=== PATIENT | male | born 1950 | race Caucasian/White ===

== ENCOUNTER 2022-07-14 14:06 | Emergency (ER) | payer MEDICARE ==
--- OUTSIDE RECORDS SUMMARY | 2022-07-14 14:25 | XMS REPORT | Continuity of Care Document ---
:1950 Author Organization [facility] t Address [address] [facility]. [address] [place] [address] Support Name Relationship Address Phone Gretta Joe Spouse [address] [place] [address] Gretta Joe Spouse [phone] [place] [address] Gretta Joe Spouse [address] [place] [address] GRETTA JOE X [address] [phone] [place] [address] ABHIJEET ARVIZU L X [address] [place] [address] L Abhijeet Arvizu Spouse [address] [place] [address] Care Team Providers Name Role Phone Sunshine GARCIA, Jose Juan Canales Primary Care Physician [phone] NEHA SEN Attending Clinician Unavailable JOON WOODY K.HMaria A Attending Clinician Unavailable LUIS BURGESS Attending Clinician Unavailable Sandra Goff Attending Clinician Aditya GARCIA, Luis Attending Clinician Annalise GARCIA, Joon ButtsHMaria A Attending Clinician Kassidy GARCIA, Janay Attending Clinician Quang GARCIA, Jackie Attending Clinician Olivier GARCIA PhD, Basilio Alexis Attending Clinician Jose Juan Gonsalez MD Attending Clinician Doctor Unassigned, Holstein Attending Clinician Unavailable Ogbechie_L Attending Clinician Unavailable Juvencio Luna MD Attending Clinician CATIE HILL Attending Clinician Unavailable CATIE HILL Attending Clinician Unavailable 2, Adc Lab Attending Clinician Unavailable JOSE JUAN GONSALEZ Attending Clinician Unavailable Jessica Hewitt MD Attending Clinician RADIOLOGY Attending Clinician Unavailable Radiology Attending Clinician Unavailable [facility] Fercho Erazo Attending Clinician [phone] GERA FREEMAN Attending Clinician Unavailable Gus Owens MD Attending Clinician GUS OWENS Attending Clinician Unavailable Pete JAVA SWING DEVELOPER- Gera GAINES Attending Clinician [phone] PENNY HALE Attending Clinician Unavailable Val Love DO Attending Clinician Calvin Castro Attending Clinician Draw, Clc-Bls Lab Attending Clinician Unavailable CALVIN FLORES Attending Clinician Unavailable Lorraine Galarza RN Attending Clinician Unavailable HANNAH WOOD Attending Clinician Unavailable JUVENCIO LUNA Attending Clinician Unavailable JUVENCIO LUNA Attending Clinician Unavailable MORGAN MAC Attending Clinician Unavailable Morgan Mac MD Attending Clinician Only, Adc Test Attending Clinician Unavailable Wild Kamara MD Attending Clinician Marko Dupont MD Attending Clinician Vls-Lab Attending Clinician Unavailable MARKO DUPONT Attending Clinician Unavailable Unknown, Attending Attending Clinician Unavailable Aftab Hall Attending Clinician Karan Turner MD Attending Clinician KARAN TURNER Attending Clinician Unavailable Saavna Angel LVN Attending Clinician Unavailable Beata Henry RN Attending Clinician Unavailable POPPY CLARKE Attending Clinician Unavailable Raghu Mcginnis Attending Clinician Moe Solorio MD Attending Clinician Poppy Clarke DO Attending Clinician Jay Jay Garcia DO Attending Clinician Lavinia GARCIA, Hardik Attending Clinician JESSICA HEWITT Attending Clinician Unavailable Lab, Ang - Db Attending Clinician Unavailable SHANNON ELY Attending Clinician Unavailable Nicolette Chen Attending Clinician Shannon Ely MD Attending Clinician NELLA MURPHY Attending Clinician Unavailable Pooja GARCIA, Nella López Attending Clinician [phone] Angel Luis Dia Attending Clinician ANGEL LUIS RODRIGUEZ Attending Clinician Unavailable MEHNAZ RODRIGUEZ Attending Clinician Unavailable MEHNAZ RODRIGUEZ Attending Clinician Unavailable Mehnaz Rodriguez DO Attending Clinician Romulo GARCIA, Jennifer Negron Attending Clinician [phone] GRAMM, NICOLE A Attending Clinician Unavailable Gramm JAVA SWING DEVELOPER, Nicole A Attending Clinician MOE SOLORIO Attending Clinician Unavailable Vickey Montejo MD Attending Clinician [phone] Abad Blue MD Attending Clinician Provider, Clc Ep Lab Attending Clinician Unavailable Anesthesia, Clc Ep Lab Attending Clinician Unavailable VICKEY MONTEJO Attending Clinician Unavailable Call, Clc Apac Phone Attending Clinician Unavailable Cierra Sequeira NP Attending Clinician Weston Attending Clinician Unavailable DONN MAHONEY Attending Clinician Unavailable Ogbechie_Daniel Admitting Clinician Unavailable CATIE HILL Admitting Clinician Unavailable MORGAN MAC Admitting Clinician Unavailable Morgan Mac MD Admitting Clinician POPPY CLARKE Admitting Clinician Unavailable Poppy Clarke DO Admitting Clinician JESSICA HEWITT Admitting Clinician Unavailable SHANNON ELY Admitting Clinician Unavailable Shannon Ely MD Admitting Clinician LUIS BURGESS Admitting Clinician Unavailable MOE SOLORIO Admitting Clinician Unavailable Moe Solorio MD Admitting Clinician Abad Blue MD Admitting Clinician Weston Admitting Clinician Unavailable DONN MAHONEY Admitting Clinician Unavailable Payers Payer Name Policy Type Policy Number Effective Date Expiration Date S beny MEDICARE PART A \\T\\ [id number] 2001 B 00:00:00 [employer] [id number] 2021 MEDICARE ADVANTAGE 00:00:00 [facility] DER4 2022 (MEDICARE 00:00:00 REPLACEMENT HMO) Problems Condition Condition Condition Status Onset Resolution Last Treating Co mments Source Name Details Category Date Date Treatment Clinician Date Diarrhea, Diarrhea, Disease Active Uni vers unspecifie unspecifie 6-23 it y of d type d type 00:00: [place] 00 Medical Branch Streptococ Streptococ Disease Active U nivers cus cus 6-23 ity of agalact[place] 00 [facility] Sepsis due Sepsis due Disease Active U nivers to to 6-23 ity of Streptococ Streptococ [place] c[place] group cus group 00 [facility] D D Branch 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 6-23 ity of of liver of liver 00:00: [place] without without 00 Medical ascites ascites Branch Other Other Disease Active Univers cirrhosis cirrhosis 6-23 ity of of liver of liver 00:00: [place] 00 Medical Branch Need for Need for Disease Active Unive rs hepatitis hepatitis 6-23 ity of C C 00:00: [place] screening screening 00 [facility] test test Branch Elevated Elevated Disease Active Unive rs SGOT (AST) SGOT (AST) 6-23 it y of 00:00: [place] 00 Medical Branch Bacteremia Bacteremia Disease Active U nivers 5-02 ity of 00:00: [place] 00 Medical Branch ANDRESSA (acute ANDRESSA (acute Disease Active U nivers kidney kidney 4-05 ity of injury) injury) 00:00: [place] 00 Medical Branch Frequent Frequent Disease Active 2020-03 Unive rs PVCs PVCs 0-27 ity of 00:00: [place] 00 Medical Branch Dizziness Dizziness Disease Active 2020-03 Uni vers 0-27 ity of 00:00: [place] 00 Medical Branch Cardiac Cardiac Disease Active 2020-03 Univers resynchron resynchron 0-27 it y of ization ization 00:00: [place] therapy therapy 00 Medical defibrilla defibrilla Br anch tor tor (ASSEMBLER FLEXIBLE LEADS-D) in (ASSEMBLER FLEXIBLE LEADS-D) in place place PAF PAF Disease Active 2020-03 Univers (paroxysma (paroxysma 0-27 it y of l atrial l atrial 00:00: [place] fibrillati fibrillati 00 Me dical on) on) Branch Frequent Frequent Disease Active 2020-03 Unive rs PVCs PVCs 0-27 ity of 00:00: [place] 00 Medical Branch CHF CHF Disease Active 2020-03 Univers (congestiv (congestiv 0-18 it y of e heart e heart 00:00: [place] failure), failure), 00 Medi drew NYHA class NYHA class Br anch I, acute I, acute on on chronic, chronic, combined combined Morbid Morbid Disease Active Univers obesity obesity 5-22 ity of with body with body 00:[place] mass index mass index 00 Me dical of 50 or of 50 or Branch higher higher Morbid Morbid Disease Active Univers obesity obesity 5-22 ity of with body with body 00:[place] mass index 00 Me dical of of Branch 40.0-49.9 40.0-49.9 Pre-op Pre-op Disease Active [facility] Chronic Chronic Disease Active [facility] pain [facility]09 [facility] disorder disorder 00:00: Medica l 00 Center Acute on Acute on Disease Active Unive rs chronic chronic 5-04 ity of combined combined 00:00: [place] systolic systolic 00 Medica l and and Branch diastolic diastolic heart heart failure failure Essential Essential Disease Active Uni vers hypertensi hypertensi 5-04 it y of on on 00:00: [place] 00 Medical Branch PVC PVC Disease Active Univers (premature (premature 4-29 it y of ventricula ventricula [place] Medical contractio contractio Br anch n) n) Metabolic Metabolic Disease Active Uni vers syndrome syndrome 4-29 ity of 00:00: [place] 00 Medical Branch PVC PVC Disease Active Univers (premature (premature 4-29 it y of ventricula ventricula [place] Medical contractio contractio Br anch n) n) Neck pain Neck pain Disease Active Uni vers 4-11 ity of 00:00: [place] [facility] Photophobi Photophobi Disease Active U nivers a a 4-11 ity of 00:00: [place] 00 Medical Branch Blurry Blurry Disease Active Univers vision vision 4-11 ity of 00:00: [place] Medical Branch Hypotensio Hypotensio Disease Active U nivers n n 4-11 ity of 00:00: [place] 00 Medical Branch 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:00: [place] diastolic diastolic 00 [facility] heart heart Branch failure failure CHF CHF Disease Active Univers exacerbati exacerbati 4-10 it y of on on 00:00: [place] 00 Medical Branch Hypoxia Hypoxia Disease Active Univers 4-07 ity of 00:00: [place] 00 Medical Branch COPD COPD Disease Active Univers (chronic (chronic 3-23 ity of obstructiv obstructiv 00:[place]: [place] e [place] 00 Medical pulmonary pulmonary Bran ch disease) disease) SOB SOB Disease Active Univers (shortness (shortness 3-20 it y of of breath) of breath) 00:00[place] Dyspnea Dyspnea Disease Active Univers 3-14 ity of 00:00: [place] 00 Medical Branch EDGARD EDGARD Disease Active Univers (obstructi (obstructi 3-13 it y of ve sleep ve sleep 00:00: [place] apnea) apnea) 00 Medical Branch Stroke Stroke Disease Active Univers 3-13 ity of 00:00: [place] 00 Medical Branch Obesity Obesity Disease Active Univers 3-13 ity of 00:00: [place] 00 Medical Branch Dyspnea Dyspnea Disease Active Univers and and 3-10 ity of respirator respirator 00:[place] y [place] 00 Medical abnormalit abnormalit Br anch ies ies Gastroesop Gastroesop Disease Active 2014-03 U nivers hageal hageal 03-27 ity of reflux reflux 00:00: [place] disease, disease, 00 Medica l unspecifie unspecifie Br anch d whether d whether esophagiti esophagiti s present s present Generalize Generalize Disease Active 2014-03 U nivers d anxiety d anxiety 03-27 ity of disorder disorder 00:00: [place] [facility] Gout Gout Disease Active 2014-03 Univers 03-27 ity of 00:00: [place] [facility] Hyperlipid Hyperlipid Disease Active 2014-03 U nivers emia emia 03-27 ity of 00:00: [place] [facility] Restless Restless Disease Active 2014-03 Unive rs leg leg 03-27 ity of syndrome syndrome 00:00: [place] [facility] Hypertensi Hypertensi Disease Active 2014-03 U nivers on on 03-27 ity of 00:00: [place] 00 [facility] Allergies, Adverse Reactions, Alerts Allergy Allergy Status Severity Reaction(s) Onset Inactive Treating Comm ents Source Name Type Date Date Clinician Penicill Propensi Active [facility]ness [facility] to Breath, 4-17 [facility] adverse Swelling 00:00: Medical reaction 00 Center s Penicill Propensi Active Shortness Of [facility] to Breath, 4-17 [facility] adverse Swelling 00:00: Medical reaction 00 Center s Penicill Propensi Active Shortness of 2014-03 Univers in ty to Breath 06 ity of adverse 00:00: [place] reaction [facility] PENICILL DRUG Active Anaphylaxis 2014-03 Uni vers IN INGREDI 03-17 ity of 00:00: [place] 00 [facility] Social History Social Habit Start Date Stop Date Quantity Comments Source Gender identity 2022-06-19 Identifies as [facility] (finding) History of tobacco Current smoker [facility] Sexual orientation [facility] Exposure to 2022-02-28 2022-03-10 Not sure University of SARS-CoV-2 (event) 00:00:00 10:38:00 [facility] [place] Education 2021-06-14 2021-06-14 14 University of 00:00:00 00:00:00 [facility] [place] Alcohol intake 2016-07-18 2016-07-18 Current drinker PERLA Ritter 00:00:00 00:00:00 of [facility] [place] [facility] (finding) Tobacco use and 2015-02-10 2015-02-10 Smokeless tobacco Un iversity of exposure 00:00:00 00:00:00 non-user [facility] [place] Sex Ass[birth year] At [birth year] PERLA Vanegass 00:00:00 00:00:00 [facility] Smoking Status Start Date Stop Date Source Tobacco smoking [facility] consumption unknown Ex-smoker 2015-02-10 00:00:00 2015-02-10 [facility] [place] 00:00:00 Medical Branch Medications Ordered Filled Start Stop Current Ordering Indication Dosage Frequency Signature Comments Components Source Medication Medication Date Date Medication? Clinician (SIG) Name Name mexiletine Yes [id number] 200mg Take 1 Univers 200 mg 4-17 capsule by ity of capsule 00:00: mouth [place] [address] every 8 Medical (eight) Branch hours. ATORVASTATI Yes [id number] 40mg TAKE 1 Univers N 40 mg 4-12 TABLET BY ity of tablet 00:00: MOUTH AT [place] [address] BEDTIME Medical Branch ATORVASTATI 0 Yes [id number] 40mg TAKE 1 Univers N 40 mg 4-12 TABLET BY ity of tablet 00:00: MOUTH AT [place] [address] BEDTIME [facility] Branch allopurinoL 2022-0 Yes [id number] 300mg Take 1 Univers 300 mg 4-04 tablet by ity of tablet 00:00: mouth in [place] the Medical morning. Branch allopurinoL 2022-0 Yes [id number] 300mg Take 1 Univers 300 mg 4-04 tablet by ity of tablet 00:00: mouth in [place] the Medical morning. Branch allopurinoL 2022-0 Yes [id number] 300mg Take 1 Univers 300 mg 4-04 tablet by ity of tablet 00:00: mouth in [place] the Medical morning. Branch GABAPENTIN 2022-0 Yes [id number] TAKE 1 Univers 300 mg 3-20 CAPSULE BY ity of capsule 00:00: MOUTH IN [place] [address] THE Medical MORNING Branch AND IN THE EVENING GABAPENTIN 2022-0 Yes [id number] TAKE 1 Univers 300 mg 3-20 CAPSULE BY ity of capsule 00:00: MOUTH IN [place] [address] THE Medical MORNING Branch AND IN THE EVENING GABAPENTIN 2022-0 Yes [id number] TAKE 1 Univers 300 mg 3-20 CAPSULE BY ity of capsule 00:00: MOUTH IN [place] THE Medical MORNING Branch AND IN THE EVENING GABAPENTIN 2023-0 Yes [id number] TAKE 1 Univers 300 mg 3-20 CAPSULE BY ity of capsule 00:00: MOUTH IN [place] THE Medical MORNING Branch AND IN THE EVENING GABAPENTIN 2023-0 Yes [id number] TAKE 1 Univers 300 mg 3-20 CAPSULE BY ity of capsule 00:00: MOUTH IN [place] THE Medical MORNING Branch AND IN THE EVENING GABAPENTIN 2023-0 Yes [id number] TAKE 1 Univers 300 mg 3-20 CAPSULE BY ity of capsule 00:00: MOUTH IN [place] THE Medical MORNING Branch AND IN THE EVENING KCL 20 mEq 2023-0 Yes [id number] TAKE 1 Univers tablet 3-17 TABLET BY ity of 00:00: MOUTH [place] EVERY Medical MORNING Branch AND IN THE EVENING KCL 20 mEq 2023-0 Yes [id number] TAKE 1 Univers tablet 3-17 TABLET BY ity of 00:00: MOUTH [place] EVERY Medical MORNING Branch AND IN THE EVENING KCL 20 mEq 2023-0 Yes [id number] TAKE 1 Univers tablet 3-17 TABLET BY ity of 00:00: MOUTH [place] EVERY Medical MORNING Branch AND IN THE EVENING KCL 20 mEq 2023-0 Yes [id number] TAKE 1 Univers tablet 3-17 TABLET BY ity of 00:00: MOUTH [place] EVERY Medical MORNING Branch AND IN THE EVENING KCL 20 mEq 2023-0 Yes [id number] TAKE 1 Univers tablet 3-17 TABLET BY ity of 00:00: MOUTH [place] EVERY Medical MORNING Branch AND IN THE EVENING KCL 20 mEq 2023-0 Yes [id number] TAKE 1 Univers tablet 3-17 TABLET BY ity of 00:00: MOUTH [place] EVERY Medical MORNING Branch AND IN THE EVENING KCL 20 mEq 2023-0 Yes [id number] TAKE 1 Univers tablet 3-17 TABLET BY ity of 00:00: MOUTH [place] EVERY Medical MORNING Branch AND IN THE EVENING ALLOPURINOL 2023-0 Yes [id number] 300mg TAKE 1 Univers 300 mg 2-27 TABLET BY ity of tablet 00:00: MOUTH [place] 00 DAILY Medical Branch ALLOPURINOL 2023-0 Yes [id number] 300mg TAKE 1 Univers 300 mg 2-27 TABLET BY ity of tablet 00:00: MOUTH [place] DAILY Medical Branch ALLOPURINOL 2023-0 Yes [id number] 300mg TAKE 1 Univers 300 mg 2-27 TABLET BY ity of tablet 00:00: MOUTH [place] 00 DAILY Medical Branch ALLOPURINOL 3-0 Yes [id number] 300mg TAKE 1 Univers 300 mg 2-27 TABLET BY ity of tablet 00:00: MOUTH [place] 00 DAILY Medical Branch ALLOPURINOL 3-0 Yes [id number] 300mg TAKE 1 Univers 300 mg 2-27 TABLET BY ity of tablet 00:00: MOUTH [place] 00 DAILY Medical Branch ALLOPURINOL 3-0 2023- No [id number] 300mg TAKE 1 Univers 300 mg 2-27 04-04 TABLET BY ity of tablet 00:00: 00:00 MOUTH [place] 00 :00 DAILY Medical Branch WARFARIN 2023-0 Yes [id number] 7.5mg TAKE 1 U nivers 7.5 mg 1-19 TABLET BY ity of tablet 00:00: MOUTH [place] 00 EVERY Medical EVENING Branch WARFARIN 2023-0 Yes [id number] 7.5mg TAKE 1 U nivers 7.5 mg 1-19 TABLET BY ity of tablet 00:00: MOUTH [place] 00 EVERY Medical EVENING Branch WARFARIN 2023-0 Yes [id number] 7.5mg TAKE 1 U nivers 7.5 mg 1-19 TABLET BY ity of tablet 00:00: MOUTH [place] 00 EVERY Medical EVENING Branch WARFARIN 2023-0 Yes [id number] 7.5mg TAKE 1 U nivers 7.5 mg 1-19 TABLET BY ity of tablet 00:00: MOUTH [place] 00 EVERY Medical EVENING Branch WARFARIN 2023-0 Yes [id number] 7.5mg TAKE 1 U nivers 7.5 mg 1-19 TABLET BY ity of tablet 00:00: MOUTH [place] 00 EVERY Medical EVENING Branch WARFARIN 2023-0 Yes [id number] 7.5mg TAKE 1 U nivers 7.5 mg 1-19 TABLET BY ity of tablet 00:00: MOUTH [place] 00 EVERY Medical EVENING Branch WARFARIN 2023-0 Yes [id number] 7.5mg TAKE 1 U nivers 7.5 mg 1-19 TABLET BY ity of tablet 00:00: MOUTH [place] 00 EVERY Medical EVENING Branch WARFARIN 2023-0 Yes [id number] 7.5mg TAKE 1 U nivers 7.5 mg 1-19 TABLET BY ity of tablet 00:00: MOUTH [place] 00 EVERY Medical EVENING Branch WARFARIN 2023-0 Yes [id number] 7.5mg TAKE 1 U nivers 7.5 mg 1-19 TABLET BY ity of tablet 00:00: MOUTH [place] 00 EVERY Medical EVENING Branch WARFARIN 2023-0 Yes [id number] 7.5mg TAKE 1 U nivers 7.5 mg 1-19 TABLET BY ity of tablet 00:00: MOUTH [place] 00 EVERY Medical EVENING Branch WARFARIN 2023-0 Yes [id number] 7.5mg TAKE 1 U nivers 7.5 mg 1-19 TABLET BY ity of tablet 00:00: MOUTH [place] 00 EVERY Medical EVENING Branch WARFARIN 2023-0 Yes [id number] 7.5mg TAKE 1 U nivers 7.5 mg 1-19 TABLET BY ity of tablet 00:00: MOUTH [place] 00 EVERY Medical EVENING Branch WARFARIN 2023-0 Yes [id number] 7.5mg TAKE 1 U nivers 7.5 mg 1-19 TABLET BY ity of tablet 00:00: MOUTH [place] 00 EVERY Medical EVENING Branch WARFARIN 2023-0 Yes [id number] 7.5mg TAKE 1 U nivers 7.5 mg 1-19 TABLET BY ity of tablet 00:00: MOUTH [place] 00 EVERY Medical EVENING Branch gabapentin 2023-0 Yes [id number] 300mg Take 1 Univers 300 mg 1-17 capsule by ity of capsule 00:00: mouth in [place] 00 the Medical morning Branch and 1 capsule in the evening. gabapentin 2023-0 Yes [id number] 300mg Take 1 Univers 300 mg 1-17 capsule by ity of capsule 00:00: mouth in [place] 00 the Medical morning Branch and 1 capsule in the evening. gabapentin 2023-0 Yes [id number] 300mg Take 1 Univers 300 mg 1-17 capsule by ity of capsule 00:00: mouth in [place] 00 the Medical morning Branch and 1 capsule in the evening. gabapentin 2023-0 Yes [id number] 300mg Take 1 Univers 300 mg 1-17 capsule by ity of capsule 00:00: mouth in [place] 00 the Medical morning Branch and 1 capsule in the evening. gabapentin 2023-0 Yes [id number] 300mg Take 1 Univers 300 mg 1-17 capsule by ity of capsule 00:00: mouth in [place] 00 the Medical morning Branch and 1 capsule in the evening. gabapentin 2023-0 Yes [id number] 300mg Take 1 Univers 300 mg 1-17 capsule by ity of capsule 00:00: mouth in [place] 00 the Medical morning Branch and 1 capsule in the evening. gabapentin 2022-0 Yes [id number] 300mg Take 1 Univers 300 mg 1-17 capsule by ity of capsule 00:00: mouth in [place] 00 the Medical morning Branch and 1 capsule in the evening. gabapentin 3-0 Yes [id number] 300mg Take 1 Univers 300 mg 1-17 capsule by ity of capsule 00:00: mouth in [place] 00 the Medical morning Branch and 1 capsule in the evening. gabapentin 2022-0 2023- No [id number] 300mg Take 1 Univers 300 mg 1-17 03-20 capsule by ity of capsule 00:00: 00:00 mouth in [place] 00 :00 the Medical morning Branch and 1 capsule in the evening. warfarin 2022-0 Yes [id number] 7.5mg TAKE 1 U nivers 7.5 mg 1-02 TABLET BY ity of tablet 00:00: MOUTH [place] 00 EVERY Medical EVENING Branch warfarin 3-0 Yes [id number] 7.5mg TAKE 1 U nivers 7.5 mg 1-02 TABLET BY ity of tablet 00:00: MOUTH [place] 00 EVERY Medical EVENING Branch warfarin 3-0 Yes [id number] 7.5mg TAKE 1 U nivers 7.5 mg 1-02 TABLET BY ity of tablet 00:00: MOUTH [place] 00 EVERY Medical EVENING Branch warfarin 3-0 Yes [id number] 7.5mg TAKE 1 U nivers 7.5 mg 1-02 TABLET BY ity of tablet 00:00: MOUTH [place] 00 EVERY Medical EVENING Branch warfarin 3-0 3- No [id number] 7.5mg TAKE 1 Univers 7.5 mg 1-02 -19 TABLET BY ity of tablet 00:00: 00:00 MOUTH [place] 00 :00 EVERY Medical EVENING Branch spironolact 2021-2021- No 12.5mg Take 12.5 Univers one 25 mg 2-22 12-22 mg by ity of tablet 16:00: 00:00 mouth in [place] 04 :00 the Medical morning. Branch spironolact 2021-03- No 12.5mg Take 12.5 Univers one 25 mg 2-22 12-22 mg by ity of tablet 16:00: 00:00 mouth in [place] 04 :00 the Medical morning. Branch bumetanide 2021-03 Yes 2mg Take 2 mg Un jeremie 2 mg tablet 2-22 by mouth ity of 15:47: daily. 3 [place] 58 mg AM and Medical 2 mg PM. Branch bumetanide 2021-03 Yes 2mg Take 2 mg Un jeremie 2 mg tablet 2-22 by mouth ity of 15:47: daily. 3 [place] 58 mg AM and Medical 2 mg PM. Branch bumetanide 2021-03 Yes 2mg Take 2 mg Un jeremie 2 mg tablet 2-22 by mouth ity of 15:47: daily. 3 [place] 58 mg AM and Medical 2 mg PM. Branch bumetanide 2021-03 Yes 2mg Take 2 mg Un jeremie 2 mg tablet 2-22 by mouth ity of 15:47: daily. 3 [place] 58 mg AM and Medical 2 mg PM. Branch bumetanide 2021-03 Yes 2mg Take 2 mg Un jeremie 2 mg tablet 2-22 by mouth ity of 15:47: daily. 3 [place] 58 mg AM and Medical 2 mg PM. Branch bumetanide 2021-03 Yes 2mg Take 2 mg Un jeremie 2 mg tablet 2-22 by mouth ity of 15:47: daily. 3 [place] 58 mg AM and Medical 2 mg PM. Branch bumetanide 2021-03 Yes 2mg Take 2 mg Un jeremie 2 mg tablet 2-22 by mouth ity of 15:47: daily. 3 [place] 58 mg AM and Medical 2 mg PM. Branch bumetanide 2021-03 Yes 2mg Take 2 mg Un jeremie 2 mg tablet 2-22 by mouth ity of 15:47: daily. 3 [place] 58 mg AM and Medical 2 mg PM. Branch bumetanide 2021-03 Yes 2mg Take 2 mg Un jeremie 2 mg tablet 2-22 by mouth ity of 15:47: daily. 3 [place] 58 mg AM and Medical 2 mg PM. Branch bumetanide 2021-03 Yes 2mg Take 2 mg Un jeremie 2 mg tablet 2-22 by mouth ity of 15:47: daily. 3 [place] 58 mg AM and Medical 2 mg PM. Branch bumetanide 2021-03 Yes 2mg Take 2 mg Un jeremie 2 mg tablet 2-22 by mouth ity of 15:47: daily. 3 [place] 58 mg AM and Medical 2 mg PM. Branch bumetanide 2021-03 Yes 2mg Take 2 mg Un jeremie 2 mg tablet 2-22 by mouth ity of 15:47: daily. 3 [place] 58 mg AM and Medical 2 mg PM. Branch bumetanide 2021-03 Yes 2mg Take 2 mg Un jeremie 2 mg tablet 2-22 by mouth ity of 15:47: daily. 3 [place] 58 mg AM and Medical 2 mg PM. Branch bumetanide 2021-03 Yes 2mg Take 2 mg Un jeremie 2 mg tablet 2-22 by mouth ity of 15:47: daily. 3 [place] 58 mg AM and Medical 2 mg PM. Branch bumetanide 2021-03 Yes 2mg Take 2 mg Un jeremie 2 mg tablet 2-22 by mouth ity of 15:47: daily. 3 [place] 58 mg AM and Medical 2 mg PM. Branch bumetanide 2021-03 Yes 2mg Take 2 mg Un jeremie 2 mg tablet 2-22 by mouth ity of 15:47: daily. 3 [place] 58 mg AM and Medical 2 mg PM. Branch bumetanide 2021-03 Yes 2mg Take 2 mg Un jeremie 2 mg tablet 2-22 by mouth ity of 15:47: daily. 3 [place] 58 mg AM and Medical 2 mg PM. Branch bumetanide 2021-03 Yes 2mg Take 2 mg Un jeremie 2 mg tablet 2-22 by mouth ity of 15:47: daily. 3 [place] 58 mg AM and Medical 2 mg PM. Branch bumetanide 2021-03 Yes 2mg Take 2 mg Un jeremie 2 mg tablet 2-22 by mouth ity of 15:47: daily. 3 [place] 58 mg AM and Medical 2 mg PM. Branch bumetanide 2021-03 Yes 2mg Take 2 mg [facility] 2 mg tablet 2-22 by mouth ity of 15:47: daily. 3 [place] 58 mg AM and Medical 2 mg PM. Branch bumetanide 2021-03 Yes 2mg Take 2 mg [facility] 2 mg tablet 2-22 by mouth ity of 15:47: daily. 3 [place] 58 mg AM and Medical 2 mg PM. Branch bumetanide 2021-03 Yes 2mg Take 2 mg [facility] 2 mg tablet 2-22 by mouth ity of 15:47: daily. 3 [place] 58 mg AM and Medical 2 mg PM. Branch spironolact 2021-03 Yes [id number] 25mg Take 1 [facility] 25 mg 2-22 tablet by ity o f tablet 00:00: mouth in [place] 00 the Medical morning. Branch spironolact 2021-03 Yes [id number] 25mg Take 1 [facility] one 25 mg 2-22 tablet by ity o f tablet 00:00: mouth in [place] 00 the Medical morning. Branch spironolact 2021-03 Yes [id number] 25mg Take 1 [facility] one 25 mg 2-22 tablet by ity o f tablet 00:00: mouth in [place] 00 the Medical morning. Branch spironolact 2021-03 Yes [id number] 25mg Take 1 [facility] one 25 mg 2-22 tablet by ity o f tablet 00:00: mouth in [place] 00 the Medical morning. Branch spironolact 2021-03 Yes [id number] 25mg Take 1 [facility] one 25 mg 2-22 tablet by ity o f tablet 00:00: mouth in [place] the Medical morning. Branch spironolact 2021-03 Yes [id number] 25mg Take 1 [facility] one 25 mg 2-22 tablet by ity o f tablet 00:00: mouth in [place] the Medical morning. Branch spironolact 2021-03 Yes [id number] 25mg Take 1 [facility] one 25 mg 2-22 tablet by ity o f tablet 00:00: mouth in [place] the Medical morning. Branch spironolact 2021-03 Yes [id number] 25mg Take 1 [facility] one 25 mg 2-22 tablet by ity o f tablet 00:00: mouth in [place] the Medical morning. Branch spironolact 2021-03 Yes [id number] 25mg Take 1 [facility] one 25 mg 2-22 tablet by ity o f tablet 00:00: mouth in [place] 00 the Medical morning. Branch spironolact 2021-03 Yes [id number] 25mg Take 1 [facility] one 25 mg 2-22 tablet by ity o f tablet 00:00: mouth in [place] 00 the Medical morning. Branch spironolact 2021-03 Yes [id number] 25mg Take 1 [facility] one 25 mg 2-22 tablet by ity o f tablet 00:00: mouth in [place] 00 the Medical morning. Branch spironolact 2021-03 Yes [id number] 25mg Take 1 [facility] one 25 mg 2-22 tablet by ity o f tablet 00:00: mouth in [place] the Medical morning. Branch spironolact 2021-03 Yes [id number] 25mg Take 1 [facility] one 25 mg 2-22 tablet by ity o f tablet 00:00: mouth in [place] the Medical morning. Branch spironolact 2021-03 Yes [id number] 25mg Take 1 [facility] one 25 mg 2-22 tablet by ity o f tablet 00:00: mouth in [place] the Medical morning. Branch spironolact 2021-03 Yes [id number] 25mg Take 1 [facility] one 25 mg 2-22 tablet by ity o f tablet 00:00: mouth in [place] the Medical morning. Branch spironolact 2021-03 Yes [id number] 25mg Take 1 [facility] one 25 mg 2-22 tablet by ity o f tablet 00:00: mouth in [place] the Medical morning. Branch spironolact 2021-03 Yes [id number] 25mg Take 1 [facility] one 25 mg 2-22 tablet by ity o f tablet 00:00: mouth in [place] the Medical morning. Branch spironolact 2021-03 Yes [id number] 25mg Take 1 [facility] one 25 mg 2-22 tablet by ity o f tablet 00:00: mouth in [place] the Medical morning. Branch spironolact 2021-03 Yes [id number] 25mg Take 1 [facility] one 25 mg 2-22 tablet by ity o f tablet 00:00: mouth in [place] the Medical morning. Branch spironolact 2021-03 Yes [id number] 25mg Take 1 [facility] one 25 mg 2-22 tablet by ity o f tablet 00:00: mouth in [place] the Medical morning. Branch spironolact 2021-03 Yes [id number] 25mg Take 1 [facility] one 25 mg 2-22 tablet by ity o f tablet 00:00: mouth in [place] the Medical morning. Branch spironolact 2021-03 Yes [id number] 25mg Take 1 [facility] one 25 mg 2-22 tablet by ity o f tablet 00:00: mouth in [place] 00 the Medical morning. Branch KCL 20 mEq 2021-03 Yes [id number] 20meq Take 1 [facility] tablet 2-16 tablet by ity of 00:00: mouth in [place] 00 the Medical morning Branch and 1 tablet in the evening. KCL 20 mEq 2-1 Yes [id number] 20meq Take 1 [facility] tablet 2-16 tablet by ity of 00:00: mouth in [place] 00 the Medical morning Branch and 1 tablet in the evening. KCL 20 mEq 2-1 Yes [id number] 20meq Take 1 [facility] tablet 2-16 tablet by ity of 00:00: mouth in [place] 00 the Medical morning Branch and 1 tablet in the evening. KCL 20 mEq 2-1 Yes [id number] 20meq Take 1 [facility] tablet 2-16 tablet by ity of 00:00: mouth in [place] [address] the Medical morning Branch and 1 tablet in the evening. KCL 20 mEq 2-1 Yes [id number] 20meq Take 1 [facility] tablet 2-16 tablet by ity of 00:00: mouth in [place] [address] the Medical morning Branch and 1 tablet in the evening. KCL 20 mEq 2-1 Yes [id number] 20meq Take 1 [facility] tablet 2-16 tablet by ity of 00:00: mouth in [place] 00 the Medical morning Branch and 1 tablet in the evening. KCL 20 mEq 2-1 Yes [id number] 20meq Take 1 [facility] tablet 2-16 tablet by ity of 00:00: mouth in [place] [address] the Medical morning Branch and 1 tablet in the evening. KCL 20 mEq 2-1 Yes [id number] 20meq Take 1 [facility] tablet 2-16 tablet by ity of 00:00: mouth in [place] [address] the Medical morning Branch and 1 tablet in the evening. KCL 20 mEq 2-1 Yes [id number] 20meq Take 1 [facility] tablet 2-16 tablet by ity of 00:00: mouth in [place] 00 the Medical morning Branch and 1 tablet in the evening. KCL 20 mEq 2-1 Yes [id number] 20meq Take 1 [facility] tablet 2-16 tablet by ity of 00:00: mouth in [place] [address] the Medical morning Branch and 1 tablet in the evening. KCL 20 mEq 2-1 Yes [id number] 20meq Take 1 [facility] tablet 2-16 tablet by ity of 00:00: mouth in [place] [address] the Medical morning Branch and 1 tablet in the evening. KCL 20 mEq 2-1 Yes [id number] 20meq Take 1 [facility] tablet 2-16 tablet by ity of 00:00: mouth in [place] [address] the Medical morning Branch and 1 tablet in the evening. KCL 20 mEq 2021-03 Yes [id number] 20meq Take 1 [facility] tablet 2-16 tablet by ity of 00:00: mouth in [place] 00 the Medical morning Branch and 1 tablet in the evening. KCL 20 mEq 2021-03 Yes [id number] 20meq Take 1 [facility] tablet 2-16 tablet by ity of 00:00: mouth in [place] 00 the Medical morning Branch and 1 tablet in the evening. KCL 20 mEq 2021-03 Yes [id number] 20meq Take 1 [facility] tablet 2-16 tablet by ity of 00:00: mouth in [place] 00 the Medical morning Branch and 1 tablet in the evening. KCL 20 mEq 2021-03- No [id number] 20meq Take 1 [facility] tablet 2-16 03-17 tablet by ity of 00:00: 00:00 mouth in [place] 00 :00 the Medical morning Branch and 1 tablet in the evening. GABAPENTIN 2021-03 Yes [id number] TAKE 2 [facility] 300 mg 2-14 CAPSULES ity of capsule 00:00: BY MOUTH [place] 00 TWICE Medical DAILY. Branch PRIMIDONE 2021-03 Yes [id number] TAKE 2 [facility] 50 mg 2-14 TABLETS BY ity of tablet 00:00: MOUTH [place] 00 EVERY 8 Medical HOURS Branch GABAPENTIN 2021- Yes [id number] TAKE 2 [facility] 300 mg 2-14 CAPSULES ity of capsule 00:00: BY MOUTH [place] 00 TWICE Medical DAILY. Branch PRIMIDONE 2021-03 Yes [id number] TAKE 2 [facility] n[facility] 50 mg 2-14 TABLETS BY ity of tablet 00:00: MOUTH [place] 00 EVERY 8 Medical HOURS Branch PRIMIDONE 2021- Yes [id number] TAKE 2 [facility] n[facility] 50 mg 2-14 TABLETS BY ity of tablet 00:00: MOUTH [place] 00 EVERY 8 Medical HOURS Branch PRIMIDONE 2021- Yes [id number] TAKE 2 [facility] n[facility] 50 mg 2-14 TABLETS BY ity of tablet 00:00: MOUTH [place] 00 EVERY 8 Medical HOURS Branch PRIMIDONE 2021- Yes [id number] TAKE 2 [facility] n[facility] 50 mg 2-14 TABLETS BY ity of tablet 00:00: MOUTH [place] 00 EVERY 8 Medical HOURS Branch PRIMIDONE 2021- Yes [id number] TAKE 2 [facility] n[facility] 50 mg 2-14 TABLETS BY ity of tablet 00:00: MOUTH [place] 00 EVERY 8 Medical HOURS Branch PRIMIDONE 2021- Yes [id number] TAKE 2 [facility] 50 mg 2-14 TABLETS BY ity of tablet 00:00: MOUTH [place] 00 EVERY 8 Medical HOURS Branch PRIMIDONE 2021- Yes [id number] TAKE 2 [facility] n[facility] 50 mg 2-14 TABLETS BY ity of tablet 00:00: MOUTH [place] 00 EVERY 8 Medical HOURS Branch PRIMIDONE 2021- Yes [id number] TAKE 2 [facility] 50 mg 2-14 TABLETS BY ity of tablet 00:00: MOUTH [place] 00 EVERY 8 Medical HOURS Branch PRIMIDONE 2021- Yes [id number] TAKE 2 [facility] 50 mg 2-14 TABLETS BY ity of tablet 00:00: MOUTH [place] 00 EVERY 8 Medical HOURS Branch PRIMIDONE 2021- Yes [id number] TAKE 2 [facility] 50 mg 2-14 TABLETS BY ity of tablet 00:00: MOUTH [place] 00 EVERY 8 Medical HOURS Branch PRIMIDONE 2021- Yes [id number] TAKE 2 [facility] n[facility] 50 mg 2-14 TABLETS BY ity of tablet 00:00: MOUTH [place] 00 EVERY 8 Medical HOURS Branch PRIMIDONE 2021- Yes [id number] TAKE 2 [facility] 50 mg 2-14 TABLETS BY ity of tablet 00:00: MOUTH [place] 00 EVERY 8 Medical HOURS Branch PRIMIDONE 2021- Yes [id number] TAKE 2 [facility] 50 mg 2-14 TABLETS BY ity of tablet 00:00: MOUTH [place] 00 EVERY 8 Medical HOURS Branch PRIMIDONE 2021- Yes [id number] TAKE 2 [facility] 50 mg 2-14 TABLETS BY ity of tablet 00:00: MOUTH [place] 00 EVERY 8 Medical HOURS Branch PRIMIDONE 2021- Yes [id number] TAKE 2 [facility] 50 mg 2-14 TABLETS BY ity of tablet 00:00: MOUTH [place] 00 EVERY 8 Medical HOURS Branch PRIMIDONE 2021- Yes [id number] TAKE 2 [facility] 50 mg 2-14 TABLETS BY ity of tablet 00:00: MOUTH [place] 00 EVERY 8 Medical HOURS Branch PRIMIDONE 2021- Yes [id number] TAKE 2 [facility] 50 mg 2-14 TABLETS BY ity of tablet 00:00: MOUTH [place] 00 EVERY 8 Medical HOURS Branch PRIMIDONE 2021- Yes [id number] TAKE 2 [facility] 50 mg 2-14 TABLETS BY ity of tablet 00:00: MOUTH [place] 00 EVERY 8 Medical HOURS Branch GABAPENTIN 2021-1 Yes [id number] TAKE 2 [facility] 300 mg 2-14 CAPSULES ity of capsule 00:00: BY MOUTH [place] 00 TWICE Medical DAILY. Branch PRIMIDONE 2021- Yes [id number] TAKE 2 [facility] 50 mg 2-14 TABLETS BY ity of tablet 00:00: MOUTH [place] 00 EVERY 8 Medical HOURS Branch PRIMIDONE 2021- Yes [id number] TAKE 2 [facility] 50 mg 2-14 TABLETS BY ity of tablet 00:00: MOUTH [place] 00 EVERY 8 Medical HOURS Branch GABAPENTIN 2021-1 Yes [id number] TAKE 2 [facility] 300 mg 2-14 CAPSULES ity of capsule 00:00: BY MOUTH [place] 00 TWICE Medical DAILY. Branch PRIMIDONE 2021- Yes [id number] TAKE 2 [facility] 50 mg 2-14 TABLETS BY ity of tablet 00:00: MOUTH [place] 00 EVERY 8 Medical HOURS Branch GABAPENTIN 2021- Yes [id number] TAKE 2 [facility] 300 mg 2-14 CAPSULES ity of capsule 00:00: BY MOUTH [place] 00 TWICE Medical DAILY. Branch PRIMIDONE 2021- Yes [id number] TAKE 2 [facility] 50 mg 2-14 TABLETS BY ity of tablet 00:00: MOUTH [place] 00 EVERY 8 Medical HOURS Branch GABAPENTIN 2021- Yes [id number] TAKE 2 [facility] 300 mg 2-14 CAPSULES ity of capsule 00:00: BY MOUTH [place] 00 TWICE Medical DAILY. Branch PRIMIDONE 2021- Yes [id number] TAKE 2 [facility] 50 mg 2-14 TABLETS BY ity of tablet 00:00: MOUTH [place] 00 EVERY 8 Medical HOURS Branch GABAPENTIN 2-1 Yes [id number] TAKE 2 [facility] 300 mg 2-14 CAPSULES ity of capsule 00:00: BY MOUTH [place] 00 TWICE Medical DAILY. Branch PRIMIDONE 2021- Yes [id number] TAKE 2 [facility] 50 mg 2-14 TABLETS BY ity of tablet 00:00: MOUTH [place] 00 EVERY 8 Medical HOURS Branch GABAPENTIN 2-1 Yes [id number] TAKE 2 [facility] 300 mg 2-14 CAPSULES ity of capsule 00:00: BY MOUTH [place] 00 TWICE Medical DAILY. Branch PRIMIDONE 2021- Yes [id number] TAKE 2 [facility] 50 mg 2-14 TABLETS BY ity of tablet 00:00: MOUTH [place] 00 EVERY 8 Medical HOURS Branch GABAPENTIN 2021-03 Yes [id number] TAKE 2 [facility] 300 mg 2-14 CAPSULES ity of capsule 00:00: BY MOUTH [place] 00 TWICE Medical DAILY. Branch PRIMIDONE 2021-03 Yes [id number] TAKE 2 [facility] 50 mg 2-14 TABLETS BY ity of tablet 00:00: MOUTH [place] 00 EVERY 8 Medical HOURS Branch GABAPENTIN 2021-03 2023- No [id number] TAKE 2 [facility] 300 mg 2-14 01-17 CAPSULES ity of capsule 00:00: 00:00 BY MOUTH [place] 00 :00 TWICE Medical DAILY. Branch warfarin 2021-03 Yes [id number] 7.5mg TAKE 1 [facility] 7.5 mg 1-30 TABLET BY ity of tablet 00:00: MOUTH [place] 00 EVERY Medical EVENING Branch warfarin 2021-03 Yes [id number] 7.5mg TAKE 1 [facility] 7.5 mg 1-30 TABLET BY ity of tablet 00:00: MOUTH [place] 00 EVERY Medical EVENING Branch warfarin 2021-03 Yes [id number] 7.5mg TAKE 1 [facility] 7.5 mg 1-30 TABLET BY ity of tablet 00:00: MOUTH [place] 00 EVERY Medical EVENING Branch warfarin 2021-03 Yes [id number] 7.5mg TAKE 1 [facility] 7.5 mg 1-30 TABLET BY ity of tablet 00:00: MOUTH [place] 00 EVERY Medical EVENING Branch warfarin 2021-03 Yes [id number] 7.5mg TAKE 1 [facility] 7.5 mg 1-30 TABLET BY ity of tablet 00:00: MOUTH [place] 00 EVERY Medical EVENING Branch warfarin 2021-03 Yes [id number] 7.5mg TAKE 1 [facility] 7.5 mg 1-30 TABLET BY ity of tablet 00:00: MOUTH [place] 00 EVERY Medical EVENING Branch warfarin 2021-03 Yes [id number] 7.5mg TAKE 1 [facility] 7.5 mg 1-30 TABLET BY ity of tablet 00:00: MOUTH [place] 00 EVERY Medical EVENING Branch warfarin 2021-03 Yes [id number] 7.5mg TAKE 1 [facility] 7.5 mg 1-30 TABLET BY ity of tablet 00:00: MOUTH [place] 00 EVERY Medical EVENING Branch warfarin 2021-03 Yes [id number] 7.5mg TAKE 1 [facility] 7.5 mg 1-30 TABLET BY ity of tablet 00:00: MOUTH [place] 00 EVERY Medical EVENING Branch warfarin 2021-03 Yes [id number] 7.5mg TAKE 1 [facility] 7.5 mg 1-30 TABLET BY ity of tablet 00:00: MOUTH [place] 00 EVERY Medical EVENING Branch warfarin 2021-03 Yes [id number] 7.5mg TAKE 1 [facility] 7.5 mg 1-30 TABLET BY ity of tablet 00:00: MOUTH 00 EVERY Medical EVENING Branch warfarin 2021-03 Yes [id number] 7.5mg TAKE 1 [facility] 7.5 mg 1-30 TABLET BY ity of tablet 00:00: MOUTH [place] 00 EVERY Medical EVENING Branch warfarin 2021-03 Yes [id number] 7.5mg TAKE 1 [facility] 7.5 mg 1-30 TABLET BY ity of tablet 00:00: MOUTH [place] 00 EVERY Medical EVENING Branch warfarin 2021-03 Yes [id number] 7.5mg TAKE 1 [facility] 7.5 mg 1-30 TABLET BY ity of tablet 00:00: MOUTH 00 EVERY Medical EVENING Branch warfarin 2021-03 Yes [id number] 7.5mg TAKE 1 [facility] 7.5 mg 1-30 TABLET BY ity of tablet 00:00: MOUTH [place] 00 EVERY Medical EVENING Branch warfarin 2021-03 Yes [id number] 7.5mg TAKE 1 [facility] 7.5 mg 1-30 TABLET BY ity of tablet 00:00: MOUTH [place] 00 EVERY Medical EVENING Branch warfarin 2021-03 Yes [id number] 7.5mg TAKE 1 [facility] 7.5 mg 1-30 TABLET BY ity of tablet 00:00: MOUTH 00 EVERY Medical EVENING Branch warfarin 2021-03 Yes [id number] 7.5mg TAKE 1 [facility] 7.5 mg 1-30 TABLET BY ity of tablet 00:00: MOUTH [place] 00 EVERY Medical EVENING Branch warfarin 2021-03 Yes [id number] 7.5mg TAKE 1 [facility] 7.5 mg 1-30 TABLET BY ity of tablet 00:00: MOUTH [place] 00 EVERY Medical EVENING Branch warfarin 2021-03- No [id number] 7.5mg TAKE 1 [facility] 7.5 mg 1-30 03-13 TABLET BY ity of tablet 00:00: 00:00 MOUTH [place] 00 :00 EVERY Medical EVENING Branch benzonatate 2021-03 Yes [id number] 200mg Take 1 [facility] 200 mg 1-28 capsule by ity of capsule 00:00: mouth (three) Medical times Branch daily as needed for Cough. benzonatate 2021-03 Yes [id number] 200mg Take 1 [facility] 200 mg 1-28 capsule by ity of capsule 00:00: mouth (three) Medical times Branch daily as needed for Cough. benzonatate 2021-03 Yes [id number] 200mg Take 1 [facility] 200 mg 1-28 capsule by ity of capsule 00:00: mouth (three) Medical times Branch daily as needed for Cough. benzonatate 2021-03 Yes [id number] 200mg Take 1 [facility] 200 mg 1-28 capsule by ity of capsule 00:00: mouth (three) Medical times Branch daily as needed for Cough. benzonatate 2021-03 Yes [id number] 200mg Take 1 [facility] 200 mg 1-28 capsule by ity of capsule 00:00: mouth (three) Medical times Branch daily as needed for Cough. benzonatate 2021-03 Yes [id number] 200mg Take 1 [facility] 200 mg 1-28 capsule by ity of capsule 00:00: mouth (three) Medical times Branch daily as needed for Cough. benzonatate 2021-03 Yes [id number] 200mg Take 1 [facility] 200 mg 1-28 capsule by ity of capsule 00:00: mouth (three) Medical times Branch daily as needed for Cough. benzonatate 2021-03 Yes [id number] 200mg Take 1 [facility] 200 mg 1-28 capsule by ity of capsule 00:00: mouth (three) Medical times Branch daily as needed for Cough. benzonatate 2021-03 Yes [id number] 200mg Take 1 [facility] 200 mg 1-28 capsule by ity of capsule 00:00: mouth (three) Medical times Branch daily as needed for Cough. benzonatate 2021-03 Yes [id number] 200mg Take 1 [facility] 200 mg 1-28 capsule by ity of capsule 00:00: mouth (three) Medical times Branch daily as needed for Cough. benzonatate 2021-03 Yes [id number] 200mg Take 1 [facility] 200 mg 1-28 capsule by ity of capsule 00:00: mouth (three) Medical times Branch daily as needed for Cough. benzonatate 2021-03 Yes [id number] 200mg Take 1 [facility] 200 mg 1-28 capsule by ity of capsule 00:00: mouth 3 (three) Medical times Branch daily as needed for Cough. benzonatate 2021-03 Yes [id number] 200mg Take 1 [facility] 200 mg 1-28 capsule by ity of capsule 00:00: mouth 3 (three) Medical times Branch daily as needed for Cough. benzonatate 2021-03 Yes [id number] 200mg Take 1 [facility] 200 mg 1-28 capsule by ity of capsule 00:00: mouth 3 (three) Medical times Branch daily as needed for Cough. benzonatate 2021-03 Yes [id number] 200mg Take 1 [facility] 200 mg 1-28 capsule by ity of capsule 00:00: mouth 3 (three) Medical times Branch daily as needed for Cough. benzonatate 2021-03 Yes [id number] 200mg Take 1 [facility] 200 mg 1-28 capsule by ity of capsule 00:00: mouth 3 (three) Medical times Branch daily as needed for Cough. benzonatate 2021-03 Yes [id number] 200mg Take 1 [facility] 200 mg 1-28 capsule by ity of capsule 00:00: mouth 3 (three) Medical times Branch daily as needed for Cough. benzonatate 2021-03 Yes [id number] 200mg Take 1 [facility] 200 mg 1-28 capsule by ity of capsule 00:00: mouth 3 (three) Medical times Branch daily as needed for Cough. benzonatate 2021-03 Yes [id number] 200mg Take 1 [facility] 200 mg 1-28 capsule by ity of capsule 00:00: mouth 3 (three) Medical times Branch daily as needed for Cough. cephALEXin 2021-03 Yes [id number] 500mg Take 1 [facility] 500 mg 1-28 capsule by ity of capsule 00:00: mouth 4 (four) Medical times Branch daily. benzonatate 2021-03 Yes [id number] 200mg Take 1 [facility] 200 mg 1-28 capsule by ity of capsule 00:00: mouth 3 (three) Medical times Branch daily as needed for Cough. cephALEXin 2021-03 Yes [id number] 500mg Take 1 [facility] 500 mg 1-28 capsule by ity of capsule 00:00: mouth 4 (four) Medical times Branch daily. benzonatate 2021- Yes [id number] 200mg Take 1 [facility] 200 mg 1-28 capsule by ity of capsule 00:00: mouth (three) Medical times Branch daily as needed for Cough. cephALEXin 2021- Yes [id number] 500mg Take 1 [facility] 500 mg 1-28 capsule by ity of capsule 00:00: mouth (four) Medical times Branch daily. benzonatate 2021- Yes [id number] 200mg Take 1 [facility] 200 mg 1-28 capsule by ity of capsule 00:00: mouth (three) Medical times Branch daily as needed for Cough. cephALEXin 2021- Yes [id number] 500mg Take 1 [facility] 500 mg 1-28 capsule by ity of capsule 00:00: mouth [place] (four) Medical times Branch daily. benzonatate 2021- Yes [id number] 200mg Take 1 [facility] 200 mg 1-28 capsule by ity of capsule 00:00: mouth [place] (three) Medical times Branch daily as needed for Cough. cephALEXin 2021- Yes [id number] 500mg Take 1 [facility] 500 mg 1-28 capsule by ity of capsule 00:00: mouth [place] (four) Medical times Branch daily. benzonatate 2021- Yes [id number] 200mg Take 1 [facility] 200 mg 1-28 capsule by ity of capsule 00:00: mouth [place] (three) Medical times Branch daily as needed for Cough. cephALEXin 2021- Yes [id number] 500mg Take 1 [facility] 500 mg 1-28 capsule by ity of capsule 00:00: mouth [place] (four) Medical times Branch daily. benzonatate 2021-1 Yes [id number] 200mg Take 1 [facility] 200 mg 1-28 capsule by ity of capsule 00:00: mouth [place] (three) Medical times Branch daily as needed for Cough. cephALEXin 2-1 Yes [id number] 500mg Take 1 [facility] 500 mg 1-28 capsule by ity of capsule 00:00: mouth [place] (four) Medical times Branch daily. benzonatate 2-1 Yes [id number] 200mg Take 1 [facility] 200 mg 1-28 capsule by ity of capsule 00:00: mouth (three) Medical times Branch daily as needed for Cough. cephALEXin 2021-03 Yes [id number] 500mg Take 1 [facility] 500 mg 1-28 capsule by ity of capsule 00:00: mouth 4 (four) Medical times Branch daily. benzonatate 2021-03 Yes [id number] 200mg Take 1 [facility] 200 mg 1-28 capsule by ity of capsule 00:00: mouth 3 (three) Medical times Branch daily as needed for Cough. cephALEXin 2021-03 Yes [id number] 500mg Take 1 [facility] 500 mg 1-28 capsule by ity of capsule 00:00: mouth 4 (four) Medical times Branch daily. benzonatate 2021-03 Yes [id number] 200mg Take 1 [facility] 200 mg 1-28 capsule by ity of capsule 00:00: mouth 3 (three) Medical times Branch daily as needed for Cough. benzonatate 2021-03 Yes [id number] 200mg Take 1 [facility] 200 mg 1-28 capsule by ity of capsule 00:00: mouth 3 (three) Medical times Branch daily as needed for Cough. benzonatate 2021-03 Yes [id number] 200mg Take 1 [facility] 200 mg 1-28 capsule by ity of capsule 00:00: mouth (three) Medical times Branch daily as needed for Cough. benzonatate 2021-03 Yes [id number] 200mg Take 1 [facility] 200 mg 1-28 capsule by ity of capsule 00:00: mouth 3 [place] (three) Medical times Branch daily as needed for Cough. benzonatate 2021-03 Yes [id number] 200mg Take 1 [facility] 200 mg 1-28 capsule by ity of capsule 00:00: mouth (three) Medical times Branch daily as needed for Cough. benzonatate 2021-03 Yes [id number] 200mg Take 1 [facility] 200 mg 1-28 capsule by ity of capsule 00:00: mouth 3 [place] (three) Medical times Branch daily as needed for Cough. benzonatate 2021-03 Yes [id number] 200mg Take 1 [facility] 200 mg 1-28 capsule by ity of capsule 00:00: mouth 3 (three) Medical times Branch daily as needed for Cough. benzonatate 2021-03 Yes [id number] 200mg Take 1 [facility] 200 mg 1-28 capsule by ity of capsule 00:00: mouth 3 [place] 00 (three) Medical times Branch daily as needed for Cough. benzonatate 2021-03 Yes [id number] 200mg Take 1 [facility] 200 mg 1-28 capsule by ity of capsule 00:00: mouth 3 [place] 00 (three) Medical times Branch daily as needed for Cough. benzonatate 2021-03 Yes [id number] 200mg Take 1 [facility] 200 mg 1-28 capsule by ity of capsule 00:00: mouth 3 [place] 00 (three) Medical times Branch daily as needed for Cough. benzonatate 2021-03 Yes [id number] 200mg Take 1 [facility] 200 mg 1-28 capsule by ity of capsule 00:00: mouth 3 [place] 00 (three) Medical times Branch daily as needed for Cough. benzonatate 2021-03 Yes [id number] 200mg Take 1 [facility] 200 mg 1-28 capsule by ity of capsule 00:00: mouth 3 [place] 00 (three) Medical times Branch daily as needed for Cough. benzonatate 2021-03 Yes [id number] 200mg Take 1 [facility] 200 mg 1-28 capsule by ity of capsule 00:00: mouth 3 [place] 00 (three) Medical times Branch daily as needed for Cough. cephALEXin 2021-03- No [id number] 500mg Take 1 [facility] 500 mg 1-28 12-14 capsule by ity of capsule 00:00: 00:00 mouth 4 [place] 00 :00 (four) Medical times Branch daily. cephALEXin 2021-03- No [id number] 500mg Take 1 [facility] 500 mg 1-28 12-14 capsule by ity of capsule 00:00: 00:00 mouth 4 [place] 00 :00 (four) Medical times Branch daily. cephALEXin 2021-03- No [id number] 500mg Take 1 [facility] 500 mg 1-28 12-14 capsule by ity of capsule 00:00: 00:00 mouth 4 [place] 00 :00 (four) Medical times Branch daily. azithromyci 2021-03 Yes [id number] 500mg Take 1 [facility] n 500 mg 1-23 tablet by ity of tablet 00:00: mouth in [place] 00 the Medical morning. Branch azithromyci 2021-03 Yes [id number] 500mg Take 1 [facility] n 500 mg 1-23 tablet by ity of tablet 00:00: mouth in [place] 00 the Medical morning. Branch azithromyci 2021-03- No [id number] 500mg Take 1 [facility] n 500 mg 04-03 tablet by ity o f tablet 00:00: 00:00 mouth in [place] 00 :00 the Medical morning. Branch blazeyci 2021-03- No [id number] 500mg Take 1 [facility] n 500 mg 04-03 tablet by ity o f tablet 00:00: 00:00 mouth in [place] 00 :00 the Medical morning. Branch CARVEDILOL 2021-03 Yes [id number] TAKE 1 [facility] 6.25 mg 1-21 TABLET BY ity of tablet 00:00: MOUTH [place] 00 TWICE Medical DAILY WITH Branch MEALS CARVEDILOL 2021-03 Yes [id number] TAKE 1 [facility] 6.25 mg 1-21 TABLET BY ity of tablet 00:00: MOUTH [place] 00 TWICE Medical DAILY WITH Branch MEALS CARVEDILOL 2021-03 Yes [id number] TAKE 1 [facility] 6.25 mg 1-21 TABLET BY ity of tablet 00:00: MOUTH [place] 00 TWICE Medical DAILY WITH Branch MEALS CARVEDILOL 2021-03 Yes [id number] TAKE 1 [facility] 6.25 mg 1-21 TABLET BY ity of tablet 00:00: MOUTH [place] 00 TWICE Medical DAILY WITH Branch MEALS CARVEDILOL 2021-03 Yes [id number] TAKE 1 [facility] 6.25 mg 1-21 TABLET BY ity of tablet 00:00: MOUTH [place] 00 TWICE Medical DAILY WITH Branch MEALS CARVEDILOL 2021-03 Yes [id number] TAKE 1 [facility] 6.25 mg 1-21 TABLET BY ity of tablet 00:00: MOUTH [place] 00 TWICE Medical DAILY WITH Branch MEALS CARVEDILOL 2021-03 Yes [id number] TAKE 1 [facility] 6.25 mg 1-21 TABLET BY [facility] of tablet 00:00: MOUTH [place] 00 TWICE Medical DAILY WITH Branch MEALS CARVEDILOL 2021-03 Yes [id number] TAKE 1 [facility] 6.25 mg 1-21 TABLET BY [facility] of tablet 00:00: MOUTH [place] 00 TWICE Medical DAILY WITH Branch MEALS CARVEDILOL 2021-03 Yes [id number] TAKE 1 [facility] 6.25 mg 1-21 TABLET BY [facility] of tablet 00:00: MOUTH [place] 00 TWICE Medical DAILY WITH Branch MEALS CARVEDILOL 2021-03 Yes [id number] TAKE 1 [facility] 6.25 mg 1-21 TABLET BY [facility] of tablet 00:00: MOUTH [place] 00 TWICE Medical DAILY WITH Branch MEALS CARVEDILOL 2021-03 Yes [id number] TAKE 1 [facility] 6.25 mg 1-21 TABLET BY [facility] of tablet 00:00: MOUTH TWICE Medical DAILY WITH Branch MEALS CARVEDILOL 2021-03 Yes [id number] TAKE 1 [facility] 6.25 mg 1-21 TABLET BY [facility] of tablet 00:00: MOUTH TWICE Medical DAILY WITH Branch MEALS CARVEDILOL 2021-03 Yes [id number] TAKE 1 [facility] 6.25 mg 1-21 TABLET BY [facility] of tablet 00:00: MOUTH TWICE Medical DAILY WITH Branch MEALS CARVEDILOL 2021-03 Yes [id number] TAKE 1 [facility] 6.25 mg 1-21 TABLET BY [facility] of tablet 00:00: MOUTH TWICE Medical DAILY WITH Branch MEALS CARVEDILOL 2021-03 Yes [id number] TAKE 1 [facility] 6.25 mg 1-21 TABLET BY [facility] of tablet 00:00: MOUTH TWICE Medical DAILY WITH Branch MEALS CARVEDILOL 2021-03 Yes [id number] TAKE 1 [facility] 6.25 mg 1-21 TABLET BY [facility] of tablet 00:00: MOUTH TWICE Medical DAILY WITH Branch MEALS CARVEDILOL 2021-03 Yes [id number] TAKE 1 [facility] 6.25 mg 1-21 TABLET BY [facility] of tablet 00:00: MOUTH TWICE Medical DAILY WITH Branch MEALS CARVEDILOL 2021-03 Yes [id number] TAKE 1 [facility] 6.25 mg 1-21 TABLET BY [facility] of tablet 00:00: MOUTH TWICE Medical DAILY WITH Branch MEALS CARVEDILOL 2021-03 Yes [id number] TAKE 1 [facility] 6.25 mg 1-21 TABLET BY [facility] of tablet 00:00: MOUTH TWICE Medical DAILY WITH Branch MEALS CARVEDILOL 2021-03 Yes [id number] TAKE 1 [facility] 6.25 mg 1-21 TABLET BY [facility] of tablet 00:00: MOUTH 00 TWICE Medical DAILY WITH Branch MEALS CARVEDILOL 2021-03 Yes [id number] TAKE 1 [facility] 6.25 mg 1-21 TABLET BY [facility] of tablet 00:00: MOUTH 00 TWICE Medical DAILY WITH Branch MEALS CARVEDILOL 2021-03 Yes [id number] TAKE 1 [facility] 6.25 mg 1-21 TABLET BY [facility] of tablet 00:00: MOUTH 00 TWICE Medical DAILY WITH Branch MEALS CARVEDILOL 2021-03 Yes [id number] TAKE 1 [facility] 6.25 mg 1-21 TABLET BY [facility] of tablet 00:00: MOUTH TWICE Medical DAILY WITH Branch MEALS CARVEDILOL 2021-03 Yes [id number] TAKE 1 [facility] 6.25 mg 1-21 TABLET BY [facility] of tablet 00:00: MOUTH TWICE Medical DAILY WITH Branch MEALS CARVEDILOL 2021-03 Yes [id number] TAKE 1 [facility] 6.25 mg 1-21 TABLET BY [facility] of tablet 00:00: MOUTH TWICE Medical DAILY WITH Branch MEALS CARVEDILOL 2021-03 Yes [id number] TAKE 1 [facility] 6.25 mg 1-21 TABLET BY [facility] of tablet 00:00: MOUTH TWICE Medical DAILY WITH Branch MEALS CARVEDILOL 2021-03 Yes [id number] TAKE 1 [facility] 6.25 mg 1-21 TABLET BY [facility] of tablet 00:00: MOUTH TWICE Medical DAILY WITH Branch MEALS CARVEDILOL 2021-03 Yes [id number] TAKE 1 [facility] 6.25 mg 1-21 TABLET BY [facility] of tablet 00:00: MOUTH TWICE Medical DAILY WITH Branch MEALS CARVEDILOL 2021-03 Yes [id number] TAKE 1 [facility] 6.25 mg 1-21 TABLET BY [facility] of tablet 00:00: MOUTH TWICE Medical DAILY WITH Branch MEALS CARVEDILOL 2021-03 Yes [id number] TAKE 1 [facility] 6.25 mg 1-21 TABLET BY [facility] of tablet 00:00: MOUTH TWICE Medical DAILY WITH Branch MEALS CARVEDILOL 2021-03 Yes [id number] TAKE 1 [facility] 6.25 mg 1-21 TABLET BY [facility] of tablet 00:00: MOUTH TWICE Medical DAILY WITH Branch MEALS CARVEDILOL 2021-03 Yes [id number] TAKE 1 [facility] 6.25 mg 1-21 TABLET BY [facility] of tablet 00:00: MOUTH TWICE Medical DAILY WITH Branch MEALS CARVEDILOL 2021-03 Yes [id number] TAKE 1 [facility] 6.25 mg 1-21 TABLET BY [facility] of tablet 00:00: MOUTH 00 TWICE Medical DAILY WITH Branch MEALS CARVEDILOL 2021-03 Yes [id number] TAKE 1 [facility] 6.25 mg 1-21 TABLET BY [facility] of tablet 00:00: MOUTH 00 TWICE Medical DAILY WITH Branch MEALS CARVEDILOL 2021-03 Yes [id number] TAKE 1 [facility] 6.25 mg 1-21 TABLET BY [facility] of tablet 00:00: MOUTH [place] 00 TWICE Medical DAILY WITH Branch MEALS CARVEDILOL 2021-03 Yes [id number] TAKE 1 [facility] 6.25 mg 1-21 TABLET BY [facility] of tablet 00:00: MOUTH [place] 00 TWICE Medical DAILY WITH Branch MEALS CARVEDILOL 2021-03 Yes [id number] TAKE 1 [facility] 6.25 mg 1-21 TABLET BY [facility] of tablet 00:00: MOUTH [place] 00 TWICE Medical DAILY WITH Branch MEALS CARVEDILOL 2021-03 Yes [id number] TAKE 1 [facility] 6.25 mg 1-21 TABLET BY [facility] of tablet 00:00: MOUTH [place] 00 TWICE Medical DAILY WITH Branch MEALS CARVEDILOL 2021-03 Yes [id number] TAKE 1 [facility] 6.25 mg 1-21 TABLET BY [facility] of tablet 00:00: MOUTH [place] 00 TWICE Medical DAILY WITH Branch MEALS CARVEDILOL 2021-03 Yes [id number] TAKE 1 [facility] 6.25 mg 1-21 TABLET BY [facility] of tablet 00:00: MOUTH [place] 00 TWICE Medical DAILY WITH Branch MEALS CARVEDILOL 2021-03 Yes [id number] TAKE 1 [facility] 6.25 mg 1-21 TABLET BY [facility] of tablet 00:00: MOUTH [place] 00 TWICE Medical DAILY WITH Branch MEALS CARVEDILOL 2021-03 Yes [id number] TAKE 1 [facility] 6.25 mg 1-21 TABLET BY [facility] tablet 00:00: MOUTH [place] 00 TWICE Medical DAILY WITH Branch MEALS CARVEDILOL 2021-03 Yes [id number] TAKE 1 [facility] 6.25 mg 1-21 TABLET BY [facility] of tablet 00:00: MOUTH [place] 00 TWICE Medical DAILY WITH Branch MEALS CARVEDILOL 2021-03 Yes [id number] TAKE 1 [facility] 6.25 mg 1-21 TABLET BY [facility] of tablet 00:00: MOUTH [place] 00 TWICE Medical DAILY WITH Branch MEALS CARVEDILOL 2021-03 Yes [id number] TAKE 1 [facility] 6.25 mg 1-21 TABLET BY [facility] of tablet 00:00: MOUTH [place] 00 TWICE Medical DAILY WITH Branch MEALS KCL 10 mEq 2021-03- No 10meq Take 10 [facility] tablet 1-11 11-11 mEq by ity of 15:34: 00:00 mouth [place] 27 :00 daily. Medical Branch warfarin 5 2021-03 Yes [id number] [facility] mg tablet 1-11 dosage 10 ity o f 00:00: mg /W/F[facility] and 7.5 Branch T/Th/S warfarin 5 2021-03 Yes [id number] [facility] mg tablet 1-11 dosage 10 ity o f 00:00: mg /[place]/F[facility] 7.5 Branch T/Th/S warfarin 5 2021-03 Yes [id number] [facility] mg tablet 1-11 dosage 10 ity o f 00:00: mg /[place]/F/[facility] and 7.5 Branch T/Th/S warfarin 5 2021-03 Yes [id number] [facility] mg tablet 1-11 dosage 10 ity o f 00:00: mg /[place]/F/[facility] and 7.5 Branch T/Th/S warfarin 5 2021-03 Yes [id number] [facility] mg tablet 1-11 dosage 10 [facility]y o f 00:00: mg [place] /W/F/[facility] and 7.5 Branch T/Th/S warfarin 5 2021-03 Yes [id number] [facility] mg tablet 1-11 dosage 10 ity o f 00:00: mg [place] /W/[facility] 7.5 Branch T/Th/S warfarin 5 2021-03 Yes [id number] [facility] mg tablet 1-11 dosage 10 ity o f 00:00: mg [place] /[facility] 7.5 Branch T/Th/S warfarin 5 2021-03 Yes [id number] [facility] mg tablet 1-11 dosage 10 ity o f 00:00: mg [place] /[facility] 7.5 Branch T/Th/S warfarin 5 2021-03 Yes [id number] [facility] mg tablet 1-11 dosage 10 ity o f 00:00: mg [place] /[facility] 7.5 Branch T/Th/S warfarin 5 2021-03 Yes [id number] [facility] mg tablet 1-11 dosage 10 ity o f 00:00: mg [place] /[facility] 7.5 Branch T/Th/S warfarin 5 2021-03 Yes [id number] [facility] mg tablet 1-11 dosage 10 ity o f 00:00: mg /W/F[facility] 7.5 Branch T/Th/S warfarin 5 2021-03 Yes [id number] [facility] mg tablet 1-11 dosage 10 ity o f 00:00: mg /W/F[facility] and 7.5 Branch T/Th/S warfarin 5 2021-03 Yes [id number] [facility] mg tablet 1-11 dosage 10 ity o f 00:00: mg /W/F[facility] and 7.5 Branch T/Th/S warfarin 5 2021-03 Yes [id number] [facility] mg tablet 1-11 dosage 10 ity o f 00:00: mg /W/F[facility] and 7.5 Branch T/Th/S warfarin 5 2021-03 Yes [id number] [facility] mg tablet 1-11 dosage 10 ity o f 00:00: mg /W/F[facility] 7[facility]5 Branch T/Th/S warfarin 5 2021-03 Yes [id number] [facility] mg tablet 1-11 dosage 10 ity o f 00:00: mg /W/[facility] and 7[facility]5 Branch T/Th/S warfarin 5 2021-03 Yes [id number] [facility] mg tablet 1-11 dosage 10 ity o f 00:00: mg /W/F[facility] 7.5 Branch T/Th/S warfarin 5 2021-03 Yes [id number] [facility] mg tablet 1-11 dosage 10 ity o f 00:00: mg /W/F[facility] 7[facility]5 Branch T/Th/S warfarin 5 2021-03 Yes [id number] [facility] mg tablet 1-11 dosage 10 ity o f 00:00: mg [place] /W/[facility] 7.5 Branch T/Th/S warfarin 5 2021-03 Yes [id number] [facility] mg tablet 1-11 dosage 10 ity o f 00:00: mg [place] /[facility] 7.5 Branch T/Th/S KCL 10 mEq 2021-03 Yes [id number] 10meq Take 1 [facility] tablet 1-11 tablet by ity of 00:00: mouth in [place] the Medical morning. Branch warfarin 2021-03 Yes [id number] [facility] mg tablet 1-11 dosage 10 ity o f 00:00: mg [place] [facility] and 7.5 Branch T/Th/S KCL 10 mEq 2021-03 Yes [id number] 10meq Take 1 [facility] tablet 1-11 tablet by ity of 00:00: mouth in [place] the Medical morning. Branch warfarin 2021-03 Yes [id number] [facility] mg tablet 1-11 dosage 10 ity o f 00:00: mg [place] [facility] and 7.5 Branch T/Th/S KCL 10 mEq 2021-03 Yes [id number] 10meq Take 1 [facility] tablet 1-11 tablet by ity of 00:00: mouth in [place] the Medical morning. Branch warfarin 5 2021-03 Yes [id number] [facility] mg tablet 1-11 dosage 10 ity o f 00:00: mg [place] [facility] and 7.5 Branch T/Th/S KCL 10 mEq 2021-03 Yes [id number] 10meq Take 1 [facility] tablet 1-11 tablet by ity of 00:00: mouth in [place] the Medical morning. Branch warfarin 2021-03 Yes [id number] Current [facility] mg tablet 1-11 dosage 10 ity o f 00:00: mg [place] [facility] and 7.5 Branch T/Th/S KCL 10 mEq 2021-03 Yes [id number] 10meq Take 1 [facility] tablet 1-11 tablet by ity of 00:00: mouth in [place] the Medical morning. Branch warfarin 2021-03 Yes [id number] Current [facility] mg tablet 1-11 dosage 10 ity o f 00:00: mg [place] [facility] and 7.5 Branch T/Th/S KCL 10 mEq 2021-03 Yes [id number] 10meq Take 1 [facility] tablet 1-11 tablet by ity of 00:00: mouth in [place] the Medical morning. Branch warfarin 2021-03 Yes [id number] Current [facility] mg tablet 1-11 dosage 10 ity o f 00:00: mg [place] [facility] and 7.5 Branch T/Th/S KCL 10 mEq 2021-03 Yes [id number] 10meq Take 1 [facility] tablet 1-11 tablet by ity of 00:00: mouth in [place] 00 the Medical morning. Branch warfarin 5 2021-03 Yes [id number] Current [facility] mg tablet 1-11 dosage 10 ity o f 00:00: mg [place] [facility] and 7.5 Branch T/Th/S KCL 10 mEq 2021-03 Yes [id number] 10meq Take 1 [facility] tablet 1-11 tablet by ity of 00:00: mouth in [place] 00 the Medical morning. Branch warfarin 5 2021-03 Yes [id number] Current [facility] mg tablet 1-11 dosage 10 ity o f 00:00: mg [place] [facility] and 7.5 [place] T/Th/S KCL 10 mEq 2021-03 Yes [id number] 10meq Take 1 [facility] tablet 1-11 tablet by ity of 00:00: mouth in [place] the Medical morning. Branch warfarin 2021-03 Yes [id number] Current [facility] mg tablet 1-11 dosage 10 ity o f 00:00: mg [place] [facility] and 7.5 [place] T/Th/S KCL 10 mEq 2021-03 Yes [id number] 10meq Take 1 [facility] tablet 1-11 tablet by ity of 00:00: mouth in [place] the Medical morning. Branch warfarin 2021-03 Yes [id number] Current [facility] mg tablet 1-11 dosage 10 ity o f 00:00: mg [place] [facility] and 7.5 [place] T/Th/S KCL 10 mEq 2021-03 Yes [id number] 10meq Take 1 [facility] tablet 1-11 tablet by ity of 00:00: mouth in [place] the Medical morning. Branch warfarin 2021-03 Yes [id number] Current [facility] mg tablet 1-11 dosage 10 ity o f 00:00: mg [place] [facility] and 7.5 [place] T/Th/S KCL 10 mEq 2021-03 Yes [id number] 10meq Take 1 [facility] tablet 1-11 tablet by ity of 00:00: mouth in [place] the Medical morning. Branch warfarin 2021-03 Yes [id number] Current [facility] mg tablet 1-11 dosage 10 ity o f 00:00: mg [place] /W//[facility] and 7.5 Branch T/Th/S KCL 10 mEq 2021-03 Yes [id number] 10meq Take 1 [facility] tablet 1-11 tablet by ity of 00:00: mouth in [place] the Medical morning. Branch warfarin 5 2021-03 Yes [id number] Current [facility] mg tablet 1-11 dosage 10 ity o f 00:00: mg [place] /W//[facility] and 7.5 Branch T/Th/S KCL 10 mEq 2021-03 Yes [id number] 10meq Take 1 [facility] tablet 1-11 tablet by ity of 00:00: mouth in [place] the Medical morning. Branch warfarin 5 2021-03 Yes [id number] Current [facility] mg tablet 1-11 dosage 10 ity o f 00:00: mg [place] ///[facility] and 7.5 Branch T/Th/S KCL 10 mEq 2021-03 Yes [id number] 10meq Take 1 [facility] tablet 1-11 tablet by ity of 00:00: mouth in [place] the Medical morning. Branch warfarin 5 2021-03 Yes [id number] Current [facility] mg tablet 1-11 dosage 10 ity o f 00:00: mg [place] ///[facility] and 7.5 Branch T/Th/S KCL 10 mEq 2021-03 Yes [id number] 10meq Take 1 [facility] tablet 1-11 tablet by ity of 00:00: mouth in [place] the Medical morning. Branch warfarin 5 2021-03 Yes [id number] Current [facility] mg tablet 1-11 dosage 10 ity o f 00:00: mg [place] /W//[facility] and 7.5 Branch T/Th/S KCL 10 mEq 2021-03 Yes [id number] 10meq Take 1 [facility] tablet 1-11 tablet by ity of 00:00: mouth in [place] the Medical morning. Branch warfarin 5 2021-03 Yes [id number] Current [facility] mg tablet 1-11 dosage 10 ity o f 00:00: mg [place] /W//[facility] and 7.5 Branch T/Th/S KCL 10 mEq 2021-03 Yes [id number] 10meq Take 1 [facility] tablet 1-11 tablet by ity of 00:00: mouth in [place] the Medical morning. Branch warfarin 2021-03 Yes [id number] Current [facility] mg tablet 1-11 dosage 10 ity o f 00:00: mg [place] /[facility] and 7.5 Branch T/Th/S KCL 10 mEq 2021-03 Yes [id number] 10meq Take 1 [facility] tablet 1-11 tablet by ity of 00:00: mouth in [place] the Medical morning. Branch warfarin 5 2021-03 Yes [id number] Current [facility] mg tablet 1-11 dosage 10 ity o f 00:00: mg [place] ///[facility] and 7.5 Branch T/Th/S KCL 10 mEq 2021-03 Yes [id number] 10meq Take 1 [facility] tablet 1-11 tablet by ity of 00:00: mouth in [place] the Medical morning. Branch warfarin 5 2021-03 Yes [id number] Current [facility] mg tablet 1-11 dosage 10 ity o f 00:00: mg [place] [facility] and 7.5 Branch T/Th/S KCL 10 mEq 2021-03 Yes [id number] 10meq Take 1 [facility] tablet 1-11 tablet by ity of 00:00: mouth in [place] the Medical morning. Branch warfarin 5 2021-03 Yes [id number] Current [facility] mg tablet 1-11 dosage 10 ity o f 00:00: mg [place] [facility]//[facility] and 7.5 Branch T/Th/S KCL 10 mEq 2021-03 Yes [id number] 10meq Take 1 [facility] tablet 1-11 tablet by ity of 00:00: mouth in [place] the Medical morning. Branch warfarin 2021-03 Yes [id number] Current [facility] mg tablet 1-11 dosage 10 ity o f 00:00: mg [place] [facility]//[facility] and 7.5 Branch T/Th/S KCL 10 mEq 2021-03 Yes [id number] 10meq Take 1 [facility] tablet 1-11 tablet by ity of 00:00: mouth in [place] the Medical morning. Branch warfarin 5 2021-03 Yes [id number] Current [facility] mg tablet 1-11 dosage 10 ity o f 00:00: mg [place] ///[facility] and 7.5 Branch T/Th/S KCL 10 mEq 2021-03 Yes [id number] 10meq Take 1 [facility] tablet 1-11 tablet by ity of 00:00: mouth in [place] the Medical morning. Branch warfarin 2021-03 Yes [id number] Current [facility] mg tablet 1-11 dosage 10 ity o f 00:00: mg [place] ///[facility] and 7.5 Branch T/Th/S KCL 10 mEq 2021-03 Yes [id number] 10meq Take 1 [facility] tablet 1-11 tablet by ity of 00:00: mouth in [place] the Medical morning. Branch warfarin 2021-03 Yes [id number] Current [facility] mg tablet 1-11 dosage 10 ity o f 00:00: mg [place] ///[facility] and 7.5 [place] T/Th/S KCL 10 mEq 2021-03 Yes [id number] 10meq Take 1 [facility] tablet 1-11 tablet by ity of 00:00: mouth in [place] the Medical morning. Branch warfarin 2021-03 Yes [id number] Current [facility] mg tablet 1-11 dosage 10 ity o f 00:00: mg [place] [facility]//[facility] and 7.5 Branch T/Th/S KCL 10 mEq 2021-03 Yes [id number] 10meq Take 1 [facility] tablet 1-11 tablet by ity of 00:00: mouth in [place] the Medical morning. Branch warfarin 2021-03 Yes [id number] Current [facility] mg tablet 1-11 dosage 10 ity o f 00:00: mg [place] [facility] and 7.5 [place] T/Th/S KCL 10 mEq 2021-03 Yes [id number] 10meq Take 1 [facility] tablet 1-11 tablet by ity of 00:00: mouth in [place] the Medical morning. Branch warfarin 2021-03 Yes [id number] Current [facility] mg tablet 1-11 dosage 10 ity o f 00:00: mg [place] [facility] and 7.5 [place] T/Th/S KCL 10 mEq 2021-03 Yes [id number] 10meq Take 1 [facility] tablet 1-11 tablet by ity of 00:00: mouth in [place] the Medical morning. Branch warfarin 2021-03 Yes [id number] Current [facility] mg tablet 1-11 dosage 10 ity o f 00:00: mg [place] /W//[facility] and 7.5 Branch T//S KCL 10 mEq 2021-03 Yes [id number] 10meq Take 1 [facility] tablet 1-11 tablet by ity of 00:00: mouth in [place] 00 the Medical morning. Branch warfarin 5 2021-03 Yes [id number] Current [facility] mg tablet 1-11 dosage 10 ity o f 00:00: mg [place] /W//[facility] and 7.5 Branch T//S KCL 10 mEq 2021-03 Yes [id number] 10meq Take 1 [facility] tablet 1-11 tablet by ity of 00:00: mouth in [place] 00 the Medical morning. Branch warfarin 5 2021-03 Yes [id number] Current [facility] mg tablet 1-11 dosage 10 ity o f 00:00: mg [place] ///[facility] and 7.5 Branch T//S warfarin 5 2021-03 Yes [id number] Current [facility] mg tablet 1-11 dosage 10 ity o f 00:00: mg [place] ///[facility] and 7.5 Branch T//S warfarin 5 2021-03 Yes [id number] Current [facility] mg tablet 1-11 dosage 10 ity o f 00:00: mg [place] ///[facility] and 7.5 Branch T//S warfarin 5 2021-03 Yes [id number] Current [facility] mg tablet 1-11 dosage 10 ity o f 00:00: mg [place] ///[facility] and 7.5 Branch T//S KCL 10 mEq 2021-03- No [id number] 10meq Take 1 [facility] tablet 1-11 12-16 tablet by ity of 00:00: 00:00 mouth in [place] 00 :00 the Medical morning. Branch OMEPRAZOLE 2021-03 Yes [id number] 40mg TAKE 1 [facility] 40 mg 1-03 CAPSULE BY ity of capsule 00:00: MOUTH [place] DAILY Medical Branch OMEPRAZOLE 2021-03 Yes [id number] 40mg TAKE 1 [facility] 40 mg 1-03 CAPSULE BY ity of capsule 00:00: MOUTH [place] DAILY Medical Branch OMEPRAZOLE 2021-03 Yes [id number] 40mg TAKE 1 [facility] 40 mg 1-03 CAPSULE BY ity of capsule 00:00: MOUTH [place] DAILY Medical Branch OMEPRAZOLE 2021-03 Yes [id number] 40mg TAKE 1 [facility] 40 mg 1-03 CAPSULE BY ity of capsule 00:00: MOUTH [place] DAILY Medical Branch OMEPRAZOLE 2021-03 Yes [id number] 40mg TAKE 1 [facility] 40 mg 1-03 CAPSULE BY ity of capsule 00:00: MOUTH [place] DAILY Medical Branch OMEPRAZOLE 2021-03 Yes [id number] 40mg TAKE 1 [facility] 40 mg 1-03 CAPSULE BY ity of capsule 00:00: MOUTH [place] DAILY Medical Branch OMEPRAZOLE 2021-03 Yes [id number] 40mg TAKE 1 [facility] 40 mg 1-03 CAPSULE BY ity of capsule 00:00: MOUTH [place] DAILY Medical Branch OMEPRAZOLE 2021-03 Yes [id number] 40mg TAKE 1 [facility] 40 mg 1-03 CAPSULE BY ity of capsule 00:00: [facility] DAILY Medical Branch OMEPRAZOLE 2021-03 Yes [id number] 40mg TAKE 1 [facility] 40 mg 1-03 CAPSULE BY ity of capsule 00:00: [facility] DAILY Medical Branch OMEPRAZOLE 2021-03 Yes [id number] 40mg TAKE 1 [facility] 40 mg 1-03 CAPSULE BY ity of capsule 00:00: MOUTH [place] DAILY Medical Branch OMEPRAZOLE 2021-03 Yes [id number] 40mg TAKE 1 [facility] 40 mg 1-03 CAPSULE BY ity of capsule 00:00: [facility] DAILY Medical Branch OMEPRAZOLE 2021-03 Yes [id number] 40mg TAKE 1 [facility] 40 mg 1-03 CAPSULE BY ity of capsule 00:00: [facility] DAILY Medical Branch OMEPRAZOLE 2021- Yes [id number] 40mg TAKE 1 [facility] 40 mg 1-03 CAPSULE BY ity of capsule 00:00: [facility] DAILY Medical Branch OMEPRAZOLE 2021- Yes [id number] 40mg TAKE 1 [facility] 40 mg 1-03 CAPSULE BY ity of capsule 00:00: [facility] DAILY Medical Branch OMEPRAZOLE 2021- Yes [id number] 40mg TAKE 1 [facility] 40 mg 1-03 CAPSULE BY ity of capsule 00:00: [facility] DAILY Medical Branch OMEPRAZOLE 2021-03 Yes [id number] 40mg TAKE 1 [facility] 40 mg 1-03 CAPSULE BY ity of capsule 00:00: [facility] DAILY Medical Branch OMEPRAZOLE 2021-03 Yes [id number] 40mg TAKE 1 [facility] 40 mg 1-03 CAPSULE BY ity of capsule 00:00: MOUTH [place] 00 DAILY Medical Branch OMEPRAZOLE 2021- Yes [id number] 40mg TAKE 1 [facility] 40 mg 1-03 CAPSULE BY ity of capsule 00:00: MOUTH [place] 00 DAILY Medical Branch OMEPRAZOLE 2021- Yes [id number] 40mg TAKE 1 [facility] 40 mg 1-03 CAPSULE BY ity of capsule 00:00: MOUTH [place] 00 DAILY Medical Branch GABAPENTIN 2021- Yes [id number] TAKE 2 [facility] 300 mg 1-03 CAPSULES ity of capsule 00:00: BY MOUTH [place] 00 TWICE Medical DAILY. Branch OMEPRAZOLE 2021- Yes [id number] 40mg TAKE 1 [facility] 40 mg 1-03 CAPSULE BY ity of capsule 00:00: MOUTH [place] 00 DAILY Medical Branch GABAPENTIN 2021- Yes [id number] TAKE 2 [facility] 300 mg 1-03 CAPSULES ity of capsule 00:00: BY MOUTH [place] 00 TWICE Medical DAILY. Branch OMEPRAZOLE 2021- Yes [id number] 40mg TAKE 1 [facility] 40 mg 1-03 CAPSULE BY ity of capsule 00:00: MOUTH [place] 00 DAILY Medical Branch GABAPENTIN 2021- Yes [id number] TAKE 2 [facility] 300 mg 1-03 CAPSULES ity of capsule 00:00: BY MOUTH [place] 00 TWICE Medical DAILY. Branch OMEPRAZOLE 2021- Yes [id number] 40mg TAKE 1 [facility] 40 mg 1-03 CAPSULE BY ity of capsule 00:00: MOUTH [place] 00 DAILY Medical Branch GABAPENTIN 2021- Yes [id number] TAKE 2 [facility] 300 mg 1-03 CAPSULES ity of capsule 00:00: BY MOUTH [place] 00 TWICE Medical DAILY. Branch OMEPRAZOLE 2021- Yes [id number] 40mg TAKE 1 [facility] 40 mg 1-03 CAPSULE BY ity of capsule 00:00: MOUTH [place] 00 DAILY Medical Branch GABAPENTIN 2021- Yes [id number] TAKE 2 [facility] 300 mg 1-03 CAPSULES ity of capsule 00:00: BY MOUTH [place] 00 TWICE Medical DAILY. Branch OMEPRAZOLE 2021- Yes [id number] 40mg TAKE 1 [facility] 40 mg 1-03 CAPSULE BY ity of capsule 00:00: MOUTH [place] 00 DAILY Medical Branch GABAPENTIN 2021- Yes [id number] TAKE 2 [facility] 300 mg 1-03 CAPSULES ity of capsule 00:00: BY MOUTH [place] 00 TWICE Medical DAILY. Branch OMEPRAZOLE 2021-03 Yes [id number] 40mg TAKE 1 [facility] 40 mg 1-03 CAPSULE BY ity of capsule 00:00: MOUTH [place] 00 DAILY Medical Branch GABAPENTIN 2021- Yes [id number] TAKE 2 [facility] 300 mg 1-03 CAPSULES ity of capsule 00:00: BY MOUTH [place] 00 TWICE Medical DAILY. Branch OMEPRAZOLE 2021- Yes [id number] 40mg TAKE 1 [facility] 40 mg 1-03 CAPSULE BY ity of capsule 00:00: MOUTH [place] 00 DAILY Medical Branch GABAPENTIN 2021- Yes [id number] TAKE 2 [facility] 300 mg 1-03 CAPSULES ity of capsule 00:00: BY MOUTH [place] 00 TWICE Medical DAILY. Branch OMEPRAZOLE 2021- Yes [id number] 40mg TAKE 1 [facility] 40 mg 1-03 CAPSULE BY ity of capsule 00:00: MOUTH [place] 00 DAILY Medical Branch GABAPENTIN 2021- Yes [id number] TAKE 2 [facility] 300 mg 1-03 CAPSULES ity of capsule 00:00: BY MOUTH [place] 00 TWICE Medical DAILY. Branch OMEPRAZOLE 2021- Yes [id number] 40mg TAKE 1 [facility] 40 mg 1-03 CAPSULE BY ity of capsule 00:00: MOUTH [place] 00 DAILY Medical Branch GABAPENTIN 2021- Yes [id number] TAKE 2 [facility] 300 mg 1-03 CAPSULES ity of capsule 00:00: BY MOUTH [place] 00 TWICE Medical DAILY. Branch OMEPRAZOLE 2021- Yes [id number] 40mg TAKE 1 [facility] 40 mg 1-03 CAPSULE BY ity of capsule 00:00: MOUTH [place] 00 DAILY Medical Branch GABAPENTIN 2021- Yes [id number] TAKE 2 [facility] 300 mg 1-03 CAPSULES ity of capsule 00:00: BY MOUTH [place] 00 TWICE Medical DAILY. Branch OMEPRAZOLE 2021- Yes [id number] 40mg TAKE 1 [facility] 40 mg 1-03 CAPSULE BY ity of capsule 00:00: MOUTH [place] 00 DAILY Medical Branch GABAPENTIN 2021- Yes [id number] TAKE 2 [facility] 300 mg 1-03 CAPSULES ity of capsule 00:00: BY MOUTH [place] 00 TWICE Medical DAILY. Branch OMEPRAZOLE 2021- Yes [id number] 40mg TAKE 1 [facility] 40 mg 1-03 CAPSULE BY ity of capsule 00:00: MOUTH [place] 00 DAILY Medical Branch GABAPENTIN 2- Yes [id number] TAKE 2 [facility] 300 mg 1-03 CAPSULES ity of capsule 00:00: BY MOUTH [place] 00 TWICE Medical DAILY. Branch OMEPRAZOLE 2021- Yes [id number] 40mg TAKE 1 [facility] 40 mg 1-03 CAPSULE BY ity of capsule 00:00: MOUTH [place] 00 DAILY Medical Branch GABAPENTIN 2021- Yes [id number] TAKE 2 [facility] 300 mg 1-03 CAPSULES it[facility] of capsule 00:00: BY MOUTH [place] 00 TWICE Medical DAILY. Branch OMEPRAZOLE 2021- Yes [id number] 40mg TAKE 1 [facility] 40 mg 1-03 CAPSULE BY [facility] of capsule 00:00: MOUTH [place] 00 DAILY Medical Branch GABAPENTIN 2021- Yes [id number] TAKE 2 [facility] 300 mg 1-03 CAPSULES it[facility] of capsule 00:00: BY MOUTH [place] 00 TWICE Medical DAILY. Branch OMEPRAZOLE 2021- Yes [id number] 40mg TAKE 1 [facility] 40 mg 1-03 CAPSULE BY [facility] of capsule 00:00: MOUTH [place] 00 DAILY Medical Branch GABAPENTIN 2021- Yes [id number] TAKE 2 [facility] 300 mg 1-03 CAPSULES it[facility] of capsule 00:00: BY MOUTH [place] 00 TWICE Medical DAILY. Branch OMEPRAZOLE 2021- Yes [id number] 40mg TAKE 1 [facility] 40 mg 1-03 CAPSULE BY [facility] of capsule 00:00: MOUTH [place] 00 DAILY Medical Branch GABAPENTIN 2021- Yes [id number] TAKE 2 [facility] 300 mg 1-03 CAPSULES it[facility] of capsule 00:00: BY MOUTH [place] 00 TWICE Medical DAILY. Branch OMEPRAZOLE 2021- Yes [id number] 40mg TAKE 1 [facility] 40 mg 1-03 CAPSULE BY [facility] of capsule 00:00: MOUTH [place] 00 DAILY Medical Branch GABAPENTIN 2021- Yes [id number] TAKE 2 [facility] 300 mg 1-03 CAPSULES it[facility] of capsule 00:00: BY MOUTH [place] 00 TWICE Medical DAILY. Branch OMEPRAZOLE 2021- Yes [id number] 40mg TAKE 1 [facility] 40 mg 1-03 CAPSULE BY [facility] of capsule 00:00: MOUTH [place] 00 DAILY Medical Branch GABAPENTIN 2021- Yes [id number] TAKE 2 [facility] 300 mg 1-03 CAPSULES ity of capsule 00:00: BY MOUTH [place] 00 TWICE Medical DAILY. Branch OMEPRAZOLE 2021- Yes [id number] 40mg TAKE 1 [facility] 40 mg 1-03 CAPSULE BY [facility] of capsule 00:00: MOUTH [place] 00 DAILY Medical Branch GABAPENTIN 2021- Yes [id number] TAKE 2 [facility] 300 mg 1-03 CAPSULES ity of capsule 00:00: BY MOUTH [place] 00 TWICE Medical DAILY. Branch OMEPRAZOLE 2021- Yes [id number] 40mg TAKE 1 [facility] 40 mg 1-03 CAPSULE BY [facility] of capsule 00:00: MOUTH [place] 00 DAILY Medical Branch GABAPENTIN 2021- Yes [id number] TAKE 2 [facility] 300 mg 1-03 CAPSULES it[facility] of capsule 00:00: BY MOUTH [place] 00 TWICE Medical DAILY. Branch OMEPRAZOLE 2021- Yes [id number] 40mg TAKE 1 [facility] 40 mg 1-03 CAPSULE BY [facility] of capsule 00:00: MOUTH [place] 00 DAILY Medical Branch GABAPENTIN 2021- Yes [id number] TAKE 2 [facility] 300 mg 1-03 CAPSULES [facility] of capsule 00:00: BY MOUTH [place] 00 TWICE Medical DAILY. Branch OMEPRAZOLE 2021- Yes [id number] 40mg TAKE 1 [facility] 40 mg 1-03 CAPSULE BY [facility] of capsule 00:00: MOUTH [place] 00 DAILY Medical Branch GABAPENTIN 2021- Yes [id number] TAKE 2 [facility] 300 mg 1-03 CAPSULES it[facility] of capsule 00:00: BY MOUTH [place] 00 TWICE Medical DAILY. Branch OMEPRAZOLE 2021-03 Yes [id number] 40mg TAKE 1 [facility] 40 mg 1-03 CAPSULE BY [facility] of capsule 00:00: MOUTH [place] 00 DAILY Medical Branch GABAPENTIN 2021- Yes [id number] TAKE 2 [facility] 300 mg 1-03 CAPSULES ity of capsule 00:00: BY MOUTH [place] 00 TWICE Medical DAILY. Branch OMEPRAZOLE 2021- Yes [id number] 40mg TAKE 1 [facility] 40 mg 1-03 CAPSULE BY [facility] of capsule 00:00: MOUTH [place] 00 DAILY Medical Branch GABAPENTIN 2021- Yes [id number] TAKE 2 [facility] 300 mg 1-03 CAPSULES ity of capsule 00:00: BY MOUTH [place] 00 TWICE Medical DAILY. Branch OMEPRAZOLE 2021- Yes [id number] 40mg TAKE 1 [facility] 40 mg 1-03 CAPSULE BY it[facility] of capsule 00:00: MOUTH [place] 00 DAILY Medical Branch GABAPENTIN 2021- Yes [id number] TAKE 2 [facility] 300 mg 1-03 CAPSULES ity of capsule 00:00: BY MOUTH [place] 00 TWICE Medical DAILY. Branch OMEPRAZOLE 2021- Yes [id number] 40mg TAKE 1 [facility] 40 mg 1-03 CAPSULE BY [facility] of capsule 00:00: MOUTH [place] 00 DAILY Medical Branch GABAPENTIN 2021-03 Yes [id number] TAKE 2 [facility] 300 mg 1-03 CAPSULES ity of capsule 00:00: BY MOUTH [place] 00 TWICE Medical DAILY. Branch OMEPRAZOLE 2021-03 Yes [id number] 40mg TAKE 1 [facility] 40 mg 1-03 CAPSULE BY ity of capsule 00:00: MOUTH [place] DAILY Medical Branch OMEPRAZOLE 2021-03 Yes [id number] 40mg TAKE 1 [facility] 40 mg 1-03 CAPSULE BY [facility]y of capsule 00:00: MOUTH [place] DAILY Medical Branch OMEPRAZOLE 2021-03 Yes [id number] 40mg TAKE 1 [facility] 40 mg 1-03 CAPSULE BY [facility] of capsule 00:00: MOUTH [place] DAILY Medical Branch OMEPRAZOLE 2021-03 Yes [id number] 40mg TAKE 1 [facility] 40 mg 1-03 CAPSULE BY [facility] of capsule 00:00: MOUTH [place] DAILY Medical Branch OMEPRAZOLE 2021-03 Yes [id number] 40mg TAKE 1 [facility] 40 mg 1-03 CAPSULE BY [facility] of capsule 00:00: MOUTH [place] DAILY Medical Branch OMEPRAZOLE 2021-03 Yes [id number] 40mg TAKE 1 [facility] 40 mg 1-03 CAPSULE BY ity of capsule 00:00: MOUTH [place] DAILY Medical Branch OMEPRAZOLE 2021-03 Yes [id number] 40mg TAKE 1 [facility] 40 mg 1-03 CAPSULE BY ity of capsule 00:00: MOUTH [place] DAILY Medical Branch OMEPRAZOLE 2021-03 Yes [id number] 40mg TAKE 1 [facility] 40 mg 1-03 CAPSULE BY ity of capsule 00:00: [facility] DAILY Medical Branch OMEPRAZOLE 2021-03 Yes [id number] 40mg TAKE 1 [facility] 40 mg 1-03 CAPSULE BY ity of capsule 00:00: MOUTH [place] 00 DAILY Medical Branch OMEPRAZOLE 2021-03 Yes [id number] 40mg TAKE 1 [facility] 40 mg 1-03 CAPSULE BY ity of capsule 00:00: MOUTH [place] DAILY Medical Branch OMEPRAZOLE 2021-03 Yes [id number] 40mg TAKE 1 [facility] 40 mg 1-03 CAPSULE BY ity of capsule 00:00: MOUTH [place] 00 DAILY Medical Branch GABAPENTIN 2021-03- No [id number] TAKE 2 [facility] 300 mg 1-03 12-14 CAPSULES ity of capsule 00:00: 00:00 BY MOUTH [place] 00 :00 TWICE Medical DAILY. Branch GABAPENTIN 2021-03- No [id number] TAKE 2 [facility] 300 mg -03 12-14 CAPSULES ity of capsule 00:00: 00:00 BY MOUTH [place] 00 :00 TWICE Medical DAILY. Branch mexiletine 2021- Yes [id number] 200mg Take 1 [facility] 200 mg 0-27 capsule by [facility] of capsule 00:00: mouth [place] 00 every 8 Medical (eight) Branch hours. mexiletine 2021-03 Yes [id number] 200mg Take 1 [facility] 200 mg 0-27 capsule by [facility] of capsule 00:00: mouth [place] 00 every 8 Medical (eight) Branch hours. mexiletine 2021-03 Yes [id number] 200mg Take 1 [facility] 200 mg 0-27 capsule by it[facility] of capsule 00:00: mouth [place] 00 every 8 Medical (eight) Branch hours. mexiletine 2021-03 Yes [id number] 200mg Take 1 [facility] 200 mg 0-27 capsule by it[facility] of capsule 00:00: mouth [place] 00 every 8 Medical (eight) Branch hours. mexiletine 2021-03 Yes [id number] 200mg Take 1 [facility] 200 mg 0-27 capsule by it[facility] of capsule 00:00: mouth [place] 00 every 8 Medical (eight) Branch hours. mexiletine 2021-03 Yes [id number] 200mg Take 1 [facility] 200 mg 0-27 capsule by it[facility] of capsule 00:00: mouth [place] 00 every 8 Medical (eight) Branch hours. mexiletine 2021-03 Yes [id number] 200mg Take 1 [facility] 200 mg 0-27 capsule by it[facility] of capsule 00:00: mouth [place] 00 every 8 Medical (eight) Branch hours. mexiletine 2021-03 Yes [id number] 200mg Take 1 [facility] 200 mg 0-27 capsule by ity of capsule 00:00: mouth [place] 00 every 8 Medical (eight) Branch hours. mexiletine 2021-03 Yes [id number] 200mg Take 1 [facility] 200 mg 0-27 capsule by [facility] of capsule 00:00: mouth [place] 00 every 8 Medical (eight) Branch hours. mexiletine 2021- Yes [id number] 200mg Take 1 [facility] 200 mg 0-27 capsule by it[facility] of capsule 00:00: mouth [place] 00 every 8 Medical (eight) Branch hours. mexiletine 2021-03 Yes [id number] 200mg Take 1 [facility] 200 mg 0-27 capsule by it[facility] of capsule 00:00: mouth [place] 00 every 8 Medical (eight) Branch hours. mexiletine 2021-1 Yes [id number] 200mg Take 1 [facility] 200 mg 0-27 capsule by ity of capsule 00:00: mouth [place] 00 every 8 Medical (eight) Branch hours. mexiletine 2021-1 Yes [id number] 200mg Take 1 [facility] 200 mg 0-27 capsule by it[facility] of capsule 00:00: mouth [place] 00 every 8 Medical (eight) Branch hours. mexiletine 2021-1 Yes [id number] 200mg Take 1 [facility] 200 mg 0-27 capsule by it[facility] of capsule 00:00: mouth [place] 00 every 8 Medical (eight) Branch hours. mexiletine 2021-1 Yes [id number] 200mg Take 1 [facility] 200 mg 0-27 capsule by it[facility] of capsule 00:00: mouth [place] 00 every 8 Medical (eight) Branch hours. mexiletine 2021- Yes [id number] 200mg Take 1 [facility] 200 mg 0-27 capsule by [facility] of capsule 00:00: mouth [place] 00 every 8 Medical (eight) Branch hours. mexiletine 2021- Yes [id number] 200mg Take 1 [facility] 200 mg 0-27 capsule by [facility] of capsule 00:00: mouth [place] 00 every 8 Medical (eight) Branch hours. mexiletine 2021-1 Yes [id number] 200mg Take 1 [facility] 200 mg 0-27 capsule by it[facility] of capsule 00:00: mouth [place] 00 every 8 Medical (eight) Branch hours. mexiletine 2021-1 Yes [id number] 200mg Take 1 [facility] 200 mg 0-27 capsule by it[facility] of capsule 00:00: mouth [place] 00 every 8 Medical (eight) Branch hours. mexiletine 2021-1 Yes [id number] 200mg Take 1 [facility] 200 mg 0-27 capsule by ity of capsule 00:00: mouth [place] 00 every 8 Medical (eight) Branch hours. mexiletine 2021-1 Yes [id number] 200mg Take 1 [facility] 200 mg 0-27 capsule by ity of capsule 00:00: mouth [place] 00 every 8 Medical (eight) Branch hours. mexiletine 2021-1 Yes [id number] 200mg Take 1 [facility] 200 mg 0-27 capsule by ity of capsule 00:00: mouth [place] 00 every 8 Medical (eight) Branch hours. mexiletine 2021-1 Yes [id number] 200mg Take 1 [facility] 200 mg 0-27 capsule by ity of capsule 00:00: mouth [place] 00 every 8 Medical (eight) Branch hours. mexiletine 2021- Yes [id number] 200mg Take 1 [facility] 200 mg 0-27 capsule by ity of capsule 00:00: mouth [place] 00 every 8 Medical (eight) Branch hours. mexiletine 2021- Yes [id number] 200mg Take 1 [facility] 200 mg 0-27 capsule by it[facility] of capsule 00:00: mouth [place] 00 every 8 Medical (eight) Branch hours. mexiletine 2021-03 Yes [id number] 200mg Take 1 [facility] 200 mg 0-27 capsule by it[facility] of capsule 00:00: mouth [place] 00 every 8 Medical (eight) Branch hours. mexiletine 2021- Yes [id number] 200mg Take 1 [facility] 200 mg 0-27 capsule by [facility] of capsule 00:00: mouth [place] 00 every 8 Medical (eight) Branch hours. mexiletine 2021- Yes [id number] 200mg Take 1 [facility] 200 mg 0-27 capsule by it[facility] of capsule 00:00: mouth [place] 00 every 8 Medical (eight) Branch hours. mexiletine 2021-03 Yes [id number] 200mg Take 1 [facility] 200 mg 0-27 capsule by ity of capsule 00:00: mouth [place] 00 every 8 Medical (eight) Branch hours. mexiletine 2021- Yes [id number] 200mg Take 1 [facility] 200 mg 0-27 capsule by ity of capsule 00:00: mouth [place] 00 every 8 Medical (eight) Branch hours. mexiletine 2021- Yes [id number] 200mg Take 1 [facility] 200 mg 0-27 capsule by ity of capsule 00:00: mouth [place] 00 every 8 Medical (eight) Branch hours. mexiletine 2021- Yes [id number] 200mg Take 1 [facility] 200 mg 0-27 capsule by ity of capsule 00:00: mouth [place] 00 every 8 Medical (eight) Branch hours. mexiletine 2021-1 Yes [id number] 200mg Take 1 [facility] 200 mg 0-27 capsule by ity of capsule 00:00: mouth [place] 00 every 8 Medical (eight) Branch hours. mexiletine 2021- Yes [id number] 200mg Take 1 [facility] 200 mg 0-27 capsule by ity of capsule 00:00: mouth [place] 00 every 8 Medical (eight) Branch hours. mexiletine 2021-1 Yes [id number] 200mg Take 1 [facility] 200 mg 0-27 capsule by ity of capsule 00:00: mouth [place] 00 every 8 Medical (eight) Branch hours. mexiletine 2021-1 Yes [id number] 200mg Take 1 [facility] 200 mg 0-27 capsule by ity of capsule 00:00: mouth [place] 00 every 8 Medical (eight) Branch hours. mexiletine 2021-1 Yes [id number] 200mg Take 1 [facility] 200 mg 0-27 capsule by ity of capsule 00:00: mouth [place] 00 every 8 Medical (eight) Branch hours. mexiletine 2021-1 Yes [id number] 200mg Take 1 [facility] 200 mg 0-27 capsule by it[facility] of capsule 00:00: mouth [place] 00 every 8 Medical (eight) Branch hours. mexiletine 2021-1 Yes [id number] 200mg Take 1 [facility] 200 mg 0-27 capsule by ity of capsule 00:00: mouth [place] 00 every 8 Medical (eight) Branch hours. mexiletine 2021- Yes [id number] 200mg Take 1 [facility] 200 mg 0-27 capsule by ity of capsule 00:00: mouth [place] 00 every 8 Medical (eight) Branch hours. mexiletine 2021- Yes [id number] 200mg Take 1 [facility] 200 mg 0-27 capsule by ity of capsule 00:00: mouth [place] 00 every 8 Medical (eight) Branch hours. mexiletine 2021-1 Yes [id number] 200mg Take 1 [facility] 200 mg 0-27 capsule by ity of capsule 00:00: mouth [place] 00 every 8 Medical (eight) Branch hours. mexiletine 2021-1 Yes [id number] 200mg Take 1 [facility] 200 mg 0-27 capsule by ity of capsule 00:00: mouth [place] 00 every 8 Medical (eight) Branch hours. mexiletine 2021-1 Yes [id number] 200mg Take 1 [facility] 200 mg 0-27 capsule by ity of capsule 00:00: mouth [place] 00 every 8 Medical (eight) Branch hours. mexiletine 2021-1 Yes [id number] 200mg Take 1 [facility] 200 mg 0-27 capsule by ity of capsule 00:00: mouth [place] 00 every 8 Medical (eight) Branch hours. mexiletine 2021-1 Yes [id number] 200mg Take 1 [facility] 200 mg 0-27 capsule by ity of capsule 00:00: mouth [place] 00 every 8 Medical (eight) Branch hours. mexiletine 2021-03 Yes [id number] 200mg Take 1 [facility] 200 mg 0-27 capsule by ity of capsule 00:00: mouth [place] 00 every 8 Medical (eight) Branch hours. mexiletine 2021-03 Yes [id number] 200mg Take 1 [facility] 200 mg 0-27 capsule by ity of capsule 00:00: mouth [place] 00 every 8 Medical (eight) Branch hours. mexiletine 2021-03 Yes [id number] 200mg Take 1 [facility] 200 mg 0-27 capsule by ity of capsule 00:00: mouth [place] 00 every 8 Medical (eight) Branch hours. mexiletine 2021-03 Yes [id number] 200mg Take 1 [facility] 200 mg 0-27 capsule by ity of capsule 00:00: mouth [place] 00 every 8 Medical (eight) Branch hours. mexiletine 2021-03 Yes [id number] 200mg Take 1 [facility] 200 mg 0-27 capsule by ity of capsule 00:00: mouth [place] 00 every 8 Medical (eight) Branch hours. mexiletine 2021-03 Yes [id number] 200mg Take 1 [facility] 200 mg 0-27 capsule by ity of capsule 00:00: mouth [place] 00 every 8 Medical (eight) Branch hours. mexiletine 2021-03 Yes [id number] 200mg Take 1 [facility] 200 mg 0-27 capsule by ity of capsule 00:00: mouth [place] 00 every 8 Medical (eight) Branch hours. mexiletine 2021-03 Yes [id number] 200mg Take 1 [facility] 200 mg 0-27 capsule by ity of capsule 00:00: mouth [place] 00 every 8 Medical (eight) Branch hours. mexiletine 2021-03 Yes [id number] 200mg Take 1 [facility] 200 mg 0-27 capsule by ity of capsule 00:00: mouth [place] 00 every 8 Medical (eight) Branch hours. mexiletine 2021- Yes [id number] 200mg Take 1 [facility] 200 mg 0-27 capsule by ity of capsule 00:00: mouth [place] 00 every 8 Medical (eight) Branch hours. mexiletine 2021- Yes [id number] 200mg Take 1 [facility] 200 mg 0-27 capsule by ity of capsule 00:00: mouth [place] 00 every 8 Medical (eight) Branch hours. mexiletine 2021-033- No [id number] 200mg Take 1 [facility] 200 mg 0-27 04-17 capsule by ity of capsule 00:00: 00:00 mouth [place] 00 :00 every 8 Medical (eight) Branch hours. warfarin 2021-03 Yes [id number] 10mg Take 2 [facility] mg tablet 0-26 tablets by ity of 00:00: mouth [place] 00 every Medical evening. Branch Current dosage 10mg x 5 days/week, 7.5mg x 2 days /week warfarin 2021-03 Yes [id number] 10mg Take 2 [facility] mg tablet 0-26 tablets by ity of 00:00: mouth [place] 00 every Medical evening. Branch Current dosage 10mg x 5 days/week, 7.5mg x 2 days /week warfarin 2021-03 Yes [id number] 10mg Take 2 [facility] mg tablet 0-26 tablets by ity of 00:00: mouth [place] 00 every Medical evening. Branch Current dosage 10mg x 5 days/week, 7.5mg x 2 days /week warfarin 2021-03 Yes [id number] 10mg Take 2 [facility] mg tablet 0-26 tablets by ity of 00:00: mouth [place] 00 every Medical evening. Branch Current dosage 10mg x 5 days/week, 7.5mg x 2 days /week warfarin 2021-03 Yes [id number] 10mg Take 2 [facility] mg tablet 0-26 tablets by ity of 00:00: mouth [place] 00 every Medical evening. Branch Current dosage 10mg x 5 days/week, 7.5mg x 2 days /week warfarin 2021-03 Yes [id number] 10mg Take 2 [facility] mg tablet 0-26 tablets by ity of 00:00: mouth [place] 00 every Medical evening. Branch Current dosage 10mg x 5 days/week, 7.5mg x 2 days /week warfarin 2021-03 Yes [id number] 10mg Take 2 [facility] mg tablet 0-26 tablets by ity of 00:00: mouth [place] 00 every Medical evening. Branch Current dosage 10mg x 5 days/week, 7.5mg x 2 days /week warfarin 2021-03 Yes [id number] 10mg Take 2 [facility] mg tablet 0-26 tablets by ity of 00:00: mouth [place] 00 every Medical evening. Branch Current dosage 10mg x 5 days/week, 7.5mg x 2 days /week warfarin 2021-03- No [id number] 10mg Take 2 [facility] mg tablet 0-26 11-11 tablets by ity of 00:00: 00:00 mouth [place] 00 :00 every Medical evening. Branch Current dosage 10mg x 5 days/week, 7.5mg x 2 days /week warfarin 2021-03 Yes [id number] 7.5mg Take 1 [facility] n[facility] 7.5 mg 0-14 tablet by ity of tablet 00:00: mouth [place] 00 every Medical evening. Branch Current dosage 10mg 5xweek and 7.5mg 2xweek warfarin 2021-03- No [id number] 7.5mg Take 1 [facility] 7.5 mg 0-14 10-26 tablet by ity of tablet 00:00: 00:00 mouth [place] 00 :00 every Medical evening. Branch Current dosage 10mg 5xweek and 7.5mg 2xweek bumetanide Yes 2mg Take 2 mg [facility] 2 mg tablet 9-29 by mouth ity of 14:18: daily. 3 [place] 32 mg AM and Medical 2 mg PM. Branch KCL 10 mEq Yes 10meq Take 10 [facility] vers tablet 9-29 mEq by ity of 14:18: mouth [place] 32 daily. Medical Branch spironolact Yes 12.5mg Take 12.5 [facility] one 25 mg 9-29 mg by ity of tablet 14:18: mouth in [place] 32 the Medical morning. Branch bumetanide Yes 2mg Take 2 mg [facility] 2 mg tablet 9-29 by mouth ity of 14:18: daily. 3 [place] 32 mg AM and Medical 2 mg PM. Branch KCL 10 mEq Yes 10meq Take 10 [facility] vers tablet 9-29 mEq by ity of 14:18: mouth [place] 32 daily. Medical Branch spironolact Yes 12.5mg Take 12.5 [facility] one 25 mg 9-29 mg by ity of tablet 14:18: mouth in [place] 32 the Medical morning. Branch bumetanide Yes 2mg Take 2 mg [facility] 2 mg tablet 9-29 by mouth ity of 14:18: daily. 3 [place] 32 mg AM and Medical 2 mg PM. Branch KCL 10 mEq Yes 10meq Take 10 [facility] vers tablet 9-29 mEq by ity of 14:18: mouth [place] 32 daily. Medical Branch spironolact Yes 12.5mg Take 12.5 [facility] one 25 mg 9-29 mg by ity of tablet 14:18: mouth in [place] 32 the Medical morning. Branch bumetanide Yes 2mg Take 2 mg [facility] 2 mg tablet 9-29 by mouth ity of 14:18: daily. 3 [place] 32 mg AM and Medical 2 mg PM. Branch KCL 10 mEq Yes 10meq Take 10 [facility] vers tablet 9-29 mEq by ity of 14:18: mouth [place] 32 daily. Medical Branch spironolact Yes 12.5mg Take 12.5 [facility] one 25 mg 9-29 mg by ity of tablet 14:18: mouth in [place] the Medical morning. Branch bumetanide Yes 2mg Take 2 mg [facility] 2 mg tablet 9-29 by mouth ity of 14:18: daily. 3 [place] 32 mg AM and Medical 2 mg PM. Branch KCL 10 mEq Yes 10meq Take 10 [facility] vers tablet 9-29 mEq by ity of 14:18: mouth [place] 32 daily. Medical Branch spironolact Yes 12.5mg Take 12.5 [facility] one 25 mg 9-29 mg by ity of tablet 14:18: mouth in [place] the Medical morning. Branch bumetanide Yes 2mg Take 2 mg [facility] 2 mg tablet 9-29 by mouth ity of 14:18: daily. 3 [place] 32 mg AM and Medical 2 mg PM. Branch KCL 10 mEq Yes 10meq Take 10 [facility] vers tablet 9-29 mEq by ity of 14:18: mouth [place] 32 daily. Medical Branch spironolact Yes 12.5mg Take 12.5 [facility] one 25 mg 9-29 mg by ity of tablet 14:18: mouth in [place] [address] the Medical morning. Branch bumetanide Yes 2mg Take 2 mg [facility] 2 mg tablet 9-29 by mouth ity of 14:18: daily. 3 [place] 32 mg AM and Medical 2 mg PM. Branch KCL 10 mEq Yes 10meq Take 10 [facility] vers tablet 9-29 mEq by ity of 14:18: mouth [place] 32 daily. Medical Branch spironolact Yes 12.5mg Take 12.5 [facility] one 25 mg 9-29 mg by ity of tablet 14:18: mouth in [place] 32 the Medical morning. Branch bumetanide 0 Yes 2mg Take 2 mg [facility] 2 mg tablet 9-29 by mouth ity of 14:18: daily. 3 [place] 32 mg AM and Medical 2 mg PM. Branch KCL 10 mEq 0 Yes 10meq Take 10 [facility] vers tablet 9-29 mEq by ity of 14:18: mouth [place] 32 daily. Medical Branch spironolact Yes 12.5mg Take 12.5 [facility] one 25 mg 9-29 mg by ity of tablet 14:18: mouth in [place] 32 the Medical morning. Branch bumetanide Yes 2mg Take 2 mg [facility] 2 mg tablet 9-29 by mouth ity of 14:18: daily. 3 [place] 32 mg AM and Medical 2 mg PM. Branch KCL 10 mEq Yes 10meq Take 10 [facility] vers tablet 9-29 mEq by ity of 14:18: mouth [place] 32 daily. Medical Branch spironolact Yes 12.5mg Take 12.5 [facility] one 25 mg 9-29 mg by ity of tablet 14:18: mouth in [place] 32 the Medical morning. Branch bumetanide 0 Yes 2mg Take 2 mg [facility] 2 mg tablet 9-29 by mouth ity of 14:18: daily. 3 [place] 32 mg AM and Medical 2 mg PM. Branch KCL 10 mEq 0 Yes 10meq Take 10 [facility] vers tablet 9-29 mEq by ity of 14:18: mouth [place] 32 daily. Medical Branch spironolact Yes 12.5mg Take 12.5 [facility] one 25 mg 9-29 mg by ity of tablet 14:18: mouth in [place] 32 the Medical morning. Branch bumetanide 0 Yes 2mg Take 2 mg [facility] 2 mg tablet 9-29 by mouth ity of 14:18: daily. 3 [place] 32 mg AM and Medical 2 mg PM. Branch KCL 10 mEq 0 Yes 10meq Take 10 [facility] vers tablet 9-29 mEq by ity of 14:18: mouth [place] 32 daily. Medical Branch spironolact 2022-0 Yes 12.5mg Take 12.5 [facility] one 25 mg 9-29 mg by ity of tablet 14:18: mouth in [place] [address] the Medical morning. Branch bumetanide 2022-0 Yes 2mg Take 2 mg [facility] 2 mg tablet 9-29 by mouth ity of 14:18: daily. 3 [place] 32 mg AM and Medical 2 mg PM. Branch spironolact 2022-0 Yes 12.5mg Take 12.5 [facility] one 25 mg 9-29 mg by ity of tablet 14:18: mouth in [place] [address] the Medical morning. Branch bumetanide 2022-0 Yes 2mg Take 2 mg [facility] 2 mg tablet 9-29 by mouth ity of 14:18: daily. 3 [place] 32 mg AM and Medical 2 mg PM. Branch spironolact 2-0 Yes 12.5mg Take 12.5 [facility] one 25 mg 9-29 mg by ity of tablet 14:18: mouth in [place] [address] the Medical morning. Branch bumetanide 2022-0 Yes 2mg Take 2 mg [facility] 2 mg tablet 9-29 by mouth ity of 14:18: daily. 3 [place] 32 mg AM and Medical 2 mg PM. Branch spironolact 2-0 Yes 12.5mg Take 12.5 [facility] one 25 mg 9-29 mg by ity of tablet 14:18: mouth in [place] [address] the Medical morning. Branch bumetanide 2022-0 Yes 2mg Take 2 mg [facility] 2 mg tablet 9-29 by mouth ity of 14:18: daily. 3 [place] 32 mg AM and Medical 2 mg PM. Branch spironolact 2022-0 Yes 12.5mg Take 12.5 [facility] one 25 mg 9-29 mg by ity of tablet 14:18: mouth in [place] [address] the Medical morning. Branch bumetanide 2022-0 Yes 2mg Take 2 mg [facility] 2 mg tablet 9-29 by mouth ity of 14:18: daily. 3 [place] 32 mg AM and Medical 2 mg PM. Branch spironolact 2022-0 Yes 12.5mg Take 12.5 [facility] one 25 mg 9-29 mg by ity of tablet 14:18: mouth in [place] [address] the Medical morning. Branch bumetanide 2022-0 Yes 2mg Take 2 mg [facility] 2 mg tablet 9-29 by mouth ity of 14:18: daily. 3 [place] 32 mg AM and Medical 2 mg PM. Branch spironolact 2022-0 Yes 12.5mg Take 12.5 [facility] one 25 mg 9-29 mg by ity of tablet 14:18: mouth in [place] [address] the Medical morning. Branch bumetanide 2022-0 Yes 2mg Take 2 mg [facility] 2 mg tablet 9-29 by mouth ity of 14:18: daily. 3 [place] 32 mg AM and Medical 2 mg PM. Branch spironolact 2022-0 Yes 12.5mg Take 12.5 [facility] one 25 mg 9-29 mg by ity of tablet 14:18: mouth in [place] [address] the Medical morning. Branch bumetanide 2022-0 Yes 2mg Take 2 mg [facility] 2 mg tablet 9-29 by mouth ity of 14:18: daily. 3 [place] 32 mg AM and Medical 2 mg PM. Branch spironolact 2022-0 Yes 12.5mg Take 12.5 [facility] one 25 mg 9-29 mg by ity of tablet 14:18: mouth in [place] [address] the Medical morning. Branch bumetanide 2022-0 Yes 2mg Take 2 mg [facility] 2 mg tablet 9-29 by mouth ity of 14:18: daily. 3 [place] 32 mg AM and Medical 2 mg PM. Branch spironolact 2022-0 Yes 12.5mg Take 12.5 [facility] one 25 mg 9-29 mg by ity of tablet 14:18: mouth in [place] [address] the Medical morning. Branch bumetanide 2022-0 Yes 2mg Take 2 mg [facility] 2 mg tablet 9-29 by mouth ity of 14:18: daily. 3 [place] 32 mg AM and Medical 2 mg PM. Branch spironolact 2022-0 Yes 12.5mg Take 12.5 [facility] one 25 mg 9-29 mg by ity of tablet 14:18: mouth in [place] [address] the Medical morning. Branch bumetanide 2022-0 Yes 2mg Take 2 mg [facility] 2 mg tablet 9-29 by mouth ity of 14:18: daily. 3 [place] 32 mg AM and Medical 2 mg PM. Branch spironolact 2022-0 Yes 12.5mg Take 12.5 [facility] one 25 mg 9-29 mg by ity of tablet 14:18: mouth in [place] [address] the Medical morning. Branch bumetanide 2022-0 Yes 2mg Take 2 mg [facility] 2 mg tablet 9-29 by mouth ity of 14:18: daily. 3 [place] 32 mg AM and Medical 2 mg PM. Branch spironolact 2022-0 Yes 12.5mg Take 12.5 [facility] one 25 mg 9-29 mg by ity of tablet 14:18: mouth in [place] [address] the Medical morning. Branch bumetanide 2022-0 Yes 2mg Take 2 mg [facility] 2 mg tablet 9-29 by mouth ity of 14:18: daily. 3 [place] 32 mg AM and Medical 2 mg PM. Branch spironolact 2022-0 Yes 12.5mg Take 12.5 [facility] 25 mg 9-29 mg by ity of tablet 14:18: mouth in [place] [address] the Medical morning. Branch bumetanide 2022-0 Yes 2mg Take 2 mg [facility] [place] 2 mg tablet 9-29 by mouth ity of 14:18: daily. 3 [place] 32 mg AM and Medical 2 mg PM. Branch spironolact 2022-0 Yes 12.5mg Take 12.5 [facility] one 25 mg 9-29 mg by ity of tablet 14:18: mouth in [place] [address] the Medical morning. Branch bumetanide 2022-0 Yes 2mg Take 2 mg [facility] [place] 2 mg tablet 9-29 by mouth ity of 14:18: daily. 3 [place] 32 mg AM and Medical 2 mg PM. Branch spironolact 2022-0 Yes 12.5mg Take 12.5 [facility] one 25 mg 9-29 mg by ity of tablet 14:18: mouth in [place] [address] the Medical morning. Branch bumetanide 2022-0 Yes 2mg Take 2 mg [facility] [place] 2 mg tablet 9-29 by mouth ity of 14:18: daily. 3 [place] 32 mg AM and Medical 2 mg PM. Branch spironolact 2022-0 Yes 12.5mg Take 12.5 [facility] one 25 mg 9-29 mg by ity of tablet 14:18: mouth in [place] [address] the Medical morning. Branch bumetanide 2022-0 Yes 2mg Take 2 mg [facility] [place] 2 mg tablet 9-29 by mouth ity of 14:18: daily. 3 [place] 32 mg AM and Medical 2 mg PM. Branch spironolact 2022-0 Yes 12.5mg Take 12.5 [facility] one 25 mg 9-29 mg by ity of tablet 14:18: mouth in [place] [address] the Medical morning. Branch bumetanide 2022-0 Yes 2mg Take 2 mg [facility] [place] 2 mg tablet 9-29 by mouth ity of 14:18: daily. 3 [place] 32 mg AM and Medical 2 mg PM. Branch spironolact 2022-0 Yes 12.5mg Take 12.5 [facility] one 25 mg 9-29 mg by ity of tablet 14:18: mouth in [place] [address] the Medical morning. Branch bumetanide 2022-0 Yes 2mg Take 2 mg [facility] [place] 2 mg tablet 9-29 by mouth ity of 14:18: daily. 3 [place] 32 mg AM and Medical 2 mg PM. Branch spironolact 2022-0 Yes 12.5mg Take 12.5 [facility] one 25 mg 9-29 mg by ity of tablet 14:18: mouth in [place] [address] the Medical morning. Branch bumetanide 2022-0 Yes 2mg Take 2 mg [facility] [place] 2 mg tablet 9-29 by mouth ity of 14:18: daily. 3 [place] 32 mg AM and Medical 2 mg PM. Branch spironolact 2-0 Yes 12.5mg Take 12.5 [facility] one 25 mg 9-29 mg by ity of tablet 14:18: mouth in [place] [address] the Medical morning. Branch bumetanide 2022-0 Yes 2mg Take 2 mg [place] 2 mg tablet 9-29 by mouth ity of 14:18: daily. 3 [place] 32 mg AM and Medical 2 mg PM. Branch spironolact 2022-0 Yes 12.5mg Take 12.5 [facility] one 25 mg 9-29 mg by ity of tablet 14:18: mouth in [place] [address] the Medical morning. Branch bumetanide 2022-0 Yes 2mg Take 2 mg [place] 2 mg tablet 9-29 by mouth ity of 14:18: daily. 3 [place] 32 mg AM and Medical 2 mg PM. Branch spironolact 2022-0 Yes 12.5mg Take 12.5 [facility] one 25 mg 9-29 mg by ity of tablet 14:18: mouth in [place] [address] the Medical morning. Branch bumetanide 2022-0 Yes 2mg Take 2 mg [facility] [place] 2 mg tablet 9-29 by mouth ity of 14:18: daily. 3 [place] 32 mg AM and Medical 2 mg PM. Branch spironolact 2022-0 Yes 12.5mg Take 12.5 [facility] one 25 mg 9-29 mg by ity of tablet 14:18: mouth in [place] [address] the Medical morning. Branch bumetanide 2022-0 Yes 2mg Take 2 mg [facility] [place] 2 mg tablet 9-29 by mouth ity of 14:18: daily. 3 [place] 32 mg AM and Medical 2 mg PM. Branch spironolact 2022-0 Yes 12.5mg Take 12.5 [facility] one 25 mg 9-29 mg by ity of tablet 14:18: mouth in [place] [address] the Medical morning. Branch bumetanide 2022-0 Yes 2mg Take 2 mg [place] 2 mg tablet 9-29 by mouth ity of 14:18: daily. 3 [place] 32 mg AM and Medical 2 mg PM. Branch spironolact 2022-0 Yes 12.5mg Take 12.5 [facility] one 25 mg 9-29 mg by ity of tablet 14:18: mouth in [place] [address] the Medical morning. Branch bumetanide 2022-0 Yes 2mg Take 2 mg [place] 2 mg tablet 9-29 by mouth ity of 14:18: daily. 3 [place] 32 mg AM and Medical 2 mg PM. Branch spironolact 2022-0 Yes 12.5mg Take 12.5 [facility] one 25 mg 9-29 mg by ity of tablet 14:18: mouth in [place] [address] the Medical morning. Branch bumetanide 2022-0 Yes 2mg Take 2 mg [facility] [place] 2 mg tablet 9-29 by mouth ity of 14:18: daily. 3 [place] 32 mg AM and Medical 2 mg PM. Branch spironolact 2022-0 Yes 12.5mg Take 12.5 [facility] one 25 mg 9-29 mg by ity of tablet 14:18: mouth in [place] [address] the Medical morning. Branch bumetanide 2022-0 Yes 2mg Take 2 mg [facility] [place] 2 mg tablet 9-29 by mouth ity of 14:18: daily. 3 [place] 32 mg AM and Medical 2 mg PM. Branch spironolact 2022-0 Yes 12.5mg Take 12.5 [facility] one 25 mg 9-29 mg by ity of tablet 14:18: mouth in [place] [address] the Medical morning. Branch bumetanide 2022-0 Yes 2mg Take 2 mg [facility] [place] 2 mg tablet 9-29 by mouth ity of 14:18: daily. 3 [place] 32 mg AM and Medical 2 mg PM. Branch spironolact 2022-0 Yes 12.5mg Take 12.5 [facility] one 25 mg 9-29 mg by ity of tablet 14:18: mouth in [place] [address] the Medical morning. Branch bumetanide 2022-0 Yes 2mg Take 2 mg [facility] [place] 2 mg tablet 9-29 by mouth ity of 14:18: daily. 3 [place] 32 mg AM and Medical 2 mg PM. Branch spironolact 2022-0 Yes 12.5mg Take 12.5 [facility] one 25 mg 9-29 mg by ity of tablet 14:18: mouth in [place] [address] the Medical morning. Branch bumetanide 2022-0 Yes 2mg Take 2 mg [place] 2 mg tablet 9-29 by mouth ity of 14:18: daily. 3 [place] 32 mg AM and Medical 2 mg PM. Branch spironolact 2-0 Yes 12.5mg Take 12.5 [facility] one 25 mg 9-29 mg by ity of tablet 14:18: mouth in [place] [address] the Medical morning. Branch bumetanide 2-0 Yes 2mg Take 2 mg [place] 2 mg tablet 9-29 by mouth ity of 14:18: daily. 3 [place] 32 mg AM and Medical 2 mg PM. Branch spironolact 2022-0 Yes 12.5mg Take 12.5 [facility] one 25 mg 9-29 mg by ity of tablet 14:18: mouth in [place] [address] the Medical morning. Branch spironolact 2022-0 Yes 12.5mg Take 12.5 [facility] one 9-25 mg by ity of (ALDACTONE) 18:56: mouth in [place] 25 mg 38 the Medical tablet morning. Branch spironolact 2022-0 Yes 12.5mg Take 12.5 [facility] one 9-25 mg by ity of (ALDACTONE) 18:56: mouth in [place] 25 mg 38 the Medical tablet morning. Branch KCL 10 mEq 2021-0 Yes 10meq Take 10 [facility] vers tablet 9-22 mEq by ity of 10:07: mouth [place] 25 daily. Medical Branch KCL 10 mEq 2021-0 Yes 10meq Take 10 [facility] vers tablet 9-22 mEq by ity of 10:07: mouth [place] 25 daily. Medical Branch KCL 10 mEq 2021-0 Yes 10meq Take 10 [facility] vers tablet 9-22 mEq by ity of 10:07: mouth [place] 25 daily. Medical Branch KCL 10 mEq 2021-0 Yes 10meq Take 10 [facility] vers tablet 9-22 mEq by ity of 10:07: mouth [place] 25 daily. Medical Branch bumetanide 2021-0 Yes 2mg Take 2 mg [place] 2 mg tablet 9-22 by mouth ity of 10:06: daily. 3 [place] 49 mg AM and Medical 2 mg PM. Branch bumetanide 2021-0 Yes 2mg Take 2 mg [place] 2 mg tablet 9-22 by mouth ity of 10:06: daily. 3 [place] 49 mg AM and Medical 2 mg PM. Branch bumetanide 2021-0 Yes 2mg Take 2 mg [place] 2 mg tablet 9-22 by mouth ity of 10:06: daily. 3 [place] 49 mg AM and Medical 2 mg PM. Branch bumetanide 2021-0 Yes 2mg Take 2 mg [place] 2 mg tablet 9-22 by mouth ity of 10:06: daily. 3 [place] 49 mg AM and Medical 2 mg PM. Branch potassium 2021-0 2021- No 10meq 10 mEq, IV [facility] chloride in 11-25 Piggyback, i ty of water 10 05:45: 06:18 ONCE, 1 [place] mEq/100 mL 00 :00 dose, On Medic al RTU 10 mEq Fri [place] 11/25/21 at 0045, Administer over 60 Minutes, 100 mL potassium 2021-0 2021- No 10meq 10 mEq, IV [facility] chloride in 11-25 Piggyback, i ty of water 10 03:30: 04:11 ONCE, 1 [place] mEq/100 mL 00 :54 dose, On Medic al RTU 10 mEq [place] 11/24/21 at 2230, Administer over 60 Minutes, 100 mL magnesium 2021-0 2021- No 2g 2 g, IV Univ ers sulfate in 11-25 Piggyback, it y of water 2 03:30: 05:14 Administer [place] as gram/50 mL 00 :14 over 60 Medica l (4 %) Minutes, Branch infusion 2 ONCE, 1 g dose, On [place] 11/24/21 at 2230, Routine KCL 2021-0 2021- No 40meq 40 mEq, [facility] (KLOR-CON 11-25 Oral, ity of M20) tablet 02:45: 02:59 ONCE, 1 [place] 40 mEq 00 :00 dose, On Medical [place] Branch 11/24/21 at 2145, BE bumetanide 0 Yes 2mg Take 2 mg [place] 2 mg tablet -15 by mouth ity of 20:29: daily. 3 [place] 48 mg AM and Medical 2 mg PM. Branch KCL 10 mEq 0 Yes 10meq Take 10 [facility] vers tablet 9-15 mEq by ity of 20:29: mouth [place] 48 daily. Medical Branch bumetanide 0 Yes 2mg Take 2 mg [place] 2 mg tablet 9-15 by mouth ity of 20:29: daily. 3 [place] 48 mg AM and Medical 2 mg PM. Branch KCL 10 mEq 2021-0 Yes 10meq Take 10 [facility] vers tablet 9-15 mEq by ity of 20:29: mouth [place] 48 daily. [facility] Branch spironolact 0 2021- No 25mg Take 25 mg [facility] one 25 mg 11-24 by mouth ity o f tablet 20:29: 00:00 daily. [place] 48 :00 [facility] Branch SERTraline 2021-0 Yes [id number] 100mg Take 1 [facility] 100 mg 9-14 tablet by ity of tablet 00:00: mouth in [place] [address] the [facility] morning Branch and 1 tablet in the evening. SERTraline 2021-0 Yes [id number] 100mg Take 1 [facility] 100 mg 9-14 tablet by ity of tablet 00:00: mouth in [place] [address] the [facility] morning Branch and 1 tablet in the evening. SERTraline 2021-0 Yes [id number] 100mg Take 1 [facility] 100 mg 9-14 tablet by ity of tablet 00:00: mouth in [place] [address] the [facility] morning Branch and 1 tablet in the evening. SERTraline 2022-0 Yes [id number] 100mg Take 1 [facility] 100 mg 9-14 tablet by ity of tablet 00:00: mouth in [place] [address] the Medical morning Branch and 1 tablet in the evening. SERTraline 2022-0 Yes [id number] 100mg Take 1 [facility] 100 mg 9-14 tablet by ity of tablet 00:00: mouth in [place] [address] the Medical morning Branch and 1 tablet in the evening. SERTraline 2022-0 Yes [id number] 100mg Take 1 [facility] 100 mg 9-14 tablet by ity of tablet 00:00: mouth in [place] [address] the Medical morning Branch and 1 tablet in the evening. SERTraline 2022-0 Yes [id number] 100mg Take 1 [facility] 100 mg 9-14 tablet by ity of tablet 00:00: mouth in [place] [address] the Medical morning Branch and 1 tablet in the evening. SERTraline 2022-0 Yes [id number] 100mg Take 1 [facility] 100 mg 9-14 tablet by ity of tablet 00:00: mouth in [place] [address] the Medical morning Branch and 1 tablet in the evening. SERTraline 2022-0 Yes [id number] 100mg Take 1 [facility] 100 mg 9-14 tablet by ity of tablet 00:00: mouth in [place] [address] the Medical morning Branch and 1 tablet in the evening. SERTraline 2022-0 Yes [id number] 100mg Take 1 [facility] 100 mg 9-14 tablet by ity of tablet 00:00: mouth in [place] [address] the Medical morning Branch and 1 tablet in the evening. SERTraline 2022-0 Yes [id number] 100mg Take 1 [facility] 100 mg 9-14 tablet by ity of tablet 00:00: mouth in [place] [address] the Medical morning Branch and 1 tablet in the evening. SERTraline 2022-0 Yes [id number] 100mg Take 1 [facility] 100 mg 9-14 tablet by ity of tablet 00:00: mouth in [place] [address] the Medical morning [place] and 1 tablet in the evening. SERTraline 2022-0 Yes [id number] 100mg Take 1 [facility] 100 mg 9-14 tablet by ity of tablet 00:00: mouth in [place] [address] the Medical morning [place] and 1 tablet in the evening. SERTraline 2022-0 Yes [id number] 100mg Take 1 [facility] 100 mg 9-14 tablet by ity of tablet 00:00: mouth in [place] 00 the Medical morning Branch and 1 tablet in the evening. SERTraline 2022-0 Yes [id number] 100mg Take 1 [facility] 100 mg 9-14 tablet by ity of tablet 00:00: mouth in [place] [address] the Medical morning Branch and 1 tablet in the evening. SERTraline 2022-0 Yes [id number] 100mg Take 1 [facility] 100 mg 9-14 tablet by ity of tablet 00:00: mouth in [place] [address] the Medical morning Branch and 1 tablet in the evening. SERTraline 2022-0 Yes [id number] 100mg Take 1 [facility] 100 mg 9-14 tablet by ity of tablet 00:00: mouth in [place] [address] the Medical morning Branch and 1 tablet in the evening. SERTraline 2022-0 Yes [id number] 100mg Take 1 [facility] 100 mg 9-14 tablet by ity of tablet 00:00: mouth in [place] [address] the [facility] morning [place] and 1 tablet in the evening. SERTraline 2022-0 Yes [id number] 100mg Take 1 [facility] 100 mg 9-14 tablet by ity of tablet 00:00: mouth in [address] morning [place] and 1 tablet in the evening. SERTraline 2022-0 Yes [id number] 100mg Take 1 [facility] 100 mg 9-14 tablet by ity of tablet 00:00: mouth in [address] morning [place] and 1 tablet in the evening. SERTraline 2022-0 Yes [id number] 100mg Take 1 [facility] 100 mg 9-14 tablet by ity of tablet 00:00: mouth in [address] morning [place] and 1 tablet in the evening. SERTraline 2022-0 Yes [id number] 100mg Take 1 [facility] 100 mg 9-14 tablet by ity of tablet 00:00: mouth in [address] morning [place] and 1 tablet in the evening. SERTraline 2022-0 Yes [id number] 100mg Take 1 [facility] 100 mg 9-14 tablet by ity of tablet 00:00: mouth in [address] morning [place] and 1 tablet in the evening. SERTraline 2022-0 Yes [id number] 100mg Take 1 [facility] 100 mg 9-14 tablet by ity of tablet 00:00: mouth in [address] morning [place] and 1 tablet in the evening. SERTraline 2022-0 Yes [id number] 100mg Take 1 [facility] 100 mg 9-14 tablet by ity of tablet 00:00: mouth in [place] [address] the Medical morning Branch and 1 tablet in the evening. SERTraline 2022-0 Yes [id number] 100mg Take 1 [facility] 100 mg 9-14 tablet by ity of tablet 00:00: mouth in [place] [address] the Medical morning Branch and 1 tablet in the evening. SERTraline 2022-0 Yes [id number] 100mg Take 1 [facility] 100 mg 9-14 tablet by ity of tablet 00:00: mouth in [place] [address] the Medical morning Branch and 1 tablet in the evening. SERTraline 2022-0 Yes [id number] 100mg Take 1 [facility] 100 mg 9-14 tablet by ity of tablet 00:00: mouth in [place] [address] the Medical morning Branch and 1 tablet in the evening. SERTraline 2022-0 Yes [id number] 100mg Take 1 [facility] 100 mg 9-14 tablet by ity of tablet 00:00: mouth in [place] [address] the Medical morning Branch and 1 tablet in the evening. SERTraline 2022-0 Yes [id number] 100mg Take 1 [facility] 100 mg 9-14 tablet by ity of tablet 00:00: mouth in [address] Medical morning [place] and 1 tablet in the evening. SERTraline 2022-0 Yes [id number] 100mg Take 1 [facility] 100 mg 9-14 tablet by ity of tablet 00:00: mouth in [place] [address] the Medical morning [place] and 1 tablet in the evening. SERTraline 2022-0 Yes [id number] 100mg Take 1 [facility] 100 mg 9-14 tablet by ity of tablet 00:00: mouth in [place] [address] the Medical morning [place] and 1 tablet in the evening. SERTraline 2022-0 Yes [id number] 100mg Take 1 [facility] 100 mg 9-14 tablet by ity of tablet 00:00: mouth in [place] [address] the Medical morning [place] and 1 tablet in the evening. SERTraline 2022-0 Yes [id number] 100mg Take 1 [facility] 100 mg 9-14 tablet by ity of tablet 00:00: mouth in [address] Medical morning [place] and 1 tablet in the evening. SERTraline 2022-0 Yes [id number] 100mg Take 1 [facility] 100 mg 9-14 tablet by ity of tablet 00:00: mouth in [address] Medical morning [place] and 1 tablet in the evening. SERTraline 2022-0 Yes [id number] 100mg Take 1 [facility] 100 mg 9-14 tablet by ity of tablet 00:00: mouth in [place] [address] the Medical morning Branch and 1 tablet in the evening. SERTraline 2022-0 Yes [id number] 100mg Take 1 [facility] 100 mg 9-14 tablet by ity of tablet 00:00: mouth in [place] [address] the Medical morning Branch and 1 tablet in the evening. SERTraline 2022-0 Yes [id number] 100mg Take 1 [facility] 100 mg 9-14 tablet by ity of tablet 00:00: mouth in [place] [address] the Medical morning Branch and 1 tablet in the evening. SERTraline 2022-0 Yes [id number] 100mg Take 1 [facility] 100 mg 9-14 tablet by ity of tablet 00:00: mouth in [place] [address] the Medical morning Branch and 1 tablet in the evening. SERTraline 2022-0 Yes [id number] 100mg Take 1 [facility] 100 mg 9-14 tablet by ity of tablet 00:00: mouth in [place] [address] the Medical morning Branch and 1 tablet in the evening. SERTraline 2022-0 Yes [id number] 100mg Take 1 [facility] 100 mg 9-14 tablet by ity of tablet 00:00: mouth in [place] [address] the Medical morning Branch and 1 tablet in the evening. SERTraline 2022-0 Yes [id number] 100mg Take 1 [facility] 100 mg 9-14 tablet by ity of tablet 00:00: mouth in [place] [address] the Medical morning [place] and 1 tablet in the evening. SERTraline 2022-0 Yes [id number] 100mg Take 1 [facility] 100 mg 9-14 tablet by ity of tablet 00:00: mouth in [place] [address] the Medical morning Branch and 1 tablet in the evening. SERTraline 2022-0 Yes [id number] 100mg Take 1 [facility] 100 mg 9-14 tablet by ity of tablet 00:00: mouth in [place] [address] the Medical morning Branch and 1 tablet in the evening. SERTraline 2022-0 Yes [id number] 100mg Take 1 [facility] 100 mg 9-14 tablet by ity of tablet 00:00: mouth in [place] [address] the Medical morning Branch and 1 tablet in the evening. SERTraline 2022-0 Yes [id number] 100mg Take 1 [facility] 100 mg 9-14 tablet by ity of tablet 00:00: mouth in [place] 00 the Medical morning Branch and 1 tablet in the evening. SERTraline 2022-0 Yes [id number] 100mg Take 1 [facility] 100 mg 9-14 tablet by ity of tablet 00:00: mouth in [place] [address] the Medical morning Branch and 1 tablet in the evening. SERTraline 2022-0 Yes [id number] 100mg Take 1 [facility] 100 mg 9-14 tablet by ity of tablet 00:00: mouth in [place] [address] the Medical morning Branch and 1 tablet in the evening. SERTraline 2022-0 Yes [id number] 100mg Take 1 [facility] 100 mg 9-14 tablet by ity of tablet 00:00: mouth in [place] [address] the Medical morning Branch and 1 tablet in the evening. SERTraline 2022-0 Yes [id number] 100mg Take 1 [facility] 100 mg 9-14 tablet by ity of tablet 00:00: mouth in [address] morning [place] and 1 tablet in the evening. SERTraline 2022-0 Yes [id number] 100mg Take 1 [facility] 100 mg 9-14 tablet by ity of tablet 00:00: mouth in [address] Medical morning [place] and 1 tablet in the evening. SERTraline 2022-0 Yes [id number] 100mg Take 1 [facility] 100 mg 9-14 tablet by ity of tablet 00:00: mouth in [address] morning [place] and 1 tablet in the evening. SERTraline 2022-0 Yes [id number] 100mg Take 1 [facility] 100 mg 9-14 tablet by ity of tablet 00:00: mouth in [address] morning [place] and 1 tablet in the evening. SERTraline 2022-0 Yes [id number] 100mg Take 1 [facility] 100 mg 9-14 tablet by ity of tablet 00:00: mouth in [address] morning [place] and 1 tablet in the evening. SERTraline 2022-0 Yes [id number] 100mg Take 1 [facility] 100 mg 9-14 tablet by ity of tablet 00:00: mouth in [address] morning [place] and 1 tablet in the evening. SERTraline 2022-0 Yes [id number] 100mg Take 1 [facility] 100 mg 9-14 tablet by ity of tablet 00:00: mouth in [address] morning [place] and 1 tablet in the evening. SERTraline 2022-0 Yes [id number] 100mg Take 1 [facility] 100 mg 9-14 tablet by ity of tablet 00:00: mouth in [place] [address] the Medical morning Branch and 1 tablet in the evening. SERTraline 2022-0 Yes [id number] 100mg Take 1 [facility] 100 mg 9-14 tablet by ity of tablet 00:00: mouth in [place] [address] the Medical morning Branch and 1 tablet in the evening. SERTraline 2022-0 Yes [id number] 100mg Take 1 [facility] 100 mg 9-14 tablet by ity of tablet 00:00: mouth in [place] [address] the Medical morning Branch and 1 tablet in the evening. SERTraline 2-0 Yes [id number] 100mg Take 1 [facility] 100 mg 9-14 tablet by ity of tablet 00:00: mouth in [place] [address] the Medical morning Branch and 1 tablet in the evening. SERTraline 2-0 Yes [id number] 100mg Take 1 [facility] 100 mg 9-14 tablet by ity of tablet 00:00: mouth in [place] [address] the Medical morning Branch and 1 tablet in the evening. SERTraline 2-0 Yes [id number] 100mg Take 1 [facility] 100 mg 9-14 tablet by ity of tablet 00:00: mouth in [place] [address] the Medical morning [place] and 1 tablet in the evening. SERTraline 2-0 Yes [id number] 100mg Take 1 [facility] 100 mg 9-14 tablet by ity of tablet 00:00: mouth in [place] [address] the Medical morning [place] and 1 tablet in the evening. SERTraline 2-0 Yes [id number] 100mg Take 1 [facility] 100 mg 9-14 tablet by ity of tablet 00:00: mouth in [place] [address] the Medical morning Branch and 1 tablet in the evening. SERTraline 2-0 Yes [id number] 100mg Take 1 [facility] 100 mg 9-14 tablet by ity of tablet 00:00: mouth in [place] [address] the Medical morning [place] and 1 tablet in the evening. SERTraline 2022-0 Yes [id number] 100mg Take 1 [facility] 100 mg 9-14 tablet by ity of tablet 00:00: mouth in [address] morning [place] and 1 tablet in the evening. SERTraline 2022-0 Yes [id number] 100mg Take 1 [facility] 100 mg 9-14 tablet by ity of tablet 00:00: mouth in [address] Medical morning [place] and 1 tablet in the evening. SERTraline 2-0 Yes [id number] 100mg Take 1 [facility] 100 mg 9-14 tablet by ity of tablet 00:00: mouth in [place] 00 the Medical morning Branch and 1 tablet in the evening. SERTraline 2022-0 Yes [id number] 100mg Take 1 [facility] 100 mg 9-14 tablet by ity of tablet 00:00: mouth in [place] 00 the Medical morning Branch and 1 tablet in the evening. SERTraline 2-0 Yes [id number] 100mg Take 1 [facility] 100 mg 9-14 tablet by ity of tablet 00:00: mouth in [place] 00 the Medical morning Branch and 1 tablet in the evening. SERTraline 2-0 Yes [id number] 100mg Take 1 [facility] 100 mg 9-14 tablet by ity of tablet 00:00: mouth in [place] 00 the Medical morning Branch and 1 tablet in the evening. SERTraline 2-0 Yes [id number] 100mg Take 1 [facility] 100 mg 9-14 tablet by ity of tablet 00:00: mouth in [place] 00 the Medical morning Branch and 1 tablet in the evening. SERTraline 2-0 Yes [id number] 100mg Take 1 [facility] 100 mg 9-14 tablet by ity of tablet 00:00: mouth in [place] 00 the Medical morning Branch and 1 tablet in the evening. primidone 2-0 Yes [id number] 100mg Take 2 [facility] 50 mg 8-15 tablets by ity of tablet 00:00: mouth [place] 00 every 8 Medical (eight) Branch hours. primidone 2-0 Yes [id number] 100mg Take 2 [facility] 50 mg 8-15 tablets by ity of tablet 00:00: mouth [place] 00 every 8 Medical (eight) Branch hours. primidone 2-0 Yes [id number] 100mg Take 2 [facility] 50 mg 8-15 tablets by ity of tablet 00:00: mouth [place] 00 every 8 Medical (eight) Branch hours. primidone 2022-0 Yes [id number] 100mg Take 2 [facility] 50 mg 8-15 tablets by ity of tablet 00:00: mouth [place] 00 every 8 Medical (eight) Branch hours. primidone 2022-0 Yes [id number] 100mg Take 2 [facility] 50 mg 8-15 tablets by ity of tablet 00:00: mouth [place] 00 every 8 Medical (eight) Branch hours. primidone 2022-0 Yes [id number] 100mg Take 2 [facility] 50 mg 8-15 tablets by ity of tablet 00:00: mouth [place] 00 every 8 Medical (eight) Branch hours. primidone 2022-0 Yes [id number] 100mg Take 2 [facility] 50 mg 8-15 tablets by ity of tablet 00:00: mouth [place] 00 every 8 Medical (eight) Branch hours. primidone 2022-0 Yes [id number] 100mg Take 2 [facility] 50 mg 8-15 tablets by ity of tablet 00:00: mouth [place] 00 every 8 Medical (eight) Branch hours. primidone 2022-0 Yes [id number] 100mg Take 2 [facility] 50 mg 8-15 tablets by ity of tablet 00:00: mouth [place] 00 every 8 Medical (eight) Branch hours. primidone 2022-0 Yes [id number] 100mg Take 2 [facility] 50 mg 8-15 tablets by ity of tablet 00:00: mouth [place] 00 every 8 Medical (eight) Branch hours. primidone 2022-0 Yes [id number] 100mg Take 2 [facility] 50 mg 8-15 tablets by ity of tablet 00:00: mouth [place] 00 every 8 Medical (eight) Branch hours. primidone 2022-0 Yes [id number] 100mg Take 2 [facility] 50 mg 8-15 tablets by ity of tablet 00:00: mouth [place] 00 every 8 Medical (eight) Branch hours. primidone 2022-0 Yes [id number] 100mg Take 2 [facility] 50 mg 8-15 tablets by ity of tablet 00:00: mouth [place] 00 every 8 Medical (eight) Branch hours. primidone 2022-0 Yes [id number] 100mg Take 2 [facility] 50 mg 8-15 tablets by ity of tablet 00:00: mouth [place] 00 every 8 Medical (eight) Branch hours. primidone 2022-0 Yes [id number] 100mg Take 2 [facility] 50 mg 8-15 tablets by ity of tablet 00:00: mouth [place] 00 every 8 Medical (eight) Branch hours. primidone 2022-0 Yes [id number] 100mg Take 2 [facility] 50 mg 8-15 tablets by ity of tablet 00:00: mouth [place] 00 every 8 Medical (eight) Branch hours. primidone 2022-0 Yes [id number] 100mg Take 2 [facility] 50 mg 8-15 tablets by ity of tablet 00:00: mouth [place] 00 every 8 Medical (eight) Branch hours. primidone 2022-0 Yes [id number] 100mg Take 2 [facility] 50 mg 8-15 tablets by [facility] tablet 00:00: mouth [place] 00 every 8 Medical (eight) Branch hours. primidone 2022-0 Yes [id number] 100mg Take 2 [facility] 50 mg 8-15 tablets by [facility] of tablet 00:00: mouth [place] 00 every 8 Medical (eight) Branch hours. primidone 2022-0 Yes [id number] 100mg Take 2 [facility] 50 mg 8-15 tablets by [facility] of tablet 00:00: mouth [place] 00 every 8 Medical (eight) Branch hours. primidone 2022-0 Yes [id number] 100mg Take 2 [facility] 50 mg 8-15 tablets by [facility] of tablet 00:00: mouth [place] 00 every 8 Medical (eight) Branch hours. primidone 2022-0 Yes [id number] 100mg Take 2 [facility] 50 mg 8-15 tablets by [facility] of tablet 00:00: mouth [place] 00 every 8 Medical (eight) Branch hours. primidone 2022-0 Yes [id number] 100mg Take 2 [facility] 50 mg 8-15 tablets by [facility] of tablet 00:00: mouth [place] 00 every 8 Medical (eight) Branch hours. primidone 2022-0 Yes [id number] 100mg Take 2 [facility] 50 mg 8-15 tablets by [facility] of tablet 00:00: mouth [place] 00 every 8 Medical (eight) Branch hours. primidone 2022-0 Yes [id number] 100mg Take 2 [facility] 50 mg 8-15 tablets by [facility] of tablet 00:00: mouth [place] 00 every 8 Medical (eight) Branch hours. primidone 2022-0 Yes [id number] 100mg Take 2 [facility] 50 mg 8-15 tablets by [facility] of tablet 00:00: mouth [place] 00 every 8 Medical (eight) Branch hours. primidone 2022-0 Yes [id number] 100mg Take 2 [facility] 50 mg 8-15 tablets by [facility] of tablet 00:00: mouth [place] 00 every 8 Medical (eight) Branch hours. primidone 2022-0 Yes [id number] 100mg Take 2 [facility] 50 mg 8-15 tablets by [facility] of tablet 00:00: mouth [place] 00 every 8 Medical (eight) Branch hours. primidone 2022-0 Yes [id number] 100mg Take 2 [facility] 50 mg 8-15 tablets by [facility] of tablet 00:00: mouth [place] 00 every 8 Medical (eight) Branch hours. primidone 2022-0 Yes [id number] 100mg Take 2 [facility] 50 mg 8-15 tablets by [facility] of tablet 00:00: mouth [place] 00 every 8 Medical (eight) Branch hours. primidone 2022-0 Yes [id number] 100mg Take 2 [facility] 50 mg 8-15 tablets by [facility] of tablet 00:00: mouth [place] 00 every 8 Medical (eight) Branch hours. primidone 2022-0 Yes [id number] 100mg Take 2 [facility] 50 mg 8-15 tablets by [facility] of tablet 00:00: mouth [place] 00 every 8 Medical (eight) Branch hours. primidone 2022-0 Yes [id number] 100mg Take 2 [facility] 50 mg 8-15 tablets by [facility] of tablet 00:00: mouth [place] 00 every 8 Medical (eight) Branch hours. primidone 2022-0 Yes [id number] 100mg Take 2 [facility] 50 mg 8-15 tablets by [facility] of tablet 00:00: mouth [place] 00 every 8 Medical (eight) Branch hours. primidone 2022-0 Yes [id number] 100mg Take 2 [facility] 50 mg 8-15 tablets by [facility] of tablet 00:00: mouth [place] 00 every 8 Medical (eight) Branch hours. primidone 2022-0 Yes [id number] 100mg Take 2 [facility] 50 mg 8-15 tablets by [facility] of tablet 00:00: mouth [place] 00 every 8 Medical (eight) Branch hours. primidone 2022-0 Yes [id number] 100mg Take 2 [facility] 50 mg 8-15 tablets by [facility] of tablet 00:00: mouth [place] 00 every 8 Medical (eight) Branch hours. primidone 2022-0 Yes [id number] 100mg Take 2 [facility] 50 mg 8-15 tablets by [facility] of tablet 00:00: mouth [place] 00 every 8 Medical (eight) Branch hours. primidone 2022-0 Yes [id number] 100mg Take 2 [facility] 50 mg 8-15 tablets by [facility] of tablet 00:00: mouth [place] 00 every 8 Medical (eight) Branch hours. primidone 2022-0 Yes [id number] 100mg Take 2 [facility] 50 mg 8-15 tablets by [facility] of tablet 00:00: mouth [place] 00 every 8 Medical (eight) Branch hours. primidone 2022-0 Yes [id number] 100mg Take 2 [facility] 50 mg 8-15 tablets by [facility] of tablet 00:00: mouth [place] 00 every 8 Medical (eight) Branch hours. primidone 2021-0 Yes [id number] 100mg Take 2 [facility] 50 mg 8-15 tablets by [facility] of tablet 00:00: mouth [place] 00 every 8 Medical (eight) Branch hours. primidone 2021-0 Yes [id number] 100mg Take 2 [facility] 50 mg 8-15 tablets by [facility] of tablet 00:00: mouth [place] 00 every 8 Medical (eight) Branch hours. primidone 2021-0 Yes [id number] 100mg Take 2 [facility] 50 mg 8-15 tablets by [facility] of tablet 00:00: mouth [place] 00 every 8 Medical (eight) Branch hours. primidone 2021-0 Yes [id number] 100mg Take 2 [facility] 50 mg 8-15 tablets by [facility] of tablet 00:00: mouth [place] 00 every 8 Medical (eight) Branch hours. primidone 2021-0 202- No [id number] 100mg Take 2 [facility] 50 mg 8-15 12-14 tablets by [facility] of tablet 00:00: 00:00 mouth [place] 00 :00 every 8 Medical (eight) Branch hours. primidone 2021-0 2022- No [id number] 100mg Take 2 [facility] 50 mg 8-15 12-14 tablets by [facility] of tablet 00:00: 00:00 mouth [place] 00 :00 every 8 Medical (eight) Branch hours. primidone 2021-0 2022- No [id number] 100mg Take 2 [facility] 50 mg 8-15 12-14 tablets by it[facility] of tablet 00:00: 00:00 mouth [place] 00 :00 every 8 Medical (eight) Branch hours. bumetanide 0 Yes 2mg Take 2 mg [facility] 2 mg tablet 8-11 by mouth it[facility] of 10:37: daily. 3 [place] 47 mg AM and Medical 2 mg PM. Branch KCL 10 mEq 0 Yes 10meq Take 10 [facility] vers tablet 8-11 mEq by ity of 10:37: mouth [place] 47 daily. Medical Branch spironolact 2021-0 Yes 25mg Take 25 mg [facility] one 25 mg 8-11 by mouth ity of tablet 10:37: daily. [place] 47 Medical Branch bumetanide 2022-0 Yes 2mg Take 2 mg [facility] 2 mg tablet 8-11 by mouth ity of 10:37: daily. 3 [place] 47 mg AM and Medical 2 mg PM. Branch KCL 10 mEq 2-0 Yes 10meq Take 10 [facility] vers tablet 8-11 mEq by ity of 10:37: mouth [place] [address] daily. Medical Branch spironolact 2022-0 Yes 25mg Take 25 mg [facility] one 25 mg 8-11 by mouth ity of tablet 10:37: daily. [place] [address] Medical Branch mexiletine 2022-0 Yes 200mg Take 1 [facility] ers 200 mg 7-19 capsule by ity of capsule 00:00: mouth in [place] [address] the Medical morning Branch and 1 capsule at noon and 1 capsule in the evening. mexiletine 2022-0 Yes 200mg Take 1 [facility] ers 200 mg 7-19 capsule by ity of capsule 00:00: mouth in [place] [address] the [facility] morning [place] and 1 capsule at noon and 1 capsule in the evening. mexiletine 2022-0 Yes 200mg Take 1 [facility] ers 200 mg 7-19 capsule by ity of capsule 00:00: mouth in [place] [address] the [facility] morning [place] and 1 capsule at noon and 1 capsule in the evening. mexiletine 2022-0 Yes 200mg Take 1 [facility] ers 200 mg 7-19 capsule by ity of capsule 00:00: mouth in [place] [address] the [facility] morning [place] and 1 capsule at noon and 1 capsule in the evening. mexiletine 2022-0 Yes 200mg Take 1 [facility] ers 200 mg 7-19 capsule by ity of capsule 00:00: mouth in [place] [address] the [facility] morning [place] and 1 capsule at noon and 1 capsule in the evening. mexiletine 2022-0 Yes 200mg Take 1 [facility] ers 200 mg 7-19 capsule by ity of capsule 00:00: mouth in [place] [address] the [facility] morning [place] and 1 capsule at noon and 1 capsule in the evening. mexiletine 2022-0 Yes 200mg Take 1 [facility] ers 200 mg 7-19 capsule by ity of capsule 00:00: mouth in [place] [address] the [facility] morning [place] and 1 capsule at noon and 1 capsule in the evening. mexiletine 2022-0 Yes 200mg Take 1 [facility] ers 200 mg 7-19 capsule by ity of capsule 00:00: mouth in [place] 00 the Medical morning Branch and 1 capsule at noon and 1 capsule in the evening. mexiletine 2022-0 Yes 200mg Take 1 [facility] ers 200 mg 7-19 capsule by ity of capsule 00:00: mouth in [place] [address] the Medical morning Branch and 1 capsule at noon and 1 capsule in the evening. mexiletine 2022-0 Yes 200mg Take 1 [facility] ers 200 mg 7-19 capsule by ity of capsule 00:00: mouth in [place] [address] the Medical morning Branch and 1 capsule at noon and 1 capsule in the evening. mexiletine 2022-0 Yes 200mg Take 1 [facility] ers 200 mg 7-19 capsule by ity of capsule 00:00: mouth in [place] [address] the Medical morning Branch and 1 capsule at noon and 1 capsule in the evening. mexiletine 2022-0 Yes 200mg Take 1 [facility] ers 200 mg 7-19 capsule by ity of capsule 00:00: mouth in [place] [address] the Medical morning [place] and 1 capsule at noon and 1 capsule in the evening. mexiletine 2022-0 Yes 200mg Take 1 [facility] ers 200 mg 7-19 capsule by ity of capsule 00:00: mouth in [place] [address] the Medical morning [place] and 1 capsule at noon and 1 capsule in the evening. mexiletine 2022-0 Yes 200mg Take 1 [facility] ers 200 mg 7-19 capsule by ity of capsule 00:00: mouth in [place] [address] the Medical morning [place] and 1 capsule at noon and 1 capsule in the evening. mexiletine 2022-0 Yes 200mg Take 1 [facility] ers 200 mg 7-19 capsule by ity of capsule 00:00: mouth in [place] [address] the Medical morning [place] and 1 capsule at noon and 1 capsule in the evening. mexiletine 2022-0 2022- No 200mg Take 1 [facility] vers 200 mg 7-19 10-27 capsule by ity of capsule 00:00: 00:00 mouth in [place] 00 :00 the Medical morning [place] and 1 capsule at noon and 1 capsule in the evening. carvediloL 2022-0 Yes [id number] 6.25mg Take 1 [facility] 6.25 mg 6-20 tablet by ity of tablet 00:00: mouth 2 [place] [address] (two) Medical times [place] daily with meals. warfarin 2022-0 Yes [id number] 7.5mg Take 1 U nivers 7.5 mg 6-20 tablet by ity of tablet 00:00: mouth [place] 00 every Medical evening. Branch carvediloL 2021-0 Yes [id number] 6.25mg Take 1 [facility] 6.25 mg 6-20 tablet by ity of tablet 00:00: mouth 2 (two) Medical times Branch daily with meals. warfarin 2021-0 Yes [id number] 7.5mg Take 1 [facility] nivers 7.5 mg 6-20 tablet by ity of tablet 00:00: mouth [place] 00 every Medical evening. Branch carvediloL 2021-0 Yes [id number] 6.25mg Take 1 [facility] 6.25 mg 6-20 tablet by ity of tablet 00:00: mouth 2 (two) Medical times Branch daily with meals. warfarin 2021-0 Yes [id number] 7.5mg Take 1 [facility] nivers 7.5 mg 6-20 tablet by ity of tablet 00:00: mouth [place] 00 every Medical evening. Branch carvediloL 2021-0 Yes [id number] 6.25mg Take 1 [facility] 6.25 mg 6-20 tablet by ity of tablet 00:00: mouth 2 (two) Medical times Branch daily with meals. warfarin 2021-0 Yes [id number] 7.5mg Take 1 [facility] nivers 7.5 mg 6-20 tablet by ity of tablet 00:00: mouth [place] 00 every Medical evening. Branch carvediloL 2021-0 Yes [id number] 6.25mg Take 1 [facility] 6.25 mg 6-20 tablet by ity of tablet 00:00: mouth 2 (two) Medical times Branch daily with meals. warfarin 2021-0 Yes [id number] 7.5mg Take 1 U nivers 7.5 mg 6-20 tablet by ity of tablet 00:00: mouth [place] 00 every Medical evening. Branch carvediloL 2021-0 Yes [id number] 6.25mg Take 1 [facility] 6.25 mg 6-20 tablet by ity of tablet 00:00: mouth 2 [place] 00 (two) Medical times Branch daily with meals. warfarin 2021-0 Yes [id number] 7.5mg Take 1 [facility] nivers 7.5 mg 6-20 tablet by ity of tablet 00:00: mouth [place] 00 every Medical evening. Branch carvediloL 2022-0 Yes [id number] 6.25mg Take 1 [facility] 6.25 mg 6-20 tablet by ity of tablet 00:00: mouth (two) Medical times Branch daily with meals. warfarin 2021-0 Yes [id number] 7.5mg Take 1 U nivers 7.5 mg 6-20 tablet by ity of tablet 00:00: mouth [place] 00 every Medical evening. Branch carvediloL 2021-0 Yes [id number] 6.25mg Take 1 [facility] 6.25 mg 6-20 tablet by ity of tablet 00:00: mouth (two) Medical times Branch daily with meals. warfarin 2021-0 Yes [id number] 7.5mg Take 1 [facility] nivers 7.5 mg 6-20 tablet by ity of tablet 00:00: mouth 00 every Medical evening. Branch carvediloL 2021-0 Yes [id number] 6.25mg Take 1 [facility] 6.25 mg 6-20 tablet by ity of tablet 00:00: mouth (two) Medical times Branch daily with meals. warfarin 2021-0 Yes [id number] 7.5mg Take 1 [facility] nivers 7.5 mg 6-20 tablet by ity of tablet 00:00: mouth 00 every Medical evening. Branch carvediloL 2021-0 Yes [id number] 6.25mg Take 1 [facility] 6.25 mg 6-20 tablet by ity of tablet 00:00: mouth (two) Medical times Branch daily with meals. warfarin 2021-0 Yes [id number] 7.5mg Take 1 [facility] nivers 7.5 mg 6-20 tablet by ity of tablet 00:00: mouth [place] 00 every Medical evening. Branch carvediloL 2021-0 Yes [id number] 6.25mg Take 1 [facility] 6.25 mg 6-20 tablet by ity of tablet 00:00: mouth (two) Medical times Branch daily with meals. carvediloL 2-0 Yes [id number] 6.25mg Take 1 [facility] 6.25 mg 6-20 tablet by ity of tablet 00:00: mouth (two) Medical times Branch daily with meals. carvediloL 2021-0 Yes [id number] 6.25mg Take 1 [facility] 6.25 mg 6-20 tablet by ity of tablet 00:00: mouth (two) Medical times Branch daily with meals. carvediloL 2022-0 Yes [id number] 6.25mg Take 1 [facility] 6.25 mg 6-20 tablet by ity of tablet 00:00: mouth (two) Medical times Branch daily with meals. carvediloL 2022-0 Yes [id number] 6.25mg Take 1 [facility] 6.25 mg 6-20 tablet by ity of tablet 00:00: mouth (two) Medical times Branch daily with meals. carvediloL 2022-0 Yes [id number] 6.25mg Take 1 [facility] 6.25 mg 6-20 tablet by ity of tablet 00:00: mouth (two) Medical times Branch daily with meals. carvediloL 2022-0 Yes [id number] 6.25mg Take 1 [facility] 6.25 mg 6-20 tablet by ity of tablet 00:00: mouth (two) Medical times Branch daily with meals. carvediloL 2022-0 Yes [id number] 6.25mg Take 1 [facility] 6.25 mg 6-20 tablet by ity of tablet 00:00: mouth (two) Medical times Branch daily with meals. carvediloL 2022-0 Yes [id number] 6.25mg Take 1 [facility] 6.25 mg 6-20 tablet by ity of tablet 00:00: mouth (two) Medical times Branch daily with meals. carvediloL 2022-0 Yes [id number] 6.25mg Take 1 [facility] 6.25 mg 6-20 tablet by ity of tablet 00:00: mouth (two) Medical times Branch daily with meals. carvediloL 2022-0 Yes [id number] 6.25mg Take 1 [facility] 6.25 mg 6-20 tablet by ity of tablet 00:00: mouth (two) Medical times Branch daily with meals. carvediloL 2022-0 Yes [id number] 6.25mg Take 1 [facility] 6.25 mg 6-20 tablet by ity of tablet 00:00: mouth (two) Medical times Branch daily with meals. carvediloL 2022-0 Yes [id number] 6.25mg Take 1 [facility] 6.25 mg 6-20 tablet by ity of tablet 00:00: mouth (two) Medical times Branch daily with meals. carvediloL Yes [id number] 6.25mg Take 1 [facility] 6.25 mg 6-20 tablet by ity of tablet 00:00: mouth [place] (two) Medical times Branch daily with meals. carvediloL Yes [id number] 6.25mg Take 1 [facility] 6.25 mg 6-20 tablet by ity of tablet 00:00: mouth [place] (two) Medical times Branch daily with meals. carvediloL Yes [id number] 6.25mg Take 1 [facility] 6.25 mg 6-20 tablet by ity of tablet 00:00: mouth [place] (two) Medical times Branch daily with meals. carvediloL Yes [id number] 6.25mg Take 1 [facility] 6.25 mg 6-20 tablet by ity of tablet 00:00: mouth [place] (two) Medical times Branch daily with meals. carvediloL 2021- No [id number] 6.25mg Take 1 [facility] 6.25 mg 6-20 11-21 tablet by ity of tablet 00:00: 00:[address] [place] [address] 00 :00 (two) Medical times Branch daily with meals. carvediloL 2021- No [id number] 6.25mg Take 1 [facility] 6.25 mg 6-20 11-21 tablet by ity of tablet 00:00: 00:[address] [place] [address] 00 :00 (two) Medical times Branch daily with meals. warfarin 2021- No [id number] 7.5mg Take 1 [facility] 7.5 mg 6-20 10-14 tablet by ity of tablet 00:00: 00:00 mouth [place] 00 :00 every Medical evening. Branch warfarin 2021- No [id number] 7.5mg Take 1 [facility] 7.5 mg 6-20 10-14 tablet by ity of tablet 00:00: 00:00 mouth [place] 00 :00 every Medical evening. Branch atorvastati Yes [id number] 40mg Take 1 [facility] n 40 mg 5-05 tablet by ity of tablet 00:00: mouth at [place] 00 bedtime. Medical Branch atorvastati Yes [id number] 40mg Take 1 [facility] n 40 mg 5-05 tablet by ity of tablet 00:00: mouth at [place] [address] bedtime. Medical Branch atorvastati 0 Yes [id number] 40mg Take 1 [facility] n 40 mg 5-05 tablet by ity of tablet 00:00: mouth at [place] bedtime. Medical Branch atorvastati 0 Yes [id number] 40mg Take 1 [facility] n 40 mg 5-05 tablet by ity of tablet 00:00: mouth at [place] bedtime. Medical Branch atorvastati 0 Yes [id number] 40mg Take 1 [facility] n 40 mg 5-05 tablet by ity of tablet 00:00: mouth at [place] bedtime. Medical Branch atorvastati Yes [id number] 40mg Take 1 [facility] n 40 mg 5-05 tablet by ity of tablet 00:00: mouth at [place] bedtime. Medical Branch atorvastati 0 Yes [id number] 40mg Take 1 [facility] n 40 mg 5-05 tablet by ity of tablet 00:00: mouth at [place] bedtime. Medical Branch atorvastati Yes [id number] 40mg Take 1 [facility] n 40 mg 5-05 tablet by ity of tablet 00:00: mouth at [place] [address] bedtime. Medical Branch atorvastati Yes [id number] 40mg Take 1 [facility] n 40 mg 5-05 tablet by ity of tablet 00:00: mouth at [place] [address] bedtime. Medical Branch atorvastati 0 Yes [id number] 40mg Take 1 [facility] n 40 mg 5-05 tablet by ity of tablet 00:00: mouth at [place] [address] bedtime. Medical Branch atorvastati 0 Yes [id number] 40mg Take 1 [facility] n 40 mg 5-05 tablet by ity of tablet 00:00: mouth at [place] [address] bedtime. Medical Branch atorvastati 0 Yes [id number] 40mg Take 1 [facility] n 40 mg 5-05 tablet by ity of tablet 00:00: mouth at [place] [address] bedtime. Medical Branch atorvastati 0 Yes [id number] 40mg Take 1 [facility] n 40 mg 5-05 tablet by ity of tablet 00:00: mouth at [place] 00 bedtime. Medical Branch atorvastati Yes [id number] 40mg Take 1 [facility] n 40 mg 5-05 tablet by ity of tablet 00:00: mouth at [place] bedtime. Medical Branch atorvastati 0 Yes [id number] 40mg Take 1 [facility] n 40 mg 5-05 tablet by ity of tablet 00:00: mouth at [place] bedtime. Medical Branch atorvastati 0 Yes [id number] 40mg Take 1 [facility] n 40 mg 5-05 tablet by ity of tablet 00:00: mouth at [place] bedtime. Medical Branch atorvastati Yes [id number] 40mg Take 1 [facility] n 40 mg 5-05 tablet by ity of tablet 00:00: mouth at [place] bedtime. Medical Branch atorvastati Yes [id number] 40mg Take 1 [facility] n 40 mg 5-05 tablet by ity of tablet 00:00: mouth at [place] [address] bedtime. Medical Branch atorvastati 0 Yes [id number] 40mg Take 1 [facility] n 40 mg 5-05 tablet by ity of tablet 00:00: mouth at [place] bedtime. Medical Branch atorvastati Yes [id number] 40mg Take 1 [facility] n 40 mg 5-05 tablet by ity of tablet 00:00: mouth at [place] bedtime. Medical Branch atorvastati Yes [id number] 40mg Take 1 [facility] n 40 mg 5-05 tablet by ity of tablet 00:00: mouth at [place] [address] bedtime. Medical Branch atorvastati 0 Yes [id number] 40mg Take 1 [facility] n 40 mg 5-05 tablet by ity of tablet 00:00: mouth at [place] bedtime. Medical Branch atorvastati 0 Yes [id number] 40mg Take 1 [facility] n 40 mg 5-05 tablet by ity of tablet 00:00: mouth at [place] [address] bedtime. Medical Branch atorvastati 0 Yes [id number] 40mg Take 1 [facility] n 40 mg 5-05 tablet by ity of tablet 00:00: mouth at [place] [address] bedtime. Medical Branch atorvastati 0 Yes [id number] 40mg Take 1 [facility] n 40 mg 5-05 tablet by ity of tablet 00:00: mouth at [place] [address] bedtime. Medical Branch atorvastati 0 Yes [id number] 40mg Take 1 [facility] n 40 mg 5-05 tablet by ity of tablet 00:00: mouth at [place] bedtime. Medical Branch atorvastati 0 Yes [id number] 40mg Take 1 [facility] n 40 mg 5-05 tablet by ity of tablet 00:00: mouth at [place] bedtime. Medical Branch atorvastati 0 Yes [id number] 40mg Take 1 [facility] n 40 mg 5-05 tablet by ity of tablet 00:00: mouth at [place] bedtime. Medical Branch atorvastati 0 Yes [id number] 40mg Take 1 [facility] n 40 mg 5-05 tablet by ity of tablet 00:00: mouth at [place] bedtime. Medical Branch atorvastati Yes [id number] 40mg Take 1 [facility] n 40 mg 5-05 tablet by ity of tablet 00:00: mouth at [place] bedtime. Medical Branch atorvastati 0 Yes [id number] 40mg Take 1 [facility] n 40 mg 5-05 tablet by ity of tablet 00:00: mouth at [place] bedtime. Medical Branch atorvastati 0 Yes [id number] 40mg Take 1 [facility] n 40 mg 5-05 tablet by ity of tablet 00:00: mouth at [place] bedtime. Medical Branch atorvastati 0 Yes [id number] 40mg Take 1 [facility] n 40 mg 5-05 tablet by ity of tablet 00:00: mouth at [place] bedtime. Medical Branch atorvastati 0 Yes [id number] 40mg Take 1 [facility] n 40 mg 5-05 tablet by ity of tablet 00:00: mouth at [place] bedtime. Medical Branch atorvastati 0 Yes [id number] 40mg Take 1 [facility] n 40 mg 5-05 tablet by ity of tablet 00:00: mouth at [place] [address] bedtime. Medical Branch atorvastati 0 Yes [id number] 40mg Take 1 [facility] n 40 mg 5-05 tablet by ity of tablet 00:00: mouth at [place] [address] bedtime. Medical Branch atorvastati 0 Yes [id number] 40mg Take 1 [facility] n 40 mg 5-05 tablet by ity of tablet 00:00: mouth at [place] bedtime. Medical Branch atorvastati 0 Yes [id number] 40mg Take 1 [facility] n 40 mg 5-05 tablet by ity of tablet 00:00: mouth at [place] bedtime. Medical Branch atorvastati 0 Yes [id number] 40mg Take 1 [facility] n 40 mg 5-05 tablet by ity of tablet 00:00: mouth at [place] bedtime. Medical Branch atorvastati 0 Yes [id number] 40mg Take 1 [facility] n 40 mg 5-05 tablet by ity of tablet 00:00: mouth at [place] bedtime. Medical Branch atorvastati Yes [id number] 40mg Take 1 [facility] n 40 mg 5-05 tablet by ity of tablet 00:00: mouth at [place] bedtime. Medical Branch atorvastati 0 Yes [id number] 40mg Take 1 [facility] n 40 mg 5-05 tablet by ity of tablet 00:00: mouth at [place] bedtime. Medical Branch atorvastati 0 Yes [id number] 40mg Take 1 [facility] n 40 mg 5-05 tablet by ity of tablet 00:00: mouth at [place] bedtime. Medical Branch atorvastati 0 Yes [id number] 40mg Take 1 [facility] n 40 mg 5-05 tablet by ity of tablet 00:00: mouth at [place] bedtime. Medical Branch atorvastati 0 Yes [id number] 40mg Take 1 [facility] n 40 mg 5-05 tablet by ity of tablet 00:00: mouth at [place] bedtime. Medical Branch atorvastati 0 Yes [id number] 40mg Take 1 [facility] n 40 mg 5-05 tablet by ity of tablet 00:00: mouth at [place] [address] bedtime. Medical Branch atorvastati 0 Yes [id number] 40mg Take 1 [facility] n 40 mg 5-05 tablet by ity of tablet 00:00: mouth at [place] [address] bedtime. Medical Branch atorvastati 0 Yes [id number] 40mg Take 1 [facility] n 40 mg 5-05 tablet by ity of tablet 00:00: mouth at [place] [address] bedtime. Medical Branch atorvastati Yes [id number] 40mg Take 1 [facility] n 40 mg 5-05 tablet by ity of tablet 00:00: mouth at [place] bedtime. Medical Branch atorvastati 0 Yes [id number] 40mg Take 1 [facility] n 40 mg 5-05 tablet by ity of tablet 00:00: mouth at [place] [address] bedtime. Medical Branch atorvastati 0 Yes [id number] 40mg Take 1 [facility] n 40 mg 5-05 tablet by ity of tablet 00:00: mouth at [place] [address] bedtime. Medical Branch atorvastati Yes [id number] 40mg Take 1 [facility] n 40 mg 5-05 tablet by ity of tablet 00:00: mouth at [place] bedtime. Medical Branch atorvastati Yes [id number] 40mg Take 1 [facility] n 40 mg 5-05 tablet by ity of tablet 00:00: mouth at [place] [address] bedtime. Medical Branch atorvastati Yes [id number] 40mg Take 1 [facility] n 40 mg 5-05 tablet by ity of tablet 00:00: mouth at [place] [address] bedtime. Medical Branch atorvastati Yes [id number] 40mg Take 1 [facility] n 40 mg 5-05 tablet by ity of tablet 00:00: mouth at [place] [address] bedtime. Medical Branch atorvastati Yes [id number] 40mg Take 1 [facility] n 40 mg 5-05 tablet by ity of tablet 00:00: mouth at [place] [address] bedtime. Medical Branch atorvastati Yes [id number] 40mg Take 1 [facility] n 40 mg 5-05 tablet by ity of tablet 00:00: mouth at [place] [address] bedtime. Medical Branch atorvastati 0 Yes [id number] 40mg Take 1 [facility] n 40 mg 5-05 tablet by ity of tablet 00:00: mouth at [place] [address] bedtime. Medical Branch atorvastati 0 Yes [id number] 40mg Take 1 [facility] n 40 mg 5-05 tablet by ity of tablet 00:00: mouth at [place] [address] bedtime. Medical Branch atorvastati 0 Yes [id number] 40mg Take 1 [facility] n 40 mg 5-05 tablet by ity of tablet 00:00: mouth at [place] [address] bedtime. Medical Branch atorvastati Yes [id number] 40mg Take 1 [facility] n 40 mg 5-05 tablet by ity of tablet 00:00: mouth at [place] bedtime. Medical Branch atorvastati 0 Yes [id number] 40mg Take 1 [facility] n 40 mg 5-05 tablet by ity of tablet 00:00: mouth at [place] bedtime. Medical Branch atorvastati Yes [id number] 40mg Take 1 [facility] n 40 mg 5-05 tablet by ity of tablet 00:00: mouth at [place] bedtime. Medical Branch atorvastati Yes [id number] 40mg Take 1 [facility] n 40 mg 5-05 tablet by ity of tablet 00:00: mouth at [place] bedtime. Medical Branch atorvastati Yes [id number] 40mg Take 1 [facility] n 40 mg 5-05 tablet by ity of tablet 00:00: mouth at [place] bedtime. Medical Branch atorvastati 0 Yes [id number] 40mg Take 1 [facility] n 40 mg 5-05 tablet by ity of tablet 00:00: mouth at [place] bedtime. Medical Branch atorvastati Yes [id number] 40mg Take 1 [facility] n 40 mg 5-05 tablet by [facility] tablet 00:00: mouth at [place] bedtime. [facility] atorvastati Yes [id number] 40mg Take 1 [facility] 40 mg 5-05 tablet by [facility] tablet 00:00: mouth at [place] bedtime. [facility] atorvastati Yes [id number] 40mg Take 1 [facility] 40 mg 5-05 tablet by [facility] tablet 00:00: mouth at [place] bedtime. [facility] atorvastati 0 Yes [id number] 40mg Take 1 [facility] n 40 mg 5-05 tablet by [facility] tablet 00:00: mouth at [place] [address] bedtime. [facility] atorvastati Yes [id number] 40mg Take 1 [facility] n 40 mg 5-05 tablet by [facility] tablet 00:00: mouth at [place] [address] bedtime. [facility] atorvastati 3- No [id number] 40mg Take 1 [facility] n 40 mg 5-07 13-12 tablet by [facility] tablet 00:00: 00:00 mouth at [place] 00 :00 bedtime. [facility] allopurinoL 2021-0 Yes [id number] 300mg Take 1 [facility] 300 mg 2-08 tablet by [facility] tablet 00:00: mouth [place] 00 daily. [facility] allopurinoL 2021-0 Yes [id number] 300mg Take 1 [facility] 300 mg 2-08 tablet by [facility] tablet 00:00: mouth [place] 00 daily. [facility] allopurinoL 2021-0 Yes [id number] 300mg Take 1 [facility] 300 mg 2-08 tablet by [facility] tablet 00:00: mouth [place] 00 daily. [facility] allopurinoL 2021-0 Yes [id number] 300mg Take 1 [facility] 300 mg 2-08 tablet by [facility] tablet 00:00: mouth [place] 00 daily. [facility] allopurinoL 2021-0 Yes [id number] 300mg Take 1 [facility] 300 mg 2-08 tablet by [facility] tablet 00:00: mouth [place] 00 daily. [facility] allopurinoL 0 Yes [id number] 300mg Take 1 [facility] 300 mg 2-08 tablet by [facility] tablet 00:00: mouth [place] 00 daily. [facility] allopurinoL 2021-0 Yes [id number] 300mg Take 1 [facility] 300 mg 2-08 tablet by [facility] tablet 00:00: mouth [place] 00 daily. [facility] allopurinoL 2021-0 Yes [id number] 300mg Take 1 [facility] 300 mg 2-08 tablet by [facility] of tablet 00:00: mouth [place] 00 daily. [facility] allopurinoL 2021-0 Yes [id number] 300mg Take 1 [facility] 300 mg 2-08 tablet by [facility] of tablet 00:00: mouth [place] 00 daily. [facility] allopurinoL 2021-0 Yes [id number] 300mg Take 1 [facility] 300 mg 2-08 tablet by [facility] of tablet 00:00: mouth [place] 00 daily. [facility] allopurinoL 2021-0 Yes [id number] 300mg Take 1 [facility] 300 mg 2-08 tablet by it[facility] of tablet 00:00: mouth [place] 00 daily. [facility] allopurinoL 2021-0 Yes [id number] 300mg Take 1 [facility] 300 mg 2-08 tablet by [facility] of tablet 00:00: mouth [place] 00 daily. [facility] allopurinoL 2021-0 Yes [id number] 300mg Take 1 [facility] 300 mg 2-08 tablet by [facility] of tablet 00:00: mouth [place] 00 daily. [facility] allopurinoL 2021-0 Yes [id number] 300mg Take 1 [facility] 300 mg 2-08 tablet by [facility] of tablet 00:00: mouth [place] 00 daily. [facility] allopurinoL 2021-0 Yes [id number] 300mg Take 1 [facility] 300 mg 2-08 tablet by [facility] of tablet 00:00: mouth [place] 00 daily. [facility] allopurinoL 2021-0 Yes [id number] 300mg Take 1 [facility] 300 mg 2-08 tablet by [facility] of tablet 00:00: mouth [place] 00 daily. [facility] allopurinoL 2021-0 Yes [id number] 300mg Take 1 [facility] 300 mg 2-08 tablet by [facility] of tablet 00:00: mouth [place] 00 daily. [facility] allopurinoL 2021-0 Yes [id number] 300mg Take 1 [facility] 300 mg 2-08 tablet by [facility] of tablet 00:00: mouth [place] 00 daily. [facility] allopurinoL 2021-0 Yes [id number] 300mg Take 1 [facility] 300 mg 2-08 tablet by [facility] of tablet 00:00: mouth [place] 00 daily. [facility] allopurinoL 2021-0 Yes [id number] 300mg Take 1 [facility] 300 mg 2-08 tablet by [facility] of tablet 00:00: mouth [place] 00 daily. [facility] allopurinoL 2021-0 Yes [id number] 300mg Take 1 [facility] 300 mg 2-08 tablet by [facility] of tablet 00:00: mouth [place] 00 daily. [facility] allopurinoL 2021-0 Yes [id number] 300mg Take 1 [facility] 300 mg 2-08 tablet by [facility] of tablet 00:00: mouth [place] 00 daily. [facility] allopurinoL 2021-0 Yes [id number] 300mg Take 1 [facility] 300 mg 2-08 tablet by [facility] of tablet 00:00: mouth [place] 00 daily. [facility] allopurinoL 2021-0 Yes [id number] 300mg Take 1 [facility] 300 mg 2-08 tablet by [facility] of tablet 00:00: mouth [place] 00 daily. [facility] allopurinoL 2021-0 Yes [id number] 300mg Take 1 [facility] 300 mg 2-08 tablet by [facility] of tablet 00:00: mouth [place] 00 daily. [facility] allopurinoL 2022-0 Yes [id number] 300mg Take 1 [facility] 300 mg 2-08 tablet by [facility] of tablet 00:00: mouth [place] 00 daily. [facility] allopurinoL 2021-0 Yes [id number] 300mg Take 1 [facility] 300 mg 2-08 tablet by [facility] of tablet 00:00: mouth [place] 00 daily. [facility] allopurinoL 2021-0 Yes [id number] 300mg Take 1 [facility] 300 mg 2-08 tablet by [facility] of tablet 00:00: mouth [place] 00 daily. [facility] allopurinoL 2021-0 Yes [id number] 300mg Take 1 [facility] 300 mg 2-08 tablet by [facility] of tablet 00:00: mouth [place] 00 daily. [facility] allopurinoL 2021-0 Yes [id number] 300mg Take 1 [facility] 300 mg 2-08 tablet by [facility] of tablet 00:00: mouth [place] 00 daily. [facility] allopurinoL 2021-0 Yes [id number] 300mg Take 1 [facility] 300 mg 2-08 tablet by [facility] of tablet 00:00: mouth [place] 00 daily. [facility] allopurinoL 2021-0 Yes [id number] 300mg Take 1 [facility] 300 mg 2-08 tablet by [facility] of tablet 00:00: mouth [place] 00 daily. [facility] allopurinoL 2021-0 Yes [id number] 300mg Take 1 [facility] 300 mg 2-08 tablet by [facility] of tablet 00:00: mouth [place] 00 daily. [facility] allopurinoL 2021-0 Yes [id number] 300mg Take 1 [facility] 300 mg 2-08 tablet by [facility] of tablet 00:00: mouth [place] 00 daily. [facility] allopurinoL 2021-0 Yes [id number] 300mg Take 1 [facility] 300 mg 2-08 tablet by [facility] of tablet 00:00: mouth [place] 00 daily. [facility] allopurinoL 2021-0 Yes [id number] 300mg Take 1 [facility] 300 mg 2-08 tablet by [facility] of tablet 00:00: mouth [place] 00 daily. [facility] allopurinoL 2021-0 Yes [id number] 300mg Take 1 [facility] 300 mg 2-08 tablet by [facility] of tablet 00:00: mouth [place] 00 daily. [facility] allopurinoL 2021-0 Yes [id number] 300mg Take 1 [facility] 300 mg 2-08 tablet by [facility] of tablet 00:00: mouth [place] 00 daily. [facility] allopurinoL 2021-0 Yes [id number] 300mg Take 1 [facility] 300 mg 2-08 tablet by [facility]y of tablet 00:00: mouth [place] 00 daily. [facility] allopurinoL 2021-0 Yes [id number] 300mg Take 1 [facility] 300 mg 2-08 tablet by [facility]y of tablet 00:00: mouth [place] 00 daily. [facility] allopurinoL 2021-0 Yes [id number] 300mg Take 1 [facility] 300 mg 2-08 tablet by [facility] of tablet 00:00: mouth [place] 00 daily. [facility] allopurinoL 2021-0 Yes [id number] 300mg Take 1 [facility] 300 mg 2-08 tablet by [facility] of tablet 00:00: mouth [place] 00 daily. [facility] allopurinoL 2021-0 Yes [id number] 300mg Take 1 [facility] 300 mg 2-08 tablet by [facility] of tablet 00:00: mouth [place] 00 daily. [facility] allopurinoL 2021-0 Yes [id number] 300mg Take 1 [facility] 300 mg 2-08 tablet by [facility] of tablet 00:00: mouth [place] 00 daily. [facility] allopurinoL 2021-0 Yes [id number] 300mg Take 1 [facility] 300 mg 2-08 tablet by [facility] of tablet 00:00: mouth [place] 00 daily. [facility] allopurinoL 2021-0 Yes [id number] 300mg Take 1 [facility] 300 mg 2-08 tablet by [facility] of tablet 00:00: mouth [place] 00 daily. [facility] allopurinoL 2021-0 Yes [id number] 300mg Take 1 [facility] 300 mg 2-08 tablet by [facility] of tablet 00:00: mouth [place] 00 daily. [facility] allopurinoL 2021-0 Yes [id number] 300mg Take 1 [facility] 300 mg 2-08 tablet by [facility] of tablet 00:00: mouth [place] 00 daily. [facility] allopurinoL 2021-0 Yes [id number] 300mg Take 1 [facility] 300 mg 2-08 tablet by ity of tablet 00:00: mouth [place] 00 daily. [facility] Branch allopurinoL 2021-0 Yes [id number] 300mg Take 1 [facility] 300 mg 2-08 tablet by ity of tablet 00:00: mouth [place] 00 daily. [facility] Branch allopurinoL 2021-0 Yes [id number] 300mg Take 1 [facility] 300 mg 2-08 tablet by ity of tablet 00:00: mouth [place] 00 daily. Medical Branch allopurinoL 2021-0 Yes [id number] 300mg Take 1 [facility] 300 mg 2-08 tablet by ity of tablet 00:00: mouth [place] 00 daily. [facility] allopurinoL 2021-0 Yes [id number] 300mg Take 1 [facility] 300 mg 2-08 tablet by ity of tablet 00:00: mouth [place] 00 daily. [facility] allopurinoL 2021-0 Yes [id number] 300mg Take 1 [facility] 300 mg 2-08 tablet by ity of tablet 00:00: mouth [place] 00 daily. [facility] allopurinoL 2021-0 Yes [id number] 300mg Take 1 [facility] 300 mg 2-08 tablet by [facility] of tablet 00:00: mouth [place] 00 daily. [facility] allopurinoL 2021-0 Yes [id number] 300mg Take 1 [facility] 300 mg 2-08 tablet by [facility] of tablet 00:00: mouth [place] 00 daily. [facility] allopurinoL 2021-0 Yes [id number] 300mg Take 1 [facility] 300 mg 2-08 tablet by [facility] of tablet 00:00: mouth [place] 00 daily. [facility] allopurinoL 2021-0 Yes [id number] 300mg Take 1 [facility] 300 mg 2-08 tablet by [facility] of tablet 00:00: mouth [place] 00 daily. [facility] Branch allopurinoL 2021-0 Yes [id number] 300mg Take 1 [facility] 300 mg 2-08 tablet by [facility] of tablet 00:00: mouth [place] 00 daily. [facility] Branch allopurinoL 2021-0 Yes [id number] 300mg Take 1 [facility] 300 mg 2-08 tablet by [facility] of tablet 00:00: mouth [place] 00 daily. [facility] allopurinoL 2021-0 Yes [id number] 300mg Take 1 [facility] 300 mg 2-08 tablet by ity of tablet 00:00: mouth [place] 00 daily. [facility] allopurinoL 2021-0 Yes [id number] 300mg Take 1 [facility] 300 mg 2-08 tablet by [facility] of tablet 00:00: mouth [place] 00 daily. [facility] Branch allopurinoL 2021-0 Yes [id number] 300mg Take 1 [facility] 300 mg 2-08 tablet by it[facility] of tablet 00:00: mouth [place] 00 daily. [facility] allopurinoL 2021-0 Yes [id number] 300mg Take 1 [facility] 300 mg 2-08 tablet by ity of tablet 00:00: mouth [place] 00 daily. [facility] Branch allopurinoL 2-0 2023- No [id number] 300mg Take 1 [facility] 300 mg 2-08 02-27 tablet by it[facility] of tablet 00:00: 00:00 mouth [place] 00 :00 daily. [facility] Branch atorvastati 2021- No 40mg Take 40 mg [facility] n 40 mg 04-12 by mouth ity of tablet 15:31: 00:00 at [place] 17 :00 bedtime. Medical Branch KCL 10 mEq 2020-03- No 10meq Take 10 Un jeremie tablet 03-20 mEq by ity of 16:18: 00:00 mouth [place] 38 :00 daily. Medical Branch zolpidem 5 2020-03- No 5mg Take 5 mg U nivers mg tablet 03-19 by mouth ity o f 14:37: 00:00 at bedtime [place] 10 :00 as needed Medical for Branch Insomnia. omeprazole 2020-03 Yes [id number] 40mg Take 1 [facility] 40 mg 1-01 capsule by ity of capsule 00:00: mouth [place] 00 daily. Medical Branch omeprazole 2020-03 Yes [id number] 40mg Take 1 [facility] 40 mg 1-01 capsule by ity of capsule 00:00: mouth [place] 00 daily. Medical Branch omeprazole 2020-03 Yes [id number] 40mg Take 1 [facility] 40 mg 1-01 capsule by ity of capsule 00:00: mouth [place] 00 daily. Medical Branch omeprazole 2020-03 Yes [id number] 40mg Take 1 [facility] 40 mg 1-01 capsule by ity of capsule 00:00: mouth [place] 00 daily. Medical Branch omeprazole 2020-03 Yes [id number] 40mg Take 1 [facility] 40 mg 1-01 capsule by ity of capsule 00:00: mouth [place] 00 daily. [facility] Branch omeprazole 2020-03 Yes [id number] 40mg Take 1 [facility] 40 mg 1-01 capsule by ity of capsule 00:00: mouth [place] 00 daily. [facility] Branch omeprazole 2020-03 Yes [id number] 40mg Take 1 [facility] 40 mg 1-01 capsule by ity of capsule 00:00: mouth [place] 00 daily. Medical Branch omeprazole 2020-03 Yes [id number] 40mg Take 1 [facility] 40 mg 1-01 capsule by ity of capsule 00:00: mouth [place] 00 daily. Medical Branch omeprazole 2020-03 Yes [id number] 40mg Take 1 [facility] 40 mg 1-01 capsule by ity of capsule 00:00: mouth [place] 00 daily. [facility] Branch omeprazole 2020-03 Yes [id number] 40mg Take 1 [facility] 40 mg 1-01 capsule by ity of capsule 00:00: mouth [place] 00 daily. Medical Branch omeprazole 2020-03 Yes [id number] 40mg Take 1 [facility] 40 mg 1-01 capsule by ity of capsule 00:00: mouth [place] 00 daily. Medical Branch omeprazole 2020-03 Yes [id number] 40mg Take 1 [facility] 40 mg 1-01 capsule by ity of capsule 00:00: mouth [place] 00 daily. Medical Branch omeprazole 2020-03 Yes [id number] 40mg Take 1 [facility] 40 mg 1-01 capsule by ity of capsule 00:00: mouth [place] 00 daily. Medical Branch omeprazole 2020-03 Yes [id number] 40mg Take 1 [facility] 40 mg 1-01 capsule by ity of capsule 00:00: mouth [place] 00 daily. Medical Branch omeprazole 2020-03 Yes [id number] 40mg Take 1 [facility] 40 mg 1-01 capsule by ity of capsule 00:00: mouth [place] 00 daily. Medical Branch omeprazole 2020-03 Yes [id number] 40mg Take 1 [facility] 40 mg 1-01 capsule by ity of capsule 00:00: mouth [place] 00 daily. Medical Branch omeprazole 2020-03 Yes [id number] 40mg Take 1 [facility] 40 mg 1-01 capsule by ity of capsule 00:00: mouth [place] 00 daily. Medical Branch omeprazole 2020-03- No [id number] 40mg Take 1 [facility] 40 mg 1-01 - capsule by ity of capsule 00:00: 00:00 mouth [place] 00 :00 daily. Medical Branch furosemide 2020-03- No 20mg Take 20 mg [facility] (LASIX) 20 0-26 10-26 by mouth ity of mg tablet 13:16: 00:00 daily. [place] 03 :00 Medical Branch SERTraline 2020-03- No 100mg Take 100 U nivers 100 mg 0-26 10-26 mg by ity of tablet 13:16: 00:00 mouth 2 [place] 03 :00 (two) Medical times Branch daily. gabapentin 2020-03 Yes [id number] 600mg Take 2 [facility] 300 mg 0-26 capsules [facility] of capsule 00:00: by mouth 2 [place] 00 (two) Medical times Branch daily. gabapentin 2020- Yes [id number] 600mg Take 2 [facility] 300 mg 0-26 capsules ity of capsule 00:00: by mouth 2 [place] 00 (two) Medical times Branch daily. gabapentin 2020-03 Yes [id number] 600mg Take 2 [facility] 300 mg 0-26 capsules [facility] of capsule 00:00: by mouth 2 [place] 00 (two) Medical times Branch daily. gabapentin 2020-03 Yes [id number] 600mg Take 2 [facility] 300 mg 0-26 capsules [facility] of capsule 00:00: by mouth 2 [place] 00 (two) Medical times Branch daily. gabapentin 2020- Yes [id number] 600mg Take 2 [facility] 300 mg 0-26 capsules ity of capsule 00:00: by mouth 2 [place] 00 (two) Medical times Branch daily. gabapentin 2020-03 Yes [id number] 600mg Take 2 [facility] 300 mg 0-26 capsules [facility] of capsule 00:00: by mouth 2 [place] 00 (two) Medical times Branch daily. gabapentin 2020-03 Yes [id number] 600mg Take 2 [facility] 300 mg 0-26 capsules [facility]y of capsule 00:00: by mouth 2 [place] 00 (two) Medical times Branch daily. gabapentin 2020- Yes [id number] 600mg Take 2 [facility] 300 mg 0-26 capsules [facility]y of capsule 00:00: by mouth 2 [place] 00 (two) Medical times Branch daily. gabapentin 2020- Yes [id number] 600mg Take 2 [facility] 300 mg 0-26 capsules [facility]y of capsule 00:00: by mouth 2 [place] 00 (two) Medical times Branch daily. gabapentin 2020- Yes [id number] 600mg Take 2 [facility] 300 mg 0-26 capsules [facility]y of capsule 00:00: by mouth 2 [place] 00 (two) Medical times Branch daily. gabapentin 2020- Yes [id number] 600mg Take 2 [facility] 300 mg 0-26 capsules ity of capsule 00:00: by mouth 2 [place] 00 (two) Medical times Branch daily. gabapentin 2020- Yes [id number] 600mg Take 2 [facility] 300 mg 0-26 capsules [facility]y of capsule 00:00: by mouth 2 [place] 00 (two) Medical times Branch daily. gabapentin 2020-03 Yes [id number] 600mg Take 2 [facility] 300 mg 0-26 capsules [facility]y of capsule 00:00: by mouth 2 [place] 00 (two) Medical times Branch daily. gabapentin 2020-03 Yes [id number] 600mg Take 2 [facility] 300 mg 0-26 capsules [facility]y of capsule 00:00: by mouth 2 [place] 00 (two) Medical times Branch daily. gabapentin 2020-03 Yes [id number] 600mg Take 2 [facility] 300 mg 0-26 capsules [facility]y of capsule 00:00: by mouth 2 [place] 00 (two) Medical times Branch daily. gabapentin 2020-03 Yes [id number] 600mg Take 2 [facility] 300 mg 0-26 capsules ity of capsule 00:00: by mouth 2 [place] 00 (two) Medical times Branch daily. gabapentin 2020-03 Yes [id number] 600mg Take 2 [facility] 300 mg 0-26 capsules ity of capsule 00:00: by mouth 2 [place] 00 (two) Medical times Branch daily. gabapentin 2020-03- No [id number] 600mg Take 2 [facility] 300 mg 0-26 11-03 capsules ity of capsule 00:00: 00:00 by mouth 2 [place] 00 :00 (two) Medical times Branch daily. carvediloL 2020- No [id number] 6.25mg Take 0.5 [facility] 12.5 mg 9-28 10-28 tablets by ity o f tablet 00:00: 00:00 mouth 2 [place] 00 :00 (two) Medical times Branch daily with meals for 90 days. warfarin 5 2020- No 7.5mg Take 1.5 [facility] nivers mg tablet 11-11 10-19 tablets by ity of 00:00: 00:00 mouth [place] 00 :00 every Medical evening. Branch pramipexole Yes 1.5mg QD Take 1.[address] (MIRAPEX) 1 5-10 mg by [facility] tablet 09:09: mouth Medical 20 nightly . [place] omeprazole Yes 20mg QD Take [address] [facility] (PRILOSEC) 5-10 by mouth [facility] 10 MG 09:09: daily . Medical capsule 20 [place] citalopram 2017-0 Yes 40mg Take [address] [facility] (CELEXA) 40 5-10 by mouth. [facility] MG tablet 09:09: Medical 20 Center furosemide 2017 Yes 20mg Take [address] [facility] (LASIX) 20 5-10 by mouth [facility] tablet 09:09: as needed Med ical 20 . Center allopurinol Yes 300mg QD Take [address] (ZYLOPRIM) 5-10 mg by [facility] 300 MG 09:09: mouth Medical tablet 20 daily . Center HYDROcodone Yes 1{tbl} Take [address] [facility] -acetaminop 5-10 tablet by Henrik es hen (NORCO 09:09: mouth Medica l 10-325) 20 every 6 Center 10-325 mg (six) per tablet hours as needed . gemfibrozil Yes 600mg Q.5D Take [address] (LOPID) 600 5-10 mg by [facility] tablet 09:09: mouth 2 Medic al 20 (two) Center times daily . primidone Yes 50mg QD Take [address] [facility] [address] [facility] (MYSOLINE) 5-10 by [facility] 50 MG 09:09: daily. Medical tablet 20 Center clonazePAM Yes 1mg QD Take [address] [facility] [address] [facility] (KLONOPIN) 5-10 by mouth [facility] 1 MG tablet 09:09: daily. Medi drew 20 Center MORPHINE IN Yes by [facility] NACL, 5-10 [facility] ISO-OSM/PF 09:09: l route. Med ical (MORPHINE, 20 Center PF, IN NACL, ISO-OSM INTRATHECAL ) losartan Yes 50mg QD Take [address] [facility] (COZAAR) 50 5-10 by mouth [facility] MG tablet 09:09: daily. Medica l 20 Center pramipexole Yes 1.5mg QD Take 1.[address] (MIRAPEX) 1 5-10 mg by [facility] tablet 09:09: mouth Medical 20 nightly . [place] pramipexole Yes 1.5mg QD Take 1.[address] (MIRAPEX) 1 5-10 mg by [facility] tablet 09:09: mouth Medical 20 nightly . [place] omeprazole Yes 20mg QD Take [address] [facility] (PRILOSEC) 5-10 by mouth [facility] 10 MG 09:09: daily . Medical capsule 20 Center citalopram Yes 40mg Take [address] [facility] (CELEXA) 40 5-10 by mouth. [facility] MG tablet 09:09: Medical 20 Center furosemide Yes 20mg Take [address] [facility] (LASIX) 20 5-10 by mouth [facility] tablet 09:09: as needed Med ical 20 . Center allopurinol Yes 300mg QD Take [address] (ZYLOPRIM) 5-10 mg by [facility] 300 MG 09:09: mouth Medical tablet 20 daily . [place] HYDROcodone Yes 1{tbl} Take [address] -acetaminop 5-10 tablet by Henrik es hen (NORCO 09:09: mouth Medica l 10-325) 20 every 6 Center 10-325 mg (six) per tablet hours as needed . gemfibrozil Yes 600mg Q.5D Take [address] (LOPID) 600 5-10 mg by [facility] tablet 09:09: mouth 2 Medic al 20 (two) Center times daily . primidone Yes 50mg QD Take [address] [facility] [address] [facility] (MYSOLINE) 5-10 by mouth [facility] 50 MG 09:09: daily. Medical tablet 20 Center clonazePAM Yes 1mg QD Take [address] [facility] [address] [facility] (KLONOPIN) 5-10 by mouth [facility] 1 MG tablet 09:09: daily. [place] [id number] [facility] NACL, 5-10 Intratheca [facility] ISO-OSM/PF 09:09: l route. Med ical (MORPHINE, 20 Center PF, IN NACL, ISO-OSM INTRATHECAL ) losartan Yes 50mg QD Take [address] [facility] (COZAAR) 50 5-10 by mouth [facility] MG tablet 09:09: daily. Medica l 20 Center omeprazole 0 Yes 20mg QD Take [address] (PRILOSEC) 5-10 by mouth [facility] 10 MG 09:09: daily . Medical capsule 20 Center citalopram Yes 40mg Take [address] (CELEXA) 40 5-10 by mouth. [facility] MG tablet 09:09: Medical 20 Center furosemide Yes 20mg Take [address] [facility] (LASIX) 20 5-10 by mouth [facility] tablet 09:09: as needed Med ical 20 . Center allopurinol Yes 300mg QD Take [address] (ZYLOPRIM) 5-10 mg by [facility] 300 MG 09:09: mouth Medical tablet 20 daily . Center HYDROcodone Yes 1{tbl} Take [address] -acetaminop 5-10 tablet by Henrik es hen (NORCO 09:09: mouth Medica l 10-325) 20 every 6 Center 10-325 mg (six) per tablet hours as needed . gemfibrozil Yes 600mg Q.5D Take [address] (LOPID) 600 5-10 mg by [facility] tablet 09:09: mouth 2 Medic al 20 (two) Center times daily . primidone Yes 50mg QD Take [address] [facility] (MYSOLINE) 5-10 by mouth [facility] 50 MG 09:09: daily. Medical tablet 20 Center clonazePAM Yes 1mg QD Take [address] [facility] [address] [facility] (KLONOPIN) 5-10 by mouth [facility] 1 MG tablet 09:09: daily. Medi drew 20 Center MORPHINE IN Yes by [facility] NACL, 5-10 Intratheca [facility] ISO-OSM/PF 09:09: l route. Med ical (MORPHINE, 20 Center PF, IN NACL, ISO-OSM INTRATHECAL ) losartan Yes 50mg QD Take [address] [facility] (COZAAR) 50 5-10 by mouth [facility] MG tablet 09:09: daily. Medica l 20 [place] pramipexole Yes 1.5mg QD Take 1.[address] (MIRAPEX) 1 5-10 mg by [facility] tablet 09:09: mouth Medical 20 nightly . [place] omeprazole Yes 20mg QD Take [address] (PRILOSEC) 5-10 by mouth [facility] 10 MG 09:09: daily . Medical capsule 20 Center citalopram Yes 40mg Take [address] (CELEXA) 40 5-10 by mouth. [facility] MG tablet 09:09: Medical 20 Center furosemide Yes 20mg Take [address] (LASIX) 20 5-10 by mouth [facility] tablet 09:09: as needed Med ical 20 . Center allopurinol Yes 300mg QD Take [address] (ZYLOPRIM) 5-10 mg by [facility] 300 MG 09:09: mouth Medical tablet 20 daily . [place] HYDROcodone Yes 1{tbl} Take [address] -acetaminop 5-10 tablet by [facility] hen (NORCO 09:09: mouth Medica l 10-325) 20 every 6 Center 10-325 mg (six) per tablet hours as needed . gemfibrozil 2017 Yes 600mg Q.5D Take [address] (LOPID) 600 5-10 mg by [facility] tablet 09:09: mouth 2 Medic al 20 (two) Center times daily . primidone Yes 50mg QD Take [address] [facility] (MYSOLINE) 5-10 by mouth [facility] 50 MG 09:09: daily. Medical tablet 20 Center clonazePAM Yes 1mg QD Take [address] [facility] [address] [facility] (KLONOPIN) 5-10 by mouth [facility] 1 MG tablet 09:09: daily. Medi drew 20 Center MORPHINE IN Yes by [facility] NACL, 5-10 Intratheca [facility] ISO-OSM/PF 09:09: l route. Med ical (MORPHINE, 20 Center PF, IN NACL, ISO-OSM INTRATHECAL ) losartan Yes 50mg QD Take [address] [facility] (COZAAR) 50 5-10 by mouth [facility] MG tablet 09:09: daily. Medica l 20 [place] pramipexole Yes 1.5mg QD Take 1.[address] (MIRAPEX) 1 5-10 mg by [facility] tablet 09:09: mouth Medical 20 nightly . [place] omeprazole Yes 20mg QD Take [address] (PRILOSEC) 5-10 by mouth [facility] 10 MG 09:09: daily . Medical capsule 20 Center citalopram Yes 40mg Take [address] (CELEXA) 40 5-10 by mouth. [facility] MG tablet 09:09: Medical 20 [place] furosemide [id number] Yes 20mg Take [address] (LASIX) 20 5-10 by mouth [facility] tablet 09:09: as needed Med ical 20 . [place] allopurinol Yes 300mg QD Take [address] (ZYLOPRIM) 5-10 mg by [facility] 300 MG 09:09: mouth Medical tablet 20 daily . Center HYDROcodone Yes 1{tbl} Take [address] -acetaminop 5-10 tablet by Henrik paul benitez (NORCO 09:09: mouth Medica l 10-325) 20 every 6 Center 10-325 mg (six) per tablet hours as needed . gemfibrozil Yes 600mg Q.5D Take [address] (LOPID) 600 5-10 mg by [facility] tablet 09:09: mouth 2 Medic al 20 (two) Center times daily . primidone Yes 50mg QD Take [address] (MYSOLINE) 5-10 by mouth [facility] 50 MG 09:09: daily. Medical tablet 20 Center clonazePAM Yes 1mg QD Take [address] [facility] [address] [facility] (KLONOPIN) 5-10 by [facility] 1 MG tablet 09:09: daily. Medi drew 20 Center MORPHINE IN Yes by [facility] NACL, 5-10 Intratheca [facility] ISO-OSM/PF 09:09: l route. Med ical (MORPHINE, 20 Center PF, IN NACL, ISO-OSM INTRATHECAL ) losartan Yes 50mg QD Take [address] [facility] (COZAAR) 50 5-10 by mouth [facility] MG tablet 09:09: daily. Medica l 20 Center allopurinol 2021- No [id number] 300mg Take 1 [facility] 300 mg 3-28 -08 tablet by [facility] of tablet 00:00: 00:00 mouth [place] 00 :00 daily. Medical Branch losartan 50 2020- No 50mg Take 1 [facility] vers mg tablet 3-17 -28 tablet by [facility]y of 00:00: 00:00 mouth [place] 00 :00 daily. Medical Branch gabapentin Yes 300mg QD Take [address] (NEURONTIN) 2-07 mg [facility] 300 MG 00:00: mouth Medical capsule 00 nightly . Center gabapentin Yes 300mg QD Take [address] (NEURONTIN) 2-07 mg by [facility] 300 MG 00:00: mouth Medical capsule 00 nightly . Center gabapentin Yes 300mg QD Take [address] (NEURONTIN) 2-07 mg by [facility] 300 MG 00:00: mouth Medical capsule 00 nightly . [place] gabapentin 0 Yes 300mg QD Take [address] (NEURONTIN) 2-07 mg by [facility] 300 MG 00:00: mouth Medical capsule 00 nightly . [place] gabapentin 0 Yes 300mg QD Take [address] (NEURONTIN) 2-07 mg by [facility] 300 MG 00:00: mouth Medical capsule 00 nightly . [place] traZODone Yes 50mg QD Take [address] [facility] (DESYREL) 1-23 by mouth [facility] 50 MG 00:00: daily . Medical tablet 00 [place] traZODone Yes 50mg QD Take [address] [facility] (DESYREL) 1-23 by [facility] 50 MG 00:00: daily . Medical tablet 00 [place] traZODone Yes 50mg QD Take [address] (DESYREL) 1-23 by [facility] 50 MG 00:00: daily . Medical tablet 00 [place] traZODone Yes 50mg QD Take [address] [facility] [address] [facility] (DESYREL) 1-23 by mouth [facility] 50 MG 00:00: daily . Medical tablet 00 [place] traZODone Yes 50mg QD Take [address] [facility] [address] [facility] (DESYREL) 1-23 by mouth [facility] 50 MG 00:00: daily . Medical tablet 00 [place] Immunizations Ordered Filled Immunization Date Status Comments [facility] e Immunization Name Name SARS-COV-2 COVID-19 2021-04-19 Completed [facility] MODER[facility] 0.25ML 00:00:00 [place] [facility] Influenza Virus 2021-04-19 Completed [facility] 00:00:[facility] [place] [facility] 65+ SARS-COV-2 COVID-19 2021-04-19 Completed [facility] MODERNA 0.25ML 00:00:00 [place] [facility] Influenza Virus 2021-04-19 Completed [facility] Vaccine,quad 00:00:00 [place] [facility] 65+ SARS-COV-2 COVID-19 2021-04-19 Completed [facility] MODERNA 0.25ML 00:00:00 [place] [facility]ACC[facility] Influenza Virus 2021-04-19 Completed [facility] Vaccine,quad 00:00:00 [place] [facility] 65+ SARS-COV-2 COVID-19 2021-04-19 Completed [facility] MODERNA 0.25ML 00:00:00 [place] [facility]ACC[facility] Influenza Virus 2021-04-19 Completed [facility] Vaccine,quad 00:00:00 [place] [facility] 65+ SARS-COV-2 COVID-19 2021-04-19 Completed [facility] MODERNA 0.25ML 00:00:00 [place] [facility]ACC[facility] Influenza Virus 2021-04-19 Completed [facility] Vaccine,quad 00:00:00 [place] [facility] 65+ SARS-COV-2 COVID-19 2021-04-19 Completed [facility] MODERNA 0.25ML 00:00:00 [place] [facility]ACC[facility] Influenza Virus 2021-04-19 Completed [facility] Vaccine,quad 00:00:00 [place] [facility] 65+ SARS-COV-2 COVID-19 2021-04-19 Completed [facility] MODERNA 0.25ML 00:00:00 [place] [facility] VACCINE [facility] Influenza Virus 2021-04-19 Completed [facility] Vaccine,quad 00:00:00 [place] [facility] 65+ SARS-COV-2 COVID-19 2021-04-19 Completed [facility] MODERNA 0.25ML 00:00:00 [place] [facility] VACCINE [facility] Influenza Virus 2021-04-19 Completed [facility] Vaccine,quad 00:00:00 [place] [facility] 65+ SARS-COV-2 COVID-19 2021-04-19 Completed [facility] MODERNA 0.25ML 00:00:00 [place] [facility]ACC[facility] Influenza Virus 2021-04-19 Completed [facility] Vaccine,quad 00:00:00 [place] [facility] 65+ SARS-COV-2 COVID-19 2021-04-19 Completed [facility] MODERNA 0.25ML 00:00:00 [place] [facility]ACC[facility] Influenza Virus 2021-04-19 Completed [facility] Vaccine,quad 00:00:00 [place] [facility] 65+ SARS-COV-2 COVID-19 2021-04-19 Completed [facility] MODERNA 0.25ML 00:00:00 [place] [facility] VACCINE [facility] Influenza Virus 2021-04-19 Completed [facility] Vaccine,quad 00:00:00 [place] [facility] 65+ SARS-COV-2 COVID-19 2021-04-19 Completed [facility] MODERNA 0.25ML 00:00:00 [place] [facility] VACCINE [facility] Influenza Virus 2021-04-19 Completed [facility] Vaccine,quad 00:00:00 [place] [facility] 65+ SARS-COV-2 COVID-19 2021-04-19 Completed [facility] MODERNA 0.25ML 00:00:00 [place] [facility]ACCINE [facility] Influenza Virus 2021-04-19 Completed [facility] Vaccine,quad 00:00:00 [place] [facility] 65+ SARS-COV-2 COVID-19 2021-04-19 Completed [facility] MODERNA 0.25ML 00:00:00 [place] [facility] VACCINE [facility] Influenza Virus 2021-04-19 Completed [facility] Vaccine,quad 00:00:00 [place] [facility] 65+ SARS-COV-2 COVID-19 2021-04-19 Completed [facility] MODERNA 0.25ML 00:00:00 [place] [facility] VACCINE [facility] Influenza Virus 2021-04-19 Completed [facility] Vaccine,quad 00:00:00 [place] [facility] 65+ SARS-COV-2 COVID-19 2021-04-19 Completed [facility] of MODERNA 0.25ML 00:00:00 [place] [facility] VACCINE [facility] Influenza Virus 2021-04-19 Completed [facility] Vaccine,quad 00:00:00 [place] [facility] 65+ SARS-COV-2 COVID-19 2021-04-19 Completed [facility] MODERNA 0.25ML 00:00:00 [place] [facility] VACCINE [facility] Influenza Virus 2021-04-19 Completed [facility] Vaccine,quad 00:00:00 [place] [facility] 65+ SARS-COV-2 COVID-19 2021-04-19 Completed [facility] MODERNA 0.25ML 00:00:00 [place] [facility] VACCINE [facility] Influenza Virus 2021-04-19 Completed [facility] Vaccine,quad 00:00:00 [place] [facility] 65+ SARS-COV-2 COVID-19 2021-04-19 Completed [facility] MODERNA 0.25ML 00:00:00 [place] [facility] VACCINE [facility] Influenza Virus 2021-04-19 Completed [facility] Vaccine,quad 00:00:00 [place] [facility] 65+ SARS-COV-2 COVID-19 2021-04-19 Completed [facility] MODERNA 0.25ML 00:00:00 [place] [facility] VACCINE [facility] Influenza Virus 2021-04-19 Completed [facility] Vaccine,quad 00:00:00 [place] [facility] 65+ SARS-COV-2 COVID-19 2021-04-19 Completed [facility] MODERNA 0.25ML 00:00:00 [place] [facility] VACCINE [facility] Influenza Virus 2021-04-19 Completed [facility] Vaccine,quad 00:00:00 [place] [facility] 65+ SARS-COV-2 COVID-19 2021-04-19 Completed [facility] of MODERNA 0.25ML 00:00:00 [place] [facility] VACCINE [facility] Influenza Virus 2021-04-19 Completed [facility] Vaccine,quad 00:00:00 [place] [facility] 65+ SARS-COV-2 COVID-19 2021-04-19 Completed [facility] of MODERNA 0.25ML 00:00:00 [place] [facility] VACCINE [facility] Influenza Virus 2021-04-19 Completed [facility] Vaccine,quad 00:00:00 [place] [facility] 65+ SARS-COV-2 COVID-19 2021-04-19 Completed [facility] of MODERNA 0.25ML 00:00:00 [place] [facility] VACCINE [facility] Influenza Virus 2021-04-19 Completed [facility] Vaccine,quad 00:00:00 [place] [facility] 65+ SARS-COV-2 COVID-19 2021-04-19 Completed [facility] of MODERNA 0.25ML 00:00:00 [place] [facility] VACCINE [facility] Influenza Virus 2021-04-19 Completed [facility] Vaccine,quad 00:00:00 [place] [facility] 65+ SARS-COV-2 COVID-19 2021-04-19 Completed [facility] of MODERNA 0.25ML 00:00:00 [place] [facility] VACCINE [facility] Influenza Virus 2021-04-19 Completed [facility] Vaccine,quad 00:00:00 [place] [facility] 65+ SARS-COV-2 COVID-19 2021-04-19 Completed [facility] of MODERNA 0.25ML 00:00:00 [place] [facility] VACCINE [facility] Influenza Virus 2021-04-19 Completed [facility] Vaccine,quad 00:00:00 [place] [facility] 65+ SARS-COV-2 COVID-19 2021-04-19 Completed [facility] of MODERNA 0.25ML 00:00:00 [place] [facility] VACCINE [facility] Influenza Virus 2021-04-19 Completed [facility] Vaccine,quad 00:00:00 [place] [facility] 65+ SARS-COV-2 COVID-19 2021-04-19 Completed [facility] of MODERNA 0.25ML 00:00:00 [place] [facility] VACCINE [facility] Influenza Virus 2021-04-19 Completed [facility] Vaccine,quad 00:00:00 [place] [facility] 65+ SARS-COV-2 COVID-19 2021-04-19 Completed [facility] of MODERNA 0.25ML 00:00:00 [place] [facility] VACCINE [facility] Influenza Virus 2021-04-19 Completed [facility] Vaccine,quad 00:00:00 [place] [facility] 65+ SARS-COV-2 COVID-19 2021-04-19 Completed [facility] of MODERNA 0.25ML 00:00:00 [place] [facility] VACCINE [facility] Influenza Virus 2021-04-19 Completed [facility] Vaccine,quad 00:00:00 [place] [facility] 65+ SARS-COV-2 COVID-19 2021-04-19 Completed [facility] of MODERNA 0.25ML 00:00:00 [place] [facility] VACCINE [facility] Influenza Virus 2021-04-19 Completed [facility] Vaccine,quad 00:00:00 [place] [facility] 65+ SARS-COV-2 COVID-19 2021-04-19 Completed [facility] of MODERNA 0.25ML 00:00:00 [place] [facility] VACCINE [facility] Influenza Virus 2021-04-19 Completed [facility] Vaccine,quad 00:00:00 [place] [facility] 65+ SARS-COV-2 COVID-19 2021-04-19 Completed [facility] of MODERNA 0.25ML 00:00:00 [place] [facility] VACCINE [facility] Influenza Virus 2021-04-19 Completed [facility] Vaccine,quad 00:00:00 [place] [facility] 65+ SARS-COV-2 COVID-19 2021-04-19 Completed [facility] of MODERNA 0.25ML 00:00:00 [place] [facility] VACCINE [facility] Influenza Virus 2021-04-19 Completed [facility] Vaccine,quad 00:00:00 [place] [facility] 65+ SARS-COV-2 COVID-19 2021-04-19 Completed [facility] of MODERNA 0.25ML 00:00:00 [place] [facility] VACCINE [facility] Influenza Virus 2021-04-19 Completed [facility] Vaccine,quad 00:00:00 [place] [facility] 65+ SARS-COV-2 COVID-19 2021-04-19 Completed [facility] of MODERNA 0.25ML 00:00:00 [place] [facility] VACCINE [facility] Influenza Virus 2021-04-19 Completed [facility] Vaccine,quad 00:00:00 [place] [facility] 65+ SARS-COV-2 COVID-19 2021-04-19 Completed [facility] of MODERNA 0.25ML 00:00:00 [place] [facility] BOOSTER VACCINE [facility] Influenza Virus 2021-04-19 Completed [facility] Vaccine,quad 00:00:00 [place] [facility] 65+ SARS-COV-2 COVID-19 2021-04-19 Completed [facility] of MODERNA 0.25ML 00:00:00 [place] [facility] BOOSTER VACCINE [facility] Influenza Virus 2021-04-19 Completed [facility] Vaccine,quad 00:00:00 [place] [facility] 65+ SARS-COV-2 COVID-19 2021-04-19 Completed [facility] of MODERNA 0.25ML 00:00:00 [place] [facility] BOOSTER VACCINE [facility] Influenza Virus 2021-04-19 Completed [facility] Vaccine,quad 00:00:00 [place] [facility] 65+ SARS-COV-2 COVID-19 2021-04-19 Completed [facility] of MODERNA 0.25ML 00:00:00 [place] [facility] VACCINE [facility] Influenza Virus 2021-04-19 Completed [facility] Vaccine,quad 00:00:00 [place] [facility] 65+ SARS-COV-2 COVID-19 2021-04-19 Completed [facility] of MODERNA 0.25ML 00:00:00 [place] [facility] BOOSTER VACCINE [facility] Influenza Virus 2021-04-19 Completed [facility] Vaccine,quad 00:00:00 [place] [facility] 65+ SARS-COV-2 COVID-19 2021-04-19 Completed [facility] of MODERNA 0.25ML 00:00:00 [place] [facility] BOOSTER VACCINE [facility] Influenza Virus 2021-04-19 Completed [facility] Vaccine,quad 00:00:00 [place] [facility] 65+ SARS-COV-2 COVID-19 2021-04-19 Completed [facility] of MODERNA 0.25ML 00:00:00 [place] [facility]ER VACCINE [facility] Influenza Virus 2021-04-19 Completed [facility] Vaccine,quad 00:00:00 [place] [facility] 65+ SARS-COV-2 COVID-19 2021-04-19 Completed [facility] of MODERNA 0.25ML 00:00:00 [place] [facility] BOOSTER VACCINE [facility] Influenza Virus 2021-04-19 Completed [facility] Vaccine,quad 00:00:00 [place] [facility] 65+ SARS-COV-2 COVID-19 2021-04-19 Completed [facility] of MODERNA 0.25ML 00:00:00 [place] [facility] BOOSTER VACCINE [facility] Influenza Virus 2021-04-19 Completed [facility] Vaccine,quad 00:00:00 [place] [facility] 65+ SARS-COV-2 COVID-19 2021-04-19 Completed [facility] of MODERNA 0.25ML 00:00:00 [place] [facility] BOOST[facility] VACCINE [facility] Influenza Virus 2021-04-19 Completed [facility] Vaccine,quad 00:00:00 [place] [facility] 65+ SARS-COV-2 COVID-19 2021-04-19 Completed [facility] of MODERNA 0.25ML 00:00:00 [place] [facility] BOOST[facility] VACCINE [facility] Influenza Virus 2021-04-19 Completed [facility] Vaccine,quad 00:00:00 [place] [facility] 65+ SARS-COV-2 COVID-19 2021-04-19 Completed [facility] of MODERNA 0.25ML 00:00:00 [place] [facility]ER VACCINE [facility] Influenza Virus 2021-04-19 Completed [facility] Vaccine,quad 00:00:00 [place] [facility] 65+ SARS-COV-2 COVID-19 2021-04-19 Completed [facility] of MODERNA 0.25ML 00:00:00 [place] [facility] BOOSTER VACCINE [facility] Influenza Virus 2021-04-19 Completed [facility] Vaccine,quad 00:00:00 [place] [facility] 65+ SARS-COV-2 COVID-19 2021-04-19 Completed [facility] of MODERNA 0.25ML 00:00:00 [place] [facility] BOOSTER VACCINE [facility] Influenza Virus 2021-04-19 Completed [facility] Vaccine,quad 00:00:00 [place] [facility] 65+ SARS-COV-2 COVID-19 2021-04-19 Completed [facility] of MODERNA 0.25ML 00:00:00 [place] [facility] BOOST[facility] VACCINE [facility] Influenza Virus 2021-04-19 Completed [facility] Vaccine,quad 00:00:00 [place] [facility] 65+ SARS-COV-2 COVID-19 2021-04-19 Completed [facility] of MODERNA 0.25ML 00:00:00 [place] [facility] BOOSTER VACCINE [facility] Influenza Virus 2021-04-19 Completed [facility] Vaccine,quad 00:00:00 [place] [facility] 65+ SARS-COV-2 COVID-19 2021-04-19 Completed [facility] of MODERNA 0.25ML 00:00:00 [place] [facility] BOOSTER VACCINE [facility] Influenza Virus 2021-04-19 Completed [facility] Vaccine,quad 00:00:00 [place] [facility] 65+ SARS-COV-2 COVID-19 2021-04-19 Completed [facility] of MODERNA 0.25ML 00:00:00 [place] [facility] BOOSTER VACCINE [facility] Influenza Virus 2021-04-19 Completed [facility] Vaccine,quad 00:00:00 [place] [facility] 65+ SARS-COV-2 COVID-19 2021-04-19 Completed [facility] of MODERNA 0.25ML 00:00:00 [place] [facility] BOOSTER VACCINE [facility] Influenza Virus 2021-04-19 Completed [facility] Vaccine,quad 00:00:00 [place] [facility] 65+ SARS-COV-2 COVID-19 2021-04-19 Completed [facility] of MODERNA 0.25ML 00:00:00 [place] [facility] BOOSTER VACCINE [facility] Influenza Virus 2021-04-19 Completed [facility] Vaccine,quad 00:00:00 [place] [facility] 65+ SARS-COV-2 COVID-19 2021-04-19 Completed [facility] of MODERNA 0.25ML 00:00:00 [place] [facility] BOOSTER VACCINE [facility] Influenza Virus 2021-04-19 Completed [facility] Vaccine,quad 00:00:00 [place] [facility] 65+ SARS-COV-2 COVID-19 2021-04-19 Completed [facility] of MODERNA 0.25ML 00:00:00 [place] [facility] BOOSTER VACCINE [facility] Influenza Virus 2021-04-19 Completed [facility] Vaccine,quad 00:00:00 [place] [facility] 65+ SARS-COV-2 COVID-19 2021-04-19 Completed [facility] of MODERNA 0.25ML 00:00:00 [place] [facility] BOOSTER VACCINE [facility] Influenza Virus 2021-04-19 Completed [facility] Vaccine,quad 00:00:00 [place] [facility] 65+ SARS-COV-2 COVID-19 2021-04-19 Completed [facility] of MODERNA 0.25ML 00:00:00 [place] [facility] BOOSTER VACCINE [facility] Influenza Virus 2021-04-19 Completed [facility] Vaccine,quad 00:00:00 [place] [facility] 65+ SARS-COV-2 COVID-19 2021-04-19 Completed [facility] of MODERNA 0.25ML 00:00:00 [place] [facility] BOOSTER VACCINE [facility] Influenza Virus 2021-04-19 Completed [facility] Vaccine,quad 00:00:00 [place] [facility] 65+ SARS-COV-2 COVID-19 2021-04-19 Completed [facility] of MODERNA 0.25ML 00:00:00 [place] [facility] BOOSTER VACCINE [facility] Influenza Virus 2021-04-19 Completed [facility] Vaccine,quad 00:00:00 [place] [facility] 65+ SARS-COV-2 COVID-19 2021-04-19 Completed [facility] of MODERNA 0.25ML 00:00:00 [place] [facility] BOOSTER VACCINE [facility] Influenza Virus 2021-04-19 Completed [facility] Vaccine,quad 00:00:00 [place] [facility] 65+ SARS-COV-2 COVID-19 2021-04-19 Completed [facility] of MODERNA 0.25ML 00:00:00 [place] [facility] BOOSTER VACCINE [facility] Influenza Virus 2021-04-19 Completed [facility] Vaccine,quad 00:00:00 [place] [facility] 65+ SARS-COV-2 COVID-19 2021-04-19 Completed [facility] of MODERNA 0.25ML 00:00:00 [place] [facility] BOOSTER VACCINE [facility] Influenza Virus 2021-04-19 Completed [facility] Vaccine,quad 00:00:00 [place] [facility] 65+ SARS-COV-2 COVID-19 2021-04-19 Completed [facility] rs[facility] of MODERNA 0.25ML 00:00:00 [place] [facility] BOOSTER VACCINE [facility] Influenza Virus 2021-04-19 Completed [facility] Vaccine,quad 00:00:00 [place] [facility] 65+ SARS-COV-2 COVID-19 2021-04-19 Completed [facility] rsity of MODERNA 0.25ML 00:00:00 [place] [facility] BOOSTER VACCINE [facility] Influenza Virus 2021-04-19 Completed [facility] Vaccine,quad 00:00:00 [place] [facility] 65+ SARS-COV-2 COVID-19 2021-04-19 Completed [facility] rs[facility] of MODERNA 0.25ML 00:00:00 [place] [facility] BOOSTER VACCINE [facility] Influenza Virus 2021-04-19 Completed [facility] Vaccine,quad 00:00:00 [place] [facility] 65+ SARS-COV-2 COVID-19 2021-04-19 Completed [facility] rs[facility] of MODERNA 0.25ML 00:00:00 [place] [facility] BOOSTER VACCINE [facility] Influenza Virus 2021-04-19 Completed [facility] Vaccine,quad 00:00:00 [place] [facility] 65+ SARS-COV-2 COVID-19 2021-04-19 Completed [facility] rs[facility] of MODERNA 0.25ML 00:00:00 [place] [facility] BOOSTER VACCINE [facility] Influenza Virus 2021-04-19 Completed [facility] Vaccine,quad 00:00:00 [place] [facility] 65+ SARS-COV-2 COVID-19 2021-04-19 Completed [facility] rs[facility] of MODERNA 0.25ML 00:00:00 [place] [facility] BOOST[facility] VACCINE [facility] Influenza Virus 2021-04-19 Completed [facility] Vaccine,quad 00:00:00 [place] [facility] 65+ SARS-COV-2 COVID-19 2021-04-19 Completed [facility] rsity of MODERNA 0.25ML 00:00:00 [place] [facility] VACCINE [facility] Influenza Virus 2021-04-19 Completed [facility] Vaccine,quad 00:00:00 [place] [facility] 65+ Influenza Virus 2019-12-24 Completed [facility] Vaccine (3+ yrs) 00:00:00 [place] [facility] Influenza Virus 2019-12-24 Completed [facility] Vaccine (3+ yrs) 00:00:00 [facility] Influenza Virus 2019-12-24 Completed [facility] of Vaccine (3+ yrs) 00:00:00 [facility] Influenza Virus 2019-12-24 Completed [facility] of Vaccine (3+ yrs) 00:00:00 [facility] Influenza Virus 2019-12-24 Completed [facility] of Vaccine (3+ yrs) 00:00:00 [facility] Influenza Virus 2019-12-24 Completed [facility] of Vaccine (3+ yrs) 00:00:00 [facility] Influenza Virus 2019-12-24 Completed [facility] Vaccine (3+ yrs) 00:00:00 [facility] Influenza Virus 2019-12-24 Completed [facility] Vaccine (3+ yrs) 00:00:00 [facility] Influenza Virus 2019-12-24 Completed [facility] Vaccine (3+ yrs) 00:00:00 [facility] Influenza Virus 2019-12-24 Completed [facility] Vaccine (3+ yrs) 00:00:00 [facility] Influenza Virus 2019-12-24 Completed [facility] Vaccine (3+ yrs) 00:00:00 [facility] Influenza Virus 2019-12-24 Completed [facility] Vaccine (3+ yrs) 00:00:00 [facility] Influenza Virus 2019-12-24 Completed [facility] of Vaccine (3+ yrs) 00:00:00 [facility] Influenza Virus 2019-12-24 Completed [facility] Vaccine (3+ yrs) 00:00:00 [facility] Influenza Virus 2019-12-24 Completed [facility] Vaccine (3+ yrs) 00:00:00 [facility] Influenza Virus 2019-12-24 Completed [facility] Vaccine (3+ yrs) 00:00:00 [facility] Influenza Virus 2019-12-24 Completed [facility] Vaccine (3+ yrs) 00:00:00 [facility] Influenza Virus 2019-12-24 Completed [facility] Vaccine (3+ yrs) 00:00:00 [facility] Influenza Virus 2019-12-24 Completed [facility] Vaccine (3+ yrs) 00:00:00 [facility] Influenza Virus 2019-12-24 Completed [facility] Vaccine (3+ yrs) 00:00:00 [facility] Influenza Virus 2019-12-24 Completed [facility] Vaccine (3+ yrs) 00:00:00 [facility] Influenza Virus 2019-12-24 Completed [facility] Vaccine (3+ yrs) 00:00:00 [facility] Influenza Virus 2019-12-24 Completed [facility] Vaccine (3+ yrs) 00:00:00 [facility] Influenza Virus 2019-12-24 Completed [facility] Vaccine (3+ yrs) 00:00:00 [facility] Influenza Virus 2019-12-24 Completed [facility] Vaccine (3+ yrs) 00:00:00 [facility] Influenza Virus 2019-12-24 Completed [facility] Vaccine (3+ yrs) 00:00:00 [facility] Influenza Virus 2019-12-24 Completed [facility] Vaccine (3+ yrs) 00:00:00 [facility] Influenza Virus 2019-12-24 Completed [facility] Vaccine (3+ yrs) 00:00:00 [facility] Influenza Virus 2019-12-24 Completed [facility] Vaccine (3+ yrs) 00:00:00 [facility] Influenza Virus 2019-12-24 Completed [facility] Vaccine (3+ yrs) 00:00:00 [facility] Influenza Virus 2019-12-24 Completed [facility] Vaccine (3+ yrs) 00:00:00 [facility] Influenza Virus 2019-12-24 Completed [facility] Vaccine (3+ yrs) 00:00:00 [facility] Influenza Virus 2019-12-24 Completed [facility] Vaccine (3+ yrs) 00:00:00 [facility] Influenza Virus 2019-12-24 Completed [facility] Vaccine (3+ yrs) 00:00:00 [facility] Influenza Virus 2019-12-24 Completed [facility] Vaccine (3+ yrs) 00:00:00 [facility] Influenza Virus 2019-12-24 Completed [facility] Vaccine (3+ yrs) 00:00:00 [facility] Influenza Virus 2019-12-24 Completed [facility] Vaccine (3+ yrs) 00:00:00 [facility] Influenza Virus 2019-12-24 Completed [facility] Vaccine (3+ yrs) 00:00:00 [facility] Influenza Virus 2019-12-24 Completed [facility] Vaccine (3+ yrs) 00:00:00 [facility] Influenza Virus 2019-12-24 Completed [facility] Vaccine (3+ yrs) 00:00:00 [facility] Influenza Virus 2019-12-24 Completed [facility] Vaccine (3+ yrs) 00:00:00 [facility] Influenza Virus 2019-12-24 Completed [facility] Vaccine (3+ yrs) 00:00:00 [facility] Influenza Virus 2019-12-24 Completed [facility] Vaccine (3+ yrs) 00:00:00 [facility] Influenza Virus 2019-12-24 Completed [facility] Vaccine (3+ yrs) 00:00:00 [facility] Influenza Virus 2019-12-24 Completed [facility] Vaccine (3+ yrs) 00:00:00 [facility] Influenza Virus 2019-12-24 Completed [facility] Vaccine (3+ yrs) 00:00:00 [facility] Influenza Virus 2019-12-24 Completed [facility] Vaccine (3+ yrs) 00:00:00 [facility] Influenza Virus 2019-12-24 Completed [facility] Vaccine (3+ yrs) 00:00:00 [facility] Influenza Virus 2019-12-24 Completed [facility] Vaccine (3+ yrs) 00:00:00 [facility] Influenza Virus 2019-12-24 Completed [facility] Vaccine (3+ yrs) 00:00:00 [facility] Influenza Virus 2019-12-24 Completed [facility] Vaccine (3+ yrs) 00:00:00 [facility] Influenza Virus 2019-12-24 Completed [facility] Vaccine (3+ yrs) 00:00:00 [facility] Influenza Virus 2019-12-24 Completed [facility] Vaccine (3+ yrs) 00:00:00 [facility] Influenza Virus 2019-12-24 Completed [facility] Vaccine (3+ yrs) 00:00:00 [facility] Influenza Virus 2019-12-24 Completed [facility] Vaccine (3+ yrs) 00:00:00 [facility] Influenza Virus 2019-12-24 Completed [facility] Vaccine (3+ yrs) 00:00:00 [place] [facility] Influenza Virus 2019-12-24 Completed [facility] Vaccine (3+ yrs) 00:00:00 [facility] Influenza Virus 2019-12-24 Completed [facility] Vaccine (3+ yrs) 00:00:00 [facility] Influenza Virus 2019-12-24 Completed [facility] Vaccine (3+ yrs) 00:00:00 [facility] Influenza Virus 2019-12-24 Completed [facility] Vaccine (3+ yrs) 00:00:00 [facility] Influenza Virus 2019-12-24 Completed [facility] Vaccine (3+ yrs) 00:00:00 [facility] Influenza Virus 2019-12-24 Completed [facility] Vaccine (3+ yrs) 00:00:00 [facility] Influenza Virus 2019-12-24 Completed [facility] Vaccine (3+ yrs) 00:00:00 [facility] Influenza Virus 2019-12-24 Completed [facility] Vaccine (3+ yrs) 00:00:00 [facility] Influenza Virus 2019-12-24 Completed [facility] Vaccine (3+ yrs) 00:00:00 [facility] Influenza Virus 2019-12-24 Completed [facility] Vaccine (3+ yrs) 00:00:00 [facility] Influenza Virus 2019-12-24 Completed [facility] Vaccine (3+ yrs) 00:00:00 [facility] Influenza Virus 2019-12-24 Completed [facility] Vaccine (3+ yrs) 00:00:00 [facility] Influenza Virus 2019-12-24 Completed [facility] Vaccine (3+ yrs) 00:00:00 [facility] Influenza Virus 2019-12-24 Completed [facility] Vaccine (3+ yrs) 00:00:00 [facility] Influenza Virus 2019-12-24 Completed [facility] Vaccine (3+ yrs) 00:00:00 [facility] Influenza Virus 2019-12-24 Completed [facility] Vaccine (3+ yrs) 00:00:00 [facility] Influenza Virus 2019-12-24 Completed [facility] Vaccine (3+ yrs) 00:00:00 [facility] Influenza Virus 2019-12-24 Completed [facility] Vaccine (3+ yrs) 00:00:00 [facility] Influenza Virus 2019-11-26 Completed [facility] Vaccine (3+ yrs) 00:00:00 [facility] Influenza Virus 2019-11-26 Completed [facility] Vaccine (3+ yrs) 00:00:00 [facility] Influenza Virus 2019-11-26 Completed [facility] Vaccine (3+ yrs) 00:00:00 [facility] Influenza Virus 2019-11-26 Completed [facility] Vaccine (3+ yrs) 00:00:00 [facility] Influenza Virus 2019-11-26 Completed [facility] Vaccine (3+ yrs) 00:00:00 [facility] Influenza Virus 2019-11-26 Completed [facility] Vaccine (3+ yrs) 00:00:00 [facility] Influenza Virus 2019-11-26 Completed [facility] Vaccine (3+ yrs) 00:00:00 [facility] Influenza Virus 2019-11-26 Completed [facility] Vaccine (3+ yrs) 00:00:00 [facility] Influenza Virus 2019-11-26 Completed [facility] Vaccine (3+ yrs) 00:00:00 [facility] Influenza Virus 2019-11-26 Completed [facility] Vaccine (3+ yrs) 00:00:00 [facility] Influenza Virus 2019-11-26 Completed [facility] Vaccine (3+ yrs) 00:00:00 [facility] Influenza Virus 2019-11-26 Completed [facility] Vaccine (3+ yrs) 00:00:00 [facility] Influenza Virus 2019-11-26 Completed [facility] Vaccine (3+ yrs) 00:00:00 [facility] Influenza Virus 2019-11-26 Completed [facility] Vaccine (3+ yrs) 00:00:00 [facility] Influenza Virus 2019-11-26 Completed [facility] Vaccine (3+ yrs) 00:00:00 [facility] Influenza Virus 2019-11-26 Completed [facility] Vaccine (3+ yrs) 00:00:00 [facility] Influenza Virus 2019-11-26 Completed [facility] Vaccine (3+ yrs) 00:00:00 [facility] Influenza Virus 2019-11-26 Completed [facility] Vaccine (3+ yrs) 00:00:00 [facility] Influenza Virus 2019-11-26 Completed [facility] Vaccine (3+ yrs) 00:00:00 [facility] Influenza Virus 2019-11-26 Completed [facility] Vaccine (3+ yrs) 00:00:00 [facility] Influenza Virus 2019-11-26 Completed [facility] Vaccine (3+ yrs) 00:00:00 [facility] Influenza Virus 2019-11-26 Completed [facility] Vaccine (3+ yrs) 00:00:00 [facility] Influenza Virus 2019-11-26 Completed [facility] Vaccine (3+ yrs) 00:00:00 [facility] Influenza Virus 2019-11-26 Completed [facility] Vaccine (3+ yrs) 00:00:00 [facility] Influenza Virus 2019-11-26 Completed [facility] Vaccine (3+ yrs) 00:00:00 [facility] Influenza Virus 2019-11-26 Completed [facility] Vaccine (3+ yrs) 00:00:00 [facility] Influenza Virus 2019-11-26 Completed [facility] Vaccine (3+ yrs) 00:00:00 [facility] Influenza Virus 2019-11-26 Completed [facility] Vaccine (3+ yrs) 00:00:00 [facility] Influenza Virus 2019-11-26 Completed [facility] Vaccine (3+ yrs) 00:00:00 [facility] Influenza Virus 2019-11-26 Completed [facility] Vaccine (3+ yrs) 00:00:00 [facility] Influenza Virus 2019-11-26 Completed [facility] Vaccine (3+ yrs) 00:00:00 [facility] Influenza Virus 2019-11-26 Completed [facility] Vaccine (3+ yrs) 00:00:00 [facility] Influenza Virus 2019-11-26 Completed [facility] Vaccine (3+ yrs) 00:00:00 [facility] Influenza Virus 2019-11-26 Completed [facility] Vaccine (3+ yrs) 00:00:00 [facility] Influenza Virus 2019-11-26 Completed [facility] Vaccine (3+ yrs) 00:00:00 [facility] Influenza Virus 2019-11-26 Completed [facility] Vaccine (3+ yrs) 00:00:00 [facility] Influenza Virus 2019-11-26 Completed [facility] Vaccine (3+ yrs) 00:00:00 [facility] Influenza Virus 2019-11-26 Completed [facility] Vaccine (3+ yrs) 00:00:00 [facility] Influenza Virus 2019-11-26 Completed [facility] Vaccine (3+ yrs) 00:00:00 [facility] Influenza Virus 2019-11-26 Completed [facility] Vaccine (3+ yrs) 00:00:00 [facility] Influenza Virus 2019-11-26 Completed [facility] Vaccine (3+ yrs) 00:00:00 [facility] Influenza Virus 2019-11-26 Completed [facility] Vaccine (3+ yrs) 00:00:00 [facility] Influenza Virus 2019-11-26 Completed [facility] Vaccine (3+ yrs) 00:00:00 [facility] Influenza Virus 2019-11-26 Completed [facility] Vaccine (3+ yrs) 00:00:00 [facility] Influenza Virus 2019-11-26 Completed [facility] Vaccine (3+ yrs) 00:00:00 [facility] Influenza Virus 2019-11-26 Completed [facility] Vaccine (3+ yrs) 00:00:00 [facility] Influenza Virus 2019-11-26 Completed [facility] Vaccine (3+ yrs) 00:00:00 [facility] Influenza Virus 2019-11-26 Completed [facility] Vaccine (3+ yrs) 00:00:00 [facility] Influenza Virus 2019-11-26 Completed [facility] Vaccine (3+ yrs) 00:00:00 [facility] Influenza Virus 2019-11-26 Completed [facility] Vaccine (3+ yrs) 00:00:00 [facility] Influenza Virus 2019-11-26 Completed [facility] Vaccine (3+ yrs) 00:00:00 [facility] Influenza Virus 2019-11-26 Completed [facility] Vaccine (3+ yrs) 00:00:00 [facility] Influenza Virus 2019-11-26 Completed [facility] Vaccine (3+ yrs) 00:00:00 [facility] Influenza Virus 2019-11-26 Completed [facility] Vaccine (3+ yrs) 00:00:00 [facility] Influenza Virus 2019-11-26 Completed [facility] Vaccine (3+ yrs) 00:00:00 [facility] Influenza Virus 2019-11-26 Completed [facility] Vaccine (3+ yrs) 00:00:00 [facility] Influenza Virus 2019-11-26 Completed [facility] Vaccine (3+ yrs) 00:00:00 [facility] Influenza Virus 2019-11-26 Completed [facility] Vaccine (3+ yrs) 00:00:00 [facility] Influenza Virus 2019-11-26 Completed [facility] Vaccine (3+ yrs) 00:00:00 [facility] Influenza Virus 2019-11-26 Completed [facility] Vaccine (3+ yrs) 00:00:00 [facility] Influenza Virus 2019-11-26 Completed [facility] Vaccine (3+ yrs) 00:00:00 [facility] Influenza Virus 2019-11-26 Completed [facility] Vaccine (3+ yrs) 00:00:00 [facility] Influenza Virus 2019-11-26 Completed [facility] Vaccine (3+ yrs) 00:00:00 [facility] Influenza Virus 2019-11-26 Completed [facility] Vaccine (3+ yrs) 00:00:00 [facility] Influenza Virus 2019-11-26 Completed [facility] Vaccine (3+ yrs) 00:00:00 [facility] Influenza Virus 2019-11-26 Completed [facility] Vaccine (3+ yrs) 00:00:00 [facility] Influenza Virus 2019-11-26 Completed [facility] Vaccine (3+ yrs) 00:00:00 [facility] Influenza Virus 2019-11-26 Completed [facility] Vaccine (3+ yrs) 00:00:00 [facility] Influenza Virus 2019-11-26 Completed [facility] Vaccine (3+ yrs) 00:00:00 [facility] Influenza Virus 2019-11-26 Completed [facility] Vaccine (3+ yrs) 00:00:00 [facility] Influenza Virus 2019-11-26 Completed [facility] Vaccine (3+ yrs) 00:00:00 [facility] Influenza Virus 2019-11-26 Completed [facility] Vaccine (3+ yrs) 00:00:00 [facility] Influenza Virus 2019-11-26 Completed [facility] Vaccine (3+ yrs) 00:00:00 [facility] Influenza Virus 2019-11-26 Completed [facility] Vaccine (3+ yrs) 00:00:00 [facility] Twinrix (hep a/hep 2019-05-23 Completed [facility] of b) 00:00:00 [facility] Twinrix (hep a/hep 2019-05-23 Completed [facility] s[facility] of b) 00:00:00 [facility] Twinrix (hep a/hep 2019-05-23 Completed [facility] sity of b) 00:00:00 [facility] Twinrix (hep a/hep 2019-05-23 Completed [facility] sity of b) 00:00:00 [facility] Twin[facility] (hep a/hep 2019-05-23 Completed [facility] s[facility] of b) 00:00:00 [facility] (hep a/hep 2019-05-23 Completed [facility] s[facility] of b) 00:00:00 [facility] (hep a/hep 2019-05-23 Completed [facility] s[facility] of b) 00:00:00 [facility] Twin[facility] (hep a/hep 2019-05-23 Completed [facility] s[facility] of b) 00:00:00 [facility] Twin[facility] (hep a/hep 2019-05-23 Completed [facility] sity of b) 00:00:00 [facility] Twin[facility] (hep a/hep 2019-05-23 Completed [facility] sity of b) 00:00:00 [facility] Twinrix (hep a/hep 2019-05-23 Completed [facility] sity of b) 00:00:00 [facility] Twin[facility] (hep a/hep 2019-05-23 Completed [facility] sity of b) 00:00:00 [facility] Twinrix (hep a/hep 2019-05-23 Completed [facility] sity of b) 00:00:00 [facility] Twin[facility] (hep a/hep 2019-05-23 Completed [facility] sity of b) 00:00:00 [facility] Twin[facility] (hep a/hep 2019-05-23 Completed [facility] s[facility] of b) 00:00:00 [facility] Twinrix (hep a/hep 2019-05-23 Completed [facility] s[facility] of b) 00:00:00 [facility] Twin[facility] (hep a/hep 2019-05-23 Completed [facility] s[facility] of b) 00:00:00 [facility] Twin[facility] (hep a/hep 2019-05-23 Completed [facility] of b) 00:00:00 [facility] (hep a/hep 2019-05-23 Completed [facility] of b) 00:00:00 [facility] Twinrix (hep a/hep 2019-05-23 Completed [facility] of b) 00:00:00 [facility] Twinrix (hep a/hep 2019-05-23 Completed [facility] of b) 00:00:00 [facility] Twinrix (hep a/hep 2019-05-23 Completed [facility] of b) 00:00:00 [facility] Twinrix (hep a/hep 2019-05-23 Completed [facility] of b) 00:00:00 [facility] Twinrix (hep a/hep 2019-05-23 Completed [facility] of b) 00:00:00 [facility] Twinrix (hep a/hep 2019-05-23 Completed [facility] of b) 00:00:00 [facility] Twinrix (hep a/hep 2019-05-23 Completed [facility] sity of b) 00:00:00 [facility] Twinrix (hep a/hep 2019-05-23 Completed [facility] s[facility] of b) 00:00:00 [facility] Twinrix (hep a/hep 2019-05-23 Completed [facility] of b) 00:00:00 [facility] Twinrix (hep a/hep 2019-05-23 Completed [facility] of b) 00:00:00 [facility] Twinrix (hep a/hep 2019-05-23 Completed [facility] of b) 00:00:00 [facility] Twinrix (hep a/hep 2019-05-23 Completed [facility] of b) 00:00:00 [facility] Twinrix (hep a/hep 2019-05-23 Completed [facility] of b) 00:00:00 [facility] Twinrix (hep a/hep 2019-05-23 Completed [facility] of b) 00:00:00 [facility] Twin[facility] (hep a/hep 2019-05-23 Completed [facility] of b) 00:00:00 [facility] Twin[facility] (hep a/hep 2019-05-23 Completed [facility] of b) 00:00:00 [facility] Twin[facility] (hep a/hep 2019-05-23 Completed [facility] of b) 00:00:00 [facility] Twin[facility] (hep a/hep 2019-05-23 Completed [facility] of b) 00:00:00 [facility] Twin[facility] (hep a/hep 2019-05-23 Completed [facility] of b) 00:00:00 [facility] Twinrix (hep a/hep 2019-05-23 Completed [facility] of b) 00:00:00 [facility] Twinrix (hep a/hep 2019-05-23 Completed [facility] of b) 00:00:00 [facility] Twinrix (hep a/hep 2019-05-23 Completed [facility] of b) 00:00:00 [facility] Twinrix (hep a/hep 2019-05-23 Completed [facility] of b) 00:00:00 [facility] Twinrix (hep a/hep 2019-05-23 Completed [facility] of b) 00:00:00 [facility] Twinrix (hep a/hep 2019-05-23 Completed [facility] of b) 00:00:00 [facility] Twinrix (hep a/hep 2019-05-23 Completed [facility] of b) 00:00:00 [facility] Twinrix (hep a/hep 2019-05-23 Completed [facility] of b) 00:00:00 [facility] Twinrix (hep a/hep 2019-05-23 Completed [facility] of b) 00:00:00 [facility] Twinrix (hep a/hep 2019-05-23 Completed [facility] of b) 00:00:00 [facility] Twinrix (hep a/hep 2019-05-23 Completed [facility] of b) 00:00:00 [facility] Twinrix (hep a/hep 2019-05-23 Completed [facility] s[facility] of b) 00:00:00 [facility] Twinrix (hep a/hep 2019-05-23 Completed [facility] of b) 00:00:00 [facility] Twinrix (hep a/hep 2019-05-23 Completed [facility] s[facility] of b) 00:00:00 [facility] Twinrix (hep a/hep 2019-05-23 Completed [facility] of b) 00:00:00 [facility] Twin[facility] (hep a/hep 2019-05-23 Completed [facility] s[facility] of b) 00:00:00 [facility] Twinrix (hep a/hep 2019-05-23 Completed [facility] s[facility] of b) 00:00:00 [facility] Twinrix (hep a/hep 2019-05-23 Completed [facility] s[facility] of b) 00:00:00 [facility] Twinrix (hep a/hep 2019-05-23 Completed [facility] sity of b) 00:00:00 [facility] Twinrix (hep a/hep 2019-05-23 Completed [facility] s[facility] of b) 00:00:00 [facility] Twinrix (hep a/hep 2019-05-23 Completed [facility] s[facility] of b) 00:00:00 [facility] Twinrix (hep a/hep 2019-05-23 Completed [facility] s[facility] of b) 00:00:00 [facility] Twinrix (hep a/hep 2019-05-23 Completed [facility] s[facility] of b) 00:00:00 [facility] Twinrix (hep a/hep 2019-05-23 Completed [facility] s[facility] of b) 00:00:00 [facility] Twin[facility] (hep a/hep 2019-05-23 Completed [facility] sity of b) 00:00:00 [facility] Twinrix (hep a/hep 2019-05-23 Completed [facility] sity of b) 00:00:00 [facility] Twinrix (hep a/hep 2019-05-23 Completed [facility] s[facility] of b) 00:00:00 [facility] Twinrix (hep a/hep 2019-05-23 Completed [facility] s[facility] of b) 00:00:00 [facility] Twinrix (hep a/hep 2019-05-23 Completed [facility] s[facility] of b) 00:00:00 [facility] Twinrix (hep a/hep 2019-05-23 Completed Univer sity of b) 00:00:00 [facility] Twinrix (hep a/hep 2019-05-23 Completed [facility] s[facility] of b) 00:00:00 [facility] Twinrix (hep a/hep 2019-05-23 Completed [facility] s[facility] of b) 00:00:00 [facility] Twinrix (hep a/hep 2019-05-23 Completed [facility] s[facility] of b) 00:00:00 [facility] Twinrix (hep a/hep 2019-05-23 Completed [facility] s[facility] of b) 00:00:00 [facility] Twinrix (hep a/hep 2019-05-23 Completed [facility] of b) 00:00:00 [facility] Twinrix (hep a/hep 2019-05-23 Completed [facility] of b) 00:00:00 [facility] Pneumococcal 13 2018-12-28 Completed [facility] of Conjugate, PCV13 00:00:00 [facility] (Prevnar 13) Branch Pneumococcal 13 2018-12-28 Completed [facility] Conjugate, PCV13 00:00:00 [facility] (Prevnar 13) [facility] Pneumococcal 13 2018-12-28 Completed [facility] of Conjugate, PCV13 00:00:00 [facility] dical (Prevnar 13) Branch Pneumococcal 13 2018-12-28 Completed [facility] Conjugate, PCV13 00:00:00 [facility] (Prevnar 13) [facility] Pneumococcal 13 2018-12-28 Completed [facility] Conjugate, PCV13 00:00:00 [facility] (Prevnar 13) [facility] Pneumococcal 13 2018-12-28 Completed [facility] Conjugate, PCV13 00:00:00 [facility] (Prevnar 13) [facility] Pneumococcal 13 2018-12-28 Completed [facility] Conjugate, PCV13 00:00:00 [facility] (Prevnar 13) [facility] Pneumococcal 13 2018-12-28 Completed [facility] Conjugate, PCV13 00:00:00 [facility] dical (Prevnar 13) Branch Pneumococcal 13 2018-12-28 Completed [facility] Conjugate, PCV13 00:00:00 [facility] (Prevnar 13) [facility] Pneumococcal 13 2018-12-28 Completed [facility] Conjugate, PCV13 00:00:00 [facility] (Prevnar 13) [facility] Pneumococcal 13 2018-12-28 Completed [facility] Conjugate, PCV13 00:00:00 [facility] (Prevnar 13) [facility] Pneumococcal 13 2018-12-28 Completed [facility] Conjugate, PCV13 00:00:00 [facility] (Prevnar 13) [facility] Pneumococcal 13 2018-12-28 Completed [facility] Conjugate, PCV13 00:00:00 [facility] (Prevnar 13) [facility] Pneumococcal 13 2018-12-28 Completed [facility] Conjugate, PCV13 00:00:00 [facility] (Prevnar 13) [facility] Pneumococcal 13 2018-12-28 Completed [facility] Conjugate, PCV13 00:00:00 [facility] (Prevnar 13) [facility] Pneumococcal 13 2018-12-28 Completed [facility] Conjugate, PCV13 00:00:00 [facility] (Prevnar 13) [facility] Pneumococcal 13 2018-12-28 Completed [facility] Conjugate, PCV13 00:00:00 [facility] (Prevnar 13) [facility] Pneumococcal 13 2018-12-28 Completed [facility] Conjugate, PCV13 00:00:00 [facility] (Prevnar 13) [facility] Pneumococcal 13 2018-12-28 Completed [facility] Conjugate, PCV13 00:00:00 [facility] (Prevnar 13) [facility] Pneumococcal 13 2018-12-28 Completed [facility] Conjugate, PCV13 00:00:00 [facility] (Prevnar 13) [facility] Pneumococcal 13 2018-12-28 Completed [facility] Conjugate, PCV13 00:00:00 [facility] (Prevnar 13) [facility] Pneumococcal 13 2018-12-28 Completed [facility] Conjugate, PCV13 00:00:00 [facility] (Prevnar 13) [facility] Pneumococcal 13 2018-12-28 Completed [facility] Conjugate, PCV13 00:00:00 [facility] (Prevnar 13) [facility] Pneumococcal 13 2018-12-28 Completed [facility] Conjugate, PCV13 00:00:00 [facility] (Prevnar 13) [facility] Pneumococcal 13 2018-12-28 Completed [facility] Conjugate, PCV13 00:00:00 [facility] (Prevnar 13) [facility] Pneumococcal 13 2018-12-28 Completed [facility] Conjugate, PCV13 00:00:00 [facility] (Prevnar 13) [facility] Pneumococcal 13 2018-12-28 Completed [facility] Conjugate, PCV13 00:00:00 [facility] (Prevnar 13) [facility] Pneumococcal 13 2018-12-28 Completed [facility] Conjugate, PCV13 00:00:00 [facility] (Prevnar 13) [facility] Pneumococcal 13 2018-12-28 Completed [facility] Conjugate, PCV13 00:00:00 [facility] (Prevnar 13) [facility] Pneumococcal 13 2018-12-28 Completed [facility] Conjugate, PCV13 00:00:00 [facility] (Prevnar 13) [facility] Pneumococcal 13 2018-12-28 Completed [facility] Conjugate, PCV13 00:00:00 [facility] (Prevnar 13) [facility] Pneumococcal 13 2018-12-28 Completed [facility] Conjugate, PCV13 00:00:00 [facility] (Prevnar 13) [facility] Pneumococcal 13 2018-12-28 Completed [facility] Conjugate, PCV13 00:00:00 [facility] (Prevnar 13) [facility] Pneumococcal 13 2018-12-28 Completed [facility] Conjugate, PCV13 00:00:00 [facility] (Prevnar 13) [facility] Pneumococcal 13 2018-12-28 Completed [facility] Conjugate, PCV13 00:00:00 [facility] (Prevnar 13) [facility] Pneumococcal 13 2018-12-28 Completed [facility] Conjugate, PCV13 00:00:00 [facility] (Prevnar 13) [facility] Pneumococcal 13 2018-12-28 Completed [facility] Conjugate, PCV13 00:00:00 [facility] (Prevnar 13) [facility] Pneumococcal 13 2018-12-28 Completed [facility] Conjugate, PCV13 00:00:00 [facility] (Prevnar 13) [facility] Pneumococcal 13 2018-12-28 Completed [facility] Conjugate, PCV13 00:00:00 [facility] (Prevnar 13) [facility] Pneumococcal 13 2018-12-28 Completed [facility] Conjugate, PCV13 00:00:00 [facility] (Prevnar 13) [facility] Pneumococcal 13 2018-12-28 Completed [facility] Conjugate, PCV13 00:00:00 [facility] (Prevnar 13) [facility] Pneumococcal 13 2018-12-28 Completed [facility] Conjugate, PCV13 00:00:00 [facility] (Prevnar 13) [facility] Pneumococcal 13 2018-12-28 Completed [facility] Conjugate, PCV13 00:00:00 [facility] (Prevnar 13) [facility] Pneumococcal 13 2018-12-28 Completed [facility] Conjugate, PCV13 00:00:00 [facility] (Prevnar 13) [facility] Pneumococcal 13 2018-12-28 Completed [facility] Conjugate, PCV13 00:00:00 [facility] (Prevnar 13) [facility] Pneumococcal 13 2018-12-28 Completed [facility] Conjugate, PCV13 00:00:00 [facility] (Prevnar 13) [facility] Pneumococcal 13 2018-12-28 Completed [facility] Conjugate, PCV13 00:00:00 [facility] (Prevnar 13) [facility] Pneumococcal 13 2018-12-28 Completed [facility] Conjugate, PCV13 00:00:00 [facility] (Prevnar 13) [facility] Pneumococcal 13 2018-12-28 Completed [facility] Conjugate, PCV13 00:00:00 [facility] (Prevnar 13) [facility] Pneumococcal 13 2018-12-28 Completed [facility] Conjugate, PCV13 00:00:00 [facility] (Prevnar 13) [facility] Pneumococcal 13 2018-12-28 Completed [facility] Conjugate, PCV13 00:00:00 [facility] (Prevnar 13) [facility] Pneumococcal 13 2018-12-28 Completed [facility] Conjugate, PCV13 00:00:00 [facility] (Prevnar 13) [facility] Pneumococcal 13 2018-12-28 Completed [facility] Conjugate, PCV13 00:00:00 [facility] (Prevnar 13) [facility] Pneumococcal 13 2018-12-28 Completed [facility] Conjugate, PCV13 00:00:00 [facility] (Prevnar 13) [facility] Pneumococcal 13 2018-12-28 Completed [facility] Conjugate, PCV13 00:00:00 [facility] (Prevnar 13) [facility] Pneumococcal 13 2018-12-28 Completed [facility] Conjugate, PCV13 00:00:00 [facility] (Prevnar 13) [facility] Pneumococcal 13 2018-12-28 Completed [facility] Conjugate, PCV13 00:00:00 [facility] (Prevnar 13) [facility] Pneumococcal 13 2018-12-28 Completed [facility] Conjugate, PCV13 00:00:00 [facility] (Prevnar 13) [facility] Pneumococcal 13 2018-12-28 Completed [facility] Conjugate, PCV13 00:00:00 [facility] (Prevnar 13) [facility] Pneumococcal 13 2018-12-28 Completed [facility] Conjugate, PCV13 00:00:00 [facility] (Prevnar 13) [facility] Pneumococcal 13 2018-12-28 Completed [facility] Conjugate, PCV13 00:00:00 [facility] (Prevnar 13) [facility] Pneumococcal 13 2018-12-28 Completed [facility] Conjugate, PCV13 00:00:00 [place] [facility] (Prevnar 13) Branch Pneumococcal 13 2018-12-28 Completed [facility] Conjugate, PCV13 00:00:00 [place] [facility] (Prevnar 13) Branch Pneumococcal 13 2018-12-28 Completed [facility] Conjugate, PCV13 00:00:00 [place] [facility] (Prevnar 13) Branch Pneumococcal 13 2018-12-28 Completed [facility] Conjugate, PCV13 00:00:00 [place] [facility] (Prevnar 13) Branch Pneumococcal 13 2018-12-28 Completed [facility] Conjugate, PCV13 00:00:00 [place] [facility] (Prevnar 13) Branch Pneumococcal 13 2018-12-28 Completed [facility] Conjugate, PCV13 00:00:00 [place] [facility] (Prevnar 13) Branch Pneumococcal 13 2018-12-28 Completed [facility] Conjugate, PCV13 00:00:00 [facility] (Prevnar 13) Branch Pneumococcal 13 2018-12-28 Completed [facility] Conjugate, PCV13 00:00:00 [place] [facility] (Prevnar 13) Branch Pneumococcal 13 2018-12-28 Completed [facility] Conjugate, PCV13 00:00:00 [place] [facility] (Prevnar 13) Branch Pneumococcal 13 2018-12-28 Completed [facility] Conjugate, PCV13 00:00:00 [place] [facility] (Prevnar 13) Branch Pneumococcal 13 2018-12-28 Completed [facility] Conjugate, PCV13 00:00:00 [place] [facility] (Prevnar 13) Branch Pneumococcal 13 2018-12-28 Completed [facility] Conjugate, PCV13 00:00:00 [place] [facility] (Prevnar 13) Branch Pneumococcal 13 2018-12-28 Completed [facility] Conjugate, PCV13 00:00:00 [place] [facility] (Prevnar 13) [facility] Influenza Virus 2018-11-25 Completed [facility] Vaccine (3+ yrs) 00:00:00 [facility]ical Branch Influenza High Dose 2018-11-25 Completed [facility] of 00:00:00 [facility] [place] Influenza Virus 2018-11-25 Completed [facility] Vaccine (3+ yrs) 00:00:00 [facility] dicfl Branch Influenza High Dose 2018-11-25 Completed [facility] 00:00:00 [facility] [place] Influenza Virus 2018-11-25 Completed [facility] Vaccine (3+ yrs) 00:00:00 [facility]fl Branch Influenza High Dose 2018-11-25 Completed [facility] 00:00:00 [facility] [place] Influenza Virus 2018-11-25 Completed [facility] Vaccine (3+ yrs) 00:00:00 [facility] Branch Influenza High Dose 2018-11-25 Completed [facility] 00:00:00 [facility] [place] Influenza Virus 2018-11-25 Completed [facility] Vaccine (3+ yrs) 00:00:00 [facility] Influenza High Dose 2018-11-25 Completed [facility] 00:00:00 [facility] [place] Influenza Virus 2018-11-25 Completed [facility] Vaccine (3+ yrs) 00:00:00 [facility] Branch Influenza High Dose 2018-11-25 Completed [facility] 00:00:00 [facility] [place] Influenza Virus 2018-11-25 Completed [facility] Vaccine (3+ yrs) 00:00:00 [facility] Branch Influenza High Dose 2018-11-25 Completed [facility] of 00:00:00 [facility] [place] Influenza Virus 2018-11-25 Completed [facility] Vaccine (3+ yrs) 00:00:00 [facility] Influenza High Dose 2018-11-25 Completed [facility] 00:00:00 [facility] [place] Influenza Virus 2018-11-25 Completed [facility] Vaccine (3+ yrs) 00:00:00 [facility] dicfl Branch Influenza High Dose 2018-11-25 Completed [facility] of 00:00:00 [facility] [place] Influenza Virus 2018-11-25 Completed [facility] Vaccine (3+ yrs) 00:00:00 [facility] Influenza High Dose 2018-11-25 Completed [facility] of 00:00:00 [facility] [place] Influenza Virus 2018-11-25 Completed [facility] Vaccine (3+ yrs) 00:00:00 [facility] Influenza High Dose 2018-11-25 Completed [facility] rs[facility] of 00:00:00 [facility] [place] Influenza Virus 2018-11-25 Completed [facility] Vaccine (3+ yrs) 00:00:00 [facility] Influenza High Dose 2018-11-25 Completed [facility] of 00:00:00 [facility] [place] Influenza Virus 2018-11-25 Completed [facility] Vaccine (3+ yrs) 00:00:00 [facility] Influenza High Dose 2018-11-25 Completed [facility] of 00:00:00 [facility] [place] Influenza Virus 2018-11-25 Completed [facility] Vaccine (3+ yrs) 00:00:00 [facility] Influenza High Dose 2018-11-25 Completed [facility] of 00:00:00 [facility] [place] Influenza Virus 2018-11-25 Completed [facility] Vaccine (3+ yrs) 00:00:00 [facility] Influenza High Dose 2018-11-25 Completed [facility] of 00:00:00 [facility] [place] Influenza Virus 2018-11-25 Completed [facility] Vaccine (3+ yrs) 00:00:00 [facility] Influenza High Dose 2018-11-25 Completed [facility] of 00:00:00 [facility] [place] Influenza Virus 2018-11-25 Completed [facility] Vaccine (3+ yrs) 00:00:00 [facility] Influenza High Dose 2018-11-25 Completed [facility] of 00:00:00 [facility] [place] Influenza Virus 2018-11-25 Completed [facility] Vaccine (3+ yrs) 00:00:00 [facility] Influenza High Dose 2018-11-25 Completed [facility] of 00:00:00 [facility] [place] Influenza Virus 2018-11-25 Completed [facility] Vaccine (3+ yrs) 00:00:00 [facility] Influenza High Dose 2018-11-25 Completed [facility] of 00:00:00 [facility] [place] Influenza Virus 2018-11-25 Completed [facility] Vaccine (3+ yrs) 00:00:00 [facility] Influenza High Dose 2018-11-25 Completed [facility] of 00:00:00 [facility] [place] Influenza Virus 2018-11-25 Completed [facility] Vaccine (3+ yrs) 00:00:00 [facility] Influenza High Dose 2018-11-25 Completed [facility] of 00:00:00 [facility] [place] Influenza Virus 2018-11-25 Completed [facility] Vaccine (3+ yrs) 00:00:00 [facility] Influenza High Dose 2018-11-25 Completed [facility] of 00:00:00 [facility] [place] Influenza Virus 2018-11-25 Completed [facility] Vaccine (3+ yrs) 00:00:00 [facility] Influenza High Dose 2018-11-25 Completed [facility] of 00:00:00 [facility] [place] Influenza Virus 2018-11-25 Completed [facility] Vaccine (3+ yrs) 00:00:00 [facility] Influenza High Dose 2018-11-25 Completed [facility] of 00:00:00 [facility] [place] Influenza Virus 2018-11-25 Completed [facility] Vaccine (3+ yrs) 00:00:00 [facility] Influenza High Dose 2018-11-25 Completed [facility] of 00:00:00 [facility] [place] Influenza Virus 2018-11-25 Completed [facility] Vaccine (3+ yrs) 00:00:00 [facility] Influenza High Dose 2018-11-25 Completed [facility] of 00:00:00 [facility] [place] Influenza Virus 2018-11-25 Completed [facility] Vaccine (3+ yrs) 00:00:00 [facility] Influenza High Dose 2018-11-25 Completed [facility] of 00:00:00 [facility] [place] Influenza Virus 2018-11-25 Completed [facility] Vaccine (3+ yrs) 00:00:00 [facility] Influenza High Dose 2018-11-25 Completed [facility] of 00:00:00 [facility] [place] Influenza Virus 2018-11-25 Completed [facility] Vaccine (3+ yrs) 00:00:00 [facility] Influenza High Dose 2018-11-25 Completed [facility] of 00:00:00 [facility] [place] Influenza Virus 2018-11-25 Completed [facility] Vaccine (3+ yrs) 00:00:00 [facility] Influenza High Dose 2018-11-25 Completed [facility] of 00:00:00 [facility] [place] Influenza Virus 2018-11-25 Completed [facility] Vaccine (3+ yrs) 00:00:00 [facility] Influenza High Dose 2018-11-25 Completed [facility] of 00:00:00 [facility] [place] Influenza Virus 2018-11-25 Completed [facility] Vaccine (3+ yrs) 00:00:00 [facility] Influenza High Dose 2018-11-25 Completed [facility] of 00:00:00 [facility] [place] Influenza Virus 2018-11-25 Completed [facility] Vaccine (3+ yrs) 00:00:00 [facility] Influenza High Dose 2018-11-25 Completed [facility] of 00:00:00 [facility] [place] Influenza Virus 2018-11-25 Completed [facility] Vaccine (3+ yrs) 00:00:00 [facility] Influenza High Dose 2018-11-25 Completed [facility] of 00:00:00 [facility] [place] Influenza Virus 2018-11-25 Completed [facility] Vaccine (3+ yrs) 00:00:00 [facility] Influenza High Dose 2018-11-25 Completed [facility] of 00:00:00 [facility] [place] Influenza Virus 2018-11-25 Completed [facility] Vaccine (3+ yrs) 00:00:00 [facility] Influenza High Dose 2018-11-25 Completed [facility] of 00:00:00 [facility] [place] Influenza Virus 2018-11-25 Completed [facility] Vaccine (3+ yrs) 00:00:00 [facility] Influenza High Dose 2018-11-25 Completed [facility] of 00:00:00 [facility] [place] Influenza Virus 2018-11-25 Completed [facility] Vaccine (3+ yrs) 00:00:00 [facility] Influenza High Dose 2018-11-25 Completed [facility] of 00:00:00 [facility] [place] Influenza Virus 2018-11-25 Completed [facility] Vaccine (3+ yrs) 00:00:00 [facility] Influenza High Dose 2018-11-25 Completed [facility] of 00:00:00 [facility] [place] Influenza Virus 2018-11-25 Completed [facility] Vaccine (3+ yrs) 00:00:00 [facility] Influenza High Dose 2018-11-25 Completed [facility] of 00:00:00 [facility] [place] Influenza Virus 2018-11-25 Completed [facility] Vaccine (3+ yrs) 00:00:00 [facility] Influenza High Dose 2018-11-25 Completed [facility] of 00:00:00 [facility] [place] Influenza Virus 2018-11-25 Completed [facility] Vaccine (3+ yrs) 00:00:00 [facility] Influenza High Dose 2018-11-25 Completed [facility] of 00:00:00 [facility] [place] Influenza Virus 2018-11-25 Completed [facility] Vaccine (3+ yrs) 00:00:00 [facility] Influenza High Dose 2018-11-25 Completed [facility] of 00:00:00 [facility] [place] Influenza Virus 2018-11-25 Completed [facility] Vaccine (3+ yrs) 00:00:00 [facility] Influenza High Dose 2018-11-25 Completed [facility] of 00:00:00 [facility] [place] Influenza Virus 2018-11-25 Completed [facility] Vaccine (3+ yrs) 00:00:00 [facility] Influenza High Dose 2018-11-25 Completed [facility] of 00:00:00 [facility] [place] Influenza Virus 2018-11-25 Completed [facility] Vaccine (3+ yrs) 00:00:00 [facility] Influenza High Dose 2018-11-25 Completed [facility] 00:00:00 [facility] [place] Influenza Virus 2018-11-25 Completed [facility] Vaccine (3+ yrs) 00:00:00 [facility] Influenza High Dose 2018-11-25 Completed [facility] of 00:00:00 [facility] [place] Influenza Virus 2018-11-25 Completed [facility] Vaccine (3+ yrs) 00:00:00 [facility] Influenza High Dose 2018-11-25 Completed [facility] 00:00:00 [facility] [place] Influenza Virus 2018-11-25 Completed [facility] Vaccine (3+ yrs) 00:00:00 [facility] Influenza High Dose 2018-11-25 Completed [facility] 00:00:00 [facility] [place] Influenza Virus 2018-11-25 Completed [facility] Vaccine (3+ yrs) 00:00:00 [facility] Influenza High Dose 2018-11-25 Completed [facility] 00:00:00 [facility] [place] Influenza Virus 2018-11-25 Completed [facility] Vaccine (3+ yrs) 00:00:00 [facility] Influenza High Dose 2018-11-25 Completed [facility] 00:00:00 [facility] [place] Influenza Virus 2018-11-25 Completed [facility] Vaccine (3+ yrs) 00:00:00 [facility] Influenza High Dose 2018-11-25 Completed [facility] 00:00:00 [facility] [place] Influenza Virus 2018-11-25 Completed [facility] Vaccine (3+ yrs) 00:00:00 [facility] Influenza High Dose 2018-11-25 Completed [facility] 00:00:00 [facility] [place] Influenza Virus 2018-11-25 Completed [facility] Vaccine (3+ yrs) 00:00:00 [facility] Influenza High Dose 2018-11-25 Completed [facility] 00:00:00 [facility] [place] Influenza Virus 2018-11-25 Completed [facility] Vaccine (3+ yrs) 00:00:00 [facility] Influenza High Dose 2018-11-25 Completed [facility] 00:00:00 [facility] [place] Influenza Virus 2018-11-25 Completed [facility] Vaccine (3+ yrs) 00:00:00 [facility] Influenza High Dose 2018-11-25 Completed [facility] 00:00:00 [facility] [place] Influenza Virus 2018-11-25 Completed [facility] Vaccine (3+ yrs) 00:00:00 [facility] Influenza High Dose 2018-11-25 Completed [facility] 00:00:00 [facility] [place] Influenza Virus 2018-11-25 Completed [facility] Vaccine (3+ yrs) 00:00:00 [facility] Influenza High Dose 2018-11-25 Completed [facility] 00:00:00 [facility] [place] Influenza Virus 2018-11-25 Completed [facility] Vaccine (3+ yrs) 00:00:00 [facility] Influenza High Dose 2018-11-25 Completed [facility] 00:00:00 [facility] [place] Influenza Virus 2018-11-25 Completed [facility] Vaccine (3+ yrs) 00:00:00 [facility] Influenza High Dose 2018-11-25 Completed [facility] 00:00:00 [facility] [place] Influenza Virus 2018-11-25 Completed [facility] Vaccine (3+ yrs) 00:00:00 [facility] Influenza High Dose 2018-11-25 Completed [facility] 00:00:00 [facility] [place] Influenza Virus 2018-11-25 Completed [facility] Vaccine (3+ yrs) 00:00:00 [facility] Influenza High Dose 2018-11-25 Completed [facility] 00:00:00 [facility] [place] Influenza Virus 2018-11-25 Completed [facility] Vaccine (3+ yrs) 00:00:00 [facility] Influenza High Dose 2018-11-25 Completed [facility] 00:00:00 [facility] [place] Influenza Virus 2018-11-25 Completed [facility] Vaccine (3+ yrs) 00:00:00 [facility] Influenza High Dose 2018-11-25 Completed [facility] 00:00:00 [facility] [place] Influenza Virus 2018-11-25 Completed [facility] Vaccine (3+ yrs) 00:00:00 [facility] Influenza High Dose 2018-11-25 Completed [facility] of 00:00:00 [facility] [place] Influenza Virus 2018-11-25 Completed [facility] Vaccine (3+ yrs) 00:00:00 [facility] Influenza High Dose 2018-11-25 Completed [facility] 00:00:00 [facility] [place] Influenza Virus 2018-11-25 Completed [facility] Vaccine (3+ yrs) 00:00:00 [facility] Influenza High Dose 2018-11-25 Completed [facility] of 00:00:00 [facility] [place] Influenza Virus 2018-11-25 Completed [facility] Vaccine (3+ yrs) 00:00:00 [facility] Influenza High Dose 2018-11-25 Completed [facility] of 00:00:00 [facility] [place] Influenza Virus 2018-11-25 Completed [facility] Vaccine (3+ yrs) 00:00:00 [facility] Influenza High Dose 2018-11-25 Completed [facility] 00:00:00 [facility] [place] Influenza Virus 2018-11-25 Completed [facility] Vaccine (3+ yrs) 00:00:00 [facility] Influenza High Dose 2018-11-25 Completed [facility] of 00:00:00 [facility] [place] Influenza Virus 2018-11-25 Completed [facility] Vaccine (3+ yrs) 00:00:00 [facility] Influenza High Dose 2018-11-25 Completed [facility] of 00:00:00 [facility] [place] Influenza Virus 2018-11-25 Completed [facility] Vaccine (3+ yrs) 00:00:00 [facility] Influenza High Dose 2018-11-25 Completed [facility] 00:00:00 [facility] [place] Influenza Virus 2018-11-25 Completed [facility] Vaccine (3+ yrs) 00:00:00 [facility] Influenza High Dose 2018-11-25 Completed [facility] of 00:00:00 [facility] [place] Influenza Virus 2018-11-25 Completed [facility] Vaccine (3+ yrs) 00:00:00 [facility] Influenza High Dose 2018-11-25 Completed [facility] 00:00:00 [facility] [place] Influenza Virus 2018-11-22 Completed [facility] Vaccine (3+ yrs) 00:00:00 [facility] Influenza Virus 2018-11-22 Completed [facility] Vaccine (3+ yrs) 00:00:00 [facility] Influenza Virus 2018-11-22 Completed [facility] Vaccine (3+ yrs) 00:00:00 [facility] Influenza Virus 2018-11-22 Completed [facility] Vaccine (3+ yrs) 00:00:00 [facility] Influenza Virus 2018-11-22 Completed [facility] Vaccine (3+ yrs) 00:00:00 [facility] Influenza Virus 2018-11-22 Completed [facility] Vaccine (3+ yrs) 00:00:00 [facility] Influenza Virus 2018-11-22 Completed [facility] Vaccine (3+ yrs) 00:00:00 [facility] Influenza Virus 2018-11-22 Completed [facility] Vaccine (3+ yrs) 00:00:00 [facility] Influenza Virus 2018-11-22 Completed [facility] Vaccine (3+ yrs) 00:00:00 [facility] Influenza Virus 2018-11-22 Completed [facility] Vaccine (3+ yrs) 00:00:00 [facility] Influenza Virus 2018-11-22 Completed [facility] Vaccine (3+ yrs) 00:00:00 [facility] Influenza Virus 2018-11-22 Completed [facility] Vaccine (3+ yrs) 00:00:00 [facility] Influenza Virus 2018-11-22 Completed [facility] Vaccine (3+ yrs) 00:00:00 [facility] Influenza Virus 2018-11-22 Completed [facility] Vaccine (3+ yrs) 00:00:00 [facility] Influenza Virus 2018-11-22 Completed [facility] Vaccine (3+ yrs) 00:00:00 [facility] Influenza Virus 2018-11-22 Completed [facility] Vaccine (3+ yrs) 00:00:00 [facility] Influenza Virus 2018-11-22 Completed [facility] Vaccine (3+ yrs) 00:00:00 [facility] Influenza Virus 2018-11-22 Completed [facility] Vaccine (3+ yrs) 00:00:00 [facility] Influenza Virus 2018-11-22 Completed [facility] Vaccine (3+ yrs) 00:00:00 [facility] Influenza Virus 2018-11-22 Completed [facility] Vaccine (3+ yrs) 00:00:00 [facility] Influenza Virus 2018-11-22 Completed [facility] Vaccine (3+ yrs) 00:00:00 [facility] Influenza Virus 2018-11-22 Completed [facility] Vaccine (3+ yrs) 00:00:00 [facility] Influenza Virus 2018-11-22 Completed [facility] Vaccine (3+ yrs) 00:00:00 [facility] Influenza Virus 2018-11-22 Completed [facility] Vaccine (3+ yrs) 00:00:00 [facility] Influenza Virus 2018-11-22 Completed [facility] Vaccine (3+ yrs) 00:00:00 [facility] Influenza Virus 2018-11-22 Completed [facility] Vaccine (3+ yrs) 00:00:00 [facility] Influenza Virus 2018-11-22 Completed [facility] Vaccine (3+ yrs) 00:00:00 [facility] Influenza Virus 2018-11-22 Completed [facility] Vaccine (3+ yrs) 00:00:00 [facility] Influenza Virus 2018-11-22 Completed [facility] Vaccine (3+ yrs) 00:00:00 [facility] Influenza Virus 2018-11-22 Completed [facility] Vaccine (3+ yrs) 00:00:00 [facility] Influenza Virus 2018-11-22 Completed [facility] Vaccine (3+ yrs) 00:00:00 [facility] Influenza Virus 2018-11-22 Completed [facility] Vaccine (3+ yrs) 00:00:00 [facility] Influenza Virus 2018-11-22 Completed [facility] Vaccine (3+ yrs) 00:00:00 [facility] Influenza Virus 2018-11-22 Completed [facility] Vaccine (3+ yrs) 00:00:00 [facility] Influenza Virus 2018-11-22 Completed [facility] Vaccine (3+ yrs) 00:00:00 [facility] Influenza Virus 2018-11-22 Completed [facility] Vaccine (3+ yrs) 00:00:00 [facility] Influenza Virus 2018-11-22 Completed [facility] Vaccine (3+ yrs) 00:00:00 [facility] Influenza Virus 2018-11-22 Completed [facility] Vaccine (3+ yrs) 00:00:00 [facility] Influenza Virus 2018-11-22 Completed [facility] Vaccine (3+ yrs) 00:00:00 [facility] Influenza Virus 2018-11-22 Completed [facility] Vaccine (3+ yrs) 00:00:00 [facility] Influenza Virus 2018-11-22 Completed [facility] Vaccine (3+ yrs) 00:00:00 [facility] Influenza Virus 2018-11-22 Completed [facility] Vaccine (3+ yrs) 00:00:00 [facility] Influenza Virus 2018-11-22 Completed [facility] Vaccine (3+ yrs) 00:00:00 [facility] Influenza Virus 2018-11-22 Completed [facility] Vaccine (3+ yrs) 00:00:00 [facility] Influenza Virus 2018-11-22 Completed [facility] Vaccine (3+ yrs) 00:00:00 [facility] Influenza Virus 2018-11-22 Completed [facility] Vaccine (3+ yrs) 00:00:00 [facility] Influenza Virus 2018-11-22 Completed [facility] Vaccine (3+ yrs) 00:00:00 [facility] Influenza Virus 2018-11-22 Completed [facility] Vaccine (3+ yrs) 00:00:00 [facility] Influenza Virus 2018-11-22 Completed [facility] Vaccine (3+ yrs) 00:00:00 [facility] Influenza Virus 2018-11-22 Completed [facility] Vaccine (3+ yrs) 00:00:00 [facility] Influenza Virus 2018-11-22 Completed [facility] Vaccine (3+ yrs) 00:00:00 [facility] Influenza Virus 2018-11-22 Completed [facility] Vaccine (3+ yrs) 00:00:00 [facility] Influenza Virus 2018-11-22 Completed [facility] Vaccine (3+ yrs) 00:00:00 [facility] Influenza Virus 2018-11-22 Completed [facility] Vaccine (3+ yrs) 00:00:00 [facility] Influenza Virus 2018-11-22 Completed [facility] Vaccine (3+ yrs) 00:00:00 [facility] Influenza Virus 2018-11-22 Completed [facility] Vaccine (3+ yrs) 00:00:00 [facility] Influenza Virus 2018-11-22 Completed [facility] Vaccine (3+ yrs) 00:00:00 [facility] Influenza Virus 2018-11-22 Completed [facility] Vaccine (3+ yrs) 00:00:00 [facility] Influenza Virus 2018-11-22 Completed [facility] Vaccine (3+ yrs) 00:00:00 [facility] Influenza Virus 2018-11-22 Completed [facility] Vaccine (3+ yrs) 00:00:00 [facility] Influenza Virus 2018-11-22 Completed [facility] Vaccine (3+ yrs) 00:00:00 [facility] Influenza Virus 2018-11-22 Completed [facility] Vaccine (3+ yrs) 00:00:00 [facility] Influenza Virus 2018-11-22 Completed [facility] Vaccine (3+ yrs) 00:00:00 [facility] Influenza Virus 2018-11-22 Completed [facility] Vaccine (3+ yrs) 00:00:00 [facility] Influenza Virus 2018-11-22 Completed [facility] Vaccine (3+ yrs) 00:00:00 [facility] Influenza Virus 2018-11-22 Completed [facility] Vaccine (3+ yrs) 00:00:00 [facility] Influenza Virus 2018-11-22 Completed [facility] Vaccine (3+ yrs) 00:00:00 [facility] Influenza Virus 2018-11-22 Completed [facility] Vaccine (3+ yrs) 00:00:00 [facility] Influenza Virus 2018-11-22 Completed [facility] Vaccine (3+ yrs) 00:00:00 [facility] Influenza Virus 2018-11-22 Completed [facility] Vaccine (3+ yrs) 00:00:00 [facility] Influenza Virus 2018-11-22 Completed [facility] Vaccine (3+ yrs) 00:00:00 [facility] Influenza Virus 2018-11-22 Completed [facility] Vaccine (3+ yrs) 00:00:00 [facility] Influenza Virus 2018-11-22 Completed [facility] Vaccine (3+ yrs) 00:00:00 [facility] Influenza Virus 2018-11-22 Completed [facility] Vaccine (3+ yrs) 00:00:00 [facility] Branch Twinrix (hep a/hep 2018-05-23 Completed Univer sity of b) 00:00:00 [facility] Pneumococcal 13 2018-05-23 Completed [facility]it [facility] of Conjugate, PCV13 00:00:00 [facility] (Prevnar 13) Branch Twinrix (hep a/hep 2018-05-23 Completed Univer sity of b) 00:00:00 [facility] Pneumococcal 13 2018-05-23 Completed [facility] of Conjugate, PCV13 00:00:00 [facility] dicfl (Prevnar 13) Branch Twinrix (hep a/hep 2018-05-23 Completed Univer sity of b) 00:00:00 [facility] Pneumococcal 13 2018-05-23 Completed [facility] of Conjugate, PCV13 00:00:00 [facility] dicfl (Prevnar 13) Branch Twinrix (hep a/hep 2018-05-23 Completed [facility] of b) 00:00:00 [facility] Pneumococcal 13 2018-05-23 Completed [facility] Conjugate, PCV13 00:00:00 [place] [facility] (Prevnar 13) Branch Twinrix (hep a/hep 2018-05-23 Completed [facility] of b) 00:00:00 [facility] Pneumococcal 13 2018-05-23 Completed [facility] Conjugate, PCV13 00:00:00 [place] [facility] (Prevnar 13) Branch Twinrix (hep a/hep 2018-05-23 Completed [facility]iver [facility] of b) 00:00:00 [facility] Pneumococcal 13 2018-05-23 Completed [facility] of Conjugate, PCV13 00:00:00 [place] [facility] (Prevnar 13) Branch Twinrix (hep a/hep 2018-05-23 Completed [facility] of b) 00:00:00 [facility] Pneumococcal 13 2018-05-23 Completed [facility] of Conjugate, PCV13 00:00:00 [place] [facility] (Prevnar 13) Branch Twinrix (hep a/hep 2018-05-23 Completed [facility] of b) 00:00:00 [facility] Pneumococcal 13 2018-05-23 Completed [facility] of Conjugate, PCV13 00:00:00 [place] [facility] (Prevnar 13) Branch Twinrix (hep a/hep 2018-05-23 Completed [facility] of b) 00:00:00 [facility] Pneumococcal 13 2018-05-23 Completed [facility] of Conjugate, PCV13 00:00:00 [place] [facility] (Prevnar 13) Branch Twinrix (hep a/hep 2018-05-23 Completed [facility] of b) 00:00:00 [facility] Pneumococcal 13 2018-05-23 Completed [facility] of Conjugate, PCV13 00:00:00 [place] [facility] (Prevnar 13) Branch Twinrix (hep a/hep 2018-05-23 Completed [facility] of b) 00:00:00 [facility] Pneumococcal 13 2018-05-23 Completed [facility] of Conjugate, PCV13 00:00:00 [place] [facility] (Prevnar 13) Branch Twinrix (hep a/hep 2018-05-23 Completed [facility] of b) 00:00:00 [facility] Pneumococcal 13 2018-05-23 Completed [facility] of Conjugate, PCV13 00:00:00 [place] [facility] (Prevnar 13) Branch Twinrix (hep a/hep 2018-05-23 Completed [facility]iver [facility] of b) 00:00:00 [facility] Pneumococcal 13 2018-05-23 Completed [facility] of Conjugate, PCV13 00:00:00 [place] [facility] (Prevnar 13) Branch Twinrix (hep a/hep 2018-05-23 Completed [facility] of b) 00:00:00 [facility] Pneumococcal 13 2018-05-23 Completed [facility] of Conjugate, PCV13 00:00:00 [place] [facility] (Prevnar 13) Branch Twinrix (hep a/hep 2018-05-23 Completed [facility] of b) 00:00:00 [facility] Pneumococcal 13 2018-05-23 Completed [facility] of Conjugate, PCV13 00:00:00 [facility] dical (Prevnar 13) Branch Twinrix (hep a/hep 2018-05-23 Completed Univer sity of b) 00:00:00 [facility] Pneumococcal 13 2018-05-23 Completed [facility] of Conjugate, PCV13 00:00:00 [facility] dical (Prevnar 13) Branch Twinrix (hep a/hep 2018-05-23 Completed Univer sity of b) 00:00:00 [facility] Pneumococcal 13 2018-05-23 Completed [facility] of Conjugate, PCV13 00:00:00 [facility] dical (Prevnar 13) Branch Twinrix (hep a/hep 2018-05-23 Completed Univer sity of b) 00:00:00 [facility] Pneumococcal 13 2018-05-23 Completed [facility] of Conjugate, PCV13 00:00:00 [place] [facility] (Prevnar 13) Branch Twinrix (hep a/hep 2018-05-23 Completed [facility]ity of b) 00:00:00 [facility] Pneumococcal 13 2018-05-23 Completed [facility] of Conjugate, PCV13 00:00:00 [place] [facility] (Prevnar 13) Branch Twinrix (hep a/hep 2018-05-23 Completed [facility]iver sity of b) 00:00:00 [facility] Pneumococcal 13 2018-05-23 Completed [facility] of Conjugate, PCV13 00:00:00 [place] [facility] (Prevnar 13) Branch Twinrix (hep a/hep 2018-05-23 Completed [facility] of b) 00:00:00 [facility] Pneumococcal 13 2018-05-23 Completed [facility] of Conjugate, PCV13 00:00:00 [place] [facility] (Prevnar 13) Branch Twinrix (hep a/hep 2018-05-23 Completed [facility] of b) 00:00:00 [facility] Pneumococcal 13 2018-05-23 Completed [facility] of Conjugate, PCV13 00:00:00 [place] [facility] (Prevnar 13) Branch Twinrix (hep a/hep 2018-05-23 Completed [facility] of b) 00:00:00 [facility] Pneumococcal 13 2018-05-23 Completed [facility] of Conjugate, PCV13 00:00:00 [place] [facility] (Prevnar 13) Branch Twinrix (hep a/hep 2018-05-23 Completed [facility]iver [facility]ity of b) 00:00:00 [facility] Pneumococcal 13 2018-05-23 Completed [facility] of Conjugate, PCV13 00:00:00 [place] [facility] (Prevnar 13) Branch Twinrix (hep a/hep 2018-05-23 Completed [facility]iver [facility]ity of b) 00:00:00 [facility] Pneumococcal 13 2018-05-23 Completed [facility] of Conjugate, PCV13 00:00:00 [place] [facility] (Prevnar 13) Branch Twinrix (hep a/hep 2018-05-23 Completed [facility]iver [facility] of b) 00:00:00 [facility] Pneumococcal 13 2018-05-23 Completed [facility] of Conjugate, PCV13 00:00:00 [place] [facility] (Prevnar 13) Branch Twinrix (hep a/hep 2018-05-23 Completed [facility]iver sity of b) 00:00:00 [facility] Pneumococcal 13 2018-05-23 Completed [facility] of Conjugate, PCV13 00:00:00 [place] [facility] (Prevnar 13) Branch Twinrix (hep a/hep 2018-05-23 Completed [facility]iver [facility]ity of b) 00:00:00 [facility] Pneumococcal 13 2018-05-23 Completed [facility] of Conjugate, PCV13 00:00:00 [place] [facility] (Prevnar 13) Branch Twinrix (hep a/hep 2018-05-23 Completed [facility]iver [facility]ity of b) 00:00:00 [facility] Pneumococcal 13 2018-05-23 Completed [facility] of Conjugate, PCV13 00:00:00 [place] [facility] (Prevnar 13) Branch Twinrix (hep a/hep 2018-05-23 Completed [facility]ity of b) 00:00:00 [facility] Pneumococcal 13 2018-05-23 Completed [facility] of Conjugate, PCV13 00:00:00 [place] [facility] (Prevnar 13) Branch Twinrix (hep a/hep 2018-05-23 Completed Univer [facility]ity of b) 00:00:00 [facility] Pneumococcal 13 2018-05-23 Completed [facility] of Conjugate, PCV13 00:00:00 [place] [facility] (Prevnar 13) Branch Twinrix (hep a/hep 2018-05-23 Completed [facility]iver [facility]ity of b) 00:00:00 [facility] Pneumococcal 13 2018-05-23 Completed [facility] of Conjugate, PCV13 00:00:00 [place] [facility] (Prevnar 13) Branch Twinrix (hep a/hep 2018-05-23 Completed Univer [facility]ity of b) 00:00:00 [facility] Pneumococcal 13 2018-05-23 Completed [facility] of Conjugate, PCV13 00:00:00 [place] [facility] (Prevnar 13) Branch Twinrix (hep a/hep 2018-05-23 Completed Univer sity of b) 00:00:00 [facility] Pneumococcal 13 2018-05-23 Completed [facility] of Conjugate, PCV13 00:00:00 [place] [facility] (Prevnar 13) Branch Twinrix (hep a/hep 2018-05-23 Completed Univer sity of b) 00:00:00 [facility] Pneumococcal 13 2018-05-23 Completed [facility] of Conjugate, PCV13 00:00:00 [place] [facility] (Prevnar 13) Branch Twinrix (hep a/hep 2018-05-23 Completed [facility]iver [facility]ity of b) 00:00:00 [facility] Pneumococcal 13 2018-05-23 Completed [facility] of Conjugate, PCV13 00:00:00 [place] [facility] (Prevnar 13) Branch Twinrix (hep a/hep 2018-05-23 Completed Univer sity of b) 00:00:00 [facility] Pneumococcal 13 2018-05-23 Completed [facility] of Conjugate, PCV13 00:00:00 [place] [facility] (Prevnar 13) Branch Twinrix (hep a/hep 2018-05-23 Completed Univer sity of b) 00:00:00 [facility] Pneumococcal 13 2018-05-23 Completed [facility] of Conjugate, PCV13 00:00:00 [place] [facility] (Prevnar 13) Branch Twinrix (hep a/hep 2018-05-23 Completed Univer sity of b) 00:00:00 [facility] Pneumococcal 13 2018-05-23 Completed [facility] of Conjugate, PCV13 00:00:00 [place] [facility] (Prevnar 13) Branch Twinrix (hep a/hep 2018-05-23 Completed Univer sity of b) 00:00:00 [facility] Pneumococcal 13 2018-05-23 Completed [facility] y of Conjugate, PCV13 00:00:00 [facility] dical (Prevnar 13) Branch Twinrix (hep a/hep 2018-05-23 Completed Univer sity of b) 00:00:00 [facility] Pneumococcal 13 2018-05-23 Completed [facility] y of Conjugate, PCV13 00:00:00 [facility] dical (Prevnar 13) Branch Twinrix (hep a/hep 2018-05-23 Completed Univer sity of b) 00:00:00 [facility] Pneumococcal 13 2018-05-23 Completed [facility]it y of Conjugate, PCV13 00:00:00 [facility] dical (Prevnar 13) Branch Twinrix (hep a/hep 2018-05-23 Completed Univer sity of b) 00:00:00 [facility] Pneumococcal 13 2018-05-23 Completed [facility] y of Conjugate, PCV13 00:00:00 [place] [facility] (Prevnar 13) Branch Twinrix (hep a/hep 2018-05-23 Completed Univer sity of b) 00:00:00 [facility] Pneumococcal 13 2018-05-23 Completed [facility] y of Conjugate, PCV13 00:00:00 [place] [facility] (Prevnar 13) Branch Twinrix (hep a/hep 2018-05-23 Completed Univer sity of b) 00:00:00 [facility] Pneumococcal 13 2018-05-23 Completed [facility] of Conjugate, PCV13 00:00:00 [place] [facility] (Prevnar 13) Branch Twinrix (hep a/hep 2018-05-23 Completed Univer sity of b) 00:00:00 [facility] Pneumococcal 13 2018-05-23 Completed [facility] y of Conjugate, PCV13 00:00:00 [place] [facility] (Prevnar 13) Branch Twinrix (hep a/hep 2018-05-23 Completed Univer [facility]ity of b) 00:00:00 [facility] Pneumococcal 13 2018-05-23 Completed [facility] y of Conjugate, PCV13 00:00:00 [place] [facility] (Prevnar 13) Branch Twinrix (hep a/hep 2018-05-23 Completed Univer sity of b) 00:00:00 [facility] Pneumococcal 13 2018-05-23 Completed [facility] y of Conjugate, PCV13 00:00:00 [place] [facility] (Prevnar 13) Branch Twinrix (hep a/hep 2018-05-23 Completed Univer sity of b) 00:00:00 [facility] Pneumococcal 13 2018-05-23 Completed [facility] of Conjugate, PCV13 00:00:00 [place] [facility] (Prevnar 13) Branch Twinrix (hep a/hep 2018-05-23 Completed Univer sity of b) 00:00:00 [facility] Pneumococcal 13 2018-05-23 Completed [facility] y of Conjugate, PCV13 00:00:00 [place] [facility] (Prevnar 13) Branch Twinrix (hep a/hep 2018-05-23 Completed Univer [facility]ity of b) 00:00:00 [facility] Pneumococcal 13 2018-05-23 Completed [facility] y of Conjugate, PCV13 00:00:00 [place] [facility] (Prevnar 13) Branch Twinrix (hep a/hep 2018-05-23 Completed Univer [facility]ity of b) 00:00:00 [facility] Pneumococcal 13 2018-05-23 Completed [facility] y of Conjugate, PCV13 00:00:00 [place] [facility] (Prevnar 13) Branch Twinrix (hep a/hep 2018-05-23 Completed Univer sity of b) 00:00:00 [facility] Pneumococcal 13 2018-05-23 Completed [facility] y of Conjugate, PCV13 00:00:00 [place] [facility] (Prevnar 13) Branch Twinrix (hep a/hep 2018-05-23 Completed Univer [facility]ity of b) 00:00:00 [facility] Pneumococcal 13 2018-05-23 Completed [facility] of Conjugate, PCV13 00:00:00 [place] [facility] (Prevnar 13) Branch Twinrix (hep a/hep 2018-05-23 Completed Univer sity of b) 00:00:00 [facility] Pneumococcal 13 2018-05-23 Completed [facility] of Conjugate, PCV13 00:00:00 [place] [facility] (Prevnar 13) Branch Twinrix (hep a/hep 2018-05-23 Completed Univer sity of b) 00:00:00 [facility] Pneumococcal 13 2018-05-23 Completed [facility] y of Conjugate, PCV13 00:00:00 [place] [facility] (Prevnar 13) Branch Twinrix (hep a/hep 2018-05-23 Completed Univer sity of b) 00:00:00 [facility] Pneumococcal 13 2018-05-23 Completed [facility] y of Conjugate, PCV13 00:00:00 [place] [facility] (Prevnar 13) Branch Twinrix (hep a/hep 2018-05-23 Completed Univer sity of b) 00:00:00 [facility] Pneumococcal 13 2018-05-23 Completed [facility] y of Conjugate, PCV13 00:00:00 [place] [facility] (Prevnar 13) Branch Twinrix (hep a/hep 2018-05-23 Completed Univer sity of b) 00:00:00 [facility] Pneumococcal 13 2018-05-23 Completed [facility] y of Conjugate, PCV13 00:00:00 [place] [facility] (Prevnar 13) Branch Twinrix (hep a/hep 2018-05-23 Completed Univer sity of b) 00:00:00 [facility] Pneumococcal 13 2018-05-23 Completed [facility] y of Conjugate, PCV13 00:00:00 [place] [facility] (Prevnar 13) Branch Twinrix (hep a/hep 2018-05-23 Completed Univer sity of b) 00:00:00 [facility] Pneumococcal 13 2018-05-23 Completed [facility] y of Conjugate, PCV13 00:00:00 [place] [facility] (Prevnar 13) Branch Twinrix (hep a/hep 2018-05-23 Completed Univer sity of b) 00:00:00 [facility] Pneumococcal 13 2018-05-23 Completed [facility] y of Conjugate, PCV13 00:00:00 [place] [facility] (Prevnar 13) Branch Twinrix (hep a/hep 2018-05-23 Completed Univer sity of b) 00:00:00 [facility] Pneumococcal 13 2018-05-23 Completed [facility] y of Conjugate, PCV13 00:00:00 [place] [facility] (Prevnar 13) Branch Twinrix (hep a/hep 2018-05-23 Completed Univer sity of b) 00:00:00 [facility] Pneumococcal 13 2018-05-23 Completed [facility] y of Conjugate, PCV13 00:00:00 [place] [facility] (Prevnar 13) Branch Twinrix (hep a/hep 2018-05-23 Completed Univer sity of b) 00:00:00 [facility] Pneumococcal 13 2018-05-23 Completed [facility] y of Conjugate, PCV13 00:00:00 [facility] dical (Prevnar 13) Branch Twinrix (hep a/hep 2018-05-23 Completed Univer sity of b) 00:00:00 [facility] Pneumococcal 13 2018-05-23 Completed [facility]it y of Conjugate, PCV13 00:00:00 [facility] dical (Prevnar 13) Branch Twinrix (hep a/hep 2018-05-23 Completed Univer sity of b) 00:00:00 [facility] Pneumococcal 13 2018-05-23 Completed [facility]it y of Conjugate, PCV13 00:00:00 [facility] dical (Prevnar 13) Branch Twinrix (hep a/hep 2018-05-23 Completed Univer sity of b) 00:00:00 [facility] Pneumococcal 13 2018-05-23 Completed [facility] y of Conjugate, PCV13 00:00:00 [place] [facility] (Prevnar 13) Branch Twinrix (hep a/hep 2018-05-23 Completed Univer sity of b) 00:00:00 [facility] Pneumococcal 13 2018-05-23 Completed [facility] y of Conjugate, PCV13 00:00:00 [place] [facility] (Prevnar 13) Branch Twinrix (hep a/hep 2018-05-23 Completed Univer sity of b) 00:00:00 [facility] Pneumococcal 13 2018-05-23 Completed [facility] y of Conjugate, PCV13 00:00:00 [place] [facility] (Prevnar 13) Branch Twinrix (hep a/hep 2018-05-23 Completed Univer sity of b) 00:00:00 [facility] Pneumococcal 13 2018-05-23 Completed [facility]it y of Conjugate, PCV13 00:00:00 [facility] dical (Prevnar 13) Branch Twinrix (hep a/hep 2018-05-23 Completed Univer sity of b) 00:00:00 [facility] Pneumococcal 13 2018-05-23 Completed [facility]it y of Conjugate, PCV13 00:00:00 [facility] dical (Prevnar 13) Branch Twinrix (hep a/hep 2018-05-23 Completed Univer sity of b) 00:00:00 [facility] Pneumococcal 13 2018-05-23 Completed [facility]it y of Conjugate, PCV13 00:00:00 [facility] dical (Prevnar 13) Branch Twinrix (hep a/hep 2018-05-23 Completed Univer sity of b) 00:00:00 [facility] Pneumococcal 13 2018-05-23 Completed [facility]it y of Conjugate, PCV13 00:00:00 [facility] (Prevnar 13) [place] Influenza Virus 2016-11-10 Completed [facility]it y of Vaccine (3+ yrs) 00:00:00 [facility] Influenza Virus 2016-11-10 Completed [facility] y of Vaccine (3+ yrs) 00:00:00 [facility] Influenza Virus 2016-11-10 Completed [facility] y of Vaccine (3+ yrs) 00:00:00 [facility] Influenza Virus 2016-11-10 Completed [facility] y of Vaccine (3+ yrs) 00:00:00 [facility] Influenza Virus 2016-11-10 Completed [facility] y of Vaccine (3+ yrs) 00:00:00 [facility] Influenza Virus 2016-11-10 Completed [facility] y of Vaccine (3+ yrs) 00:00:00 [facility] Influenza Virus 2016-11-10 Completed [facility] y of Vaccine (3+ yrs) 00:00:00 [facility] Influenza Virus 2016-11-10 Completed [facility] y of Vaccine (3+ yrs) 00:00:00 [facility] Influenza Virus 2016-11-10 Completed [facility] y of Vaccine (3+ yrs) 00:00:00 [facility] Influenza Virus 2016-11-10 Completed [facility] y of Vaccine (3+ yrs) 00:00:00 [facility] Influenza Virus 2016-11-10 Completed [facility] y of Vaccine (3+ yrs) 00:00:00 [facility] Influenza Virus 2016-11-10 Completed [facility] y of Vaccine (3+ yrs) 00:00:00 [facility] Influenza Virus 2016-11-10 Completed [facility] y of Vaccine (3+ yrs) 00:00:00 [facility] Influenza Virus 2016-11-10 Completed [facility] y of Vaccine (3+ yrs) 00:00:00 [facility] Influenza Virus 2016-11-10 Completed [facility] y of Vaccine (3+ yrs) 00:00:00 [facility] Influenza Virus 2016-11-10 Completed [facility] y of Vaccine (3+ yrs) 00:00:00 [facility] Influenza Virus 2016-11-10 Completed [facility] y of Vaccine (3+ yrs) 00:00:00 [facility] Influenza Virus 2016-11-10 Completed [facility] y of Vaccine (3+ yrs) 00:00:00 [facility] Influenza Virus 2016-11-10 Completed [facility] y of Vaccine (3+ yrs) 00:00:00 [facility] Influenza Virus 2016-11-10 Completed [facility] of Vaccine (3+ yrs) 00:00:00 [facility] Influenza Virus 2016-11-10 Completed [facility] y of Vaccine (3+ yrs) 00:00:00 [facility] Influenza Virus 2016-11-10 Completed [facility] y of Vaccine (3+ yrs) 00:00:00 [facility] Influenza Virus 2016-11-10 Completed [facility] y of Vaccine (3+ yrs) 00:00:00 [facility] Influenza Virus 2016-11-10 Completed [facility] of Vaccine (3+ yrs) 00:00:00 [facility] Influenza Virus 2016-11-10 Completed [facility] of Vaccine (3+ yrs) 00:00:00 [facility] Influenza Virus 2016-11-10 Completed [facility] y of Vaccine (3+ yrs) 00:00:00 [facility] Influenza Virus 2016-11-10 Completed [facility] of Vaccine (3+ yrs) 00:00:00 [facility] Influenza Virus 2016-11-10 Completed [facility] of Vaccine (3+ yrs) 00:00:00 [facility] Influenza Virus 2016-11-10 Completed [facility] y of Vaccine (3+ yrs) 00:00:00 [facility] Influenza Virus 2016-11-10 Completed [facility] of Vaccine (3+ yrs) 00:00:00 [facility] Influenza Virus 2016-11-10 Completed [facility] of Vaccine (3+ yrs) 00:00:00 [facility] Influenza Virus 2016-11-10 Completed [facility] of Vaccine (3+ yrs) 00:00:00 [facility] Influenza Virus 2016-11-10 Completed [facility] of Vaccine (3+ yrs) 00:00:00 [facility] Influenza Virus 2016-11-10 Completed [facility] of Vaccine (3+ yrs) 00:00:00 [facility] Influenza Virus 2016-11-10 Completed [facility] of Vaccine (3+ yrs) 00:00:00 [facility] Influenza Virus 2016-11-10 Completed [facility] of Vaccine (3+ yrs) 00:00:00 [facility] Influenza Virus 2016-11-10 Completed [facility] of Vaccine (3+ yrs) 00:00:00 [facility] Influenza Virus 2016-11-10 Completed [facility] of Vaccine (3+ yrs) 00:00:00 [facility] Influenza Virus 2016-11-10 Completed [facility] of Vaccine (3+ yrs) 00:00:00 [facility] Influenza Virus 2016-11-10 Completed [facility] of Vaccine (3+ yrs) 00:00:00 [facility] Influenza Virus 2016-11-10 Completed [facility] of Vaccine (3+ yrs) 00:00:00 [facility] Influenza Virus 2016-11-10 Completed [facility] of Vaccine (3+ yrs) 00:00:00 [facility] Influenza Virus 2016-11-10 Completed [facility] of Vaccine (3+ yrs) 00:00:00 [facility] Influenza Virus 2016-11-10 Completed [facility] of Vaccine (3+ yrs) 00:00:00 [facility] Influenza Virus 2016-11-10 Completed [facility] of Vaccine (3+ yrs) 00:00:00 [facility] Influenza Virus 2016-11-10 Completed [facility] of Vaccine (3+ yrs) 00:00:00 [facility] Influenza Virus 2016-11-10 Completed [facility] of Vaccine (3+ yrs) 00:00:00 [facility] Influenza Virus 2016-11-10 Completed [facility] of Vaccine (3+ yrs) 00:00:00 [facility] Influenza Virus 2016-11-10 Completed [facility] of Vaccine (3+ yrs) 00:00:00 [facility] Influenza Virus 2016-11-10 Completed [facility] of Vaccine (3+ yrs) 00:00:00 [facility] Influenza Virus 2016-11-10 Completed [facility] of Vaccine (3+ yrs) 00:00:00 [facility] Influenza Virus 2016-11-10 Completed [facility] of Vaccine (3+ yrs) 00:00:00 [facility] Influenza Virus 2016-11-10 Completed [facility] of Vaccine (3+ yrs) 00:00:00 [facility] Influenza Virus 2016-11-10 Completed [facility] of Vaccine (3+ yrs) 00:00:00 [facility] Influenza Virus 2016-11-10 Completed [facility] of Vaccine (3+ yrs) 00:00:00 [facility] Influenza Virus 2016-11-10 Completed [facility] Vaccine (3+ yrs) 00:00:00 [facility] Influenza Virus 2016-11-10 Completed [facility] of Vaccine (3+ yrs) 00:00:00 [facility] Influenza Virus 2016-11-10 Completed [facility] Vaccine (3+ yrs) 00:00:00 [facility] Influenza Virus 2016-11-10 Completed [facility] Vaccine (3+ yrs) 00:00:00 [facility] Influenza Virus 2016-11-10 Completed [facility] of Vaccine (3+ yrs) 00:00:00 [facility] Influenza Virus 2016-11-10 Completed [facility] Vaccine (3+ yrs) 00:00:00 [facility] Influenza Virus 2016-11-10 Completed [facility] Vaccine (3+ yrs) 00:00:00 [facility] Influenza Virus 2016-11-10 Completed Universit y of Vaccine (3+ yrs) 00:00:00 [facility] Influenza Virus 2016-11-10 Completed Universit y of Vaccine (3+ yrs) 00:00:00 [facility] Influenza Virus 2016-11-10 Completed Universit y of Vaccine (3+ yrs) 00:00:00 [facility] Influenza Virus 2016-11-10 Completed Universit y of Vaccine (3+ yrs) 00:00:00 [facility] Influenza Virus 2016-11-10 Completed Universit y of Vaccine (3+ yrs) 00:00:00 [facility] Influenza Virus 2016-11-10 Completed Universit y of Vaccine (3+ yrs) 00:00:00 [facility] Influenza Virus 2016-11-10 Completed Universit y of Vaccine (3+ yrs) 00:00:00 [facility] Influenza Virus 2016-11-10 Completed Universit y of Vaccine (3+ yrs) 00:00:00 [facility] Influenza Virus 2016-11-10 Completed Universit y of Vaccine (3+ yrs) 00:00:00 [facility] Influenza Virus 2016-11-10 Completed Universit y of Vaccine (3+ yrs) 00:00:00 [facility] Influenza Virus 2016-11-10 Completed Universit y of Vaccine (3+ yrs) 00:00:00 [facility] Influenza Virus 2016-11-10 Completed Universit y of Vaccine (3+ yrs) 00:00:00 [facility] Pneumococcal 2014-04-13 Completed University o f Polysaccharide, 00:00:00 [place] [facility] PPSV23 (PNEUMOVAX) Branch Pneumococcal 2014-04-13 Completed University o f Polysaccharide, 00:00:00 [place] [facility] PPSV23 (PNEUMOVAX) Branch Pneumococcal 2014-04-13 Completed University o f Polysaccharide, 00:00:00 [place] [facility] PPSV23 (PNEUMOVAX) Branch Pneumococcal 2014-04-13 Completed University o f Polysaccharide, 00:00:00 [place] [facility] PPSV23 (PNEUMOVAX) Branch Pneumococcal 2014-04-13 Completed University o f Polysaccharide, 00:00:00 [place] [facility] PPSV23 (PNEUMOVAX) Branch Pneumococcal 2014-04-13 Completed University o f Polysaccharide, 00:00:00 [place] [facility] PPSV23 (PNEUMOVAX) Branch Pneumococcal 2014-04-13 Completed University o f Polysaccharide, 00:00:00 [place] [facility] PPSV23 (PNEUMOVAX) Branch Pneumococcal 2014-04-13 Completed University o f Polysaccharide, 00:00:00 [place] [facility] PPSV23 (PNEUMOVAX) Branch Pneumococcal 2014-04-13 Completed University o f Polysaccharide, 00:00:00 [place] [facility] PPSV23 (PNEUMOVAX) Branch Pneumococcal 2014-04-13 Completed University o f Polysaccharide, 00:00:00 [place] [facility] PPSV23 (PNEUMOVAX) Branch Pneumococcal 2014-04-13 Completed University o f Polysaccharide, 00:00:00 [place] [facility] PPSV23 (PNEUMOVAX) Branch Pneumococcal 2014-04-13 Completed University o f Polysaccharide, 00:00:00 [place] [facility] PPSV23 (PNEUMOVAX) Branch Pneumococcal 2014-04-13 Completed University o f Polysaccharide, 00:00:00 [place] [facility] PPSV23 (PNEUMOVAX) Branch Pneumococcal 2014-04-13 Completed University o f Polysaccharide, 00:00:00 [place] [facility] PPSV23 (PNEUMOVAX) Branch Pneumococcal 2014-04-13 Completed University o f Polysaccharide, 00:00:00 [place] [facility] PPSV23 (PNEUMOVAX) Branch Pneumococcal 2014-04-13 Completed University o f Polysaccharide, 00:00:00 [place] [facility] PPSV23 (PNEUMOVAX) Branch Pneumococcal 2014-04-13 Completed University o f Polysaccharide, 00:00:00 [place] [facility] PPSV23 (PNEUMOVAX) Branch Pneumococcal 2014-04-13 Completed University o f Polysaccharide, 00:00:00 [place] [facility] PPSV23 (PNEUMOVAX) Branch Pneumococcal 2014-04-13 Completed University o f Polysaccharide, 00:00:00 [place] [facility] PPSV23 (PNEUMOVAX) Branch Pneumococcal 2014-04-13 Completed University o f Polysaccharide, 00:00:00 [place] [facility] PPSV23 (PNEUMOVAX) Branch Pneumococcal 2014-04-13 Completed University o f Polysaccharide, 00:00:00 [place] [facility] PPSV23 (PNEUMOVAX) Branch Pneumococcal 2014-04-13 Completed University o f Polysaccharide, 00:00:00 [place] [facility] PPSV23 (PNEUMOVAX) Branch Pneumococcal 2014-04-13 Completed University o f Polysaccharide, 00:00:00 [place] [facility] PPSV23 (PNEUMOVAX) Branch Pneumococcal 2014-04-13 Completed University o f Polysaccharide, 00:00:00 [place] [facility] PPSV23 (PNEUMOVAX) Branch Pneumococcal 2014-04-13 Completed University o f Polysaccharide, 00:00:00 [place] [facility] PPSV23 (PNEUMOVAX) Branch Pneumococcal 2014-04-13 Completed University o f Polysaccharide, 00:00:00 [place] [facility] PPSV23 (PNEUMOVAX) Branch Pneumococcal 2014-04-13 Completed University o f Polysaccharide, 00:00:00 [place] [facility] PPSV23 (PNEUMOVAX) Branch Pneumococcal 2014-04-13 Completed University o f Polysaccharide, 00:00:00 [place] [facility] PPSV23 (PNEUMOVAX) Branch Pneumococcal 2014-04-13 Completed University o f Polysaccharide, 00:00:00 [place] [facility] PPSV23 (PNEUMOVAX) Branch Pneumococcal 2014-04-13 Completed University o f Polysaccharide, 00:00:00 [place] [facility] PPSV23 (PNEUMOVAX) Branch Pneumococcal 2014-04-13 Completed University o f Polysaccharide, 00:00:00 [place] [facility] PPSV23 (PNEUMOVAX) Branch Pneumococcal 2014-04-13 Completed University o f Polysaccharide, 00:00:00 [place] [facility] PPSV23 (PNEUMOVAX) Branch Pneumococcal 2014-04-13 Completed University o f Polysaccharide, 00:00:00 [place] [facility] PPSV23 (PNEUMOVAX) Branch Pneumococcal 2014-04-13 Completed University o f Polysaccharide, 00:00:00 [place] [facility] PPSV23 (PNEUMOVAX) Branch Pneumococcal 2014-04-13 Completed University o f Polysaccharide, 00:00:00 [place] [facility] PPSV23 (PNEUMOVAX) Branch Pneumococcal 2014-04-13 Completed University o f Polysaccharide, 00:00:00 [place] [facility] PPSV23 (PNEUMOVAX) Branch Pneumococcal 2014-04-13 Completed University o f Polysaccharide, 00:00:00 [place] [facility] PPSV23 (PNEUMOVAX) Branch Pneumococcal 2014-04-13 Completed University o f Polysaccharide, 00:00:00 [place] [facility] PPSV23 (PNEUMOVAX) Branch Pneumococcal 2014-04-13 Completed University o f Polysaccharide, 00:00:00 [place] [facility] PPSV23 (PNEUMOVAX) Branch Pneumococcal 2014-04-13 Completed University o f Polysaccharide, 00:00:00 [place] [facility] PPSV23 (PNEUMOVAX) Branch Pneumococcal 2014-04-13 Completed University o f Polysaccharide, 00:00:00 [place] [facility] PPSV23 (PNEUMOVAX) Branch Pneumococcal 2014-04-13 Completed University o f Polysaccharide, 00:00:00 [place] [facility] PPSV23 (PNEUMOVAX) Branch Pneumococcal 2014-04-13 Completed University o f Polysaccharide, 00:00:00 [place] [facility] PPSV23 (PNEUMOVAX) Branch Pneumococcal 2014-04-13 Completed University o f Polysaccharide, 00:00:00 [place] [facility] PPSV23 (PNEUMOVAX) Branch Pneumococcal 2014-04-13 Completed University o f Polysaccharide, 00:00:00 [place] [facility] PPSV23 (PNEUMOVAX) Branch Pneumococcal 2014-04-13 Completed University o f Polysaccharide, 00:00:00 [place] [facility] PPSV23 (PNEUMOVAX) Branch Pneumococcal 2014-04-13 Completed University o f Polysaccharide, 00:00:00 [place] [facility] PPSV23 (PNEUMOVAX) Branch Pneumococcal 2014-04-13 Completed University o f Polysaccharide, 00:00:00 [place] [facility] PPSV23 (PNEUMOVAX) Branch Pneumococcal 2014-04-13 Completed University o f Polysaccharide, 00:00:00 [place] [facility] PPSV23 (PNEUMOVAX) Branch Pneumococcal 2014-04-13 Completed University o f Polysaccharide, 00:00:00 [place] [facility] PPSV23 (PNEUMOVAX) Branch Pneumococcal 2014-04-13 Completed University o f Polysaccharide, 00:00:00 [place] [facility] PPSV23 (PNEUMOVAX) Branch Pneumococcal 2014-04-13 Completed University o f Polysaccharide, 00:00:00 [place] [facility] PPSV23 (PNEUMOVAX) Branch Pneumococcal 2014-04-13 Completed University o f Polysaccharide, 00:00:00 [place] [facility] PPSV23 (PNEUMOVAX) Branch Pneumococcal 2014-04-13 Completed University o f Polysaccharide, 00:00:00 [place] [facility] PPSV23 (PNEUMOVAX) Branch Pneumococcal 2014-04-13 Completed University o f Polysaccharide, 00:00:00 [place] [facility] PPSV23 (PNEUMOVAX) Branch Pneumococcal 2014-04-13 Completed University o f Polysaccharide, 00:00:00 [place] [facility] PPSV23 (PNEUMOVAX) Branch Pneumococcal 2014-04-13 Completed University o f Polysaccharide, 00:00:00 [place] [facility] PPSV23 (PNEUMOVAX) Branch Pneumococcal 2014-04-13 Completed University o f Polysaccharide, 00:00:00 [place] [facility] PPSV23 (PNEUMOVAX) Branch Pneumococcal 2014-04-13 Completed University o f Polysaccharide, 00:00:00 [place] [facility] PPSV23 (PNEUMOVAX) Branch Pneumococcal 2014-04-13 Completed University o f Polysaccharide, 00:00:00 [place] [facility] PPSV23 (PNEUMOVAX) Branch Pneumococcal 2014-04-13 Completed University o f Polysaccharide, 00:00:00 [place] [facility] PPSV23 (PNEUMOVAX) Branch Pneumococcal 2014-04-13 Completed University o f Polysaccharide, 00:00:00 [place] [facility] PPSV23 (PNEUMOVAX) Branch Pneumococcal 2014-04-13 Completed University o f Polysaccharide, 00:00:00 [place] [facility] PPSV23 (PNEUMOVAX) Branch Pneumococcal 2014-04-13 Completed University o f Polysaccharide, 00:00:00 [place] [facility] PPSV23 (PNEUMOVAX) Branch Pneumococcal 2014-04-13 Completed University o f Polysaccharide, 00:00:00 [place] [facility] PPSV23 (PNEUMOVAX) Branch Pneumococcal 2014-04-13 Completed University o f Polysaccharide, 00:00:00 [place] [facility] PPSV23 (PNEUMOVAX) Branch Pneumococcal 2014-04-13 Completed University o f Polysaccharide, 00:00:00 [place] [facility] PPSV23 (PNEUMOVAX) Branch Pneumococcal 2014-04-13 Completed University o f Polysaccharide, 00:00:00 [place] [facility] PPSV23 (PNEUMOVAX) Branch Pneumococcal 2014-04-13 Completed University o f Polysaccharide, 00:00:00 [place] [facility] PPSV23 (PNEUMOVAX) Branch Pneumococcal 2014-04-13 Completed University o f Polysaccharide, 00:00:00 [place] [facility] PPSV23 (PNEUMOVAX) Branch Pneumococcal 2014-04-13 Completed University o f Polysaccharide, 00:00:00 [place] [facility] PPSV23 (PNEUMOVAX) Branch Pneumococcal 2014-04-13 Completed University o f Polysaccharide, 00:00:00 [place] [facility] PPSV23 (PNEUMOVAX) Branch Pneumococcal 2014-04-13 Completed University o f Polysaccharide, 00:00:00 [place] [facility] PPSV23 (PNEUMOVAX) Branch Pneumococcal 2014-04-13 Completed University o f Polysaccharide, 00:00:00 [place] [facility] PPSV23 (PNEUMOVAX) Branch Vital Signs Vital Name Observation Time Observation Value Comments Source Systolic blood 2022-03-02 21:31:00 138 mm[Hg] Univer sity of pressure [facility] Diastolic blood 2022-03-02 21:31:00 60 mm[Hg] Unive rsity of pressure [facility] Body temperature 2022-03-02 21:31:00 36.56 Lily Univ ersity of [facility] Body height 2022-03-02 21:31:00 182.9 cm Universi ty of [facility] Body weight 2022-03-02 21:31:00 156.672 kg [facility]i ty of [facility] BMI 2022-03-02 21:31:00 46.84 kg/m2 Universi ty of [facility] [place] Oxygen saturation in 2022-03-02 21:31:00 93 /min University Arterial blood by [facility] Pulse oximetry Branch Systolic blood 2022-02-22 16:00:00 155 mm[Hg] Univer sity of pressure [facility] Diastolic blood 2022-02-22 16:00:00 78 mm[Hg] Unive rsity of pressure [facility] Heart rate 2022-02-22 15:52:00 80 /min Universi ty of [facility] Body height 2022-02-22 15:52:00 177.8 cm [facility]i ty of [facility] Body weight 2022-02-22 15:52:00 154.223 kg [facility]i ty of [facility] BMI 2022-02-22 15:52:00 48.78 kg/m2 [facility] Systolic blood 2022-02-06 17:17:00 114 mm[Hg] Univer sity of pressure [facility] Diastolic blood 2022-02-06 17:17:00 57 mm[Hg] Unive rsity of pressure [facility] Heart rate 2022-02-06 17:17:00 40 /min Universi ty of [facility] Body temperature 2022-02-06 17:17:00 36.89 Lily Univ ersity of [facility] Body height 2022-02-06 17:17:00 177.8 cm Universi ty of [facility] Body weight 2022-02-06 17:17:00 155.584 kg [facility] [place] BMI 2022-02-06 17:17:00 49.22 kg/m2 Universi ty of [facility] [place] Systolic blood 2022-02-01 16:42:00 145 mm[Hg] Univer sity of pressure [facility] Diastolic blood 2022-02-01 16:42:00 83 mm[Hg] Unive rsity of pressure [facility] Heart rate 2022-02-01 16:41:00 80 /min Universi ty of [facility] [place] Body temperature 2022-02-01 16:41:00 37.33 Lily Univ ersity of [facility] [place] Body weight 2022-02-01 16:41:00 155.584 kg Universi ty of [facility] [place] BMI 2022-02-01 16:41:00 46.52 kg/m2 Universi ty of [facility] [place] Systolic blood 2022-01-27 02:30:00 178 mm[Hg] Univer sity of pressure [facility] [place] Diastolic blood 2022-01-27 02:30:00 95 mm[Hg] Unive rsity of [facility] Heart rate 2022-01-27 02:30:00 79 /min Universi ty of [facility] [place] Respiratory rate 2022-01-27 02:30:00 21 /[facility] Oxygen saturation in 2022-01-27 02:30:00 94 /min [facility] of Arterial blood by [facility] Pulse oximetry Branch Body temperature 2022-01-27 01:10:00 36.5 Lily Univ ersity of [facility] [place] Body height 2022-01-27 01:10:00 182.9 cm Universi ty of [facility] [place] Body weight 2022-01-27 01:10:00 158.759 kg Universi ty of [facility] [place] BMI 2022-01-27 01:10:00 47.47 kg/m2 Universi ty of [facility] [place] Systolic blood 2022-01-05 14:49:00 141 mm[Hg] Univer sity of pressure [facility] [place] Diastolic blood 2022-01-05 14:49:00 77 mm[Hg] Unive rsity of pressure [facility] [place] Heart rate 2022-01-05 14:49:00 81 /min Universi ty of [facility] [place] Body temperature 2022-01-05 14:46:00 36.44 Lily [facility] Body height 2022-01-05 14:46:00 182.9 cm [facility]i ty [facility] Body weight 2022-01-05 14:46:00 154.541 kg [facility]i ty of [facility] BMI 2022-01-05 14:46:00 46.21 kg/m2 [facility]i ty of [facility] Oxygen saturation in 2022-01-05 14:46:00 93 /min University of Arterial blood by [facility] Pulse oximetry Branch Systolic blood 2021-12-08 19:17:00 146 mm[Hg] Univer sity of pressure [facility] Diastolic blood 2021-12-08 19:17:00 66 mm[Hg] Unive rsity of pressure [facility] Heart rate 2021-12-08 19:17:00 77 /min Universi ty of [facility] Body height 2021-12-08 19:17:00 182.9 cm [facility]i ty of [facility] Body weight 2021-12-08 19:17:00 155.402 kg [facility]i ty of [facility] BMI 2021-12-08 19:17:00 46.46 kg/m2 [facility] of [facility] Oxygen saturation in 2021-12-08 19:17:00 92 /min University of Arterial blood by [facility] Pulse oximetry Branch Systolic blood 2021-12-01 15:11:00 145 mm[Hg] Univer sity of pressure [facility] Diastolic blood 2021-12-01 15:11:00 75 mm[Hg] Unive rsity of pressure [facility] Heart rate 2021-12-01 15:11:00 58 /min [facility] Body temperature 2021-12-01 15:11:00 36 Lily [facility] Respiratory rate 2021-12-01 15:11:00 19 /min Univ ersity of [facility] Body height 2021-12-01 15:11:00 182.9 cm [facility]i ty [facility] Body weight 2021-12-01 15:11:00 154.087 kg [facility] BMI 2021-12-01 15:11:00 46.07 kg/m2 [facility] Oxygen saturation in 2021-12-01 15:11:00 93 /min University of Arterial blood by [facility] Pulse oximetry Branch Systolic blood 2021-11-25 05:01:00 138 mm[Hg] Univer sity of pressure [facility] Diastolic blood 2021-11-25 05:01:00 63 mm[Hg] Unive rsity of pressure [facility] Heart rate 2021-11-25 05:01:00 86 /min Universi ty of [facility] Respiratory rate 2021-11-25 05:01:00 19 /min Univ ersity of [facility] Oxygen saturation in 2021-11-25 05:01:00 94 /min University of Arterial blood by [facility] Pulse oximetry Branch Body temperature 2021-11-25 01:27:00 36.44 Lily Univ ers[facility] of [facility] Body height 2021-11-25 01:27:00 182.9 cm Universi ty of [facility] Body weight 2021-11-25 01:27:00 150.141 kg [facility] BMI 2021-11-25 01:27:00 44.89 kg/m2 [facility] ty [facility] Systolic blood 2021-11-24 15:13:00 167 mm[Hg] Univer sity of pressure [facility] Diastolic blood 2021-11-24 15:13:00 102 mm[Hg] Unive rsity of pressure [facility] [place] Heart rate 2021-11-24 15:09:00 80 /min [facility]i ty [facility] Body temperature 2021-11-24 15:09:00 36.39 Lily [facility] Body height 2021-11-24 15:09:00 182.9 cm [facility] Body weight 2021-11-24 15:09:00 150.277 kg [facility] BMI 2021-11-24 15:09:00 44.93 kg/m2 [facility] Oxygen saturation in 2021-11-24 15:09:00 97 /min University of Arterial blood by [facility] Pulse oximetry Branch Body weight 2020-12-24 13:33:00 161.5 kg [facility] BMI 2020-12-24 13:33:00 48.29 kg/m2 [facility] Procedures Procedure Date / Time Performing Clinician Source Performed AUTHORIZATION FOR 2022-04-15 06:01:00 Doctor Unassigned, No [facility] RELEASE OF [facility] Name Medical Branch AUTHORIZATION FOR 2022-03-14 06:01:00 Doctor Unassigned, No [facility] RELEASE OF PHI Name Medical Branch BASIC METABOLIC PANEL 2022-02-22 15:13:00 [facility] CL, CO2, Medical Branch GLUCOSE, BUN, CREATININE, CA) PROTHROMBIN TIME / INR 2022-02-22 15:13:00 [facility]oon [facility] 2022-02-22 15:13:00 Joon Wood[facility]aria A [facility] POCT SARS-COV-2 ANTIGEN 2022-02-01 00:00:00 Jose Juan Gonsalez [facility] ([facility]) [facility] Branch MAGNESIUM 2022-01-27 01:20:00 Kash [facility] TROPONIN I 2022-01-27 01:20:00 Kash [facility] COMP. METABOLIC PANEL 2022-01-27 01:20:00 Jessica Hewitt [facility] ([id number]) [facility] CBC WITH DIFF 2022-01-27 01:20:00 Darien [facility] N-TERMINAL PRO-BNP 2022-01-27 01:20:00 Jessica [facility] CONSENT/REFUSAL FOR 2022-01-27 01:01:28 [facility]AT[facility] Name [facility] PROTHROMBIN TIME / INR 2022-01-26 19:21:00 Joon WoodyHMaria A U [facility] CERVICAL SPINE WO 2022-01-26 19:01:00 Requisition, Paper [facility] POCT HEMOGLOBIN A1C TEST 2021-12-08 20:05:00 [facility] 2021-12-01 15:53:00 Joon Woody K.Altagracia [facility] COMP. METABOLIC PANEL 2021-12-01 15:53:00 [id number] LIPID PANEL 2021-12-01 15:53:00 Joon Woody [facility] ([id number])(TOTAL Medical Branch CHOLESTEROL, TRIGLYCERIDES, HDL) CBC WITH DIFF 2021-12-01 15:53:00 Joon Woody [facility] PROTHROMBIN TIME / INR 2021-12-01 15:53:00 [facility]-BNP 2021-12-01 15:53:00 [facility]oon [facility] 2021-11-25 01:49:00 [facility] TROPONIN I 2021-11-25 01:49:00 [facility] COMP. METABOLIC PANEL 2021-11-25 01:49:00 [id number] CBC WITH DIFF 2021-11-25 01:49:00 [facility] PROTHROMBIN TIME / INR 2021-11-25 01:49:00 Val Love Un [facility] CONSENT/REFUSAL FOR 2021-11-25 01:15:35 Doctor Unassigned, No Un [facility] DIAGNOSIS AND TREATMENT Name [facility] Plan of Care Planned Activity Planned Date Details Comments Source Future Scheduled 2022-07-10 COVID-19 VACCINE (#1) [facility] Test 11:11:20 [code = COVID-19 VACCINE (#1)] Future Scheduled 2022-07-10 Hepatitis C screening [facility] Test 11:11:20 (procedure) [code = 209957180] Future Scheduled 2022-07-10 COLONOSCOPY SCREENING [facility] Test 11:11:20 [code = COLONOSCOPY SCREENING] Future Scheduled 2022-07-10 SHINGLES VACCINES (1 [facility] Test 11:11:20 of 2) [code = SHINGLES VACCINES (1 of 2)] Future Scheduled 2022-07-10 65+ [facility]CCAL [facility] Test 11:11:20 VACCINE (1 - PCV) [code = 65+ PNEUMOCOCCAL VACCINE (1 - PCV)] Future Scheduled 2022-07-10 INFLUENZA VACCINE [facility] Test 11:11:20 [code = INFLUENZA VACCINE] Future Scheduled 2022-06-27 COVID-19 VACCINE (#1) [facility] Test 15:22:05 [code = COVID-19 VACCINE (#1)] Future Scheduled 2022-06-27 Hepatitis C screening [facility] Test 15:22:05 (procedure) [code = [id number]] Future Scheduled 2022-06-27 COLONOSCOPY SCREENING [facility] Test 15:22:05 [code = COLONOSCOPY SCREENING] Future Scheduled 2022-06-27 SHINGLES VACCINES (1 [facility] Test 15:22:05 of 2) [code = SHINGLES VACCINES (1 of 2)] Future Scheduled 2022-06-27 65+ PNEUMOCOCCAL [facility] Test 15:22:05 VACCINE (1 - PCV) [code = 65+ PNEUMOCOCCAL VACCINE (1 - PCV)] Future Scheduled 2022-06-27 INFLUENZA VACCINE [facility] Test 15:22:05 [code = INFLUENZA VACCINE] Future Scheduled 2022-06-27 COVID-19 VACCINE (#1) [facility] Test 15:22:05 [code = COVID-19 VACCINE (#1)] Future Scheduled 2022-06-27 Hepatitis C screening [facility] Test 15:22:05 (procedure) [code = [id number]] Future Scheduled 2022-06-27 COLONOSCOPY SCREENING [facility] Test 15:22:05 [code = COLONOSCOPY SCREENING] Future Scheduled 2022-06-27 SHINGLES VACCINES (1 [facility] Test 15:22:05 of 2) [code = SHINGLES VACCINES (1 of 2)] Future Scheduled 2022-06-27 65+ [facility]OCOCCAL [facility] Test 15:22:05 VACCINE (1 - PCV) [code = 65+ PNEUMOCOCCAL VACCINE (1 - PCV)] Future Scheduled 2022-06-27 INFLUENZA VACCINE [facility] Test 15:22:05 [code = INFLUENZA VACCINE] Encounters Start End Encounter Admission Attending Care Care Encounter Source Date/Time Date/Time Type Type Clinicians Facility Department ID 2022-06-[address] [id number] Common 17:01:00 NEHA [id number] [facility] 2021-01-10 Emergency [facility] [id number] Univers 15:32:35 ity [facility] 2021-01-10 Emergency [facility] [id number] Univers [facility] 2022-09-14 Outpatient R ANNALISE, [facility] [id number] Univers 15:30:00 15:30:00 SENDIL ity [facility] 2022-07-07 2022-07-07 OSVALDO Visit Sandra [id number]. [id number]. CL [id number] Devoted 15:30:00 16:30:00 Caccamise [id number] Medical [id number] 2022-06-26 2022-06-26 [facility] [id number] Univers 00:00:00 00:00:00 Luis [place] [id number] i ty [id number] [id number] Id dical NAL [address] [place] [address] 2022-06-21 2022-06-21 [facility] [id number] Univers 00:00:00 00:00:00 Sendil BeckieHMaria A [place] [id number] ity [facility] [id number] [phone] Id dical NAL 9 [facility] 2022-06-15 2022-06-15 Telephone Ahmed, 1.2.840.1 [id number] Methodi 00:00:00 00:00:[id number] 3.430.2.7 Hospit a .3.699244 l .8 2022-06-15 2022-06-15 Transcribe Quang 1.2.840.1 [id number] Methodi 00:00:00 00:00:00 Orders Jackie [id number] 3.430.2.7 Hospit a .3.050038 l .8 2022-06-15 2022-06-15 Transcribe Quang, 1.2.840.1 [id number] Methodi 00:00:00 00:00:00 Orders Jackie [id number] 3.430.2.7 Hospit a .3.340974 l .8 2022-06-15 2022-06-15 Telephone Benignocorina, 1.2.840.1 [id number] Methodi 00:00:00 00:00:[address] 3.430.2.7 Hospit a .3.289596 l .8 2022-06-15 2022-06-15 Transcribe Quang, 1.2.840.1 [id number] Methodi 00:00:00 00:00:00 Orders Jackie 94897.1.[address] 3.430.2.7 Hospit a .3.252979 l .8 2022-06-15 2022-06-15 Transcribe Quang, 1.2.840.1 [id number] [id number] Methodi 00:00:00 00:00:00 Orders Jackie 33717.1.[address] 3.430.2.7 Hospit a .3.938061 l .8 2022-06-12 2022-06-12 Telephone Basilio Aguayo 1.2.840.1 [id number] Methodi 00:00:00 00:00:[address] 3.430.2.7 Hospit a .3.513123 l .8 2022-06-12 2022-06-12 Mateo Gonsalez [facility] 1.2.840.114 [id number] Univers 00:00:00 00:00:00 [facility] 350.1.13.10 it y of [place] 4.2.7.2.686 Roen as OLIVIER?BLEA [phone] [facility] [address] OFFICE [facility] 2022-06-12 2022-06-12 Telephone Basilio Aguayo 1.2.840.1 [id number] Methodi 00:00:00 00:00:[address] 3.430.2.7 Hospit a .3.166945 l .8 2022-06-08 2022-06-08 Telephone [facility] 1.2.840.114 101 [id number] Univers 00:00:00 00:00:00 [facility] 350.1.13.10 it y of [place] 4.2.7.2.686 Oren as OLIVIER?BLEA [phone] [address] OFFICE [facility] 2022-05-29 2022-05-29 [facility] 1.2.840.114 [id number] Univers 00:00:00 00:00:00 [facility] 350.1.13.10 it y of [place] 4.2.7.2.686 Oren as OLIVIER?BLEA [phone] [address] 2022-05-26 2022-05-26 [facility] 1.2.840.114 [id number] Univers 00:00:00 00:00:00 Joon [place] 350.1.13.10 ity of [place] J[place]AN[place] [phone] [facility] 059 [facility] 2022-05-26 2022-05-26 [facility] 1.2.840.114 [id number] Univers 00:00:00 00:00:00 [facility] 350.1.13.10 it y of [place] 4.2.7.2.686 Oren as OLIVIER?BLEA [phone] [address] 2022-05-05 2022-05-05 [facility] 1.2.840.114 [id number] 0799 Univers 00:00:00 00:00:00 [facility] HEALTH 350.1.13.10 it y of [place] [facility] 4.2.7.2.686 Oren as OLIVIER?BLEA [phone] [facility] [address] MEDICAL OFFICE [facility] 2022-04-17 2022-04-17 Telephone Sunshine [facility] 1.2.840.114 100 [id number] Univers 00:00:00 00:00:00 [facility] 350.1.13.10 it y of [place] 4.2.7.2.686 Oren as OLIVIER?BLEA [phone] [facility] [address] MEDICAL OFFICE [facility] 2022-04-15 2022-04-15 Orders Doctor TOO 1.2.840.114 [id number] Univers 00:00:00 00:00:00 Only Unassigned, CADE 350.1.13.10 [facility] 4.2.7.2.686 Oren as [phone] [facility] [address] 2022-04-14 2022-04-14 Outpatient Ogbechie_L DMG DM 1337 82-202 Devoted 00:00:00 00:00:00 [id number] Medica l Group 2022-04-11 2022-04-11 Telephone [facility] 1.2.840.114 [id number] Univers 00:00:00 00:00:00 [facility] 350.1.13.10 ity of [place] 4.2.7.2.686 Oren as OLIVIER?BLEA [phone] [facility] 092 [facility] OFFICE [facility] 2022-04-10 2022-04-10 Outpatient R CATIE HILL [facility] [id number] Univers 00:00:00 23:59:00 CATIE HILL ity of [facility] 2022-04-10 2022-04-10 [facility] JEFF Hill 1.2.840.114 10 [id number] Univers 00:00:00 23:59:00 Encounter Estefanía MOHAMUD 350.1.13.10 ity of [facility] 4.2.7.2.686 Oren as [phone] [facility] [address] 2022-04-07 2022-04-07 Telephone [facility] 1.2.840.114 [id number] Univers 00:00:00 00:00:00 [facility] 350.1.13.10 ity of [place] 4.2.7.2.686 Oren as OLIVIER?BLEA [phone] Id paulette ELAM [address] MEDICAL OFFICE [facility] 2022-03-31 2022-03-31 [facility] [id number] Univers 10:40:00 10:40:00 LUIS ity of [facility] 2022-03-31 2022-03-31 Outpatient R ADITYA [facility] [id number] Univers 09:40:00 09:40:00 LUIS ity of [facility] 2022-03-31 2022-03-31 Outpatient R ADITYA [facility] [id number] Univers 09:40:00 09:40:00 LUIS ity [facility] 2022-03-29 2022-03-29 [facility] 1.2.840.114 [id number] Univers 00:00:00 00:00:00 Joon [facility] 350.1.13.10 ity of [facility] 4.2.7.2.[place] [phone] Id paulette HANDLEY 059 [facility] 2022-03-28 2022-03-28 [facility] 1.2.840.114 [id number] Univers 00:00:00 00:00:00 [facility] 350.1.13.10 it y of [place] 4.2.7.2.686 Oren as OLIVIER?BLEA [phone] Id paulette ELAM 044 [facility] OFFICE [facility] 2022-03-25 2022-03-25 [facility] Hospitalbrittani CastrojayeshCLOV[facility] 1.2.840.114 [id number] Univers 00:00:00 00:00:00 [facility] 350.1.13.10 it y of [place] 4.2.7.2.686 Oren as OLIVIER?BLEA [phone] Id paulette ELAM 044 [facility] OFFICE [facility] 2022-03-24 2022-03-24 Outpatient R ANNALISE [facility] [id number] Univers 09:00:00 09:00:00 SENDIL ity of [facility] 2022-03-17 2022-03-17 Telephone Sunshine [facility] 1.2.840.114 [id number] Univers 00:00:00 00:00:00 [facility] 350.1.13.10 it y of [place] 4.2.7.2.686 Oren as OLIVIER?BLEA [phone] Id paulette RIVERAEY [address] MEDICAL OFFICE BUILDING 2022-03-14 2022-03-14 Orders Doctor TOO 1.2.840.114 [id number] Univers 00:00:00 00:00:00 Only Unassigned, CADE 350.1.13.10 ity of [place] [facility] 4.2.7.2.686 Oren as [phone] [address] 2022-03-11 2022-03-11 Refill [facility] 1.2.840.114 [id number] Univers 00:00:00 00:00:00 Sendsissy HANDY 350.1.13.10 ity of [facility] 4.2.7.2.[place] [id number] Id paulette HANDLEY 059 [facility] 2022-03-10 2022-03-10 Grab Driver 2, Adc Lab [facility] 1.2.840.114 [id number] Univers 10:15:00 10:30:00 Visit Joon Woody 350.1.13. 10 ity of [place].2.7.2.[place] [phone] Id paulette NAL 353 [facility] 2022-03-10 2022-03-10 Outpatient R ANNALISE [facility] [id number] Univers 10:15:00 10:15:00 SENDIL sofy [facility] 2022-03-02 2022-03-02 Outpatient R ANNALISE [facility] [id number] Univers 15:30:00 16:02:47 SENDIL ity [facility] 2022-03-02 2022-03-02 Office Annalise [facility] 1.2.840.114 [id number] Univers 15:30:00 16:02:47 Visit Joon HANDY 350.1.13.10 ity of [facility] 4.2.7.2.[place] [phone] Id dical NAL 059 [facility] 2022-02-24 2022-02-24 Telephone Annalise [facility] 1.2.084.443 [id number] [id number] Univers 00:00:00 00:00:00 Sendsissy HANDY 350.1.13.10 ity of [place]2.7.2.[place] [phone] Id dicmaryellen EMMANUELLE 059 [facility] 2022-02-23 2022-02-23 Office [facility] 1.2.840.114 [id number] 73 Univers 14:40:00 14:50:00 Visit Joon HANDY 350.1.13.10 ity of [place].7.2.[place] [phone] Id selinafl EMMANUELLE 059 [facility] 2022-02-23 2022-02-23 Outpatient [facility] [id number] 734 Univers 14:40:00 14:40:00 SENDIL ity of [facility] 2022-02-22 2022-02-22 Grab Driver 2, Adc Lab [facility] 1.2.840.114 [id number] Univers 09:00:00 13:02:50 Visit Joon Woody 350.1.13. 10 ity of [facility] 4.2.7.2.[place] [phone] [facility] 353 [facility] 2022-02-22 2022-02-22 Office [facility] 1.2.840.114 [id number] Univers 10:00:00 10:16:55 Visit [facility] 350.1.13.10 it y of [place] 4.2.7.2.686 Oren as OLIVIER?BLEA [phone] Id paulette [facility] 044 [facility] 2022-02-22 2022-02-22 Outpatient R SUNSHINE [facility] [id number] Univers 10:00:00 10:00:00 JOSE JUAN ity [facility] 2022-02-22 2022-02-22 Refbrittani GonsalezCLOVIS BAP[facility] 1.2.840.114 [id number] Univers 00:00:00 00:00:00 [facility] 350.1.13.10 it y of [place] 4.2.7.2.686 Oren as OLIVIER?BLEA [phone] Id dicfl NICOLE [address] MEDICAL OFFICE [facility] 2022-02-22 2022-02-22 Refbrittani ClaraCLOVIS BAP[facility] 1.2.840.114 [id number] Univers 00:00:00 00:00:00 [facility] 350.1.13.10 ity of [place] 4.2.7.2.686 Oren as OLIVIER?BLEA [phone] [facility] 092 [facility] OFFICE [facility] 2022-02-14 2022-02-14 Outpatient R ANNALISE [facility] [id number] Univers 15:00:00 17:08:32 [facility] 2022-02-14 2022-02-14 Office [facility] 1.2.840.114 [id number] Univers 15:00:00 17:08:32 Visit Joon HANDY 350.1.13.10 ity of [place].2.7.2.[place] [phone] [facility] 059 [facility] 2022-02-14 2022-02-14 Telephone TOO Woody 1.2.154.094 [id number] 1274 Univers 00:00:00 00:00:00 Joon MOHAMUD 350.1.13.10 ity of [facility] 4.2.7.2.686 Oren as [phone] [address] 2022-02-10 2022-02-10 Grab Driver 2, Adc Lab [facility] 1.2.840.114 [id number] Univers 10:30:00 10:45:00 Visit Joon Woody 350.1.13. 10 ity of [place] 4.2.7.2.[place] [id number] Id dical NAL 353 [facility] 2022-02-10 2022-02-10 Outpatient [facility] [id number] Univers 10:30:00 10:30:00 SENDIL [facility] 2022-02-08 2022-02-08 [facility] 1.2.840.114 [id number] Univers 00:00:00 00:00:00 Sendil Lauren [place] 350.1.13.10 ity of [place] 4.2.7.2.[place] [id number] [facility] NAL 059 [facility] 2022-02-06 2022-02-06 Outpatient R [facility] [id number] Univers 11:37:54 23:59:00 [facility] 2022-02-06 2022-02-06 Office [facility] 1.2.840.114 [id number] Univers 11:15:00 11:30:00 Visit [facility] 350.1.13.10 it y of [place] [facility] 4.2.7.2.686 Oren as OLIVIER?BLEA [phone] [address] OFFICE [facility] 2022-02-06 2022-02-06 [facility] 1.2.840.114 [id number] Univers 00:00:00 00:00:00 Sendil Lauren [place] 350.1.13.10 ity [facility] 4.2.7.2.[place] [id number] [place] 827149 [facility] 2022-02-01 2022-02-01 Office [facility] 1.2.840.114 [id number] Univers 11:00:00 11:24:25 Visit [facility] 350.1.13.10 it y of [place] 4.2.7.2.686 Oren as OLIVIER?BLEA [phone] [address] OFFICE [facility] 2022-02-01 2022-02-01 Outpatient R [facility] [id number] Univers 11:00:00 11:00:00 [facility] 2022-01-30 2022-01-30 Office Annalise [facility] 1.2.840.114 [id number] Univers 15:30:00 15:30:00 Visit Joon HANDY 350.1.13.10 ity of [place] 4[place]2.7.2.[place] [phone] [address] 2022-01-30 2022-01-30 Outpatient R [facility] [id number] Univers 15:30:00 11:13:29 SENDIL ity [facility] 2022-01-29 2022-01-29 Refill [facility] 1.2.840.114 [id number] Univers 00:00:00 00:00:00 Joon HANDY 350.1.13.10 ity of [place].7.2.[place] [id number] [address] 2022-01-26 2022-01-26 Emergency [facility]CL[facility] 1.2.935.730 [id number] Univers 19:12:00 20:51:00 Jessica HANDY 350.1.13.10 i ty of [facility] 4.2.7.2.[place] [id number] [facility] [address] [place] 2022-01-26 2022-01-26 Outpatient R RADIOLOGY [facility] [id number] Univers 12:37:52 19:11:00 ity of [facility] 2022-01-26 2022-01-26 Hospital Radiology [facility] 1.2.840.114 [id number] Univers 12:37:52 19:11:00 Encounter OLE 350.1.13.10 ity of [facility] 4.2.7.2.[place] [id number] [facility] [address] 2022-01-26 2022-01-26 Grab Driver 2, Adc Lab [facility] 1.2.840.114 [id number] Univers 13:15:00 13:30:00 Visit Joon Woody 350.1.13. 10 ity of [facility] 4.2.7.2.[place] [phone] Id dical NAL 353 [facility] 2022-01-26 2022-01-26 Outpatient R RADIOLOGY [facility] ERT [id number] Univers 00:00:00 00:00:00 ity of [facility] 2022-01-26 2022-01-26 Telephone TOO Reinoso 1.2.273.493 [id number] Univers 00:00:00 00:00:00 Fercho MOHAMUD 350.1.13.10 ity of [facility] 4.2.7.2.686 Oren as [phone] [address] 2022-01-26 2022-01-26 Telephone Annalise [facility] 1.2.035.815 [id number] Univers 00:00:00 00:00:00 Joon HANDY 350.1.13.10 ity of [place] 4[place]2.[place].2.[place] [phone] Id dical NAL 059 [facility] 2022-01-20 2022-01-20 Telephone [facility] 1.2.601.349 [id number] 1789 Univers 00:00:00 00:00:00 Gus HANDY 350.1.13.10 ity of [place].2.[place] [id number] Id dical NAL 059 [facility] 2022-01-19 2022-01-19 Grab Driver 2, Adc Lab [facility] 1.2.840.114 [id number] Univers 13:15:00 13:30:00 Visit Gus Owens 350.1.13.10 ity of [place] 4[place].2.[place] [id number] Id dical NAL 353 [facility] 2022-01-19 2022-01-19 Outpatient R ROMAN [facility] [id number] Univers 13:15:00 13:15:00 GUS goetz o f [facility] 2022-01-12 2022-01-12 Mateo Gonsalez [facility] 1.2.840.114 [id number] Univers 00:00:00 00:00:00 [facility] 350.1.13.10 it y of [place] 4.2.7.2.686 Oren as OLIVIER?BLEA [phone] Id paulette ELAM 044 [facility] 2022-01-06 2022-01-06 Outpatient R ADITYA [facility] [id number] Univers 09:40:00 09:40:00 LUIS ity [facility] 2022-01-05 2022-01-05 Outpatient R ADITYA [facility] [id number] Univers 08:00:00 23:59:00 LUIS ity [facility] 2022-01-05 2022-01-05 Grab Driver 2, Adc Lab [facility] 1.2.840.114 [id number] Univers 10:45:00 11:00:00 Visit Luis BurgessHOLLY 350.1.13.10 ity of [facility] 4.2.7.2.[place] [phone] Id selinamaryellen NAL 353 [facility] 2022-01-05 2022-01-05 Office Ad[facility]aCL[facility] 1.2.840.114 [id number] Univers 09:40:00 10:41:23 Visit Luis HANDY 350.1.13.10 i ty of [facility] 4.2.7.2.[place] [id number] Id dicmaryellen NAL 059 [facility] 2022-01-05 2022-01-05 Telephone [facility]CL[facility] 1.2.464.778 [id number] Univers 00:00:00 00:00:00 Gus HANDY 350.1.13.10 ity of [place] 4[place]2.7.2.[place] [phone] Id dical NAL 059 [facility] 2021-12-30 2021-12-30 Outpatient DMG DMG [id number] 202 Devoted 00:00:00 00:00:00 [address] Medica l Group 2021-12-22 2021-12-22 Telephone [facility] 1.2.710.645 [id number] Univers 00:00:00 00:00:00 Joon HANDY 350.1.13.10 ity of [place] 4[place]2.7.2.[place] 692.0755924 Id dical NAL 059 [facility] 2021-12-21 2021-12-21 Grab Driver 2, Adc Lab [facility] 1.2.840.114 [id number] Univers 10:00:00 10:37:48 Visit Joon Woody 350.1.13. 10 ity of [place] 4.2.7.2.[place] [id number] Id dical NAL 353 [facility] 2021-12-21 2021-12-21 Outpatient [facility] [id number] Univers 10:00:00 10:00:00 [facility] 2021-12-08 2021-12-08 Office [facility]CL[facility] 1.2.840.114 [id number] Univers 14:30:00 15:00:[address] [facility] 350.1.13.10 i ty of [place] 4.2.7.2.686 [facility] - [phone] [address] 2021-12-08 2021-12-08 Outpatient R [facility] [id number] Univers 14:30:00 14:30:00 GERA ogetz [facility] 2021-12-01 2021-12-01 Grab Driver 2, Adc Lab [facility] 1.2.840.114 [id number] Univers 10:45:00 10:55:17 Visit Joon Woody 350.1.13. 10 ity [facility] 4.2.7.2.[place] [id number] Id [facility] 353 [facility] 2021-12-01 2021-12-01 Outpatient R [facility] [id number] Univers 10:00:00 10:41:44 SENDIL sofy [facility] 2021-12-01 2021-12-01 Office [facility] 1.2.840.114 [id number] Univers 10:00:00 10:41:44 Visit Joon HANDY 350.1.13.10 ity [facility] 4.2.7.2.[place] [id number] Id dical NAL 059 [facility] 2021-12-01 2021-12-01 Outpatient R ANNALISE [facility] [id number] Univers 10:00:00 10:00:00 SENDIL [facility] 2021-11-25 2021-11-25 Outpatient R GEOFFREY [facility] [id number] Univers 14:00:00 14:00:00 PENNY [facility] 2021-11-24 2021-11-25 Emergency [facility]CL[facility] 1.2.840.114 [id number] Univers 20:21:00 01:33:00 Val HANDY 350.1.13.10 ity [place].2.7.2.[place] [phone] [place] 217534 [place] 2021-11-25 2021-11-25 Telephone MarkCLOVIS [facility] 1.2.985.707 [id number] Univers 00:00:00 00:00:00 Calvin [employer] 350.1.13.10 ity of [place] [id number] [address] OFFICE BUILDING 2021-11-24 2021-11-24 Grab Driver Draw, Clc-Bls Lab [facility] 1.2.8 40.114 [id number] Univers 11:30:00 11:45:00 Visit Mark [employer] 350.1.13.10 ity of [place].2.[place] [phone] [facility] [address] OFFICE BUILDING 2021-11-24 2021-11-24 Outpatient R [facility] [id number] Univers 11:30:00 11:30:00 [facility] 2021-11-24 2021-11-24 Office FloresCL[facility] 1.2.840.114 [id number] Univers 10:00:00 10:40:00 Visit Calvin [employer] 350.1.13.10 ity of [place] [id number] [address] OFFICE BUILDING 2021-11-24 2021-11-24 Outpatient R [facility] [id number] Univers 10:00:00 10:00:00 ity [facility] 2021-11-24 2021-11-24 Outpatient [facility] [id number] Univers 10:00:00 10:00:00 CALVIN [facility] 2021-11-24 2021-11-24 Outpatient R MARK [facility] ERT [id number] Univers 10:00:00 10:00:00 CALVIN [facility] 2021-11-24 2021-11-24 Telephone Geovanni Lorraine GAGE 1.2.840.114 [id number] Univers 00:00:00 00:00:00 [place] 350.1.13.10 it y of [facility] 4.2.7.2.686 Oren as [id number] [address] 2021-11-23 2021-11-23 Office Sun[facility]CLOV[facility] 1.2.840.114 [id number] Univers 15:15:00 15:30:00 Visit [facility] 350.1.13.10 it y of [facility] 4.2.7.2.686 Oren as OLIVIER?BLEA [id number] [address] MEDICAL OFFICE BUILDING 2021-11-23 2021-11-23 Outpatient R SUNSHINE [facility] [id number] Univers 15:15:00 15:15:00 JOSE JUAN [facility] 2021-11-22 2021-11-22 Outpatient R NINA [facility] [id number] Univers 13:30:00 13:30:00 HANNAH [facility] 2021-11-21 2021-11-21 Outpatient R GEOFFREY [facility] [id number] Univers 14:00:00 14:00:00 PENNY [facility] 2021-11-11 2021-11-11 Outpatient R ANNALISE [facility] [id number] Univers 13:00:00 15:09:30 ASHOKIL [facility] 2021-11-11 2021-11-11 Office An[facility]CL[facility] 1.2.840.114 [id number] Univers 13:00:00 15:09:30 Visit Sendil [facility] [place] 350.1.13.10 ity [facility] 4.2.7.2.[place] [id number] Id selinamaryellen EMMANUELLE [address] [facility] 2021-11-11 2021-11-11 Outpatient R ADITYA [facility] [id number] Univers 08:20:00 08:20:00 LUIS ity [facility] 2021-11-10 2021-11-10 Grab Driver 2, Adc Lab [facility] 1.2.840.114 [id number] Univers 13:15:00 13:30:00 Visit Joon Woody 350.1.13. 10 ity [facility] [id number] [place] [phone] [facility] 353 [facility] 2021-11-10 2021-11-10 [facility] [id number] Univers 13:15:00 13:15:00 [facility]-11[facility]03 2021-11-03 Outpatient R [facility] [id number] Univers 09:20:00 09:20:00 ity [facility] 2021-10-28 2021-10-28 Outpatient R SUNSHINE [facility] [id number] Univers 14:00:00 14:00:00 JOSE JUAN [facility] 2021-10-24 2021-10-24 Outpatient R JUVENCIO LUNA [facility] [id number] Univers 11:20:00 12:02:42 JUVENCIO LUNA [facility] 2021-10-24 2021-10-24 [facility] 1.2.840.114 [id number] Univers 11:20:00 12:02:[address] [id number] [facility] [id number] Oren as OLIVIER?BLEA [phone] Id selinamaryellen PAPA 092 [facility] OFFICE BUILDING 2021-10-20 2021-10-20 Outpatient R MORGAN MAC [facility] AVNI [id number] Univers 06:35:00 10:05:00 ity [facility] 2021-10-20 2021-10-20 Hospital Morgan Mac [facility] 1.2.840.114 [id number] Univers 06:35:00 10:05:00 Encounter [facility] [id number] it[place] [id number] [place] [facility] [phone] [address] ([facility]) 2021-10-20 2021-10-20 Surgery Morgan Mac [facility] [id number] Univers 08:00:00 09:00:00 [facility] [id number] ity of CARE [id number] [facility] [place] AT [phone] Id dicmaryellen VICTORY 020 [facility] 2021-10-17 2021-10-17 Grab Driver 2, Adc Lab [facility] 1.2.840.114 [id number] Univers 15:30:00 15:45:00 Visit Luis Burgess [id number] ity of [place] 4.2.7.2.686 [phone] Id dicmaryellen NAL 353 [facility] 2021-10-17 2021-10-17 Outpatient Florence BURGESS [facility] [id number] Univers 15:30:00 15:30:00 LUIS ity of [facility] 2021-10-17 2021-10-17 Laboratory Only, Adc Test [facility] 1.2.840. 114 [id number] Univers 10:30:00 10:45:00 Only Wild Kamara [id number] [facility] [id number] [facility] [phone] [facility] [address] 2021-10-17 2021-10-17 Orders Doctor TOO 1.2.840.114 [id number] Univers 00:00:00 00:00:00 Only UnassignedCADE [id number] ity of [place] [facility] 4.2.7.2.686 O[place] [id number] [facility] [address] 2021-09-30 2021-09-30 [facility] [id number] Univers 13:00:00 13:00:00 LUIS ity [facility] 2021-09-28 2021-09-28 [facility]phone [facility] [id number] Univers 00:00:00 00:00:00 Joon HANDY 350.1.13.10 ity of [facility] [place] [phone] Id selinamaryellen EMMANUELLE [address] [place] [address] 2021-09-27 2021-09-27 Outpatient R NINA [facility] [id number] Univers 15:30:00 15:30:00 WENTONG ity [facility] [place] 2021-09-22 2021-09-22 [facility] 1.2.840.114 [id number] Univers 00:00:00 00:00:00 [facility] 350.1.13.10 ity of [place] 4.2.7.2.686 Oren as OLIVIER?BLEA [phone] Id dicmaryellen KNEY [address] [place] [address] OFFICE [facility] 2021-09-19 2021-09-19 Patient [facility] 1.2.840.114 [id number] Univers 00:00:00 00:00:00 Secure Ms Luis HEALTH 350.1.13.10 it[place] of [place] [phone] [address] 2021-09-19 2021-09-19 Patient [facility] 1.2.840.114 [id number] Univers 00:00:00 00:00:00 Secure Ms Luis HEALTH 350.1.13.10 it[place] of [place] [phone] [address] OFFICE [facility] 2021-09-16 2021-09-16 Outpatient R ADITYA [facility] [id number] Univers 13:30:00 23:59:00 LUIS ity of [facility] 2021-09-16 2021-09-16 [facility] [id number] Univers 13:30:00 13:30:00 LUIS ity of [facility] 2021-09-16 2021-09-16 Grab Driver 2, Adc Lab [facility] 1.2.840.114 [id number] Univers 13:15:00 13:30:00 Visit Joon Woody 350.1.13. 10 ity of [facility] 4.2.[place] [phone] Id paulette HANDLEY [address] [place] [address] 2021-09-16 2021-09-16 Prep For [facility] 1.2.840.114 [id number] Univers 00:00:00 00:00:00 Surgery Zhu SPECIALTY 350.1.13.10 it[place] [phone] Id paulette [address] 2021-09-15 2021-09-15 Telephone [facility] 1.2.866.089 [id number] Univers 00:00:00 00:00:00 Marko SPECIALTY 350.1.13.10 it[place] [phone] Id paulette [address] 2021-09-09 2021-09-09 Outpatient Florence WOODY [facility] [id number] Univers 13:30:00 13:30:00 SENDIL ity [facility] [place] 2021-09-09 2021-09-09 Outpatient Florence WOODY [facility] [id number] Univers 13:30:00 13:30:00 [facility] 2021-09-08 2021-09-08 Telephone [facility] 1.2.084.058 [id number] Univers 00:00:00 00:00:00 Zhu SPECIALTY 350.1.13.10 it[place] of [place] [phone] Id paulette [address] 2021-09-07 2021-09-07 Orders Doctor GAGE 1.2.840.114 [id number] Univers 00:00:00 00:00:00 Only Unassigned, CADE 350.1.13.10 ity of [place] [facility] 4.2.7.2.686 Oren as [phone] [address] 2021-09-06 2021-09-06 Telephone Annalise [facility] 1.2.075.227 [id number] Univers 00:00:00 00:00:00 Ashoksissy KrishnamurthyNils HANDY 350.1.13.10 ity of [place].2.[place] [phone] Id paulette [facility] 059 [facility] 2021-09-02 2021-09-02 Outpatient R ADITYA [facility] [id number] Univers 15:00:00 15:00:00 LUIS ity [facility] [place] 2021-09-02 2021-09-02 [facility] [id number] Univers 15:00:00 15:00:00 [facility] 2021-09-02 2021-09-02 Telephone [facility] 1.2.377.352 [id number] Univers 00:00:00 00:00:00 Marko SPECIALTY 350.1.13.10 it[place] [phone] Id paulette [address] 2021-09-02 2021-09-02 Telephone Kiah [facility] 1.2.293.536 [id number] 8402 Univers 00:00:00 00:00:00 Marko SPECIALTY 350.1.13.10 it[place] of [place]2.[place].2.[place] [phone] Id paulette ORTIZ [address] [place] [address] 2021-09-02 2021-09-02 Telephone [facility] 1.2.688.323 [id number] Univers 00:00:00 00:00:00 Marko SPECIALTY 350.1.13.10 it[place] of [place]2.[place]2.[place] [phone] Id paulette [address] 2021-09-01 2021-09-01 Grab Driver Vls-Lab [facility] 1.2.840.114 [id number] Univers 13:15:00 13:30:00 Visit Marko Dupont SPECIALTY 350.1.13.10 it[place].2.[place].2.[place] [phone] Id paulette CARTERApril 353 [facility] 2021-09-01 2021-09-01 Outpatient R MARKO DUPONT [facility] 1 [id number] Univers 13:15:00 13:15:00 MARKO DUPONT [facility] 2021-09-01 2021-09-01 Office Kiah [facility] 1.2.840.114 [id number] Univers 11:00:00 11:30:00 Visit Marko SPECIALTY 350.1.13.10 it[place] of [place]2.[place] [phone] Id selinamaryellen ORTIZ [address] [place] [address] 2021-09-01 2021-09-01 Office Kiah [facility] 1.2.840.114 [id number] Univers 11:00:00 11:30:00 Visit Marko SPECIALTY 350.1.13.10 it[place] of [place] 4[place]2.[place].2.[place] [phone] Id paulette ORTIZ [address] [place] [address] 2021-09-01 2021-09-01 Outpatient R MARKO DUPONT [facility] 1 [id number] Univers 11:00:00 11:00:00 MARKO DUPONT [facility] 2021-09-01 2021-09-01 Outpatient R MARKO DUPONT [facility] 1 [id number] Univers 11:00:00 11:00:00 [facility] 2021-08-29 2021-08-29 Office Annalise [facility] 1.2.840.114 [id number] Univers 11:30:00 11:53:59 Visit Joon HANDY 350.1.13.10 ity [facility] 4.2.7.2.[place] [phone] Id paulette HANDLEY 059 [facility] 2021-08-29 2021-08-29 Outpatient R ANNALISE AKCLARBIEL [facility] [id number] Univers 11:30:00 11:53:59 SENDIL sofy [facility] 2021-08-29 2021-08-29 Grab Driver 2, Adc Lab [facility] 1.2.840.114 [id number] Univers 11:15:00 11:30:00 Visit Joon Woody 350.1.13. 10 ity of [place].2.[place] [id number] Id dical NAL 353 [facility] 2021-08-29 2021-08-29 Outpatient [facility] [id number] [facility] 11:15:00 11:15:00 SENDIL ity of [facility] 2021-08-23 2021-08-23 Refill [facility] 1.2.840.114 [id number] Univers 00:00:00 00:00:00 Joon HANDY 350.1.13.10 ity of [place] 4.2.7.2.[place] [phone] Id dicfl NAL [address] [place] [address] 2021-08-21 2021-08-21 Refill [facility] 1.2.840.114 [id number] [facility] 00:00:00 00:00:00 Joon HANDY 350.1.13.10 ity of [place] 4.2.7.2.[place] [phone] [facility] NAL 059 [facility] 2021-08-20 2021-08-20 [facility] 1.2.622.334 [id number] [id number] Univers 00:00:00 00:00:00 Gus HANDY 350.1.13.10 ity of [place].2.[place] [phone] Id dical NAL 059 [facility] 2021-08-19 2021-08-19 Grab Driver 2, Adc Lab [facility] 1.2.840.114 [id number] Univers 14:45:00 15:00:00 Visit Joon Woody 350.1.13. 10 ity of [place] 4.2.7.2.[place] [phone] Id dical NAL 353 [facility] 2021-08-19 2021-08-19 Outpatient R ANNALISE [facility] [id number] Univers 14:45:00 14:45:00 SENDIL ity [facility] [place] 2021-08-13 2021-08-13 Telephone [facility] 1.2.584.523 [id number] Univers 00:00:00 00:00:00 Gus HANDY 350.1.13.10 ity of [place] 4.2.7.2.686 [place] [id number] Id dical NAL 9 [facility] 2021-08-12 2021-08-12 Grab Driver 2, Adc Lab [facility] 1.2.840.114 [id number] Univers 14:45:00 15:00:00 Visit Joon Woody 350.1.13. 10 ity of [facility] 4.2.7.2.[place] [phone] Id dical NAL 353 [facility] 2021-08-12 2021-08-12 Outpatient R ANNALISE [facility] [id number] Univers 14:45:00 14:45:00 [facility] 2021-08-10 2021-08-10 Refill [facility] 1.2.840.114 [id number] Univers 00:00:00 00:00:00 Sendil Lauren HANDY 350.1.13.10 ity of [facility] 4.2.7.2.[place] [phone] Id dical NAL 9 [facility] 2021-08-10 2021-08-10 Orders Doctor TOO 1.2.840.114 [id number] Univers 00:00:00 00:00:00 Only Unassigned, CADE 350.1.13.10 ity of [place] [facility] 4.2.7.2.686 Oren as [phone] [address] 2021-08-07 2021-08-07 Telephone [facility] 1.2.718.985 [id number] 0739 Univers 00:00:00 00:00:00 Gus HANDY 350.1.13.10 ity of [place] 4.2.7.2.[place] [id number] Id dical NAL 059 [facility] 2021-08-01 2021-08-01 Grab Driver 2, Adc Lab [facility] 1.2.840.114 [id number] Univers 13:00:00 13:15:00 Visit Joon Woody 350.1.13. 10 it[place] of [place] 4.2.7.2.[place] [phone] Id dical NAL 353 [facility] 2021-08-01 2021-08-01 Out[facility] [id number] Univers 13:00:00 13:00:00 SENDIL [facility] 2021-07-31 2021-07-31 Telephone Annalise [facility] 1..001.736 [id number] Univers 00:00:00 00:00:00 Sendsissy HANDY 350.1.13.10 ity of [facility] 4.2.7.2.[place] [phone] Id dicfl NAL [address] [place] [address] 2021-07-29 2021-07-29 Outpatient R JUVENCIO LUNA [facility] [id number] Univers 14:49:16 23:59:00 JUVENCIO LUNA [facility] 2021-07-29 2021-07-29 Outpatient JUVENCIO GARCIA [facility] [id number] Univers 14:49:16 23:59:00 JUVENCIO LUNA [facility] 2021-07-29 2021-07-29 [facility] 1..405.888 1966 3502 Univers 14:49:16 23:59:00 Encounter Juvencio Christo HANDY 350.1.13.10 ity of [facility] 4.2.7.2.[place] [phone] [address] 2021-07-29 2021-07-29 Grab Driver 2, Adc Lab [facility] 1.2.840.114 [id number] Univers 14:00:00 14:15:00 Visit Jose Juan Gonsalez 350.1.1 3.10 ity of Unknown, Attending [place] 4.2.7.2.686 [place] PROFESSIO [phone] Id paulette [facility] 353 [facility] 2021-07-29 2021-07-29 Office Sunshine [facility] 1.2.840.114 [id number] Univers 13:15:00 13:30:00 Visit [facility] 350.1.13.10 it y of [place] 4.2.7.2.686 Oren as OLIVIER?BLEA [phone] [address] OFFICE [facility] 2021-07-29 2021-07-29 Outpatient R SUNSHINE [facility] [id number] Univers 13:15:00 13:15:00 [facility] 2021-07-29 2021-07-29 Outpatient R SUNSHINE [facility] [id number] Univers 13:15:00 13:15:00 [facility] 2021-07-25 2021-07-25 Office Aftab Perdomo [facility] 1.2.840.11 4 [id number] Univers 15:30:00 16:30:00 Visit Karan Turner [facility] 350.1.13. 10 ity of [facility] 4.2.7.2.[place] [phone] [address] 2021-07-25 2021-07-25 Outpatient Florence TURNER [facility] [id number] Univers 15:30:00 15:30:00 [facility] 2021-07-25 2021-07-25 Outpatient Florence TURNER [facility] [id number] Univers 15:30:00 15:30:00 [facility] 2021-07-25 2021-07-25 Telephone [facility] 1.2.840.114 [id number] Univers 00:00:00 00:00:00 [facility] 350.1.13.10 it y of [place] 4.2.7.2.686 Oren as OLIVIER?BLEA [phone] [address] 2021-07-22 2021-07-22 Outpatient JUVENCIO GARCIA [facility] [id number] Univers 13:40:00 14:19:02 JUVENCIO LUNA ity of [facility] 2021-07-22 2021-07-22 Office Clara [facility] 1.2.840.114 [id number] [facility] 13:40:00 14:19:02 Visit Juvencio [facility] 350.1.13.10 ity of [place] 4.2.7.2.686 Oren as OLIVIER?BLEA [phone] Id dicfl PAPA [address] [place] MEDICAL OFFICE [facility] 2021-07-20 2021-07-20 Patient Stanely [facility] 1.2.840.114 [id number] Univers 00:00:00 00:00:00 Secure Msg [place] HEALTH 350.1.13.10 ity of [place] 4.2.7.2.686 Oren as OLIVIER?BLEA [phone] [facility] 044 [facility] OFFICE [facility] 2021-07-20 2021-07-20 Patient Doctor TOO 1.2.840.114 [id number] Univers 00:00:00 00:00:00 Secure Msg Unassigned, CADE 350.1.13.10 [facility] 4.2.7.2.686 Oren as [phone] [address] 2021-07-20 2021-07-20 Patient Stanley [facility] 1.2.840.114 [id number] Univers 00:00:00 00:00:00 Secure Msg [place] HEALTH 350.1.13.10 ity of [place] 4.2.7.2.686 Oren as OLIVIER?BLEA [phone] [address] OFFICE [facility] 2021-07-20 2021-07-20 Telephone Sunshine [facility] 1.2.840.114 [id number] Univers 00:00:00 00:00:00 Jose Juan HEALTH 350.1.13.10 it y of [place] [facility] 4.2.7.2.686 Oren as OLIVIER?BLEA [phone] [address] OFFICE [facility] 2021-07-20 2021-07-20 Patient Doctor [facility] 1.2.840.114 [id number] Univers 00:00:00 00:00:00 Secure Msg Unassigned, HEALTH 350.1.13.10 ity of [place] 4.2.7.2.686 Oren as OLIVIER?BLEA [phone] [address] MEDICAL OFFICE BUILDING 2021-07-18 2021-07-18 Telephone Sunshine [facility] 1.2.840.114 [id number] Univers 00:00:00 00:00:00 Jose Juan [facility] 350.1.13.10 it y of [place] 4.2.7.2.686 Oren as OLIVIER?BLEA [phone] [address] MEDICAL OFFICE [facility] 2021-07-15 2021-07-15 Transition BHAVESH Henry 1.2.840.114 [id number] Univers 00:00:00 00:00:00 of Care Beata B FLORES 350.1.13.10 it y of [place].7.2.[place] [phone] [facility] [address] 2021-07-11 2021-07-14 Inpatient X TRICIA [facility] [id number] Univers 17:04:00 14:07:00 POPPY goetz [facility] 2021-07-11 2021-07-14 [facility] Raghu Richards [facility] 1.2.840.1 14 [id number] Univers 17:04:00 14:07:00 Encounter Moe Solorio 350.1.13.10 ity of [place] 4.2.7.2.686 [facility] [phone] [facility] [address] 2021-07-11 2021-07-14 Inpatient X TRICIA [facility] [id number] Univers 17:04:00 14:07:00 POPPY goetz [facility] 2021-07-11 2021-07-11 Transition BHAVESH Henry 1.2.840.114 [id number] Univers 00:00:00 00:00:00 of Care Beata B FLOR[place] 350.1.13.10 [place] y of [place]2.7.2.[place] [phone] [facility] [address] 2021-07-04 2021-07-08 [facility] Jay Jay Garcia [facility] 1.2.840.1 14 [id number] Univers 10:42:00 16:45:00 Encounter Hardik Kate 350.1.13.10 ity of [place] 4.2.7.2.686 [facility] [phone] [facility] [address] 2021-07-02 2021-07-02 Emergency X [facility] ERT [id number] Univers 13:13:00 15:09:00 JESSICA ity [facility] 2021-07-02 2021-07-02 Emergency [facility] 1.2.603.442 [id number] Univers 13:13:00 15:09:00 Jessica HANDY 350.1.13.10 i ty fern [place] 4.2.7.2.[address] [place] [phone] 2021-07-02 2021-07-02 Emergency [facility] [id number] Univers 13:13:00 15:09:00 JESSICA ity [facility] 2021-07-01 2021-07-01 [facility] 1.2.840.114 [id number] Univers 09:22:20 23:59:00 Encounter Joon HANDY 350.1.13.10 ity fern [place] 4.2.7.2.[address] [place] [phone] 2021-07-01 2021-07-01 Out[facility] [id number] Univers 11:30:00 11:30:00 SENDIL ity [facility] 2021-07-01 2021-07-01 Outpatient [facility] [id number] Univers 11:30:00 09:21:00 SENDIL itapril [facility] 2021-07-01 2021-07-01 [facility] 1.2.840.114 [id number] Univers 09:20:17 09:21:00 Encounter Joon HANDY 350.1.13.10 ity fern [place] [address] [place] [address] [phone] [place] 694795 [place] 2021-06-29 2021-06-29 Grab Driver Lab, Ang - Db [facility] 1.2.840.1 14 [id number] Univers 15:30:00 15:45:00 Visit Jose Juan Gonsalez [facility] 350.1.13 .10 ity of [facility] 4.2.7.2.686 Oren as OLIVIER?BLEA [phone] Id dicmaryellen RIVERA 353 [facility] 2021-06-29 2021-06-29 Outpatient R [facility] [id number] Univers 15:30:00 15:30:00 [facility] 2021-06-29 2021-06-29 Outpatient R [facility] [id number] Univers 14:30:00 15:01:03 [facility] 2021-06-29 2021-06-29 Office [facility] 1.2.840.114 [id number] Univers 14:30:00 15:01:03 Visit [facility] 350.1.13.10 it y of [place] 4.2.7.2.686 Oren as OLIVIER?BLEA [phone] Id paulette RIVERA 044 [facility] 2021-06-29 2021-06-29 Grab Driver 2, Adc Lab [facility] 1.2.840.114 [id number] Univers 14:15:00 14:30:00 Visit Joon Woody 350.1.13. 10 ity [facility] 4.2.7.2.[place] [phone] Id dical NAL [address] [place] [address] 2021-06-29 2021-06-29 Grab Driver 2, Adc Lab [facility] 1.2.840.114 [id number] Univers 14:15:00 14:30:00 Visit Joon Woody 350.1.13. 10 ity of [facility] 4.2.7.2.[place] [phone] Id dical NAL [address] [place] [address] 2021-06-23 2021-06-23 Patient Doctor [facility] 1.2.840.114 [id number] Univers 00:00:00 00:00:00 Secure Msg Unassigned, OLE 350.1.13.10 ity of [place].2.7.2.[place] [phone] Id dicfl NAL 9 [facility] 2021-06-20 2021-06-20 Transition BHAVESH Henry 1.2.840.114 [id number] Univers 00:00:00 00:00:00 of Care Beata FLORES 350.1.13.10 it y of [place] 4.2.7.2.686 [place] [phone] [facility] [address] 2021-06-18 2021-06-18 Refill [facility] 1.2.840.114 [id number] Univers 00:00:00 00:00:00 Joon HANDY 350.1.13.10 ity of [place].2.[place] [id number] [address] 2021-06-14 2021-06-17 [facility] [id number] Univers 16:51:00 16:40:00 ADNAN ity [facility] 2021-06-14 2021-06-17 Emergency MarlaMichaelaniyah Henriquez [facility] 1.2.840. 114 [id number] Univers 16:51:00 16:40:00 Shannon Ely 350.1.13.10 ity of [place].2.[place] [phone] [facility] [address] [place] 2021-06-17 2021-06-17 Outpatient R ADITYA [facility] [id number] Univers 10:20:00 10:20:00 LUIS ity [facility] 2021-06-14 2021-06-14 Outpatient [facility] AVNI [id number] Univers 16:51:00 16:51:00 ADNAN ity [facility] 2021-06-14 2021-06-14 Telephone [facility] 1.2.289.700 [id number] Univers 00:00:00 00:00:00 Joon HANDY 350.1.13.10 ity of [place].2.[place] [phone] [facility] [address] [facility] 2021-06-10 2021-06-10 [id number] [id number] Univers 16:00:00 16:32:09 ARIELLE, ity of [facility] 2021-06-10 2021-06-10 Office Cecy MENENDEZ 1.2.840.114 [id number] Univers 16:00:00 16:32:09 Visit Arielle PEDIATRIC 350.1.13.10 ity of [facility] S [facility] 4.2.7.2.[place] [phone] [place] [address] [facility] 2021-06-10 2021-06-10 Outpatient R [facility] [id number] Univers 16:00:00 16:00:00 ARIELLE, ity of [facility] 2021-06-10 2021-06-10 Orders Doctor GAGE 1.2.840.114 [id number] Univers 00:00:00 00:00:00 Only Unassigned, CADE 350.1.13.10 [facility] 4.2.7.2.686 Oren as [phone] [place] [address] [address] 2021-06-06 2021-06-06 Outpatient R ANNALISE [facility] [id number] Univers 15:00:00 23:59:00 SENDIL ity [facility] 2021-06-06 2021-06-06 [facility] [id number] Univers 15:00:00 15:00:00 SENDIL ity [facility] 2021-06-06 2021-06-06 Outpatient R ANNALISE [facility] [id number] Univers 13:30:00 14:33:23 SENDIL ity [facility] 2021-06-06 2021-06-06 Office [facility] 1.2.840.114 [id number] Univers 13:30:00 14:33:23 Visit Joon HANDY 350.1.13.10 ity of [place].7.2.[place] [phone] Id dical NAL 059 [facility] 2021-06-06 2021-06-06 Outpatient R ANNALISE [facility] [id number] Univers 13:30:00 14:33:23 SENDIL ity of [facility] 2021-06-06 2021-06-06 Grab Driver 2, Adc Lab [facility] 1.2.840.114 [id number] Univers 13:15:00 13:15:00 Visit Joon Woody 350.1.13. 10 [place]y of [place].2.[place] [id number] [facility] 353 [facility] 2021-06-03 2021-06-03 Outpatient [facility] [id number] Univers 11:00:00 11:00:00 LUIS ity of [facility] 2021-06-03 2021-06-03 Telephone Annalise [facility] [id number] Univers 00:00:00 00:00:00 Joon HANDY 350.1.13.10 ity of [place] [id number] Id dicfl NAL 059 [facility] 2021-05-30 2021-05-30 Orders Doctor TOO 1.2.840.114 [id number] Univers 00:00:00 00:00:00 Only Unassigned, CADE 350.1.13.10 ity of [place] [facility] 4.2.7.2.686 [place] as [phone] [address] 2021-05-25 2021-05-25 Grab Driver 2, Adc Lab [facility] 1.2.840.114 [id number] Univers 14:00:00 14:15:00 Visit Joon oWody 350.1.13. 10 [place] [id number] Id dical NAL 353 [facility] 2021-05-25 2021-05-25 Outpatient R ANNALISE [facility] [id number] Univers 14:00:00 14:00:00 SENDIL ity [facility] [place] 2021-05-25 2021-05-25 [facility] [id number] Univers 00:00:00 00:00:00 Luis [place] 350.1.13.10 i ty [place] [id number] Id dical NAL 059 [facility] 2021-05-25 2021-05-25 [facility] [id number] Univers 00:00:00 00:00:00 Luis [place] 350.1.13.10 i ty [place] [id number] Id dical NAL 059 [facility] 2021-05-16 2021-05-16 Yong Woody [facility] 1.2.489.151 [id number] Univers 00:00:00 00:00:00 Joon HANDY 350.1.13.10 [place] [id number] Id dicfl NAL 059 [facility] 2021-05-11 2021-05-11 Grab Driver 2, Adc Lab [facility] 1.2.840.114 [id number] Univers 14:45:00 15:00:00 Visit Joon Woody 350.1.13. 10 [place] [phone] [facility] NAL 353 [facility] 2021-05-11 2021-05-11 Outpatient R ANNALISE [facility] [id number] Univers 14:45:00 14:45:00 SENDIL ity [facility] [place] 2021-05-10 2021-05-10 Yong Woody [facility] [id number] Univers 00:00:00 00:00:00 Joon HANDY 350.1.13.10 [place] [id number] Id dical NAL [address] [facility] 2021-05-09 2021-05-09 Hospital JEFF Burgess 1.2.840.114 [id number] Univers 00:00:00 23:59:00 Encounter Luis MOHAMUD 350.1.13.10 ity of [facility] 4.2.7.2.686 [place] as [phone] [facility] [address] 2021-05-09 2021-05-09 Outpatient R [facility] [id number] Univers 00:00:00 23:59:00 ity of [facility] 2021-05-09 2021-05-09 Outpatient ADITYA [facility] [id number] Univers 00:00:00 00:00:00 LUIS ity [facility] [place] 2021-05-03 2021-05-03 Grab Driver Draw, Clc-Bls Lab [facility] 1.2.8 40.114 [id number] Univers 11:15:00 11:30:00 [facility] 350.1.13.10 [place] of [place] [phone] [facility] [address] OFFICE BUILDING 2021-05-03 2021-05-03 Outpatient R MICHAEL [facility] [id number] Univers 11:15:00 11:15:00 [facility]-05-03 2021-05-03 [facility] 1.2.840.114 [id number] Univers 10:15:00 11:00:00 Visit [facility] 350.1.13.10 it y of [place] [id number] [facility] [address] OFFICE BUILDING 2021-05-03 2021-05-03 Outpatient R MICHAEL [facility] [id number] Univers 10:15:00 10:15:00 SINJU ity [facility] 2021-04-26 2021-04-26 Outpatient R ANNALISE [facility] [id number] Univers 14:30:00 14:30:00 SENDIL ity [facility] 2021-04-26 2021-04-26 Grab Driver 2, Adc Lab [facility] 1.2.840.114 [id number] Univers 14:30:00 14:30:00 Visit Joon WoodyLambertoMaria A HANDY 350.1.13. 10 it[place] of [place] [id number] Id selinamaryellen EMMANUELLE 353 [facility] 2021-04-21 2021-04-21 Telephone [facility] 1.2.469.631 [id number] Univers 00:00:00 00:00:00 Joon Aguilar OLE 350.1.13.10 it[place] of [place].2.[place] [phone] Id dicmaryellen HANDLEY 059 [facility] 2021-04-19 2021-04-19 Outpatient R MEHNAZ RODRIGUEZ [facility] 10 [id number] Univers 11:30:00 13:45:03 MEHNAZ RODRIGUEZ i ty of [facility] 2021-04-19 2021-04-19 Office Danilo [facility] 1.2.840.114 [id number] Univers 11:30:00 12:00:00 Visit Mehnaz HANDY 350.1.13.10 i ty of [facility] 4.2.7.2.[place] [id number] Id paulette HANDLEY 085 [facility] 2021-04-19 2021-04-19 Outpatient R MEHNAZ RODRIGUEZ [facility] 10 [id number] Univers 11:30:00 11:30:00 MEHNAZ RODRIGUEZ i ty of [facility] 2021-04-19 2021-04-19 Outpatient R SUNSHINE [facility] [id number] Univers 10:00:00 10:52:24 JOSE JUAN kingstony of [facility] 2021-04-19 2021-04-19 Office [facility] 1.2.840.114 [id number] Univers 10:00:00 10:52:24 Visit [facility] 350.1.13.10 it y of [place] [facility] 4.2.7.2.686 Oren as OLIVIER?BLEA [phone] Id paulette RIVERAEY 044 [facility] 2021-04-15 2021-04-15 Medhat Rodriguez [facility] 1.2.840.114 [id number] Univers 00:00:00 00:00:00 Management Mehnaz HANDY 350.1.13.10 ity of [place] 4.2.7.2.[place] [phone] Id dical NAL 085 [facility] 2021-04-13 2021-04-13 Telephone RomuloYANIV 1.2.840.114 [id number] Univers 00:00:00 00:00:00 [facility] 350.1.13.10 i ty of [facility] 4.2.[place].2.[place] [phone] [address] 2021-04-12 2021-04-12 Outpatient R ANNALISE [facility] [id number] Univers 15:45:00 15:45:00 SENDIL ity [facility] [place] 2021-04-12 2021-04-12 Grab Driver 2, Adc Lab [facility] 1.2.840.114 [id number] Univers 15:45:00 15:45:00 Visit Joon Woody 350.1.13. 10 ity of [facility] 4.2.7.2.[place] [phone] Id paulette HANDLEY 353 [facility] 2021-04-12 2021-04-12 Office Annalise [facility] 1.2.840.114 [id number] Univers 14:30:00 15:31:53 Visit Joon HANDY 350.1.13.10 ity of [facility] 4.2.7.2.[place] [phone] Id dical NAL 059 [facility] 2021-04-12 2021-04-12 Outpatient R ANNALISE [facility] [id number] Univers 14:30:00 15:31:53 SENDIL itapril [facility] 2021-04-12 2021-04-12 Outpatient R ANNALISE [facility] [id number] Univers 14:30:00 14:30:00 SENDIL itapril [facility] 2021-04-12 2021-04-12 Patient Doctor [facility] 1.2.840.114 [id number] Univers 00:00:00 00:00:00 Secure Msg Unassigned, OLE 350.1.13.10 ity of [place] 4.2.7.2.[place] [phone] Id dicfl NAL 9 [facility] 2021-04-08 2021-04-08 [facility] [id number] Univers 09:03:48 23:59:00 LUIS ity of [facility] 2021-04-08 2021-04-08 [facility] [id number] Univers 09:03:48 23:59:00 LUIS ity of [facility] 2021-04-08 2021-04-08 [facility] 1.2.840.114 [id number] Univers 09:00:00 23:59:00 Encounter Luis ANGLEHOLLY 350.1.13.10 ity of [facility] 4.2.7.2.[place] [id number] [address] 2021-04-08 2021-04-08 Out[facility] [id number] Univers 09:03:48 09:03:48 LUIS ity of [facility] 2021-04-08 2021-04-08 Outpatient [facility] [id number] Univers 00:00:00 00:00:00 LUIS ity of [facility] 2021-04-08 2021-04-08 Telephone [facility] 1.2.869.602 [id number] Univers 00:00:00 00:00:00 Joon HANDY 350.1.13.10 ity of [facility] 4.2.7.2.[place] [phone] Id dicfl NAL [address] [place] [address] 2021-03-31 2021-03-31 Patient [facility] 1.2.840.114 [id number] Univers 00:00:00 00:00:00 Secure Msg Joon HANDY 350.1.13.10 ity of [facility] 4.2.7.2.[place] [phone] Me dical NAL 059 [facility] 2021-03-31 2021-03-31 Patient Annalise [facility] 1.2.840.114 [id number] Univers 00:00:00 00:00:00 Secure Msg Joon HANDY 350.1.13.10 ity of [facility] 4.2.7.2.[place] [id number] Id dical NAL 9 [facility] 2021-03-29 2021-03-29 Patient Annalise [facility] 1.2.840.114 [id number] Univers 00:00:00 00:00:00 Secure Msg Joon HANDY 350.1.13.10 ity of [facility] 4.2.7.2.[place] [phone] Id dicfl NAL 9 [facility] 2021-03-22 2021-03-22 Outpatient R ANNALISE [facility] [id number] Univers 11:00:00 11:01:17 JOON [facility] 2021-03-22 2021-03-22 Grab Driver 2, Adc Lab [facility] 1.2.840.114 [id number] Univers 11:00:00 11:01:17 Visit WoodyJoon 350.1.13. 10 ity of [facility] 4.2.7.2.[place] [phone] [facility] 353 [facility] 2021-03-11 2021-03-11 Outpatient R SUNSHINE [facility] [id number] Univers 11:00:00 11:16:39 JOSE JUAN [facility] 2021-03-11 2021-03-11 Outpatient R [facility] [id number] Univers 11:00:00 11:16:39 JOSE JUAN [facility] 2021-03-11 2021-03-11 Office [facility] 1.2.840.114 [id number] Univers 11:00:00 11:15:00 Visit [facility] 350.1.13.10 it y of [place] HANDY 4.2.7.2.686 Oren as OLIVIER?BLEA [phone] [facility] ELAM [address] MEDICAL OFFICE BUILDING 2021-03-10 2021-03-10 Outpatient R ANNALISE [facility] [id number] Univers 11:00:00 11:00:00 SENDIL ity [facility] [place] 2021-03-10 2021-03-10 Refill Aditya [facility] 1.2.840.114 [id number] Univers 00:00:00 00:00:00 Luis HEALTH 350.1.13.10 it y of [place].2.[place] [phone] [place] [address] OFFICE BUILDING 2021-03-07 2021-03-07 Outpatient R ANNALISE [facility] [id number] Univers 13:30:00 13:30:00 [facility] 2021-03-01 2021-03-01 Outpatient R ANNALISE [facility] [id number] Univers 09:30:00 09:30:00 SENDIL ity [facility] [place] 2021-03-01 2021-03-01 Grab Driver 2, Adc Lab [facility] 1.2.840.114 [id number] Univers 09:30:00 09:30:00 Visit Joon Woody 350.1.13. 10 it[place] of [place] 4.2.7.2.[place] [phone] Id paulette NAL 353 [facility] 2021-02-25 2021-02-25 Telephone [facility] 1.2.840.114 [id number] Univers 00:00:00 00:00:00 OLE Guzmán 350.1.13.10 ity of [place] 4.2.7.2.686 [place] [id number] Id dical NAL 059 [facility] 2021-02-25 2021-02-25 Telephone [facility] 1.2.840.114 [id number] Univers 00:00:00 00:00:00 BABS Guzmán 350.1.13.10 ity of Nella López [place] 4.2.7.2.[place] [phone] [facility] [address] OFFICE BUILDING 2021-02-15 2021-02-15 [id number] Univers 14:30:00 14:44:40 ARIELLEtheey of [facility] 2021-02-15 2021-02-15 [id number] Univers 14:30:00 14:44:40 ARIELLE itapril of [facility] 2021-02-15 2021-02-15 [facility] 1.2.840.114 [id number] Univers 14:04:14 14:44:40 Visit Arielle PEDIATRIC 350.1.13.10 ity of [place].2.7.2.[place] [phone] [facility] PRIMARY [address] CARE CLINIC 2021-02-14 2021-02-14 Grab Driver 2, Adc Lab [facility] 1.2.840.114 [id number] Univers 15:48:40 16:03:40 Visit Joon Woody 350.1.13. 10 ity of [place] 4.2.7.2.686 [place] [id number] [facility] [address] BUILDING 2021-02-14 2021-02-14 Outpatient R ANNALISE [facility] [id number] Univers 09:00:00 09:00:00 [facility] 2021-02-14 2021-02-14 Outpatient Florence [facility] [id number] Univers 09:00:00 09:00:00 SENDIL ity [facility] [place] 2021-02-14 2021-02-14 Telephone YANIV Sebastian 1.2.840.114 [id number] Univers 00:00:00 00:00:00 [facility] 350.1.13.10 i ty of [facility] 4.2.7.2.[place] [phone] [facility] [address] 2021-02-11 2021-02-11 Refill Annalise [facility] 1.2.840.114 [id number] Univers 00:00:00 00:00:00 Joon BROOKSHOLLY 350.1.13.10 ity of [facility] 4.2.7.2.[place] [phone] Id dical NAL 059 [facility] 2021-02-08 2021-02-08 Outpatient [facility] [id number] Univers 11:00:19 23:59:00 LUIS ity [facility] [place] 2021-02-08 2021-02-08 [facility] 1.2.840.114 [id number] Univers 11:00:19 23:59:00 Encounter Luislashonda [place] 350.1.13.10 ity of [place] 4.2.7.2.686 [place] [phone] Id dical NAL 844 [facility] 2021-02-08 2021-02-08 Office [facility] 1.2.840.114 [id number] Univers 10:58:26 11:18:26 Visit Luis OLE 350.1.13.10 i ty of [place] 4.2.7.2.686 [place] [phone] Id dicfl NAL 059 [facility] 2021-02-08 2021-02-08 Outpatient [facility] [id number] Univers 11:00:00 11:00:00 LUIS ity [facility] [place] 2021-02-07 2021-02-07 Outpatient [facility] [id number] Univers 13:00:00 13:00:00 NICOLE itapril [facility] 2021-01-31 2021-01-31 Office [facility] 1.2.840.114 [id number] Univers 14:05:00 15:05:41 Visit Nicole Katerina HANDY 350.1.13.10 ity of [place] 4.2.7.2.686 [place] [id number] Id dical NAL 204 [facility] 2021-01-31 2021-01-31 Outpatient [facility] [id number] Univers 14:00:00 15:05:41 NICOLE ity [facility] 2021-01-31 2021-01-31 Outpatient R VU [facility] [id number] Univers 14:00:00 14:00:00 INCOLE sofy [facility] 2021-01-31 2021-01-31 Outpatient R VU [facility] [id number] Univers 14:00:00 14:00:00 NICOLE sofy [facility] 2021-01-31 2021-01-31 Patient Aditya [facility] 1.2.840.114 [id number] Univers 00:00:00 00:00:00 Secure Msg Luis HEALTH 350.1.13.10 ity of [place] 4.2.[place].2.[place] [phone] [address] 2021-01-31 2021-01-31 Refill [facility] 1.2.840.114 [id number] Univers 00:00:00 00:00:00 Luis [place] 350.1.13.10 i ty of [place] 4.2.7.2.[place] [phone] Id dical NAL 059 [facility] 2021-01-21 2021-01-21 Grab Driver 2, Adc Lab [facility] 1.2.840.114 [id number] Univers 15:15:00 15:20:01 Visit Joon Woody 350.1.13. 10 ity of [place] 4.2.7.2.[place] [id number] Id dical NAL 353 [facility] 2021-01-21 2021-01-21 Grab Driver 2, [facility] Lab [facility] 1.2.840.114 [id number] Univers 15:13:15 15:20:01 Visit Joon Woody 350.1.13. 10 ity of [facility] 4.2.7.2.[place] [phone] Id dical [facility] 353 [facility] 2021-01-21 2021-01-21 Outpatient R ANNALISE [facility] [id number] Univers 15:15:00 15:15:00 SENDIL sofy [facility] 2021-01-18 2021-01-18 Telephone Annalise [facility] 1.2.053.448 [id number] Univers 00:00:00 00:00:00 Sendsissy K.HMaria A HEALTH 350.1.13.10 ity of [place] 4.2.7.2.[place] [phone] [facility] [address] OFFICE BUILDING 2021-01-17 2021-01-17 Outpatient R SUNSHINE [facility] [id number] Univers 14:30:00 14:51:27 JOSE JUAN ity [facility] [place] 2021-01-17 2021-01-17 Office [facility] 1.2.840.114 [id number] Univers 14:11:10 14:51:27 Visit [facility] 350.1.13.10 it y of [place] 4.2.7.2.686 Oren as OLIVIER?BLEA [phone] Id dical KNEY 044 [facility] OFFICE [facility] 2021-01-14 2021-01-14 Outpatient R MEHNAZ RODRIGUEZ [facility] 10 [id number] Univers 13:00:00 13:48:56 MEHNAZ RODRIGUEZ i ty [facility] [place] 2021-01-14 2021-01-14 Office [facility] 1.2.840.114 [id number] Univers 12:50:20 13:48:56 Visit Mehnaz HANDY 350.1.13.10 i ty of [facility] 4.2.7.2.[place] [id number] Id dical NAL 085 [facility] 2021-01-14 2021-01-14 Outpatient R MEHNAZ RODRIGUEZ [facility] 10 [id number] Univers 13:00:00 13:00:00 MEHNAZ RODRIGUEZ i ty of [facility] 2021-01-13 2021-01-13 Grab Driver 2, Adc Lab [facility] 1.2.840.114 [id number] Univers 11:26:25 11:41:25 Visit Joon Woody 350.1.13. 10 ity of [place] 4.2.7.2.686 [place] [id number] Id dical NAL 353 [facility] 2021-01-13 2021-01-13 Grab Driver 2, Adc Lab [facility] 1.2.840.114 [id number] Univers 11:26:25 11:32:58 Visit Joon Woody 350.1.13. 10 ity of [facility] 4.2.7.2.[place] [phone] [facility] 353 [facility] 2021-01-13 2021-01-13 Outpatient [facility] [id number] Univers 11:30:00 11:30:00 SENDIL ity [facility] 2021-01-13 2021-01-13 Office [facility] 1.2.840.114 [id number] Univers 10:00:25 11:07:05 Visit Joon HANDY 350.1.13.10 ity of [facility] 4.2.7.2.[place] [id number] [facility] 059 [facility] 2021-01-13 2021-01-13 Outpatient R ANNALISE [facility] [id number] Univers 10:00:00 11:07:05 SENDIL ity [facility] [place] 2021-01-13 2021-01-13 Refill [facility] 1.2.840.114 [id number] Univers 00:00:00 00:00:00 Joon HANDY 350.1.13.10 ity of [facility] 4.2.7.2.[place] [phone] [address] 2021-01-11 2021-01-11 Outpatient R ADITYA [facility] [id number] Univers 10:45:00 23:59:00 LUIS ity of [facility] 2021-01-11 2021-01-11 [facility] 1.2.840.114 [id number] Univers 10:45:00 23:59:00 Encounter [facility] 350.1.13.10 ity of [place] 4.2.7.2.[place] [id number] [facility] [address] OFFICE BUILDING 2021-01-11 2021-01-11 [facility] 1.2.840.114 [id number] Univers 09:35:03 23:59:00 Encounter Sendil K.H. HEALTH 350.1.13.10 ity of [place] 4.2.7.2.686 [place] [phone] [facility] [address] OFFICE BUILDING 2021-01-10 2021-01-10 Mateo GonsalezCLOV[facility] 1.2.840.114 [id number] Univers 00:00:00 00:00:00 [facility] 350.1.13.10 it y of [place] 4.2.7.2.686 Oren as OLIVIER?BLEA [id number] Id dical KNEY [address] MEDICAL OFFICE BUILDING 2021-01-07 2021-01-07 Transition Carl CONSTANTINEAniyah 1.2.840.114 [id number] Univers 00:00:00 00:00:00 of Care Beata FLORES 350.1.13.10 it y of [place] 4.2.7.2.[place] [id number] [facility] [address] 2021-01-05 2021-01-06 Outpatient X YECENIAMOCCASIN [facility] AVNI [id number] Univers 10:26:00 12:42:00 MOE ity of [facility] 2021-01-05 2021-01-06 Emergency HewittEarnestJessica [facility] 1.2.840. 114 [id number] Univers 10:26:00 12:42:00 Moe Solorio 350.1.13.10 ity of [place] 4.2.7.2.686 [place]ERT[place] [id number] [facility] [address] 2021-01-05 2021-01-06 Outpatient X [facility] AVNI [id number] Univers 10:26:00 12:42:00 MOE ity of [facility] 2021-01-06 2021-01-06 Telephone [facility] 1.2.389.789 [id number] Univers 00:00:00 00:00:00 Luis [facility] 350.1.13.10 i ty of [place] 4.2.7.2.[place] [phone] Id dical NAL [address] [facility] 2021-01-05 2021-01-05 Outpatient X CRISTEL [facility] AVNI [id number] 103 Univers 10:26:00 10:26:00 MOE goetz [facility] 2021-01-05 2021-01-05 Telephone [facility] 1.2.359.994 [id number] Univers 00:00:00 00:00:00 Sendil Lauren Handy 350.1.13.10 ity of [place] 4.2.7.2.[place] [phone] Id dicmaryellen nal [address] [place] [address] 2021-01-05 2021-01-05 Telephone [facility] 1.2.492.448 [id number] Univers 00:00:00 00:00:00 Sendil Lauren HANDY 350.1.13.10 ity of [facility] 4.2.7.2.[place] [phone] Id dic[address] 2021-01-04 2021-01-04 Outpatient R [facility] [id number] Univers 13:00:00 15:09:07 JOSE JUAN kingstonapril [facility] 2021-01-04 2021-01-04 Office [facility] 1.2.840.114 [id number] Univers 12:39:25 15:09:07 Visit [facility] 350.1.13.10 it y of [place] 4.2.7.2.686 Oren as OLIVIER?BLEA [phone] Id paulette ELAM [address] [place] [address] OFFICE [facility] 2021-01-04 2021-01-04 Outpatient R [facility] [id number] Univers 13:00:00 13:00:00 JOSE JUAN goetz [facility] 2020-12-30 2020-12-30 Outpatient R MEHNAZ RODRIGUEZ [facility] 10 [id number] Univers 10:00:00 10:00:00 MEHNAZ RODRIGUEZ i [facility] 2020-12-27 2020-12-28 [facility] Vickey Montejo [facility] 1. 2.840.114 [id number] Univers 15:44:00 17:25:00 Encounter Su [facility] 350.1.13.10 ity of Provider, [facility] Ep Lab Clear 4.2.7.2.686 [place] Anesthesia, [facility] Ep Lab Franco [phone] ([facility]) 2020-12-27 2020-12-27 Outpatient R RENAVICKI [facility] [id number] Univers 13:00:00 13:00:00 VICKEY ARREOLA it y of [facility] 2020-12-24 2020-12-24 Pre-Anesth Call, [facility] 1.2.840.114 [id number] Univers 08:35:00 08:40:00 bradley hospitala [facility] Phone HEALTH 350.1.13.10 ity of [place]2.7.2.[place] [phone] [address] ([facility]) 2020-12-24 2020-12-24 Telephone [facility] 1.2.726.730 [id number] Univers 00:00:00 00:00:00 [facility] Health 350.1.13.10 it y of [place]2.[place].2.[place] Franco [phone] [address] ([facility]) 2020-12-21 2020-12-21 Hospital Aditya [facility] 1.2.840.114 [id number] Univers 10:26:41 23:59:00 Encounter Provider, [facility] Ep Lab Health 350.1.1 3.10 [place] of [place] 4[place]2.7.2.[place] Franco [phone] [address] ([facility]) 2020-12-21 2020-12-21 Outpatient R ADITYA [facility] [id number] Univers 13:00:00 13:00:00 LUIS ity of [facility] [place] 2020-12-20 2020-12-20 Telephone [facility] 1.2.383.999 [id number] Univers 00:00:00 00:00:00 [facility] Health 350.1.13.10 it [place] of [place]2.[place].2.[place] Franco [phone] [address] ([facility]) 2020-12-17 2020-12-17 Telephone [facility] 1.2.794.426 [id number] Univers 00:00:00 00:00:00 Luis Addison 350.1.13.10 i ty of [place] 4.2.7.2.[place] [phone] [place] [address]69 [facility] 2020-12-17 2020-12-17 [place] [facility] 1.2.822.932 [id number] Univers 00:00:00 00:00:00 Luis Addison 350.1.13.10 [place] [phone] [address] 2020-12-14 2020-12-14 [facility] 1.2.840.114 [id number] Univers 11:20:00 23:59:00 Encounter Sendsissy Aguilar Addison 350.1.13.10 it[place] [phone] [facility] 844 [facility] 2020-12-14 2020-12-14 [facility] 1.2.840.114 [id number] Univers 11:25:20 12:18:32 Visit Luis Addison 350.1.13.10 [place] [phone] [address] 2020-12-14 2020-12-14 [facility] [id number] Univers 11:40:00 11:40:00 [facility] 2020-12-14 [facility] [id number] Univers 00:00:00 00:00:00 [facility] 2020-12-09 2020-12-09 [place] [facility] [id number] Univers 00:00:00 00:00:00 Luis Addison 350.1.13.10 [place] [phone] Id dical nal 059 [facility] 2020-12-07 2020-12-07 Outpatient R ADITYA [facility] [id number] Univers 13:20:00 13:20:00 LUIS ity [facility] 2020-12-07 2020-12-07 Office Aditya [facility] 1.2.840.114 [id number] Univers 10:37:26 11:17:10 Visit Lius Handy 350.1.13.10 [place] [phone] Id dical nal 059 [facility] 2020-12-07 2020-12-07 Orders Doctor TOO 1.2.840.114 [id number] Univers 00:00:00 00:00:00 Only Unassigned, CADE 350.1.13.10 ity [place] [facility] 4.2.7.2.686 [place] as [phone] [address] 2020-12-06 2020-12-06 Grab Driver 2, Adc Lab [facility] 1.2.840.114 [id number] Univers 15:12:24 15:27:24 Visit Joon Woody 350.1.13. 10 [place] [phone] Id dical nal 353 [facility] 2020-12-06 2020-12-06 Office Annalise [facility] 1.2.840.114 [id number] Univers 13:59:53 15:05:54 Visit Joon Handy 350.1.13.10 [place] [phone] Id dical nal 059 [facility] 2020-12-06 2020-12-06 Outpatient R ANNALISE [facility] [id number] Univers 14:00:00 14:00:00 SENDIL sofy [facility] 2020-12-06 2020-12-06 Telephone Annalise [facility] [id number] [id number] Univers 00:00:00 00:00:00 Joon Handy 350.1.13.10 [place] [phone] Id dical nal 059 [facility] 2020-12-03 2020-12-03 Orders Doctor TOO 1.2.840.114 [id number] Univers 00:00:00 00:00:00 Only Unassigned, CADE 350.1.13.10 ity of [place] [facility] 4.2.7.2.686 [place] [phone] [place] [address] [address] 2020-12-02 2020-12-02 [facility] [id number] Univers 09:00:00 09:00:00 SENDIL ity [facility] [place] 2020-11-30 2020-11-30 [facility] 1.2.840.114 [id number] Univers 09:03:20 23:59:00 Encounter Sendsissy Aguilar SPECIALTY 350.1.13.10 [place] [phone] Id dical VICTORY 805 [facility] 2020-11-30 2020-11-30 Outpatient R [facility] [id number] Univers 14:00:00 14:00:00 SENDIL ity [facility] 2020-11-30 2020-11-30 [facility] 1.2.840.114 [id number] Univers 09:00:00 09:02:00 Encounter Sendsissy Aguilar SPECIALTY 350.1.13.10 [place] [phone] Id dicmaryellen VICTORY 805 [facility] 2020-11-30 2020-11-30 Outpatient R [facility] [id number] Univers 09:00:00 09:00:00 SENDIL ity [facility] [place] 2020-11-22 2020-11-22 [facility] 1.2.840.114 [id number] Univers 08:38:20 23:59:00 Encounter Sendsissy Handy 350.1.13.10 [place] [phone] Me dical nal 843 [facility] 2020-11-22 2020-11-22 Outpatient R [facility] [id number] Univers 09:00:00 09:00:00 SENDIL ity of [facility] 2020-11-22 2020-11-22 Grab Driver 2, Adc Lab [facility] 1.2.840.114 [id number] Univers 08:25:17 08:40:17 Visit Joon Woody 350.1.13. 10 [place] [phone] Id dical nal 353 [facility] 2020-11-22 2020-11-22 Grab Driver 2, Adc Lab [facility] 1.2.840.114 [id number] Univers 08:25:17 08:40:17 Visit Joon Woody 350.1.13. 10 [place] [phone] Id dical nal 353 [facility] 2020-11-17 2020-11-17 Orders Doctor TOO 1.2.840.114 [id number] Univers 00:00:00 00:00:00 Only Unassigned, CADE 350.1.13.10 ity of [place] [facility] 4.2.7.2.686 [place] [phone] [address] 2020 2020 Orders Doctor TOO 1.2.840.114 [id number] Univers 00:00:00 00:00:00 Only Unassigned, CADE 350.1.13.10 ity of [place] [facility] 4.2.7.2.686 [place] [phone] [address] 2020-11-11 2020-11-11 Telephone Annalise [facility] 1.2.784.365 [id number] Univers 00:00:00 00:00:00 Joon Handy 350.1.13.10 [place] [phone] Id dical nal 059 [facility] 2020-11-11 2020-11-11 Telephone [facility] 1.2.254.991 [id number] Univers 00:00:00 00:00:00 Joon Handy 350.1.13.10 [place] [phone] Id dical nal 059 [facility] 2020-11-11 2020-11-11 Orders Doctor TOO 1.2.840.114 [id number] Univers 00:00:00 00:00:00 Only Unassigned, CADE 350.1.13.10 ity of [place] [facility] 4.2.7.2.686 [place] [phone] [address] 2020-11-10 2020-11-10 [facility] 1.2.292.012 [id number] Univers 00:00:00 00:00:00 Joon Handy 350.1.13.10 [place] [phone] Id dical nal 059 [facility] 2020-11-10 2020-11-10 [facility]phone [facility] 1.2.893.448 [id number] Univers 00:00:00 00:00:00 Joon Handy 350.1.13.10 [place] [phone] Id dical nal 059 [facility] 2020-11-04 2020-11-04 Grab Driver 2, Adc Lab [facility] 1.2.840.114 [id number] Univers 10:03:16 10:18:16 Visit Joon Woody 350.1.13. 10 [place] [phone] Id dical nal 353 [facility] 2020-11-04 2020-11-04 Grab Driver 2, Adc Lab [facility] 1.2.840.114 [id number] Univers 10:03:16 10:18:16 Visit Joon Woody 350.1.13. 10 [place] [phone] Id dical nal 353 [facility] 2020-11-04 2020-11-04 Office [facility], [facility] 1.2.840.114 [id number] Univers 09:06:37 09:51:58 Visit Joon Handy 350.1.13.10 it[place] [phone] Id dical nal 059 [facility] 2020-11-04 2020-11-04 Office [facility], [facility] 1.2.840.114 [id number] Univers 09:06:37 09:51:58 Visit Joon Handy 350.1.13.10 [place] [phone] [facility] nal 059 [facility] 2020-11-04 2020-11-04 Outpatient R [facility] [id number] Univers 09:00:00 09:51:58 SENDIL ity of [facility] 2020-11-04 2020-11-04 Outpatient R [facility] [id number] Univers 09:00:00 09:51:58 SENDIL ity of [facility] 2020-11-04 2020-11-04 Outpatient R [facility] [id number] Univers 09:00:00 09:00:00 SENDIL ity of [facility] 2020-11-03 2020-11-03 Grab Driver 2, Adc Lab [facility] 1.2.840.114 [id number] Univers 14:33:53 14:48:53 Visit Nicole Padilla 350.1.13.10 [place] [phone] Id dical nal 353 [facility] 2020-11-03 2020-11-03 Grab Driver 2, Adc Lab [facility] 1.2.840.114 [id number] Univers 14:33:53 14:48:53 Visit Nicole Padilla [place] 350.1.13.10 [place] [phone] Id dical nal 353 [facility] 2020-11-03 2020-11-03 Office [facility] 1.2.840.114 [id number] Univers 13:46:00 14:31:02 Visit Nicoleki Handy 350.1.13.10 [place] [phone] Id dical nal 204 [facility] 2020-11-03 2020-11-03 Office [facility] 1.2.840.114 [id number] 83 Univers 13:46:00 14:31:02 Visit Nciole Handy 350.1.13.10 [place] [phone] [facility] 204 [facility] 2020-11-03 2020-11-03 [facility] [id number] Univers 14:00:00 14:00:00 NICOLE itapril of [facility] 2020-11-03 2020-11-03 Orders Doctor TOO 1.2.840.114 [id number] Univers 00:00:00 00:00:00 Only Unassigned, CADE 350.1.13.10 ity of [place] [facility] 4.2.7.2.686 [place] [phone] [facility] [address] 2020-11-03 2020-11-03 Orders Doctor TOO 1.2.840.114 [id number] Univers 00:00:00 00:00:00 Only Unassigned, CADE 350.1.13.10 ity of [place] [facility] 4.2.7.2.686 [place] [phone] [facility] [address] 2020-10-23 2020-10-23 [facility] 1.2.272.457 [id number] Univers 11:27:00 13:55:00 Jessica Handy 350.1.13.10 i [place] [phone] [address] 2020-10-22 2020-10-22 [facility] 1.2.840.114 [id number] Univers 08:27:33 09:25:24 Visit Jose Juan Espinosa 350.1.13.10 it y of [place] 4.2.7.2.686 [place] Professio [phone] [facility] [address] 2020-10-22 2020-10-22 Outpatient R [facility] [id number] [facility] 08:30:00 08:30:00 JOSE JUAN ity of [facility] 2020-10-16 2020-10-[address] [facility], [place]) 1.2.077.395 [id number] Univers 10:57:00 13:00:00 [facility] 350.1.13.10 ity of [place]7.2.[place] [facility] [phone] [address] 2020-10-16 2020-10-16 Orders Doctor TOO 1.2.840.114 [id number] Univers 00:00:00 00:00:00 Only Unassigned, CADE 350.1.13.10 ity of [place] [facility] 4.2.7.2.686 [place] [phone] [address] 2020-05-03 2020-05-03 Outpatient Young_J MMG [facility] [id number] 021 [place] 10:34:00 10:34:00 [facility] Results Test Description Test Time Test Comments Results Result Comments Source Prothrombin Time / INR 2022-02-22 17:13:58 Test Item Value Reference Range Interpretation Comme nts PROTIME PATIENT (test code = See_Comment H [Automated message] The system 5964-2) which generated this result transmitted ref erence range: 12.0 - 14.7 Sec onds. The reference range was not used to interpret this result as normal/abnormal . INR (test code = 6301-6) Nor mal INR <1.1; Warfarin Therapeutic ran ge 2.0 to 3.0 or 2.5 to 3.5, dep ending upon the indications. Lab Interpretation (test code Abnormal = 22897-1) [facility] [id number] 17:03:36 Test Item Value Reference Range Interpretation Comments NT-proBNP (test code 137 pg/mL See_Comment H [Autom ated = 2843218689) message] The system which generated this result transmitted reference range : <=125. The reference range was not used to interpret this result as normal/abnormal . NIKA (test code = NIKA) Biotin has been reported to cause a negative bias, interpret results relative to patient's use of biotin. Lab Interpretation Abnormal (test code = 82437-5) [facility] METABOLIC PANEL (NA, K, CL, CO2, GLUCOSE, BUN, CREATININE, CA)2022-02-22 16:57:08 Test Item Value Reference Range Interpretation Comments NA (test code = 139 mmol/L 135-145 0753236741) K (test code = 3.2 mmol/L 3.5-5.0 L 0227725225) CL (test code = 97 mmol/L 98-108 L 8160252097) CO2 TOTAL (test code = 32 mmol/L 23-31 H 2671293100) AGAP (test code = 2-16 0163019774) BUN (test code = 17 mg/dL 7-23 7638735725) GLUCOSE (test code = 333 mg/dL 70-110 H 7866187867) CREATININE (test code = 0.84 mg/dL 0.60-1.25 8550154221) CALCIUM (test code = 8.7 mg/dL 8.6-10.6 4253995143) eGFR (test code = mL/min/1.73m2 5590798225) NIKA (test code = NIKA) Association of Glomerular Filtration Rate (GFR) and Staging of Kidney Disease* + --+ --+ ------+| GFR (mL/min/1.73 m2) ?| With Kidney Damage ?| ?Without Kidney Damage+ --------+ --------+ +| ?>90 ?| ?Stage one ?| ? Normal ?+ ---+ ---+ -------+| ?60-89 ?| ?Stage two ?| ? Decreased GFR ? + --+ --+ ------+| ?30-59 ?| ?Stage three ?| ? Stage three ? + --+ --+ ------+| ?15-29 ?| ?Stage four ? | ? Stage four ?+ ---+ ---+ -------+| ?<15 (or dialysis) ? ?| ?Stage five ? | ? Stage five ?+ ---+ ---+ -------+ *Each stage assumes the associated GFR level has been in effect for at least three months. ?Stages 1 to 5, with or without kidney disease, indicate chronic kidney disease. Notes: Determination of stages one and two (with eGFR >59mL/min/1.73 m2) requires estimation of kidney damage for at least three months as defined by structural or functional abnormalities of the kidney, manifested by either:Pathological abnormalities or Markers of kidney damage (including abnormalities in the composition of the blood or urine or abnormalities in imaging tests). Lab Interpretation Abnormal (test code = 45073-6) [facility] SARS-COV-2 ANTIGEN (BINAX NOW)2022-02-01 17:19:00 Test Item Value Reference Range Interpretation Comments POCT SARS-COV-2 ANTIGEN (test Not Detected Not Detected code = 56930-5) On board controls acceptable Yes with C Line (test code = 3574) [facility] SARS-COV-2 ANTIGEN (BINAX NOW)2022-02-01 17:19:00 Test Item Value Reference Range Interpretation Comments POCT SARS-COV-2 ANTIGEN (test Not Detected Not Detected code = 70128-9) On board controls acceptable Yes with C Line (test code = 3574) [id number] 02:24:20 Test Item Value Reference Interpretation Comments Range TROPONIN I (test 0.007 ng/mL See_Comment [Automated code = 1047439924) message] The system which generated this result transmitted reference range : <=0.034. The reference range was not used to interpret this result as normal/abnormal . NIKA (test code = Reference (Normal) NIKA) Range (defined by the 99th percentile reference limit): <= 0.034 ng/mL Note: Cardiac troponin begins to rise 3-4 hours after the onset of ischemia. Repeat in 4-6 hours if the sample was drawn within 3-4 hours of the onset of the symptom and found normal. Diagnosis of myocardial injury is made with acute changes in cTn concentrations with at least one serial sample above the 99th percentile upper reference limit (URL), taken together with the patient's clinical presentation. Biotin has been reported to cause a negative bias, interpret results relative to patient's use of biotin. Lab Interpretation Normal (test code = 73627-1) [facility] [id number] 02:21:18 Test Item Value Reference Range Interpretation Comments NT-proBNP (test code 79 pg/mL See_Comment [Autom ated = 5879199849) message] The system which generated this result transmitted reference range : <=125. The reference range was not used to interpret this result as normal/abnormal . NIKA (test code = NIKA) Biotin has been reported to cause a negative bias, interpret results relative to patient's use of biotin. Lab Interpretation Normal (test code = 52087-9) [facility] 02:12:18 Test Item Value Reference Range Interpretation Comments MAGNESIUM (test code = 7522079653) 1.9 mg/dL 1.7-2.4 Lab Interpretation (test code = Normal 77048-2) [facility] METABOLIC PANEL (95383)2022-01-27 02:11:58 Test Item Value Reference Range Interpretation Comments NA (test code = 138 mmol/L 135-145 5025330138) K (test code = 3.4 mmol/L 3.5-5.0 L 2133629514) CL (test code = 97 mmol/L 98-108 L 6566962461) CO2 TOTAL (test code = 36 mmol/L 23-31 H 8919214516) AGAP (test code = 2-16 7365186693) BUN (test code = 17 mg/dL 7-23 0215363091) GLUCOSE (test code = 267 mg/dL 70-110 H 8208956286) CREATININE (test code = 0.96 mg/dL 0.60-1.25 1281287292) TOTAL BILI (test code = 0.9 mg/dL 0.1-1.8 4033741208) CALCIUM (test code = 9.1 mg/dL 8.6-10.6 2282974852) T PROTEIN (test code = 6.9 g/dL 6.3-8.2 7753377385) ALBUMIN (test code = 4.1 g/dL 3.5-5.0 5498562943) ALK PHOS (test code = 125 U/L 34-122 H 6989832048) ALTv (test code = 24 U/L 5-50 1742-6) AST(SGOT) (test code = 46 U/L 13-40 H 9197047098) eGFR (test code = mL/min/1.73m2 3588174157) NIKA (test code = NIKA) Association of Glomerular Filtration Rate (GFR) and Staging of Kidney Disease* + --+ --+ ------+| GFR (mL/min/1.73 m2) ?| With Kidney Damage ?| ?Without Kidney Damage+ --------+ --------+ +| ?>90 ?| ?Stage one ?| ? Normal ?+ ---+ ---+ -------+| ?60-89 ?| ?Stage two ?| ? Decreased GFR ? + --+ --+ ------+| ?30-59 ?| ?Stage three ?| ? Stage three ? + --+ --+ ------+| ?15-29 ?| ?Stage four ? | ? Stage four ?+ ---+ ---+ -------+| ?<15 (or dialysis) ? ?| ?Stage five ? | ? Stage five ?+ ---+ ---+ -------+ *Each stage assumes the associated GFR level has been in effect for at least three months. ?Stages 1 to 5, with or without kidney disease, indicate chronic kidney disease. Notes: Determination of stages one and two (with eGFR >59mL/min/1.73 m2) requires estimation of kidney damage for at least three months as defined by structural or functional abnormalities of the kidney, manifested by either:Pathological abnormalities or Markers of kidney damage (including abnormalities in the composition of the blood or urine or abnormalities in imaging tests). Lab Interpretation Abnormal (test code = 24589-6) [facility] WITH [id number] 01:37:37 Test Item Value Reference Range Interpretation Comments WBC (test code = See_Comment [Automated 6690-2) message] The sy stem which generated this result transmitted reference range : 4.20 - 10.70 10*3/?L. The reference range was not used to interpret this result as normal/abnormal . RBC (test code = See_Comment L [Automated 789-8) message] The sy stem which generated this result transmitted reference range : 4.26 - 5.52 10*6/?L. The reference range was not used to interpret this result as normal/abnormal . HGB (test code = 12.0 g/dL 12.2-16.4 L 718-7) HCT (test code = 35.0 % 38.4-49.3 L 4544-3) MCV (test code = 91.9 fL 81.7-95.6 787-2) MCH (test code = 31.5 pg 26.1-32.7 785-6) MCHC (test code = 34.3 g/dL 31.2-35.0 786-4) RDW-SD (test code = 44.4 fL 38.5-51.6 58005-1) RDW-CV (test code = 13.2 % 12.1-15.4 788-0) PLT (test code = See_Comment L [Automated 777-3) message] The sy stem which generated this result transmitted reference range : 150 - 328 10*3/ ?L. The reference r carl was not used to interpret this result as normal/abnormal . MPV (test code = 10.7 fL 9.8-13.0 43461-4) IPF % (test code = 3.9 % 1.2-10.7 Platelet count 2367464984) measured by fluorescence method. NRBC/100 WBC (test See_Comment [Automat ed code = 2657656689) message] The system which generated this result transmitted reference range : 0.0 - 10.0 /100 WBCs. The refer ence range was not u sed to interpret th is result as normal/abnormal . NRBC x10^3 (test code See_Comment [Auto mated = 9949404717) message] The s ystem which generated this result transmitted reference range : 10*3/?L. The reference range was not used to interpret this result as normal/abnormal . GRAN MAT (NEUT) % 62.5 % (test code = 770-8) IMM GRAN % (test code 0.30 % = 4482523364) LYMPH % (test code = 27.4 % 736-9) MONO % (test code = 6.7 % 5905-5) EOS % (test code = 2.4 % 713-8) BASO % (test code = 0.7 % 706-2) GRAN MAT x10^3(ANC) 4.35 10*3/uL 1.99-6.95 (test code = 0870543065) IMM GRAN x10^3 (test 0.00-0.06 code = 3450726440) LYMPH x10^3 (test code 1.91 10*3/uL 1.09-3.23 = 731-0) MONO x10^3 (test code 0.47 10*3/uL 0.36-1.02 = 742-7) EOS x10^3 (test code = 0.17 10*3/uL 0.06-0.53 711-2) BASO x10^3 (test code 0.05 10*3/uL 0.01-0.09 = 704-7) Lab Interpretation Abnormal (test code = 11754-9) [facility] HEMOGLOBIN A1C [id number] 20:05:00 Test Item Value Reference Range Interpretation Comments POCT HBA1C (test code = 4548-4) 6.3 % 4-6 A Lab Interpretation (test code = Abnormal 10586-4) [facility] acute hospital [id number] 13:12:00Surgical Pathology Report Case: [id number] Authorizing Provider: Donn Mahoney MD Collected: 07/18/2016 0909 Ordering Location: [facility] PERIOPER[facility]IVE Received: 07/18/2016 1120 SERVICES Pathologist: Aaron Chang MD Specimen: Soft Tissue, Other, id only explant hardware INTRATHECAL PUMP, REMOVAL: BOBBIN LOOSE END FINDER CONSISTENT WITH INTRATHECAL PUMP IDENTIFIED (GROSS DIAGNOSIS ONLY)SD/CG/pl SigningPathologist Direct Phone Line: [phone] signed by Aaron Chang MD on 07/31/2016at 1:12 [id number] painHardware, intrathecal pumpThe specimen is received in fluidless containerlabeled with the patient's information labeled "intrathecal pump" and consists of a programmable pump measuring 8 x 7 x 1.5 cm with attached white tubing measuring 50 cm in length x 0.2 cm in diameter.Serial number is [id number]. The specimen is submitted for gross identification. DB/plURINALYSIS W/ REFLEX URINE CULTURE 2016-06-26 13:37:00 Test Item Value Reference Range Interpretation Comments COLOR (BEAKER) (test code = 470) Yellow CLARITY (BEAKER) (test code = 469) Clear SPECIFIC GRAVITY UA (BEAKER) (test 1.019 1.001-1.035 code = 468) PH UA (BEAKER) (test code = 467) 6.5 5.0-8.0 PROTEIN UA (BEAKER) (test code = 10 mg/dL Negative A 464) GLUCOSE UA (BEAKER) (test code = Negative Negative 365) KETONES UA (BEAKER) (test code = Negative Negative 371) BILIRUBIN UA (BEAKER) (test code = Negative Negative 462) BLOOD UA (BEAKER) (test code = 461) Negative Negative NITRITE UA (BEAKER) (test code = Negative Negative 465) LEUKOCYTE ESTERASE UA (BEAKER) Negative Negative (test code = 466) UROBILINOGEN UA (BEAKER) (test code 0.2 mg/dL 0.2-1.0 = 463) RBC UA (BEAKER) (test code = 519) < /HPF WBC UA (BEAKER) (test code = 520) < /HPF SOURCE(BEAKER) (test code = 1525) BASIC METABOLIC [id number] 13:01:00 Test Item Value Reference Range Interpretation Comments SODIUM (BEAKER) 140 meq/L 136-145 (test code = 381) POTASSIUM (BEAKER) 4.1 meq/L 3.5-5.1 (test code = 379) CHLORIDE (BEAKER) 106 meq/L 98-107 (test code = 382) CO2 (BEAKER) (test 22 meq/L 22-29 code = 355) BLOOD UREA NITROGEN 20 mg/dL 7-21 (BEAKER) (test code = 354) CREATININE (BEAKER) 0.78 mg/dL 0.57-1.25 (test code = 358) GLUCOSE RANDOM 95 mg/dL 70-105 (BEAKER) (test code = 652) CALCIUM (BEAKER) 9.2 mg/dL 8.4-10.2 (test code = 697) EGFR (BEAKER) (test 101 mL/min/1.73 ESTIM ATED GFR IS code = 1092) sq m NOT ACCURATE CREATININE CLEARANCE IN PREDICTING GLOMERULAR FILTRATION RATE . ESTIMATED GFR I S NOT APPLICABLE FOR DIALYSIS PATIEN TS. PROTHROMBIN TIME/[id number] 12:56:00 Test Item Value Reference Range Interpretation Comments PROTIME (BEAKER) (test code = 13.5 seconds 11.7-14.7 759) INR (BEAKER) (test code = 370) 1.0 <=5.9 RECOMMENDED COUMADIN/WARFARIN INR THERAPY RANGESSTANDARD DOSE: 2.0 - 3.0 Includes: PROPHYLAXIS for venous thrombosis, systemic embolization; TREATMENT for venous thrombosis and/or pulmonary embolus.HIGH RISK: Target INR is 2.5-3.5 for patients with mechanical heart valves.[id number] 12:56:00 Test Item Value Reference Range Interpretation Comments PARTIAL THROMBOPLASTIN TIME 32.0 seconds 22.5-36.0 (BEAKER) (test code = 760) CBC W/PLT COUNT & AUTO [id number] 12:48:00 Test Item Value Reference Range Interpretation Comments WHITE BLOOD CELL COUNT (BEAKER) 8.1 K/ L 4.0-10.0 (test code = 775) RED BLOOD CELL COUNT (BEAKER) 4.62 M/ L 4.20-5.80 (test code = 761) HEMOGLOBIN (BEAKER) (test code = 15.4 GM/DL 13.0-16.8 410) HEMATOCRIT (BEAKER) (test code = 45.7 % 40.0-50.0 411) MEAN CORPUSCULAR VOLUME (BEAKER) 99.0 fL 82.0-98.0 H (test code = 753) MEAN CORPUSCULAR HEMOGLOBIN 33.2 pg 27.0-33.0 H (BEAKER) (test code = 751) MEAN CORPUSCULAR HEMOGLOBIN CONC 33.6 GM/DL 32.0-36.0 (BEAKER) (test code = 752) RED CELL DISTRIBUTION WIDTH 13.0 % 10.3-14.2 (BEAKER) (test code = 412) PLATELET COUNT (BEAKER) (test 168 K/CU MM 150-430 code = 756) MEAN PLATELET VOLUME (BEAKER) 8.0 fL 6.5-10.5 (test code = 754) NUCLEATED RED BLOOD CELLS 0 /100 WBC 0-0 (BEAKER) (test code = 413) NEUTROPHILS RELATIVE PERCENT 63 % (BEAKER) (test code = 429) LYMPHOCYTES RELATIVE PERCENT 26 % (BEAKER) (test code = 430) MONOCYTES RELATIVE PERCENT 8 % (BEAKER) (test code = 431) EOSINOPHILS RELATIVE PERCENT 3 % (BEAKER) (test code = 432) BASOPHILS RELATIVE PERCENT 1 % (BEAKER) (test code = 437) NEUTROPHILS ABSOLUTE COUNT 5.09 K/ L 1.80-8.00 (BEAKER) (test code = 670) LYMPHOCYTES ABSOLUTE COUNT 2.08 K/ L 1.48-4.50 (BEAKER) (test code = 414) MONOCYTES ABSOLUTE COUNT (BEAKER) 0.61 K/ L 0.00-1.30 (test code = 415) EOSINOPHILS ABSOLUTE COUNT 0.22 K/ L 0.00-0.50 (BEAKER) (test code = 416) BASOPHILS ABSOLUTE COUNT (BEAKER) 0.06 K/ L 0.00-0.20 (test code = 417) 0.00
[2022-07-14 14:56] LABS: Absolute Lymphocytes (CBC) 1.8 K/uL (0.7-4.9); Lymphocytes % 25.7 % (15.3-44.8); MCV 93.7 fL (80-100); MPV 8.5 fL (7.6-11.3); RBC Red Blood Cell Count 4.48 M/uL (4.33-5.43)
[2022-07-14 14:57] LABS: Protime INR 1.1
[2022-07-14 15:14] LABS: Albumin 3.5 g/dL (3.4-5.0); Bilirubin Direct 0.3 mg/dL (0-0.2); Magnesium 2.2 mg/dL (1.6-2.4); Potassium 3.7 mEq/L (3.5-5.1); Protein, Total 7.8 g/dL (6.4-8.2); Troponin High Sensitivity 7.2 pg/mL (<58.9)
--- NOTE | 2022-07-14 15:36 | RAD REPORT ---
EXAM DESCRIPTION: RAD - Chest Single View - 07/14/2022 3:28 pm CLINICAL HISTORY: DYSPNEA COMPARISON: Chest Single View dated 06/10/2022 FINDINGS: Lines: Pacemaker/ICD. Lungs: No evidence of edema or pneumonia. Pleural: No significant pleural effusions or pneumothorax. Cardiac: Cardiomegaly. Mediastinum: Within normal limits. Bones: No acute fractures. ACDF in the cervical spine. Other: None IMPRESSION: No acute cardiopulmonary disease.
--- NOTE | 2022-07-14 16:32 | RAD REPORT ---
EXAM DESCRIPTION: CT - Chest For Pe Angio - 07/14/2022 4:15 pm CLINICAL HISTORY: DYSPNEA COMPARISON: Chest Single View dated 07/14/2022 TECHNIQUE: Dynamically enhanced axial 3 mm thick images of the chest were obtained during administra tion of <100> mL Isovue 370 IV contrast. Coronal and oblique reconstruction images were generated and reviewed. Exam utilizes a protocol for optimal evaluation of pulmonary arterial tree. Maximum intensity projections 3D imaging was utilized All CT scans are performed using dose optimization technique as appropriate and may include automated exposure control or mA/KV adjustment according to patient size. FINDINGS: Chest Wall: No suspicious thyroid nodules or pathologic lymphadenopathy. Left upper chest wall pacemaker. Lungs: No acute abnormality. Pleura: No significant effusions or pneumothorax. Mediastinum/nilton: No pathologic lymphadenopathy. Pulmonary arteries/Aorta: No filling defect identified. No aortic aneurysm. Heart: No significant pericardial effusion. Normal heart size. Upper abdomen: No acute abnormality.Cholecystectomy Bones: No acute abnormality. IMPRESSION: Negative for pulmonary embolism. No acute findings present.
--- NOTE | 2022-07-14 16:49 | EDPHYS ---
Physician Documentation [facility] Name: Jayson Joe Sr Age: 71 yrs Sex: Male : 1950 Arrival Date: 07/14/2022 Time: 14:06 Bed 13 Private MD: ED Physician Fabian Naranjo HPI: 07/14 14:35 This 71 yrs old Male presents to ER via EMS with complaints of Breathing Difficulty. snw 14:35 The patient has shortness of breath at rest. Onset: The symptoms/episode began/occurred snw suddenly, just prior to arrival, and improved post arrival of EMS. Duration: The symptoms are continuous, but are markedly better than the original presentation. Associated signs and symptoms: Pertinent positives: feels distended and swollen in belly. Severity of symptoms: At their worst the symptoms were moderate in the emergency department the symptoms have improved. The patient has experienced similar episodes in the past. as noted. Historical: - Allergies: 14:25 PENICILLINS; ap3 - Home Meds: 14:25 cephalexin 500 mg Oral capsule [Active]; Nystatin Topical [Active]; gabapentin 300 mg ap3 oral capsule [Active]; sertraline 100 mg oral tablet twice a day [Active]; Nystop Topical [Active]; Potassium Chloride Oral [Active]; warfarin 5 mg Oral tablet daily [Active]; omeprazole 40 mg Oral capsule,delayed release (e.c.) daily [Active]; Rybelsus 7 mg oral tablet twice a day [Active]; Farxiga 10 mg oral tablet daily [Active]; carvedilol 6.25 mg oral tablet twice a day [Active]; spironolactone 25 mg Oral tablet [Active]; allopurinol 300 mg Oral tablet daily [Active]; bumetanide 2 mg Oral tablet 2 in the morning, one at night [Active]; mexiletine 200 mg Oral capsule three times a day [Active]; - PMHx: 14:25 Cerebrovascular accident; Chronic obstructive lung disease; Congestive heart failure; ap3 diabetes mellitus; Gout; High Cholesterol; Hypertensive disorder; pacemaker/defibrilator; pain pump; - PSHx: 14:25 Appendectomy; back; Cholecystectomy; dental; foot; neck; ap3 - Immunization history:: Client reports receiving the 2nd dose of the Covid vaccine. - Social history:: Smoking status: Patient denies any tobacco usage or history of. ROS: 14:35 Constitutional: Negative for fever, chills, and weight loss, Eyes: Negative for injury, snw pain, redness, and discharge, ENT: Negative for injury, pain, and discharge, Neck: Negative for injury, pain, and swelling, Cardiovascular: Negative for chest pain, palpitations, and edema, Abdomen/GI: Negative for abdominal pain, nausea, vomiting, diarrhea, and constipation, Back: Negative for injury and pain, : Negative for injury, bleeding, discharge, and swelling, MS/Extremity: Negative for injury and deformity, Skin: Negative for injury, rash, and discoloration, Neuro: Negative for headache, weakness, numbness, tingling, and seizure. 14:35 Respiratory: Positive for shortness of breath, at rest. Exam: 14:32 Head/Face: Normocephalic, atraumatic. Eyes: Pupils equal round and reactive to light, snw extra-ocular motions intact. Lids and lashes normal. Conjunctiva and sclera are non-icteric and not injected. Cornea within normal limits. Periorbital areas with no swelling, redness, or edema. ENT: Nares patent. No nasal discharge, no septal abnormalities noted. Tympanic membranes are normal and external auditory canals are clear. Oropharynx with no redness, swelling, or masses, exudates, or evidence of obstruction, uvula midline. Mucous membranes moist. Neck: Trachea midline, no thyromegaly or masses palpated, and no cervical lymphadenopathy. Supple, full range of motion without nuchal rigidity, or vertebral point tenderness. No Meningismus. Chest/axilla: Normal chest wall appearance and motion. Nontender with no deformity. No lesions are appreciated. Cardiovascular: Regular rate and rhythm with a normal S1 and S2. No gallops, murmurs, or rubs. Normal PMI, no JVD. No pulse deficits. Respiratory: Lungs have equal breath sounds bilaterally, clear to auscultation and percussion. No rales, rhonchi or wheezes noted. No increased work of breathing, no retractions or nasal flaring. 14:32 Back: No spinal tenderness. No costovertebral tenderness. Full range of motion. MS/ Extremity: Pulses equal, no cyanosis. Neurovascular intact. Full, normal range of motion. Neuro: Awake and alert, GCS 15, oriented to person, place, time, and situation. Cranial nerves II-XII grossly intact. Motor strength 5/5 in all extremities. Sensory grossly intact. Cerebellar exam normal. 14:32 Constitutional: The patient appears alert, awake, obese. 14:32 Abdomen/GI: Inspection: obese Bowel sounds: normal. 14:32 Skin: Appearance: Color: pale, Temperature: normal temperature, Moisture: normal moisture, lesions over entire abdomen, pitted, dry, reports hx of tx for scabies, admitted 2 weeks ago for abd cellulitis. Pt continues on Keflex. Vital Signs: 14:23 Pulse 80; Resp 21; Temp 97.7(O); Pulse Ox 97% on R/A; Weight 146.06 kg; Height 6 ft. 0 ap3 in. ; 15:26 BP 151 / 80; Pulse 80; Pulse Ox 95% on R/A; ap3 17:13 BP 157 / 84; Pulse 91; Pulse Ox 96% on R/A; ap3 14:23 Body Mass Index 43.67 (146.06 kg, 182.88 cm) ap3 MDM: 14:11 Patient medically screened. snw 16:50 Differential diagnosis: Anxiety Reaction asthma, Bronchitis CHF exacerbation, Chronic snw Obstructive Pulmonary Disease pneumonia, Pulmonary Embolism. Antibiotic administration: not indicated from ED standpoint, on Keflex from previous dx of cellulitis. Data interpreted: Pulse oximetry: on room air is 95 %. Interpretation: acceptable. Data reviewed: vital signs, nurses notes, EMS record, lab test result(s), EKG, radiologic studies. Counseling: I had a detailed discussion with the patient and/or guardian regarding: the historical points, exam findings, and any diagnostic results supporting the discharge/admit diagnosis, the presence of at least one elevated blood pressure reading (>120/80) during this emergency department visit, lab results, radiology results, the need for outpatient follow up, for definitive care, to return to the emergency department if symptoms worsen or persist or if there are any questions or concerns that arise at home. Response to treatment: There is no appreciated change of the patient's symptoms at this time. Special discussion: Based on the history and exam findings, there is no indication for further emergent testing or inpatient evaluation. I discussed with the patient/guardian the need to see the primary care provider for further evaluation of the symptoms. 07/14 14:24 Order name: Basic Metabolic Panel; Complete Time: 15:14 snw 07/14 14:24 Order name: CBC with Diff; Complete Time: 15:08 w 07/14 14:24 Order name: LFT's; Complete Time: 15:14 07/14 14:24 Order name: Magnesium; Complete Time: 15:14 07/14 14:24 Order name: NT PRO-BNP; Complete Time: 15:14 07/14 14:24 Order name: PT-INR; Complete Time: 15:08 w 07/14 14:24 Order name: Troponin HS; Complete Time: 15:14 snw 07/14 14:24 Order name: XRAY Chest (1 view); Complete Time: 15:38 w 07/14 15:57 Order name: CT Chest For PE Angio; Complete Time: 16:47 w 07/14 14:24 Order name: EKG; Complete Time: 14:24 07/14 14:24 Order name: Cardiac monitoring; Complete Time: 14:34 07/14 14:24 Order name: EKG - Nurse/Tech; Complete Time: 15:18 07/14 14:24 Order name: IV Saline Lock; Complete Time: 14:48 w 07/14 14:24 Order name: Labs collected and sent; Complete Time: 14:48 07/14 14:24 Order name: O2 Per Protocol; Complete Time: 14:34 07/14 14:24 Order name: O2 Sat Monitoring; Complete Time: 14:34 07/14 16:48 Order name: VS Recheck; Complete Time: 17:13 snw EC:16 Rate is 80 beats/min. Rhythm is regular. QRS [place] is Normal. [place] interval is normal. QRS snw interval is normal. Clinical impression: Paced rhythm. Administered Medications: 17:13 Drug: [place] PO 5 mg-325 mg 1 tabs Route: PO; ap3 Disposition Summary: 07/14/22 16:49 Discharge Ordered Location: Home snw Condition: Stable snw Diagnosis - COPD/ Chronic obstructive pulmonary disease, unspecified snw Followup: snw - With: Emergency Department - When: As needed - Reason: Worsening of condition Followup: snw - With: Private Physician - When: 2 - 3 days - Reason: Recheck today's complaints, Continuance of care, Re-evaluation by your physician Discharge Instructions: - Discharge Summary Sheet snw - Chronic Obstructive Pulmonary Disease snw Forms: - Medication Reconciliation Form snw - Thank You Letter snw - Antibiotic Education snw - Prescription Opioid Use snw Signatures: Dispatcher [employer] Ashley Lawton FNP-C HOSPICE TEAM LEAD-Csnw Natalie Almanzar RN RN ap3
--- NOTE | 2022-07-14 16:49 | ER ---
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 ap3 Coronavirus screen: At this time, the client does not indicate any symptoms associated with coronavirus-19. Ebola Screen: No symptoms or risks identified at this time. Initial Sepsis Screen: Does the patient meet any 2 criteria? RR > 20 per min. No. Patient's initial sepsis screen is negative. Does the patient have a suspected source of infection? Yes: Skin breakdown/wound. Risk Assessment: Do you want to hurt yourself or someone else? Patient reports no desire to harm self or others. Onset of symptoms was July 14, 2022. 14:23 Method Of Arrival: EMS: [facility] ap3 14:23 Acuity: LEO 3 ap3 Triage Assessment: 14:31 General: Appears uncomfortable, Behavior is cooperative. Pain: Complains of pain in ap3 chest and abdomen. Neuro: Level of Consciousness is awake, alert, obeys commands, Oriented to person, place, time. Respiratory: Reports shortness of breath at rest Onset: The symptoms/episode began/occurred gradually, the patient has mild shortness of breath. Derm: Wound noted chest, abdomen, right arm and left arm. Historical: - Allergies: 14:25 PENICILLINS; ap3 - Home Meds: 14:25 cephalexin 500 mg Oral capsule [Active]; Nystatin Topical [Active]; gabapentin 300 mg ap3 oral capsule [Active]; sertraline 100 mg oral tablet twice a day [Active]; Nystop Topical [Active]; Potassium Chloride Oral [Active]; warfarin 5 mg Oral tablet daily [Active]; omeprazole 40 mg Oral capsule,delayed release (e.c.) daily [Active]; Rybelsus 7 mg oral tablet twice a day [Active]; Farxiga 10 mg oral tablet daily [Active]; carvedilol 6.25 mg oral tablet twice a day [Active]; spironolactone 25 mg Oral tablet [Active]; allopurinol 300 mg Oral tablet daily [Active]; bumetanide 2 mg Oral tablet 2 in the morning, one at night [Active]; mexiletine 200 mg Oral capsule three times a day [Active]; - PMHx: 14:25 Cerebrovascular accident; Chronic obstructive lung disease; Congestive heart failure; ap3 diabetes mellitus; Gout; High Cholesterol; Hypertensive disorder; pacemaker/defibrilator; pain pump; - PSHx: 14:25 Appendectomy; back; Cholecystectomy; dental; foot; neck; ap3 - Immunization history:: Client reports receiving the 2nd dose of the Covid vaccine. - Social history:: Smoking status: Patient denies any tobacco usage or history of. Screenin:33 Abuse screen: Denies threats or abuse. Nutritional screening: No deficits noted. ap3 Tuberculosis screening: No symptoms or risk factors identified. 17:14 [facility] ED Fall Risk Assessment (Adult) History of falling in the last 3 months, ap3 including since admission Yes- single mechanical fall (1 pt) Confusion or Disorientation No (0 pts) Intoxicated or Sedated No (0 pts) Impaired Gait Yes (1 pt) Mobility Assist Device Used No (0 pt) Altered Elimination Yes (1 pt). Assessment: 14:32 Cardiovascular: Respiratory: Airway is patent Respiratory effort is even, unlabored. ap3 17:14 Cardiovascular: Rhythm is regular. ap3 17:14 Respiratory: Breath sounds are diminished. ap3 Vital Signs: 14:23 Pulse 80; Resp 21; Temp 97.7(O); Pulse Ox 97% on R/A; Weight 146.06 kg; Height 6 ft. 0 ap3 in. ; 15:26 BP 151 / 80; Pulse 80; Pulse Ox 95% on R/A; ap3 17:13 BP 157 / 84; Pulse 91; Pulse Ox 96% on R/A; ap3 14:23 Body Mass Index 43.67 (146.06 kg, 182.88 cm) ap3 ED Course: 14:08 Patient arrived in ED. iw 14:10 Ashley Santana FNP-C is PHCP. snw 14:10 Fabian Naranjo MD is Attending Physician. snw 14:23 Natalie Almanzar, ELYSIA is Primary Nurse. ap3 14:25 Triage completed. ap3 14:33 Arm band placed on right wrist. ap3 14:33 Patient has correct armband on for positive identification. Bed in low position. Call ap3 light in reach. Side rails up X2. Adult w/ patient. security monitor on. Pulse ox on. NIBP on. 14:49 Initial lab(s) drawn, by me, sent to lab. Inserted saline lock: 22 gauge in right ap3 antecubital area, using aseptic technique. Blood collected. 15:30 XRAY Chest (1 view) In Process Unspecified. EDMS 16:17 CT Chest For PE Angio In Process Unspecified. EDMS 17:13 No provider procedures requiring assistance completed. IV discontinued, intact, ap3 bleeding controlled, No redness/swelling at site. Pressure dressing applied. Administered Medications: 17:13 Drug: [place] PO 5 mg-325 mg 1 tabs Route: PO; ap3 Medication: 14:33 VIS not applicable for this client. ap3 Outcome: 16:49 Discharge ordered by . snkrystal 17:14 Discharged to home ambulatory. ap3 17:14 Condition: good 17:14 Discharge instructions given to patient, Instructed on discharge instructions, follow up and referral plans. wound care, Demonstrated understanding of instructions, follow-up care, wound care. 17:14 Patient left the ED. ap3 Signatures: Dispatcher [employer] Ashley Lawton, PRINTER APPRENTICE-C PRINTER APPRENTICE-Csnw Deisy Love, ELYSIA RN Natalie Casey RN RN ap3 Corrections: (The following items were deleted from the chart) 14:32 14:31 Cardiovascular: Patient's skin is warm and dry. ap3 ap3
[2022-07-14] MEDS ORDERED: HYDROCODONE/APAP 5/325 MG TAB ONE (17:12)
[2022-07-14 17:46] VITALS: TEMP 97.7
[2022-07-14 17:49] VITALS: BP 157/84; O2SAT 96
== END 2022-07-14 17:14 | disposition home or self-care (01) ==
LOC: ER 14:06
DX: J44.9 Chronic obstructive pulmonary disease, unspecified (principal); I50.9 Heart failure, unspecified; I10 Essential (primary) hypertension; E11.9 Type 2 diabetes mellitus without complications; Z95.810 Presence of automatic (implantable) cardiac defibrillator; Z88.0 Allergy status to penicillin
CPT/HCPCS: 85025; 80048; 36415; 83735; 85610; 80076; 84484; 83880; 71275; 71045; 99285; Q9967

== ENCOUNTER 2022-08-22 19:37 | Emergency (ER) | payer MEDICARE ==
--- NOTE | 2022-08-22 19:53 | EDPHYS ---
Physician Documentation [facility] Name: Jayson Joe Sr Age: 71 yrs Sex: Male : 1950 Arrival Date: 08/22/2022 Time: 19:37 Bed 6 Private MD: ED Physician Carter Appiah HPI: 08/22 20:31 This 71 yrs old Male presents to ER via Ambulatory with complaints of Leg Swelling. kb 20:31 The patient presents with cellulitis of the lateral aspect of right calf. Description: kb erythematous, swollen, warm. Onset: The symptoms/episode began/occurred 4 day(s) ago. Possible cause(s): scratched leg while in the pool 4 days ago. Associated signs and symptoms: Pertinent positives: erythema, swelling. Modifying factors: the symptoms are alleviated by nothing, the symptoms are aggravated by pressure, squeezing the lesion and expressing the contents. Severity of symptoms: At their worst the symptoms were moderate, in the emergency department the symptoms are unchanged. The patient has not experienced similar symptoms in the past. The patient has not recently seen a physician. Historical: - Allergies: 19:50 PENICILLINS; kd3 - PMHx: 19:50 Cerebrovascular accident; Chronic obstructive lung disease; High Cholesterol; kd3 Hypertensive disorder; pain pump; pacemaker/defibrilator; diabetes mellitus; Congestive heart failure; Gout; - PSHx: 19:50 neck; dental; Cholecystectomy; Appendectomy; back; foot; kd3 - Immunization history:: Adult Immunizations up to date. - Social history:: Smoking status: unknown. ROS: 20:29 Constitutional: Negative for fever, chills, and weight loss. kb 20:29 Skin: Positive for abscess, cellulitis, of the lateral aspect of right calf. 20:29 All other systems are negative. Exam: 20:29 Constitutional: This is a well developed, well nourished patient who is awake, alert, kb and in no acute distress. Head/Face: Normocephalic, atraumatic. ENT: Moist Mucous membranes Cardiovascular: Regular rate and rhythm with a normal S1 and S2. No gallops, murmurs, or rubs. No pulse deficits. Respiratory: Respirations even and unlabored. No increased work of breathing. Talking in full sentences Abdomen/GI: Soft, non-tender. No distention MS/ Extremity: Pulses equal, no cyanosis. Neurovascular intact. Full, normal range of motion. Neuro: Awake and alert, GCS 15, oriented to person, place, time, and situation. Moves all extremities. Normal gait. 20:29 Skin: cellulitis, that is mild, that is moderate, on the lateral aspect of right calf, injury, abrasion(s), moderate sized abrasion noted, of the lateral aspect of right calf. Vital Signs: 19:49 BP 156 / 80; Pulse 82; Resp 19; Temp 97.5(O); Pulse Ox 99% on R/A; kd3 MDM: 19:44 Patient medically screened. kb 20:30 Differential diagnosis: abscess, allergic reaction, cellulitis, insect bite. Data kb reviewed: vital signs, nurses notes. Test considered but Not performed: Labs: serum labs considered, but pt is afebrile, nontoxic in appearance, vss. Counseling: I had a detailed discussion with the patient and/or guardian regarding: the historical points, exam findings, and any diagnostic results supporting the discharge/admit diagnosis, the need for outpatient follow up, a family practitioner, to return to the emergency department if symptoms worsen or persist or if there are any questions or concerns that arise at home. ED course: Pt given strict return precautions. Verbal understanding received. . Administered Medications: 20:03 Drug: Doxycycline PO 100 mg Route: PO; ll3 20:04 Follow up: Response: Medication administered at discharge. ll3 20:03 Drug: Trimethoprim-Sulfamethoxazole PO (160 mg-800 mg (DS) 1 tablet Route: PO; ll3 20:04 Follow up: Response: Medication administered at discharge. ll3 Disposition Summary: 08/22/22 19:52 Discharge Ordered Location: Home kb Condition: Stable kb Diagnosis - Cellulitis of right lower limb kb Followup: kb - With: Emergency Department - When: As needed - Reason: Worsening of condition Followup: kb - With: Private Physician - When: 2 - 3 days - Reason: Recheck today's complaints, Continuance of care, Re-evaluation by your physician Discharge Instructions: - Discharge Summary Sheet kb - Cellulitis, Adult, [id number] kb Forms: - Medication Reconciliation Form kb - Thank You Letter kb - Antibiotic Education kb - Prescription Opioid Use kb Prescriptions: - mupirocin 2 % Topical ointment - apply 1 application by TOPICAL route 2 times per day; 1 unit; Refills: 0, kb Product Selection Permitted - Doxycycline Hyclate 100 mg Oral Tablet - take 1 tablet by ORAL route every 12 hours; 20 tablet; Refills: 0, Product kb Selection Permitted - Bactrim DS 800-160 mg Oral Tablet - take 1 tablet by ORAL route every 12 hours for 10 days; 20 tablet; Refills: 0, kb Product Selection Permitted Signatures: Lu Caballero, Mukund Kelly, RN RN ll3 Maira Amaya RN RN kd3
--- NOTE | 2022-08-22 19:53 | ER ---
Nurse's Notes [facility] Name: Jayson Joe Sr Age: 71 yrs Sex: Male : 1950 Arrival Date: 08/22/2022 Time: 19:37 Bed 6 Private MD: Diagnosis: Cellulitis of right lower limb Presentation: 08/22 19:49 Chief complaint: Patient states: I scraped my right leg in the pool on Sunday and today kd3 it has gotten really swollen and red and hot. It is only painful to the touch. Coronavirus screen: Vaccine status: Patient reports receiving the 2nd dose of the covid vaccine. Ebola Screen: No symptoms or risks identified at this time. Initial Sepsis Screen: Does the patient meet any 2 criteria? No. Patient's initial sepsis screen is negative. Does the patient have a suspected source of infection? No. Patient's initial sepsis screen is negative. Risk Assessment: Do you want to hurt yourself or someone else? Patient reports no desire to harm self or others. Onset of symptoms was August 22, 2022. 19:49 Method Of Arrival: Ambulatory kd3 19:49 Acuity: LEO 3 kd3 Triage Assessment: 19:50 General: Appears uncomfortable, Behavior is calm, cooperative. Pain: Complains of pain kd3 in lateral aspect of right calf. Historical: - Allergies: 19:50 PENICILLINS; kd3 - PMHx: 19:50 Cerebrovascular accident; Chronic obstructive lung disease; High Cholesterol; kd3 Hypertensive disorder; pain pump; pacemaker/defibrilator; diabetes mellitus; Congestive heart failure; Gout; - PSHx: 19:50 neck; dental; Cholecystectomy; Appendectomy; back; foot; kd3 - Immunization history:: Adult Immunizations up to date. - Social history:: Smoking status: unknown. Screenin:03 [facility] ED Fall Risk Assessment (Adult) History of falling in the last 3 months, ll3 including since admission No falls in past 3 months (0 pts) Confusion or Disorientation No (0 pts) Intoxicated or Sedated No (0 pts) Impaired Gait No (0 pts) Mobility Assist Device Used Yes (1 pt) Altered Elimination No (0 pt) Score/Fall Risk Level 0 - 2 = Low Risk Oriented to surroundings, Maintained a safe environment, Educated pt \T\ family on fall prevention, incl call for assistance when getting out of bed. Abuse screen: Denies threats or abuse. Denies injuries from another. Nutritional screening: No deficits noted. Tuberculosis screening: No symptoms or risk factors identified. Vital Signs: 19:49 BP 156 / 80; Pulse 82; Resp 19; Temp 97.5(O); Pulse Ox 99% on R/A; kd3 ED Course: 19:40 Patient arrived in ED. ja2 19:44 Lu Caballero FNP-C is [facility]. kb 19:44 Carter Appiah MD is Attending Physician. kb 19:50 Triage completed. kd3 19:50 Arm band placed on right wrist. kd3 20:03 Patient has correct armband on for positive identification. Bed in low position. Call ll3 light in reach. Side rails up X 1. Adult w/ patient. 20:03 No provider procedures requiring assistance completed. Patient did not have IV access ll3 during this emergency room visit. Administered Medications: 20:03 Drug: Doxycycline PO 100 mg Route: PO; ll3 20:04 Follow up: Response: Medication administered at discharge. ll3 20:03 Drug: Trimethoprim-Sulfamethoxazole PO (160 mg-800 mg (DS) 1 tablet Route: PO; ll3 20:04 Follow up: Response: Medication administered at discharge. ll3 Medication: 20:04 VIS not applicable for this client. ll3 Outcome: 19:52 Discharge ordered by . kb 20:03 Discharged to home ambulatory, with significant other. ll3 20:03 Condition: stable 20:03 Discharge instructions given to patient, significant other, Instructed on discharge instructions, follow up and referral plans. medication usage, Demonstrated understanding of instructions, follow-up care, medications, Prescriptions given X 3. 20:04 Patient left the ED. ll3 Signatures: Lu Caballero FNP-C FNP-Saulo Ward Liss ja2 Mukund Alberts, RN RN ll3 Maira Amaya RN RN kd3
--- OUTSIDE RECORDS SUMMARY | 2022-08-22 19:55 | XMS REPORT | Continuity of Care Document ---
:1950 Author Organization [facility] t Address [address] [facility] [address] [place] [address] Support Name Relationship Address Phone Gretta Joe Spouse [phone] [place] [address] Gretta Joe [address] [place] [address] GRETTA JOE [address] [phone] [place] [address] GRETTA JOE P [address] [phone] [place] [address] Gretta Joe Spouse [address] [place] [address] GRETTA JOE X [address] [phone] [place] [address] ABHIJEET ARVIZU L X [address] [place] [address] L Abhijeet Arvizu Spouse [address] [phone] [place] [address] Care Team Providers Name Role Phone Asked, No Pcp Primary Care Physician Unavailable NEHA SEN Attending Clinician Unavailable JOON WOODY Attending Clinician Unavailable Pamella Boucher MA Attending Clinician Unavailable Rashaad NAIDU, Nichol Attending Clinician Unavailable Kassidy GARCIA, Janay Attending Clinician Olivier GARCIA PhD, Jose Antonio Alexis Attending Clinician Jose Juan Gonsalez MD Attending Clinician Scottie Erwin Attending Clinician LUIS BURGESS Attending Clinician Unavailable Doctor Unassigned, [place] Attending Clinician Unavailable Ogbechie_L Attending Clinician Unavailable Sandra Goff Attending Clinician Aditya GARCIA, Luis Attending Clinician Annalise GARCIA, Joon Aguilar Attending Clinician Quang GARCIA, Jackie Attending Clinician Juvencio Luna MD Attending Clinician CATIE HILL Attending Clinician Unavailable CATIE HILL Attending Clinician Unavailable 2, Adc Lab Attending Clinician Unavailable JOSE JUAN GONSALEZ Attending Clinician Unavailable Jessica Hewitt MD Attending Clinician RADIOLOGY Attending Clinician Unavailable Radiology Attending Clinician Unavailable Arleth [facility], Fercho Erazo Attending Clinician [phone] GERA FREEMAN Attending Clinician Unavailable Gus Owens MD Attending Clinician GUS OWENS Attending Clinician Unavailable Pete TRANSFORMER MECHANIC- Gera GAINES Attending Clinician [phone] SCOTTIE HALE Attending Clinician Unavailable Val Love DO [...] Attending Clinician KARAN TURNER Attending Clinician Unavailable Savana Angel LVN Attending Clinician Unavailable Beata Henry RN Attending Clinician Unavailable POPPY CLARKE Attending Clinician Unavailable Maurice PAC, K Sydnee Attending Clinician Moe Solorio MD Attending Clinician Poppy Clarke DO Attending Clinician Jay Jay Garcia DO Attending Clinician Hardik Kate MD Attending Clinician JESSICA HEWITT Attending Clinician Unavailable Lab, Ang - Db Attending Clinician Unavailable SHANNON ELY Attending Clinician Unavailable Nicolette Chen Attending Clinician Shannon Ely MD Attending Clinician NELLA MURPHY Attending Clinician Unavailable Nella Murphy MD Attending Clinician [phone] Angel Luis Dia Attending Clinician ANGEL LUIS RODRIUGEZ Attending Clinician Unavailable MEHNAZ RODRIGUEZ Attending Clinician Unavailable MEHNAZ RODRIGUEZ Attending Clinician Unavailable Mehnaz Rodriguez DO Attending Clinician Jennifer Sebastian MD Attending Clinician [phone] NICOLE WOMACK A Attending Clinician Unavailable Vu CRAFT, Nicole Borges Attending Clinician MOE SOLORIO Attending Clinician Unavailable Vickey Montejo MD Attending Clinician [phone] Abad Blue MD Attending Clinician Provider, Clc Ep Lab Attending Clinician Unavailable Anesthesia, Clc Ep Lab Attending Clinician Unavailable VICKEY MONTEJO Attending Clinician Unavailable Call, Clc Apac Phone Attending Clinician Unavailable Cierra Sequeira NP Attending Clinician Weston Attending Clinician Unavailable DONN MAHONEY Attending Clinician Unavailable OgbechieBruno Admitting Clinician Unavailable CATIE HILL Admitting Clinician Unavailable MORGAN MAC Admitting Clinician Unavailable Birdie GARCIA, Morgan Arevalo Admitting Clinician POPPY CLARKE Admitting Clinician Unavailable Poppy Clarke DO Admitting Clinician JESSICA HEWITT Admitting Clinician Unavailable SHANNON ELY Admitting Clinician Unavailable Solis GARCIA, Shannon Admitting Clinician LUIS BURGESS Admitting Clinician Unavailable MOE SOLORIO Admitting Clinician Unavailable Moe Solorio MD Admitting Clinician Abad Blue MD Admitting Clinician Weston Admitting Clinician Unavailable DONN MAHONEY Admitting Clinician Unavailable Payers Payer Name Policy Type Policy Number Effective Date Expiration Date S ource MEDICARE PART A \\T\\ [id number] 2001 B 00:00:00 [employer] [id number] 2021 MEDICARE ADVANTAGE 00:00:00 [facility] 2022 (MEDICARE 00:00:00 REPLACEMENT HMO) Problems Condition Condition Condition Status Onset Resolution Last Treating Co mments Source Name Details Category Date Date Treatment Clinician Date S/p dual S/p dual Disease Active Metho di chamber chamber 5-31 st pacemaker pacemaker 00:00: Hosp radha implant implant 00 l (SJM, (SJM, implanted implanted 2011 in 2011 in [place]) Diarrhea, Diarrhea, Disease Active Uni vers unspecifie unspecifie 6-23 it y of d type d type 00:00: [place] 00 Medical Branch Streptococ Streptococ Disease Active U nivers cus cus 6-23 ity of agalactiae [place] 00 Medi drew Branch Sepsis due Sepsis due Disease Active U nivers to to 6-23 ity of Streptococ Streptococ [place] c[place] group cus group 00 [facility] drew D D Branch 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 6-23 ity of of liver of liver 00:00: [place] without without 00 Medical ascites ascites Branch Other Other Disease Active Univers cirrhosis cirrhosis 6-23 ity of of liver of liver 00:00: [place] 00 Medical Branch Need for Need for Disease Active Unive rs hepatitis hepatitis 6-23 ity of C C 00:00: [place] screening screening 00 [facility] test test Branch Elevated Elevated Disease Active Unive rs SGOT (AST) SGOT (AST) 6-23 it y of 00:00: [place] 00 Medical Branch Bacteremia Bacteremia Disease Active U nivers 5-02 ity of 00:00: [place] 00 Medical Branch ANDRESSA (acute ANDRESSA (acute Disease Active U nivers kidney kidney 4-05 ity of injury) injury) 00:00: [place] 00 Medical Branch Frequent Frequent Disease Active 2020-03 Unive rs PVCs PVCs 0-27 ity of 00:00: [place] 00 Medical Branch Dizziness Dizziness Disease Active 2020-03 Uni vers 0-27 ity of 00:00: [place] 00 Medical Branch Cardiac Cardiac Disease Active 2020-03 Univers resynchron resynchron 0-27 it y of ization ization 00:00: [place] therapy therapy 00 Medical defibrilla defibrilla Br anch tor tor (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 ROD MECHANIC-D) in (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 ROD MECHANIC-D) in place place PAF PAF Disease Active 2020-03 Univers (paroxysma (paroxysma 0-27 it y of l atrial l atrial 00:00: [place] fibrillati fibrillati 00 Me dical on) on) Branch Frequent Frequent Disease Active 2020-03 Unive rs PVCs PVCs 0-27 ity of 00:00: [place] 00 Medical Branch CHF CHF Disease Active 2020-03 Univers (congestiv (congestiv 0-18 it y of e heart e heart 00:00: [place] failure), failure), 00 [facility] NYHA class NYHA class Br anch I, [...] 5-09 [facility] disorder disorder 00:[facility]: Medica l [address] [place] [address] Acute on Acute on Disease Active Unive rs chronic chronic 5-04 ity of combined combined 00:00: [place] systolic systolic 00 Medica l and and Branch diastolic diastolic heart heart failure failure Essential Essential Disease Active Uni vers hypertensi hypertensi 5-04 it y of on on 00:00: [place] 00 Medical Branch PVC PVC Disease Active Univers (premature (premature 4-29 it y of ventricula ventricula [place] 00 Medical contractio contractio Br anch n) n) Metabolic Metabolic Disease Active Uni vers syndrome syndrome 4-29 ity of 00:00: [place] [address] Medical Branch PVC PVC Disease Active Univers (premature (premature 4-29 it y of ventricula ventricula [place] Medical contractio contractio Br anch n) n) Neck pain Neck pain Disease Active Uni vers 4-11 ity of 00:00: [place] 00 Medical Branch Photophobi Photophobi Disease Active U nivers a a 4-11 ity of 00:00: [place] [address] Medical Branch Blurry Blurry Disease Active Univers vision vision 4-11 ity of 00:00: [place] [address] Medical Branch Hypotensio Hypotensio Disease Active U nivers n n 4-11 ity of 00:00: [place] 00 Medical Branch 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:00: [place] diastolic diastolic 00 Medi drew heart heart Branch failure failure CHF CHF Disease Active Univers exacerbati exacerbati 4-10 it y of on on 00:00: [place] [address] Medical Branch Hypoxia Hypoxia Disease Active Univers 4-07 ity of 00:00: [place] [address] Medical Branch COPD COPD Disease Active Univers [...] Disease Active 2014-03 U nivers hageal hageal 1-16 ity of reflux reflux 00:00: [place] disease, disease, 00 Medica l unspecifie unspecifie Br anch d whether d whether esophagiti esophagiti s present s present Generalize Generalize Disease Active 2014-03 U nivers d anxiety d anxiety 16 ity of disorder disorder 00:00: [place] 00 Medical Branch Gout Gout Disease Active 2014-03 Univers 1-16 ity of 00:00: [place] 00 Medical Branch Hyperlipid Hyperlipid Disease Active 2014-03 U nivers emia emia 1-16 ity of 00:00: [place] 00 Medical Branch Restless Restless Disease Active 2014-03 Unive rs leg leg -16 ity of syndrome syndrome 00:00: [place] 00 Medical Branch Hypertensi Hypertensi Disease Active 2014-03 U nivers on on 16 ity of 00:00: [place] 00 Medical Branch Allergies, Adverse Reactions, Alerts Allergy Allergy Status Severity Reaction(s) Onset Inactive Treating Comm ents Source Name Type Date Date Clinician Penicill Propensi Active [facility]ness [facility] ty to Breath, 4-17 [facility] adverse Swelling 00:00: Medical reaction 00 Center s Penicill Propensi Active Shortness Of [facility] ins ty to Breath, 4-17 [facility] adverse Swelling 00:00: Medical reaction 00 Center s PENICILL Allergy Active High [facility] INS 4-17 [facility] 00:[facility]: Medical 00 Center Penicill Propensi Active Swelling 2014-03 Meth linda ins ty to 1-06 st adverse 00:00: Hospita reaction 00 l s to drug Penicill Propensi Active Shortness of 2014-03 Univers in ty to Breath 03-17 ity of adverse 00:00: [place] reaction 00 Medical s Branch PENICILL DRUG Active Anaphylaxis 2014-03 Uni vers IN INGREDI 03-17 ity of 00:00: [place] 00 Medical Branch Family History Family Member Diagnosis Comments Start Date Stop Date Source Natural mother [facility] Social History Social Habit Start Date Stop Date Quantity Comments Source Gender identity 2022-06-19 Identifies as [facility] 09:02:05 male gender Hospital (finding) [facility] of tobacco [facility] Alcohol intake 2022-08-09 2022-08-09 Current drinker [facility] dist 00:00:00 00:00:00 of alcohol Hospital (finding) History of Social 2022-08-09 2022-08-[address] function 00:00:00 00:00:00 Hospital Cigarettes smoked 2022-07-31 2022-07-[address] current (pack [facility] Cigarette 2022-07-31 2022-07-31 [facility] pack-years 00:00:00 00:00:00 Hospital Tobacco use and 2022-07-31 2022-07-31 Smokeless tobacco Me thodist exposure 00:00:00 00:00:00 non-user Hospital Alcohol Comment 2022-07-31 2022-07-31 social [facility] 00:00:00 00:00:00 Hospital Exposure to 2022-02-28 2022-03-10 Not sure [facility] SARS-CoV-2 (event) 00:00:00 10:38:00 [facility] Education 2021-06-14 2021-06-14 14 University of 00:00:00 00:00:00 [facility] Sex Ass[birth year] At [birth year] M PERLA Castillo kes 00:00:00 00:00:00 [facility] Center Smoking Status Start Date Stop Date Source Tobacco smoking consumption Meth [facility]ist [facility] unknown Ex-smoker 2022-07-31 00:00:00 2022-07-31 00:00:[facility] Ordered Filled Start Stop Current Ordering Indication Dosage Frequency Signature Comments Components Source Medication Medication Date Date Medication? Clinician (SIG) Name Name gemfibroziL 0 Yes 600mg Take 1 Met hodi (LOPID) 600 5-[address] MG tablet 13:15: (600 mg Hospi ta 16 total) by l mouth. sacubitriL- 0 Yes 1{tbl} Q.5D Take 1 Me thodi valsartan 5-[address] (Entresto) 00:00: mouth 2 Hosp radha 24-26 mg 00 (two) l tablet per times a tablet day. GABAPENTIN 0 Yes [id number] TAKE 1 Univers 300 mg 5-18 CAPSULE BY ity of capsule 00:00: MOUTH IN [place] 00 THE Medical MORNING Branch AND IN THE EVENING nystatin Yes APPLY UP Metho di (Nystop) 4-[address] 100,000 00:00: TIMES Hospita unit/gram 00 DAILY TO l powder AFFECTED AREAS ON TRUNK nystatin Yes APPLY BY Metho di (MYCOSTATIN 4-[address] ) 100,000 00:00: ROUTE Hospita unit/gram 00 THREE l cream TIMES DAILY mexiletine 0 Yes [id number] 200mg Take 1 Univers 200 mg 4-17 capsule by ity of capsule 00:00: mouth [place] every 8 Medical (eight) Branch hours. mexiletine 2022-0 Yes [id number] 200mg Take 1 Univers 200 mg 4-17 capsule by ity of capsule 00:00: mouth [place] every 8 Medical (eight) Branch hours. mexiletine 2022-0 Yes [id number] 200mg Take 1 Univers 200 mg 4-17 capsule by ity of capsule 00:00: mouth [place] [address] every 8 Medical (eight) Branch hours. ATORVASTATI 2022-0 Yes [id number] 40mg TAKE 1 Univers N 40 mg 4-12 TABLET BY ity of tablet 00:00: MOUTH AT [place] [address] BEDTIME Medical Branch ATORVASTATI 2022-0 Yes [id number] 40mg TAKE 1 Univers N 40 mg 4-12 TABLET BY ity of tablet 00:00: MOUTH AT [place] [address] BEDTIME Medical Branch ATORVASTATI 2022-0 Yes [id number] 40mg TAKE 1 Univers N 40 mg 4-12 TABLET BY ity of tablet 00:00: MOUTH AT [place] [address] BEDTIME Medical Branch ATORVASTATI 2022-0 Yes [id number] 40mg TAKE 1 Univers N 40 mg 4-12 TABLET BY ity of tablet 00:00: MOUTH AT [place] [address] BEDTIME Medical Branch allopurinoL 3-0 Yes [id number] 300mg Take 1 Univers 300 mg 4-04 tablet by ity of tablet 00:00: mouth in [place] the morning. Branch allopurinoL 3-0 Yes [id number] 300mg Take 1 Univers 300 mg 4-04 tablet by ity of tablet 00:00: mouth in [place] the morning. Branch allopurinoL 3-0 Yes [id number] 300mg Take 1 Univers 300 mg 4-04 tablet by ity of tablet 00:00: mouth in [place] the morning. Branch allopurinoL 3-0 Yes [id number] 300mg Take 1 Univers 300 mg 4-04 tablet by ity of tablet 00:00: mouth in [place] the . Branch allopurinoL 2022-0 Yes [id number] 300mg Take 1 Univers 300 mg 4-04 tablet by ity of tablet 00:00: mouth in [place] the . Branch carvediloL 2022-0 Yes 6.25mg Q.5D Take 1 Met hodi (COREG) 3-[address] 6.25 MG 00:00: (6.25 mg Hospit a tablet 00 total) by l mouth 2 (two) times a day with meals. spironolact 2022-0 Yes 25mg QD Take 1 Meth linda one 3-27 tablet (25 st (ALDACTONE) 00:00: mg total) H ospita 25 MG 00 by mouth l tablet every morning. GABAPENTIN 3-0 Yes [id number] TAKE 1 Univers 300 mg 3-20 CAPSULE BY ity of capsule 00:00: MOUTH IN [place] [address] THE [facility] MORNING [place] AND IN THE EVENING GABAPENTIN 2023-0 Yes [id number] TAKE 1 Univers 300 mg 3-20 CAPSULE BY ity of capsule 00:00: MOUTH IN [place] [address] THE [facility] MORNING [place] AND IN THE EVENING GABAPENTIN 2023-0 Yes [id number] TAKE 1 Univers 300 mg 3-20 CAPSULE BY ity of capsule 00:00: MOUTH IN [address] MORNING [place] AND IN THE EVENING GABAPENTIN 2023-0 Yes [id number] TAKE 1 Univers 300 mg 3-20 CAPSULE BY ity of capsule 00:00: MOUTH IN [address] MORNING Branch AND IN THE EVENING GABAPENTIN 2022-0 Yes [id number] TAKE 1 Univers 300 mg 3-20 CAPSULE BY ity of capsule 00:00: MOUTH IN [place] 00 THE Medical MORNING Branch AND IN THE EVENING GABAPENTIN 2022-0 Yes [id number] TAKE 1 Univers 300 mg 3-20 CAPSULE BY ity of capsule 00:00: MOUTH IN [place] 00 THE Medical MORNING Branch AND IN THE EVENING gabapentin 2022-0 Yes TAKE 1 Metho di (NEURONTIN) 3-[address] 300 mg 00:00: MOUTH IN Hospita capsule 00 THE l MORNING AND IN THE EVENING GABAPENTIN 2022-0 2023- No [id number] TAKE 1 Univers 300 mg 3-20 05-18 CAPSULE BY ity of capsule 00:00: 00:00 MOUTH IN [place] 00 :00 THE Medical MORNING Branch AND IN THE EVENING KCL 20 mEq 2022-0 Yes [id number] TAKE 1 Univers tablet 3-17 TABLET BY ity of 00:00: MOUTH [place] 00 EVERY Medical MORNING Branch AND IN THE EVENING KCL 20 mEq 2022-0 Yes [id number] TAKE 1 Univers tablet 3-17 TABLET BY ity of 00:00: MOUTH [place] 00 EVERY Medical MORNING Branch AND IN THE EVENING KCL 20 mEq 2023-0 Yes [id number] TAKE 1 Univers tablet 3-17 TABLET BY ity of 00:00: MOUTH [place] 00 EVERY Medical MORNING Branch AND IN THE EVENING KCL 20 mEq 2023-0 Yes [id number] TAKE 1 Univers tablet 3-17 TABLET BY ity of 00:00: MOUTH [place] 00 EVERY Medical MORNING Branch AND IN THE EVENING KCL 20 mEq 2023-0 Yes [id number] TAKE 1 Univers tablet 3-17 TABLET BY ity of 00:00: MOUTH [place] 00 EVERY Medical MORNING Branch AND IN THE EVENING KCL 20 mEq 2023-0 Yes [id number] TAKE 1 Univers tablet 3-17 TABLET BY ity of 00:00: MOUTH [place] 00 EVERY Medical MORNING Branch AND IN THE EVENING KCL 20 mEq 2023-0 Yes [id number] TAKE 1 Univers tablet 3-17 TABLET BY ity of 00:00: MOUTH [place] 00 EVERY Medical MORNING Branch AND IN THE EVENING KCL 20 mEq 2023-0 Yes [id number] TAKE 1 Univers tablet 3-17 TABLET BY ity of 00:00: MOUTH [place] 00 EVERY Medical MORNING Branch AND IN THE EVENING KCL 20 mEq 2023-0 Yes [id number] TAKE 1 Univers tablet 3-17 TABLET BY ity of 00:00: MOUTH [place] 00 EVERY Medical MORNING Branch AND IN THE EVENING omeprazole 2022-0 Yes 40mg QD Take 1 Metho di (PriLOSEC) 3-[address] 40 MG 00:00: (40 mg Hospita capsule 00 total) by l mouth daily. potassium 2022-0 Yes TAKE 1 Method i chloride 3-[address] (K-DUR) 20 00:00: MOUTH Hospit a MEQ CR 00 EVERY l tablet MORNING AND EVENING. sertraline 2022-0 Yes Methodi (ZOLOFT) 3-17 st 100 MG 00:00: Hospita tablet 00 l warfarin 2022-0 Yes TAKE 2 Methodi (COUMADIN) 3-[address] 5 MG tablet 00:00: MOUTH ON Ho spita 00 DAYS l SUNDAY/Sun/Sun/SUNDAY primidone 2022-0 Yes Q8H Take by Metho di (MYSOLINE) 3-[address] 50 MG 00:00: every 8 Hospita tablet 00 (eight) l hours. semaglutide 2022-0 Yes 1{tbl} Take 1 Me thodi (Rybelsus) 3-[address] 7 mg tablet 00:00: mouth. Hosp radha 00 l triamcinolo 2022-0 Yes APPLY A Met hodi ne 3-[address] (KENALOG) 00:00: TO THE Hospit a 0.1 % cream 00 AFFECTED l AREA ON ARMS TWICE DAILY FOR 2 WEEKS TO A MONTH ALLOPURINOL 2022-0 Yes [id number] 300mg TAKE 1 Univers 300 mg 2-27 TABLET BY ity of tablet 00:00: MOUTH [place] DAILY Medical Branch ALLOPURINOL 2022-0 Yes [id number] 300mg TAKE 1 Univers 300 mg 2-27 TABLET BY ity of tablet 00:00: MOUTH [place] 00 DAILY Medical Branch ALLOPURINOL 3-0 Yes [id number] 300mg TAKE 1 Univers 300 mg 2-27 TABLET BY ity of tablet 00:00: MOUTH [place] DAILY Medical Branch ALLOPURINOL 3-0 Yes [id number] 300mg TAKE 1 Univers 300 mg 2-27 TABLET BY ity of tablet 00:00: MOUTH [place] 00 DAILY Medical Branch ALLOPURINOL 3-0 Yes [id number] 300mg TAKE 1 Univers 300 mg 2-27 TABLET BY ity of tablet 00:00: MOUTH 00 DAILY Medical Branch ALLOPURINOL 2023-0 3- No [id number] 300mg TAKE 1 Univers 300 mg 227 04-04 TABLET BY ity of tablet 00:00: 00:00 MOUTH [place] 00 :00 DAILY Medical Branch mexiletine 2022-0 Yes 200mg Q8H Take 1 Meth linda (MEXITIL) 2-[address] 200 MG 00:00: (200 mg Hospita capsule 00 total) by l mouth every 8 (eight) hours. Farxiga 10 0 Yes TAKE 1 Metho di mg tablet 2-[address] 00:00: MOUTH 1 Hospita 00 TIME EACH l DAY IN THE MORNING FOR DIABETES WARFARIN 2022-0 Yes [id number] 7.5mg TAKE 1 U nivers 7.5 mg 1-19 TABLET BY ity of tablet 00:00: MOUTH 00 EVERY Medical EVENING Branch WARFARIN 2022-0 Yes [id number] 7.5mg TAKE 1 U nivers 7.5 mg 1-19 TABLET BY ity of tablet 00:00: MOUTH 00 EVERY Medical EVENING Branch WARFARIN 2022-0 Yes [id number] 7.5mg TAKE 1 U nivers 7.5 mg 1-19 TABLET BY ity of tablet 00:00: MOUTH 00 EVERY Medical EVENING Branch WARFARIN 2022-0 Yes [id number] 7.5mg TAKE 1 U nivers 7.5 mg 1-19 TABLET BY ity of tablet 00:00: MOUTH [place] 00 EVERY Medical EVENING Branch WARFARIN 2022-0 Yes [id number] 7.5mg TAKE 1 U nivers 7.5 mg 1-19 TABLET BY ity of tablet 00:00: MOUTH 00 EVERY Medical EVENING Branch WARFARIN 2022-0 Yes [id number] 7.5mg TAKE 1 U nivers 7.5 mg 1-19 TABLET BY ity of tablet 00:00: MOUTH 00 EVERY Medical EVENING Branch WARFARIN 2022-0 Yes [id number] 7.5mg TAKE 1 U nivers 7.5 mg 1-19 TABLET BY ity of tablet 00:00: MOUTH [place] 00 EVERY Medical EVENING Branch WARFARIN 2022-0 Yes [id number] 7.5mg TAKE 1 U nivers 7.5 mg 1-19 TABLET BY ity of tablet 00:00: MOUTH 00 EVERY Medical EVENING Branch WARFARIN 3-0 Yes [id number] 7.5mg TAKE 1 U nivers 7.5 mg 1-19 TABLET BY ity of tablet 00:00: MOUTH [place] 00 EVERY Medical EVENING Branch WARFARIN 2023-0 Yes [id number] 7.5mg TAKE 1 U nivers 7.5 mg 1-19 TABLET BY ity of tablet 00:00: MOUTH [place] 00 EVERY Medical EVENING Branch WARFARIN 2023-0 Yes [id number] 7.5mg TAKE 1 U nivers 7.5 mg 1-19 TABLET BY ity of tablet 00:00: MOUTH [place] 00 EVERY Medical EVENING Branch WARFARIN 2023-0 Yes [id number] 7.5mg TAKE 1 U nivers 7.5 mg 1-19 TABLET BY ity of tablet 00:00: MOUTH [place] 00 EVERY Medical EVENING Branch WARFARIN 2023-0 Yes [id number] 7.5mg TAKE 1 U nivers 7.5 mg 1-19 TABLET BY ity of tablet 00:00: MOUTH [place] 00 EVERY Medical EVENING Branch WARFARIN 2023-0 Yes [id number] 7.5mg TAKE 1 U nivers 7.5 mg 1-19 TABLET BY ity of tablet 00:00: MOUTH [place] 00 EVERY Medical EVENING Branch WARFARIN 2023-0 Yes [id number] 7.5mg TAKE 1 U nivers 7.5 mg 1-19 TABLET BY ity of tablet 00:00: MOUTH [place] 00 EVERY Medical EVENING Branch WARFARIN 2023-0 Yes [id number] 7.5mg TAKE 1 U nivers 7.5 mg 1-19 TABLET BY ity of tablet 00:00: MOUTH [place] 00 EVERY Medical EVENING Branch gabapentin 2023-0 Yes [id number] 300mg Take 1 Univers 300 mg 1-17 capsule by ity of capsule 00:00: mouth in [place] 00 the Medical morning Branch and 1 capsule in the evening. gabapentin 2023-0 Yes [id number] 300mg Take 1 Univers 300 mg 1-17 capsule by ity of capsule 00:00: mouth in [place] 00 the Medical morning Branch and 1 capsule in the evening. gabapentin 2023-0 Yes [id number] 300mg Take 1 Univers 300 mg 1-17 capsule by ity of capsule 00:00: mouth in [place] 00 the Medical morning Branch and 1 capsule in the evening. gabapentin 2023-0 Yes [id number] 300mg Take 1 Univers 300 mg 1-17 capsule by ity of capsule 00:00: mouth in [place] 00 the Medical morning Branch and 1 capsule in the evening. gabapentin 2023-0 Yes [id number] 300mg Take 1 Univers 300 mg 1-17 capsule by ity of capsule 00:00: mouth in [place] 00 the Medical morning Branch and 1 capsule in the evening. gabapentin 2023-0 Yes [id number] 300mg Take 1 Univers 300 mg 1-17 capsule by ity of capsule 00:00: mouth in [place] 00 the Medical morning Branch and 1 capsule in the evening. gabapentin 2023-0 Yes [id number] 300mg Take 1 Univers 300 mg 1-17 capsule by ity of capsule 00:00: mouth in [place] 00 the Medical morning Branch and 1 capsule in the evening. gabapentin 2023-0 Yes [id number] 300mg Take 1 Univers 300 mg 1-17 capsule by ity of capsule 00:00: mouth in [place] 00 the Medical morning Branch and 1 capsule in the evening. gabapentin 2022-0 2023- No [id number] 300mg Take 1 Univers 300 mg 1-17 03-20 capsule by ity of capsule 00:00: 00:00 mouth in [place] 00 :00 the Medical morning Branch and 1 capsule in the evening. warfarin 2022-0 Yes [id number] 7.5mg TAKE 1 U nivers 7.5 mg 1-02 TABLET BY ity of tablet 00:00: MOUTH [place] 00 EVERY Medical EVENING Branch warfarin 3-0 Yes [id number] 7.5mg TAKE 1 U nivers 7.5 mg 1-02 TABLET BY ity of tablet 00:00: MOUTH [place] 00 EVERY Medical EVENING Branch warfarin 3-0 Yes [id number] 7.5mg TAKE 1 U nivers 7.5 mg 1-02 TABLET BY ity of tablet 00:00: MOUTH [place] 00 EVERY Medical EVENING Branch warfarin 3-0 Yes [id number] 7.5mg TAKE 1 U nivers 7.5 mg 1-02 TABLET BY ity of tablet 00:00: MOUTH [place] 00 EVERY Medical EVENING Branch warfarin 3-0 2023- No [id number] 7.5mg TAKE 1 Univers 7.5 mg 1-02 -19 TABLET BY ity of tablet 00:00: 00:00 MOUTH [place] 00 :00 EVERY Medical EVENING Branch spironolact 2021-1 2021- No 12.5mg Take 12.5 [facility] one 25 mg 2-22 12-22 mg by [facility] of tablet 16:00: 00:00 mouth in [place] 04 :00 the Medical morning. [place] spironolact 2021-03- No 12.5mg Take 12.5 [facility] one 25 mg 2-22 12-22 mg by [facility] of tablet 16:00: 00:00 mouth in [place] 04 :00 the Medical morning. Branch bumetanide [...] 2 mg PM. Branch spironolact 2021-03 Yes [id number] 25mg Take 1 [facility] one 25 mg 2-22 tablet by [facility] o f tablet 00:00: mouth in [place] the Medical morning. Branch spironolact 2021-03 Yes [id number] 25mg Take 1 [facility] one 25 mg 2-22 tablet by [facility] o f tablet 00:00: mouth in [place] the Medical morning. Branch spironolact 2021-03 Yes [id number] 25mg Take 1 [facility] one 25 mg 2-22 tablet by [facility] o f tablet 00:00: mouth in [place] the Medical morning. Branch spironolact 2021-03 Yes [id number] 25mg Take 1 [facility] one 25 mg 2-22 tablet by [facility] o f tablet 00:00: mouth in [place] the Medical morning. Branch spironolact 2021-03 Yes [id number] 25mg Take 1 [facility] one 25 mg 2-22 tablet by [facility] o f tablet 00:00: mouth in [place] the Medical morning. Branch spironolact 2021-03 Yes [id number] 25mg Take 1 [facility] one 25 mg 2-22 tablet by [facility] o f tablet 00:00: mouth in [place] the Medical morning. Branch spironolact 2021-03 Yes [id number] 25mg Take 1 [facility] one 25 mg 2-22 tablet by [facility] o f tablet 00:00: mouth in [place] the Medical morning. Branch spironolact 2021-03 Yes [id number] 25mg Take 1 [facility] one 25 mg 2-22 tablet by [facility] o f tablet 00:00: mouth in [place] the Medical morning. Branch spironolact 2021-03 Yes [id number] 25mg Take 1 [facility] one 25 mg 2-22 tablet by [facility] o f tablet 00:00: mouth in [place] the Medical morning. Branch spironolact 2021-03 Yes [id number] 25mg Take 1 [facility] one 25 mg 2-22 tablet by [facility] o f tablet 00:00: mouth in [place] the Medical morning. Branch spironolact 2021-03 Yes [id number] 25mg Take 1 [facility] one 25 mg 2-22 tablet by [facility] o f tablet 00:00: mouth in [place] the Medical morning. Branch spironolact 2021-03 Yes [id number] 25mg Take 1 [facility] one 25 mg 2-22 tablet by [facility] o f tablet 00:00: mouth in [place] the Medical morning. Branch spironolact 2021-03 Yes [id number] 25mg Take 1 [facility] one 25 mg 2-22 tablet by [facility] o f tablet 00:00: mouth in [place] the Medical morning. Branch spironolact 2021-03 Yes [id number] 25mg Take 1 [facility] one 25 mg 2-22 tablet by [facility] o f tablet 00:00: mouth in [place] the Medical morning. Branch spironolact 2021-03 Yes [id number] 25mg Take 1 [facility] one 25 mg 2-22 tablet by [facility] o f tablet 00:00: mouth in [place] the Medical morning. Branch spironolact 2021-03 Yes [id number] 25mg Take 1 [facility] one 25 mg 2-22 tablet by [facility] o f tablet 00:00: mouth in [place] the Medical morning. Branch spironolact 2021-03 Yes [id number] 25mg Take 1 [facility] one 25 mg 2-22 tablet by [facility] o f tablet 00:00: mouth in [place] the Medical morning. Branch spironolact 2021-03 Yes [id number] 25mg Take 1 [facility] one 25 mg 2-22 tablet by [facility] o f tablet 00:00: mouth in [place] 00 the Medical morning. Branch spironolact 2021-03 Yes [id number] 25mg Take 1 [facility] one 25 mg 2-22 tablet by [facility] o f tablet 00:00: mouth in [place] the Medical morning. Branch spironolact 2021-03 Yes [id number] 25mg Take 1 [facility] one 25 mg 2-22 tablet by [facility] o f tablet 00:00: mouth in [place] the morning. Branch spironolact 2021-03 Yes [id number] 25mg Take 1 [facility] one 25 mg 2-22 tablet by [facility] o f tablet 00:00: mouth in [place] the morning. Branch spironolact 2021-03 Yes [id number] 25mg Take 1 [facility] one 25 mg 2-22 tablet by [facility] o f tablet 00:00: mouth in [place] the Medical morning. Branch spironolact 2021-03 Yes [id number] 25mg Take 1 [facility] one 25 mg 2-22 tablet by [facility] o f tablet 00:00: mouth in [place] the morning. Branch spironolact 2021-03 Yes [id number] 25mg Take 1 [facility] one 25 mg 2-22 tablet by [facility] o f tablet 00:00: mouth in [place] the morning. Branch KCL 20 mEq 2021-03 Yes [id number] 20meq Take 1 [facility] tablet 2-16 tablet by [facility] of 00:00: mouth in [place] the Medical morning Branch and 1 tablet in the evening. KCL 20 mEq 2021-03 Yes [id number] 20meq Take 1 [facility] tablet 2-16 tablet by [facility] of 00:00: mouth in [place] the Medical morning Branch and 1 tablet in the evening. KCL 20 mEq 2021-03 Yes [id number] 20meq Take 1 [facility] tablet 2-16 tablet by [facility] of 00:00: mouth in [place] the Medical morning Branch and 1 tablet in the evening. KCL 20 mEq 2021-03 Yes [id number] 20meq Take 1 [facility] tablet 2-16 tablet by [facility] of 00:00: mouth in [place] the Medical morning Branch and 1 tablet in the evening. KCL 20 mEq 2021-03 Yes [id number] 20meq Take 1 [facility] tablet 2-16 tablet by [facility] of 00:00: mouth in [place] the Medical morning Branch and 1 tablet in the evening. KCL 20 mEq 2021-03 Yes [id number] 20meq Take 1 [facility] tablet 2-16 tablet by [facility] of 00:00: mouth in [place] the Medical morning Branch and 1 tablet in the evening. KCL 20 mEq 2021-03 Yes [id number] 20meq Take 1 [facility] tablet 2-16 tablet by [facility] of 00:00: mouth in [place] 00 the Medical morning Branch and 1 tablet in the evening. KCL 20 mEq 2021- Yes [id number] 20meq Take 1 [facility] tablet 2-16 tablet by [facility] of 00:00: mouth in [place] 00 the Medical morning Branch and 1 tablet in the evening. KCL 20 mEq 2021-1 Yes [id number] 20meq Take 1 [facility] tablet 2-16 tablet by [facility] of 00:00: mouth in [place] 00 the Medical morning Branch and 1 tablet in the evening. KCL 20 mEq 2021-1 Yes [id number] 20meq Take 1 [facility] tablet 2-16 tablet by [facility] of 00:00: mouth in [place] 00 the Medical morning Branch and 1 tablet in the evening. KCL 20 mEq 2021-1 Yes [id number] 20meq Take 1 [facility] tablet 2-16 tablet by [facility] of 00:00: mouth in [place] 00 the Medical morning [place] and 1 tablet in the evening. KCL 20 mEq 2021- Yes [id number] 20meq Take 1 [facility] tablet 2-16 tablet by ity of 00:00: mouth in [place] [address] the Medical morning [place] and 1 tablet in the evening. KCL 20 mEq 2021- Yes [id number] 20meq Take 1 [facility] tablet 2-16 tablet by it[facility] of 00:00: mouth in [place] [address] the [facility] morning [place] and 1 tablet in the evening. KCL 20 mEq 2021-1 Yes [id number] 20meq Take 1 [facility] tablet 2-16 tablet by ity of 00:00: mouth in [place] 00 the [facility] morning [place] and 1 tablet in the evening. KCL 20 mEq 2021-1 Yes [id number] 20meq Take 1 [facility] tablet 2-16 tablet by ity of 00:00: mouth in [place] 00 the Medical morning [place] and 1 tablet in the evening. KCL 20 mEq 2021-2022- No [id number] 20meq Take 1 [facility] tablet 2-16 03-17 tablet by ity of 00:00: 00:00 mouth in [place] 00 :00 the [facility] morning [place] and 1 tablet in the evening. GABAPENTIN 2021-03 Yes [id number] TAKE 2 [facility] 300 mg 2-14 CAPSULES ity of capsule 00:00: BY MOUTH [place] [address] TWICE Medical DAILY. Branch PRIMIDONE 2021-03 Yes [id number] TAKE 2 [facility] n[facility] 50 mg 2-14 TABLETS BY ity of tablet 00:00: MOUTH [place] 00 EVERY 8 Medical HOURS Branch GABAPENTIN 2021- Yes [id number] TAKE 2 [facility] 300 mg 2-14 CAPSULES ity of capsule 00:00: BY MOUTH [place] 00 TWICE Medical DAILY. Branch PRIMIDONE 2021- Yes [id number] TAKE 2 U nivers 50 mg 2-14 TABLETS BY ity of tablet 00:00: MOUTH [place] 00 EVERY 8 Medical HOURS Branch PRIMIDONE 2021- Yes [id number] TAKE 2 [facility] nivers 50 mg 2-14 TABLETS BY ity of tablet 00:00: MOUTH [place] 00 EVERY 8 Medical HOURS Branch PRIMIDONE 2021- Yes [id number] TAKE 2 U nivers 50 mg 2-14 TABLETS BY ity of tablet 00:00: MOUTH [place] 00 EVERY 8 Medical HOURS Branch PRIMIDONE 2021- Yes [id number] TAKE 2 U nivers 50 mg 2-14 TABLETS BY ity of tablet 00:00: MOUTH [place] 00 EVERY 8 Medical HOURS Branch PRIMIDONE 2021- Yes [id number] TAKE 2 U nivers 50 mg 2-14 TABLETS BY ity of tablet 00:00: MOUTH [place] 00 EVERY 8 Medical HOURS Branch PRIMIDONE 2021- Yes [id number] TAKE 2 U nivers 50 mg 2-14 TABLETS BY ity of tablet 00:00: MOUTH [place] 00 EVERY 8 Medical HOURS Branch PRIMIDONE 2021- Yes [id number] TAKE 2 U nivers 50 mg 2-14 TABLETS BY ity of tablet 00:00: MOUTH [place] 00 EVERY 8 Medical HOURS Branch PRIMIDONE 2021- Yes [id number] TAKE 2 U nivers 50 mg 2-14 TABLETS BY ity of tablet 00:00: MOUTH [place] 00 EVERY 8 Medical HOURS Branch PRIMIDONE 2021- Yes [id number] TAKE 2 U nivers 50 mg 2-14 TABLETS BY it[facility] of tablet 00:00: MOUTH [place] 00 EVERY 8 Medical HOURS Branch PRIMIDONE 2021- Yes [id number] TAKE 2 U nivers 50 mg 2-14 TABLETS BY ity of tablet 00:00: MOUTH [place] 00 EVERY 8 Medical HOURS Branch PRIMIDONE 2021- Yes [id number] TAKE 2 U nivers 50 mg 2-14 TABLETS BY ity of tablet 00:00: MOUTH [place] 00 EVERY 8 Medical HOURS Branch PRIMIDONE 2021- Yes [id number] TAKE 2 U nivers 50 mg 2-14 TABLETS BY ity of tablet 00:00: MOUTH [place] 00 EVERY 8 Medical HOURS Branch PRIMIDONE 2021- Yes [id number] TAKE 2 U nivers 50 mg 2-14 TABLETS BY ity of tablet 00:00: MOUTH [place] 00 EVERY 8 Medical HOURS Branch PRIMIDONE 2021- Yes [id number] TAKE 2 U nivers 50 mg 2-14 TABLETS BY ity of tablet 00:00: MOUTH [place] 00 EVERY 8 Medical HOURS Branch PRIMIDONE 2021- Yes [id number] TAKE 2 U nivers 50 mg 2-14 TABLETS BY ity of tablet 00:00: MOUTH [place] 00 EVERY 8 Medical HOURS Branch PRIMIDONE 2021- Yes [id number] TAKE 2 U nivers 50 mg 2-14 TABLETS BY ity of tablet 00:00: MOUTH [place] 00 EVERY 8 Medical HOURS Branch PRIMIDONE 2021- Yes [id number] TAKE 2 U nivers 50 mg 2-14 TABLETS BY ity of tablet 00:00: MOUTH [place] 00 EVERY 8 Medical HOURS Branch PRIMIDONE 2021- Yes [id number] TAKE 2 [facility] nivers 50 mg 2-14 TABLETS BY ity of tablet 00:00: MOUTH [place] 00 EVERY 8 Medical HOURS Branch PRIMIDONE 2021- Yes [id number] TAKE 2 U nivers 50 mg 2-14 TABLETS BY ity of tablet 00:00: MOUTH [place] 00 EVERY 8 Medical HOURS Branch PRIMIDONE 2021- Yes [id number] TAKE 2 U nivers 50 mg 2-14 TABLETS BY ity of tablet 00:00: MOUTH [place] 00 EVERY 8 Medical HOURS Branch GABAPENTIN 2021-1 Yes [id number] TAKE 2 [facility] 300 mg 2-14 CAPSULES ity of capsule 00:00: BY MOUTH [place] 00 TWICE Medical DAILY. Branch PRIMIDONE 2021- Yes [id number] TAKE 2 U nivers 50 mg 2-14 TABLETS BY ity of tablet 00:00: MOUTH [place] 00 EVERY 8 Medical HOURS Branch PRIMIDONE 2- Yes [id number] TAKE 2 U nivers 50 mg 2-14 TABLETS BY ity of tablet 00:00: MOUTH [place] 00 EVERY 8 Medical HOURS Branch GABAPENTIN 2-1 Yes [id number] TAKE 2 [facility] 300 mg 2-14 CAPSULES ity of capsule 00:00: BY MOUTH [place] 00 TWICE Medical DAILY. Branch PRIMIDONE 2021- Yes [id number] TAKE 2 U nivers 50 mg 2-14 TABLETS BY ity of tablet 00:00: MOUTH [place] 00 EVERY 8 Medical HOURS Branch GABAPENTIN 2021- Yes [id number] TAKE 2 [facility] 300 mg 2-14 CAPSULES ity of capsule 00:00: BY MOUTH [place] 00 TWICE Medical DAILY. Branch PRIMIDONE 2021-03 Yes [id number] TAKE 2 [facility] nivers 50 mg 2-14 TABLETS BY ity of tablet 00:00: MOUTH [place] 00 EVERY 8 Medical HOURS Branch GABAPENTIN 2021- Yes [id number] TAKE 2 [facility] 300 mg 2-14 CAPSULES ity of capsule 00:00: BY MOUTH [place] 00 TWICE Medical DAILY. Branch PRIMIDONE 2021-03 Yes [id number] TAKE 2 [facility] nivers 50 mg 2-14 TABLETS BY ity of tablet 00:00: MOUTH [place] 00 EVERY 8 Medical HOURS Branch GABAPENTIN 2021- Yes [id number] TAKE 2 [facility] 300 mg 2-14 CAPSULES ity of capsule 00:00: BY MOUTH [place] 00 TWICE Medical DAILY. Branch PRIMIDONE 2021-03 Yes [id number] TAKE 2 [facility] nivers 50 mg 2-14 TABLETS BY ity of tablet 00:00: MOUTH [place] 00 EVERY 8 Medical HOURS Branch GABAPENTIN 2021- Yes [id number] TAKE 2 [facility] 300 mg 2-14 CAPSULES ity of capsule 00:00: BY MOUTH [place] 00 TWICE Medical DAILY. Branch PRIMIDONE 2021-03 Yes [id number] TAKE 2 [facility] nivers 50 mg 2-14 TABLETS BY ity of tablet 00:00: MOUTH [place] 00 EVERY 8 Medical HOURS Branch GABAPENTIN 2021- Yes [id number] TAKE 2 [facility] 300 mg 2-14 CAPSULES ity of capsule 00:00: BY MOUTH [place] 00 TWICE Medical DAILY. Branch PRIMIDONE 2021-03 Yes [id number] TAKE 2 [facility] nivers 50 mg 2-14 TABLETS BY ity of tablet 00:00: MOUTH [place] 00 EVERY 8 Medical HOURS Branch GABAPENTIN 2021-2022- No [id number] TAKE 2 [facility] 300 mg 2-14 01-17 CAPSULES ity of capsule 00:00: 00:00 BY MOUTH [place] 00 :00 TWICE Medical DAILY. Branch warfarin 2021-03 Yes [id number] 7.5mg TAKE 1 U nivers 7.5 mg 1-30 TABLET BY ity of tablet 00:00: MOUTH [place] 00 EVERY Medical EVENING Branch warfarin 2021- Yes [id number] 7.5mg TAKE 1 U nivers 7.5 mg 1-30 TABLET BY ity of tablet 00:00: MOUTH 00 EVERY Medical EVENING Branch warfarin 2021-03 Yes [id number] 7.5mg TAKE 1 U nivers 7.5 mg 1-30 TABLET BY ity of tablet 00:00: MOUTH 00 EVERY Medical EVENING Branch warfarin 2021-03 Yes [id number] 7.5mg TAKE 1 U nivers 7.5 mg 1-30 TABLET BY ity of tablet 00:00: MOUTH 00 EVERY Medical EVENING Branch warfarin 2021-03 Yes [id number] 7.5mg TAKE 1 U nivers 7.5 mg 1-30 TABLET BY ity of tablet 00:00: MOUTH EVERY Medical EVENING Branch warfarin 2021-03 Yes [id number] 7.5mg TAKE 1 U nivers 7.5 mg 1-30 TABLET BY ity of tablet 00:00: MOUTH EVERY Medical EVENING Branch warfarin 2021-03 Yes [id number] 7.5mg TAKE 1 U nivers 7.5 mg 1-30 TABLET BY ity of tablet 00:00: MOUTH EVERY Medical EVENING Branch warfarin 2021-03 Yes [id number] 7.5mg TAKE 1 U nivers 7.5 mg 1-30 TABLET BY ity of tablet 00:00: MOUTH EVERY Medical EVENING Branch warfarin 2021-03 Yes [id number] 7.5mg TAKE 1 U nivers 7.5 mg 1-30 TABLET BY ity of tablet 00:00: MOUTH EVERY Medical EVENING Branch warfarin 2021-03 Yes [id number] 7.5mg TAKE 1 U nivers 7.5 mg 1-30 TABLET BY ity of tablet 00:00: MOUTH EVERY Medical EVENING Branch warfarin 2021-03 Yes [id number] 7.5mg TAKE 1 U nivers 7.5 mg 1-30 TABLET BY ity of tablet 00:00: MOUTH 00 EVERY Medical EVENING Branch warfarin 2021-03 Yes [id number] 7.5mg TAKE 1 U nivers 7.5 mg 1-30 TABLET BY ity of tablet 00:00: MOUTH 00 EVERY Medical EVENING Branch warfarin 2021-03 Yes [id number] 7.5mg TAKE 1 U nivers 7.5 mg 1-30 TABLET BY ity of tablet 00:00: MOUTH 00 EVERY Medical EVENING Branch warfarin 2021-03 Yes [id number] 7.5mg TAKE 1 U nivers 7.5 mg 1-30 TABLET BY ity of tablet 00:00: MOUTH 00 EVERY Medical EVENING Branch warfarin 2021-03 Yes [id number] 7.5mg TAKE 1 U nivers 7.5 mg 1-30 TABLET BY ity of tablet 00:00: MOUTH 00 EVERY Medical EVENING Branch warfarin 2021-03 Yes [id number] 7.5mg TAKE 1 U nivers 7.5 mg 1-30 TABLET BY ity of tablet 00:00: MOUTH 00 EVERY Medical EVENING Branch warfarin 2021-03 Yes [id number] 7.5mg TAKE 1 U nivers 7.5 mg 1-30 TABLET BY ity of tablet 00:00: MOUTH EVERY Medical EVENING Branch warfarin 2021-03 Yes [id number] 7.5mg TAKE 1 U nivers 7.5 mg 1-30 TABLET BY ity of tablet 00:00: EVERY Medical EVENING Branch warfarin 2021-03 Yes [id number] 7.5mg TAKE 1 [facility] nivers 7.5 mg 1-30 TABLET BY ity of tablet 00:00: MOUTH EVERY Medical EVENING Branch warfarin 2021-033- No [id number] 7.5mg TAKE 1 [facility] 7.5 mg 1-30 03-13 TABLET BY ity of tablet 00:00: 00:00 MOUTH [place] 00 :00 EVERY Medical EVENING Branch benzonatate 2021-03 Yes [id number] 200mg Take 1 [facility] 200 mg 1-28 capsule by ity of capsule 00:00: mouth (three) Medical times Branch daily as needed for Cough. benzonatate 2021-03 Yes [id number] 200mg Take 1 [facility] 200 mg 1-28 capsule by ity of capsule 00:00: mouth (three) Medical times Branch daily as needed for Cough. benzonatate 2021-03 Yes [id number] 200mg Take 1 [facility] 200 mg 1-28 capsule by ity of capsule 00:00: mouth (three) Medical times Branch daily as needed for Cough. benzonatate 2021-03 Yes [id number] 200mg Take 1 [facility] 200 mg 1-28 capsule by ity of capsule 00:00: mouth (three) Medical times Branch daily as needed for Cough. benzonatate 2021-03 Yes [id number] 200mg Take 1 [facility] 200 mg 1-28 capsule by ity of capsule 00:00: mouth (three) Medical times Branch daily as needed for Cough. benzonatate 2021-03 Yes [id number] 200mg Take 1 [facility] 200 mg 1-28 capsule by ity of capsule 00:00: mouth (three) Medical times Branch daily as needed for Cough. benzonatate 2021-03 Yes [id number] 200mg Take 1 [facility] 200 mg 1-28 capsule by ity of capsule 00:00: mouth (three) Medical times Branch daily as needed for Cough. benzonatate 2021-03 Yes [id number] 200mg Take 1 [facility] 200 mg 1-28 capsule by ity of capsule 00:00: mouth (three) Medical times Branch daily as needed for Cough. benzonatate 2021-03 Yes [id number] 200mg Take 1 [facility] 200 mg 1-28 capsule by ity of capsule 00:00: mouth [place] (three) Medical times Branch daily as needed for Cough. benzonatate 2021-03 Yes [id number] 200mg Take 1 [facility] 200 mg 1-28 capsule by ity of capsule 00:00: mouth [place] (three) Medical times Branch daily as needed for Cough. benzonatate 2021-03 Yes [id number] 200mg Take 1 [facility] 200 mg 1-28 capsule by ity of capsule 00:00: mouth [place] (three) Medical times Branch daily as needed for Cough. benzonatate 2021-03 Yes [id number] 200mg Take 1 [facility] 200 mg 1-28 capsule by ity of capsule 00:00: mouth [place] (three) Medical times Branch daily as needed for Cough. benzonatate 2021-03 Yes [id number] 200mg Take 1 [facility] 200 mg 1-28 capsule by ity of capsule 00:00: mouth [place] (three) Medical times Branch daily as needed for Cough. benzonatate 2021-03 Yes [id number] 200mg Take 1 [facility] 200 mg 1-28 capsule by ity of capsule 00:00: mouth 3 [place] (three) Medical times Branch daily as needed for Cough. benzonatate 2021-03 Yes [id number] 200mg Take 1 [facility] 200 mg 1-28 capsule by ity of capsule 00:00: mouth (three) Medical times Branch daily as needed for Cough. benzonatate 2021-03 Yes [id number] 200mg Take 1 [facility] 200 mg 1-28 capsule by ity of capsule 00:00: mouth 3 (three) Medical times Branch daily as needed for Cough. benzonatate 2021-03 Yes [id number] 200mg Take 1 [facility] 200 mg 1-28 capsule by ity of capsule 00:00: mouth (three) Medical times Branch daily as needed for Cough. benzonatate 2021-03 Yes [id number] 200mg Take 1 [facility] 200 mg 1-28 capsule by ity of capsule 00:00: mouth (three) Medical times Branch daily as needed for Cough. benzonatate 2021-03 Yes [id number] 200mg Take 1 [facility] 200 mg 1-28 capsule by ity of capsule 00:00: mouth (three) Medical times Branch daily as needed for Cough. benzonatate 2021-03 Yes [id number] 200mg Take 1 [facility] 200 mg 1-28 capsule by ity of capsule 00:00: mouth (three) Medical times Branch daily as needed for Cough. benzonatate 2021-03 Yes [id number] 200mg Take 1 [facility] 200 mg 1-28 capsule by ity of capsule 00:00: mouth (three) Medical times Branch daily as needed for Cough. cephALEXin 2021-03 Yes [id number] 500mg Take 1 [facility] 500 mg 1-28 capsule by ity of capsule 00:00: mouth (four) Medical times Branch daily. benzonatate 2021-03 Yes [id number] 200mg Take 1 [facility] 200 mg 1-28 capsule by ity of capsule 00:00: mouth (three) Medical times Branch daily as needed for Cough. cephALEXin 2021-03 Yes [id number] 500mg Take 1 [facility] 500 mg 1-28 capsule by ity of capsule 00:00: mouth (four) Medical times Branch daily. benzonatate 2021-03 Yes [id number] 200mg Take 1 [facility] 200 mg 1-28 capsule by ity of capsule 00:00: mouth 3 (three) Medical times Branch daily as needed for Cough. cephALEXin 2021-03 Yes [id number] 500mg Take 1 [facility] 500 mg 1-28 capsule by ity of capsule 00:00: mouth [place] (four) Medical times Branch daily. benzonatate 2021-03 Yes [id number] 200mg Take 1 [facility] 200 mg 1-28 capsule by ity of capsule 00:00: mouth 3 [place] (three) Medical times Branch daily as needed for Cough. cephALEXin 2021-03 Yes [id number] 500mg Take 1 [facility] 500 mg 1-28 capsule by ity of capsule 00:00: mouth [place] (four) Medical times Branch daily. benzonatate 2021-03 Yes [id number] 200mg Take 1 [facility] 200 mg 1-28 capsule by ity of capsule 00:00: mouth [place] (three) Medical times Branch daily as needed for Cough. cephALEXin 2021-03 Yes [id number] 500mg Take 1 [facility] 500 mg 1-28 capsule by ity of capsule 00:00: mouth [place] (four) Medical times Branch daily. benzonatate 2021-03 Yes [id number] 200mg Take 1 [facility] 200 mg 1-28 capsule by ity of capsule 00:00: mouth [place] (three) Medical times Branch daily as needed for Cough. cephALEXin 2021-03 Yes [id number] 500mg Take 1 [facility] 500 mg 1-28 capsule by ity of capsule 00:00: mouth [place] (four) Medical times Branch daily. benzonatate 2021- Yes [id number] 200mg Take 1 [facility] 200 mg 1-28 capsule by ity of capsule 00:00: mouth [place] (three) Medical times Branch daily as needed for Cough. cephALEXin 2021-03 Yes [id number] 500mg Take 1 [facility] 500 mg 1-28 capsule by ity of capsule 00:00: mouth [place] (four) Medical times Branch daily. benzonatate 2021- Yes [id number] 200mg Take 1 [facility] 200 mg 1-28 capsule by ity of capsule 00:00: mouth [place] (three) Medical times Branch daily as needed for Cough. cephALEXin 2021- Yes [id number] 500mg Take 1 [facility] 500 mg 1-28 capsule by ity of capsule 00:00: mouth [address] [place] [address] (four) Medical times Branch daily. benzonatate 2021- Yes [id number] 200mg Take 1 [facility] 200 mg 1-28 capsule by ity of capsule 00:00: mouth 3 (three) Medical times Branch daily as needed for Cough. cephALEXin 2021-03 Yes [id number] 500mg Take 1 [facility] 500 mg 1-28 capsule by ity of capsule 00:00: mouth 4 (four) Medical times Branch daily. benzonatate 2021-03 Yes [id number] 200mg Take 1 [facility] 200 mg 1-28 capsule by ity of capsule 00:00: mouth 3 (three) Medical times Branch daily as needed for Cough. benzonatate 2021-03 Yes [id number] 200mg Take 1 [facility] 200 mg 1-28 capsule by ity of capsule 00:00: mouth 3 (three) Medical times Branch daily as needed for Cough. benzonatate 2021-03 Yes [id number] 200mg Take 1 [facility] 200 mg 1-28 capsule by ity of capsule 00:00: mouth 3 (three) Medical times Branch daily as needed for Cough. benzonatate 2021-03 Yes [id number] 200mg Take 1 [facility] 200 mg 1-28 capsule by ity of capsule 00:00: mouth (three) Medical times Branch daily as needed for Cough. benzonatate 2021-03 Yes [id number] 200mg Take 1 [facility] 200 mg 1-28 capsule by ity of capsule 00:00: mouth [place] (three) Medical times Branch daily as needed for Cough. benzonatate 2021-03 Yes [id number] 200mg Take 1 [facility] 200 mg 1-28 capsule by ity of capsule 00:00: mouth 3 [place] (three) Medical times Branch daily as needed for Cough. benzonatate 2021-03 Yes [id number] 200mg Take 1 [facility] 200 mg 1-28 capsule by ity of capsule 00:00: mouth 3 (three) Medical times Branch daily as needed for Cough. benzonatate 2021-03 Yes [id number] 200mg Take 1 [facility] 200 mg 1-28 capsule by ity of capsule 00:00: mouth 3 [place] (three) Medical times Branch daily as needed for Cough. benzonatate 2021-03 Yes [id number] 200mg Take 1 [facility] 200 mg 1-28 capsule by ity of capsule 00:00: mouth 3 (three) Medical times Branch daily as needed for Cough. benzonatate 2021-03 Yes [id number] 200mg Take 1 [facility] 200 mg 1-28 capsule by ity of capsule 00:00: mouth 3 [place] 00 (three) Medical times Branch daily as needed for Cough. benzonatate 2021-03 Yes [id number] 200mg Take 1 [facility] 200 mg 1-28 capsule by ity of capsule 00:00: mouth 3 [place] 00 (three) Medical times Branch daily as needed for Cough. benzonatate 2021-03 Yes [id number] 200mg Take 1 [facility] 200 mg 1-28 capsule by ity of capsule 00:00: mouth 3 [place] 00 (three) Medical times Branch daily as needed for Cough. benzonatate 2021-03 Yes [id number] 200mg Take 1 [facility] 200 mg 1-28 capsule by ity of capsule 00:00: mouth 3 [place] 00 (three) Medical times Branch daily as needed for Cough. cephALEXin 2021-03- No [id number] 500mg Take 1 [facility] 500 mg 1-28 12-14 capsule by ity of capsule 00:00: 00:00 mouth 4 [place] 00 :00 (four) Medical times Branch daily. cephALEXin 2021-03- No [id number] 500mg Take 1 [facility] 500 mg 1-28 12-14 capsule by ity of capsule 00:00: 00:00 mouth 4 [place] 00 :00 (four) Medical times Branch daily. cephALEXin 2021-03- No [id number] 500mg Take 1 [facility] 500 mg 1-28 12-14 capsule by ity of capsule 00:00: 00:00 mouth 4 [place] 00 :00 (four) Medical times Branch daily. azithromyci 2021-03 Yes [id number] 500mg Take 1 [facility] n 500 mg 1-23 tablet by it[facility] of tablet 00:00: mouth in [place] 00 the Medical morning. Branch azithromyci 2021-03 Yes [id number] 500mg Take 1 [facility] n 500 mg 1-23 tablet by it[facility] of tablet 00:00: mouth in [place] 00 the Medical morning. Branch azithromyci 2021-03- No [id number] 500mg Take 1 [facility] n 500 mg 1-23 11-28 tablet by ity o f tablet 00:00: 00:00 mouth in [place] 00 :00 the Medical morning. Branch azithromyci 2021-03- No [id number] 500mg Take 1 [facility] n 500 mg 1-23 11-28 tablet by ity o f tablet 00:00: 00:00 mouth in [place] 00 :00 the Medical morning. Branch CARVEDILOL 2021-03 Yes [id number] TAKE 1 [facility] 6.25 mg 1-21 TABLET BY ity of tablet 00:00: MOUTH [place] 00 TWICE Medical DAILY WITH Branch MEALS CARVEDILOL 2021-03 Yes [id number] TAKE 1 [facility] 6.25 mg 1-21 TABLET BY [facility] tablet 00:00: MOUTH [place] 00 TWICE Medical DAILY WITH Branch MEALS CARVEDILOL 2021-03 Yes [id number] TAKE 1 [facility] 6.25 mg 1-21 TABLET BY [facility] of tablet 00:00: MOUTH [place] 00 TWICE Medical DAILY WITH Branch MEALS CARVEDILOL 2021-03 Yes [id number] TAKE 1 [facility] 6.25 mg 1-21 TABLET BY [facility] of tablet 00:00: MOUTH [place] 00 TWICE Medical DAILY WITH Branch MEALS CARVEDILOL 2021-03 Yes [id number] TAKE 1 [facility] 6.25 mg 1-21 TABLET BY [facility] of tablet 00:00: MOUTH TWICE Medical DAILY WITH Branch MEALS CARVEDILOL 2021-03 Yes [id number] TAKE 1 [facility] 6.25 mg 1-21 TABLET BY [facility] of tablet 00:00: MOUTH [place] 00 TWICE Medical DAILY WITH Branch MEALS CARVEDILOL 2021-03 Yes [id number] TAKE 1 [facility] 6.25 mg 1-21 TABLET BY [facility] of tablet 00:00: MOUTH [place] 00 TWICE Medical DAILY WITH Branch MEALS CARVEDILOL 2021-03 Yes [id number] TAKE 1 [facility] 6.25 mg 1-21 TABLET BY [facility] of tablet 00:00: MOUTH [place] 00 TWICE Medical DAILY WITH Branch MEALS CARVEDILOL 2021-03 Yes [id number] TAKE 1 [facility] 6.25 mg 1-21 TABLET BY [facility] of tablet 00:00: MOUTH [place] 00 TWICE Medical DAILY WITH Branch MEALS CARVEDILOL 2021-03 Yes [id number] TAKE 1 [facility] 6.25 mg 1-21 TABLET BY [facility] of tablet 00:00: MOUTH [place] 00 TWICE Medical DAILY WITH Branch MEALS CARVEDILOL 2021-03 Yes [id number] TAKE 1 [facility] 6.25 mg 1-21 TABLET BY [facility] of tablet 00:00: MOUTH [place] 00 TWICE Medical DAILY WITH Branch MEALS CARVEDILOL 2021-03 Yes [id number] TAKE 1 [facility] 6.25 mg 1-21 TABLET BY [facility] of tablet 00:00: MOUTH TWICE Medical DAILY WITH Branch MEALS CARVEDILOL 2021-03 Yes [id number] TAKE 1 [facility] 6.25 mg 1-21 TABLET BY [facility] of tablet 00:00: MOUTH TWICE Medical DAILY WITH Branch MEALS CARVEDILOL 2021-03 Yes [id number] TAKE 1 [facility] 6.25 mg 1-21 TABLET BY [facility] of tablet 00:00: MOUTH TWICE Medical DAILY WITH Branch MEALS CARVEDILOL 2021-03 Yes [id number] TAKE 1 [facility] 6.25 mg 1-21 TABLET BY [facility] of tablet 00:00: MOUTH TWICE Medical DAILY WITH Branch MEALS CARVEDILOL 2021-03 Yes [id number] TAKE 1 [facility] 6.25 mg 1-21 TABLET BY [facility] of tablet 00:00: MOUTH TWICE Medical DAILY WITH Branch MEALS CARVEDILOL 2021-03 Yes [id number] TAKE 1 [facility] 6.25 mg 1-21 TABLET BY [facility] of tablet 00:00: MOUTH TWICE Medical DAILY WITH Branch MEALS CARVEDILOL 2021-03 Yes [id number] TAKE 1 [facility] 6.25 mg 1-21 TABLET BY [facility] of tablet 00:00: MOUTH TWICE Medical DAILY WITH Branch MEALS CARVEDILOL 2021-03 Yes [id number] TAKE 1 [facility] 6.25 mg 1-21 TABLET BY [facility] of tablet 00:00: MOUTH TWICE Medical DAILY WITH Branch MEALS CARVEDILOL 2021-03 Yes [id number] TAKE 1 [facility] 6.25 mg 1-21 TABLET BY [facility] of tablet 00:00: MOUTH TWICE Medical DAILY WITH Branch MEALS CARVEDILOL 2021-03 Yes [id number] TAKE 1 [facility] 6.25 mg 1-21 TABLET BY [facility] of tablet 00:00: MOUTH TWICE Medical DAILY WITH Branch MEALS CARVEDILOL 2021-03 Yes [id number] TAKE 1 [facility] 6.25 mg 1-21 TABLET BY [facility] of tablet 00:00: MOUTH 00 TWICE Medical DAILY WITH Branch MEALS CARVEDILOL 2021-03 Yes [id number] TAKE 1 [facility] 6.25 mg 1-21 TABLET BY [facility] of tablet 00:00: MOUTH 00 TWICE Medical DAILY WITH Branch MEALS CARVEDILOL 2021-03 Yes [id number] TAKE 1 [facility] 6.25 mg 1-21 TABLET BY [facility] of tablet 00:00: MOUTH [place] 00 TWICE Medical DAILY WITH Branch MEALS CARVEDILOL 2021-03 Yes [id number] TAKE 1 [facility] 6.25 mg 1-21 TABLET BY [facility] of tablet 00:00: MOUTH TWICE Medical DAILY WITH Branch MEALS CARVEDILOL 2021-03 Yes [id number] TAKE 1 [facility] 6.25 mg 1-21 TABLET BY [facility] of tablet 00:00: MOUTH TWICE Medical DAILY WITH Branch MEALS CARVEDILOL 2021-03 Yes [id number] TAKE 1 [facility] 6.25 mg 1-21 TABLET BY [facility] of tablet 00:00: MOUTH TWICE Medical DAILY WITH Branch MEALS CARVEDILOL 2021-03 Yes [id number] TAKE 1 [facility] 6.25 mg 1-21 TABLET BY [facility] of tablet 00:00: MOUTH TWICE Medical DAILY WITH Branch MEALS CARVEDILOL 2021-03 Yes [id number] TAKE 1 [facility] 6.25 mg 1-21 TABLET BY [facility] of tablet 00:00: MOUTH TWICE Medical DAILY WITH Branch MEALS CARVEDILOL 2021-03 Yes [id number] TAKE 1 [facility] 6.25 mg 1-21 TABLET BY [facility] of tablet 00:00: MOUTH TWICE Medical DAILY WITH Branch MEALS CARVEDILOL 2021-03 Yes [id number] TAKE 1 [facility] 6.25 mg 1-21 TABLET BY [facility] of tablet 00:00: MOUTH TWICE Medical DAILY WITH Branch MEALS CARVEDILOL 2021-03 Yes [id number] TAKE 1 [facility] 6.25 mg 1-21 TABLET BY [facility] of tablet 00:00: MOUTH TWICE Medical DAILY WITH Branch MEALS CARVEDILOL 2021-03 Yes [id number] TAKE 1 [facility] 6.25 mg 1-21 TABLET BY [facility] of tablet 00:00: MOUTH TWICE Medical DAILY WITH Branch MEALS CARVEDILOL 2021-03 Yes [id number] TAKE 1 [facility] 6.25 mg 1-21 TABLET BY [facility] of tablet 00:00: MOUTH TWICE Medical DAILY WITH Branch MEALS CARVEDILOL 2021-03 Yes [id number] TAKE 1 [facility] 6.25 mg 1-21 TABLET BY [facility] of tablet 00:00: MOUTH 00 TWICE Medical DAILY WITH Branch MEALS CARVEDILOL 2021-03 Yes [id number] TAKE 1 [facility] 6.25 mg 1-21 TABLET BY [facility] of tablet 00:00: MOUTH TWICE Medical DAILY WITH Branch MEALS CARVEDILOL 2021-03 Yes [id number] TAKE 1 [facility] 6.25 mg 1-21 TABLET BY [facility] of tablet 00:00: MOUTH [place] 00 TWICE Medical DAILY WITH Branch MEALS CARVEDILOL 2021-03 Yes [id number] TAKE 1 [facility] 6.25 mg 1-21 TABLET BY [facility] of tablet 00:00: MOUTH [place] 00 TWICE Medical DAILY WITH Branch MEALS CARVEDILOL 2021-03 Yes [id number] TAKE 1 [facility] 6.25 mg 1-21 TABLET BY [facility] of tablet 00:00: MOUTH [place] 00 TWICE Medical DAILY WITH Branch MEALS CARVEDILOL 2021-03 Yes [id number] TAKE 1 [facility] 6.25 mg 1-21 TABLET BY [facility] of tablet 00:00: MOUTH [place] 00 TWICE Medical DAILY WITH Branch MEALS CARVEDILOL 2021-03 Yes [id number] TAKE 1 [facility] 6.25 mg 1-21 TABLET BY [facility] of tablet 00:00: MOUTH [place] 00 TWICE Medical DAILY WITH Branch MEALS CARVEDILOL 2021-03 Yes [id number] TAKE 1 [facility] 6.25 mg 1-21 TABLET BY [facility] of tablet 00:00: MOUTH [place] 00 TWICE Medical DAILY WITH Branch MEALS CARVEDILOL 2021-03 Yes [id number] TAKE 1 [facility] 6.25 mg 1-21 TABLET BY [facility] of tablet 00:00: MOUTH [place] 00 TWICE Medical DAILY WITH Branch MEALS CARVEDILOL 2021-03 Yes [id number] TAKE 1 [facility] 6.25 mg 1-21 TABLET BY ity of tablet 00:00: MOUTH [place] 00 TWICE Medical DAILY WITH Branch MEALS CARVEDILOL 2021-03 Yes [id number] TAKE 1 [facility] 6.25 mg 1-21 TABLET BY [facility]y of tablet 00:00: MOUTH [place] 00 TWICE Medical DAILY WITH Branch MEALS CARVEDILOL 2021-03 Yes [id number] TAKE 1 [facility] 6.25 mg 1-21 TABLET BY [facility] of tablet 00:00: MOUTH [place] 00 TWICE Medical DAILY WITH Branch MEALS CARVEDILOL 2021-03 Yes [id number] TAKE 1 [facility] 6.25 mg 1-21 TABLET BY [facility] of tablet 00:00: MOUTH [place] 00 TWICE Medical DAILY WITH Branch MEALS allopurinoL 2021-03 Yes 300mg QD Take 1 [facility] (ZYLOPRIM) 1-[address] 300 MG 00:00: (300 mg [facility] tablet 00 total) by l mouth every morning. atorvastati 2021-03 Yes 40mg Q24H Take 1 Meth linda n (LIPITOR) 1-13 tablet (40 st 40 mg 00:00: mg total) [facility] tablet 00 by mouth l daily. BUMETanide 2021-03 Yes TAKE 1 AND M ethodi (BUMEX) 2 1-12 1/2 st MG tablet 00:00: [facility]TS [facility] 00 MOUTH IN l THE MORNING AND 1 TABLET IN THE EVENING KCL 10 mEq 2021-03- No 10meq Take 10 Un jeremie tablet -11 11-11 mEq by ity of 15:34: 00:00 mouth [place] 27 :00 daily. Medical Branch warfarin 2021-03 Yes [id number] [facility] mg tablet 1-11 dosage 10 ity o f 00:00: mg [place] ///[facility] and 7.5 Branch T/Th/S warfarin 5 2021-03 Yes [id number] Current [facility] mg tablet -11 dosage 10 ity o f 00:00: mg [place] [facility]//[facility] and 7.5 Branch T/Th/S warfarin 5 2021-03 Yes [id number] Current [facility] mg tablet 1-11 dosage 10 ity o f 00:00: mg [place] [facility] and 7.5 Branch T/Th/S warfarin 5 2021-03 Yes [id number] Current [facility] mg tablet 1-11 dosage 10 ity o f 00:00: mg [place] [facility]//[facility] and 7.5 Branch T/Th/S warfarin 5 2021-03 Yes [id number] Current [facility] mg tablet 1-11 dosage 10 ity o f 00:00: mg [place] [facility]//[facility] and 7.5 Branch T/Th/S warfarin 5 2021-03 Yes [id number] [facility] mg tablet 1-11 dosage 10 ity o f 00:00: mg [place] [facility] and 7.5 Branch T/Th/S warfarin 5 2021-03 Yes [id number] [facility] mg tablet 1-11 dosage 10 ity o f 00:00: mg [place] [facility]//[facility] and 7.5 Branch T/Th/S warfarin 5 2021-03 Yes [id number] Current [facility] mg tablet 1-11 dosage 10 ity o f 00:00: mg /W/F/[facility] and 7.5 Branch T/Th/S warfarin 5 2021-03 Yes [id number] [facility] mg tablet 1-11 dosage 10 ity o f 00:00: mg /W/F/[facility] and 7.5 Branch T/Th/S warfarin 5 2021-03 Yes [id number] [facility] mg tablet 1-11 dosage 10 ity o f 00:00: mg /W/F/[facility] and 7.5 Branch T/Th/S warfarin 5 2021-03 Yes [id number] [facility] mg tablet 1-11 dosage 10 ity o f 00:00: mg [place] /W/F/[facility] and 7.5 Branch T/Th/S warfarin 5 2021-03 Yes [id number] [facility] mg tablet 1-11 dosage 10 ity o f 00:00: mg [place] /W/F/[facility] and 7.5 Branch T/Th/S warfarin 5 2021-03 Yes [id number] [facility] mg tablet 1-11 dosage 10 ity o f 00:00: mg /W/F/[facility] and 7.5 Branch T/Th/S warfarin 5 2021-03 Yes [id number] [facility] mg tablet 1-11 dosage 10 ity o f 00:00: mg [place] /W/F/[facility] and 7.5 Branch T/Th/S warfarin 5 2021-03 Yes [id number] [facility] mg tablet 1-11 dosage 10 ity o f 00:00: mg [place] /W/F/[facility] and 7.5 Branch T/Th/S warfarin 5 2021-03 Yes [id number] [facility] mg tablet 1-11 dosage 10 ity o f 00:00: mg [place] /W/F/[facility] and 7.5 Branch T/Th/S warfarin 5 2021-03 Yes [id number] [facility] mg tablet 1-11 dosage 10 ity o f 00:00: mg [place] /W/F/[facility] and 7.5 Branch T/Th/S warfarin 5 2021-03 Yes [id number] Current [facility] mg tablet 1-11 dosage 10 ity o f 00:00: mg /W//[facility] and 7.5 Branch T//S warfarin 5 2021-03 Yes [id number] Current [facility] mg tablet 1-11 dosage 10 ity o f 00:00: mg [place] /W//[facility] and [facility].5 Branch T//S warfarin 5 2021-03 Yes [id number] Current [facility] mg tablet 1-11 dosage 10 ity o f 00:00: mg [place] /W//[facility] and [facility]5 Branch T//S warfarin 5 2021-03 Yes [id number] Current [facility] mg tablet 1-11 dosage 10 ity o f 00:00: mg [place] /W//[facility] and 7.5 Branch T//S warfarin 5 2021-03 Yes [id number] Current [facility] mg tablet 1-11 dosage 10 ity o f 00:00: mg [place] ///[facility] and 7.5 Branch T//S KCL 10 mEq 2021-03 Yes [id number] 10meq Take 1 [facility] tablet 1-11 tablet by ity of 00:00: mouth in [place] the Medical morning. Branch warfarin 2021-03 Yes [id number] Current [facility] mg tablet 1-11 dosage 10 ity o f 00:00: mg [place] /W//[facility] and 7.5 Branch T/S KCL 10 mEq 2021-03 Yes [id number] 10meq Take 1 [facility] tablet 1-11 tablet by ity of 00:00: mouth in [place] the Medical morning. Branch warfarin 2021-03 Yes [id number] [facility] mg tablet 1-11 dosage 10 ity o f 00:00: mg [place] /W//[facility] and 7[facility]5 Branch T//S KCL 10 mEq 2021-03 Yes [id number] 10meq Take 1 [facility] tablet 1-11 tablet by ity of 00:00: mouth in [place] the Medical morning. Branch warfarin 2021-03 Yes [id number] [facility] mg tablet 1-11 dosage 10 ity o f 00:00: mg [place] /W//[facility] and 7[facility]5 Branch T//S KCL 10 mEq 2021-03 Yes [id number] 10meq Take 1 [facility] tablet 1-11 tablet by ity of 00:00: mouth in [place] the Medical morning. Branch warfarin 5 2021-03 Yes [id number] Current [facility] mg tablet 1-11 dosage 10 ity o f 00:00: mg [place] /W//[facility] and 7.5 Branch T/Th/S KCL 10 mEq 2021-03 Yes [id number] 10meq Take 1 [facility] tablet 1-11 tablet by ity of 00:00: mouth in [place] the Medical morning. Branch warfarin 2021-03 Yes [id number] Current [facility] mg tablet 1-11 dosage 10 ity o f 00:00: mg [place] /W//[facility] and 7.5 Branch T/Th/S KCL 10 mEq 2021-03 Yes [id number] 10meq Take 1 [facility] tablet 1-11 tablet by ity of 00:00: mouth in [place] the Medical morning. Branch warfarin 2021-03 Yes [id number] Current [facility] mg tablet 1-11 dosage 10 ity o f 00:00: mg [place] ///[facility] and 7.5 Branch T/Th/S KCL 10 mEq 2021-03 Yes [id number] 10meq Take 1 [facility] tablet 1-11 tablet by ity of 00:00: mouth in [place] the Medical morning. Branch warfarin 2021-03 Yes [id number] Current [facility] mg tablet 1-11 dosage 10 ity o f 00:00: mg [place] ///[facility] and 7.5 Branch T/Th/S KCL 10 mEq 2021-03 Yes [id number] 10meq Take 1 [facility] tablet 1-11 tablet by ity of 00:00: mouth in [place] the Medical morning. Branch warfarin 2021-03 Yes [id number] Current [facility] mg tablet 1-11 dosage 10 ity o f 00:00: mg [place] /W//[facility] and 7.5 Branch T/Th/S KCL 10 mEq 2021-03 Yes [id number] 10meq Take 1 [facility] tablet 1-11 tablet by ity of 00:00: mouth in [place] the Medical morning. Branch warfarin 2021-03 Yes [id number] Current [facility] mg tablet 1-11 dosage 10 ity o f 00:00: mg [place] /W//[facility] and 7.5 Branch T/Th/S KCL 10 mEq 2021-03 Yes [id number] 10meq Take 1 [facility] tablet 1-11 tablet by ity of 00:00: mouth in [place] the Medical morning. Branch warfarin 2021-03 Yes [id number] Current [facility] mg tablet 1-11 dosage 10 ity o f 00:00: mg [place] ///[facility] and 7.5 Branch T/Th/S KCL 10 mEq 2021-03 Yes [id number] 10meq Take 1 [facility] tablet 1-11 tablet by ity of 00:00: mouth in [place] the Medical morning. Branch warfarin 2021-03 Yes [id number] Current [facility] mg tablet 1-11 dosage 10 ity o f 00:00: mg [place] /W//[facility] and 7.5 Branch T/Th/S KCL 10 mEq 2021-03 Yes [id number] 10meq Take 1 [facility] tablet 1-11 tablet by ity of 00:00: mouth in [place] the Medical morning. Branch warfarin 2021-03 Yes [id number] Current [facility] mg tablet 1-11 dosage 10 ity o f 00:00: mg [place] /W//[facility] and 7.5 Branch T/Th/S KCL 10 mEq 2021-03 Yes [id number] 10meq Take 1 [facility] tablet 1-11 tablet by ity of 00:00: mouth in [place] the Medical morning. Branch warfarin 2021-03 Yes [id number] Current [facility] mg tablet 1-11 dosage 10 ity o f 00:00: mg [place] /W//[facility] and 7.5 Branch T/Th/S KCL 10 mEq 2021-03 Yes [id number] 10meq Take 1 [facility] tablet 1-11 tablet by ity of 00:00: mouth in [place] the Medical morning. Branch warfarin 5 2021-03 Yes [id number] Current [facility] mg tablet 1-11 dosage 10 ity o f 00:00: mg [place] /W//[facility] 7[facility]5 Branch T/Th/S KCL 10 mEq 2021-03 Yes [id number] 10meq Take 1 [facility] tablet 1-11 tablet by ity of 00:00: mouth in [place] the Medical morning. Branch warfarin 2021-03 Yes [id number] Current [facility] mg tablet 1-11 dosage 10 ity o f 00:00: mg [place] /W//[facility] and 7.5 Branch T/Th/S KCL 10 mEq 2021-03 Yes [id number] 10meq Take 1 [facility] tablet 1-11 tablet by ity of 00:00: mouth in [place] the Medical morning. Branch warfarin 5 2021-03 Yes [id number] Current [facility] mg tablet 1-11 dosage 10 ity o f 00:00: mg [place] /W//[facility] and 7[facility]5 Branch T/Th/S KCL 10 mEq 2021-03 Yes [id number] 10meq Take 1 [facility] tablet 1-11 tablet by ity of 00:00: mouth in [place] the Medical morning. Branch warfarin 5 2021-03 Yes [id number] Current [facility] mg tablet 1-11 dosage 10 ity o f 00:00: mg [place] ///[facility] and 7.5 Branch T/Th/S KCL 10 mEq 2021-03 Yes [id number] 10meq Take 1 [facility] tablet 1-11 tablet by ity of 00:00: mouth in [place] the Medical morning. Branch warfarin 5 2021-03 Yes [id number] [facility] mg tablet 1-11 dosage 10 ity o f 00:00: mg [place] [facility]//[facility] and 7.5 Branch T/Th/S KCL 10 mEq 2021-03 Yes [id number] 10meq Take 1 [facility] tablet 1-11 tablet by ity of 00:00: mouth in [place] the Medical morning. Branch warfarin 5 2021-03 Yes [id number] Current [facility] mg tablet 1-11 dosage 10 ity o f 00:00: mg [place] /W//[facility] and 7.5 Branch T/Th/S KCL 10 mEq 2021-03 Yes [id number] 10meq Take 1 [facility] tablet 1-11 tablet by ity of 00:00: mouth in [place] the Medical morning. Branch warfarin 5 2021-03 Yes [id number] Current [facility] mg tablet 1-11 dosage 10 ity o f 00:00: mg [place] ///[facility] and 7.5 Branch T/Th/S KCL 10 mEq 2021-03 Yes [id number] 10meq Take 1 [facility] tablet 1-11 tablet by ity of 00:00: mouth in [place] the Medical morning. Branch warfarin 2021-03 Yes [id number] Current [facility] mg tablet 1-11 dosage 10 ity o f 00:00: mg [place] ///[facility] and 7.5 Branch T/Th/S KCL 10 mEq 2021-03 Yes [id number] 10meq Take 1 [facility] tablet 1-11 tablet by ity of 00:00: mouth in [place] 00 the Medical morning. Branch warfarin 5 2021-03 Yes [id number] Current [facility] mg tablet 1-11 dosage 10 ity o f 00:00: mg [place] ///[facility] and 7.5 Branch T/Th/S KCL 10 mEq 2021-03 Yes [id number] 10meq Take 1 [facility] tablet 1-11 tablet by ity of 00:00: mouth in [place] the Medical morning. Branch warfarin 5 2021-03 Yes [id number] Current [facility] mg tablet 1-11 dosage 10 ity o f 00:00: mg [place] ///[facility] and 7.5 Branch T/Th/S KCL 10 mEq 2021-03 Yes [id number] 10meq Take 1 [facility] tablet 1-11 tablet by ity of 00:00: mouth in [place] the Medical morning. Branch warfarin 2021-03 Yes [id number] Current [facility] mg tablet 1-11 dosage 10 ity o f 00:00: mg [place] ///[facility] and 7.5 Branch T/Th/S KCL 10 mEq 2021-03 Yes [id number] 10meq Take 1 [facility] tablet 1-11 tablet by ity of 00:00: mouth in [place] the Medical morning. Branch warfarin 2021-03 Yes [id number] Current [facility] mg tablet 1-11 dosage 10 ity o f 00:00: mg [place] W//[facility] and 7.5 Branch T/Th/S KCL 10 mEq 2021-03 Yes [id number] 10meq Take 1 [facility] tablet 1-11 tablet by ity of 00:00: mouth in [place] the Medical morning. Branch warfarin 5 2021-03 Yes [id number] Current [facility] mg tablet 1-11 dosage 10 ity o f 00:00: mg [place] /W//[facility] and 7.5 Branch T/Th/S KCL 10 mEq 2021-03 Yes [id number] 10meq Take 1 [facility] tablet 1-11 tablet by ity of 00:00: mouth in [place] the Medical morning. Branch warfarin 5 2021-03 Yes [id number] Current [facility] mg tablet 1-11 dosage 10 ity o f 00:00: mg [place] ///[facility] and 7.5 Branch T/Th/S KCL 10 mEq 2021-03 Yes [id number] 10meq Take 1 [facility] tablet 1-11 tablet by ity of 00:00: mouth in [place] the Medical morning. Branch warfarin 2021-03 Yes [id number] Current [facility] mg tablet 1-11 dosage 10 ity o f 00:00: mg [place] ///[facility] and [facility]5 Branch T//S KCL 10 mEq 2021-03 Yes [id number] 10meq Take 1 [facility] tablet 1-11 tablet by ity of 00:00: mouth in [place] the Medical morning. Branch warfarin 2021-03 Yes [id number] Current [facility] mg tablet 1-11 dosage 10 ity o f 00:00: mg [place] ///[facility]5 Branch T//S KCL 10 mEq 2021-03 Yes [id number] 10meq Take 1 [facility] tablet 1-11 tablet by ity of 00:00: mouth in [place] the Medical morning. Branch warfarin 2021-03 Yes [id number] Current [facility] mg tablet 1-11 dosage 10 ity o f 00:00: mg [place] /W//[facility] and 7.[facility] [place] T//S KCL 10 mEq 2021-03 Yes [id number] 10meq Take 1 [facility] tablet 1-11 tablet by ity of 00:00: mouth in [place] the Medical morning. Branch warfarin 2021-03 Yes [id number] Current [facility] mg tablet 1-11 dosage 10 ity o f 00:00: mg [place] /W//[facility] and 7[facility]5 Branch T//S warfarin 2021-03 Yes [id number] Current [facility] mg tablet 1-11 dosage 10 ity o f 00:00: mg [place] ///[facility]5 Branch T//S warfarin 5 2021-03 Yes [id number] Current [facility] mg tablet 1-11 dosage 10 ity o f 00:00: mg /W//[facility] and 7[facility]5 Branch T//S warfarin 5 2021-03 Yes [id number] Current [facility] mg tablet 1-11 dosage 10 ity o f 00:00: mg /W//[facility] and 7[facility] Branch T//S KCL 10 mEq 2021-03- No [id number] 10meq Take 1 [facility] tablet 1-11 12-16 tablet by ity of 00:00: 00:00 mouth in [place] 00 :00 the Medical morning. Branch OMEPRAZOLE 2021-03 Yes [id number] 40mg TAKE 1 [facility] 40 mg 1-03 CAPSULE BY ity of capsule 00:00: MOUTH [place] DAILY Medical Branch OMEPRAZOLE 2021-03 Yes [id number] 40mg TAKE 1 [facility] 40 mg 1-03 CAPSULE BY ity of capsule 00:00: MOUTH [place] DAILY Medical Branch OMEPRAZOLE 2021-03 Yes [id number] 40mg TAKE 1 [facility] 40 mg 1-03 CAPSULE BY ity of capsule 00:00: MOUTH [place] DAILY Medical Branch OMEPRAZOLE 2021-03 Yes [id number] 40mg TAKE 1 [facility] 40 mg 1-03 CAPSULE BY ity of capsule 00:00: MOUTH [place] DAILY Medical Branch OMEPRAZOLE 2021-03 Yes [id number] 40mg TAKE 1 [facility] 40 mg 1-03 CAPSULE BY ity of capsule 00:00: [facility] DAILY Medical Branch OMEPRAZOLE 2021-03 Yes [id number] 40mg TAKE 1 [facility] 40 mg 1-03 CAPSULE BY ity of capsule 00:00: MOUTH [place] DAILY Medical Branch OMEPRAZOLE 2021-03 Yes [id number] 40mg TAKE 1 [facility] 40 mg 1-03 CAPSULE BY ity of capsule 00:00: MOUTH [place] DAILY Medical Branch OMEPRAZOLE 2021-03 Yes [id number] 40mg TAKE 1 [facility] 40 mg 1-03 CAPSULE BY ity of capsule 00:00: MOUTH [place] DAILY Medical Branch OMEPRAZOLE 2021-03 Yes [id number] 40mg TAKE 1 [facility] 40 mg 1-03 CAPSULE BY ity of capsule 00:00: MOUTH [place] DAILY Medical Branch OMEPRAZOLE 2021-03 Yes [id number] 40mg TAKE 1 [facility] 40 mg 1-03 CAPSULE BY ity of capsule 00:00: MOUTH [place] 00 DAILY Medical Branch OMEPRAZOLE 2021- Yes [id number] 40mg TAKE 1 [facility] 40 mg 1-03 CAPSULE BY ity of capsule 00:00: MOUTH [place] DAILY Medical Branch OMEPRAZOLE 2021- Yes [id number] 40mg TAKE 1 [facility] 40 mg 1-03 CAPSULE BY ity of capsule 00:00: MOUTH [place] DAILY Medical Branch OMEPRAZOLE 2021- Yes [id number] 40mg TAKE 1 [facility] 40 mg 1-03 CAPSULE BY ity of capsule 00:00: MOUTH [place] DAILY Medical Branch OMEPRAZOLE 2021- Yes [id number] 40mg TAKE 1 [facility] 40 mg 1-03 CAPSULE BY ity of capsule 00:00: MOUTH [place] DAILY Medical Branch OMEPRAZOLE 2021- Yes [id number] 40mg TAKE 1 [facility] 40 mg 1-03 CAPSULE BY ity of capsule 00:00: MOUTH [place] DAILY Medical Branch OMEPRAZOLE 2021- Yes [id number] 40mg TAKE 1 [facility] 40 mg 1-03 CAPSULE BY ity of capsule 00:00: MOUTH [place] DAILY Medical Branch OMEPRAZOLE 2021- Yes [id number] 40mg TAKE 1 [facility] 40 mg 1-03 CAPSULE BY ity of capsule 00:00: MOUTH [place] DAILY Medical Branch OMEPRAZOLE 2021- Yes [id number] 40mg TAKE 1 [facility] 40 mg 1-03 CAPSULE BY ity of capsule 00:00: MOUTH [place] DAILY Medical Branch OMEPRAZOLE 2021- Yes [id number] 40mg TAKE 1 [facility] 40 mg 1-03 CAPSULE BY ity of capsule 00:00: MOUTH [place] DAILY Medical Branch OMEPRAZOLE 2021- Yes [id number] 40mg TAKE 1 [facility] 40 mg 1-03 CAPSULE BY ity of capsule 00:00: MOUTH [place] DAILY Medical Branch OMEPRAZOLE 2021- Yes [id number] 40mg TAKE 1 [facility] 40 mg 1-03 CAPSULE BY ity of capsule 00:00: MOUTH [place] DAILY Medical Branch GABAPENTIN 2021- Yes [id number] TAKE 2 [facility] 300 mg 1-03 CAPSULES ity of capsule 00:00: BY MOUTH [place] 00 TWICE Medical DAILY. Branch OMEPRAZOLE 2021- Yes [id number] 40mg TAKE 1 [facility] 40 mg 1-03 CAPSULE BY ity of capsule 00:00: MOUTH [place] DAILY Medical Branch GABAPENTIN 2021- Yes [id number] TAKE 2 [facility] 300 mg 1-03 CAPSULES ity of capsule 00:00: BY MOUTH [place] 00 TWICE Medical DAILY. Branch OMEPRAZOLE 2021- Yes [id number] 40mg TAKE 1 [facility] 40 mg 1-03 CAPSULE BY [facility] capsule 00:00: MOUTH [place] 00 DAILY Medical Branch GABAPENTIN 2021- Yes [id number] TAKE 2 [facility] 300 mg 1-03 CAPSULES [facility] of capsule 00:00: BY MOUTH [place] 00 TWICE Medical DAILY. Branch OMEPRAZOLE 2021-03 Yes [id number] 40mg TAKE 1 [facility] 40 mg 1-03 CAPSULE BY [facility] of capsule 00:00: MOUTH [place] 00 DAILY Medical Branch GABAPENTIN 2021- Yes [id number] TAKE 2 [facility] 300 mg 1-03 CAPSULES [facility] of capsule 00:00: BY MOUTH [place] 00 TWICE Medical DAILY. Branch OMEPRAZOLE 2021-03 Yes [id number] 40mg TAKE 1 [facility] 40 mg 1-03 CAPSULE BY [facility] of capsule 00:00: MOUTH [place] 00 DAILY Medical Branch GABAPENTIN 2021- Yes [id number] TAKE 2 [facility] 300 mg 1-03 CAPSULES [facility] of capsule 00:00: BY MOUTH [place] 00 TWICE Medical DAILY. Branch OMEPRAZOLE 2021-03 Yes [id number] 40mg TAKE 1 [facility] 40 mg 1-03 CAPSULE BY [facility] of capsule 00:00: MOUTH [place] 00 DAILY Medical Branch GABAPENTIN 2021- Yes [id number] TAKE 2 [facility] 300 mg 1-03 CAPSULES [facility] of capsule 00:00: BY MOUTH [place] 00 TWICE Medical DAILY. Branch OMEPRAZOLE 2021- Yes [id number] 40mg TAKE 1 [facility] 40 mg 1-03 CAPSULE BY [facility] of capsule 00:00: MOUTH [place] 00 DAILY Medical Branch GABAPENTIN 2021- Yes [id number] TAKE 2 [facility] 300 mg 1-03 CAPSULES [facility] of capsule 00:00: BY MOUTH [place] 00 TWICE Medical DAILY. Branch OMEPRAZOLE 2021- Yes [id number] 40mg TAKE 1 [facility] 40 mg 1-03 CAPSULE BY [facility] of capsule 00:00: MOUTH [place] 00 DAILY Medical Branch GABAPENTIN 2021- Yes [id number] TAKE 2 [facility] 300 mg 1-03 CAPSULES [facility] of capsule 00:00: BY MOUTH [place] 00 TWICE Medical DAILY. Branch OMEPRAZOLE 2021- Yes [id number] 40mg TAKE 1 [facility] 40 mg 1-03 CAPSULE BY [facility] of capsule 00:00: MOUTH [place] 00 DAILY Medical Branch GABAPENTIN 2021- Yes [id number] TAKE 2 [facility] 300 mg 1-03 CAPSULES [facility] of capsule 00:00: BY MOUTH [place] 00 TWICE Medical DAILY. Branch OMEPRAZOLE 2021- Yes [id number] 40mg TAKE 1 [facility] 40 mg 1-03 CAPSULE BY [facility] of capsule 00:00: MOUTH [place] 00 DAILY Medical Branch GABAPENTIN 2021- Yes [id number] TAKE 2 [facility] 300 mg 1-03 CAPSULES [facility] of capsule 00:00: BY MOUTH [place] 00 TWICE Medical DAILY. Branch OMEPRAZOLE 2021- Yes [id number] 40mg TAKE 1 [facility] 40 mg 1-03 CAPSULE BY [facility] capsule 00:00: MOUTH [place] 00 DAILY Medical Branch GABAPENTIN 2021- Yes [id number] TAKE 2 [facility] 300 mg 1-03 CAPSULES [facility] of capsule 00:00: BY MOUTH [place] 00 TWICE Medical DAILY. Branch OMEPRAZOLE 2021- Yes [id number] 40mg TAKE 1 [facility] 40 mg 1-03 CAPSULE BY [facility] of capsule 00:00: MOUTH [place] 00 DAILY Medical Branch GABAPENTIN 2021- Yes [id number] TAKE 2 [facility] 300 mg 1-03 CAPSULES [facility] of capsule 00:00: BY MOUTH [place] 00 TWICE Medical DAILY. Branch OMEPRAZOLE 2021- Yes [id number] 40mg TAKE 1 [facility] 40 mg 1-03 CAPSULE BY [facility] of capsule 00:00: MOUTH [place] 00 DAILY Medical Branch GABAPENTIN 2021- Yes [id number] TAKE 2 [facility] 300 mg 1-03 CAPSULES [facility] of capsule 00:00: BY MOUTH [place] 00 TWICE Medical DAILY. Branch OMEPRAZOLE 2021- Yes [id number] 40mg TAKE 1 [facility] 40 mg 1-03 CAPSULE BY [facility] of capsule 00:00: MOUTH [place] 00 DAILY Medical Branch GABAPENTIN 2021- Yes [id number] TAKE 2 [facility] 300 mg 1-03 CAPSULES [facility] of capsule 00:00: BY MOUTH [place] 00 TWICE Medical DAILY. Branch OMEPRAZOLE 2021- Yes [id number] 40mg TAKE 1 [facility] 40 mg 1-03 CAPSULE BY [facility] of capsule 00:00: MOUTH [place] 00 DAILY Medical Branch GABAPENTIN 2021-1 Yes [id number] TAKE 2 [facility] 300 mg 1-03 CAPSULES [facility] of capsule 00:00: BY MOUTH [place] 00 TWICE Medical DAILY. Branch OMEPRAZOLE 2021- Yes [id number] 40mg TAKE 1 [facility] 40 mg 1-03 CAPSULE BY [facility] capsule 00:00: MOUTH [place] 00 DAILY Medical Branch GABAPENTIN 2021- Yes [id number] TAKE 2 [facility] 300 mg 1-03 CAPSULES [facility] of capsule 00:00: BY MOUTH [place] 00 TWICE Medical DAILY. Branch OMEPRAZOLE 2021- Yes [id number] 40mg TAKE 1 [facility] 40 mg 1-03 CAPSULE BY [facility] of capsule 00:00: MOUTH [place] 00 DAILY Medical Branch GABAPENTIN 2021- Yes [id number] TAKE 2 [facility] 300 mg 1-03 CAPSULES [facility] of capsule 00:00: BY MOUTH [place] 00 TWICE Medical DAILY. Branch OMEPRAZOLE 2021-03 Yes [id number] 40mg TAKE 1 [facility] 40 mg 1-03 CAPSULE BY [facility] of capsule 00:00: MOUTH [place] 00 DAILY Medical Branch GABAPENTIN 2021- Yes [id number] TAKE 2 [facility] 300 mg 1-03 CAPSULES [facility] of capsule 00:00: BY MOUTH [place] 00 TWICE Medical DAILY. Branch OMEPRAZOLE 2021-03 Yes [id number] 40mg TAKE 1 [facility] 40 mg 1-03 CAPSULE BY [facility] of capsule 00:00: MOUTH [place] 00 DAILY Medical Branch GABAPENTIN 2021- Yes [id number] TAKE 2 [facility] 300 mg 1-03 CAPSULES [facility] of capsule 00:00: BY MOUTH [place] 00 TWICE Medical DAILY. Branch OMEPRAZOLE 2021- Yes [id number] 40mg TAKE 1 [facility] 40 mg 1-03 CAPSULE BY [facility] of capsule 00:00: MOUTH [place] 00 DAILY Medical Branch GABAPENTIN 2021- Yes [id number] TAKE 2 [facility] 300 mg 1-03 CAPSULES [facility] of capsule 00:00: BY MOUTH [place] 00 TWICE Medical DAILY. Branch OMEPRAZOLE 2021- Yes [id number] 40mg TAKE 1 [facility] 40 mg 1-03 CAPSULE BY [facility] of capsule 00:00: MOUTH [place] 00 DAILY Medical Branch GABAPENTIN 2021- Yes [id number] TAKE 2 [facility] 300 mg 1-03 CAPSULES [facility] of capsule 00:00: BY MOUTH [place] 00 TWICE Medical DAILY. Branch OMEPRAZOLE 2021- Yes [id number] 40mg TAKE 1 [facility] 40 mg 1-03 CAPSULE BY [facility] of capsule 00:00: MOUTH [place] 00 DAILY Medical Branch GABAPENTIN 2021- Yes [id number] TAKE 2 [facility] 300 mg 1-03 CAPSULES [facility] of capsule 00:00: BY MOUTH [place] 00 TWICE Medical DAILY. Branch OMEPRAZOLE 2021-03 Yes [id number] 40mg TAKE 1 [facility] 40 mg 1-03 CAPSULE BY [facility] of capsule 00:00: MOUTH [place] 00 DAILY Medical Branch GABAPENTIN 2021- Yes [id number] TAKE 2 [facility] 300 mg 1-03 CAPSULES [facility] of capsule 00:00: BY MOUTH [place] 00 TWICE Medical DAILY. Branch OMEPRAZOLE 2021-03 Yes [id number] 40mg TAKE 1 [facility] 40 mg 1-03 CAPSULE BY [facility] of capsule 00:00: MOUTH [place] 00 DAILY Medical Branch GABAPENTIN 2021- Yes [id number] TAKE 2 [facility] 300 mg 1-03 CAPSULES [facility] of capsule 00:00: BY MOUTH [place] 00 TWICE Medical DAILY. Branch OMEPRAZOLE 2021-03 Yes [id number] 40mg TAKE 1 [facility] 40 mg 1-03 CAPSULE BY [facility] of capsule 00:00: MOUTH [place] 00 DAILY Medical Branch GABAPENTIN 2021-03 Yes [id number] TAKE 2 [facility] 300 mg 1-03 CAPSULES [facility] of capsule 00:00: BY MOUTH [place] 00 TWICE Medical DAILY. Branch OMEPRAZOLE 2021-03 Yes [id number] 40mg TAKE 1 [facility] 40 mg 1-03 CAPSULE BY [facility] of capsule 00:00: MOUTH [place] 00 DAILY Medical Branch GABAPENTIN 2021- Yes [id number] TAKE 2 [facility] 300 mg 1-03 CAPSULES [facility] of capsule 00:00: BY MOUTH [place] 00 TWICE Medical DAILY. Branch OMEPRAZOLE 2021-03 Yes [id number] 40mg TAKE 1 [facility] 40 mg 1-03 CAPSULE BY [facility] of capsule 00:00: MOUTH [place] 00 DAILY Medical Branch GABAPENTIN 2021- Yes [id number] TAKE 2 [facility] 300 mg 1-03 CAPSULES [facility] of capsule 00:00: BY MOUTH [place] 00 TWICE Medical DAILY. Branch OMEPRAZOLE 2021-03 Yes [id number] 40mg TAKE 1 [facility] 40 mg 1-03 CAPSULE BY [facility] of capsule 00:00: MOUTH [place] 00 DAILY Medical Branch OMEPRAZOLE 2021- Yes [id number] 40mg TAKE 1 [facility] 40 mg 1-03 CAPSULE BY [facility] of capsule 00:00: MOUTH [place] 00 DAILY Medical Branch OMEPRAZOLE 2021- Yes [id number] 40mg TAKE 1 [facility] 40 mg 1-03 CAPSULE BY [facility] of capsule 00:00: MOUTH [place] 00 DAILY Medical Branch OMEPRAZOLE 2021- Yes [id number] 40mg TAKE 1 [facility] 40 mg 1-03 CAPSULE BY [facility] of capsule 00:00: MOUTH [place] 00 DAILY Medical Branch OMEPRAZOLE 2021-03 Yes [id number] 40mg TAKE 1 [facility] 40 mg 1-03 CAPSULE BY [facility] of capsule 00:00: MOUTH [place] 00 DAILY Medical Branch OMEPRAZOLE 2021-03 Yes [id number] 40mg TAKE 1 [facility] 40 mg 1-03 CAPSULE BY [facility] of capsule 00:00: MOUTH [place] 00 DAILY Medical Branch OMEPRAZOLE 2021-03 Yes [id number] 40mg TAKE 1 [facility] 40 mg 1-03 CAPSULE BY [facility] of capsule 00:00: MOUTH [place] 00 DAILY Medical Branch OMEPRAZOLE 2021-03 Yes [id number] 40mg TAKE 1 [facility] 40 mg 1-03 CAPSULE BY [facility] of capsule 00:00: MOUTH [place] 00 DAILY Medical Branch OMEPRAZOLE 2021-03 Yes [id number] 40mg TAKE 1 [facility] 40 mg 1-03 CAPSULE BY [facility] of capsule 00:00: MOUTH [place] DAILY Medical Branch OMEPRAZOLE 2021-03 Yes [id number] 40mg TAKE 1 [facility] 40 mg 1-03 CAPSULE BY [facility] of capsule 00:00: MOUTH [place] DAILY Medical Branch OMEPRAZOLE 2021-03 Yes [id number] 40mg TAKE 1 [facility] 40 mg 1-03 CAPSULE BY [facility] of capsule 00:00: MOUTH [place] 00 DAILY Medical Branch GABAPENTIN 2021-03- No [id number] TAKE 2 [facility] 300 mg 1-03 12-14 CAPSULES [facility] of capsule 00:00: 00:00 BY MOUTH [place] 00 :00 TWICE Medical DAILY. Branch GABAPENTIN 2021-03- No [id number] TAKE 2 [facility] 300 mg 1-03 12-14 CAPSULES [facility] of capsule 00:00: 00:00 BY MOUTH [place] 00 :00 TWICE Medical DAILY. Branch mexiletine 2021-03 Yes [id number] 200mg Take 1 [facility] 200 mg 0-27 capsule by [facility] of capsule 00:00: mouth [place] 00 every 8 Medical (eight) Branch hours. mexiletine 2021-03 Yes [id number] 200mg Take 1 [facility] 200 mg 0-27 capsule by [facility] of capsule 00:00: mouth [place] 00 every 8 Medical (eight) Branch hours. mexiletine 2021-03 Yes [id number] 200mg Take 1 [facility] 200 mg 0-27 capsule by [facility] of capsule 00:00: mouth [place] 00 every 8 Medical (eight) Branch hours. mexiletine 2021-03 Yes [id number] 200mg Take 1 [facility] 200 mg 0-27 capsule by [facility] of capsule 00:00: mouth [place] 00 every 8 Medical (eight) Branch hours. mexiletine 2021- Yes [id number] 200mg Take 1 [facility] 200 mg 0-27 capsule by [facility] of capsule 00:00: mouth [place] 00 every 8 Medical (eight) Branch hours. mexiletine 2021- Yes [id number] 200mg Take 1 [facility] 200 mg 0-27 capsule by [facility] of capsule 00:00: mouth [place] 00 every 8 Medical (eight) Branch hours. mexiletine 2021-03 Yes [id number] 200mg Take 1 [facility] 200 mg 0-27 capsule by [facility] of capsule 00:00: mouth [place] 00 every 8 Medical (eight) Branch hours. mexiletine 2021- Yes [id number] 200mg Take 1 [facility] 200 mg 0-27 capsule by [facility] of capsule 00:00: mouth [place] 00 every 8 Medical (eight) Branch hours. mexiletine 2021-03 Yes [id number] 200mg Take 1 [facility] 200 mg 0-27 capsule by [facility] of capsule 00:00: mouth [place] 00 every 8 Medical (eight) Branch hours. mexiletine 2021-03 Yes [id number] 200mg Take 1 [facility] 200 mg 0-27 capsule by [facility] of capsule 00:00: mouth [place] 00 every 8 Medical (eight) Branch hours. mexiletine 2021-03 Yes [id number] 200mg Take 1 [facility] 200 mg 0-27 capsule by [facility] of capsule 00:00: mouth [place] 00 every 8 Medical (eight) Branch hours. mexiletine 2021- Yes [id number] 200mg Take 1 [facility] 200 mg 0-27 capsule by [facility] of capsule 00:00: mouth [place] 00 every 8 Medical (eight) Branch hours. mexiletine 2021- Yes [id number] 200mg Take 1 [facility] 200 mg 0-27 capsule by [facility] of capsule 00:00: mouth [place] 00 every 8 Medical (eight) Branch hours. mexiletine 2021-1 Yes [id number] 200mg Take 1 [facility] 200 mg 0-27 capsule by [facility] of capsule 00:00: mouth [place] 00 every 8 Medical (eight) Branch hours. mexiletine 2021-1 Yes [id number] 200mg Take 1 [facility] 200 mg 0-27 capsule by [facility] of capsule 00:00: mouth [place] 00 every 8 Medical (eight) Branch hours. mexiletine 2021- Yes [id number] 200mg Take 1 [facility] 200 mg 0-27 capsule by [facility] of capsule 00:00: mouth [place] 00 every 8 Medical (eight) Branch hours. mexiletine 2021-1 Yes [id number] 200mg Take 1 [facility] 200 mg 0-27 capsule by [facility] of capsule 00:00: mouth [place] 00 every 8 Medical (eight) Branch hours. mexiletine 2021- Yes [id number] 200mg Take 1 [facility] 200 mg 0-27 capsule by [facility] of capsule 00:00: mouth [place] 00 every 8 Medical (eight) Branch hours. mexiletine 2021- Yes [id number] 200mg Take 1 [facility] 200 mg 0-27 capsule by [facility] of capsule 00:00: mouth [place] 00 every 8 Medical (eight) Branch hours. mexiletine 2021- Yes [id number] 200mg Take 1 [facility] 200 mg 0-27 capsule by [facility] of capsule 00:00: mouth [place] 00 every 8 Medical (eight) Branch hours. mexiletine 2021-03 Yes [id number] 200mg Take 1 [facility] 200 mg 0-27 capsule by [facility] of capsule 00:00: mouth [place] 00 every 8 Medical (eight) Branch hours. mexiletine 2021-03 Yes [id number] 200mg Take 1 [facility] 200 mg 0-27 capsule by [facility] of capsule 00:00: mouth [place] 00 every 8 Medical (eight) Branch hours. mexiletine 2021-03 Yes [id number] 200mg Take 1 [facility] 200 mg 0-27 capsule by [facility] of capsule 00:00: mouth [place] 00 every 8 Medical (eight) Branch hours. mexiletine 2021- Yes [id number] 200mg Take 1 [facility] 200 mg 0-27 capsule by [facility] of capsule 00:00: mouth [place] 00 every 8 Medical (eight) Branch hours. mexiletine 2021-1 Yes [id number] 200mg Take 1 [facility] 200 mg 0-27 capsule by [facility] of capsule 00:00: mouth [place] 00 every 8 Medical (eight) Branch hours. mexiletine 2021-1 Yes [id number] 200mg Take 1 [facility] 200 mg 0-27 capsule by [facility] of capsule 00:00: mouth [place] 00 every 8 Medical (eight) Branch hours. mexiletine 2021- Yes [id number] 200mg Take 1 [facility] 200 mg 0-27 capsule by [facility] of capsule 00:00: mouth [place] 00 every 8 Medical (eight) Branch hours. mexiletine 2021- Yes [id number] 200mg Take 1 [facility] 200 mg 0-27 capsule by [facility] of capsule 00:00: mouth [place] 00 every 8 Medical (eight) Branch hours. mexiletine 2021-1 Yes [id number] 200mg Take 1 [facility] 200 mg 0-27 capsule by [facility] of capsule 00:00: mouth [place] 00 every 8 Medical (eight) Branch hours. mexiletine 2021- Yes [id number] 200mg Take 1 [facility] 200 mg 0-27 capsule by [facility] of capsule 00:00: mouth [place] 00 every 8 Medical (eight) Branch hours. mexiletine 2021- Yes [id number] 200mg Take 1 [facility] 200 mg 0-27 capsule by [facility] of capsule 00:00: mouth [place] 00 every 8 Medical (eight) Branch hours. mexiletine 2021- Yes [id number] 200mg Take 1 [facility] 200 mg 0-27 capsule by [facility] of capsule 00:00: mouth [place] 00 every 8 Medical (eight) Branch hours. mexiletine 2021-03 Yes [id number] 200mg Take 1 [facility] 200 mg 0-27 capsule by [facility] of capsule 00:00: mouth [place] 00 every 8 Medical (eight) Branch hours. mexiletine 2021- Yes [id number] 200mg Take 1 [facility] 200 mg 0-27 capsule by [facility] of capsule 00:00: mouth [place] 00 every 8 Medical (eight) Branch hours. mexiletine 2021- Yes [id number] 200mg Take 1 [facility] 200 mg 0-27 capsule by [facility] of capsule 00:00: mouth [place] 00 every 8 Medical (eight) Branch hours. mexiletine 2021- Yes [id number] 200mg Take 1 [facility] 200 mg 0-27 capsule by [facility] of capsule 00:00: mouth [place] 00 every 8 Medical (eight) Branch hours. mexiletine 2021-1 Yes [id number] 200mg Take 1 [facility] 200 mg 0-27 capsule by [facility] of capsule 00:00: mouth [place] 00 every 8 Medical (eight) Branch hours. mexiletine 2021-1 Yes [id number] 200mg Take 1 [facility] 200 mg 0-27 capsule by [facility] of capsule 00:00: mouth [place] 00 every 8 Medical (eight) Branch hours. mexiletine 2021-1 Yes [id number] 200mg Take 1 [facility] 200 mg 0-27 capsule by [facility] of capsule 00:00: mouth [place] 00 every 8 Medical (eight) Branch hours. mexiletine 2021-1 Yes [id number] 200mg Take 1 [facility] 200 mg 0-27 capsule by [facility] of capsule 00:00: mouth [place] 00 every 8 Medical (eight) Branch hours. mexiletine 2021-1 Yes [id number] 200mg Take 1 [facility] 200 mg 0-27 capsule by [facility] of capsule 00:00: mouth [place] 00 every 8 Medical (eight) Branch hours. mexiletine 2021-03 Yes [id number] 200mg Take 1 [facility] 200 mg 0-27 capsule by [facility] of capsule 00:00: mouth [place] 00 every 8 Medical (eight) Branch hours. mexiletine 2021- Yes [id number] 200mg Take 1 [facility] 200 mg 0-27 capsule by [facility] of capsule 00:00: mouth [place] 00 every 8 Medical (eight) Branch hours. mexiletine 2021- Yes [id number] 200mg Take 1 [facility] 200 mg 0-27 capsule by [facility] of capsule 00:00: mouth [place] 00 every 8 Medical (eight) Branch hours. mexiletine 2021-03 Yes [id number] 200mg Take 1 [facility] 200 mg 0-27 capsule by [facility] of capsule 00:00: mouth [place] 00 every 8 Medical (eight) Branch hours. mexiletine 2021- Yes [id number] 200mg Take 1 [facility] 200 mg 0-27 capsule by [facility] of capsule 00:00: mouth [place] 00 every 8 Medical (eight) Branch hours. mexiletine 2021- Yes [id number] 200mg Take 1 [facility] 200 mg 0-27 capsule by [facility] of capsule 00:00: mouth [place] 00 every 8 Medical (eight) Branch hours. mexiletine 2021-1 Yes [id number] 200mg Take 1 [facility] 200 mg 0-27 capsule by [facility] of capsule 00:00: mouth [place] 00 every 8 Medical (eight) Branch hours. mexiletine 2021-1 Yes [id number] 200mg Take 1 [facility] 200 mg 0-27 capsule by [facility] of capsule 00:00: mouth [place] 00 every 8 Medical (eight) Branch hours. mexiletine 2021-1 Yes [id number] 200mg Take 1 [facility] 200 mg 0-27 capsule by [facility] of capsule 00:00: mouth [place] 00 every 8 Medical (eight) Branch hours. mexiletine 2021-03 Yes [id number] 200mg Take 1 [facility] 200 mg 0-27 capsule by [facility] of capsule 00:00: mouth [place] 00 every 8 Medical (eight) Branch hours. mexiletine 2021- Yes [id number] 200mg Take 1 [facility] 200 mg 0-27 capsule by [facility] of capsule 00:00: mouth [place] 00 every 8 Medical (eight) Branch hours. mexiletine 2021-03 Yes [id number] 200mg Take 1 [facility] 200 mg 0-27 capsule by [facility] of capsule 00:00: mouth [place] 00 every 8 Medical (eight) Branch hours. mexiletine 2021-03 Yes [id number] 200mg Take 1 [facility] 200 mg 0-27 capsule by [facility] of capsule 00:00: mouth [place] 00 every 8 Medical (eight) Branch hours. mexiletine 2021-03 Yes [id number] 200mg Take 1 [facility] 200 mg 0-27 capsule by [facility] of capsule 00:00: mouth [place] 00 every 8 Medical (eight) Branch hours. mexiletine 2021-03 Yes [id number] 200mg Take 1 [facility] 200 mg 0-27 capsule by [facility] of capsule 00:00: mouth [place] 00 every 8 Medical (eight) Branch hours. mexiletine 2021-03 Yes [id number] 200mg Take 1 [facility] 200 mg 0-27 capsule by [facility] of capsule 00:00: mouth [place] 00 every 8 Medical (eight) Branch hours. mexiletine 2021-033- No [id number] 200mg Take 1 [facility] 200 mg 0-27 04-17 capsule by [facility] of capsule 00:00: 00:00 mouth [place] 00 :00 every 8 Medical (eight) Branch hours. warfarin 2021-03 Yes [id number] 10mg Take 2 [facility] mg tablet 0-26 tablets by ity of 00:00: mouth [place] 00 every Medical evening. Branch Current dosage 10mg x 5 days/week, 7.5mg x 2 days /week warfarin 5 2021-03 Yes [id number] 10mg Take 2 [facility] mg tablet 0-26 tablets by ity of 00:00: mouth [place] 00 every Medical evening. Branch Current dosage 10mg x 5 days/week, 7.5mg x 2 days /week warfarin 5 2021- Yes [id number] 10mg Take 2 [facility] mg tablet 0-26 tablets by [facility]y of 00:00: mouth [place] 00 every Medical evening. Branch Current dosage 10mg x 5 days/week, 7.5mg x 2 days /week warfarin 2021-03 Yes [id number] 10mg Take 2 [facility] mg tablet 0-26 tablets by ity of 00:00: mouth [place] 00 every Medical evening. Branch Current dosage 10mg x 5 days/week, 7.5mg x 2 days /week warfarin 2021-03 Yes [id number] 10mg Take 2 [facility] mg tablet 0-26 tablets by ity of 00:00: mouth [place] 00 every Medical evening. Branch Current dosage 10mg x 5 days/week, 7.5mg x 2 days /week warfarin 2021-03 Yes [id number] 10mg Take 2 [facility] mg tablet 0-26 tablets by ity of 00:00: mouth [place] 00 every Medical evening. Branch Current dosage 10mg x 5 days/week, 7.5mg x 2 days /week warfarin 2021-03 Yes [id number] 10mg Take 2 [facility] mg tablet 0-26 tablets by ity of 00:00: mouth [place] 00 every Medical evening. Branch Current dosage 10mg x 5 days/week, 7.5mg x 2 days /week warfarin 2021-03 Yes [id number] 10mg Take 2 [facility] mg tablet 0-26 tablets by ity of 00:00: mouth [place] 00 every Medical evening. Branch Current dosage 10mg x 5 days/week, 7.5mg x 2 days /week warfarin 2021-03- No [id number] 10mg Take 2 [facility] mg tablet 0-26 11-11 tablets by ity of 00:00: 00:00 mouth [place] 00 :00 every Medical evening. Branch Current dosage 10mg x 5 days/week, 7.5mg x 2 days /week warfarin 2021-03 Yes [id number] 7.5mg Take 1 [facility] 7.5 mg 0-14 tablet by ity of tablet 00:00: mouth [place] 00 every Medical evening. Branch Current dosage 10mg 5xweek and 7.5mg 2xweek warfarin 2021-03- No [id number] 7.5mg Take 1 [facility] 7.5 mg 0-14 [...] by ity of tablet 14:18: mouth in [place] 32 the Medical morning. Branch bumetanide Yes [...] [place] 32 the Medical morning. Branch bumetanide 2021-0 Yes 2mg Take 2 mg [facility] 2 mg tablet 9-29 by mouth ity of 14:18: daily. 3 [place] 32 mg AM and Medical 2 mg PM. Branch KCL 10 mEq 0 Yes 10meq Take 10 [facility] vers tablet 9-29 mEq by ity of 14:18: mouth [place] 32 daily. Medical Branch spironolact 0 Yes 12.5mg Take 12.5 [facility] one 25 mg 9-29 mg by ity of tablet 14:18: mouth in [place] [address] the Medical morning. Branch bumetanide 2021-0 Yes 2mg Take 2 mg [facility] 2 mg tablet 9-29 by mouth ity of 14:18: daily. 3 [place] 32 mg AM and Medical 2 mg PM. Branch KCL 10 mEq 0 Yes 10meq Take 10 [facility] vers tablet 9-29 mEq by ity of 14:18: mouth [place] daily. Medical Branch spironolact 0 Yes 12.5mg Take 12.5 [facility] one 25 mg 9-29 mg by ity of tablet 14:18: mouth in [place] [address] the Medical morning. Branch bumetanide 0 Yes 2mg Take 2 mg [facility] 2 mg tablet 9-29 by mouth ity of 14:18: daily. 3 [place] 32 mg AM and Medical 2 mg PM. Branch KCL 10 mEq 0 Yes 10meq Take 10 [facility] vers tablet 9-29 mEq by ity of 14:18: mouth [place] daily. Medical Branch spironolact 2021-0 Yes 12.5mg Take 12.5 [facility] one 25 mg 9-29 mg by ity of tablet 14:18: mouth in [place] [address] the Medical morning. Branch bumetanide 2021-0 Yes 2mg Take 2 mg [facility] 2 mg tablet 9-29 by mouth ity of 14:18: daily. 3 [place] 32 mg AM and Medical 2 mg PM. Branch spironolact 2021-0 Yes 12.5mg Take 12.5 [facility] one 25 mg 9-29 mg by ity of tablet 14:18: mouth in [place] [address] the Medical morning. Branch bumetanide 2021-0 Yes 2mg Take 2 mg [facility] 2 mg tablet 9-29 by mouth ity of 14:18: daily. 3 [place] 32 mg AM and Medical 2 mg PM. Branch spironolact 2022-0 Yes 12.5mg Take 12.5 [facility] one 25 mg 9-29 mg by ity of tablet 14:18: mouth in [place] [address] the Medical morning. Branch bumetanide 2022-0 Yes 2mg Take 2 mg [facility] 2 mg tablet 9-29 by mouth ity of 14:18: daily. 3 [place] 32 mg AM and Medical 2 mg PM. Branch spironolact 2022-0 Yes 12.5mg Take 12.5 [facility] one 25 mg 9-29 mg by ity of tablet 14:18: mouth in [place] [address] the Medical morning. Branch bumetanide 2022-0 Yes 2mg Take 2 mg [facility] 2 mg tablet 9-29 by mouth ity of 14:18: daily. 3 [place] 32 mg AM and Medical 2 mg PM. Branch spironolact 2022-0 Yes 12.5mg Take 12.5 [facility] one 25 mg 9-29 mg by ity of tablet 14:18: mouth in [place] [address] the Medical morning. Branch bumetanide 2022-0 Yes 2mg Take 2 mg [facility] 2 mg tablet 9-29 by mouth ity of 14:18: daily. 3 [place] 32 mg AM and Medical 2 mg PM. Branch spironolact 2022-0 Yes 12.5mg Take 12.5 [facility] one 25 mg 9-29 mg by ity of tablet 14:18: mouth in [place] [address] the Medical morning. Branch bumetanide 2022-0 Yes 2mg Take 2 mg [facility] 2 mg tablet 9-29 by mouth ity of 14:18: daily. 3 [place] 32 mg AM and Medical 2 mg PM. Branch spironolact 2022-0 Yes 12.5mg Take 12.5 [facility] one 25 mg 9-29 mg by ity of tablet 14:18: mouth in [place] [address] the Medical morning. Branch bumetanide 2022-0 Yes 2mg Take 2 mg [facility] 2 mg tablet 9-29 by mouth ity of 14:18: daily. 3 [place] 32 mg AM and Medical 2 mg PM. Branch spironolact 2022-0 Yes 12.5mg Take 12.5 [facility] one 25 mg 9-29 mg by ity of tablet 14:18: mouth in [place] [address] the Medical morning. Branch bumetanide 2022-0 Yes 2mg Take 2 mg [facility] 2 mg tablet 9-29 by mouth ity of 14:18: daily. 3 [place] 32 mg AM and Medical 2 mg PM. Branch spironolact 2022-0 Yes 12.5mg Take 12.5 [facility] one 25 mg 9-29 mg by ity of tablet 14:18: mouth in [place] [address] the Medical morning. Branch bumetanide 2022-0 Yes 2mg Take 2 mg [facility] 2 mg tablet 9-29 by mouth ity of 14:18: daily. 3 [place] 32 mg AM and Medical 2 mg PM. Branch spironolact 2022-0 Yes 12.5mg Take 12.5 [facility] one 25 mg 9-29 mg by ity of tablet 14:18: mouth in [place] [address] the Medical morning. Branch bumetanide 2022-0 Yes 2mg Take 2 mg [facility] 2 mg tablet 9-29 by mouth ity of 14:18: daily. 3 [place] 32 mg AM and Medical 2 mg PM. Branch spironolact 2-0 Yes 12.5mg Take 12.5 [facility] one 25 mg 9-29 mg by ity of tablet 14:18: mouth in [place] [address] the Medical morning. Branch bumetanide 2022-0 Yes 2mg Take 2 mg [facility] 2 mg tablet 9-29 by mouth ity of 14:18: daily. 3 [place] 32 mg AM and Medical 2 mg PM. Branch spironolact 2022-0 Yes 12.5mg Take 12.5 [facility] one 25 mg 9-29 mg by ity of tablet 14:18: mouth in [place] [address] the Medical morning. Branch bumetanide 2022-0 Yes 2mg Take 2 mg [facility] 2 mg tablet 9-29 by mouth ity of 14:18: daily. 3 [place] 32 mg AM and Medical 2 mg PM. Branch spironolact 2022-0 Yes 12.5mg Take 12.5 [facility] one 25 mg 9-29 mg by ity of tablet 14:18: mouth in [place] [address] the Medical morning. Branch bumetanide 2022-0 Yes 2mg Take 2 mg [place] 2 mg tablet 9-29 by mouth ity of 14:18: daily. 3 [place] 32 mg AM and Medical 2 mg PM. Branch spironolact 2022-0 Yes 12.5mg Take 12.5 [facility] one 25 mg 9-29 mg by ity of tablet 14:18: mouth in [place] [address] the Medical morning. Branch bumetanide 2022-0 Yes 2mg Take 2 mg [place] 2 mg tablet 9-29 by mouth ity of 14:18: daily. 3 [place] 32 mg AM and Medical 2 mg PM. Branch spironolact 2022-0 Yes 12.5mg Take 12.5 [facility] one 25 mg 9-29 mg by ity of tablet 14:18: mouth in [place] [address] the Medical morning. Branch bumetanide 2022-0 Yes 2mg Take 2 mg [place] 2 mg tablet 9-29 by mouth ity of 14:18: daily. 3 [place] 32 mg AM and Medical 2 mg PM. Branch spironolact 2022-0 Yes 12.5mg Take 12.5 [facility] one 25 mg 9-29 mg by ity of tablet 14:18: mouth in [place] [address] the Medical morning. Branch bumetanide 2022-0 Yes 2mg Take 2 mg [place] 2 mg tablet 9-29 by mouth ity of 14:18: daily. 3 [place] 32 mg AM and Medical 2 mg PM. Branch spironolact 2022-0 Yes 12.5mg Take 12.5 [facility] one 25 mg 9-29 mg by ity of tablet 14:18: mouth in [place] [address] the Medical morning. Branch bumetanide 2022-0 Yes 2mg Take 2 mg [place] 2 mg tablet 9-29 by mouth ity of 14:18: daily. 3 [place] 32 mg AM and Medical 2 mg PM. Branch spironolact 2022-0 Yes 12.5mg Take 12.5 [facility] one 25 mg 9-29 mg by ity of tablet 14:18: mouth in [place] [address] the Medical morning. Branch bumetanide 2022-0 Yes 2mg Take 2 mg [place] 2 mg tablet 9-29 by mouth ity of 14:18: daily. 3 [place] 32 mg AM and Medical 2 mg PM. Branch spironolact 2022-0 Yes 12.5mg Take 12.5 [facility] one 25 mg 9-29 mg by ity of tablet 14:18: mouth in [place] [address] the Medical morning. Branch bumetanide 2022-0 Yes 2mg Take 2 mg [place] 2 mg tablet 9-29 by mouth ity of 14:18: daily. 3 [place] 32 mg AM and Medical 2 mg PM. Branch spironolact 2022-0 Yes 12.5mg Take 12.5 [facility] one 25 mg 9-29 mg by ity of tablet 14:18: mouth in [place] [address] the Medical morning. Branch bumetanide 2022-0 Yes 2mg Take 2 mg [place] 2 mg tablet 9-29 by mouth ity of 14:18: daily. 3 [place] 32 mg AM and Medical 2 mg PM. Branch spironolact 2022-0 Yes 12.5mg Take 12.5 [facility] one 25 mg 9-29 mg by ity of tablet 14:18: mouth in [place] [address] the Medical morning. Branch bumetanide 2022-0 Yes 2mg Take 2 mg [place] 2 mg tablet 9-29 by mouth ity of 14:18: daily. 3 [place] 32 mg AM and Medical 2 mg PM. Branch spironolact 2022-0 Yes 12.5mg Take 12.5 [facility] one 25 mg 9-29 mg by ity of tablet 14:18: mouth in [place] [address] the Medical morning. Branch bumetanide 2022-0 Yes 2mg Take 2 mg [place] 2 mg tablet 9-29 by mouth ity of 14:18: daily. 3 [place] 32 mg AM and Medical 2 mg PM. Branch spironolact 2-0 Yes 12.5mg Take 12.5 [facility] one 25 mg 9-29 mg by ity of tablet 14:18: mouth in [place] [address] the Medical morning. Branch bumetanide 2022-0 Yes 2mg Take 2 mg [place] 2 mg tablet 9-29 by mouth ity of 14:18: daily. 3 [place] 32 mg AM and Medical 2 mg PM. Branch spironolact 2022-0 Yes 12.5mg Take 12.5 [facility] one 25 mg 9-29 mg by ity of tablet 14:18: mouth in [place] [address] the Medical morning. Branch bumetanide 2022-0 Yes 2mg Take 2 mg [place] 2 mg tablet 9-29 by mouth ity of 14:18: daily. 3 [place] 32 mg AM and Medical 2 mg PM. Branch spironolact 2022-0 Yes 12.5mg Take 12.5 [facility] one 25 mg 9-29 mg by ity of tablet 14:18: mouth in [place] [address] the Medical morning. Branch bumetanide 2022-0 Yes 2mg Take 2 mg [place] 2 mg tablet 9-29 by mouth ity of 14:18: daily. 3 [place] 32 mg AM and Medical 2 mg PM. Branch spironolact 2022-0 Yes 12.5mg Take 12.5 [facility] one 25 mg 9-29 mg by ity of tablet 14:18: mouth in [place] [address] the Medical morning. Branch bumetanide 2022-0 Yes 2mg Take 2 mg [place] 2 mg tablet 9-29 by mouth ity of 14:18: daily. 3 [place] 32 mg AM and Medical 2 mg PM. Branch spironolact 2022-0 Yes 12.5mg Take 12.5 [facility] one 25 mg 9-29 mg by ity of tablet 14:18: mouth in [place] [address] the Medical morning. Branch bumetanide 2022-0 Yes 2mg Take 2 mg [place] 2 mg tablet 9-29 by mouth ity of 14:18: daily. 3 [place] 32 mg AM and Medical 2 mg PM. Branch spironolact 2022-0 Yes 12.5mg Take 12.5 [facility] one 25 mg 9-29 mg by ity of tablet 14:18: mouth in [place] [address] the Medical morning. Branch bumetanide 2022-0 Yes 2mg Take 2 mg [place] 2 mg tablet 9-29 by mouth ity of 14:18: daily. 3 [place] 32 mg AM and Medical 2 mg PM. Branch spironolact 2022-0 Yes 12.5mg Take 12.5 [facility] one 25 mg 9-29 mg by ity of tablet 14:18: mouth in [place] [address] the Medical morning. Branch bumetanide 2022-0 Yes 2mg Take 2 mg [place] 2 mg tablet 9-29 by mouth ity of 14:18: daily. 3 [place] 32 mg AM and Medical 2 mg PM. Branch spironolact 2022-0 Yes 12.5mg Take 12.5 [facility] 25 mg 9-29 mg by ity of tablet 14:18: mouth in [place] [address] the Medical morning. Branch bumetanide 2022-0 Yes 2mg Take 2 mg [place] 2 mg tablet 9-29 by mouth ity of 14:18: daily. 3 [place] 32 mg AM and Medical 2 mg PM. Branch spironolact 2021-0 Yes 12.5mg Take 12.5 [facility] one 25 mg 9-29 mg by ity of tablet 14:18: mouth in [place] [address] the Medical morning. Branch bumetanide 2021-0 Yes 2mg Take 2 mg [place] 2 mg tablet 9-29 by mouth ity of 14:18: daily. 3 [place] 32 mg AM and Medical 2 mg PM. Branch spironolact 2021-0 Yes 12.5mg Take 12.5 [facility] one 25 mg 9-29 mg by ity of tablet 14:18: mouth in [place] [address] the Medical morning. Branch bumetanide 2021-0 Yes 2mg Take 2 mg [place] 2 mg tablet 9-29 by mouth ity of 14:18: daily. 3 [place] 32 mg AM and Medical 2 mg PM. Branch spironolact 2021-0 Yes 12.5mg Take 12.5 [facility] one 25 mg 9-29 mg by ity of tablet 14:18: mouth in [place] [address] the Medical morning. Branch spironolact 2021-0 Yes 12.5mg Take 12.5 [facility] one 9-25 mg by ity of (ALDACTONE) 18:56: mouth in [place] 25 mg 38 the Medical tablet morning. Branch spironolact 2021-0 Yes 12.5mg Take 12.5 [facility] one 9-25 [...] 2 mg [place] 2 mg tablet 12-01 by mouth ity of 10:06: daily. 3 [place] 49 mg AM and Medical 2 mg PM. Branch bumetanide 2021-0 Yes 2mg Take 2 mg [place] 2 mg tablet 12-01 by mouth ity of 10:06: daily. 3 [place] 49 mg AM and Medical 2 mg PM. Branch bumetanide 2021-0 Yes 2mg Take 2 mg [place] 2 mg tablet 12-01 by mouth ity of 10:06: daily. 3 [place] 49 mg AM and Medical 2 mg PM. Branch potassium 2021-0 2021- No 10meq 10 mEq, IV [facility] chloride in 11-25 Piggyback, i ty of water 10 05:45: 06:18 ONCE, 1 [place] mEq/100 mL 00 :00 dose, On Medic al RTU 10 mEq Fri Branch 11/25/21 at 0045, Administer over 60 Minutes, 100 mL potassium 2021- No 10meq 10 mEq, IV [facility] chloride in 11-25 Piggyback, i ty of water 10 03:30: 04:11 ONCE, 1 [place] mEq/100 mL 00 :54 dose, On Medic al RTU 10 mEq [place] Branch 11/24/21 at 2230, Administer over 60 Minutes, 100 mL magnesium 2021- No 2g 2 g, IV Univ ers sulfate in 11-25 Piggyback, it y of water 2 03:30: 05:14 Administer [place] as gram/50 mL 00 :14 over 60 Medica l (4 %) Minutes, Branch infusion 2 ONCE, 1 g dose, On [place] 11/24/21 at 2230, Routine KCL 2021-2021- No 40meq 40 mEq, [facility] (KLOR-CON 11-25 Oral, ity of M20) tablet 02:45: 02:59 ONCE, 1 [place] 40 mEq 00 :00 dose, On Medical [place] Branch 11/24/21 at 2145, BE bumetanide 2021-0 Yes 2mg Take 2 mg [place] 2 mg tablet 11-24 by mouth ity of 20:29: daily. 3 [...] 20:29: mouth [place] 48 daily. Medical Branch spironolact 0 2022- No 25mg Take 25 mg [facility] one 25 mg 9-15 09-15 by mouth ity o f tablet 20:29: 00:00 daily. [place] 48 :00 [facility] SERTraline 2021-0 Yes [id number] 100mg Take 1 [facility] 100 mg 9-14 tablet by ity of tablet 00:00: mouth in [place] [address] the [facility] and 1 tablet in the evening. SERTraline 2021-0 Yes [id number] 100mg Take 1 [facility] 100 mg 9-14 tablet by ity of tablet 00:00: mouth in [address] and 1 tablet in the evening. SERTraline 2021-0 Yes [id number] 100mg Take 1 [facility] 100 mg 9-14 tablet by ity of tablet 00:00: mouth in [address] and 1 tablet in the evening. SERTraline 2021-0 Yes [id number] 100mg Take 1 [facility] 100 mg 9-14 tablet by ity of tablet 00:00: mouth in [place] [address] the [facility] and 1 tablet in the evening. SERTraline 2021-0 Yes [id number] 100mg Take 1 [facility] 100 mg 9-14 tablet by ity of tablet 00:00: mouth in [address] and 1 tablet in the evening. SERTraline 2021-0 Yes [id number] 100mg Take 1 [facility] 100 mg 9-14 tablet by ity of tablet 00:00: mouth in [address] and 1 tablet in the evening. SERTraline 2021-0 Yes [id number] 100mg Take 1 [facility] 100 mg 9-14 tablet by ity of tablet 00:00: mouth in [place] 00 the Medical morning Branch and 1 tablet in the evening. SERTraline 2022-0 Yes [id number] 100mg Take 1 [facility] 100 mg 9-14 tablet by ity of tablet 00:00: mouth in [place] [address] the Medical morning Branch and 1 tablet in the evening. SERTraline 2022-0 Yes [id number] 100mg Take 1 [facility] 100 mg 9-14 tablet by ity of tablet 00:00: mouth in [place] [address] the [facility] morning Branch and 1 tablet in the evening. SERTraline 2022-0 Yes [id number] 100mg Take 1 [facility] 100 mg 9-14 tablet by ity of tablet 00:00: mouth in [place] [address] the Medical morning Branch and 1 tablet in the evening. SERTraline 2022-0 Yes [id number] 100mg Take 1 [facility] 100 mg 9-14 tablet by ity of tablet 00:00: mouth in [place] [address] the [facility] morning [place] and 1 tablet in the evening. SERTraline 2022-0 Yes [id number] 100mg Take 1 [facility] 100 mg 9-14 tablet by ity of tablet 00:00: mouth in [place] [address] the [facility] morning [place] and 1 tablet in the evening. SERTraline 2022-0 Yes [id number] 100mg Take 1 [facility] 100 mg 9-14 tablet by ity of tablet 00:00: mouth in [place] [address] the [facility] morning [place] and 1 tablet in the evening. SERTraline 2022-0 Yes [id number] 100mg Take 1 [facility] 100 mg 9-14 tablet by ity of tablet 00:00: mouth in [place] [address] the [facility] morning [place] and 1 tablet in the evening. SERTraline 2022-0 Yes [id number] 100mg Take 1 [facility] 100 mg 9-14 tablet by ity of tablet 00:00: mouth in [place] [address] the [facility] morning [place] and 1 tablet in the evening. SERTraline 2022-0 Yes [id number] 100mg Take 1 [facility] 100 mg 9-14 tablet by ity of tablet 00:00: mouth in [place] [address] the [facility] morning [place] and 1 tablet in the evening. SERTraline 2022-0 Yes [id number] 100mg Take 1 [facility] 100 mg 9-14 tablet by ity of tablet 00:00: mouth in [address] morning [place] and 1 tablet in the evening. SERTraline 2022-0 Yes [id number] 100mg Take 1 [facility] 100 mg 9-14 tablet by ity of tablet 00:00: mouth in [place] [address] the Medical morning Branch and 1 tablet in the evening. SERTraline 2022-0 Yes [id number] 100mg Take 1 [facility] 100 mg 9-14 tablet by ity of tablet 00:00: mouth in [place] [address] the Medical morning Branch and 1 tablet in the evening. SERTraline 2022-0 Yes [id number] 100mg Take 1 [facility] 100 mg 9-14 tablet by ity of tablet 00:00: mouth in [place] [address] the Medical morning Branch and 1 tablet in the evening. SERTraline 2022-0 Yes [id number] 100mg Take 1 [facility] 100 mg 9-14 tablet by ity of tablet 00:00: mouth in [place] [address] the Medical morning Branch and 1 tablet in the evening. SERTraline 2022-0 Yes [id number] 100mg Take 1 [facility] 100 mg 9-14 tablet by ity of tablet 00:00: mouth in [place] [address] the Medical morning Branch and 1 tablet in the evening. SERTraline 2022-0 Yes [id number] 100mg Take 1 [facility] 100 mg 9-14 tablet by ity of tablet 00:00: mouth in [place] [address] the Medical morning Branch and 1 tablet in the evening. SERTraline 2022-0 Yes [id number] 100mg Take 1 [facility] 100 mg 9-14 tablet by ity of tablet 00:00: mouth in [place] [address] the Medical morning [place] and 1 tablet in the evening. SERTraline 2022-0 Yes [id number] 100mg Take 1 [facility] 100 mg 9-14 tablet by ity of tablet 00:00: mouth in [place] [address] the Medical morning [place] and 1 tablet in the evening. SERTraline 2022-0 Yes [id number] 100mg Take 1 [facility] 100 mg 9-14 tablet by ity of tablet 00:00: mouth in [place] [address] the Medical morning Branch and 1 tablet in the evening. SERTraline 2022-0 Yes [id number] 100mg Take 1 [facility] 100 mg 9-14 tablet by ity of tablet 00:00: mouth in [place] [address] the Medical morning [place] and 1 tablet in the evening. SERTraline 2022-0 Yes [id number] 100mg Take 1 [facility] 100 mg 9-14 tablet by ity of tablet 00:00: mouth in [address] Medical morning [place] and 1 tablet in the evening. SERTraline 2022-0 Yes [id number] 100mg Take 1 [facility] 100 mg 9-14 tablet by ity of tablet 00:00: mouth in [place] [address] the Medical morning Branch and 1 tablet in the evening. SERTraline 2022-0 Yes [id number] 100mg Take 1 [facility] 100 mg 9-14 tablet by ity of tablet 00:00: mouth in [place] [address] the Medical morning Branch and 1 tablet in the evening. SERTraline 2022-0 Yes [id number] 100mg Take 1 [facility] 100 mg 9-14 tablet by ity of tablet 00:00: mouth in [place] [address] the Medical morning Branch and 1 tablet in the evening. SERTraline 2022-0 Yes [id number] 100mg Take 1 [facility] 100 mg 9-14 tablet by ity of tablet 00:00: mouth in [place] [address] the Medical morning Branch and 1 tablet in the evening. SERTraline 2022-0 Yes [id number] 100mg Take 1 [facility] 100 mg 9-14 tablet by ity of tablet 00:00: mouth in [place] [address] the Medical morning Branch and 1 tablet in the evening. SERTraline 2022-0 Yes [id number] 100mg Take 1 [facility] 100 mg 9-14 tablet by ity of tablet 00:00: mouth in [place] [address] the Medical morning Branch and 1 tablet in the evening. SERTraline 2022-0 Yes [id number] 100mg Take 1 [facility] 100 mg 9-14 tablet by ity of tablet 00:00: mouth in [place] [address] the Medical morning Branch and 1 tablet in the evening. SERTraline 2022-0 Yes [id number] 100mg Take 1 [facility] 100 mg 9-14 tablet by ity of tablet 00:00: mouth in [place] [address] the Medical morning Branch and 1 tablet in the evening. SERTraline 2022-0 Yes [id number] 100mg Take 1 [facility] 100 mg 9-14 tablet by ity of tablet 00:00: mouth in [place] [address] the Medical morning Branch and 1 tablet in the evening. SERTraline 2022-0 Yes [id number] 100mg Take 1 [facility] 100 mg 9-14 tablet by ity of tablet 00:00: mouth in [place] [address] the Medical morning Branch and 1 tablet in the evening. SERTraline 2022-0 Yes [id number] 100mg Take 1 [facility] 100 mg 9-14 tablet by ity of tablet 00:00: mouth in [place] 00 the Medical morning Branch and 1 tablet in the evening. SERTraline 2022-0 Yes [id number] 100mg Take 1 [facility] 100 mg 9-14 tablet by ity of tablet 00:00: mouth in [place] [address] the Medical morning Branch and 1 tablet in the evening. SERTraline 2022-0 Yes [id number] 100mg Take 1 [facility] 100 mg 9-14 tablet by ity of tablet 00:00: mouth in [place] [address] the Medical morning Branch and 1 tablet in the evening. SERTraline 2022-0 Yes [id number] 100mg Take 1 [facility] 100 mg 9-14 tablet by ity of tablet 00:00: mouth in [place] [address] the Medical morning Branch and 1 tablet in the evening. SERTraline 2022-0 Yes [id number] 100mg Take 1 [facility] 100 mg 9-14 tablet by ity of tablet 00:00: mouth in [place] [address] the Medical morning [place] and 1 tablet in the evening. SERTraline 2022-0 Yes [id number] 100mg Take 1 [facility] 100 mg 9-14 tablet by ity of tablet 00:00: mouth in [place] [address] the Medical morning [place] and 1 tablet in the evening. SERTraline 2022-0 Yes [id number] 100mg Take 1 [facility] 100 mg 9-14 tablet by ity of tablet 00:00: mouth in [place] [address] the Medical morning [place] and 1 tablet in the evening. SERTraline 2022-0 Yes [id number] 100mg Take 1 [facility] 100 mg 9-14 tablet by ity of tablet 00:00: mouth in [place] [address] the Medical morning [place] and 1 tablet in the evening. SERTraline 2022-0 Yes [id number] 100mg Take 1 [facility] 100 mg 9-14 tablet by ity of tablet 00:00: mouth in [place] [address] the Medical morning [place] and 1 tablet in the evening. SERTraline 2022-0 Yes [id number] 100mg Take 1 [facility] 100 mg 9-14 tablet by ity of tablet 00:00: mouth in [place] [address] the Medical morning [place] and 1 tablet in the evening. SERTraline 2022-0 Yes [id number] 100mg Take 1 [facility] 100 mg 9-14 tablet by ity of tablet 00:00: mouth in [address] morning [place] and 1 tablet in the evening. SERTraline 2022-0 Yes [id number] 100mg Take 1 [facility] 100 mg 9-14 tablet by ity of tablet 00:00: mouth in [place] [address] the Medical morning [place] and 1 tablet in the evening. SERTraline 2022-0 Yes [id number] 100mg Take 1 [facility] 100 mg 9-14 tablet by ity of tablet 00:00: mouth in [place] [address] the Medical morning Branch and 1 tablet in the evening. SERTraline 2022-0 Yes [id number] 100mg Take 1 [facility] 100 mg 9-14 tablet by ity of tablet 00:00: mouth in [place] [address] the Medical morning Branch and 1 tablet in the evening. SERTraline 2022-0 Yes [id number] 100mg Take 1 [facility] 100 mg 9-14 tablet by ity of tablet 00:00: mouth in [address] morning [place] and 1 tablet in the evening. SERTraline 2-0 Yes [id number] 100mg Take 1 [facility] 100 mg 9-14 tablet by ity of tablet 00:00: mouth in [address] Medical morning [place] and 1 tablet in the evening. SERTraline 2-0 Yes [id number] 100mg Take 1 [facility] 100 mg 9-14 tablet by ity of tablet 00:00: mouth in [address] morning [place] and 1 tablet in the evening. SERTraline 2-0 Yes [id number] 100mg Take 1 [facility] 100 mg 9-14 tablet by ity of tablet 00:00: mouth in [address] morning [place] and 1 tablet in the evening. SERTraline 2022-0 Yes [id number] 100mg Take 1 [facility] 100 mg 9-14 tablet by ity of tablet 00:00: mouth in [address] morning [place] and 1 tablet in the evening. SERTraline 2022-0 Yes [id number] 100mg Take 1 [facility] 100 mg 9-14 tablet by ity of tablet 00:00: mouth in [address] morning [place] and 1 tablet in the evening. SERTraline 2022-0 Yes [id number] 100mg Take 1 [facility] 100 mg 9-14 tablet by ity of tablet 00:00: mouth in [address] morning [place] and 1 tablet in the evening. SERTraline 2022-0 Yes [id number] 100mg Take 1 [facility] 100 mg 9-14 tablet by ity of tablet 00:00: mouth in [address] morning [place] and 1 tablet in the evening. SERTraline 2022-0 Yes [id number] 100mg Take 1 [facility] 100 mg 9-14 tablet by ity of tablet 00:00: mouth in [place] 00 the Medical morning Branch and 1 tablet in the evening. SERTraline 2022-0 Yes [id number] 100mg Take 1 [facility] 100 mg 9-14 tablet by ity of tablet 00:00: mouth in [place] 00 the Medical morning Branch and 1 tablet in the evening. SERTraline 2022-0 Yes [id number] 100mg Take 1 [facility] 100 mg 9-14 tablet by ity of tablet 00:00: mouth in [place] [address] the Medical morning Branch and 1 tablet in the evening. SERTraline 2022-0 Yes [id number] 100mg Take 1 [facility] 100 mg 9-14 tablet by ity of tablet 00:00: mouth in [place] [address] the Medical morning Branch and 1 tablet in the evening. SERTraline 2022-0 Yes [id number] 100mg Take 1 [facility] 100 mg 9-14 tablet by ity of tablet 00:00: mouth in [place] [address] the Medical morning Branch and 1 tablet in the evening. SERTraline 2022-0 Yes [id number] 100mg Take 1 [facility] 100 mg 9-14 tablet by ity of tablet 00:00: mouth in [place] [address] the Medical morning Branch and 1 tablet in the evening. SERTraline 2022-0 Yes [id number] 100mg Take 1 [facility] 100 mg 9-14 tablet by ity of tablet 00:00: mouth in [place] [address] the Medical morning Branch and 1 tablet in the evening. SERTraline 2022-0 Yes [id number] 100mg Take 1 [facility] 100 mg 9-14 tablet by ity of tablet 00:00: mouth in [place] [address] the Medical morning Branch and 1 tablet in the evening. SERTraline 2022-0 Yes [id number] 100mg Take 1 [facility] 100 mg 9-14 tablet by ity of tablet 00:00: mouth in [place] [address] the Medical morning Branch and 1 tablet in the evening. SERTraline 2022-0 Yes [id number] 100mg Take 1 [facility] 100 mg 9-14 tablet by ity of tablet 00:00: mouth in [place] [address] the Medical morning Branch and 1 tablet in the evening. SERTraline 2022-0 Yes [id number] 100mg Take 1 [facility] 100 mg 9-14 tablet by ity of tablet 00:00: mouth in [place] 00 the Medical morning Branch and 1 tablet in the evening. SERTraline 2022-0 Yes [id number] 100mg Take 1 [facility] 100 mg 9-14 tablet by ity of tablet 00:00: mouth in [place] 00 the Medical morning Branch and 1 tablet in the evening. SERTraline 2022-0 Yes [id number] 100mg Take 1 [facility] 100 mg 9-14 tablet by ity of tablet 00:00: mouth in [place] 00 the Medical morning Branch and 1 tablet in the evening. SERTraline 2022-0 Yes [id number] 100mg Take 1 [facility] 100 mg 9-14 tablet by ity of tablet 00:00: mouth in [place] 00 the Medical morning Branch and 1 tablet in the evening. SERTraline 2022-0 Yes [id number] 100mg Take 1 [facility] 100 mg 9-14 tablet by ity of tablet 00:00: mouth in [place] 00 the Medical morning Branch and 1 tablet in the evening. primidone 2022-0 Yes [id number] 100mg Take 2 [facility] 50 mg 8-15 tablets by ity of tablet 00:00: mouth [place] 00 every 8 Medical (eight) Branch hours. primidone 2022-0 Yes [id number] 100mg Take 2 [facility] 50 mg 8-15 tablets by ity of tablet 00:00: mouth [place] 00 every 8 Medical (eight) Branch hours. primidone 2022-0 Yes [id number] 100mg Take 2 [facility] 50 mg 8-15 tablets by ity of tablet 00:00: mouth [place] 00 every 8 Medical (eight) Branch hours. primidone 2022-0 Yes [id number] 100mg Take 2 [facility] 50 mg 8-15 tablets by ity of tablet 00:00: mouth [place] 00 every 8 Medical (eight) Branch hours. primidone 2022-0 Yes [id number] 100mg Take 2 [facility] 50 mg 8-15 tablets by ity of tablet 00:00: mouth [place] 00 every 8 Medical (eight) Branch hours. primidone 2022-0 Yes [id number] 100mg Take 2 [facility] 50 mg 8-15 tablets by ity of tablet 00:00: mouth [place] 00 every 8 Medical (eight) Branch hours. primidone 2022-0 Yes [id number] 100mg Take 2 [facility] 50 mg 8-15 tablets by ity of tablet 00:00: mouth [place] 00 every 8 Medical (eight) Branch hours. primidone 2022-0 Yes [id number] 100mg Take 2 [facility] 50 mg 8-15 tablets by ity of tablet 00:00: mouth [place] 00 every 8 Medical (eight) Branch hours. primidone 2022-0 Yes [id number] 100mg Take 2 [facility] 50 mg 8-15 tablets by ity of tablet 00:00: mouth [place] 00 every 8 Medical (eight) Branch hours. primidone 2022-0 Yes [id number] 100mg Take 2 [facility] 50 mg 8-15 tablets by ity of tablet 00:00: mouth [place] 00 every 8 Medical (eight) Branch hours. primidone 2022-0 Yes [id number] 100mg Take 2 [facility] 50 mg 8-15 tablets by ity of tablet 00:00: mouth [place] 00 every 8 Medical (eight) Branch hours. primidone 2022-0 Yes [id number] 100mg Take 2 [facility] 50 mg 8-15 tablets by ity of tablet 00:00: mouth [place] 00 every 8 Medical (eight) Branch hours. primidone 2022-0 Yes [id number] 100mg Take 2 [facility] 50 mg 8-15 tablets by ity of tablet 00:00: mouth [place] 00 every 8 Medical (eight) Branch hours. primidone 2022-0 Yes [id number] 100mg Take 2 [facility] 50 mg 8-15 tablets by ity of tablet 00:00: mouth [place] 00 every 8 Medical (eight) Branch hours. primidone 2022-0 Yes [id number] 100mg Take 2 [facility] 50 mg 8-15 tablets by ity of tablet 00:00: mouth [place] 00 every 8 Medical (eight) Branch hours. primidone 2022-0 Yes [id number] 100mg Take 2 [facility] 50 mg 8-15 tablets by ity of tablet 00:00: mouth [place] 00 every 8 Medical (eight) Branch hours. primidone 2022-0 Yes [id number] 100mg Take 2 [facility] 50 mg 8-15 tablets by ity of tablet 00:00: mouth [place] 00 every 8 Medical (eight) Branch hours. primidone 2022-0 Yes [id number] 100mg Take 2 [facility] 50 mg 8-15 tablets by ity of tablet 00:00: mouth [place] 00 every 8 Medical (eight) Branch hours. primidone 2022-0 Yes [id number] 100mg Take 2 [facility] 50 mg 8-15 tablets by ity of tablet 00:00: mouth [place] 00 every 8 Medical (eight) Branch hours. primidone 2022-0 Yes [id number] 100mg Take 2 [facility] 50 mg 8-15 tablets by ity of tablet 00:00: mouth [place] 00 every 8 Medical (eight) Branch hours. primidone 2022-0 Yes [id number] 100mg Take 2 [facility] 50 mg 8-15 tablets by ity of tablet 00:00: mouth [place] 00 every 8 Medical (eight) Branch hours. primidone 2022-0 Yes [id number] 100mg Take 2 [facility] 50 mg 8-15 tablets by [facility] tablet 00:00: mouth [place] 00 every 8 Medical (eight) Branch hours. primidone 2022-0 Yes [id number] 100mg Take 2 [facility] 50 mg 8-15 tablets by [facility] tablet 00:00: mouth [place] 00 every 8 Medical (eight) Branch hours. primidone 2022-0 Yes [id number] 100mg Take 2 [facility] 50 mg 8-15 tablets by [facility] tablet 00:00: mouth [place] 00 every 8 Medical (eight) Branch hours. primidone 2022-0 Yes [id number] 100mg Take 2 [facility] 50 mg 8-15 tablets by [facility] tablet 00:00: mouth [place] 00 every 8 Medical (eight) Branch hours. primidone 2022-0 Yes [id number] 100mg Take 2 [facility] 50 mg 8-15 tablets by [facility] of tablet 00:00: mouth [place] 00 every 8 Medical (eight) Branch hours. primidone 2022-0 Yes [id number] 100mg Take 2 [facility] 50 mg 8-15 tablets by [facility] of tablet 00:00: mouth [place] 00 every 8 Medical (eight) Branch hours. primidone 2022-0 Yes [id number] 100mg Take 2 [facility] 50 mg 8-15 tablets by [facility] of tablet 00:00: mouth [place] 00 every 8 Medical (eight) Branch hours. primidone 2022-0 Yes [id number] 100mg Take 2 [facility] 50 mg 8-15 tablets by [facility] of tablet 00:00: mouth [place] 00 every 8 Medical (eight) Branch hours. primidone 2022-0 Yes [id number] 100mg Take 2 [facility] 50 mg 8-15 tablets by [facility] of tablet 00:00: mouth [place] 00 every 8 Medical (eight) Branch hours. primidone 2022-0 Yes [id number] 100mg Take 2 [facility] 50 mg 8-15 tablets by [facility] of tablet 00:00: mouth [place] 00 every 8 Medical (eight) Branch hours. primidone 2022-0 Yes [id number] 100mg Take 2 [facility] 50 mg 8-15 tablets by [facility] of tablet 00:00: mouth [place] 00 every 8 Medical (eight) Branch hours. primidone 2022-0 Yes [id number] 100mg Take 2 [facility] 50 mg 8-15 tablets by [facility] of tablet 00:00: mouth [place] 00 every 8 Medical (eight) Branch hours. primidone 2022-0 Yes [id number] 100mg Take 2 [facility] 50 mg 8-15 tablets by [facility] of tablet 00:00: mouth [place] 00 every 8 Medical (eight) Branch hours. primidone 2022-0 Yes [id number] 100mg Take 2 [facility] 50 mg 8-15 tablets by [facility] of tablet 00:00: mouth [place] 00 every 8 Medical (eight) Branch hours. primidone 2022-0 Yes [id number] 100mg Take 2 [facility] 50 mg 8-15 tablets by [facility] of tablet 00:00: mouth [place] 00 every 8 Medical (eight) Branch hours. primidone 2022-0 Yes [id number] 100mg Take 2 [facility] 50 mg 8-15 tablets by [facility] of tablet 00:00: mouth [place] 00 every 8 Medical (eight) Branch hours. primidone 2022-0 Yes [id number] 100mg Take 2 [facility] 50 mg 8-15 tablets by [facility] of tablet 00:00: mouth [place] 00 every 8 Medical (eight) Branch hours. primidone 2022-0 Yes [id number] 100mg Take 2 [facility] 50 mg 8-15 tablets by [facility] of tablet 00:00: mouth [place] 00 every 8 Medical (eight) Branch hours. primidone 2022-0 Yes [id number] 100mg Take 2 [facility] 50 mg 8-15 tablets by [facility] of tablet 00:00: mouth [place] 00 every 8 Medical (eight) Branch hours. primidone 2022-0 Yes [id number] 100mg Take 2 [facility] 50 mg 8-15 tablets by [facility] of tablet 00:00: mouth [place] 00 every 8 Medical (eight) Branch hours. primidone 2022-0 Yes [id number] 100mg Take 2 [facility] 50 mg 8-15 tablets by [facility] of tablet 00:00: mouth [place] 00 every 8 Medical (eight) Branch hours. primidone 2021-0 Yes [id number] 100mg Take 2 [facility] 50 mg 8-15 tablets by [facility] of tablet 00:00: mouth [place] 00 every 8 Medical (eight) Branch hours. primidone 2021-0 Yes [id number] 100mg Take 2 [facility] 50 mg 8-15 tablets by [facility] of tablet 00:00: mouth [place] 00 every 8 Medical (eight) Branch hours. primidone 2021-0 Yes [id number] 100mg Take 2 [facility] 50 mg 8-15 tablets by [facility] of tablet 00:00: mouth [place] 00 every 8 Medical (eight) Branch hours. primidone 2021-0 2022- No [id number] 100mg Take 2 [facility] 50 mg 8-15 12-14 tablets by [facility] of tablet 00:00: 00:00 mouth [place] 00 :00 every 8 Medical (eight) Branch hours. primidone 2021-0 2022- No [id number] 100mg Take 2 [facility] 50 mg 8-15 12-14 tablets by [facility] of tablet 00:00: 00:00 mouth [place] 00 :00 every 8 Medical (eight) Branch hours. primidone 2021-0 2022- No [id number] 100mg Take 2 [facility] 50 mg 8-15 12-14 tablets by [facility] of tablet 00:00: 00:00 mouth [place] 00 :00 every 8 Medical (eight) Branch hours. bumetanide 0 Yes 2mg Take 2 mg [facility] 2 mg tablet 8-11 by mouth [facility] of 10:37: daily. 3 [place] 47 mg AM and Medical 2 mg PM. Branch KCL 10 mEq 0 Yes 10meq Take 10 [facility] vers tablet 8-11 mEq by [facility] of 10:37: mouth [place] 47 daily. Medical Branch spironolact 0 Yes 25mg Take 25 mg [facility] one 25 mg 8-11 by mouth [facility] of tablet 10:37: daily. [place] 47 Medical Branch bumetanide 0 Yes 2mg Take 2 mg [facility] 2 mg tablet 8-11 by mouth [facility] of 10:37: daily. 3 [place] 47 mg AM and Medical 2 mg PM. Branch KCL 10 mEq 0 Yes 10meq Take 10 [facility] vers tablet 8-11 mEq by it[facility] of 10:37: mouth [place] 47 daily. Medical Branch spironolact 0 Yes 25mg Take 25 mg [facility] one 25 mg 8-11 by mouth it[facility] of tablet 10:37: daily. [address] mexiletine 2022-0 Yes 200mg Take 1 [facility] ers 200 mg 7-19 capsule by ity of capsule 00:00: mouth in [address] morning [place] and 1 capsule at noon and 1 capsule in the evening. mexiletine 2022-0 Yes 200mg Take 1 [facility] ers 200 mg 7-19 capsule by ity of capsule 00:00: mouth in [address] and 1 capsule at noon and 1 capsule in the evening. mexiletine 2022-0 Yes 200mg Take 1 [facility] 200 mg 7-19 capsule by it[facility] of capsule 00:00: mouth in [address] and 1 capsule at noon and 1 capsule in the evening. mexiletine 2022-0 Yes 200mg Take 1 [facility] 200 mg 7-19 capsule by it[facility] of capsule 00:00: mouth in [address] and 1 capsule at noon and 1 capsule in the evening. mexiletine 2022-0 Yes 200mg Take 1 [facility] ers 200 mg 7-19 capsule by it[facility] of capsule 00:00: mouth in [address] and 1 capsule at noon and 1 capsule in the evening. mexiletine 2022-0 Yes 200mg Take 1 [facility] 200 mg 7-19 capsule by it[facility] of capsule 00:00: mouth in [address] and 1 capsule at noon and 1 capsule in the evening. mexiletine 2022-0 Yes 200mg Take 1 [facility] 200 mg 7-19 capsule by it[facility] of capsule 00:00: mouth in [address] and 1 capsule at noon and 1 capsule in the evening. mexiletine 2022-0 Yes 200mg Take 1 [facility] 200 mg 7-19 capsule by ity of capsule 00:00: mouth in [address] and 1 capsule at noon and 1 capsule in the evening. mexiletine 2022-0 Yes 200mg Take 1 [facility] 200 mg 7-19 capsule by it[facility] of capsule 00:00: mouth in [address] and 1 capsule at noon and 1 capsule in the evening. mexiletine 2022-0 Yes 200mg Take 1 [facility] 200 mg 7-19 capsule by [facility] of capsule 00:00: mouth in [place] 00 the Medical morning Branch and 1 capsule at noon and 1 capsule in the evening. mexiletine 2022-0 Yes 200mg Take 1 [facility] 200 mg 7-19 capsule by it[facility] of capsule 00:00: mouth in [place] 00 the Medical morning Branch and 1 capsule at noon and 1 capsule in the evening. mexiletine 2022-0 Yes 200mg Take 1 [facility] 200 mg 7-19 capsule by it[facility] of capsule 00:00: mouth in [place] 00 the Medical morning Branch and 1 capsule at noon and 1 capsule in the evening. mexiletine 2022-0 Yes 200mg Take 1 [facility] 200 mg 7-19 capsule by it[facility] of capsule 00:00: mouth in [place] 00 the Medical morning Branch and 1 capsule at noon and 1 capsule in the evening. mexiletine 2022-0 Yes 200mg Take 1 [facility] 200 mg 7-19 capsule by it[facility] of capsule 00:00: mouth in [place] 00 the Medical morning Branch and 1 capsule at noon and 1 capsule in the evening. mexiletine 2022-0 Yes 200mg Take 1 [facility] ers 200 mg 7-19 capsule by it[facility] of capsule 00:00: mouth in [place] 00 the Medical morning Branch and 1 capsule at noon and 1 capsule in the evening. mexiletine 2022-0 2022- No 200mg Take 1 [facility] vers 200 mg 7-19 10-27 capsule by [facility] of capsule 00:00: 00:00 mouth in [place] 00 :00 the Medical morning Branch and 1 capsule at noon and 1 capsule in the evening. carvediloL 2022-0 Yes [id number] 6.25mg Take 1 [facility] 6.25 mg 6-20 tablet by [facility] of tablet 00:00: mouth 2 [place] (two) Medical times [place] daily with meals. warfarin 2022-0 Yes [id number] 7.5mg Take 1 [facility] 7.5 mg 6-20 tablet by [facility] of tablet 00:00: mouth [place] 00 every Medical evening. Branch carvediloL 2022-0 Yes [id number] 6.25mg Take 1 [facility] 6.25 mg 6-20 tablet by [facility] of tablet 00:00: mouth 2 [place] [address] (two) Medical times [place] daily with meals. warfarin 2022-0 Yes [id number] 7.5mg Take 1 [facility] n[facility] 7.5 mg 6-20 tablet by [facility] of tablet 00:00: mouth [place] 00 every Medical evening. Branch carvediloL 2021-0 Yes [id number] 6.25mg Take 1 [facility] 6.25 mg 6-20 tablet by [facility] of tablet 00:00: mouth 2 (two) Medical times Branch daily with meals. warfarin 2021-0 Yes [id number] 7.5mg Take 1 [facility] n[facility] 7.5 mg 6-20 tablet by [facility] of tablet 00:00: mouth [place] 00 every Medical evening. Branch carvediloL 2021-0 Yes [id number] 6.25mg Take 1 [facility] 6.25 mg 6-20 tablet by ity of tablet 00:00: mouth 2 (two) Medical times Branch daily with meals. warfarin 2021-0 Yes [id number] 7.5mg Take 1 [facility] n[facility] 7.5 mg 6-20 tablet by [facility] of tablet 00:00: mouth [place] 00 every Medical evening. Branch carvediloL 2021-0 Yes [id number] 6.25mg Take 1 [facility] 6.25 mg 6-20 tablet by ity of tablet 00:00: mouth 2 (two) Medical times Branch daily with meals. warfarin 2021-0 Yes [id number] 7.5mg Take 1 [facility] n[facility] 7.5 mg 6-20 tablet by ity of tablet 00:00: mouth [place] 00 every Medical evening. Branch carvediloL 2021-0 Yes [id number] 6.25mg Take 1 [facility] 6.25 mg 6-20 tablet by [facility] of tablet 00:00: mouth 2 (two) Medical times Branch daily with meals. warfarin 2021-0 Yes [id number] 7.5mg Take 1 [facility] n[facility] 7.5 mg 6-20 tablet by it[facility] of tablet 00:00: mouth [place] 00 every Medical evening. Branch carvediloL 2021-0 Yes [id number] 6.25mg Take 1 [facility] 6.25 mg 6-20 tablet by it[facility] of tablet 00:00: mouth 2 [place] (two) Medical times Branch daily with meals. warfarin 2021-0 Yes [id number] 7.5mg Take 1 [facility] n[facility] 7.5 mg 6-20 tablet by it[facility] of tablet 00:00: mouth [place] 00 every Medical evening. Branch carvediloL 0 Yes [id number] 6.25mg Take 1 [facility] 6.25 mg 6-20 tablet by ity of tablet 00:00: mouth (two) Medical times Branch daily with meals. warfarin 2021-0 Yes [id number] 7.5mg Take 1 [facility] 7.5 mg 6-20 tablet by ity of tablet 00:00: mouth 00 every Medical evening. Branch carvediloL 0 Yes [id number] 6.25mg Take 1 [facility] 6.25 mg 6-20 tablet by ity of tablet 00:00: mouth (two) Medical times Branch daily with meals. warfarin 0 Yes [id number] 7.5mg Take 1 [facility] 7.5 mg 6-20 tablet by ity of tablet 00:00: mouth 00 every Medical evening. Branch carvediloL Yes [id number] 6.25mg Take 1 [facility] 6.25 mg 6-20 tablet by ity of tablet 00:00: mouth (two) Medical times Branch daily with meals. warfarin 2021-0 Yes [id number] 7.5mg Take 1 [facility] 7.5 mg 6-20 tablet by ity of tablet 00:00: mouth 00 every Medical evening. Branch carvediloL 0 Yes [id number] 6.25mg Take 1 [facility] 6.25 mg 6-20 tablet by ity of tablet 00:00: mouth (two) Medical times Branch daily with meals. carvediloL 2021-0 Yes [id number] 6.25mg Take 1 [facility] 6.25 mg 6-20 tablet by ity of tablet 00:00: mouth (two) Medical times Branch daily with meals. carvediloL 2021-0 Yes [id number] 6.25mg Take 1 [facility] 6.25 mg 6-20 tablet by ity of tablet 00:00: mouth (two) Medical times Branch daily with meals. carvediloL 2021-0 Yes [id number] 6.25mg Take 1 [facility] 6.25 mg 6-20 tablet by ity of tablet 00:00: mouth (two) Medical times Branch daily with meals. carvediloL 2021-0 Yes [id number] 6.25mg Take 1 [facility] 6.25 mg 6-20 tablet by ity of tablet 00:00: mouth (two) Medical times Branch daily with meals. carvediloL 2022-0 Yes [id number] 6.25mg Take 1 [facility] 6.25 mg 6-20 tablet by ity of tablet 00:00: mouth (two) Medical times Branch daily with meals. carvediloL 2022-0 Yes [id number] 6.25mg Take 1 [facility] 6.25 mg 6-20 tablet by ity of tablet 00:00: mouth (two) Medical times Branch daily with meals. carvediloL 2022-0 Yes [id number] 6.25mg Take 1 [facility] 6.25 mg 6-20 tablet by ity of tablet 00:00: mouth (two) Medical times Branch daily with meals. carvediloL 2022-0 Yes [id number] 6.25mg Take 1 [facility] 6.25 mg 6-20 tablet by ity of tablet 00:00: mouth (two) Medical times Branch daily with meals. carvediloL 2022-0 Yes [id number] 6.25mg Take 1 [facility] 6.25 mg 6-20 tablet by ity of tablet 00:00: mouth (two) Medical times Branch daily with meals. carvediloL 2022-0 Yes [id number] 6.25mg Take 1 [facility] 6.25 mg 6-20 tablet by ity of tablet 00:00: mouth (two) Medical times Branch daily with meals. carvediloL 2022-0 Yes [id number] 6.25mg Take 1 [facility] 6.25 mg 6-20 tablet by ity of tablet 00:00: mouth (two) Medical times Branch daily with meals. carvediloL 2022-0 Yes [id number] 6.25mg Take 1 [facility] 6.25 mg 6-20 tablet by ity of tablet 00:00: mouth (two) Medical times Branch daily with meals. carvediloL 2022-0 Yes [id number] 6.25mg Take 1 [facility] 6.25 mg 6-20 tablet by ity of tablet 00:00: mouth (two) Medical times Branch daily with meals. carvediloL 2022-0 Yes [id number] 6.25mg Take 1 [facility] 6.25 mg 6-20 tablet by ity of tablet 00:00: mouth 2 (two) Medical times Branch daily with meals. carvediloL Yes [id number] 6.25mg Take 1 [facility] 6.25 mg 6-20 tablet by ity of tablet 00:00: mouth 2 00 (two) Medical times Branch daily with meals. carvediloL Yes [id number] 6.25mg Take 1 [facility] 6.25 mg 6-20 tablet by ity of tablet 00:00: mouth 2 (two) Medical times Branch daily with meals. carvediloL 2021- No [id number] 6.25mg Take 1 [facility] 6.25 mg 6-20 11-21 tablet by ity of tablet 00:00: 00:00 mouth 2 00 :00 (two) Medical times Branch daily with meals. carvediloL 2021- No [id number] 6.25mg Take 1 [facility] 6.25 mg 6-20 11-21 tablet by ity of tablet 00:00: 00:00 mouth 2 [place] 00 :00 (two) Medical times Branch daily with meals. warfarin 2021- No [id number] 7.5mg Take 1 [facility] 7.5 mg 6-20 10-14 tablet by it[facility] of tablet 00:00: 00:00 mouth [place] 00 :00 every Medical evening. Branch warfarin 2021- No [id number] 7.5mg Take 1 [facility] 7.5 mg 6-20 10-14 tablet by ity of tablet 00:00: 00:00 mouth [place] 00 :00 every Medical evening. Branch atorvastati Yes [id number] 40mg Take 1 [facility] n 40 mg 5-05 tablet by ity of tablet 00:00: mouth at [place] [address] bedtime. Medical Branch atorvastati Yes [id number] 40mg Take 1 [facility] n 40 mg 5-05 tablet by ity of tablet 00:00: mouth at [place] [address] bedtime. Medical Branch atorvastati Yes [id number] 40mg Take 1 [facility] n 40 mg 5-05 tablet by ity of tablet 00:00: mouth at [place] [address] bedtime. Medical Branch atorvastati 2022-0 Yes [id number] 40mg Take 1 [facility] n 40 mg 5-05 tablet by ity of tablet 00:00: mouth at [place] [address] bedtime. Medical Branch atorvastati 2021-0 Yes [id number] 40mg Take 1 [facility] n 40 mg 5-05 tablet by ity of tablet 00:00: mouth at [place] [address] bedtime. Medical Branch atorvastati 2021-0 Yes [id number] 40mg Take 1 [facility] n 40 mg 5-05 tablet by ity of tablet 00:00: mouth at [place] bedtime. Medical Branch atorvastati 0 Yes [id number] 40mg Take 1 [facility] n 40 mg 5-05 tablet by ity of tablet 00:00: mouth at [place] bedtime. Medical Branch atorvastati 0 Yes [id number] 40mg Take 1 [facility] n 40 mg 5-05 tablet by ity of tablet 00:00: mouth at [place] bedtime. Medical Branch atorvastati 0 Yes [id number] 40mg Take 1 [facility] n 40 mg 5-05 tablet by ity of tablet 00:00: mouth at [place] [address] bedtime. Medical Branch atorvastati 0 Yes [id number] 40mg Take 1 [facility] n 40 mg 5-05 tablet by ity of tablet 00:00: mouth at [place] [address] bedtime. Medical Branch atorvastati 0 Yes [id number] 40mg Take 1 [facility] n 40 mg 5-05 tablet by ity of tablet 00:00: mouth at [place] [address] bedtime. Medical Branch atorvastati 2021-0 Yes [id number] 40mg Take 1 [facility] n 40 mg 5-05 tablet by ity of tablet 00:00: mouth at [place] [address] bedtime. Medical Branch atorvastati 0 Yes [id number] 40mg Take 1 [facility] n 40 mg 5-05 tablet by ity of tablet 00:00: mouth at [place] [address] bedtime. Medical Branch atorvastati 0 Yes [id number] 40mg Take 1 [facility] n 40 mg 5-05 tablet by ity of tablet 00:00: mouth at [place] [address] bedtime. Medical Branch atorvastati 2021-0 Yes [id number] 40mg Take 1 [facility] n 40 mg 5-05 tablet by ity of tablet 00:00: mouth at [place] [address] bedtime. Medical Branch atorvastati Yes [id number] 40mg Take 1 [facility] n 40 mg 5-05 tablet by ity of tablet 00:00: mouth at [place] bedtime. Medical Branch atorvastati 0 Yes [id number] 40mg Take 1 [facility] n 40 mg 5-05 tablet by ity of tablet 00:00: mouth at [place] [address] bedtime. Medical Branch atorvastati 0 Yes [id number] 40mg Take 1 [facility] n 40 mg 5-05 tablet by ity of tablet 00:00: mouth at [place] bedtime. Medical Branch atorvastati Yes [id number] 40mg Take 1 [facility] n 40 mg 5-05 tablet by ity of tablet 00:00: mouth at [place] bedtime. Medical Branch atorvastati Yes [id number] 40mg Take 1 [facility] n 40 mg 5-05 tablet by ity of tablet 00:00: mouth at [place] bedtime. Medical Branch atorvastati Yes [id number] 40mg Take 1 [facility] n 40 mg 5-05 tablet by ity of tablet 00:00: mouth at [place] bedtime. Medical Branch atorvasta Yes [id number] 40mg Take 1 [facility] n 40 mg 5-05 tablet by ity of tablet 00:00: mouth at [place] [address] bedtime. Medical Branch atorvastati Yes [id number] 40mg Take 1 [facility] n 40 mg 5-05 tablet by ity of tablet 00:00: mouth at [place] [address] bedtime. Medical Branch atorvastati 0 Yes [id number] 40mg Take 1 [facility] n 40 mg 5-05 tablet by [facility]y of tablet 00:00: mouth at [place] [address] bedtime. Medical Branch atorvastati 0 Yes [id number] 40mg Take 1 [facility] n 40 mg 5-05 tablet by ity of tablet 00:00: mouth at [place] [address] bedtime. Medical Branch atorvastati 0 Yes [id number] 40mg Take 1 [facility] n 40 mg 5-05 tablet by ity of tablet 00:00: mouth at [place] [address] bedtime. Medical Branch atorvastati 0 Yes [id number] 40mg Take 1 [facility] n 40 mg 5-05 tablet by ity of tablet 00:00: mouth at [place] [address] bedtime. Medical Branch atorvastati 0 Yes [id number] 40mg Take 1 [facility] n 40 mg 5-05 tablet by ity of tablet 00:00: mouth at [place] bedtime. Medical Branch atorvastati 0 Yes [id number] 40mg Take 1 [facility] n 40 mg 5-05 tablet by ity of tablet 00:00: mouth at [place] [address] bedtime. Medical Branch atorvastati 0 Yes [id number] 40mg Take 1 [facility] n 40 mg 5-05 tablet by ity of tablet 00:00: mouth at [place] bedtime. Medical Branch atorvastati Yes [id number] 40mg Take 1 [facility] n 40 mg 5-05 tablet by ity of tablet 00:00: mouth at [place] bedtime. Medical Branch atorvastati Yes [id number] 40mg Take 1 [facility] n 40 mg 5-05 tablet by ity of tablet 00:00: mouth at [place] [address] bedtime. Medical Branch atorvastati Yes [id number] 40mg Take 1 [facility] n 40 mg 5-05 tablet by ity of tablet 00:00: mouth at [place] bedtime. Medical Branch atorvastati Yes [id number] 40mg Take 1 [facility] n 40 mg 5-05 tablet by ity of tablet 00:00: mouth at [place] [address] bedtime. Medical Branch atorvastati 0 Yes [id number] 40mg Take 1 [facility] n 40 mg 5-05 tablet by ity of tablet 00:00: mouth at [place] [address] bedtime. Medical Branch atorvastati 0 Yes [id number] 40mg Take 1 [facility] n 40 mg 5-05 tablet by ity of tablet 00:00: mouth at [place] [address] bedtime. Medical Branch atorvastati 0 Yes [id number] 40mg Take 1 [facility] n 40 mg 5-05 tablet by ity of tablet 00:00: mouth at [place] [address] bedtime. Medical Branch atorvastati 0 Yes [id number] 40mg Take 1 [facility] n 40 mg 5-05 tablet by ity of tablet 00:00: mouth at [place] [address] bedtime. Medical Branch atorvastati 0 Yes [id number] 40mg Take 1 [facility] n 40 mg 5-05 tablet by ity of tablet 00:00: mouth at [place] [address] bedtime. Medical Branch atorvastati 0 Yes [id number] 40mg Take 1 [facility] n 40 mg 5-05 tablet by ity of tablet 00:00: mouth at [place] [address] bedtime. Medical Branch atorvastati 0 Yes [id number] 40mg Take 1 [facility] n 40 mg 5-05 tablet by ity of tablet 00:00: mouth at [place] [address] bedtime. Medical Branch atorvastati 0 Yes [id number] 40mg Take 1 [facility] n 40 mg 5-05 tablet by ity of tablet 00:00: mouth at [place] [address] bedtime. Medical Branch atorvastati 0 Yes [id number] 40mg Take 1 [facility] n 40 mg 5-05 tablet by ity of tablet 00:00: mouth at [place] [address] bedtime. Medical Branch atorvastati 0 Yes [id number] 40mg Take 1 [facility] n 40 mg 5-05 tablet by ity of tablet 00:00: mouth at [place] [address] bedtime. Medical Branch atorvastati 0 Yes [id number] 40mg Take 1 [facility] n 40 mg 5-05 tablet by ity of tablet 00:00: mouth at [place] [address] bedtime. Medical Branch atorvastati 0 Yes [id number] 40mg Take 1 [facility] n 40 mg 5-05 tablet by ity of tablet 00:00: mouth at [place] [address] bedtime. Medical Branch atorvastati 0 Yes [id number] 40mg Take 1 [facility] n 40 mg 5-05 tablet by ity of tablet 00:00: mouth at [place] [address] bedtime. Medical Branch atorvastati 0 Yes [id number] 40mg Take 1 [facility] n 40 mg 5-05 tablet by ity of tablet 00:00: mouth at [place] [address] bedtime. Medical Branch atorvastati 0 Yes [id number] 40mg Take 1 [facility] n 40 mg 5-05 tablet by ity of tablet 00:00: mouth at [place] [address] bedtime. Medical Branch atorvastati 0 Yes [id number] 40mg Take 1 [facility] n 40 mg 5-05 tablet by ity of tablet 00:00: mouth at [place] [address] bedtime. Medical Branch atorvastati Yes [id number] 40mg Take 1 [facility] n 40 mg 5-05 tablet by ity of tablet 00:00: mouth at [place] bedtime. Medical Branch atorvastati 0 Yes [id number] 40mg Take 1 [facility] n 40 mg 5-05 tablet by ity of tablet 00:00: mouth at [place] bedtime. Medical Branch atorvastati 0 Yes [id number] 40mg Take 1 [facility] n 40 mg 5-05 tablet by ity of tablet 00:00: mouth at [place] bedtime. Medical Branch atorvastati Yes [id number] 40mg Take 1 [facility] n 40 mg 5-05 tablet by ity of tablet 00:00: mouth at [place] bedtime. Medical Branch atorvastati Yes [id number] 40mg Take 1 [facility] n 40 mg 5-05 tablet by ity of tablet 00:00: mouth at [place] [address] bedtime. Medical Branch atorvastati Yes [id number] 40mg Take 1 [facility] n 40 mg 5-05 tablet by ity of tablet 00:00: mouth at [place] bedtime. Medical Branch atorvastati Yes [id number] 40mg Take 1 [facility] n 40 mg 5-05 tablet by ity of tablet 00:00: mouth at [place] [address] bedtime. Medical Branch atorvastati Yes [id number] 40mg Take 1 [facility] n 40 mg 5-05 tablet by ity of tablet 00:00: mouth at [place] [address] bedtime. Medical Branch atorvastati 0 Yes [id number] 40mg Take 1 [facility] n 40 mg 5-05 tablet by ity of tablet 00:00: mouth at [place] [address] bedtime. Medical Branch atorvastati 0 Yes [id number] 40mg Take 1 [facility] n 40 mg 5-05 tablet by ity of tablet 00:00: mouth at [place] [address] bedtime. Medical Branch atorvastati Yes [id number] 40mg Take 1 [facility] n 40 mg 5-05 tablet by ity of tablet 00:00: mouth at [place] [address] bedtime. Medical Branch atorvastati 0 Yes [id number] 40mg Take 1 [facility] n 40 mg 5-05 tablet by ity of tablet 00:00: mouth at [place] [address] bedtime. Medical Branch atorvastati 0 Yes [id number] 40mg Take 1 [facility] n 40 mg 5-05 tablet by ity of tablet 00:00: mouth at [place] [address] bedtime. Medical Branch atorvastati 0 Yes [id number] 40mg Take 1 [facility] n 40 mg 5-05 tablet by ity of tablet 00:00: mouth at [place] 00 bedtime. Medical Branch atorvastati 0 Yes [id number] 40mg Take 1 [facility] n 40 mg 5-05 tablet by ity of tablet 00:00: mouth at [place] 00 bedtime. Medical Branch atorvastati 0 Yes [id number] 40mg Take 1 [facility] n 40 mg 5-05 tablet by ity of tablet 00:00: mouth at [place] [address] bedtime. Medical Branch atorvastati 0 Yes [id number] 40mg Take 1 [facility] n 40 mg 5-05 tablet by ity of tablet 00:00: mouth at [place] [address] bedtime. Medical Branch atorvastati 0 Yes [id number] 40mg Take 1 [facility] n 40 mg 5-05 tablet by ity of tablet 00:00: mouth at [place] 00 bedtime. Medical Branch atorvastati 0 Yes [id number] 40mg Take 1 [facility] n 40 mg 5-05 tablet by ity of tablet 00:00: mouth at [place] 00 bedtime. Medical Branch atorvastati 0 Yes [id number] 40mg Take 1 [facility] n 40 mg 5-05 tablet by ity of tablet 00:00: mouth at [place] [address] bedtime. Medical Branch atorvastati 0 Yes [id number] 40mg Take 1 [facility] n 40 mg 5-05 tablet by ity of tablet 00:00: mouth at [place] 00 bedtime. Medical Branch atorvastati 3- No [id number] 40mg Take 1 [facility] n 40 mg 5-05 04-12 tablet by [facility] of tablet 00:00: 00:00 mouth at [place] 00 :00 bedtime. Medical Branch allopurinoL 0 Yes [id number] 300mg Take 1 [facility] 300 mg 2-08 tablet by [facility] of tablet 00:00: mouth [place] 00 daily. Medical Branch allopurinoL 2021-0 Yes [id number] 300mg Take 1 [facility] 300 mg 2-08 tablet by [facility]y of tablet 00:00: mouth [place] 00 daily. [facility] allopurinoL 2021-0 Yes [id number] 300mg Take 1 [facility] 300 mg 2-08 tablet by [facility] tablet 00:00: mouth [place] 00 daily. [facility] allopurinoL 2021-0 Yes [id number] 300mg Take 1 [facility] 300 mg 2-08 tablet by [facility] tablet 00:00: mouth [place] 00 daily. [facility] allopurinoL 2021-0 Yes [id number] 300mg Take 1 [facility] 300 mg 2-08 tablet by [facility] tablet 00:00: mouth [place] 00 daily. [facility] allopurinoL 2021-0 Yes [id number] 300mg Take 1 [facility] 300 mg 2-08 tablet by [facility] tablet 00:00: mouth [place] 00 daily. [facility] allopurinoL 2021-0 Yes [id number] 300mg Take 1 [facility] 300 mg 2-08 tablet by [facility] tablet 00:00: mouth [place] 00 daily. [facility] allopurinoL 2021-0 Yes [id number] 300mg Take 1 [facility] 300 mg 2-08 tablet by [facility] tablet 00:00: mouth [place] 00 daily. [facility] allopurinoL 2021-0 Yes [id number] 300mg Take 1 [facility] 300 mg 2-08 tablet by [facility] tablet 00:00: mouth [place] 00 daily. [facility] allopurinoL 2021-0 Yes [id number] 300mg Take 1 [facility] 300 mg 2-08 tablet by [facility] tablet 00:00: mouth [place] 00 daily. [facility] allopurinoL 2021-0 Yes [id number] 300mg Take 1 [facility] 300 mg 2-08 tablet by [facility] tablet 00:00: mouth [place] 00 daily. [facility] allopurinoL 2021-0 Yes [id number] 300mg Take 1 [facility] 300 mg 2-08 tablet by [facility] tablet 00:00: mouth [place] 00 daily. [facility] allopurinoL 2021-0 Yes [id number] 300mg Take 1 [facility] 300 mg 2-08 tablet by [facility] tablet 00:00: mouth [place] 00 daily. [facility] allopurinoL 2021-0 Yes [id number] 300mg Take 1 [facility] 300 mg 2-08 tablet by [facility] tablet 00:00: mouth [place] 00 daily. [facility] allopurinoL 2021-0 Yes [id number] 300mg Take 1 [facility] 300 mg 2-08 tablet by [facility] tablet 00:00: mouth [place] 00 daily. [facility] allopurinoL 2021-0 Yes [id number] 300mg Take 1 [facility] 300 mg 2-08 tablet by [facility] tablet 00:00: mouth [place] 00 daily. [facility] allopurinoL 2021-0 Yes [id number] 300mg Take 1 [facility] 300 mg 2-08 tablet by [facility] tablet 00:00: mouth [place] 00 daily. [facility] allopurinoL 2021-0 Yes [id number] 300mg Take 1 [facility] 300 mg 2-08 tablet by [facility] tablet 00:00: mouth [place] 00 daily. [facility] allopurinoL 2021-0 Yes [id number] 300mg Take 1 [facility] 300 mg 2-08 tablet by [facility] tablet 00:00: mouth [place] 00 daily. [facility] allopurinoL 2021-0 Yes [id number] 300mg Take 1 [facility] 300 mg 2-08 tablet by [facility] tablet 00:00: mouth [place] 00 daily. [facility] allopurinoL 2021-0 Yes [id number] 300mg Take 1 [facility] 300 mg 2-08 tablet by [facility] tablet 00:00: mouth [place] 00 daily. [facility] allopurinoL 2021-0 Yes [id number] 300mg Take 1 [facility] 300 mg 2-08 tablet by [facility] tablet 00:00: mouth [place] 00 daily. [facility] allopurinoL 2021-0 Yes [id number] 300mg Take 1 [facility] 300 mg 2-08 tablet by [facility] tablet 00:00: mouth [place] 00 daily. [facility] allopurinoL 2021-0 Yes [id number] 300mg Take 1 [facility] 300 mg 2-08 tablet by [facility] tablet 00:00: mouth [place] 00 daily. [facility] allopurinoL 2021-0 Yes [id number] 300mg Take 1 [facility] 300 mg 2-08 tablet by [facility] tablet 00:00: mouth [place] 00 daily. [facility] allopurinoL 2021-0 Yes [id number] 300mg Take 1 [facility] 300 mg 2-08 tablet by [facility] tablet 00:00: mouth [place] 00 daily. [facility] allopurinoL 2021-0 Yes [id number] 300mg Take 1 [facility] 300 mg 2-08 tablet by [facility] tablet 00:00: mouth [place] 00 daily. [facility] allopurinoL 2021-0 Yes [id number] 300mg Take 1 [facility] 300 mg 2-08 tablet by [facility] tablet 00:00: mouth [place] 00 daily. [facility] allopurinoL 2021-0 Yes [id number] 300mg Take 1 [facility] 300 mg 2-08 tablet by [facility] tablet 00:00: mouth [place] 00 daily. [facility] allopurinoL 2021-0 Yes [id number] 300mg Take 1 [facility] 300 mg 2-08 tablet by [facility] tablet 00:00: mouth [place] 00 daily. [facility] allopurinoL 2021-0 Yes [id number] 300mg Take 1 [facility] 300 mg 2-08 tablet by [facility] tablet 00:00: mouth [place] 00 daily. [facility] allopurinoL 2021-0 Yes [id number] 300mg Take 1 [facility] 300 mg 2-08 tablet by [facility] tablet 00:00: mouth [place] 00 daily. [facility] allopurinoL 2021-0 Yes [id number] 300mg Take 1 [facility] 300 mg 2-08 tablet by [facility] tablet 00:00: mouth [place] 00 daily. [facility] allopurinoL 2021-0 Yes [id number] 300mg Take 1 [facility] 300 mg 2-08 tablet by [facility] tablet 00:00: mouth [place] 00 daily. [facility] allopurinoL 2021-0 Yes [id number] 300mg Take 1 [facility] 300 mg 2-08 tablet by [facility] tablet 00:00: mouth [place] 00 daily. [facility] allopurinoL 2021-0 Yes [id number] 300mg Take 1 [facility] 300 mg 2-08 tablet by [facility] tablet 00:00: mouth [place] 00 daily. [facility] allopurinoL 2021-0 Yes [id number] 300mg Take 1 [facility] 300 mg 2-08 tablet by [facility] tablet 00:00: mouth [place] 00 daily. [facility] allopurinoL 2021-0 Yes [id number] 300mg Take 1 [facility] 300 mg 2-08 tablet by [facility] tablet 00:00: mouth [place] 00 daily. [facility] allopurinoL 2021-0 Yes [id number] 300mg Take 1 [facility] 300 mg 2-08 tablet by [facility] tablet 00:00: mouth [place] 00 daily. [facility] allopurinoL 2021-0 Yes [id number] 300mg Take 1 [facility] 300 mg 2-08 tablet by [facility] tablet 00:00: mouth [place] 00 daily. [facility] allopurinoL 2021-0 Yes [id number] 300mg Take 1 [facility] 300 mg 2-08 tablet by [facility] tablet 00:00: mouth [place] 00 daily. [facility] allopurinoL 2021-0 Yes [id number] 300mg Take 1 [facility] 300 mg 2-08 tablet by [facility] tablet 00:00: mouth [place] 00 daily. [facility] allopurinoL 2021-0 Yes [id number] 300mg Take 1 [facility] 300 mg 2-08 tablet by [facility] of tablet 00:00: mouth [place] 00 daily. [facility] allopurinoL 2021-0 Yes [id number] 300mg Take 1 [facility] 300 mg 2-08 tablet by [facility] of tablet 00:00: mouth [place] 00 daily. [facility] allopurinoL 2021-0 Yes [id number] 300mg Take 1 [facility] 300 mg 2-08 tablet by [facility] tablet 00:00: mouth [place] 00 daily. [facility] allopurinoL 2021-0 Yes [id number] 300mg Take 1 [facility] 300 mg 2-08 tablet by [facility] tablet 00:00: mouth [place] 00 daily. [facility] allopurinoL 2021-0 Yes [id number] 300mg Take 1 [facility] 300 mg 2-08 tablet by [facility] tablet 00:00: mouth [place] 00 daily. [facility] allopurinoL 2021-0 Yes [id number] 300mg Take 1 [facility] 300 mg 2-08 tablet by [facility] tablet 00:00: mouth [place] 00 daily. [facility] allopurinoL 2021-0 Yes [id number] 300mg Take 1 [facility] 300 mg 2-08 tablet by [facility] tablet 00:00: mouth [place] 00 daily. [facility] allopurinoL 2021-0 Yes [id number] 300mg Take 1 [facility] 300 mg 2-08 tablet by [facility] tablet 00:00: mouth [place] 00 daily. [facility] allopurinoL 2021-0 Yes [id number] 300mg Take 1 [facility] 300 mg 2-08 tablet by [facility] tablet 00:00: mouth [place] 00 daily. [facility] allopurinoL 2021-0 Yes [id number] 300mg Take 1 [facility] 300 mg 2-08 tablet by [facility] tablet 00:00: mouth [place] 00 daily. [facility] allopurinoL 2021-0 Yes [id number] 300mg Take 1 [facility] 300 mg 2-08 tablet by [facility] tablet 00:00: mouth [place] 00 daily. [facility] allopurinoL 2021-0 Yes [id number] 300mg Take 1 [facility] 300 mg 2-08 tablet by [facility] tablet 00:00: mouth [place] 00 daily. [facility] allopurinoL 2021-0 Yes [id number] 300mg Take 1 [facility] 300 mg 2-08 tablet by [facility] tablet 00:00: mouth [place] 00 daily. [facility] allopurinoL 2021-0 Yes [id number] 300mg Take 1 [facility] 300 mg 2-08 tablet by [facility] of tablet 00:00: mouth [place] 00 daily. [facility] allopurinoL 2021-0 Yes [id number] 300mg Take 1 [facility] 300 mg 2-08 tablet by [facility] of tablet 00:00: mouth [place] 00 daily. [facility] allopurinoL 2021-0 Yes [id number] 300mg Take 1 [facility] 300 mg 2-08 tablet by [facility] of tablet 00:00: mouth [place] 00 daily. [facility] allopurinoL 2021-0 Yes [id number] 300mg Take 1 [facility] 300 mg 2-08 tablet by [facility] tablet 00:00: mouth [place] 00 daily. [facility] allopurinoL 2021-0 Yes [id number] 300mg Take 1 [facility] 300 mg 2-08 tablet by [facility] tablet 00:00: mouth [place] 00 daily. [facility] allopurinoL 0 Yes [id number] 300mg Take 1 [facility] 300 mg 2-08 tablet by [facility] tablet 00:00: mouth [place] 00 daily. [facility] allopurinoL 2021-0 Yes [id number] 300mg Take 1 [facility] 300 mg 2-08 tablet by [facility] tablet 00:00: mouth [place] 00 daily. [facility] allopurinoL 2021-0 Yes [id number] 300mg Take 1 [facility] 300 mg 2-08 tablet by [facility] tablet 00:00: mouth [place] 00 daily. [facility] allopurinoL 2021-0 Yes [id number] 300mg Take 1 [facility] 300 mg 2-08 tablet by [facility] tablet 00:00: mouth [place] 00 daily. [facility] allopurinoL 2021-0 2022- No [id number] 300mg Take 1 [facility] 300 mg 2-08 05-08 tablet by [facility] tablet 00:00: 00:00 mouth [place] 00 :00 daily. [facility] atorvastati 2021-2021- No 40mg Take 40 mg [facility] n 40 mg 2-04-12 by mouth [facility] of tablet 15:31: 00:00 [...] Medical for Branch Insomnia. omeprazole 2020-03 Yes [id number] 40mg Take 1 [facility] 40 mg 1-01 capsule by [facility] capsule 00:00: mouth [place] 00 daily. [facility] omeprazole 2020-03 Yes [id number] 40mg Take 1 [facility] 40 mg 1-01 capsule by [facility] capsule 00:00: mouth [place] 00 daily. [facility] omeprazole 2020-03 Yes [id number] 40mg Take 1 [facility] 40 mg 1-01 capsule by [facility] of capsule 00:00: mouth [place] 00 daily. [facility] omeprazole 2020-03 Yes [id number] 40mg Take 1 [facility] 40 mg 1-01 capsule by [facility] of capsule 00:00: mouth [place] 00 daily. [facility] omeprazole 2020-03 Yes [id number] 40mg Take 1 [facility] 40 mg 1-01 capsule by [facility] of capsule 00:00: mouth [place] 00 daily. [facility] omeprazole 2020-03 Yes [id number] 40mg Take 1 [facility] 40 mg 1-01 capsule by [facility] of capsule 00:00: mouth [place] 00 daily. [facility] omeprazole 2020-03 Yes [id number] 40mg Take 1 [facility] 40 mg 1-01 capsule by [facility] capsule 00:00: mouth [place] 00 daily. [facility] omeprazole 2020-03 Yes [id number] 40mg Take 1 [facility] 40 mg 1-01 capsule by [facility] of capsule 00:00: mouth [place] 00 daily. [facility] omeprazole 2020-03 Yes [id number] 40mg Take 1 [facility] 40 mg 1-01 capsule by [facility] of capsule 00:00: mouth [place] 00 daily. [facility] omeprazole 2020-03 Yes [id number] 40mg Take 1 [facility] 40 mg 1-01 capsule by [facility] of capsule 00:00: mouth [place] 00 daily. [facility] omeprazole 2020-03 Yes [id number] 40mg Take 1 [facility] 40 mg 1-01 capsule by [facility] of capsule 00:00: mouth [place] 00 daily. [facility] omeprazole 2020-03 Yes [id number] 40mg Take 1 [facility] 40 mg 1-01 capsule by [facility] of capsule 00:00: mouth [place] 00 daily. [facility] omeprazole 2020-03 Yes [id number] 40mg Take 1 [facility] 40 mg 1-01 capsule by [facility] of capsule 00:00: mouth [place] 00 daily. [facility] omeprazole 2020-03 Yes [id number] 40mg Take 1 [facility] 40 mg 1-01 capsule by [facility] of capsule 00:00: mouth [place] 00 daily. [facility] omeprazole 2020-03 Yes [id number] 40mg Take 1 [facility] 40 mg 1-01 capsule by [facility] capsule 00:00: mouth [place] 00 daily. [facility] omeprazole 2020-03 Yes [id number] 40mg Take 1 [facility] 40 mg 1-01 capsule by [facility] of capsule 00:00: mouth [place] 00 daily. [facility] omeprazole 2020-03 Yes [id number] 40mg Take 1 [facility] 40 mg 1-01 capsule by [facility] of capsule 00:00: mouth [place] 00 daily. [facility] omeprazole 2020-03- No [id number] 40mg Take 1 [facility] 40 mg 1-01 11-03 capsule by [facility] of capsule 00:00: 00:00 [...] Medical times Branch daily. gabapentin 2020-03 Yes [id number] 600mg Take 2 [facility] 300 mg 0-26 capsules [facility] capsule 00:00: [place] mouth [place] (two) [facility] times [facility] daily. gabapentin 2020-03 Yes [id number] 600mg Take 2 [facility] 300 mg 0-26 capsules [facility] capsule 00:00: by mouth [place] (two) [facility] times [facility] daily. gabapentin 2020-03 Yes [id number] 600mg Take 2 [facility] 300 mg 0-26 capsules [facility] capsule 00:00: by mouth [place] 00 (two) [facility] times [facility] daily. gabapentin 2020-03 Yes [id number] 600mg Take 2 [facility] 300 mg 0-26 capsules [facility] capsule 00:00: by mouth [place] 00 (two) [facility] times [facility] daily. gabapentin 2020-03 Yes [id number] 600mg Take 2 [facility] 300 mg 0-26 capsules [facility] capsule 00:00: by mouth [place] (two) [facility] times [facility] daily. gabapentin 2020-03 Yes [id number] 600mg Take 2 [facility] 300 mg 0-26 capsules [facility] capsule 00:00: by mouth [place] (two) [facility] times [facility] daily. gabapentin 2020-03 Yes [id number] 600mg Take 2 [facility] 300 mg 0-26 capsules [facility] capsule 00:00: by mouth [place] (two) [facility] times [facility] daily. gabapentin 2020-03 Yes [id number] 600mg Take 2 [facility] 300 mg 0-26 capsules [facility] capsule 00:00: by mouth [place] (two) [facility] times [facility] daily. gabapentin 2020-03 Yes [id number] 600mg Take 2 [facility] 300 mg 0-26 capsules [facility] capsule 00:00: by mouth 2 [place] 00 (two) [facility] times [facility] daily. gabapentin 2020-03 Yes [id number] 600mg Take 2 [facility] 300 mg 0-26 capsules [facility] capsule 00:00: by mouth [place] 00 (two) [facility] times [facility] daily. gabapentin 2020-03 Yes [id number] 600mg Take 2 [facility] 300 mg 0-26 capsules [facility] capsule 00:00: by mouth [place] (two) [facility] times [facility] daily. gabapentin 2020-03 Yes [id number] 600mg Take 2 [facility] 300 mg 0-26 capsules [facility] capsule 00:00: by mouth 2 [place] (two) [facility] times [facility] daily. gabapentin 2020- Yes [id number] 600mg Take 2 [facility] 300 mg 0-26 capsules [facility] capsule 00:00: by mouth [place] 00 (two) Medical times [facility] daily. gabapentin 2020-03 Yes [id number] 600mg Take 2 [facility] 300 mg 0-26 capsules [facility] capsule 00:00: by mouth 2 [place] 00 (two) [facility] times [facility] daily. gabapentin 2020-03 Yes [id number] 600mg Take 2 [facility] 300 mg 0-26 capsules [facility] capsule 00:00: by mouth 2 [place] 00 (two) Medical times [facility] daily. gabapentin 2020-03 Yes [id number] 600mg Take 2 [facility] 300 mg 0-26 capsules [facility] capsule 00:00: by mouth 2 [place] 00 (two) Medical times [facility] daily. gabapentin 2020-03 Yes [id number] 600mg Take 2 [facility] 300 mg 0-26 capsules [facility] capsule 00:00: by mouth [place] 00 (two) Medical times [facility] daily. gabapentin 2020-03- No [id number] 600mg Take 2 [facility] 300 mg 0-26 11-03 capsules it[facility] of capsule 00:00: 00:00 by mouth 2 [place] 00 :00 (two) Medical times [facility] daily. carvediloL 2020- No [id number] 6.25mg Take 0.5 [facility] 12.5 mg 9-28 10-28 tablets by ity o f tablet 00:00: 00:00 mouth 2 [place] 00 :00 (two) Medical times Branch daily with meals for 90 days. warfarin 5 2020- No 7.5mg Take 1.5 [facility] mg tablet 11-11 10-19 tablets by ity of 00:00: 00:00 mouth [place] 00 :00 every Medical evening. Branch clonazePAM Yes 1mg QD Take 1 mg [...] tablet 09:09: mouth Medical 20 nightly . Center omeprazole Yes 20mg QD Take 20 mg [...] 09:09: mouth Medical tablet 20 daily . [place] HYDROcodone Yes 1{tbl} Take 1 [facility] [...] daily. Medi drew 20 Center MORPHINE IN [address] [facility] NACL, 5-10 Intratheca [...] tablet 09:09: mouth Medical 20 nightly . [place] omeprazole Yes 20mg QD Take 20 mg [...] 09:09: as needed Med ical 20 . [place] allopurinol Yes 300mg QD Take [address] [facility] (ZYLOPRIM) 5-10 [facility] MG 09:09: mouth Medical tablet 20 daily . [place] HYDROcodone Yes 1{tbl} Take 1 [facility] I [...] tablet 09:09: mouth Medical 20 nightly . [place] pramipexole Yes 1.5mg QD Take 1.[address] [facility] (MIRAPEX) 1 5-10 mg [facility] tablet 09:09: mouth Medical 20 nightly . Center omeprazole Yes 20mg QD Take 20 mg [...] 09:09: mouth Medical tablet 20 daily . [place] HYDROcodone Yes 1{tbl} Take 1 [facility] I [...] PF, IN NACL, ISO-OSM INTRATHECAL ) losartan 2017 Yes 50mg QD Take [address] [facility] (COZAAR) 50 5-10 by mouth [facility] MG tablet 09:09: daily. Medica l 20 Center omeprazole Yes 20mg QD Take [address] [facility] (PRILOSEC) 5-10 [facility] 10 MG 09:09: daily . Medical capsule 20 Center citalopram Yes 40mg Take [address] [facility] (CELEXA) 40 5-10 by mouth. [facility] es MG tablet 09:09: Medical 20 Center furosemide 2017- Yes 20mg Take [address] [facility] (LASIX) 20 5-10 by [facility] tablet 09:09: as needed Med ical 20 . Center allopurinol Yes 300mg QD Take [address] (ZYLOPRIM) 5-10 [facility] 300 MG 09:09: mouth Medical tablet 20 daily . [place] HYDROcodone Yes 1{tbl} Take 1 [facility] I [...] daily. Medi drew 20 Center MORPHINE IN [address] [facility] NACL, 5-10 Intratheca [...] tablet 09:09: mouth Medical 20 nightly . [place] omeprazole Yes 20mg QD Take 20 mg [...] Medical tablet 20 daily . Center HYDROcodone 2017 Yes 1{tbl} Take [address] [...] daily. Medi drew 20 Center MORPHINE IN [address] [facility] NACL, 5-10 Intratheca [...] tablet 09:09: mouth Medical 20 nightly . [place] omeprazole Yes 20mg QD Take 20 mg [...] 09:09: as needed Med ical 20 . [place] allopurinol Yes 300mg QD Take [address] (ZYLOPRIM) 5-10 [facility] 300 MG 09:09: mouth Medical tablet 20 daily . [place] HYDROcodone Yes 1{tbl} Take [address] -acetaminop 5-10 tablet by Henrik benitez (NORCO 09:09: mouth Medica l 10-325) [...] 50 MG 09:09: daily. Medical tablet 20 [place] allopurinol 2021- No [id number] 300mg Take 1 [facility] 300 mg 3-28 -08 tablet by ity of tablet 00:00: 00:00 mouth [place] 00 :00 daily. Medical Branch losartan 50 2020- No 50mg Take 1 [facility] vers mg tablet 3-17 - tablet by ity of 00:00: 00:00 mouth [place] 00 :00 daily. [facility] Branch gabapentin Yes 300mg QD Take [address] (NEURONTIN) 2-07 mg [facility] 300 MG 00:00: mouth Medical capsule 00 nightly . [place] gabapentin Yes 300mg QD Take [address] (NEURONTIN) 2-07 mg [facility] 300 MG 00:00: mouth Medical capsule 00 nightly . [place] gabapentin Yes 300mg QD Take [address] (NEURONTIN) 2-07 mg by [facility] 300 MG 00:00: mouth Medical capsule 00 nightly . [place] gabapentin Yes 300mg QD Take [address] (NEURONTIN) 2-07 mg [facility] 300 MG 00:00: mouth Medical capsule 00 nightly . [place] gabapentin Yes 300mg QD Take [address] (NEURONTIN) 2-07 mg [facility] 300 MG 00:00: mouth Medical capsule 00 nightly . [place] gabapentin 2017-0 Yes 300mg QD Take [address] (NEURONTIN) 2-07 mg [facility] 300 MG 00:00: mouth Medical capsule 00 nightly . [place] traZODone 0 Yes 50mg QD Take [address] [facility] [address] [facility] (DESYREL) 1-23 by [facility] 50 MG 00:00: daily . Medical tablet 00 [place] traZODone Yes 50mg QD Take [address] [facility] [address] [facility] (DESYREL) 1-23 by [facility] 50 MG 00:00: daily . Medical tablet 00 [place] traZODone 0 Yes 50mg QD Take [address] (DESYREL) 1-23 by [facility] 50 MG 00:00: daily . Medical tablet 00 [place] traZODone 0 Yes 50mg QD Take [address] [facility] [address] (DESYREL) 1-23 by [facility] 50 MG 00:00: daily . Medical tablet 00 [place] traZODone 0 Yes 50mg QD Take [address] (DESYREL) 1-23 by [facility] 50 MG 00:00: daily . Medical tablet 00 [place] traZODone 0 Yes 50mg QD Take [address] (DESYREL) 1-23 by [facility] 50 MG 00:00: daily . Medical tablet 00 [place] Immunizations Ordered Filled Immunization Date Status Comments [facility] e Immunization Name Name SARS-COV-2 COVID-19 2021-04-19 Completed Unive rsity of MODERNA 0.25ML 00:00:00 [place] Medi drew BOOSTER VACCINE Branch Influenza Virus 2021-04-19 Completed Universit y of Vaccine,quad 00:00:00 [place] Medica l Im,preserve Free [place] 65+ SARS-COV-2 COVID-19 2021-04-19 Completed Unive rsity of MODERNA 0.25ML 00:00:00 [place] Medi drew BOOSTER VACCINE Branch Influenza Virus 2021-04-19 Completed Universit y of Vaccine,quad 00:00:00 [place] Medica l Im,preserve Free [place] 65+ SARS-COV-2 COVID-19 2021-04-19 Completed Unive rsity of MODERNA 0.25ML 00:00:00 [place] Medi drew BOOSTER VACCINE Branch Influenza Virus 2021-04-19 Completed Universit y of Vaccine,quad 00:00:00 [place] Medica l Im,preserve Free [place] 65+ SARS-COV-2 COVID-19 2021-04-19 Completed Unive rsity [...] rsity of MODERNA 0.25ML 00:00:00 [place] Medi drwe BOOSTER VACCINE Branch Influenza Virus 2021-04-19 Completed [...] rsity of MODERNA 0.25ML 00:00:00 [place] Medi rdew BOOSTER VACCINE Branch Influenza Virus 2021-04-19 Completed Universit y of Vaccine,quad 00:00:00 [place] Medica l Im,preserve Free Branch 65+ SARS-COV-2 COVID-19 2021-04-19 Completed Unive rsity of MODERNA 0.25ML 00:00:00 [place] Medi drew BOOSTER VACCINE Branch Influenza Virus 2021-04-19 Completed Universit y of Vaccine,quad 00:00:00 [place] Medica l Im,preserve Free Branch 65+ Influenza Virus 2019-12-24 Completed Universit y of Vaccine (3+ yrs) 00:00:00 [place] Me dical Branch Influenza Virus 2019-12-24 Completed Universit y of Vaccine (3+ yrs) 00:00:00 [place] Me dical Branch Influenza Virus 2019-12-24 Completed Universit y of Vaccine (3+ yrs) 00:00:00 [facility] dical Branch Influenza Virus 2019-12-24 Completed Universit y of Vaccine (3+ yrs) 00:00:00 [facility] dical Branch Influenza Virus 2019-12-24 Completed Universit y of Vaccine (3+ yrs) 00:00:00 [facility] dical Branch Influenza Virus 2019-12-24 Completed Universit y of Vaccine (3+ yrs) 00:00:00 [facility] dical Branch Influenza Virus 2019-12-24 Completed Universit y of Vaccine (3+ yrs) 00:00:00 [facility] dical Branch Influenza Virus 2019-12-24 Completed Universit y of Vaccine (3+ yrs) 00:00:00 [facility] dical Branch Influenza Virus 2019-12-24 Completed Universit y of Vaccine (3+ yrs) 00:00:00 [facility] dical Branch Influenza Virus 2019-12-24 Completed Universit y of Vaccine (3+ yrs) 00:00:00 [facility] dical Branch Influenza Virus 2019-12-24 Completed Universit y of Vaccine (3+ yrs) 00:00:00 [facility] dical Branch Influenza Virus 2019-12-24 Completed Universit y of Vaccine (3+ yrs) 00:00:00 [facility] dical Branch Influenza Virus 2019-12-24 Completed Universit y of Vaccine (3+ yrs) 00:00:00 [facility] dical Branch Influenza Virus 2019-12-24 Completed Universit y of Vaccine (3+ yrs) 00:00:00 [facility] dical Branch Influenza Virus 2019-12-24 Completed Universit y of Vaccine (3+ yrs) 00:00:00 [facility] dical Branch Influenza Virus 2019-12-24 Completed Universit y of Vaccine (3+ yrs) 00:00:00 [facility] dical Branch Influenza Virus 2019-12-24 Completed Universit y of Vaccine (3+ yrs) 00:00:00 [facility] Influenza Virus 2019-12-24 Completed Universit y of Vaccine (3+ yrs) 00:00:00 [facility] Influenza Virus 2019-12-24 Completed Universit y of Vaccine (3+ yrs) 00:00:00 [facility] Influenza Virus 2019-12-24 Completed Universit y of Vaccine (3+ yrs) 00:00:00 [facility] Influenza Virus 2019-12-24 Completed Universit y of Vaccine (3+ yrs) 00:00:00 [facility] Influenza Virus 2019-12-24 Completed Universit y of Vaccine (3+ yrs) 00:00:00 [facility] Influenza Virus 2019-12-24 Completed Universit y of Vaccine (3+ yrs) 00:00:00 [facility] Influenza Virus 2019-12-24 Completed Universit y of Vaccine (3+ yrs) 00:00:00 [facility] Influenza Virus 2019-12-24 Completed Universit y of Vaccine (3+ yrs) 00:00:00 [facility] Influenza Virus 2019-12-24 Completed Universit y of Vaccine (3+ yrs) 00:00:00 [facility] Influenza Virus 2019-12-24 Completed Universit y of Vaccine (3+ yrs) 00:00:00 [facility] Influenza Virus 2019-12-24 Completed Universit y of Vaccine (3+ yrs) 00:00:00 [facility] Influenza Virus 2019-12-24 Completed Universit y of Vaccine (3+ yrs) 00:00:00 [facility] Influenza Virus 2019-12-24 Completed Universit y of Vaccine (3+ yrs) 00:00:00 [facility] Influenza Virus 2019-12-24 Completed Universit y of Vaccine (3+ yrs) 00:00:00 [facility] Influenza Virus 2019-12-24 Completed Universit y of Vaccine (3+ yrs) 00:00:00 [facility] Influenza Virus 2019-12-24 Completed Universit y of Vaccine (3+ yrs) 00:00:00 [facility] Influenza Virus 2019-12-24 Completed Universit y of Vaccine (3+ yrs) 00:00:00 [facility] Influenza Virus 2019-12-24 Completed Universit y of Vaccine (3+ yrs) 00:00:00 [facility] Influenza Virus 2019-12-24 Completed Universit y of Vaccine (3+ yrs) 00:00:00 [facility] Influenza Virus 2019-12-24 Completed Universit y of Vaccine (3+ yrs) 00:00:00 [facility] Influenza Virus 2019-12-24 Completed [facility]ine (3+ yrs) 00:00:00 [facility] Influenza Virus 2019-12-24 Completed [facility] Vaccine (3+ yrs) 00:00:00 [facility] Influenza Virus 2019-12-24 Completed [facility] Vaccine (3+ yrs) 00:00:00 [facility] Influenza Virus 2019-12-24 Completed [facility] Vaccine (3+ yrs) 00:00:00 [facility] Influenza Virus 2019-12-24 Completed [facility] Vaccine (3+ yrs) 00:00:00 [facility] Influenza Virus 2019-12-24 Completed [facility] Vaccine (3+ yrs) 00:00:00 [facility] Influenza Virus 2019-12-24 Completed [facility] Vaccine (3+ yrs) 00:00:00 [facility] Influenza Virus 2019-12-24 Completed [facility] Vaccine (3+ yrs) 00:00:00 [facility] Influenza Virus 2019-12-24 Completed [facility] Vaccine (3+ yrs) 00:00:00 [facility] Influenza Virus 2019-12-24 Completed [facility] Vaccine (3+ yrs) 00:00:00 [facility] Influenza Virus 2019-12-24 Completed [facility] Vaccine (3+ yrs) 00:00:00 [facility] Influenza Virus 2019-12-24 Completed [facility] Vaccine (3+ yrs) 00:00:00 [facility] Influenza Virus 2019-12-24 Completed [facility] Vaccine (3+ yrs) 00:00:00 [facility] Influenza Virus 2019-12-24 Completed [facility] Vaccine (3+ yrs) 00:00:00 [facility] Influenza Virus 2019-12-24 Completed [facility] Vaccine (3+ yrs) 00:00:00 [facility] Influenza Virus 2019-12-24 Completed [facility] Vaccine (3+ yrs) 00:00:00 [facility] Influenza Virus 2019-12-24 Completed [facility] Vaccine (3+ yrs) 00:00:00 [facility] Influenza Virus 2019-12-24 Completed [facility] Vaccine (3+ yrs) 00:00:00 [facility] Influenza Virus 2019-12-24 Completed [facility] Vaccine (3+ yrs) 00:00:00 [facility] Influenza Virus 2019-12-24 Completed [facility] Vaccine (3+ yrs) 00:00:00 [facility] Influenza Virus 2019-12-24 Completed [facility] Vaccine (3+ yrs) 00:00:00 [facility] Influenza Virus 2019-12-24 Completed [facility] Vaccine (3+ yrs) 00:00:00 [facility] Influenza Virus 2019-12-24 Completed [facility] Vaccine (3+ yrs) 00:00:00 [facility] Influenza Virus 2019-12-24 Completed [facility] Vaccine (3+ yrs) 00:00:00 [facility] Influenza Virus 2019-12-24 Completed [facility] Vaccine (3+ yrs) 00:00:00 [facility] Influenza Virus 2019-12-24 Completed [facility] Vaccine (3+ yrs) 00:00:00 [facility] Influenza Virus 2019-12-24 Completed [facility] Vaccine (3+ yrs) 00:00:00 [facility] Influenza Virus 2019-12-24 Completed [facility] Vaccine (3+ yrs) 00:00:00 [facility] Influenza Virus 2019-12-24 Completed [facility] Vaccine (3+ yrs) 00:00:00 [facility] Influenza Virus 2019-12-24 Completed [facility] Vaccine (3+ yrs) 00:00:00 [facility] Influenza Virus 2019-12-24 Completed [facility] Vaccine (3+ yrs) 00:00:00 [facility] Influenza Virus 2019-12-24 Completed [facility] Vaccine (3+ yrs) 00:00:00 [facility] Influenza Virus 2019-12-24 Completed [facility] Vaccine (3+ yrs) 00:00:00 [facility] Influenza Virus 2019-12-24 Completed [facility] Vaccine (3+ yrs) 00:00:00 [facility] Influenza Virus 2019-12-24 Completed [facility] Vaccine (3+ yrs) 00:00:00 [facility] Influenza Virus 2019-12-24 Completed [facility] Vaccine (3+ yrs) 00:00:00 [facility] Influenza Virus 2019-12-24 Completed [facility] Vaccine (3+ yrs) 00:00:00 [facility] Influenza Virus 2019-12-24 Completed [facility] Vaccine (3+ yrs) 00:00:00 [facility] Influenza Virus 2019-12-24 Completed [facility] Vaccine (3+ yrs) 00:00:00 [facility] Influenza Virus 2019-11-26 Completed [facility] Vaccine (3+ yrs) 00:00:00 [facility] Influenza Virus 2019-11-26 Completed [facility] Vaccine (3+ yrs) 00:00:00 [facility] Influenza Virus 2019-11-26 Completed [facility] Vaccine (3+ yrs) 00:00:00 [facility] Influenza Virus 2019-11-26 Completed [facility] Vaccine (3+ yrs) 00:00:00 [facility] Influenza Virus 2019-11-26 Completed [facility] Vaccine (3+ yrs) 00:00:00 [facility] Influenza Virus 2019-11-26 Completed [facility] Vaccine (3+ yrs) 00:00:00 [facility] Influenza Virus 2019-11-26 Completed [facility] Vaccine (3+ yrs) 00:00:00 [facility] Influenza Virus 2019-11-26 Completed [facility] Vaccine (3+ yrs) 00:00:00 [facility] Influenza Virus 2019-11-26 Completed [facility] Vaccine (3+ yrs) 00:00:00 [facility] Influenza Virus 2019-11-26 Completed [facility] Vaccine (3+ yrs) 00:00:00 [facility] Influenza Virus 2019-11-26 Completed [facility] Vaccine (3+ yrs) 00:00:00 [facility] Influenza Virus 2019-11-26 Completed [facility] Vaccine (3+ yrs) 00:00:00 [facility] Influenza Virus 2019-11-26 Completed [facility] Vaccine (3+ yrs) 00:00:00 [facility] Influenza Virus 2019-11-26 Completed [facility] Vaccine (3+ yrs) 00:00:00 [facility] Influenza Virus 2019-11-26 Completed [facility] Vaccine (3+ yrs) 00:00:00 [facility] Influenza Virus 2019-11-26 Completed [facility] Vaccine (3+ yrs) 00:00:00 [facility] Influenza Virus 2019-11-26 Completed [facility] Vaccine (3+ yrs) 00:00:00 [facility] Influenza Virus 2019-11-26 Completed [facility] Vaccine (3+ yrs) 00:00:00 [facility] Influenza Virus 2019-11-26 Completed [facility] Vaccine (3+ yrs) 00:00:00 [facility] Influenza Virus 2019-11-26 Completed [facility] Vaccine (3+ yrs) 00:00:00 [facility] Influenza Virus 2019-11-26 Completed [facility] Vaccine (3+ yrs) 00:00:00 [facility] Influenza Virus 2019-11-26 Completed [facility] Vaccine (3+ yrs) 00:00:00 [facility] Influenza Virus 2019-11-26 Completed [facility] Vaccine (3+ yrs) 00:00:00 [facility] Influenza Virus 2019-11-26 Completed [facility] Vaccine (3+ yrs) 00:00:00 [facility] Influenza Virus 2019-11-26 Completed [facility] Vaccine (3+ yrs) 00:00:00 [facility] Influenza Virus 2019-11-26 Completed [facility] Vaccine (3+ yrs) 00:00:00 [facility] Influenza Virus 2019-11-26 Completed [facility] Vaccine (3+ yrs) 00:00:00 [facility] Influenza Virus 2019-11-26 Completed [facility] Vaccine (3+ yrs) 00:00:00 [facility] Influenza Virus 2019-11-26 Completed [facility] Vaccine (3+ yrs) 00:00:00 [facility] Influenza Virus 2019-11-26 Completed [facility] Vaccine (3+ yrs) 00:00:00 [facility] Influenza Virus 2019-11-26 Completed [facility] Vaccine (3+ yrs) 00:00:00 [facility] Influenza Virus 2019-11-26 Completed [facility] Vaccine (3+ yrs) 00:00:00 [facility] Influenza Virus 2019-11-26 Completed [facility] Vaccine (3+ yrs) 00:00:00 [facility] Influenza Virus 2019-11-26 Completed [facility] Vaccine (3+ yrs) 00:00:00 [facility] Influenza Virus 2019-11-26 Completed [facility] Vaccine (3+ yrs) 00:00:00 [facility] Influenza Virus 2019-11-26 Completed [facility] Vaccine (3+ yrs) 00:00:00 [facility] Influenza Virus 2019-11-26 Completed [facility] Vaccine (3+ yrs) 00:00:00 [facility] Influenza Virus 2019-11-26 Completed [facility] Vaccine (3+ yrs) 00:00:00 [facility] Influenza Virus 2019-11-26 Completed [facility] Vaccine (3+ yrs) 00:00:00 [facility] Influenza Virus 2019-11-26 Completed [facility] Vaccine (3+ yrs) 00:00:00 [facility] Influenza Virus 2019-11-26 Completed [facility] Vaccine (3+ yrs) 00:00:00 [facility] Influenza Virus 2019-11-26 Completed [facility] Vaccine (3+ yrs) 00:00:00 [facility] Influenza Virus 2019-11-26 Completed [facility] Vaccine (3+ yrs) 00:00:00 [facility] Influenza Virus 2019-11-26 Completed [facility] Vaccine (3+ yrs) 00:00:00 [facility] Influenza Virus 2019-11-26 Completed [facility] Vaccine (3+ yrs) 00:00:00 [facility] Influenza Virus 2019-11-26 Completed [facility] Vaccine (3+ yrs) 00:00:00 [facility] Influenza Virus 2019-11-26 Completed [facility] Vaccine (3+ yrs) 00:00:00 [facility] Influenza Virus 2019-11-26 Completed [facility] Vaccine (3+ yrs) 00:00:00 [facility] Influenza Virus 2019-11-26 Completed [facility] Vaccine (3+ yrs) 00:00:00 [facility] Influenza Virus 2019-11-26 Completed [facility] Vaccine (3+ yrs) 00:00:00 [facility] Influenza Virus 2019-11-26 Completed [facility] Vaccine (3+ yrs) 00:00:00 [facility] Influenza Virus 2019-11-26 Completed [facility] Vaccine (3+ yrs) 00:00:00 [facility] Influenza Virus 2019-11-26 Completed [facility] Vaccine (3+ yrs) 00:00:00 [facility] Influenza Virus 2019-11-26 Completed [facility] Vaccine (3+ yrs) 00:00:00 [facility] Influenza Virus 2019-11-26 Completed [facility] Vaccine (3+ yrs) 00:00:00 [facility] Influenza Virus 2019-11-26 Completed [facility] Vaccine (3+ yrs) 00:00:00 [facility] Influenza Virus 2019-11-26 Completed [facility] Vaccine (3+ yrs) 00:00:00 [facility] Influenza Virus 2019-11-26 Completed [facility] Vaccine (3+ yrs) 00:00:00 [facility] Influenza Virus 2019-11-26 Completed [facility] Vaccine (3+ yrs) 00:00:00 [facility] Influenza Virus 2019-11-26 Completed [facility] Vaccine (3+ yrs) 00:00:00 [facility] Influenza Virus 2019-11-26 Completed [facility] Vaccine (3+ yrs) 00:00:00 [facility] Influenza Virus 2019-11-26 Completed [facility] Vaccine (3+ yrs) 00:00:00 [facility] Influenza Virus 2019-11-26 Completed [facility] Vaccine (3+ yrs) 00:00:00 [facility] Influenza Virus 2019-11-26 Completed [facility] Vaccine (3+ yrs) 00:00:00 [facility] Influenza Virus 2019-11-26 Completed [facility] Vaccine (3+ yrs) 00:00:00 [facility] Influenza Virus 2019-11-26 Completed [facility] Vaccine (3+ yrs) 00:00:00 [facility] Influenza Virus 2019-11-26 Completed [facility] Vaccine (3+ yrs) 00:00:00 [facility] Influenza Virus 2019-11-26 Completed [facility] Vaccine (3+ yrs) 00:00:00 [facility] Influenza Virus 2019-11-26 Completed [facility] Vaccine (3+ yrs) 00:00:00 [facility] Influenza Virus 2019-11-26 Completed [facility] Vaccine (3+ yrs) 00:00:00 [facility] Influenza Virus 2019-11-26 Completed [facility] Vaccine (3+ yrs) 00:00:00 [facility] Influenza Virus 2019-11-26 Completed [facility] Vaccine (3+ yrs) 00:00:00 [facility] Influenza Virus 2019-11-26 Completed [facility] Vaccine (3+ yrs) 00:00:00 [facility] Influenza Virus 2019-11-26 Completed [facility] Vaccine (3+ yrs) 00:00:00 [facility] Influenza Virus 2019-11-26 Completed [facility] Vaccine (3+ yrs) 00:00:00 [facility] Influenza Virus 2019-11-26 Completed [facility] Vaccine (3+ yrs) 00:00:00 [facility] Twinrix (hep a/hep 2019-05-23 Completed Univer sity of b) 00:00:00 [facility] Twinrix (hep a/hep 2019-05-23 Completed Univer sity of b) 00:00:00 [facility] Twinrix (hep a/hep 2019-05-23 Completed Univer sity of b) 00:00:00 [facility] Twinrix (hep a/hep 2019-05-23 Completed Univer sity of b) 00:00:00 [facility] Twinrix (hep a/hep 2019-05-23 Completed Univer sity of b) 00:00:00 [facility] Twinrix (hep a/hep 2019-05-23 Completed Univer sity of b) 00:00:00 [facility] Twinrix (hep a/hep 2019-05-23 Completed [facility] sity of b) 00:00:00 [facility] Twinrix (hep a/hep 2019-05-23 Completed Univer sity of b) 00:00:00 [facility] (hep a/hep 2019-05-23 Completed Univer sity of b) 00:00:00 [facility] Twinrix (hep a/hep 2019-05-23 Completed Univer sity of b) 00:00:00 [facility] Twinrix (hep a/hep 2019-05-23 Completed Un[facility] sity of b) 00:00:00 [facility] (hep a/hep 2019-05-23 Completed [facility]iver sity of b) 00:00:00 [facility] (hep a/hep 2019-05-23 Completed [facility]iver sity of b) 00:00:00 [facility] (hep a/hep 2019-05-23 Completed Univer sity of b) 00:00:00 [facility] Twin[facility] (hep a/hep 2019-05-23 Completed Univer sity of b) 00:00:00 [facility] Twin[facility] (hep a/hep 2019-05-23 Completed Univer sity of b) 00:00:00 [facility] Twinrix (hep a/hep 2019-05-23 Completed Univer sity of b) 00:00:00 [facility] Twinrix (hep a/hep 2019-05-23 Completed Univer sity of b) 00:00:00 [facility] Twinrix (hep a/hep 2019-05-23 Completed Univer sity of b) 00:00:00 [facility] Twinrix (hep a/hep 2019-05-23 Completed Univer sity of b) 00:00:00 [facility] Twinrix (hep a/hep 2019-05-23 Completed Univer sity of b) 00:00:00 [facility] Twinrix (hep a/hep 2019-05-23 Completed Univer sity of b) 00:00:00 [facility] Twinrix (hep a/hep 2019-05-23 Completed Univer sity of b) 00:00:00 [facility] Twinrix (hep a/hep 2019-05-23 Completed [...] 2019-05-23 Completed [facility] sity of b) 00:00:00 [facility] Twinrix (hep a/hep 2019-05-23 Completed [facility]iver sity of b) 00:00:00 [facility] Twinrix (hep a/hep 2019-05-23 Completed Univer sity of b) 00:00:00 [facility] Twinrix (hep a/hep 2019-05-23 Completed Univer sity of b) 00:00:00 [facility] Twinrix (hep a/hep 2019-05-23 Completed Univer sity of b) 00:00:00 [facility] Twinrix (hep a/hep 2019-05-23 Completed Univer sity of b) 00:00:00 [facility] Twinrix (hep a/hep 2019-05-23 Completed Univer sity of b) 00:00:00 [facility] Twinrix (hep a/hep 2019-05-23 Completed Univer sity of b) 00:00:00 [facility] Twinrix (hep a/hep 2019-05-23 Completed Univer sity of b) 00:00:00 [facility] Twinrix (hep a/hep 2019-05-23 Completed Univer sity of b) 00:00:00 [facility] Twinrix (hep a/hep 2019-05-23 Completed Univer sity of b) 00:00:00 [facility] Twinrix (hep a/hep 2019-05-23 Completed Univer sity of b) 00:00:00 [facility] Twinrix (hep a/hep 2019-05-23 Completed Univer sity of b) 00:00:00 [facility] Twinrix (hep a/hep 2019-05-23 Completed Univer sity of b) 00:00:00 [facility] Twinrix (hep a/hep 2019-05-23 Completed Univer sity of b) 00:00:00 [facility] Twinrix (hep a/hep 2019-05-23 Completed Univer sity of b) 00:00:00 [facility] Twinrix (hep a/hep 2019-05-23 Completed Univer sity of b) 00:00:00 [facility] Twinrix (hep a/hep 2019-05-23 Completed Univer sity of b) 00:00:00 [facility] Twinrix (hep a/hep 2019-05-23 Completed Univer sity of b) 00:00:00 [facility] Twinrix (hep a/hep 2019-05-23 Completed Univer sity of b) 00:00:00 [facility] Twinrix (hep a/hep 2019-05-23 Completed Univer sity of b) 00:00:00 [facility] Twinrix (hep a/hep 2019-05-23 Completed Univer sity of b) 00:00:00 [facility] Twinrix (hep a/hep 2019-05-23 Completed Univer sity of b) 00:00:00 [facility] Twinrix (hep a/hep 2019-05-23 Completed Univer sity of b) 00:00:00 [facility] Twinrix (hep a/hep 2019-05-23 Completed Univer sity of b) 00:00:00 [facility] Twinrix (hep a/hep 2019-05-23 Completed Univer sity of b) 00:00:00 [facility] Twinrix (hep a/hep 2019-05-23 Completed Univer sity of b) 00:00:00 [facility] Twinrix (hep a/hep 2019-05-23 Completed Univer sity of b) 00:00:00 [facility] Twinrix (hep a/hep 2019-05-23 Completed Univer sity of b) 00:00:00 [facility] Twinrix (hep a/hep 2019-05-23 Completed Univer sity of b) 00:00:00 [facility] Twinrix (hep a/hep 2019-05-23 Completed Univer sity of b) 00:00:00 [facility] Twinrix (hep a/hep 2019-05-23 Completed Univer sity of b) 00:00:00 [facility] Twinrix (hep a/hep 2019-05-23 Completed Univer sity of b) 00:00:00 [facility] Twinrix (hep a/hep 2019-05-23 Completed Univer sity of b) 00:00:00 [facility] Twinrix (hep a/hep 2019-05-23 Completed Univer sity of b) 00:00:00 [facility] Twinrix (hep a/hep 2019-05-23 Completed Univer sity of b) 00:00:00 [facility] Twinrix (hep a/hep 2019-05-23 Completed Univer sity of b) 00:00:00 [facility] Twinrix (hep a/hep 2019-05-23 Completed Univer sity of b) 00:00:00 [facility] Twinrix (hep a/hep 2019-05-23 Completed Univer sity of b) 00:00:00 [facility] Twinrix (hep a/hep 2019-05-23 Completed Univer sity of b) 00:00:00 [facility] Twinrix (hep a/hep 2019-05-23 Completed Univer sity of b) 00:00:00 [facility] Twinrix (hep a/hep 2019-05-23 Completed Univer sity of b) 00:00:00 [facility] Twinrix (hep a/hep 2019-05-23 Completed Univer sity of b) 00:00:00 [facility] Twinrix (hep a/hep 2019-05-23 Completed Univer sity of b) 00:00:00 [facility] Twinrix (hep a/hep 2019-05-23 Completed Univer sity of b) 00:00:00 [facility] Twinrix (hep a/hep 2019-05-23 Completed [facility]iver sity of b) 00:00:00 [facility] Twinrix (hep a/hep 2019-05-23 Completed Univer sity of b) 00:00:00 [facility] Twinrix (hep a/hep 2019-05-23 Completed Univer sity of b) 00:00:00 [facility] Pneumococcal 13 2018-12-28 Completed Univers[facility] y [...] [facility] y of Conjugate, PCV13 00:00:00 [facility]Pre[facility]ar [facility] Pneumococcal 13 2018-12-28 Completed [facility] of Conjugate, PCV13 00:00:00 [facility] (Prevnar 13) [facility] Pneumococcal 13 2018-12-28 Completed [facility] of Conjugate, PCV13 00:00:00 [facility] (Prevnar 13) [facility] Pneumococcal 13 2018-12-28 Completed [facility] of Conjugate, PCV13 00:00:00 [facility] (Prevnar 13) [facility] Pneumococcal 13 2018-12-28 Completed [facility] y of Conjugate, PCV13 00:00:00 [facility] dical (Prevnar 13) Branch Pneumococcal 13 2018-12-28 Completed Universit y of Conjugate, PCV13 00:00:00 [facility] dical (Prevnar 13) Branch Influenza Virus 2018-11-25 Completed Univers[facility] y of Vaccine (3+ yrs) 00:00:00 [facility] Influenza High Dose 2018-11-25 Completed Unive rsity of 00:00:00 [facility] Influenza Virus 2018-11-25 Completed Universit y of Vaccine (3+ yrs) 00:00:00 [facility] Influenza High Dose 2018-11-25 Completed Unive rsity of 00:00:00 [facility] Influenza Virus 2018-11-25 Completed Univers[facility] y of Vaccine (3+ yrs) 00:00:00 [facility] Influenza High Dose 2018-11-25 Completed Unive rsity of 00:00:00 [facility] Influenza Virus 2018-11-25 Completed [facility]it y of Vaccine (3+ yrs) 00:00:00 [facility] Influenza High Dose 2018-11-25 Completed Unive rsity of 00:00:00 [facility] Influenza Virus 2018-11-25 Completed Universit y of Vaccine (3+ yrs) 00:00:00 [facility] Influenza High Dose 2018-11-25 Completed Unive rsity of 00:00:00 [facility] Influenza Virus 2018-11-25 Completed [facility] y of Vaccine (3+ yrs) 00:00:00 [facility] Influenza High Dose 2018-11-25 Completed Unive rsity of 00:00:00 [facility] Influenza Virus 2018-11-25 Completed [facility] y of Vaccine (3+ yrs) 00:00:00 [facility] Influenza High Dose 2018-11-25 Completed Unive rsity of 00:00:00 [facility] Influenza Virus 2018-11-25 Completed [facility] y of Vaccine (3+ yrs) 00:00:00 [facility] Influenza High Dose 2018-11-25 Completed Unive rsity of 00:00:00 [facility] Influenza Virus 2018-11-25 Completed [facility] y of Vaccine (3+ yrs) 00:00:00 [facility] Influenza High Dose 2018-11-25 Completed Unive rsity of 00:00:00 [facility] Influenza Virus 2018-11-25 Completed [facility] y of Vaccine (3+ yrs) 00:00:00 [facility] Influenza High Dose 2018-11-25 Completed Unive rsity of 00:00:00 [facility] Influenza Virus 2018-11-25 Completed [facility] y of Vaccine (3+ yrs) 00:00:00 [facility] Influenza High Dose 2018-11-25 Completed Unive rsity of 00:00:00 [facility] Influenza Virus 2018-11-25 Completed [facility] y of Vaccine (3+ yrs) 00:00:00 [facility] Influenza High Dose 2018-11-25 Completed Unive rsity of 00:00:00 [facility] Influenza Virus 2018-11-25 Completed [facility] y of Vaccine (3+ yrs) 00:00:00 [facility] Influenza High Dose 2018-11-25 Completed Unive rsity of 00:00:00 [facility] Influenza Virus 2018-11-25 Completed Univers[facility] y of Vaccine (3+ yrs) 00:00:00 [facility] Influenza High Dose 2018-11-25 Completed Unive rsity of 00:00:00 [facility] Influenza Virus 2018-11-25 Completed [facility]it y of Vaccine (3+ yrs) 00:00:00 [facility] Influenza High Dose 2018-11-25 Completed Unive rsity of 00:00:00 [facility] Influenza Virus 2018-11-25 Completed Universit y of Vaccine (3+ yrs) 00:00:00 [facility] Influenza High Dose 2018-11-25 Completed Unive rsity of 00:00:00 [facility] Influenza Virus 2018-11-25 Completed [facility] y of Vaccine (3+ yrs) 00:00:00 [facility] Influenza High Dose 2018-11-25 Completed Unive rsity of 00:00:00 [facility] Influenza Virus 2018-11-25 Completed Universit y of Vaccine (3+ yrs) 00:00:00 [facility] Influenza High Dose 2018-11-25 Completed Unive rsity of 00:00:00 [facility] Influenza Virus 2018-11-25 Completed Universit y of Vaccine (3+ yrs) 00:00:00 [facility] Influenza High Dose 2018-11-25 Completed Unive rsity of 00:00:00 [facility] Influenza Virus 2018-11-25 Completed [facility] y of Vaccine (3+ yrs) 00:00:00 [facility] Influenza High Dose 2018-11-25 Completed Unive rsity of 00:00:00 [facility] Influenza Virus 2018-11-25 Completed Univers[facility] y of Vaccine (3+ yrs) 00:00:00 [facility] Influenza High Dose 2018-11-25 Completed Unive rsity of 00:00:00 [facility] Influenza Virus 2018-11-25 Completed Univers[facility] y of Vaccine (3+ yrs) 00:00:00 [facility] Influenza High Dose 2018-11-25 Completed Unive rsity of 00:00:00 [facility] Influenza Virus 2018-11-25 Completed [facility] Vaccine (3+ yrs) 00:00:00 [facility] Influenza High Dose 2018-11-25 Completed [facility]ive rsity of 00:00:00 [facility] Influenza Virus 2018-11-25 Completed [facility] Vaccine (3+ yrs) 00:00:00 [facility] Influenza High Dose 2018-11-25 Completed [facility] rsity of 00:00:00 [facility] Influenza Virus 2018-11-25 Completed [facility] Vaccine (3+ yrs) 00:00:00 [facility] Influenza High Dose 2018-11-25 Completed [facility]ive rsity of 00:00:00 [facility] Influenza Virus 2018-11-25 Completed [facility] of Vaccine (3+ yrs) 00:00:00 [facility] Influenza High Dose 2018-11-25 Completed [facility]ive rsity of 00:00:00 [facility] Influenza Virus 2018-11-25 Completed [facility] of Vaccine (3+ yrs) 00:00:00 [facility] Influenza High Dose 2018-11-25 Completed [facility] rsity of 00:00:00 [facility] Influenza Virus 2018-11-25 Completed [facility] Vaccine (3+ yrs) 00:00:00 [facility] Influenza High Dose 2018-11-25 Completed [facility] rsity of 00:00:00 [facility] Influenza Virus 2018-11-25 Completed [facility] Vaccine (3+ yrs) 00:00:00 [facility] Influenza High Dose 2018-11-25 Completed [facility]ive rsity of 00:00:00 [facility] Influenza Virus 2018-11-25 Completed [facility] Vaccine (3+ yrs) 00:00:00 [facility] Influenza High Dose 2018-11-25 Completed [facility] rsity of 00:00:00 [facility] Influenza Virus 2018-11-25 Completed [facility] Vaccine (3+ yrs) 00:00:00 [facility] Influenza High Dose 2018-11-25 Completed [facility] of 00:00:00 [facility] Influenza Virus 2018-11-25 Completed [facility] Vaccine (3+ yrs) 00:00:00 [facility] Influenza High Dose 2018-11-25 Completed [facility] of 00:00:00 [facility] Influenza Virus 2018-11-25 Completed [facility] Vaccine (3+ yrs) 00:00:00 [facility] Influenza High Dose 2018-11-25 Completed [facility] of 00:00:00 [facility] Influenza Virus 2018-11-25 Completed [facility] Vaccine (3+ yrs) 00:00:00 [facility] Influenza High Dose 2018-11-25 Completed [facility] of 00:00:00 [facility] Influenza Virus 2018-11-25 Completed [facility] Vaccine (3+ yrs) 00:00:00 [facility] Influenza High Dose 2018-11-25 Completed [facility] of 00:00:00 [facility] Influenza Virus 2018-11-25 Completed [facility] Vaccine (3+ yrs) 00:00:00 [facility] Influenza High Dose 2018-11-25 Completed [facility] of 00:00:00 [facility] Influenza Virus 2018-11-25 Completed [facility] Vaccine (3+ yrs) 00:00:00 [facility] Influenza High Dose 2018-11-25 Completed [facility] of 00:00:00 [facility] Influenza Virus 2018-11-25 Completed [facility] Vaccine (3+ yrs) 00:00:00 [facility] Influenza High Dose 2018-11-25 Completed [facility] of 00:00:00 [facility] Influenza Virus 2018-11-25 Completed [facility] Vaccine (3+ yrs) 00:00:00 [facility] Influenza High Dose 2018-11-25 Completed [facility] of 00:00:00 [facility] Influenza Virus 2018-11-25 Completed [facility] of Vaccine (3+ yrs) 00:00:00 [facility] Influenza High Dose 2018-11-25 Completed [facility] of 00:00:00 [facility] Influenza Virus 2018-11-25 Completed [facility] Vaccine (3+ yrs) 00:00:00 [facility] Influenza High Dose 2018-11-25 Completed [facility] of 00:00:00 [facility] Influenza Virus 2018-11-25 Completed [facility] Vaccine (3+ yrs) 00:00:00 [facility] Influenza High Dose 2018-11-25 Completed [facility] of 00:00:00 [facility] Influenza Virus 2018-11-25 Completed [facility] of Vaccine (3+ yrs) 00:00:00 [facility] Influenza High Dose 2018-11-25 Completed [facility] of 00:00:00 [facility] Influenza Virus 2018-11-25 Completed [facility] of Vaccine (3+ yrs) 00:00:00 [facility] Influenza High Dose 2018-11-25 Completed [facility] of 00:00:00 [facility] Influenza Virus 2018-11-25 Completed [facility] Vaccine (3+ yrs) 00:00:00 [facility] Influenza High Dose 2018-11-25 Completed [facility] of 00:00:00 [facility] Influenza Virus 2018-11-25 Completed [facility] of Vaccine (3+ yrs) 00:00:00 [facility] Influenza High Dose 2018-11-25 Completed [facility]ity of 00:00:00 [facility] Influenza Virus 2018-11-25 Completed [facility] of Vaccine (3+ yrs) 00:00:00 [facility] Influenza High Dose 2018-11-25 Completed [facility]ity of 00:00:00 [facility] Influenza Virus 2018-11-25 Completed [facility] of Vaccine (3+ yrs) 00:00:00 [facility] Influenza High Dose 2018-11-25 Completed [facility] of 00:00:00 [facility] Influenza Virus 2018-11-25 Completed [facility] of Vaccine (3+ yrs) 00:00:00 [facility] Influenza High Dose 2018-11-25 Completed [facility] of 00:00:00 [facility] Influenza Virus 2018-11-25 Completed [facility] of Vaccine (3+ yrs) 00:00:00 [facility] Influenza High Dose 2018-11-25 Completed [facility] of 00:00:00 [facility] Influenza Virus 2018-11-25 Completed [facility] of Vaccine (3+ yrs) 00:00:00 [facility] Influenza High Dose 2018-11-25 Completed [facility] of 00:00:00 [facility] Influenza Virus 2018-11-25 Completed [facility] of Vaccine (3+ yrs) 00:00:00 [facility] Influenza High Dose 2018-11-25 Completed [facility]ity of 00:00:00 [facility] Influenza Virus 2018-11-25 Completed [facility] of Vaccine (3+ yrs) 00:00:00 [facility] Influenza High Dose 2018-11-25 Completed [facility] of 00:00:00 [facility] Influenza Virus 2018-11-25 Completed [facility] of Vaccine (3+ yrs) 00:00:00 [facility] Influenza High Dose 2018-11-25 Completed [facility] of 00:00:00 [facility] Influenza Virus 2018-11-25 Completed [facility] of Vaccine (3+ yrs) 00:00:00 [facility] Influenza High Dose 2018-11-25 Completed [facility] of 00:00:00 [facility] Influenza Virus 2018-11-25 Completed [facility] of Vaccine (3+ yrs) 00:00:00 [facility] Influenza High Dose 2018-11-25 Completed [facility]ity of 00:00:00 [facility] Influenza Virus 2018-11-25 Completed [facility] of Vaccine (3+ yrs) 00:00:00 [facility] Influenza High Dose 2018-11-25 Completed [facility] of 00:00:00 [facility] Influenza Virus 2018-11-25 Completed [facility] of Vaccine (3+ yrs) 00:00:00 [facility] Influenza High Dose 2018-11-25 Completed [facility] of 00:00:00 [facility] Influenza Virus 2018-11-25 Completed [facility] of Vaccine (3+ yrs) 00:00:00 [facility] Influenza High Dose 2018-11-25 Completed [facility] of 00:00:00 [facility] Influenza Virus 2018-11-25 Completed [facility] of Vaccine (3+ yrs) 00:00:00 [facility] Influenza High Dose 2018-11-25 Completed [facility] of 00:00:00 [facility] Influenza Virus 2018-11-25 Completed [facility] of Vaccine (3+ yrs) 00:00:00 [facility] Influenza High Dose 2018-11-25 Completed [facility] of 00:00:00 [facility] Influenza Virus 2018-11-25 Completed [facility] of Vaccine (3+ yrs) 00:00:00 [facility] Influenza High Dose 2018-11-25 Completed [facility] of 00:00:00 [facility] Influenza Virus 2018-11-25 Completed [facility] of Vaccine (3+ yrs) 00:00:00 [facility] Influenza High Dose 2018-11-25 Completed [facility] of 00:00:00 [facility] Influenza Virus 2018-11-25 Completed [facility] of Vaccine (3+ yrs) 00:00:00 [facility] Influenza High Dose 2018-11-25 Completed [facility] of 00:00:00 [facility] Influenza Virus 2018-11-25 Completed [facility] of Vaccine (3+ yrs) 00:00:00 [facility] Influenza High Dose 2018-11-25 Completed [facility]ity of 00:00:00 [facility] Influenza Virus 2018-11-25 Completed [facility] of Vaccine (3+ yrs) 00:00:00 [facility] Influenza High Dose 2018-11-25 Completed [facility]ity of 00:00:00 [facility] Influenza Virus 2018-11-25 Completed [facility] of Vaccine (3+ yrs) 00:00:00 [facility] Influenza High Dose 2018-11-25 Completed [facility] of 00:00:00 [facility] Influenza Virus 2018-11-25 Completed [facility] of Vaccine (3+ yrs) 00:00:00 [facility] Influenza High Dose 2018-11-25 Completed [facility] of 00:00:00 [facility] Influenza Virus 2018-11-25 Completed [facility] of Vaccine (3+ yrs) 00:00:00 [facility] Influenza High Dose 2018-11-25 Completed [facility]ity of 00:00:00 [facility] Influenza Virus 2018-11-25 Completed [facility] of Vaccine (3+ yrs) 00:00:00 [facility] Influenza High Dose 2018-11-25 Completed [facility]ity of 00:00:00 [facility] Influenza Virus 2018-11-25 Completed [facility] of Vaccine (3+ yrs) 00:00:00 [facility] Influenza High Dose 2018-11-25 Completed [facility] of 00:00:00 [facility] Influenza Virus 2018-11-25 Completed [facility] of Vaccine (3+ yrs) 00:00:00 [facility] Influenza High Dose 2018-11-25 Completed [facility] of 00:00:00 [facility] Influenza Virus 2018-11-25 Completed [facility] of Vaccine (3+ yrs) 00:00:00 [facility] Influenza High Dose 2018-11-25 Completed [facility] of 00:00:00 [facility] Influenza Virus 2018-11-25 Completed [facility] of Vaccine (3+ yrs) 00:00:00 [facility] Influenza High Dose 2018-11-25 Completed [facility]ity of 00:00:00 [facility] Influenza Virus 2018-11-25 Completed [facility] of Vaccine (3+ yrs) 00:00:00 [facility] Influenza High Dose 2018-11-25 Completed [facility] of 00:00:00 [facility] Influenza Virus 2018-11-25 Completed [facility] of Vaccine (3+ yrs) 00:00:00 [facility] Influenza High Dose 2018-11-25 Completed [facility] of 00:00:00 [facility] Influenza Virus 2018-11-22 Completed [facility] of Vaccine (3+ yrs) 00:00:00 [facility] Influenza Virus 2018-11-22 Completed [facility] of Vaccine (3+ yrs) 00:00:00 [facility] Influenza Virus 2018-11-22 Completed [facility] of Vaccine (3+ yrs) 00:00:00 [facility] Influenza Virus 2018-11-22 Completed [facility] of Vaccine (3+ yrs) 00:00:00 [facility] Influenza Virus 2018-11-22 Completed [facility] of Vaccine (3+ yrs) 00:00:00 [facility] Influenza Virus 2018-11-22 Completed [facility] of Vaccine (3+ yrs) 00:00:00 [facility] Influenza Virus 2018-11-22 Completed [facility] of Vaccine (3+ yrs) 00:00:00 [facility] Influenza Virus 2018-11-22 Completed [facility] of Vaccine (3+ yrs) 00:00:00 [facility] Influenza Virus 2018-11-22 Completed [facility] of Vaccine (3+ yrs) 00:00:00 [facility] Influenza Virus 2018-11-22 Completed [facility] of Vaccine (3+ yrs) 00:00:00 [facility] Influenza Virus 2018-11-22 Completed [facility] of Vaccine (3+ yrs) 00:00:00 [facility] Influenza Virus 2018-11-22 Completed [facility] of Vaccine (3+ yrs) 00:00:00 [facility] Influenza Virus 2018-11-22 Completed [facility] of Vaccine (3+ yrs) 00:00:00 [facility] Influenza Virus 2018-11-22 Completed [facility] of Vaccine (3+ yrs) 00:00:00 [facility] Influenza Virus 2018-11-22 Completed [facility] of Vaccine (3+ yrs) 00:00:00 [facility] Influenza Virus 2018-11-22 Completed [facility] of Vaccine (3+ yrs) 00:00:00 [facility] Influenza Virus 2018-11-22 Completed [facility] of Vaccine (3+ yrs) 00:00:00 [facility] Influenza Virus 2018-11-22 Completed [facility] of Vaccine (3+ yrs) 00:00:00 [facility] Influenza Virus 2018-11-22 Completed [facility] of Vaccine (3+ yrs) 00:00:00 [facility] Influenza Virus 2018-11-22 Completed [facility] of Vaccine (3+ yrs) 00:00:00 [facility] Influenza Virus 2018-11-22 Completed [facility] of Vaccine (3+ yrs) 00:00:00 [facility] Influenza Virus 2018-11-22 Completed [facility] of Vaccine (3+ yrs) 00:00:00 [facility] Influenza Virus 2018-11-22 Completed [facility] of Vaccine (3+ yrs) 00:00:00 [facility] Influenza Virus 2018-11-22 Completed [facility] of Vaccine (3+ yrs) 00:00:00 [facility] Influenza Virus 2018-11-22 Completed [facility] of Vaccine (3+ yrs) 00:00:00 [facility] Influenza Virus 2018-11-22 Completed [facility] of Vaccine (3+ yrs) 00:00:00 [facility] Influenza Virus 2018-11-22 Completed [facility] of Vaccine (3+ yrs) 00:00:00 [facility] Influenza Virus 2018-11-22 Completed [facility] of Vaccine (3+ yrs) 00:00:00 [facility] Influenza Virus 2018-11-22 Completed [facility] of Vaccine (3+ yrs) 00:00:00 [facility] Influenza Virus 2018-11-22 Completed [facility] of Vaccine (3+ yrs) 00:00:00 [facility] Influenza Virus 2018-11-22 Completed [facility] of Vaccine (3+ yrs) 00:00:00 [facility] Influenza Virus 2018-11-22 Completed [facility] of Vaccine (3+ yrs) 00:00:00 [facility] Influenza Virus 2018-11-22 Completed [facility] of Vaccine (3+ yrs) 00:00:00 [facility] Influenza Virus 2018-11-22 Completed [facility] of Vaccine (3+ yrs) 00:00:00 [facility] Influenza Virus 2018-11-22 Completed [facility] of Vaccine (3+ yrs) 00:00:00 [facility] Influenza Virus 2018-11-22 Completed [facility] of Vaccine (3+ yrs) 00:00:00 [facility] Influenza Virus 2018-11-22 Completed [facility] of Vaccine (3+ yrs) 00:00:00 [facility] Influenza Virus 2018-11-22 Completed [facility] y of Vaccine (3+ yrs) 00:00:00 [facility] Influenza Virus 2018-11-22 Completed [facility] of Vaccine (3+ yrs) 00:00:00 [facility] Influenza Virus 2018-11-22 Completed [facility] y of Vaccine (3+ yrs) 00:00:00 [facility] Influenza Virus 2018-11-22 Completed [facility] y of Vaccine (3+ yrs) 00:00:00 [facility] Influenza Virus 2018-11-22 Completed [facility] y of Vaccine (3+ yrs) 00:00:00 [facility] Influenza Virus 2018-11-22 Completed [facility] of Vaccine (3+ yrs) 00:00:00 [facility] Influenza Virus 2018-11-22 Completed [facility] y of Vaccine (3+ yrs) 00:00:00 [facility] Influenza Virus 2018-11-22 Completed [facility] of Vaccine (3+ yrs) 00:00:00 [facility] Influenza Virus 2018-11-22 Completed [facility] y of Vaccine (3+ yrs) 00:00:00 [facility] Influenza Virus 2018-11-22 Completed [facility] y of Vaccine (3+ yrs) 00:00:00 [facility] Influenza Virus 2018-11-22 Completed [facility] y of Vaccine (3+ yrs) 00:00:00 [facility] Influenza Virus 2018-11-22 Completed [facility] y of Vaccine (3+ yrs) 00:00:00 [facility] Influenza Virus 2018-11-22 Completed [facility] y of Vaccine (3+ yrs) 00:00:00 [facility] Influenza Virus 2018-11-22 Completed [facility] of Vaccine (3+ yrs) 00:00:00 [facility] Influenza Virus 2018-11-22 Completed [facility] y of Vaccine (3+ yrs) 00:00:00 [facility] Influenza Virus 2018-11-22 Completed [facility] y of Vaccine (3+ yrs) 00:00:00 [facility] Influenza Virus 2018-11-22 Completed [facility] y of Vaccine (3+ yrs) 00:00:00 [facility] Influenza Virus 2018-11-22 Completed [facility] y of Vaccine (3+ yrs) 00:00:00 [facility] Influenza Virus 2018-11-22 Completed [facility] y of Vaccine (3+ yrs) 00:00:00 [facility] Influenza Virus 2018-11-22 Completed [facility] y of Vaccine (3+ yrs) 00:00:00 [facility] Influenza Virus 2018-11-22 Completed [facility] y of Vaccine (3+ yrs) 00:00:00 [facility] Influenza Virus 2018-11-22 Completed [facility] y of Vaccine (3+ yrs) 00:00:00 [facility] Influenza Virus 2018-11-22 Completed [facility] y of Vaccine (3+ yrs) 00:00:00 [facility] Influenza Virus 2018-11-22 Completed [facility] y of Vaccine (3+ yrs) 00:00:00 [facility] Influenza Virus 2018-11-22 Completed [facility] y of Vaccine (3+ yrs) 00:00:00 [facility] Influenza Virus 2018-11-22 Completed [facility] y of Vaccine (3+ yrs) 00:00:00 [facility] Influenza Virus 2018-11-22 Completed [facility] y of Vaccine (3+ yrs) 00:00:00 [facility] Influenza Virus 2018-11-22 Completed [facility] y of Vaccine (3+ yrs) 00:00:00 [facility] Influenza Virus 2018-11-22 Completed [facility] y of Vaccine (3+ yrs) 00:00:00 [facility] Influenza Virus 2018-11-22 Completed [facility] y of Vaccine (3+ yrs) 00:00:00 [facility] Influenza Virus 2018-11-22 Completed [facility] y of Vaccine (3+ yrs) 00:00:00 [facility] Influenza Virus 2018-11-22 Completed [facility] y of Vaccine (3+ yrs) 00:00:00 [facility] Influenza Virus 2018-11-22 Completed [facility] y of Vaccine (3+ yrs) 00:00:00 [facility] Influenza Virus 2018-11-22 Completed [facility] y of Vaccine (3+ yrs) 00:00:00 [facility] Influenza Virus 2018-11-22 Completed [facility] y of Vaccine (3+ yrs) 00:00:00 [facility] Influenza Virus 2018-11-22 Completed [facility] y of Vaccine (3+ yrs) 00:00:00 [facility] Influenza Virus 2018-11-22 Completed [facility] y of Vaccine (3+ yrs) 00:00:00 [facility] Influenza Virus 2018-11-22 Completed [facility] of Vaccine (3+ yrs) 00:00:00 [facility] Influenza Virus 2018-11-22 Completed [facility] y of Vaccine (3+ yrs) 00:00:00 [facility] Twinrix (hep a/hep 2018-05-23 Completed Univer sity of b) 00:00:00 [facility] Pneumococcal 13 2018-05-23 Completed Universit y of Conjugate, PCV13 00:00:00 [facility] dicut (Prevnar 13) Branch Twinrix (hep a/hep 2018-05-23 Completed Univer sity of b) 00:00:00 [facility] Pneumococcal 13 2018-05-23 Completed [facility] y of Conjugate, PCV13 00:00:00 [facility] dicut (Prevnar 13) [facility] Twinrix (hep a/hep 2018-05-23 Completed Univer sity of b) 00:00:00 [facility] Pneumococcal 13 2018-05-23 Completed [facility] y of Conjugate, PCV13 00:00:00 [facility] dicut (Prevnar 13) [facility] Twinrix (hep a/hep 2018-05-23 Completed Univer sity of b) 00:00:00 [facility] Pneumococcal 13 2018-05-23 Completed [facility] of Conjugate, PCV13 00:00:00 [place] [facility] (Prevnar 13) [facility] Twinrix (hep a/hep 2018-05-23 Completed Univer sity of b) 00:00:00 [facility] Pneumococcal 13 2018-05-23 Completed [facility] of Conjugate, PCV13 00:00:00 [place] [facility] (Prevnar 13) [facility] Twinrix (hep a/hep 2018-05-23 Completed Univer sity of b) 00:00:00 [facility] Pneumococcal 13 2018-05-23 Completed [facility] of Conjugate, PCV13 00:00:00 [place] [facility] (Prevnar 13) [facility] Twinrix (hep a/hep 2018-05-23 Completed Univer sity of b) 00:00:00 [facility] Pneumococcal 13 2018-05-23 Completed [facility] of Conjugate, PCV13 00:00:00 [place] [facility] (Prevnar 13) [facility] Twinrix (hep a/hep 2018-05-23 Completed Univer sity of b) 00:00:00 [facility] Pneumococcal 13 2018-05-23 Completed [facility] y of Conjugate, PCV13 00:00:00 [place] [facility] (Prevnar 13) [facility] Twinrix (hep a/hep 2018-05-23 Completed Univer sity of b) 00:00:00 [facility] Pneumococcal 13 2018-05-23 Completed [facility] of Conjugate, PCV13 00:00:00 [place] [facility] (Prevnar 13) [facility] Twinrix (hep a/hep 2018-05-23 Completed Univer sity of b) 00:00:00 [facility] Pneumococcal 13 2018-05-23 Completed [facility] of Conjugate, PCV13 00:00:00 [place] [facility] (Prevnar 13) [facility] Twinrix (hep a/hep 2018-05-23 Completed Univer sity of b) 00:00:00 [facility] Pneumococcal 13 2018-05-23 Completed [facility] of Conjugate, PCV13 00:00:00 [place] [facility] (Prevnar 13) [facility] Twinrix (hep a/hep 2018-05-23 Completed Univer sity of b) 00:00:00 [facility] Pneumococcal 13 2018-05-23 Completed [facility] of Conjugate, PCV13 00:00:00 [place] [facility] (Prevnar 13) [facility] Twinrix (hep a/hep 2018-05-23 Completed Univer sity of b) 00:00:00 [facility] Pneumococcal 13 2018-05-23 Completed [facility] of Conjugate, PCV13 00:00:00 [place] [facility] (Prevnar 13) [facility] Twinrix (hep a/hep 2018-05-23 Completed Univer sity of b) 00:00:00 [facility] Pneumococcal 13 2018-05-23 Completed [facility] y of Conjugate, PCV13 00:00:00 [facility] dical (Prevnar 13) Branch Twinrix (hep a/hep 2018-05-23 Completed Univer sity of b) 00:00:00 [facility] Pneumococcal 13 2018-05-23 Completed [facility] y of Conjugate, PCV13 00:00:00 [facility] dical (Prevnar 13) Branch Twinrix (hep a/hep 2018-05-23 Completed Univer sity of b) 00:00:00 [facility] Pneumococcal 13 2018-05-23 Completed [facility] y of Conjugate, PCV13 00:00:00 [facility] dical (Prevnar 13) Branch Twinrix (hep a/hep 2018-05-23 Completed Univer sity of b) 00:00:00 [facility] Pneumococcal 13 2018-05-23 Completed [facility] y of Conjugate, PCV13 00:00:00 [facility] dical (Prevnar 13) Branch Twinrix (hep a/hep 2018-05-23 Completed Univer sity of b) 00:00:00 [facility] Pneumococcal 13 2018-05-23 Completed [facility] y of Conjugate, PCV13 00:00:00 [facility] dical (Prevnar 13) Branch Twinrix (hep a/hep 2018-05-23 Completed Univer sity of b) 00:00:00 [facility] Pneumococcal 13 2018-05-23 Completed [facility] y of Conjugate, PCV13 00:00:00 [facility] dical (Prevnar 13) Branch Twinrix (hep a/hep 2018-05-23 Completed Univer sity of b) 00:00:00 [facility] Pneumococcal 13 2018-05-23 Completed [facility] y of Conjugate, PCV13 00:00:00 [facility] dical (Prevnar 13) Branch Twinrix (hep a/hep 2018-05-23 Completed Univer sity of b) 00:00:00 [facility] Pneumococcal 13 2018-05-23 Completed [facility] of Conjugate, PCV13 00:00:00 [place] [facility] (Prevnar 13) [facility] Twinrix (hep a/hep 2018-05-23 Completed Univer sity of b) 00:00:00 [facility] Pneumococcal 13 2018-05-23 Completed [facility] of Conjugate, PCV13 00:00:00 [place] [facility] (Prevnar 13) [facility] Twinrix (hep a/hep 2018-05-23 Completed Univer [facility]ity of b) 00:00:00 [facility] Pneumococcal 13 2018-05-23 Completed [facility] Conjugate, PCV13 00:00:00 [place] [facility] (Prevnar 13) Branch Twinrix (hep a/hep 2018-05-23 Completed Univer sity of b) 00:00:00 [facility] Pneumococcal 13 2018-05-23 Completed Universit [facility] of Conjugate, PCV13 00:00:00 [place] [facility] (Prevnar 13) Branch Twinrix (hep a/hep 2018-05-23 Completed Univer sity of b) 00:00:00 [facility] Pneumococcal 13 2018-05-23 Completed [facility]it y of Conjugate, PCV13 00:00:00 [place] [facility] (Prevnar 13) Branch Twinrix (hep a/hep 2018-05-23 Completed Univer sity of b) 00:00:00 [facility] Pneumococcal 13 2018-05-23 Completed [facility]it y of Conjugate, PCV13 00:00:00 [place] [facility] (Prevnar 13) Branch Twinrix (hep a/hep 2018-05-23 Completed Univer sity of b) 00:00:00 [facility] Pneumococcal 13 2018-05-23 Completed [facility]it y of Conjugate, PCV13 00:00:00 [place] [facility] (Prevnar 13) Branch Twinrix (hep a/hep 2018-05-23 Completed Univer sity of b) 00:00:00 [facility] Pneumococcal 13 2018-05-23 Completed [facility]it y of Conjugate, PCV13 00:00:00 [place] [facility] (Prevnar 13) Branch Twinrix (hep a/hep 2018-05-23 Completed [facility]iver sity of b) 00:00:00 [facility] Pneumococcal 13 2018-05-23 Completed [facility]it y of Conjugate, PCV13 00:00:00 [place] [facility] (Prevnar 13) Branch Twinrix (hep a/hep 2018-05-23 Completed Univer sity of b) 00:00:00 [facility] Pneumococcal 13 2018-05-23 Completed [facility]it y of Conjugate, PCV13 00:00:00 [place] [facility] (Prevnar 13) Branch Twinrix (hep a/hep 2018-05-23 Completed [facility]iver sity of b) 00:00:00 [facility] Pneumococcal 13 2018-05-23 Completed [facility] of Conjugate, PCV13 00:00:00 [place] [facility] (Prevnar 13) Branch Twinrix (hep a/hep 2018-05-23 Completed Univer sity of b) 00:00:00 [facility] Pneumococcal 13 2018-05-23 Completed [facility]it y of Conjugate, PCV13 00:00:00 [place] [facility] (Prevnar 13) Branch Twinrix (hep a/hep 2018-05-23 Completed [facility]iver sity of b) 00:00:00 [facility] Pneumococcal 13 2018-05-23 Completed [facility]it y of Conjugate, PCV13 00:00:00 [place] [facility] (Prevnar 13) Branch Twinrix (hep a/hep 2018-05-23 Completed Univer sity of b) 00:00:00 [facility] Pneumococcal 13 2018-05-23 Completed [facility]it y of Conjugate, PCV13 00:00:00 [place] [facility] (Prevnar 13) Branch Twinrix (hep a/hep 2018-05-23 Completed [facility] of b) 00:00:00 [facility] Pneumococcal 13 2018-05-23 Completed [facility]it y of Conjugate, PCV13 00:00:00 [place] [facility] (Prevnar 13) Branch Twinrix (hep a/hep 2018-05-23 Completed Univer sity of b) 00:00:00 [facility] Pneumococcal 13 2018-05-23 Completed [facility]it y of Conjugate, PCV13 00:00:00 [place] [facility] (Prevnar 13) Branch Twinrix (hep a/hep 2018-05-23 Completed Univer sity of b) 00:00:00 [facility] Pneumococcal 13 2018-05-23 Completed [facility]it y of Conjugate, PCV13 00:00:00 [place] [facility] (Prevnar 13) Branch Twinrix (hep a/hep 2018-05-23 Completed Univer sity of b) 00:00:00 [facility] Pneumococcal 13 2018-05-23 Completed [facility]it y of Conjugate, PCV13 00:00:00 [place] [facility] (Prevnar 13) Branch Twinrix (hep a/hep 2018-05-23 Completed Univer sity of b) 00:00:00 [facility] Pneumococcal 13 2018-05-23 Completed Universit y of Conjugate, PCV13 00:00:00 [facility] dical (Prevnar 13) Branch Twinrix (hep a/hep 2018-05-23 Completed Univer sity of b) 00:00:00 [facility] Pneumococcal 13 2018-05-23 Completed Universit y of Conjugate, PCV13 00:00:00 [facility] dical (Prevnar 13) Branch Twinrix (hep a/hep 2018-05-23 Completed Univer sity of b) 00:00:00 [facility] Pneumococcal 13 2018-05-23 Completed Universit y of Conjugate, PCV13 00:00:00 [facility] dical (Prevnar 13) Branch Twinrix (hep a/hep 2018-05-23 Completed Univer sity of b) 00:00:00 [facility] Pneumococcal 13 2018-05-23 Completed [facility]it y of Conjugate, PCV13 00:00:00 [facility] dical (Prevnar 13) Branch Twinrix (hep a/hep 2018-05-23 Completed Univer sity of b) 00:00:00 [facility] Pneumococcal 13 2018-05-23 Completed [facility]it y of Conjugate, PCV13 00:00:00 [facility] dical (Prevnar 13) Branch Twinrix (hep a/hep 2018-05-23 Completed Univer sity of b) 00:00:00 [facility] Pneumococcal 13 2018-05-23 Completed [facility]it y of Conjugate, PCV13 00:00:00 [facility] dical (Prevnar 13) Branch Twinrix (hep a/hep 2018-05-23 Completed Univer sity of b) 00:00:00 [facility] Pneumococcal 13 2018-05-23 Completed [facility]it y of Conjugate, PCV13 00:00:00 [facility] dical (Prevnar 13) Branch Twinrix (hep a/hep 2018-05-23 Completed Univer sity of b) 00:00:00 [facility] Pneumococcal 13 2018-05-23 Completed [facility]it y of Conjugate, PCV13 00:00:00 [place] [facility] (Prevnar 13) Branch Twinrix (hep a/hep 2018-05-23 Completed Univer sity of b) 00:00:00 [facility] Pneumococcal 13 2018-05-23 Completed [facility]it y of Conjugate, PCV13 00:00:00 [place] [facility] (Prevnar 13) Branch Twinrix (hep a/hep 2018-05-23 Completed Univer sity of b) 00:00:00 [facility] Pneumococcal 13 2018-05-23 Completed [facility]it y of Conjugate, PCV13 00:00:00 [place] [facility] (Prevnar 13) Branch Twinrix (hep a/hep 2018-05-23 Completed Univer sity of b) 00:00:00 [facility] Pneumococcal 13 2018-05-23 Completed [facility]it y of Conjugate, PCV13 00:00:00 [place] [facility] (Prevnar 13) Branch Twinrix (hep a/hep 2018-05-23 Completed Univer sity of b) 00:00:00 [facility] Pneumococcal 13 2018-05-23 Completed [facility]it y of Conjugate, PCV13 00:00:00 [place] [facility] (Prevnar 13) Branch Twinrix (hep a/hep 2018-05-23 Completed Univer sity of b) 00:00:00 [facility] Pneumococcal 13 2018-05-23 Completed [facility]it y of Conjugate, PCV13 00:00:00 [place] [facility] (Prevnar 13) Branch Twinrix (hep a/hep 2018-05-23 Completed Univer sity of b) 00:00:00 [facility] Pneumococcal 13 2018-05-23 Completed [facility]it y of Conjugate, PCV13 00:00:00 [place] [facility] (Prevnar 13) Branch Twinrix (hep a/hep 2018-05-23 Completed Univer sity of b) 00:00:00 [facility] Pneumococcal 13 2018-05-23 Completed [facility]it y of Conjugate, PCV13 00:00:00 [place] [facility] (Prevnar 13) Branch Twinrix (hep a/hep 2018-05-23 Completed [facility]iver sity of b) 00:00:00 [facility] Pneumococcal 13 2018-05-23 Completed [facility]it y of Conjugate, PCV13 00:00:00 [place] [facility] (Prevnar 13) Branch Twinrix (hep a/hep 2018-05-23 Completed Univer sity of b) 00:00:00 [facility] Pneumococcal 13 2018-05-23 Completed [facility]it y of Conjugate, PCV13 00:00:00 [place] [facility] (Prevnar 13) Branch Twinrix (hep a/hep 2018-05-23 Completed Univer sity of b) 00:00:00 [facility] Pneumococcal 13 2018-05-23 Completed [facility]it y of Conjugate, PCV13 00:00:00 [place] [facility] (Prevnar 13) Branch Twinrix (hep a/hep 2018-05-23 Completed Univer sity of b) 00:00:00 [facility] Pneumococcal 13 2018-05-23 Completed [facility]it y of Conjugate, PCV13 00:00:00 [place] [facility] (Prevnar 13) Branch Twinrix (hep a/hep 2018-05-23 Completed Univer sity of b) 00:00:00 [facility] Pneumococcal 13 2018-05-23 Completed Universit y of Conjugate, PCV13 00:00:00 [place] [facility] (Prevnar 13) Branch Twinrix (hep a/hep 2018-05-23 Completed Univer sity of b) 00:00:00 [facility] Pneumococcal 13 2018-05-23 Completed [facility]it y of Conjugate, PCV13 00:00:00 [place] [facility] (Prevnar 13) Branch Twinrix (hep a/hep 2018-05-23 Completed Univer sity of b) 00:00:00 [facility] Pneumococcal 13 2018-05-23 Completed [facility]it y of Conjugate, PCV13 00:00:00 [place] [facility] (Prevnar 13) Branch Twinrix (hep a/hep 2018-05-23 Completed Univer sity of b) 00:00:00 [facility] Pneumococcal 13 2018-05-23 Completed [facility]it y of Conjugate, PCV13 00:00:00 [place] [facility] (Prevnar 13) Branch Twinrix (hep a/hep 2018-05-23 Completed Univer sity of b) 00:00:00 [facility] Pneumococcal 13 2018-05-23 Completed [facility]it y of Conjugate, PCV13 00:00:00 [place] [facility] (Prevnar 13) Branch Twinrix (hep a/hep 2018-05-23 Completed Univer sity of b) 00:00:00 [facility] Pneumococcal 13 2018-05-23 Completed Universit y of Conjugate, PCV13 00:00:00 [place] [facility] (Prevnar 13) Branch Twinrix (hep a/hep 2018-05-23 Completed Univer sity of b) 00:00:00 [facility] Pneumococcal 13 2018-05-23 Completed Universit y of Conjugate, PCV13 00:00:00 [facility] dical (Prevnar 13) Branch Twinrix (hep a/hep 2018-05-23 Completed Univer sity of b) 00:00:00 [facility] Pneumococcal 13 2018-05-23 Completed Universit y of Conjugate, PCV13 00:00:00 [facility] dical (Prevnar 13) Branch Twinrix (hep a/hep 2018-05-23 Completed Univer sity of b) 00:00:00 [facility] Pneumococcal 13 2018-05-23 Completed Universit y of Conjugate, PCV13 00:00:00 [facility] dical (Prevnar 13) Branch Twinrix (hep a/hep 2018-05-23 Completed Univer sity of b) 00:00:00 [facility] Pneumococcal 13 2018-05-23 Completed Universit y of Conjugate, PCV13 00:00:00 [facility] dical (Prevnar 13) Branch Twinrix (hep a/hep 2018-05-23 Completed Univer sity of b) 00:00:00 [facility] Pneumococcal 13 2018-05-23 Completed Universit y of Conjugate, PCV13 00:00:00 [facility] dical (Prevnar 13) Branch Twinrix (hep a/hep 2018-05-23 Completed Univer sity of b) 00:00:00 [facility] Pneumococcal 13 2018-05-23 Completed Universit y of Conjugate, PCV13 00:00:00 [facility] dical (Prevnar 13) Branch Twinrix (hep a/hep 2018-05-23 Completed Univer sity of b) 00:00:00 [facility] Pneumococcal 13 2018-05-23 Completed Universit y of Conjugate, PCV13 00:00:00 [facility] dical (Prevnar 13) Branch Twinrix (hep a/hep 2018-05-23 Completed Univer sity of b) 00:00:00 [facility] Pneumococcal 13 2018-05-23 Completed Universit y of Conjugate, PCV13 00:00:00 [facility] dical (Prevnar 13) Branch Twinrix (hep a/hep 2018-05-23 Completed Univer sity of b) 00:00:00 [facility] Pneumococcal 13 2018-05-23 Completed Universit y of Conjugate, PCV13 00:00:00 [facility] dical (Prevnar 13) Branch Twinrix (hep a/hep 2018-05-23 Completed Univer sity of b) 00:00:00 [facility] Pneumococcal 13 2018-05-23 Completed Universit y of Conjugate, PCV13 00:00:00 [facility] dical (Prevnar 13) Branch Twinrix (hep a/hep 2018-05-23 Completed Univer sity of b) 00:00:00 [facility] Pneumococcal 13 2018-05-23 Completed Universit y of Conjugate, PCV13 00:00:00 [facility] dical (Prevnar 13) Branch Twinrix (hep a/hep 2018-05-23 Completed Univer sity of b) 00:00:00 [facility] Pneumococcal 13 2018-05-23 Completed Universit y of Conjugate, PCV13 00:00:00 [facility] dical (Prevnar 13) Branch Twinrix (hep a/hep 2018-05-23 Completed Univer sity of b) 00:00:00 [facility] Pneumococcal 13 2018-05-23 Completed Universit y of Conjugate, PCV13 00:00:00 [facility] dical (Prevnar 13) Branch Influenza Virus 2016-11-10 Completed Universit y of Vaccine (3+ yrs) 00:00:00 [facility] Influenza Virus 2016-11-10 Completed Universit y of Vaccine (3+ yrs) 00:00:00 [facility] Influenza Virus 2016-11-10 Completed Universit y of Vaccine (3+ yrs) 00:00:00 [facility] Influenza Virus 2016-11-10 Completed Universit y of Vaccine (3+ yrs) 00:00:00 [facility] Influenza Virus 2016-11-10 Completed Universit y of Vaccine (3+ yrs) 00:00:00 [facility] Influenza Virus 2016-11-10 Completed Universit y of Vaccine (3+ yrs) 00:00:00 [facility] Influenza Virus 2016-11-10 Completed Universit y of Vaccine (3+ yrs) 00:00:00 [facility] Influenza Virus 2016-11-10 Completed Universit y of Vaccine (3+ yrs) 00:00:00 [facility] Influenza Virus 2016-11-10 Completed Universit y of Vaccine (3+ yrs) 00:00:00 [facility] Influenza Virus 2016-11-10 Completed Universit y of Vaccine (3+ yrs) 00:00:00 [facility] Influenza Virus 2016-11-10 Completed Universit y of Vaccine (3+ yrs) 00:00:00 [facility] Influenza Virus 2016-11-10 Completed Universit y of Vaccine (3+ yrs) 00:00:00 [facility] Influenza Virus 2016-11-10 Completed Universit y of Vaccine (3+ yrs) 00:00:00 [facility] Influenza Virus 2016-11-10 Completed Universit y of Vaccine (3+ yrs) 00:00:00 [facility] Influenza Virus 2016-11-10 Completed Universit y of Vaccine (3+ yrs) 00:00:00 [facility] Influenza Virus 2016-11-10 Completed Universit y of Vaccine (3+ yrs) 00:00:00 [facility] Influenza Virus 2016-11-10 Completed Universit y of Vaccine (3+ yrs) 00:00:00 [facility] Influenza Virus 2016-11-10 Completed Universit y of Vaccine (3+ yrs) 00:00:00 [facility] Influenza Virus 2016-11-10 Completed Universit y of Vaccine (3+ yrs) 00:00:00 [facility] Influenza Virus 2016-11-10 Completed Universit y of Vaccine (3+ yrs) 00:00:00 [facility] Influenza Virus 2016-11-10 Completed Universit y of Vaccine (3+ yrs) 00:00:00 [facility] Influenza Virus 2016-11-10 Completed Universit y of Vaccine (3+ yrs) 00:00:00 [facility] Influenza Virus 2016-11-10 Completed Universit y of Vaccine (3+ yrs) 00:00:00 [facility] Influenza Virus 2016-11-10 Completed Universit y of Vaccine (3+ yrs) 00:00:00 [facility] Influenza Virus 2016-11-10 Completed Universit y of Vaccine (3+ yrs) 00:00:00 [facility] Influenza Virus 2016-11-10 Completed Universit y of Vaccine (3+ yrs) 00:00:00 [facility] Influenza Virus 2016-11-10 Completed Universit y of Vaccine (3+ yrs) 00:00:00 [facility] Influenza Virus 2016-11-10 Completed Universit y of Vaccine (3+ yrs) 00:00:00 [facility] Influenza Virus 2016-11-10 Completed Universit y of Vaccine (3+ yrs) 00:00:00 [facility] Influenza Virus 2016-11-10 Completed Universit y of Vaccine (3+ yrs) 00:00:00 [facility] Influenza Virus 2016-11-10 Completed Universit y of Vaccine (3+ yrs) 00:00:00 [facility] Influenza Virus 2016-11-10 Completed Universit y of Vaccine (3+ yrs) 00:00:00 [facility] Influenza Virus 2016-11-10 Completed Universit y of Vaccine (3+ yrs) 00:00:00 [facility] Influenza Virus 2016-11-10 Completed Universit y of Vaccine (3+ yrs) 00:00:00 [facility] Influenza Virus 2016-11-10 Completed Universit y of Vaccine (3+ yrs) 00:00:00 [facility] Influenza Virus 2016-11-10 Completed Universit y of Vaccine (3+ yrs) 00:00:00 [facility] Influenza Virus 2016-11-10 Completed Universit y of Vaccine (3+ yrs) 00:00:00 [facility] Influenza Virus 2016-11-10 Completed Universit y of Vaccine (3+ yrs) 00:00:00 [facility] Influenza Virus 2016-11-10 Completed Universit y of Vaccine (3+ yrs) 00:00:00 [facility] Influenza Virus 2016-11-10 Completed Universit y of Vaccine (3+ yrs) 00:00:00 [facility] Influenza Virus 2016-11-10 Completed Universit y of Vaccine (3+ yrs) 00:00:00 [facility] Influenza Virus 2016-11-10 Completed Universit y of Vaccine (3+ yrs) 00:00:00 [facility] Influenza Virus 2016-11-10 Completed Universit y of Vaccine (3+ yrs) 00:00:00 [facility] Influenza Virus 2016-11-10 Completed Universit y of Vaccine (3+ yrs) 00:00:00 [facility] Influenza Virus 2016-11-10 Completed Universit y of Vaccine (3+ yrs) 00:00:00 [facility] Influenza Virus 2016-11-10 Completed Universit y of Vaccine (3+ yrs) 00:00:00 [facility] Influenza Virus 2016-11-10 Completed Universit y of Vaccine (3+ yrs) 00:00:00 [facility] Influenza Virus 2016-11-10 Completed Universit y of Vaccine (3+ yrs) 00:00:00 [facility] Influenza Virus 2016-11-10 Completed Universit y of Vaccine (3+ yrs) 00:00:00 [facility] Influenza Virus 2016-11-10 Completed Universit y of Vaccine (3+ yrs) 00:00:00 [facility] Influenza Virus 2016-11-10 Completed Universit y of Vaccine (3+ yrs) 00:00:00 [facility] Influenza Virus 2016-11-10 Completed Universit y of Vaccine (3+ yrs) 00:00:00 [facility] Influenza Virus 2016-11-10 Completed Universit y of Vaccine (3+ yrs) 00:00:00 [facility] Influenza Virus 2016-11-10 Completed Universit y of Vaccine (3+ yrs) 00:00:00 [facility] Influenza Virus 2016-11-10 Completed Universit y of Vaccine (3+ yrs) 00:00:00 [facility] Influenza Virus 2016-11-10 Completed Universit y of Vaccine (3+ yrs) 00:00:00 [facility] Influenza Virus 2016-11-10 Completed Universit y of Vaccine (3+ yrs) 00:00:00 [facility] Influenza Virus 2016-11-10 Completed Universit y of Vaccine (3+ yrs) 00:00:00 [facility] Influenza Virus 2016-11-10 Completed Universit y of Vaccine (3+ yrs) 00:00:00 [facility] Influenza Virus 2016-11-10 Completed Universit y of Vaccine (3+ yrs) 00:00:00 [facility] Influenza Virus 2016-11-10 Completed Universit y of Vaccine (3+ yrs) 00:00:00 [facility] Influenza Virus 2016-11-10 Completed Universit y of Vaccine (3+ yrs) 00:00:00 [facility] Influenza Virus 2016-11-10 Completed Universit y of Vaccine (3+ yrs) 00:00:00 [facility] Influenza Virus 2016-11-10 Completed Universit y of Vaccine (3+ yrs) 00:00:00 [facility] Influenza Virus 2016-11-10 Completed Universit y of Vaccine (3+ yrs) 00:00:00 [facility] Influenza Virus 2016-11-10 Completed Universit y of Vaccine (3+ yrs) 00:00:00 [facility] Influenza Virus 2016-11-10 Completed Universit y of Vaccine (3+ yrs) 00:00:00 [facility] Influenza Virus 2016-11-10 Completed Universit y of Vaccine (3+ yrs) 00:00:00 [facility] Influenza Virus 2016-11-10 Completed Universit y of Vaccine (3+ yrs) 00:00:00 [facility] Influenza Virus 2016-11-10 Completed [facility]it y of Vaccine (3+ yrs) 00:00:00 [facility] Influenza Virus 2016-11-10 Completed Universit y of Vaccine (3+ yrs) 00:00:00 [facility] Influenza Virus 2016-11-10 Completed Universit y of Vaccine (3+ yrs) 00:00:00 [facility] Influenza Virus 2016-11-10 Completed Universit y of Vaccine (3+ yrs) 00:00:00 [facility] Influenza Virus 2016-11-10 Completed Universit y of Vaccine (3+ yrs) 00:00:00 [facility] Influenza Virus 2016-11-10 Completed Universit y of Vaccine (3+ yrs) 00:00:00 [facility] Influenza Virus 2016-11-10 Completed Universit y of Vaccine (3+ yrs) 00:00:00 [facility] Pneumococcal 2014-04-13 Completed University o f Polysaccharide, [...] blood 2022-03-02 21:31:00 138 mm[Hg] Univer sity [facility] Diastolic blood 2022-03-02 21:31:00 60 mm[Hg] Unive rsity [facility] Body temperature 2022-03-02 21:31:00 36.56 Lily [facility] Body height 2022-03-02 21:31:00 182.9 cm [facility] Body weight 2022-03-02 21:31:00 156.672 kg [facility] BMI 2022-03-02 21:31:00 46.84 kg/m2 [facility] Oxygen saturation in 2022-03-02 21:31:00 93 /min [facility] Arterial blood by [facility] Pulse oximetry Branch Systolic blood 2022-02-22 16:00:00 155 mm[Hg] Univer [facility]ity of [facility] Diastolic blood 2022-02-22 16:00:00 78 mm[Hg] Unive rsity [facility] Heart rate 2022-02-22 15:52:00 80 /min [facility] Body height 2022-02-22 15:52:00 177.8 cm [facility] Body weight 2022-02-22 15:52:00 154.223 kg [facility] BMI 2022-02-22 15:52:00 48.78 kg/m2 [facility] Systolic blood 2022-02-06 17:17:00 114 mm[Hg] Univer sity of [facility] Diastolic blood 2022-02-06 17:17:00 57 mm[Hg] Unive rsity of [facility] Heart rate 2022-02-06 17:17:00 40 /min [facility] Body temperature 2022-02-06 17:17:00 36.89 Lily [facility] Body height 2022-02-06 17:17:00 177.8 cm [facility] Body weight 2022-02-06 17:17:00 155.584 kg [facility] BMI 2022-02-06 17:17:00 49.22 kg/m2 [facility] Systolic blood 2022-02-01 16:42:00 145 mm[Hg] Univer sity of [facility] Diastolic blood 2022-02-01 16:42:00 83 mm[Hg] Unive rsity of [facility] Heart rate 2022-02-01 16:41:00 80 /min [facility] Body temperature 2022-02-01 16:41:00 37.33 Lily [facility] Body weight 2022-02-01 16:41:00 155.584 kg [facility] BMI 2022-02-01 16:41:00 46.52 kg/m2 [facility] Systolic blood 2022-01-27 02:30:00 178 mm[Hg] Univer sity of [facility] Diastolic blood 2022-01-27 02:30:00 95 mm[Hg] Unive rsity of [facility] Heart rate 2022-01-27 02:30:00 79 /min [facility] Respiratory rate 2022-01-27 02:30:00 21 /min [facility] Oxygen saturation in 2022-01-27 02:30:00 94 /min [facility] of Arterial blood by [facility] Pulse oximetry Branch Body temperature 2022-01-27 01:10:00 36.5 Lily [facility] Body height 2022-01-27 01:10:00 182.9 cm [facility] Body weight 2022-01-27 01:10:00 158.759 kg [facility] BMI 2022-01-27 01:10:00 47.47 kg/m2 [facility] Systolic blood 2022-01-05 14:49:00 141 mm[Hg] Univer sity of [facility] Diastolic blood 2022-01-05 14:49:00 77 mm[Hg] Unive rsity of [facility] Heart rate 2022-01-05 14:49:00 81 /min [facility] Body temperature 2022-01-05 14:46:00 36.44 Lily [facility] Body height 2022-01-05 14:46:00 182.9 cm [facility] Body weight 2022-01-05 14:46:00 154.541 kg [facility] BMI 2022-01-05 14:46:00 46.21 kg/m2 [facility] Oxygen saturation in 2022-01-05 14:46:00 93 /min [facility] of Arterial blood by [facility] Pulse oximetry Branch Systolic blood 2021-12-08 19:17:00 146 mm[Hg] Univer sity of pressure [facility] Diastolic blood 2021-12-08 19:17:00 66 mm[Hg] Unive rsity of pressure [facility] Heart rate 2021-12-08 19:17:00 77 /min [facility] Body height 2021-12-08 19:17:00 182.9 cm [facility] Body weight 2021-12-08 19:17:00 155.402 kg [facility] BMI 2021-12-08 19:17:00 46.46 kg/m2 [facility] [place] [facility] Oxygen saturation in 2021-12-08 19:17:00 92 /min University of Arterial blood by [facility] Pulse oximetry Branch Systolic blood 2021-12-01 15:11:00 145 mm[Hg] Univer sity of pressure [facility] Diastolic blood 2021-12-01 15:11:00 75 mm[Hg] Unive rsity of pressure [facility] Heart rate 2021-12-01 15:11:00 58 /min [facility] Body temperature 2021-12-01 15:11:00 36 Lily Univ ersity [facility] Respiratory rate 2021-12-01 15:11:00 19 /min Univ ersity [facility] Body height 2021-12-01 15:11:00 182.9 cm [facility] Body weight 2021-12-01 15:11:00 154.087 kg [facility] BMI 2021-12-01 15:11:00 46.07 kg/m2 [facility] Oxygen saturation in 2021-12-01 15:11:00 93 /min University of Arterial blood by [facility] Pulse oximetry Branch Systolic blood 2021-11-25 05:01:00 138 mm[Hg] Univer sity of pressure [facility] Diastolic blood 2021-11-25 05:01:00 63 mm[Hg] Unive rsity of pressure [facility] Heart rate 2021-11-25 05:01:00 86 /min [facility] Respiratory rate 2021-11-25 05:01:00 19 /min Univ ersity [facility] Oxygen saturation in 2021-11-25 05:01:00 94 /min University of Arterial blood by [facility] Pulse oximetry Branch Body temperature 2021-11-25 01:27:00 36.44 Lily Univ [facility] Body height 2021-11-25 01:27:00 182.9 cm [facility] Body weight 2021-11-25 01:27:00 150.141 kg [facility] BMI 2021-11-25 01:27:00 44.89 kg/m2 [facility] Systolic blood 2021-11-24 15:13:00 167 mm[Hg] Univer sity of pressure [facility] Diastolic blood 2021-11-24 15:13:00 102 mm[Hg] Unive rsity of pressure [facility] Heart rate 2021-11-24 15:09:00 80 /min [facility] Body temperature 2021-11-24 15:09:00 36.39 Lily [facility] Body height 2021-11-24 15:09:00 182[facility]9 cm [facility] Body weight 2021-11-24 15:09:00 150.277 kg [facility] BMI 2021-11-24 15:09:00 44.93 kg/m2 [facility] Oxygen saturation in 2021-11-24 15:09:00 97 /min [facility] Arterial blood by [facility] Pulse oximetry Branch Body weight 2020-12-24 13:33:00 161.5 kg [facility] BMI 2020-12-24 13:33:00 48.29 kg/m2 [facility] Systolic blood 2022-08-09 18:16:00 142 mm[Hg] [facility] pressure Diastolic blood 2022-08-09 18:16:00 64 mm[Hg] [facility] pressure Heart rate 2022-08-09 18:16:00 79 /min [facility] Body height 2022-08-09 18:16:00 182.9 cm [facility] Body weight 2022-08-09 18:16:00 159.303 kg [facility] BMI 2022-08-09 18:16:00 47.63 kg/m2 [facility] Procedures Procedure Date / Time Performing Clinician Source Performed CBC WITH PLATELET AND 2022-08-10 14:49:00 Janay Yi [facility] DIFFERENTIAL COMPREHENSIVE METABOLIC 2022-08-10 14:49:00 Janay Yi [facility] PANEL B NATRIURETIC PEPTIDE 2022-08-10 14:49:00 Janay Yi [facility] LIPID PANEL 2022-08-10 14:49:00 Janay Yi spital TTE COMPLETE, W 2022-08-09 17:10:00 Ahmed, Waleed [facility] CONTRAST, W DOPPLER ([id number]) ECG 12-LEAD 2022-07-31 20:03:43 Janay Yi spital AUTHORIZATION FOR 2022-07-20 05:01:00 Doctor Unassigned, No [facility]I Name Medical Branch AUTHORIZATION FOR 2022-04-15 06:01:00 Doctor Unassigned, No [facility] RELEASE OF PHI Name Medical Branch AUTHORIZATION FOR 2022-03-14 06:01:00 Doctor Unassigned, No [facility] RELEASE OF PHI Name Medical Branch BASIC METABOLIC PANEL 2022-02-22 15:13:00 Woody, Sendil [facility]. [facility] (NA, K, CL, CO2, Medical Branch GLUCOSE, BUN, CREATININE, CA) PROTHROMBIN TIME / INR 2022-02-22 15:13:00 Annalise [facility] N-[facility]MINAL PRO-BNP 2022-02-22 15:13:00 Annalise [facility] POCT SARS-COV-2 ANTIGEN 2022-02-01 00:00:00 Jose Juan Gonsalez [facility] (BINAX NOW) Medical Branch MAGNESIUM 2022-01-27 01:20:00 Kash [facility] TROPONIN I 2022-01-27 01:20:00 Kash [facility] COMP. METABOLIC PANEL 2022-01-27 01:20:00 Jessica Hewitt [facility] ([id number]) [facility] CBC WITH DIFF 2022-01-27 01:20:00 Kash [facility] N-TERMINAL PRO-BNP 2022-01-27 01:20:00 Jessica Hewitt [facility] CONSENT/REFUSAL FOR 2022-01-27 01:01:28 Doctor Unassigned, No [facility] AND TREATMENT Name [facility] PROTHROMBIN TIME / INR 2022-01-26 19:21:00 Joon Woody [facility] CERVICAL SPINE WO 2022-01-26 19:01:00 Requisition, Paper [facility] POCT HEMOGLOBIN A1C TEST 2021-12-08 20:05:00 Gera Freeman [facility] MAGNESIUM 2021-12-01 15:53:00 Joon Woody [facility] COMP. METABOLIC PANEL 2021-12-01 15:53:00 Joon Woody [facility] ([id number]) [facility] LIPID PANEL 2021-12-01 15:53:00 Joon Woody [facility] ([id number])(TOTAL [facility] Branch CHOLESTEROL, TRIGLYCERIDES, HDL) CBC WITH DIFF 2021-12-01 15:53:00 Joon Woody.Lamberto. [facility] PROTHROMBIN TIME / INR 2021-12-01 15:53:00 Joon Woody [facility] N-TERMINAL PRO-BNP 2021-12-01 15:53:00 Joon Wood[facility] MAGNESIUM 2021-11-25 01:49:00 Val Love [facility] TROPONIN I 2021-11-25 01:49:00 Val Love [facility] COMP. METABOLIC PANEL 2021-11-25 01:49:00 Val Love [facility] ([id number]) [facility] CBC WITH DIFF 2021-11-25 01:49:00 Val Love [facility] PROTHROMBIN TIME / INR 2021-11-25 01:49:00 Val Love [facility] CONSENT/REFUSAL FOR 2021-11-25 01:15:35 Doctor Unassigned, No Un [facility] DIAGNOSIS AND TREATMENT Name [facility] Plan of Care Planned Activity Planned Date Details Comments Source Future Scheduled 2022-08-22 [facility] Test 12:07:45 malignant neoplasm of colon (procedure) [code = 602259030] Future Scheduled 2022-08-22 [facility] Test 12:07:45 malignant neoplasm of colon (procedure) [code = 635756479] Future Scheduled 2022-08-22 [facility] Test 12:07:45 malignant neoplasm of colon (procedure) [code = 336716286] Future Scheduled 2022-08-22 Hepatitis C screening [facility] Test 12:07:45 (procedure) [code = 575891948] Future Scheduled 2022-08-22 Screening for [facility] Test 12:07:45 malignant neoplasm of colon (procedure) [code = 237887025] Future Scheduled 2022-08-22 Screening for [facility] Test 12:07:45 malignant neoplasm of colon (procedure) [code = 659615099] Future Scheduled 2022-08-22 SHINGLES VACCINES (1 [facility] Test 12:07:45 of 2) [code = SHINGLES VACCINES (1 of 2)] Future Scheduled 2022-08-22 HEPATITIS B VACCINES [facility] Test 12:07:45 (3 of 3 - Hep B Twinrix risk 3-dose series) [code = HEPATITIS B VACCINES (3 of 3 - Hep B Twinrix risk 3-dose series)] Future Scheduled 2022-08-22 65+ [facility]CCAL [facility] 12:07:45 VACCINE (3 - PPSV23 if available, else PCV20) [code = 65+ PNEUMOCOCCAL VACCINE (3 - PPSV23 if available, else PCV20)] Future Scheduled 2022-08-22 COVID-19 VACCINE (4 - [facility] Test 12:07:45 Moderna series) [code = COVID-19 VACCINE (4 - Moderna series)] Future Scheduled 2022-08-22 INFLUENZA VACCINE [facility] Test 12:07:45 [code = INFLUENZA VACCINE] Future Scheduled 2022-07-10 COVID-19 VACCINE (#1) [facility] Test 11:11:20 [code = COVID-19 VACCINE (#1)] Future Scheduled 2022-07-10 Hepatitis C screening [facility] Test 11:11:20 (procedure) [code = 588610367] Future Scheduled 2022-07-10 COLONOSCOPY SCREENING [facility] Test 11:11:20 [code = COLONOSCOPY SCREENING] Future Scheduled 2022-07-10 SHINGLES VACCINES (1 [facility] Test 11:11:20 of 2) [code = SHINGLES VACCINES (1 of 2)] Future Scheduled 2022-07-10 65+ [facility]CCAL [facility] Test 11:11:20 VACCINE (1 - PCV) [code = 65+ PNEUMOCOCCAL VACCINE (1 - PCV)] Future Scheduled 2022-07-10 INFLUENZA VACCINE Method is Hospital Test 11:11:20 [code = INFLUENZA VACCINE] Future Scheduled 2022-06-27 COVID-19 VACCINE (#1) Me [facility] Test 15:22:05 [code = COVID-19 VACCINE (#1)] Future Scheduled 2022-06-27 Hepatitis C screening [facility] Test 15:22:05 (procedure) [code = 154930312] Future Scheduled 2022-06-27 COLONOSCOPY SCREENING [facility] Test 15:22:05 [code = COLONOSCOPY SCREENING] Future Scheduled 2022-06-27 SHINGLES VACCINES (1 [facility] Test 15:22:05 of 2) [code = SHINGLES VACCINES (1 of 2)] Future Scheduled 2022-06-27 65+ PNEUMOCOCCAL Methodi [facility] Test 15:22:05 VACCINE (1 - PCV) [code = 65+ PNEUMOCOCCAL VACCINE (1 - PCV)] Future Scheduled 2022-06-27 INFLUENZA VACCINE Method [facility] Test 15:22:05 [code = INFLUENZA VACCINE] Future Scheduled 2022-06-27 COVID-19 VACCINE (#1) [facility] Test 15:22:05 [code = COVID-19 VACCINE (#1)] Future Scheduled 2022-06-27 Hepatitis C screening [facility] Test 15:22:05 (procedure) [code = 690980172] Future Scheduled 2022-06-27 COLONOSCOPY SCREENING [facility] Test 15:22:05 [code = COLONOSCOPY SCREENING] Future Scheduled 2022-06-27 SHINGLES VACCINES (1 [facility] Test 15:22:05 of 2) [code = SHINGLES VACCINES (1 of 2)] Future Scheduled 2022-06-27 65+ PNEUMOCOCCAL Methodi Hospital Test 15:22:05 VACCINE (1 - PCV) [code = 65+ PNEUMOCOCCAL VACCINE (1 - PCV)] Future Scheduled 2022-06-27 INFLUENZA VACCINE Method [facility] Test 15:22:05 [code = INFLUENZA VACCINE] Encounters Start End Encounter Admission Attending Care Care Encounter Source Date/Time Date/Time Type Type Clinicians Facility Department ID 2022-06-14 Outpatient FRANCE SEN [facility] [id number] Common 17:01:00 NEHA [id number] [facility] 2021-01-10 Emergency [facility] [id number] Univers 15:32:35 [facility] 2021-01-10 Emergency [facility] [id number] Univers 13:50:35 [facility] 2022-09-14 2022-09-14 Outpatient Florence WOODY [facility] [id number] Univers 15:30:00 15:30:00 SENDIL [facility] 2022-08-22 2022-08-22 Telephone Citlaly, 1.2.840.1 [id number] Methodi 00:00:00 00:00:[address] 3.430.2.7 Hospit a .3.738867 l .8 2022-08-21 2022-08-21 Telephone Rashaad, 1.2.840.1 [id number] [id number] Methodi 00:00:00 00:00:[address] 3.430.2.7 Hospit a .3.441936 l .8 2022-08-21 2022-08-21 Telephone Rashaad, 1.2.840.1 [id number] Methodi 00:00:00 00:00:[address] 3.430.2.7 Hospit a .3.094160 l .8 2022-08-21 2022-08-21 Telephone Kassidy 1.2.840.1 [id number] 2100 [id number] Methodi 00:00:00 00:00:[address] 3.430.2.7 Hospit a .3.058766 l .8 2022-08-09 2022-08-09 Office Jose Antonio Aguayo 1.2.840.1 [id number] Methodi 13:00:00 14:28:11 Visit Vanesa 84898.1.[address] 3.430.2.7 Hospit a .3.760816 l .8 2022-08-09 2022-08-09 Outpatient KASSIDY [facility] [id number] [facility] 00:00:00 00:00:[address] 2022-08-09 2022-08-09 Outpatient JOSE ANTONIO AGUAYO [facility] [id number] [facility] 00:00:00 00:00:[address] 2022-08-09 2022-08-09 Travel 1.2.840.1 1.2.914.556 1271 [id number] Methodi 00:00:00 00:00:[address] 3.430.2.7 0.2.7.3.698 Ho spita .3.024976 084.8 l .8 2022-07-31 2022-07-31 Office Kassidy, 1.2.840.1 [id number] Methodi 14:00:00 16:14:15 Visit Waleed 12123.1.[address] 3.430.2.7 Hospit a .3.139940 l .8 2022-07-31 2022-07-31 Outpatient KASSIDY, [facility] [id number] [facility] 00:00:00 00:00:[address] 2022-07-31 2022-07-31 Travel 1.2.840.1 1.2.783.447 7330 [id number] Methodi 00:00:00 00:00:[address] 3.430.2.7 0.2.7.3.698 Ho spita .3.660414 084.8 l .8 2022-07-27 2022-07-27 Mateo Gonsalez [facility] 1.2.840.114 [id number] [facility] 00:00:00 00:00:00 [facility] 350.1.13.10 it y of [place] 4.2.7.2.686 Oren as OLIVIER?BLEA [phone] [address] MEDICAL OFFICE BUILDING 2022-07-25 2022-07-25 Nery Rubin 2.16.840. 2.16.840.1. [facility] [id number] Devoted 13:30:00 14:00:00 OnDefelicity Erwin 1.500677. 228923.4.6. 2R5 Medical 4.6.06185 [id number] 2022-07-20 2022-07-20 Orders Doctor TOO 1.2.840.114 [id number] Univers 00:00:00 00:00:00 Only Unassigned, CADE 350.1.13.10 ity of [place] [facility] 4.2.7.2.686 Oren as [phone] [facility] 009 Branch 2022-07-15 2022-07-15 Outpatient Ogbechie_L DMG DM [id number] [id number] Devoted 00:00:00 00:00:00 [id number] Medica l Group 2022-07-07 2022-07-07 OSVALDO Visit Sandra 2.16.840. 2.16.840.1. CL [id number] [facility]oted 15:30:00 16:30:00 Caccamise 1.514246. 587810.4.6. 7JF Medical 4.6.83921 [id number] 2022-06-26 2022-06-26 [facility] 1.2.840.114 [id number] Univers 00:00:00 00:00:00 Luis [place] 350.1.13.10 i ty [place] [phone] De dical NAL [address] [place] [address] 2022-06-21 2022-06-21 [facility] 1.2.840.114 [id number] Univers 00:00:00 00:00:00 Sendil BeckieHMaria A [place] 350.1.13.10 ity of [place] [phone] De dical NAL [address] [place] [address] 2022-06-15 2022-06-15 Telephone Kassidy, 1.2.840.1 [id number] 2100 [id number] Methodi 00:00:00 00:00:[address] 3.430.2.7 Hospit a .3.961897 l .8 2022-06-15 2022-06-15 Transcribe Quang, 1.2.840.1 [id number] [id number] Methodi 00:00:00 00:00:00 Orders Jackie 14551.1.[address] 3.430.2.7 Hospit a .3.048889 l .8 2022-06-15 2022-06-15 Transcribe Quang, 1.2.840.1 [id number] [id number] Methodi 00:00:00 00:00:00 Orders Jackie [address]97.1.[address] 3.430.2.7 Hospit a .3.973088 l .8 2022-06-15 2022-06-15 Telephone Kassidy, 1.2.840.1 [id number] 2100 [id number] Methodi 00:00:00 00:00:[address] 3.430.2.7 Hospit a .3.593634 l .8 2022-06-15 2022-06-15 Transcribe Quang, 1.2.840.1 [id number] [id number] Methodi 00:00:00 00:00:00 Orders Jackie 24278.1.[address] 3.430.2.7 Hospit a .3.895466 l .8 2022-06-15 2022-06-15 Transcribe Quang, 1.2.840.1 [id number] Methodi 00:00:00 00:00:00 Orders Jackie 71890.1.[address] 3.430.2.7 Hospit a .3.564073 l .8 2022-06-12 2022-06-12 Mateo Gonsalez PRCLARIBEL 1.2.840.114 [id number] Univers 00:00:00 00:00:00 [facility] 350.1.13.10 it [place] of [place] 4.2.7.2.686 Oren as OLIVIER?BLEA [phone] [address] MEDICAL OFFICE BUILDING 2022-06-12 2022-06-12 Telephone Jose Antonio Aguayo 1.2.840.1 [id number] Methodi 00:00:00 00:00:[address] 3.430.2.7 Hospit a .3.156944 l .8 2022-06-12 2022-06-12 Telephone Jose Antonio Aguayo 1.2.840.1 [id number] Methodi 00:00:00 00:00:[address] 3.430.2.7 Hospit a .3.576031 l .8 2022-06-08 2022-06-08 [facility] 1.2.840.114 [id number] Univers 00:00:00 00:00:00 [facility] 350.1.13.10 it y of [place] 4.2.7.2.686 Oren as OLIVIER?BLEA [phone] [address] OFFICE [facility] 2022-05-29 2022-05-29 Refill [facility] 1.2.840.114 [id number] Univers 00:00:00 00:00:00 [facility] 350.1.13.10 it y of [place] 4.2.7.2.686 Oren as OLIVIER?BLEA [phone] [address] OFFICE [facility] 2022-05-26 2022-05-26 [facility] 1.2.840.114 [id number] Univers 00:00:00 00:00:00 [facility]oon [facility] 350.1.13.10 ity of [place] [phone] [facility] 059 [facility] 2022-05-26 2022-05-[facility] 1.2.840.114 [id number] Univers 00:00:00 00:00:00 [facility] 350.1.13.10 it y of [place] 4.2.7.2.686 Oren as OLIVIER?BLEA [phone] [address] OFFICE [facility] 2022-05-05 2022-05-05 [facility] 1.2.840.114 [id number] Univers 00:00:00 00:00:00 [facility] 350.1.13.10 it [place] of [place] [facility] 4.2.7.2.686 Oren as OLIVIER?BLEA [phone] [facility] [address] [place] MEDICAL OFFICE [facility] 2022-04-17 2022-04-17 Telephone [facility] 1.2.840.114 [id number] Univers 00:00:00 00:00:00 [facility] 350.1.13.10 it [place] of [place] [facility] 4.2.7.2.686 Oren as OLIVIER?BLEA [phone] [address] OFFICE [facility] 2022-04-15 2022-04-15 Orders Doctor TOO 1.2.840.114 [id number] Univers 00:00:00 00:00:00 Only Unassigned, CADE 350.1.13.[address] [facility] 4.2.7.2.686 Oren as [phone] [address] 2022-04-14 2022-04-14 Outpatient Ogbechie_L DMG DMG 1337 [id number] Devoted 00:00:00 00:00:00 52897 Medica l Group 2022-04-11 2022-04-11 Telephone [facility] 1.2.840.114 [id number] Univers 00:00:00 00:00:00 [facility] 350.1.13.10 ity of [facility] 4.2.7.2.686 Oren as OLIVIER?BLEA [phone] [facility] [address] [place] MEDICAL OFFICE [facility] 2022-04-10 2022-04-10 Outpatient R [facility] [id number] Univers 00:00:00 23:59:00 CATIE HILL ity of [facility] 2022-04-10 2022-04-10 [facility] JEFF [place] 1.2.840.114 [id number] Univers 00:00:00 23:59:00 Encounter Estefanía REZAY 350.1.13.10 ity of [facility] 4.2.7.2.686 Oren as [phone] [facility] [address] [place] 2022-04-07 2022-04-07 [facility] 1.2.840.114 [id number] Univers 00:00:00 00:00:00 [facility] 350.1.13.10 ity of [place] 4.2.7.2.686 Oren as OLIVIER?BLEA [phone] De selinaut PAPA [address] [place] MEDICAL OFFICE [facility] 2022-03-31 2022-03-31 Outpatient R [facility] [id number] Univers 10:40:00 10:40:00 LUIS ity [facility] 2022-03-31 2022-03-31 Outpatient [facility] [id number] Univers 09:40:00 09:40:00 LUIS ity [facility] 2022-03-31 2022-03-31 Outpatient [email or web address] [id number] Univers 09:40:00 09:40:00 LUIS ity [facility] 2022-03-29 2022-03-29 [facility] 1.2.840.114 [id number] Univers 00:00:00 00:00:00 [facility]oon [facility] 350.1.13.10 ity of [place] [phone] De [place]ut EMMANUELLE 059 [facility] 2022-03-28 2022-03-28 [facility] 1.2.840.114 [id number] Univers 00:00:00 00:00:00 [facility] 350.1.13.10 it y of [place] [facility] 4.2.7.2.686 Oren as OLIVIER?BLEA [phone] De selinamaryellen NICOLEGUERLINE [address] [place] MEDICAL OFFICE [facility] 2022-03-25 2022-03-25 [facility] 1.2.840.114 [id number] Univers 00:00:00 00:00:00 [facility] 350.1.13.10 it y of [place] 4.2.7.2.686 Oren as OLIVIER?BLEA [phone] De paulette RIVER[address] MEDICAL OFFICE [facility] 2022-03-24 2022-03-24 Outpatient R ANNALISE [facility] [id number] Univers 09:00:00 09:00:00 SENDIL ity of [facility] 2022-03-17 2022-03-17 Telephone [facility] 1.2.840.114 [id number] Univers 00:00:00 00:00:00 [facility] 350.1.13.10 it y of [place] [facility] 4.2.7.2.686 Oren as OLIVIER?BLEA [phone] [address] MEDICAL OFFICE [facility] 2022-03-14 2022-03-14 Orders Doctor TOO 1.2.840.114 [id number] Univers 00:00:00 00:00:00 Only Unassigned, CADE 350.1.13.10 ity of [place] [facility] 4.2.7.2.686 Oren as [phone] [address] 2022-03-11 2022-03-11 Refill [facility] 1.2.840.114 [id number] Univers 00:00:00 00:00:00 Joon HANDY 350.1.13.10 ity [facility] 4.[place] [phone] De dical NAL 059 [facility] 2022-03-10 2022-03-10 Computer Assembler 2, Adc Lab [facility] 1.2.840.114 [id number] Univers 10:15:00 10:30:00 Visit Joon Woody 350.1.13. 10 ity [facility] 4.[place] [phone] De dical NAL 353 [facility] 2022-03-10 2022-03-10 Outpatient R ANNALISE [facility] [id number] Univers 10:15:00 10:15:00 SENDIL itapril of [facility] 2022-03-02 2022-03-02 Outpatient R [facility] [id number] Univers 15:30:00 16:02:47 SENDIL ity [facility] 2022-03-02 2022-03-02 [facility] 1.2.840.114 [id number] Univers 15:30:00 16:02:47 Visit Joon HANDY 350.1.13.10 ity of [place] [id number] [place] [id number] [facility] 2022-02-24 2022-02-24 Telephone Annalise [facility] [id number] Univers 00:00:00 00:00:00 Sendsissy HANDY 350.1.13.10 ity of [place] [id number] [facility] EMMANUELLE [address] [place] [address] 2022-02-23 2022-02-23 [facility] 1.2.840.114 [id number] Univers 14:40:00 14:50:00 Visit Joon HANDY 350.1.13.10 [place] [phone] [address] 2022-02-23 2022-02-23 Outpatient R [facility] [id number] Univers 14:40:00 14:40:00 SENDIL ity [facility] 2022-02-22 2022-02-22 Computer Assembler 2, [facility] 1.2.840.114 [id number] Univers 09:00:00 13:02:50 Visit Joon Woody 350.1.13. 10 ity of [place] [phone] [employer] 353 [facility] 2022-02-22 2022-02-22 Office [facility] 1.2.840.114 [id number] Univers 10:00:00 10:16:55 Visit [facility] 350.1.13.10 it y of [place] 4.2.7.2.686 Oren as OLIVIER?BLEA [phone] De dicmaryellen ELAM [address] [place] MEDICAL OFFICE [facility] 2022-02-22 2022-02-22 Outpatient R SUNSHINE [facility] [id number] Univers 10:00:00 10:00:00 JOSE JUAN ity [facility] 2022-02-22 2022-02-22 [facility]ani [facility] 1.2.840.114 [id number] Univers 00:00:00 00:00:00 [facility] 350.1.13.10 it y of [place] 4.2.7.2.686 Oren as OLIVIER?BLEA [phone] De dicmaryellen ELAM 044 [facility] OFFICE [facility] 2022-02-22 2022-02-22 [facility]ittani [facility] 1.2.840.114 [id number] Univers 00:00:00 00:00:00 [facility] 350.1.13.10 ity of [place] 4.2.7.2.686 Oren as OLIVIER?BLEA [phone] De dicmaryellen ELAM 092 [facility] OFFICE [facility] 2022-02-14 2022-02-14 Outpatient R ANNALISE [facility] [id number] Univers 15:00:00 17:08:32 JOON goetz [facility] 2022-02-14 2022-02-14 Office [facility] 1.2.840.114 [id number] Univers 15:00:00 17:08:32 Visit Joon HANDY 350.1.13.10 ity [facility] [place].2.[place] [id number] De dicmaryellen NAL 059 [facility] 2022-02-14 2022-02-14 Telephone TOO Woody 1.2.862.781 [id number] Univers 00:00:00 00:00:00 Joon MOHAMUD 350.1.13.10 ity of [facility] 4.2.7.2.686 Oren as [phone] [address] 2022-02-10 2022-02-10 Computer Assembler 2, Adc Lab [facility] 1.2.840.114 [id number] Univers 10:30:00 10:45:00 Visit Joon Woody 350.1.13. 10 ity of [place] [phone] [facility] EMMANUELLE 353 [facility] 2022-02-10 2022-02-10 [facility] [id number] Univers 10:30:00 10:30:00 [facility] 2022-[facility]-08 2022-02-08 [facility] 1.2.840.114 [id number] Univers 00:00:00 00:00:00 Joon HANDY 350.1.13.10 ity [facility] 4.2.[place].2.[place] [phone] [address] 2022-02-06 2022-02-06 Out[facility] [id number] Univers 11:37:54 23:59:00 JOSE JUAN ity [facility] 2022-02-06 2022-02-06 Office [facility] 1.2.840.114 [id number] Univers 11:15:00 11:30:00 Visit [facility] 350.1.13.10 it y of [place] [facility] 4.2.7.2.686 Oren as OLIVIER?BLEA [phone] [address] OFFICE [facility] 2022-02-06 2022-02-06 [facility] 1.2.840.114 [id number] Univers 00:00:00 00:00:00 Joon HANDY 350.1.13.10 ity of [place] [phone] De dicut NAL 059 [facility] 2022-02-01 2022-02-01 Office [facility] 1.2.840.114 [id number] Univers 11:00:00 11:24:25 Visit [facility] 350.1.13.10 it y of [place] 4.2.7.2.686 Oren as OLIVIER?BLEA [phone] [address] OFFICE [facility] 2022-02-01 2022-02-01 Outpatient R SUNSHINE, [facility] [id number] Univers 11:00:00 11:00:00 JOSE JUAN ity [facility] 2022-01-30 2022-01-30 Office [facility] 1.2.840.114 [id number] Univers 15:30:00 15:30:00 Visit Sendil Lauren HANDY 350.1.13.10 ity of [place] 4.2.7.2.[place] [phone] De dical NAL 9 [facility] 2022-01-30 2022-01-30 Out[facility] [id number] Univers 15:30:00 11:13:29 SENDIL ity [facility] 2022-01-29 2022-01-29 Refill [facility] 1.2.840.114 [id number] Univers 00:00:00 00:00:00 Sendsissy HANDY 350.1.13.10 ity of [place].2.[place] [phone] De dical NAL 9 [facility] 2022-01-26 2022-01-26 Emergency [place], [facility] 1.2.947.762 [id number] Univers 19:12:00 20:51:00 Jessica HANDY 350.1.13.10 i ty of [place] 4.2.7.2.[place] C[place] [phone] [facility] [address] [place] 2022-01-26 2022-01-26 Outpatient R RADIOLOGY [facility] [id number] Univers 12:37:52 19:11:00 ity of [facility] 2022-01-26 2022-01-26 Hospital Radiology [facility] 1.2.840.114 [id number] Univers 12:37:52 19:11:00 Ladonna HANDY 350.1.13.10 ity of [place].2.7.2.[place] [id number] [facility] [address] [place] 2022-01-26 2022-01-26 Computer Assembler 2, Adc Lab [facility] 1.2.840.114 [id number] Univers 13:15:00 13:30:00 Visit Joon oWody 350.1.13. 10 ity [facility] 4.2.[place].2.[place] [phone] De dical NAL 353 [facility] 2022-01-26 2022-01-26 Outpatient R RADIOLOGY [facility] ERT [id number] Univers 00:00:00 00:00:00 ity of [facility] 2022-01-26 2022-01-26 Telephone TOO Reinoso 1.2.915.455 [id number] [facility] 00:00:00 00:00:00 Fercho MOHAMUD 350.1.13.10 ity of [facility] 4.2.7.2.686 Oren as [phone] [address] 2022-01-26 2022-01-26 Telephone Annalise [facility] 1.2.616.504 [id number] Univers 00:00:00 00:00:00 Joon HANDY 350.1.13.10 ity of [place] [phone] De dical NAL 059 [facility] 2022-01-20 2022-01-20 Telephone Roman [facility] 1.2.440.041 [id number] 1789 [facility] 00:00:00 00:00:00 Gus HANDY 350.1.13.10 ity of [place] [id number] De dical NAL 059 [facility] 2022-01-19 2022-01-19 Computer Assembler 2, Adc Lab [facility] 1.2.840.114 [id number] Univers 13:15:00 13:30:00 Visit Gus Owens 350.1.13.10 ity of [place]2.[place].2.[place] [phone] De dical NAL 353 [facility] 2022-01-19 2022-01-19 Outpatient R ROMAN, [facility] [id number] Univers 13:15:00 13:15:00 GUS kingstony o f [facility] 2022-01-122022-01-12 Refill Sunshine [facility] 1.2.840.114 [id number] Univers 00:00:00 00:00:00 [facility] 350.1.13.10 it y of [place] 4.2.7.2.686 Oren as OLIVIER?BLEA [phone] Me paulette ELAM 044 [facility] OFFICE [facility] 2022-01-06 2022-01-06 Outpatient R ADITYA [facility] [id number] Univers 09:40:00 09:40:00 LUIS ity [facility] 2022-01-05 2022-01-05 Outpatient R ADITYA [facility] [id number] Univers 08:00:00 23:59:00 LUIS ity [facility] 2022-01-05 2022-01-05 Computer Assembler 2, Adc Lab [facility] 1.2.840.114 [id number] Univers 10:45:00 11:00:00 Visit LisablankaLuis OLE 350.1.13.10 ity of [facility] 4.2.7.2.[place] [phone] De paulette HANDLEY 353 [facility] 2022-01-05 2022-01-05 Office [facility] 1.2.840.114 [id number] Univers 09:40:00 10:41:23 Visit Luis HANDY 350.1.13.10 i ty of [place]2.[place].2.[place] [phone] De dicmaryellen NAL 059 [facility] 2022-01-05 2022-01-05 Telephone Roman [facility] 1.2.834.007 [id number] Univers 00:00:00 00:00:00 Jameyophelia HANDY 350.1.13.10 ity of [place].2.[place] [id number] De dical NAL 059 [facility] 2021-12-30 2021-12-30 Outpatient DMG DMG [id number] [employer] 00:00:00 00:00:00 [address] [facility] 2021-12-22 2021-12-22 Telephone Annalise [facility] 1.2.257.423 [id number] Univers 00:00:00 00:00:00 Sendil Lauren HANDY 350.1.13.10 ity [facility] 4.2.[place].2.[place] [id number] De dical NAL 059 [facility] 2021-12-21 2021-12-21 Computer Assembler 2, Adc Lab [facility] 1.2.840.114 [id number] Univers 10:00:00 10:37:48 Visit Joon Woody 350.1.13. 10 ity of [facility] 4.2.7.2.[place] [id number] De dical NAL 353 [facility] 2021-12-21 2021-12-21 Outpatient R ANNALISE [facility] [id number] Univers 10:00:00 10:00:00 [facility] 2021-12-08 2021-12-08 Office [facility] 1.2.840.114 [id number] Univers 14:30:00 15:00:00 Visit [facility] 350.1.13.10 i ty of [place].2.[place] C[place] - [phone] [address] 2021-12-08 2021-12-08 Outpatient R PETE [facility] [id number] Univers 14:30:00 14:30:00 GERA goetz [facility] 2021-12-01 2021-12-01 Computer Assembler 2, Adc Lab [facility] 1.2.840.114 [id number] Univers 10:45:00 10:55:17 Visit Joon Woody 350.1.13. 10 ity of [place].2.[place] [id number] De dical NAL 353 [facility] 2021-12-01 2021-12-01 Outpatient R ANNALISE [facility] [id number] Univers 10:00:00 10:41:44 SENDIL itapril [facility] 2021-12-01 2021-12-01 Office Annalise [facility] 1.2.840.114 [id number] Univers 10:00:00 10:41:44 Visit Joon HANDY 350.1.13.10 ity of [facility] 4.2.7.2.686 [place] [facility] [phone] [employer] [facility] 059 [facility] 2021-12-01 2021-12-01 Outpatient R ANNALISE [facility] [id number] Univers 10:00:00 10:00:00 SENDIL [facility] 2021-11-25 2021-11-25 Outpatient R GEOFFREY [facility] [id number] Univers 14:00:00 14:00:00 SCOTTIE [facility] 2021-11-24 2021-11-25 Emergency [facility] 1.2.840.114 [id number] Univers 20:21:00 01:33:00 Val HANDY 350.1.13.10 ity of [facility] 4.2.7.2.[place] [phone] [facility] [address] [place] 2021-11-25 2021-11-25 Telephone [facility] 1.2.720.040 [id number] Univers 00:00:00 00:00:00 Calvin Rawporter 350.1.13.10 ity of [place]2.[place] [phone] [facility] [address] [place] OFFICE BUILDING 2021-11-24 2021-11-24 Computer Assembler Simba, Clc-Bls Lab [facility] 1.2.8 40.114 [id number] Univers 11:30:00 11:45:00 Visit Mark Calvin Rawporter 350.1.13.10 ity of [place] 4[place]2.7.2.[place] [phone] [facility] [address] [place] OFFICE BUILDING 2021-11-24 2021-11-24 [facility] [id number] Univers 11:30:00 11:30:00 [facility]-11-24 2021-11-24 Office [facility] 1.2.840.114 [id number] Univers 10:00:00 10:40:00 Visit Calvin [facility] 350.1.13.10 ity of [place] 4.2.7.2.686 [place] [phone] [address] OFFICE BUILDING 2021-11-24 2021-11-24 Outpatient R [facility] [id number] Univers 10:00:00 10:00:00 ity [facility] 2021-11-24 2021-11-24 Outpatient [facility] [id number] Univers 10:00:00 10:00:00 CALVIN ity [facility] 2021-11-24 2021-11-24 Outpatient [facility] ERT [id number] Univers 10:00:00 10:00:00 CALVIN [facility] 2021-11-24 2021-11-24 Telephone Lorraine Galarza 1.2.840.114 [id number] Univers 00:00:00 00:00:00 WORONOCO 350.1.13.10 it y of [facility] 4.2.7.2.686 Oren as [phone] [address] 2021-11-23 2021-11-23 Office [facility] 1.2.840.114 [id number] Univers 15:15:00 15:30:00 Visit [facility] 350.1.13.10 it y of [place] [facility] 4.2.7.2.686 Oren as OLIVIER?BLEA [phone] De paulette [address] MEDICAL OFFICE BUILDING 2021-11-23 2021-11-23 [facility] [id number] Univers 15:15:00 15:15:00 JOSE JUAN [facility] 2021-11-22 2021-11-22 Outpatient R NINA [facility] [id number] Univers 13:30:00 13:30:00 HANNAH [facility] 2021-11-21 2021-11-21 Outpatient R GEOFFREY [facility] [id number] Univers 14:00:00 14:00:00 SCOTTIE [facility] 2021-11-11 2021-11-11 Outpatient R ANNALISE [facility] [id number] Univers 13:00:00 15:09:30 JOON ity [facility] 2021-11-11 2021-11-11 Office [facility] 1.2.840.114 [id number] Univers 13:00:00 15:09:30 Visit Joon HANDY 350.1.13.10 ity [facility] [place]2.7.2.[place] [id number] De dical NAL 059 [facility] 2021-11-11 2021-11-11 Outpatient R ADITYA [facility] [id number] Univers 08:20:00 08:20:00 LUIS ity [facility] 2021-11-10 2021-11-10 Computer Assembler 2, Adc Lab [facility] 1.2.840.114 [id number] Univers 13:15:00 13:30:00 Visit Joon Woody 350.1.13. 10 ity [facility] 4[place]2.7.2.[place] [phone] De dicmaryellen NAL 353 [facility] 2021-11-10 2021-11-10 Outpatient [facility] [id number] Univers 13:15:00 13:15:00 SENDIL [facility] 2021-11-03 2021-11-03 Outpatient R [facility] [id number] Univers 09:20:00 09:20:00 ity [facility] 2021-10-28 2021-10-28 Outpatient R SUNSHINE [facility] [id number] Univers 14:00:00 14:00:00 JOSE JUAN [facility] 2021-10-24 2021-10-24 Outpatient R JUVENCIO LUNA [facility] [id number] Univers 11:20:00 12:02:42 JUVENCIO LUNA [facility] 2021-10-24 2021-10-24 Office Clara [facility] 1.2.840.114 [id number] Univers 11:20:00 12:02:42 Visit [facility] 350.1.13.10 ity [facility] 4.2.7.2.686 Oren as OLIVIER?BLEA [phone] De dical KNEY [address] [place] MEDICAL OFFICE BUILDING 2021-10-20 2021-10-20 Outpatient R MORGAN MAC [facility] [place] [id number] Univers 06:35:00 10:05:00 ity of [facility] 2021-10-20 2021-10-20 Hospital Morgan Mac [facility] 1.2.840.114 [id number] Univers 06:35:00 10:05:00 Encounter [facility] 350.1.13.10 ity of [place] 4.2.7.2.686 [facility] [phone] [address] ([facility]) 2021-10-20 2021-10-20 Surgery [facility] 1.2.259.457 [id number] Univers 08:00:00 09:00:00 [facility] SPECIALTY 350.1.13.10 ity of CARE 4.2.7.2.686 [facility] AT [phone] De paulette DIANA [address] [place] [address] 2021-10-17 2021-10-17 Computer Assembler 2, Adc Lab [facility] 1.2.840.114 [id number] Univers 15:30:00 15:45:00 Visit Luis Burgess 350.1.13.10 ity of [place] 4.2.7.[address] [place] [address] [phone] De selinamaryellen HANDLEY 353 [facility] 2021-10-17 2021-10-17 Outpatient R ADITYA [facility] [id number] Univers 15:30:00 15:30:00 LUIS ity of [facility] 2021-10-17 2021-10-17 Laboratory Only, Adc Test [facility] 1.2.840. 114 [id number] Univers 10:30:00 10:45:00 Only Wild Kamara 350.1.13.10 ity of [place] 4.2.7.2.686 [facility] [phone] [address] 2021-10-17 2021-10-17 Orders Doctor GAGE 1.2.840.114 [id number] Univers 00:00:00 00:00:00 Only UnassignedCADE 350.1.13.10 ity of [place] [facility] 4.2.7.2.686 Oren as [id number] [address] 2021-09-30 2021-09-30 Outpatient R ADITYA [facility] [id number] Univers 13:00:00 13:00:00 LUIS ity of [facility] 2021-09-28 2021-09-28 Telephone [facility] 1.2.114.011 [id number] Univers 00:00:00 00:00:00 Joon HANDY 350.1.13.10 ity of [place] [phone] [address] 2021-09-27 2021-09-27 Outpatient R NINA [facility] [id number] Univers 15:30:00 15:30:00 WENTDECATUR ity [facility] 2021-09-22 2021-09-22 [facility] 1.2.840.114 [id number] Univers 00:00:00 00:00:00 [facility] 350.1.13.10 ity of [place] 4.2.7.2.686 Oren as OLIVIER?BLEA [phone] De paulette ELAM [address] [place] MEDICAL OFFICE BUILDING 2021-09-19 2021-09-19 Patient [facility] 1.2.840.114 [id number] Univers 00:00:00 00:00:00 Secure Ms Luis HEALTH 350.1.13.10 it[place] of [place] [phone] [address] OFFICE BUILDING 2021-09-19 2021-09-19 Patient [facility] 1.2.840.114 [id number] Univers 00:00:00 00:00:00 Secure Msg Luis HEALTH 350.1.13.10 ity of [place] [phone] [address] OFFICE BUILDING 2021-09-16 2021-09-16 [facility] [id number] Univers 13:30:00 23:59:00 LUIS ity of [facility] 2021-09-16 2021-09-16 Outpatient R ADITYA [facility] [id number] Univers 13:30:00 13:30:00 LUIS ity [facility] 2021-09-16 2021-09-16 Computer Assembler 2, Adc Lab [facility] 1.2.840.114 [id number] Univers 13:15:00 13:30:00 Visit Joon Woody 350.1.13. 10 ity of [place].2.[place] [phone] De dicmaryellen HANDLEY [address] [place] [address] 2021-09-16 2021-09-16 Prep For [facility] 1.2.840.114 [id number] Univers 00:00:00 00:00:00 Surgery Zhu SPECIALTY 350.1.13.10 ity of [place].2.[place] AT [phone] De paulette [address] 2021-09-15 2021-09-15 Telephone [facility] 1.2.525.953 [id number] Univers 00:00:00 00:00:00 Zhu SPECIALTY 350.1.13.10 it[place] of [place] AT [phone] De paulette [address] 2021-09-09 2021-09-09 Outpatient R ANNALISE [facility] [id number] Univers 13:30:00 13:30:00 SENDIL ity [facility] 2021-09-09 2021-09-09 Outpatient R ANNALISE [facility] [id number] Univers 13:30:00 13:30:00 SENDIL ity [facility] 2021-09-08 2021-09-08 Telephone [facility] 1.2.248.718 [id number] Univers 00:00:00 00:00:00 Zhu SPECIALTY 350.1.13.10 ity of [place] AT [phone] De paulette [address] 2021-09-07 2021-09-07 Orders Doctor TOO 1.2.840.114 [id number] Univers 00:00:00 00:00:00 Only Unassigned, CADE 350.1.13.10 ity of [place] [facility] 4.2.7.2.686 Oren as [phone] [address] 2021-09-06 2021-09-06 Telephone Annalise [facility] 1.2.646.775 [id number] Univers 00:00:00 00:00:00 Joon HANDY 350.1.13.10 ity of [place].2.[place] [id number] De dicmaryellen NAL 059 [facility] 2021-09-02 2021-09-02 Outpatient R ADITYA [facility] [id number] Univers 15:00:00 15:00:00 LUIS ity [facility] 2021-09-02 2021-09-02 Outpatient Florence [facility] [id number] Univers 15:00:00 15:00:00 LUIS ity [facility] 2021-09-02 2021-09-02 Telephone [facility]Formerly [facility] 1.2.313.820 [id number] Univers 00:00:00 00:00:00 Zhu SPECIALTY 350.1.13.10 it[place] AT [phone] De paulette ORTIZ [address] [place] [address] 2021-09-02 2021-09-02 Telephone KingsleyFormerly [facility] 1.2.397.319 [id number] Univers 00:00:00 00:00:00 Zhu SPECIALTY 350.1.13.10 it[place] of [place] AT [phone] De dicmaryellen CARTERY [address] [place] [address] 2021-09-02 2021-09-02 Telephone KingsleyFormerly [facility] 1.2.327.843 [id number] Univers 00:00:00 00:00:00 Zhu SPECIALTY 350.1.13.10 ity of [place] AT [phone] De dicmaryellen CARTERY [address] [place] [address] 2021-09-01 2021-09-01 Computer Assembler Vls-Lab [facility] 1.2.840.114 [id number] Univers 13:15:00 13:30:00 Visit Marko Dupont 350.1.13.10 it[place] of [place] AT [phone] De paulette ORTIZ 353 [facility] 2021-09-01 2021-09-01 Outpatient R MARKO DUPONT [facility] 1 [id number] Univers 13:15:00 13:15:00 MARKO DUPONT [facility] 2021-09-01 2021-09-01 Office [facility] 1.2.840.114 [id number] Univers 11:00:00 11:30:00 Visit Marko GARZA 350.1.13.10 ity of [place] AT [phone] De paulette ORTIZ [address] [place] [address] 2021-09-01 2021-09-01 Office Kiah [facility] 1.2.840.114 [id number] Univers 11:00:00 11:30:00 Visit Marko GARZA 350.1.13.10 ity of [place]2.[place]2.[place] AT [phone] De paulette ORTIZ [address] [place] [address] 2021-09-01 2021-09-01 Outpatient R [facility] 1 [id number] Univers 11:00:00 11:00:00 [facility] 2021-09-01 2021-09-01 Outpatient R [facility] 1 [id number] Univers 11:00:00 11:00:00 [facility] 2021-08-29 2021-08-29 [facility] 1.2.840.114 [id number] Univers 11:30:00 11:53:59 Visit Joon HANDY 350.1.13.10 [place] [phone] De paulette HANDLEY 059 [facility] 2021-08-29 2021-08-29 [id number] Univers 11:30:00 11:53:59 SENDIL ity [facility] 2021-08-29 2021-08-29 Computer Assembler 2, Adc Lab [facility] 1.2.840.114 [id number] Univers 11:15:00 11:30:00 Visit Joon Woody 350.1.13. 10 [place] [phone] De dicmaryellen NAL 353 [facility] 2021-08-29 2021-08-29 [facility] [id number] Univers 11:15:00 11:15:00 [facility] 2021-08-23 Refill [facility] 1.2.840.114 [id number] Univers 00:00:00 00:00:00 Joon HANDY 350.1.13.10 [place] [phone] De dical NAL 059 [facility] 2021-08-21 2021-08-21 Refill [facility] 1.2.840.114 [id number] Univers 00:00:00 00:00:00 Joon HANDY 350.1.13.10 [place] [phone] De dical NAL 9 [facility] 2021-08-20 2021-08-20 Telephone Roman, [facility] 1.2.140.001 [id number] Univers 00:00:00 00:00:00 Gus HANDY 350.1.13.10 [place] [phone] De dical NAL 9 [facility] 2021-08-19 2021-08-19 Computer Assembler 2, Adc Lab [facility] 1.2.840.114 [id number] Univers 14:45:00 15:00:00 Visit Joon Woody 350.1.13. 10 [place] [phone] De dical NAL 353 [facility] 2021-08-19 2021-08-19 Outpatient R [facility] [id number] Univers 14:45:00 14:45:00 SENDIL ity [facility] 2021-08-13 2021-08-13 Telephone [facility] [id number] Univers 00:00:00 00:00:00 Gus HANDY 350.1.13.10 ity of [place] [phone] De dical NAL 9 [facility] 2021-08-12 2021-08-12 Computer Assembler 2, Adc Lab [facility] 1.2.840.114 [id number] Univers 14:45:00 15:00:00 Visit Joon Woody 350.1.13. 10 ity of [place] [phone] De dical NAL 353 [facility] 2021-08-12 2021-08-12 Outpatient R ANNALISE [facility] [id number] Univers 14:45:00 14:45:00 SENDIL ity [facility] 2021-08-10 2021-08-10 [facility] 1.2.840.114 [id number] Univers 00:00:00 00:00:00 Sendsissy HANDY 350.1.13.10 ity of [place] [phone] De dical NAL 059 [facility] 2021-08-10 2021-08-10 Orders Doctor TOO 1.2.840.114 [id number] Univers 00:00:00 00:00:00 Only Unassigned, CADE 350.1.13.10 ity of [place] [facility] 4.2.7.2.686 Oren as [phone] [address] 2021-08-07 2021-08-07 Telephone [facility] 1.2.827.317 [id number] Univers 00:00:00 00:00:00 Gus HANDY 350.1.13.10 ity of [place] [phone] De dical NAL 059 [facility] 2021-08-01 2021-08-01 Computer Assembler 2, Adc Lab [facility] 1.2.840.114 [id number] Univers 13:00:00 13:15:00 Visit Joon Woody 350.1.13. 10 ity of [facility] 4.[place] [phone] De dical NAL 353 [facility] 2021-08-01 2021-08-01 Outpatient R ANNALISE [facility] [id number] Univers 13:00:00 13:00:00 SENDSISSY [facility] 2021-07-31 2021-07-31 Telephone Annalise [facility] 1..704.316 [id number] Univers 00:00:00 00:00:00 Joon HANDY 350.1.13.10 ity of [place] [id number] De dic[address] 2021-07-29 2021-07-29 Outpatient JUVENCIO GARCIA [facility] [id number] Univers 14:49:16 23:59:00 JUVENCIO LUNA [facility] 2021-07-29 2021-07-29 Outpatient JUVENCIO GARCIA [facility] [id number] Univers 14:49:16 23:59:00 JUVENCIO LUNA [facility] 2021-07-29 2021-07-29 [facility] Clara [facility] 1.2.344.554 [id number] Univers 14:49:16 23:59:00 Ladonna HANDY 350.1.13.10 ity [facility] 4.2.7.2.[place] [phone] [address] 2021-07-29 2021-07-29 Computer Assembler 2, Adc Lab [facility] 1.2.840.114 [id number] Univers 14:00:00 14:15:00 Visit PratikdonaldJose Juan [place] 350.1.1 3.10 ity of Unknown, Attending [place] 4.2.7.2.686 [place] PROFESSIO [phone] De paulette HANDLEY 353 [facility] 2021-07-29 2021-07-29 Office Sunshine [facility] 1.2.840.114 [id number] Univers 13:15:00 13:30:00 Visit [facility] 350.1.13.10 it y of [place] [facility] 4.2.7.2.686 Oren as OLIVIER?BLEA [phone] De selinamaryellen EY [address] [place] [address] OFFICE [facility] 2021-07-29 2021-07-29 Outpatient R [facility] [id number] Univers 13:15:00 13:15:00 JOSE JUAN [facility] 2021-07-29 2021-07-29 Outpatient R [facility] [id number] Univers 13:15:00 13:15:00 [facility] 2021-07-25 2021-07-25 Office Leanne Aftab [facility] 1.2.840.11 [id number] Univers 15:30:00 16:30:00 Visit Karan Turner [facility] 350.1.13. 10 ity of [place] [phone] [address] 2021-07-25 2021-07-25 Outpatient R GM [facility] [id number] Univers 15:30:00 15:30:00 KARAN [facility] 2021-07-25 2021-07-25 Outpatient R GM [facility] [id number] Univers 15:30:00 15:30:00 KARAN [facility] 2021-07-25 2021-07-25 Telephone [facility] 1.2.840.114 [id number] Univers 00:00:00 00:00:00 Jose Juan [facility] 350.1.13.10 it y of [place] [facility] 4.2.7.2.686 Oren as OLIVIER?BLEA [phone] [facility] [address] [place] MEDICAL OFFICE [facility] 2021-07-22 2021-07-22 Outpatient R JUVENCIO LUNA [facility] [id number] Univers 13:40:00 14:19:02 JUVENCIO LUNA ity of [facility] 2021-07-22 2021-07-22 Office Clara [facility] 1.2.840.114 [id number] [facility] 13:40:00 14:19:02 Visit [facility] 350.1.13.10 ity of [place] 4.2.7.2.686 Oren as OLIVIER?BLEA [phone] De dicSteven [place] 960072 [place] MEDICAL OFFICE [facility] 2021-07-20 2021-07-20 Patient Stanley [facility] 1.2.840.114 [id number] Univers 00:00:00 00:00:00 Secure Msg [place] [facility] 350.1.13.10 ity of [facility] 4.2.7.2.686 Oren as OLIVIER?BLEA [phone] [address] OFFICE [facility] 2021-07-20 2021-07-20 Patient Doctor TOO 1.2.840.114 [id number] Univers 00:00:00 00:00:00 Secure Msg Unassigned, CADE 350.1.13.10 [facility] 4.2.7.2.686 Oren as [phone] [address] 2021-07-20 2021-07-20 Patient Angel [facility] 1.2.840.114 [id number] Univers 00:00:00 00:00:00 Secure Msg [place] HEALTH 350.1.13.10 ity of [facility] 4.2.7.2.686 Oren as OLIVIER?BLEA [phone] [address] OFFICE [facility] 2021-07-20 2021-07-20 Telephone Sunshine [facility] 1.2.840.114 [id number] [facility] 00:00:00 00:00:00 [facility] 350.1.13.10 it y of [place] [facility] 4.2.7.2.686 Oren as OLIVIER?BLEA [phone] De dic[address] OFFICE [facility] 2021-07-20 2021-07-20 Patient Doctor [facility] 1.2.840.114 [id number] Univers 00:00:00 00:00:00 Secure Msg Unassigned, HEALTH 350.1.13.10 ity of [place] 4.2.7.2.686 Oren as OLIVIER?BLEA [phone] [address] 2021-07-18 2021-07-18 Telephone Sunshine [facility] 1.2.840.114 [id number] Univers 00:00:00 00:00:00 Jose Juan BABS 350.1.13.10 it y of [place] 4.2.7.2.686 Oren as OLIVIER?BLEA [phone] [address] 2021-07-15 2021-07-15 Transition BHAVESH Henry 1.2.840.114 [id number] Univers 00:00:00 00:00:00 of Care Beata B FLOR[place] 350.1.13.10 it y of [place].2.[place] [phone] [facility] [address] [place] 2021-07-11 2021-07-14 Inpatient X TRICIA [facility] AVNI [id number] Univers 17:04:00 14:07:00 POPPY goetz [facility] 2021-07-11 2021-07-14 [employer] [facility] [employer] [facility] Raghu Richards [facility] 1.2.840.1 14 [id number] Univers 17:04:00 14:07:00 Encounter Moe Solorio 350.1.13.10 ity of [place] 4.2.7.2.686 [facility] [phone] [facility] [address] [place] 2021-07-11 2021-07-14 Inpatient X TRICIA [facility] AVNI [id number] Univers 17:04:00 14:07:00 POPPY goetz [facility] 2021-07-11 2021-07-11 Transition BHAVESH Henry 1.2.840.114 [id number] Univers 00:00:00 00:00:00 of Care Beata B [place]OR[place] 350.1.13.10 it y of [place] 4.2.7.2.686 [facility] [phone] [facility] [address] 2021-07-04 2021-07-08 [facility] [employer] [facility] Jay Jay Garcia [facility] 1.2.840.1 14 [id number] Univers 10:42:00 16:45:00 Encounter Hardik Kate 350.1.13.10 ity of [place] 4.2.7.2.686 [facility] [phone] [facility] [address] 2021-07-02 2021-07-02 Emergency X [facility] ERT [id number] Univers 13:13:00 15:09:00 JESSICA ity [facility] 2021-07-02 2021-07-02 Emergency [facility] 1.2.780.622 [id number] Univers 13:13:00 15:09:00 Jessica HANDY 350.1.13.10 i ty of [place] 4.2.7.2.686 [facility] [phone] [facility] [address] 2021-07-02 2021-07-02 Emergency X [facility] ERT [id number] Univers 13:13:00 15:09:00 JESSICA ity [facility] 2021-07-01 2021-07-01 [facility] 1.2.840.114 [id number] Univers 09:22:20 23:59:00 Encounter Joon HANDY 350.1.13.10 ity [place] 4.2.7.2.686 [facility] [phone] [facility] [address] 2021-07-01 2021-07-01 [facility] [id number] Univers 11:30:00 11:30:00 SENDIL ity [facility] 2021-07-01 2021-07-01 [facility] [id number] Univers 11:30:00 09:21:00 SENDIL sofy [facility] 2021-07-01 2021-07-01 [facility] 1.2.840.114 [id number] Univers 09:20:17 09:21:00 Encounter Joon HANDY 350.1.13.10 it[place] of [place].2.[place].2.[place] [phone] [facility] [address] [place] 2021-06-29 2021-06-29 Computer Assembler Lab, [facility] 1.2.840.1 14 [id number] Univers 15:30:00 15:45:00 Visit GloriablancadonaldJose Juan [place] [facility] 350.1.13 .10 ity of [place] 4.2.7.2.686 Oren as OLIVIER?BLEA [phone] [facility] 353 [facility] OFFICE [facility] 2021-06-29 2021-06-29 Outpatient R [facility] [id number] Univers 15:30:00 15:30:00 [facility] 2021-06-29 2021-06-29 Outpatient R [facility] [id number] Univers 14:30:00 15:01:03 [facility] 2021-06-29 2021-06-29 Office [facility] 1.2.840.114 [id number] Univers 14:30:00 15:01:03 Visit [facility] 350.1.13.10 it y of [place] 4.2.7.2.686 Oren as OLIVIER?BLEA [phone] [facility] 044 [facility] OFFICE [facility] 2021-06-29 2021-06-29 Computer Assembler 2, Adc Lab [facility] 1.2.840.114 [id number] Univers 14:15:00 14:30:00 Visit Joon Woody 350.1.13. 10 ity of [place].2.[place] [phone] [facility] 353 [facility] 2021-06-29 2021-06-29 Computer Assembler 2, [facility] 1.2.840.114 [id number] Univers 14:15:00 14:30:00 Visit Joon Woody 350.1.13. 10 ity of [place] [phone] De dical NAL 353 [facility] 2021-06-23 2021-06-23 Patient Doctor [facility] 1.2.840.114 [id number] Univers 00:00:00 00:00:00 Secure Msg UnassignedOLE 350.1.13.10 ity of [place] [facility] 4.2.7.2.[place] [phone] De dical NAL 059 [facility] 2021-06-20 2021-06-20 Transition BHAVESH Henry 1.2.840.114 [id number] Univers 00:00:00 00:00:00 of Care Beata FLORES 350.1.13.10 it y of [place] 4[place].2.[place] [phone] [facility] [address] [place] 2021-06-18 2021-06-18 Refill Annalise [facility] 1.2.840.114 [id number] Univers 00:00:00 00:00:00 Joon HANDY 350.1.13.10 ity of [facility] 4.2.7.2.[place] [phone] De dical NAL 059 [facility] 2021-06-14 2021-06-17 Outpatient X [facility] [id number] Univers 16:51:00 16:40:00 ADNAN ity [facility] 2021-06-14 2021-06-17 Emergency Michael Gutiérrezaniyah Henriquez [facility] 1.2.840. 114 [id number] Univers 16:51:00 16:40:00 Shannon Ely 350.1.13.10 ity of [facility] 4.2.7.2.[place] [phone] [facility] [address] [place] 2021-06-17 2021-06-17 Outpatient R ADITYA [facility] [id number] Univers 10:20:00 10:20:00 LUIS ity [facility] 2021-06-14 2021-06-14 Outpatient X SOLIS [facility] AVNI [id number] Univers 16:51:00 16:51:00 ADNAN ity [facility] 2021-06-142021-06-14 Telephone Annalise PRCLARIBEL 1.2.322.251 [id number] Univers 00:00:00 00:00:00 Sendil Lauren HANDY 350.1.13.10 ity of [place] 4.2.7.2.[place] [phone] [place] 284899 [facility] 2021-06-10 2021-06-10 Outpatient [facility] [id number] Univers 16:00:00 16:32:09 ARIELLE, ity of [facility] 2021-06-10 2021-06-10 Office Cecy MENENDEZ 1.2.840.114 [id number] Univers 16:00:00 16:32:09 Visit Arielle PEDIATRIC 350.1.13.10 ity of [facility] S [facility] 4.2.7.2.[place] [phone] [place] 938229 [facility] 2021-06-10 2021-06-10 Outpatient R [facility] [id number] Univers 16:00:00 16:00:00 ARIELLE, ity of [facility] 2021-06-10 2021-06-10 Orders Doctor TOO 1.2.840.114 [id number] Univers 00:00:00 00:00:00 Only Unassigned, CADE 350.1.13.10 ity of [place] [facility] 4.2.7.2.686 Oren as [phone] [place] [address] [address] 2021-06-06 2021-06-06 [facility] [id number] Univers 15:00:00 23:59:00 SENDIL ity [facility] 2021-06-06 2021-06-06 [facility] [id number] Univers 15:00:00 15:00:00 [facility] 2021-06-06 Outpatient R ANNALISE [facility] [id number] Univers 13:30:00 14:33:23 [facility] 2021-06-06 2021-06-06 [facility] 1.2.840.114 [id number] Univers 13:30:00 14:33:23 Visit Joon HANDY 350.1.13.10 ity of [facility] 4.2.7.2.[place] [phone] De dical NAL 059 [facility] 2021-06-06 2021-06-06 Outpatient [facility] [id number] Univers 13:30:00 14:33:23 SENDIL ity of [facility] 2021-06-06 2021-06-06 Computer Assembler 2, Adc Lab [facility] 1.2.840.114 [id number] Univers 13:15:00 13:15:00 Visit Joon Woody 350.1.13. 10 ity of [facility] 4.2.[place].2.[place] [phone] [employer] 353 [facility] 2021-06-03 2021-06-03 Outpatient [facility] [id number] Univers 11:00:00 11:00:00 LUIS ity of [facility] 2021-06-03 2021-06-03 Tele[facility] 1.2.095.762 [id number] Univers 00:00:00 00:00:00 Joon HANDY 350.1.13.10 ity of [facility] 4.2.7.2.[place] [phone] [employer] [facility] 059 [facility] 2021-05-30 2021-05-30 Orders Doctor TOO 1.2.840.114 [id number] Univers 00:00:00 00:00:00 Only Unassigned, CADE 350.1.13.10 ity of [place] [facility] 4.2.7.2.686 Oren as [phone] [address] 2021-05-25 2021-05-25 Computer Assembler 2, Adc Lab [facility] 1.2.840.114 [id number] Univers 14:00:00 14:15:00 Visit Joon Woody 350.1.13. 10 ity of [place] 4.[place].7.2.[place] [phone] De dical [facility] 353 [facility] 2021-05-25 2021-05-25 Outpatient R ANNALISE [facility] [id number] Univers 14:00:00 14:00:00 [facility] 2021-05-25 2021-05-25 Telephone Aditya [facility] 1.2.655.306 [id number] Univers 00:00:00 00:00:00 Luis [place] 350.1.13.10 i ty of [facility] 4.2.7.2.[place] [phone] [address] 2021-05-25 2021-05-25 Telephone Aditya [facility] 1.2.385.720 [id number] Univers 00:00:00 00:00:00 Luis [place] 350.1.13.10 i ty of [facility] 4.2.7.2.[place] [phone] [address] 2021-05-16 2021-05-16 Telephone Annalise [facility] 1.2.073.965 [id number] Univers 00:00:00 00:00:00 Joon HANDY 350.1.13.10 ity of [place] 4.[place].7.2.[place] [phone] [address] 2021-05-11 2021-05-11 Computer Assembler 2, Adc Lab [facility] 1.2.840.114 [id number] Univers 14:45:00 15:00:00 Visit Joon Woody 350.1.13. 10 ity of [place] 4[place].2.[place] [phone] [address] 2021-05-11 2021-05-11 Outpatient R ANNALISE [facility] [id number] Univers 14:45:00 14:45:00 SENDIL april [facility] 2021-05-10 2021-05-10 [facility] 1.2.784.853 [id number] Univers 00:00:00 00:00:00 Joon HANDY 350.1.13.10 ity [facility] 4.2.7.2.[place] [phone] De dical [facility] [address] BUILDING 2021-05-09 2021-05-09 Hospital JEFF Burgess 1.2.840.114 [id number] Univers 00:00:00 23:59:00 [facility] 350.1.13.10 ity of [facility] 4.2.7.2.686 Oren as [phone] [facility] [address] [place] 2021-05-09 2021-05-09 Outpatient R [facility] [id number] Univers 00:00:00 23:59:00 ity of [facility] 2021-05-09 2021-05-09 [facility]patient [facility] [id number] Univers 00:00:00 00:00:00 LUIS ity [facility] 2021-05-03 2021-05-03 Computer Assembler Draw, Clc-Bls Lab [facility] 1.2.8 40.114 [id number] Univers 11:15:00 11:30:00 [facility] 350.1.13.10 [place] of [place] [phone] [facility] [address] [place] OFFICE BUILDING 2021-05-03 2021-05-03 Outpatient R MICHAEL [facility] [id number] Univers 11:15:00 11:15:00 SINJU ity [facility] 2021-05-03 2021-05-03 [facility] 1.2.840.114 [id number] Univers 10:15:00 11:00:00 Visit [facility] 350.1.13.10 it y of [place]2.[place].2.[place] [phone] [facility] [address] [place] OFFICE BUILDING 2021-05-03 2021-05-03 Outpatient R MICHAEL [facility] [id number] Univers 10:15:00 10:15:00 SIN ity [facility] 2021-04-26 2021-04-26 [facility] [id number] Univers 14:30:00 14:30:00 SENDIL ity [facility] 2021-04-26 2021-04-26 Computer Assembler 2, Adc Lab [facility] 1.2.840.114 [id number] Univers 14:30:00 14:30:00 Visit WoodyJoon 350.1.13. 10 ity of [facility] 4.2.7.2.[place] [phone] De dical NAL 353 [facility] 2021-04-21 2021-04-21 Telephone [facility] 1.2.866.879 [id number] Univers 00:00:00 00:00:00 Joon HANDY 350.1.13.10 ity of [facility] 4.2.7.2.[place] [phone] De dical NAL 059 [facility] 2021-04-19 2021-04-19 Outpatient R MEHNAZ RODRIGUEZ [facility] [id number] Univers 11:30:00 13:45:03 MEHNAZ RODRIGUEZ i ty of [facility] 2021-04-19 2021-04-19 Office Danilo [facility] 1.2.840.114 [id number] Univers 11:30:00 12:00:00 Visit Mehnaz HANDY 350.1.13.10 i ty of [facility] 4.2.7.2.[place] [phone] De dical NAL 085 [facility] 2021-04-19 2021-04-19 Outpatient R MEHNAZ RODRIGUEZ [facility] [id number] Univers 11:30:00 11:30:00 MEHNAZ RODRIGUEZ i ty of [facility] 2021-04-19 2021-04-19 Outpatient R [facility] [id number] Univers 10:00:00 10:52:24 JOSE JUAN goetz [facility] 2021-04-19 2021-04-19 Office Sunshine [facility] 1.2.840.114 [id number] Univers 10:00:00 10:52:24 Visit [facility] 350.1.13.10 it y of [place] 4.2.7.2.686 Oren as OLIVIER?BLEA [phone] Me dicmaryellen KNEY [address] [place] MEDICAL OFFICE [facility] 2021-04-15 2021-04-15 Case Danilo [facility] 1.2.840.114 [id number] Univers 00:00:00 00:00:00 Management Mehnaz HANDY 350.1.13.10 ity of [facility] 4.2.7.2.[place] [phone] De selinaal NAL 085 [facility] 2021-04-13 2021-04-13 Telephone JuanbrendaYANIV 1.2.840.114 [id number] Univers 00:00:00 00:00:00 [facility] 350.1.13.10 i ty of [facility] 4.2.7.2.[place] [phone] [address] 2021-04-12 2021-04-12 Outpatient R ANNALISE [facility] [id number] Univers 15:45:00 15:45:00 SENDIL itapril [facility] 2021-04-12 2021-04-12 Computer Assembler 2, Adc Lab [facility] 1.2.840.114 [id number] Univers 15:45:00 15:45:00 Visit Joon Woody 350.1.13. 10 ity of [facility] 4.2.7.2.[place] [phone] De paulette HANDLEY 353 [facility] 2021-04-12 2021-04-12 Office [facility] 1.2.840.114 [id number] Univers 14:30:00 15:31:53 Visit Joon HANDY 350.1.13.10 ity of [facility] 4.2.7.2.[place] [phone] De paulette HANDLEY 059 [facility] 2021-04-12 2021-04-12 Outpatient R ANNALISE [facility] [id number] Univers 14:30:00 15:31:53 SENDIL sofy [facility] 2021-04-12 2021-04-12 [facility] [id number] Univers 14:30:00 14:30:00 SENDIL ity of [facility] 2021-04-12 2021-04-12 Patient Doctor [facility] 1.2.840.114 [id number] Univers 00:00:00 00:00:00 Secure Msg Unasspj, OLE 350.1.13.10 ity of [place] [facility] [phone] De dical NAL [address] [place] [address] 2021-04-08 2021-04-08 [facility] [id number] Univers 09:03:48 23:59:00 LUIS ity of [facility] 2021-04-08 2021-04-08 [facility] [id number] Univers 09:03:48 23:59:00 LUIS ity [facility] 2021-04-08 2021-04-08 [facility] 1.2.840.114 [id number] Univers 09:00:00 23:59:00 Encounter Luis OLE 350.1.13.10 [place] [phone] [address] 2021-04-08 2021-04-08 [facility] [id number] Univers 09:03:48 09:03:48 LUIS ity [facility] 2021-04-08 2021-04-08 [facility] [id number] Univers 00:00:00 00:00:00 LUIS ity [facility] 2021-04-08 2021-04-08 Telephone Annalise [facility] [id number] Univers 00:00:00 00:00:00 Sendil Lauren HANDY 350.1.13.10 ity of [place] [phone] De dical NAL [address] [place] [address] 2021-03-31 2021-03-31 Patient Annalise [facility] 1.2.840.114 [id number] Univers 00:00:00 00:00:00 Secure Msg Sendil [facility] 350.1.13.10 it[facility] [place] [phone] De dical NAL 059 [facility] 2021-03-31 2021-03-31 Patient Annalise [facility] 1.2.840.114 [id number] Univers 00:00:00 00:00:00 Secure Msg Sendil Lauren HANDY 350.1.13.10 [facility] [place] [phone] De dical NAL 059 [facility] 2021-03-29 2021-03-29 Patient Annalise [facility] 1.2.840.114 [id number] Univers 00:00:00 00:00:00 Secure Msg Joon HANDY 350.1.13.10 [facility] [place] [phone] De dical NAL 059 [facility] 2021-03-22 2021-03-22 [facility] [facility] [id number] Univers 11:00:00 11:01:17 JOON goetz [facility] 2021-03-22 2021-03-22 Computer Assembler 2, Adc Lab [facility] 1.2.840.114 [id number] Univers 11:00:00 11:01:17 Visit AnnaliseJoon 350.1.13. 10 ity of [place] [phone] De dical NAL 353 [facility] 2021-03-11 2021-03-11 Outpatient R [facility] [id number] Univers 11:00:00 11:16:39 JOSE JUAN goetz [facility] 2021-03-11 2021-03-11 Outpatient R [facility] [id number] Univers 11:00:00 11:16:39 JOSE JUAN goetz [facility] 2021-03-11 2021-03-11 Office [facility] 1.2.840.114 [id number] Univers 11:00:00 11:15:00 Visit [facility] 350.1.13.10 it y of [place] CECILIAHOLLY 4.2.7.2.686 Oren as OLIVIER?BLEA [phone] De paulette ELAM 044 [facility] OFFICE BUILDING 2021-03-10 2021-03-10 [facility] [id number] Univers 11:00:00 11:00:00 SENDIL ity [facility] 2021-03-10 2021-03-10 Refill [facility] 1.2.840.114 [id number] Univers 00:00:00 00:00:00 [facility] 350.1.13.10 it y of [place] [phone] [address] OFFICE [facility] 2021-03-07 2021-03-07 [facility] [id number] Univers 13:30:00 13:30:00 SENDIL ity [facility] 2021-03-01 2021-03-01 [facility] [id number] Univers 09:30:00 09:30:00 SENDIL ity [facility] 2021-03-01 2021-03-01 Computer Assembler 2, Adc Lab [facility] 1.2.840.114 [id number] Univers 09:30:00 09:30:00 Visit Joon Woody 350.1.13. 10 ity of [place] [phone] De dicmaryellen NAL 353 [facility] 2021-02-25 2021-02-25 Telephone [facility] 1.2.840.114 [id number] Univers 00:00:00 00:00:00 OLE Guzmán 350.1.13.10 ity of [place].2.7.2.[place] [phone] De dical NAL 059 [facility] 2021-02-25 2021-02-25 Telephone [facility] 1.2.840.114 [id number] Univers 00:00:00 00:00:00 Arielle [facility] 350.1.13.10 ity of [place] [phone] [facility] [address] OFFICE BUILDING 2021-02-15 2021-02-15 Outpatient [facility] [id number] Univers 14:30:00 14:44:40 ARIELLE, ity of [facility] 2021-02-15 2021-02-15 Outpatient R [facility] [id number] Univers 14:30:00 14:44:40 ARIELLE, ity of [facility] 2021-02-15 2021-02-15 Office [facility] GEMMA 1.2.840.114 [id number] Univers 14:04:14 14:44:40 Visit Arielle PEDIATRIC 350.1.13.10 ity of [place].2.[place].2.[place] AD[place] [phone] [facility] PRIMARY [address] CARE CLINIC 2021-02-14 2021-02-14 Computer Assembler 2, Adc Lab [facility] 1.2.840.114 [id number] Univers 15:48:40 16:03:40 Visit Joon Woody 350.1.13. 10 ity of [place] [phone] [facility] [address] [facility] 2021-02-14 2021-02-14 Outpatient Florence [facility] [id number] Univers 09:00:00 09:00:00 SENDIL ity [facility] 2021-02-14 2021-02-14 Outpatient Florence [facility] [id number] Univers 09:00:00 09:00:00 SENDIL ity [facility] 2021-02-14 2021-02-14 Telephone YANIV Sebastian 1.2.840.114 [id number] Univers 00:00:00 00:00:00 [facility] HEALTH 350.1.13.10 i ty of [facility] 4.2.7.2.[place] [phone] [address] 2021-02-11 2021-02-11 [facility] 1.2.840.114 [id number] Univers 00:00:00 00:00:00 Joon [place] 350.1.13.10 ity of [facility] 4.2.7.2.[place] [phone] De dical NAL 059 [facility] 2021-02-08 2021-02-08 [facility] [id number] Univers 11:00:19 23:59:00 LUIS ity of [facility] 2021-02-08 2021-02-08 Hospital [facility] 1.2.840.114 [id number] Univers 11:00:19 23:59:00 Encounter Luis OLE 350.1.13.10 ity of [place] 4.2.7.2.[place] [phone] De dical NAL 844 [facility] 2021-02-08 2021-02-08 Office [facility] 1.2.840.114 [id number] Univers 10:58:26 11:18:26 Visit Luislashonda HANDY 350.1.13.10 i ty of [place] 4.2.7.2.686 [place] [phone] De dical NAL 059 [facility] 2021-02-08 2021-02-08 [facility] [id number] Univers 11:00:00 11:00:00 LUIS ity of [facility] 2021-02-07 2021-02-07 Outpatient R [facility] [id number] Univers 13:00:00 13:00:00 INCOLE ity [facility] 2021-01-31 2021-01-31 Office [facility] 1.2.840.114 [id number] Univers 14:05:00 15:05:41 Visit Nicoleki HANDY 350.1.13.10 ity of [facility] 4.2.7.2.[place] [phone] De dical NAL 204 [facility] 2021-01-31 2021-01-31 [facility] [id number] Univers 14:00:00 15:05:41 NICOLE goetz [facility] 2021-01-31 2021-01-31 Outpatient R [facility] [id number] Univers 14:00:00 14:00:00 NICOLE goetz [facility] 2021-01-31 2021-01-31 Outpatient [facility] [id number] Univers 14:00:00 14:00:00 NICOLE [facility] 2021-01-31 2021-01-31 Patient [facility] 1.2.840.114 [id number] Univers 00:00:00 00:00:00 [facility] HEALTH 350.1.13.10 ity of [place] 4.2.7.2.[place] [phone] [facility] [address] OFFICE [facility] 2021-01-31 2021-01-31 Refill [facility] 1.2.840.114 [id number] Univers 00:00:00 00:00:00 Luis [place] 350.1.13.10 i ty of [place] 4.2.7.2.[place] [phone] De dical NAL 059 [facility] 2021-01-21 2021-01-21 Computer Assembler 2, Adc Lab [facility] 1.2.840.114 [id number] Univers 15:15:00 15:20:01 Visit Joon Woody 350.1.13. 10 ity of [place] 4.2.7.2.[place] [phone] De dical NAL 353 [facility] 2021-01-21 2021-01-21 Computer Assembler 2, Adc Lab [facility] 1.2.840.114 [id number] Univers 15:13:15 15:20:01 Visit Joon Woody 350.1.13. 10 ity of [place] 4.2.7.2.[place] [phone] De dical NAL 353 [facility] 2021-01-21 2021-01-21 Outpatient [facility] [id number] Univers 15:15:00 15:15:00 SENDIL ity of [facility] 2021-01-18 2021-01-18 Telephone Woody, [facility] 1.2.514.629 [id number] Univers 00:00:00 00:00:00 Joon Aguilar HEALTH 350.1.13.10 ity of [place] 4.2.7.2.[place] [phone] [facility] [address] OFFICE BUILDING 2021-01-17 2021-01-17 Outpatient [facility] [id number] Univers 14:30:00 14:51:27 JOSE JUAN ity [facility] 2021-01-17 2021-01-17 Office [facility] 1.2.840.114 [id number] Univers 14:11:10 14:51:27 Visit [facility] 350.1.13.10 it y of [place] 4.2.7.2.686 Oren as OLIVIER?BLEA [phone] De paulette KNEY 044 [facility] OFFICE [facility] 2021-01-14 2021-01-14 Outpatient R MEHNAZ [facility] 10 [id number] Univers 13:00:00 13:48:56 MEHNAZ RODRIGUEZ i ty of [facility] 2021-01-14 2021-01-14 Office [facility] 1.2.840.114 [id number] Univers 12:50:20 13:48:56 Visit Mehnaz HANDY 350.1.13.10 i ty of [facility] 4.2.7.2.686 [place] [facility] [phone] De paulette HANDLEY 085 [facility] 2021-01-14 2021-01-14 Outpatient R MEHNAZ [facility] 10 [id number] Univers 13:00:00 13:00:00 MEHNAZ RODRIGUEZ i ty of [facility] 2021-01-13 2021-01-13 Computer Assembler 2, Adc Lab [facility] 1.2.840.114 [id number] Univers 11:26:25 11:41:25 Visit Joon Wood[facility] 350.1.13. 10 ity of [place].7.2.[place] [phone] De dical NAL 353 [facility] 2021-01-13 2021-01-13 Computer Assembler 2, Adc Lab [facility] 1.2.840.114 [id number] Univers 11:26:25 11:32:58 Visit Joon Woody 350.1.13. 10 ity of [facility] 4.2.7.2.[place] [phone] De dical NAL 353 [facility] 2021-01-13 2021-01-13 Outpatient R ANNALISE [facility] [id number] Univers 11:30:00 11:30:00 SENDIL ity of [facility] 2021-01-13 2021-01-13 Office Annalise [facility] 1.2.840.114 [id number] Univers 10:00:25 11:07:05 Visit Joon HANDY 350.1.13.10 ity of [facility] 4.2.7.2.[place] [phone] De dical NAL 059 [facility] 2021-01-13 2021-01-13 Outpatient R ANNALISE [facility] [id number] Univers 10:00:00 11:07:05 SENDIL ity of [facility] 2021-01-13 2021-01-13 Refill [facility] 1.2.840.114 [id number] Univers 00:00:00 00:00:00 Joon HANDY 350.1.13.10 ity of [facility] 4.2.7.2.[place] [phone] De dical NAL 059 [facility] 2021-01-11 2021-01-11 Outpatient R [facility]A [facility] [id number] Univers 10:45:00 23:59:00 LUIS ity of [facility] 2021-01-11 2021-01-11 [employer] [facility] [employer] [facility] 1.2.840.114 [id number] Univers 10:45:00 23:59:00 [facility] 350.1.13.10 ity of [place] 4.2.[place].2.686 [place] [phone] [place] [address] OFFICE BUILDING 2021-01-11 2021-01-11 Hospital [facility] 1.2.840.114 [id number] Univers 09:35:03 23:59:00 Encounter Joon Aguilar [facility] 350.1.13.10 ity of [place] 4.2.7.2.686 [place] [phone] [address] OFFICE BUILDING 2021-01-10 2021-01-10 Mateo G[facility] 1.2.840.114 [id number] Univers 00:00:00 00:00:00 [facility] 350.1.13.10 it y of [place] HANDY 4.2.7.2.686 Oren as OLIVIER?BLEA [phone] De paulette RIVERA 044 [facility] OFFICE BUILDING 2021-01-07 2021-01-07 Transition BHAVESH Henry 1.2.840.114 [id number] Univers 00:00:00 00:00:00 of Care Beata FLORES 350.1.13.10 it y of [place] 4.2.7.2.[place] [phone] [facility] [address] 2021-01-05 2021-01-06 Outpatient X CRISTEL [facility] AVNI [id number] Univers 10:26:00 12:42:00 MOE goetz [facility] 2021-01-05 2021-01-06 Emergency Jessica Hewitt [facility] 1.2.840. 114 [id number] Univers 10:26:00 12:42:00 Moe Solorio 350.1.13.10 ity of [place].2.7.2.[place] C[place] [phone] [facility] [address] 2021-01-05 2021-01-06 Outpatient X CRISTEL [facility] AVNI [id number] Univers 10:26:00 12:42:00 MOE goetz [facility] 2021-01-06 2021-01-06 Telephone [facility] 1.2.497.423 [id number] Univers 00:00:00 00:00:00 Luis HANDY 350.1.13.10 i ty of [place] 4.2.7.2.[place] [phone] De dicut NAL 9 [facility] 2021-01-05 2021-01-05 Outpatient X CRISTEL [facility] AVNI [id number] Univers 10:26:00 10:26:00 MOE ity [facility] 2021-01-05 2021-01-05 Telephone [facility] 1.2.548.008 [id number] Univers 00:00:00 00:00:00 Joon Handy 350.1.13.10 ity of [place] 4.[place].7.2.[place] Profess[place] [phone] [address] 2021-01-05 2021-01-05 Telephone [facility] 1.2.367.039 [id number] Univers 00:00:00 00:00:00 Joon HANDY 350.1.13.10 ity of [place] 4.2.7.2.[place] [phone] [address] 2021-01-04 2021-01-04 Outpatient R [facility] [id number] Univers 13:00:00 15:09:07 JOSE JUAN [facility] 2021-01-04 2021-01-04 Office [facility] 1.2.840.114 [id number] Univers 12:39:25 15:09:07 Visit [facility] 350.1.13.10 it y of [place] 4.2.7.2.686 Oren as OLIVIER?BLEA [phone] [address] MEDICAL OFFICE BUILDING 2021-01-04 2021-01-04 Outpatient R [facility] [id number] Univers 13:00:00 13:00:00 JOSE JUAN goetz [facility] 2020-12-30 2020-12-30 Outpatient R MEHNAZ [facility]IG[facility]Z [facility] [id number] Univers 10:00:00 10:00:00 MEHNAZ RODRIGUEZ i ty [facility] 2020-12-27 2020-12-28 Hospital Vickey Montejo [facility] 1. 2.840.114 [id number] Univers 15:44:00 17:25:00 Encounter Blue [facility] 350.1.13.10 ity of Provider, [facility] Ep Lab Clear 4.2.7.2.686 [facility], [facility] Ep Lab Franco [phone] ([facility]) 2020-12-27 2020-12-27 Outpatient R [facility]D [facility] [id number] Univers 13:00:00 13:00:00 ELBAVICKEY it y of [facility] 2020-12-24 2020-12-24 Pre-Anesth Call, [facility] 1.2.840.114 [id number] Univers 08:35:00 08:40:[address] [facility] Phone HEALTH 350.1.13.10 ity of [place].2.7.2.686 [place] [phone] [facility] [address] [place] ([facility]) 2020-12-24 2020-12-24 Telephone [facility] 1.2.874.568 [id number] Univers 00:00:00 00:00:00 [facility] Health 350.1.13.10 it y of [place].2.686 [place] Franco [phone] [address] ([facility]) 2020-12-21 2020-12-21 Hospital Aditya [facility] 1.2.840.114 [id number] Univers 10:26:41 23:59:00 Encounter Provider, [facility] Ep Lab Health 350.1.1 3.10 ity of [place] 4.2.7.2.686 [place] Franco [phone] [facility] [address] [place] ([facility]) 2020-12-21 2020-12-21 Outpatient R [facility] [id number] Univers 13:00:00 13:00:00 LUIS ity of [facility] 2020-12-20 2020-12-20 Telephone [facility] 1.2.969.583 [id number] Univers 00:00:00 00:00:00 Luis Health 350.1.13.10 it y of [place] 4[place]2.7.2.686 [place] Franco [phone] [address] ([facility]) 2020-12-17 2020-12-17 Telephone [facility] 1.2.065.271 [id number] Univers 00:00:00 00:00:00 Luis Langley 350.1.13.10 i ty of [place] 4.2.7.2.686 [place] [phone] De dical nal 9 [facility] 2020-12-17 2020-12-17 [place] [facility] 1.2.270.904 [id number] Univers 00:00:00 00:00:00 Luis Langley 350.1.13.10 i ty of [place] 4.[place].7.2.[place] Profess[place] [phone] [facility] nal 9 [facility] 2020-12-14 2020-12-14 [facility] 1.2.840.114 [id number] Univers 11:20:00 23:59:00 Encounter Sendil [facility] 350.1.13.10 ity of [place] 4.2.7.2.686 [place] Profess[place] [phone] [facility] 844 [facility] 2020-12-14 2020-12-14 [facility] 1.2.840.114 [id number] Univers 11:25:20 12:18:32 Visit Luis Langle[place] 350.1.13.10 i ty of [place] 4.2.7.2.[place] Profess[place] [phone] [address] 2020-12-14 2020-12-14 [facility] [id number] Univers 11:40:00 11:40:00 LUIS ity [facility] 2020-12-14 2020-12-14 Out[facility] [id number] Univers 00:00:00 00:00:00 SENDIL ity [facility] 2020-12-09 2020-12-09 [place] [facility] 1.2.692.654 [id number] Univers 00:00:00 00:00:00 Luis Langley 350.1.13.10 i ty of [place] 4.2.7.2.[place] Profess[place] [phone] De dical nal 059 [facility] 2020-12-07 2020-12-07 Outpatient R [facility]A [facility] [id number] Univers 13:20:00 13:20:00 LUIS ity of [facility] 2020-12-07 2020-12-07 Office Aditya [facility] 1.2.840.114 [id number] Univers 10:37:26 11:17:10 Visit Luis Ole 350.1.13.10 i ty of [place] 4.2.7.2.686 [place] [phone] [place] 328749 [facility] 2020-12-07 2020-12-07 Orders Doctor TOO 1.2.840.114 [id number] Univers 00:00:00 00:00:00 Only Unassigned, CADE 350.1.13.10 ity of [place] [facility] 4.2.7.2.686 Oren as [phone] [address] 2020-12-06 2020-12-06 Computer Assembler 2, Adc Lab [facility] 1.2.840.114 [id number] Univers 15:12:24 15:27:24 Visit Joon Woody 350.1.13. 10 ity of [place] 4.2.7.2.[place] [phone] [facility] 353 [facility] 2020-12-06 2020-12-06 Office Annalise [facility] 1.2.840.114 [id number] Univers 13:59:53 15:05:54 Visit Joon Handy 350.1.13.10 ity of [place] 4.2.7.2.[place] [phone] De dicut nal 059 [facility] 2020-12-06 2020-12-06 Outpatient R AN[facility]ISE [facility] [id number] Univers 14:00:00 14:00:00 SENDIL ity of [facility] 2020-12-06 2020-12-06 Telephone [facility] 1.2.838.140 [id number] Univers 00:00:00 00:00:00 Sendil K.H. Ole 350.1.13.10 ity of [place] 4.2.7.2.[place] [phone] De dical nal 059 [facility] 2020-12-03 2020-12-03 Orders Doctor TOO 1.2.840.114 [id number] Univers 00:00:00 00:00:00 Only Unassigned, CADE 350.1.13.10 ity of [place] [facility] 4.2.7.2.686 Oren as [phone] [address] 2020-12-02 2020-12-02 Outpatient R [facility] [id number] Univers 09:00:00 09:00:00 SENDIL ity of [facility] 2020-11-30 2020-11-30 [facility] 1.2.840.114 [id number] Univers 09:03:20 23:59:00 Encounter Sendil [facility] 350.1.13.10 ity of [place]2.7.2.[place] CENTER AT [phone] De selinaut RAULApril 805 [facility] 2020-11-30 2020-11-30 Outpatient R [facility] [id number] Univers 14:00:00 14:00:00 SENDIL ity of [facility] 2020-11-30 2020-11-30 [facility] 1.2.840.114 [id number] Univers 09:00:00 09:02:00 Encounter Sendil [facility] 350.1.13.10 ity of [place] 4.2.7.2.[place] CENTER AT [phone] [facility] [address] [place] [address] 2020-11-30 2020-11-30 Outpatient R [facility] [id number] Univers 09:00:00 09:00:00 SENDIL ity [facility] 2020-11-22 2020-11-22 [facility] 1.2.840.114 [id number] Univers 08:38:20 23:59:00 Encounter Joon Handy 350.1.13.10 ity of [place] 4.2.7.2.[place] [phone] [facility] 843 [facility] 2020-11-22 2020-11-22 Outpatient R [facility] [id number] Univers 09:00:00 09:00:00 SENDIL ity [facility] 2020-11-22 2020-11-22 Computer Assembler 2, Adc Lab [facility] 1.2.840.114 [id number] Univers 08:25:17 08:40:17 Visit Joon Woody 350.1.13. 10 ity of [place].2.[place] [phone] [facility] 353 [facility] 2020-11-22 2020-11-22 Computer Assembler 2, Adc Lab [facility] 1.2.840.114 [id number] Univers 08:25:17 08:40:17 Visit Joon Woody 350.1.13. 10 ity of [place] 4[place].7.2.[place] [phone] [facility] 353 [facility] 2020-11-17 2020-11-17 Orders Doctor TOO 1.2.840.114 [id number] Univers 00:00:00 00:00:00 Only Unassigned, CADE 350.1.13.10 ity of [place] [facility] 4.2.7.2.686 Oren as [phone] [address] 2020 2020 Orders Doctor TOO 1.2.840.114 [id number] Univers 00:00:00 00:00:00 Only Unassigned, CADE 350.1.13.10 ity of [place] [facility] 4.2.7.2.686 Oren as [phone] [address] 2020-11-11 2020-11-11 Telephone Annalise [facility] 1.2.159.078 [id number] Univers 00:00:00 00:00:00 Sendil [facility] 350.1.13.10 ity of [place].2.[place] [phone] De dical nal 059 [facility] 2020-11-11 2020-11-11 Telephone [facility] 1.2.220.335 [id number] [facility] 00:00:00 00:00:00 Joon Handy 350.1.13.10 ity of [place] 4.2.7.2.[place] [phone] De dicut nal 9 [facility] 2020-11-11 2020-11-11 Orders Doctor TOO 1.2.840.114 [id number] [facility] 00:00:00 00:00:00 Only Unassigned, CADE 350.1.13.10 ity of [place] [facility] 4.2.7.2.686 Oren as [phone] [address] 2020-11-10 2020-11-10 [facility] 1.2.926.738 [id number] [facility] 00:00:00 00:00:00 Joon Handy 350.1.13.10 it[place] of [place].7.2.[place] [phone] De dicut nal 9 [facility] 2020-11-10 2020-11-10 [facility] 1.2.125.373 [id number] Univers 00:00:00 00:00:00 Joon Handy 350.1.13.10 ity of [place] 4[place].7.2.[place] [phone] De dical nal 059 [facility] 2020-11-04 2020-11-04 Computer Assembler 2, Adc Lab [facility] 1.2.840.114 [id number] [facility] 10:03:16 10:18:16 Visit Joon Woody 350.1.13. 10 [id number] [phone] De dical nal 353 [facility] 2020-11-04 2020-11-04 Computer Assembler 2, Adc Lab [facility] 1.2.840.114 [id number] [facility] 10:03:16 10:18:16 Visit Joon Woody 350.1.13. 10 [place] [phone] De dical nal 353 [facility] 2020-11-04 2020-11-04 Office Woody, [facility] 1.2.840.114 [id number] [employer] 09:06:37 09:51:58 Visit Joon Handy 350.1.13.10 [place] [phone] De dical nal 059 [facility] 2020-11-04 2020-11-04 [facility] 1.2.840.114 [id number] Univers 09:06:37 09:51:58 Visit Joon Handy 350.1.13.10 [place] [phone] De dical nal 059 [facility] 2020-11-04 2020-11-04 [facility] [id number] Univers 09:00:00 09:51:58 SENDIL ity [facility] 2020-11-04 2020-11-04 Outpatient R [facility]NALISE [facility] [id number] Univers 09:00:00 09:51:58 SENDIL ity of [facility] 2020-11-04 2020-11-04 Outpatient R ANNALISE [facility] [id number] Univers 09:00:00 09:00:00 SENDIL ity [facility] 2020-11-03 2020-11-03 Computer Assembler 2, Adc Lab [facility] 1.2.840.114 [id number] Univers 14:33:53 14:48:53 Visit Nicole Womack 350.1.13.10 [place] [phone] De dical nal 353 [facility] 2020-11-03 2020-11-03 Computer Assembler 2, Adc Lab [facility] 1.2.840.114 [id number] Univers 14:33:53 14:48:53 Visit Nicole Womack 350.1.13.10 [place] [phone] De dical [facility] 353 [facility] 2020-11-03 2020-11-03 [facility] 1.2.840.114 [id number] Univers 13:46:00 14:31:02 Visit Nicole Handy 350.1.13.10 [place] [phone] [facility]. [facility] 204 [facility] 2020-11-03 2020-11-03 Office [facility] 1.2.840.114 [id number] Univers 13:46:00 14:31:02 Visit Nicole Handy 350.1.13.10 [place] [phone] De [facility]. [facility] 204 [facility] 2020-11-03 2020-11-03 Outpatient [facility] [id number] Univers 14:00:00 14:00:00 NICOLE goetz [facility] 2020-11-03 2020-11-03 Orders Doctor TOO 1.2.840.114 [id number] Univers 00:00:00 00:00:00 Only Unassigned, CADE 350.1.13.10 ity of [place] [facility] 4.2.7.2.686 Oren as [phone] [address] 2020-11-03 2020-11-03 Orders Doctor TOO 1.2.840.114 [id number] Univers 00:00:00 00:00:00 Only Unassigned, CADE 350.1.13.10 ity of [place] [facility] 4.2.7.2.686 Oren as [phone] [address] 2020-10-23 2020-10-23 Emergency [facility] 1.2.279.419 [id number] Univers 11:27:00 13:55:00 Jessica Langley 350.1.13.10 i ty of [place] 4.2.7.2.686 [facility] [phone] [place] [id number] [place] 2020-10-22 2020-10-22 Office [facility] 1.2.840.114 [id number] Univers 08:27:33 09:25:24 Visit [facility] 350.1.13.10 it y of [place] 4.2.7.2.686 Oren as Professio [phone] De dical nal 044 [place] [address] [facility] 2020-10-22 2020-10-22 Outpatient [facility] [id number] Univers 08:30:00 08:30:00 JOSE JUAN ity of [facility] 2020-10-16 2020-10-16 Emergency [facility] [id number] Univers 10:57:00 13:00:00 Cierra Handy 350.1.13.10 ity of [place] 4.2.7.2.686 [facility] [phone] [address] 2020-10-16 2020-10-16 Orders Doctor TOO 1.2.840.114 [id number] Univers 00:00:00 00:00:00 Only Unassigned, CADE 350.1.13.10 ity of [place] [facility] 4.2.7.2.686 Oren as [phone] [address] 2020-05-03 2020-05-03 Outpatient Young_J [facility] [id number] [place] 10:34:00 10:34:00 0[facility] Results Test Description Test Time Test Comments Results Result Comments Source Comprehensive metabolic panel 2022-08-11 15:41:00 Test Item Value Reference Range Interpretation Comme nts Glucose (test code = 183 mg/dL 70-99 H 2345-7) BUN (test code = 3094-0) 15 mg/dL 8-27 Creatinine (test code = 0.82 mg/dL 0.76-1.27 2160-0) eGFR (test code = 81343-8) 95 mL/min/1.73 >=59 BUN/creatinine ratio (test 18 10-24 code = 3097-3) Sodium (test code = 143 mmol/L 407-546 9965-2) Potassium (test code = 4.3 mmol/L 3.5-5.2 2823-3) Chloride (test code = 102 mmol/L 96-106 2075-0) CO2 (test code = 2027-9) 26 mmol/L 20-29 Calcium (test code = 9.4 mg/dL 8.6-10.2 48019-0) Protein (test code = 6.8 g/dL 6.0-8.5 2885-2) Albumin, S (test code = 4.0 g/dL 3.8-4.8 1751-7) Globulin, total (test code 2.8 g/dL 1.5-4.5 = 06867-7) Albumin/globulin ratio 1.4 1.2-2.2 (test code = 1759-0) Total bilirubin (test code 0.6 mg/dL 0.0-1.2 = 1974-2) Alkaline phosphatase (test 108 See_Comment [Automated message] code = 6768-6) The system [employer] generated this result transmitted ref erence range: 44 - 121 IU/L. The reference r carl was not used to int erpret this result as normal/abnormal . AST (test code = 1920-8) 38 See_Comment [A utomated message] The system [employer] generated this result transmitted ref erence range: 0 - 40 I U/L. The reference range was not used to interpr et this result as normal/abnormal . ALT (test code = 1742-6) 21 See_Comment [A utomated message] The system [employer] generated this result transmitted ref erence range: 0 - 44 I U/L. The reference range was not used to interpr et this result as normal/abnormal . NIKA (test code = NIKA) Performed at: [facility] [id number] Director: Skyler Clayton MD, Phone: [phone] Lab Interpretation (test Abnormal code = 35354-4) [facility] [id number] 15:41:00 Test Item Value Reference Range Interpretation Comments Cholesterol (test code = 122 mg/dL 174-115 7876-3) Triglycerides (test code 209 mg/dL 0-149 H = 2571-8) HDL cholesterol (test 50 mg/dL >=39 code = 2085-9) VLDL cholesterol drew 33 mg/dL 5-40 (test code = 92869-7) LDL Chol Calc (NIH) (test 39 mg/dL 0-99 code = 06739-8) Non-HDL cholesterol (test 72 mg/dL 0-129 code = 17603-4) NIKA (test code = NIKA) Performed at: - [facility] [id number] Director: Skyler Clayton MD, Phone: [phone] Lab Interpretation (test Abnormal code = 34744-1) [facility] natriuretic [id number] 15:41:00 Test Item Value Reference Range Interpretation Comments BNP (test code 27.5 pg/mL 0.0-100.0 Siemens ADVIA = 57898-6) [employer] methodology NIKA (test code Performed at: - = NIKA) [facility] [address] [id number] Director: Skyler Clayton MD, Phone: [phone] [facility] with platelet and [id number] 15:41:00 Test Item Value Reference Range Interpretation Comments WBC (test code = 6.5 See_Comment [Automated 5819-2) message] The system which generated this result transmitted reference range : 3.4 - 10.8 x10E3/uL. The reference range was not used to interpret this result as normal/abnormal . RBC (test code = 4.40 See_Comment [Automated 252-8) message] The system which generated this result transmitted reference range : 4.14 - 5.80 x10E6/uL. The reference range was not used to interpret this result as normal/abnormal . HGB (test code = 13.4 g/dL 13.0-17.7 718-7) HCT (test code = 41.5 % 37.5-51.0 4544-3) MCV (test code = 94 fL 79-97 787-2) MCH (test code = 30.5 pg 26.6-33.0 785-6) MCHC (test code = 32.3 g/dL 31.5-35.7 786-4) RDW (test code = 12.5 % 11.6-15.4 788-0) Platelet count (test 122 See_Comment L [Autom ated code = 777-3) message] The system which generated this result transmitted reference range : 150 - 450 x10E3/uL. The reference range was not used to interpret this result as normal/abnormal . Neutrophils (test 63 % Not Estab. code = 770-8) Lymphocytes (test 26 % Not Estab. code = 736-9) Monocytes (test code 6 % Not Estab. = 5905-5) Eosinophils (test 4 % Not Estab. code = 713-8) Basophils (test code 1 % Not Estab. = 706-2) Neutrophils, absolute 4.1 See_Comment [Auto mated (test code = 751-8) message] The system which generated this result transmitted reference range : 1.4 - 7.0 x10E3/uL. The reference range was not used to interpret this result as normal/abnormal . Lymphocytes, absolute 1.7 See_Comment [Auto mated (test code = 731-0) message] The system which generated this result transmitted reference range : 0.7 - 3.1 x10E3/uL. The reference range was not used to interpret this result as normal/abnormal . Monocytes, absolute 0.4 See_Comment [Automa ozzie (test code = 742-7) message] The system which generated this result transmitted reference range : 0.1 - 0.9 x10E3/uL. The reference range was not used to interpret this result as normal/abnormal . Eosinophils, absolute 0.3 See_Comment [Auto mated (test code = 711-2) message] The system which generated this result transmitted reference range : 0.0 - 0.4 x10E3/uL. The reference range was not used to interpret this result as normal/abnormal . Basophils, absolute 0.1 See_Comment [Automa ozzie (test code = 704-7) message] The system which generated this result transmitted reference range : 0.0 - 0.2 x10E3/uL. The reference range was not used to interpret this result as normal/abnormal . Immature granulocytes 0 % Not Estab. (test code = 72978-1) Immature 0.0 See_Comment [Automated granulocytes, message] The absolute (test code = system which 99725-5) generated this result transmitted reference range : 0.0 - 0.1 x10E3/uL. The reference range was not used to interpret this result as normal/abnormal . NIKA (test code = NKIA) Performed at: 01 - [address] [id number] Director: Skyler Clayton MD, Phone: [phone] Lab Interpretation Abnormal (test code = 83498-7) [facility] 12 [id number] 02:53:39 Test Item Value Reference Range Interpretation Comments Ventricular rate (test 84 code = 253) Atrial rate (test code 326 = 255) QRSD interval (test 190 code = 260) QT interval (test code 426 = 264) QTC interval (test code 503 = 265) P axis 1 (test code = 108 267) QRS axis 1 (test code = 86 268) T wave axis (test code 269 = 270) EKG impression (test AV dual-paced rhythm code = 273) with occasional premature ventricular complexes-Abnormal ECG-No previous ECGs available-Electronical ly Signed By Rebecca GARCIA, [facility] ([id number]) on 07/31/2022 9:53:37 PM [facility]icsProthrombin Time / [id number] 17:13:58 Test Item Value Reference Range Interpretation Comments PROTIME PATIENT (test See_Comment H [Auto mated message] code = 5964-2) The system wh ich generated this result transmitted ref erence range: 12.0 - 1 4.7 Seconds. The reference range was not used to int erpret this result as normal/abnormal . INR (test code = 6301-6) Nor mal INR <1.1; Warfarin Therap eutic range 2.0 to 3. 0 or 2.5 to 3.5, dep ending upon the indica tions. Lab Interpretation (test Abnormal code = 37735-3) [facility] [id number] 17:03:36 Test Item Value Reference Range Interpretation Comments NT-proBNP (test code 137 pg/mL See_Comment H [Autom ated = 9759490949) message] The system which generated this result transmitted reference range : <=125. The reference range was not used to interpret this result as normal/abnormal . NIKA (test code = NIKA) Biotin has been reported to cause a negative bias, interpret results relative to patient's use of biotin. Lab Interpretation Abnormal (test code = 27362-9) [facility] METABOLIC PANEL (NA, K, CL, CO2, GLUCOSE, BUN, CREATININE, CA)2022-02-22 16:57:08 Test Item Value Reference Range Interpretation Comments NA (test code = 139 mmol/L 135-145 4345581839) K (test code = 3.2 mmol/L 3.5-5.0 L 9300454080) CL (test code = 97 mmol/L 98-108 L 9677310865) CO2 TOTAL (test code = 32 mmol/L 23-31 H 1570536911) AGAP (test code = 2-16 7582137238) BUN (test code = 17 mg/dL 7-23 1113781361) GLUCOSE (test code = 333 mg/dL 70-110 H 7684102589) CREATININE (test code = 0.84 mg/dL 0.60-1.25 1911380096) CALCIUM (test code = 8.7 mg/dL 8.6-10.6 9374353509) eGFR (test code = mL/min/1.73m2 3556391536) NIKA (test code = NIKA) Association of [...] tests). Lab Interpretation Abnormal (test code = 06295-8) [facility] SARS-COV-2 ANTIGEN (BINAX NOW)2022-02-01 17:19:00 Test Item Value Reference Range Interpretation Comments POCT SARS-COV-2 ANTIGEN (test Not Detected Not Detected code = 31563-6) On board controls acceptable Yes with C Line (test code = 3574) [facility] SARS-COV-2 ANTIGEN (BINAX NOW)2022-02-01 17:19:00 Test Item Value Reference Range Interpretation Comments POCT SARS-COV-2 ANTIGEN (test Not Detected Not Detected code = 42503-8) On board controls acceptable Yes with C Line (test code = 3574) [facility] [id number] 02:24:20 Test Item Value Reference Interpretation Comments Range TROPONIN I (test 0.007 ng/mL See_Comment [Automated code = 3626001707) message] The system which generated this result [...] biotin. Lab Interpretation Normal (test code = 59544-5) [facility] [id number] 02:21:18 Test Item Value Reference Range Interpretation Comments NT-proBNP (test code 79 pg/mL See_Comment [Autom ated = 2810417722) message] The system which generated this result transmitted reference range : <=125. The reference range was not used to interpret this result as normal/abnormal . NIKA (test code = NIKA) Biotin has been reported to cause a negative bias, interpret results relative to patient's use of biotin. Lab Interpretation Normal (test code = 48405-1) [facility]2022-[facility]-18 02:12:18 Test Item Value Reference Range Interpretation Comments MAGNESIUM (test code = 7374339276) 1.9 mg/dL 1.7-2.4 Lab Interpretation (test code = Normal 70138-1) [facility]. METABOLIC PANEL (43558)2022-01-27 02:11:58 Test Item Value Reference Range Interpretation Comments NA (test code = 138 mmol/L 135-145 0676157862) K (test code = 3.4 mmol/L 3.5-5.0 L 6253735136) CL (test code = 97 mmol/L 98-108 L 9471311053) CO2 TOTAL (test code = 36 mmol/L 23-31 H 7115871006) AGAP (test code = 2-16 2570715910) BUN (test code = 17 mg/dL 7-23 9608182469) GLUCOSE (test code = 267 mg/dL 70-110 H 7288325705) CREATININE (test code = 0.96 mg/dL 0.60-1.25 0905840866) TOTAL BILI (test code = 0.9 mg/dL 0.1-1.7 3551332201) CALCIUM (test code = 9.1 mg/dL 8.6-10.6 6073695756) T PROTEIN (test code = 6.9 g/dL 6.3-8.2 5181531983) ALBUMIN (test code = 4.1 g/dL 3.5-5.0 9334787343) ALK PHOS (test code = 125 U/L 34-122 H 3223969556) ALTv (test code = 24 U/L 5-50 1742-6) AST(SGOT) (test code = 46 U/L 13-40 H 3358124871) eGFR (test code = mL/min/1.73m2 0786681659) NIKA (test code = NIKA) Association of [...] tests). Lab Interpretation Abnormal (test code = 06987-7) [facility] WITH [id number] 01:37:37 Test Item Value Reference Range Interpretation Comments WBC (test code = See_Comment [Automated 8165-2) message] The sy stem which generated this result transmitted reference range : 4.20 - 10.70 10*3/?L. The reference range was not used to interpret this result as normal/abnormal . RBC (test code = See_Comment L [Automated 179-9) message] The sy stem which generated this [...] RDW-SD (test code = 44.4 fL 38.5-51.6 05851-9) RDW-CV (test code = 13.2 % 12.1-15.4 788-0) PLT (test code = See_Comment L [Automated 777-3) message] The sy stem which generated this result transmitted reference range : 150 - 328 10*3/ ?L. The reference r carl was not used to interpret this result as normal/abnormal . MPV (test code = 10.7 fL 9.8-13.0 58625-8) IPF % (test code = 3.9 % 1.2-10.7 Platelet count 7101248959) measured by fluorescence method. NRBC/100 WBC (test See_Comment [Automat ed code = 9252859706) message] The system which generated this result transmitted reference range : 0.0 - 10.0 /100 WBCs. The refer ence range was not u sed to interpret th is result as normal/abnormal . NRBC x10^3 (test code See_Comment [Auto mated = 5144497438) message] The s ystem which generated this result transmitted reference range : 10*3/?L. The reference range was not used to interpret this result as normal/abnormal . GRAN MAT (NEUT) % 62.5 % (test code = 770-8) IMM GRAN % (test code 0.30 % = 7153843568) LYMPH % (test code = 27.4 % 736-9) MONO % (test code = 6.7 % 5905-5) EOS % (test code = 2.4 % 713-8) BASO % (test code = 0.7 % 706-2) GRAN MAT x10^3(ANC) 4.35 10*3/uL 1.99-6.95 (test code = 5081103718) IMM GRAN x10^3 (test 0.00-0.06 code = 3223580523) LYMPH x10^3 (test code 1.91 10*3/uL 1.09-3.23 = 731-0) MONO x10^3 (test code 0.47 10*3/uL 0.36-1.02 = 742-7) EOS x10^3 (test code = 0.17 10*3/uL 0.06-0.53 711-2) BASO x10^3 (test code 0.05 10*3/uL 0.01-0.09 = 704-7) Lab Interpretation Abnormal (test code = 08000-1) [facility]1C [id number] 20:05:00 Test Item Value Reference Range Interpretation Comments POCT HBA1C (test code = 4548-4) 6.3 % 4-6 A Lab Interpretation (test code = Abnormal 31497-8) [id number] 13:12:00Surgical Pathology Report Case: [id number] Authorizing Provider: Donn Mahoney MD Collected: 07/18/2016 0909 Ordering Location: [facility] PERIOPERATIVE Received: 07/18/2016 1120 SERVICES Pathologist: Aaron Chang MD Specimen: Soft Tissue, Other, id only explant hardware 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 Serial number is [id number]. The specimen is submitted for gross identification. [...] 520) < /HPF SOURCE(BEAKER) (test code = 2795) BASIC METABOLIC [id number] 13:01:00 Test Item Value Reference Range Interpretation [...] NOT APPLICABLE FOR DIALYSIS PATIEN TS. PROTHROMBIN TIME/[id number] 12:56:00 Test Item Value Reference Range Interpretation Comments PROTIME (BEAKER) (test code = 13.5 seconds 11.7-14.7 759) INR (BEAKER) (test code = 370) 1.0 <=5.9 RECOMMENDED COUMADIN/WARFARIN INR THERAPY RANGESSTANDARD DOSE: 2.0 - 3.0 Includes: PROPHYLAXIS for venous thrombosis, systemic embolization; TREATMENT for venous thrombosis and/or pulmonary embolus.HIGH RISK: Target INR is 2.5-3.5 for patients with mechanical heart valves.[id number] 12:56:00 Test Item Value Reference Range Interpretation Comments PARTIAL THROMBOPLASTIN TIME 32.0 seconds 22.5-36.0 (BEAKER) (test code = 760) CBC W/PLT COUNT & AUTO [id number] 12:48:00 Test Item Value Reference Range Interpretation [...]
[2022-08-22] MEDS ORDERED: SMZ./TMP. 800/160 MG TABLET ONE (20:05)
[2022-08-22] MEDS ORDERED: DOXYCYCLINE 100 MG CAP PO ONE (20:06)
[2022-08-22 20:15] VITALS: BP 156/80; TEMP 97.5; O2SAT 99
== END 2022-08-22 20:04 | disposition home or self-care (01) ==
LOC: ER 19:37
DX: L03.115 Cellulitis of right lower limb (principal); Z88.0 Allergy status to penicillin
CPT/HCPCS: 99283

== ENCOUNTER 2022-12-17 11:02 | Emergency (ER) | payer MEDICARE ==
--- OUTSIDE RECORDS SUMMARY | 2022-12-17 11:22 | XMS REPORT | Continuity of Care Document ---
:1950 Author Organization [facility] t Address [address] [facility] [place] [address] Support Name Relationship Address Phone Gretta Joe E [address] [place] [address] GRETTA JOE P [phone] [place] [address] Gretta Joe Spouse [address] [phone] [place] [address] Gretta Joe Spouse [address] [phone] [place] [address] Gretta Joe Spouse [address] [place] [address] GRETTA JOE X [address] [phone] [place] [address] ABHIJEET ARVIZU L X [address] [place] [address] L Abhijeet Arvizu Spouse [address] [phone] [place] [address] Care Team Providers Name Role Phone Jose Juan Gonsalez MD Primary Care Physician [phone] NEHA SEN Attending Clinician Unavailable Michael Chiu Attending Clinician Janay Yi MD Attending Clinician Danica Chen LVN Attending Clinician Unavailable Jose Juan Gonsalez MD Attending Clinician Pamella Boucher MA Attending Clinician Unavailable Raul Attending Clinician Unavailable Iris Henning RN Attending Clinician Unavailable Ratna Urias MA Attending Clinician Unavailable Kassidy GARCIA, Kassidy Joshi Attending Clinician Edith GARCIA, Alfred Walker Attending Clinician JOON WOODY K.H. Attending Clinician Unavailable Marshall GARCIA, Olimpia Odonnell Attending Clinician Mally Handley MA Attending Clinician Unavailable Quang GARCIA, Jackie Attending Clinician Nichol Neil RN Attending Clinician Unavailable Olivier GARCIA PhD, Basilio Alexis Attending Clinician Scottie Erwin Attending Clinician LUIS BURGESS Attending Clinician Unavailable Doctor Unassigned, Liberal Attending Clinician Unavailable Sandra Goff Attending Clinician Liss Cardenas Attending Clinician Luis Burgess MD Attending Clinician Annalise GARCIA, Sendsissy K.H. Attending Clinician Juvencio Luna MD Attending Clinician CATIE HILL Attending Clinician Unavailable CATIE HILL Attending Clinician Unavailable 2, Adc Lab Attending Clinician Unavailable JOSE JUAN GONSALEZ Attending Clinician Unavailable Jessica Hewitt MD Attending Clinician RADIOLOGY Attending Clinician Unavailable Radiology Attending Clinician Unavailable Arleth [facility], Fercho Erazo Attending Clinician [phone] GERA FREEMAN Attending Clinician Unavailable Gus Owens MD Attending Clinician GUS OWENS Attending Clinician Unavailable Pete ARTEAGAP- Gera GAINES Attending Clinician [phone] SCOTTIE HALE Attending Clinician Unavailable Val Love DO Attending Clinician Calvin Castro Attending Clinician Draw, Clc-Bls Lab Attending Clinician Unavailable CALVIN FLORES Attending Clinician Unavailable Lorraine Galarza RN Attending Clinician Unavailable HANNAH WOOD Attending Clinician Unavailable JUVENCIO LUNA Attending Clinician Unavailable JUVENCIO LUNA Attending Clinician Unavailable Morgan Mac MD Attending Clinician Unavailable MORGAN MAC Attending Clinician Unavailable Only, Adc Test Attending Clinician Unavailable Wild Kamara MD Attending Clinician Kiah GARCIA, Marko Attending Clinician Vls-Lab Attending Clinician Unavailable MARKO DUPONT Attending Clinician Unavailable Unknown, Attending Attending Clinician Unavailable Aftab Hall Attending Clinician Yue GARCIA, Karan Mims Attending Clinician KARAN WORRELL Attending Clinician Unavailable Savana Angel LVN Attending Clinician Unavailable Beata Henry RN Attending Clinician Unavailable POPPY CLARKE Attending Clinician Unavailable Maurice BURGESS, K Sydnee Attending Clinician Moe Solorio MD Attending Clinician Poppy Clarke DO Attending Clinician Jay Jay Garcia DO Attending Clinician Hardik Kate MD Attending Clinician JESSICA HEWITT Attending Clinician Unavailable Lab, Ang - Db Attending Clinician Unavailable SHANNON ELY Attending Clinician Unavailable Nicolette Chen Attending Clinician Shannon Ely MD Attending Clinician NELLA MURPHY Attending Clinician Unavailable Nella Murphy MD Attending Clinician [phone] Angel Luis Dia Attending Clinician ANGEL LUIS RODRIGUEZ Attending Clinician Unavailable MEHNAZ RODRIGUEZ Attending Clinician Unavailable MEHNAZ RODRIGUEZ Attending Clinician Unavailable Mehnaz Rodriguez DO Attending Clinician Jennifer Sebastian MD Attending Clinician [phone] NICOLE WOMACK A Attending Clinician Unavailable Nicole Waite A Attending Clinician MOE SOLORIO Attending Clinician Unavailable Vickey Montejo MD Attending Clinician [phone] Abad Blue MD Attending Clinician Provider, Clc Ep Lab Attending Clinician Unavailable Anesthesia, Clc Ep Lab Attending Clinician Unavailable VICKEY MONTEJO Attending Clinician Unavailable Call, Clc Apac Phone Attending Clinician Unavailable Hua DE LA GARZA, Cierra Heart Attending Clinician Weston Attending Clinician Unavailable DONN MAHONEY Attending Clinician Unavailable NEHA SEN Admitting Clinician Unavailable Ogbechie_L Admitting Clinician Unavailable CATIE HILL Admitting Clinician [...] Date S ource MEDICARE PART A \\T\\ [id number] 2001 B 00:00[facility]22 (MEDICARE 00:00:00 REPLACEMENT HMO) RU/OMER [id number] 2021 MEDICARE ADVANTAGE 00:00:00 Problems Condition Condition Condition Status Onset Resolution Last Treating Co mments Source Name Details Category Date Date Treatment Clinician Date Paroxysmal Paroxysmal Disease Active M ethodi atrial atrial 8-04 st fibrillati fibrillati 00:00: Ho spita on on 00 l S/p dual S/p dual Disease Active Metho di chamber chamber 5-31 st pacemaker pacemaker 00:00: Hosp radha implant implant 00 l (CHANDLER (SJM, implanted implanted 2012 in 2012 in [place] Diarrhea, Diarrhea, Disease Active Uni vers unspecifie unspecifie 6-23 it y of d type d type 00:00: [place] 00 Medical Branch Streptococ Streptococ Disease Active U nivers cus cus 6-23 ity of agalact[place] 00 [facility] Branch Sepsis due Sepsis due Disease Active U nivers to to 6-23 ity of Streptococ Streptococ [place] c[place] group cus group 00 [facility] D D Branch 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 6-23 ity of of liver of liver 00:00: [place] without without 00 Medical ascites ascites Branch Other Other Disease Active Univers cirrhosis cirrhosis 6- ity of of liver of liver 00:00: [place] 00 Medical Branch Need for Need for Disease Active Unive rs hepatitis hepatitis 6-23 ity of C C 00:00: [place] screening screening 00 [facility] test test Branch Elevated Elevated Disease Active Unive rs SGOT (AST) SGOT (AST) 6-23 it y of 00:00: [place] 00 Medical Branch Bacteremia Bacteremia Disease Active U nivers 5-02 ity of 00:00: [place] 00 Medical Branch ANDRESSA (acute ANDRESSA (acute [...] Medical defibrilla defibrilla Br anch tor tor (BARREL TESTER-D) in (BARREL TESTER-D) in place place PAF PAF Disease Active [...] testing [facility]10 [facility] [place] Chronic Chronic Disease Active [facility] disorder disorder 00:[facility]: Medica l 00 Center Acute on Acute on Disease Active Unive rs chronic chronic 5-04 ity of combined combined 00:00: [place] systolic systolic 00 Medica l and and Branch diastolic diastolic heart heart failure failure Essential Essential Disease Active Uni vers hypertensi hypertensi 5-04 it y of on on 00:00: [place] 00 [facility] Branch PVC PVC Disease Active Univers (premature [...] Uni vers 4-11 ity of 00:00: [place] 00 Medical Branch Photophobi Photophobi Disease Active U nivers a a 4-11 ity of 00:00: [place] 00 Medical Branch Blurry Blurry Disease Active Univers vision vision 4-11 ity of 00:00: [place] 00 Medical Branch Hypotensio Hypotensio Disease Active U nivers n n 4-11 ity of 00:00: [place] 00 Medical Branch 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:00: [place] diastolic diastolic 00 [facility] heart heart Branch failure failure CHF CHF Disease Active Univers exacerbati exacerbati 4-10 it y of on on 00:00: [place] [facility] Hypoxia Hypoxia Disease Active Univers 4-07 ity of 00:00: [place] [facility] COPD COPD Disease Active Univers [...] ies Gastroesop Gastroesop Disease Active 2014-03 U christi hageal hageal 1-16 ity of reflux reflux 00:00: [place] disease, disease, 00 Medica l unspecifie unspecifie Br anch d whether d whether esophagiti esophagiti s present s present Generalize Generalize Disease Active 2014-03 U christi d anxiety d anxiety 1-16 ity of disorder disorder 00:00: [place] 00 Medical Branch Gout Gout Disease Active 2014-03 Univers 1-16 ity of 00:00: [place] 00 Medical Branch Hyperlipid Hyperlipid Disease Active 2014-03 U christi emia emia 1-16 ity of 00:00: [place] 00 Medical Branch Restless Restless Disease Active 2014-03 Unive rs leg leg 1-16 ity of syndrome syndrome 00:00: [place] 00 Medical Branch Hypertensi Hypertensi Disease Active 2014-03 U nivers on on 03-27 ity of 00:00: [place] 00 Medical Branch Allergies, Adverse Reactions, Alerts [...] Swelling 2014-03 Meth linda ins ty to 03-17 st adverse 00:00: Hospita reaction 00 l s to drug Penicill Propensi Active Shortness of 2014-03 Univers in ty to Breath 03-17 ity of adverse 00:00: [place] reaction 00 Medical s Branch PENICILL DRUG Active Anaphylaxis 2014-03 Uni vers IN INGREDI 03-17 ity of 00:00: [place] [address] Medical Branch Family History Family Member Diagnosis Comments Start Date Stop Date Source Natural mother [facility] Social History Social Habit Start Date Stop Date Quantity Comments Source Gender identity [facility] History of tobacco Current smoker [facility] [place] History of Social 2022-11-23 2022-11-[address] function 00:00:00 00:00:00 Hospital Cigarettes smoked 2022-07-31 2022-07-[address] current (pack per 00:00:00 00:00:00 Hospita l day) - Reported Cigarette 2022-07-31 2022-07-31 [facility] pack-years 00:00:00 00:00:00 Hospital Tobacco use and 2022-07-31 2022-07-31 Smokeless Yarsanism exposure 00:00:00 00:00:00 tobacco non-user Hospital Alcohol Comment 2022-07-31 2022-07-31 social Yarsanism 00:00:00 00:00:00 Hospital Exposure to 2022-02-28 2022-03-10 Not sure University of SARS-CoV-2 (event) 00:00:00 10:38:00 [facility] Education 2021-06-14 2021-06-14 14 [facility] 00:00:00 00:00:00 [facility] Alcohol intake 2016-07-18 2016-07-18 Current drinker PERLA Ritter 00:00:00 00:00:00 of [facility] (finding) Sex Ass[birth year] At [birth year] Benito Castillo kes 00:00:00 00:00:00 [facility] Smoking Status Start Date Stop Date Source Tobacco smoking consumption [facility] unknown Ex-smoker 2022-07-31 00:00:00 2022-07-31 00:00:00 [facility] [place] [facility] Medications Ordered Filled Start Stop Current Ordering Indication Dosage Frequency Signature Comments Components Source Medication Medication Date Date Medication? Clinician (SIG) Name Name SERTraline Yes [id number] 100mg TAKE 1 Univers 100 mg 9-20 TABLET BY ity of tablet 00:00: MOUTH IN [address] MORNING Branch AND IN THE EVENING gemfibroziL Yes 600mg Take 1 Met hodi (LOPID) 600 9-[address] MG tablet 10:01: (600 mg Hospi ta 27 total) by l mouth. sacubitriL- Yes 1{tbl} Q.5D Take 1 Me thodi valsartan 9-[address] (Entresto) 00:00: mouth 2 Hosp radha 97-103 mg 00 (two) l tablet per times a tablet day. GABAPENTIN Yes [id number] TAKE 1 Univers 300 mg 7-24 CAPSULE BY ity of capsule 00:00: MOUTH IN [address] MORNING [place] AND IN THE EVENING GABAPENTIN 0 Yes [id number] TAKE 1 Univers 300 mg 7-24 CAPSULE BY ity of capsule 00:00: MOUTH IN [address] MORNING [place] AND IN THE EVENING sacubitriL- 0 Yes 1{tbl} Q.5D Take 1 Me thodi valsartan 7-[address] (Entresto) 00:00: mouth 2 Hosp radha 49-51 mg 00 (two) l tablet per times a tablet day. sacubitriL- 0 2022- No 1{tbl} Q.5D Take 1 M ethodi valsartan 7-05 08-[address] [facility]) 00:00: 00:00 mouth 2 Hos benjy 24-26 mg 00 :00 (two) l tablet per times a tablet day. gemfibroziL 3-0 Yes 600mg Take 1 Met hodi (LOPID) 600 5-[address] MG tablet 13:15: (600 mg Hospi ta 16 total) by l mouth. sacubitriL- 3-0 Yes 1{tbl} Q.5D Take 1 Me thodi valsartan 5-[address] ([facility]) 00:00: mouth 2 Hosp radha 24-26 mg 00 (two) l tablet per times a tablet day. sacubitriL- 2023-0 2023- No 1{tbl} Q.5D Take 1 M ethodi valsartan 5-22 07-[address] ([facility]) 00:00: 00:00 mouth 2 Hos benjy 24-26 mg 00 :00 (two) l tablet per times a tablet day. GABAPENTIN 2022-0 Yes [id number] TAKE 1 Univers 300 mg 5-18 CAPSULE BY ity of capsule 00:00: MOUTH IN [place] 00 THE Medical MORNING Branch AND IN THE EVENING GABAPENTIN 2023-0 2023- No [id number] TAKE 1 Univers 300 mg 5-18 07-24 CAPSULE BY ity of capsule 00:00: 00:00 MOUTH IN [place] 00 :00 THE [facility] MORNING Branch AND IN THE EVENING nystatin 3-0 Yes APPLY UP Metho di (Nystop) 4-[address] 100,000 00:00: TIMES Hospita unit/gram 00 DAILY TO l powder AFFECTED AREAS ON TRUNK nystatin 2022-0 Yes APPLY UP Metho di (Nystop) 4-[address] 100,000 00:00: TIMES Hospita unit/gram 00 DAILY TO l powder AFFECTED AREAS ON TRUNK nystatin 3-0 Yes APPLY BY Metho di (MYCOSTATIN 4-[address] ) 100,000 00:00: ROUTE Hospita unit/gram 00 THREE l cream TIMES DAILY nystatin 3-0 Yes APPLY BY Metho di (MYCOSTATIN 4-[address] ) 100,000 00:00: ROUTE Hospita unit/gram 00 THREE l cream TIMES DAILY mexiletine 3-0 Yes [id number] 200mg Take 1 Univers 200 mg 4-17 capsule by ity of capsule 00:00: mouth [place] 00 every 8 Medical (eight) Branch hours. mexiletine 3-0 Yes [id number] 200mg Take 1 Univers 200 mg 4-17 capsule by ity of capsule 00:00: mouth [place] 00 every 8 Medical (eight) Branch hours. mexiletine 3-0 Yes [id number] 200mg Take 1 Univers 200 mg 4-17 capsule by ity of capsule 00:00: mouth [place] 00 every 8 Medical (eight) Branch hours. mexiletine 3-0 Yes [id number] 200mg Take 1 Univers 200 mg 4-17 capsule by ity of capsule 00:00: mouth [place] 00 every 8 Medical (eight) Branch hours. mexiletine 3-0 Yes [id number] 200mg Take 1 Univers 200 mg 4-17 capsule by ity of capsule 00:00: mouth [place] 00 every 8 Medical (eight) Branch hours. mexiletine 3-0 Yes [id number] 200mg Take 1 Univers 200 mg 4-17 capsule by ity of capsule 00:00: mouth [place] 00 every 8 Medical (eight) Branch hours. mexiletine 3-0 Yes [id number] 200mg Take 1 Univers 200 mg 4-17 capsule by ity of capsule 00:00: mouth [place] 00 every 8 Medical (eight) Branch hours. ATORVASTATI 2022-0 Yes [id number] 40mg TAKE 1 Univers N 40 mg 4-12 TABLET BY ity of tablet 00:00: MOUTH AT [address] Branch ATORVASTATI 2022-0 Yes [id number] 40mg TAKE 1 Univers N 40 mg 4-12 TABLET BY ity of tablet 00:00: [address]OUTH [address] [facility] Branch ATORVASTATI 2022-0 Yes [id number] 40mg TAKE 1 Univers N 40 mg 4-12 TABLET BY ity of tablet 00:00: MOUTH AT [address] Branch ATORVASTATI 2022-0 Yes [id number] 40mg TAKE 1 Univers N 40 mg 4-12 TABLET BY ity of tablet 00:00: MOUTH AT [address] Branch ATORVASTATI 2022-0 Yes [id number] 40mg TAKE 1 Univers N 40 mg 4-12 TABLET BY ity of tablet 00:00: MOUTH AT [address] Branch ATORVASTATI 2023-0 Yes [id number] 40mg TAKE 1 Univers N 40 mg 4-12 TABLET BY ity of tablet 00:00: MOUTH AT [place] [address] BEDTIME Medical Branch ATORVASTATI 3-0 Yes [id number] 40mg TAKE 1 Univers N 40 mg 4-12 TABLET BY ity of tablet 00:00: MOUTH AT [place] [address] BEDTIME Medical Branch ATORVASTATI 2023-0 Yes [id number] 40mg TAKE 1 Univers N 40 mg 4-12 TABLET BY ity of tablet 00:00: MOUTH AT [place] [address] [facility] allopurinoL 3-0 Yes [id number] 300mg Take 1 Univers 300 mg 4-04 tablet by ity of tablet 00:00: mouth in [place] the Medical morning. Branch allopurinoL 3-0 Yes [id number] 300mg Take 1 Univers 300 mg 4-04 tablet by ity of tablet 00:00: mouth in [place] the Medical morning. Branch allopurinoL 3-0 Yes [id number] 300mg Take 1 Univers 300 mg 4-04 tablet by ity of tablet 00:00: mouth in [place] the Medical morning. Branch allopurinoL 3-0 Yes [id number] 300mg Take 1 Univers 300 mg 4-04 tablet by ity of tablet 00:00: mouth in [place] the Medical morning. Branch allopurinoL 3-0 Yes [id number] 300mg Take 1 Univers 300 mg 4-04 tablet by ity of tablet 00:00: mouth in [place] the Medical morning. Branch allopurinoL 3-0 Yes [id number] 300mg Take 1 Univers 300 mg 4-04 tablet by ity of tablet 00:00: mouth in [place] the Medical morning. Branch allopurinoL 3-0 Yes [id number] 300mg Take 1 Univers 300 mg 4-04 tablet by ity of tablet 00:00: mouth in [place] the Medical morning. Branch allopurinoL 2023-0 Yes [id number] 300mg Take 1 Univers 300 mg 4-04 tablet by ity of tablet 00:00: mouth in [place] the Medical morning. Branch allopurinoL 2023-0 Yes [id number] 300mg Take 1 Univers 300 mg 4-04 tablet by ity of tablet 00:00: mouth in [place] the Medical morning. Branch carvediloL 3-0 Yes 6.25mg Q.5D Take 1 Met hodi (COREG) 3-[address] 6.25 MG 00:00: (6.25 mg Hospit a tablet 00 total) by l mouth 2 (two) times a day with meals. spironolact 2023-0 Yes 25mg QD Take 1 Meth linda one 3-27 tablet (25 st (ALDACTONE) 00:00: mg total) H ospita 25 MG 00 by mouth l tablet every morning. carvediloL 2023-0 Yes 6.25mg Q.5D Take 1 Met hodi (COREG) 3-[address] 6.25 MG 00:00: (6.25 mg Hospit a tablet 00 total) by l mouth 2 (two) times a day with meals. spironolact 2023-0 Yes 25mg QD Take 1 Meth linda one 3-27 tablet (25 st (ALDACTONE) 00:00: mg total) H ospita 25 MG 00 by mouth l tablet every morning. GABAPENTIN 2023-0 Yes [id number] TAKE 1 Univers 300 mg 3-20 CAPSULE BY ity of capsule 00:00: MOUTH IN [address] MORNING [place] AND IN THE EVENING GABAPENTIN 2023-0 Yes [id number] TAKE 1 Univers 300 mg 3-20 CAPSULE BY ity of capsule 00:00: MOUTH IN [address] MORNING [place] AND IN THE EVENING GABAPENTIN 2023-0 Yes [id number] TAKE 1 Univers 300 mg 3-20 CAPSULE BY ity of capsule 00:00: MOUTH IN [address] MORNING [place] AND IN THE EVENING GABAPENTIN 2023-0 Yes [id number] TAKE 1 Univers 300 mg 3-20 CAPSULE BY ity of capsule 00:00: MOUTH IN [address] MORNING [place] AND IN THE EVENING GABAPENTIN 2023-0 Yes [id number] TAKE 1 Univers 300 mg 3-20 CAPSULE BY ity of capsule 00:00: MOUTH IN [address] MORNING [place] AND IN THE EVENING GABAPENTIN 2023-0 Yes [id number] TAKE 1 Univers 300 mg 3-20 CAPSULE BY ity of capsule 00:00: MOUTH IN [address] MORNING [place] AND IN THE EVENING gabapentin 2023-0 Yes TAKE 1 Metho di (NEURONTIN) 3-[address] 300 mg 00:00: MOUTH IN [facility] 00 THE l MORNING AND IN THE EVENING gabapentin 2023-0 Yes TAKE 1 Metho di (NEURONTIN) 3-[address] 300 mg 00:00: MOUTH IN Hospita capsule 00 THE l MORNING AND IN THE EVENING GABAPENTIN 3-0 2023- No [id number] TAKE 1 Univers 300 mg 3-20 05-18 CAPSULE BY ity of capsule 00:00: 00:00 MOUTH IN [place] 00 :00 THE Medical MORNING Branch AND IN THE EVENING GABAPENTIN 3-0 2023- No [id number] TAKE 1 Univers 300 mg 3-20 05-18 CAPSULE BY ity of capsule 00:00: 00:00 MOUTH IN [place] 00 :00 THE Medical MORNING Branch AND IN THE EVENING KCL 20 mEq 2023-0 Yes [id number] TAKE 1 Univers tablet 3-17 TABLET BY ity of 00:00: MOUTH [place] 00 EVERY Medical MORNING Branch AND IN THE EVENING KCL 20 mEq 2023-0 Yes [id number] TAKE 1 Univers tablet 3-17 TABLET BY ity of 00:00: MOUTH [place] 00 EVERY Medical MORNING Branch AND IN THE EVENING KCL 20 mEq 2023-0 Yes [id number] TAKE 1 Univers tablet 3-17 TABLET BY ity of 00:00: MOUTH [place] 00 EVERY Medical MORNING Branch AND IN THE EVENING KCL 20 mEq 2023-0 Yes [id number] TAKE 1 Univers tablet 3-17 TABLET BY ity of 00:00: MOUTH [place] 00 EVERY Medical MORNING Branch AND IN THE EVENING KCL 20 mEq 2023-0 Yes [id number] TAKE 1 Univers tablet 3-17 TABLET BY ity of 00:00: MOUTH [place] 00 EVERY Medical MORNING Branch AND IN THE EVENING KCL 20 mEq 2023-0 Yes [id number] TAKE 1 Univers tablet 3-17 TABLET BY ity of 00:00: MOUTH [place] 00 EVERY Medical MORNING Branch AND IN THE EVENING KCL 20 mEq 2023-0 Yes [id number] TAKE 1 Univers tablet 3-17 TABLET BY ity of 00:00: MOUTH [place] 00 EVERY Medical MORNING Branch AND IN THE EVENING KCL 20 mEq 2023-0 Yes [id number] TAKE 1 Univers tablet 3-17 TABLET BY ity of 00:00: MOUTH [place] 00 EVERY Medical MORNING Branch AND IN THE EVENING KCL 20 mEq 2023-0 Yes [id number] TAKE 1 Univers tablet 3-17 TABLET BY ity of 00:00: MOUTH [place] 00 EVERY Medical MORNING Branch AND IN THE EVENING KCL 20 mEq 2023-0 Yes [id number] TAKE 1 Univers tablet 3-17 TABLET BY ity of 00:00: MOUTH [place] 00 EVERY Medical MORNING Branch AND IN THE EVENING KCL 20 mEq 3-0 Yes [id number] TAKE 1 Univers tablet 3-17 TABLET BY ity of 00:00: MOUTH [place] 00 EVERY Medical MORNING Branch AND IN THE EVENING KCL 20 mEq 2023-0 Yes [id number] TAKE 1 Univers tablet 3-17 TABLET BY ity of 00:00: MOUTH [place] 00 EVERY Medical MORNING Branch AND IN THE EVENING KCL 20 mEq 2023-0 Yes [id number] TAKE 1 Univers tablet 3-17 TABLET BY ity of 00:00: MOUTH [place] 00 EVERY Medical MORNING Branch AND IN THE EVENING omeprazole 2023-0 Yes 40mg QD Take 1 Metho di [...] st 5 MG tablet 00:00: MOUTH ON l /Sun/SUNDAY primidone 2022-0 Yes Q8H Take by Metho di (MYSOLINE) 3-[address] 50 MG 00:00: every 8 Hospita tablet 00 (eight) l hours. omeprazole 2022-0 Yes 40mg QD Take 1 [...] st 5 MG tablet 00:00: MOUTH ON spi l /Sun/SUNDAY primidone 3-0 Yes Q8H Take by Metho di (MYSOLINE) 3-[address] 50 MG 00:00: every 8 Hospita tablet 00 (eight) l hours. semaglutide 2022-0 Yes 1{tbl} Take 1 Me thodi (Rybelsus) 3-[address] 7 mg tablet 00:00: mouth. Hosp radha 00 l semaglutide 2022-0 Yes 1{tbl} Take 1 Me thodi (Rybelsus) 3-[address] 7 mg tablet 00:00: mouth. Hosp radha 00 l triamcinolo 2022-0 Yes APPLY A Met hodi ne 3-[address] (KENALOG) 00:00: TO THE Hospit a 0.1 % cream 00 AFFECTED l AREA ON ARMS TWICE DAILY FOR 2 WEEKS TO A MONTH triamcinolo 2022-0 Yes APPLY A Met hodi ne 3-[address] (KENALOG) 00:00: TO THE Hospit a 0.1 % cream 00 AFFECTED l AREA ON ARMS TWICE DAILY FOR 2 WEEKS TO A MONTH ALLOPURINOL 2022-0 Yes [id number] 300mg TAKE 1 Univers 300 mg 2-27 TABLET BY ity of tablet 00:00: MOUTH [place] 00 DAILY Medical Branch ALLOPURINOL 3-0 Yes [id number] 300mg TAKE 1 Univers 300 mg 2-27 TABLET BY ity of tablet 00:00: MOUTH [place] 00 DAILY Medical Branch ALLOPURINOL 2023-0 Yes [id number] 300mg TAKE 1 Univers 300 mg 2-27 TABLET BY ity of tablet 00:00: MOUTH [place] 00 DAILY Medical Branch ALLOPURINOL 3-0 Yes [id number] 300mg TAKE 1 Univers 300 mg 2-27 TABLET BY ity of tablet 00:00: MOUTH [place] 00 DAILY Medical Branch ALLOPURINOL 2023-0 Yes [id number] 300mg TAKE 1 Univers 300 mg 2-27 TABLET BY ity of tablet 00:00: MOUTH [place] 00 DAILY Medical Branch ALLOPURINOL 2023-0 2023- No [id number] 300mg TAKE 1 Univers 300 mg 2-27 04-04 TABLET BY ity of tablet 00:00: 00:00 MOUTH [place] 00 :00 DAILY Medical Branch mexiletine 3-0 Yes 200mg Q8H Take 1 Meth linda (MEXITIL) 2-[address] 200 MG 00:00: (200 mg Hospita capsule 00 total) by l mouth every 8 (eight) hours. [facility] Yes TAKE 1 Metho di mg tablet 2-[address] 00:00: MOUTH 1 Hospita 00 TIME EACH l DAY IN THE MORNING FOR DIABETES mexiletine 2022-0 Yes 200mg Q8H Take 1 Meth linda (MEXITIL) 2-[address] 200 MG 00:00: (200 mg Hospita capsule 00 total) by l mouth every 8 (eight) hours. [facility] Yes TAKE 1 Metho di mg tablet 2-[address] 00:00: MOUTH 1 Hospita 00 TIME EACH l DAY IN THE MORNING FOR DIABETES WARFARIN 2022-0 Yes [id number] 7.5mg TAKE 1 U nivers 7.5 mg 1-19 TABLET BY ity of tablet 00:00: MOUTH [place] 00 EVERY Medical EVENING Branch WARFARIN 2023-0 Yes [id number] 7.5mg TAKE 1 U nivers 7.5 mg 1-19 TABLET BY ity of tablet 00:00: MOUTH [place] 00 EVERY Medical EVENING Branch WARFARIN 2023-0 Yes [id number] 7.5mg TAKE 1 U nivers 7.5 mg 1-19 TABLET BY ity of tablet 00:00: MOUTH [place] 00 EVERY Medical EVENING Branch WARFARIN 2023-0 Yes [id number] 7.5mg TAKE 1 [facility] 7.5 mg 1-19 TABLET BY [facility] tablet 00:00: MOUTH [place] 00 EVERY Medical EVENING Branch WARFARIN 2023-0 Yes [id number] 7.5mg TAKE 1 [facility] 7.5 mg 1-19 TABLET BY [facility] tablet 00:00: MOUTH [place] 00 EVERY Medical EVENING Branch WARFARIN 2023-0 Yes [id number] 7.5mg TAKE 1 [facility] 7.5 mg 1-19 TABLET BY [facility] tablet 00:00: MOUTH [place] 00 EVERY Medical EVENING Branch WARFARIN 2023-0 Yes [id number] 7.5mg TAKE 1 [facility] 7.5 mg 1-19 TABLET BY [facility] tablet 00:00: MOUTH [place] 00 EVERY Medical EVENING Branch WARFARIN 2023-0 Yes [id number] 7.5mg TAKE 1 [facility] 7.5 mg 1-19 TABLET BY [facility] tablet 00:00: MOUTH [place] 00 EVERY Medical EVENING Branch WARFARIN 2023-0 Yes [id number] 7.5mg TAKE 1 [facility] 7.5 mg 1-19 TABLET BY [facility] tablet 00:00: MOUTH [place] 00 EVERY Medical EVENING Branch WARFARIN 2023-0 Yes [id number] 7.5mg TAKE 1 [facility] 7.5 mg 1-19 TABLET BY [facility] tablet 00:00: MOUTH [place] 00 EVERY Medical EVENING Branch WARFARIN 2023-0 Yes [id number] 7.5mg TAKE 1 [facility] 7.5 mg 1-19 TABLET BY [facility] tablet 00:00: MOUTH 00 EVERY Medical EVENING Branch WARFARIN 2023-0 Yes [id number] 7.5mg TAKE 1 [facility] 7.5 mg 1-19 TABLET BY [facility] tablet 00:00: MOUTH 00 EVERY Medical EVENING Branch WARFARIN 2023-0 Yes [id number] 7.5mg TAKE 1 [facility] 7.5 mg 1-19 TABLET BY [facility] tablet 00:00: MOUTH 00 EVERY Medical EVENING Branch WARFARIN 2023-0 Yes [id number] 7.5mg TAKE 1 [facility] 7.5 mg 1-19 TABLET BY [facility] tablet 00:00: MOUTH 00 EVERY Medical EVENING Branch WARFARIN 2023-0 Yes [id number] 7.5mg TAKE 1 [facility] 7.5 mg 1-19 TABLET BY [facility] tablet 00:00: MOUTH 00 EVERY Medical EVENING Branch WARFARIN 2023-0 Yes [id number] 7.5mg TAKE 1 [facility] 7.5 mg 1-19 TABLET BY [facility] tablet 00:00: MOUTH 00 EVERY Medical EVENING Branch WARFARIN 2023-0 Yes [id number] 7.5mg TAKE 1 [facility] 7.5 mg 1-19 TABLET BY [facility] tablet 00:00: MOUTH 00 EVERY Medical EVENING Branch WARFARIN 2023-0 Yes [id number] 7.5mg TAKE 1 [facility] 7.5 mg 1-19 TABLET BY [facility] tablet 00:00: MOUTH 00 EVERY Medical EVENING Branch WARFARIN 2023-0 Yes [id number] 7.5mg TAKE 1 [facility] 7.5 mg 1-19 TABLET BY [facility] tablet 00:00: MOUTH 00 EVERY Medical EVENING Branch WARFARIN 2023-0 Yes [id number] 7.5mg TAKE 1 [facility] 7.5 mg 1-19 TABLET BY [facility] tablet 00:00: MOUTH [place] 00 EVERY Medical EVENING Branch gabapentin 2023-0 Yes [id number] 300mg Take 1 [facility] 300 mg 1-17 capsule by [facility] of capsule 00:00: mouth in [place] [address] the Medical morning Branch and 1 capsule in the evening. gabapentin 2023-0 Yes [id number] 300mg Take 1 [facility] 300 mg 1-17 capsule by [facility] of capsule 00:00: mouth in [place] [address] the Medical morning Branch and 1 capsule in the evening. gabapentin 2023-0 Yes [id number] 300mg Take 1 [facility] 300 mg 1-17 capsule by [facility] of capsule 00:00: mouth in [place] [address] the Medical morning Branch and 1 capsule in the evening. gabapentin 2023-0 Yes [id number] 300mg Take 1 [facility] 300 mg 1-17 capsule by [facility] of capsule 00:00: mouth in [place] [address] the Medical morning Branch and 1 capsule in the evening. gabapentin 2023-0 Yes [id number] 300mg Take 1 [facility] 300 mg 1-17 capsule by [facility] of capsule 00:00: mouth in [place] [address] the Medical morning Branch and 1 capsule in the evening. gabapentin 2023-0 Yes [id number] 300mg Take 1 [facility] 300 mg 1-17 capsule by [facility] of capsule 00:00: mouth in [place] [address] the Medical morning Branch and 1 capsule in the evening. gabapentin 2023-0 Yes [id number] 300mg Take 1 [facility] 300 mg 1-17 capsule by [facility] of capsule 00:00: mouth in [place] [address] the Medical morning Branch and 1 capsule in the evening. gabapentin 2023-0 Yes [id number] 300mg Take 1 [facility] 300 mg 1-17 capsule by [facility] of capsule 00:00: mouth in [place] [address] the Medical morning Branch and 1 capsule in the evening. gabapentin 2023-0 2023- No [id number] 300mg Take 1 [facility] 300 mg 1-17 03-20 capsule by [facility] capsule 00:00: 00:00 mouth in [place] 00 :00 the Medical morning Branch and 1 capsule in the evening. warfarin 2023-0 Yes [id number] 7.5mg TAKE 1 [facility] 7.5 mg 1-02 TABLET BY [facility] of tablet 00:00: MOUTH [place] [facility] Medical EVENING Branch warfarin 2023-0 Yes [id number] 7.5mg TAKE 1 [facility] 7.5 mg 1-02 TABLET BY ity of tablet 00:00: MOUTH [place] 00 EVERY Medical EVENING Branch warfarin 0 Yes [id number] 7.5mg TAKE 1 [facility] 7.5 mg -02 TABLET BY [facility] of tablet 00:00: MOUTH [place] 00 EVERY Medical EVENING Branch warfarin 2022-0 Yes [id number] 7.5mg TAKE 1 [facility] 7.5 mg - TABLET BY [facility] of tablet 00:00: MOUTH [place] 00 EVERY Medical EVENING Branch warfarin 2022-0 3- No [id number] 7.5mg TAKE 1 [facility] 7.5 mg -04 12- TABLET BY [facility] of tablet 00:00: 00:00 MOUTH [place] 00 :00 EVERY Medical EVENING Branch spironolact 2021-03- No 12.5mg Take 12.5 [facility] one 25 mg 2-22 12-22 mg by [facility] of tablet 16:00: 00:00 mouth in [place] 04 :00 the Medical morning. Branch spironolact 2021-03- No 12.5mg Take 12.5 [facility] one 25 mg 2-22 12-22 mg by it[facility] of tablet 16:00: 00:00 mouth in [place] 04 :00 the Medical morning. Branch bumetanide [...] mg AM and Medical 2 mg PM. [place] spironolact 2021-03 Yes [id number] 25mg Take 1 [facility] one 25 mg 2-22 tablet by ity o f tablet 00:00: mouth in [place] the Medical morning. [place] spironolact 2021-03 Yes [id number] 25mg Take 1 [facility] one 25 mg 2-22 tablet by ity o f tablet 00:00: mouth in [place] the Medical morning. [place] spironolact 2021-03 Yes [id number] 25mg Take 1 [facility] one 25 mg 2-22 tablet by it[facility] o f tablet 00:00: mouth in [place] the Medical morning. [place] spironolact 2021-03 Yes [id number] 25mg Take 1 [facility] one 25 mg 2-22 tablet by ity o f tablet 00:00: mouth in [place] the Medical morning. [place] spironolact 2021-03 Yes [id number] 25mg Take 1 [facility] one 25 mg 2-22 tablet by ity o f tablet 00:00: mouth in [place] the Medical morning. Branch spironolact 2021-03 Yes [id number] 25mg Take 1 [facility] one 25 mg 2-22 tablet by ity o f tablet 00:00: mouth in [place] the Medical morning. Branch spironolact 2021-03 Yes [id number] 25mg Take 1 [facility] one 25 mg 2-22 tablet by ity o f tablet 00:00: mouth in [place] the Medical morning. Branch spironolact 2021-03 Yes [id number] 25mg Take 1 [facility] one 25 mg 2-22 tablet by ity o f tablet 00:00: mouth in [place] the Medical morning. Branch spironolact 2021-03 Yes [id number] 25mg Take 1 [facility] one 25 mg 2-22 tablet by ity o f tablet 00:00: mouth in [place] the Medical morning. Branch spironolact 2021-03 Yes [id number] 25mg Take 1 [facility] one 25 mg 2-22 tablet by ity o f tablet 00:00: mouth in [place] the Medical morning. Branch spironolact 2021-03 Yes [id number] 25mg Take 1 [facility] one 25 mg 2-22 tablet by ity o f tablet 00:00: mouth in [place] the Medical morning. Branch spironolact 2021-03 Yes [id number] 25mg Take 1 [facility] one 25 mg 2-22 tablet by ity o f tablet 00:00: mouth in [place] the Medical morning. Branch spironolact 2021-03 Yes [id number] 25mg Take 1 [facility] one 25 mg 2-22 tablet by ity o f tablet 00:00: mouth in [place] the Medical morning. Branch spironolact 2021-03 Yes [id number] 25mg Take 1 [facility] one 25 mg 2-22 tablet by ity o f tablet 00:00: mouth in [place] the Medical morning. Branch spironolact 2021-03 Yes [id number] 25mg Take 1 [facility] one 25 mg 2-22 tablet by ity o f tablet 00:00: mouth in [place] the Medical morning. Branch spironolact 2021-03 Yes [id number] 25mg Take 1 [facility] one 25 mg 2-22 tablet by ity o f tablet 00:00: mouth in [place] the Medical morning. Branch spironolact 2021-03 Yes [id number] 25mg Take 1 [facility] one 25 mg 2-22 tablet by ity o f tablet 00:00: mouth in [place] the Medical morning. Branch spironolact 2021-03 Yes [id number] 25mg Take 1 [facility] one 25 mg 2-22 tablet by ity o f tablet 00:00: mouth in [place] the Medical morning. Branch spironolact 2021-03 Yes [id number] 25mg Take 1 [facility] one 25 mg 2-22 tablet by ity o f tablet 00:00: mouth in [place] the Medical morning. Branch spironolact 2021-03 Yes [id number] 25mg Take 1 [facility] one 25 mg 2-22 tablet by ity o f tablet 00:00: mouth in [place] the Medical morning. Branch spironolact 2021-03 Yes [id number] 25mg Take 1 [facility] one 25 mg 2-22 tablet by ity o f tablet 00:00: mouth in [place] the morning. Branch spironolact 2021-03 Yes [id number] 25mg Take 1 [facility] one 25 mg 2-22 tablet by ity o f tablet 00:00: mouth in [place] the morning. Branch spironolact 2021-03 Yes [id number] 25mg Take 1 [facility] one 25 mg 2-22 tablet by ity o f tablet 00:00: mouth in [place] the morning. Branch spironolact 2021-03 Yes [id number] 25mg Take 1 [facility] one 25 mg 2-22 tablet by ity o f tablet 00:00: mouth in [place] the morning. Branch spironolact 2021-03 Yes [id number] 25mg Take 1 [facility] one 25 mg 2-22 tablet by ity o f tablet 00:00: mouth in [place] the Medical morning. Branch spironolact 2021-03 Yes [id number] 25mg Take 1 [facility] one 25 mg 2-22 tablet by ity o f tablet 00:00: mouth in [place] the Medical morning. Branch spironolact 2021-03 Yes [id number] 25mg Take 1 [facility] one 25 mg 2-22 tablet by ity o f tablet 00:00: mouth in [place] the Medical morning. Branch spironolact 2021-03 Yes [id number] 25mg Take 1 [facility] one 25 mg 2-22 tablet by ity o f tablet 00:00: mouth in [place] [address] the Medical morning. Branch KCL 20 mEq 2021-1 Yes [id number] 20meq Take 1 [facility] tablet 2-16 tablet by ity of 00:00: mouth in [place] [address] the Medical morning Branch and 1 tablet in the evening. KCL 20 mEq 2-1 Yes [id number] 20meq Take 1 [facility] tablet 2-16 tablet by ity of 00:00: mouth in [place] [address] the Medical morning Branch and 1 tablet in the evening. KCL 20 mEq 2-1 Yes [id number] 20meq Take 1 [facility] tablet 2-16 tablet by ity of 00:00: mouth in [place] [address] the Medical morning Branch and 1 tablet in the evening. KCL 20 mEq 2-1 Yes [id number] 20meq Take 1 [facility] tablet 2-16 tablet by ity of 00:00: mouth in [place] [address] the [facility] morning Branch and 1 tablet in the evening. KCL 20 mEq 2-1 Yes [id number] 20meq Take 1 [facility] tablet 2-16 tablet by ity of 00:00: mouth in [place] [address] the [facility] morning Branch and 1 tablet in the evening. KCL 20 mEq 2021-1 Yes [id number] 20meq Take 1 [facility] tablet 2-16 tablet by ity of 00:00: mouth in [place] [address] the Medical morning Branch and 1 tablet in the evening. KCL 20 mEq 2-1 Yes [id number] 20meq Take 1 [facility] tablet 2-16 tablet by ity of 00:00: mouth in [place] [address] the [facility] morning [place] and 1 tablet in the evening. KCL 20 mEq 2-1 Yes [id number] 20meq Take 1 [facility] tablet 2-16 tablet by ity of 00:00: mouth in [place] [address] the [facility] morning Branch and 1 tablet in the evening. KCL 20 mEq 2-1 Yes [id number] 20meq Take 1 [facility] tablet 2-16 tablet by ity of 00:00: mouth in [place] [address] the Medical morning Branch and 1 tablet in the evening. KCL 20 mEq 2-1 Yes [id number] 20meq Take 1 [facility] tablet 2-16 tablet by ity of 00:00: mouth in [place] [address] the [facility] morning Branch and 1 tablet in the evening. KCL 20 mEq 2-1 Yes [id number] 20meq Take 1 [facility] tablet 2-16 tablet by ity of 00:00: mouth in [place] 00 the Medical morning Branch and 1 tablet in the evening. KCL 20 mEq 2021-03 Yes [id number] 20meq Take 1 [facility] tablet 2-16 tablet by ity of 00:00: mouth in [place] 00 the Medical morning Branch and 1 tablet in the evening. KCL 20 mEq 2021-03 Yes [id number] 20meq Take 1 [facility] tablet 2-16 tablet by ity of 00:00: mouth in [place] 00 the Medical morning Branch and 1 tablet in the evening. KCL 20 mEq 2021-03 Yes [id number] 20meq Take 1 [facility] tablet 2-16 tablet by ity of 00:00: mouth in [place] 00 the Medical morning Branch and 1 tablet in the evening. KCL 20 mEq 2021-03 Yes [id number] 20meq Take 1 [facility] tablet 2-16 tablet by ity of 00:00: mouth in [place] 00 the Medical morning Branch and 1 tablet in the evening. KCL 20 mEq 2021-03- No [id number] 20meq Take 1 [facility] tablet 2-16 03-17 tablet by ity of 00:00: 00:00 mouth in [place] 00 :00 the Medical morning Branch and 1 tablet in the evening. GABAPENTIN 2021- Yes [id number] TAKE 2 [facility] 300 mg 2-14 CAPSULES ity of capsule 00:00: BY MOUTH [place] 00 TWICE Medical DAILY. Branch PRIMIDONE 2021-03 Yes [id number] TAKE 2 [facility] 50 mg 2-14 TABLETS BY ity of tablet 00:00: MOUTH [place] 00 EVERY 8 Medical HOURS Branch GABAPENTIN 2021- Yes [id number] TAKE 2 [facility] 300 mg 2-14 CAPSULES ity of capsule 00:00: BY MOUTH [place] [address] TWICE Medical DAILY. Branch PRIMIDONE 2021- Yes [id number] TAKE 2 [facility] 50 mg 2-14 TABLETS BY ity of tablet 00:00: MOUTH [place] 00 EVERY 8 Medical HOURS Branch PRIMIDONE 2021- Yes [id number] TAKE 2 [facility] 50 mg 2-14 TABLETS BY ity of tablet 00:00: MOUTH [place] 00 EVERY 8 Medical HOURS Branch PRIMIDONE 2021- Yes [id number] TAKE 2 [facility] 50 mg 2-14 TABLETS BY ity of tablet 00:00: MOUTH [place] 00 EVERY 8 Medical HOURS Branch PRIMIDONE 2021- Yes [id number] TAKE 2 [facility] nivers 50 mg 2-14 TABLETS BY ity of tablet 00:00: MOUTH [place] 00 EVERY 8 Medical HOURS Branch PRIMIDONE 2021- Yes [id number] TAKE 2 U nivers 50 mg 2-14 TABLETS BY ity of tablet 00:00: MOUTH [place] 00 EVERY 8 Medical HOURS Branch PRIMIDONE 2021- Yes [id number] TAKE 2 U nivers 50 mg 2-14 TABLETS BY ity of tablet 00:00: MOUTH [place] 00 EVERY 8 Medical HOURS Branch PRIMIDONE 2021- Yes [id number] TAKE 2 U nivers 50 mg 2-14 TABLETS BY ity of tablet 00:00: MOUTH [place] 00 EVERY 8 Medical HOURS Branch PRIMIDONE 2021- Yes [id number] TAKE 2 [facility] nivers 50 mg 2-14 TABLETS BY ity of tablet 00:00: MOUTH [place] 00 EVERY 8 Medical HOURS Branch PRIMIDONE 2021- Yes [id number] TAKE 2 U nivers 50 mg 2-14 TABLETS BY ity of tablet 00:00: MOUTH [place] 00 EVERY 8 Medical HOURS Branch PRIMIDONE 2021- Yes [id number] TAKE 2 [facility] nivers 50 mg 2-14 TABLETS BY ity of tablet 00:00: MOUTH [place] 00 EVERY 8 Medical HOURS Branch PRIMIDONE 2021- Yes [id number] TAKE 2 [facility] nivers 50 mg 2-14 TABLETS BY ity of tablet 00:00: MOUTH [place] 00 EVERY 8 Medical HOURS Branch PRIMIDONE 2021- Yes [id number] TAKE 2 U nivers 50 mg 2-14 TABLETS BY ity of tablet 00:00: MOUTH [place] 00 EVERY 8 Medical HOURS Branch PRIMIDONE 2021- Yes [id number] TAKE 2 U nivers 50 mg 2-14 TABLETS BY ity of tablet 00:00: MOUTH [place] 00 EVERY 8 Medical HOURS Branch PRIMIDONE 2021- Yes [id number] TAKE 2 U nivers 50 mg 2-14 TABLETS BY ity of tablet 00:00: MOUTH [place] 00 EVERY 8 Medical HOURS Branch PRIMIDONE 2021- Yes [id number] TAKE 2 U nivers 50 mg 2-14 TABLETS BY ity of tablet 00:00: MOUTH [place] 00 EVERY 8 Medical HOURS Branch PRIMIDONE 2021- Yes [id number] TAKE 2 U nivers 50 mg 2-14 TABLETS BY ity of tablet 00:00: MOUTH [place] 00 EVERY 8 Medical HOURS Branch PRIMIDONE 2021- Yes [id number] TAKE 2 U nivers 50 mg 2-14 TABLETS BY ity of tablet 00:00: MOUTH [place] 00 EVERY 8 Medical HOURS Branch PRIMIDONE 2021- Yes [id number] TAKE 2 U nivers 50 mg 2-14 TABLETS BY ity of tablet 00:00: MOUTH [place] 00 EVERY 8 Medical HOURS Branch PRIMIDONE 2021- Yes [id number] TAKE 2 U nivers 50 mg 2-14 TABLETS BY ity of tablet 00:00: MOUTH [place] 00 EVERY 8 Medical HOURS Branch PRIMIDONE 2021- Yes [id number] TAKE 2 U nivers 50 mg 2-14 TABLETS BY ity of tablet 00:00: MOUTH [place] 00 EVERY 8 Medical HOURS Branch PRIMIDONE 2021- Yes [id number] TAKE 2 U nivers 50 mg 2-14 TABLETS BY ity of tablet 00:00: MOUTH [place] 00 EVERY 8 Medical HOURS Branch PRIMIDONE 2021- Yes [id number] TAKE 2 [facility] nivers 50 mg 2-14 TABLETS BY ity of tablet 00:00: MOUTH [place] 00 EVERY 8 Medical HOURS Branch PRIMIDONE 2021- Yes [id number] TAKE 2 U nivers 50 mg 2-14 TABLETS BY ity of tablet 00:00: MOUTH [place] 00 EVERY 8 Medical HOURS Branch PRIMIDONE 2021- Yes [id number] TAKE 2 U nivers 50 mg 2-14 TABLETS BY ity of tablet 00:00: MOUTH [place] 00 EVERY 8 Medical HOURS Branch GABAPENTIN 2021- Yes [id number] TAKE 2 [facility] 300 mg 2-14 CAPSULES ity of capsule 00:00: BY MOUTH [place] 00 TWICE Medical DAILY. Branch PRIMIDONE 2021- Yes [id number] TAKE 2 [facility] nivers 50 mg 2-14 TABLETS BY ity of tablet 00:00: MOUTH [place] 00 EVERY 8 Medical HOURS Branch PRIMIDONE 2021- Yes [id number] TAKE 2 [facility]ivers 50 mg 2-14 TABLETS BY ity of tablet 00:00: MOUTH [place] 00 EVERY 8 Medical HOURS Branch GABAPENTIN 2-1 Yes [id number] TAKE 2 [facility] 300 mg 2-14 CAPSULES ity of capsule 00:00: BY MOUTH [place] 00 TWICE Medical DAILY. Branch PRIMIDONE 2021- Yes [id number] TAKE 2 [facility] nivers 50 mg 2-14 TABLETS BY ity of tablet 00:00: MOUTH [place] 00 EVERY 8 Medical HOURS Branch GABAPENTIN 2-1 Yes [id number] TAKE 2 [facility] 300 mg 2-14 CAPSULES ity of capsule 00:00: BY MOUTH [place] 00 TWICE Medical DAILY. Branch PRIMIDONE 2021-03 Yes [id number] TAKE 2 [facility] 50 mg 2-14 TABLETS BY ity of tablet 00:00: MOUTH [place] 00 EVERY 8 Medical HOURS Branch GABAPENTIN 2021-03 Yes [id number] TAKE 2 [facility] 300 mg 2-14 CAPSULES ity of capsule 00:00: BY MOUTH [place] 00 TWICE Medical DAILY. Branch PRIMIDONE 2021-03 Yes [id number] TAKE 2 [facility] 50 mg 2-14 TABLETS BY ity of tablet 00:00: MOUTH [place] 00 EVERY 8 Medical HOURS Branch GABAPENTIN 2021-03 Yes [id number] TAKE 2 [facility] 300 mg 2-14 CAPSULES ity of capsule 00:00: BY MOUTH [place] 00 TWICE Medical DAILY. Branch PRIMIDONE 2021-03 Yes [id number] TAKE 2 [facility] 50 mg 2-14 TABLETS BY ity of tablet 00:00: MOUTH [place] 00 EVERY 8 Medical HOURS Branch GABAPENTIN 2021- Yes [id number] TAKE 2 [facility] 300 mg 2-14 CAPSULES ity of capsule 00:00: BY MOUTH [place] 00 TWICE Medical DAILY. Branch PRIMIDONE 2021-03 Yes [id number] TAKE 2 [facility] 50 mg 2-14 TABLETS BY ity of tablet 00:00: MOUTH [place] 00 EVERY 8 Medical HOURS Branch GABAPENTIN 2021-03 Yes [id number] TAKE 2 [facility] 300 mg 2-14 CAPSULES ity of capsule 00:00: BY MOUTH [place] 00 TWICE Medical DAILY. Branch PRIMIDONE 2021-03 Yes [id number] TAKE 2 [facility] 50 mg 2-14 TABLETS BY ity of tablet 00:00: MOUTH [place] 00 EVERY 8 Medical HOURS Branch GABAPENTIN 2021-033- No [id number] TAKE 2 [facility] 300 mg 2-14 01-17 CAPSULES ity of capsule 00:00: 00:00 BY MOUTH [place] 00 :00 TWICE Medical DAILY. Branch warfarin 2021- Yes [id number] 7.5mg TAKE 1 [facility] 7.5 mg 1-30 TABLET BY ity of tablet 00:00: MOUTH [place] 00 EVERY Medical EVENING Branch warfarin 2021- Yes [id number] 7.5mg TAKE 1 [facility] 7.5 mg 1-30 TABLET BY ity of tablet 00:00: MOUTH [place] 00 EVERY Medical EVENING Branch warfarin 2021-03 Yes [id number] 7.5mg TAKE 1 [facility] 7.5 mg 1-30 TABLET BY ity of tablet 00:00: MOUTH [place] 00 EVERY Medical EVENING Branch warfarin 2021-03 Yes [id number] 7.5mg TAKE 1 [facility] 7.5 mg 1-30 TABLET BY ity of tablet 00:00: MOUTH [place] 00 EVERY Medical EVENING Branch warfarin 2021-03 Yes [id number] 7.5mg TAKE 1 [facility] 7.5 mg 1-30 TABLET BY ity of tablet 00:00: MOUTH [place] 00 EVERY Medical EVENING Branch warfarin 2021-03 Yes [id number] 7.5mg TAKE 1 [facility] 7.5 mg 1-30 TABLET BY ity of tablet 00:00: MOUTH 00 EVERY Medical EVENING Branch warfarin 2021-03 Yes [id number] 7.5mg TAKE 1 [facility] 7.5 mg 1-30 TABLET BY ity of tablet 00:00: MOUTH 00 EVERY Medical EVENING Branch warfarin 2021-03 Yes [id number] 7.5mg TAKE 1 [facility] 7.5 mg 1-30 TABLET BY ity of tablet 00:00: MOUTH 00 EVERY Medical EVENING Branch warfarin 2021-03 Yes [id number] 7.5mg TAKE 1 [facility] 7.5 mg 1-30 TABLET BY ity of tablet 00:00: MOUTH 00 EVERY Medical EVENING Branch warfarin 2021-03 Yes [id number] 7.5mg TAKE 1 [facility] 7.5 mg 1-30 TABLET BY ity of tablet 00:00: MOUTH 00 EVERY Medical EVENING Branch warfarin 2021-03 Yes [id number] 7.5mg TAKE 1 [facility] 7.5 mg 1-30 TABLET BY ity of tablet 00:00: MOUTH 00 EVERY Medical EVENING Branch warfarin 2021-03 Yes [id number] 7.5mg TAKE 1 [facility] 7.5 mg 1-30 TABLET BY ity of tablet 00:00: MOUTH 00 EVERY Medical EVENING Branch warfarin 2021-03 Yes [id number] 7.5mg TAKE 1 [facility] 7.5 mg 1-30 TABLET BY [facility]y of tablet 00:00: MOUTH 00 EVERY Medical EVENING Branch warfarin 2021-03 Yes [id number] 7.5mg TAKE 1 [facility] 7.5 mg 1-30 TABLET BY ity of tablet 00:00: MOUTH [place] 00 EVERY Medical EVENING Branch warfarin 2021-03 Yes [id number] 7.5mg TAKE 1 [facility] 7.5 mg 1-30 TABLET BY ity of tablet 00:00: MOUTH [place] 00 EVERY Medical EVENING Branch warfarin 2021-03 Yes [id number] 7.5mg TAKE 1 [facility] 7.5 mg 1-30 TABLET BY ity of tablet 00:00: MOUTH [place] 00 EVERY Medical EVENING Branch warfarin 2021-03 Yes [id number] 7.5mg TAKE 1 [facility] 7.5 mg 1-30 TABLET BY ity of tablet 00:00: MOUTH 00 EVERY Medical EVENING Branch warfarin 2021-03 Yes [id number] 7.5mg TAKE 1 [facility] 7.5 mg 1-30 TABLET BY ity of tablet 00:00: MOUTH [place] 00 EVERY Medical EVENING Branch warfarin 2021-03 Yes [id number] 7.5mg TAKE 1 [facility] 7.5 mg 1-30 TABLET BY ity of tablet 00:00: MOUTH 00 EVERY Medical EVENING Branch warfarin 2021-03- No [id number] 7.5mg TAKE 1 [facility] 7.5 mg 1-30 03-13 TABLET BY ity of tablet 00:00: 00:00 MOUTH [place] 00 :00 EVERY Medical EVENING Branch benzonatate 2021-03 Yes [id number] 200mg Take 1 [facility] 200 mg 1-28 capsule by ity of capsule 00:00: mouth 3 [place] (three) Medical times Branch daily as needed for Cough. benzonatate 2021-03 Yes [id number] 200mg Take 1 [facility] 200 mg 1-28 capsule by ity of capsule 00:00: mouth 3 [place] (three) Medical times Branch daily as needed for Cough. benzonatate 2021-03 Yes [id number] 200mg Take 1 [facility] 200 mg 1-28 capsule by ity of capsule 00:00: mouth 3 [place] (three) Medical times Branch daily as needed for Cough. benzonatate 2021-03 Yes [id number] 200mg Take 1 [facility] 200 mg 1-28 capsule by ity of capsule 00:00: mouth 3 [place] 00 (three) Medical times Branch daily as needed for Cough. benzonatate 2021-03 Yes [id number] 200mg Take 1 [facility] 200 mg 1-28 capsule by ity of capsule 00:00: mouth 3 [place] 00 (three) Medical times Branch daily as needed for Cough. benzonatate 2021-03 Yes [id number] 200mg Take 1 [facility] 200 mg 1-28 capsule by ity of capsule 00:00: mouth (three) Medical times Branch daily as needed for Cough. benzonatate 2021-03 Yes [id number] 200mg Take 1 [facility] 200 mg 1-28 capsule by ity of capsule 00:00: mouth (three) Medical times Branch daily as needed for Cough. benzonatate 2021-03 Yes [id number] 200mg Take 1 [facility] 200 mg 1-28 capsule by ity of capsule 00:00: mouth (three) Medical times Branch daily as needed for Cough. benzonatate 2021-03 Yes [id number] 200mg Take 1 [facility] 200 mg 1-28 capsule by ity of capsule 00:00: mouth (three) Medical times Branch daily as needed for Cough. benzonatate 2021-03 Yes [id number] 200mg Take 1 [facility] 200 mg 1-28 capsule by ity of capsule 00:00: mouth (three) Medical times Branch daily as needed for Cough. benzonatate 2021-03 Yes [id number] 200mg Take 1 [facility] 200 mg 1-28 capsule by ity of capsule 00:00: mouth (three) Medical times Branch daily as needed for Cough. benzonatate 2021-03 Yes [id number] 200mg Take 1 [facility] 200 mg 1-28 capsule by ity of capsule 00:00: mouth (three) Medical times Branch daily as needed for Cough. benzonatate 2021-03 Yes [id number] 200mg Take 1 [facility] 200 mg 1-28 capsule by ity of capsule 00:00: mouth (three) Medical times Branch daily as needed for Cough. benzonatate 2021-03 Yes [id number] 200mg Take 1 [facility] 200 mg 1-28 capsule by ity of capsule 00:00: mouth (three) Medical times Branch daily as needed for Cough. benzonatate 2021-03 Yes [id number] 200mg Take 1 [facility] 200 mg 1-28 capsule by ity of capsule 00:00: mouth (three) Medical times Branch daily as needed for Cough. benzonatate 2021-03 Yes [id number] 200mg Take 1 [facility] 200 mg 1-28 capsule by ity of capsule 00:00: mouth 3 (three) Medical times Branch daily as needed for Cough. benzonatate 2021-03 Yes [id number] 200mg Take 1 [facility] 200 mg 1-28 capsule by ity of capsule 00:00: mouth 3 (three) Medical times Branch daily as needed for Cough. benzonatate 2021-03 Yes [id number] 200mg Take 1 [facility] 200 mg 1-28 capsule by ity of capsule 00:00: mouth 3 (three) Medical times Branch daily as needed for Cough. benzonatate 2021-03 Yes [id number] 200mg Take 1 [facility] 200 mg 1-28 capsule by ity of capsule 00:00: mouth 3 (three) Medical times Branch daily as needed for Cough. benzonatate 2021-03 Yes [id number] 200mg Take 1 [facility] 200 mg 1-28 capsule by ity of capsule 00:00: mouth 3 (three) Medical times Branch daily as needed for Cough. benzonatate 2021-03 Yes [id number] 200mg Take 1 [facility] 200 mg 1-28 capsule by ity of capsule 00:00: mouth 3 (three) Medical times Branch daily as needed for Cough. benzonatate 2021-03 Yes [id number] 200mg Take 1 [facility] 200 mg 1-28 capsule by [facility] capsule 00:00: mouth 3 (three) Medical times Branch daily as needed for Cough. benzonatate 2021-03 Yes [id number] 200mg Take 1 [facility] 200 mg 1-28 capsule by [facility] capsule 00:00: mouth 3 (three) Medical times Branch daily as needed for Cough. benzonatate 2021-03 Yes [id number] 200mg Take 1 [facility] 200 mg 1-28 capsule by [facility] capsule 00:00: mouth 3 (three) Medical times Branch daily as needed for Cough. benzonatate 2021-03 Yes [id number] 200mg Take 1 [facility] 200 mg 1-28 capsule by [facility] of capsule 00:00: mouth 3 (three) Medical times Branch daily as needed for Cough. cephALEXin 2021-03 Yes [id number] 500mg Take 1 [facility] 500 mg 1-28 capsule by [facility] of capsule 00:00: mouth 4 (four) Medical times Branch daily. benzonatate 2021-03 Yes [id number] 200mg Take 1 [facility] 200 mg 1-28 capsule by [facility] of capsule 00:00: mouth 3 [place] (three) Medical times Branch daily as needed for Cough. cephALEXin 2021-03 Yes [id number] 500mg Take 1 [facility] 500 mg 1-28 capsule by [facility] of capsule 00:00: mouth 4 [place] (four) Medical times Branch daily. benzonatate 2021-03 Yes [id number] 200mg Take 1 [facility] 200 mg 1-28 capsule by [facility] of capsule 00:00: mouth 3 [place] (three) Medical times Branch daily as needed for Cough. cephALEXin 2021-03 Yes [id number] 500mg Take 1 [facility] 500 mg 1-28 capsule by [facility] of capsule 00:00: mouth [address] [place] [address] (four) Medical times Branch daily. benzonatate 2021-03 Yes [id number] 200mg Take 1 [facility] 200 mg 1-28 capsule by [facility] of capsule 00:00: mouth [address] [place] [address] (three) Medical times Branch daily as needed for Cough. cephALEXin 2021-03 Yes [id number] 500mg Take 1 [facility] 500 mg 1-28 capsule by [facility] of capsule 00:00: mouth [address] [place] [address] (four) Medical times Branch daily. benzonatate 2021-03 Yes [id number] 200mg Take 1 [facility] 200 mg 1-28 capsule by [facility] of capsule 00:00: mouth [address] [place] [address] (three) Medical times Branch daily as needed for Cough. cephALEXin 2021-03 Yes [id number] 500mg Take 1 [facility] 500 mg 1-28 capsule by [facility] of capsule 00:00: mouth [address] [place] [address] (four) Medical times Branch daily. benzonatate 2021-03 Yes [id number] 200mg Take 1 [facility] 200 mg 1-28 capsule by [facility] of capsule 00:00: mouth [address] [place] [address] (three) Medical times Branch daily as needed for Cough. cephALEXin 2021-03 Yes [id number] 500mg Take 1 [facility] 500 mg 1-28 capsule by [facility] of capsule 00:00: mouth [address] [place] [address] (four) Medical times Branch daily. benzonatate 2021- Yes [id number] 200mg Take 1 [facility] 200 mg 1-28 capsule by [facility] of capsule 00:00: mouth [address] [place] [address] (three) Medical times Branch daily as needed for Cough. cephALEXin 2022-1 Yes [id number] 500mg Take 1 [facility] 500 mg 1-28 capsule by [facility] of capsule 00:00: mouth 4 [place] (four) Medical times Branch daily. benzonatate 2021-03 Yes [id number] 200mg Take 1 [facility] 200 mg 1-28 capsule by [facility] of capsule 00:00: mouth 3 [place] (three) Medical times Branch daily as needed for Cough. cephALEXin 2021-03 Yes [id number] 500mg Take 1 [facility] 500 mg 1-28 capsule by [facility] of capsule 00:00: mouth [place] (four) Medical times Branch daily. benzonatate 2021-03 Yes [id number] 200mg Take 1 [facility] 200 mg 1-28 capsule by [facility] of capsule 00:00: mouth 3 [place] (three) Medical times Branch daily as needed for Cough. cephALEXin 2021-03 Yes [id number] 500mg Take 1 [facility] 500 mg 1-28 capsule by [facility] of capsule 00:00: mouth [place] (four) Medical times Branch daily. benzonatate 2021-03 Yes [id number] 200mg Take 1 [facility] 200 mg 1-28 capsule by [facility] of capsule 00:00: mouth [place] (three) Medical times Branch daily as needed for Cough. benzonatate 2021-03 Yes [id number] 200mg Take 1 [facility] 200 mg 1-28 capsule by [facility] capsule 00:00: mouth [place] (three) Medical times Branch daily as needed for Cough. benzonatate 2021-03 Yes [id number] 200mg Take 1 [facility] 200 mg 1-28 capsule by [facility] capsule 00:00: mouth [place] (three) Medical times Branch daily as needed for Cough. benzonatate 2021-03 Yes [id number] 200mg Take 1 [facility] 200 mg 1-28 capsule by [facility] of capsule 00:00: mouth [place] (three) Medical times Branch daily as needed for Cough. benzonatate 2021-03 Yes [id number] 200mg Take 1 [facility] 200 mg 1-28 capsule by [facility] of capsule 00:00: mouth 3 [place] (three) Medical times Branch daily as needed for Cough. benzonatate 2021-03 Yes [id number] 200mg Take 1 [facility] 200 mg 1-28 capsule by [facility] capsule 00:00: mouth 3 [place] (three) Medical times Branch daily as needed for Cough. benzonatate 2021-03 Yes [id number] 200mg Take 1 [facility] 200 mg 1-28 capsule by [facility] capsule 00:00: mouth 3 [place] 00 (three) Medical times Branch daily as needed for Cough. benzonatate 2021-03 Yes [id number] 200mg Take 1 [facility] 200 mg 1-28 capsule by [facility] capsule 00:00: mouth 3 [place] 00 (three) Medical times Branch daily as needed for Cough. benzonatate 2021-03 Yes [id number] 200mg Take 1 [facility] 200 mg 1-28 capsule by [facility] capsule 00:00: mouth 3 [place] 00 (three) Medical times Branch daily as needed for Cough. benzonatate 2021-03 Yes [id number] 200mg Take 1 [facility] 200 mg 1-28 capsule by [facility] of capsule 00:00: mouth 3 [place] 00 (three) Medical times Branch daily as needed for Cough. benzonatate 2021-03 Yes [id number] 200mg Take 1 [facility] 200 mg 1-28 capsule by [facility] capsule 00:00: mouth 3 [place] 00 (three) Medical times Branch daily as needed for Cough. benzonatate 2021-03 Yes [id number] 200mg Take 1 [facility] 200 mg 1-28 capsule by [facility] of capsule 00:00: mouth 3 [place] 00 (three) Medical times Branch daily as needed for Cough. benzonatate 2021-03 Yes [id number] 200mg Take 1 [facility] 200 mg 1-28 capsule by [facility] of capsule 00:00: mouth 3 [place] 00 (three) Medical times Branch daily as needed for Cough. cephALEXin 2021-03 No [id number] 500mg Take 1 [facility] 500 mg 1-28 12-14 capsule by [facility] capsule 00:00: 00:00 mouth 4 [place] 00 :00 (four) Medical times Branch daily. cephALEXin 2021-03- No [id number] 500mg Take 1 [facility] 500 mg 1-28 12-14 capsule by [facility] capsule 00:00: 00:00 mouth 4 [place] 00 :00 (four) Medical times Branch daily. cephALEXin 2021-03- No [id number] 500mg Take 1 [facility] 500 mg 1-28 12-14 capsule by [facility] of capsule 00:00: 00:00 mouth 4 [place] 00 :00 (four) Medical times Branch daily. azithromyci 2021-03 Yes [id number] 500mg Take 1 [facility] n 500 mg 1-23 tablet by [facility] of tablet 00:00: mouth in [place] 00 the Medical morning. [place] azithromyci 2021-03 Yes [id number] 500mg Take 1 [facility] n 500 mg 1-23 tablet by [facility] of tablet 00:00: mouth in [place] 00 the Medical morning. Branch cristinaithedmondyci 2021-03- No [id number] 500mg Take 1 [facility] n 500 mg 1-23 -28 tablet by ity o f tablet 00:00: 00:00 mouth in [place] 00 :00 the Medical morning. Branch cristinaithedmondyci 2021-03- No [id number] 500mg Take 1 [facility] n 500 mg 1-23 -28 tablet by ity o f tablet 00:00: 00:00 mouth in [place] 00 :00 the Medical morning. Branch CARVEDILOL 2021-03 Yes [id number] TAKE 1 [facility] 6.25 mg 1-21 TABLET BY [facility] of tablet 00:00: MOUTH [place] 00 TWICE Medical DAILY WITH Branch MEALS CARVEDILOL 2021-03 Yes [id number] TAKE 1 [facility] 6.25 mg 1-21 TABLET BY [facility] of tablet 00:00: MOUTH [place] 00 TWICE Medical DAILY WITH Branch MEALS CARVEDILOL 2021-03 Yes [id number] TAKE 1 [facility] 6.25 mg 1-21 TABLET BY [facility] of tablet 00:00: MOUTH [place] 00 TWICE Medical DAILY WITH Branch MEALS CARVEDILOL 2021-03 Yes [id number] TAKE 1 [facility] 6.25 mg 1-21 TABLET BY [facility] of tablet 00:00: MOUTH [place] 00 TWICE Medical DAILY WITH Branch MEALS CARVEDILOL 2021-03 Yes [id number] TAKE 1 [facility] 6.25 mg 1-21 TABLET BY [facility] of tablet 00:00: MOUTH [place] 00 TWICE Medical DAILY WITH Branch MEALS CARVEDILOL 2021-03 Yes [id number] TAKE 1 [facility] 6.25 mg 1-21 TABLET BY [facility] of tablet 00:00: MOUTH [place] 00 TWICE Medical DAILY WITH Branch MEALS CARVEDILOL 2021-03 Yes [id number] TAKE 1 [facility] 6.25 mg 1-21 TABLET BY [facility] of tablet 00:00: MOUTH [place] 00 TWICE Medical DAILY WITH Branch MEALS CARVEDILOL 2021-03 Yes [id number] TAKE 1 [facility] 6.25 mg 1-21 TABLET BY [facility] of tablet 00:00: MOUTH [place] 00 TWICE Medical DAILY WITH Branch MEALS CARVEDILOL 2021-03 Yes [id number] TAKE 1 [facility] 6.25 mg 1-21 TABLET BY [facility] of tablet 00:00: MOUTH TWICE Medical DAILY WITH Branch MEALS CARVEDILOL 2021-03 Yes [id number] TAKE 1 [facility] 6.25 mg 1-21 TABLET BY [facility] of tablet 00:00: MOUTH TWICE Medical DAILY WITH Branch MEALS CARVEDILOL 2021-03 Yes [id number] TAKE 1 [facility] 6.25 mg 1-21 TABLET BY [facility]y of tablet 00:00: MOUTH TWICE Medical DAILY WITH Branch MEALS CARVEDILOL 2021-03 Yes [id number] TAKE 1 [facility] 6.25 mg 1-21 TABLET BY [facility]y of tablet 00:00: MOUTH TWICE Medical DAILY WITH Branch MEALS CARVEDILOL 2021-03 Yes [id number] TAKE 1 [facility] 6.25 mg 1-21 TABLET BY [facility]y of tablet 00:00: MOUTH TWICE Medical DAILY WITH Branch MEALS CARVEDILOL 2021-03 Yes [id number] TAKE 1 [facility] 6.25 mg 1-21 TABLET BY [facility] of tablet 00:00: MOUTH TWICE Medical DAILY WITH Branch MEALS CARVEDILOL 2021-03 Yes [id number] TAKE 1 [facility] 6.25 mg 1-21 TABLET BY [facility] of tablet 00:00: MOUTH TWICE Medical DAILY WITH Branch MEALS CARVEDILOL 2021-03 Yes [id number] TAKE 1 [facility] 6.25 mg 1-21 TABLET BY [facility] of tablet 00:00: MOUTH TWICE Medical DAILY WITH Branch MEALS CARVEDILOL 2021-03 Yes [id number] TAKE 1 [facility] 6.25 mg 1-21 TABLET BY [facility]y of tablet 00:00: MOUTH TWICE Medical DAILY WITH Branch MEALS CARVEDILOL 2021-03 Yes [id number] TAKE 1 [facility] 6.25 mg 1-21 TABLET BY [facility] of tablet 00:00: MOUTH TWICE Medical DAILY WITH Branch MEALS CARVEDILOL 2021-03 Yes [id number] TAKE 1 [facility] 6.25 mg 1-21 TABLET BY [facility] of tablet 00:00: MOUTH 00 TWICE Medical DAILY WITH Branch MEALS CARVEDILOL 2021-03 Yes [id number] TAKE 1 [facility] 6.25 mg 1-21 TABLET BY [facility] of tablet 00:00: MOUTH TWICE Medical DAILY WITH Branch MEALS CARVEDILOL 2021-03 Yes [id number] TAKE 1 [facility] 6.25 mg 1-21 TABLET BY [facility] of tablet 00:00: MOUTH [place] 00 TWICE Medical DAILY WITH Branch MEALS CARVEDILOL 2021-03 Yes [id number] TAKE 1 [facility] 6.25 mg 1-21 TABLET BY [facility] of tablet 00:00: MOUTH [place] 00 TWICE Medical DAILY WITH Branch MEALS CARVEDILOL 2021-03 Yes [id number] TAKE 1 [facility] 6.25 mg 1-21 TABLET BY [facility] of tablet 00:00: MOUTH [place] TWICE Medical DAILY WITH Branch MEALS CARVEDILOL 2021-03 Yes [id number] TAKE 1 [facility] 6.25 mg 1-21 TABLET BY [facility]y of tablet 00:00: MOUTH TWICE Medical DAILY WITH Branch MEALS CARVEDILOL 2021-03 Yes [id number] TAKE 1 [facility] 6.25 mg 1-21 TABLET BY [facility]y of tablet 00:00: MOUTH 00 TWICE Medical DAILY WITH Branch MEALS CARVEDILOL 2021-03 Yes [id number] TAKE 1 [facility] 6.25 mg 1-21 TABLET BY [facility] of tablet 00:00: MOUTH 00 TWICE Medical DAILY WITH Branch MEALS CARVEDILOL 2021-03 Yes [id number] TAKE 1 [facility] 6.25 mg 1-21 TABLET BY [facility] of tablet 00:00: MOUTH [place] 00 TWICE Medical DAILY WITH Branch MEALS CARVEDILOL 2021-03 Yes [id number] TAKE 1 [facility] 6.25 mg 1-21 TABLET BY [facility] of tablet 00:00: MOUTH [place] 00 TWICE Medical DAILY WITH Branch MEALS CARVEDILOL 2021-03 Yes [id number] TAKE 1 [facility] 6.25 mg 1-21 TABLET BY [facility] of tablet 00:00: MOUTH [place] 00 TWICE Medical DAILY WITH Branch MEALS CARVEDILOL 2021-03 Yes [id number] TAKE 1 [facility] 6.25 mg 1-21 TABLET BY [facility] of tablet 00:00: MOUTH [place] 00 TWICE Medical DAILY WITH Branch MEALS CARVEDILOL 2021-03 Yes [id number] TAKE 1 [facility] 6.25 mg 1-21 TABLET BY [facility] of tablet 00:00: MOUTH [place] 00 TWICE Medical DAILY WITH Branch MEALS CARVEDILOL 2021-03 Yes [id number] TAKE 1 [facility] 6.25 mg 1-21 TABLET BY [facility] of tablet 00:00: MOUTH [place] 00 TWICE Medical DAILY WITH Branch MEALS CARVEDILOL 2021-03 Yes [id number] TAKE 1 [facility] 6.25 mg 1-21 TABLET BY [facility] of tablet 00:00: MOUTH [place] 00 TWICE Medical DAILY WITH Branch MEALS CARVEDILOL 2021-03 Yes [id number] TAKE 1 [facility] 6.25 mg 1-21 TABLET BY [facility] of tablet 00:00: MOUTH [place] 00 TWICE Medical DAILY WITH Branch MEALS CARVEDILOL 2021-03 Yes [id number] TAKE 1 [facility] 6.25 mg 1-21 TABLET BY [facility] of tablet 00:00: MOUTH TWICE Medical DAILY WITH Branch MEALS CARVEDILOL 2021-03 Yes [id number] TAKE 1 [facility] 6.25 mg 1-21 TABLET BY [facility] of tablet 00:00: MOUTH TWICE Medical DAILY WITH Branch MEALS CARVEDILOL 2021-03 Yes [id number] TAKE 1 [facility] 6.25 mg 1-21 TABLET BY [facility] of tablet 00:00: MOUTH 00 TWICE Medical DAILY WITH Branch MEALS CARVEDILOL 2021-03 Yes [id number] TAKE 1 [facility] 6.25 mg 1-21 TABLET BY [facility] of tablet 00:00: MOUTH TWICE Medical DAILY WITH Branch MEALS CARVEDILOL 2021-03 Yes [id number] TAKE 1 [facility] 6.25 mg 1-21 TABLET BY [facility] of tablet 00:00: MOUTH 00 TWICE Medical DAILY WITH Branch MEALS CARVEDILOL 2021-03 Yes [id number] TAKE 1 [facility] 6.25 mg 1-21 TABLET BY [facility] of tablet 00:00: MOUTH 00 TWICE Medical DAILY WITH Branch MEALS CARVEDILOL 2021-03 Yes [id number] TAKE 1 [facility] 6.25 mg 1-21 TABLET BY [facility] of tablet 00:00: MOUTH 00 TWICE Medical DAILY WITH Branch MEALS CARVEDILOL 2021-03 Yes [id number] TAKE 1 [facility] 6.25 mg 1-21 TABLET BY [facility] of tablet 00:00: MOUTH 00 TWICE Medical DAILY WITH Branch MEALS CARVEDILOL 2021-03 Yes [id number] TAKE 1 [facility] 6.25 mg 1-21 TABLET BY [facility] of tablet 00:00: MOUTH [place] 00 TWICE Medical DAILY WITH Branch MEALS CARVEDILOL 2021-03 Yes [id number] TAKE 1 [facility] 6.25 mg 1-21 TABLET BY [facility]y of tablet 00:00: MOUTH 00 TWICE Medical DAILY WITH Branch MEALS CARVEDILOL 2021-03 Yes [id number] TAKE 1 [facility] 6.25 mg 1-21 TABLET BY ity of tablet 00:00: MOUTH [place] 00 TWICE Medical DAILY WITH Branch MEALS CARVEDILOL 2021-03 Yes [id number] TAKE 1 [facility] 6.25 mg 1-21 TABLET BY ity of tablet 00:00: MOUTH [place] 00 TWICE Medical DAILY WITH Branch MEALS CARVEDILOL 2021-03 Yes [id number] TAKE 1 [facility] 6.25 mg 1-21 TABLET BY ity of tablet 00:00: MOUTH [place] 00 TWICE Medical DAILY WITH Branch MEALS CARVEDILOL 2021-03 Yes [id number] TAKE 1 [facility] 6.25 mg 1-21 TABLET BY ity of tablet 00:00: MOUTH [place] 00 TWICE Medical DAILY WITH Branch MEALS CARVEDILOL 2021-03 Yes [id number] TAKE 1 [facility] 6.25 mg 1-21 TABLET BY ity of tablet 00:00: MOUTH [place] 00 TWICE Medical DAILY WITH Branch MEALS CARVEDILOL 2021-03 Yes [id number] TAKE 1 [facility] 6.25 mg 1-21 TABLET BY ity of tablet 00:00: MOUTH [place] TWICE Medical DAILY WITH Branch MEALS CARVEDILOL 2021-03 Yes [id number] TAKE 1 [facility] 6.25 mg 1-21 TABLET BY ity of tablet 00:00: MOUTH [place] 00 TWICE Medical DAILY WITH Branch MEALS allopurinoL 2021-03 Yes 300mg QD Take 1 [facility] (ZYLOPRIM[facility] 1-[address] 300 MG 00:00: (300 mg [facility] tablet 00 total) by l mouth every morning. allopurinoL 2021-03 Yes 300mg QD Take 1 [facility] (ZYLOPRIM) 1-[address] 300 MG 00:00: (300 mg [facility] tablet 00 total) by l mouth every morning. atorvastati 2021-03 Yes 40mg Q24H Take 1 [facility] (LIPITOR) 1-13 tablet (40 st 40 mg 00:00: mg total) [facility] tablet 00 by mouth l daily. atorvastati 2021-03 Yes 40mg Q24H Take 1 [facility] (LIPITOR) 1-13 tablet (40 st 40 mg 00:00: mg total) [facility] tablet 00 by mouth l daily. BUMETanide 2021-03 Yes TAKE 1 AND M ethodi (BUMEX) 2 1-12 1/2 st MG tablet 00:00: TABLETS [facility] 00 MOUTH IN l THE MORNING AND 1 TABLET IN THE EVENING BUMETanide 2021-03 Yes TAKE 1 AND M ethodi (BUMEX) 2 -2 st MG tablet 00:00: TABLETS BY [facility] 00 MOUTH IN l THE MORNING AND 1 TABLET IN THE EVENING KCL 10 mEq 2021-03- No 10meq Take 10 Un [facility] tablet -11 11-11 mEq by ity of 15:34: 00:00 mouth [place] 27 :00 daily. Medical Branch warfarin 2021-03 Yes [id number] [facility] mg tablet 1-11 dosage 10 ity o f 00:00: mg /W//[facility] 7[facility]5 Branch T/Th/S warfarin 5 2021-03 Yes [id number] [facility] mg tablet 1-11 dosage 10 ity o f 00:00: mg [place] /W//[facility] 7.5 Branch T/Th/S warfarin 5 2021-03 Yes [id number] [facility] mg tablet 1-11 dosage 10 ity o f 00:00: mg [place] /W//[facility] 7.5 Branch T/Th/S warfarin 5 2021-03 Yes [id number] [facility] mg tablet 1-11 dosage 10 ity o f 00:00: mg [place] /W//[facility] 7.5 Branch T/Th/S warfarin 5 2021-03 Yes [id number] [facility] mg tablet 1-11 dosage 10 ity o f 00:00: mg [place] /W//[facility] 7.5 Branch T/Th/S warfarin 5 2021-03 Yes [id number] [facility] mg tablet 1-11 dosage 10 ity o f 00:00: mg [place] /W//[facility] 7.5 Branch T/Th/S warfarin 5 2021-03 Yes [id number] [facility] mg tablet 1-11 dosage 10 ity o f 00:00: mg [place] /W//[facility] 7.5 Branch T/Th/S warfarin 5 2021-03 Yes [id number] [facility] mg tablet 1-11 dosage 10 ity o f 00:00: mg [place] /W//[facility] 7.5 Branch T/Th/S warfarin 5 2021-03 Yes [id number] [facility] mg tablet 1-11 dosage 10 ity o f 00:00: mg /W/F/[facility] 7.5 Branch T/Th/S warfarin 5 2021-03 Yes [id number] [facility] mg tablet 1-11 dosage 10 ity o f 00:00: mg /W/F/[facility] 7[facility]5 Branch T/Th/S warfarin 5 2021-03 Yes [id number] [facility] mg tablet 1-11 dosage 10 ity o f 00:00: mg /W/F/[facility] 7.5 Branch T/Th/S warfarin 5 2021-03 Yes [id number] [facility] mg tablet 1-11 dosage 10 ity o f 00:00: mg /W/F/[facility] 7.5 Branch T//S warfarin 5 2021-03 Yes [id number] [facility] mg tablet 1-11 dosage 10 ity o f 00:00: mg /W/F/[facility] 7.5 Branch T/Th/S warfarin 5 2021-03 Yes [id number] [facility] mg tablet 1-11 dosage 10 ity o f 00:00: mg [place] /W/F/[facility] 7[facility]5 Branch T//S warfarin 5 2021-03 Yes [id number] [facility] mg tablet 1-11 dosage 10 ity o f 00:00: mg [place] /W/F/[facility] 7[facility]5 Branch T/Th/S warfarin 5 2021-03 Yes [id number] [facility] mg tablet 1-11 dosage 10 ity o f 00:00: mg /W/F/[facility] 7[facility]5 Branch T/Th/S warfarin 5 2021-03 Yes [id number] [facility] mg tablet 1-11 dosage 10 ity o f 00:00: mg [place] /W/F/[facility] 7[facility]5 Branch T/Th/S warfarin 5 2021-03 Yes [id number] [facility] mg tablet 1-11 dosage 10 ity o f 00:00: mg [place] /W/F/[facility] 7[facility]5 Branch T/Th/S warfarin 5 2021-03 Yes [id number] [facility] mg tablet 1-11 dosage 10 ity o f 00:00: mg [place] /W/F/[facility] 7.5 Branch T/Th/S warfarin 5 2021-03 Yes [id number] [facility] mg tablet 1-11 dosage 10 ity o f 00:00: mg [place] /W//[facility] 7[facility]5 Branch T/Th/S warfarin 5 2021-03 Yes [id number] [facility] mg tablet 1-11 dosage 10 ity o f 00:00: mg [place] /W/F/[facility]5 Branch T/Th/S warfarin 5 2021-03 Yes [id number] [facility] mg tablet 1-11 dosage 10 ity o f 00:00: mg [place] /W//[facility] 7[facility]5 Branch T/Th/S warfarin 5 2021-03 Yes [id number] [facility] mg tablet 1-11 dosage 10 ity o f 00:00: mg [place] ///[facility] 7[facility]5 Branch T/Th/S warfarin 5 2021-03 Yes [id number] [facility] mg tablet 1-11 dosage 10 ity o f 00:00: mg [place] /W//[facility] 7[facility]5 Branch T/Th/S warfarin 5 2021-03 Yes [id number] [facility] mg tablet 1-11 dosage 10 ity o f 00:00: mg [place] /W//[facility] 7[facility]5 Branch T/Th/S warfarin 5 2021-03 Yes [id number] [facility] mg tablet 1-11 dosage 10 ity o f 00:00: mg [place] /W/F/[facility] 7.5 Branch T/Th/S KCL 10 mEq 2021-03 Yes [id number] 10meq Take 1 [facility] tablet 1-11 tablet by ity of 00:00: mouth in [place] the Medical morning. Branch warfarin 2021-03 Yes [id number] [facility] mg tablet 1-11 dosage 10 ity o f 00:00: mg [place] /W//[facility] 7.5 Branch T/Th/S KCL 10 mEq 2021-03 Yes [id number] 10meq Take 1 [facility] tablet 1-11 tablet by ity of 00:00: mouth in [place] the Medical morning. Branch warfarin 2021-03 Yes [id number] [facility] mg tablet 1-11 dosage 10 ity o f 00:00: mg [place] [facility] and 7.5 Branch T/Th/S KCL 10 mEq 2021-03 Yes [id number] 10meq Take 1 [facility] tablet 1-11 tablet by ity of 00:00: mouth in [place] the Medical morning. Branch warfarin 2021-03 Yes [id number] [facility] mg tablet 1-11 dosage 10 ity o f 00:00: mg [place] [facility] and 7.5 Branch T/Th/S KCL 10 mEq 2021-03 Yes [id number] 10meq Take 1 [facility] tablet 1-11 tablet by ity of 00:00: mouth in [place] the Medical morning. Branch warfarin 2021-03 Yes [id number] [facility] mg tablet 1-11 dosage 10 ity o f 00:00: mg [place] [facility] and 7.5 Branch T/Th/S KCL 10 mEq 2021-03 Yes [id number] 10meq Take 1 [facility] tablet 1-11 tablet by ity of 00:00: mouth in [place] the Medical morning. Branch warfarin 2021-03 Yes [id number] [facility] mg tablet 1-11 dosage 10 ity o f 00:00: mg [place] [facility]//[facility] and 7.5 Branch T/Th/S KCL 10 mEq 2021-03 Yes [id number] 10meq Take 1 [facility] tablet 1-11 tablet by ity of 00:00: mouth in [place] the Medical morning. Branch warfarin 2021-03 Yes [id number] [facility] mg tablet 1-11 dosage 10 ity o f 00:00: mg [place] [facility] and 7.5 Branch T/Th/S KCL 10 mEq 2021-03 Yes [id number] 10meq Take 1 [facility] tablet 1-11 tablet by ity of 00:00: mouth in [place] the Medical morning. Branch warfarin 5 2021-03 Yes [id number] [facility] mg tablet 1-11 dosage 10 ity o f 00:00: mg [place] [facility] and 7.5 Branch T/Th/S KCL 10 mEq 2021-03 Yes [id number] 10meq Take 1 [facility] tablet 1-11 tablet by ity of 00:00: mouth in [place] the Medical morning. Branch warfarin 2021-03 Yes [id number] [facility] mg tablet 1-11 dosage 10 ity o f 00:00: mg [place] ///[facility] and 7.5 Branch T/Th/S KCL 10 mEq 2021-03 Yes [id number] 10meq Take 1 [facility] tablet 1-11 tablet by ity of 00:00: mouth in [place] the Medical morning. Branch warfarin 2021-03 Yes [id number] [facility] mg tablet 1-11 dosage 10 ity o f 00:00: mg [place] ///[facility] and 7.5 Branch T/Th/S KCL 10 mEq 2021-03 Yes [id number] 10meq Take 1 [facility] tablet 1-11 tablet by ity of 00:00: mouth in [place] the Medical morning. Branch warfarin 2021-03 Yes [id number] [facility] mg tablet 1-11 dosage 10 ity o f 00:00: mg [place] [facility]//[facility] and 7.5 Branch T/Th/S KCL 10 mEq 2021-03 Yes [id number] 10meq Take 1 [facility] tablet 1-11 tablet by ity of 00:00: mouth in [place] the Medical morning. Branch warfarin 2021-03 Yes [id number] [facility] mg tablet 1-11 dosage 10 ity o f 00:00: mg [place] [facility] and 7.5 [place] T/Th/S KCL 10 mEq 2021-03 Yes [id number] 10meq Take 1 [facility] tablet 1-11 tablet by ity of 00:00: mouth in [place] the Medical morning. Branch warfarin 2021-03 Yes [id number] [facility] mg tablet 1-11 dosage 10 ity o f 00:00: mg [place] [facility] and 7.5 [place] T/Th/S KCL 10 mEq 2021-03 Yes [id number] 10meq Take 1 [facility] tablet 1-11 tablet by ity of 00:00: mouth in [place] the Medical morning. Branch warfarin 2021-03 Yes [id number] [facility] mg tablet 1-11 dosage 10 ity o f 00:00: mg [place] /W//[facility] 7.5 Branch T/Th/S KCL 10 mEq 2021-03 Yes [id number] 10meq Take 1 [facility] tablet 1-11 tablet by ity of 00:00: mouth in [place] the Medical morning. Branch warfarin 5 2021-03 Yes [id number] [facility] mg tablet 1-11 dosage 10 ity o f 00:00: mg [place] ///[facility] 7.5 Branch T/Th/S KCL 10 mEq 2021-03 Yes [id number] 10meq Take 1 [facility] tablet 1-11 tablet by ity of 00:00: mouth in [place] the Medical morning. Branch warfarin 5 2021-03 Yes [id number] [facility] mg tablet 1-11 dosage 10 ity o f 00:00: mg [place] ///[facility] and 7.5 Branch T/Th/S KCL 10 mEq 2021-03 Yes [id number] 10meq Take 1 [facility] tablet 1-11 tablet by ity of 00:00: mouth in [place] the Medical morning. Branch warfarin 2021-03 Yes [id number] [facility] mg tablet 1-11 dosage 10 ity o f 00:00: mg [place] [facility]//[facility] and 7.5 Branch T/Th/S KCL 10 mEq 2021-03 Yes [id number] 10meq Take 1 [facility] tablet 1-11 tablet by ity of 00:00: mouth in [place] the Medical morning. Branch warfarin 5 2021-03 Yes [id number] [facility] mg tablet 1-11 dosage 10 ity o f 00:00: mg [place] [facility]//[facility] and 7.5 Branch T/Th/S KCL 10 mEq 2021-03 Yes [id number] 10meq Take 1 [facility] tablet 1-11 tablet by [facility] of 00:00: mouth in [place] the Medical morning. Branch warfarin 5 2021-03 Yes [id number] [facility] mg tablet 1-11 dosage 10 ity o f 00:00: mg [place] ///[facility] and 7.5 Branch T/Th/S KCL 10 mEq 2021-03 Yes [id number] 10meq Take 1 [facility] tablet 1-11 tablet by ity of 00:00: mouth in [place] 00 the Medical morning. Branch warfarin 2021-03 Yes [id number] [facility] mg tablet 1-11 dosage 10 ity o f 00:00: mg [place] ///[facility] and 7.5 Branch T/Th/S KCL 10 mEq 2021-03 Yes [id number] 10meq Take 1 [facility] tablet 1-11 tablet by ity of 00:00: mouth in [place] the Medical morning. Branch warfarin 5 2021-03 Yes [id number] [facility] mg tablet 1-11 dosage 10 ity o f 00:00: mg [place] ///[facility] and 7.5 Branch T/Th/S KCL 10 mEq 2021-03 Yes [id number] 10meq Take 1 [facility] tablet 1-11 tablet by ity of 00:00: mouth in [place] the Medical morning. Branch warfarin 5 2021-03 Yes [id number] [facility] mg tablet 1-11 dosage 10 ity o f 00:00: mg [place] [facility]//[facility] and 7.5 Branch T/Th/S KCL 10 mEq 2021-03 Yes [id number] 10meq Take 1 [facility] tablet 1-11 tablet by ity of 00:00: mouth in [place] the Medical morning. Branch warfarin 5 2021-03 Yes [id number] [facility] mg tablet 1-11 dosage 10 ity o f 00:00: mg [place] ///[facility] and 7.5 Branch T/Th/S KCL 10 mEq 2021-03 Yes [id number] 10meq Take 1 [facility] tablet 1-11 tablet by ity of 00:00: mouth in [place] the Medical morning. Branch warfarin 2021-03 Yes [id number] Current [facility] mg tablet 1-11 dosage 10 ity o f 00:00: mg [place] ///[facility] and 7.5 Branch T/Th/S KCL 10 mEq 2021-03 Yes [id number] 10meq Take 1 [facility] tablet 1-11 tablet by ity of 00:00: mouth in [place] the Medical morning. Branch warfarin 5 2021-03 Yes [id number] Current [facility] mg tablet 1-11 dosage 10 ity o f 00:00: mg [place] ///[facility] and 7.5 Branch T/Th/S KCL 10 mEq 2021-03 Yes [id number] 10meq Take 1 [facility] tablet 1-11 tablet by ity of 00:00: mouth in [place] the Medical morning. Branch warfarin 5 2021-03 Yes [id number] [facility] mg tablet 1-11 dosage 10 ity o f 00:00: mg [place] ///[facility] and 7.5 Branch T/Th/S KCL 10 mEq 2021-03 Yes [id number] 10meq Take 1 [facility] tablet 1-11 tablet by ity of 00:00: mouth in [place] the Medical morning. Branch warfarin 2021-03 Yes [id number] [facility] mg tablet 1-11 dosage 10 ity o f 00:00: mg [place] ///[facility] and 7.5 Branch T/Th/S KCL 10 mEq 2021-03 Yes [id number] 10meq Take 1 [facility] tablet 1-11 tablet by ity of 00:00: mouth in [place] the Medical morning. Branch warfarin 2021-03 Yes [id number] [facility] mg tablet 1-11 dosage 10 ity o f 00:00: mg [place] ///[facility] and 7.5 Branch T/Th/S KCL 10 mEq 2021-03 Yes [id number] 10meq Take 1 [facility] tablet 1-11 tablet by ity of 00:00: mouth in [place] the Medical morning. Branch warfarin 2021-03 Yes [id number] Current [facility] mg tablet 1-11 dosage 10 ity o f 00:00: mg [place] [facility] and 7.5 Branch T/Th/S KCL 10 mEq 2021-03 Yes [id number] 10meq Take 1 [facility] tablet 1-11 tablet by ity of 00:00: mouth in [place] the Medical morning. Branch warfarin 2021-03 Yes [id number] Current [facility] mg tablet 1-11 dosage 10 ity o f 00:00: mg [place] [facility] and 7.5 Branch T/Th/S KCL 10 mEq 2021-03 Yes [id number] 10meq Take 1 [facility] tablet 1-11 tablet by ity of 00:00: mouth in [place] the Medical morning. Branch warfarin 2021-03 Yes [id number] Current [facility] mg tablet 1-11 dosage 10 ity o f 00:00: mg /W/F/[facility] and 7.5 Branch T/Th/S KCL 10 mEq 2021-03 Yes [id number] 10meq Take 1 [facility] tablet 1-11 tablet by ity of 00:00: mouth in [place] Medical morning. Branch warfarin 5 2021-03 Yes [id number] Current [facility] mg tablet 1-11 dosage 10 ity o f 00:00: mg /W/F/[facility] and 7.5 Branch T/Th/S warfarin 5 2021-03 Yes [id number] Current [facility] mg tablet 1-11 dosage 10 ity o f 00:00: mg /W/F/[facility] and 7.5 Branch T/Th/S warfarin 5 2021-03 Yes [id number] Current [facility] mg tablet 1-11 dosage 10 ity o f 00:00: mg /W/F/[facility] and 7.5 Branch T/Th/S warfarin 5 2021-03 Yes [id number] Current [facility] mg tablet 1-11 dosage 10 ity o f 00:00: mg /W//[facility] and 7.5 Branch T//S KCL 10 mEq 2021-03- No [id number] 10meq Take 1 [facility] tablet 1-11 12-16 tablet by ity of 00:00: 00:00 mouth in [place] 00 :00 the Medical morning. Branch OMEPRAZOLE 2021-03 Yes [id number] 40mg TAKE 1 [facility] 40 mg 1-03 CAPSULE BY ity of capsule 00:00: MOUTH DAILY Medical Branch OMEPRAZOLE 2021-03 Yes [id number] 40mg TAKE 1 [facility] 40 mg 1-03 CAPSULE BY ity of capsule 00:00: MOUTH DAILY Medical Branch OMEPRAZOLE 2021-03 Yes [id number] 40mg TAKE 1 [facility] 40 mg 1-03 CAPSULE BY ity of capsule 00:00: MOUTH DAILY Medical Branch OMEPRAZOLE 2021-03 Yes [id number] 40mg TAKE 1 [facility] 40 mg 1-03 CAPSULE BY ity of capsule 00:00: MOUTH DAILY Medical Branch OMEPRAZOLE 2021-03 Yes [id number] 40mg TAKE 1 [facility] 40 mg 1-03 CAPSULE BY ity of capsule 00:00: MOUTH DAILY Medical Branch OMEPRAZOLE 2021-03 Yes [id number] 40mg TAKE 1 [facility] 40 mg 1-03 CAPSULE BY ity of capsule 00:00: MOUTH [place] DAILY Medical Branch OMEPRAZOLE 2021-03 Yes [id number] 40mg TAKE 1 [facility] 40 mg 1-03 CAPSULE BY ity of capsule 00:00: MOUTH [place] DAILY Medical Branch OMEPRAZOLE 2021-03 Yes [id number] 40mg TAKE 1 [facility] 40 mg 1-03 CAPSULE BY ity of capsule 00:00: MOUTH [place] DAILY Medical Branch OMEPRAZOLE 2021-03 Yes [id number] 40mg TAKE 1 [facility] 40 mg 1-03 CAPSULE BY ity of capsule 00:00: MOUTH [place] DAILY Medical Branch OMEPRAZOLE 2021-03 Yes [id number] 40mg TAKE 1 [facility] 40 mg 1-03 CAPSULE BY ity of capsule 00:00: MOUTH [place] DAILY Medical Branch OMEPRAZOLE 2021-03 Yes [id number] 40mg TAKE 1 [facility] 40 mg 1-03 CAPSULE BY ity of capsule 00:00: MOUTH [place] DAILY Medical Branch OMEPRAZOLE 2021-03 Yes [id number] 40mg TAKE 1 [facility] 40 mg 1-03 CAPSULE BY ity of capsule 00:00: MOUTH [place] DAILY Medical Branch OMEPRAZOLE 2021-03 Yes [id number] 40mg TAKE 1 [facility] 40 mg 1-03 CAPSULE BY ity of capsule 00:00: MOUTH [place] DAILY Medical Branch OMEPRAZOLE 2021-03 Yes [id number] 40mg TAKE 1 [facility] 40 mg 1-03 CAPSULE BY ity of capsule 00:00: MOUTH [place] DAILY Medical Branch OMEPRAZOLE 2021- Yes [id number] 40mg TAKE 1 [facility] 40 mg 1-03 CAPSULE BY ity of capsule 00:00: MOUTH [place] DAILY Medical Branch OMEPRAZOLE 2021- Yes [id number] 40mg TAKE 1 [facility] 40 mg 1-03 CAPSULE BY ity of capsule 00:00: MOUTH [place] DAILY Medical Branch OMEPRAZOLE 2021-03 Yes [id number] 40mg TAKE 1 [facility] 40 mg 1-03 CAPSULE BY ity of capsule 00:00: MOUTH [place] DAILY Medical Branch OMEPRAZOLE 2021-03 Yes [id number] 40mg TAKE 1 [facility] 40 mg 1-03 CAPSULE BY ity of capsule 00:00: MOUTH [place] DAILY Medical Branch OMEPRAZOLE 2021-03 Yes [id number] 40mg TAKE 1 [facility] 40 mg 1-03 CAPSULE BY ity of capsule 00:00: MOUTH [place] 00 DAILY Medical Branch OMEPRAZOLE 2021- Yes [id number] 40mg TAKE 1 [facility] 40 mg 1-03 CAPSULE BY ity of capsule 00:00: MOUTH [place] 00 DAILY Medical Branch OMEPRAZOLE 2021- Yes [id number] 40mg TAKE 1 [facility] 40 mg 1-03 CAPSULE BY ity of capsule 00:00: MOUTH [place] 00 DAILY Medical Branch OMEPRAZOLE 2021- Yes [id number] 40mg TAKE 1 [facility] 40 mg 1-03 CAPSULE BY ity of capsule 00:00: MOUTH [place] 00 DAILY Medical Branch OMEPRAZOLE 2021- Yes [id number] 40mg TAKE 1 [facility] 40 mg 1-03 CAPSULE BY ity of capsule 00:00: MOUTH [place] 00 DAILY Medical Branch OMEPRAZOLE 2021- Yes [id number] 40mg TAKE 1 [facility] 40 mg 1-03 CAPSULE BY ity of capsule 00:00: MOUTH [place] 00 DAILY Medical Branch OMEPRAZOLE 2021- Yes [id number] 40mg TAKE 1 [facility] 40 mg 1-03 CAPSULE BY ity of capsule 00:00: MOUTH [place] DAILY Medical Branch GABAPENTIN 2021- Yes [id number] TAKE 2 [facility] 300 mg 1-03 CAPSULES ity of capsule 00:00: BY MOUTH [place] 00 TWICE Medical DAILY. Branch OMEPRAZOLE 2021- Yes [id number] 40mg TAKE 1 [facility] 40 mg 1-03 CAPSULE BY ity of capsule 00:00: MOUTH [place] 00 DAILY Medical Branch GABAPENTIN 2021- Yes [id number] TAKE 2 [facility] 300 mg 1-03 CAPSULES ity of capsule 00:00: BY MOUTH [place] 00 TWICE Medical DAILY. Branch OMEPRAZOLE 2021- Yes [id number] 40mg TAKE 1 [facility] 40 mg 1-03 CAPSULE BY ity of capsule 00:00: MOUTH [place] 00 DAILY Medical Branch GABAPENTIN 2021-1 Yes [id number] TAKE 2 [facility] 300 mg 1-03 CAPSULES ity of capsule 00:00: BY MOUTH [place] 00 TWICE Medical DAILY. Branch OMEPRAZOLE 2021- Yes [id number] 40mg TAKE 1 [facility] 40 mg 1-03 CAPSULE BY ity of capsule 00:00: MOUTH [place] 00 DAILY Medical Branch GABAPENTIN 2021- Yes [id number] TAKE 2 [facility] 300 mg 1-03 CAPSULES ity of capsule 00:00: BY MOUTH [place] 00 TWICE Medical DAILY. Branch OMEPRAZOLE 2021- Yes [id number] 40mg TAKE 1 [facility] 40 mg 1-03 CAPSULE BY ity of capsule 00:00: MOUTH [place] 00 DAILY Medical Branch GABAPENTIN 2021- Yes [id number] TAKE 2 [facility] 300 mg 1-03 CAPSULES ity of capsule 00:00: BY MOUTH [place] 00 TWICE Medical DAILY. Branch OMEPRAZOLE 2021- Yes [id number] 40mg TAKE 1 [facility] 40 mg 1-03 CAPSULE BY ity of capsule 00:00: MOUTH [place] 00 DAILY Medical Branch GABAPENTIN 2021- Yes [id number] TAKE 2 [facility] 300 mg 1-03 CAPSULES ity of capsule 00:00: BY MOUTH [place] 00 TWICE Medical DAILY. Branch OMEPRAZOLE 2021-03 Yes [id number] 40mg TAKE 1 [facility] 40 mg 1-03 CAPSULE BY ity of capsule 00:00: MOUTH [place] 00 DAILY Medical Branch GABAPENTIN 2021- Yes [id number] TAKE 2 [facility] 300 mg 1-03 CAPSULES ity of capsule 00:00: BY MOUTH [place] 00 TWICE Medical DAILY. Branch OMEPRAZOLE 2021- Yes [id number] 40mg TAKE 1 [facility] 40 mg 1-03 CAPSULE BY ity of capsule 00:00: MOUTH [place] 00 DAILY Medical Branch GABAPENTIN 2021- Yes [id number] TAKE 2 [facility] 300 mg 1-03 CAPSULES ity of capsule 00:00: BY MOUTH [place] 00 TWICE Medical DAILY. Branch OMEPRAZOLE 2021- Yes [id number] 40mg TAKE 1 [facility] 40 mg 1-03 CAPSULE BY ity of capsule 00:00: MOUTH [place] 00 DAILY Medical Branch GABAPENTIN 2021- Yes [id number] TAKE 2 [facility] 300 mg 1-03 CAPSULES ity of capsule 00:00: BY MOUTH [place] 00 TWICE Medical DAILY. Branch OMEPRAZOLE 2021- Yes [id number] 40mg TAKE 1 [facility] 40 mg 1-03 CAPSULE BY ity of capsule 00:00: MOUTH [place] 00 DAILY Medical Branch GABAPENTIN 2021- Yes [id number] TAKE 2 [facility] 300 mg 1-03 CAPSULES ity of capsule 00:00: BY MOUTH [place] 00 TWICE Medical DAILY. Branch OMEPRAZOLE 2021- Yes [id number] 40mg TAKE 1 [facility] 40 mg 1-03 CAPSULE BY ity of capsule 00:00: MOUTH [place] 00 DAILY Medical Branch GABAPENTIN 2021- Yes [id number] TAKE 2 [facility] 300 mg 1-03 CAPSULES ity of capsule 00:00: BY MOUTH [place] 00 TWICE Medical DAILY. Branch OMEPRAZOLE 2021-03 Yes [id number] 40mg TAKE 1 [facility] 40 mg 1-03 CAPSULE BY ity of capsule 00:00: MOUTH [place] 00 DAILY Medical Branch GABAPENTIN 2021- Yes [id number] TAKE 2 [facility] 300 mg 1-03 CAPSULES ity of capsule 00:00: BY MOUTH [place] 00 TWICE Medical DAILY. Branch OMEPRAZOLE 2021- Yes [id number] 40mg TAKE 1 [facility] 40 mg 1-03 CAPSULE BY ity of capsule 00:00: MOUTH [place] 00 DAILY Medical Branch GABAPENTIN 2021- Yes [id number] TAKE 2 [facility] 300 mg 1-03 CAPSULES ity of capsule 00:00: BY MOUTH [place] 00 TWICE Medical DAILY. Branch OMEPRAZOLE 2021-03 Yes [id number] 40mg TAKE 1 [facility] 40 mg 1-03 CAPSULE BY ity of capsule 00:00: MOUTH [place] 00 DAILY Medical Branch GABAPENTIN 2021- Yes [id number] TAKE 2 [facility] 300 mg 1-03 CAPSULES ity of capsule 00:00: BY MOUTH [place] 00 TWICE Medical DAILY. Branch OMEPRAZOLE 2021- Yes [id number] 40mg TAKE 1 [facility] 40 mg 1-03 CAPSULE BY ity of capsule 00:00: MOUTH [place] 00 DAILY Medical Branch GABAPENTIN 2021- Yes [id number] TAKE 2 [facility] 300 mg 1-03 CAPSULES ity of capsule 00:00: BY MOUTH [place] 00 TWICE Medical DAILY. Branch OMEPRAZOLE 2021-03 Yes [id number] 40mg TAKE 1 [facility] 40 mg 1-03 CAPSULE BY ity of capsule 00:00: MOUTH [place] 00 DAILY Medical Branch GABAPENTIN 2021- Yes [id number] TAKE 2 [facility] 300 mg 1-03 CAPSULES ity of capsule 00:00: BY MOUTH [place] 00 TWICE Medical DAILY. Branch OMEPRAZOLE 2021- Yes [id number] 40mg TAKE 1 [facility] 40 mg 1-03 CAPSULE BY ity of capsule 00:00: MOUTH [place] 00 DAILY Medical Branch GABAPENTIN 2021- Yes [id number] TAKE 2 [facility] 300 mg 1-03 CAPSULES ity of capsule 00:00: BY MOUTH [place] 00 TWICE Medical DAILY. Branch OMEPRAZOLE 2021- Yes [id number] 40mg TAKE 1 [facility] 40 mg 1-03 CAPSULE BY ity of capsule 00:00: MOUTH [place] 00 DAILY Medical Branch GABAPENTIN 2021- Yes [id number] TAKE 2 [facility] 300 mg 1-03 CAPSULES ity of capsule 00:00: BY MOUTH [place] 00 TWICE Medical DAILY. Branch OMEPRAZOLE 2021- Yes [id number] 40mg TAKE 1 [facility] 40 mg 1-03 CAPSULE BY ity of capsule 00:00: MOUTH [place] 00 DAILY Medical Branch GABAPENTIN 2021- Yes [id number] TAKE 2 [facility] 300 mg 1-03 CAPSULES ity of capsule 00:00: BY MOUTH [place] 00 TWICE Medical DAILY. Branch OMEPRAZOLE 2021- Yes [id number] 40mg TAKE 1 [facility] 40 mg 1-03 CAPSULE BY ity of capsule 00:00: MOUTH [place] 00 DAILY Medical Branch GABAPENTIN 2021- Yes [id number] TAKE 2 [facility] 300 mg 1-03 CAPSULES ity of capsule 00:00: BY MOUTH [place] 00 TWICE Medical DAILY. Branch OMEPRAZOLE 2021- Yes [id number] 40mg TAKE 1 [facility] 40 mg 1-03 CAPSULE BY ity of capsule 00:00: MOUTH [place] 00 DAILY Medical Branch GABAPENTIN 2021- Yes [id number] TAKE 2 [facility] 300 mg 1-03 CAPSULES ity of capsule 00:00: BY MOUTH [place] 00 TWICE Medical DAILY. Branch OMEPRAZOLE 2021- Yes [id number] 40mg TAKE 1 [facility] 40 mg 1-03 CAPSULE BY ity of capsule 00:00: MOUTH [place] 00 DAILY Medical Branch GABAPENTIN 2021- Yes [id number] TAKE 2 [facility] 300 mg 1-03 CAPSULES ity of capsule 00:00: BY MOUTH [place] 00 TWICE Medical DAILY. Branch OMEPRAZOLE 2021- Yes [id number] 40mg TAKE 1 [facility] 40 mg 1-03 CAPSULE BY ity of capsule 00:00: MOUTH [place] 00 DAILY Medical Branch GABAPENTIN 2021- Yes [id number] TAKE 2 [facility] 300 mg 1-03 CAPSULES ity of capsule 00:00: BY MOUTH [place] 00 TWICE Medical DAILY. Branch OMEPRAZOLE 2021- Yes [id number] 40mg TAKE 1 [facility] 40 mg 1-03 CAPSULE BY ity of capsule 00:00: MOUTH [place] 00 DAILY Medical Branch GABAPENTIN 2- Yes [id number] TAKE 2 [facility] 300 mg 1-03 CAPSULES ity of capsule 00:00: BY MOUTH [place] 00 TWICE Medical DAILY. Branch OMEPRAZOLE 2021- Yes [id number] 40mg TAKE 1 [facility] 40 mg 1-03 CAPSULE BY ity of capsule 00:00: MOUTH [place] 00 DAILY Medical Branch GABAPENTIN 2021-1 Yes [id number] TAKE 2 [facility] 300 mg 1-03 CAPSULES ity of capsule 00:00: BY MOUTH [place] 00 TWICE Medical DAILY. Branch OMEPRAZOLE 2021-03 Yes [id number] 40mg TAKE 1 [facility] 40 mg 1-03 CAPSULE BY ity of capsule 00:00: MOUTH [place] 00 DAILY Medical Branch GABAPENTIN 2021- Yes [id number] TAKE 2 [facility] 300 mg 1-03 CAPSULES ity of capsule 00:00: BY MOUTH [place] 00 TWICE Medical DAILY. Branch OMEPRAZOLE 2021-03 Yes [id number] 40mg TAKE 1 [facility] 40 mg 1-03 CAPSULE BY ity of capsule 00:00: MOUTH [place] 00 DAILY Medical Branch GABAPENTIN 2021- Yes [id number] TAKE 2 [facility] 300 mg 1-03 CAPSULES ity of capsule 00:00: BY MOUTH [place] 00 TWICE Medical DAILY. Branch OMEPRAZOLE 2021-03 Yes [id number] 40mg TAKE 1 [facility] 40 mg 1-03 CAPSULE BY ity of capsule 00:00: MOUTH [place] DAILY Medical Branch OMEPRAZOLE 2021- Yes [id number] 40mg TAKE 1 [facility] 40 mg 1-03 CAPSULE BY ity of capsule 00:00: MOUTH [place] DAILY Medical Branch OMEPRAZOLE 2021- Yes [id number] 40mg TAKE 1 [facility] 40 mg 1-03 CAPSULE BY ity of capsule 00:00: MOUTH [place] DAILY Medical Branch OMEPRAZOLE 2021- Yes [id number] 40mg TAKE 1 [facility] 40 mg 1-03 CAPSULE BY ity of capsule 00:00: MOUTH [place] DAILY Medical Branch OMEPRAZOLE 2021-03 Yes [id number] 40mg TAKE 1 [facility] 40 mg 1-03 CAPSULE BY ity of capsule 00:00: MOUTH [place] DAILY Medical Branch OMEPRAZOLE 2021- Yes [id number] 40mg TAKE 1 [facility] 40 mg 1-03 CAPSULE BY ity of capsule 00:00: MOUTH [place] DAILY Medical Branch OMEPRAZOLE 2021- Yes [id number] 40mg TAKE 1 [facility] 40 mg 1-03 CAPSULE BY ity of capsule 00:00: MOUTH [place] DAILY Medical Branch OMEPRAZOLE 2021- Yes [id number] 40mg TAKE 1 [facility] 40 mg 1-03 CAPSULE BY ity of capsule 00:00: MOUTH [place] DAILY Medical Branch OMEPRAZOLE 2021- Yes [id number] 40mg TAKE 1 [facility] 40 mg 1-03 CAPSULE BY ity of capsule 00:00: MOUTH [place] 00 DAILY Medical Branch OMEPRAZOLE 2021-03 Yes [id number] 40mg TAKE 1 [facility] 40 mg 1-03 CAPSULE BY ity of capsule 00:00: MOUTH [place] 00 DAILY Medical Branch OMEPRAZOLE 2021-03 Yes [id number] 40mg TAKE 1 [facility] 40 mg 1-03 CAPSULE BY ity of capsule 00:00: MOUTH [place] 00 DAILY Medical Branch GABAPENTIN 2021-2021- No [id number] TAKE 2 [facility] 300 mg 1-03 12-14 CAPSULES ity of capsule 00:00: 00:00 BY MOUTH [place] 00 :00 TWICE Medical DAILY. Branch GABAPENTIN 2021-03- No [id number] TAKE 2 [facility] 300 mg 1-03 12-14 CAPSULES ity of capsule 00:00: 00:00 BY MOUTH [place] 00 :00 TWICE Medical DAILY. Branch mexiletine 2021-03 Yes [id number] 200mg Take 1 [facility] 200 mg 0-27 capsule by ity of capsule 00:00: mouth [place] 00 every 8 Medical (eight) Branch hours. mexiletine 2021-03 Yes [id number] 200mg Take 1 [facility] 200 mg 0-27 capsule by ity of capsule 00:00: mouth [place] 00 every 8 Medical (eight) Branch hours. mexiletine 2021-03 Yes [id number] 200mg Take 1 [facility] 200 mg 0-27 capsule by ity of capsule 00:00: mouth [place] 00 every 8 Medical (eight) Branch hours. mexiletine 2021-03 Yes [id number] 200mg Take 1 [facility] 200 mg 0-27 capsule by ity of capsule 00:00: mouth [place] 00 every 8 Medical (eight) Branch hours. mexiletine 2021-03 Yes [id number] 200mg Take 1 [facility] 200 mg 0-27 capsule by ity of capsule 00:00: mouth [place] 00 every 8 Medical (eight) Branch hours. mexiletine 2021-03 Yes [id number] 200mg Take 1 [facility] 200 mg 0-27 capsule by ity of capsule 00:00: mouth [place] 00 every 8 Medical (eight) Branch hours. mexiletine 2021-03 Yes [id number] 200mg Take 1 [facility] 200 mg 0-27 capsule by ity of capsule 00:00: mouth [place] 00 every 8 Medical (eight) Branch hours. mexiletine 2021-03 Yes [id number] 200mg Take 1 [facility] 200 mg 0-27 capsule by ity of capsule 00:00: mouth [place] 00 every 8 Medical (eight) Branch hours. mexiletine 2021- Yes [id number] 200mg Take 1 [facility] 200 mg 0-27 capsule by ity of capsule 00:00: mouth [place] 00 every 8 Medical (eight) Branch hours. mexiletine 2021-1 Yes [id number] 200mg Take 1 [facility] 200 mg 0-27 capsule by ity of capsule 00:00: mouth [place] 00 every 8 Medical (eight) Branch hours. mexiletine 2021- Yes [id number] 200mg Take 1 [facility] 200 mg 0-27 capsule by ity of capsule 00:00: mouth [place] 00 every 8 Medical (eight) Branch hours. mexiletine 2021-1 Yes [id number] 200mg Take 1 [facility] 200 mg 0-27 capsule by ity of capsule 00:00: mouth [place] 00 every 8 Medical (eight) Branch hours. mexiletine 2021- Yes [id number] 200mg Take 1 [facility] 200 mg 0-27 capsule by ity of capsule 00:00: mouth [place] 00 every 8 Medical (eight) Branch hours. mexiletine 2021- Yes [id number] 200mg Take 1 [facility] 200 mg 0-27 capsule by ity of capsule 00:00: mouth [place] 00 every 8 Medical (eight) Branch hours. mexiletine 2021-1 Yes [id number] 200mg Take 1 [facility] 200 mg 0-27 capsule by ity of capsule 00:00: mouth [place] 00 every 8 Medical (eight) Branch hours. mexiletine 2021-1 Yes [id number] 200mg Take 1 [facility] 200 mg 0-27 capsule by ity of capsule 00:00: mouth [place] 00 every 8 Medical (eight) Branch hours. mexiletine 2021-1 Yes [id number] 200mg Take 1 [facility] 200 mg 0-27 capsule by ity of capsule 00:00: mouth [place] 00 every 8 Medical (eight) Branch hours. mexiletine 2021-1 Yes [id number] 200mg Take 1 [facility] 200 mg 0-27 capsule by ity of capsule 00:00: mouth [place] 00 every 8 Medical (eight) Branch hours. mexiletine 2-1 Yes [id number] 200mg Take 1 [facility] 200 mg 0-27 capsule by ity of capsule 00:00: mouth [place] 00 every 8 Medical (eight) Branch hours. mexiletine 2021-1 Yes [id number] 200mg Take 1 [facility] 200 mg 0-27 capsule by ity of capsule 00:00: mouth [place] 00 every 8 Medical (eight) Branch hours. mexiletine 2021- Yes [id number] 200mg Take 1 [facility] 200 mg 0-27 capsule by ity of capsule 00:00: mouth [place] 00 every 8 Medical (eight) Branch hours. mexiletine 2021- Yes [id number] 200mg Take 1 [facility] 200 mg 0-27 capsule by ity of capsule 00:00: mouth [place] 00 every 8 Medical (eight) Branch hours. mexiletine 2021-03 Yes [id number] 200mg Take 1 [facility] 200 mg 0-27 capsule by ity of capsule 00:00: mouth [place] 00 every 8 Medical (eight) Branch hours. mexiletine 2021- Yes [id number] 200mg Take 1 [facility] 200 mg 0-27 capsule by ity of capsule 00:00: mouth [place] 00 every 8 Medical (eight) Branch hours. mexiletine 2021-03 Yes [id number] 200mg Take 1 [facility] 200 mg 0-27 capsule by ity of capsule 00:00: mouth [place] 00 every 8 Medical (eight) Branch hours. mexiletine 2021-03 Yes [id number] 200mg Take 1 [facility] 200 mg 0-27 capsule by ity of capsule 00:00: mouth [place] 00 every 8 Medical (eight) Branch hours. mexiletine 2021-03 Yes [id number] 200mg Take 1 [facility] 200 mg 0-27 capsule by ity of capsule 00:00: mouth [place] 00 every 8 Medical (eight) Branch hours. mexiletine 2021-03 Yes [id number] 200mg Take 1 [facility] 200 mg 0-27 capsule by ity of capsule 00:00: mouth [place] 00 every 8 Medical (eight) Branch hours. mexiletine 2021-03 Yes [id number] 200mg Take 1 [facility] 200 mg 0-27 capsule by ity of capsule 00:00: mouth [place] 00 every 8 Medical (eight) Branch hours. mexiletine 2021-1 Yes [id number] 200mg Take 1 [facility] 200 mg 0-27 capsule by ity of capsule 00:00: mouth [place] 00 every 8 Medical (eight) Branch hours. mexiletine 2021- Yes [id number] 200mg Take 1 [facility] 200 mg 0-27 capsule by ity of capsule 00:00: mouth [place] 00 every 8 Medical (eight) Branch hours. mexiletine 2022-1 Yes [id number] 200mg Take 1 [facility] 200 mg 0-27 capsule by ity of capsule 00:00: mouth [place] 00 every 8 Medical (eight) Branch hours. mexiletine 2021-1 Yes [id number] 200mg Take 1 [facility] 200 mg 0-27 capsule by ity of capsule 00:00: mouth [place] 00 every 8 Medical (eight) Branch hours. mexiletine 2021-1 Yes [id number] 200mg Take 1 [facility] 200 mg 0-27 capsule by ity of capsule 00:00: mouth [place] 00 every 8 Medical (eight) Branch hours. mexiletine 2021-1 Yes [id number] 200mg Take 1 [facility] 200 mg 0-27 capsule by ity of capsule 00:00: mouth [place] 00 every 8 Medical (eight) Branch hours. mexiletine 2021-1 Yes [id number] 200mg Take 1 [facility] 200 mg 0-27 capsule by ity of capsule 00:00: mouth [place] 00 every 8 Medical (eight) Branch hours. mexiletine 2021-1 Yes [id number] 200mg Take 1 [facility] 200 mg 0-27 capsule by ity of capsule 00:00: mouth [place] 00 every 8 Medical (eight) Branch hours. mexiletine 2021-1 Yes [id number] 200mg Take 1 [facility] 200 mg 0-27 capsule by ity of capsule 00:00: mouth [place] 00 every 8 Medical (eight) Branch hours. mexiletine 2021-1 Yes [id number] 200mg Take 1 [facility] 200 mg 0-27 capsule by ity of capsule 00:00: mouth [place] 00 every 8 Medical (eight) Branch hours. mexiletine 2021-1 Yes [id number] 200mg Take 1 [facility] 200 mg 0-27 capsule by ity of capsule 00:00: mouth [place] 00 every 8 Medical (eight) Branch hours. mexiletine 2-1 Yes [id number] 200mg Take 1 [facility] 200 mg 0-27 capsule by ity of capsule 00:00: mouth [place] 00 every 8 Medical (eight) Branch hours. mexiletine 2-1 Yes [id number] 200mg Take 1 [facility] 200 mg 0-27 capsule by ity of capsule 00:00: mouth [place] 00 every 8 Medical (eight) Branch hours. mexiletine 2-1 Yes [id number] 200mg Take 1 [facility] 200 mg 0-27 capsule by ity of capsule 00:00: mouth [place] 00 every 8 Medical (eight) Branch hours. mexiletine 2021- Yes [id number] 200mg Take 1 [facility] 200 mg 0-27 capsule by ity of capsule 00:00: mouth [place] 00 every 8 Medical (eight) Branch hours. mexiletine 2021-1 Yes [id number] 200mg Take 1 [facility] 200 mg 0-27 capsule by ity of capsule 00:00: mouth [place] 00 every 8 Medical (eight) Branch hours. mexiletine 2021- Yes [id number] 200mg Take 1 [facility] 200 mg 0-27 capsule by ity of capsule 00:00: mouth [place] 00 every 8 Medical (eight) Branch hours. mexiletine 2021- Yes [id number] 200mg Take 1 [facility] 200 mg 0-27 capsule by ity of capsule 00:00: mouth [place] 00 every 8 Medical (eight) Branch hours. mexiletine 2021- Yes [id number] 200mg Take 1 [facility] 200 mg 0-27 capsule by [facility] of capsule 00:00: mouth [place] 00 every 8 Medical (eight) Branch hours. mexiletine 2021-03 Yes [id number] 200mg Take 1 [facility] 200 mg 0-27 capsule by [facility] of capsule 00:00: mouth [place] 00 every 8 Medical (eight) Branch hours. mexiletine 2021- Yes [id number] 200mg Take 1 [facility] 200 mg 0-27 capsule by [facility] of capsule 00:00: mouth [place] 00 every 8 Medical (eight) Branch hours. mexiletine 2021-1 Yes [id number] 200mg Take 1 [facility] 200 mg 0-27 capsule by [facility] of capsule 00:00: mouth [place] 00 every 8 Medical (eight) Branch hours. mexiletine 2021-1 Yes [id number] 200mg Take 1 [facility] 200 mg 0-27 capsule by [facility] of capsule 00:00: mouth [place] 00 every 8 Medical (eight) Branch hours. mexiletine 2021-1 Yes [id number] 200mg Take 1 [facility] 200 mg 0-27 capsule by [facility] of capsule 00:00: mouth [place] 00 every 8 Medical (eight) Branch hours. mexiletine 2021-1 Yes [id number] 200mg Take 1 [facility] 200 mg 0-27 capsule by [facility] of capsule 00:00: mouth [place] 00 every 8 Medical (eight) Branch hours. mexiletine 2021-1 Yes [id number] 200mg Take 1 [facility] 200 mg 0-27 capsule by [facility] of capsule 00:00: mouth [place] 00 every 8 Medical (eight) Branch hours. mexiletine 2021-03 Yes [id number] 200mg Take 1 [facility] 200 mg 0-27 capsule by [facility] of capsule 00:00: mouth [place] 00 every 8 Medical (eight) Branch hours. mexiletine 2021-03 Yes [id number] 200mg Take 1 [facility] 200 mg 0-27 capsule by [facility] of capsule 00:00: mouth [place] 00 every 8 Medical (eight) Branch hours. mexiletine 2021-03 2023- No [id number] 200mg Take 1 [facility] 200 mg 0-27 04-17 capsule by [facility] of capsule 00:00: 00:00 mouth [place] 00 :00 every 8 Medical (eight) Branch hours. warfarin 2021-03 Yes [id number] 10mg Take 2 [facility] mg tablet 0-26 tablets by ity of 00:00: mouth [place] 00 every Medical evening. Branch Current dosage 10mg x 5 days/week, 7.5mg x 2 days /week warfarin 2021-03 Yes [id number] 10mg Take 2 [facility] mg tablet 0-26 tablets by ity of 00:00: mouth [place] 00 every Medical evening. Branch Current dosage 10mg x 5 days/week, 7.5mg x 2 days /week warfarin 2021-03 Yes [id number] 10mg Take 2 [facility] mg tablet 0-26 tablets by ity of 00:00: mouth [place] 00 every Medical evening. Branch Current dosage 10mg x 5 days/week, 7.5mg x 2 days /week warfarin 2021-03 Yes [id number] 10mg Take 2 [facility] mg tablet 0-26 tablets by ity of 00:00: mouth [place] 00 every Medical evening. Branch Current dosage 10mg x 5 days/week, 7.5mg x 2 days /week warfarin 2021-03 Yes [id number] 10mg Take 2 [facility] mg tablet 0-26 tablets by ity of 00:00: mouth [place] 00 every Medical evening. Branch Current dosage 10mg x 5 days/week, 7.5mg x 2 days /week warfarin 5 2021-03 Yes [id number] 10mg Take 2 [facility] mg tablet 0-26 tablets by ity of 00:00: mouth [place] 00 every Medical evening. Branch Current dosage 10mg x 5 days/week, 7.5mg x 2 days /week warfarin 2021-03 Yes [id number] 10mg Take 2 [facility] mg tablet 0-26 tablets by ity of 00:00: mouth [place] 00 every Medical evening. Branch Current dosage 10mg x 5 days/week, 7.5mg x 2 days /week warfarin 5 2021-03 Yes [id number] 10mg Take 2 [facility] mg tablet 0-26 tablets by ity of 00:00: mouth [place] 00 every Medical evening. Branch Current dosage 10mg x 5 days/week, 7.5mg x 2 days /week warfarin 5 2021-03- No [id number] 10mg Take 2 [facility] mg tablet 0-26 11-11 tablets by ity of 00:00: 00:00 mouth [place] 00 :00 every Medical evening. Branch Current dosage 10mg x 5 days/week, 7.5mg x 2 days /week warfarin 2021-03 Yes [id number] 7.5mg Take 1 [facility] 7.5 mg 0-14 tablet by ity of tablet 00:00: mouth [place] 00 every Medical evening. Branch Current dosage 10mg 5xweek and 7.5mg 2xweek warfarin 2021-03- No [id number] 7.5mg Take 1 [facility] 7.5 mg 0-14 [...] by ity of tablet 14:18: mouth in [place] [address] the Medical morning. Branch bumetanide Yes 2mg [...] by ity of tablet 14:18: mouth in [place] [address] the Medical morning. Branch bumetanide Yes 2mg [...] by ity of tablet 14:18: mouth in [place] [address] the Medical morning. Branch bumetanide Yes 2mg Take 2 mg [facility] 2 mg tablet 9-29 by mouth ity of 14:18: daily. 3 [place] 32 mg AM and Medical 2 mg PM. Branch KCL 10 mEq 2022-0 Yes 10meq Take 10 [facility] vers tablet [...] 9-29 mEq by ity of 14:18: mouth [place] 32 daily. Medical Branch spironolact 2021-0 Yes 12.5mg Take 12.5 [facility] one 25 mg 9-29 mg by ity of tablet 14:18: mouth in [place] [address] the Medical morning. Branch bumetanide 2021-0 Yes 2mg Take 2 mg [facility] 2 mg tablet 9-29 by mouth ity of 14:18: daily. 3 [place] 32 mg AM and Medical 2 mg PM. Branch KCL 10 mEq 2021-0 Yes 10meq Take 10 [facility] vers tablet 9-29 mEq by ity of 14:18: mouth [place] 32 daily. Medical Branch spironolact 2021-0 Yes 12.5mg Take 12.5 [facility] one 25 mg 9-29 mg by ity of tablet 14:18: mouth in [place] [address] the Medical morning. Branch bumetanide 2021-0 Yes 2mg Take 2 mg [facility] 2 mg tablet 9-29 by mouth ity of 14:18: daily. 3 [place] 32 mg AM and Medical 2 mg PM. Branch spironolact 2021-0 Yes 12.5mg Take 12.5 [facility] one 25 mg 9-29 mg by ity of tablet 14:18: mouth in [place] [address] the Medical morning. Branch bumetanide 2-0 Yes 2mg Take 2 mg [facility] 2 mg tablet 9-29 by mouth ity of 14:18: daily. 3 [place] 32 mg AM and Medical 2 mg PM. Branch spironolact 2021-0 Yes 12.5mg Take 12.5 [facility] one 25 mg 9-29 mg by ity of tablet 14:18: mouth in [place] [address] the Medical morning. Branch bumetanide 2-0 Yes 2mg Take 2 mg [facility] 2 mg tablet 9-29 by mouth ity of 14:18: daily. 3 [place] 32 mg AM and Medical 2 mg PM. Branch spironolact 2-0 Yes 12.5mg Take 12.5 [facility] one 25 mg 9-29 mg by ity of tablet 14:18: mouth in [place] [address] the Medical morning. Branch bumetanide 2-0 Yes 2mg Take 2 mg [facility] 2 mg tablet 9-29 by mouth ity of 14:18: daily. 3 [place] 32 mg AM and Medical 2 mg PM. Branch spironolact 2022-0 Yes 12.5mg Take 12.5 [facility] one 25 mg 9-29 mg by ity of tablet 14:18: mouth in [place] [address] the Medical morning. Branch bumetanide 2022-0 Yes 2mg Take 2 mg [facility] [place] 2 mg tablet 9-29 by mouth ity of 14:18: daily. 3 [place] 32 mg AM and Medical 2 mg PM. Branch spironolact 2022-0 Yes 12.5mg Take 12.5 [facility] one 25 mg 9-29 mg by ity of tablet 14:18: mouth in [place] [address] the Medical morning. Branch bumetanide 2022-0 Yes 2mg Take 2 mg [facility] 2 mg tablet 9-29 by mouth ity of 14:18: daily. 3 [place] 32 mg AM and Medical 2 mg PM. Branch spironolact 2022-0 Yes 12.5mg Take 12.5 [facility] one 25 mg 9-29 mg by ity of tablet 14:18: mouth in [place] [address] the Medical morning. Branch bumetanide 2022-0 Yes 2mg Take 2 mg [facility] [place] 2 mg tablet 9-29 by mouth ity of 14:18: daily. 3 [place] 32 mg AM and Medical 2 mg PM. Branch spironolact 2022-0 Yes 12.5mg Take 12.5 [facility] one 25 mg 9-29 mg by ity of tablet 14:18: mouth in [place] [address] the Medical morning. Branch bumetanide 2022-0 Yes 2mg Take 2 mg [facility] [place] 2 mg tablet 9-29 by mouth ity of 14:18: daily. 3 [place] 32 mg AM and Medical 2 mg PM. Branch spironolact 2022-0 Yes 12.5mg Take 12.5 [facility] one 25 mg 9-29 mg by ity of tablet 14:18: mouth in [place] [address] the Medical morning. Branch bumetanide 2022-0 Yes 2mg Take 2 mg [facility] [place] 2 mg tablet 9-29 by mouth ity of 14:18: daily. 3 [place] 32 mg AM and Medical 2 mg PM. Branch spironolact 2022-0 Yes 12.5mg Take 12.5 [facility] one 25 mg 9-29 mg by ity of tablet 14:18: mouth in [place] [address] the Medical morning. Branch bumetanide 2022-0 Yes 2mg Take 2 mg [facility] 2 mg tablet 9-29 by mouth ity of 14:18: daily. 3 [place] 32 mg AM and Medical 2 mg PM. Branch spironolact 2022-0 Yes 12.5mg Take 12.5 [facility] one 25 mg 9-29 mg by ity of tablet 14:18: mouth in [place] [address] the Medical morning. Branch bumetanide 2022-0 Yes 2mg Take 2 mg [facility] [place] 2 mg tablet 9-29 by mouth ity of 14:18: daily. 3 [place] 32 mg AM and Medical 2 mg PM. Branch spironolact 2022-0 Yes 12.5mg Take 12.5 [facility] one 25 mg 9-29 mg by ity of tablet 14:18: mouth in [place] [address] the Medical morning. Branch bumetanide 2022-0 Yes 2mg Take 2 mg [facility] [place] 2 mg tablet 9-29 by mouth ity of 14:18: daily. 3 [place] 32 mg AM and Medical 2 mg PM. Branch spironolact 2-0 Yes 12.5mg Take 12.5 [facility] one 25 mg 9-29 mg by ity of tablet 14:18: mouth in [place] [address] the Medical morning. Branch bumetanide 2-0 Yes 2mg Take 2 mg [facility] [place] 2 mg tablet 9-29 by mouth ity of 14:18: daily. 3 [place] 32 mg AM and Medical 2 mg PM. Branch spironolact 2-0 Yes 12.5mg Take 12.5 [facility] one 25 mg 9-29 mg by ity of tablet 14:18: mouth in [place] [address] the Medical morning. Branch bumetanide 2022-0 Yes 2mg Take 2 mg [facility] [place] 2 mg tablet 9-29 by mouth ity of 14:18: daily. 3 [place] 32 mg AM and Medical 2 mg PM. Branch spironolact 2022-0 Yes 12.5mg Take 12.5 [facility] one 25 mg 9-29 mg by ity of tablet 14:18: mouth in [place] [address] the Medical morning. Branch bumetanide 2022-0 Yes 2mg Take 2 mg [facility] 2 mg tablet 9-29 by mouth ity of 14:18: daily. 3 [place] 32 mg AM and Medical 2 mg PM. Branch spironolact 2022-0 Yes 12.5mg Take 12.5 [facility] one 25 mg 9-29 mg by ity of tablet 14:18: mouth in [place] [address] the Medical morning. Branch bumetanide 2022-0 Yes 2mg Take 2 mg [facility] [place] 2 mg tablet 9-29 by mouth ity of 14:18: daily. 3 [place] 32 mg AM and Medical 2 mg PM. Branch spironolact 2022-0 Yes 12.5mg Take 12.5 [facility] one 25 mg 9-29 mg by ity of tablet 14:18: mouth in [place] [address] the Medical morning. Branch bumetanide 2022-0 Yes 2mg Take 2 mg [facility] [place] 2 mg tablet 9-29 by mouth ity of 14:18: daily. 3 [place] 32 mg AM and Medical 2 mg PM. Branch spironolact 2022-0 Yes 12.5mg Take 12.5 [facility] one 25 mg 9-29 mg by ity of tablet 14:18: mouth in [place] [address] the Medical morning. Branch bumetanide 2022-0 Yes 2mg Take 2 mg [facility] [place] 2 mg tablet 9-29 by mouth ity of 14:18: daily. 3 [place] 32 mg AM and Medical 2 mg PM. Branch spironolact 2022-0 Yes 12.5mg Take 12.5 [facility] one 25 mg 9-29 mg by ity of tablet 14:18: mouth in [place] [address] the Medical morning. Branch bumetanide 2022-0 Yes 2mg Take 2 mg [facility] [place] 2 mg tablet 9-29 by mouth ity of 14:18: daily. 3 [place] 32 mg AM and Medical 2 mg PM. Branch spironolact 2022-0 Yes 12.5mg Take 12.5 [facility] one 25 mg 9-29 mg by ity of tablet 14:18: mouth in [place] [address] the Medical morning. Branch bumetanide 2022-0 Yes 2mg Take 2 mg [facility] [place] 2 mg tablet 9-29 by mouth ity of 14:18: daily. 3 [place] 32 mg AM and Medical 2 mg PM. Branch spironolact 2022-0 Yes 12.5mg Take 12.5 [facility] one 25 mg 9-29 mg by ity of tablet 14:18: mouth in [place] [address] the Medical morning. Branch bumetanide 2022-0 Yes 2mg Take 2 mg [facility] [place] 2 mg tablet 9-29 by mouth ity of 14:18: daily. 3 [place] 32 mg AM and Medical 2 mg PM. Branch spironolact 2022-0 Yes 12.5mg Take 12.5 [facility] one 25 mg 9-29 mg by ity of tablet 14:18: mouth in [place] [address] the Medical morning. Branch bumetanide 2022-0 Yes 2mg Take 2 mg [facility] [place] 2 mg tablet 9-29 by mouth ity of 14:18: daily. 3 [place] 32 mg AM and Medical 2 mg PM. Branch spironolact 2022-0 Yes 12.5mg Take 12.5 [facility] one 25 mg 9-29 mg by ity of tablet 14:18: mouth in [place] [address] the Medical morning. Branch bumetanide 2022-0 Yes 2mg Take 2 mg [facility] 2 mg tablet 9-29 by mouth ity of 14:18: daily. 3 [place] 32 mg AM and Medical 2 mg PM. Branch spironolact 2022-0 Yes 12.5mg Take 12.5 [facility] one 25 mg 9-29 mg by ity of tablet 14:18: mouth in [place] [address] the Medical morning. Branch bumetanide 2022-0 Yes 2mg Take 2 mg [facility] [place] 2 mg tablet 9-29 by mouth ity of 14:18: daily. 3 [place] 32 mg AM and Medical 2 mg PM. Branch spironolact 2022-0 Yes 12.5mg Take 12.5 [facility] one 25 mg 9-29 mg by ity of tablet 14:18: mouth in [place] [address] the Medical morning. Branch bumetanide 2022-0 Yes 2mg Take 2 mg [facility] [place] 2 mg tablet 9-29 by mouth ity of 14:18: daily. 3 [place] 32 mg AM and Medical 2 mg PM. Branch spironolact 2022-0 Yes 12.5mg Take 12.5 [facility] one 25 mg 9-29 mg by ity of tablet 14:18: mouth in [place] [address] the Medical morning. Branch bumetanide 2022-0 Yes 2mg Take 2 mg [facility] [place] 2 mg tablet 9-29 by mouth ity of 14:18: daily. 3 [place] 32 mg AM and Medical 2 mg PM. Branch spironolact 2022-0 Yes 12.5mg Take 12.5 [facility] one 25 mg 9-29 mg by ity of tablet 14:18: mouth in [place] [address] the Medical morning. Branch bumetanide 2022-0 Yes 2mg Take 2 mg [facility] [place] 2 mg tablet 9-29 by mouth ity of 14:18: daily. 3 [place] 32 mg AM and Medical 2 mg PM. Branch spironolact 2022-0 Yes 12.5mg Take 12.5 [facility] one 25 mg 9-29 mg by ity of tablet 14:18: mouth in [place] [address] the Medical morning. Branch bumetanide 2022-0 Yes 2mg Take 2 mg [facility] [place] 2 mg tablet 9-29 by mouth ity of 14:18: daily. 3 [place] 32 mg AM and Medical 2 mg PM. Branch spironolact 2022-0 Yes 12.5mg Take 12.5 [facility] one 25 mg 9-29 mg by ity of tablet 14:18: mouth in [place] [address] the Medical morning. Branch bumetanide 2022-0 Yes 2mg Take 2 mg [facility] [place] 2 mg tablet 9-29 by mouth ity of 14:18: daily. 3 [place] 32 mg AM and Medical 2 mg PM. Branch spironolact 2022-0 Yes 12.5mg Take 12.5 [facility] one 25 mg 9-29 mg by ity of tablet 14:18: mouth in [place] [address] the Medical morning. Branch bumetanide 2022-0 Yes 2mg Take 2 mg [facility] [place] 2 mg tablet 9-29 by mouth ity of 14:18: daily. 3 [place] 32 mg AM and Medical 2 mg PM. Branch spironolact 2022-0 Yes 12.5mg Take 12.5 [facility] one 25 mg 9-29 mg by ity of tablet 14:18: mouth in [place] [address] the Medical morning. Branch bumetanide 2022-0 Yes 2mg Take 2 mg [facility] [place] 2 mg tablet 9-29 by mouth ity of 14:18: daily. 3 [place] 32 mg AM and Medical 2 mg PM. Branch spironolact 2022-0 Yes 12.5mg Take 12.5 [facility] one 25 mg 9-29 mg by ity of tablet 14:18: mouth in [place] [address] the Medical morning. Branch bumetanide 2022-0 Yes 2mg Take 2 mg [facility] [place] 2 mg tablet 9-29 by mouth ity of 14:18: daily. 3 [place] 32 mg AM and Medical 2 mg PM. Branch spironolact 2022-0 Yes 12.5mg Take 12.5 [facility] one 25 mg 9-29 mg by ity of tablet 14:18: mouth in [place] 32 the Medical morning. Branch spironolact 2021-0 Yes [...] and Medical 2 mg PM. Branch bumetanide 2-0 Yes 2mg Take 2 mg [facility] [place] 2 mg tablet 9-22 by mouth ity of 10:06: daily. 3 [place] 49 mg AM and Medical 2 mg PM. Branch bumetanide 2-0 Yes 2mg Take 2 mg [facility] [place] 2 mg tablet 9-22 by mouth ity of 10:06: daily. 3 [place] 49 mg AM and Medical 2 mg PM. Branch bumetanide 2-0 Yes 2mg Take 2 mg [facility] [place] 2 mg tablet 9-22 by mouth ity of 10:06: daily. 3 [place] 49 mg AM and Medical 2 mg PM. Branch potassium 2021-0 2022- No 10meq 10 mEq, IV [facility] chloride in 11-25 Piggyback, i ty of water 10 05:45: 06:18 ONCE, 1 [place] mEq/100 mL 00 :00 dose, On Medic al RTU 10 mEq Fri Branch 11/25/21 at 0045, Administer over 60 Minutes, 100 mL potassium No 10meq 10 mEq, IV [facility] chloride [...] On [place] 11/24/21 at 2230, Routine KCL No 40meq 40 mEq, [facility] (KLOR-CON 11-25 Oral, ity of M20) tablet 02:45: 02:59 [place]CE, 1 [place] mEq 00 :00 dose, On Medical [place] Branch 11/24/21 at 2145, BE bumetanide Yes 2mg Take 2 mg Un [...] mouth [place] 48 daily. Medical Branch spironolact 2021- No 25mg Take 25 mg [facility] one 25 mg 11-24 by mouth ity o f tablet 20:29: 00:00 daily. [place] 48 :00 Medical Branch SERTraline 0 Yes [id number] 100mg Take 1 [facility] 100 mg 9-14 tablet by ity of tablet 00:00: mouth in [place] [address] the Medical morning Branch and 1 tablet in the evening. SERTraline 2022-0 Yes [id number] 100mg Take 1 [facility] 100 mg 9-14 tablet by ity of tablet 00:00: mouth in [place] [address] the Medical morning Branch and 1 tablet in the evening. SERTraline 2022-0 Yes [id number] 100mg Take 1 [facility] 100 mg 9-14 tablet by ity of tablet 00:00: mouth in [place] [address] the Medical morning Branch and 1 tablet in the evening. SERTraline 2-0 Yes [id number] 100mg Take 1 [facility] 100 mg 9-14 tablet by ity of tablet 00:00: mouth in [place] [address] the Medical morning Branch and 1 tablet in the evening. SERTraline 2-0 Yes [id number] 100mg Take 1 [facility] 100 mg 9-14 tablet by ity of tablet 00:00: mouth in [place] [address] the Medical morning [place] and 1 tablet in the evening. SERTraline 2-0 Yes [id number] 100mg Take 1 [facility] 100 mg 9-14 tablet by ity of tablet 00:00: mouth in [address] Medical morning [place] and 1 tablet in the evening. SERTraline 2-0 Yes [id number] 100mg Take 1 [facility] 100 mg 9-14 tablet by ity of tablet 00:00: mouth in [place] [address] the [facility] morning [place] and 1 tablet in the evening. SERTraline 2-0 Yes [id number] 100mg Take 1 [facility] 100 mg 9-14 tablet by ity of tablet 00:00: mouth in [place] [address] the Medical morning [place] and 1 tablet in the evening. SERTraline 2-0 Yes [id number] 100mg Take 1 [facility] 100 mg 9-14 tablet by ity of tablet 00:00: mouth in [address] morning [place] and 1 tablet in the evening. SERTraline 2022-0 Yes [id number] 100mg Take 1 [facility] 100 mg 9-14 tablet by ity of tablet 00:00: mouth in [address] morning [place] and 1 tablet in the evening. SERTraline 2022-0 Yes [id number] 100mg Take 1 [facility] 100 mg 9-14 tablet by ity of tablet 00:00: mouth in [address] morning [place] and 1 tablet in the evening. SERTraline 2022-0 Yes [id number] 100mg Take 1 [facility] 100 mg 9-14 tablet by ity of tablet 00:00: mouth in [place] [address] the Medical morning Branch and 1 tablet in the evening. SERTraline 2022-0 Yes [id number] 100mg Take 1 [facility] 100 mg 9-14 tablet by ity of tablet 00:00: mouth in [place] [address] the Medical morning Branch and 1 tablet in the evening. SERTraline 2022-0 Yes [id number] 100mg Take 1 [facility] 100 mg 9-14 tablet by ity of tablet 00:00: mouth in [place] [address] the Medical morning Branch and 1 tablet in the evening. SERTraline 2022-0 Yes [id number] 100mg Take 1 [facility] 100 mg 9-14 tablet by ity of tablet 00:00: mouth in [place] [address] the Medical morning Branch and 1 tablet in the evening. SERTraline 2-0 Yes [id number] 100mg Take 1 [facility] 100 mg 9-14 tablet by ity of tablet 00:00: mouth in [place] [address] the Medical morning Branch and 1 tablet in the evening. SERTraline 2-0 Yes [id number] 100mg Take 1 [facility] 100 mg 9-14 tablet by ity of tablet 00:00: mouth in [place] [address] the Medical morning [place] and 1 tablet in the evening. SERTraline 2022-0 Yes [id number] 100mg Take 1 [facility] 100 mg 9-14 tablet by ity of tablet 00:00: mouth in [place] [address] the Medical morning [place] and 1 tablet in the evening. SERTraline 2022-0 Yes [id number] 100mg Take 1 [facility] 100 mg 9-14 tablet by ity of tablet 00:00: mouth in [place] [address] the Medical morning [place] and 1 tablet in the evening. SERTraline 2022-0 Yes [id number] 100mg Take 1 [facility] 100 mg 9-14 tablet by ity of tablet 00:00: mouth in [place] [address] the Medical morning [place] and 1 tablet in the evening. SERTraline 2022-0 Yes [id number] 100mg Take 1 [facility] 100 mg 9-14 tablet by ity of tablet 00:00: mouth in [address] Medical morning [place] and 1 tablet in the evening. SERTraline 2022-0 Yes [id number] 100mg Take 1 [facility] 100 mg 9-14 tablet by ity of tablet 00:00: mouth in [address] Medical morning [place] and 1 tablet in the evening. SERTraline 2022-0 Yes [id number] 100mg Take 1 [facility] 100 mg 9-14 tablet by ity of tablet 00:00: mouth in [place] [address] the [facility] morning [place] and 1 tablet in the evening. SERTraline 2022-0 Yes [id number] 100mg Take 1 [facility] 100 mg 9-14 tablet by ity of tablet 00:00: mouth in [place] [address] the Medical morning [place] and 1 tablet in the evening. SERTraline 2022-0 Yes [id number] 100mg Take 1 [facility] 100 mg 9-14 tablet by ity of tablet 00:00: mouth in [place] [address] the Medical morning [place] and 1 tablet in the evening. SERTraline 2022-0 Yes [id number] 100mg Take 1 [facility] 100 mg 9-14 tablet by ity of tablet 00:00: mouth in [address] morning [place] and 1 tablet in the evening. SERTraline 2-0 Yes [id number] 100mg Take 1 [facility] 100 mg 9-14 tablet by ity of tablet 00:00: mouth in [address] morning [place] and 1 tablet in the evening. SERTraline 2-0 Yes [id number] 100mg Take 1 [facility] 100 mg 9-14 tablet by ity of tablet 00:00: mouth in [address] morning [place] and 1 tablet in the evening. SERTraline 2022-0 Yes [id number] 100mg Take 1 [facility] 100 mg 9-14 tablet by ity of tablet 00:00: mouth in [address] morning [place] and 1 tablet in the evening. SERTraline 2022-0 Yes [id number] 100mg Take 1 [facility] 100 mg 9-14 tablet by ity of tablet 00:00: mouth in [address] morning [place] and 1 tablet in the evening. SERTraline 2022-0 Yes [id number] 100mg Take 1 [facility] 100 mg 9-14 tablet by ity of tablet 00:00: mouth in [address] morning [place] and 1 tablet in the evening. SERTraline 2022-0 Yes [id number] 100mg Take 1 [facility] 100 mg 9-14 tablet by ity of tablet 00:00: mouth in [address] morning [place] and 1 tablet in the evening. SERTraline 2022-0 Yes [id number] 100mg Take 1 [facility] 100 mg 9-14 tablet by ity of tablet 00:00: mouth in [place] [address] the Medical morning Branch and 1 tablet in the evening. SERTraline 2022-0 Yes [id number] 100mg Take 1 [facility] 100 mg 9-14 tablet by ity of tablet 00:00: mouth in [place] [address] the Medical morning Branch and 1 tablet in the evening. SERTraline 2022-0 Yes [id number] 100mg Take 1 [facility] 100 mg 9-14 tablet by ity of tablet 00:00: mouth in [place] [address] the Medical morning Branch and 1 tablet in the evening. SERTraline 2022-0 Yes [id number] 100mg Take 1 [facility] 100 mg 9-14 tablet by ity of tablet 00:00: mouth in [place] [address] the Medical morning Branch and 1 tablet in the evening. SERTraline 2022-0 Yes [id number] 100mg Take 1 [facility] 100 mg 9-14 tablet by ity of tablet 00:00: mouth in [place] [address] the Medical morning [place] and 1 tablet in the evening. SERTraline 2022-0 Yes [id number] 100mg Take 1 [facility] 100 mg 9-14 tablet by ity of tablet 00:00: mouth in [place] [address] the Medical morning [place] and 1 tablet in the evening. SERTraline 2022-0 Yes [id number] 100mg Take 1 [facility] 100 mg 9-14 tablet by ity of tablet 00:00: mouth in [place] [address] the Medical morning [place] and 1 tablet in the evening. SERTraline 2022-0 Yes [id number] 100mg Take 1 [facility] 100 mg 9-14 tablet by ity of tablet 00:00: mouth in [place] [address] the Medical morning Branch and 1 tablet in the evening. SERTraline 2022-0 Yes [id number] 100mg Take 1 [facility] 100 mg 9-14 tablet by ity of tablet 00:00: mouth in [place] [address] the Medical morning [place] and 1 tablet in the evening. SERTraline 2022-0 Yes [id number] 100mg Take 1 [facility] 100 mg 9-14 tablet by ity of tablet 00:00: mouth in [address] morning [place] and 1 tablet in the evening. SERTraline 2022-0 Yes [id number] 100mg Take 1 [facility] 100 mg 9-14 tablet by ity of tablet 00:00: mouth in [address] morning Branch and 1 tablet in the evening. SERTraline 2022-0 Yes [id number] 100mg Take 1 [facility] 100 mg 9-14 tablet by ity of tablet 00:00: mouth in [place] [address] the Medical morning Branch and 1 tablet in the evening. SERTraline 2022-0 Yes [id number] 100mg Take 1 [facility] 100 mg 9-14 tablet by ity of tablet 00:00: mouth in [place] [address] the [facility] morning Branch and 1 tablet in the evening. SERTraline 2022-0 Yes [id number] 100mg Take 1 [facility] 100 mg 9-14 tablet by ity of tablet 00:00: mouth in [place] [address] the Medical morning Branch and 1 tablet in the evening. SERTraline 2022-0 Yes [id number] 100mg Take 1 [facility] 100 mg 9-14 tablet by ity of tablet 00:00: mouth in [place] [address] the [facility] morning [place] and 1 tablet in the evening. SERTraline 2022-0 Yes [id number] 100mg Take 1 [facility] 100 mg 9-14 tablet by ity of tablet 00:00: mouth in [place] [address] the [facility] morning [place] and 1 tablet in the evening. SERTraline 2022-0 Yes [id number] 100mg Take 1 [facility] 100 mg 9-14 tablet by ity of tablet 00:00: mouth in [place] [address] the [facility] morning [place] and 1 tablet in the evening. SERTraline 2022-0 Yes [id number] 100mg Take 1 [facility] 100 mg 9-14 tablet by ity of tablet 00:00: mouth in [place] [address] the [facility] morning [place] and 1 tablet in the evening. SERTraline 2022-0 Yes [id number] 100mg Take 1 [facility] 100 mg 9-14 tablet by ity of tablet 00:00: mouth in [place] [address] the [facility] morning [place] and 1 tablet in the evening. SERTraline 2022-0 Yes [id number] 100mg Take 1 [facility] 100 mg 9-14 tablet by [facility] of tablet 00:00: mouth in [place] [address] the [facility] morning [place] and 1 tablet in the evening. SERTraline 2022-0 Yes [id number] 100mg Take 1 [facility] 100 mg 9-14 tablet by it[facility] of tablet 00:00: mouth in [address] morning [place] and 1 tablet in the evening. SERTraline 2022-0 Yes [id number] 100mg Take 1 [facility] 100 mg 9-14 tablet by ity of tablet 00:00: mouth in [place] [address] the Medical morning Branch and 1 tablet in the evening. SERTraline 2022-0 Yes [id number] 100mg Take 1 [facility] 100 mg 9-14 tablet by it[facility] of tablet 00:00: mouth in [place] [address] the Medical morning Branch and 1 tablet in the evening. SERTraline 2022-0 Yes [id number] 100mg Take 1 [facility] 100 mg 9-14 tablet by ity of tablet 00:00: mouth in [place] [address] the Medical morning Branch and 1 tablet in the evening. SERTraline 2022-0 Yes [id number] 100mg Take 1 [facility] 100 mg 9-14 tablet by ity of tablet 00:00: mouth in [place] [address] the Medical morning Branch and 1 tablet in the evening. SERTraline 2022-0 Yes [id number] 100mg Take 1 [facility] 100 mg 9-14 tablet by ity of tablet 00:00: mouth in [place] [address] the Medical morning Branch and 1 tablet in the evening. SERTraline 2022-0 Yes [id number] 100mg Take 1 [facility] 100 mg 9-14 tablet by it[facility] of tablet 00:00: mouth in [place] [address] the Medical morning Branch and 1 tablet in the evening. SERTraline 2022-0 Yes [id number] 100mg Take 1 [facility] 100 mg 9-14 tablet by ity of tablet 00:00: mouth in [place] [address] the Medical morning [place] and 1 tablet in the evening. SERTraline 2022-0 Yes [id number] 100mg Take 1 [facility] 100 mg 9-14 tablet by ity of tablet 00:00: mouth in [place] [address] the Medical morning [place] and 1 tablet in the evening. SERTraline 2022-0 Yes [id number] 100mg Take 1 [facility] 100 mg 9-14 tablet by it[facility] of tablet 00:00: mouth in [place] [address] the Medical morning Branch and 1 tablet in the evening. SERTraline 2022-0 Yes [id number] 100mg Take 1 [facility] 100 mg 9-14 tablet by ity of tablet 00:00: mouth in [place] [address] the Medical morning [place] and 1 tablet in the evening. SERTraline 2022-0 Yes [id number] 100mg Take 1 [facility] 100 mg 9-14 tablet by ity of tablet 00:00: mouth in [address] Medical morning [place] and 1 tablet in the evening. SERTraline 2022-0 Yes [id number] 100mg Take 1 [facility] 100 mg 9-14 tablet by ity of tablet 00:00: mouth in [place] [address] the Medical morning Branch and 1 tablet in the evening. SERTraline 2022-0 Yes [id number] 100mg Take 1 [facility] 100 mg 9-14 tablet by it[facility] of tablet 00:00: mouth in [place] [address] the Medical morning Branch and 1 tablet in the evening. SERTraline 2022-0 Yes [id number] 100mg Take 1 [facility] 100 mg 9-14 tablet by [facility] of tablet 00:00: mouth in [place] [address] the Medical morning Branch and 1 tablet in the evening. SERTraline 2022-0 Yes [id number] 100mg Take 1 [facility] 100 mg 9-14 tablet by ity of tablet 00:00: mouth in [place] [address] the Medical morning Branch and 1 tablet in the evening. SERTraline 2022-0 Yes [id number] 100mg Take 1 [facility] 100 mg 9-14 tablet by ity of tablet 00:00: mouth in [place] [address] the Medical morning Branch and 1 tablet in the evening. SERTraline 2022-0 Yes [id number] 100mg Take 1 [facility] 100 mg 9-14 tablet by ity of tablet 00:00: mouth in [place] [address] the Medical morning Branch and 1 tablet in the evening. SERTraline 2022-0 Yes [id number] 100mg Take 1 [facility] 100 mg 9-14 tablet by ity of tablet 00:00: mouth in [place] [address] the Medical morning Branch and 1 tablet in the evening. SERTraline 2022-0 Yes [id number] 100mg Take 1 [facility] 100 mg 9-14 tablet by ity of tablet 00:00: mouth in [place] [address] the Medical morning Branch and 1 tablet in the evening. SERTraline 2022-0 Yes [id number] 100mg Take 1 [facility] 100 mg 9-14 tablet by it[facility] of tablet 00:00: mouth in [place] [address] the Medical morning Branch and 1 tablet in the evening. SERTraline 2022-0 Yes [id number] 100mg Take 1 [facility] 100 mg 9-14 tablet by ity of tablet 00:00: mouth in [place] [address] the Medical morning Branch and 1 tablet in the evening. SERTraline 2022-0 Yes [id number] 100mg Take 1 [facility] 100 mg 9-14 tablet by ity of tablet 00:00: mouth in [place] 00 the Medical morning Branch and 1 tablet in the evening. SERTraline 2022-0 Yes [id number] 100mg Take 1 [facility] 100 mg 9-14 tablet by ity of tablet 00:00: mouth in [place] 00 the Medical morning Branch and 1 tablet in the evening. SERTraline 2022-0 Yes [id number] 100mg Take 1 [facility] 100 mg 9-14 tablet by ity of tablet 00:00: mouth in [place] 00 the Medical morning Branch and 1 tablet in the evening. SERTraline 2-0 Yes [id number] 100mg Take 1 [facility] 100 mg 9-14 tablet by ity of tablet 00:00: mouth in [place] 00 the Medical morning Branch and 1 tablet in the evening. SERTraline 2-0 2023- No [id number] 100mg Take 1 [facility] 100 mg 9-14 09-20 tablet by ity of tablet 00:00: 00:00 mouth in [place] 00 :00 the Medical morning Branch and 1 tablet in the evening. primidone 2-0 Yes [id number] 100mg Take 2 [facility] 50 mg 8-15 tablets by ity of tablet 00:00: mouth [place] 00 every 8 Medical (eight) Branch hours. primidone 2-0 Yes [id number] 100mg Take 2 [facility] 50 mg 8-15 tablets by ity of tablet 00:00: mouth [place] 00 every 8 Medical (eight) Branch hours. primidone 2022-0 Yes [id number] 100mg Take 2 [facility] 50 mg 8-15 tablets by ity of tablet 00:00: mouth [place] 00 every 8 Medical (eight) Branch hours. primidone 2022-0 Yes [id number] 100mg Take 2 [facility] 50 mg 8-15 tablets by it[facility] of tablet 00:00: mouth [place] 00 every 8 Medical (eight) Branch hours. primidone 2022-0 Yes [id number] 100mg Take 2 [facility] 50 mg 8-15 tablets by ity of tablet 00:00: mouth [place] 00 every 8 Medical (eight) Branch hours. primidone 2022-0 Yes [id number] 100mg Take 2 [facility] 50 mg 8-15 tablets by it[facility] of tablet 00:00: mouth [place] 00 every 8 Medical (eight) Branch hours. primidone 2022-0 Yes [id number] 100mg Take 2 [facility] 50 mg 8-15 tablets by ity of tablet 00:00: mouth [place] 00 every 8 Medical (eight) Branch hours. primidone 2022-0 Yes [id number] 100mg Take 2 [facility] 50 mg 8-15 tablets by ity of tablet 00:00: mouth [place] 00 every 8 Medical (eight) Branch hours. primidone 2022-0 Yes [id number] 100mg Take 2 [facility] 50 mg 8-15 tablets by ity of tablet 00:00: mouth [place] 00 every 8 Medical (eight) Branch hours. primidone 2022-0 Yes [id number] 100mg Take 2 [facility] 50 mg 8-15 tablets by it[facility] of tablet 00:00: mouth [place] 00 every 8 Medical (eight) Branch hours. primidone 2022-0 Yes [id number] 100mg Take 2 [facility] 50 mg 8-15 tablets by ity of tablet 00:00: mouth [place] 00 every 8 Medical (eight) Branch hours. primidone 2022-0 Yes [id number] 100mg Take 2 [facility] 50 mg 8-15 tablets by ity of tablet 00:00: mouth [place] 00 every 8 Medical (eight) Branch hours. primidone 2022-0 Yes [id number] 100mg Take 2 [facility] 50 mg 8-15 tablets by ity of tablet 00:00: mouth [place] 00 every 8 Medical (eight) Branch hours. primidone 2022-0 Yes [id number] 100mg Take 2 [facility] 50 mg 8-15 tablets by ity of tablet 00:00: mouth [place] 00 every 8 Medical (eight) Branch hours. primidone 2022-0 Yes [id number] 100mg Take 2 [facility] 50 mg 8-15 tablets by ity of tablet 00:00: mouth [place] 00 every 8 Medical (eight) Branch hours. primidone 2022-0 Yes [id number] 100mg Take 2 [facility] 50 mg 8-15 tablets by ity of tablet 00:00: mouth [place] 00 every 8 Medical (eight) Branch hours. primidone 2022-0 Yes [id number] 100mg Take 2 [facility] 50 mg 8-15 tablets by ity of tablet 00:00: mouth [place] 00 every 8 Medical (eight) Branch hours. primidone 2022-0 Yes [id number] 100mg Take 2 [facility] 50 mg 8-15 tablets by ity of tablet 00:00: mouth [place] 00 every 8 Medical (eight) Branch hours. primidone 2022-0 Yes [id number] 100mg Take 2 [facility] 50 mg 8-15 tablets by ity of tablet 00:00: mouth [place] 00 every 8 Medical (eight) Branch hours. primidone 2022-0 Yes [id number] 100mg Take 2 [facility] 50 mg 8-15 tablets by ity of tablet 00:00: mouth [place] 00 every 8 Medical (eight) Branch hours. primidone 2022-0 Yes [id number] 100mg Take 2 [facility] 50 mg 8-15 tablets by ity of tablet 00:00: mouth [place] 00 every 8 Medical (eight) Branch hours. primidone 2022-0 Yes [id number] 100mg Take 2 [facility] 50 mg 8-15 tablets by ity of tablet 00:00: mouth [place] 00 every 8 Medical (eight) Branch hours. primidone 2022-0 Yes [id number] 100mg Take 2 [facility] 50 mg 8-15 tablets by ity of tablet 00:00: mouth [place] 00 every 8 Medical (eight) Branch hours. primidone 2022-0 Yes [id number] 100mg Take 2 [facility] 50 mg 8-15 tablets by ity of tablet 00:00: mouth [place] 00 every 8 Medical (eight) Branch hours. primidone 2022-0 Yes [id number] 100mg Take 2 [facility] 50 mg 8-15 tablets by ity of tablet 00:00: mouth [place] 00 every 8 Medical (eight) Branch hours. primidone 2022-0 Yes [id number] 100mg Take 2 [facility] 50 mg 8-15 tablets by ity of tablet 00:00: mouth [place] 00 every 8 Medical (eight) Branch hours. primidone 2022-0 Yes [id number] 100mg Take 2 [facility] 50 mg 8-15 tablets by ity of tablet 00:00: mouth [place] 00 every 8 Medical (eight) Branch hours. primidone 2022-0 Yes [id number] 100mg Take 2 [facility] 50 mg 8-15 tablets by ity of tablet 00:00: mouth [place] 00 every 8 Medical (eight) Branch hours. primidone 2022-0 Yes [id number] 100mg Take 2 [facility] 50 mg 8-15 tablets by ity of tablet 00:00: mouth [place] 00 every 8 Medical (eight) Branch hours. primidone 2022-0 Yes [id number] 100mg Take 2 [facility] 50 mg 8-15 tablets by ity of tablet 00:00: mouth [place] 00 every 8 Medical (eight) Branch hours. primidone 2022-0 Yes [id number] 100mg Take 2 [facility] 50 mg 8-15 tablets by ity of tablet 00:00: mouth [place] 00 every 8 Medical (eight) Branch hours. primidone 2022-0 Yes [id number] 100mg Take 2 [facility] 50 mg 8-15 tablets by ity of tablet 00:00: mouth [place] 00 every 8 Medical (eight) Branch hours. primidone 2022-0 Yes [id number] 100mg Take 2 [facility] 50 mg 8-15 tablets by ity of tablet 00:00: mouth [place] 00 every 8 Medical (eight) Branch hours. primidone 2022-0 Yes [id number] 100mg Take 2 [facility] 50 mg 8-15 tablets by ity of tablet 00:00: mouth [place] 00 every 8 Medical (eight) Branch hours. primidone 2022-0 Yes [id number] 100mg Take 2 [facility] 50 mg 8-15 tablets by ity of tablet 00:00: mouth [place] 00 every 8 Medical (eight) Branch hours. primidone 2022-0 Yes [id number] 100mg Take 2 [facility] 50 mg 8-15 tablets by ity of tablet 00:00: mouth [place] 00 every 8 Medical (eight) Branch hours. primidone 2022-0 Yes [id number] 100mg Take 2 [facility] 50 mg 8-15 tablets by ity of tablet 00:00: mouth [place] 00 every 8 Medical (eight) Branch hours. primidone 2022-0 Yes [id number] 100mg Take 2 [facility] 50 mg 8-15 tablets by ity of tablet 00:00: mouth [place] 00 every 8 Medical (eight) Branch hours. primidone 2022-0 Yes [id number] 100mg Take 2 [facility] 50 mg 8-15 tablets by ity of tablet 00:00: mouth [place] 00 every 8 Medical (eight) Branch hours. primidone 2022-0 Yes [id number] 100mg Take 2 [facility] 50 mg 8-15 tablets by ity of tablet 00:00: mouth [place] 00 every 8 Medical (eight) Branch hours. primidone 2022-0 Yes [id number] 100mg Take 2 [facility] 50 mg 8-15 tablets by ity of tablet 00:00: mouth [place] 00 every 8 Medical (eight) Branch hours. primidone 2022-0 Yes [id number] 100mg Take 2 [facility] 50 mg 8-15 tablets by ity of tablet 00:00: mouth [place] 00 every 8 Medical (eight) Branch hours. primidone 2-0 Yes [id number] 100mg Take 2 [facility] 50 mg 8-15 tablets by ity of tablet 00:00: mouth [place] 00 every 8 Medical (eight) Branch hours. primidone 2-0 Yes [id number] 100mg Take 2 [facility] 50 mg 8-15 tablets by ity of tablet 00:00: mouth [place] 00 every 8 Medical (eight) Branch hours. primidone 2021-0 Yes [id number] 100mg Take 2 [facility] 50 mg 8-15 tablets by ity of tablet 00:00: mouth [place] 00 every 8 Medical (eight) Branch hours. primidone 2021-0 2022- No [id number] 100mg Take 2 [facility] 50 mg 8-15 12-14 tablets by ity of tablet 00:00: 00:00 mouth [place] 00 :00 every 8 Medical (eight) Branch hours. primidone 2021-0 2022- No [id number] 100mg Take 2 [facility] 50 mg 8-15 12-14 tablets by ity of tablet 00:00: 00:00 mouth [place] 00 :00 every 8 Medical (eight) Branch hours. primidone 2021-0 2022- No [id number] 100mg Take 2 [facility] 50 mg 8-15 [...] mouth [place] 47 daily. Medical Branch spironolact 2022-0 Yes 25mg Take 25 mg [facility] one 25 mg 8-11 by mouth ity of tablet 10:37: daily. [address] Branch mexiletine 2022-0 Yes 200mg Take 1 [facility] ers 200 mg 7-19 capsule by ity of capsule 00:00: mouth in [place] [address] the [facility] morning [place] and 1 capsule at noon and 1 capsule in the evening. mexiletine 2022-0 Yes 200mg Take 1 [facility] ers 200 mg 7-19 capsule by ity of capsule 00:00: mouth in [place] [address] the [facility] morning [place] and 1 capsule at noon and 1 capsule in the evening. mexiletine 2022-0 Yes 200mg Take 1 [facility] ers 200 mg 7-19 capsule by ity of capsule 00:00: mouth in [place] [address] the [facility] morning [place] and 1 capsule at noon and 1 capsule in the evening. mexiletine 2022-0 Yes 200mg Take 1 [facility] ers 200 mg 7-19 capsule by ity of capsule 00:00: mouth in [place] [address] the [facility] morning [place] and 1 capsule at noon and 1 capsule in the evening. mexiletine 2022-0 Yes 200mg Take 1 [facility] ers 200 mg 7-19 capsule by ity of capsule 00:00: mouth in [place] [address] the [facility] morning [place] and 1 capsule at noon and 1 capsule in the evening. mexiletine 2022-0 Yes 200mg Take 1 [facility] ers 200 mg 7-19 capsule by ity of capsule 00:00: mouth in [place] [address] the [facility] morning [place] and 1 capsule at noon and 1 capsule in the evening. mexiletine 2022-0 Yes 200mg Take 1 [facility] ers 200 mg 7-19 capsule by ity of capsule 00:00: mouth in [place] [address] the [facility] morning [place] and 1 capsule at noon and 1 capsule in the evening. mexiletine 2022-0 Yes 200mg Take 1 [facility] ers 200 mg 7-19 capsule by ity of capsule 00:00: mouth in [address] morning [place] and 1 capsule at noon and 1 capsule in the evening. mexiletine 2022-0 Yes 200mg Take 1 [facility] ers 200 mg 7-19 capsule by ity of capsule 00:00: mouth in [address] morning [place] and 1 capsule at noon and 1 capsule in the evening. mexiletine 2022-0 Yes 200mg Take 1 [facility] ers 200 mg 7-19 capsule by ity of capsule 00:00: mouth in [place] 00 the Medical morning Branch and 1 capsule at noon and 1 capsule in the evening. mexiletine 2022-0 Yes 200mg Take 1 [facility] ers 200 mg 7-19 capsule by ity of capsule 00:00: mouth in [place] 00 the Medical morning Branch and 1 capsule at noon and 1 capsule in the evening. mexiletine 2022-0 Yes 200mg Take 1 [facility] ers 200 mg 7-19 capsule by ity of capsule 00:00: mouth in [place] 00 the Medical morning Branch and 1 capsule at noon and 1 capsule in the evening. mexiletine 2022-0 Yes 200mg Take 1 [facility] ers 200 mg 7-19 capsule by ity of capsule 00:00: mouth in [place] 00 the Medical morning Branch and 1 capsule at noon and 1 capsule in the evening. mexiletine 2022-0 Yes 200mg Take 1 [facility] ers 200 mg 7-19 capsule by ity of capsule 00:00: mouth in [place] 00 the Medical morning Branch and 1 capsule at noon and 1 capsule in the evening. mexiletine 2022-0 Yes 200mg Take 1 [facility] ers 200 mg 7-19 capsule by ity of capsule 00:00: mouth in [place] 00 the Medical morning Branch and 1 capsule at noon and 1 capsule in the evening. mexiletine 2022-0 2022- No 200mg Take 1 [facility] vers 200 mg 7-19 10-27 capsule by ity of capsule 00:00: 00:00 mouth in [place] 00 :00 the Medical morning Branch and 1 capsule at noon and 1 capsule in the evening. carvediloL 2022-0 Yes [id number] 6.25mg Take 1 [facility] 6.25 mg 6-20 tablet by ity of tablet 00:00: mouth 2 [place] (two) Medical times [place] daily with meals. warfarin 2022-0 Yes [id number] 7.5mg Take 1 [facility] n[facility] 7.5 mg 6-20 tablet by ity of tablet 00:00: mouth [place] 00 every Medical evening. Branch carvediloL 2022-0 Yes [id number] 6.25mg Take 1 [facility] 6.25 mg 6-20 tablet by ity of tablet 00:00: mouth 2 [place] (two) Medical times [place] daily with meals. warfarin 2022-0 Yes [id number] 7.5mg Take 1 [facility] nivers 7.5 mg 6-20 tablet by ity of tablet 00:00: mouth [place] 00 every Medical evening. Branch carvediloL 2021-0 Yes [id number] 6.25mg Take 1 [facility] 6.25 mg 6-20 tablet by ity of tablet 00:00: mouth 2 [place] 00 (two) Medical times Branch daily with meals. warfarin 2021-0 Yes [id number] 7.5mg Take 1 [facility] nivers 7.5 mg 6-20 tablet by ity of tablet 00:00: mouth [place] 00 every Medical evening. Branch carvediloL 2021-0 Yes [id number] 6.25mg Take 1 [facility] 6.25 mg 6-20 tablet by ity of tablet 00:00: mouth 2 (two) Medical times Branch daily with meals. warfarin 2021-0 Yes [id number] 7.5mg Take 1 U nivers 7.5 mg 6-20 tablet by ity of tablet 00:00: mouth [place] 00 every Medical evening. Branch carvediloL 2021-0 Yes [id number] 6.25mg Take 1 [facility] 6.25 mg 6-20 tablet by ity of tablet 00:00: mouth 2 (two) Medical times Branch daily with meals. warfarin 2021-0 Yes [id number] 7.5mg Take 1 U nivers 7.5 mg 6-20 tablet by ity of tablet 00:00: mouth [place] 00 every Medical evening. Branch carvediloL 2021-0 Yes [id number] 6.25mg Take 1 [facility] 6.25 mg 6-20 tablet by ity of tablet 00:00: mouth 2 (two) Medical times Branch daily with meals. warfarin 2021-0 Yes [id number] 7.5mg Take 1 U nivers 7.5 mg 6-20 tablet by ity of tablet 00:00: mouth [place] 00 every Medical evening. Branch carvediloL 2021-0 Yes [id number] 6.25mg Take 1 [facility] 6.25 mg 6-20 tablet by ity of tablet 00:00: mouth 2 [place] 00 (two) Medical times Branch daily with meals. warfarin 2021-0 Yes [id number] 7.5mg Take 1 U nivers 7.5 mg 6-20 tablet by ity of tablet 00:00: mouth [place] 00 every Medical evening. Branch carvediloL 2021-0 Yes [id number] 6.25mg Take 1 [facility] 6.25 mg 6-20 tablet by ity of tablet 00:00: mouth (two) Medical times Branch daily with meals. warfarin 2021-0 Yes [id number] 7.5mg Take 1 U nivers 7.5 mg 6-20 tablet by ity of tablet 00:00: mouth 00 every Medical evening. Branch carvediloL 2021-0 Yes [id number] 6.25mg Take 1 [facility] 6.25 mg 6-20 tablet by ity of tablet 00:00: mouth (two) Medical times Branch daily with meals. warfarin 2021-0 Yes [id number] 7.5mg Take 1 U nivers 7.5 mg 6-20 tablet by ity of tablet 00:00: mouth every Medical evening. Branch carvediloL 2021-0 Yes [id number] 6.25mg Take 1 [facility] 6.25 mg 6-20 tablet by ity of tablet 00:00: mouth (two) Medical times Branch daily with meals. warfarin 2021-0 Yes [id number] 7.5mg Take 1 U nivers 7.5 mg 6-20 tablet by ity of tablet 00:00: mouth every Medical evening. Branch carvediloL 2021-0 Yes [id number] 6.25mg Take 1 [facility] 6.25 mg 6-20 tablet by ity of tablet 00:00: mouth (two) Medical times Branch daily with meals. carvediloL 2021-0 Yes [id number] 6.25mg Take 1 [facility] 6.25 mg 6-20 tablet by ity of tablet 00:00: mouth (two) Medical times Branch daily with meals. carvediloL 2021-0 Yes [id number] 6.25mg Take 1 [facility] 6.25 mg 6-20 tablet by ity of tablet 00:00: mouth (two) Medical times Branch daily with meals. carvediloL 2021-0 Yes [id number] 6.25mg Take 1 [facility] 6.25 mg 6-20 tablet by ity of tablet 00:00: mouth (two) Medical times Branch daily with meals. carvediloL 2022-0 Yes [id number] 6.25mg Take 1 [facility] 6.25 mg 6-20 tablet by ity of tablet 00:00: mouth (two) Medical times Branch daily with meals. carvediloL 2022-0 Yes [id number] 6.25mg Take 1 [facility] 6.25 mg 6-20 tablet by ity of tablet 00:00: mouth (two) Medical times Branch daily with meals. carvediloL 2022-0 Yes [id number] 6.25mg Take 1 [facility] 6.25 mg 6-20 tablet by ity of tablet 00:00: mouth (two) Medical times Branch daily with meals. carvediloL 2022-0 Yes [id number] 6.25mg Take 1 [facility] 6.25 mg 6-20 tablet by ity of tablet 00:00: mouth (two) Medical times Branch daily with meals. carvediloL 2-0 Yes [id number] 6.25mg Take 1 [facility] 6.25 mg 6-20 tablet by ity of tablet 00:00: mouth (two) Medical times Branch daily with meals. carvediloL 2-0 Yes [id number] 6.25mg Take 1 [facility] 6.25 mg 6-20 tablet by ity of tablet 00:00: mouth (two) Medical times Branch daily with meals. carvediloL 2-0 Yes [id number] 6.25mg Take 1 [facility] 6.25 mg 6-20 tablet by ity of tablet 00:00: mouth (two) Medical times Branch daily with meals. carvediloL 2022-0 Yes [id number] 6.25mg Take 1 [facility] 6.25 mg 6-20 tablet by ity of tablet 00:00: mouth (two) Medical times Branch daily with meals. carvediloL 2022-0 Yes [id number] 6.25mg Take 1 [facility] 6.25 mg 6-20 tablet by ity of tablet 00:00: mouth (two) Medical times Branch daily with meals. carvediloL 2022-0 Yes [id number] 6.25mg Take 1 [facility] 6.25 mg 6-20 tablet by ity of tablet 00:00: mouth (two) Medical times Branch daily with meals. carvediloL 2022-0 Yes [id number] 6.25mg Take 1 [facility] 6.25 mg 6-20 tablet by ity of tablet 00:00: mouth 2 [place] 00 (two) Medical times Branch daily with meals. carvediloL Yes [id number] 6.25mg Take 1 [facility] 6.25 mg 6-20 tablet by ity of tablet 00:00: mouth 2 [place] 00 (two) Medical times Branch daily with meals. carvediloL Yes [id number] 6.25mg Take 1 [facility] 6.25 mg 6-20 tablet by ity of tablet 00:00: mouth 2 [place] 00 (two) Medical times Branch daily with meals. carvediloL 2021- No [id number] 6.25mg Take 1 [facility] 6.25 mg 6-20 11-21 tablet by ity of tablet 00:00: 00:00 mouth 2 [place] 00 :00 (two) Medical times Branch daily with meals. carvediloL 2021- No [id number] 6.25mg Take 1 [facility] 6.25 mg 6-20 11-21 tablet by ity of tablet 00:00: 00:00 mouth 2 [place] 00 :00 (two) Medical times Branch daily with meals. warfarin 2021- No [id number] 7.5mg Take 1 [facility] 7.5 mg 6-20 10-14 tablet by ity of tablet 00:00: 00:00 mouth [place] 00 :00 every Medical evening. Branch warfarin 2021- No [id number] 7.5mg Take 1 [facility] 7.5 mg 6-20 10-14 tablet by ity of tablet 00:00: 00:00 mouth [place] 00 :00 every Medical evening. Branch atorvastati Yes [id number] 40mg Take 1 [facility] n 40 mg 5-05 tablet by ity of tablet 00:00: mouth at [place] [address] bedtime. Medical Branch atorvastati Yes [id number] 40mg Take 1 [facility] n 40 mg 5-05 tablet by ity of tablet 00:00: mouth at [place] [address] bedtime. Medical Branch atorvastati Yes [id number] 40mg Take 1 [facility] n 40 mg 5-05 tablet by ity of tablet 00:00: mouth at [place] [address] bedtime. Medical Branch atorvastati 2022-0 Yes [id number] 40mg Take 1 [facility] n 40 mg 5-05 tablet by ity of tablet 00:00: mouth at [place] [address] bedtime. Medical Branch atorvastati 0 Yes [id number] 40mg Take 1 [facility] n 40 mg 5-05 tablet by ity of tablet 00:00: mouth at [place] [address] bedtime. Medical Branch atorvastati 0 Yes [id number] 40mg Take 1 [facility] n 40 mg 5-05 tablet by ity of tablet 00:00: mouth at [place] [address] bedtime. Medical Branch atorvastati 0 Yes [id number] 40mg Take 1 [facility] n 40 mg 5-05 tablet by ity of tablet 00:00: mouth at [place] [address] bedtime. Medical Branch atorvastati 0 Yes [id number] 40mg Take 1 [facility] n 40 mg 5-05 tablet by ity of tablet 00:00: mouth at [place] [address] bedtime. Medical Branch atorvastati 0 Yes [id number] 40mg Take 1 [facility] n 40 mg 5-05 tablet by ity of tablet 00:00: mouth at [place] [address] bedtime. Medical Branch atorvasta 0 Yes [id number] 40mg Take 1 [facility] n 40 mg 5-05 tablet by ity of tablet 00:00: mouth at [place] [address] bedtime. Medical Branch atorvastati 0 Yes [id number] 40mg Take 1 [facility] n 40 mg 5-05 tablet by ity of tablet 00:00: mouth at [place] [address] bedtime. Medical Branch atorvastati 0 Yes [id number] 40mg Take 1 [facility] n 40 mg 5-05 tablet by ity of tablet 00:00: mouth at [place] [address] bedtime. Medical Branch atorvastati 0 Yes [id number] 40mg Take 1 [facility] n 40 mg 5-05 tablet by ity of tablet 00:00: mouth at [place] [address] bedtime. Medical Branch atorvastati 0 Yes [id number] 40mg Take 1 [facility] n 40 mg 5-05 tablet by ity of tablet 00:00: mouth at [place] [address] bedtime. Medical Branch atorvastati 0 Yes [id number] 40mg Take 1 [facility] n 40 mg 5-05 tablet by ity of tablet 00:00: mouth at [place] [address] bedtime. Medical Branch atorvastati 0 Yes [id number] 40mg Take 1 [facility] n 40 mg 5-05 tablet by ity of tablet 00:00: mouth at [place] [address] bedtime. Medical Branch atorvastati 0 Yes [id number] 40mg Take 1 [facility] n 40 mg 5-05 tablet by ity of tablet 00:00: mouth at [place] [address] bedtime. Medical Branch atorvastati 0 Yes [id number] 40mg Take 1 [facility] 40 mg 5-05 tablet by [facility] tablet 00:00: mouth at [place] [address] bedtime. [facility] atorvastati 0 Yes [id number] 40mg Take 1 [facility] 40 mg 5-05 tablet by [facility] tablet 00:00: mouth at [place] [address] bedtime. [facility] atorvastati 0 Yes [id number] 40mg Take 1 [facility] 40 mg 5-05 tablet by [facility] of tablet 00:00: mouth at [place] [address] bedtime. [facility] atorvastati 0 Yes [id number] 40mg Take 1 [facility] 40 mg 5-05 tablet by [facility] of tablet 00:00: mouth at [place] [address] bedtime. [facility] atorvastati 0 Yes [id number] 40mg Take 1 [facility] 40 mg 5-05 tablet by [facility] tablet 00:00: mouth at [place] [address] bedtime. [facility] atorvastati 0 Yes [id number] 40mg Take 1 [facility] 40 mg 5-05 tablet by [facility] of tablet 00:00: mouth at [place] [address] bedtime. [facility] atorvastati 0 Yes [id number] 40mg Take 1 [facility] 40 mg 5-05 tablet by [facility] of tablet 00:00: mouth at [place] [address] bedtime. [facility] atorvastati 0 Yes [id number] 40mg Take 1 [facility] 40 mg 5-05 tablet by [facility] of tablet 00:00: mouth at [place] [address] bedtime. [facility] atorvastati 0 Yes [id number] 40mg Take 1 [facility] 40 mg 5-05 tablet by [facility] of tablet 00:00: mouth at [place] [address] bedtime. [facility] atorvastati 0 Yes [id number] 40mg Take 1 [facility] 40 mg 5-05 tablet by [facility] of tablet 00:00: mouth at [place] [address] bedtime. [facility] atorvastati 0 Yes [id number] 40mg Take 1 [facility] 40 mg 5-05 tablet by [facility] of tablet 00:00: mouth at [place] bedtime. [facility] atorvastati 0 Yes [id number] 40mg Take 1 [facility] 40 mg 5-05 tablet by [facility] of tablet 00:00: mouth at [place] bedtime. [facility] atorvastati 0 Yes [id number] 40mg Take 1 [facility] 40 mg 5-05 tablet by [facility] of tablet 00:00: mouth at [place] bedtime. [facility] atorvastati 0 Yes [id number] 40mg Take 1 [facility] 40 mg 5-05 tablet by [facility] of tablet 00:00: mouth at [place] bedtime. [facility] atorvastati 0 Yes [id number] 40mg Take 1 [facility] 40 mg 5-05 tablet by [facility] of tablet 00:00: mouth at [place] bedtime. [facility] atorvastati 0 Yes [id number] 40mg Take 1 [facility] 40 mg 5-05 tablet by [facility] of tablet 00:00: mouth at [place] bedtime. [facility] atorvastati 0 Yes [id number] 40mg Take 1 [facility] 40 mg 5-05 tablet by [facility] of tablet 00:00: mouth at [place] bedtime. [facility] atorvastati 0 Yes [id number] 40mg Take 1 [facility] 40 mg 5-05 tablet by [facility] of tablet 00:00: mouth at [place] [address] bedtime. [facility] atorvastati 0 Yes [id number] 40mg Take 1 [facility] 40 mg 5-05 tablet by [facility] of tablet 00:00: mouth at [place] bedtime. [facility] atorvastati 0 Yes [id number] 40mg Take 1 [facility] 40 mg 5-05 tablet by [facility] of tablet 00:00: mouth at [place] [address] bedtime. [facility] atorvastati 0 Yes [id number] 40mg Take 1 [facility] 40 mg 5-05 tablet by [facility] of tablet 00:00: mouth at [place] 00 bedtime. [facility] atorvastati 0 Yes [id number] 40mg Take 1 [facility] 40 mg 5-05 tablet by [facility] of tablet 00:00: mouth at [place] bedtime. [facility] atorvastati 0 Yes [id number] 40mg Take 1 [facility] 40 mg 5-05 tablet by [facility] of tablet 00:00: mouth at [place] bedtime. [facility] atorvastati 0 Yes [id number] 40mg Take 1 [facility] 40 mg 5-05 tablet by [facility] of tablet 00:00: mouth at [place] bedtime. [facility] atorvastati 0 Yes [id number] 40mg Take 1 [facility] 40 mg 5-05 tablet by [facility] of tablet 00:00: mouth at [place] bedtime. [facility] atorvastati Yes [id number] 40mg Take 1 [facility] 40 mg 5-05 tablet by [facility] of tablet 00:00: mouth at [place] bedtime. [facility] atorvastati 0 Yes [id number] 40mg Take 1 [facility] 40 mg 5-05 tablet by [facility] of tablet 00:00: mouth at [place] bedtime. [facility] atorvastati Yes [id number] 40mg Take 1 [facility] 40 mg 5-05 tablet by [facility] tablet 00:00: mouth at [place] bedtime. [facility] atorvastati Yes [id number] 40mg Take 1 [facility] 40 mg 5-05 tablet by [facility] of tablet 00:00: mouth at [place] bedtime. [facility] atorvastati 0 Yes [id number] 40mg Take 1 [facility] 40 mg 5-05 tablet by [facility] of tablet 00:00: mouth at [place] bedtime. [facility] atorvastati 0 Yes [id number] 40mg Take 1 [facility] 40 mg 5-05 tablet by [facility] of tablet 00:00: mouth at [place] bedtime. [facility] atorvastati 0 Yes [id number] 40mg Take 1 [facility] 40 mg 5-05 tablet by [facility] of tablet 00:00: mouth at [place] [address] bedtime. [facility] atorvastati 0 Yes [id number] 40mg Take 1 [facility] 40 mg 5-05 tablet by [facility] of tablet 00:00: mouth at [place] [address] bedtime. [facility] atorvastati 0 Yes [id number] 40mg Take 1 [facility] 40 mg 5-05 tablet by [facility] of tablet 00:00: mouth at [place] bedtime. [facility] atorvastati 0 Yes [id number] 40mg Take 1 [facility] 40 mg 5-05 tablet by [facility] of tablet 00:00: mouth at [place] bedtime. [facility] atorvastati 0 Yes [id number] 40mg Take 1 [facility] 40 mg 5-05 tablet by [facility] of tablet 00:00: mouth at [place] bedtime. [facility] atorvastati 0 Yes [id number] 40mg Take 1 [facility] n 40 mg 5-05 tablet by [facility] of tablet 00:00: mouth at [place] bedtime. [facility] atorvastati Yes [id number] 40mg Take 1 [facility] n 40 mg 5-05 tablet by [facility] of tablet 00:00: mouth at [place] bedtime. [facility] atorvastati 0 Yes [id number] 40mg Take 1 [facility] n 40 mg 5-05 tablet by [facility] of tablet 00:00: mouth at [place] bedtime. [facility] atorvastati 0 Yes [id number] 40mg Take 1 [facility] 40 mg 5-05 tablet by [facility] of tablet 00:00: mouth at [place] bedtime. [facility] atorvastati 0 Yes [id number] 40mg Take 1 [facility] n 40 mg 5-05 tablet by [facility] of tablet 00:00: mouth at [place] bedtime. [facility] atorvastati 0 Yes [id number] 40mg Take 1 [facility] 40 mg 5-05 tablet by [facility] of tablet 00:00: mouth at [place] bedtime. [facility] atorvastati 0 Yes [id number] 40mg Take 1 [facility] 40 mg 5-05 tablet by [facility] tablet 00:00: mouth at [place] [address] bedtime. [facility] atorvastati 0 Yes [id number] 40mg Take 1 [facility] 40 mg 5-05 tablet by [facility] of tablet 00:00: mouth at [place] [address] bedtime. [facility] atorvastati 0 Yes [id number] 40mg Take 1 [facility] 40 mg 5-05 tablet by [facility] of tablet 00:00: mouth at [place] [address] bedtime. [facility] atorvastati 0 Yes [id number] 40mg Take 1 [facility] 40 mg 5-05 tablet by [facility] tablet 00:00: mouth at [place] [address] bedtime. [facility] atorvastati 0 Yes [id number] 40mg Take 1 [facility] 40 mg 5-05 tablet by [facility] tablet 00:00: mouth at [place] [address] bedtime. [facility] atorvastati 0 Yes [id number] 40mg Take 1 [facility] 40 mg 5-05 tablet by [facility] of tablet 00:00: mouth at [place] [address] bedtime. [facility] atorvastati 0 Yes [id number] 40mg Take 1 [facility] 40 mg 5-05 tablet by [facility] of tablet 00:00: mouth at [place] [address] bedtime. [facility] atorvastati 0 Yes [id number] 40mg Take 1 [facility] 40 mg 5-05 tablet by [facility] of tablet 00:00: mouth at [place] [address] bedtime. [facility] atorvastati 0 Yes [id number] 40mg Take 1 [facility] 40 mg 5-05 tablet by [facility] of tablet 00:00: mouth at [place] [address] bedtime. [facility] atorvastati 0 Yes [id number] 40mg Take 1 [facility] 40 mg 5-05 tablet by [facility] of tablet 00:00: mouth at [place] [address] bedtime. [facility] atorvastati 0 Yes [id number] 40mg Take 1 [facility] 40 mg 5-05 tablet by [facility] of tablet 00:00: mouth at [place] [address] bedtime. [facility] atorvastati 0 Yes [id number] 40mg Take 1 [facility] n 40 mg 5-05 tablet by [facility] of tablet 00:00: mouth at [place] [address] bedtime. [facility] atorvastati 0 3- No [id number] 40mg Take 1 [facility] n 40 mg 5-05 04-12 tablet by [facility] tablet 00:00: 00:00 mouth at [place] 00 :00 bedtime. [facility] allopurinoL 2021-0 Yes [id number] 300mg Take 1 [facility] 300 mg 2-08 tablet by [facility] tablet 00:00: mouth [place] 00 daily. [facility] allopurinoL 2021-0 Yes [id number] 300mg Take 1 [facility] 300 mg 2-08 tablet by [facility] tablet 00:00: mouth [place] 00 daily. [facility] allopurinoL 2021-0 Yes [id number] 300mg Take 1 [facility] 300 mg 2-08 tablet by [facility] tablet 00:00: mouth [place] 00 daily. [facility] allopurinoL 2021-0 Yes [id number] 300mg Take 1 [facility] 300 mg 2-08 tablet by [facility] tablet 00:00: mouth [place] 00 daily. [facility] allopurinoL 2021-0 Yes [id number] 300mg Take 1 [facility] 300 mg 2-08 tablet by [facility] tablet 00:00: mouth [place] 00 daily. [facility] allopurinoL 2021-0 Yes [id number] 300mg Take 1 [facility] 300 mg 2-08 tablet by [facility] tablet 00:00: mouth [place] 00 daily. [facility] allopurinoL 2021-0 Yes [id number] 300mg Take 1 [facility] 300 mg 2-08 tablet by [facility] of tablet 00:00: mouth [place] 00 daily. [facility] allopurinoL 2021-0 Yes [id number] 300mg Take 1 [facility] 300 mg 2-08 tablet by [facility] tablet 00:00: mouth [place] 00 daily. [facility] allopurinoL 2021-0 Yes [id number] 300mg Take 1 [facility] 300 mg 2-08 tablet by [facility] of tablet 00:00: mouth [place] 00 daily. [facility] allopurinoL 2021-0 Yes [id number] 300mg Take 1 [facility] 300 mg 2-08 tablet by [facility] of tablet 00:00: mouth [place] 00 daily. [facility] allopurinoL 2021-0 Yes [id number] 300mg Take 1 [facility] 300 mg 2-08 tablet by [facility] of tablet 00:00: mouth [place] 00 daily. [facility] allopurinoL 2021-0 Yes [id number] 300mg Take 1 [facility] 300 mg 2-08 tablet by [facility] of tablet 00:00: mouth [place] 00 daily. [facility] allopurinoL 2021-0 Yes [id number] 300mg Take 1 [facility] 300 mg 2-08 tablet by [facility] of tablet 00:00: mouth [place] 00 daily. [facility] allopurinoL 2021-0 Yes [id number] 300mg Take 1 [facility] 300 mg 2-08 tablet by [facility] of tablet 00:00: mouth [place] 00 daily. [facility] allopurinoL 2021-0 Yes [id number] 300mg Take 1 [facility] 300 mg 2-08 tablet by [facility] of tablet 00:00: mouth [place] 00 daily. [facility] allopurinoL 2021-0 Yes [id number] 300mg Take 1 [facility] 300 mg 2-08 tablet by [facility] of tablet 00:00: mouth [place] 00 daily. [facility] allopurinoL 2021-0 Yes [id number] 300mg Take 1 [facility] 300 mg 2-08 tablet by [facility] of tablet 00:00: mouth [place] 00 daily. [facility] allopurinoL 2021-0 Yes [id number] 300mg Take 1 [facility] 300 mg 2-08 tablet by [facility] of tablet 00:00: mouth [place] 00 daily. [facility] allopurinoL 2021-0 Yes [id number] 300mg Take 1 [facility] 300 mg 2-08 tablet by [facility] of tablet 00:00: mouth [place] 00 daily. [facility] allopurinoL 2021-0 Yes [id number] 300mg Take 1 [facility] 300 mg 2-08 tablet by [facility] of tablet 00:00: mouth [place] 00 daily. [facility] allopurinoL 2021-0 Yes [id number] 300mg Take 1 [facility] 300 mg 2-08 tablet by [facility] of tablet 00:00: mouth [place] 00 daily. [facility] allopurinoL 2021-0 Yes [id number] 300mg Take 1 [facility] 300 mg 2-08 tablet by [facility] of tablet 00:00: mouth [place] 00 daily. [facility] allopurinoL 2021-0 Yes [id number] 300mg Take 1 [facility] 300 mg 2-08 tablet by [facility] of tablet 00:00: mouth [place] 00 daily. [facility] allopurinoL 2021-0 Yes [id number] 300mg Take 1 [facility] 300 mg 2-08 tablet by [facility] of tablet 00:00: mouth [place] 00 daily. [facility] allopurinoL 2021-0 Yes [id number] 300mg Take 1 [facility] 300 mg 2-08 tablet by [facility] of tablet 00:00: mouth [place] 00 daily. [facility] allopurinoL 2021-0 Yes [id number] 300mg Take 1 [facility] 300 mg 2-08 tablet by it[facility] of tablet 00:00: mouth [place] 00 daily. [facility] allopurinoL 2021-0 Yes [id number] 300mg Take 1 [facility] 300 mg 2-08 tablet by it[facility] of tablet 00:00: mouth [place] 00 daily. [facility] allopurinoL 2022-0 Yes [id number] 300mg Take 1 [facility] 300 mg 2-08 tablet by [facility] of tablet 00:00: mouth [place] 00 daily. [facility] allopurinoL 2021-0 Yes [id number] 300mg Take 1 [facility] 300 mg 2-08 tablet by [facility] of tablet 00:00: mouth [place] 00 daily. [facility] allopurinoL 2021-0 Yes [id number] 300mg Take 1 [facility] 300 mg 2-08 tablet by it[facility] of tablet 00:00: mouth [place] 00 daily. [facility] allopurinoL 2021-0 Yes [id number] 300mg Take 1 [facility] 300 mg 2-08 tablet by [facility] of tablet 00:00: mouth [place] 00 daily. [facility] allopurinoL 2021-0 Yes [id number] 300mg Take 1 [facility] 300 mg 2-08 tablet by [facility] of tablet 00:00: mouth [place] 00 daily. [facility] allopurinoL 2021-0 Yes [id number] 300mg Take 1 [facility] 300 mg 2-08 tablet by it[facility] of tablet 00:00: mouth [place] 00 daily. [facility] allopurinoL 2021-0 Yes [id number] 300mg Take 1 [facility] 300 mg 2-08 tablet by it[facility] of tablet 00:00: mouth [place] 00 daily. [facility] allopurinoL 2021-0 Yes [id number] 300mg Take 1 [facility] 300 mg 2-08 tablet by it[facility] of tablet 00:00: mouth [place] 00 daily. [facility] allopurinoL 2021-0 Yes [id number] 300mg Take 1 [facility] 300 mg 2-08 tablet by ity of tablet 00:00: mouth [place] 00 daily. [facility] allopurinoL 2021-0 Yes [id number] 300mg Take 1 [facility] 300 mg 2-08 tablet by it[facility] of tablet 00:00: mouth [place] 00 daily. [facility] allopurinoL 2021-0 Yes [id number] 300mg Take 1 [facility] 300 mg 2-08 tablet by it[facility] of tablet 00:00: mouth [place] 00 daily. [facility] allopurinoL 2021-0 Yes [id number] 300mg Take 1 [facility] 300 mg 2-08 tablet by it[facility] of tablet 00:00: mouth [place] 00 daily. [facility] allopurinoL 2021-0 Yes [id number] 300mg Take 1 [facility] 300 mg 2-08 tablet by it[facility] of tablet 00:00: mouth [place] 00 daily. [facility] allopurinoL 2021-0 Yes [id number] 300mg Take 1 [facility] 300 mg 2-08 tablet by it[facility] of tablet 00:00: mouth [place] 00 daily. [facility] allopurinoL 2021-0 Yes [id number] 300mg Take 1 [facility] 300 mg 2-08 tablet by it[facility] of tablet 00:00: mouth [place] 00 daily. [facility] allopurinoL 2021-0 Yes [id number] 300mg Take 1 [facility] 300 mg 2-08 tablet by it[facility] of tablet 00:00: mouth [place] 00 daily. [facility] allopurinoL 2021-0 Yes [id number] 300mg Take 1 [facility] 300 mg 2-08 tablet by it[facility] of tablet 00:00: mouth [place] 00 daily. [facility] allopurinoL 2021-0 Yes [id number] 300mg Take 1 [facility] 300 mg 2-08 tablet by it[facility] of tablet 00:00: mouth [place] 00 daily. [facility] allopurinoL 2021-0 Yes [id number] 300mg Take 1 [facility] 300 mg 2-08 tablet by it[facility] of tablet 00:00: mouth [place] 00 daily. [facility] allopurinoL 2021-0 Yes [id number] 300mg Take 1 [facility] 300 mg 2-08 tablet by [facility] of tablet 00:00: mouth [place] 00 daily. [facility] allopurinoL 2021-0 Yes [id number] 300mg Take 1 [facility] 300 mg 2-08 tablet by it[facility] of tablet 00:00: mouth [place] 00 daily. [facility] allopurinoL 2021-0 Yes [id number] 300mg Take 1 [facility] 300 mg 2-08 tablet by it[facility] of tablet 00:00: mouth [place] 00 daily. [facility] allopurinoL 2021-0 Yes [id number] 300mg Take 1 [facility] 300 mg 2-08 tablet by it[facility] of tablet 00:00: mouth [place] 00 daily. [facility] allopurinoL 2021-0 Yes [id number] 300mg Take 1 [facility] 300 mg 2-08 tablet by ity of tablet 00:00: mouth [place] 00 daily. [facility] allopurinoL 2021-0 Yes [id number] 300mg Take 1 [facility] 300 mg 2-08 tablet by ity of tablet 00:00: mouth [place] 00 daily. [facility] Branch allopurinoL 2021-0 Yes [id number] 300mg Take 1 [facility] 300 mg 2-08 tablet by ity of tablet 00:00: mouth [place] 00 daily. [facility] Branch allopurinoL 2021-0 Yes [id number] 300mg Take 1 [facility] 300 mg 2-08 tablet by ity of tablet 00:00: mouth [place] 00 daily. [facility] allopurinoL 2021-0 Yes [id number] 300mg Take 1 [facility] 300 mg 2-08 tablet by ity of tablet 00:00: mouth [place] 00 daily. [facility] allopurinoL 2021-0 Yes [id number] 300mg Take 1 [facility] 300 mg 2-08 tablet by ity of tablet 00:00: mouth [place] 00 daily. [facility] allopurinoL 2021-0 Yes [id number] 300mg Take 1 [facility] 300 mg 2-08 tablet by ity of tablet 00:00: mouth [place] 00 daily. [facility] allopurinoL 2021-0 Yes [id number] 300mg Take 1 [facility] 300 mg 2-08 tablet by ity of tablet 00:00: mouth [place] 00 daily. [facility] allopurinoL 2021-0 Yes [id number] 300mg Take 1 [facility] 300 mg 2-08 tablet by ity of tablet 00:00: mouth [place] 00 daily. [facility] allopurinoL 2021-0 Yes [id number] 300mg Take 1 [facility] 300 mg 2-08 tablet by ity of tablet 00:00: mouth [place] 00 daily. [facility] allopurinoL 2021-0 Yes [id number] 300mg Take 1 [facility] 300 mg 2-08 tablet by ity of tablet 00:00: mouth [place] 00 daily. [facility] Branch allopurinoL 2021-0 Yes [id number] 300mg Take 1 [facility] 300 mg 2-08 tablet by ity of tablet 00:00: mouth [place] 00 daily. [facility] Branch allopurinoL 2021-0 Yes [id number] 300mg Take 1 [facility] 300 mg 2-08 tablet by ity of tablet 00:00: mouth [place] 00 daily. [facility] allopurinoL 2021-0 Yes [id number] 300mg Take 1 [facility] 300 mg 2-08 tablet by ity of tablet 00:00: mouth [place] 00 daily. [facility] Branch allopurinoL 2021-0 3- No [id number] 300mg Take 1 [facility] 300 mg 2-08 02-27 tablet by ity of tablet 00:00: 00:00 mouth [place] 00 :00 daily. [facility] Branch allopurinoL 2021-0 3- No [id number] 300mg Take 1 [facility] 300 mg 2-08 02-27 tablet by ity of tablet 00:00: 00:00 mouth [place] 00 :00 daily. [facility] allopurinoL 2022- No [id number] 300mg Take 1 [facility] 300 mg 04-19 tablet by ity of tablet 00:00: 00:00 mouth [place] 00 :00 daily. Medical Branch atorvastati 2021- No 40mg Take 40 mg [facility] n 40 mg 04-12 by mouth ity of tablet 15:31: 00:00 at [place] 17 :00 bedtime. [facility] Branch atorvastati 2021- No 40mg Take 40 mg [facility] n 40 mg 04-12 by mouth ity of tablet 15:31: 00:00 at [place] 17 :00 bedtime. [facility] Branch atorvastati 2021- No 40mg Take 40 mg [facility] n 40 mg 04-12 by mouth ity of tablet 15:31: 00:00 at [place] 17 :00 bedtime. [facility] Branch atorvastati 2021- No 40mg Take 40 mg [facility] n 40 mg 04-12 by mouth ity of tablet 15:31: 00:00 at [place] 17 :00 bedtime. [facility] Branch atorvastati 2021- No [id number] 40mg Take 1 [facility] n 40 mg 04-12-05 tablet by ity of tablet 00:00: 00:00 mouth at [place] 00 :00 bedtime Medical for 90 Branch days. atorvastati 2021- No [id number] 40mg Take 1 [facility] n 40 mg 04-12 05-05 tablet by ity of tablet 00:00: 00:00 mouth at [place] 00 :00 bedtime Medical for 90 Branch days. MEXILETINE 2021- No [id number] TAKE 1 [facility] 150 mg 03-12-11 CAPSULE BY ity of capsule 00:00: 00:00 MOUTH [place] 00 :00 EVERY 12 Medical HOURS Branch MEXILETINE 2021- No [id number] TAKE 1 [facility] 150 mg 03-12-11 CAPSULE BY ity of capsule 00:00: 00:00 MOUTH [place] 00 :00 EVERY 12 Medical HOURS Branch MEXILETINE 2021- No [id number] TAKE 1 [facility] 150 mg -03 15-11 CAPSULE BY ity of capsule 00:00: 00:00 MOUTH [place] 00 :00 EVERY 12 Medical HOURS Branch MEXILETINE 2021- No [id number] TAKE 1 [facility] 150 mg 03-12 CAPSULE BY ity of capsule 00:00: 00:00 MOUTH [place] 00 :00 EVERY 12 Medical HOURS Branch azithromyci 2020-03- No [id number] 500mg Take 1 [facility] n 500 mg 04-19 tablet by ity o f tablet 00:00: 00:00 mouth [place] 00 :00 daily. Medical Branch benzonatate 2020-03- No [id number] 200mg Take 1 [facility] 200 mg 04-19 capsule by ity of capsule 00:00: 00:00 mouth 3 [place] 00 :00 (three) Medical times [place] daily as needed for Cough. azithromyci 2020-03- No [id number] 500mg Take 1 [facility] n 500 mg 04-19 tablet by ity o f tablet 00:00: 00:00 mouth [place] 00 :00 daily. Medical Branch benzonatate 2020-03- No [id number] 200mg Take 1 [facility] 200 mg 04-19 capsule by ity of capsule 00:00: 00:00 mouth 3 [place] 00 :00 (three) Medical times [place] daily as needed for Cough. bumetanide 2020-03- No Take 3 [facility] ers 2 mg tablet 2-17 04-01 mg(one and i ty of 00:00: 00:00 a half [place] 00 :00 tabs) in Medical the Branch morning and 2 mg(one tab) in the evening bumetanide 2020-03- No Take 3 [facility] ers 2 mg tablet 2-17 04-01 mg(one and i ty of 00:00: 00:00 a half [place] 00 :00 tabs) in Medical the Branch morning and 2 mg(one tab) in the evening bumetanide 2020-03- No Take 3 [facility] ers 2 mg tablet 2-17 04-01 mg(one and i ty of 00:00: 00:00 a half [place] 00 :00 tabs) in Medical the Branch morning and 2 mg(one tab) in the evening bumetanide 2020-03- No Take 3 [facility] ers 2 mg tablet 2-17 04-01 mg(one and i ty of 00:00: 00:00 a half [place] 00 :00 tabs) in Medical the Branch morning and 2 mg(one tab) in the evening losartan 50 2020-03- No 50mg Take 1 [facility] vers mg tablet 04-18- tablet by ity of 00:00: 00:00 mouth at [place] 00 :00 bedtime. Medical Branch losartan 50 2020-03- No 50mg Take 1 [facility] vers mg tablet 04-18- tablet by ity of 00:00: 00:00 mouth at [place] 00 :00 bedtime. Medical Branch losartan 50 2020-03- No 50mg Take 1 [facility] vers mg tablet 04-18-05 tablet by ity of 00:00: 00:00 mouth at [place] 00 :00 bedtime. Medical Branch losartan 50 2020-03- No 50mg Take 1 [facility] vers mg tablet 04-18- tablet by ity of 00:00: 00:00 mouth at [place] 00 :00 bedtime. Medical Branch spironolact 2020-03- No [id number] 12.5mg Take 0.5 [facility] one 25 mg 04-18- tablets by ity of tablet 00:00: 00:00 mouth [place] 00 :00 daily. Medical Branch spironolact 2020-03- No [id number] 12.5mg Take 0.5 [facility] one 25 mg 04-18- tablets by ity of tablet 00:00: 00:00 mouth [place] 00 :00 daily. Medical Branch spironolact 2020-03- No [id number] 12.5mg Take 0.5 [facility] one 25 mg 04-18 tablets by ity of tablet 00:00: 00:00 mouth [place] 00 :00 daily. Medical Branch spironolact 2020-03- No [id number] 12.5mg Take 0.5 [facility] one 25 mg 04-18- tablets by ity of tablet 00:00: 00:00 mouth [place] 00 :00 daily. Medical Branch carvediloL 2020-03- No [id number] 25mg Take 1 [facility] 25 mg 04-02-05 tablet by ity of tablet 00:00: 00:00 mouth 2 [place] 00 :00 (two) Medical times Branch daily with meals. carvediloL 2020-03- No [id number] 25mg Take 1 [facility] 25 mg 1-22 05-05 tablet by ity of tablet 00:00: 00:00 mouth 2 [place] 00 :00 (two) Medical times Branch daily with meals. carvediloL 2020-03- No [id number] 25mg Take 1 [facility] 25 mg 1-22 05-05 tablet by ity of tablet 00:00: 00:00 mouth 2 [place] 00 :00 (two) Medical times Branch daily with meals. carvediloL 2020-03- No [id number] 25mg Take 1 [facility] 25 mg 1-22 05-05 tablet by ity of tablet 00:00: 00:00 mouth 2 [place] 00 :00 (two) Medical times Branch daily with meals. KCL 10 mEq 2020-03- No 10meq Take 10 Un [place] tablet 03-20 11-09 mEq by ity of 16:18: 00:00 mouth [place] 38 :00 daily. Medical Branch KCL 10 mEq 2020-03- No 10meq Take 10 Un [place] tablet 03-20 11-09 mEq by ity of 16:18: 00:00 mouth [place] 38 :00 daily. Medical Branch zolpidem 5 2020-03- No 5mg Take 5 mg U nivers mg tablet 03-19 by mouth ity o f 14:37: 00:00 at bedtime [place] 10 :00 as needed Medical for Branch Insomnia. zolpidem 5 2020-03- No 5mg Take 5 mg U nivers mg tablet 03-19 by mouth ity o f 14:37: 00:00 at bedtime [place] 10 :00 as needed Medical for Branch Insomnia. omeprazole 2020-03 Yes [id number] 40mg Take 1 [facility] 40 mg 1-01 capsule by ity of capsule 00:00: mouth [place] 00 daily. Medical Branch omeprazole 2020-03 Yes [id number] 40mg Take 1 [facility] 40 mg 1-01 capsule by ity of capsule 00:00: mouth [place] 00 daily. Medical Branch omeprazole 2020-03 Yes [id number] 40mg Take 1 [facility] 40 mg 1-01 capsule by ity of capsule 00:00: mouth [place] 00 daily. Medical Branch omeprazole 2020-03 Yes [id number] 40mg Take 1 [facility] 40 mg 1-01 capsule by ity of capsule 00:00: mouth [place] 00 daily. Medical Branch omeprazole 2020-03 Yes [id number] 40mg Take 1 [facility] 40 mg 1-01 capsule by ity of capsule 00:00: mouth [place] 00 daily. Medical Branch omeprazole 2020-03 Yes [id number] 40mg Take 1 [facility] 40 mg 1-01 capsule by ity of capsule 00:00: mouth [place] 00 daily. Medical Branch omeprazole 2020-03 Yes [id number] 40mg Take 1 [facility] 40 mg 1-01 capsule by ity of capsule 00:00: mouth [place] 00 daily. Medical Branch omeprazole 2020-03 Yes [id number] 40mg Take 1 [facility] 40 mg 1-01 capsule by ity of capsule 00:00: mouth [place] 00 daily. Medical Branch omeprazole 2020-03 Yes [id number] 40mg Take 1 [facility] 40 mg 1-01 capsule by ity of capsule 00:00: mouth [place] 00 daily. Medical Branch omeprazole 2020-03 Yes [id number] 40mg Take 1 [facility] 40 mg 1-01 capsule by ity of capsule 00:00: mouth [place] 00 daily. Medical Branch omeprazole 2020-03 Yes [id number] 40mg Take 1 [facility] 40 mg 1-01 capsule by ity of capsule 00:00: mouth [place] 00 daily. Medical Branch omeprazole 2020-03 Yes [id number] 40mg Take 1 [facility] 40 mg 1-01 capsule by ity of capsule 00:00: mouth [place] 00 daily. Medical Branch omeprazole 2020-03 Yes [id number] 40mg Take 1 [facility] 40 mg 1-01 capsule by ity of capsule 00:00: mouth [place] 00 daily. Medical Branch omeprazole 2020-03 Yes [id number] 40mg Take 1 [facility] 40 mg 1-01 capsule by ity of capsule 00:00: mouth [place] 00 daily. Medical Branch omeprazole 2020-03 Yes [id number] 40mg Take 1 [facility] 40 mg 1-01 capsule by ity of capsule 00:00: mouth [place] 00 daily. Medical Branch omeprazole 2020-03 Yes [id number] 40mg Take 1 [facility] 40 mg 1-01 capsule by [facility] capsule 00:00: mouth [place] 00 daily. [facility] omeprazole 2020-03 Yes [id number] 40mg Take 1 [facility] 40 mg 03-12 capsule by [facility] capsule 00:00: mouth [place] 00 daily. [facility] omeprazole 2020-03- No [id number] 40mg Take 1 [facility] 40 mg 03-12 capsule by [facility] capsule 00:00: 00:00 mouth [place] 00 :00 daily. [facility] omeprazole 2020-03- No [id number] 40mg Take 1 [facility] 40 mg 03-12 capsule by [facility] capsule 00:00: 00:00 mouth [place] 00 :00 daily. [facility] omeprazole 2020-03- No [id number] 40mg Take 1 [facility] 40 mg 03-12 capsule by [facility] capsule 00:00: 00:00 mouth [place] 00 :00 daily. [facility] omeprazole 2020-03- No [id number] 40mg Take 1 [facility] 40 mg 03-12 capsule by [facility] capsule 00:00: 00:00 mouth [place] 00 :00 daily. [facility] omeprazole 2020-03- No [id number] 40mg Take 1 [facility] 40 mg 03-12 capsule by [facility] capsule 00:00: 00:00 mouth [place] 00 :00 daily. [facility] furosemide 2020-03- No 20mg Take 20 mg [facility] (LASIX) 20 0-26 10-26 by mouth [facility]y of mg tablet 13:16: 00:00 daily. [place] 03 :00 Medical Branch SERTraline 2020-03- No 100mg Take 100 [facility] 100 mg 0-26 10-26 mg by ity of tablet 13:16: 00:00 mouth 2 [place] 03 :00 (two) Medical times Branch daily. furosemide 2020-03- No 20mg Take 20 mg [facility] (LASIX) 20 0-26 10-26 by mouth ity of mg tablet 13:16: 00:00 daily. [place] 03 :00 Medical Branch SERTraline 2020-03- No 100mg Take 100 [facility] 100 mg 0-26 10-26 mg by ity of tablet 13:16: 00:00 mouth 2 [place] 03 :00 (two) Medical times Branch daily. gabapentin 2020-03 Yes [id number] 600mg Take 2 [facility] 300 mg 0-26 capsules [facility] capsule 00:00: [place] (two[place] [facility] times [facility] daily. gabapentin 2020- Yes [id number] 600mg Take 2 [facility] 300 mg 0-26 capsules [facility] capsule 00:00: [place] mouth [place] (two) Medical times [facility] daily. gabapentin 2020- Yes [id number] 600mg Take 2 [facility] 300 mg 0-26 capsules [facility] capsule 00:00: [place] mouth [place] (two) Medical times [facility] daily. gabapentin 2020- Yes [id number] 600mg Take 2 [facility] 300 mg 0-26 capsules [facility] capsule 00:00: [place] mouth [place] (two) Medical times [facility] daily. gabapentin 2020- Yes [id number] 600mg Take 2 [facility] 300 mg 0-26 capsules [facility] capsule 00:00: [place] mouth [place] (two) Medical times [facility] daily. gabapentin 2020-03 Yes [id number] 600mg Take 2 [facility] 300 mg 0-26 capsules [facility] capsule 00:00: [place] mouth [place] (two) Medical times [facility] daily. gabapentin 2020-03 Yes [id number] 600mg Take 2 [facility] 300 mg 0-26 capsules [facility] capsule 00:00: [place] mouth [place] (two) Medical times [facility] daily. gabapentin 2020- Yes [id number] 600mg Take 2 [facility] 300 mg 0-26 capsules [facility] capsule 00:00: by mouth [place] (two) Medical times [facility] daily. gabapentin 2020- Yes [id number] 600mg Take 2 [facility] 300 mg 0-26 capsules [facility] capsule 00:00: [place] mouth [place] (two) [facility] times [facility] daily. gabapentin 2020- Yes [id number] 600mg Take 2 [facility] 300 mg 0-26 capsules [facility] capsule 00:00: by mouth [place] (two) Medical times [facility] daily. gabapentin 2020- Yes [id number] 600mg Take 2 [facility] 300 mg 0-26 capsules [facility] capsule 00:00: [place] mouth [place] (two) Medical times [facility] daily. gabapentin 2020- Yes [id number] 600mg Take 2 [facility] 300 mg 0-26 capsules [facility] capsule 00:00: by mouth [place] (two) Medical times [facility] daily. gabapentin 2020-03 Yes [id number] 600mg Take 2 [facility] 300 mg 0-26 capsules [facility] capsule 00:00: by mouth [place] (two) Medical times [facility] daily. gabapentin 2020-03 Yes [id number] 600mg Take 2 [facility] 300 mg 0-26 capsules [facility] capsule 00:00: [place] mouth [place] (two) Medical times [facility] daily. gabapentin 2020-03 Yes [id number] 600mg Take 2 [facility] 300 mg 0-26 capsules [facility] capsule 00:00: by mouth [place] (two) Medical times [facility] daily. gabapentin 2020-03 Yes [id number] 600mg Take 2 [facility] 300 mg 0-26 capsules [facility] capsule 00:00: by mouth [place] (two) Medical times [facility] daily. gabapentin 2020-03 Yes [id number] 600mg Take 2 [facility] 300 mg 0-26 capsules [facility] capsule 00:00: by mouth [place] (two) Medical times [facility] daily. gabapentin 2020-03- No [id number] 600mg Take 2 [facility] 300 mg 0-26 11-03 capsules [facility] of capsule 00:00: 00:00 by mouth 2 [place] 00 :00 (two) Medical times Branch daily. gabapentin 2020-03- No [id number] 600mg Take 2 [facility] 300 mg 0-26 11-03 capsules [facility] of capsule 00:00: 00:00 by mouth 2 [place] 00 :00 (two) Medical times Branch daily. gabapentin 2020-03- No [id number] 600mg Take 2 [facility] 300 mg 0-26 11-03 capsules [facility] of capsule 00:00: 00:00 by mouth 2 [place] 00 :00 (two) Medical times Branch daily. gabapentin 2020-03- No [id number] 600mg Take 2 [facility] 300 mg 0-26 11-03 capsules [facility]y of capsule 00:00: 00:00 by mouth 2 [place] 00 :00 (two) Medical times Branch daily. gabapentin 2020-03- No [id number] 600mg Take 2 [facility] 300 mg 0-26 11-03 capsules [facility]y of capsule 00:00: 00:00 by mouth 2 [place] 00 :00 (two) Medical times Branch daily. SERTraline 2020-03- No [id number] 100mg Take 1 [facility] 100 mg 0-26 -14 tablet by ity of tablet 00:00: 00:00 mouth 2 [place] 00 :00 (two) Medical times Branch daily. SERTraline 2020-03- No [id number] 100mg Take 1 [facility] 100 mg 0-26 09-14 tablet by ity of tablet 00:00: 00:00 mouth 2 [place] 00 :00 (two) Medical times Branch daily. SERTraline 2020-03- No [id number] 100mg Take 1 [facility] 100 mg 0-26 -14 tablet by ity of tablet 00:00: 00:00 mouth 2 [place] 00 :00 (two) Medical times Branch daily. SERTraline 2020-03- No [id number] 100mg Take 1 [facility] 100 mg 0-05 12-14 tablet by ity of tablet 00:00: 00:00 mouth 2 [place] 00 :00 (two) Medical times Branch daily. warfarin 2020-03- No [id number] 7.5mg Take 1 [facility] 7.5 mg 0-19 03-29 tablet by ity of tablet 00:00: 00:00 mouth [place] 00 :00 every Medical evening. Branch warfarin 2020-03- No [id number] 7.5mg Take 1 [facility] 7.5 mg 0-19 03-29 tablet by ity of tablet 00:00: 00:00 mouth [place] 00 :00 every Medical evening. Branch warfarin 2020-03- No [id number] 7.5mg Take 1 [facility] 7.5 mg 0-19 03-29 tablet by ity of tablet 00:00: 00:00 mouth [place] 00 :00 every Medical evening. Branch warfarin 2020-03- No [id number] 7.5mg Take 1 [facility] 7.5 mg 0-19 03-29 tablet by ity of tablet 00:00: 00:00 mouth [place] 00 :00 every Medical evening. Branch carvediloL 2020- No [id number] 6.25mg Take 0.5 [facility] 12.5 mg 9-28 10-28 tablets by ity o f tablet 00:00: 00:00 mouth 2 [place] 00 :00 (two) Medical times Branch daily with meals for 90 days. carvediloL 2020- No [id number] 6.25mg Take 0.5 [facility] 12.5 mg 9-28 10-28 tablets by ity o f tablet 00:00: 00:00 mouth 2 [place] 00 :00 (two) Medical times Branch daily with meals for 90 days. warfarin 5 2020- No 7.5mg Take 1.5 [facility] nivers mg tablet 11-11- tablets by ity of 00:00: 00:00 mouth [place] 00 :00 every Medical evening. Branch warfarin 5 2020- No 7.5mg Take 1.5 [facility] mg tablet 11-11- tablets by ity of 00:00: 00:00 mouth [place] 00 :00 every Medical evening. [place] omeprazole Yes 20mg QD Take [address] [facility] (PRILOSEC) 5-10 by [facility] 10 MG 09:09: daily . Medical capsule 20 Center citalopram Yes 40mg Take [address] [facility] (CELEXA) 40 5-10 by mouth. [facility] MG tablet 09:09: Medical 20 [place] furosemide Yes 20mg Take [address] [facility] (LASIX) 20 5-10 by mouth [facility] tablet 09:09: as needed Med ical 20 . [place] allopurinol Yes 300mg QD Take [address] (ZYLOPRIM) 5-10 mg by [facility] 300 MG 09:09: mouth Medical tablet 20 daily . [place] HYDROcodone Yes 1{tbl} Take 1 [facility] [...] mouth [facility] 1 MG tablet 09:09: daily. [facility] drew 20 Center MORPHINE IN 2017-[address] [facility] NACL, 5-10 Intratheca [...] tablet 09:09: mouth Medical 20 nightly . [place] omeprazole Yes 20mg QD Take [address] (PRILOSEC) 5-10 by mouth [facility] 10 MG 09:09: daily . Medical capsule 20 Center citalopram Yes 40mg Take [address] [facility] (CELEXA) 40 5-10 by mouth. [facility] [facility] MG tablet 09:09: Medical 20 [place] furosemide Yes 20mg Take [address] (LASIX) 20 5-10 by mouth [facility] tablet 09:09: as needed Med ical 20 . [place] allopurinol Yes 300mg QD Take [address] (ZYLOPRIM) 5-10 mg by [facility] 300 MG 09:09: mouth Medical tablet 20 daily . [place] HYDROcodone Yes 1{tbl} Take 1 [facility] [...] 20 (two) Center times daily . primidone 2017-0 Yes 50mg QD Take [address] (MYSOLINE) 5-10 by mouth [facility] 50 MG 09:09: daily. Medical tablet 20 Center clonazePAM Yes 1mg QD Take [address] [facility] (KLONOPIN) 5-10 by mouth [facility] 1 MG tablet 09:09: daily. [facility] 20 Center MORPHINE IN 2017 Yes by [...] 09:09: as needed Med ical 20 . [place] allopurinol Yes 300mg QD Take [address] (ZYLOPRIM) 5-10 mg by [facility] 300 MG 09:09: mouth Medical tablet 20 daily . [place] HYDROcodone Yes 1{tbl} Take [address] -acetaminop 5-10 tablet by [facility] es hen (NORCO 09:09: mouth Medica l 10-325) 20 every 6 Center 10-325 mg (six) per tablet hours as needed . gemfibrozil Yes 600mg Q.5D Take [address] (LOPID) 600 5-10 mg by [facility] MG tablet 09:09: mouth 2 Medic al 20 (two) Center times daily . primidone 2017- Yes 50mg QD Take [address] (MYSOLINE) 5-10 by mouth [facility] 50 MG 09:09: daily. Medical tablet 20 Center clonazePAM Yes 1mg QD Take [address] [facility] (KLONOPIN) 5-10 by mouth [facility] 1 MG tablet 09:09: daily. [facility] 20 Center MORPHINE IN Yes by [facility] NACL, 5-10 Intratheca [facility] ISO-OSM/PF 09:09: l route. Med ical (MORPHINE, 20 Center PF, IN NACL, ISO-OSM INTRATHECAL ) losartan 2017- Yes 50mg QD Take [address] [facility] (COZAAR) 50 5-10 by mouth [facility] MG tablet 09:09: daily. Medica l 20 Center pramipexole 2017- Yes 1.5mg QD Take 1.[address] (MIRAPEX) 1 5-10 mg by [facility] MG tablet 09:09: mouth Medical 20 nightly . Center omeprazole 2017 Yes 20mg QD Take 20 mg C [...] 09:09: as needed Med ical 20 . [place] allopurinol Yes 300mg QD Take [address] (ZYLOPRIM) 5-10 mg by [facility] 300 MG 09:09: mouth Medical tablet 20 daily . [place] HYDROcodone Yes 1{tbl} Take [address] -acetaminop 5-10 tablet by [facility] hen (NORCO 09:09: mouth Medica l 10-325) 20 every 6 Center 10-325 mg (six) per tablet hours as needed . gemfibrozil 2017-0 Yes 600mg Q.5D Take [address] (LOPID) 600 5-10 mg by [facility] MG tablet 09:09: mouth 2 Medic al 20 (two) Center times daily . primidone 2017-0 Yes 50mg QD Take [address] (MYSOLINE) 5-10 by mouth [facility] 50 MG 09:09: daily. Medical tablet 20 Center clonazePAM 2017-0 Yes 1mg QD Take [address] [facility] (KLONOPIN) 5-10 by mouth [facility] 1 MG tablet 09:09: daily. Medi drew 20 Center MORPHINE IN 2017-[address] [facility] NACL, 5-10 Intratheca [...] [facility] es MG tablet 09:09: Medical 20 [place] pramipexole Yes 1.5mg QD Take 1.[address] (MIRAPEX) 1 5-10 mg by [facility] MG tablet 09:09: mouth Medical 20 nightly . [place] furosemide Yes 20mg Take [address] (LASIX) 20 5-10 by mouth [facility] MG tablet 09:09: as needed Med ical 20 . [place] allopurinol Yes 300mg QD Take [address] (ZYLOPRIM) 5-10 mg by [facility] 300 MG 09:09: mouth Medical tablet 20 daily . [place] HYDROcodone Yes 1{tbl} Take [address] -acetaminop 5-10 tablet by [facility] hen (NORCO 09:09: mouth Medica l 10-325) 20 every 6 Center 10-325 mg (six) per tablet hours as needed . gemfibrozil Yes 600mg Q.5D Take [address] (LOPID) 600 5-10 mg by [facility] MG tablet 09:09: mouth 2 Medic al 20 (two) Center times daily . primidone 2017 Yes 50mg QD Take 50 mg [facility] [...] 09:09: as needed Med ical 20 . [place] allopurinol Yes 300mg QD Take [address] (ZYLOPRIM) 5-10 mg by [facility] 300 MG 09:09: mouth Medical tablet 20 daily . [place] HYDROcodone Yes 1{tbl} Take [address] -acetaminop 5-10 tablet by [facility] hen (NORCO 09:09: mouth Medica l 10-325) 20 every 6 Center 10-325 mg (six) per tablet hours as needed . gemfibrozil Yes 600mg Q.5D Take [address] (LOPID) 600 5-10 mg by [facility] MG tablet 09:09: mouth 2 Medic al 20 (two) Center times daily . primidone 2017 Yes 50mg QD Take [address] (MYSOLINE) 5-10 by mouth [facility] 50 MG 09:09: daily. Medical tablet 20 Center clonazePAM Yes 1mg QD Take [address] (KLONOPIN) 5-10 by mouth [facility] 1 MG tablet 09:09: daily. [facility] drew 20 Center MORPHINE IN Yes by [facility] NACL, 5-10 Intratheca [facility] ISO-OSM/PF 09:09: l route. Med ical (MORPHINE, 20 Center PF, IN NACL, ISO-OSM INTRATHECAL ) losartan 2017- Yes 50mg QD Take [address] [facility] (COZAAR) 50 5-10 by mouth [facility] MG tablet 09:09: daily. Medica l 20 Center omeprazole 20170 Yes 20mg QD Take [address] (PRILOSEC) 5-10 by mouth [facility] 10 MG 09:09: daily . Medical capsule 20 Center citalopram 20170 Yes 40mg Take [address] (CELEXA) 40 5-10 by mouth. [place] [facility] MG tablet 09:09: Medical 20 Center furosemide 2017-0 Yes 20mg Take 20 mg [facility] [...] per tablet hours as needed . gemfibrozil 20170 Yes 600mg Q.5D Take [address] (LOPID) 600 5-10 mg by [facility] MG tablet 09:09: mouth 2 Medic al 20 (two) Center times daily . primidone 2017- Yes 50mg QD Take [address] (MYSOLINE) 5-10 by mouth [facility] 50 MG 09:09: daily. Medical tablet 20 Center clonazePAM 2017-0 Yes 1mg QD Take [address] (KLONOPIN) 5-10 by mouth [facility] 1 MG tablet 09:09: daily. Medi drew 20 Center MORPHINE IN 2017-[address] [facility] NACL, 5-10 Intratheca [facility] ISO-OSM/PF 09:09: l route. Med ical (MORPHINE, 20 Center PF, IN NACL, ISO-OSM INTRATHECAL ) losartan 2017- Yes 50mg QD Take [address] (COZAAR) 50 5-10 by mouth [facility] MG tablet 09:09: daily. Medica l 20 Center pramipexole Yes 1.5mg QD Take 1.[address] (MIRAPEX) 1 5-10 mg by [facility] MG tablet 09:09: mouth Medical 20 nightly . [place] allopurinol 2021- No [id number] 300mg Take 1 [facility] 300 mg 3-09 05-08 tablet by ity of tablet 00:00: 00:00 mouth [place] 00 :00 daily. [facility] allopurinol 2021- No [id number] 300mg Take 1 [facility] 300 mg 3-28 -08 tablet by ity of tablet 00:00: 00:00 mouth [place] 00 :00 daily. [facility] allopurinol 2016-2021- No [id number] 300mg Take 1 [facility] 300 mg 3-09 05-08 tablet by ity of tablet 00:00: 00:00 mouth [place] 00 :00 daily. [facility] allopurinol 2016-2021- No [id number] 300mg Take 1 [facility] 300 mg -09 05-08 tablet by ity of tablet 00:00: 00:00 mouth [place] 00 :00 daily. [facility] losartan 50 2020- No 50mg Take 1 Uni vers mg tablet 317 -28 tablet by ity of 00:00: 00:00 mouth [place] 00 :00 daily. [facility] losartan 50 2020- No 50mg Take 1 Uni vers mg tablet 3-28 tablet by ity of 00:00: 00:00 mouth [place] 00 :00 daily. [facility] gabapentin Yes 300mg QD Take [address] (NEURONTIN) 2-07 mg by [facility] 300 MG 00:00: mouth Medical capsule 00 nightly . [place] gabapentin Yes 300mg QD Take [address] (NEURONTIN) 2-07 mg by [facility] 300 MG 00:00: mouth Medical capsule 00 nightly . [place] gabapentin 2017- Yes 300mg QD Take [address] (NEURONTIN) 2-07 mg by [facility] 300 MG 00:00: mouth Medical capsule 00 nightly . [place] gabapentin Yes 300mg QD Take [address] (NEURONTIN) 2-07 mg by [facility] 300 MG 00:00: mouth Medical capsule 00 nightly . [place] gabapentin 2016- Yes 300mg QD Take [address] (NEURONTIN) 2-07 mg by [facility] 300 MG 00:00: mouth Medical capsule 00 nightly . [place] gabapentin Yes 300mg QD Take [address] (NEURONTIN) 2-07 mg by [facility] 300 MG 00:00: mouth Medical capsule 00 nightly . [place] gabapentin Yes 300mg QD Take [address] (NEURONTIN) 2-07 mg by [facility] 300 MG 00:00: mouth Medical capsule 00 nightly . [place] traZODone Yes 50mg QD Take [address] (DESYREL) 1-23 by mouth [facility] 50 MG 00:00: daily . Medical tablet 00 [place] traZODone Yes 50mg QD Take [address] (DESYREL) 1-23 by mouth [facility] 50 MG 00:00: daily . Medical tablet 00 [place] traZODone Yes 50mg QD Take [address] (DESYREL) 1-23 by mouth [facility] 50 MG 00:00: daily . Medical tablet [place] traZODone Yes 50mg QD Take [address] (DESYREL) 1-23 by mouth [facility] 50 MG 00:00: daily . Medical tablet 00 [place] traZODone Yes 50mg QD Take [address] (DESYREL) 1-23 by mouth [facility] 50 MG 00:00: daily . Medical tablet 00 [place] traZODone Yes 50mg QD Take [address] (DESYREL) 1-23 by mouth [facility] 50 MG 00:00: daily . Medical tablet 00 [place] traZODone Yes 50mg QD Take [address] (DESYREL) 1-23 by mouth [facility] 50 MG 00:00: daily . Medical tablet 00 [place] Immunizations Ordered Filled Date Status Comments Source Immunization Name Immunization Name SARS-COV-2 COVID-19 2021-04-19 Completed Unive rsity of MODERNA 0.25ML 00:00:00 [facility] BOOSTER VACCINE Branch Influenza Virus 2021-04-19 Completed Universit y of Vaccine,quad 00:00:00 [place] [facility] Branch 65+ SARS-COV-2 [...] Universit y of Vaccine (3+ yrs) 00:00:00 [facility] dical Branch Influenza Virus 2019-12-24 Completed Universit y of Vaccine (3+ yrs) 00:00:00 [facility] dical Branch Influenza Virus 2019-12-24 Completed Universit y of Vaccine (3+ yrs) 00:00:00 [facility] dical Branch Influenza Virus 2019-12-24 Completed Universit y of Vaccine (3+ yrs) 00:00:00 [facility] dical Branch Influenza Virus 2019-12-24 Completed Universit y of Vaccine (3+ yrs) 00:00:00 [facility] dical Branch Influenza Virus 2019-12-24 Completed Universit y of Vaccine (3+ yrs) 00:00:00 [facility] [place] [facility] Influenza Virus 2019-12-24 Completed Universit y of Vaccine (3+ yrs) 00:00:00 [facility] [place] [facility] Influenza Virus 2019-12-24 Completed Universit y of Vaccine (3+ yrs) 00:00:00 [facility] [place] [facility] Influenza Virus 2019-12-24 Completed Universit y of Vaccine (3+ yrs) 00:00:00 [facility] [place] [facility] Influenza Virus 2019-12-24 Completed Universit y of Vaccine (3+ yrs) 00:00:00 [facility] [place] [facility] Influenza Virus 2019-12-24 Completed Universit y of Vaccine (3+ yrs) 00:00:00 [facility] [place] [facility] Influenza Virus 2019-12-24 Completed Universit y of Vaccine (3+ yrs) 00:00:00 [facility] [place] [facility] Influenza Virus 2019-12-24 Completed Universit y of Vaccine (3+ yrs) 00:00:00 [facility] [place] [facility] Influenza Virus 2019-12-24 Completed Universit y of Vaccine (3+ yrs) 00:00:00 [facility] [place] [facility] Influenza Virus 2019-12-24 Completed Universit y of Vaccine (3+ yrs) 00:00:00 [facility] [place] [facility] Influenza Virus 2019-12-24 Completed Universit y of Vaccine (3+ yrs) 00:00:00 [facility] [place] [facility] Influenza Virus 2019-12-24 Completed Universit y of Vaccine (3+ yrs) 00:00:00 [facility] [place] [facility] Influenza Virus 2019-12-24 Completed Universit y of Vaccine (3+ yrs) 00:00:00 [facility] [place] [facility] Influenza Virus 2019-12-24 Completed Universit y of Vaccine (3+ yrs) 00:00:00 [facility] [place] [facility] Influenza Virus 2019-12-24 Completed Universit y of Vaccine (3+ yrs) 00:00:00 [facility] [place] [facility] Influenza Virus 2019-12-24 Completed Universit y of Vaccine (3+ yrs) 00:00:00 [facility] [place] [facility] Influenza Virus 2019-12-24 Completed Universit y of Vaccine (3+ yrs) 00:00:00 [facility] [place] [facility] Influenza Virus 2019-12-24 Completed Universit y of Vaccine (3+ yrs) 00:00:00 [facility] [place] [facility] Influenza Virus 2019-12-24 Completed Universit y of Vaccine (3+ yrs) 00:00:00 [facility] [place] [facility] Influenza Virus 2019-12-24 Completed Universit y of Vaccine (3+ yrs) 00:00:00 [facility] [place] [facility] Influenza Virus 2019-12-24 Completed Universit y of Vaccine (3+ yrs) 00:00:00 [facility] [place] [facility] Influenza Virus 2019-12-24 Completed Universit y of Vaccine (3+ yrs) 00:00:00 [facility] [place] [facility] Influenza Virus 2019-12-24 Completed Universit y of Vaccine (3+ yrs) 00:00:00 [facility] [place] [facility] Influenza Virus 2019-12-24 Completed Universit y of Vaccine (3+ yrs) 00:00:00 [facility] [place] [facility] Influenza Virus 2019-12-24 Completed Universit y of Vaccine (3+ yrs) 00:00:00 [facility] [place] [facility] Influenza Virus 2019-12-24 Completed Universit y of Vaccine (3+ yrs) 00:00:00 [facility] [place] [facility] Influenza Virus 2019-12-24 Completed Universit y of Vaccine (3+ yrs) 00:00:00 [facility] [place] [facility] Influenza Virus 2019-12-24 Completed Universit y of Vaccine (3+ yrs) 00:00:00 [facility] [place] [facility] Influenza Virus 2019-12-24 Completed Universit y of Vaccine (3+ yrs) 00:00:00 [facility] [place] [facility] Influenza Virus 2019-12-24 Completed Universit y of Vaccine (3+ yrs) 00:00:00 [facility] [place] [facility] Influenza Virus 2019-12-24 Completed Universit y of Vaccine (3+ yrs) 00:00:00 [facility] [place] [facility] Influenza Virus 2019-12-24 Completed Universit y of Vaccine (3+ yrs) 00:00:00 [facility] [place] [facility] Influenza Virus 2019-12-24 Completed Universit y of Vaccine (3+ yrs) 00:00:00 [facility] [place] [facility] Influenza Virus 2019-12-24 Completed Universit y of Vaccine (3+ yrs) 00:00:00 [facility] [place] [facility] Influenza Virus 2019-12-24 Completed Universit y of Vaccine (3+ yrs) 00:00:00 [facility] [place] [facility] Influenza Virus 2019-12-24 Completed Universit y of Vaccine (3+ yrs) 00:00:00 [facility] [place] [facility] Influenza Virus 2019-12-24 Completed Universit y of Vaccine (3+ yrs) 00:00:00 [facility] [place] [facility] Influenza Virus 2019-12-24 Completed Universit y of Vaccine (3+ yrs) 00:00:00 [facility] [place] [facility] Influenza Virus 2019-12-24 Completed Universit y of Vaccine (3+ yrs) 00:00:00 [facility] [place] [facility] Influenza Virus 2019-12-24 Completed Universit y of Vaccine (3+ yrs) 00:00:00 [facility] [place] [facility] Influenza Virus 2019-12-24 Completed Universit y of Vaccine (3+ yrs) 00:00:00 [facility] [place] [facility] Influenza Virus 2019-12-24 Completed Universit y of Vaccine (3+ yrs) 00:00:00 [facility] [place] [facility] Influenza Virus 2019-12-24 Completed Universit y of Vaccine (3+ yrs) 00:00:00 [facility] [place] [facility] Influenza Virus 2019-12-24 Completed Universit y of Vaccine (3+ yrs) 00:00:00 [facility] [place] [facility] Influenza Virus 2019-12-24 Completed Universit y of Vaccine (3+ yrs) 00:00:00 [facility] [place] [facility] Influenza Virus 2019-12-24 Completed Universit y of Vaccine (3+ yrs) 00:00:00 [facility] [place] [facility] Influenza Virus 2019-12-24 Completed Universit y of Vaccine (3+ yrs) 00:00:00 [facility] [place] [facility] Influenza Virus 2019-12-24 Completed Universit y of Vaccine (3+ yrs) 00:00:00 [facility] [place] [facility] Influenza Virus 2019-12-24 Completed Universit y of Vaccine (3+ yrs) 00:00:00 [facility] [place] [facility] Influenza Virus 2019-12-24 Completed Universit y of Vaccine (3+ yrs) 00:00:00 [facility] [place] [facility] Influenza Virus 2019-12-24 Completed Universit y of Vaccine (3+ yrs) 00:00:00 [facility] Influenza Virus 2019-12-24 Completed [facility] Vaccine (3+ yrs) 00:00:00 [facility] Influenza Virus 2019-12-24 Completed [facility] Vaccine (3+ yrs) 00:00:00 [facility] Influenza Virus 2019-12-24 Completed [facility] Vaccine (3+ yrs) 00:00:00 [facility] Influenza Virus 2019-12-24 Completed [facility] Vaccine (3+ yrs) 00:00:00 [facility] Influenza Virus 2019-12-24 Completed [facility] Vaccine (3+ yrs) 00:00:00 [facility] Influenza Virus 2019-12-24 Completed [facility] Vaccine (3+ yrs) 00:00:00 [facility] Influenza Virus 2019-12-24 Completed [facility] Vaccine (3+ yrs) 00:00:00 [facility] Influenza Virus 2019-12-24 Completed [facility] Vaccine (3+ yrs) 00:00:00 [facility] Influenza Virus 2019-12-24 Completed [facility] Vaccine (3+ yrs) 00:00:00 [facility] Influenza Virus 2019-12-24 Completed [facility] Vaccine (3+ yrs) 00:00:00 [facility] Influenza Virus 2019-12-24 Completed [facility] Vaccine (3+ yrs) 00:00:00 [facility] Influenza Virus 2019-12-24 Completed [facility] Vaccine (3+ yrs) 00:00:00 [facility] Influenza Virus 2019-12-24 Completed [facility] Vaccine (3+ yrs) 00:00:00 [facility] Influenza Virus 2019-12-24 Completed [facility] Vaccine (3+ yrs) 00:00:00 [facility] Influenza Virus 2019-12-24 Completed [facility] Vaccine (3+ yrs) 00:00:00 [facility] Influenza Virus 2019-12-24 Completed [facility] Vaccine (3+ yrs) 00:00:00 [facility] Influenza Virus 2019-12-24 Completed [facility] Vaccine (3+ yrs) 00:00:00 [facility] Influenza Virus 2019-12-24 Completed [facility] Vaccine (3+ yrs) 00:00:00 [facility] Influenza Virus 2019-12-24 Completed [facility] Vaccine (3+ yrs) 00:00:00 [facility] Influenza Virus 2019-12-24 Completed [facility] Vaccine (3+ yrs) 00:00:00 [facility] Influenza Virus 2019-12-24 Completed [facility] Vaccine (3+ yrs) 00:00:00 [facility] Influenza Virus 2019-12-24 Completed [facility] Vaccine (3+ yrs) 00:00:00 [facility] Influenza Virus 2019-12-24 Completed [facility] Vaccine (3+ yrs) 00:00:00 [facility] Influenza Virus 2019-11-26 Completed [facility] Vaccine (3+ yrs) 00:00:00 [facility] Influenza Virus 2019-11-26 Completed [facility] Vaccine (3+ yrs) 00:00:00 [facility] Influenza Virus 2019-11-26 Completed [facility] Vaccine (3+ yrs) 00:00:00 [facility] Influenza Virus 2019-11-26 Completed [facility] Vaccine (3+ yrs) 00:00:00 [facility] Influenza Virus 2019-11-26 Completed [facility] Vaccine (3+ yrs) 00:00:00 [facility] Influenza Virus 2019-11-26 Completed [facility] Vaccine (3+ yrs) 00:00:00 [facility] Influenza Virus 2019-11-26 Completed [facility] Vaccine (3+ yrs) 00:00:00 [facility] Influenza Virus 2019-11-26 Completed [facility] Vaccine (3+ yrs) 00:00:00 [facility] Influenza Virus 2019-11-26 Completed [facility] Vaccine (3+ yrs) 00:00:00 [facility] Influenza Virus 2019-11-26 Completed [facility] Vaccine (3+ yrs) 00:00:00 [facility] Influenza Virus 2019-11-26 Completed [facility] Vaccine (3+ yrs) 00:00:00 [facility] Influenza Virus 2019-11-26 Completed [facility] Vaccine (3+ yrs) 00:00:00 [facility] Influenza Virus 2019-11-26 Completed [facility] Vaccine (3+ yrs) 00:00:00 [facility] Influenza Virus 2019-11-26 Completed [facility] Vaccine (3+ yrs) 00:00:00 [facility] Influenza Virus 2019-11-26 Completed [facility] Vaccine (3+ yrs) 00:00:00 [facility] Influenza Virus 2019-11-26 Completed [facility] Vaccine (3+ yrs) 00:00:00 [facility] Influenza Virus 2019-11-26 Completed [facility] Vaccine (3+ yrs) 00:00:00 [facility] Influenza Virus 2019-11-26 Completed [facility] Vaccine (3+ yrs) 00:00:00 [facility] Influenza Virus 2019-11-26 Completed [facility] Vaccine (3+ yrs) 00:00:00 [facility] Influenza Virus 2019-11-26 Completed [facility] Vaccine (3+ yrs) 00:00:00 [facility] Influenza Virus 2019-11-26 Completed [facility] Vaccine (3+ yrs) 00:00:00 [facility] Influenza Virus 2019-11-26 Completed [facility] Vaccine (3+ yrs) 00:00:00 [facility] Influenza Virus 2019-11-26 Completed [facility] Vaccine (3+ yrs) 00:00:00 [facility] Influenza Virus 2019-11-26 Completed [facility] Vaccine (3+ yrs) 00:00:00 [facility] Influenza Virus 2019-11-26 Completed [facility] Vaccine (3+ yrs) 00:00:00 [facility] Influenza Virus 2019-11-26 Completed [facility] Vaccine (3+ yrs) 00:00:00 [facility] Influenza Virus 2019-11-26 Completed [facility] Vaccine (3+ yrs) 00:00:00 [facility] Influenza Virus 2019-11-26 Completed [facility] Vaccine (3+ yrs) 00:00:00 [facility] Influenza Virus 2019-11-26 Completed [facility] Vaccine (3+ yrs) 00:00:00 [facility] Influenza Virus 2019-11-26 Completed [facility] Vaccine (3+ yrs) 00:00:00 [facility] Influenza Virus 2019-11-26 Completed [facility] Vaccine (3+ yrs) 00:00:00 [facility] Influenza Virus 2019-11-26 Completed [facility] Vaccine (3+ yrs) 00:00:00 [facility] Influenza Virus 2019-11-26 Completed [facility] Vaccine (3+ yrs) 00:00:00 [facility] Influenza Virus 2019-11-26 Completed [facility] Vaccine (3+ yrs) 00:00:00 [facility] Influenza Virus 2019-11-26 Completed [facility] Vaccine (3+ yrs) 00:00:00 [facility] Influenza Virus 2019-11-26 Completed [facility] Vaccine (3+ yrs) 00:00:00 [facility] Influenza Virus 2019-11-26 Completed [facility] Vaccine (3+ yrs) 00:00:00 [facility] Influenza Virus 2019-11-26 Completed [facility] Vaccine (3+ yrs) 00:00:00 [facility] Influenza Virus 2019-11-26 Completed [facility] Vaccine (3+ yrs) 00:00:00 [facility] Influenza Virus 2019-11-26 Completed [facility] Vaccine (3+ yrs) 00:00:00 [facility] Influenza Virus 2019-11-26 Completed [facility] Vaccine (3+ yrs) 00:00:00 [facility] Influenza Virus 2019-11-26 Completed [facility] Vaccine (3+ yrs) 00:00:00 [facility] Influenza Virus 2019-11-26 Completed [facility] Vaccine (3+ yrs) 00:00:00 [facility] Influenza Virus 2019-11-26 Completed [facility] Vaccine (3+ yrs) 00:00:00 [facility] Influenza Virus 2019-11-26 Completed [facility] Vaccine (3+ yrs) 00:00:00 [facility] Influenza Virus 2019-11-26 Completed [facility] Vaccine (3+ yrs) 00:00:00 [facility] Influenza Virus 2019-11-26 Completed [facility] Vaccine (3+ yrs) 00:00:00 [facility] Influenza Virus 2019-11-26 Completed [facility] Vaccine (3+ yrs) 00:00:00 [facility] Influenza Virus 2019-11-26 Completed [facility] Vaccine (3+ yrs) 00:00:00 [facility] Influenza Virus 2019-11-26 Completed [facility] Vaccine (3+ yrs) 00:00:00 [facility] Influenza Virus 2019-11-26 Completed [facility] Vaccine (3+ yrs) 00:00:00 [facility] Influenza Virus 2019-11-26 Completed [facility] Vaccine (3+ yrs) 00:00:00 [facility] Influenza Virus 2019-11-26 Completed [facility] Vaccine (3+ yrs) 00:00:00 [facility] Influenza Virus 2019-11-26 Completed [facility] Vaccine (3+ yrs) 00:00:00 [facility] Influenza Virus 2019-11-26 Completed [facility] Vaccine (3+ yrs) 00:00:00 [facility] Influenza Virus 2019-11-26 Completed [facility] Vaccine (3+ yrs) 00:00:00 [facility] Influenza Virus 2019-11-26 Completed [facility] Vaccine (3+ yrs) 00:00:00 [facility] Influenza Virus 2019-11-26 Completed [facility] Vaccine (3+ yrs) 00:00:00 [facility] Influenza Virus 2019-11-26 Completed [facility] Vaccine (3+ yrs) 00:00:00 [facility] Influenza Virus 2019-11-26 Completed [facility] Vaccine (3+ yrs) 00:00:00 [facility] Influenza Virus 2019-11-26 Completed [facility] Vaccine (3+ yrs) 00:00:00 [facility] Influenza Virus 2019-11-26 Completed [facility] Vaccine (3+ yrs) 00:00:00 [facility] Influenza Virus 2019-11-26 Completed [facility] Vaccine (3+ yrs) 00:00:00 [facility] Influenza Virus 2019-11-26 Completed [facility] Vaccine (3+ yrs) 00:00:00 [facility] Influenza Virus 2019-11-26 Completed [facility] Vaccine (3+ yrs) 00:00:00 [facility] Influenza Virus 2019-11-26 Completed [facility] Vaccine (3+ yrs) 00:00:00 [facility] Influenza Virus 2019-11-26 Completed [facility] Vaccine (3+ yrs) 00:00:00 [facility] Influenza Virus 2019-11-26 Completed [facility] Vaccine (3+ yrs) 00:00:00 [facility] Influenza Virus 2019-11-26 Completed [facility] Vaccine (3+ yrs) 00:00:00 [facility] Influenza Virus 2019-11-26 Completed [facility] Vaccine (3+ yrs) 00:00:00 [facility] Influenza Virus 2019-11-26 Completed [facility] Vaccine (3+ yrs) 00:00:00 [facility] Influenza Virus 2019-11-26 Completed [facility] Vaccine (3+ yrs) 00:00:00 [facility] Influenza Virus 2019-11-26 Completed [facility] Vaccine (3+ yrs) 00:00:00 [facility] Influenza Virus 2019-11-26 Completed [facility] Vaccine (3+ yrs) 00:00:00 [facility] Influenza Virus 2019-11-26 Completed [facility] Vaccine (3+ yrs) 00:00:00 [facility] Influenza Virus 2019-11-26 Completed [facility] Vaccine (3+ yrs) 00:00:00 [facility] Influenza Virus 2019-11-26 Completed [facility] Vaccine (3+ yrs) 00:00:00 [facility] Influenza Virus 2019-11-26 Completed [facility] Vaccine (3+ yrs) 00:00:00 [facility] Influenza Virus 2019-11-26 Completed [facility] Vaccine (3+ yrs) 00:00:00 [facility] Twinrix (hep a/hep 2019-05-23 Completed Univer sity of b) 00:00:00 [facility] Twinrix (hep a/hep 2019-05-23 Completed Univer sity of b) 00:00:00 [facility] Twinrix (hep a/hep 2019-05-23 Completed Univer sity of b) 00:00:00 [facility] Twinrix (hep a/hep 2019-05-23 Completed Univer sity of b) 00:00:00 [facility] Twinrix (hep a/hep 2019-05-23 Completed Univer sity of b) 00:00:00 [facility] Twinrix (hep a/hep 2019-05-23 Completed Univer sity of b) 00:00:00 [facility] Twinrix (hep a/hep 2019-05-23 Completed Univer sity of b) 00:00:00 [facility] Twinrix (hep a/hep 2019-05-23 Completed Univer sity of b) 00:00:00 [facility] Twinrix (hep a/hep 2019-05-23 Completed Univer sity of b) 00:00:00 [facility] Twinrix (hep a/hep 2019-05-23 Completed Univer sity of b) 00:00:00 [facility] Twinrix (hep a/hep 2019-05-23 Completed Univer sity of b) 00:00:00 [facility] Twin[facility] (hep a/hep 2019-05-23 Completed Univer sity of b) 00:00:00 [facility] Twinrix (hep a/hep 2019-05-23 Completed Univer sity of b) 00:00:00 [facility] Twinrix (hep a/hep 2019-05-23 Completed Univer sity of b) 00:00:00 [facility] Twinrix (hep a/hep 2019-05-23 Completed Univer sity of b) 00:00:00 [facility] Twinrix (hep a/hep 2019-05-23 Completed Univer sity of b) 00:00:00 [facility] Twinrix (hep a/hep 2019-05-23 Completed Univer sity of b) 00:00:00 [facility] Twinrix (hep a/hep 2019-05-23 Completed Univer sity of b) 00:00:00 [facility] Twinrix (hep a/hep 2019-05-23 Completed Univer sity of b) 00:00:00 [facility] Twinrix (hep a/hep 2019-05-23 Completed Univer sity of b) 00:00:00 [facility] Twinrix (hep a/hep 2019-05-23 Completed Univer sity of b) 00:00:00 [facility] Twinrix (hep a/hep 2019-05-23 Completed Univer sity of b) 00:00:00 [facility] Twinrix (hep a/hep 2019-05-23 Completed Univer sity of b) 00:00:00 [facility] Twinrix (hep a/hep 2019-05-23 Completed Univer sity of b) 00:00:00 [facility] Twinrix (hep a/hep 2019-05-23 Completed Univer sity of b) 00:00:00 [facility] Twinrix (hep a/hep 2019-05-23 Completed Univer sity of b) 00:00:00 [facility] Twinrix (hep a/hep 2019-05-23 Completed Univer sity of b) 00:00:00 [facility] Twinrix (hep a/hep 2019-05-23 Completed Univer sity of b) 00:00:00 [facility] Twinrix (hep a/hep 2019-05-23 Completed Univer sity of b) 00:00:00 [facility] Twinrix (hep a/hep 2019-05-23 Completed Univer sity of b) 00:00:00 [facility] Twinrix (hep a/hep 2019-05-23 Completed Univer sity of b) 00:00:00 [facility] Twin[facility] (hep a/hep 2019-05-23 Completed [facility]iver sity of b) 00:00:00 [facility] Twin[facility] (hep a/hep 2019-05-23 Completed Univer sity of b) 00:00:00 [facility] Twinrix (hep a/hep 2019-05-23 Completed Univer sity of b) 00:00:00 [facility] Twinrix (hep a/hep 2019-05-23 Completed Univer sity of b) 00:00:00 [facility] Twinrix (hep a/hep 2019-05-23 Completed Univer sity of b) 00:00:00 [facility] Twinrix (hep a/hep 2019-05-23 Completed Univer sity of b) 00:00:00 [facility] Twinrix (hep a/hep 2019-05-23 Completed Univer sity of b) 00:00:00 [facility] Twinrix (hep a/hep 2019-05-23 Completed Univer sity of b) 00:00:00 [facility] Twinrix (hep a/hep 2019-05-23 Completed Univer sity of b) 00:00:00 [facility] Twin[facility] (hep a/hep 2019-05-23 Completed Univer sity of b) 00:00:00 [facility] (hep a/hep 2019-05-23 Completed [...] 2019-05-23 Completed Univer sity of b) 00:00:00 [facility] Twinrix (hep a/hep 2019-05-23 Completed Univer sity of b) 00:00:00 [facility] Twinrix (hep a/hep 2019-05-23 Completed Univer sity of b) 00:00:00 [facility] Twinrix (hep a/hep 2019-05-23 Completed Univer sity of b) 00:00:00 [facility] Twin[facility] (hep a/hep 2019-05-23 Completed Univer sity of b) 00:00:00 [facility] Twin[facility] (hep a/hep 2019-05-23 Completed Univer sity of b) 00:00:00 [facility] Twinrix (hep a/hep 2019-05-23 Completed Univer sity of b) 00:00:00 [facility] Twinrix (hep a/hep 2019-05-23 Completed Univer sity of b) 00:00:00 [facility] Twinrix (hep a/hep 2019-05-23 Completed Univer sity of b) 00:00:00 [facility] Twinrix (hep a/hep 2019-05-23 Completed Univer sity of b) 00:00:00 [facility] Twinrix (hep a/hep 2019-05-23 Completed Univer sity of b) 00:00:00 [facility] Twinrix (hep a/hep 2019-05-23 Completed Univer sity of b) 00:00:00 [facility] Twinrix (hep a/hep 2019-05-23 Completed Univer sity of b) 00:00:00 [facility] Twinrix (hep a/hep 2019-05-23 Completed Univer sity of b) 00:00:00 [facility] Twinrix (hep a/hep 2019-05-23 Completed Univer sity of b) 00:00:00 [facility] Twinrix (hep a/hep 2019-05-23 Completed Univer sity of b) 00:00:00 [facility] Twin[facility] (hep a/hep 2019-05-23 Completed Univer sity of b) 00:00:00 [facility] Twinrix (hep a/hep 2019-05-23 Completed Univer sity of b) 00:00:00 [facility] Twinrix (hep a/hep 2019-05-23 Completed Univer sity of b) 00:00:00 [facility] Twinrix (hep a/hep 2019-05-23 Completed Univer sity of b) 00:00:00 [facility] Twinrix (hep a/hep 2019-05-23 Completed Univer sity of b) 00:00:00 [facility] Twinrix (hep a/hep 2019-05-23 Completed Univer sity of b) 00:00:00 [facility] Twinrix (hep a/hep 2019-05-23 Completed Univer sity of b) 00:00:00 [facility] Twinrix (hep a/hep 2019-05-23 Completed Univer sity of b) 00:00:00 [facility] Twinrix (hep a/hep 2019-05-23 Completed Univer sity of b) 00:00:00 [facility] Twinrix (hep a/hep 2019-05-23 Completed Univer sity of b) 00:00:00 [facility] Twinrix (hep a/hep 2019-05-23 Completed Univer sity of b) 00:00:00 [facility] Twinrix (hep a/hep 2019-05-23 Completed Univer sity of b) 00:00:00 [facility] Twinrix (hep a/hep 2019-05-23 Completed Univer sity of b) 00:00:00 [facility] Twin[facility] (hep a/hep 2019-05-23 Completed Univer sity of b) 00:00:00 [facility] Twinrix (hep a/hep 2019-05-23 Completed Univer sity of b) 00:00:00 [facility] Twinrix (hep a/hep 2019-05-23 Completed Univer sity of b) 00:00:00 [facility] Twinrix (hep a/hep 2019-05-23 Completed Univer sity of b) 00:00:00 [facility] Pneumococcal 13 2018-12-28 Completed [facility] y [...] Completed [facility] of Conjugate, PCV13 00:00:00 [facility] (Prevnar 13) [place] Influenza Virus 2018-11-25 Completed [facility] y of Vaccine (3+ yrs) 00:00:00 [facility] Influenza High Dose 2018-11-25 Completed Unive rsity of 00:00:00 [facility] Influenza Virus 2018-11-25 Completed [facility] of Vaccine (3+ yrs) 00:00:00 [facility] Influenza High Dose 2018-11-25 Completed Unive rsity of 00:00:00 [facility] Influenza Virus 2018-11-25 Completed [facility] of Vaccine (3+ yrs) 00:00:00 [facility] Influenza High Dose 2018-11-25 Completed Unive rsity of 00:00:00 [facility] Influenza Virus 2018-11-25 Completed [facility] of Vaccine (3+ yrs) 00:00:00 [facility] Influenza High Dose 2018-11-25 Completed Unive rsity of 00:00:00 [facility] Influenza Virus 2018-11-25 Completed [facility] of Vaccine (3+ yrs) 00:00:00 [facility] Influenza High Dose 2018-11-25 Completed Unive rsity of 00:00:00 [facility] Influenza Virus 2018-11-25 Completed [facility] of Vaccine (3+ yrs) 00:00:00 [facility] Influenza High Dose 2018-11-25 Completed Unive rsity of 00:00:00 [facility] Influenza Virus 2018-11-25 Completed [facility] of Vaccine (3+ yrs) 00:00:00 [facility] Influenza High Dose 2018-11-25 Completed Unive rsity of 00:00:00 [facility] Influenza Virus 2018-11-25 Completed [facility] of Vaccine (3+ yrs) 00:00:00 [facility] Influenza High Dose 2018-11-25 Completed Unive rsity of 00:00:00 [facility] Influenza Virus 2018-11-25 Completed [facility] of Vaccine (3+ yrs) 00:00:00 [facility] Influenza High Dose 2018-11-25 Completed Unive rsity of 00:00:00 [facility] Influenza Virus 2018-11-25 Completed [facility]rs) 00:[facility]00 [facility] Influenza High Dose 2018-11-25 Completed [facility] 00[facility]00:00 [facility] Influenza Virus 2018-11-25 Completed [facility] Vaccine (3+ yrs) 00:00:00 [facility] Influenza High Dose 2018-11-25 Completed [facility] 00:00:00 [facility] Influenza Virus 2018-11-25 Completed [facility] Vaccine (3+ yrs) 00:00:00 [facility] Influenza High Dose 2018-11-25 Completed [facility] 00:00:00 [facility] Influenza Virus 2018-11-25 Completed [facility] Vaccine (3+ yrs) 00:00:00 [facility] Influenza High Dose 2018-11-25 Completed [facility] 00:00:00 [facility] Influenza Virus 2018-11-25 Completed [facility] Vaccine (3+ yrs) 00:00:00 [facility] Influenza High Dose 2018-11-25 Completed [facility] 00:00:00 [facility] Influenza Virus 2018-11-25 Completed [facility] Vaccine (3+ yrs) 00:00:00 [facility] Influenza High Dose 2018-11-25 Completed [facility] 00:00:00 [facility] Influenza Virus 2018-11-25 Completed [facility] Vaccine (3+ yrs) 00:00:00 [facility] Influenza High Dose 2018-11-25 Completed [facility] 00:00:00 [facility] Influenza Virus 2018-11-25 Completed [facility] Vaccine (3+ yrs) 00:00:00 [facility] Influenza High Dose 2018-11-25 Completed [facility] 00:00:00 [facility] Influenza Virus 2018-11-25 Completed [facility] Vaccine (3+ yrs) 00:00:00 [facility] Influenza High Dose 2018-11-25 Completed [facility] 00:00:00 [facility] Influenza Virus 2018-11-25 Completed [facility] Vaccine (3+ yrs) 00:00:00 [facility] Influenza High Dose 2018-11-25 Completed [facility] 00:00:00 [facility] Influenza Virus 2018-11-25 Completed [facility] Vaccine (3+ yrs) 00:00:00 [facility] Influenza High Dose 2018-11-25 Completed [facility] 00:00:00 [facility] Influenza Virus 2018-11-25 Completed [facility] Vaccine (3+ yrs) 00:00:00 [facility] Influenza High Dose 2018-11-25 Completed [facility] 00:00:00 [facility] Influenza Virus 2018-11-25 Completed [facility] Vaccine (3+ yrs) 00:00:00 [facility] Influenza High Dose 2018-11-25 Completed [facility] 00:00:00 [facility] Influenza Virus 2018-11-25 Completed [facility] Vaccine (3+ yrs) 00:00:00 [facility] Influenza High Dose 2018-11-25 Completed [facility] 00:00:00 [facility] Influenza Virus 2018-11-25 Completed [facility] Vaccine (3+ yrs) 00:00:00 [facility] Influenza High Dose 2018-11-25 Completed [facility] 00:00:00 [facility] Influenza Virus 2018-11-25 Completed [facility] Vaccine (3+ yrs) 00:00:00 [facility] Influenza High Dose 2018-11-25 Completed [facility] 00:00:00 [facility] Influenza Virus 2018-11-25 Completed [facility] Vaccine (3+ yrs) 00:00:00 [facility] Influenza High Dose 2018-11-25 Completed [facility] 00:00:00 [facility] Influenza Virus 2018-11-25 Completed [facility] Vaccine (3+ yrs) 00:00:00 [facility] Influenza High Dose 2018-11-25 Completed [facility] 00:00:00 [facility] Influenza Virus 2018-11-25 Completed [facility] Vaccine (3+ yrs) 00:00:00 [facility] Influenza High Dose 2018-11-25 Completed [facility] 00:00:00 [facility] Influenza Virus 2018-11-25 Completed [facility] Vaccine (3+ yrs) 00:00:00 [facility] Influenza High Dose 2018-11-25 Completed [facility] 00:00:00 [facility] Influenza Virus 2018-11-25 Completed [facility] Vaccine (3+ yrs) 00:00:00 [facility] Influenza High Dose 2018-11-25 Completed [facility] 00:00:00 [facility] Influenza Virus 2018-11-25 Completed [facility] Vaccine (3+ yrs) 00:00:00 [facility] Influenza High Dose 2018-11-25 Completed [facility] 00:00:00 [facility] Influenza Virus 2018-11-25 Completed [facility] Vaccine (3+ yrs) 00:00:00 [facility] Influenza High Dose 2018-11-25 Completed [facility] 00:00:00 [facility] Influenza Virus 2018-11-25 Completed [facility] Vaccine (3+ yrs) 00:00:00 [facility] Influenza High Dose 2018-11-25 Completed [facility] 00:00:00 [facility] Influenza Virus 2018-11-25 Completed [facility] Vaccine (3+ yrs) 00:00:00 [facility] Influenza High Dose 2018-11-25 Completed [facility] 00:00:00 [facility] Influenza Virus 2018-11-25 Completed [facility] Vaccine (3+ yrs) 00:00:00 [facility] Influenza High Dose 2018-11-25 Completed [facility] 00:00:00 [facility] Influenza Virus 2018-11-25 Completed [facility] Vaccine (3+ yrs) 00:00:00 [facility] Influenza High Dose 2018-11-25 Completed [facility] 00:00:00 [facility] Influenza Virus 2018-11-25 Completed [facility] Vaccine (3+ yrs) 00:00:00 [facility] Influenza High Dose 2018-11-25 Completed [facility] 00:00:00 [facility] Influenza Virus 2018-11-25 Completed [facility] Vaccine (3+ yrs) 00:00:00 [facility] Influenza High Dose 2018-11-25 Completed [facility] 00:00:00 [facility] Influenza Virus 2018-11-25 Completed [facility] Vaccine (3+ yrs) 00:00:00 [facility] Influenza High Dose 2018-11-25 Completed [facility] 00:00:00 [facility] Influenza Virus 2018-11-25 Completed [facility] Vaccine (3+ yrs) 00:00:00 [facility] Influenza High Dose 2018-11-25 Completed [facility] 00:00:00 [facility] Influenza Virus 2018-11-25 Completed [facility] Vaccine (3+ yrs) 00:00:00 [facility] Influenza High Dose 2018-11-25 Completed [facility] 00:00:00 [facility] Influenza Virus 2018-11-25 Completed [facility] Vaccine (3+ yrs) 00:00:00 [facility] Influenza High Dose 2018-11-25 Completed [facility] 00:00:00 [facility] Influenza Virus 2018-11-25 Completed [facility] Vaccine (3+ yrs) 00:00:00 [facility] Influenza High Dose 2018-11-25 Completed [facility] 00:00:00 [facility] Influenza Virus 2018-11-25 Completed [facility] Vaccine (3+ yrs) 00:00:00 [facility] Influenza High Dose 2018-11-25 Completed [facility] 00:00:00 [facility] Influenza Virus 2018-11-25 Completed [facility] Vaccine (3+ yrs) 00:00:00 [facility] Influenza High Dose 2018-11-25 Completed [facility] 00:00:00 [facility] Influenza Virus 2018-11-25 Completed [facility] Vaccine (3+ yrs) 00:00:00 [facility] Influenza High Dose 2018-11-25 Completed [facility] 00:00:00 [facility] Influenza Virus 2018-11-25 Completed [facility] Vaccine (3+ yrs) 00:00:00 [facility] Influenza High Dose 2018-11-25 Completed [facility] 00:00:00 [facility] Influenza Virus 2018-11-25 Completed [facility] Vaccine (3+ yrs) 00:00:00 [facility] Influenza High Dose 2018-11-25 Completed [facility] 00:00:00 [facility] Influenza Virus 2018-11-25 Completed [facility] Vaccine (3+ yrs) 00:00:00 [facility] Influenza High Dose 2018-11-25 Completed [facility] 00:00:00 [facility] Influenza Virus 2018-11-25 Completed [facility] Vaccine (3+ yrs) 00:00:00 [facility] Influenza High Dose 2018-11-25 Completed [facility] 00:00:00 [facility] Influenza Virus 2018-11-25 Completed [facility] Vaccine (3+ yrs) 00:00:00 [facility] Influenza High Dose 2018-11-25 Completed [facility] 00:00:00 [facility] Influenza Virus 2018-11-25 Completed [facility] Vaccine (3+ yrs) 00:00:00 [facility] Influenza High Dose 2018-11-25 Completed [facility] 00:00:00 [facility] Influenza Virus 2018-11-25 Completed [facility] Vaccine (3+ yrs) 00:00:00 [facility] Influenza High Dose 2018-11-25 Completed [facility] 00:00:00 [facility] Influenza Virus 2018-11-25 Completed [facility] Vaccine (3+ yrs) 00:00:00 [facility] Influenza High Dose 2018-11-25 Completed [facility] 00:00:00 [facility] Influenza Virus 2018-11-25 Completed [facility] Vaccine (3+ yrs) 00:00:00 [facility] Influenza High Dose 2018-11-25 Completed [facility] 00:00:00 [facility] Influenza Virus 2018-11-25 Completed [facility] Vaccine (3+ yrs) 00:00:00 [facility] Influenza High Dose 2018-11-25 Completed [facility] 00:00:00 [facility] Influenza Virus 2018-11-25 Completed [facility] Vaccine (3+ yrs) 00:00:00 [facility] Influenza High Dose 2018-11-25 Completed [facility] 00:00:00 [facility] Influenza Virus 2018-11-25 Completed [facility] Vaccine (3+ yrs) 00:00:00 [facility] Influenza High Dose 2018-11-25 Completed [facility] 00:00:00 [facility] Influenza Virus 2018-11-25 Completed [facility] Vaccine (3+ yrs) 00:00:00 [facility] Influenza High Dose 2018-11-25 Completed [facility] 00:00:00 [facility] Influenza Virus 2018-11-25 Completed [facility] Vaccine (3+ yrs) 00:00:00 [facility] Influenza High Dose 2018-11-25 Completed [facility] 00:00:00 [facility] Influenza Virus 2018-11-25 Completed [facility] Vaccine (3+ yrs) 00:00:00 [facility] Influenza High Dose 2018-11-25 Completed [facility] 00:00:00 [facility] Influenza Virus 2018-11-25 Completed [facility] Vaccine (3+ yrs) 00:00:00 [facility] Influenza High Dose 2018-11-25 Completed [facility] 00:00:00 [facility] Influenza Virus 2018-11-25 Completed [facility] Vaccine (3+ yrs) 00:00:00 [facility] Influenza High Dose 2018-11-25 Completed [facility] 00:00:00 [facility] Influenza Virus 2018-11-25 Completed [facility] Vaccine (3+ yrs) 00:00:00 [facility] Influenza High Dose 2018-11-25 Completed [facility] 00:00:00 [facility] Influenza Virus 2018-11-25 Completed [facility] Vaccine (3+ yrs) 00:00:00 [facility] Influenza High Dose 2018-11-25 Completed [facility] 00:00:00 [facility] Influenza Virus 2018-11-25 Completed [facility] Vaccine (3+ yrs) 00:00:00 [facility] Influenza High Dose 2018-11-25 Completed [facility] 00:00:00 [facility] Influenza Virus 2018-11-25 Completed [facility] Vaccine (3+ yrs) 00:00:00 [facility] Influenza High Dose 2018-11-25 Completed [facility] 00:00:00 [facility] Influenza Virus 2018-11-25 Completed [facility] Vaccine (3+ yrs) 00:00:00 [facility] Influenza High Dose 2018-11-25 Completed [facility] 00:00:00 [facility] Influenza Virus 2018-11-25 Completed [facility] Vaccine (3+ yrs) 00:00:00 [facility] Influenza High Dose 2018-11-25 Completed [facility] 00:00:00 [facility] Influenza Virus 2018-11-25 Completed [facility] Vaccine (3+ yrs) 00:00:00 [facility] Influenza High Dose 2018-11-25 Completed [facility] 00:00:00 [facility] Influenza Virus 2018-11-25 Completed [facility] Vaccine (3+ yrs) 00:00:00 [facility] Influenza High Dose 2018-11-25 Completed [facility] 00:00:00 [facility] Influenza Virus 2018-11-25 Completed [facility] Vaccine (3+ yrs) 00:00:00 [facility] Influenza High Dose 2018-11-25 Completed [facility] 00:00:00 [facility] Influenza Virus 2018-11-25 Completed [facility] Vaccine (3+ yrs) 00:00:00 [facility] Influenza High Dose 2018-11-25 Completed [facility] 00:00:00 [facility] Influenza Virus 2018-11-25 Completed [facility] Vaccine (3+ yrs) 00:00:00 [facility] Influenza High Dose 2018-11-25 Completed [facility] 00:00:00 [facility] Influenza Virus 2018-11-25 Completed [facility] Vaccine (3+ yrs) 00:00:00 [facility] Influenza High Dose 2018-11-25 Completed [facility] 00:00:00 [facility] Influenza Virus 2018-11-25 Completed [facility] Vaccine (3+ yrs) 00:00:00 [facility] Influenza High Dose 2018-11-25 Completed [facility] 00:00:00 [facility] Influenza Virus 2018-11-25 Completed [facility] Vaccine (3+ yrs) 00:00:00 [facility] Influenza High Dose 2018-11-25 Completed [facility] 00:00:00 [facility] Influenza Virus 2018-11-25 Completed [facility] Vaccine (3+ yrs) 00:00:00 [facility] Influenza High Dose 2018-11-25 Completed [facility] 00:00:00 [facility] Influenza Virus 2018-11-25 Completed [facility] Vaccine (3+ yrs) 00:00:00 [facility] Influenza High Dose 2018-11-25 Completed [facility] 00:00:00 [facility] Influenza Virus 2018-11-22 Completed [facility] Vaccine (3+ yrs) 00:00:00 [facility] Influenza Virus 2018-11-22 Completed [facility] Vaccine (3+ yrs) 00:00:00 [facility] Influenza Virus 2018-11-22 Completed [facility] Vaccine (3+ yrs) 00:00:00 [facility] Influenza Virus 2018-11-22 Completed [facility] Vaccine (3+ yrs) 00:00:00 [facility] Influenza Virus 2018-11-22 Completed [facility] Vaccine (3+ yrs) 00:00:00 [facility] Influenza Virus 2018-11-22 Completed [facility] Vaccine (3+ yrs) 00:00:00 [facility] Influenza Virus 2018-11-22 Completed [facility] Vaccine (3+ yrs) 00:00:00 [facility] Influenza Virus 2018-11-22 Completed [facility] Vaccine (3+ yrs) 00:00:00 [facility] Influenza Virus 2018-11-22 Completed [facility] Vaccine (3+ yrs) 00:00:00 [facility] Influenza Virus 2018-11-22 Completed [facility] Vaccine (3+ yrs) 00:00:00 [facility] Influenza Virus 2018-11-22 Completed [facility] Vaccine (3+ yrs) 00:00:00 [facility] Influenza Virus 2018-11-22 Completed [facility] Vaccine (3+ yrs) 00:00:00 [facility] Influenza Virus 2018-11-22 Completed [facility] Vaccine (3+ yrs) 00:00:00 [facility] Influenza Virus 2018-11-22 Completed [facility] Vaccine (3+ yrs) 00:00:00 [facility] Influenza Virus 2018-11-22 Completed [facility] Vaccine (3+ yrs) 00:00:00 [facility] Influenza Virus 2018-11-22 Completed [facility] Vaccine (3+ yrs) 00:00:00 [facility] Influenza Virus 2018-11-22 Completed [facility] Vaccine (3+ yrs) 00:00:00 [facility] Influenza Virus 2018-11-22 Completed [facility] Vaccine (3+ yrs) 00:00:00 [facility] Influenza Virus 2018-11-22 Completed [facility] Vaccine (3+ yrs) 00:00:00 [facility] Influenza Virus 2018-11-22 Completed [facility] Vaccine (3+ yrs) 00:00:00 [facility] Influenza Virus 2018-11-22 Completed [facility] Vaccine (3+ yrs) 00:00:00 [facility] Influenza Virus 2018-11-22 Completed [facility] Vaccine (3+ yrs) 00:00:00 [facility] Influenza Virus 2018-11-22 Completed [facility] Vaccine (3+ yrs) 00:00:00 [facility] Influenza Virus 2018-11-22 Completed [facility] Vaccine (3+ yrs) 00:00:00 [facility] Influenza Virus 2018-11-22 Completed [facility] Vaccine (3+ yrs) 00:00:00 [facility] Influenza Virus 2018-11-22 Completed [facility] Vaccine (3+ yrs) 00:00:00 [facility] Influenza Virus 2018-11-22 Completed [facility] Vaccine (3+ yrs) 00:00:00 [facility] Influenza Virus 2018-11-22 Completed [facility] Vaccine (3+ yrs) 00:00:00 [facility] Influenza Virus 2018-11-22 Completed [facility] Vaccine (3+ yrs) 00:00:00 [facility] Influenza Virus 2018-11-22 Completed [facility] Vaccine (3+ yrs) 00:00:00 [facility] Influenza Virus 2018-11-22 Completed [facility] Vaccine (3+ yrs) 00:00:00 [facility] Influenza Virus 2018-11-22 Completed [facility] Vaccine (3+ yrs) 00:00:00 [facility] Influenza Virus 2018-11-22 Completed [facility] Vaccine (3+ yrs) 00:00:00 [facility] Influenza Virus 2018-11-22 Completed [facility] Vaccine (3+ yrs) 00:00:00 [facility] Influenza Virus 2018-11-22 Completed [facility] Vaccine (3+ yrs) 00:00:00 [facility] Influenza Virus 2018-11-22 Completed [facility] Vaccine (3+ yrs) 00:00:00 [facility] Influenza Virus 2018-11-22 Completed [facility] Vaccine (3+ yrs) 00:00:00 [facility] Influenza Virus 2018-11-22 Completed [facility] Vaccine (3+ yrs) 00:00:00 [facility] Influenza Virus 2018-11-22 Completed [facility] Vaccine (3+ yrs) 00:00:00 [facility] Influenza Virus 2018-11-22 Completed [facility] Vaccine (3+ yrs) 00:00:00 [facility] Influenza Virus 2018-11-22 Completed [facility] Vaccine (3+ yrs) 00:00:00 [facility] Influenza Virus 2018-11-22 Completed [facility] Vaccine (3+ yrs) 00:00:00 [facility] Influenza Virus 2018-11-22 Completed [facility] Vaccine (3+ yrs) 00:00:00 [facility] Influenza Virus 2018-11-22 Completed [facility] Vaccine (3+ yrs) 00:00:00 [facility] Influenza Virus 2018-11-22 Completed [facility] Vaccine (3+ yrs) 00:00:00 [facility] Influenza Virus 2018-11-22 Completed [facility] Vaccine (3+ yrs) 00:00:00 [facility] Influenza Virus 2018-11-22 Completed [facility] Vaccine (3+ yrs) 00:00:00 [facility] Influenza Virus 2018-11-22 Completed [facility] Vaccine (3+ yrs) 00:00:00 [facility] Influenza Virus 2018-11-22 Completed [facility] Vaccine (3+ yrs) 00:00:00 [facility] Influenza Virus 2018-11-22 Completed [facility] Vaccine (3+ yrs) 00:00:00 [facility] Influenza Virus 2018-11-22 Completed [facility] Vaccine (3+ yrs) 00:00:00 [facility] Influenza Virus 2018-11-22 Completed [facility]ine (3+ yrs) 00:00:00 [facility] Influenza Virus 2018-11-22 Completed [facility]ine (3+ yrs) 00:00:00 [facility] Influenza Virus 2018-11-22 Completed [facility] Vaccine (3+ yrs) 00:00:00 [facility] Influenza Virus 2018-11-22 Completed [facility] Vaccine (3+ yrs) 00:00:00 [facility] Influenza Virus 2018-11-22 Completed [facility] Vaccine (3+ yrs) 00:00:00 [facility] Influenza Virus 2018-11-22 Completed [facility] Vaccine (3+ yrs) 00:00:00 [facility] Influenza Virus 2018-11-22 Completed [facility] Vaccine (3+ yrs) 00:00:00 [facility] Influenza Virus 2018-11-22 Completed [facility] Vaccine (3+ yrs) 00:00:00 [facility] Influenza Virus 2018-11-22 Completed [facility] Vaccine (3+ yrs) 00:00:00 [facility] Influenza Virus 2018-11-22 Completed [facility] Vaccine (3+ yrs) 00:00:00 [facility] Influenza Virus 2018-11-22 Completed [facility] Vaccine (3+ yrs) 00:00:00 [facility] Influenza Virus 2018-11-22 Completed [facility] Vaccine (3+ yrs) 00:00:00 [facility] Influenza Virus 2018-11-22 Completed [facility] Vaccine (3+ yrs) 00:00:00 [facility] Influenza Virus 2018-11-22 Completed [facility] Vaccine (3+ yrs) 00:00:00 [facility] Influenza Virus 2018-11-22 Completed [facility] Vaccine (3+ yrs) 00:00:00 [facility] Influenza Virus 2018-11-22 Completed [facility] of Vaccine (3+ yrs) 00:00:00 [facility] Influenza Virus 2018-11-22 Completed [facility] Vaccine (3+ yrs) 00:00:00 [facility] Influenza Virus 2018-11-22 Completed [facility] Vaccine (3+ yrs) 00:00:00 [facility] Influenza Virus 2018-11-22 Completed [facility] of Vaccine (3+ yrs) 00:00:00 [facility] Influenza Virus 2018-11-22 Completed [facility] Vaccine (3+ yrs) 00:00:00 [facility] Influenza Virus 2018-11-22 Completed [facility] Vaccine (3+ yrs) 00:00:00 [facility] Influenza Virus 2018-11-22 Completed [facility] Vaccine (3+ yrs) 00:00:00 [facility] Influenza Virus 2018-11-22 Completed [facility] Vaccine (3+ yrs) 00:00:00 [facility] Influenza Virus 2018-11-22 Completed [facility] Vaccine (3+ yrs) 00:00:00 [facility] Influenza Virus 2018-11-22 Completed [facility] Vaccine (3+ yrs) 00:00:00 [facility] Influenza Virus 2018-11-22 Completed [facility] Vaccine (3+ yrs) 00:00:00 [facility] Influenza Virus 2018-11-22 Completed [facility] Vaccine (3+ yrs) 00:00:00 [facility] Influenza Virus 2018-11-22 Completed [facility] Vaccine (3+ yrs) 00:00:00 [facility] Twinrix (hep a/hep 2018-05-23 Completed [facility]iver sity of b) 00:00:00 [facility] Pneumococcal 13 2018-05-23 Completed [facility] of Conjugate, PCV13 00:00:00 [facility] dical (Prevnar 13) Branch Twinrix (hep a/hep 2018-05-23 Completed Univer sity of b) 00:00:00 [facility] Pneumococcal 13 2018-05-23 Completed [facility] of Conjugate, PCV13 00:00:00 [facility] dical (Prevnar 13) Branch Twinrix (hep a/hep 2018-05-23 Completed [facility]iver sity of b) 00:00:00 [facility] Pneumococcal 13 2018-05-23 Completed [facility] of Conjugate, PCV13 00:00:00 [facility] dical (Prevnar 13) Branch Twinrix (hep a/hep 2018-05-23 Completed [facility]iver [facility] of b) 00:00:00 [facility] Pneumococcal 13 2018-05-23 Completed [facility] of Conjugate, PCV13 00:00:00 [facility] dical (Prevnar 13) Branch Twinrix (hep a/hep 2018-05-23 Completed [facility]iver [facility]ity of b) 00:00:00 [facility] Pneumococcal 13 2018-05-23 Completed [facility] of Conjugate, PCV13 00:00:00 [facility] dical (Prevnar 13) Branch Twinrix (hep a/hep 2018-05-23 Completed [facility]iver [facility] of b) 00:00:00 [facility] Pneumococcal 13 2018-05-23 Completed [facility] Conjugate, PCV13 00:00:00 [facility] (Prevnar 13) [facility] Twinrix (hep a/hep 2018-05-23 Completed [facility] of b) 00:00:00 [facility] Pneumococcal 13 2018-05-23 Completed [facility] Conjugate, PCV13 00:00:00 [facility] (Prevnar 13) Branch Twinrix (hep a/hep 2018-05-23 Completed [facility] of b) 00:00:00 [facility] Pneumococcal 13 2018-05-23 Completed [facility] Conjugate, PCV13 00:00:00 [facility] (Prevnar 13) Branch Twinrix (hep a/hep 2018-05-23 Completed [facility] of b) 00:00:00 [facility] Pneumococcal 13 2018-05-23 Completed [facility] Conjugate, PCV13 00:00:00 [facility] (Prevnar 13) Branch Twinrix (hep a/hep 2018-05-23 Completed [facility] of b) 00:00:00 [facility] Pneumococcal 13 2018-05-23 Completed [facility] Conjugate, PCV13 00:00:00 [facility] (Prevnar 13) Branch Twinrix (hep a/hep 2018-05-23 Completed [facility] of b) 00:00:00 [facility] Pneumococcal 13 2018-05-23 Completed [facility] Conjugate, PCV13 00:00:00 [facility] (Prevnar 13) Branch Twinrix (hep a/hep 2018-05-23 Completed [facility] of b) 00:00:00 [facility] Pneumococcal 13 2018-05-23 Completed [facility] Conjugate, PCV13 00:00:00 [facility] (Prevnar 13) Branch Twinrix (hep a/hep 2018-05-23 Completed [facility] of b) 00:00:00 [facility] Pneumococcal 13 2018-05-23 Completed [facility] of Conjugate, PCV13 00:00:00 [facility] (Prevnar 13) Branch Twinrix (hep a/hep 2018-05-23 Completed [facility] of b) 00:00:00 [facility] Pneumococcal 13 2018-05-23 Completed [facility] Conjugate, PCV13 00:00:00 [facility] (Prevnar 13) Branch Twinrix (hep a/hep 2018-05-23 Completed [facility] of b) 00:00:00 [facility] Pneumococcal 13 2018-05-23 Completed [facility] Conjugate, PCV13 00:00:00 [facility] (Prevnar 13) Branch Twinrix (hep a/hep 2018-05-23 Completed [facility] of b) 00:00:00 [facility] Pneumococcal 13 2018-05-23 Completed [facility] Conjugate, PCV13 00:00:00 [facility] (Prevnar 13) Branch Twinrix (hep a/hep 2018-05-23 Completed [facility] of b) 00:00:00 [facility] Pneumococcal 13 2018-05-23 Completed [facility] Conjugate, PCV13 00:00:00 [facility] (Prevnar 13) Branch Twinrix (hep a/hep 2018-05-23 Completed [facility] of b) 00:00:00 [facility] Pneumococcal 13 2018-05-23 Completed [facility] Conjugate, PCV13 00:00:00 [facility] (Prevnar 13) Branch Twinrix (hep a/hep 2018-05-23 Completed [facility] of b) 00:00:00 [facility] Pneumococcal 13 2018-05-23 Completed [facility] of Conjugate, PCV13 00:00:00 [facility] (Prevnar 13) Branch Twinrix (hep a/hep 2018-05-23 Completed [facility] of b) 00:00:00 [facility] Pneumococcal 13 2018-05-23 Completed [facility] of Conjugate, PCV13 00:00:00 [facility] (Prevnar 13) Branch Twinrix (hep a/hep 2018-05-23 Completed [facility] of b) 00:00:00 [facility] Pneumococcal 13 2018-05-23 Completed [facility] Conjugate, PCV13 00:00:00 [facility] (Prevnar 13) Branch Twinrix (hep a/hep 2018-05-23 Completed [facility] of b) 00:00:00 [facility] Pneumococcal 13 2018-05-23 Completed [facility] Conjugate, PCV13 00:00:00 [facility] (Prevnar 13) Branch Twinrix (hep a/hep 2018-05-23 Completed [facility] of b) 00:00:00 [facility] Pneumococcal 13 2018-05-23 Completed [facility] of Conjugate, PCV13 00:00:00 [facility] (Prevnar 13) Branch Twinrix (hep a/hep 2018-05-23 Completed [facility] of b) 00:00:00 [facility] Pneumococcal 13 2018-05-23 Completed [facility] of Conjugate, PCV13 00:00:00 [facility] dical (Prevnar 13) Branch Twinrix (hep a/hep 2018-05-23 Completed Univer sity of b) 00:00:00 [facility] Pneumococcal 13 2018-05-23 Completed [facility] of Conjugate, PCV13 00:00:00 [facility] dical (Prevnar 13) Branch Twinrix (hep a/hep 2018-05-23 Completed Univer [facility]ity of b) 00:00:00 [facility] Pneumococcal 13 2018-05-23 Completed [facility] of Conjugate, PCV13 00:00:00 [facility] dical (Prevnar 13) Branch Twinrix (hep a/hep 2018-05-23 Completed Univer [facility]ity of b) 00:00:00 [facility] Pneumococcal 13 2018-05-23 Completed [facility] of Conjugate, PCV13 00:00:00 [facility] dical (Prevnar 13) Branch Twinrix (hep a/hep 2018-05-23 Completed Univer sity of b) 00:00:00 [facility] Pneumococcal 13 2018-05-23 Completed [facility] of Conjugate, PCV13 00:00:00 [facility] dical (Prevnar 13) Branch Twinrix (hep a/hep 2018-05-23 Completed Univer sity of b) 00:00:00 [facility] Pneumococcal 13 2018-05-23 Completed [facility] of Conjugate, PCV13 00:00:00 [facility] dical (Prevnar 13) Branch Twinrix (hep a/hep 2018-05-23 Completed [facility]iver [facility]ity of b) 00:00:00 [facility] Pneumococcal 13 2018-05-23 Completed [facility] of Conjugate, PCV13 00:00:00 [facility] dical (Prevnar 13) Branch Twinrix (hep a/hep 2018-05-23 Completed [facility]iver [facility]ity of b) 00:00:00 [facility] Pneumococcal 13 2018-05-23 Completed [facility] Conjugate, PCV13 00:00:00 [facility] (Prevnar 13) Branch Twinrix (hep a/hep 2018-05-23 Completed [facility]iver [facility] of b) 00:00:00 [facility] Pneumococcal 13 2018-05-23 Completed [facility] of Conjugate, PCV13 00:00:00 [facility] (Prevnar 13) Branch Twinrix (hep a/hep 2018-05-23 Completed [facility] of b) 00:00:00 [facility] Pneumococcal 13 2018-05-23 Completed [facility] of Conjugate, PCV13 00:00:00 [facility] (Prevnar 13) Branch Twinrix (hep a/hep 2018-05-23 Completed [facility]iver [facility]ity of b) 00:00:00 [facility] Pneumococcal 13 2018-05-23 Completed [facility] of Conjugate, PCV13 00:00:00 [facility] (Prevnar 13) Branch Twinrix (hep a/hep 2018-05-23 Completed [facility]iver [facility]ity of b) 00:00:00 [facility] Pneumococcal 13 2018-05-23 Completed [facility] of Conjugate, PCV13 00:00:00 [facility] (Prevnar 13) Branch Twinrix (hep a/hep 2018-05-23 Completed [facility]ity of b) 00:00:00 [facility] Pneumococcal 13 2018-05-23 Completed [facility] of Conjugate, PCV13 00:00:00 [facility] (Prevnar 13) Branch Twinrix (hep a/hep 2018-05-23 Completed Univer [facility]ity of b) 00:00:00 [facility] Pneumococcal 13 2018-05-23 Completed [facility] of Conjugate, PCV13 00:00:00 [facility] (Prevnar 13) Branch Twinrix (hep a/hep 2018-05-23 Completed [facility]iver [facility]ity of b) 00:00:00 [facility] Pneumococcal 13 2018-05-23 Completed [facility] of Conjugate, PCV13 00:00:00 [facility] (Prevnar 13) Branch Twinrix (hep a/hep 2018-05-23 Completed [facility]iver [facility]ity of b) 00:00:00 [facility] Pneumococcal 13 2018-05-23 Completed [facility] of Conjugate, PCV13 00:00:00 [facility] (Prevnar 13) Branch Twinrix (hep a/hep 2018-05-23 Completed Univer [facility]ity of b) 00:00:00 [facility] Pneumococcal 13 2018-05-23 Completed [facility] of Conjugate, PCV13 00:00:00 [facility] (Prevnar 13) Branch Twinrix (hep a/hep 2018-05-23 Completed [facility]iver [facility]ity of b) 00:00:00 [facility] Pneumococcal 13 2018-05-23 Completed [facility] of Conjugate, PCV13 00:00:00 [facility] (Prevnar 13) Branch Twinrix (hep a/hep 2018-05-23 Completed [facility]ity of b) 00:00:00 [facility] Pneumococcal 13 2018-05-23 Completed [facility] of Conjugate, PCV13 00:00:00 [facility] (Prevnar 13) Branch Twinrix (hep a/hep 2018-05-23 Completed [facility]ity of b) 00:00:00 [facility] Pneumococcal 13 2018-05-23 Completed [facility] of Conjugate, PCV13 00:00:00 [facility] (Prevnar 13) Branch Twinrix (hep a/hep 2018-05-23 Completed [facility]ity of b) 00:00:00 [facility] Pneumococcal 13 2018-05-23 Completed [facility] of Conjugate, PCV13 00:00:00 [facility] (Prevnar 13) Branch Twinrix (hep a/hep 2018-05-23 Completed [facility]ity of b) 00:00:00 [facility] Pneumococcal 13 2018-05-23 Completed [facility] of Conjugate, PCV13 00:00:00 [facility] (Prevnar 13) Branch Twinrix (hep a/hep 2018-05-23 Completed [facility]ity of b) 00:00:00 [facility] Pneumococcal 13 2018-05-23 Completed [facility] of Conjugate, PCV13 00:00:00 [facility] (Prevnar 13) Branch Twinrix (hep a/hep 2018-05-23 Completed [facility] of b) 00:00:00 [facility] Pneumococcal 13 2018-05-23 Completed [facility] of Conjugate, PCV13 00:00:00 [facility] (Prevnar 13) Branch Twinrix (hep a/hep 2018-05-23 Completed [facility] of b) 00:00:00 [facility] Pneumococcal 13 2018-05-23 Completed [facility] of Conjugate, PCV13 00:00:00 [facility] (Prevnar 13) Branch Twinrix (hep a/hep 2018-05-23 Completed [facility] of b) 00:00:00 [facility] Pneumococcal 13 2018-05-23 Completed [facility] of Conjugate, PCV13 00:00:00 [facility] dical (Prevnar 13) Branch Twinrix (hep a/hep 2018-05-23 Completed Univer sity of b) 00:00:00 [facility] Pneumococcal 13 2018-05-23 Completed [facility] of Conjugate, PCV13 00:00:00 [facility] dical (Prevnar 13) Branch Twinrix (hep a/hep 2018-05-23 Completed Univer sity of b) 00:00:00 [facility] Pneumococcal 13 2018-05-23 Completed [facility] y of Conjugate, PCV13 00:00:00 [facility] dical (Prevnar 13) Branch Twinrix (hep a/hep 2018-05-23 Completed Univer sity of b) 00:00:00 [facility] Pneumococcal 13 2018-05-23 Completed [facility] y of Conjugate, PCV13 00:00:00 [facility] dical (Prevnar 13) Branch Twinrix (hep a/hep 2018-05-23 Completed Univer sity of b) 00:00:00 [facility] Pneumococcal 13 2018-05-23 Completed [facility] of Conjugate, PCV13 00:00:00 [facility] dical (Prevnar 13) Branch Twinrix (hep a/hep 2018-05-23 Completed Univer sity of b) 00:00:00 [facility] Pneumococcal 13 2018-05-23 Completed [facility] of Conjugate, PCV13 00:00:00 [facility] dical (Prevnar 13) Branch Twinrix (hep a/hep 2018-05-23 Completed Univer sity of b) 00:00:00 [facility] Pneumococcal 13 2018-05-23 Completed [facility] y of Conjugate, PCV13 00:00:00 [facility] dical (Prevnar 13) Branch Twinrix (hep a/hep 2018-05-23 Completed Univer sity of b) 00:00:00 [facility] Pneumococcal 13 2018-05-23 Completed [facility] of Conjugate, PCV13 00:00:00 [facility] (Prevnar 13) Branch Twinrix (hep a/hep 2018-05-23 Completed Univer [facility]ity of b) 00:00:00 [facility] Pneumococcal 13 2018-05-23 Completed [facility] of Conjugate, PCV13 00:00:00 [facility] (Prevnar 13) Branch Twinrix (hep a/hep 2018-05-23 Completed Univer [facility]ity of b) 00:00:00 [facility] Pneumococcal 13 2018-05-23 Completed [facility] of Conjugate, PCV13 00:00:00 [facility] (Prevnar 13) Branch Twinrix (hep a/hep 2018-05-23 Completed Univer sity of b) 00:00:00 [facility] Pneumococcal 13 2018-05-23 Completed [facility] of Conjugate, PCV13 00:00:00 [facility] (Prevnar 13) Branch Twinrix (hep a/hep 2018-05-23 Completed Univer [facility]ity of b) 00:00:00 [facility] Pneumococcal 13 2018-05-23 Completed [facility] of Conjugate, PCV13 00:00:00 [facility] (Prevnar 13) Branch Twinrix (hep a/hep 2018-05-23 Completed Univer [facility]ity of b) 00:00:00 [facility] Pneumococcal 13 2018-05-23 Completed [facility] of Conjugate, PCV13 00:00:00 [facility] (Prevnar 13) Branch Twinrix (hep a/hep 2018-05-23 Completed Univer [facility]ity of b) 00:00:00 [facility] Pneumococcal 13 2018-05-23 Completed [facility] of Conjugate, PCV13 00:00:00 [facility] (Prevnar 13) Branch Twinrix (hep a/hep 2018-05-23 Completed Univer [facility]ity of b) 00:00:00 [facility] Pneumococcal 13 2018-05-23 Completed [facility] of Conjugate, PCV13 00:00:00 [facility] (Prevnar 13) Branch Twinrix (hep a/hep 2018-05-23 Completed Univer [facility]ity of b) 00:00:00 [facility] Pneumococcal 13 2018-05-23 Completed [facility] of Conjugate, PCV13 00:00:00 [facility] (Prevnar 13) Branch Twinrix (hep a/hep 2018-05-23 Completed Univer [facility]ity of b) 00:00:00 [facility] Pneumococcal 13 2018-05-23 Completed [facility] of Conjugate, PCV13 00:00:00 [facility] (Prevnar 13) Branch Twinrix (hep a/hep 2018-05-23 Completed Univer [facility]ity of b) 00:00:00 [facility] Pneumococcal 13 2018-05-23 Completed [facility] of Conjugate, PCV13 00:00:00 [facility] (Prevnar 13) Branch Twinrix (hep a/hep 2018-05-23 Completed Univer [facility]ity of b) 00:00:00 [facility] Pneumococcal 13 2018-05-23 Completed [facility] of Conjugate, PCV13 00:00:00 [facility] (Prevnar 13) Branch Twinrix (hep a/hep 2018-05-23 Completed [facility]iver [facility]ity of b) 00:00:00 [facility] Pneumococcal 13 2018-05-23 Completed [facility] of Conjugate, PCV13 00:00:00 [facility] (Prevnar 13) Branch Twinrix (hep a/hep 2018-05-23 Completed Univer [facility]ity of b) 00:00:00 [facility] Pneumococcal 13 2018-05-23 Completed [facility] of Conjugate, PCV13 00:00:00 [facility] (Prevnar 13) Branch Twinrix (hep a/hep 2018-05-23 Completed Univer [facility]ity of b) 00:00:00 [facility] Pneumococcal 13 2018-05-23 Completed [facility] of Conjugate, PCV13 00:00:00 [facility] (Prevnar 13) Branch Twinrix (hep a/hep 2018-05-23 Completed [facility]iver [facility]ity of b) 00:00:00 [facility] Pneumococcal 13 2018-05-23 Completed [facility] of Conjugate, PCV13 00:00:00 [facility] (Prevnar 13) Branch Twinrix (hep a/hep 2018-05-23 Completed [facility]iver [facility]ity of b) 00:00:00 [facility] Pneumococcal 13 2018-05-23 Completed [facility] of Conjugate, PCV13 00:00:00 [facility] (Prevnar 13) Branch Twinrix (hep a/hep 2018-05-23 Completed Univer [facility]ity of b) 00:00:00 [facility] Pneumococcal 13 2018-05-23 Completed [facility] of Conjugate, PCV13 00:00:00 [facility] dical (Prevnar 13) Branch Twinrix (hep a/hep 2018-05-23 Completed Univer sity of b) 00:00:00 [facility] Pneumococcal 13 2018-05-23 Completed [facility] y of Conjugate, PCV13 00:00:00 [facility] dical (Prevnar 13) Branch Twinrix (hep a/hep 2018-05-23 Completed Univer sity of b) 00:00:00 [facility] Pneumococcal 13 2018-05-23 Completed [facility] y of Conjugate, PCV13 00:00:00 [facility] dical (Prevnar 13) Branch Twinrix (hep a/hep 2018-05-23 Completed Univer sity of b) 00:00:00 [facility] Pneumococcal 13 2018-05-23 Completed [facility] y of Conjugate, PCV13 00:00:00 [facility] dical (Prevnar 13) Branch Twinrix (hep a/hep 2018-05-23 Completed Univer sity of b) 00:00:00 [facility] Pneumococcal 13 2018-05-23 Completed [facility] y of Conjugate, PCV13 00:00:00 [facility] dical (Prevnar 13) Branch Twinrix (hep a/hep 2018-05-23 Completed Univer sity of b) 00:00:00 [facility] Pneumococcal 13 2018-05-23 Completed [facility] y of Conjugate, PCV13 00:00:00 [facility] dical (Prevnar 13) Branch Twinrix (hep a/hep 2018-05-23 Completed Univer [facility]ity of b) 00:00:00 [facility] Pneumococcal 13 2018-05-23 Completed [facility] y of Conjugate, PCV13 00:00:00 [facility] dical (Prevnar 13) Branch Influenza Virus 2016-11-10 Completed [facility] y of Vaccine (3+ yrs) 00:00:00 [facility] Branch Influenza Virus 2016-11-10 Completed [facility] y of Vaccine (3+ yrs) 00:00:00 [facility] dical Branch Influenza Virus 2016-11-10 Completed [facility] of Vaccine (3+ yrs) 00:00:00 [facility] Influenza Virus 2016-11-10 Completed [facility] y of Vaccine (3+ yrs) 00:00:00 [facility] Influenza Virus 2016-11-10 Completed [facility] y of Vaccine (3+ yrs) 00:00:00 [facility] Influenza Virus 2016-11-10 Completed [facility] of Vaccine (3+ yrs) 00:00:00 [facility] Influenza Virus 2016-11-10 Completed [facility] y of Vaccine (3+ yrs) 00:00:00 [facility] Influenza Virus 2016-11-10 Completed [facility] y of Vaccine (3+ yrs) 00:00:00 [facility] Influenza Virus 2016-11-10 Completed [facility] y of Vaccine (3+ yrs) 00:00:00 [facility] Influenza Virus 2016-11-10 Completed [facility] y of Vaccine (3+ yrs) 00:00:00 [facility] Influenza Virus 2016-11-10 Completed [facility] y of Vaccine (3+ yrs) 00:00:00 [facility] Influenza Virus 2016-11-10 Completed [facility] y of Vaccine (3+ yrs) 00:00:00 [facility] Influenza Virus 2016-11-10 Completed [facility] y of Vaccine (3+ yrs) 00:00:00 [facility] Influenza Virus 2016-11-10 Completed [facility] y of Vaccine (3+ yrs) 00:00:00 [facility] Influenza Virus 2016-11-10 Completed [facility] y of Vaccine (3+ yrs) 00:00:00 [facility] Influenza Virus 2016-11-10 Completed [facility] y of Vaccine (3+ yrs) 00:00:00 [facility] Influenza Virus 2016-11-10 Completed [facility] y of Vaccine (3+ yrs) 00:00:00 [facility] Influenza Virus 2016-11-10 Completed [facility] of Vaccine (3+ yrs) 00:00:00 [facility] Influenza Virus 2016-11-10 Completed [facility] of Vaccine (3+ yrs) 00:00:00 [facility] Influenza Virus 2016-11-10 Completed [facility] of Vaccine (3+ yrs) 00:00:00 [facility] Influenza Virus 2016-11-10 Completed [facility] of Vaccine (3+ yrs) 00:00:00 [facility] Influenza Virus 2016-11-10 Completed [facility]it y of Vaccine (3+ yrs) 00:00:00 [facility] Influenza Virus 2016-11-10 Completed [facility] Vaccine (3+ yrs) 00:00:00 [facility] Influenza Virus 2016-11-10 Completed [facility] of Vaccine (3+ yrs) 00:00:00 [facility] Influenza Virus 2016-11-10 Completed [facility] of Vaccine (3+ yrs) 00:00:00 [facility] Influenza Virus 2016-11-10 Completed [facility] of Vaccine (3+ yrs) 00:00:00 [facility] Influenza Virus 2016-11-10 Completed [facility] of Vaccine (3+ yrs) 00:00:00 [facility] Influenza Virus 2016-11-10 Completed [facility] of Vaccine (3+ yrs) 00:00:00 [facility] Influenza Virus 2016-11-10 Completed [facility] of Vaccine (3+ yrs) 00:00:00 [facility] Influenza Virus 2016-11-10 Completed [facility] of Vaccine (3+ yrs) 00:00:00 [facility] Influenza Virus 2016-11-10 Completed [facility] of Vaccine (3+ yrs) 00:00:00 [facility] Influenza Virus 2016-11-10 Completed [facility] of Vaccine (3+ yrs) 00:00:00 [facility] Influenza Virus 2016-11-10 Completed [facility] of Vaccine (3+ yrs) 00:00:00 [facility] Influenza Virus 2016-11-10 Completed [facility] of Vaccine (3+ yrs) 00:00:00 [facility] Influenza Virus 2016-11-10 Completed [facility] of Vaccine (3+ yrs) 00:00:00 [facility] Influenza Virus 2016-11-10 Completed [facility] of Vaccine (3+ yrs) 00:00:00 [facility] Influenza Virus 2016-11-10 Completed [facility] of Vaccine (3+ yrs) 00:00:00 [facility] Influenza Virus 2016-11-10 Completed [facility] of Vaccine (3+ yrs) 00:00:00 [facility] Influenza Virus 2016-11-10 Completed [facility] of Vaccine (3+ yrs) 00:00:00 [facility] Influenza Virus 2016-11-10 Completed [facility] of Vaccine (3+ yrs) 00:00:00 [facility] Influenza Virus 2016-11-10 Completed [facility] of Vaccine (3+ yrs) 00:00:00 [facility] Influenza Virus 2016-11-10 Completed [facility] of Vaccine (3+ yrs) 00:00:00 [facility] Influenza Virus 2016-11-10 Completed [facility] of Vaccine (3+ yrs) 00:00:00 [facility] Influenza Virus 2016-11-10 Completed [facility] of Vaccine (3+ yrs) 00:00:00 [facility] Influenza Virus 2016-11-10 Completed [facility] of Vaccine (3+ yrs) 00:00:00 [facility] Influenza Virus 2016-11-10 Completed [facility] of Vaccine (3+ yrs) 00:00:00 [facility] Influenza Virus 2016-11-10 Completed [facility] of Vaccine (3+ yrs) 00:00:00 [facility] Influenza Virus 2016-11-10 Completed [facility] of Vaccine (3+ yrs) 00:00:00 [facility] Influenza Virus 2016-11-10 Completed [facility] of Vaccine (3+ yrs) 00:00:00 [facility] Influenza Virus 2016-11-10 Completed [facility] of Vaccine (3+ yrs) 00:00:00 [facility] Influenza Virus 2016-11-10 Completed [facility] of Vaccine (3+ yrs) 00:00:00 [facility] Influenza Virus 2016-11-10 Completed [facility] of Vaccine (3+ yrs) 00:00:00 [facility] Influenza Virus 2016-11-10 Completed [facility] of Vaccine (3+ yrs) 00:00:00 [facility] Influenza Virus 2016-11-10 Completed [facility] of Vaccine (3+ yrs) 00:00:00 [facility] Influenza Virus 2016-11-10 Completed [facility] of Vaccine (3+ yrs) 00:00:00 [facility] Influenza Virus 2016-11-10 Completed [facility] of Vaccine (3+ yrs) 00:00:00 [facility] Influenza Virus 2016-11-10 Completed [facility] of Vaccine (3+ yrs) 00:00:00 [facility] Influenza Virus 2016-11-10 Completed [facility] of Vaccine (3+ yrs) 00:00:00 [facility] Influenza Virus 2016-11-10 Completed [facility] of Vaccine (3+ yrs) 00:00:00 [facility] Influenza Virus 2016-11-10 Completed [facility] of Vaccine (3+ yrs) 00:00:00 [facility] Influenza Virus 2016-11-10 Completed [facility] of Vaccine (3+ yrs) 00:00:00 [facility] Influenza Virus 2016-11-10 Completed [facility] of Vaccine (3+ yrs) 00:00:00 [facility] Influenza Virus 2016-11-10 Completed [facility] of Vaccine (3+ yrs) 00:00:00 [facility] Influenza Virus 2016-11-10 Completed [facility] of Vaccine (3+ yrs) 00:00:00 [facility] Influenza Virus 2016-11-10 Completed [facility] of Vaccine (3+ yrs) 00:00:00 [facility] Influenza Virus 2016-11-10 Completed [facility] of Vaccine (3+ yrs) 00:00:00 [facility] Influenza Virus 2016-11-10 Completed [facility] of Vaccine (3+ yrs) 00:00:00 [facility] Influenza Virus 2016-11-10 Completed [facility] of Vaccine (3+ yrs) 00:00:00 [facility] Influenza Virus 2016-11-10 Completed [facility] of Vaccine (3+ yrs) 00:00:00 [facility] Influenza Virus 2016-11-10 Completed [facility] of Vaccine (3+ yrs) 00:00:00 [facility] Influenza Virus 2016-11-10 Completed [facility] of Vaccine (3+ yrs) 00:00:00 [facility] Influenza Virus 2016-11-10 Completed [facility] of Vaccine (3+ yrs) 00:00:00 [facility] Influenza Virus 2016-11-10 Completed [facility] of Vaccine (3+ yrs) 00:00:00 [facility] Influenza Virus 2016-11-10 Completed [facility] of Vaccine (3+ yrs) 00:00:00 [facility] Influenza Virus 2016-11-10 Completed [facility] of Vaccine (3+ yrs) 00:00:00 [facility] Influenza Virus 2016-11-10 Completed [facility] of Vaccine (3+ yrs) 00:00:00 [facility] Influenza Virus 2016-11-10 Completed [facility] of Vaccine (3+ yrs) 00:00:00 [facility] Influenza Virus 2016-11-10 Completed [facility] of Vaccine (3+ yrs) 00:00:00 [facility] Influenza Virus 2016-11-10 Completed [facility] of Vaccine (3+ yrs) 00:00:00 [facility] Pneumococcal 2014-04-13 Completed [facility] o f Polysaccharide, [...] 00:00:00 [facility] PPSV23 (PNEUMOVAX) [facility] Influenza Virus Unknown Completed [facility] of Vaccine (3+ yrs) [facility] dical Branch Influenza Virus Unknown Completed [facility] y of Vaccine (3+ yrs) [facility] d[facility] Branch Twinrix (hep a/hep Unknown Completed Univer sity of b) [facility] Twinrix (hep a/hep Unknown Completed [facility]iver sity of b) [facility] Influenza Virus Unknown Completed [facility] of Vaccine (3+ yrs) [facility] d[facility] Branch Influenza High Dose Unknown Completed Unive rsity of [facility] Influenza Virus Unknown Completed [facility] of Vaccine (3+ yrs) [facility] Influenza Virus Unknown Completed [facility] of Vaccine (3+ yrs) [facility] Branch Pneumococcal Unknown Completed [facility] o f Polysaccharide, [facility] PPSV23 (PNEUMOVAX) Branch Pneumococcal 13 Unknown Completed [facility] of Conjugate, PCV13 [facility] dical (Prevnar 13) Branch Pneumococcal 13 Unknown Completed [facility] y of Conjugate, PCV13 [facility] dical (Prevnar 13) Branch SARS-COV-2 COVID-19 Unknown Completed Unive rsity of MODERNA 0.25ML [facility] drew BOOSTER VACCINE Branch Influenza Virus Unknown Completed [facility] Vaccine,quad [facility] 65+ (FLUAD) Influenza Virus Unknown Completed [facility] of Vaccine (3+ yrs) [facility] dical Branch Influenza Virus Unknown Completed [facility] of Vaccine (3+ yrs) [facility] dical Branch Twinrix (hep a/hep Unknown Completed Univer sity of b) [facility] Twinrix (hep a/hep Unknown Completed [facility]iver sity of b) [facility] Influenza Virus Unknown Completed [facility] of Vaccine (3+ yrs) [facility] dical Branch Influenza High Dose Unknown Completed Unive rsity of [facility] Influenza Virus Unknown Completed [facility] of Vaccine (3+ yrs) [facility] d[facility] Branch Influenza Virus Unknown Completed [facility] of Vaccine (3+ yrs) [facility] dical Branch Pneumococcal Unknown Completed [facility] o f Polysaccharide, [facility] PPSV23 (PNEUMOVAX) Branch Pneumococcal 13 Unknown Completed [facility] of Conjugate, PCV13 [facility] dical (Prevnar 13) Branch Pneumococcal 13 Unknown Completed [facility] of Conjugate, PCV13 [facility] dical (Prevnar 13) Branch SARS-COV-2 COVID-19 Unknown Completed [facility]ive rsity of MODERNA 0.25ML [facility] BOOSTER VACCINE [facility] Influenza Virus Unknown Completed [facility] Vaccine,quad [facility] 65+ (FLUAD) Influenza Virus Unknown Completed [facility] Vaccine (3+ yrs) [facility] Influenza Virus Unknown Completed [facility] of Vaccine (3+ yrs) [facility] dical Branch Twinrix (hep a/hep Unknown Completed Univer sity of b) [facility] Twinrix (hep a/hep Unknown Completed Univer sity of b) [facility] Influenza Virus Unknown Completed [facility] Vaccine (3+ yrs[facility] Influenza High Dose Unknown Completed Unive rsity of [facility] Influenza Virus Unknown Completed [facility] Vaccine (3+ yrs) [facility] Influenza Virus Unknown Completed [facility] of Vaccine (3+ yrs) [facility] dical Branch Pneumococcal Unknown Completed [facility] o f Polysaccharide, [place] [facility] PPSV23 (PNEUMOVAX) Branch Pneumococcal 13 Unknown Completed [facility] of Conjugate, PCV13 [facility] dical (Prevnar 13) Branch Pneumococcal 13 Unknown Completed [facility] y of Conjugate, PCV13 [facility] dical (Prevnar 13) Branch SARS-COV-2 COVID-19 Unknown Completed [facility]ive rsity of MODERNA 0.25ML [facility] BOOSTER VACCINE [facility] Influenza Virus Unknown Completed [facility] Vaccine,quad [facility] 65+ (FLUAD) Influenza Virus Unknown Completed [facility] Vaccine (3+ yrs) [facility] Influenza Virus Unknown Completed [facility] Vaccine (3+ yrs) [facility] Twinrix (hep a/hep Unknown Completed Univer sity of b) [facility] Twinrix (hep a/hep Unknown Completed Univer sity of b) [facility] Influenza Virus Unknown Completed [facility] of Vaccine (3+ yrs) [facility] dical Branch Influenza High Dose Unknown Completed Unive rsity of [facility] Influenza Virus Unknown Completed [facility] Vaccine (3+ yrs) [place] [facility] Influenza Virus Unknown Completed [facility] of Vaccine (3+ yrs) [facility] dical Branch Pneumococcal Unknown Completed [facility] o f Polysaccharide, [place] [facility] PPSV23 (PNEUMOVAX) Branch Pneumococcal 13 Unknown Completed [facility] y of Conjugate, PCV13 [facility] dical (Prevnar 13) Branch Pneumococcal 13 Unknown Completed [facility] y of Conjugate, PCV13 [facility] dical (Prevnar 13) Branch SARS-COV-2 COVID-19 Unknown Completed [facility]ive rsity of MODERNA 0.25ML [place] [facility] BOOSTER VACCINE Branch Influenza Virus Unknown Completed [facility] Vaccine,quad [facility] 65+ (FLUAD) Influenza Virus Unknown Completed [facility] Vaccine (3+ yrs) [place] [facility] Influenza Virus Unknown Completed [facility] y of Vaccine (3+ yrs) [facility] d[facility] Branch Twinrix (hep a/hep Unknown Completed Univer sity of b) [facility] Twinrix (hep a/hep Unknown Completed Univer sity of b) [facility] Influenza Virus Unknown Completed [facility] of Vaccine (3+ yrs) [facility] Influenza High Dose Unknown Completed Unive rsity of [facility] Influenza Virus Unknown Completed [facility] of Vaccine (3+ yrs) [place] [facility] Influenza Virus Unknown Completed [facility] y of Vaccine (3+ yrs) [facility] dical Branch Pneumococcal Unknown Completed [facility] o f Polysaccharide, [place] [facility] PPSV23 (PNEUMOVAX) Branch Pneumococcal 13 Unknown Completed [facility] y of Conjugate, PCV13 [facility] dical (Prevnar 13) Branch Pneumococcal 13 Unknown Completed [facility] y of Conjugate, PCV13 [facility] dical (Prevnar 13) Branch SARS-COV-2 COVID-19 Unknown Completed [facility]ive rsity of MODERNA 0.25ML [facility] BOOSTER VACCINE [facility] Influenza Virus Unknown Completed [facility] of Vaccine,quad [place] [facility] Free [facility] 65+ (FLUAD) Influenza Virus Unknown Completed [facility] y of Vaccine (3+ yrs) [facility] dical Branch Influenza Virus Unknown Completed [facility] y of Vaccine (3+ yrs) [facility] d[facility] Branch Twinrix (hep a/hep Unknown Completed Univer sity of b) [facility] Twinrix (hep a/hep Unknown Completed Univer sity of b) [facility] Influenza Virus Unknown Completed [facility] of Vaccine (3+ yrs) [facility] dical Branch Influenza High Dose Unknown Completed Unive rsity of [facility] Influenza Virus Unknown Completed [facility] y of Vaccine (3+ yrs) [facility] d[facility] Branch Influenza Virus Unknown Completed [facility] y of Vaccine (3+ yrs) [facility] dical Branch Pneumococcal Unknown Completed [facility] o f Polysaccharide, [place] [facility] PPSV23 (PNEUMOVAX) Branch Pneumococcal 13 Unknown Completed [facility] of Conjugate, PCV13 [place] [facility] (Prevnar 13) Branch Pneumococcal 13 Unknown Completed [facility] y of Conjugate, PCV13 [facility] dical (Prevnar 13) Branch SARS-COV-2 COVID-19 Unknown Completed Unive rsity of MODERNA 0.25ML [place] [facility] BOOSTER VACCINE Branch Influenza Virus Unknown Completed [facility] of Vaccine,quad [place] [facility] 65+ (FLUAD) Influenza Virus Unknown Completed [facility] Vaccine (3+ yrs) [place] [facility] Influenza Virus Unknown Completed [facility] y of Vaccine (3+ yrs) [facility] d[facility] Branch Twinrix (hep a/hep Unknown Completed Univer sity of b) [facility] Twinrix (hep a/hep Unknown Completed Univer sity of b) [facility] Influenza Virus Unknown Completed [facility] of Vaccine (3+ yrs) [facility] Influenza High Dose Unknown Completed Unive rsity of [facility] Influenza Virus Unknown Completed [facility] of Vaccine (3+ yrs) [place] [facility] Influenza Virus Unknown Completed [facility] y of Vaccine (3+ yrs) [facility] dical Branch Pneumococcal Unknown Completed University o f Polysaccharide, [facility] ical PPSV23 (PNEUMOVAX) Branch Pneumococcal 13 Unknown Completed [facility] y of Conjugate, PCV13 [facility] dical (Prevnar 13) Branch Pneumococcal 13 Unknown Completed [facility] y of Conjugate, PCV13 [facility] dical (Prevnar 13) Branch SARS-COV-2 COVID-19 Unknown Completed [facility]ive rsity of MODERNA 0.25ML [facility] BOOSTER VACCINE [facility] Influenza Virus Unknown Completed [facility] of Vaccine,quad [place] [facility]preserve Free [facility] 65+ (FLUAD) Influenza Virus Unknown Completed [facility] of Vaccine (3+ yrs) [place] [facility] Influenza Virus Unknown Completed [facility] of Vaccine (3+ yrs) [place] [facility] Twinrix (hep a/hep Unknown Completed Univer sity of b) [facility] Twinrix (hep a/hep Unknown Completed Univer sity of b) [facility] Influenza Virus Unknown Completed [facility] of Vaccine (3+ yrs) [facility] Influenza High Dose Unknown Completed Unive rsity of [facility] Influenza Virus Unknown Completed [facility] of Vaccine (3+ yrs) [place] [facility] Influenza Virus Unknown Completed [facility] y of Vaccine (3+ yrs) [facility] dical Branch Pneumococcal Unknown Completed [facility] o f Polysaccharide, [facility] PPSV23 (PNEUMOVAX) Branch Pneumococcal 13 Unknown Completed [facility] y of Conjugate, PCV13 [facility] dical (Prevnar 13) Branch Pneumococcal 13 Unknown Completed [facility] y of Conjugate, PCV13 [facility] dical (Prevnar 13) Branch SARS-COV-2 COVID-19 Unknown Completed Unive rsity of MODERNA 0.25ML [place] [facility] BOOSTER VACCINE Branch Influenza Virus Unknown Completed [facility] of Vaccine,quad [place] [facility]preserve Free [facility] 65+ (FLUAD) Influenza Virus Unknown Completed [facility]it y of Vaccine (3+ yrs) [facility] dical Branch Influenza Virus Unknown Completed [facility]it y of Vaccine (3+ yrs) [facility] dical Branch Twinrix (hep a/hep Unknown Completed Univer sity of b) [facility] Twinrix (hep a/hep Unknown Completed Univer sity of b) [facility] Influenza Virus Unknown Completed [facility] y of Vaccine (3+ yrs) [facility] dical Branch Influenza High Dose Unknown Completed Unive rsity of [facility] Influenza Virus Unknown Completed [facility] y of Vaccine (3+ yrs) [facility] dical Branch Influenza Virus Unknown Completed [facility] y of Vaccine (3+ yrs) [facility] dical Branch Pneumococcal Unknown Completed [facility] o f Polysaccharide, [facility] PPSV23 (PNEUMOVAX) Branch Pneumococcal 13 Unknown Completed [facility] y of Conjugate, PCV13 [facility] dical (Prevnar 13) Branch Pneumococcal 13 Unknown Completed [facility] y of Conjugate, PCV13 [facility] dical (Prevnar 13) Branch SARS-COV-2 COVID-19 Unknown Completed Unive rsity of MODERNA 0.25ML [place] [facility] BOOSTER VACCINE Branch Influenza Virus Unknown Completed [facility] of Vaccine,quad [place] [facility]preserve Free [facility] 65+ (FLUAD) Influenza Virus Unknown Completed [facility]it y of Vaccine (3+ yrs) [facility] dical Branch Influenza Virus Unknown Completed [facility]it y of Vaccine (3+ yrs) [facility] d[facility] Branch Twinrix (hep a/hep Unknown Completed Univer sity of b) [facility] Twinrix (hep a/hep Unknown Completed Univer sity of b) [facility] Influenza Virus Unknown Completed [facility] y of Vaccine (3+ yrs) [facility] dical Branch Influenza High Dose Unknown Completed Unive rsity of [facility] Influenza Virus Unknown Completed [facility] y of Vaccine (3+ yrs) [facility] d[facility] Branch Influenza Virus Unknown Completed [facility]it y of Vaccine (3+ yrs) [facility] dical Branch Pneumococcal Unknown Completed University o f Polysaccharide, [facility] ical PPSV23 (PNEUMOVAX) Branch Pneumococcal 13 Unknown Completed [facility]it y of Conjugate, PCV13 [facility] dical (Prevnar 13) Branch Pneumococcal 13 Unknown Completed [facility] y of Conjugate, PCV13 [facility] dical (Prevnar 13) Branch SARS-COV-2 COVID-19 Unknown Completed Unive rsity of MODERNA 0.25ML [facility] BOOSTER VACCINE [facility] Influenza Virus Unknown Completed [facility] of Vaccine,quad [place] [facility]preserve Free [facility] 65+ (FLUAD) Influenza Virus Unknown Completed [facility] y of Vaccine (3+ yrs) [facility] dical Branch Influenza Virus Unknown Completed [facility] y of Vaccine (3+ yrs) [facility] d[facility] Branch Twinrix (hep a/hep Unknown Completed Univer sity of b) [facility] Twinrix (hep a/hep Unknown Completed Univer sity of b) [facility] Influenza Virus Unknown Completed [facility] y of Vaccine (3+ yrs) [facility] dical Branch Influenza High Dose Unknown Completed Unive rsity of [facility] Influenza Virus Unknown Completed [facility]it y of Vaccine (3+ yrs) [facility] d[facility] Branch Influenza Virus Unknown Completed [facility]it y of Vaccine (3+ yrs) [facility] d[facility] Branch Pneumococcal Unknown Completed University o f Polysaccharide, [facility] ical PPSV23 (PNEUMOVAX) Branch Pneumococcal 13 Unknown Completed Universit y of Conjugate, PCV13 [facility] dical (Prevnar 13) Branch Pneumococcal 13 Unknown Completed [facility] y of Conjugate, PCV13 [facility] dical (Prevnar 13) Branch SARS-COV-2 COVID-19 Unknown Completed Unive rsity of MODERNA 0.25ML [place] [facility] BOOSTER VACCINE Branch Influenza Virus Unknown Completed [facility] of Vaccine,quad [place] [facility]preserve Free [facility] 65+ (FLUAD) Influenza Virus Unknown Completed [facility]it y of Vaccine (3+ yrs) [facility] d[facility] Branch Influenza Virus Unknown Completed [facility]it y of Vaccine (3+ yrs) [facility] d[facility] Branch Twinrix (hep a/hep Unknown Completed Univer sity of b) [facility] Twinrix (hep a/hep Unknown Completed Univer sity of b) [facility] Influenza Virus Unknown Completed [facility]it y of Vaccine (3+ yrs) [facility] dical Branch Influenza High Dose Unknown Completed Unive rsity of [facility] Influenza Virus Unknown Completed [facility] y of Vaccine (3+ yrs) [facility] dical Branch Influenza Virus Unknown Completed [facility]it y of Vaccine (3+ yrs) [facility] dical Branch Pneumococcal Unknown Completed University o f Polysaccharide, [place] [facility] PPSV23 (PNEUMOVAX) Branch Pneumococcal 13 Unknown Completed [facility]it y of Conjugate, PCV13 [facility] dical (Prevnar 13) Branch Pneumococcal 13 Unknown Completed [facility] y of Conjugate, PCV13 [facility] dical (Prevnar 13) Branch SARS-COV-2 COVID-19 Unknown Completed Unive rsity of MODERNA 0.25ML [facility] BOOSTER VACCINE Branch Influenza Virus Unknown Completed [facility] y of Vaccine,quad [place] [facility]preserve Free Branch 65+ (FLUAD) Influenza Virus Unknown Completed [facility]it y of Vaccine (3+ yrs) [facility] dical Branch Influenza Virus Unknown Completed Universit y of Vaccine (3+ yrs) [facility] d[facility] Branch Twinrix (hep a/hep Unknown Completed [facility]iver [facility]ity of b) [facility] Branch Twinrix (hep a/hep Unknown Completed Univer sity of b) [facility] Branch Influenza Virus Unknown Completed Universit y of Vaccine (3+ yrs) [facility] dical Branch Influenza High Dose Unknown Completed Unive rsity of [facility] Branch Influenza Virus Unknown Completed Universit y of Vaccine (3+ yrs) [facility] dical Branch Influenza Virus Unknown Completed Universit y of Vaccine (3+ yrs) [facility] dical Branch Pneumococcal Unknown Completed University o f Polysaccharide, [place] [facility] PPSV23 (PNEUMOVAX) Branch Pneumococcal 13 Unknown Completed Universit y of Conjugate, PCV13 [facility] dical (Prevnar 13) Branch Pneumococcal 13 Unknown Completed Universit y of Conjugate, PCV13 [facility] dical (Prevnar 13) Branch Influenza Virus Unknown Completed Universit y of Vaccine (3+ yrs) [facility] dical Branch Influenza Virus Unknown Completed Universit y of Vaccine (3+ yrs) [facility] dical Branch Twinrix (hep a/hep Unknown Completed Univer sity of b) [facility] Branch Twinrix (hep a/hep Unknown Completed [facility]ity [facility] b) [facility] Influenza Virus Unknown Completed Universit y of Vaccine (3+ yrs) [facility] dical Branch Influenza High Dose Unknown Completed Unive rsity of [facility] Influenza Virus Unknown Completed Universit y of Vaccine (3+ yrs) [facility] dical Branch Influenza Virus Unknown Completed Universit y of Vaccine (3+ yrs) [facility] dical Branch Pneumococcal Unknown Completed University o f Polysaccharide, [facility] ical PPSV23 (PNEUMOVAX) Branch Pneumococcal 13 Unknown Completed Universit y of Conjugate, PCV13 [facility] dical (Prevnar 13) Branch Pneumococcal 13 Unknown Completed Universit y of Conjugate, PCV13 [facility] dical (Prevnar 13) Branch Influenza Virus Unknown Completed Universit y of Vaccine (3+ yrs) [facility] dical Branch Influenza Virus Unknown Completed Universit y of Vaccine (3+ yrs) [facility] dical Branch Twinrix (hep a/hep Unknown Completed Univer sity of b) [facility] Twinrix (hep a/hep Unknown Completed Univer sity of b) [facility] Influenza Virus Unknown Completed Universit y of Vaccine (3+ yrs) [facility] dical Branch Influenza High Dose Unknown Completed Unive rsity of [facility] Branch Influenza Virus Unknown Completed Universit y of Vaccine (3+ yrs) [facility] dical Branch Influenza Virus Unknown Completed Universit y of Vaccine (3+ yrs) [facility] dical Branch Pneumococcal Unknown Completed University o f Polysaccharide, [facility] ical PPSV23 (PNEUMOVAX) Branch Pneumococcal 13 Unknown Completed Universit y of Conjugate, PCV13 [facility] dical (Prevnar 13) Branch Pneumococcal 13 Unknown Completed Universit y of Conjugate, PCV13 [facility] dical (Prevnar 13) Branch Influenza Virus Unknown Completed Universit y of Vaccine (3+ yrs) [facility] dical Branch Influenza Virus Unknown Completed Universit y of Vaccine (3+ yrs) [facility] dical Branch Twinrix (hep a/hep Unknown Completed Univer sity of b) [facility] Twinrix (hep a/hep Unknown Completed Univer sity of b) [facility] Influenza Virus Unknown Completed Universit y of Vaccine (3+ yrs) [facility] dical Branch Influenza High Dose Unknown Completed Unive rsity of [facility] Branch Influenza Virus Unknown Completed Universit y of Vaccine (3+ yrs) [facility] dical Branch Influenza Virus Unknown Completed Universit y of Vaccine (3+ yrs) [facility] dical Branch Pneumococcal Unknown Completed University o f Polysaccharide, [place] [facility] PPSV23 (PNEUMOVAX) Branch Pneumococcal 13 Unknown Completed Universit y of Conjugate, PCV13 [facility] dical (Prevnar 13) Branch Pneumococcal 13 Unknown Completed Universit y of Conjugate, PCV13 [facility] dical (Prevnar 13) Branch Influenza Virus Unknown Completed Universit y of Vaccine (3+ yrs) [facility] dical Branch Influenza Virus Unknown Completed Universit y of Vaccine (3+ yrs) [facility] dical Branch Twinrix (hep a/hep Unknown Completed Univer sity of b) [facility] Twinrix (hep a/hep Unknown Completed Univer sity of b) [facility] Branch Influenza Virus Unknown Completed Universit y of Vaccine (3+ yrs) [facility] dical Branch Influenza High Dose Unknown Completed Unive rsity of [facility] Branch Influenza Virus Unknown Completed Universit y of Vaccine (3+ yrs) [facility] dical Branch Influenza Virus Unknown Completed Universit y of Vaccine (3+ yrs) [facility] dical Branch Pneumococcal Unknown Completed University o f Polysaccharide, [facility] ical PPSV23 (PNEUMOVAX) Branch Pneumococcal 13 Unknown Completed Universit y of Conjugate, PCV13 [facility] dical (Prevnar 13) Branch Pneumococcal 13 Unknown Completed Universit y of Conjugate, PCV13 [facility] dical (Prevnar 13) Branch Influenza Virus Unknown Completed Universit y of Vaccine (3+ yrs) [facility] dical Branch Influenza Virus Unknown Completed Universit y of Vaccine (3+ yrs) [facility] Branch Twinrix (hep a/hep Unknown Completed Univer sity of b) [facility] Branch Twinrix (hep a/hep Unknown Completed Univer sity of b) [facility] Influenza Virus Unknown Completed Universit y of Vaccine (3+ yrs) [facility] dical Branch Influenza High Dose Unknown Completed Unive rsity of [facility] Branch Influenza Virus Unknown Completed Universit y of Vaccine (3+ yrs) [facility] dical Branch Influenza Virus Unknown Completed Universit y of Vaccine (3+ yrs) [facility] dical Branch Pneumococcal Unknown Completed University o f Polysaccharide, [facility] ical PPSV23 (PNEUMOVAX) Branch Pneumococcal 13 Unknown Completed Universit y of Conjugate, PCV13 [facility] dical (Prevnar 13) Branch Pneumococcal 13 Unknown Completed Universit y of Conjugate, PCV13 [facility] dical (Prevnar 13) Branch Influenza Virus Unknown Completed [facility] Vaccine (3+ yrs) [place] [facility] Influenza Virus Unknown Completed Universit y of Vaccine (3+ yrs) [facility] dical Branch Twinrix (hep a/hep Unknown Completed Univer sity of b) [facility] Twinrix (hep a/hep Unknown Completed Univer sity of b) [facility] Influenza Virus Unknown Completed Universit y of Vaccine (3+ yrs) [facility] dical Branch Influenza High Dose Unknown Completed Unive rsity of [facility] Influenza Virus Unknown Completed Universit y of Vaccine (3+ yrs) [facility] dical Branch Influenza Virus Unknown Completed Universit y of Vaccine (3+ yrs) [facility] dical Branch Pneumococcal Unknown Completed University o f Polysaccharide, [place] [facility] PPSV23 (PNEUMOVAX) Branch Pneumococcal 13 Unknown Completed Universit y of Conjugate, PCV13 [facility] dical (Prevnar 13) Branch Pneumococcal 13 Unknown Completed Universit y of Conjugate, PCV13 [facility] dical (Prevnar 13) Branch Influenza Virus Unknown Completed Universit y of Vaccine (3+ yrs) [facility] dical Branch Influenza Virus Unknown Completed Universit y of Vaccine (3+ yrs) [facility] dical Branch Twinrix (hep a/hep Unknown Completed Univer sity of b) [facility] Twinrix (hep a/hep Unknown Completed Univer sity of b) [facility] Influenza Virus Unknown Completed Universit y of Vaccine (3+ yrs) [facility] dical Branch Influenza High Dose Unknown Completed Unive rsity of [facility] Influenza Virus Unknown Completed Universit y of Vaccine (3+ yrs) [facility] dical Branch Influenza Virus Unknown Completed Universit y of Vaccine (3+ yrs) [facility] dical Branch Pneumococcal Unknown Completed University o f Polysaccharide, [place] [facility] PPSV23 (PNEUMOVAX) Branch Pneumococcal 13 Unknown Completed Universit y of Conjugate, PCV13 [facility] dical (Prevnar 13) Branch Pneumococcal 13 Unknown Completed Universit y of Conjugate, PCV13 [facility] dical (Prevnar 13) Branch Vital Signs Vital Name Observation Time Observation Value Comments Source Systolic blood 2022-03-02 21:31:00 138 mm[Hg] Univer sity of pressure [facility] Diastolic blood 2022-03-02 21:31:00 60 mm[Hg] Unive rsity of pressure [facility] Body temperature 2022-03-02 21:31:00 36.56 Lily Univ ersity [facility] Body height 2022-03-02 21:31:00 182.9 cm Universi ty of [facility] Body weight 2022-03-02 21:31:00 156.672 kg [facility] BMI 2022-03-02 21:31:00 46.84 kg/m2 [facility] Oxygen saturation in 2022-03-02 21:31:00 93 /min University of Arterial blood by [facility] Pulse oximetry Branch Systolic blood 2022-02-22 16:00:00 155 mm[Hg] Univer sity of pressure [facility] Diastolic blood 2022-02-22 16:00:00 78 mm[Hg] Unive rsity of pressure [facility] Heart rate 2022-02-22 15:52:00 80 /min [facility] Body height 2022-02-22 15:52:00 177.8 cm [facility] Body weight 2022-02-22 15:52:00 154.223 kg [facility] BMI 2022-02-22 15:52:00 48.78 kg/m2 [facility] Systolic blood 2022-02-06 17:17:00 114 mm[Hg] Univer sity of pressure [facility] Diastolic blood 2022-02-06 17:17:00 57 mm[Hg] Unive rsity of pressure [facility] Heart rate 2022-02-06 17:17:00 40 /min [facility] Body temperature 2022-02-06 17:17:00 36.89 Lily [facility] Body height 2022-02-06 17:17:00 177.8 cm [facility] Body weight 2022-02-06 17:17:00 155.584 kg [facility] BMI 2022-02-06 17:17:00 49.22 kg/m2 [facility] Systolic blood 2022-02-01 16:42:00 145 mm[Hg] Univer sity of pressure [facility] Diastolic blood 2022-02-01 16:42:00 83 mm[Hg] Unive rsity of pressure [facility] Heart rate 2022-02-01 16:41:00 80 /min [facility] Body temperature 2022-02-01 16:41:00 37.33 Lily [facility] Body weight 2022-02-01 16:41:00 155.584 kg [facility] BMI 2022-02-01 16:41:00 46.52 kg/m2 [facility] Systolic blood 2022-01-27 02:30:00 178 mm[Hg] Univer sity of pressure [facility] Diastolic blood 2022-01-27 02:30:00 95 mm[Hg] Unive rsity of pressure [facility] Heart rate 2022-01-27 02:30:00 79 /min Universi ty of [facility] Respiratory rate 2022-01-27 02:30:00 21 /min Univ ersity of [facility] Oxygen saturation in 2022-01-27 02:30:00 94 /min University of Arterial blood by [facility] Pulse oximetry [place] Body temperature 2022-01-27 01:10:00 36.5 Lily Univ ersity of [facility] Body height 2022-01-27 01:10:00 182.9 cm [facility] Body weight 2022-01-27 01:10:00 158.759 kg [facility] BMI 2022-01-27 01:10:00 47.47 kg/m2 [facility] Systolic blood 2022-01-05 14:49:00 141 mm[Hg] Univer sity of pressure [facility] Diastolic blood 2022-01-05 14:49:00 77 mm[Hg] Unive rsity of pressure [facility] Heart rate 2022-01-05 14:49:00 81 /min [facility] Body temperature 2022-01-05 14:46:00 36.44 Lily Univ ersity of [facility] Body height 2022-01-05 14:46:00 182.9 cm [facility] Body weight 2022-01-05 14:46:00 154.541 kg [facility] BMI 2022-01-05 14:46:00 46.21 kg/m2 [facility] Oxygen saturation in 2022-01-05 14:46:00 93 /min University of Arterial blood by [facility] Pulse oximetry Branch Systolic blood 2021-12-08 19:17:00 146 mm[Hg] Univer sity of pressure [facility] Diastolic blood 2021-12-08 19:17:00 66 mm[Hg] Unive rsity of pressure [facility] Heart rate 2021-12-08 19:17:00 77 /min [facility] Body height 2021-12-08 19:17:00 182.9 cm [facility] Body weight 2021-12-08 19:17:00 155.402 kg [facility] BMI 2021-12-08 19:17:00 46.46 kg/m2 [facility] Oxygen saturation in 2021-12-08 19:17:00 92 /min University of Arterial blood by [facility] Pulse oximetry Branch Systolic blood 2021-12-01 15:11:00 145 mm[Hg] Univer sity of pressure [facility] Diastolic blood 2021-12-01 15:11:00 75 mm[Hg] Unive rsity of pressure [facility] Heart rate 2021-12-01 15:11:00 58 /min [facility] Body temperature 2021-12-01 15:11:00 36 Lily [facility] Respiratory rate 2021-12-01 15:11:00 19 /min Univ ersity of [facility] Body height 2021-12-01 15:11:00 182.9 cm [facility] Body weight 2021-12-01 15:11:00 154.087 kg [facility] BMI 2021-12-01 15:11:00 46.07 kg/m2 [facility] Oxygen saturation in 2021-12-01 15:11:00 93 /min University of Arterial blood by [facility] Pulse oximetry Branch Systolic blood 2021-11-25 05:01:00 138 mm[Hg] Univer sity of pressure [facility] Diastolic blood 2021-11-25 05:01:00 63 mm[Hg] Unive rsity of pressure [facility] Heart rate 2021-11-25 05:01:00 86 /min [facility] Respiratory rate 2021-11-25 05:01:00 19 /min [facility] ersity of [place] [facility] [place] Oxygen saturation in 2021-11-25 05:01:00 94 /min University of Arterial blood by [facility] Pulse oximetry Branch Body temperature 2021-11-25 01:27:00 36.44 Lily [facility] ersity of [facility] Body height 2021-11-25 01:27:00 182.9 cm [facility] [place] [facility] [place] Body weight 2021-11-25 01:27:00 150.141 kg [facility] BMI 2021-11-25 01:27:00 44.89 kg/m2 [facility] Systolic blood 2021-11-24 15:13:00 167 mm[Hg] Univer sity of pressure [facility] Diastolic blood 2021-11-24 15:13:00 102 mm[Hg] Unive rsity of pressure [facility] Heart rate 2021-11-24 15:09:00 80 /min [facility] [place] Body temperature 2021-11-24 15:09:00 36.39 Lily [facility] ersity of [place] [facility] [place] Body height 2021-11-24 15:09:00 182.9 cm [facility] Body weight 2021-11-24 15:09:00 150.277 kg [facility] BMI 2021-11-24 15:09:00 44.93 kg/m2 [facility] Oxygen saturation in 2021-11-24 15:09:00 97 /min University of Arterial blood by [facility] Pulse oximetry Branch Body weight 2020-12-24 13:33:00 161.5 kg [facility] BMI 2020-12-24 13:33:00 48.29 kg/m2 [facility] Systolic blood 2022-11-23 15:01:00 137 mm[Hg] [facility] pressure Diastolic blood 2022-11-23 15:01:00 84 mm[Hg] [facility] pressure Heart rate 2022-11-23 15:01:00 86 /min [facility] Body height 2022-11-23 15:01:00 182.9 [facility] Body weight 2022-11-23 15:01:00 160.29 kg [facility] BMI 2022-11-23 15:01:00 47.93 kg/m2 [facility] Oxygen saturation in 2022-09-11 17:57:00 91 /min [facility] Arterial blood by Pulse oximetry Heart rate 2022-08-09 18:16:00 79 /min [facility] Body height 2022-08-09 18:16:00 182.9 cm [facility] Body weight 2022-08-09 18:16:00 159.303 kg [facility] BMI 2022-08-09 18:16:00 47.63 kg/m2 [facility] Systolic blood 2022-08-09 18:16:00 142 mm[Hg] [facility] pressure Diastolic blood 2022-08-09 18:16:00 64 mm[Hg] [facility] pressure Procedures Procedure Date / Time Performing Clinician Source Performed PROTHROMBIN TIME WITH 2022-12-11 13:44[facility] WITH PLATELET AND 2022-11-24 14:20:00 wm [facility] DIFFERENTIAL COMPREHENSIVE METABOLIC 2022-11-24 14:20:00 wm [facility] PANEL B NATRIURETIC PEPTIDE 2022-11-24 14:20:00 wm [facility] PROTHROMBIN TIME WITH 2022-11-23 00:00:00 Provider, Not In [facility] INR System PROTHROMBIN TIME WITH 2022-11-06 15:07:00 wm [facility] INR PROTHROMBIN TIME WITH 2022-10-23 00:00:00 Provider, Not In [facility] INR System PROTHROMBIN TIME WITH 2022-10-13 14:50:00 wm [facility] INR PROTHROMBIN TIME WITH 2022-10-04 00:00:00 Provider, Not In [facility] INR System NM BRAIN SPECT W I 123 2022-09-20 20:28:00 Alfred Sharma [facility] DATSCAN ECG 12-LEAD 2022-09-11 17:58:01 Olimpia Olivares [facility] CBC WITH PLATELET AND 2022-08-10 14:49:00 wm [facility] DIFFERENTIAL COMPREHENSIVE METABOLIC 2022-08-10 14:49:[address] [facility] PANEL B NATRIURETIC PEPTIDE 2022-08-10 14:49:00 Janay Yi [facility] LIPID PANEL 2022-08-10 14:49:00 Janay Yi spital TTE COMPLETE, W 2022-08-09 17:10:00 Janay Yi spital CONTRAST, W DOPPLER ([id number]) ECG 12-LEAD 2022-07-31 20:03:43 Janay Yi spital AUTHORIZATION FOR 2022-07-20 05:01:00 Doctor Unassigned, No [facility] Name Medical Branch AUTHORIZATION FOR 2022-07-04 05:01:00 Doctor Unassigned, No Univ ersity [facility] RELEASE OF PHI Name Medical Branch AUTHORIZATION FOR 2022-04-15 06:01:00 Doctor Unassigned, No [facility]I Name Medical Branch AUTHORIZATION FOR 2022-03-14 06:01:00 Doctor Unassigned, No [facility] RELEASE OF PHI Name Medical Branch BASIC METABOLIC PANEL 2022-02-22 15:13:00 [facility]oon [facility] (NA, K, CL, CO2, Medical Branch GLUCOSE, BUN, CREATININE, CA) PROTHROMBIN TIME / INR 2022-02-22 15:13:00 [facility]-BNP 2022-02-22 15:13:00 Joon Woody K.HMaria A [facility] POCT SARS-COV-2 ANTIGEN 2022-02-01 00:00:00 Jose Juan Gonsalez [facility] (BINAX NOW) Medical Branch MAGNESIUM 2022-01-27 01:20:00 Kash Jessica [facility] TROPONIN I 2022-01-27 01:20:00 Kash [facility] COMP. METABOLIC PANEL 2022-01-27 01:20:[address] [facility] ([id number]) Medical Branch CBC WITH DIFF 2022-01-27 01:20:00 Kash Jessica [facility] N-TERMINAL PRO-BNP 2022-01-27 01:20:00 Jessica Hewitt [facility] CONSENT/REFUSAL FOR 2022-01-27 01:01:28 Doctor Unassigned, No [facility] AND TREATMENT Name Medical Branch PROTHROMBIN TIME / INR 2022-01-26 19:21:00 Joon Woody [facility] CT CERVICAL SPINE WO 2022-01-26 19:01:00 Requisition, Paper [facility] POCT HEMOGLOBIN A1C TEST 2021-12-08 20:05:00 [facility] 2021-12-01 15:53:00 Annalise Sendsissy [facility] COMP. METABOLIC PANEL 2021-12-01 15:53:00 Annalise Sendil [facility] ([id number]) [facility] LIPID PANEL 2021-12-01 15:53:00 Annalise Sendsissy [facility] ([id number])(TOTAL Medical Branch CHOLESTEROL, TRIGLYCERIDES, HDL) CBC WITH DIFF 2021-12-01 15:53:00 Annalise Sendil [facility] PROTHROMBIN TIME / INR 2021-12-01 15:53:00 Annalise Sendil [facility] N-TERMINAL PRO-BNP 2021-12-01 15:53:00 Annalise [facility] MAGNESIUM 2021-11-25 01:49:00 Val Love [facility] TROPONIN I 2021-11-25 01:49:00 Val Love [facility] COMP. METABOLIC PANEL 2021-11-25 01:49:00 Val Love [facility] ([id number]) [facility] CBC WITH DIFF 2021-11-25 01:49:00 Val Love [facility] PROTHROMBIN TIME / INR 2021-11-25 01:49:00 Val Love [facility] CONSENT/REFUSAL FOR 2021-11-25 01:15:35 Doctor [facility]assigned, [facility]REATMENT Name Medical Branch Plan of Care Planned Activity Planned Date Details Comments Source Future Scheduled 2022-12-17 Screening for [facility] Test 10:45:53 malignant neoplasm of colon (procedure) [code = 108475794] Future Scheduled 2022-12-17 Screening for [facility] Test 10:45:53 malignant neoplasm of colon (procedure) [code = 686230068] Future Scheduled 2022-12-17 Screening for [facility] Test 10:45:53 malignant neoplasm of colon (procedure) [code = 517374914] Future Scheduled 2022-12-17 Hepatitis C screening [facility] Test 10:45:53 (procedure) [code = 735074203] Future Scheduled 2022-12-17 Screening for [facility] Test 10:45:53 malignant neoplasm of colon (procedure) [code = 374286007] Future Scheduled 2022-12-17 Screening for [facility] Test 10:45:53 malignant neoplasm of colon (procedure) [code = 518596621] Future Scheduled 2022-12-17 SHINGLES VACCINES (1 [facility] Test 10:45:53 of 2) [code = SHINGLES VACCINES (1 of 2)] Future Scheduled 2022-12-17 HEPATITIS B VACCINES [facility] Test 10:45:53 (3 of 3 - Hep B Twinrix risk 3-dose series) [code = HEPATITIS B VACCINES (3 of 3 - Hep B Twinrix risk 3-dose series)] Future Scheduled 2022-12-17 65+ PNEUMOCOCCAL [facility] Test 10:45:53 VACCINE (3 - PPSV23 or PCV20) [code = 65+ PNEUMOCOCCAL VACCINE (3 - PPSV23 or PCV20)] Future Scheduled 2022-12-17 COVID-19 VACCINE (4 - [facility] Test 10:45:53 Moderna series) [code = COVID-19 VACCINE (4 - Moderna series)] Future Scheduled 2022-12-17 INFLUENZA VACCINE (#1) [facility] Test 10:45:53 [code = INFLUENZA VACCINE (#1)] Future Scheduled 2022-08-22 Screening for [facility] Test 12:07:45 malignant neoplasm of colon (procedure) [code = 841961785] Future Scheduled 2022-08-22 Screening for [facility] Test 12:07:45 malignant neoplasm of colon (procedure) [code = 230441654] Future Scheduled 2022-08-22 Screening for [facility] Test 12:07:45 malignant neoplasm of colon (procedure) [code = 906230958] Future Scheduled 2022-08-22 Hepatitis C screening [facility] Test 12:07:45 (procedure) [code = 707533986] Future Scheduled 2022-08-22 Screening for [facility] Test 12:07:45 malignant neoplasm of colon (procedure) [code = 731011084] Future Scheduled 2022-08-22 Screening for [facility] Test 12:07:45 malignant neoplasm of colon (procedure) [code = 746107525] Future Scheduled 2022-08-22 SHINGLES VACCINES (1 Met [facility] Test 12:07:45 of 2) [code = SHINGLES VACCINES (1 of 2)] Future Scheduled 2022-08-22 HEPATITIS B VACCINES Met [facility] Test 12:07:45 (3 of 3 - Hep B Twinrix risk 3-dose series) [code = HEPATITIS B VACCINES (3 of 3 - Hep B Twinrix risk 3-dose series)] Future Scheduled 2022-08-22 65+ [facility] 12:07:45 VACCINE (3 - PPSV23 if available, else PCV20) [code = 65+ PNEUMOCOCCAL VACCINE (3 - PPSV23 if available, else PCV20)] Future Scheduled 2022-08-22 COVID-19 VACCINE (4 - [facility] Test 12:07:45 Moderna series) [code = COVID-19 VACCINE (4 - Moderna series)] Future Scheduled 2022-08-22 INFLUENZA VACCINE Method [facility] Test 12:07:45 [code = INFLUENZA VACCINE] Future Scheduled 2022-07-10 COVID-19 VACCINE (#1) [facility] Test 11:11:20 [code = COVID-19 VACCINE (#1)] Future Scheduled 2022-07-10 Hepatitis C screening [facility] Test 11:11:20 (procedure) [code = 680435629] Future Scheduled 2022-07-10 COLONOSCOPY SCREENING [facility] Test 11:11:20 [code = COLONOSCOPY SCREENING] Future Scheduled 2022-07-10 SHINGLES VACCINES (1 [facility] Test 11:11:20 of 2) [code = SHINGLES VACCINES (1 of 2)] Future Scheduled 2022-07-10 65+ [facility]OCCAL [facility] 11:11:20 VACCINE (1 - PCV) [code = 65+ PNEUMOCOCCAL VACCINE (1 - PCV)] Future Scheduled 2022-07-10 INFLUENZA VACCINE [facility] Test 11:11:20 [code = INFLUENZA VACCINE] Future Scheduled 2022-06-27 COVID-19 VACCINE (#1) [facility] Test 15:22:05 [code = COVID-19 VACCINE (#1)] Future Scheduled 2022-06-27 [facility] C [facility] Test 15:22:05 (procedure) [code = 813991730] Future Scheduled 2022-06-27 COLONOSCOPY SCREENING [facility] Test 15:22:05 [code = COLONOSCOPY SCREENING] Future Scheduled 2022-06-27 SHINGLES VACCINES (1 Met [facility] Test 15:22:05 of 2) [code = SHINGLES VACCINES (1 of 2)] Future Scheduled 2022-06-27 65+ P[facility]UMOCOCCAL [facility] Test 15:22:05 VACCINE (1 - PCV) [code = 65+ PNEUMOCOCCAL VACCINE (1 - PCV)] Future Scheduled 2022-06-27 INFLUENZA VACCINE [facility] Test 15:22:05 [code = INFLUENZA VACCINE] Future Scheduled 2022-06-27 COVID-19 VACCINE (#1) [facility] Test 15:22:05 [code = COVID-19 VACCINE (#1)] Future Scheduled 2022-06-27 Hepatitis C screening [facility] Test 15:22:05 (procedure) [code = 402146101] Future Scheduled 2022-06-27 COLONOSCOPY SCREENING [facility] Test 15:22:05 [code = COLONOSCOPY SCREENING] Future Scheduled 2022-06-27 SHINGLES VACCINES (1 Met [facility] Test 15:22:05 of 2) [code = SHINGLES VACCINES (1 of 2)] Future Scheduled 2022-06-27 65+ [facility]OCOCCAL [facility] Test 15:22:05 VACCINE (1 - PCV) [code = 65+ PNEUMOCOCCAL VACCINE (1 - PCV)] Future Scheduled 2022-06-27 INFLUENZA VACCINE [facility] Test 15:22:05 [code = INFLUENZA VACCINE] Encounters Start End Encounter Admission Attending Care Care Encounter Source Date/Time Date/Time Type Type Clinicians Facility Department ID 2022-12-08 Outpatient [facility] [id number] Common 08:31:01 NEHA [id number] [facility] 2022-06-14 Outpatient [facility] [id number] Common 17:01:00 NEHA [id number] [facility] 2021-01-10 Emergency [facility] [id number] Univers 15:32:35 ity [facility] 2021-01-10 Emergency [facility] [id number] Univers 13:50:35 [facility] 2022-12-15 2022-12-15 Community Michael di 2.16.840. 2.16.840.1. CL [id number] [facility]oted 17:00:00 18:00:00 Geriatrics [place] 1.883669. 527507.4.6. W4J Medical Provider 4.6.57568 [id number] Initial 93651 Visit 2022-12-15 2022-12-15 Telephone Kassidy, 1.2.840.1 [id number] 2100 [id number] Methodi 00:00:00 00:00:[address] 3.430.2.7 Hospit a .3.019929 l .8 2022-12-15 2022-12-15 Orders Gustavo 1.2.840.1 [id number] 088953 5652 Methodi 00:00:00 00:00:00 Only Danica 67780.1.[address] 3.430.2.7 Hospit a .3.036926 l .8 2022-12-12 2022-12-12 Telephone Gustavo, 1.2.840.1 [id number] 2100 182388 Methodi 00:00:00 00:00:[address] 3.430.2.7 Hospit a .3.170819 l .8 2022-12-08 2022-12-08 Orders Gustavo 1.2.840.1 [id number] 9068 Methodi 00:00:00 00:00:00 Only Danica 34508.1.[address] 3.430.2.7 Hospit a .3.644335 l .8 2022-12-01 2022-12-01 Orders Gustavo 1.2.840.1 [id number] 8015 Methodi 00:00:00 00:00:00 Only Danica 54325.1.[address] 3.430.2.7 Hospit a .3.889234 l .8 2022-11-28 2022-11-28 [facility] 1.2.840.114 60464 4721 Univers 00:00:00 00:00:[address] [facility] 350.1.13.10 [place] of [place] 4.2.7.2.686 Oren as OLIVIER?BLEA [id number] [address] MEDICAL OFFICE [facility] 2022-11-24 2022-11-24 Orders Gustavo 1.2.840.1 [id number] 1657 Methodi 00:00:00 00:00:00 Only Danica 81491.1.[address] 3.430.2.7 Hospit a .3.048242 l .8 2022-11-23 2022-11-23 Office Kassidy 1.2.840.1 [id number] [id number] 8765 Methodi 09:40:00 11:03:36 Visit Janay 72668.1.[address] 3.430.2.7 Hospit a .3.208242 l .8 2022-11-23 2022-11-23 Outpatient [facility] [id number] 452 [place] 00:00:00 00:00:[address] 2022-11-23 2022-11-23 Telephone Gustavo 1.2.840.1 [id number] 2100 [id number] Methodi 00:00:00 00:00:[address] 3.430.2.7 Hospit a .3.909308 l .8 2022-11-23 2022-11-23 Outpatient [facility] [id number] 617 [place] 00:00:00 00:00:00 WALEED [address] 2022-11-17 2022-11-17 Orders Gustavo, 1.2.840.1 [id number] 6983 Methodi 00:00:00 00:00:00 Only Danica 36724.1.[address] 3.430.2.7 Hospit a .3.080878 l .8 2022-11-10 2022-11-10 Orders Gustavo, 1.2.840.1 [id number] 959018 7070 Methodi 00:00:00 00:00:00 Only Danica 77850.1.[address] 3.430.2.7 Hospit a .3.340989 l .8 2022-11-08 2022-11-08 Telephone Citlaly, 1.2.840.1 [id number] 730 4687935 Methodi 00:00:00 00:00:[address] 3.430.2.7 Hospit a .3.276392 l .8 2022-11-07 2022-11-07 Telephone Gustavo, 1.2.840.1 [id number] 2099 198063 Methodi 00:00:00 00:00:[address] 3.430.2.7 Hospit a .3.946207 l .8 2022-11-03 2022-11-03 Telephone Kassidy, 1.2.840.1 [id number] 2099 048369 Methodi 00:00:00 00:00:[address] 3.430.2.7 Hospit a .3.481198 l .8 2022-11-03 2022-11-03 Orders Gustavo, 1.2.840.1 [id number] 376935 3384 Methodi 00:00:00 00:00:00 Only Danica 21928.1.[address] 3.430.2.7 Hospit a .3.076581 l .8 2022-10-31 2022-10-31 Orders Gustavo, 1.2.840.1 [id number] 035165 3070 Methodi 00:00:00 00:00:00 Only Danica 15207.1.[address] 3.430.2.7 Hospit a .3.344242 l .8 2022-10-31 2022-10-31 Telephone Chen, 1.2.840.1 [id number] 2100 214509 Methodi 00:00:00 00:00:[address] 3.430.2.7 Hospit a .3.816817 l .8 2022-10-27 2022-10-27 Orders Chen, 1.2.840.1 [id number] 338479 5708 Methodi 00:00:00 00:00:00 Only Danica 22144.1.[address] 3.430.2.7 Hospit a .3.099738 l .8 2022-10-19 2022-10-19 Outpatient Ogbechie_L [facility] 1337 82-202 [facility]oted 00:00:00 00:00:00 908[address] Medica l Group 2022-10-18 2022-10-18 Telephone Chen, 1.2.840.1 [id number] 2100 439014 Methodi 00:00:00 00:00:[address] 3.430.2.7 Hospit a .3.996541 l .8 2022-10-16 2022-10-16 Orders Chen, 1.2.840.1 [id number] 091177 2681 Methodi 00:00:00 00:00:00 Only Danica 01113.1.[address] 3.430.2.7 Hospit a .3.544879 l .8 2022-10-16 2022-10-16 Telephone Chen, 1.2.840.1 [id number] 2100 524422 Methodi 00:00:00 00:00:[address] 3.430.2.7 Hospit a .3.276626 l .8 2022-10-13 2022-10-13 Orders Juvencio, 1.2.840.1 [id number] 4429 Methodi 00:00:00 00:00:00 Only Iris 09659.1.[address] 3.430.2.7 Hospit a .3.586274 l .8 2022-10-13 2022-10-13 Documentat Adonay, 1.2.840.1 [id number] 953 [id number] Methodi 00:00:00 00:00:00 ion Ratna Borges 40596.1.[address] 3.430.2.7 Hospit a .3.308682 l .8 2022-10-13 2022-10-13 Telephone Benignowm, 1.2.840.1 [id number] 2100 880752 Methodi 00:00:00 00:00:[address] Adi 3.430.2.7 Hospit a .3.369506 l .8 2022-10-12 2022-10-12 Telephone Citlaly, 1.2.840.1 [id number] 037 [id number] Methodi 00:00:00 00:00:[address] 3.430.2.7 Hospit a .3.538391 l .8 2022-10-02 2022-10-02 Office Kassidy, 1.2.840.1 [id number] 7753 Methodi 14:00:00 14:28:59 Visit Janay 45538.1.[address] 3.430.2.7 Hospit a .3.038859 l .8 2022-10-02 2022-10-02 [facility] 1.2.840.[address] [facility] 00:00:00 00:00:[address] [facility] 350.1.13.10 [place] HANDY 4.2.7.2.686 Oren as OLIVIER?BLEA [phone] Az paulette [address] MEDICAL OFFICE BUILDING 2022-10-02 2022-10-02 Outpatient WM [facility] [id number] 316 [place] 00:00:00 00:00:00 WALEED [address] 2022-09-20 2022-09-20 [facility], 1.2.840.1 [id number] 375 [id number] Methodi 14:25:52 23:59:00 Encounter Alfred Walker 43095.1.[address] 3.430.2.7 Hospit a .3.576854 l .8 2022-09-20 2022-09-20 [facility], 1.2.840.1 [id number] 224 [id number] Methodi 09:16:17 14:24:00 Encounter Alfred Walker 42278.1.[address] 3.430.2.7 Hospit a .3.165524 l .8 2022-09-20 2022-09-20 Outpatient [facility] 88401 77683 [place] 00:00:00 00:00:00 ALFRED More Method i 2022-09-20 2022-09-20 Outpatient [facility] 48636 25193 [place] 00:00:00 00:00:00 ALFRED Telles [facility] 2022-09-14 2022-09-14 Outpatient Florence [facility] [id number] [address] [facility] 15:30:00 15:30:00 SENDIL [facility] 2022-09-11 2022-09-13 Office Marshall, 1.2.840.1 [id number] 348371 0303 Methodi 15:00:00 15:46:36 Visit Olimpia 35871.1.[address] Maliea 3.430.2.7 Hospit a .3.130280 l .8 2022-09-13 2022-09-13 Telephone Ender 1.2.840.1 [id number] 21 [id number] Methodi 00:00:00 00:00:[address] 3.430.2.7 Hospit a .3.766603 l .8 2022-09-11 2022-09-13 [facility] [id number] [address] [place] [address] 00:00:00 00:00:00 OLIMPIA [address] 2022-08-25 2022-08-25 Transcribe Edith, 1.2.840.1 [id number] 2 [id number] Methodi 00:00:00 00:00:00 Orders Alfred Walker 53371.1.[address] 3.430.2.7 Hospit a .3.029831 l .8 2022-08-23 2022-08-23 Transcribe Quang, 1.2.840.1 [id number] 642 [id number] Methodi 00:00:00 00:00:00 Orders Jackie 30866.1.[address] 3.430.2.7 Hospit a .3.643450 l .8 2022-08-22 2022-08-22 Telephone Citlaly, 1.2.840.1 [id number] 562 [id number] Methodi 00:00:00 00:00:[address] 3.430.2.7 Hospit a .3.489375 l .8 2022-08-22 2022-08-22 Telephone Citlaly, 1.2.840.1 [id number] 270 [id number] Methodi 00:00:00 00:00:[address] 3.430.2.7 Hospit a .3.620436 l .8 2022-08-21 2022-08-21 Telephone Rashaad, 1.2.840.1 [id number] 850 [id number] Methodi 00:00:00 00:00:[address] 3.430.2.7 Hospit a .3.572152 l .8 2022-08-21 2022-08-21 Telephone Rashaad, 1.2.840.1 [id number] 932 [id number] Methodi 00:00:00 00:00:[address] 3.430.2.7 Hospit a .3.378909 l .8 2022-08-21 2022-08-21 Telephone Ahmed, 1.2.840.1 [id number] 2099 654587 Methodi 00:00:00 00:00:[address] 3.430.2.7 Hospit a .3.318137 l .8 2022-08-21 2022-08-21 Telephone Rashaad, 1.2.840.1 [id number] 919 7616911 Methodi 00:00:00 00:00:[address] 3.430.2.7 Hospit a .3.914516 l .8 2022-08-21 2022-08-21 Telephone Rashaad, 1.2.840.1 [id number] 788 5136492 Methodi 00:00:00 00:00:[address] 3.430.2.7 Hospit a .3.554238 l .8 2022-08-21 2022-08-21 Telephone Kassidy, 1.2.840.1 [id number] 2100 608566 Methodi 00:00:00 00:00:[address] 3.430.2.7 Hospit a .3.903704 l .8 2022-08-09 2022-08-09 Office Basilio Aguayo 1.2.840.1 [id number] 21 [id number] Methodi 13:00:00 14:28:[address] 05611.1.[address] 3.430.2.7 Hospit a .3.575481 l .8 2022-08-09 2022-08-09 Office Basilio Aguayo 1.2.840.1 [id number] 21 [id number] Methodi 13:00:00 14:28:[address] 3.430.2.7 Hospit a .3.659531 l .8 2022-08-09 2022-08-09 Outpatient [facility] [id number] 316 [place] 00:00:00 00:00:[address] 2022-08-09 2022-08-09 Travel 1.2.840.1 1.2.975.957 7626 038700 Methodi 00:00:00 00:00:[address] 3.430.2.7 0.2.7.3.698 Ho spita .3.757054 084.8 l .8 2022-08-09 2022-08-09 Travel 1.2.840.1 1.2.611.627 3788 031137 Methodi 00:00:00 00:00:[address] 3.430.2.7 0.2.7.3.698 Ho spita .3.353216 084.8 l .8 2022-07-31 2022-07-31 Office Kassidy, 1.2.840.1 [id number] 397563 3780 Methodi 14:00:00 16:14:15 Visit Janay 19495.1.[address] 3.430.2.7 Hospit a .3.888178 l .8 2022-07-31 2022-07-31 Office Kassidy, 1.2.840.1 [id number] 589200 1154 Methodi 14:00:00 16:14:15 Visit Janay 95556.1.[address] 3.430.2.7 Hospit a .3.639738 l .8 2022-07-31 2022-07-31 Travel 1.2.840.1 1.2.519.916 7240 026361 Methodi 00:00:00 00:00:[address] 3.430.2.7 0.2.7.3.698 Ho spita .3.391091 084.8 l .8 2022-07-31 2022-07-31 Travel 1.2.840.1 1.2.929.620 4825 213669 Methodi 00:00:00 00:00:[address] 3.430.2.7 0.2.7.3.698 Ho spita .3.355974 084.8 l .8 2022-07-27 2022-07-27 Mateo Gonsalez [facility] 1.2.840.114 79056 5454 Univers 00:00:00 00:00:[address] [facility] 350.1.13.10 [place] [facility] 4.2.7.2.686 Oren as OLIVIER?BLEA [phone] [address] MEDICAL OFFICE BUILDING 2022-07-25 2022-07-25 Nery Rubin 2.16.840. 2.16.840.1. CLAC [id number] [facility] 13:30:00 14:00:00 Hiren Erwin 1.020230. 218645.4.6. 2R5 Medical 4.6.40994 [id number] 05134 2022-07-20 2022-07-20 Orders Doctor TOO 1.2.840.114 257730 101 Univers 00:00:00 00:00:00 Only Unassigned, CADE 350.1.13.10 [facility] [place] [facility] 4.2.7.2.686 Oren as [id number] [address] 2022-07-15 2022-07-15 Outpatient Ogbechie_L [facility] 1337 -202 [facility] 00:00:00 00:00:00 84407 Medica l Group 2022-07-07 2022-07-07 OSVALDO Visit Sandra 2.16.840. 2.16.840.1. CL [id number] [facility] 15:30:00 16:30:00 Caccamise 1.369356. 972722.4.6. 7JF Medical 4.6.80821 [id number] 46638 2022-07-06 2022-07-06 Mateo Best [facility] 1.2.840.114 218791 997 Univers 00:00:00 00:00:00 [employer] 350.1.13.10 it y of [place] 4.2.7.2.686 Oren as OLIVIER?BLEA [phone] Az dical [facility] [address] MEDICAL OFFICE [facility] 2022-07-04 2022-07-04 Orders Doctor TOO 1.2.840.114 [id number] 563 Univers 00:00:00 00:00:00 Only Unassigned, CADE 350.1.13.10 [facility] of [place] [facility] 4.2.7.2.686 Oren as [phone] [address] 2022-06-26 2022-06-26 Refill CARLITOS Burgess 1.2.840.114 549907 405 Univers 00:00:00 00:00:00 Luis OLE 350.1.13.10 i ty of [place] PROF[place] [phone] Az dical NAL 9 [facility] 2022-06-21 2022-06-21 Mateo Woody [facility] 1.2.840.114 188568 017 Univers 00:00:00 00:00:00 Sendsissy HANDY 350.1.13.10 [facility]y [facility] [place] [id number] Az dicaz NAL 9 [facility] 2022-06-15 2022-06-15 Telephone Ahmed, 1.2.840.1 [id number] 2100 976759 Methodi 00:00:00 00:00:[address] 3.430.2.7 Hospit a .3.864085 l .8 2022-06-15 2022-06-15 Transcribe Quang, 1.2.840.1 [id number] 061 [id number] Methodi 00:00:00 00:00:00 Orders Jackie 92944.1.[address] 3.430.2.7 Hospit a .3.750224 l .8 2022-06-15 2022-06-15 Transcribe Quang, 1.2.840.1 [id number] 153 [id number] Methodi 00:00:00 00:00:00 Orders Jackie 60251.1.[address] 3.430.2.7 Hospit a .3.382807 l .8 2022-06-15 2022-06-15 Telephone Ahmed, 1.2.840.1 [id number] 2100 908351 Methodi 00:00:00 00:00:[address] 3.430.2.7 Hospit a .3.474984 l .8 2022-06-15 2022-06-15 Transcribe Quang, 1.2.840.1 [id number] 377 [id number] Methodi 00:00:00 00:00:00 Orders Jackie 19144.1.[address] 3.430.2.7 Hospit a .3.981778 l .8 2022-06-15 2022-06-15 Transcribe Quang, 1.2.840.1 [id number] 776 0684717 Methodi 00:00:00 00:00:00 Orders Jackie 77620.1.[address] 3.430.2.7 Hospit a .3.022464 l .8 2022-06-12 2022-06-12 Telephone Christal Aguayosh 1.2.840.1 [id number] Methodi 00:00:00 00:00:[address] 3.430.2.7 Hospit a .3.504957 l .8 2022-06-12 2022-06-12 Critical access hospital 1.2.840.114 32284 1831 Univers 00:00:00 00:00:[address] [facility] 350.1.13.10 it y of [place] 4.2.7.2.686 Oren as OLIVIER?BLEA [phone] [address] OFFICE [facility] 2022-06-12 2022-06-12 Telephone Basilio Aguayo 1.2.840.1 [id number] Methodi 00:00:00 00:00:[address] 3.430.2.7 Hospit a .3.173595 l .8 2022-06-08 2022-06-08 Telephone [facility] 1.2.840.114 101 541631 Univers 00:00:00 00:00:00 [place] 810[address].1.13.10 it y of [place] 4.2.7.2.686 Oren as OLIVIER?BLEA [phone] [address] OFFICE [facility] 2022-05-29 2022-05-29 Critical access hospital 1.2.840.114 13525 7913 Univers 00:00:00 00:00:[address] [facility] 350.1.13.10 it y of [place] 4.2.7.2.686 Oren as OLIVIER?BLEA [phone] [address] OFFICE [facility] 2022-05-26 2022-05-26 [facility] 1.2.840.114 586345 606 Univers 00:00:00 00:00:00 Sendsissy HANDY 350.1.13.10 ity [facility] [place] ESS[place] [phone] [facility] 059 [facility] 2022-05-26 2022-05-26 Critical access hospital 1.2.840.114 27482 1559 Univers 00:00:00 00:00:[address] [facility] 350.1.13.10 it y of [place] [facility] 4.2.7.2.686 Oren as OLIVIER?BLEA [phone] [address] OFFICE [facility] 2022-05-05 2022-05-05 [facility] 1.2.840.114 12387 0799 Univers 00:00:00 00:00:[address] [facility] 350.1.13.10 it y of [place] [facility] 4.2.7.2.686 Oren as OLIVIER?BLEA [phone] [address] 2022-04-17 2022-04-17 Telephone [facility] 1.2.840.114 100 [id number] Univers 00:00:00 00:00:[address] [facility] 350.1.13.10 it y of [place] 4.2.7.2.686 Oren as OLIVIER?BLEA [phone] [address] OFFICE [facility] 2022-04-15 2022-04-15 Orders Doctor TOO 1.2.840.114 [id number] 925 Univers 00:00:00 00:00:00 Only Unassigned, CADE 350.1.13.10 ity of [place] [facility] 4.2.7.2.686 Oren as [phone] [facility] [address] 2022-04-14 2022-04-14 Outpatient Ogbechie_L DMG DMG 1337 82-202 [facility] 00:00:00 00:00:00 23114 Medica l Group 2022-04-11 2022-04-11 Telephone [facility] 1.2.840.114 100 [id number] Univers 00:00:00 00:00:00 [facility] 350.1.13.10 ity of [place] 4.2.7.2.686 Oren as OLIVIER?BLEA [phone] [address] OFFICE [facility] 2022-04-10 2022-04-10 Outpatient R [facility] [id number] Univers 00:00:00 23:59:00 CATIE HILL ity of [facility] 2022-04-10 2022-04-10 [facility] JEFF [place] 1.2.840.114 [id number] Univers 00:00:00 23:59:00 [facility] Estefanía [place] 350.1.13.10 ity of [facility] 4.2.7.2.686 Oren as [id number] [address] 2022-04-07 2022-04-07 Telephone [facility] 1.2.840.114 [id number] Univers 00:00:00 00:00:00 [facility] 350.1.13.10 ity of [place] 4.2.7.2.686 Oren as OLIVIER?BLEA [id number] [address] 2022-03-31 2022-03-31 [facility] [id number] Univers 10:40:00 10:40:00 LUIS ity [facility] 2022-03-31 2022-03-31 [facility] [id number] Univers 09:40:00 09:40:00 LUIS ity [facility] 2022-03-31 2022-03-31 [facility] [id number] Univers 09:40:00 09:40:00 LUIS ity [facility] 2022-03-29 2022-03-29 [facility] 1.2.840.114 [id number] Univers 00:00:00 00:00:00 Joon HANDY 350.1.13.10 [facility] [place] [phone] Az paulette HANDLEY 059 [facility] 2022-03-28 2022-03-28 Critical access hospital 1.2.840.114 [id number] Univers 00:00:00 00:00:[address] [facility] 350.1.13.10 it y of [place] [facility] 4.2.7.2.686 Oren as OLIVIER?BLEA [phone] [address] OFFICE [facility] 2022-03-25 2022-03-25 Critical access hospital 1.2.840.114 [id number] Univers 00:00:00 00:00:[address] [facility] 350.1.13.10 it y of [place] [facility] 4.2.7.2.686 Oren as OLIVIER?BLEA [id number] [address] 2022-03-24 2022-03-24 Outpatient R ANNALISE [facility] [id number] Univers 09:00:00 09:00:00 SENDIL ity of [facility] 2022-03-17 2022-03-17 Telephone [facility] 1.2.840.114 [id number] Univers 00:00:00 00:00:[address] [facility] 350.1.13.10 it y of [place] 4.2.7.2.686 Oren as OLIVIER?BLEA [id number] [address] OFFICE [facility] 2022-03-14 2022-03-14 Orders Doctor TOO 1.2.840.114 [id number] Univers 00:00:00 00:00:00 Only Unassigned, CADE 350.1.13.10 ity of Liberal [facility] 4.2.7.2.686 Oren as [phone] [address] 2022-03-11 2022-03-11 [facility]brittani [facility] 1.2.840.114 [id number] Univers 00:00:00 00:00:00 Sendsissy HANDY 350.1.13.10 it[place] of [place] [phone] Az dical NAL 059 [facility] 2022-03-10 2022-03-10 [employer], Adc Lab [facility] 1.2.840.114 [id number] Univers 10:15:00 10:30:00 Visit Joon Woody 350.1.13. 10 ity [facility] [place] [phone] [facility] NAL 353 [facility] 2022-03-10 2022-03-10 Outpatient R ANNALISE [facility] [id number] Univers 10:15:00 10:15:00 SENDIL sofy [facility] 2022-03-02 2022-03-02 Outpatient R ANNALISE [facility] [id number] Univers 15:30:00 16:02:47 SENDIL sofy [facility] 2022-03-02 2022-03-02 Office [facility] 1.2.840.114 [id number] Univers 15:30:00 16:02:47 Visit Joon HANDY 350.1.13.10 ity of [place] [id number] [facility] NAL 9 [facility] 2022-02-24 2022-02-24 Telephone Annalise [facility] 1.2.693.[id number] [facility] 00:00:00 00:00:00 Joon HANDY 350.1.13.10 ity [facility] [place] [phone] Az dical NAL 9 [facility] 2022-02-23 2022-02-23 Office [facility] 1.2.840.114 [id number] Univers 14:40:00 14:50:00 Visit Joon HANDY 350.1.13.10 ity [facility] [place] [phone] Az dical NAL 059 [facility] 2022-02-23 2022-02-23 [facility] [id number] Univers 14:40:00 14:40:00 SENDIL [facility] 2022-02-22 2022-02-22 [employer] 2, Adc Lab [facility] 1.2.840.114 [id number] Univers 09:00:00 13:02:50 Visit Joon [facility] 350.1.13. 10 ity [facility] [place] [phone] Az paulette HANDLEY 353 [facility] 2022-02-22 2022-02-22 Office [facility] 1.2.840.114 [id number] Univers 10:00:00 10:16:[address] [facility] 350.1.13.10 it y of [place] 4.2.7.2.686 Oren as OLIVIER?BLEA [phone] Az paulette KNEY 044 [facility] OFFICE [facility] 2022-02-22 2022-02-22 Outpatient R [facility] [id number] Univers 10:00:00 10:00:00 [facility] 2022-02-22 2022-02-22 Refill [facility] 1.2.840.114 [id number] Univers 00:00:00 00:00:[address] [facility] 350.1.13.10 it y of [place] 4.2.7.2.686 Oren as OLIVIER?BLEA [phone] Az dicmaryellen RIVERAEY 044 [facility] OFFICE [facility] 2022-02-22 2022-02-22 Refbrittani LunaGALLUP [facility] 1.2.840.114 [id number] Univers 00:00:00 00:00:00 [facility] 350.1.13.10 ity of [place] 4.2.7.2.686 Oren as OLIVIER?BLEA [phone] Az dicmaryellen RIVERAEY 092 [facility] OFFICE [facility] 2022-02-14 2022-02-14 Outpatient R ANNALISE [facility] [id number] Univers 15:00:00 17:08:[facility] 2022-02-14 Office [facility] 1.2.840.114 [id number] Univers 15:00:00 17:08:32 Visit Joon HANDY 350.1.13.10 ity of [place] [phone] Az dical NAL 059 [facility] 2022-02-14 2022-02-14 Telephone TOO Woody 1.2.245.852 [id number] Univers 00:00:00 00:00:00 Sendsissy MOHAMUD 350.1.13.10 ity [facility] 4.2.7.2.686 Oren as [phone] [address] 2022-02-10 2022-02-10 [employer] 2, Adc Lab [facility] 1.2.840.114 [id number] Univers 10:30:00 10:45:00 Visit Joon Woody 350.1.13. 10 ity of [place] [id number] Az dical NAL 353 [facility] 2022-02-10 2022-02-10 [facility] [id number] Univers 10:30:00 10:30:00 SENDSISSY goetz of [facility] 2022-02-08 2022-02-08 Refill [facility] 1.2.840.114 [id number] Univers 00:00:00 00:00:00 Joon HANDY 350.1.13.10 ity of [place] [phone] Az dical NAL 059 [facility] 2022-02-06 2022-02-06 Outpatient R [facility] [id number] Univers 11:37:54 23:59:00 JOSE JUAN goetz [facility] 2022-02-06 2022-02-06 Office [facility] 1.2.840.114 [id number] Univers 11:15:00 11:30:[address] [facility] 350.1.13.10 it y of [place] HANDY 4.2.7.2.686 Oren as OLIVIER?BLEA [id number] [address] OFFICE [facility] 2022-02-06 2022-02-06 Refbrittani [facility] 1.2.840.114 [id number] Univers 00:00:00 00:00:00 Sendsissy HANDY 350.1.13.10 ity of [place] [phone] [address] 2022-02-01 2022-02-01 Office [facility] 1.2.840.114 [id number] Univers 11:00:00 11:24:[address] [facility] 350.1.13.10 it [facility] 4.2.7.2.686 Oren as OLIVIER?BLEA [id number] [address] OFFICE [facility] 2022-02-01 2022-02-01 Outpatient R [facility] [id number] Univers 11:00:00 11:00:00 JOSE JUAN ity [facility] 2022-01-30 2022-01-30 Office [facility] 1.2.840.114 [id number] Univers 15:30:00 15:30:00 Visit Joon HANDY 350.1.13.10 ity of [place] 4.[place] [phone] [address] 2022-01-30 2022-01-30 [facility] [id number] Univers 15:30:00 11:13:29 SENDIL ity [facility] 2022-01-29 2022-01-29 Refbrittani [facility] 1.2.840.114 [id number] Univers 00:00:00 00:00:00 Sendsissy HANDY 350.1.13.10 ity of [facility] [place] [phone] [address] 2022-01-26 2022-01-26 Emergency [facility] 1.2.254.805 [id number] Univers 19:12:00 20:51:00 Jessica OLE 350.1.13.10 i ty of [place].2.7.2.[place] C[place] [id number] [facility] [address] 2022-01-26 2022-01-26 Outpatient R RADIOLOGY [facility] [id number] Univers 12:37:52 19:11:00 ity of [facility] 2022-01-26 2022-01-26 Hospital Radiology [facility] 1.2.840.114 [id number] Univers 12:37:52 19:11:00 Encounter OLE 350.1.13.10 ity of [place].2.7.2.[place] [phone] [facility] [address] 2022-01-26 2022-01-26 [employer] 2, Adc Lab [facility] 1.2.840.114 [id number] Univers 13:15:00 13:30:00 Visit Joon Woody 350.1.13. 10 ity of [place] [phone] Az dical NAL 353 [facility] 2022-01-26 2022-01-26 Outpatient R RADIOLOGY [facility] ERT [id number] Univers 00:00:00 00:00:00 ity of [facility] 2022-01-26 2022-01-26 Telephone TOO Reinoso 1.2.055.302 [id number] Univers 00:00:00 00:00:00 Fercho MOHAMUD 350.1.13.10 ity of [facility] 4.2.7.2.686 Oren as [id number] [facility] [address] 2022-01-26 2022-01-26 Telephone [facility] 1.2.797.447 [id number] Univers 00:00:00 00:00:00 Joon HANDY 350.1.13.10 ity of [place] [id number] Az dical NAL 059 [facility] 2022-01-20 2022-01-20 Telephone Roman [facility] 1.2.468.279 [id number] Univers 00:00:00 00:00:00 Gus HANDY 350.1.13.10 ity of [place] [phone] Az dicmaryellen HANDLEY 059 [facility] 2022-01-19 2022-01-19 [employer] 2, Adc Lab [facility] 1.2.840.114 [id number] Univers 13:15:00 13:30:00 Visit Gus Owens 350.1.13.10 ity of [facility] 4.2.[place].2.[place] [phone] Az dical NAL 353 [facility] 2022-01-19 2022-01-19 [facility] [id number] Univers 13:15:00 13:15:00 DIANNASHAUNNA ity o f [facility] 2022-01-12 2022-01-12 Refill [facility] 1.2.840.114 [id number] Univers 00:00:00 00:00:[address] [facility] 350.1.13.10 it y of [place] [facility] 4.2.7.2.686 Oren as OLIVIER?BLEA [phone] Az paulette RIVERAEY 044 [facility] OFFICE [facility] 2022-01-06 2022-01-06 [facility] [id number] Univers 09:40:00 09:40:00 LUIS ity [facility] 2022-01-05 2022-01-05 [facility] [id number] Univers 08:00:00 23:59:00 LUIS ity [facility] 2022-01-05 2022-01-05 [employer] 2, Adc Lab [facility] 1.2.840.114 [id number] Univers 10:45:00 11:00:00 Visit Luis Burgess 350.1.13.10 ity of [place]2.[place].2.[place] [id number] Az dicmaryellen HANDLEY 353 [facility] 2022-01-05 2022-01-05 Office [facility] 1.2.840.114 [id number] Univers 09:40:00 10:41:23 Visit Luislashonda HANDY 350.1.13.10 i ty of [place] 4.2.7.2.[place] [phone] Az dical NAL 059 [facility] 2022-01-05 2022-01-05 Telephone [facility] 1.2.552.214 [id number] Univers 00:00:00 00:00:00 Diannashaunna OLE 350.1.13.10 ity of [place].2.[place].2.[place] [phone] Az dical NAL 059 [facility] 2021-12-30 2021-12-30 Outpatient [facility] [id number] [facility] 00:00:00 00:00:00 [address] Medica l Group 2021-12-22 2021-12-22 Telephone [facility] 1.2.304.338 [id number] Univers 00:00:00 00:00:00 Joon HANDY 350.1.13.10 ity [facility] [place] [phone] Az dical NAL 059 [facility] 2021-12-21 2021-12-21 [employer] 2, Adc Lab [facility] 1.2.840.114 [id number] Univers 10:00:00 10:37:48 Visit Joon Woody 350.1.13. 10 ity of [facility] 4.2.[place].2.[place] [id number] Az dical NAL 353 [facility] 2021-12-21 2021-12-21 [facility] [id number] Univers 10:00:00 10:00:00 SENDIL itapril of [facility] 2021-12-08 2021-12-08 Office [facility] 1.2.840.114 [id number] Univers 14:30:00 15:00:00 Visit Gera BRICE 350.1.13.10 i ty of [place].2.[place] C[place] - [phone] [address] 2021-12-08 2021-12-08 Outpatient R PETE [facility] [id number] Univers 14:30:00 14:30:00 GERA goetz [facility] 2021-12-01 2021-12-01 [employer] 2, Adc Lab [facility] 1.2.840.114 [id number] Univers 10:45:00 10:55:17 Visit Joon Woody 350.1.13. 10 ity of [place].2.[place] [phone] Az dical NAL 353 [facility] 2021-12-01 2021-12-01 [facility] [id number] Univers 10:00:00 10:41:44 SENDSISSY goetz [facility] 2021-12-01 2021-12-01 Office [facility] 1.2.840.114 [id number] Univers 10:00:00 10:41:44 Visit Joon HANDY 350.1.13.10 ity of [place] 4.2.7.2.686 [place] [facility] [phone] Az dical NAL 059 [facility] 2021-12-01 2021-12-01 Outpatient R ANNALISE [facility] [id number] Univers 10:00:00 10:00:00 SENDIL sofy [facility] 2021-11-25 2021-11-25 Outpatient R GEOFFREY [facility] [id number] Univers 14:00:00 14:00:00 SCOTTIE goetz [facility] 2021-11-24 2021-11-25 Emergency [facility] 1.2.840.114 [id number] Univers 20:21:00 01:33:00 Val HANDY 350.1.13.10 ity of [place].2.[place] [id number] [facility] [address] 2021-11-25 2021-11-25 Patient Gloriablancadonald [facility] 1.2.840.114 [id number] Univers 00:00:00 00:00:00 Secure [facility] 350.1.13.10 ity of [place] HAND[place] 4.2.7.2.686 Oren as OLIVIER?BLEA [phone] Az paulette ELAM [address] [place] [address] OFFICE BUILDING 2021-11-25 2021-11-25 Telephone Mark [facility] 1.2.802.887 [id number] Univers 00:00:00 00:00:00 [facility] 350.1.13.10 it[place] of [place]2.[place] [id number] [address] OFFICE BUILDING 2021-11-24 2021-11-24 [employer] Draw, Clc-Bls Lab [facility] 1.2.8 40.114 [id number] Univers 11:30:00 11:45:00 Visit Calvin Flores [facility] 350.1.13.10 ity of [place].2.[place] [phone] [address] OFFICE [facility] 2021-11-24 2021-11-24 Out[facility] [id number] Univers 11:30:00 11:30:00 [facility] 2021-11-24 2021-11-24 Office [facility] 1.2.840.114 [id number] Univers 10:00:00 10:40:00 Visit [facility] 350.1.13.10 ity of [place].2.686 [place] [id number] [address] OFFICE [facility] 2021-11-24 2021-11-24 Outpatient R [facility] [id number] Univers 10:00:00 10:00:00 [facility] 2021-11-24 2021-11-24 Out[facility] [id number] Univers 10:00:00 10:00:00 [facility] 2021-11-24 2021-11-24 Outpatient R [facility] ERT [id number] Univers 10:00:00 10:00:00 [facility] 2021-11-24 2021-11-24 Telephone Lorraine Galarza 1.2.840.114 [id number] Univers 00:00:00 00:00:00 CADE 350.1.13.10 it y of [facility] 4.2.7.2.686 Oren as [id number] [address] 2021-11-23 2021-11-23 Office [facility] 1.2.840.114 [id number] Univers 15:15:00 15:30:[address] [facility] 350.1.13.10 it y of [place] 4.2.7.2.686 Oren as OLIVIER?BLEA [phone] Az dical KNEY 044 [facility] OFFICE [facility] 2021-11-23 2021-11-23 [facility] [id number] Univers 15:15:00 15:15:00 JOSE JUAN [facility] 2021-11-22 2021-11-22 [facility] [id number] Univers 13:30:00 13:30:00 HANNAH [facility] 2021-11-21 2021-11-21 [facility] [id number] Univers 14:00:00 14:00:00 SCOTTIE [facility] 2021-11-14 2021-11-14 Patient [facility] 1.2.840.114 [id number] Univers 00:00:00 00:00:00 Secure Msg Joon HANDY 350.1.13.10 ity of [place].2.[place].2.[place] [phone] Az dical NAL 059 [facility] 2021-11-11 2021-11-11 [facility] [id number] Univers 13:00:00 15:09:30 SENDIL [facility] 2021-11-11 2021-11-11 Office [facility] 1.2.840.114 [id number] Univers 13:00:00 15:09:30 Visit Joon HANDY 350.1.13.10 ity of [place] 4.2.7.2.[place] [id number] Az dical NAL 9 [facility] 2021-11-11 2021-11-11 Outpatient R ADITYA [facility] [id number] Univers 08:20:00 08:20:00 LUIS ity [facility] 2021-11-10 2021-11-10 [employer] 2, Adc Lab [facility] 1.2.840.114 [id number] Univers 13:15:00 13:30:00 Visit Joon Woody 350.1.13. 10 ity of [place] 4.2.7.2.[place] [phone] Az dical NAL [address] BUILDING 2021-11-10 2021-11-10 [facility] [id number] Univers 13:15:00 13:15:00 JOON [facility] 2021-11-03 2021-11-03 Outpatient R [facility] [id number] Univers 09:20:00 09:20:00 [facility] 2021-10-28 2021-10-28 [facility] [id number] Univers 14:00:00 14:00:00 JOSE JUAN [facility] 2021-10-28 2021-10-28 Patient Doctor [facility] 1.2.840.114 [id number] Univers 00:00:00 00:00:00 Secure Msg Unassigned, [facility] 350.1.13.10 ity of [place].2.[place] [id number] [address] OFFICE BUILDING 2021-10-24 2021-10-24 Outpatient R JUVENCIO LUNA [facility] [id number] Univers 11:20:00 12:02:42 JUVENCIO LUNA [facility] 2021-10-24 2021-10-24 Office Jeremy [facility] 1.2.840.114 [id number] Univers 11:20:00 12:02:42 Visit Juvencio [facility] 350.1.13.10 ity of [place] 4.2.7.2.686 Oren as OLIVIER?BLEA [phone] Az dical KNEY [address] MEDICAL OFFICE BUILDING 2021-10-21 2021-10-21 Patient Morgan Mac [facility] 1.2.448.517 [id number] Univers 00:00:00 00:00:00 Secure Msg [place] [facility] 350.1.13.10 ity of [place]2.[place].2.[place] C[place] AT [phone] Az dicmaryellen VICTORY 072 [facility] 2021-10-21 2021-10-21 Patient Doctor [facility] 1.2.840.114 [id number] Univers 00:00:00 00:00:00 Secure Msg Unassigned, HEALTH 350.1.13.10 ity of [place] [phone] [address] OFFICE BUILDING 2021-10-20 2021-10-20 Outpatient R ESTEFANIA [facility] [id number] Univers 06:35:00 10:05:00 ity of [facility] 2021-10-20 2021-10-20 Hospital [facility] 1.2.840.114 [id number] Univers 06:35:00 10:05:00 Encounter [facility] HEALTH 350.1.13.10 ity of [place]2.7.2.686 [place] [facility] [phone] [address] ([facility]) 2021-10-20 2021-10-20 Surgery [facility] 1.2.138.332 [id number] Univers 08:00:00 09:00:00 [place] SPECIALTY 350.1.13.10 ity of [place].2.7.2.[place] CENTER AT [phone] Az dicmaryellen CARTERY 020 [facility] 2021-10-17 2021-10-17 [employer]r 2, Adc Lab [facility] 1.2.840.114 [id number] Univers 15:30:00 15:45:00 Visit Luis Burgess 350.1.13.10 ity of [place] 4.2.7.2.[place] [phone] Az paulette NAL [address] [facility] 2021-10-17 2021-10-17 Outpatient R ADITYA [facility] [id number] Univers 15:30:00 15:30:00 LUIS ity of [facility] 2021-10-17 2021-10-17 Laboratory Only, Adc Test [facility] 1.2.840. 114 [id number] Univers 10:30:00 10:45:00 Only Asad Wild HANDY 350.1.13.10 ity of [place] 4.2.7.2.[place] [phone] [facility] [address] 2021-10-17 2021-10-17 Patient Doctor TOO 1.2.840.114 [id number] Univers 00:00:00 00:00:00 Secure Msg Unassigned, CADE 350.1.13.10 ity of [place] HOSPITAL 4.2.7.2.686 Oren as [phone] [facility] [address] 2021-10-17 2021-10-17 Orders Doctor TOO 1.2.840.114 [id number] Univers 00:00:00 00:00:00 Only Unassigned, CADE 350.1.13.10 ity of [place] HOSPITAL 4.2.7.2.686 Oren as [phone] [facility] [address] 2021-09-30 2021-09-30 Outpatient R ADITYA [facility] [id number] Univers 13:00:00 13:00:00 LUIS ity of [facility] 2021-09-28 2021-09-28 Telephone [facility] 1.2.696.343 [id number] Univers 00:00:00 00:00:00 Joon HANDY 350.1.13.10 ity of [place] 4.2.7.2.686 [facility] [phone] Az dical NAL 059 [facility] 2021-09-27 2021-09-27 Outpatient R NINA [facility] [id number] Univers 15:30:00 15:30:00 DMITRYONG ity of [facility] 2021-09-22 2021-09-22 Mateo [facility]GALLUP [facility] 1.2.840.114 [id number] Univers 00:00:00 00:00:00 [facility] 350.1.13.10 ity of [place] 4.2.7.2.686 Oren as OLIVIER?BLEA [phone] Me dical NICOLEEY 092 [facility] OFFICE [facility] 2021-09-19 2021-09-19 Patient Aditya [facility] 1.2.840.114 [id number] Univers 00:00:00 00:00:00 Secure Msg [facility] HEALTH 350.1.13.10 ity of [place] [id number] [address] OFFICE [facility] 2021-09-19 2021-09-19 Patient Aditya [facility] 1.2.840.114 [id number] Univers 00:00:00 00:00:00 Secure Msg Luis HEALTH 350.1.13.10 ity of [place]2.7.2.[place] [phone] [address] OFFICE [facility] 2021-09-16 2021-09-16 Outpatient R ADITYA [facility] [id number] Univers 13:30:00 23:59:00 LUIS ity of [facility] 2021-09-16 2021-09-16 [facility] [id number] Univers 13:30:00 13:30:00 LUIS ity [facility] 2021-09-16 2021-09-16 [employer]r 2, Adc Lab [facility] 1.2.840.114 [id number] Univers 13:15:00 13:30:00 Visit Joon Woody 350.1.13. 10 ity of [place] 4.2.7.2.[place] [id number] Az dical NAL 353 [facility] 2021-09-16 2021-09-16 Prep For Kiah [facility] 1.2.840.114 [id number] Univers 00:00:00 00:00:00 Surgery Zhu SPECIALTY 350.1.13.10 ity of [place]2.[place].2.[place] CENTER AT [id number] Az dical RAULY 072 [facility] 2021-09-15 2021-09-15 Telephone Kiah [facility] 1.2.917.139 [id number] Univers 00:00:00 00:00:00 Zhu SPECIALTY 350.1.13.10 ity of [place].2.[place] CENTER AT [phone] Az dicmaryellen ORTIZ Edi [facility] 2021-09-09 2021-09-09 Outpatient R ANNALISE [facility] [id number] Univers 13:30:00 13:30:00 SENDIL ity [facility] 2021-09-09 2021-09-09 [facility] [id number] Univers 13:30:00 13:30:00 SENDIL ity [facility] 2021-09-08 2021-09-08 Telephone [facility] 1.2.880.108 [id number] Univers 00:00:00 00:00:00 Marko SPECIALTY 350.1.13.10 ity of [place]2.[place].2.[place] CENTER AT [phone] Az paulette ORTIZ [address] [place] [address] 2021-09-07 2021-09-07 Orders Doctor TOO 1.2.840.114 [id number] Univers 00:00:00 00:00:00 Only Unassigned, CADE 350.1.13.10 ity of [place] [facility] 4.2.7.2.686 Oren as [phone] [address] 2021-09-06 2021-09-06 Telephone Annalise SCCLARIBEL 1.2.657.032 [id number] Univers 00:00:00 00:00:00 Sendsissy HANDY 350.1.13.10 ity of [place] 4.2.[place].2.[place] [id number] Az dical NAL 059 [facility] 2021-09-02 2021-09-02 Outpatient R ADITYA [facility] [id number] Univers 15:00:00 15:00:00 LUIS ity [facility] 2021-09-02 2021-09-02 Outpatient R ADITYA [facility] [id number] Univers 15:00:00 15:00:00 LUIS ity [facility] 2021-09-02 2021-09-02 Telephone Kiah [facility] 1.2.706.182 [id number] Univers 00:00:00 00:00:00 Zhu SPECIALTY 350.1.13.10 it[place] of [place] C[place] AT [phone] Az paulette ORTIZ [address] [place] [address] 2021-09-02 2021-09-02 Telephone [facility] 1.2.795.020 [id number] Univers 00:00:00 00:00:00 Hzu SPECIALTY 350.1.13.10 ity of [place]2.[place].2.[place] C[place] AT [phone] Az paulette ORTIZ [address] [place] [address] 2021-09-02 2021-09-02 Telephone [facility] 1.2.671.418 [id number] Univers 00:00:00 00:00:00 Marko SPECIALTY 350.1.13.10 it[id number] [phone] Az paulette ORTIZ [address] [place] [address] 2021-09-01 2021-09-01 [employer] Vls-Lab [facility] [id number] [id number] [facility] 13:15:00 13:30:00 Visit Marko Dupont SPECIALTY 350.1.13.10 [place] [phone] Az paulette ORTIZ [address] [place] [address] 2021-09-01 2021-09-01 Outpatient R [facility] 1 [id number] Univers 13:15:00 13:15:00 MARKO DUPONT [facility] 2021-09-01 2021-09-01 [facility] [id number] [id number] Univers 11:00:00 11:30:00 Visit Marko SPECIALTY 350.1.13.10 [id number] [phone] Az paulette ORTIZ [address] [place] [address] 2021-09-01 2021-09-01 Office [facility] 1.2.840.114 [id number] [facility] 11:00:00 11:30:00 Visit Marko SPECIALTY 350.1.13.10 [id number] [phone] Az selinamaryellen CARTERY 072 [facility] 2021-09-01 2021-09-01 Outpatient R [facility] 1 [id number] Univers 11:00:00 11:00:00 MARKO DUPONT [facility] 2021-09-01 2021-09-01 Outpatient R [facility] 1 [id number] Univers 11:00:00 11:00:00 MARKO DUPONT [facility] 2021-08-29 2021-08-29 Office [facility] 1.2.840.114 [id number] Univers 11:30:00 11:53:59 Visit Joon HANDY 350.1.13.10 [place]y of [place] [phone] Az paulette HANDLEY 059 [facility] 2021-08-29 2021-08-29 [facility] [id number] Univers 11:30:00 11:53:59 SENDIL sofy [facility] 2021-08-29 2021-08-29 [employer] 2, Adc Lab [facility] 1.2.840.114 [id number] Univers 11:15:00 11:30:00 Visit Joon Woody 350.1.13. 10 ity [facility] 4[place]7.2.[place] [phone] Az paulette HANDLEY 353 [facility] 2021-08-29 2021-08-29 [facility] [id number] Univers 11:15:00 11:15:00 SENDIL sofy [facility] 2021-08-23 2021-08-23 [facility] 1.2.840.114 [id number] Univers 00:00:00 00:00:00 Sendsissy HANDY 350.1.13.10 it[place] [phone] Az dicmaryellen NAL 059 [facility] 2021-08-21 2021-08-21 [facility] 1.2.840.114 [id number] Univers 00:00:00 00:00:00 Joon HANDY 350.1.13.10 ity of [place] [place] [phone] Az dical NAL [address] [place] [address] 2021-08-20 2021-08-20 Telephone [facility] 1.2.589.140 [id number] Univers 00:00:00 00:00:00 Gus HANDY 350.1.13.10 ity of [place] [phone] Az dical NAL [address] [place] [address] 2021-08-19 2021-08-19 [employer], Adc Lab [facility] 1.2.840.114 [id number] Univers 14:45:00 15:00:00 Visit Joon Woody 350.1.13. 10 ity of [place].7.[place] [phone] Az dical NAL [address] [place] [address] 2021-08-19 2021-08-19 Outpatient R ANNALISE, [facility] [id number] Univers 14:45:00 14:45:00 SENDIL ity of [facility] 2021-08-13 2021-08-13 Telephone [facility] 1.2.828.002 [id number] Univers 00:00:00 00:00:00 Gus HANDY 350.1.13.10 ity of [place] 4.[place] [phone] Az dical NAL [address] [place] [address] 2021-08-12 2021-08-12 [employer], Adc Lab [facility] 1.2.840.114 [id number] Univers 14:45:00 15:00:00 Visit Joon Woody 350.1.13. 10 ity of [place] 4.[place] [phone] Az dical NAL 353 [facility] 2021-08-12 2021-08-12 Outpatient R ANNALISE [facility] [id number] Univers 14:45:00 14:45:00 SENDIL ity of [facility] 2021-08-10 2021-08-10 Refill Annalise [facility] 1.2.840.114 [id number] Univers 00:00:00 00:00:00 Sendsissy HANDY 350.1.13.10 ity of [facility] [place] [phone] Az dical NAL 9 [facility] 2021-08-10 2021-08-10 Orders Doctor TOO 1.2.840.114 [id number] Univers 00:00:00 00:00:00 Only Unassigned, CADE 350.1.13.10 [facility] 4.2.7.2.686 O[place] as [phone] [address] 2021-08-07 2021-08-07 [facility]phone [facility] 1.2.262.837 [id number] Univers 00:00:00 00:00:00 Gus HANDY 350.1.13.10 ity of [facility] [place] [phone] Az dicaz NAL 059 [facility] 2021-08-01 2021-08-01 [employer], Adc Lab [facility] 1.2.840.114 [id number] Univers 13:00:00 13:15:00 Visit Joon Woody 350.1.13. 10 ity of [facility] [place] [phone] [facility] EMMANUELLE 353 [facility] 2021-08-01 2021-08-01 Outpatient R ANNALISE [facility] [id number] Univers 13:00:00 13:00:00 SENDIL ity [facility] 2021-07-31 2021-07-31 Telephone [facility] 1.2.580.611 [id number] Univers 00:00:00 00:00:00 Joon HANDY 350.1.13.10 ity of [facility] 4.2.7.2.[place] [phone] Az dical NAL 059 [facility] 2021-07-29 2021-07-29 Outpatient R JUVENCIO LUNA [facility] [id number] Univers 14:49:16 23:59:00 JUVENCIO LUNA [facility] 2021-07-29 2021-07-29 Outpatient R JUVENCIO LUNA [facility] [id number] Univers 14:49:16 23:59:00 JUVENCIO LUNA [facility] 2021-07-29 2021-07-29 [facility] 1.2.493.062 [id number] Univers 14:49:16 23:59:00 Encounter Juvencio HANDY 350.1.13.10 ity of [place] 4.2.7.2.686 [facility] [phone] [address] 2021-07-29 2021-07-29 [employer] 2, Adc Lab [facility] 1.2.840.114 [id number] Univers 14:00:00 14:15:00 Visit Jose Juan Gonsalez 350.1.1 3.10 ity of Unknown, Attending [place] 4.2.7.2.686 [facility] [phone] Az dical NAL 353 [facility] 2021-07-29 2021-07-29 Office Sunshine [facility] 1.2.840.114 [id number] Univers 13:15:00 13:30:00 Visit Jose Juan BRICE 350.1.13.10 it y of [place] 4.2.7.2.686 Oren as OLIVIER?BLEA [phone] Az dical KNEY 044 [facility] OFFICE [facility] 2021-07-29 2021-07-29 Outpatient Florence GONSALEZ [facility] [id number] Univers 13:15:00 13:15:00 JOSE JUAN goetz [facility] 2021-07-29 2021-07-29 Outpatient R SUNSHINE [facility] [id number] Univers 13:15:00 13:15:00 JOSE JUAN goetz [facility] 2021-07-25 2021-07-25 Office Aftab Perdomo UNIVERSIT ..840.11 4 [id number] Univers 15:30:00 16:30:00 Visit Yue Amari HEALTH 350.1.13. 10 ity of [place] [phone] [address] 2021-07-25 2021-07-25 Outpatient R YUE [facility] [id number] Univers 15:30:00 15:30:00 [facility] 2021-07-25 2021-07-25 Outpatient R YUE [facility] [id number] Univers 15:30:00 15:30:00 [facility] 2021-07-25 2021-07-25 Telephone Sunshine [facility] 1.2.840.114 [id number] Univers 00:00:00 00:00:[address] [facility] 350.1.13.10 it y of [place] 4.2.7.2.686 Oren as OLIVIER?BLEA [phone] [address] MEDICAL OFFICE [facility] 2021-07-22 2021-07-22 Outpatient R JEREMYJUVENCIO [facility] [id number] Univers 13:40:00 14:19:02 JUVENCIO LUNA [facility] 2021-07-22 2021-07-22 Office Jeremy [facility] 1.2.840.114 [id number] Univers 13:40:00 14:19:02 Visit Juvencio [facility] 350.1.13.10 ity of [place] 4.2.7.2.686 Oren as OLIVIER?BLEA [phone] [facility] [address] MEDICAL OFFICE [facility] 2021-07-21 2021-07-21 Patient Doctor [facility] 1.2.840.114 [id number] Univers 00:00:00 00:00:00 Secure Msg Unassigned, HEALTH 350.1.13.10 ity of [place] 4.2.7.2.686 Oren as OLIVIER?BLEA [id number] [facility] [address] MEDICAL OFFICE [facility] 2021-07-20 2021-07-20 Patient Stanley [facility] 1.2.840.114 [id number] Univers 00:00:00 00:00:00 Secure Msg Savana Benito HEALTH 350.1.13.10 ity of [place] 4.2.7.2.686 Oren as OLIVIER?BLEA [phone] Az paulette ELAM [address] [place] [address] MEDICAL OFFICE [facility] 2021-07-20 2021-07-20 Patient Doctor TOO 1.2.840.114 [id number] Univers 00:00:00 00:00:00 Secure Msg Unassigned, CADE 350.1.13.10 ity of Liberal [facility] 4.2.7.2.686 Oren as [phone] [address] 2021-07-20 2021-07-20 Patient Angel, [facility] 1.2.840.114 [id number] Univers 00:00:00 00:00:00 Secure Msg Savana Oliver HEALTH 350.1.13.10 ity of [place] 4.2.7.2.686 Oren as OLIVIER?BLEA [phone] Az paulette ELAM [address] [place] [address] MEDICAL OFFICE [facility] 2021-07-20 2021-07-20 Telephone [facility] 1.2.840.114 [id number] Univers 00:00:00 00:00:00 [facility] HEALTH 350.1.13.10 it y of [place] 4.2.7.2.686 Oren as OLIVIER?BLEA [phone] Az paulette ELAM [address] [place] [address] OFFICE [facility] 2021-07-20 2021-07-20 Patient Doctor [facility] 1.2.840.114 [id number] Univers 00:00:00 00:00:00 Secure Msg Unassigned, HEALTH 350.1.13.10 ity of [place] 4.2.7.2.686 Oren as OLIVIER?BLEA [phone] Az paulette ELAM [address] [place] [address] OFFICE [facility] 2021-07-18 2021-07-18 Telephone [facility] 1.2.840.114 [id number] Univers 00:00:00 00:00:00 Jose Juan HEALTH 350.1.13.10 it y of [place] 4.2.7.2.686 Oren as OLIVIER?BLEA [phone] Az dical [address] MEDICAL OFFICE BUILDING 2021-07-15 2021-07-15 Transition HenryBHAVESH barth 1.2.840.114 [id number] Univers 00:00:00 00:00:00 of Care Beata B FLORES 350.1.13.10 it y of [place].2.[place] [phone] [address] 2021-07-11 2021-07-14 Inpatient X TRICIA [facility] [id number] Univers 17:04:00 14:07:00 POPPY goetz [facility] 2021-07-11 2021-07-14 [facility] Raghu Richards [facility] 1.2.840.1 14 [id number] Univers 17:04:00 14:07:00 Encounter Moe Solorio 350.1.13.10 ity of [place] 4.2.7.2.686 [facility] [id number] [address] 2021-07-11 2021-07-14 Inpatient X TRICIA [facility] [id number] Univers 17:04:00 14:07:00 POPPY goetz [facility] 2021-07-11 2021-07-11 Transition HenryBHAVESH barth 1.2.840.114 [id number] Univers 00:00:00 00:00:00 of Care Beata B [place]OR[place] 350.1.13.10 it y of [place].2.[place] [id number] [address] 2021-07-04 2021-07-08 [facility] Jay Jay Garcia [facility] 1.2.840.1 14 [id number] Univers 10:42:00 16:45:00 Encounter Hardik Kate 350.1.13.10 ity of [place] 4.2.7.2.686 [facility] [phone] [address] 2021-07-06 2021-07-06 Patient Doctor [facility] 1.2.840.114 [id number] Univers 00:00:00 00:00:00 Secure Msg Unassigned, HEALTH 350.1.13.10 ity of [place] 4.2.7.2.[address] [facility] [phone] [address] ([facility] 2021-07-02 2021-07-02 Emergency X HEWITT [facility] ERT [id number] Univers 13:13:00 15:09:00 JESSICA itapril [facility] 2021-07-02 2021-07-02 Emergency [facility] 1.2.541.861 [id number] Univers 13:13:00 15:09:00 Jessica HANDY 350.1.13.10 i ty of [facility] 4.2.7.2.686 [facility] [phone] [place] [address] 2021-07-02 2021-07-02 Emergency X HEWITT, [facility] ERT [id number] Univers 13:13:00 15:09:00 JESSICA itapril [facility] 2021-07-01 2021-07-01 [facility] 1.2.840.114 [id number] Univers 09:22:20 23:59:00 Encounter Sendsissy HANDY 350.1.13.10 ity of [place] 4.2.7.2.686 [facility] [phone] [address] 2021-07-01 2021-07-01 [facility] [id number] Univers 11:30:00 11:30:00 SENDIL ity [facility] 2021-07-01 2021-07-01 [facility] [id number] Univers 11:30:00 09:21:00 SENDIL ity [facility] 2021-07-01 2021-07-01 [facility] 1.2.840.114 [id number] Univers 09:20:17 09:21:00 Encounter Joon HANDY 350.1.13.10 ity of [facility] 4.2.7.2.686 [facility] [phone] [facility] [address] [place] [address] 2021-06-29 2021-06-29 [employer] Lab, Ang - Luiz [facility] 1.2.840.1 14 [id number] Univers 15:30:00 15:45:00 Visit Veselka, Jose Juan grant [facility] 350.1.13 .10 ity of [place] 4.2.7.2.686 Oren as OLIVIER?BLEA [phone] [facility] 353 [facility] 2021-06-29 2021-06-29 [facility] [id number] Univers 15:30:00 15:30:00 [facility] 2021-06-29 2021-06-29 [facility] [id number] Univers 14:30:00 15:01:03 [facility] 2021-06-29 2021-06-29 [facility] 1.2.840.114 [id number] Univers 14:30:00 15:01:[address] [facility] 350.1.13.10 it y of [place] 4.2.7.2.686 Oren as OLIVIER?BLEA [phone] [facility] 044 [facility] 2021-06-29 2021-06-29 [employer] 2, Adc Lab [facility] 1.2.840.114 [id number] Univers 14:15:00 14:30:00 Visit Joon Woody 350.1.13. 10 ity of [facility] 4.2.[place].2.[place] [phone] [address] 2021-06-29 2021-06-29 [employer] 2, Adc Lab [facility] 1.2.840.114 [id number] Univers 14:15:00 14:30:00 Visit Joon Woody 350.1.13. 10 it[place] of [place] 4.2.[place].2.[place] [phone] [address] 2021-06-23 2021-06-23 Patient Doctor [place] 1.2.840.114 [id number] Univers 00:00:00 00:00:00 Secure Msg Unassigned, OLE 350.1.13.10 ity of [place] 4.2.7.2.[place] [phone] [facility] 059 [facility] 2021-06-20 2021-06-20 Transition BHAVESH Henry 1.2.840.114 [id number] Univers 00:00:00 00:00:00 of Nery FLORES 350.1.13.10 it y of [place] 4.2.7.2.686 [place] [phone] [facility] [address] 2021-06-18 2021-06-18 Refill Annalise [facility] 1.2.840.114 [id number] Univers 00:00:00 00:00:00 Sendil Lauren HANDY 350.1.13.10 ity of [facility] 4.2.7.2.[place] [phone] [address] 2021-06-14 2021-06-17 Outpatient [facility] AVNI [id number] Univers 16:51:00 16:40:00 ADNAN ity [facility] 2021-06-14 2021-06-17 Emergency Michael Gutiérrezn [facility] 1.2.840. 114 [id number] Univers 16:51:00 16:40:00 Shannon Ely 350.1.13.10 ity of [facility] 4.2.7.2.[place] [id number] [facility] [address] 2021-06-17 2021-06-17 Outpatient R ADITYA [facility] [id number] Univers 10:20:00 10:20:00 LUIS ity of [facility] 2021-06-14 2021-06-14 Outpatient [facility] AVNI [id number] Univers 16:51:00 16:51:00 ADNAN ity [facility] 2021-06-14 2021-06-14 Telephone Annalise [facility] 1.2.615.570 [id number] Univers 00:00:00 00:00:00 Joon HANDY 350.1.13.10 ity of [facility] 4.2.7.2.[place] [phone] [address] 2021-06-10 2021-06-10 [facility] [id number] Univers 16:00:00 16:32:09 ARIELLE ity of [facility] 2021-06-10 2021-06-10 Office Cecy MENENDEZ 1.2.840.114 [id number] Univers 16:00:00 16:32:09 Visit Arielle PEDIATRIC 350.1.13.10 ity of José [place] 4.2.7.2.686 [place] [phone] [place] [address] [facility] 2021-06-10 2021-06-10 Outpatient [facility] [id number] Univers 16:00:00 16:00:00 ARIELLE ity of [facility] 2021-06-10 2021-06-10 Orders Doctor GAGE 1.2.840.114 [id number] Univers 00:00:00 00:00:00 Only Unassigned, CADE 350.1.13.10 ity of [facility] 4.2.7.2.686 Oren as [phone] [place] [address] [address] 2021-06-06 2021-06-06 [facility] [id number] Univers 15:00:00 23:59:00 SENDIL ity [facility] 2021-06-06 2021-06-06 [facility] [id number] Univers 15:00:00 15:00:00 SENDIL ity [facility] 2021-06-06 2021-06-06 [facility] [id number] Univers 13:30:00 14:33:23 SENDIL ity [facility] 2021-06-06 2021-06-06 [facility] 1.2.840.114 [id number] Univers 13:30:00 14:33:23 Visit Joon HANDY 350.1.13.10 ity of [place] 4.2.7.2.[place] [phone] Az dical [facility] 059 [facility] 2021-06-06 2021-06-06 Outpatient R ANANLISE [facility] [id number] Univers 13:30:00 14:33:23 SENDIL ity [facility] 2021-06-06 2021-06-06 [employer], Adc Lab [facility] 1.2.840.114 [id number] Univers 13:15:00 13:15:00 Visit Joon Woody 350.1.13. 10 ity of [place] 4.2.7.2.686 [place] [id number] Az dical NAL 353 [facility] 2021-06-03 2021-06-03 [facility] [id number] Univers 11:00:00 11:00:00 LUIS ity [facility] 2021-06-03 2021-06-03 Telephone Annalise [facility] 1.2.472.557 [id number] Univers 00:00:00 00:00:00 Joon HANDY 350.1.13.10 ity of [place] 4.2.7.2.[place] [id number] Az dical NAL 059 [facility] 2021-05-30 2021-05-30 Orders Doctor TOO 1.2.840.114 [id number] Univers 00:00:00 00:00:00 Only Unassigned, CADE 350.1.13.10 ity of Liberal [facility] 4.2.7.2.686 Oren as [phone] [address] 2021-05-25 2021-05-25 [employer] 2, Adc Lab [facility] 1.2.840.114 [id number] Univers 14:00:00 14:15:00 Visit Joon Woody 350.1.13. 10 ity of [place] 4.2.7.2.[place] [id number] Az dical NAL 353 [facility] 2021-05-25 2021-05-25 Outpatient R ANNALISE [facility] [id number] Univers 14:00:00 14:00:00 SENDIL ity [facility] 2021-05-25 2021-05-25 Telephone Aditya [facility] 1.2.162.320 [id number] Univers 00:00:00 00:00:00 Luis CECILIATON 350.1.13.10 i ty of [facility] 4.2.7.2.[place] [phone] Az dical NAL 059 [facility] 2021-05-25 2021-05-25 [place] [facility] 1.2.502.135 [id number] Univers 00:00:00 00:00:00 Luis CECILIATON 350.1.13.10 i ty of [facility] 4.2.7.2.[place] [id number] Az dicEmily [place] 584239 [facility] 2021-05-16 2021-05-16 [place] [facility] 1.2.601.906 [id number] Univers 00:00:00 00:00:00 Sendsissy HANDY 350.1.13.10 ity of [facility] 4.2.7.2.686 [place] [phone] [place] 775669 [facility] 2021-05-11 2021-05-11 [employer] 2, Adc Lab [facility] 1.2.840.114 [id number] Univers 14:45:00 15:00:00 Visit Joon Woody 350.1.13. 10 ity of [facility] 4.2.7.2.[place] [phone] [facility] 353 [facility] 2021-05-11 2021-05-11 Outpatient R ANNALISE [facility] [id number] Univers 14:45:00 14:45:00 SENDIL ity of [facility] 2021-05-10 2021-05-10 Telephone Annalise [facility] 1.2.394.362 [id number] Univers 00:00:00 00:00:00 Joon HANDY 350.1.13.10 ity of [facility] 4.2.7.2.686 [place] [phone] [place] 584239 [facility] 2021-05-09 2021-05-09 [facility] JEFF Burgess 1.2.840.114 [id number] Univers 00:00:00 23:59:00 Encounter Luis CADE 350.1.13.10 ity of HOSPITAL 4.2.7.2.686 Oren as [id number] [address] 2021-05-09 2021-05-09 Outpatient R [facility] [id number] Univers 00:00:00 23:59:00 ity of [facility] 2021-05-09 2021-05-09 Outpatient SEWANI [facility] [id number] Univers 00:00:00 00:00:00 LIUS ity of [facility] 2021-05-04 2021-05-04 Patient Doctor [facility] 1.2.840.114 [id number] Univers 00:00:00 00:00:00 Secure Msg Unassigned, HEALTH 350.1.13.10 ity of [place].2.686 [place] [id number] [address] OFFICE BUILDING 2021-05-03 2021-05-03 [employer] Draw, Clc-Bls Lab [facility] 1.2.8 40.114 [id number] Univers 11:15:00 11:30:00 Visit Michael [facility] 350.1.13.10 ity of [place].2.686 [place] [id number] [facility] [address] OFFICE BUILDING 2021-05-03 2021-05-03 Outpatient R MICHAEL [facility] [id number] Univers 11:15:00 11:15:00 SINJU ity [facility] 2021-05-03 2021-05-03 Office [facility] 1.2.840.114 [id number] Univers 10:15:00 11:00:00 Visit [facility] Yoomly 350.1.13.10 it y of [place] 4.2.7.2.686 [place] [id number] [facility] [address] OFFICE BUILDING 2021-05-03 2021-05-03 Outpatient R MICHAEL [facility] [id number] Univers 10:15:00 10:15:00 SINJU ity [facility] 2021-05-02 2021-05-02 Patient Doctor [facility] 1.2.840.114 [id number] Univers 00:00:00 00:00:00 Secure Msg Unassigned, [place] 350.1.13.10 ity of [place] 4.2.7.2.[place] [phone] [place] 584239 [facility] 2021-04-26 2021-04-26 Outpatient R ANNALISE [facility] [id number] Univers 14:30:00 14:30:00 SENDIL ity of [facility] 2021-04-26 2021-04-26 [employer] 2, Adc Lab [facility] 1.2.840.114 [id number] Univers 14:30:00 14:30:00 Visit Joon Woody 350.1.13. 10 ity of [place] 4.2.7.2.[place] [id number] [facility] 353 [facility] 2021-04-21 2021-04-21 Patient Doctor [facility] 1.2.840.114 [id number] Univers 00:00:00 00:00:00 Secure Msg Unassigned, [facility] 350.1.13.10 ity of [place] 4.2.7.2.[place] [id number] [address] OFFICE BUILDING 2021-04-21 2021-04-21 Telephone Annalise [facility] 1.2.169.630 [id number] Univers 00:00:00 00:00:00 Joon HANDY 350.1.13.10 ity of [facility] 4.2.7.2.[place] [phone] Az dical NAL [address] [place] [address] 2021-04-19 2021-04-19 Outpatient R MEHNAZ RODRIGUEZ [facility] [id number] Univers 11:30:00 13:45:03 MEHNAZ RODRIGUEZ i ty of [facility] 2021-04-19 2021-04-19 Office Danilo [facility] 1.2.840.114 [id number] Univers 11:30:00 12:00:00 Visit Mehnaz HANDY 350.1.13.10 i ty of [place] 4.2.7.2.[place] [phone] Az dical NAL 085 [facility] 2021-04-19 2021-04-19 Outpatient R MEHNAZ RODRIGUEZ [facility] [id number] Univers 11:30:00 11:30:00 MEHNAZ RODRIGUEZ i ty of [facility] 2021-04-19 2021-04-19 Outpatient R SUNSHINE [facility] [id number] Univers 10:00:00 10:52:24 JOSE JUAN ity of [facility] 2021-04-19 2021-04-19 Office [facility] 1.2.840.114 [id number] Univers 10:00:00 10:52:[address] [facility] 350.1.13.10 it y of [place] [facility] 4.2.7.2.686 Oren as OLIVIER?BLEA [id number] [address] MEDICAL OFFICE [facility] 2021-04-15 2021-04-15 [facility] 1.2.840.114 [id number] Univers 00:00:00 00:00:00 Management Mehnaz HANDY [id number] ity of [id number] [phone] Az dical N[place] [address] [place] [address] 2021-04-13 2021-04-13 Telephone RomuloYANIV 1.2.840.114 [id number] Univers 00:00:00 00:00:00 [facility] [id number] i ty of [facility] [place] [id number] [address] 2021-04-12 2021-04-12 Outpatient R [facility] [id number] Univers 15:45:00 15:45:00 JOON goetz [facility] 2021-04-12 2021-04-12 [employer], Adc Lab [facility] 1.2.840.114 [id number] Univers 15:45:00 15:45:00 Visit Joon Woody 350.1.13. 10 ity of [place] [phone] Az dical NAL 353 [facility] 2021-04-12 2021-04-12 Office Annalise [facility] 1.2.840.114 [id number] Univers 14:30:00 15:31:53 Visit Sendil ScottMaria A [facility] [id number] ity of [place] [id number] [phone] Az dical NAL 059 [facility] 2021-04-12 2021-04-12 Outpatient R [facility] [id number] Univers 14:30:00 15:31:53 SENDIL ity [facility] 2021-04-12 2021-04-12 Outpatient R [facility] [id number] Univers 14:30:00 14:30:00 SENDIL ity [facility] 2021-04-12 2021-04-12 Patient Doctor [facility] [id number] Univers 00:00:00 00:00:00 Secure Msg Unassigned, [facility] [id number] ity of [place] [facility] [id number] [phone] [address] 2021-04-12 2021-04-12 Patient Doctor [facility] 1.2.840.114 [id number] Univers 00:00:00 00:00:00 Secure Msg Unassigned, WICKLIFFE 350.1.13.10 ity of [place] 4[place] [phone] Az dic[address] 2021-04-08 2021-04-08 [facility] [id number] Univers 09:03:48 23:59:00 LUIS ity of [facility] 2021-04-08 2021-04-08 [facility] [id number] Univers 09:03:48 23:59:00 LUIS ity of [facility] 2021-04-08 2021-04-08 [facility] 1.2.840.114 [id number] Univers 09:00:00 23:59:00 Encounter Ulis CECILIATON 350.1.13.10 ity [place] [phone] [address] 2021-04-08 2021-04-08 Outpatient R ADITYA [facility] [id number] Univers 09:03:48 09:03:48 LUIS ity of [facility] 2021-04-08 2021-04-08 [facility] [id number] Univers 00:00:00 00:00:00 LUIS ity of [facility] 2021-04-08 2021-04-08 Telephone [facility] 1.2.140.165 [id number] Univers 00:00:00 00:00:00 Sendil Lauren HANDY 350.1.13.10 ity [facility] [place] [phone] Az dicaz NAL [address] [place] [address] 2021-03-31 2021-03-31 [facility] 1.2.840.114 [id number] Univers 00:00:00 00:00:00 Secure Msg Joon ButtsHMaria A HANDY 350.1.13.10 ity of [facility] [place] [phone] Az dicaz NAL [address] [place] [address] 2021-03-31 2021-03-31 [facility] 1.2.840.114 [id number] Univers 00:00:00 00:00:00 Secure Msg Sendil KMaria AH. CECILIATON 350.1.13.10 ity of [place] [phone] Az dical NAL 9 [facility] 2021-03-29 2021-03-29 [facility] 1.2.840.114 [id number] Univers 00:00:00 00:00:00 Secure Msg Sendil KMaria AH. CECILIATON 350.1.13.10 ity of [place] [phone] Az dical NAL 059 [facility] 2021-03-29 2021-03-29 Patient Annalise [facility] 1.2.840.114 [id number] Univers 00:00:00 00:00:00 Secure Msg Joon ChavezMaria A OLE 350.1.13.10 ity of [facility] [place] [phone] Az dicmaryellen NAL 059 [facility] 2021-03-22 2021-03-22 Outpatient R ANNALISE [facility] [id number] Univers 11:00:00 11:01:17 SENDIL ity [facility] 2021-03-22 2021-03-22 [employer], Adc Lab [facility] 1.2.840.114 [id number] Univers 11:00:00 11:01:17 Visit AnnaliseJoon RaghuMaria ALambertoMaria A HANDY 350.1.13. 10 ity of [facility] [place] [phone] Az dicmaryellen HANDLEY 353 [facility] 2021-03-14 2021-03-14 [facility] 1.2.840.114 [id number] Univers 00:00:00 00:00:00 Secure Msg Jose Juan HEALTH 350.1.13.10 ity of [place] 4.2.7.2.686 Oren as OLIVIER?BLEA [phone] Az paulette ELAM 044 [facility] OFFICE [facility] 2021-03-14 2021-03-14 Patient [facility] 1.2.840.114 [id number] Univers 00:00:00 00:00:00 Secure Msg Jose Juan HEALTH 350.1.13.10 ity of [place] 4.2.7.2.686 Oren as OLIVIER?BLEA [phone] [facility] PAPA [address] [place] [address] OFFICE [facility] 2021-03-11 2021-03-11 Outpatient R SUN[facility] [id number] Univers 11:00:00 11:16:39 JOSE JUAN goetz [facility] 2021-03-11 2021-03-11 Outpatient R [facility] [id number] Univers 11:00:00 11:16:39 [facility] 2021-03-11 2021-03-11 Office [facility] 1.2.840.114 [id number] Univers 11:00:00 11:15:00 Visit Jose Juan [facility] 350.1.13.10 it y of [place] 4.2.7.2.686 Oren as OLIVIER?BLEA [phone] Az dical KNEY 044 [facility] OFFICE [facility] 2021-03-10 2021-03-10 [facility] [id number] Univers 11:00:00 11:00:00 [facility] 2021-03-10 2021-03-10 Refill [facility] 1.2.840.114 [id number] Univers 00:00:00 00:00:00 [facility] 350.1.13.10 it y of [place] [phone] [address] OFFICE [facility] 2021-03-07 2021-03-07 Outpatient R ANNALISE [facility] [id number] Univers 13:30:00 13:30:00 [facility] 2021-03-01 2021-03-01 Outpatient Florence WOODY [facility] [id number] Univers 09:30:00 09:30:00 [facility] 2021-03-01 2021-03-01 [employer], Adc Lab [facility] 1.2.840.114 [id number] Univers 09:30:00 09:30:00 Visit Joon Woody 350.1.13. 10 ity of [place] [phone] Az dical NAL 353 [facility] 2021-02-25 2021-02-25 Telephone [facility] 1.2.840.114 [id number] Univers 00:00:00 00:00:00 OLE Guzmán 350.1.13.10 ity of [place].2.[place] [phone] Az dical NAL 059 [facility] 2021-02-25 2021-02-25 Telephone [facility] 1.2.840.114 [id number] Univers 00:00:00 00:00:00 Arielle HEALTH 350.1.13.10 ity of [place] [phone] [facility] [address] OFFICE BUILDING 2021-02-15 2021-02-15 Out[facility] [id number] Univers 14:30:00 14:44:40 ARIELLE, ity of [facility] 2021-02-15 2021-02-15 Outpatient [facility] [id number] Univers 14:30:00 14:44:40 ARIELLE, ity of [facility] 2021-02-15 2021-02-[address] [facility] GEMMA 1.2.840.114 [id number] Univers 14:04:14 14:44:40 Visit LAURYN Guzmán 350.1.13.10 ity of [place] [phone] [facility] PRIMARY [address] CARE CLINIC 2021-02-14 2021-02-14 [employer], Adc Lab [facility] 1.2.840.114 [id number] Univers 15:48:40 16:03:40 Visit Joon Woody 350.1.13. 10 ity of [place] [phone] [facility] [address] [facility] 2021-02-14 2021-02-14 Outpatient R ANNALISE [facility] [id number] Univers 09:00:00 09:00:00 SENDIL sofy [facility] 2021-02-14 2021-02-14 Outpatient R ANNALISE [facility] [id number] Univers 09:00:00 09:00:00 [facility] 2021-02-14 2021-02-14 Telephone YANIV Sebastian 1.2.840.114 [id number] Univers 00:00:00 00:00:00 [facility] 350.1.13.10 i ty of [facility] [place]2.[place] [phone] [address] 2021-02-11 2021-02-11 Refill [facility] 1.2.840.114 [id number] Univers 00:00:00 00:00:00 Joon HANDY 350.1.13.10 ity of [place] [phone] Az dical NAL 059 [facility] 2021-02-08 2021-02-08 [facility] [id number] Univers 11:00:19 23:59:00 LUIS ity [facility] 2021-02-08 2021-02-08 [facility] 1.2.840.114 [id number] Univers 11:00:19 23:59:00 Encounter Luislashonda HANDY 350.1.13.10 ity [facility] [place] [phone] Az dical NAL 844 [facility] 2021-02-08 2021-02-08 Office [facility] 1.2.840.114 [id number] Univers 10:58:26 11:18:26 Visit Luis HANDY 350.1.13.10 i ty of [place] 4[place] [phone] Az dical NAL 059 [facility] 2021-02-08 2021-02-08 Outpatient R [facility]ITYA [facility] [id number] Univers 11:00:00 11:00:00 LUIS ity [facility] 2021-02-07 2021-02-07 Outpatient R VU [facility] [id number] Univers 13:00:00 13:00:00 NICOLE goetz [facility] 2021-01-31 2021-01-31 Office [facility] 1.2.840.114 [id number] Univers 14:05:00 15:05:41 Visit Nicole HANDY 350.1.13.10 ity of [place] [phone] Az dical NAL [address] [facility] 2021-01-31 2021-01-31 Outpatient R VU, [facility] [id number] Univers 14:00:00 15:05:41 NICOLE goetz [facility] 2021-01-31 2021-01-31 Outpatient R GRAMM, [facility] [id number] Univers 14:00:00 14:00:00 NICOLE goetz [facility] 2021-01-31 2021-01-31 Outpatient R VU, [facility] [id number] Univers 14:00:00 14:00:00 [facility] 2021-01-31 2021-01-31 Patient [facility] 1.2.840.114 [id number] Univers 00:00:00 00:00:00 [facility] 350.1.13.10 ity of [place] [phone] [facility] [address] OFFICE BUILDING 2021-01-31 2021-01-31 Refill [facility] 1.2.840.114 [id number] Univers 00:00:00 00:00:00 Luis CECILIATON 350.1.13.10 i ty of [place] [phone] Az dical NAL 059 [facility] 2021-01-21 2021-01-21 [employer], [facility] Lab [facility] 1.2.840.114 [id number] Univers 15:15:00 15:20:01 Visit Joon Woody 350.1.13. 10 ity of [place] [phone] Az dical NAL 353 [facility] 2021-01-21 2021-01-21 [employer] 2, [facility] Lab [facility] 1.2.840.114 [id number] Univers 15:13:15 15:20:01 Visit Joon Woody 350.1.13. 10 ity of [place] [phone] Me dical NAL [address] [facility] 2021-01-21 2021-01-21 Outpatient R ANNALISE [facility] [id number] Univers 15:15:00 15:15:00 SENDIL ity of [facility] 2021-01-18 2021-01-18 Telephone Annalise [facility] 1.2.073.318 [id number] Univers 00:00:00 00:00:00 Sendil K.H. HEALTH 350.1.13.10 ity of [place].2.[place] [phone] [facility] [address] OFFICE BUILDING 2021-01-17 2021-01-17 Outpatient R [facility] [id number] Univers 14:30:00 14:51:27 JOSE JUAN ity of [facility] 2021-01-17 2021-01-17 Office Sunshine [facility] 1.2.840.114 [id number] Univers 14:11:10 14:51:[address] [facility] 350.1.13.10 it y of [place] 4.2.7.2.686 Oren as OLIVIER?BLEA [phone] Az dical KNEY 044 [facility] OFFICE [facility] 2021-01-14 2021-01-14 Outpatient R MEHNAZ RODRIGUEZ [facility] [id number] Univers 13:00:00 13:48:56 MEHNAZ RODRIGUEZ i ty of [facility] 2021-01-14 2021-01-14 Office Danilo [facility] 1.2.840.114 [id number] Univers 12:50:20 13:48:56 Visit Mehnaz HANDY 350.1.13.10 i ty of [place] [phone] Az dical NAL 085 [facility] 2021-01-14 2021-01-14 Outpatient R MEHNAZ RODRIGUEZ [facility] 10 [id number] Univers 13:00:00 13:00:00 MEHNAZ RODRIGUEZ i ty of [facility] 2021-01-13 2021-01-13 [employer], Adc Lab [facility] 1.2.840.114 [id number] Univers 11:26:25 11:41:25 Visit Joon Woody 350.1.13. 10 ity of [place] [phone] Az dical NAL 353 [facility] 2021-01-13 2021-01-13 [employer] 2, Adc Lab [facility] 1.2.840.114 [id number] Univers 11:26:25 11:32:58 Visit Joon Woody 350.1.13. 10 ity of [facility] [place] [phone] Az dical NAL 353 [facility] 2021-01-13 2021-01-13 Outpatient R ANNALISE [facility] [id number] Univers 11:30:00 11:30:00 SENDIL ity [facility] 2021-01-13 2021-01-13 Office Annalise [facility] 1.2.840.114 [id number] Univers 10:00:25 11:07:05 Visit Joon HANDY 350.1.13.10 ity of [facility] [place] [phone] Az dical NAL 059 [facility] 2021-01-13 2021-01-13 Outpatient R ANNALISE [facility] [id number] Univers 10:00:00 11:07:05 SENDIL ity [facility] 2021-01-13 2021-01-13 Refill Annalise [facility] 1.2.840.114 [id number] Univers 00:00:00 00:00:00 Joon HANDY 350.1.13.10 ity of [facility] [place] [phone] Az dical NAL 059 [facility] 2021-01-11 2021-01-11 Outpatient R ADITYA [facility] [id number] Univers 10:45:00 23:59:00 LUIS ity of [facility] 2021-01-11 2021-01-11 [facility] 1.2.840.114 [id number] Univers 10:45:00 23:59:00 Encounter Luis HEALTH 350.1.13.10 ity of [place]2.[place] [phone] [address] OFFICE BUILDING 2021-01-11 2021-01-11 Hospital [facility] 1.2.840.114 [id number] Univers 09:35:03 23:59:00 Encounter Sendil K.H. HEALTH 350.1.13.10 ity of [place] [id number] [address] OFFICE BUILDING 2021-01-10 2021-01-10 Refbrittani GonsalezGALLUP INDI[facility] 1.2.840.114 [id number] Univers 00:00:00 00:00:00 Jose Juan HEALTH 350.1.13.10 it y of [place] 4.2.7.2.686 Oren as OLIVIER?BLEA [phone] Az paulette R[address] OFFICE BUILDING 2021-01-07 2021-01-07 Transition BHAVESH Henry 1.2.840.114 [id number] Univers 00:00:00 00:00:00 of Care Beata FLORES 350.1.13.10 it y of [place].2.[place] [id number] [facility] [address] 2021-01-05 2021-01-06 Outpatient X CRISTEL [facility] AVNI [id number] Univers 10:26:00 12:42:00 MOE itapril of [facility] 2021-01-05 2021-01-06 Emergency Kash Jessica [facility] 1.2.840. 114 [id number] Univers 10:26:00 12:42:00 Moe Solorio 350.1.13.10 it[place] of [place] [phone] [facility] [address] 2021-01-05 2021-01-06 Outpatient X [facility] AVNI [id number] Univers 10:26:00 12:42:00 MOE [facility] 2021-01-06 2021-01-06 Telephone [facility] 1.2.795.605 [id number] Univers 00:00:00 00:00:00 Luis HANDY 350.1.13.10 i ty [facility] [place] [id number] [address] 2021-01-05 2021-01-05 Outpatient X CRISTEL [facility] [id number] Univers 10:26:00 10:26:00 MOE [facility] 2021-01-05 2021-01-05 Telephone [facility] 1.2.701.091 [id number] Univers 00:00:00 00:00:00 Joon Handy 350.1.13.10 ity of [place].2.[place] [phone] [address] 2021-01-05 2021-01-05 [facility] 1.2.813.500 [id number] Univers 00:00:00 00:00:00 Joon HANDY 350.1.13.10 ity [facility] 4[place]2.7.2.[place] [id number] [address] 2021-01-04 2021-01-04 Outpatient R [facility] [id number] Univers 13:00:00 15:09:07 JOSE JUAN [facility] 2021-01-04 2021-01-04 Office [facility] 1.2.840.114 [id number] Univers 12:39:25 15:09:[address] [facility] 350.1.13.10 it y of [place] 4.2.7.2.686 Oren as OLIVIER?BLEA [id number] Az paulette [address] 2021-01-04 2021-01-04 Outpatient R [facility] [id number] Univers 13:00:00 13:00:00 JSOE JUAN [facility] 2020-12-30 2020-12-30 Outpatient R MEHNAZ RODRIGUEZ [facility] 10 [id number] Univers 10:00:00 10:00:00 MEHNAZ RODRIGUEZ i ty of [facility] 2020-12-27 2020-12-28 Hospital Gustabo Vickey [facility] 1. 2.840.114 [id number] Univers 15:44:00 17:25:00 Encounter [facility] 350.1.13.10 ity of Provider, [facility] Ep Lab [place] 4.2.7.2.686 [place] [facility], [facility] Ep Lab Franco [phone] ([facility]) 2020-12-27 2020-12-27 Outpatient R LOYD [facility] [id number] Univers 13:00:00 13:00:00 VICKEY ARREOLA it y of [facility] 2020-12-24 2020-12-24 Pre-Anesth Call, [facility] 1.2.840.114 [id number] Univers 08:35:00 08:40:00 esia [facility] Phone HEALTH 350.1.13.10 ity of [place]2.7.2.[place] [id number] [facility] [address] ([facility]) 2020-12-24 2020-12-24 Telephone Aditya [facility] 1.2.790.990 [id number] Univers 00:00:00 00:00:00 [facility] 350.1.13.10 it y of [place] Franco [phone] [facility] [address] ([facility]) 2020-12-22 2020-12-22 Patient Sunshine [facility] 1.2.840.114 [id number] Univers 00:00:00 00:00:00 Secure Msg Jose Juan HEALTH 350.1.13.10 ity of [place] 4.2.7.2.686 Oren as PROFESSIO [phone] [place] [address] [address] OFFICE BUILDING ONE 2020-12-21 2020-12-21 Hospital Aditya [facility] 1.2.840.114 [id number] Univers 10:26:41 23:59:00 Encounter Provider, Braulio Ep Lab Health 350.1.1 3.10 ity of [place] [phone] [address] ([facility]) 2020-12-21 2020-12-21 Outpatient R ADITYA [facility] [id number] Univers 13:00:00 13:00:00 LUIS ity of [facility] 2020-12-20 2020-12-20 Telephone [facility] 1.2.030.040 [id number] Univers 00:00:00 00:00:00 Luis Health 350.1.13.10 it y of [place] [phone] [address] ([facility]) 2020-12-17 2020-12-17 [place] [facility] 1.2.869.583 [id number] Univers 00:00:00 00:00:00 Luis [place] 350.1.13.10 i ty of [place] [phone] [place] 0[address]89 [facility] 2020-12-17 2020-12-17 [place] [facility] 1.2.477.044 [id number] Univers 00:00:00 00:00:00 Luis Stil[place] 350.1.13.10 i ty of [place].2.[place] [phone] [facility] 059 [facility] 2020-12-14 2020-12-14 [facility] 1.2.840.114 [id number] Univers 11:20:00 23:59:00 Encounter Joon [place] 350.1.13.10 ity of [place] 4.2.7.2.[place] [phone] [facility] 844 [facility] 2020-12-14 2020-12-14 [facility] 1.2.840.114 [id number] Univers 11:25:20 12:18:32 Visit Luis [place] 350.1.13.10 i ty of [place] 4.2.7.2.[place] [phone] Az dical nal 059 [facility] 2020-12-14 2020-12-14 Outpatient R ADITYA [facility] [id number] Univers 11:40:00 11:40:00 LUIS ity [facility] 2020-12-14 2020-12-14 Outpatient R ANNALISE [facility] [id number] Univers 00:00:00 00:00:00 SENDIL ity [facility] 2020-12-09 2020-12-09 Telephone [facility] 1.2.051.964 [id number] Univers 00:00:00 00:00:00 Luis [place]il[place] 350.1.13.10 i ty of [place] 4[place].2.[place] [phone] [place] 033789 [facility] 2020-12-07 2020-12-07 [facility] [id number] Univers 13:20:00 13:20:00 LUIS ity [facility] 2020-12-07 2020-12-07 Office [facility] 1.2.840.114 [id number] Univers 10:37:26 11:17:10 Visit Luislashonda Handy 350.1.13.10 i ty of [place] 4[place]2.7.2.[place] [phone] [place] 033789 [facility] 2020-12-07 2020-12-07 Orders Doctor TOO 1.2.840.114 [id number] Univers 00:00:00 00:00:00 Only Unassigned, CADE 350.1.13.10 ity of [place] [facility] 4.2.7.2.686 Oren as [phone] [address] 2020-12-06 2020-12-06 [employer]r 2, Adc Lab [facility] 1.2.840.114 [id number] Univers 15:12:24 15:27:24 Visit Joon Woody 350.1.13. 10 ity of [place] 4[place]2.[place].2.[place] [phone] [facility] 353 [facility] 2020-12-06 2020-12-06 Office [facility] 1.2.840.114 [id number] Univers 13:59:53 15:05:54 Visit Joon Handy 350.1.13.10 ity of [place] 4[place]2.[place].2.[place] [phone] Az paulette nal 059 [facility] 2020-12-06 2020-12-06 [facility] [id number] Univers 14:00:00 14:00:00 SENDIL ity [facility] 2020-12-06 2020-12-06 Telephone [facility] 1.2.657.295 [id number] Univers 00:00:00 00:00:00 Sendsissy Handy 350.1.13.10 ity of [place] [phone] Az paulette handley 9 [facility] 2020-12-03 2020-12-03 Orders Doctor TOO 1.2.840.114 [id number] Univers 00:00:00 00:00:00 Only Unassigned, CADE 350.1.13.10 ity of [place] [facility] 4.2.7.2.686 Oren as [phone] [address] 2020-12-02 2020-12-02 Outpatient R ANNALISE [facility] [id number] Univers 09:00:00 09:00:00 SENDIL ity [facility] 2020-11-30 2020-11-30 [facility] 1.2.840.114 [id number] Univers 09:03:20 23:59:00 Encounter Joon GARZA 350.1.13.10 ity of [facility] 4.2.7.2.[place] CENTER AT [phone] Az paulette VICTORY 805 [facility] 2020-11-30 2020-11-30 [facility] [id number] Univers 14:00:00 14:00:00 SENDIL ity [facility] 2020-11-30 2020-11-30 [facility] 1.2.840.114 [id number] Univers 09:00:00 09:02:00 Encounter Joon GARZA 350.1.13.10 ity of [place].2.7.2.[place] C[place] AT [phone] Me dical [facility] 805 [facility] 2020-11-30 2020-11-30 Outpatient R ANNALISE [facility] [id number] Univers 09:00:00 09:00:00 SENDIL ity [facility] 2020-11-22 2020-11-22 Hospital [facility] 1.2.840.114 [id number] Univers 08:38:20 23:59:00 Encounter Joon Handy 350.1.13.10 ity of [place].2.[place] [phone] Az dicaz nal 843 [facility] 2020-11-22 2020-11-22 [facility] [id number] Univers 09:00:00 09:00:00 SENDIL ity [facility] 2020-11-22 2020-11-22 [employer], Adc Lab [facility] 1.2.840.114 [id number] Univers 08:25:17 08:40:17 Visit Joon Woody 350.1.13. 10 [place] [phone] Az dical nal 353 [facility] 2020-11-22 2020-11-22 [place] [employer], Adc Lab [facility] 1.2.840.114 [id number] Univers 08:25:17 08:40:17 Visit Joon Woody 350.1.13. 10 [place] [phone] Az dical nal 353 [facility] 2020-11-17 2020-11-17 Patient Doctor TOO 1.2.840.114 [id number] Univers 00:00:00 00:00:00 Secure Msg Unassigned, CADE 350.1.13.10 ity of [place] [facility] 4.2.7.2.686 Oren as [phone] [facility] [address] 2020-11-17 2020-11-17 Orders Doctor TOO 1.2.840.114 [id number] Univers 00:00:00 00:00:00 Only Unassigned, CADE 350.1.13.10 [facility] of [place] [facility] 4.2.7.2.686 Oren as [phone] [address] 2020 2020 Orders Doctor TOO 1.2.840.114 [id number] Univers 00:00:00 00:00:00 Only Unassigned, CADE 350.1.13.10 [facility] of [place] [facility] 4.2.7.2.686 Oren as [phone] [address] 2020-11-11 2020-11-11 Telephone [facility] [id number] Univers 00:00:00 00:00:00 Joon Handy 350.1.13.10 [place] [phone] Az dicaz nal [address] [place] [address] 2020-11-11 2020-11-11 Telephone [facility] [id number] [id number] Univers 00:00:00 00:00:00 Joon Handy 350.1.13.10 [place] [phone] Az dicaz nal [address] [place] [address] 2020-11-11 2020-11-11 Orders Doctor GAGE 1.2.840.114 [id number] Univers 00:00:00 00:00:00 Only Unassigned, CADE 350.1.13.10 ity of [place] [facility] 4.2.7.2.686 O[place] as [phone] [address] 2020-11-10 2020-11-10 Telephone [facility] 1.2.249.562 [id number] Univers 00:00:00 00:00:00 Joon Handy 350.1.13.10 [place] [phone] Az dical nal 059 [facility] 2020-11-10 2020-11-10 [facility] CENTER [id number] [facility] 00:00:00 00:00:00 Joon Handy 350.1.13.10 [place] [phone] Az dical nal 059 [facility] 2020-11-04 2020-11-04 [employer] 2, Adc Lab [facility] 1.2.840.[id number] [facility] 10:03:16 10:18:16 Visit Joon Woody 350.1.13. 10 [place] [phone] Az dical nal 353 [facility] 2020-11-04 2020-11-04 [employer] 2, [facility] Lab [facility] 1.2.840.[id number] [facility] 10:03:16 10:18:16 Visit Joon Woody 350.1.13. 10 [place] [phone] Az dical nal 353 [facility] 2020-11-04 2020-11-04 [facility] 1.2.840.[id number] [facility] 09:06:37 09:51:58 Visit Joon Handy 350.1.13.10 [place] [phone] Az dical nal 059 [facility] 2020-11-04 2020-11-04 [facility] 1.[facility].840.[id number] [place] [address] 09:06:37 09:51:58 Visit Joon Handy 350.1.13.10 [place] [phone] Az dical nal 059 [facility] 2020-11-04 2020-11-04 Outpatient R ANNALISE [facility] [id number] Univers 09:00:00 09:51:58 SENDIL ity of [facility] 2020-11-04 2020-11-04 Outpatient R ANNALISE [facility] [id number] Univers 09:00:00 09:51:58 SENDIL ity of [facility] 2020-11-04 2020-11-04 Outpatient R WOODY [facility] [id number] Univers 09:00:00 09:00:00 SENDIL ity [facility] 2020-11-03 2020-11-03 [employer] 2, Adc Lab [facility] 1.2.840.114 [id number] Univers 14:33:53 14:48:53 Visit Nicole Womack 350.1.13.10 [place] [phone] Az dical nal 353 [facility] 2020-11-03 2020-11-03 [employer] 2, Adc Lab [facility] 1.2.840.114 [id number] Univers 14:33:53 14:48:53 Visit Nicole Womackton 350.1.13.10 [place] [phone] Az dical nal 353 [facility] 2020-11-03 2020-11-03 Office [facility] 1.2.840.114 [id number] Univers 13:46:00 14:31:02 Visit Nicole Handy 350.1.13.10 [place] [phone] Az dical nal 204 [facility] 2020-11-03 2020-11-03 Office Gramm, [facility] 1.2.840.114 [id number] Univers 13:46:00 14:31:02 Visit Nicole Handy 350.1.13.10 [place] [phone] Az dical nal 204 [facility] 2020-11-03 2020-11-03 Outpatient R VU [facility] [id number] Univers 14:00:00 14:00:00 NICOLE ity of [facility] 2020-11-03 2020-11-03 Orders Doctor TOO 1.2.840.114 [id number] Univers 00:00:00 00:00:00 Only Unassigned, CADE 350.1.13.10 ity of [place] [facility] 4.2.7.2.686 Oren as [phone] [facility] [address] 2020-11-03 2020-11-03 Orders Doctor TOO 1.2.840.114 [id number] Univers 00:00:00 00:00:00 Only Unassigned, CADE 350.1.13.10 ity of [place] [facility] 4.2.7.2.686 Oren as [phone] [facility] [address] 2020-10-27 2020-10-27 Patient Doctor TOO 1.2.840.114 [id number] Univers 00:00:00 00:00:00 Secure Msg Unassigned, CADE 350.1.13.10 ity of [place] [facility] 4.2.7.2.686 Oren as [phone] [facility] [address] 2020-10-26 2020-10-26 Patient Doctor TOO 1.2.840.114 [id number] Univers 00:00:00 00:00:00 Secure Msg Unassigned, CADE 350.1.13.10 ity of [place] [facility] 4.2.7.2.686 Oren as [phone] [facility] [address] 2020-10-23 2020-10-23 Emergency [facility] 1.2.378.471 [id number] Univers 11:27:00 13:55:00 Jessica Handy 350.1.13.10 i [place] [phone] [facility] [address] 2020-10-22 2020-10-22 Office Sunshine [facility] 1.2.840.[id number] [place] [address] 08:27:33 09:25:24 Visit [facility] 350.1.13.10 it y of [place] 4.2.7.2.686 Oren as Professio [phone] Me dical nal [address] 2020-10-22 2020-10-22 Outpatient Flornece GONSALEZ, [facility] [id number] Univers 08:30:00 08:30:00 JOSE JUAN ity of [facility] 2020-10-16 2020-10-16 Emergency [facility] [id number] Univers 10:57:00 13:00:00 Cierra Sly Handy 350.1.13.10 ity of [place] 4.2.7.2.686 [facility] [phone] [facility] [address] 2020-10-16 2020-10-16 Orders Doctor TOO 1.2.840.114 [id number] Univers 00:00:00 00:00:00 Only Unassigned, CADE 350.1.13.10 ity of [place] [facility] 4.2.7.2.686 Oren [phone] [facility] [address] 2020-05-03 2020-05-03 Outpatient Young_J MMG MMG [id number] 021 [place] 10:34:00 10:34:00 0222 [facility] Results Test Description Test Time Test Comments Results Result Comments Source Prothrombin time with INR 2022-12-12 11:10:00 Test Item Value Reference Range Interpretation Comme nts INR (test code = 6301-6) 2.8 0.9-1.2 H Ref erence interval is for non-anticoagula ozzie patients.Sugges ozzie INR therapeutic ran ge for Vitamin Kantago nist therapy: Standa rd Dose (moderate inten sity therapeutic ran ge): 2.0 - 3.0 Higher inte nsity therapeutic ran ge 2.5 - 3.5 Prothrombin time (test 27.4 See_Comment H [Aut omated message] The code = 5902-2) system which generated this result transmit ozzie reference range : 9.1 - 12.0 sec. The refere nce range was not used to interpret this result as normal/abnormal . NIKA (test code = NIKA) Performed at: [facility] [id number] Director: Skyler Clayton MD, Phone: [phone] Lab Interpretation (test Abnormal code = 34596-2) [facility] [id number] 16:10:00 Test Item Value Reference Range Interpretation Comments Glucose (test code = 210 mg/dL 70-99 H 2345-7) BUN (test code = 14 mg/dL 8-27 3094-0) Creatinine (test code 0.88 mg/dL 0.76-1.27 = 2160-0) eGFR (test code = 93 mL/min/1.73 >=59 57440-5) BUN/creatinine ratio 16 10-24 (test code = 3097-3) Sodium (test code = 140 mmol/L 752-963 0910-2) Potassium (test code 3.9 mmol/L 3.5-5.2 = 2823-3) Chloride (test code = 104 mmol/L 96-106 2075-0) CO2 (test code = 23 mmol/L 20-29 2027-9) Calcium (test code = 8.9 mg/dL 8.6-10.2 11926-3) Protein (test code = 6.6 g/dL 6.0-8.5 2885-2) Albumin (test code = 4.0 g/dL 3.9-4.9 1751-7) Globulin, total (test 2.6 g/dL 1.5-4.5 code = 13888-7) Albumin/globulin 1.5 1.2-2.2 ratio (test code = 1759-0) Total bilirubin (test 0.6 mg/dL 0.0-1.2 code = 1975-2) Alkaline phosphatase 108 See_Comment [Autom ated (test code = 6768-6) message ] The system which generated this result transmitted reference range : 44 - 121 IU/L. The reference range was not used to interpr et this result as normal/abnormal . AST (test code = 25 See_Comment [Automated 1919-) message] The system which generated this result transmitted reference range : 0 - 40 IU/L. Th e reference range was not used to interpret this result as normal/abnormal . ALT (test code = 19 See_Comment [Automated 1741-08) message] The system which generated this result transmitted reference range : 0 - 44 IU/L. Th e reference range was not used to interpret this result as normal/abnormal . NIKA (test code = NIKA) Performed at: 01 - [facility] [address] [id number] Director: Skyler Clayton MD, Phone: [phone] Lab Interpretation Abnormal (test code = 01443-2) [facility] natriuretic [id number] 16:10:00 Test Item Value Reference Range Interpretation Comments BNP (test code 11.2 pg/mL 0.0-100.0 Siemens ADVIA = 61785-4) Centaur XP methodology NIKA (test code Performed at: - = NIKA) [facility] [address] [id number] Director: Skyler Clayton MD, Phone: [phone] [facility] and xymzegimfyfe8400-24-06 16:10:00 Test Item Value Reference Range Interpretation Comments WBC (test code = 7.0 See_Comment [Automated 8152-2) message] The system which generated this result transmitted reference range : 3.4 - 10.8 x10E3/uL. The reference range was not used to interpret this result as normal/abnormal . RBC (test code = 4.81 See_Comment [Automated 221-8) message] The system which generated this result transmitted reference range : 4.14 - 5.80 x10E6/uL. The reference range was not used to interpret this result as normal/abnormal . HGB (test code = 14.4 g/dL 13.0-17.7 718-7) HCT (test code = 43.8 % 37.5-51.0 4544-3) MCV (test code = 91 fL 79-97 787-2) MCH (test code = 29.9 pg 26.6-33.0 785-6) MCHC (test code = 32.9 g/dL 31.5-35.7 786-4) RDW (test code = 12.5 % 11.6-15.4 788-0) Platelet count (test 104 See_Comment L [Autom ated code = 657-3) message] The system which generated this result transmitted reference range : 150 - 450 x10E3/uL. The reference range was not used to interpret this result as normal/abnormal . Neutrophils (test 60 % Not Estab. code = 770-8) Lymphocytes (test 30 % Not Estab. code = 736-9) Monocytes (test code 6 % Not Estab. = 5905-5) Eosinophils (test 3 % Not Estab. code = 713-8) Basophils (test code 1 % Not Estab. = 706-2) Neutrophils, absolute 4.2 See_Comment [Auto mated (test code = 751-8) message] The system which generated this result transmitted reference range : 1.4 - 7.0 x10E3/uL. The reference range was not used to interpret this result as normal/abnormal . Lymphocytes, absolute 2.1 See_Comment [Auto mated (test code = 731-0) [...] this result as normal/abnormal . Eosinophils, absolute 0.2 See_Comment [Auto mated (test code = 711-2) [...] 0 % Not Estab. (test code = 54041-6) Immature 0.0 See_Comment [Automated granulocytes, message] The absolute (test code = system which 59689-3) generated this result transmitted reference range : 0.0 - 0.1 x10E3/uL. The reference range was not used to interpret this result as normal/abnormal . NIKA (test code = NIKA) Performed at: [facility] [id number] Director: Skyler Clayton MD, Phone: [phone] Lab Interpretation Abnormal (test code = 05510-3) [place] [address] [id number] 15:49:09 Test Item Value Reference Range Interpretation Comments Ventricular rate (test 80 code = 253) Atrial rate (test code 80 = 255) SC interval (test code 98 = 266) QRSD interval (test 152 code = 260) QT interval (test code 436 = 264) QTC interval (test code 502 = 265) P axis 1 (test code = 39 267) QRS axis 1 (test code = -81 268) T wave axis (test code 81 = 270) EKG impression (test Electronic ventricular code = 273) pacemaker-In automated comparison with ECG of 31-JUL-2022 15:03,-premature ventricular complexes are no longer present-Vent. rate has decreased BY 4 BPM- [facility] [id number] 15:41:00 Test Item Value Reference Range Interpretation Comments Glucose (test code = 183 mg/dL 70-99 H 2345-7) BUN (test code = 15 mg/dL 8-27 3094-0) Creatinine (test code 0.82 mg/dL 0.76-1.27 = 2160-0) eGFR (test code = 95 mL/min/1.73 >=59 03796-6) BUN/creatinine ratio 18 10-24 (test code = 3097-3) Sodium (test code = 143 mmol/L 450-629 6935-2) Potassium (test code 4.3 mmol/L 3.5-5.2 = 2823-3) Chloride (test code = 102 mmol/L 96-106 2075-0) CO2 (test code = 26 mmol/L 20-29 2027-9) Calcium (test code = 9.4 mg/dL 8.6-10.2 99910-3) Protein (test code = 6.8 g/dL 6.0-8.5 2885-2) Albumin, S (test code 4.0 g/dL 3.8-4.8 = 1751-7) Globulin, total (test 2.8 g/dL 1.5-4.5 code = 30731-4) Albumin/globulin 1.4 1.2-2.2 ratio (test code = 1759-0) Total bilirubin (test 0.6 mg/dL 0.0-1.2 code = 1975-2) Alkaline phosphatase 108 See_Comment [Autom ated (test code = 6768-6) message ] The system which generated this result transmitted reference range : 44 - 121 IU/L. The reference range was not used to interpr et this result as normal/abnormal . AST (test code = 38 See_Comment [Automated 1919-8) message] The system which generated this result transmitted reference range : 0 - 40 IU/L. Th e reference range was not used to interpret this result as normal/abnormal . ALT (test code = 21 See_Comment [Automated 1741-6) message] The system which generated this result transmitted reference range : 0 - 44 IU/L. Th e reference range was not used to interpret this result as normal/abnormal . NIKA (test code = NIKA) Performed at: [address] [id number] Director: Skyler Clayton MD, Phone: [phone] Lab Interpretation Abnormal (test code = 38828-2) [facility] [id number] 15:41:00 Test Item Value Reference Range Interpretation Comments Cholesterol (test code = 122 mg/dL 659-827 9728-3) Triglycerides (test code 209 mg/dL 0-149 H = 2571-8) HDL cholesterol (test 50 mg/dL >=39 code = 2085-9) VLDL cholesterol drew 33 mg/dL 5-40 (test code = 93629-7) LDL Chol Calc (NIH) (test 39 mg/dL 0-99 code = 60973-1) Non-HDL cholesterol (test 72 mg/dL 0-129 code = 05922-7) NIKA (test code = NIKA) Performed at: [address] [id number] Director: Skyler Clayton MD, Phone: [phone] Lab Interpretation (test Abnormal code = 75467-1) [facility] nat[facility]tic [id number] 15:41:00 Test Item Value Reference Range Interpretation Comments BNP (test code 27.5 pg/mL 0.0-100.0 Siemens ADVIA = 90128-7) Centaur XP methodology NIKA (test code Performed at: - = NIKA) [place] [address] [place], [place] [id number] Director: Skyler Clayton MD, Phone: [phone] [facility] with platelet and pmgynestwbus6099-75-35 15:41:00 Test Item Value Reference Range Interpretation Comments WBC (test code = 6.5 See_Comment [Automated 0993-2) message] The system which generated this result transmitted reference range : 3.4 - 10.8 x10E3/uL. The reference range was not used to interpret this result as normal/abnormal . RBC (test code = 4.40 See_Comment [Automated 609-8) message] The system which generated this result [...] 0 % Not Estab. (test code = 46577-8) Immature 0.0 See_Comment [Automated granulocytes, message] The absolute (test code = system which 90394-9) generated this result transmitted reference range : 0.0 - 0.1 x10E3/uL. The reference range was not used to interpret this result as normal/abnormal . NIKA (test code = NIKA) Performed at: [facility] [id number] Director: Skyler Clayton MD, Phone: [phone] Lab Interpretation Abnormal (test code = 59279-4) [facility] [id number] 15:41:00 Test Item Value Reference Range Interpretation Comments Cholesterol (test code = 122 mg/dL 171-363 2390-3) Triglycerides (test code 209 mg/dL 0-149 H = 2571-8) HDL cholesterol (test 50 mg/dL >=39 code = 2085-9) VLDL cholesterol drew 33 mg/dL 5-40 (test code = 16986-6) LDL Chol Calc ([facility]) (test 39 mg/dL 0-99 code = 13008-6) Non-HDL cholesterol (test 72 mg/dL 0-129 code = 83623-3) NIKA (test code = NIKA) Performed at: 01 - [address] [id number] Director: Skyler Clayton MD, Phone: [phone] Lab Interpretation (test Abnormal code = 00500-1) [facility] 12 [id number] 02:53:39 Test Item Value Reference Range Interpretation [...] ECGs available-Electronical ly Signed By Rebecca GARCIA, [facility] ([id number]) on 07/31/2022 9:53:37 PM [facility] CenterProthrombin Time / [id number] 17:13:58 Test Item Value Reference Range Interpretation Comments PROTIME PATIENT (test See_Comment H [Auto mated message] code = 5964-2) The system [employer] ich generated this result transmitted ref erence range: 12.0 - 1 4.7 Seconds. The reference range was not used to int erpret this result as normal/abnormal . INR (test code = 6301-6) Nor mal INR <1.1; Warfarin Therap eutic range 2.0 to 3. 0 or 2.5 to 3.5, dep ending upon the indica tions. Lab Interpretation (test Abnormal code = 81781-2) [facility] [id number] 17:03:36 Test Item Value Reference Range Interpretation Comments NT-proBNP (test code 137 pg/mL See_Comment H [Autom ated = 1233894460) message] The system which generated this result transmitted reference range : <=125. The reference range was not used to interpret this result as normal/abnormal . NIKA (test code = NIKA) Biotin has been reported to cause a negative bias, interpret results relative to patient's use of biotin. Lab Interpretation Abnormal (test code = 37501-6) [facility] (NA, K, CL, CO2, GLUCOSE, BUN, CREATININE, CA)2022-02-22 16:57:08 Test Item Value Reference Range Interpretation Comments NA (test code = 139 mmol/L 135-145 3796831963) K (test code = 3.2 mmol/L 3.5-5.0 L 4149988163) CL (test code = 97 mmol/L 98-108 L 0312694578) CO2 TOTAL (test code = 32 mmol/L 23-31 H 1496607286) AGAP (test code = 2-16 4781849297) BUN (test code = 17 mg/dL 7-23 5467304326) GLUCOSE (test code = 333 mg/dL 70-110 H 8371406817) CREATININE (test code = 0.84 mg/dL 0.60-1.25 2248869043) CALCIUM (test code = 8.7 mg/dL 8.6-10.6 4442242756) eGFR (test code = mL/min/1.73m2 8071426741) NIKA (test code = NIKA) Association of [...] tests). Lab Interpretation Abnormal (test code = 29062-3) [facility] SARS-COV-2 ANTIGEN (BINAX NOW)2022-02-01 17:19:00 Test Item Value Reference Range Interpretation Comments POCT SARS-COV-2 ANTIGEN (test Not Detected Not Detected code = 19739-5) On board controls acceptable Yes with C Line (test code = 3574) [facility] SARS-COV-2 ANTIGEN (BINAX NOW)2022-02-01 17:19:00 Test Item Value Reference Range Interpretation Comments POCT SARS-COV-2 ANTIGEN (test Not Detected Not Detected code = 41944-5) On board controls acceptable Yes with C Line (test code = 3574) [facility] CenterTR[facility] [id number] 02:24:20 Test Item Value Reference Interpretation Comments Range TROPONIN I (test 0.007 ng/mL See_Comment [Automated code = 6758997410) message] The system which generated this result [...] biotin. Lab Interpretation Normal (test code = 03741-8) [facility] [id number] 02:21:18 Test Item Value Reference Range Interpretation Comments NT-proBNP (test code 79 pg/mL See_Comment [Autom ated = 8200719061) message] The system which generated this result transmitted reference range : <=125. The reference range was not used to interpret this result as normal/abnormal . NIKA (test code = NIKA) Biotin has been reported to cause a negative bias, interpret results relative to patient's use of biotin. Lab Interpretation Normal (test code = 17223-4) [facility]2022-11-18 02:12:18 Test Item Value Reference Range Interpretation Comments MAGNESIUM (test code = 6243114038) 1.9 mg/dL 1.7-2.4 Lab Interpretation (test code = Normal 71965-1) [facility] [place] [place]. METABOLIC PANEL (91956)2022-01-27 02:11:58 Test Item Value Reference Range Interpretation Comments NA (test code = 138 mmol/L 135-145 4190184785) K (test code = 3.4 mmol/L 3.5-5.0 L 7522980600) CL (test code = 97 mmol/L 98-108 L 5154715136) CO2 TOTAL (test code = 36 mmol/L 23-31 H 3156118322) AGAP (test code = 2-16 1728216964) BUN (test code = 17 mg/dL 7-23 9537177323) GLUCOSE (test code = 267 mg/dL 70-110 H 4634420812) CREATININE (test code = 0.96 mg/dL 0.60-1.25 4518728834) TOTAL BILI (test code = 0.9 mg/dL 0.1-1.1 0999215756) CALCIUM (test code = 9.1 mg/dL 8.6-10.6 4277163113) T PROTEIN (test code = 6.9 g/dL 6.3-8.2 0753009732) ALBUMIN (test code = 4.1 g/dL 3.5-5.0 3600902324) ALK PHOS (test code = 125 U/L 34-122 H 0106113708) ALTv (test code = 24 U/L 5-50 1742-6) AST(SGOT) (test code = 46 U/L 13-40 H 4272151365) eGFR (test code = mL/min/1.73m2 3920687449) NIKA (test code = NIKA) Association of [...] tests). Lab Interpretation Abnormal (test code = 48950-1) [facility] WITH [id number] 01:37:37 Test Item Value Reference Range Interpretation Comments WBC (test code = See_Comment [Automated 3686-2) message] The sy stem which generated this result transmitted reference range : 4.20 - 10.70 10*3/?L. The reference range was not used to interpret this result as normal/abnormal . RBC (test code = See_Comment L [Automated 989-8) message] The sy stem which generated this [...] RDW-SD (test code = 44.4 fL 38.5-51.6 06894-1) RDW-CV (test code = 13.2 % 12.1-15.4 788-0) PLT (test code = See_Comment L [Automated 777-3) message] The sy stem which generated this result transmitted reference range : 150 - 328 10*3/ ?L. The reference r carl was not used to interpret this result as normal/abnormal . MPV (test code = 10.7 fL 9.8-13.0 82809-5) IPF % (test code = 3.9 % 1.2-10.7 Platelet count 1099303159) measured by fluorescence method. NRBC/100 WBC (test See_Comment [Automat ed code = 3269859837) message] The system which generated this result transmitted reference range : 0.0 - 10.0 /100 WBCs. The refer ence range was not u sed to interpret th is result as normal/abnormal . NRBC x10^3 (test code See_Comment [Auto mated = 7438439823) message] The s ystem which generated this result transmitted reference range : 10*3/?L. The reference range was not used to interpret this result as normal/abnormal . GRAN MAT (NEUT) % 62.5 % (test code = 770-8) IMM GRAN % (test code 0.30 % = 1043616437) LYMPH % (test code = 27.4 % 736-9) MONO % (test code = 6.7 % 5905-5) EOS % (test code = 2.4 % 713-8) BASO % (test code = 0.7 % 706-2) GRAN MAT x10^3(ANC) 4.35 10*3/uL 1.99-6.95 (test code = 4710392264) IMM GRAN x10^3 (test 0.00-0.06 code = 5656826898) LYMPH x10^3 (test code 1.91 10*3/uL 1.09-3.23 = 731-0) MONO x10^3 (test code 0.47 10*3/uL 0.36-1.02 = 742-7) EOS x10^3 (test code = 0.17 10*3/uL 0.06-0.53 711-2) BASO x10^3 (test code 0.05 10*3/uL 0.01-0.09 = 704-7) Lab Interpretation Abnormal (test code = 14235-9) [facility] HEMOGLOBIN A1C [id number] 20:05:00 Test Item Value Reference Range Interpretation Comments POCT HBA1C (test code = 4548-4) 6.3 % 4-6 A Lab Interpretation (test code = Abnormal 77116-3) [facility] [id number] 13:12:00Surgical Pathology Report Case: [id number] Authorizing Provider: Donn Mahoney MD Collected: 07/18/2016 0909 Ordering Location: [facility] PERIOPERATIVE Received: 07/18/2016 1120 SERVICES Pathologist:Aaron Chang MD Specimen: Soft Tissue, Other, id only explant hardware INTRATHECAL PUMP, REMOVAL: DOBIE MAN CONSISTENT WITH INTRATHECAL PUMP IDENTIFIED (GROSS DIAGNOSIS ONLY)SD/CG/pl Signing Pathologist Direct Phone Line: [phone] signed by Aaron Chang MD on 07/31/2016 at 1:12 [id number] painHardware, intrathecal pumpThe specimen is received in fluidless container labeled with the patient's information labeled "intrathecal pump" and consists of a programmable pumpmeasuring 8 x 7 x 1.5 cm with attached white tubing measuring 50 cm in length x 0.2 cm in diameter. Serial number is [id number]. The specimen is submitted for gross identification. [...] SOURCE(BEAKER) (test code = 2795) BASIC METABOLIC [id number] 13:01:00 Test Item Value Reference Range Interpretation [...] NOT APPLICABLE FOR DIALYSIS PATIEN TS. PROTHROMBIN TIME/[id number] 12:56:00 Test Item Value Reference Range Interpretation Comments PROTIME (BEAKER) (test code = 13.5 seconds 11.7-14.7 759) INR (BEAKER) (test code = 370) 1.0 <=5.9 RECOMMENDED COUMADIN/WARFARIN INR THERAPY RANGESSTANDARD DOSE: 2.0 - 3.0 Includes: PROPHYLAXIS for venous thrombosis, systemic embolization; TREATMENT for venous thrombosis and/or pulmonary embolus.HIGH RISK: Target INR is 2.5-3.5 for patients with mechanical heart valves.[id number] 12:56:00 Test Item Value Reference Range Interpretation Comments PARTIAL THROMBOPLASTIN TIME 32.0 seconds 22.5-36.0 (BEAKER) (test code = 760) CBC W/PLT COUNT & AUTO [id number] 12:48:00 Test Item Value Reference Range Interpretation [...]
[2022-12-17 11:44] LABS: Absolute Lymphocytes (CBC) 2.8 K/uL (0.7-4.9); Hematocrit 45.1 % (39.6-49.0); MCV 94.6 fL (80-100); MPV 7.8 fL (7.6-11.3); Platelets 136 thou/uL (152-406); RBC Red Blood Cell Count 4.77 M/uL (4.33-5.43)
--- NOTE | 2022-12-17 12:00 | RAD REPORT ---
EXAM DESCRIPTION: RAD - Chest Single View - 12/17/2022 11:53 am CLINICAL HISTORY: pacemaker issue COMPARISON: Chest Single View dated 07/14/2022; Chest Single View dated 06/10/2022 FINDINGS: Lines: None. Lungs: No evidence of edema or pneumonia. Pleural: No significant pleural effusions or pneumothorax. Cardiac: The heart size is within normal limits. Mediastinum: Within normal limits. Bones: No acute fractures. Other: Pacemaker. IMPRESSION: No acute cardiopulmonary disease.
[2022-12-17 12:03] LABS: Potassium 3.4 mEq/L (3.5-5.1); Troponin High Sensitivity 7.6 pg/mL (<58.9)
--- NOTE | 2022-12-17 13:42 | EDPHYS ---
Physician Documentation [facility] Name: Jayson Joe Sr Age: 72 yrs Sex: Male : 1950 Arrival Date: 12/17/2022 Time: 11:02 Bed 2 Private MD: ED Physician Carter Appiah HPI: 12/17 13:54 This 72 yrs old Male presents to ER via Ambulatory with complaints of Pacemaker Went kb Off. 13:54 The patient has not experienced similar symptoms in the past. The patient has not kb recently seen a physician. 13:58 Pt reports he noticed a red flashing light on his monitor so he came to see what the kb problem was. Denies any symptoms. Historical: - Allergies: 11:18 PENICILLINS; ll1 - PMHx: 11:18 Cerebrovascular accident; Congestive heart failure; Chronic obstructive lung disease; ll1 pain pump; Gout; High Cholesterol; pacemaker/defibrilator; Hypertensive disorder; diabetes mellitus; Parkinson's disease; Stroke/TIA; - PSHx: 11:18 Appendectomy; back; Cholecystectomy; foot; dental; neck; ll1 - Immunization history:: Adult Immunizations up to date. - Social history:: Smoking status: Patient denies any tobacco usage or history of. ROS: 13:53 Constitutional: Negative for fever, chills, and weight loss, kb 13:53 All other systems are negative, Exam: 13:53 Constitutional: This is a well developed, well nourished patient who is awake, alert, kb and in no acute distress. Head/Face: Normocephalic, atraumatic. ENT: Moist Mucous membranes Cardiovascular: Regular rate Respiratory: Respirations even and unlabored. No increased work of breathing. Talking in full sentences Abdomen/GI: Soft, non-tender. No distention Skin: Warm, dry with normal turgor. Normal color. MS/ Extremity: Pulses equal, no cyanosis. Neurovascular intact. Full, normal range of motion. Neuro: Awake and alert, GCS 15, oriented to person, place, time, and situation. Moves all extremities. Normal gait. Vital Signs: 11:16 BP 147 / 75; Pulse 75; Resp 16; Temp 97.8; Pulse Ox 96% ; Weight 158.76 kg; Height 6 ll1 ft. 0 in. ; Pain 8/10; 12:24 BP 102 / 68; Pulse 80; Resp 15; Pulse Ox 99% on R/A; hb 13:38 BP 119 / 67; Pulse 81; Resp 16; Pulse Ox 98% on R/A; hb 11:16 Body Mass Index 47.47 (158.76 kg, 182.88 cm) ll1 11:16 Pain Scale: Adult ll1 MDM: 11:05 Patient medically screened. kb 13:53 Data reviewed: vital signs, nurses notes. kb 13:58 Differential diagnosis: abnormal EKG, acute myocardial infarction, coronary artery kb disease pacemaker malfunction. Counseling: I had a detailed discussion with the patient and/or guardian regarding the historical points, exam findings, and any diagnostic results supporting the discharge/admit diagnosis, lab results, radiology results, the need for outpatient follow up, a silk spreader, to return to the emergency department if symptoms worsen or persist or if there are any questions or concerns that arise at home. ED course: Pacemaker interrogated, no incidences reported. Tech reports light can indicated many things, but there was no recent event . 12/17 11:29 Order name: Basic Metabolic Panel; Complete Time: 12:05 kb 12/17 11:29 Order name: CBC with Diff; Complete Time: 11:52 kb 12/17 11:29 Order name: Troponin HS; Complete Time: 12:05 kb 12/17 11:29 Order name: XRAY Chest (1 view); Complete Time: 12:05 kb 12/17 11:29 Order name: EKG; Complete Time: 11:30 kb 12/17 11:29 Order name: Cardiac monitoring; Complete Time: 11:33 kb 12/17 11:29 Order name: EKG - Nurse/Tech; Complete Time: 11:33 kb 12/17 11:29 Order name: IV Saline Lock; Complete Time: 11:41 kb 12/17 11:29 Order name: Labs collected and sent; Complete Time: 11:41 kb 12/17 11:29 Order name: O2 Per Protocol; Complete Time: 11:33 kb 12/17 11:29 Order name: O2 Sat Monitoring; Complete Time: 11:33 kb Administered Medications: No medications were administered Disposition: 18:07 Co-signature as Attending Physician, Carter Appiah MD I reviewed the patient's care rn provided by the Advanced Practice Provider and agree with the diagnosis and treatment plan. Disposition Summary: 12/17/22 13:41 Discharge Ordered Notes: Location: Home kb Condition: Stable kb Diagnosis - Person with feared health complaint in whom no diagnosis is made kb Followup: kb - With: Emergency Department - When: As needed - Reason: Worsening of condition Followup: kb - With: Private Physician - When: 2 - 3 days - Reason: Recheck today's complaints, Continuance of care, Re-evaluation by your physician Discharge Instructions: - Discharge Summary Sheet kb - Nonspecific Chest Pain, Adult, [id number] kb Forms: - Medication Reconciliation Form kb - Thank You Letter kb - Antibiotic Education kb - Prescription Opioid Use kb - Patient Portal Instructions kb - Leadership Thank You Letter kb Signatures: Dispatcher [employer] EDMS Lu Caballero, CHEMICAL MANAGER-C CHEMICAL MANAGER-Carter Turner MD MD rn Lewis, Lynsay, RN RN ll1
--- NOTE | 2022-12-17 13:42 | ER ---
Nurse's Notes [facility] Name: Jayson Joe Sr Age: 72 yrs Sex: Male : 1950 Arrival Date: 12/17/2022 Time: 11:02 Bed 2 Private MD: Diagnosis: Person with feared health complaint in whom no diagnosis is made Presentation: 12/17 11:16 Chief complaint: Patient states: His pacemaker started transmitting this morning so ll1 they came in. Pacemaker did not fire per patient. reports congestion, fatigue, POE since yesterday. Coronavirus screen: Client denies travel out of the [place] in the last 14 days. congestion, fatigue, headache, muscle pain, Client presents with at least one sign or symptom that may indicate coronavirus-19. Standard/surgical mask placed on the client. Ebola Screen: Patient denies travel to an Ebola-affected area in the 21 days before illness onset. Initial Sepsis Screen: Does the patient meet any 2 criteria? No. Patient's initial sepsis screen is negative. Does the patient have a suspected source of infection? No. Patient's initial sepsis screen is negative. Risk Assessment: Do you want to hurt yourself or someone else? Patient reports no desire to harm self or others. Onset of symptoms was December 16, 2022. 11:16 Method Of Arrival: Ambulatory ll1 11:16 Acuity: LEO 3 ll1 Triage Assessment: 11:19 General: Appears in no apparent distress. Behavior is calm, cooperative, appropriate ll1 for age. General: Reports fatigue for. Pain: Complains of pain in head Pain currently is 8 out of 10 on a pain scale. Quality of pain is described as aching. EENT: Reports nasal congestion. Neuro: Reports headache. Historical: - Allergies: 11:18 PENICILLINS; ll1 - PMHx: 11:18 Cerebrovascular accident; Congestive heart failure; Chronic obstructive lung disease; ll1 pain pump; Gout; High Cholesterol; pacemaker/defibrilator; Hypertensive disorder; diabetes mellitus; Parkinson's disease; Stroke/TIA; - PSHx: 11:18 Appendectomy; back; Cholecystectomy; foot; dental; neck; ll1 - Immunization history:: Adult Immunizations up to date. - Social history:: Smoking status: Patient denies any tobacco usage or history of. Screenin:[address] [facility] ED Fall Risk Assessment (Adult) Score/Fall Risk Level 0 - 2 = Low Risk nj1 Oriented to surroundings, Maintained a safe environment, Used ambulatory aids as needed (educated on \T\ assisted with). Abuse screen: Denies threats or abuse. Denies injuries from another. Nutritional screening: No deficits noted. Tuberculosis screening: No symptoms or risk factors identified. Assessment: 11:30 General: Appears in no apparent distress. comfortable, Behavior is calm, cooperative, nj1 appropriate for age. 11:30 Pain: Denies pain. Neuro: Level of Consciousness is awake, alert, obeys commands, nj1 Oriented to person, place, time, situation. Cardiovascular: Denies chest pain, lightheadedness, palpitations, shortness of breath, Patient's skin is warm and dry. Respiratory: Airway is patent Respiratory effort is even, unlabored. 11:48 Reassessment: Call placed to house sup requesting help finding Huddler nj1 interrogator. 12:24 Reassessment: Patient appears in no apparent distress at this time. Patient and/or hb family updated on plan of care and expected duration. Pain level reassessed. Patient is alert, oriented x 3, equal unlabored respirations, skin warm/dry/pink. 13:38 Reassessment: Patient appears in no apparent distress at this time. Patient and/or hb family updated on plan of care and expected duration. Pain level reassessed. Patient is alert, oriented x 3, equal unlabored respirations, skin warm/dry/pink. Vital Signs: 11:16 BP 147 / 75; Pulse 75; Resp 16; Temp 97.8; Pulse Ox 96% ; Weight 158.76 kg; Height 6 ll1 ft. 0 in. ; Pain 8/10; 12:24 BP 102 / 68; Pulse 80; Resp 15; Pulse Ox 99% on R/A; hb 13:38 BP 119 / 67; Pulse 81; Resp 16; Pulse Ox 98% on R/A; hb 11:16 Body Mass Index 47.47 (158.76 kg, 182.88 cm) ll1 11:16 Pain Scale: Adult ll1 ED Course: 11:03 Patient arrived in ED. rg4 11:05 [facility]ero [facility] kb 11:05 Carter Appiah MD is Attending Physician. kb 11:10 Arm band placed on Patient placed in an exam room, on a stretcher. ll1 11:11 Candice Hurtado, RN is Primary Nurse. nj1 11:18 Triage completed. ll1 11:30 Provided Education on: call light, fall precautions. nj1 11:30 Patient has correct armband on for positive identification. Bed in low position. Call nj1 light in reach. Side rails up X 1. Adult w/ patient. 11:36 Inserted saline lock: 22 gauge in left forearm, using aseptic technique. Blood nj1 collected. 11:55 XRAY Chest (1 view) In Process Unspecified. EDMS 14:11 No provider procedures requiring assistance completed. IV discontinued, intact, hb bleeding controlled, No redness/swelling at site. Administered Medications: No medications were administered Medication: 11:43 VIS not applicable for this client. nj1 Outcome: 13:41 Discharge ordered by MD. kb 14:11 Discharged to home ambulatory, with significant other, hb 14:11 Condition: stable 14:11 Discharge instructions given to patient, significant other, Instructed on discharge instructions, follow up and referral plans. Demonstrated understanding of instructions, follow-up care, 14:11 Patient left the ED. hb Signatures: Dispatcher [employer] EDMS Lu Caballero, RADIATION ONCOLOGY THERAPIST-C RADIATION ONCOLOGY THERAPIST-Ckb Anu Lucas RN RN Amber Phillips rg4 Mona Wiley RN RN 1 Candice Hurtado, RN RN nj1
[2022-12-17 14:17] VITALS: TEMP 97.8
[2022-12-17 14:19] VITALS: BP 119/67; O2SAT 98
--- NOTE | 2022-12-18 12:17 | EKG ---
Test Date: 2022-12-17 Test Time: 11:21:30 Editor: CRISTINO MEASUREMENT RESULTS: Intervals: Rate: 80 WA: 160 QRSD: 138 QT: 410 QTc: 472 [place]: P: WA: 160 QRS: 266 T: 91 INTERPRETIVE STATEMENTS: Suspect arm lead reversal, interpretation assumes no reversal Sinus rhythm with occasional premature ventricular complexes Right bundle branch block Possible Anterolateral infarct, age undetermined Abnormal ECG Compared to ECG 07/14/2022 15:12:50 Ventricular premature complex(es) now present Myocardial infarct finding now present Short WA interval no longer present Left anterior fascicular block no longer present Bifascicular block no longer present Electronically Signed On 12-18-22 12:14:54 CDT by Natanael Garcia
== END 2022-12-17 14:11 | disposition home or self-care (01) ==
LOC: ER 11:02
DX: Z71.1 Person with feared health complaint in whom no diagnosis is made (principal); I10 Essential (primary) hypertension; I50.9 Heart failure, unspecified; J44.9 Chronic obstructive pulmonary disease, unspecified; Z88.0 Allergy status to penicillin; Z95.810 Presence of automatic (implantable) cardiac defibrillator
CPT/HCPCS: 36415; 71045; 80048; 84484; 85025; 93005; 99283

== ENCOUNTER 2023-01-01 14:00 | Emergency (ER) | payer MEDICARE ==
--- OUTSIDE RECORDS SUMMARY | 2023-01-01 14:22 | XMS REPORT | Continuity of Care Document ---
:1950 Author Organization [facility] t Address [address] [facility]. [address] [place] [address] Support Name Relationship Address Phone Gretta Joe E [address] [place] [address] GRETTA JOE [address] [phone] [place] [address] Gretta Joe [phone] [place] [address] Gretta Joe Spouse [phone] [place] [address] Gretta Joe Spouse [address] [place] [address] GRETTA JOE X [phone] [place] [address] ABHIJEET ARVIZU L X [address] [place] [address] L Abhijeet Arvizu Spouse [address] [phone] [place] [address] Care Team Providers Name Role Phone Sunshine GARCIA, Jose Juan Canales Primary Care Physician NEHA SEN Attending Clinician Unavailable Danica Chen LVN Attending Clinician Unavailable Michael Chiu Attending Clinician Janay Yi MD Attending Clinician Jose Juan Gonsalez MD Attending Clinician Pamella Boucher MA Attending Clinician Unavailable JustinL Attending Clinician Unavailable Iris Henning RN Attending Clinician Unavailable Ratna Urias MA Attending Clinician Unavailable Kassidy GARCIA, Kassidy Joshi Attending Clinician Edith GARCIA, Jac Walker Attending Clinician JOON WOODY K.H. Attending Clinician Unavailable Marshall GARCIA, Olimpia Odonnell Attending Clinician Mally Handley MA Attending Clinician Unavailable Quang GARCIA, Jackie Attending Clinician Nichol Neil RN Attending Clinician Unavailable Olivier GARCIA PhD, Basilio Alexis Attending Clinician Scottie Erwin Attending Clinician LUIS BURGESS Attending Clinician Unavailable Doctor Unassigned, Quinlan Attending Clinician Unavailable Sandra Goff Attending Clinician Liss Cardenas Attending Clinician Luis Burgess MD Attending Clinician Annalise GARCIA, Sendsissy K.H. Attending Clinician Juvencio Luna MD Attending Clinician CATIE HILL Attending Clinician Unavailable CATIE HILL Attending Clinician Unavailable 2, Adc Lab Attending Clinician Unavailable JOSE JUAN GONSALEZ Attending Clinician Unavailable Jessica Hewitt MD Attending Clinician RADIOLOGY Attending Clinician Unavailable Radiology Attending Clinician Unavailable [facility], Fercho Erazo Attending Clinician [phone] GERA FREEMAN Attending Clinician Unavailable Gus Owens MD Attending Clinician GUS OWENS Attending Clinician Unavailable Pete CRAFT- Gera GAINES Attending Clinician [phone] SCOTTIE HALE Attending Clinician Unavailable Val Love DO Attending Clinician Calvin Castro Attending Clinician Draw, Clc-Bls Lab Attending Clinician Unavailable CALVIN FLORES Attending Clinician Unavailable Lorraine Galarza RN Attending Clinician Unavailable HANNAH WOOD Attending Clinician Unavailable JUVENCIO LUNA Attending Clinician Unavailable JUVENCIO LUNA Attending Clinician Unavailable Birdie GARCIA, Morgan Arevalo Attending Clinician Unavailable MORGAN MAC Attending Clinician Unavailable Only, Adc Test Attending Clinician Unavailable Wild Kamara MD Attending Clinician Marko Dupont MD Attending Clinician Vls-Lab Attending Clinician Unavailable MARKO DUPONT Attending Clinician Unavailable Unknown, Attending Attending Clinician Unavailable Aftab Hall Attending Clinician Yue GARCIA, Karan Mims Attending Clinician KARAN TURNER Attending Clinician Unavailable [...] Clinician Unavailable Nella Murphy MD Attending Clinician [phone] Angel Luis Dia Attending Clinician ANGEL LUIS RODRIGUEZ Attending Clinician Unavailable MEHNAZ RODRIGUEZ Attending Clinician Unavailable MEHNAZ RODRIGUEZ Attending Clinician Unavailable Mehnaz Rodriguez DO Attending Clinician Jennifer Sebastian MD Attending Clinician [phone] VU NICOLE A Attending Clinician Unavailable Gramm SENIOR TECHNICAL ANALYST, Nicole A Attending Clinician MOE SOLORIO Attending Clinician Unavailable Vickey Montejo MD Attending Clinician [phone] Abad Blue MD Attending Clinician Provider, [...] Date S ource MEDICARE PART A \\T\\ [id number] 2001 B 00:00:00 [facility]MERLY [facility] DER4 2022 (MEDICARE 00:00:00 REPLACEMENT HMO) RU/OMER [id number] 2021 MEDICARE ADVANTAGE 00:00:00 Problems Condition Condition [...] implant 00 l (SJM, (SJM, implanted implanted 2012 in 2012 in [place] Diarrhea, Diarrhea, Disease Active Uni vers unspecifie unspecifie 6-23 it y of d type d type 00:00: [place] 00 Medical Branch Streptococ Streptococ Disease Active U nivers cus cus 6-23 ity of agalact[place] 00 [facility] Branch Sepsis due Sepsis due Disease Active U nivers to to 6-23 ity of Streptococ Streptococ [place] cus group cus group 00 [facility] D D Branch Alcoholic Alcoholic Disease Active [...] C C 00:00: [place] screening screening 00 [facility] test test Branch Elevated Elevated Disease Active [...] Medical defibrilla defibrilla Br anch tor 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) in place place PAF PAF Disease Active 2020-03 Univers (paroxysma (paroxysma 0-27 it y of l atrial l atrial 00:00: [place] fibrillati fibrillati 00 Me dical on) on) Branch Frequent Frequent Disease Active 2021-1 Unive rs PVCs PVCs 0-27 ity of [...] testing [facility]10 [facility] [place] Chronic Chronic Disease [facility] disorder [facility] Medica l 00 Center Acute on Acute on Disease Active Unive rs chronic chronic 5-04 ity of combined combined 00:00: [place] systolic systolic 00 Medica l and and [...] Medical Branch Hypotensio Hypotensio Disease Active U debbieers n n 4-11 ity of 00:00: [place] 00 Medical Branch 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:00: [place] diastolic diastolic 00 [facility] heart heart Branch failure failure CHF CHF Disease Active Univers exacerbati exacerbati 4-10 it y of on on 00:00: [place] 00 Medical Branch Hypoxia Hypoxia Disease Active [...] 2014-03 U christi d anxiety d anxiety -16 ity of disorder disorder 00:00: [place] 00 [...] nivers on on 03-27 ity of 00:00: [place] 00 Medical Branch Allergies, Adverse Reactions, Alerts [...] vers IN INGREDI 03-17 ity of 00:00: [place] 00 [facility] Family History Family Member Diagnosis Comments Start Date Stop Date Source Natural mother [facility] Social History Social Habit Start Date Stop Date Quantity Comments Source Gender identity [facility] History of tobacco Current smoker [facility] [place] History of Social 2022-11-23 2022-11-[address] function 00:00:00 00:00:00 Hospital Tobacco use and 2022-07-31 2022-07-31 Smokeless Buddhist exposure 00:00:00 00:00:00 tobacco non-user Hospital Cigarettes smoked 2022-07-31 2022-07-[address] current (pack per 00:00:00 00:00:00 Hospita l day) - Reported Cigarette 2022-07-31 2022-07-31 Buddhist pack-years 00:00:00 00:00:00 Hospital Alcohol Comment 2022-07-31 2022-07-31 social Buddhist 00:00:00 00:00:00 Hospital Exposure to 2022-02-28 2022-03-10 Not sure University of SARS-CoV-2 (event) 00:00:00 10:38:00 [facility] Education 2021-06-14 2021-06-14 14 [facility] 00:00:00 00:00:00 [facility] Alcohol intake 2016-07-18 2016-07-18 Current drinker PERLA Ritter 00:00:00 00:00:00 of [facility] (finding) Sex Ass[birth year] At [birth year] Benito Castillo kes 00:00:00 00:00:00 [facility] Center Smoking Status Start Date Stop Date Source Tobacco smoking consumption [facility] unknown Ex-smoker 2022-07-31 00:00:00 2022-07-31 00:00:00 [facility] Medications Ordered Filled Start Stop Current Ordering Indication Dosage Frequency Signature Comments Components Source Medication Medication Date Date Medication? Clinician (SIG) Name Name SERTraline Yes [id number] 100mg TAKE 1 Univers 100 mg 9-20 TABLET BY ity of tablet 00:00: MOUTH IN [place] [address] THE Medical MORNING Branch AND IN THE EVENING gemfibroziL 2022-0 Yes 600mg Take 1 Met hodi (LOPID) 600 9-[address] MG tablet 10:01: (600 mg Hospi ta 27 total) by l mouth. gemfibroziL 2022-0 Yes 600mg Take 1 Met hodi (LOPID) 600 9-[address] MG tablet 10:01: (600 mg Hospi ta 27 total) by l mouth. sacubitriL- 0 Yes 1{tbl} Q.5D Take 1 Me thodi valsartan 9-[address] (Entresto) 00:00: mouth 2 Hosp radha 97-103 mg 00 (two) l tablet per times a tablet day. sacubitriL- 2022-0 Yes 1{tbl} Q.5D Take 1 Me thodi valsartan 9-[address] (Entresto) 00:00: mouth 2 Hosp radha 97-103 mg 00 (two) l tablet per times a tablet day. GABAPENTIN 2022-0 Yes [id number] TAKE 1 Univers 300 mg 7-24 CAPSULE BY ity of capsule 00:00: MOUTH IN [place] [address] THE Medical MORNING Branch AND IN THE EVENING GABAPENTIN 2022-0 Yes [id number] TAKE 1 Univers 300 mg 7-24 CAPSULE BY ity of capsule 00:00: MOUTH IN [place] 00 THE Medical MORNING Branch AND IN THE EVENING sacubitriL- 2023-0 Yes 1{tbl} Q.5D Take 1 Me thodi valsartan 7-24 tablet by ([facility]) 00:00: mouth 2 Hosp radha 49-51 mg 00 (two) l tablet per times a tablet day. sacubitriL- 2023-0 3- No 1{tbl} Q.5D Take 1 M ethodi valsartan 7-24 10-10 tablet by ([facility]) 00:00: 00:00 mouth 2 Hos benjy 49-51 mg 00 :00 (two) l tablet per times a tablet day. sacubitriL- 2023-0 2022- No 1{tbl} Q.5D Take 1 M ethodi valsartan 7-05 08-08 tablet by ([facility]) 00:00: 00:00 mouth 2 Hos benjy 24-26 mg 00 :00 (two) l tablet per times a tablet day. sacubitriL- 3-0 2022- No 1{tbl} Q.5D Take 1 M ethodi valsartan 7-05 08-08 tablet by ([facility]) 00:00: 00:00 mouth 2 Hos benjy 24-26 mg 00 :00 (two) l tablet per times a tablet day. gemfibroziL 3-0 Yes 600mg Take 1 Met hodi (LOPID) 600 5-[address] MG tablet 13:15: (600 mg Hospi ta 16 total) by l mouth. sacubitriL- 2023-0 Yes 1{tbl} Q.5D Take 1 Me thodi valsartan 5-22 tablet by ([facility]) 00:00: mouth 2 Hosp radha 24-26 mg 00 (two) l tablet per times a tablet day. sacubitriL- 2023-0 2022- No 1{tbl} Q.5D Take 1 M ethodi valsartan 5-22 07-05 tablet by ([facility]) 00:00: 00:00 mouth 2 Hos benjy 24-26 mg 00 :00 (two) l tablet per times a tablet day. sacubitriL- 2023-0 2023- No 1{tbl} Q.5D Take 1 M ethodi valsartan 5-22 07-[address] (Entresto) 00:00: 00:00 mouth 2 Hos benjy 24-26 mg 00 :00 (two) l tablet per times a tablet day. GABAPENTIN 3-0 Yes [id number] TAKE 1 Univers 300 mg 5-18 CAPSULE BY ity of capsule 00:00: MOUTH IN [place] 00 THE Medical MORNING Branch AND IN THE EVENING GABAPENTIN 3-0 2023- No [id number] TAKE 1 Univers 300 mg 5-18 07-24 CAPSULE BY ity of capsule 00:00: 00:00 MOUTH IN [place] 00 :00 THE Medical MORNING Branch AND [...] AREAS ON TRUNK nystatin 3-0 Yes APPLY UP Metho di [...] 00 THREE l cream TIMES DAILY mexiletine 2023-0 Yes [id number] 200mg Take 1 Univers 200 mg 4-17 capsule by ity of capsule 00:00: mouth [place] [address] every 8 Medical (eight) Branch hours. mexiletine 2023-0 Yes [id number] 200mg Take 1 Univers 200 mg 4-17 capsule by ity of capsule 00:00: mouth [place] [address] every 8 Medical (eight) Branch hours. mexiletine 2023-0 Yes [id number] 200mg Take 1 Univers 200 mg 4-17 capsule by ity of capsule 00:00: mouth [place] 00 every 8 Medical (eight) Branch hours. mexiletine 2022-0 Yes [id number] 200mg Take 1 Univers 200 mg 4-17 capsule by ity of capsule 00:00: mouth [place] 00 every 8 Medical (eight) Branch hours. mexiletine 2022-0 Yes [id number] 200mg Take 1 Univers 200 mg 4-17 capsule by ity of capsule 00:00: mouth [place] every 8 Medical (eight) Branch hours. mexiletine 2022-0 Yes [id number] 200mg Take 1 Univers 200 mg 4-17 capsule by ity of capsule 00:00: mouth [place] every 8 Medical (eight) Branch hours. mexiletine 2022-0 Yes [id number] 200mg Take 1 Univers 200 mg 4-17 capsule by ity of capsule 00:00: mouth [place] every 8 Medical (eight) Branch hours. ATORVASTATI 0 Yes [id number] 40mg TAKE 1 Univers N 40 mg 4-12 TABLET BY ity of tablet 00:00: MOUTH AT [address] ATORVASTATI 0 Yes [id number] 40mg TAKE 1 Univers N 40 mg 4-12 TABLET BY ity of tablet 00:00: MOUTH AT [address] ATORVASTATI 0 Yes [id number] 40mg TAKE 1 Univers N 40 mg 4-12 TABLET BY ity of tablet 00:00: MOUTH AT [address] ATORVASTATI 0 Yes [id number] 40mg TAKE 1 Univers N 40 mg 4-12 TABLET BY ity of tablet 00:00: MOUTH AT [address] ATORVASTATI 2022-0 Yes [id number] 40mg TAKE 1 Univers N 40 mg 4-12 TABLET BY ity of tablet 00:00: MOUTH AT [address] ATORVASTATI 0 Yes [id number] 40mg TAKE 1 Univers N 40 mg 4-12 TABLET BY ity of tablet 00:00: MOUTH AT [address] ATORVASTATI 2022-0 Yes [id number] 40mg TAKE 1 Univers N 40 mg 4-12 TABLET BY ity of tablet 00:00: MOUTH AT [address] ATORVASTATI 2023-0 Yes [id number] 40mg TAKE 1 Univers N 40 mg 4-12 TABLET BY ity of tablet 00:00: MOUTH AT [place] 00 BEDTIME Medical Branch allopurinoL 3-0 Yes [id number] 300mg Take 1 Univers 300 mg 4-04 tablet by ity of tablet 00:00: mouth in [place] the Medical morning. Branch allopurinoL 3-0 Yes [id number] 300mg Take 1 Univers 300 mg 4-04 tablet by ity of tablet 00:00: mouth in [place] the Medical morning. Branch allopurinoL 3-0 Yes [id number] 300mg Take 1 Univers 300 mg 4-04 tablet by ity of tablet 00:00: mouth in [place] the Medical morning. Branch allopurinoL 3-0 Yes [id number] 300mg Take 1 Univers 300 mg 4-04 tablet by ity of tablet 00:00: mouth in [place] the Medical morning. Branch allopurinoL 3-0 Yes [id number] 300mg Take 1 Univers 300 mg 4-04 tablet by ity of tablet 00:00: mouth in [place] the Medical morning. Branch allopurinoL 3-0 Yes [id number] 300mg Take 1 Univers 300 mg 4-04 tablet by ity of tablet 00:00: mouth in [place] the Medical morning. Branch allopurinoL 3-0 Yes [id number] 300mg Take 1 Univers 300 mg 4-04 tablet by ity of tablet 00:00: mouth in [place] the Medical morning. Branch allopurinoL 3-0 Yes [id number] 300mg Take 1 Univers 300 mg 4-04 tablet by ity of tablet 00:00: mouth in [place] the Medical morning. Branch allopurinoL 3-0 Yes [id number] 300mg Take 1 Univers 300 mg 4-04 tablet by ity of tablet 00:00: mouth in [place] the Medical morning. Branch carvediloL 3-0 Yes 6.25mg Q.5D Take 1 Met hodi (COREG) 3-[address] 6.25 MG 00:00: (6.25 mg Hospit a tablet 00 total) by l mouth 2 (two) times a day with meals. spironolact 3-0 Yes 25mg QD Take 1 Meth linda [...] l tablet every morning. GABAPENTIN 2023-0 Yes [id number] TAKE 1 Univers 300 mg 3-20 CAPSULE BY ity of capsule 00:00: MOUTH IN [address] MORNING [place] AND IN THE EVENING GABAPENTIN 2023-0 Yes [id number] TAKE 1 Univers 300 mg 3-20 CAPSULE BY ity of capsule 00:00: MOUTH IN [address] AND IN THE EVENING GABAPENTIN 2023-0 Yes [id number] TAKE 1 Univers 300 mg 3-20 CAPSULE BY ity of capsule 00:00: MOUTH IN [address] AND IN THE EVENING GABAPENTIN 2023-0 Yes [id number] TAKE 1 Univers 300 mg 3-20 CAPSULE BY ity of capsule 00:00: MOUTH IN [address] MORNING [place] AND IN THE EVENING GABAPENTIN 2023-0 Yes [id number] TAKE 1 Univers 300 mg 3-20 CAPSULE BY ity of capsule 00:00: MOUTH IN [address] AND IN THE EVENING GABAPENTIN 2023-0 Yes [id number] TAKE 1 Univers 300 mg 3-20 CAPSULE BY ity of capsule 00:00: MOUTH IN [address] AND IN THE EVENING gabapentin 3-0 Yes TAKE 1 Metho di (NEURONTIN) 3-20 [...] l MORNING AND IN THE EVENING GABAPENTIN 2023-0 2023- No [id number] TAKE 1 Univers 300 mg 3-20 05-18 CAPSULE BY ity of capsule 00:00: 00:00 MOUTH IN [place] 00 :00 THE Medical MORNING Branch AND IN THE EVENING GABAPENTIN 2023-0 2023- No [id number] TAKE 1 Univers 300 mg 3-20 05-18 CAPSULE BY ity of capsule 00:00: 00:00 MOUTH IN [place] 00 :00 THE Medical MORNING Branch AND IN THE EVENING KCL 20 mEq 2023-0 Yes [id number] TAKE 1 Univers tablet 3-17 TABLET BY ity of 00:00: MOUTH [place] 00 EVERY Medical MORNING Branch AND IN THE EVENING KCL 20 mEq 2023-0 Yes [id number] TAKE 1 Univers tablet 3-17 TABLET BY ity of 00:00: MOUTH [place] 00 EVERY Medical MORNING Branch AND IN THE EVENING KCL 20 mEq 2023-0 Yes [id number] TAKE 1 Univers tablet 3-17 TABLET BY ity of 00:00: MOUTH [place] 00 EVERY Medical MORNING Branch AND IN THE EVENING KCL 20 mEq 2023-0 Yes [id number] TAKE 1 Univers tablet 3-17 TABLET BY ity of 00:00: MOUTH [place] 00 EVERY Medical MORNING Branch AND IN THE EVENING KCL 20 mEq 2023-0 Yes [id number] TAKE 1 Univers tablet 3-17 TABLET BY ity of 00:00: MOUTH [place] 00 EVERY Medical MORNING Branch AND IN THE EVENING KCL 20 mEq 2023-0 Yes [id number] TAKE 1 Univers tablet 3-17 TABLET BY ity of 00:00: MOUTH [place] 00 EVERY Medical MORNING Branch AND IN THE EVENING KCL 20 mEq 2023-0 Yes [id number] TAKE 1 Univers tablet 3-17 TABLET BY ity of 00:00: MOUTH [place] 00 EVERY Medical MORNING Branch AND IN THE EVENING KCL 20 mEq 2023-0 Yes [id number] TAKE 1 Univers tablet 3-17 TABLET BY ity of 00:00: MOUTH [place] 00 EVERY Medical MORNING Branch AND IN THE EVENING KCL 20 mEq 2023-0 Yes [id number] TAKE 1 Univers tablet 3-17 TABLET BY ity of 00:00: MOUTH [place] 00 EVERY Medical MORNING Branch AND IN THE EVENING KCL 20 mEq 2023-0 Yes [id number] TAKE 1 Univers tablet 3-17 TABLET BY ity of 00:00: MOUTH [place] 00 EVERY Medical MORNING Branch AND IN THE EVENING KCL 20 mEq 2023-0 Yes [id number] TAKE 1 Univers tablet 3-17 TABLET BY ity of 00:00: MOUTH [place] 00 EVERY Medical MORNING Branch AND IN THE EVENING KCL 20 mEq 2023-0 Yes [id number] TAKE 1 Univers tablet 3-17 TABLET BY ity of 00:00: MOUTH [place] 00 EVERY Medical MORNING Branch AND IN THE EVENING KCL 20 mEq 2023-0 Yes [id number] TAKE 1 Univers tablet 3-17 TABLET BY [...] 5 MG tablet 00:00: MOUTH ON l SUNDAY/Sun/Sun/SUNDAY primidone 2022-0 Yes Q8H Take [...] Hospita tablet 00 (eight) l hours. omeprazole 0 Yes 40mg QD Take 1 Metho di (PriLOSEC) 3-[address] 40 MG 00:00: (40 mg Hospita capsule 00 total) by l mouth daily. potassium Yes TAKE 1 Method i chloride 3-[address] (K-DUR) 20 00:00: MOUTH Hospit a MEQ CR 00 EVERY l tablet MORNING AND EVENING. sertraline 0 Yes Methodi (ZOLOFT) 3-17 st 100 MG 00:00: Hospita tablet 00 l warfarin 0 Yes TAKE 2 Methodi (COUMADIN) 3-[address] 5 MG tablet 00:00: MOUTH ON l /Sun/SUNDAY primidone 2022-0 Yes Q8H Take by Metho di (MYSOLINE) 3-[address] 50 MG 00:00: every 8 Hospita tablet 00 (eight) l hours. semaglutide Yes 1{tbl} Take 1 Me thodi (Rybelsus) 3-[address] 7 mg tablet 00:00: mouth. Hosp radha 00 l semaglutide 0 Yes 1{tbl} Take 1 Me thodi (Rybelsus) 3-[address] 7 mg tablet 00:00: mouth. Hosp radha 00 l semaglutide 0 Yes 1{tbl} Take 1 Me thodi (Rybelsus) 3-[address] 7 mg tablet 00:00: mouth. Hosp radha 00 l triamcinolo Yes APPLY A Met hodi ne 3-[address] (KENALOG) 00:00: TO THE Hospit a 0.1 % cream 00 AFFECTED l AREA ON ARMS TWICE DAILY FOR 2 WEEKS TO A MONTH triamcinolo 2023-0 Yes APPLY A Met hodi ne 3-03 [...] WEEKS TO A MONTH ALLOPURINOL 2022-0 Yes [id number] 300mg TAKE 1 Univers 300 mg 2-27 TABLET BY ity of tablet 00:00: [facility] DAILY Medical Branch ALLOPURINOL 2022-0 Yes [id number] 300mg TAKE 1 Univers 300 mg 2-27 TABLET BY ity of tablet 00:00: [facility] DAILY Medical Branch ALLOPURINOL 2022-0 Yes [id number] 300mg TAKE 1 Univers 300 mg 2-27 TABLET BY ity of tablet 00:00: [facility] DAILY Medical Branch ALLOPURINOL 2022-0 Yes [id number] 300mg TAKE 1 Univers 300 mg 2-27 TABLET BY ity of tablet 00:00: [facility] DAILY Medical Branch ALLOPURINOL 2022-0 Yes [id number] 300mg TAKE 1 Univers 300 mg 2-27 TABLET BY ity of tablet 00:00: [facility] DAILY Medical Branch ALLOPURINOL 2022-0 2022- No [id number] 300mg TAKE 1 Univers 300 mg 2-27 04-04 TABLET BY ity of tablet 00:00: 00:00 [facility] 00 :00 DAILY Medical Branch mexiletine 2022-0 Yes 200mg Q8H Take 1 Meth linda (MEXITIL) 2-[address] 200 MG 00:00: (200 mg Hospita capsule 00 total) by l mouth every 8 (eight) hours. Farxiga 10 2022-0 Yes TAKE 1 Metho di mg tablet 2-[address] 00:00: MOUTH 1 Hospita 00 TIME EACH l DAY IN THE MORNING FOR DIABETES mexiletine 2022-0 Yes 200mg Q8H Take 1 Meth lidna (MEXITIL) 2-[address] 200 MG 00:00: (200 mg Hospita capsule 00 total) by l mouth every 8 (eight) hours. Farxiga 10 2022-0 Yes TAKE 1 Metho di mg tablet 2-[address] 00:00: MOUTH 1 Hospita 00 TIME EACH l DAY IN THE MORNING FOR DIABETES mexiletine 2022-0 Yes 200mg Q8H Take 1 Meth linda (MEXITIL) 2-[address] 200 MG 00:00: (200 mg Hospita capsule 00 total) by l mouth every 8 (eight) hours. Farxiga 10 2022-0 Yes TAKE 1 Metho di mg tablet 2-[address] 00:00: MOUTH 1 Hospita 00 TIME EACH l DAY IN THE MORNING FOR DIABETES WARFARIN 2022-0 Yes [id number] 7.5mg TAKE 1 U nivers 7.5 mg 1-19 TABLET BY ity of tablet 00:00: MOUTH [place] 00 EVERY Medical EVENING Branch WARFARIN 2023-0 Yes [id number] 7.5mg TAKE 1 U nivers 7.5 mg 1-19 TABLET BY ity of tablet 00:00: MOUTH [place] 00 EVERY Medical EVENING Branch WARFARIN 2023-0 Yes [id number] 7.5mg TAKE 1 U nivers 7.5 mg 1-19 TABLET BY ity of tablet 00:00: MOUTH [place] 00 EVERY Medical EVENING Branch WARFARIN 2023-0 Yes [id number] 7.5mg TAKE 1 U nivers 7.5 mg 1-19 TABLET BY ity of tablet 00:00: MOUTH [place] 00 EVERY Medical EVENING Branch WARFARIN 2023-0 Yes [id number] 7.5mg TAKE 1 U nivers 7.5 mg 1-19 TABLET BY ity of tablet 00:00: MOUTH [place] 00 EVERY Medical EVENING Branch WARFARIN 2023-0 Yes [id number] 7.5mg TAKE 1 U nivers 7.5 mg 1-19 TABLET BY ity of tablet 00:00: MOUTH [place] 00 EVERY Medical EVENING Branch WARFARIN 2023-0 Yes [id number] 7.5mg TAKE 1 U nivers 7.5 mg 1-19 TABLET BY ity of tablet 00:00: MOUTH [place] 00 EVERY Medical EVENING Branch WARFARIN 2023-0 Yes [id number] 7.5mg TAKE 1 U nivers 7.5 mg 1-19 TABLET BY ity of tablet 00:00: MOUTH [place] 00 EVERY Medical EVENING Branch WARFARIN 2023-0 Yes [id number] 7.5mg TAKE 1 U nivers 7.5 mg 1-19 TABLET BY ity of tablet 00:00: MOUTH [place] 00 EVERY Medical EVENING Branch WARFARIN 2023-0 Yes [id number] 7.5mg TAKE 1 U nivers 7.5 mg 1-19 TABLET BY ity of tablet 00:00: MOUTH [place] 00 EVERY Medical EVENING Branch WARFARIN 2023-0 Yes [id number] 7.5mg TAKE 1 U nivers 7.5 mg 1-19 TABLET BY ity of tablet 00:00: MOUTH [place] 00 EVERY Medical EVENING Branch WARFARIN 2023-0 Yes [id number] 7.5mg TAKE 1 U nivers 7.5 mg 1-19 TABLET BY ity of tablet 00:00: MOUTH [place] 00 EVERY Medical EVENING Branch WARFARIN 2023-0 Yes [id number] 7.5mg TAKE 1 U nivers 7.5 mg 1-19 TABLET BY ity of tablet 00:00: MOUTH [place] 00 EVERY Medical EVENING Branch WARFARIN 2023-0 Yes [id number] 7.5mg TAKE 1 U nivers 7.5 mg 1-19 TABLET BY ity of tablet 00:00: MOUTH 00 EVERY Medical EVENING Branch WARFARIN 2023-0 Yes [id number] 7.5mg TAKE 1 U nivers 7.5 mg 1-19 TABLET BY ity of tablet 00:00: MOUTH 00 EVERY Medical EVENING Branch WARFARIN 2023-0 Yes [id number] 7.5mg TAKE 1 U nivers 7.5 mg 1-19 TABLET BY ity of tablet 00:00: MOUTH 00 EVERY Medical EVENING Branch WARFARIN 2023-0 Yes [id number] 7.5mg TAKE 1 U nivers 7.5 mg 1-19 TABLET BY ity of tablet 00:00: MOUTH 00 EVERY Medical EVENING Branch WARFARIN 2023-0 Yes [id number] 7.5mg TAKE 1 U nivers 7.5 mg 1-19 TABLET BY ity of tablet 00:00: MOUTH 00 EVERY Medical EVENING Branch WARFARIN 2023-0 Yes [id number] 7.5mg TAKE 1 U nivers 7.5 mg 1-19 TABLET BY ity of tablet 00:00: MOUTH 00 EVERY Medical EVENING Branch WARFARIN 2023-0 Yes [id number] 7.5mg TAKE 1 U nivers 7.5 mg 1-19 TABLET BY ity of tablet 00:00: MOUTH 00 EVERY Medical EVENING Branch gabapentin 2023-0 Yes [id number] 300mg Take 1 Univers 300 mg 1-17 capsule by ity of capsule 00:00: mouth in [place] 00 the Medical morning Branch and 1 capsule in the evening. gabapentin 2023-0 Yes [id number] 300mg Take 1 Univers 300 mg 1-17 capsule by ity of capsule 00:00: mouth in [place] 00 the Medical morning Branch and 1 capsule in the evening. gabapentin 2023-0 Yes [id number] 300mg Take 1 Univers 300 mg 1-17 capsule by ity of capsule 00:00: mouth in [place] 00 the Medical morning Branch and 1 capsule in the evening. gabapentin 2023-0 Yes [id number] 300mg Take 1 [facility] 300 mg 1-17 capsule by [facility] capsule 00:00: mouth in [place] [address] the Medical morning Branch and 1 capsule in the evening. gabapentin 2023-0 Yes [id number] 300mg Take 1 [facility] 300 mg 1-17 capsule by [facility] capsule 00:00: mouth in [place] [address] the Medical morning Branch and 1 capsule in the evening. gabapentin 2023-0 Yes [id number] 300mg Take 1 [facility] 300 mg 1-17 capsule by [facility] capsule 00:00: mouth in [place] [address] the Medical morning Branch and 1 capsule in the evening. gabapentin 2023-0 Yes [id number] 300mg Take 1 [facility] 300 mg 1-17 capsule by [facility] capsule 00:00: mouth in [place] [address] the Medical morning Branch and 1 capsule in the evening. gabapentin 2023-0 Yes [id number] 300mg Take 1 [facility] 300 mg 1-17 capsule by [facility] capsule 00:00: mouth in [place] [address] the Medical morning Branch and 1 capsule in the evening. gabapentin 2023-0 2023- No [id number] 300mg Take 1 [facility] 300 mg 1-17 03-20 capsule by [facility] capsule 00:00: 00:00 mouth in [place] 00 :00 the Medical morning Branch and 1 capsule in the evening. warfarin 2023-0 Yes [id number] 7.5mg TAKE 1 [facility] 7.5 mg 1-02 TABLET BY [facility] tablet 00:00: MOUTH [place] [address] EVERY Medical EVENING Branch warfarin 2023-0 Yes [id number] 7.5mg TAKE 1 [facility] 7.5 mg 1-02 TABLET BY [facility] tablet 00:00: MOUTH [place] [address] EVERY Medical EVENING Branch warfarin 2023-0 Yes [id number] 7.5mg TAKE 1 [facility] 7.5 mg 1-02 TABLET BY [facility] tablet 00:00: MOUTH [place] 00 EVERY Medical EVENING Branch warfarin 2022-0 Yes [id number] 7.5mg TAKE 1 [facility] 7.5 mg -02 TABLET BY [facility] tablet 00:00: MOUTH [place] 00 EVERY Medical EVENING Branch warfarin 2022-0 2022- No [id number] 7.5mg TAKE 1 [facility] 7.5 mg -04 12- TABLET BY [facility] of tablet 00:00: 00:00 MOUTH [place] 00 :00 EVERY Medical EVENING Branch spironolact 2021-03- No 12.5mg Take 12.5 [facility] one 25 mg 2-22 12-22 mg by [facility] of tablet 16:00: 00:00 mouth in [place] 04 :00 the Medical morning. Branch spironolact 2021-03- No 12.5mg Take 12.5 [facility] one 25 mg 2-22 12-22 mg by [facility] of tablet 16:00: 00:00 mouth in [place] 04 :00 the Medical morning. [place] bumetanide 2021-03 Yes 2mg Take 2 mg [facility] 2 mg tablet 2-22 by mouth it[facility] of 15:47: daily. 3 [place] 58 mg AM and Medical 2 mg PM. Branch bumetanide 2021-03 Yes 2mg Take 2 mg [facility] [place] 2 mg tablet 2-22 by mouth ity of 15:47: daily. 3 [place] 58 mg AM and Medical 2 mg PM. [place] bumetanide 2021-03 Yes 2mg Take 2 mg [...] 2 mg PM. Branch spironolact 2021-03 Yes [id number] 25mg Take 1 [facility] one 25 mg 2-22 tablet by [facility] o f tablet 00:00: mouth in [place] the Medical morning. Branch spironolact 2021-03 Yes [id number] 25mg Take 1 [facility] one 25 mg 2-22 tablet by [facility] o f tablet 00:00: mouth in [place] the Medical morning. Branch spironolact 2021-03 Yes [id number] 25mg Take 1 [facility] one 25 mg 2-22 tablet by [facility] o f tablet 00:00: mouth in [place] the Medical morning. Branch spironolact 2021-03 Yes [id number] 25mg Take 1 [facility] one 25 mg 2-22 tablet by [facility] o f tablet 00:00: mouth in [place] the Medical morning. Branch spironolact 2021-03 Yes [id number] 25mg Take 1 [facility] one 25 mg 2-22 tablet by [facility] o f tablet 00:00: mouth in [place] the Medical morning. Branch spironolact 2021-03 Yes [id number] 25mg Take 1 [facility] one 25 mg 2-22 tablet by [facility] o f tablet 00:00: mouth in [place] the Medical morning. Branch spironolact 2021-03 Yes [id number] 25mg Take 1 [facility] one 25 mg 2-22 tablet by [facility] o f tablet 00:00: mouth in [place] the Medical morning. Branch spironolact 2021-03 Yes [id number] 25mg Take 1 [facility] one 25 mg 2-22 tablet by [facility] o f tablet 00:00: mouth in [place] the Medical morning. Branch spironolact 2021-03 Yes [id number] 25mg Take 1 [facility] one 25 mg 2-22 tablet by [facility] o f tablet 00:00: mouth in [place] the Medical morning. Branch spironolact 2021-03 Yes [id number] 25mg Take 1 [facility] one 25 mg 2-22 tablet by [facility] o f tablet 00:00: mouth in [place] the Medical morning. Branch spironolact 2021-03 Yes [id number] 25mg Take 1 [facility] one 25 mg 2-22 tablet by [facility] o f tablet 00:00: mouth in [place] the morning. Branch spironolact 2021-03 Yes [id number] 25mg Take 1 [facility] one 25 mg 2-22 tablet by [facility] o f tablet 00:00: mouth in [place] the morning. Branch spironolact 2021-03 Yes [id number] 25mg Take 1 [facility] one 25 mg 2-22 tablet by [facility] o f tablet 00:00: mouth in [place] the Medical morning. Branch spironolact 2021-03 Yes [id number] 25mg Take 1 [facility] one 25 mg 2-22 tablet by [facility] o f tablet 00:00: mouth in [place] the Medical morning. Branch spironolact 2021-03 Yes [id number] 25mg Take 1 [facility] one 25 mg 2-22 tablet by [facility] o f tablet 00:00: mouth in [place] the Medical morning. Branch spironolact 2021-03 Yes [id number] 25mg Take 1 [facility] one 25 mg 2-22 tablet by [facility] o f tablet 00:00: mouth in [place] the Medical morning. Branch spironolact 2021-03 Yes [id number] 25mg Take 1 [facility] one 25 mg 2-22 tablet by [facility] o f tablet 00:00: mouth in [place] the Medical morning. Branch spironolact 2021-03 Yes [id number] 25mg Take 1 [facility] one 25 mg 2-22 tablet by [facility] o f tablet 00:00: mouth in [place] the Medical morning. Branch spironolact 2021-03 Yes [id number] 25mg Take 1 [facility] one 25 mg 2-22 tablet by [facility] o f tablet 00:00: mouth in [place] the Medical morning. Branch spironolact 2021-03 Yes [id number] 25mg Take 1 [facility] one 25 mg 2-22 tablet by [facility] o f tablet 00:00: mouth in [place] the Medical morning. Branch spironolact 2021-03 Yes [id number] 25mg Take 1 [facility] one 25 mg 2-22 tablet by [facility] o f tablet 00:00: mouth in [place] the Medical morning. Branch spironolact 2021-03 Yes [id number] 25mg Take 1 [facility] one 25 mg 2-22 tablet by [facility] o f tablet 00:00: mouth in [place] the Medical morning. Branch spironolact 2021-03 Yes [id number] 25mg Take 1 [facility] one 25 mg 2-22 tablet by [facility] o f tablet 00:00: mouth in [place] the Medical morning. Branch spironolact 2021-03 Yes [id number] 25mg Take 1 [facility] one 25 mg 2-22 tablet by [facility] o f tablet 00:00: mouth in [place] the Medical morning. Branch spironolact 2021-03 Yes [id number] 25mg Take 1 [facility] one 25 mg 2-22 tablet by [facility] o f tablet 00:00: mouth in [place] the Medical morning. Branch spironolact 2021-03 Yes [id number] 25mg Take 1 [facility] one 25 mg 2-22 tablet by [facility] o f tablet 00:00: mouth in [place] the Medical morning. Branch spironolact 2021-03 Yes [id number] 25mg Take 1 [facility] one 25 mg 2-22 tablet by [facility] o f tablet 00:00: mouth in [place] the Medical morning. Branch spironolact 2021-03 Yes [id number] 25mg Take 1 [facility] one 25 mg 2-22 tablet by [facility] o f tablet 00:00: mouth in [place] 00 the Medical morning. Branch KCL 20 mEq 2021-03 Yes [id number] 20meq Take 1 [facility] tablet 2-16 tablet by [facility] of 00:00: mouth in [place] 00 the Medical morning Branch and 1 tablet in the evening. KCL 20 mEq 2-1 Yes [id number] 20meq Take 1 [facility] tablet 2-16 tablet by [facility] of 00:00: mouth in [place] 00 the Medical morning Branch and 1 tablet in the evening. KCL 20 mEq 2-1 Yes [id number] 20meq Take 1 [facility] tablet 2-16 tablet by [facility] of 00:00: mouth in [place] [address] the Medical morning Branch and 1 tablet in the evening. KCL 20 mEq 2-1 Yes [id number] 20meq Take 1 [facility] tablet 2-16 tablet by [facility] of 00:00: mouth in [place] 00 the Medical morning Branch and 1 tablet in the evening. KCL 20 mEq 2-1 Yes [id number] 20meq Take 1 [facility] tablet 2-16 tablet by [facility] of 00:00: mouth in [place] [address] the Medical morning Branch and 1 tablet in the evening. KCL 20 mEq 2021-1 Yes [id number] 20meq Take 1 [facility] tablet 2-16 tablet by [facility] of 00:00: mouth in [place] [address] the Medical morning Branch and 1 tablet in the evening. KCL 20 mEq 2-1 Yes [id number] 20meq Take 1 [facility] tablet 2-16 tablet by [facility] of 00:00: mouth in [place] [address] the Medical morning Branch and 1 tablet in the evening. KCL 20 mEq 2-1 Yes [id number] 20meq Take 1 [facility] tablet 2-16 tablet by [facility] of 00:00: mouth in [place] [address] the Medical morning Branch and 1 tablet in the evening. KCL 20 mEq 2-1 Yes [id number] 20meq Take 1 [facility] tablet 2-16 tablet by [facility] of 00:00: mouth in [place] [address] the Medical morning Branch and 1 tablet in the evening. KCL 20 mEq 2-1 Yes [id number] 20meq Take 1 [facility] tablet 2-16 tablet by [facility] of 00:00: mouth in [place] [address] the Medical morning Branch and 1 tablet in the evening. KCL 20 mEq 2-1 Yes [id number] 20meq Take 1 [facility] tablet 2-16 tablet by [facility] of 00:00: mouth in [place] [address] the Medical morning Branch and 1 tablet in the evening. KCL 20 mEq 2-1 Yes [id number] 20meq Take 1 [facility] tablet 2-16 tablet by [facility] of 00:00: mouth in [place] 00 the Medical morning Branch and 1 tablet in the evening. KCL 20 mEq 2021-03 Yes [id number] 20meq Take 1 [facility] tablet 2-16 tablet by [facility] of 00:00: mouth in [place] 00 the Medical morning Branch and 1 tablet in the evening. KCL 20 mEq 2021-03 Yes [id number] 20meq Take 1 [facility] tablet 2-16 tablet by [facility] of 00:00: mouth in [place] 00 the Medical morning Branch and 1 tablet in the evening. KCL 20 mEq 2021-03 Yes [id number] 20meq Take 1 [facility] tablet 2-16 tablet by [facility] of 00:00: mouth in [place] 00 the Medical morning Branch and 1 tablet in the evening. KCL 20 mEq 2021-03- No [id number] 20meq Take 1 [facility] tablet 2-16 03-17 tablet by [facility] of 00:00: 00:00 mouth in [place] 00 :00 the Medical morning Branch and 1 tablet in the evening. GABAPENTIN 2021- Yes [id number] TAKE 2 [facility] 300 mg 2-14 CAPSULES ity of capsule 00:00: BY MOUTH [place] 00 TWICE Medical DAILY. Branch PRIMIDONE 2021-03 Yes [id number] TAKE 2 [facility] 50 mg 2-14 TABLETS BY [facility] of tablet 00:00: MOUTH [place] 00 EVERY 8 Medical HOURS Branch GABAPENTIN 2021- Yes [id number] TAKE 2 [facility] 300 mg 2-14 CAPSULES ity of capsule 00:00: BY MOUTH [place] 00 TWICE Medical DAILY. Branch PRIMIDONE 2021- Yes [id number] TAKE 2 [facility] 50 mg 2-14 TABLETS BY [facility] of tablet 00:00: MOUTH [place] 00 EVERY 8 Medical HOURS Branch PRIMIDONE 2021- Yes [id number] TAKE 2 [facility] n[facility] 50 mg 2-14 TABLETS BY [facility] of tablet 00:00: MOUTH [place] 00 EVERY 8 Medical HOURS Branch PRIMIDONE 2021- Yes [id number] TAKE 2 [facility] n[facility] 50 mg 2-14 TABLETS BY [facility] of tablet 00:00: MOUTH [place] 00 EVERY 8 Medical HOURS Branch PRIMIDONE 2021- Yes [id number] TAKE 2 [facility] n[facility] 50 mg 2-14 TABLETS BY it[facility] of tablet 00:00: MOUTH [place] 00 EVERY 8 Medical HOURS Branch PRIMIDONE 2021- Yes [id number] TAKE 2 [facility] n[facility] 50 mg 2-14 TABLETS BY it[facility] of tablet 00:00: MOUTH [place] 00 EVERY 8 Medical HOURS Branch PRIMIDONE 2021- Yes [id number] TAKE 2 [facility] n[facility] 50 mg 2-14 TABLETS BY ity of tablet 00:00: MOUTH [place] 00 EVERY 8 Medical HOURS Branch PRIMIDONE 2021-03 Yes [id number] TAKE 2 [facility] n[facility] 50 mg 2-14 TABLETS BY [facility] of tablet 00:00: MOUTH [place] 00 EVERY 8 Medical HOURS Branch PRIMIDONE 2021- Yes [id number] TAKE 2 [facility] n[facility] 50 mg 2-14 TABLETS BY [facility] of tablet 00:00: MOUTH [place] 00 EVERY 8 Medical HOURS Branch PRIMIDONE 2021- Yes [id number] TAKE 2 [facility] n[facility] 50 mg 2-14 TABLETS BY [facility] of tablet 00:00: MOUTH [place] 00 EVERY 8 Medical HOURS Branch PRIMIDONE 2021- Yes [id number] TAKE 2 [facility] n[facility] 50 mg 2-14 TABLETS BY [facility] of tablet 00:00: MOUTH [place] 00 EVERY 8 Medical HOURS Branch PRIMIDONE 2021- Yes [id number] TAKE 2 [facility] n[facility] 50 mg 2-14 TABLETS BY [facility] of tablet 00:00: MOUTH [place] 00 EVERY 8 Medical HOURS Branch PRIMIDONE 2021- Yes [id number] TAKE 2 [facility] n[facility] 50 mg 2-14 TABLETS BY [facility] of tablet 00:00: MOUTH [place] 00 EVERY 8 Medical HOURS Branch PRIMIDONE 2021- Yes [id number] TAKE 2 [facility] 50 mg 2-14 TABLETS BY [facility] of tablet 00:00: MOUTH [place] 00 EVERY 8 Medical HOURS Branch PRIMIDONE 2021- Yes [id number] TAKE 2 [facility] 50 mg 2-14 TABLETS BY [facility] of tablet 00:00: MOUTH [place] 00 EVERY 8 Medical HOURS Branch PRIMIDONE 2021- Yes [id number] TAKE 2 [facility] 50 mg 2-14 TABLETS BY [facility] of tablet 00:00: MOUTH [place] 00 EVERY 8 Medical HOURS Branch PRIMIDONE 2021- Yes [id number] TAKE 2 [facility] 50 mg 2-14 TABLETS BY [facility] of tablet 00:00: MOUTH [place] 00 EVERY 8 Medical HOURS Branch PRIMIDONE 2021- Yes [id number] TAKE 2 [facility] n[facility] 50 mg 2-14 TABLETS BY [facility] of tablet 00:00: MOUTH [place] 00 EVERY 8 Medical HOURS Branch PRIMIDONE 2021-03 Yes [id number] TAKE 2 [facility] n[facility] 50 mg 2-14 TABLETS BY [facility] of tablet 00:00: MOUTH [place] 00 EVERY 8 Medical HOURS Branch PRIMIDONE 2021- Yes [id number] TAKE 2 [facility] 50 mg 2-14 TABLETS BY [facility] of tablet 00:00: MOUTH [place] 00 EVERY 8 Medical HOURS Branch PRIMIDONE 2021- Yes [id number] TAKE 2 [facility] 50 mg 2-14 TABLETS BY [facility] of tablet 00:00: MOUTH [place] 00 EVERY 8 Medical HOURS Branch PRIMIDONE 2021- Yes [id number] TAKE 2 [facility] 50 mg 2-14 TABLETS BY [facility] of tablet 00:00: MOUTH [place] 00 EVERY 8 Medical HOURS Branch PRIMIDONE 2021-03 Yes [id number] TAKE 2 [facility] 50 mg 2-14 TABLETS BY [facility] of tablet 00:00: MOUTH [place] 00 EVERY 8 Medical HOURS Branch PRIMIDONE 2021- Yes [id number] TAKE 2 [facility] 50 mg 2-14 TABLETS BY [facility] of tablet 00:00: MOUTH [place] 00 EVERY 8 Medical HOURS Branch PRIMIDONE 2021- Yes [id number] TAKE 2 [facility] 50 mg 2-14 TABLETS BY [facility] of tablet 00:00: MOUTH [place] 00 EVERY 8 Medical HOURS Branch GABAPENTIN 2021- Yes [id number] TAKE 2 [facility] 300 mg 2-14 CAPSULES ity of capsule 00:00: BY MOUTH [place] 00 TWICE Medical DAILY. Branch PRIMIDONE 2021- Yes [id number] TAKE 2 [facility] n[facility] 50 mg 2-14 TABLETS BY [facility] of tablet 00:00: MOUTH [place] 00 EVERY 8 Medical HOURS Branch PRIMIDONE 2021- Yes [id number] TAKE 2 [facility] 50 mg 2-14 TABLETS BY [facility] of tablet 00:00: MOUTH [place] 00 EVERY 8 Medical HOURS Branch GABAPENTIN 2021-1 Yes [id number] TAKE 2 [facility] 300 mg 2-14 CAPSULES ity of capsule 00:00: BY MOUTH [place] 00 TWICE Medical DAILY. Branch PRIMIDONE 2021- Yes [id number] TAKE 2 [facility] n[facility] 50 mg 2-14 TABLETS BY [facility] of tablet 00:00: MOUTH [place] 00 EVERY 8 Medical HOURS Branch GABAPENTIN 2021-1 Yes [id number] TAKE 2 [facility] 300 mg 2-14 CAPSULES ity of capsule 00:00: BY MOUTH [place] 00 TWICE Medical DAILY. Branch PRIMIDONE 2021- Yes [id number] TAKE 2 [facility] 50 mg 2-14 TABLETS BY [facility] of tablet 00:00: MOUTH [place] 00 EVERY 8 Medical HOURS Branch GABAPENTIN 2021- Yes [id number] TAKE 2 [facility] 300 mg 2-14 CAPSULES ity of capsule 00:00: BY MOUTH [place] 00 TWICE Medical DAILY. Branch PRIMIDONE 2021-03 Yes [id number] TAKE 2 [facility] 50 mg 2-14 TABLETS BY [facility] of tablet 00:00: MOUTH [place] 00 EVERY 8 Medical HOURS Branch GABAPENTIN 2021- Yes [id number] TAKE 2 [facility] 300 mg 2-14 CAPSULES ity of capsule 00:00: BY MOUTH [place] 00 TWICE Medical DAILY. Branch PRIMIDONE 2021-03 Yes [id number] TAKE 2 [facility] n[facility] 50 mg 2-14 TABLETS BY [facility] of tablet 00:00: MOUTH [place] 00 EVERY 8 Medical HOURS Branch GABAPENTIN 2021-03 Yes [id number] TAKE 2 [facility] 300 mg 2-14 CAPSULES ity of capsule 00:00: BY MOUTH [place] 00 TWICE Medical DAILY. Branch PRIMIDONE 2021-03 Yes [id number] TAKE 2 [facility] 50 mg 2-14 TABLETS BY [facility] of tablet 00:00: MOUTH [place] 00 EVERY 8 Medical HOURS Branch GABAPENTIN 2021-03 Yes [id number] TAKE 2 [facility] 300 mg 2-14 CAPSULES ity of capsule 00:00: BY MOUTH [place] 00 TWICE Medical DAILY. Branch PRIMIDONE 2021-03 Yes [id number] TAKE 2 [facility] 50 mg 2-14 TABLETS BY [facility] of tablet 00:00: MOUTH [place] 00 EVERY 8 Medical HOURS Branch GABAPENTIN 2021-033- No [id number] TAKE 2 [facility] 300 mg 2-14 01-17 CAPSULES ity of capsule 00:00: 00:00 BY MOUTH [place] 00 :00 TWICE Medical DAILY. Branch warfarin 2021-03 Yes [id number] 7.5mg TAKE 1 [facility] 7.5 mg 1-30 TABLET BY it[facility] of tablet 00:00: MOUTH [place] 00 EVERY Medical EVENING Branch warfarin 2021- Yes [id number] 7.5mg TAKE 1 [facility] 7.5 mg 1-30 TABLET BY ity of tablet 00:00: MOUTH [place] 00 EVERY Medical EVENING Branch warfarin 2021- Yes [id number] 7.5mg TAKE 1 [facility] n[facility] 7.5 mg 1-30 TABLET BY [facility] of tablet 00:00: MOUTH [place] 00 EVERY Medical EVENING Branch warfarin 2021-03 Yes [id number] 7.5mg TAKE 1 [facility] 7.5 mg 1-30 TABLET BY ity of tablet 00:00: MOUTH EVERY Medical EVENING Branch warfarin 2021-03 Yes [id number] 7.5mg TAKE 1 [facility] 7.5 mg 1-30 TABLET BY ity of tablet 00:00: MOUTH EVERY Medical EVENING Branch warfarin 2021-03 Yes [id number] 7.5mg TAKE 1 [facility] 7.5 mg 1-30 TABLET BY ity of tablet 00:00: MOUTH EVERY Medical EVENING Branch warfarin 2021-03 Yes [id number] 7.5mg TAKE 1 [facility] 7.5 mg 1-30 TABLET BY ity of tablet 00:00: MOUTH EVERY Medical EVENING Branch warfarin 2021-03 Yes [id number] 7.5mg TAKE 1 [facility] 7.5 mg 1-30 TABLET BY ity of tablet 00:00: MOUTH EVERY Medical EVENING Branch warfarin 2021-03 Yes [id number] 7.5mg TAKE 1 [facility] 7.5 mg 1-30 TABLET BY [facility] of tablet 00:00: MOUTH EVERY Medical EVENING Branch warfarin 2021-03 Yes [id number] 7.5mg TAKE 1 [facility] 7.5 mg 1-30 TABLET BY [facility] of tablet 00:00: MOUTH EVERY Medical EVENING Branch warfarin 2021-03 Yes [id number] 7.5mg TAKE 1 [facility] 7.5 mg 1-30 TABLET BY [facility] of tablet 00:00: MOUTH EVERY Medical EVENING Branch warfarin 2021-03 Yes [id number] 7.5mg TAKE 1 [facility] 7.5 mg 1-30 TABLET BY ity of tablet 00:00: MOUTH EVERY Medical EVENING Branch warfarin 2021-03 Yes [id number] 7.5mg TAKE 1 [facility] 7.5 mg 1-30 TABLET BY ity of tablet 00:00: MOUTH 00 EVERY Medical EVENING Branch warfarin 2021-03 Yes [id number] 7.5mg TAKE 1 [facility] 7.5 mg 1-30 TABLET BY [facility] of tablet 00:00: MOUTH EVERY Medical EVENING Branch warfarin 2021-03 Yes [id number] 7.5mg TAKE 1 [facility] 7.5 mg 1-30 TABLET BY [facility] of tablet 00:00: MOUTH [place] 00 EVERY Medical EVENING Branch warfarin 2021-03 Yes [id number] 7.5mg TAKE 1 [facility] 7.5 mg 1-30 TABLET BY ity of tablet 00:00: MOUTH 00 EVERY Medical EVENING Branch warfarin 2021-03 Yes [id number] 7.5mg TAKE 1 [facility] 7.5 mg 1-30 TABLET BY it[facility] of tablet 00:00: MOUTH EVERY Medical EVENING Branch warfarin 2021-03 Yes [id number] 7.5mg TAKE 1 [facility] 7.5 mg 1-30 TABLET BY [facility] of tablet 00:00: MOUTH 00 EVERY Medical EVENING Branch warfarin 2021-03 Yes [id number] 7.5mg TAKE 1 [facility] 7.5 mg 1-30 TABLET BY ity of tablet 00:00: MOUTH 00 EVERY Medical EVENING Branch warfarin 2021-03 2023- No [id number] 7.5mg TAKE 1 [facility] 7.5 mg 1-30 03-13 TABLET BY [facility] of tablet 00:00: 00:00 MOUTH [place] 00 :00 EVERY Medical EVENING Branch benzonatate 2021-03 Yes [id number] 200mg Take 1 [facility] 200 mg 1-28 capsule by [facility] of capsule 00:00: mouth [place] (three) Medical times Branch daily as needed for Cough. benzonatate 2021-03 Yes [id number] 200mg Take 1 [facility] 200 mg 1-28 capsule by [facility] of capsule 00:00: mouth [place] (three) Medical times Branch daily as needed for Cough. benzonatate 2021-03 Yes [id number] 200mg Take 1 [facility] 200 mg 1-28 capsule by [facility] of capsule 00:00: mouth [place] (three) Medical times Branch daily as needed for Cough. benzonatate 2021-03 Yes [id number] 200mg Take 1 [facility] 200 mg 1-28 capsule by [facility] of capsule 00:00: mouth [place] (three) Medical times Branch daily as needed for Cough. benzonatate 2021-03 Yes [id number] 200mg Take 1 [facility] 200 mg 1-28 capsule by [facility] of capsule 00:00: mouth 3 [place] (three) Medical times Branch daily as needed for Cough. benzonatate 2021-03 Yes [id number] 200mg Take 1 [facility] 200 mg 1-28 capsule by [facility] of capsule 00:00: mouth 3 (three) Medical times Branch daily as needed for Cough. benzonatate 2021-03 Yes [id number] 200mg Take 1 [facility] 200 mg 1-28 capsule by [facility] of capsule 00:00: mouth (three) Medical times Branch daily as needed for Cough. benzonatate 2021-03 Yes [id number] 200mg Take 1 [facility] 200 mg 1-28 capsule by [facility] of capsule 00:00: mouth (three) Medical times Branch daily as needed for Cough. benzonatate 2021-03 Yes [id number] 200mg Take 1 [facility] 200 mg 1-28 capsule by [facility] of capsule 00:00: mouth (three) Medical times Branch daily as needed for Cough. benzonatate 2021-03 Yes [id number] 200mg Take 1 [facility] 200 mg 1-28 capsule by [facility] of capsule 00:00: mouth (three) Medical times Branch daily as needed for Cough. benzonatate 2021-03 Yes [id number] 200mg Take 1 [facility] 200 mg 1-28 capsule by [facility] of capsule 00:00: mouth (three) Medical times Branch daily as needed for Cough. benzonatate 2021-03 Yes [id number] 200mg Take 1 [facility] 200 mg 1-28 capsule by [facility] of capsule 00:00: mouth (three) Medical times Branch daily as needed for Cough. benzonatate 2021-03 Yes [id number] 200mg Take 1 [facility] 200 mg 1-28 capsule by [facility] of capsule 00:00: mouth (three) Medical times Branch daily as needed for Cough. benzonatate 2021-03 Yes [id number] 200mg Take 1 [facility] 200 mg 1-28 capsule by [facility] of capsule 00:00: mouth (three) Medical times Branch daily as needed for Cough. benzonatate 2021-03 Yes [id number] 200mg Take 1 [facility] 200 mg 1-28 capsule by [facility] of capsule 00:00: mouth (three) Medical times Branch daily as needed for Cough. benzonatate 2021-03 Yes [id number] 200mg Take 1 [facility] 200 mg 1-28 capsule by [facility] of capsule 00:00: mouth (three) Medical times Branch daily as needed for Cough. benzonatate 2021-03 Yes [id number] 200mg Take 1 [facility] 200 mg 1-28 capsule by [facility] of capsule 00:00: mouth 3 [place] (three) Medical times Branch daily as needed for Cough. benzonatate 2021-03 Yes [id number] 200mg Take 1 [facility] 200 mg 1-28 capsule by [facility] of capsule 00:00: mouth 3 [place] (three) Medical times Branch daily as needed for Cough. benzonatate 2021-03 Yes [id number] 200mg Take 1 [facility] 200 mg 1-28 capsule by [facility] of capsule 00:00: mouth 3 (three) Medical times Branch daily as needed for Cough. benzonatate 2021-03 Yes [id number] 200mg Take 1 [facility] 200 mg 1-28 capsule by [facility] of capsule 00:00: mouth 3 [place] (three) Medical times Branch daily as needed for Cough. benzonatate 2021-03 Yes [id number] 200mg Take 1 [facility] 200 mg 1-28 capsule by [facility]y of capsule 00:00: mouth 3 [place] (three) Medical times Branch daily as needed for Cough. benzonatate 2021-03 Yes [id number] 200mg Take 1 [facility] 200 mg 1-28 capsule by [facility]y of capsule 00:00: mouth 3 [place] (three) Medical times Branch daily as needed for Cough. benzonatate 2021-03 Yes [id number] 200mg Take 1 [facility] 200 mg 1-28 capsule by [facility]y of capsule 00:00: mouth 3 [place] (three) Medical times Branch daily as needed for Cough. benzonatate 2021-03 Yes [id number] 200mg Take 1 [facility] 200 mg 1-28 capsule by [facility] of capsule 00:00: mouth 3 [place] (three) Medical times Branch daily as needed for Cough. benzonatate 2021-03 Yes [id number] 200mg Take 1 [facility] 200 mg 1-28 capsule by [facility]y of capsule 00:00: mouth 3 [place] (three) Medical times Branch daily as needed for Cough. cephALEXin 2021-03 Yes [id number] 500mg Take 1 [facility] 500 mg 1-28 capsule by ity of capsule 00:00: mouth 4 [place] 00 (four) Medical times Branch daily. benzonatate 2021-03 Yes [id number] 200mg Take 1 [facility] 200 mg 1-28 capsule by ity of capsule 00:00: mouth 3 [place] 00 (three) Medical times Branch daily as needed for Cough. cephALEXin 2021- Yes [id number] 500mg Take 1 [facility] 500 mg 1-28 capsule by [facility]y of capsule 00:00: mouth (four) Medical times Branch daily. benzonatate 2021-1 Yes [id number] 200mg Take 1 [facility] 200 mg 1-28 capsule by [facility] of capsule 00:00: mouth 3 (three) Medical times Branch daily as needed for Cough. cephALEXin 2021- Yes [id number] 500mg Take 1 [facility] 500 mg 1-28 capsule by [facility] of capsule 00:00: mouth 4 (four) Medical times Branch daily. benzonatate 2021- Yes [id number] 200mg Take 1 [facility] 200 mg 1-28 capsule by [facility] of capsule 00:00: mouth 3 [place] (three) Medical times Branch daily as needed for Cough. cephALEXin 2021- Yes [id number] 500mg Take 1 [facility] 500 mg 1-28 capsule by [facility] of capsule 00:00: mouth [place] (four) Medical times Branch daily. benzonatate 2021- Yes [id number] 200mg Take 1 [facility] 200 mg 1-28 capsule by [facility] of capsule 00:00: mouth [place] (three) Medical times Branch daily as needed for Cough. cephALEXin 2021- Yes [id number] 500mg Take 1 [facility] 500 mg 1-28 capsule by [facility] of capsule 00:00: mouth [place] (four) Medical times Branch daily. benzonatate 2021- Yes [id number] 200mg Take 1 [facility] 200 mg 1-28 capsule by [facility] of capsule 00:00: mouth [place] (three) Medical times Branch daily as needed for Cough. cephALEXin 2021- Yes [id number] 500mg Take 1 [facility] 500 mg 1-28 capsule by [facility] of capsule 00:00: mouth [place] (four) Medical times Branch daily. benzonatate 2-1 Yes [id number] 200mg Take 1 [facility] 200 mg 1-28 capsule by [facility] capsule 00:00: mouth 3 [place] (three) Medical times Branch daily as needed for Cough. cephALEXin 2021- Yes [id number] 500mg Take 1 [facility] 500 mg 1-28 capsule by [facility] capsule 00:00: mouth [place] (four) Medical times Branch daily. benzonatate 2022-1 Yes [id number] 200mg Take 1 [facility] 200 mg 1-28 capsule by [facility] capsule 00:00: mouth 3 (three) Medical times Branch daily as needed for Cough. cephALEXin 2021-03 Yes [id number] 500mg Take 1 [facility] 500 mg 1-28 capsule by [facility] capsule 00:00: mouth 4 (four) Medical times Branch daily. benzonatate 2021-03 Yes [id number] 200mg Take 1 [facility] 200 mg 1-28 capsule by [facility] capsule 00:00: mouth 3 (three) Medical times Branch daily as needed for Cough. cephALEXin 2021-03 Yes [id number] 500mg Take 1 [facility] 500 mg 1-28 capsule by [facility] capsule 00:00: mouth (four) Medical times Branch daily. benzonatate 2021-03 Yes [id number] 200mg Take 1 [facility] 200 mg 1-28 capsule by [facility] capsule 00:00: mouth (three) Medical times Branch daily as needed for Cough. benzonatate 2021-03 Yes [id number] 200mg Take 1 [facility] 200 mg 1-28 capsule by [facility] capsule 00:00: mouth (three) Medical times Branch daily as needed for Cough. benzonatate 2021-03 Yes [id number] 200mg Take 1 [facility] 200 mg 1-28 capsule by [facility] capsule 00:00: mouth (three) Medical times Branch daily as needed for Cough. benzonatate 2021-03 Yes [id number] 200mg Take 1 [facility] 200 mg 1-28 capsule by [facility] capsule 00:00: mouth (three) Medical times Branch daily as needed for Cough. benzonatate 2021-03 Yes [id number] 200mg Take 1 [facility] 200 mg 1-28 capsule by [facility] capsule 00:00: mouth (three) Medical times Branch daily as needed for Cough. benzonatate 2021-03 Yes [id number] 200mg Take 1 [facility] 200 mg 1-28 capsule by [facility] capsule 00:00: mouth 3 (three) Medical times Branch daily as needed for Cough. benzonatate 2021-03 Yes [id number] 200mg Take 1 [facility] 200 mg 1-28 capsule by [facility] capsule 00:00: mouth (three) Medical times Branch daily as needed for Cough. benzonatate 2021-03 Yes [id number] 200mg Take 1 [facility] 200 mg 1-28 capsule by [facility] capsule 00:00: mouth 3 [place] 00 (three) Medical times Branch daily as needed for Cough. benzonatate 2021-03 Yes [id number] 200mg Take 1 [facility] 200 mg 1-28 capsule by [facility] capsule 00:00: mouth 3 [place] 00 (three) Medical times Branch daily as needed for Cough. benzonatate 2021-03 Yes [id number] 200mg Take 1 [facility] 200 mg 1-28 capsule by [facility] capsule 00:00: mouth 3 [place] 00 (three) Medical times Branch daily as needed for Cough. benzonatate 2021-03 Yes [id number] 200mg Take 1 [facility] 200 mg 1-28 capsule by [facility] capsule 00:00: mouth 3 [place] 00 (three) Medical times Branch daily as needed for Cough. benzonatate 2021-03 Yes [id number] 200mg Take 1 [facility] 200 mg 1-28 capsule by [facility] capsule 00:00: mouth 3 [place] 00 (three) Medical times Branch daily as needed for Cough. benzonatate 2021-03 Yes [id number] 200mg Take 1 [facility] 200 mg 1-28 capsule by [facility] capsule 00:00: mouth 3 [place] 00 (three) Medical times Branch daily as needed for Cough. cephALEXin 2021-03 No [id number] 500mg Take 1 [facility] 500 mg 1-28 12-14 capsule by [facility] capsule 00:00: 00:00 mouth 4 [place] 00 :00 (four) Medical times Branch daily. cephALEXin 2021-03- No [id number] 500mg Take 1 [facility] 500 mg 1-28 12-14 capsule by [facility] capsule 00:00: 00:00 mouth 4 [place] 00 :00 (four) Medical times Branch daily. cephALEXin 2021-03- No [id number] 500mg Take 1 [facility] 500 mg 1-28 12-14 capsule by [facility] capsule 00:00: 00:00 mouth 4 [place] 00 :00 (four) Medical times Branch daily. azithromyci 2021-03 Yes [id number] 500mg Take 1 [facility] n 500 mg 1-23 tablet by [facility] tablet 00:00: mouth in [place] 00 the Medical morning. Branch azithromyci 2021-03 Yes [id number] 500mg Take 1 [facility] n 500 mg 1-23 tablet by [facility] tablet 00:00: mouth in [place] 00 the Medical morning. Branch azithromyci 2021-03- No [id number] 500mg Take 1 [facility] n 500 mg 1-23 - tablet by [facility] o f tablet 00:00: 00:00 mouth in [place] 00 :00 the Medical morning. Branch azithromyci 2021-03- No [id number] 500mg Take 1 [facility] n 500 mg 1-23 02-06 tablet by it[facility] o f tablet 00:00: 00:00 mouth in [place] 00 :00 the Medical morning. Branch CARVEDILOL 2021-03 Yes [id number] TAKE 1 [facility] 6.25 mg 1-21 TABLET BY [facility] tablet 00:00: MOUTH [place] 00 TWICE Medical DAILY WITH Branch MEALS CARVEDILOL 2021-03 Yes [id number] TAKE 1 [facility] 6.25 mg 1-21 TABLET BY [facility] of tablet 00:00: MOUTH [place] 00 TWICE Medical DAILY WITH Branch MEALS CARVEDILOL 2021-03 Yes [id number] TAKE 1 [facility] 6.25 mg 1-21 TABLET BY [facility] of tablet 00:00: MOUTH [place] 00 TWICE Medical DAILY WITH Branch MEALS CARVEDILOL 2021-03 Yes [id number] TAKE 1 [facility] 6.25 mg 1-21 TABLET BY [facility] of tablet 00:00: MOUTH [place] 00 TWICE Medical DAILY WITH Branch MEALS CARVEDILOL 2021-03 Yes [id number] TAKE 1 [facility] 6.25 mg 1-21 TABLET BY [facility] of tablet 00:00: MOUTH [place] 00 TWICE Medical DAILY WITH Branch MEALS CARVEDILOL 2021-03 Yes [id number] TAKE 1 [facility] 6.25 mg 1-21 TABLET BY [facility] of tablet 00:00: MOUTH [place] 00 TWICE Medical DAILY WITH Branch MEALS CARVEDILOL 2021-03 Yes [id number] TAKE 1 [facility] 6.25 mg 1-21 TABLET BY [facility] of tablet 00:00: MOUTH [place] 00 TWICE Medical DAILY WITH Branch MEALS CARVEDILOL 2021-03 Yes [id number] TAKE 1 [facility] 6.25 mg 1-21 TABLET BY [facility] tablet 00:00: MOUTH [place] 00 TWICE Medical DAILY WITH Branch MEALS CARVEDILOL 2021-03 Yes [id number] TAKE 1 [facility] 6.25 mg 1-21 TABLET BY [facility] of tablet 00:00: MOUTH [place] 00 TWICE Medical DAILY WITH Branch MEALS CARVEDILOL 2021-03 Yes [id number] TAKE 1 [facility] 6.25 mg 1-21 TABLET BY [facility] of tablet 00:00: MOUTH TWICE Medical DAILY WITH Branch MEALS CARVEDILOL 2021-03 Yes [id number] TAKE 1 [facility] 6.25 mg 1-21 TABLET BY [facility] of tablet 00:00: MOUTH TWICE Medical DAILY WITH Branch MEALS CARVEDILOL 2021-03 Yes [id number] TAKE 1 [facility] 6.25 mg 1-21 TABLET BY [facility] of tablet 00:00: MOUTH TWICE Medical DAILY WITH Branch MEALS CARVEDILOL 2021-03 Yes [id number] TAKE 1 [facility] 6.25 mg 1-21 TABLET BY [facility] of tablet 00:00: MOUTH TWICE Medical DAILY WITH Branch MEALS CARVEDILOL 2021-03 Yes [id number] TAKE 1 [facility] 6.25 mg 1-21 TABLET BY [facility] tablet 00:00: MOUTH TWICE Medical DAILY WITH Branch MEALS CARVEDILOL 2021-03 Yes [id number] TAKE 1 [facility] 6.25 mg 1-21 TABLET BY [facility] of tablet 00:00: MOUTH TWICE Medical DAILY WITH Branch MEALS CARVEDILOL 2021-03 Yes [id number] TAKE 1 [facility] 6.25 mg 1-21 TABLET BY [facility] of tablet 00:00: MOUTH TWICE Medical DAILY WITH Branch MEALS CARVEDILOL 2021-03 Yes [id number] TAKE 1 [facility] 6.25 mg 1-21 TABLET BY [facility] of tablet 00:00: MOUTH TWICE Medical DAILY WITH Branch MEALS CARVEDILOL 2021-03 Yes [id number] TAKE 1 [facility] 6.25 mg 1-21 TABLET BY [facility] of tablet 00:00: MOUTH TWICE Medical DAILY WITH Branch MEALS CARVEDILOL 2021-03 Yes [id number] TAKE 1 [facility] 6.25 mg 1-21 TABLET BY [facility] of tablet 00:00: MOUTH TWICE Medical DAILY WITH Branch MEALS CARVEDILOL 2021-03 Yes [id number] TAKE 1 [facility] 6.25 mg 1-21 TABLET BY [facility] of tablet 00:00: MOUTH 00 TWICE Medical DAILY WITH Branch MEALS CARVEDILOL 2021-03 Yes [id number] TAKE 1 [facility] 6.25 mg 1-21 TABLET BY [facility] tablet 00:00: MOUTH 00 TWICE Medical DAILY WITH Branch MEALS CARVEDILOL 2021-03 Yes [id number] TAKE 1 [facility] 6.25 mg 1-21 TABLET BY [facility] of tablet 00:00: MOUTH TWICE Medical DAILY WITH Branch MEALS CARVEDILOL 2021-03 Yes [id number] TAKE 1 [facility] 6.25 mg 1-21 TABLET BY [facility] of tablet 00:00: MOUTH TWICE Medical DAILY WITH Branch MEALS CARVEDILOL 2021-03 Yes [id number] TAKE 1 [facility] 6.25 mg 1-21 TABLET BY [facility] of tablet 00:00: MOUTH TWICE Medical DAILY WITH Branch MEALS CARVEDILOL 2021-03 Yes [id number] TAKE 1 [facility] 6.25 mg 1-21 TABLET BY [facility] of tablet 00:00: MOUTH TWICE Medical DAILY WITH Branch MEALS CARVEDILOL 2021-03 Yes [id number] TAKE 1 [facility] 6.25 mg 1-21 TABLET BY [facility] of tablet 00:00: MOUTH TWICE Medical DAILY WITH Branch MEALS CARVEDILOL 2021-03 Yes [id number] TAKE 1 [facility] 6.25 mg 1-21 TABLET BY [facility] of tablet 00:00: MOUTH TWICE Medical DAILY WITH Branch MEALS CARVEDILOL 2021-03 Yes [id number] TAKE 1 [facility] 6.25 mg 1-21 TABLET BY [facility] of tablet 00:00: MOUTH 00 TWICE Medical DAILY WITH Branch MEALS CARVEDILOL 2021-03 Yes [id number] TAKE 1 [facility] 6.25 mg 1-21 TABLET BY [facility] of tablet 00:00: MOUTH 00 TWICE Medical DAILY WITH Branch MEALS CARVEDILOL 2021-03 Yes [id number] TAKE 1 [facility] 6.25 mg 1-21 TABLET BY [facility] tablet 00:00: MOUTH 00 TWICE Medical DAILY WITH Branch MEALS CARVEDILOL 2021-03 Yes [id number] TAKE 1 [facility] 6.25 mg 1-21 TABLET BY [facility] of tablet 00:00: MOUTH 00 TWICE Medical DAILY WITH Branch MEALS CARVEDILOL 2021-03 Yes [id number] TAKE 1 [facility] 6.25 mg 1-21 TABLET BY [facility] of tablet 00:00: MOUTH [place] 00 TWICE Medical DAILY WITH Branch MEALS CARVEDILOL 2021-03 Yes [id number] TAKE 1 [facility] 6.25 mg 1-21 TABLET BY [facility] of tablet 00:00: MOUTH 00 TWICE Medical DAILY WITH Branch MEALS CARVEDILOL 2021-03 Yes [id number] TAKE 1 [facility] 6.25 mg 1-21 TABLET BY [facility] of tablet 00:00: MOUTH [place] 00 TWICE Medical DAILY WITH Branch MEALS CARVEDILOL 2021-03 Yes [id number] TAKE 1 [facility] 6.25 mg 1-21 TABLET BY [facility] of tablet 00:00: MOUTH [place] 00 TWICE Medical DAILY WITH Branch MEALS CARVEDILOL 2021-03 Yes [id number] TAKE 1 [facility] 6.25 mg 1-21 TABLET BY [facility] of tablet 00:00: MOUTH TWICE Medical DAILY WITH Branch MEALS CARVEDILOL 2021-03 Yes [id number] TAKE 1 [facility] 6.25 mg 1-21 TABLET BY [facility] of tablet 00:00: MOUTH TWICE Medical DAILY WITH Branch MEALS CARVEDILOL 2021-03 Yes [id number] TAKE 1 [facility] 6.25 mg 1-21 TABLET BY [facility] of tablet 00:00: MOUTH 00 TWICE Medical DAILY WITH Branch MEALS CARVEDILOL 2021-03 Yes [id number] TAKE 1 [facility] 6.25 mg 1-21 TABLET BY [facility] of tablet 00:00: MOUTH 00 TWICE Medical DAILY WITH Branch MEALS CARVEDILOL 2021-03 Yes [id number] TAKE 1 [facility] 6.25 mg 1-21 TABLET BY [facility] of tablet 00:00: MOUTH 00 TWICE Medical DAILY WITH Branch MEALS CARVEDILOL 2021-03 Yes [id number] TAKE 1 [facility] 6.25 mg 1-21 TABLET BY [facility] of tablet 00:00: MOUTH 00 TWICE Medical DAILY WITH Branch MEALS CARVEDILOL 2021-03 Yes [id number] TAKE 1 [facility] 6.25 mg 1-21 TABLET BY [facility] of tablet 00:00: MOUTH 00 TWICE Medical DAILY WITH Branch MEALS CARVEDILOL 2021-03 Yes [id number] TAKE 1 [facility] 6.25 mg 1-21 TABLET BY [facility] of tablet 00:00: MOUTH [place] 00 TWICE Medical DAILY WITH Branch MEALS CARVEDILOL 2021-03 Yes [id number] TAKE 1 [facility] 6.25 mg 1-21 TABLET BY [facility] of tablet 00:00: MOUTH [place] 00 TWICE Medical DAILY WITH Branch MEALS CARVEDILOL 2021-03 Yes [id number] TAKE 1 [facility] 6.25 mg 1-21 TABLET BY [facility] of tablet 00:00: MOUTH [place] 00 TWICE Medical DAILY WITH Branch MEALS CARVEDILOL 2021-03 Yes [id number] TAKE 1 [facility] 6.25 mg 1-21 TABLET BY [facility] of tablet 00:00: MOUTH [place] 00 TWICE Medical DAILY WITH Branch MEALS CARVEDILOL 2021-03 Yes [id number] TAKE 1 [facility] 6.25 mg 1-21 TABLET BY [facility] of tablet 00:00: MOUTH [place] 00 TWICE Medical DAILY WITH Branch MEALS CARVEDILOL 2021-03 Yes [id number] TAKE 1 [facility] 6.25 mg 1-21 TABLET BY [facility] of tablet 00:00: MOUTH TWICE Medical DAILY WITH Branch MEALS CARVEDILOL 2021-03 Yes [id number] TAKE 1 [facility] 6.25 mg 1-21 TABLET BY it[facility] of tablet 00:00: MOUTH 00 TWICE Medical DAILY WITH Branch MEALS CARVEDILOL 2021-03 Yes [id number] TAKE 1 [facility] 6.25 mg 1-21 TABLET BY [facility] of tablet 00:00: MOUTH TWICE Medical DAILY WITH Branch MEALS CARVEDILOL 2021-03 Yes [id number] TAKE 1 [facility] 6.25 mg 1-21 TABLET BY [facility]y of tablet 00:00: MOUTH TWICE Medical DAILY WITH Branch MEALS allopurinoL [...] TAKE 1 AND M ethodi (BUMEX) 2 -12 1/2 st [facility] tablet 00:00: [facility] MOUTH IN l THE MORNING AND 1 TABLET IN THE EVENING BUMETanide 2021-03 Yes TAKE 1 AND M ethodi (BUMEX) 2 -12 1/2 st MG tablet 00:00: [facility] 00 MOUTH IN l THE MORNING AND 1 TABLET IN THE EVENING BUMETanide 2021-03 Yes TAKE 1 AND M ethodi (BUMEX) 2 -12 1/2 st MG tablet 00:00: [facility]TS [facility] 00 MOUTH IN l THE MORNING AND 1 TABLET IN THE EVENING KCL 10 mEq 2021-03- 10meq Take 10 [facility] tablet -11 11-11 mEq by ity of 15:34: 00:00 mouth [place] 27 :00 daily. Medical Branch warfarin 2021-03 Yes [id number] [facility] mg tablet 1-11 dosage 10 ity o f 00:00: mg ///[facility] and 7.5 Branch T/Th/S warfarin 5 2021-03 Yes [id number] [facility] mg tablet 1-11 dosage 10 ity o f 00:00: mg ///[facility] 7.5 Branch T/Th/S warfarin 5 2021-03 Yes [id number] [facility] mg tablet 1-11 dosage 10 ity o f 00:00: mg /W//[facility] and 7.5 Branch T/Th/S warfarin 5 2021-03 Yes [id number] [facility] mg tablet 1-11 dosage 10 ity o f 00:00: mg [place] /W//[facility] and 7.5 Branch T/Th/S warfarin 5 2021-03 Yes [id number] [facility] mg tablet 1-11 dosage 10 ity o f 00:00: mg [place] /W//[facility] and 7.5 Branch T/Th/S warfarin 5 2021-03 Yes [id number] [facility] mg tablet 1-11 dosage 10 ity o f 00:00: mg [place] /W/F/[facility] and 7.5 Branch T/Th/S warfarin 5 2021-03 Yes [id number] [facility] mg tablet 1-11 dosage 10 ity o f 00:00: mg /W/F/[facility] 7.5 Branch T/Th/S warfarin 5 2021-03 Yes [id number] [facility] mg tablet 1-11 dosage 10 ity o f 00:00: mg /W/F/[facility] 7.5 Branch T/Th/S warfarin 5 2021-03 Yes [id number] [facility] mg tablet 1-11 dosage 10 ity o f 00:00: mg /W/F/[facility] 7.5 Branch T/Th/S warfarin 5 2021-03 Yes [id number] [facility] mg tablet 1-11 dosage 10 ity o f 00:00: mg /W/F/[facility] 7.5 Branch T/Th/S warfarin 5 2021-03 Yes [id number] [facility] mg tablet 1-11 dosage 10 ity o f 00:00: mg /W/F/[facility] 7[facility]5 Branch T/Th/S warfarin 5 2021-03 Yes [id number] [facility] mg tablet 1-11 dosage 10 ity o f 00:00: mg /W/F/[facility] 7.5 Branch T//S warfarin 5 2021-03 Yes [id number] [facility] mg tablet 1-11 dosage 10 ity o f 00:00: mg /W/F/[facility] 7[facility]5 Branch T//S warfarin 5 2021-03 Yes [id number] [facility] mg tablet 1-11 dosage 10 ity o f 00:00: mg /W/F/[facility] 7[facility]5 Branch T/Th/S warfarin 5 2021-03 Yes [id number] [facility] mg tablet 1-11 dosage 10 ity o f 00:00: mg /W/F/[facility] 7[facility]5 Branch T/Th/S warfarin 5 2021-03 Yes [id number] [facility] mg tablet 1-11 dosage 10 ity o f 00:00: mg /W/F/[facility] 7[facility]5 Branch T/Th/S warfarin 5 2021-03 Yes [id number] [facility] mg tablet 1-11 dosage 10 ity o f 00:00: mg /W/F/[facility] 7[facility]5 Branch T/Th/S warfarin 5 2021-03 Yes [id number] [facility] mg tablet 1-11 dosage 10 ity o f 00:00: mg /W/F/[facility] 7[facility]5 Branch T/Th/S warfarin 5 2021-03 Yes [id number] [facility] mg tablet 1-11 dosage 10 ity o f 00:00: mg /W/F/[facility] 7[facility]5 Branch T/Th/S warfarin 5 2021-03 Yes [id number] [facility] mg tablet 1-11 dosage 10 ity o f 00:00: mg /W/F/[facility] 7[facility]5 Branch T/Th/S warfarin 5 2021-03 Yes [id number] [facility] mg tablet 1-11 dosage 10 ity o f 00:00: mg /W/F/[facility]5 Branch T/Th/S warfarin 5 2021-03 Yes [id number] [facility] mg tablet 1-11 dosage 10 ity o f 00:00: mg /W/F/[facility] 7[facility]5 Branch T/Th/S warfarin 5 2021-03 Yes [id number] [facility] mg tablet 1-11 dosage 10 ity o f 00:00: mg /W/F/[facility] 7[facility]5 Branch T/Th/S warfarin 5 2021-03 Yes [id number] [facility] mg tablet 1-11 dosage 10 ity o f 00:00: mg /W/F/[facility] 7[facility]5 Branch T/Th/S warfarin 5 2021-03 Yes [id number] [facility] mg tablet 1-11 dosage 10 ity o f 00:00: mg /W/F/[facility] 7[facility]5 Branch T/Th/S warfarin 5 2021-03 Yes [id number] [facility] mg tablet 1-11 dosage 10 ity o f 00:00: mg /W/F/[facility]5 Branch T/Th/S KCL 10 mEq 2021-03 Yes [id number] 10meq Take 1 [facility] tablet 1-11 tablet by ity of 00:00: mouth in [place] the Medical morning. Branch warfarin 5 2021-03 Yes [id number] [facility] mg tablet 1-11 dosage 10 ity o f 00:00: mg [place] ///[facility] and 7.5 Branch T/Th/S KCL 10 mEq 2021-03 Yes [id number] 10meq Take 1 [facility] tablet 1-11 tablet by ity of 00:00: mouth in [place] the Medical morning. Branch warfarin 2021-03 Yes [id number] [facility] mg tablet 1-11 dosage 10 ity o f 00:00: mg [place] ///[facility] and 7.5 Branch T/Th/S KCL 10 mEq 2021-03 Yes [id number] 10meq Take 1 [facility] tablet 1-11 tablet by ity of 00:00: mouth in [place] the Medical morning. Branch warfarin 2021-03 Yes [id number] [facility] mg tablet 1-11 dosage 10 ity o f 00:00: mg [place] ///[facility] and 7.5 Branch T/Th/S KCL 10 mEq 2021-03 Yes [id number] 10meq Take 1 [facility] tablet 1-11 tablet by ity of 00:00: mouth in [place] the Medical morning. Branch warfarin 2021-03 Yes [id number] [facility] mg tablet 1-11 dosage 10 ity o f 00:00: mg [place] [facility] and 7.5 Branch T/Th/S KCL 10 mEq 2021-03 Yes [id number] 10meq Take 1 [facility] tablet 1-11 tablet by ity of 00:00: mouth in [place] the Medical morning. Branch warfarin 2021-03 Yes [id number] [facility] mg tablet 1-11 dosage 10 ity o f 00:00: mg [place] [facility] and 7.5 Branch T/Th/S KCL 10 mEq 2021-03 Yes [id number] 10meq Take 1 [facility] tablet 1-11 tablet by ity of 00:00: mouth in [place] the Medical morning. Branch warfarin 2021-03 Yes [id number] [facility] mg tablet 1-11 dosage 10 ity o f 00:00: mg [place] ///[facility] and 7.5 Branch T/Th/S KCL 10 mEq 2021-03 Yes [id number] 10meq Take 1 [facility] tablet 1-11 tablet by ity of 00:00: mouth in [place] 00 the Medical morning. Branch warfarin 2021-03 Yes [id number] [facility] mg tablet 1-11 dosage 10 ity o f 00:00: mg [place] ///[facility] and 7.5 Branch T/Th/S KCL 10 mEq 2021-03 Yes [id number] 10meq Take 1 [facility] tablet 1-11 tablet by ity of 00:00: mouth in [place] the Medical morning. Branch warfarin 5 2021-03 Yes [id number] [facility] mg tablet 1-11 dosage 10 ity o f 00:00: mg [place] ///[facility] and 7.5 Branch T/Th/S KCL 10 mEq 2021-03 Yes [id number] 10meq Take 1 [facility] tablet 1-11 tablet by ity of 00:00: mouth in [place] the Medical morning. Branch warfarin 2021-03 Yes [id number] [facility] mg tablet 1-11 dosage 10 ity o f 00:00: mg [place] [facility]//[facility] and 7.5 Branch T/Th/S KCL 10 mEq 2021-03 Yes [id number] 10meq Take 1 [facility] tablet 1-11 tablet by ity of 00:00: mouth in [place] the Medical morning. Branch warfarin 2021-03 Yes [id number] Current [facility] mg tablet 1-11 dosage 10 ity o f 00:00: mg [place] [facility]//[facility] and 7.5 Branch T/Th/S KCL 10 mEq 2021-03 Yes [id number] 10meq Take 1 [facility] tablet 1-11 tablet by ity of 00:00: mouth in [place] the Medical morning. Branch warfarin 5 2021-03 Yes [id number] Current [facility] mg tablet 1-11 dosage 10 ity o f 00:00: mg [place] ///[facility] and 7.5 Branch T/Th/S KCL 10 mEq 2021-03 Yes [id number] 10meq Take 1 [facility] tablet 1-11 tablet by ity of 00:00: mouth in [place] 00 the Medical morning. Branch warfarin 2021-03 Yes [id number] [facility] mg tablet 1-11 dosage 10 ity o f 00:00: mg [place] ///[facility] and 7.5 Branch T/Th/S KCL 10 mEq 2021-03 Yes [id number] 10meq Take 1 [facility] tablet 1-11 tablet by ity of 00:00: mouth in [place] the Medical morning. Branch warfarin 5 2021-03 Yes [id number] [facility] mg tablet 1-11 dosage 10 ity o f 00:00: mg [place] ///[facility] and 7.5 Branch T/Th/S KCL 10 mEq 2021-03 Yes [id number] 10meq Take 1 [facility] tablet 1-11 tablet by ity of 00:00: mouth in [place] the Medical morning. Branch warfarin 2021-03 Yes [id number] Current [facility] mg tablet 1-11 dosage 10 ity o f 00:00: mg [place] [facility]//[facility] and 7.5 Branch T/Th/S KCL 10 mEq 2021-03 Yes [id number] 10meq Take 1 [facility] tablet 1-11 tablet by ity of 00:00: mouth in [place] the Medical morning. Branch warfarin 2021-03 Yes [id number] Current [facility] mg tablet 1-11 dosage 10 ity o f 00:00: mg [place] ///[facility] and 7.5 Branch T/Th/S KCL 10 mEq 2021-03 Yes [id number] 10meq Take 1 [facility] tablet 1-11 tablet by ity of 00:00: mouth in [place] the Medical morning. Branch warfarin 2021-03 Yes [id number] Current [facility] mg tablet 1-11 dosage 10 ity o f 00:00: mg [place] ///[facility] and 7.5 Branch T/Th/S KCL 10 mEq 2021-03 Yes [id number] 10meq Take 1 [facility] tablet 1-11 tablet by ity of 00:00: mouth in [place] the Medical morning. Branch warfarin 2021-03 Yes [id number] Current [facility] mg tablet 1-11 dosage 10 ity o f 00:00: mg [place] /W//[facility] and 7.5 Branch T/Th/S KCL 10 mEq 2021-03 Yes [id number] 10meq Take 1 [facility] tablet 1-11 tablet by ity of 00:00: mouth in [place] the Medical morning. Branch warfarin 5 2021-03 Yes [id number] [facility] mg tablet 1-11 dosage 10 ity o f 00:00: mg [place] ///[facility] and 7.5 Branch T/Th/S KCL 10 mEq 2021-03 Yes [id number] 10meq Take 1 [facility] tablet 1-11 tablet by ity of 00:00: mouth in [place] the Medical morning. Branch warfarin 5 2021-03 Yes [id number] [facility] mg tablet 1-11 dosage 10 ity o f 00:00: mg [place] ///[facility] and 7.5 Branch T/Th/S KCL 10 mEq 2021-03 Yes [id number] 10meq Take 1 [facility] tablet 1-11 tablet by ity of 00:00: mouth in [place] the Medical morning. Branch warfarin 5 2021-03 Yes [id number] [facility] mg tablet 1-11 dosage 10 ity o f 00:00: mg [place] ///[facility] and 7.5 Branch T/Th/S KCL 10 mEq 2021-03 Yes [id number] 10meq Take 1 [facility] tablet 1-11 tablet by ity of 00:00: mouth in [place] the Medical morning. Branch warfarin 2021-03 Yes [id number] [facility] mg tablet 1-11 dosage 10 ity o f 00:00: mg [place] ///[facility] and 7.5 Branch T/Th/S KCL 10 mEq 2021-03 Yes [id number] 10meq Take 1 [facility] tablet 1-11 tablet by ity of 00:00: mouth in [place] the Medical morning. Branch warfarin 5 2021-03 Yes [id number] [facility] mg tablet 1-11 dosage 10 ity o f 00:00: mg [place] /W//[facility] and 7.5 Branch T/Th/S KCL 10 mEq 2021-03 Yes [id number] 10meq Take 1 [facility] tablet 1-11 tablet by ity of 00:00: mouth in [place] the Medical morning. Branch warfarin 5 2021-03 Yes [id number] Current [facility] mg tablet 1-11 dosage 10 ity o f 00:00: mg [place] /W//[facility] and 7[facility]5 Branch T/Th/S KCL 10 mEq 2021-03 Yes [id number] 10meq Take 1 [facility] tablet 1-11 tablet by ity of 00:00: mouth in [place] 00 the Medical morning. Branch warfarin 2021-03 Yes [id number] [facility] mg tablet 1-11 dosage 10 ity o f 00:00: mg [place] ///[facility] and 7.5 Branch T/Th/S KCL 10 mEq 2021-03 Yes [id number] 10meq Take 1 [facility] tablet 1-11 tablet by ity of 00:00: mouth in [place] 00 the Medical morning. Branch warfarin 2021-03 Yes [id number] [facility] mg tablet 1-11 dosage 10 ity o f 00:00: mg [place] ///[facility] and 7.5 Branch T/Th/S KCL 10 mEq 2021-03 Yes [id number] 10meq Take 1 [facility] tablet 1-11 tablet by ity of 00:00: mouth in [place] the Medical morning. Branch warfarin 2021-03 Yes [id number] [facility] mg tablet 1-11 dosage 10 ity o f 00:00: mg [place] [facility]//[facility] and 7.5 Branch T/Th/S KCL 10 mEq 2021-03 Yes [id number] 10meq Take 1 [facility] tablet 1-11 tablet by ity of 00:00: mouth in [place] the Medical morning. Branch warfarin 2021-03 Yes [id number] [facility] mg tablet 1-11 dosage 10 ity o f 00:00: mg [place] [facility]//[facility] and 7.5 Branch T/Th/S KCL 10 mEq 2021-03 Yes [id number] 10meq Take 1 [facility] tablet 1-11 tablet by ity of 00:00: mouth in [place] the Medical morning. Branch warfarin 2021-03 Yes [id number] [facility] mg tablet 1-11 dosage 10 ity o f 00:00: mg [place] ///[facility] and 7.5 Branch T/Th/S KCL 10 mEq 2021-03 Yes [id number] 10meq Take 1 [facility] tablet 1-11 tablet by ity of 00:00: mouth in [place] the Medical morning. Branch warfarin 2021-03 Yes [id number] Current [facility] mg tablet 1-11 dosage 10 ity o f 00:00: mg [place] /W//[facility] and 7.5 Branch T/Th/S KCL 10 mEq 2021-03 Yes [id number] 10meq Take 1 [facility] tablet 1-11 tablet by ity of 00:00: mouth in [place] 00 the Medical morning. Branch warfarin 5 2021-03 Yes [id number] Current [facility] mg tablet 1-11 dosage 10 ity o f 00:00: mg [place] /W//[facility] and 7.5 Branch T/Th/S KCL 10 mEq 2021-03 Yes [id number] 10meq Take 1 [facility] tablet 1-11 tablet by ity of 00:00: mouth in [place] 00 the Medical morning. Branch warfarin 5 2021-03 Yes [id number] Current [facility] mg tablet 1-11 dosage 10 ity o f 00:00: mg [place] ///[facility] and 7.5 Branch T//S warfarin 5 2021-03 Yes [id number] Current [facility] mg tablet 1-11 dosage 10 ity o f 00:00: mg [place] ///[facility] and 7.5 Branch T//S warfarin 5 2021-03 Yes [id number] Current [facility] mg tablet 1-11 dosage 10 ity o f 00:00: mg [place] ///[facility] and 7.5 Branch T/Th/S warfarin 5 2021-03 Yes [id number] Current [facility] mg tablet 1-11 dosage 10 ity o f 00:00: mg [place] ///[facility] and 7.5 Branch T/Th/S KCL 10 mEq 2021-03- No [id number] 10meq Take 1 [facility] tablet 1-11 12-16 tablet by ity of 00:00: 00:00 mouth in [place] 00 :00 the Medical morning. Branch OMEPRAZOLE 2021-03 Yes [id number] 40mg TAKE 1 [facility] 40 mg 1-03 CAPSULE BY ity of capsule 00:00: MOUTH [place] DAILY Medical Branch OMEPRAZOLE 2021-03 Yes [id number] 40mg TAKE 1 [facility] 40 mg 1-03 CAPSULE BY ity of capsule 00:00: MOUTH [place] DAILY Medical Branch OMEPRAZOLE 2021-03 Yes [id number] 40mg TAKE 1 [facility] 40 mg 1-03 CAPSULE BY ity of capsule 00:00: MOUTH [place] DAILY Medical Branch OMEPRAZOLE 2021- Yes [id number] 40mg TAKE 1 [facility] 40 mg 1-03 CAPSULE BY ity of capsule 00:00: MOUTH [place] DAILY Medical Branch OMEPRAZOLE 2021-03 Yes [id number] 40mg TAKE 1 [facility] 40 mg 1-03 CAPSULE BY ity of capsule 00:00: MOUTH [place] DAILY Medical Branch OMEPRAZOLE 2021-03 Yes [id number] 40mg TAKE 1 [facility] 40 mg 1-03 CAPSULE BY ity of capsule 00:00: MOUTH [place] DAILY Medical Branch OMEPRAZOLE 2021-03 Yes [id number] 40mg TAKE 1 [facility] 40 mg 1-03 CAPSULE BY ity of capsule 00:00: MOUTH [place] DAILY Medical Branch OMEPRAZOLE 2021-03 Yes [id number] 40mg TAKE 1 [facility] 40 mg 1-03 CAPSULE BY ity of capsule 00:00: [facility] DAILY Medical Branch OMEPRAZOLE 2021-03 Yes [id number] 40mg TAKE 1 [facility] 40 mg 1-03 CAPSULE BY ity of capsule 00:00: MOUTH [place] DAILY Medical Branch OMEPRAZOLE 2021-03 Yes [id number] 40mg TAKE 1 [facility] 40 mg 1-03 CAPSULE BY ity of capsule 00:00: [facility] DAILY Medical Branch OMEPRAZOLE 2021- Yes [id number] 40mg TAKE 1 [facility] 40 mg 1-03 CAPSULE BY ity of capsule 00:00: [facility] DAILY Medical Branch OMEPRAZOLE 2021- Yes [id number] 40mg TAKE 1 [facility] 40 mg 1-03 CAPSULE BY ity of capsule 00:00: [facility] DAILY Medical Branch OMEPRAZOLE 2021- Yes [id number] 40mg TAKE 1 [facility] 40 mg 1-03 CAPSULE BY ity of capsule 00:00: MOUTH [place] DAILY Medical Branch OMEPRAZOLE 2021- Yes [id number] 40mg TAKE 1 [facility] 40 mg 1-03 CAPSULE BY ity of capsule 00:00: [facility] DAILY Medical Branch OMEPRAZOLE 2021- Yes [id number] 40mg TAKE 1 [facility] 40 mg 1-03 CAPSULE BY ity of capsule 00:00: [facility] DAILY Medical Branch OMEPRAZOLE 2021- Yes [id number] 40mg TAKE 1 [facility] 40 mg 1-03 CAPSULE BY ity of capsule 00:00: MOUTH [place] 00 DAILY Medical Branch OMEPRAZOLE 2021- Yes [id number] 40mg TAKE 1 [facility] 40 mg 1-03 CAPSULE BY ity of capsule 00:00: MOUTH [place] 00 DAILY Medical Branch OMEPRAZOLE 2021- Yes [id number] 40mg TAKE 1 [facility] 40 mg 1-03 CAPSULE BY ity of capsule 00:00: MOUTH [place] DAILY Medical Branch OMEPRAZOLE 2021- Yes [id number] 40mg TAKE 1 [facility] 40 mg 1-03 CAPSULE BY ity of capsule 00:00: MOUTH [place] 00 DAILY Medical Branch OMEPRAZOLE 2021- Yes [id number] 40mg TAKE 1 [facility] 40 mg 1-03 CAPSULE BY ity of capsule 00:00: MOUTH [place] DAILY Medical Branch OMEPRAZOLE 2021- Yes [id number] 40mg TAKE 1 [facility] 40 mg 1-03 CAPSULE BY ity of capsule 00:00: MOUTH [place] DAILY Medical Branch OMEPRAZOLE 2021- Yes [id number] 40mg TAKE 1 [facility] 40 mg 1-03 CAPSULE BY ity of capsule 00:00: MOUTH [place] DAILY Medical Branch OMEPRAZOLE 2021- Yes [id number] 40mg TAKE 1 [facility] 40 mg 1-03 CAPSULE BY ity of capsule 00:00: MOUTH [place] DAILY Medical Branch OMEPRAZOLE 2021- Yes [id number] 40mg TAKE 1 [facility] 40 mg 1-03 CAPSULE BY ity of capsule 00:00: MOUTH [place] DAILY Medical Branch OMEPRAZOLE 2021- Yes [id number] 40mg TAKE 1 [facility] 40 mg 1-03 CAPSULE BY ity of capsule 00:00: MOUTH [place] DAILY Medical Branch GABAPENTIN 2021- Yes [id number] TAKE 2 [facility] 300 mg 1-03 CAPSULES ity of capsule 00:00: BY MOUTH [place] TWICE Medical DAILY. Branch OMEPRAZOLE 2021- Yes [id number] 40mg TAKE 1 [facility] 40 mg 1-03 CAPSULE BY ity of capsule 00:00: MOUTH [place] DAILY Medical Branch GABAPENTIN 2021- Yes [id number] TAKE 2 [facility] 300 mg 1-03 CAPSULES ity of capsule 00:00: BY MOUTH [place] TWICE Medical DAILY. Branch OMEPRAZOLE 2021- Yes [id number] 40mg TAKE 1 [facility] 40 mg 1-03 CAPSULE BY ity of capsule 00:00: MOUTH [place] DAILY Medical Branch GABAPENTIN 2021- Yes [id number] TAKE 2 [facility] 300 mg 1-03 CAPSULES ity of capsule 00:00: BY MOUTH [place] 00 TWICE Medical DAILY. Branch OMEPRAZOLE 2021-03 Yes [id number] 40mg TAKE 1 [facility] 40 mg 1-03 CAPSULE BY ity of capsule 00:00: MOUTH [place] 00 DAILY Medical Branch GABAPENTIN 2021- Yes [id number] TAKE 2 [facility] 300 mg 1-03 CAPSULES ity of capsule 00:00: BY MOUTH [place] 00 TWICE Medical DAILY. Branch OMEPRAZOLE 2021-03 Yes [id number] 40mg TAKE 1 [facility] 40 mg 1-03 CAPSULE BY ity of capsule 00:00: MOUTH [place] 00 DAILY Medical Branch GABAPENTIN 2021- Yes [id number] TAKE 2 [facility] 300 mg 1-03 CAPSULES ity of capsule 00:00: BY MOUTH [place] 00 TWICE Medical DAILY. Branch OMEPRAZOLE 2021-03 Yes [id number] 40mg TAKE 1 [facility] 40 mg 1-03 CAPSULE BY ity of capsule 00:00: MOUTH [place] 00 DAILY Medical Branch GABAPENTIN 2021- Yes [id number] TAKE 2 [facility] 300 mg 1-03 CAPSULES ity of capsule 00:00: BY MOUTH [place] 00 TWICE Medical DAILY. Branch OMEPRAZOLE 2021-03 Yes [id number] 40mg TAKE 1 [facility] 40 mg 1-03 CAPSULE BY ity of capsule 00:00: MOUTH [place] 00 DAILY Medical Branch GABAPENTIN 2021- Yes [id number] TAKE 2 [facility] 300 mg 1-03 CAPSULES ity of capsule 00:00: BY MOUTH [place] 00 TWICE Medical DAILY. Branch OMEPRAZOLE 2021- Yes [id number] 40mg TAKE 1 [facility] 40 mg 1-03 CAPSULE BY ity of capsule 00:00: MOUTH [place] 00 DAILY Medical Branch GABAPENTIN 2021- Yes [id number] TAKE 2 [facility] 300 mg 1-03 CAPSULES ity of capsule 00:00: BY MOUTH [place] 00 TWICE Medical DAILY. Branch OMEPRAZOLE 2021-03 Yes [id number] 40mg TAKE 1 [facility] 40 mg 1-03 CAPSULE BY ity of capsule 00:00: MOUTH [place] 00 DAILY Medical Branch GABAPENTIN 2021- Yes [id number] TAKE 2 [facility] 300 mg 1-03 CAPSULES ity of capsule 00:00: BY MOUTH [place] 00 TWICE Medical DAILY. Branch OMEPRAZOLE 2021- Yes [id number] 40mg TAKE 1 [facility] 40 mg 1-03 CAPSULE BY ity of capsule 00:00: MOUTH [place] 00 DAILY Medical Branch GABAPENTIN 2021- Yes [id number] TAKE 2 [facility] 300 mg 1-03 CAPSULES ity of capsule 00:00: BY MOUTH [place] 00 TWICE Medical DAILY. Branch OMEPRAZOLE 2021- Yes [id number] 40mg TAKE 1 [facility] 40 mg 1-03 CAPSULE BY ity of capsule 00:00: MOUTH [place] 00 DAILY Medical Branch GABAPENTIN 2021- Yes [id number] TAKE 2 [facility] 300 mg 1-03 CAPSULES ity of capsule 00:00: BY MOUTH [place] 00 TWICE Medical DAILY. Branch OMEPRAZOLE 2021- Yes [id number] 40mg TAKE 1 [facility] 40 mg 1-03 CAPSULE BY ity of capsule 00:00: MOUTH [place] 00 DAILY Medical Branch GABAPENTIN 2021- Yes [id number] TAKE 2 [facility] 300 mg 1-03 CAPSULES ity of capsule 00:00: BY MOUTH [place] 00 TWICE Medical DAILY. Branch OMEPRAZOLE 2021-03 Yes [id number] 40mg TAKE 1 [facility] 40 mg 1-03 CAPSULE BY ity of capsule 00:00: MOUTH [place] 00 DAILY Medical Branch GABAPENTIN 2021- Yes [id number] TAKE 2 [facility] 300 mg 1-03 CAPSULES ity of capsule 00:00: BY MOUTH [place] 00 TWICE Medical DAILY. Branch OMEPRAZOLE 2021-03 Yes [id number] 40mg TAKE 1 [facility] 40 mg 1-03 CAPSULE BY ity of capsule 00:00: MOUTH [place] 00 DAILY Medical Branch GABAPENTIN 2021- Yes [id number] TAKE 2 [facility] 300 mg 1-03 CAPSULES ity of capsule 00:00: BY MOUTH [place] 00 TWICE Medical DAILY. Branch OMEPRAZOLE 2021- Yes [id number] 40mg TAKE 1 [facility] 40 mg 1-03 CAPSULE BY ity of capsule 00:00: MOUTH [place] 00 DAILY Medical Branch GABAPENTIN 2021- Yes [id number] TAKE 2 [facility] 300 mg 1-03 CAPSULES ity of capsule 00:00: BY MOUTH [place] 00 TWICE Medical DAILY. Branch OMEPRAZOLE 2021- Yes [id number] 40mg TAKE 1 [facility] 40 mg 1-03 CAPSULE BY ity of capsule 00:00: MOUTH [place] 00 DAILY Medical Branch GABAPENTIN 2021- Yes [id number] TAKE 2 [facility] 300 mg 1-03 CAPSULES ity of capsule 00:00: BY MOUTH [place] 00 TWICE Medical DAILY. Branch OMEPRAZOLE 2021- Yes [id number] 40mg TAKE 1 [facility] 40 mg 1-03 CAPSULE BY ity of capsule 00:00: MOUTH [place] 00 DAILY Medical Branch GABAPENTIN 2021- Yes [id number] TAKE 2 [facility] 300 mg 1-03 CAPSULES ity of capsule 00:00: BY MOUTH [place] 00 TWICE Medical DAILY. Branch OMEPRAZOLE 2021- Yes [id number] 40mg TAKE 1 [facility] 40 mg 1-03 CAPSULE BY ity of capsule 00:00: MOUTH [place] 00 DAILY Medical Branch GABAPENTIN 2021- Yes [id number] TAKE 2 [facility] 300 mg 1-03 CAPSULES ity of capsule 00:00: BY MOUTH [place] 00 TWICE Medical DAILY. Branch OMEPRAZOLE 2021-03 Yes [id number] 40mg TAKE 1 [facility] 40 mg 1-03 CAPSULE BY ity of capsule 00:00: MOUTH [place] 00 DAILY Medical Branch GABAPENTIN 2021- Yes [id number] TAKE 2 [facility] 300 mg 1-03 CAPSULES ity of capsule 00:00: BY MOUTH [place] 00 TWICE Medical DAILY. Branch OMEPRAZOLE 2021- Yes [id number] 40mg TAKE 1 [facility] 40 mg 1-03 CAPSULE BY ity of capsule 00:00: MOUTH [place] 00 DAILY Medical Branch GABAPENTIN 2021- Yes [id number] TAKE 2 [facility] 300 mg 1-03 CAPSULES ity of capsule 00:00: BY MOUTH [place] 00 TWICE Medical DAILY. Branch OMEPRAZOLE 2021- Yes [id number] 40mg TAKE 1 [facility] 40 mg 1-03 CAPSULE BY ity of capsule 00:00: MOUTH [place] 00 DAILY Medical Branch GABAPENTIN 2021- Yes [id number] TAKE 2 [facility] 300 mg 1-03 CAPSULES ity of capsule 00:00: BY MOUTH [place] 00 TWICE Medical DAILY. Branch OMEPRAZOLE 2021- Yes [id number] 40mg TAKE 1 [facility] 40 mg 1-03 CAPSULE BY ity of capsule 00:00: MOUTH [place] 00 DAILY Medical Branch GABAPENTIN 2021- Yes [id number] TAKE 2 [facility] 300 mg 1-03 CAPSULES ity of capsule 00:00: BY MOUTH [place] 00 TWICE Medical DAILY. Branch OMEPRAZOLE 2021- Yes [id number] 40mg TAKE 1 [facility] 40 mg 1-03 CAPSULE BY ity of capsule 00:00: MOUTH [place] 00 DAILY Medical Branch GABAPENTIN 2021- Yes [id number] TAKE 2 [facility] 300 mg 1-03 CAPSULES ity of capsule 00:00: BY MOUTH [place] 00 TWICE Medical DAILY. Branch OMEPRAZOLE 2021- Yes [id number] 40mg TAKE 1 [facility] 40 mg 1-03 CAPSULE BY ity of capsule 00:00: MOUTH [place] 00 DAILY Medical Branch GABAPENTIN 2021- Yes [id number] TAKE 2 [facility] 300 mg 1-03 CAPSULES ity of capsule 00:00: BY MOUTH [place] 00 TWICE Medical DAILY. Branch OMEPRAZOLE 2021-03 Yes [id number] 40mg TAKE 1 [facility] 40 mg 1-03 CAPSULE BY ity of capsule 00:00: MOUTH [place] 00 DAILY Medical Branch GABAPENTIN 2021- Yes [id number] TAKE 2 [facility] 300 mg 1-03 CAPSULES ity of capsule 00:00: BY MOUTH [place] 00 TWICE Medical DAILY. Branch OMEPRAZOLE 2021-03 Yes [id number] 40mg TAKE 1 [facility] 40 mg 1-03 CAPSULE BY ity of capsule 00:00: MOUTH [place] 00 DAILY Medical Branch GABAPENTIN 2021-03 Yes [id number] TAKE 2 [facility] 300 mg 1-03 CAPSULES ity of capsule 00:00: BY MOUTH [place] 00 TWICE Medical DAILY. Branch OMEPRAZOLE 2021-03 Yes [id number] 40mg TAKE 1 [facility] 40 mg 1-03 CAPSULE BY ity of capsule 00:00: MOUTH [place] 00 DAILY Medical Branch GABAPENTIN 2021- Yes [id number] TAKE 2 [facility] 300 mg 1-03 CAPSULES ity of capsule 00:00: BY MOUTH [place] 00 TWICE Medical DAILY. Branch OMEPRAZOLE 2021-03 Yes [id number] 40mg TAKE 1 [facility] 40 mg 1-03 CAPSULE BY ity of capsule 00:00: MOUTH [place] DAILY Medical Branch OMEPRAZOLE 2021-03 Yes [id number] 40mg TAKE 1 [facility] 40 mg 1-03 CAPSULE BY ity of capsule 00:00: MOUTH [place] DAILY Medical Branch OMEPRAZOLE 2021- Yes [id number] 40mg TAKE 1 [facility] 40 mg 1-03 CAPSULE BY ity of capsule 00:00: MOUTH [place] 00 DAILY Medical Branch OMEPRAZOLE 2021- Yes [id number] 40mg TAKE 1 [facility] 40 mg 1-03 CAPSULE BY ity of capsule 00:00: MOUTH [place] DAILY Medical Branch OMEPRAZOLE 2021-03 Yes [id number] 40mg TAKE 1 [facility] 40 mg 1-03 CAPSULE BY ity of capsule 00:00: MOUTH [place] 00 DAILY Medical Branch OMEPRAZOLE 2021-03 Yes [id number] 40mg TAKE 1 [facility] 40 mg 1-03 CAPSULE BY ity of capsule 00:00: MOUTH [place] 00 DAILY Medical Branch OMEPRAZOLE 2021-03 Yes [id number] 40mg TAKE 1 [facility] 40 mg 1-03 CAPSULE BY ity of capsule 00:00: MOUTH [place] 00 DAILY Medical Branch OMEPRAZOLE 2021-03 Yes [id number] 40mg TAKE 1 [facility] 40 mg 1-03 CAPSULE BY ity of capsule 00:00: MOUTH [place] 00 DAILY Medical Branch OMEPRAZOLE 2021-03 Yes [id number] 40mg TAKE 1 [facility] 40 mg 1-03 CAPSULE BY ity of capsule 00:00: MOUTH [place] 00 DAILY Medical Branch OMEPRAZOLE 2021-03 Yes [id number] 40mg TAKE 1 [facility] 40 mg 1-03 CAPSULE BY ity of capsule 00:00: MOUTH [place] 00 DAILY Medical Branch OMEPRAZOLE 2021-03 Yes [id number] 40mg TAKE 1 [facility] 40 mg 1-03 CAPSULE BY ity of capsule 00:00: MOUTH [place] 00 DAILY Medical Branch GABAPENTIN 2021-03- No [id number] TAKE 2 [facility] 300 mg 1-03 12-14 CAPSULES ity of capsule 00:00: 00:00 BY MOUTH [place] 00 :00 TWICE Medical DAILY. Branch GABAPENTIN 2021-03- No [id number] TAKE 2 [facility] 300 mg 1-03 12-14 CAPSULES ity of capsule 00:00: 00:00 BY MOUTH [place] 00 :00 TWICE Medical DAILY. Branch mexiletine 2021-03 Yes [id number] 200mg Take 1 [facility] 200 mg 0-27 capsule by ity of capsule 00:00: mouth [place] 00 every 8 Medical (eight) Branch hours. mexiletine 2021-03 Yes [id number] 200mg Take 1 [facility] 200 mg 0-27 capsule by ity of capsule 00:00: mouth [place] 00 every 8 Medical (eight) Branch hours. mexiletine 2021-03 Yes [id number] 200mg Take 1 [facility] 200 mg 0-27 capsule by ity of capsule 00:00: mouth [place] 00 every 8 Medical (eight) Branch hours. mexiletine 2021-03 Yes [id number] 200mg Take 1 [facility] 200 mg 0-27 capsule by ity of capsule 00:00: mouth [place] 00 every 8 Medical (eight) Branch hours. mexiletine 2021-03 Yes [id number] 200mg Take 1 [facility] 200 mg 0-27 capsule by ity of capsule 00:00: mouth [place] 00 every 8 Medical (eight) Branch hours. mexiletine 2021-03 Yes [id number] 200mg Take 1 [facility] 200 mg 0-27 capsule by ity of capsule 00:00: mouth [place] 00 every 8 Medical (eight) Branch hours. mexiletine 2021- Yes [id number] 200mg Take 1 [facility] 200 mg 0-27 capsule by ity of capsule 00:00: mouth [place] 00 every 8 Medical (eight) Branch hours. mexiletine 2021- Yes [id number] 200mg Take 1 [facility] 200 mg 0-27 capsule by ity of capsule 00:00: mouth [place] 00 every 8 Medical (eight) Branch hours. mexiletine 2021-03 Yes [id number] 200mg Take 1 [facility] 200 mg 0-27 capsule by ity of capsule 00:00: mouth [place] 00 every 8 Medical (eight) Branch hours. mexiletine 2021- Yes [id number] 200mg Take 1 [facility] 200 mg 0-27 capsule by ity of capsule 00:00: mouth [place] 00 every 8 Medical (eight) Branch hours. mexiletine 2021-03 Yes [id number] 200mg Take 1 [facility] 200 mg 0-27 capsule by ity of capsule 00:00: mouth [place] 00 every 8 Medical (eight) Branch hours. mexiletine 2021-03 Yes [id number] 200mg Take 1 [facility] 200 mg 0-27 capsule by ity of capsule 00:00: mouth [place] 00 every 8 Medical (eight) Branch hours. mexiletine 2021-03 Yes [id number] 200mg Take 1 [facility] 200 mg 0-27 capsule by ity of capsule 00:00: mouth [place] 00 every 8 Medical (eight) Branch hours. mexiletine 2021- Yes [id number] 200mg Take 1 [facility] 200 mg 0-27 capsule by ity of capsule 00:00: mouth [place] 00 every 8 Medical (eight) Branch hours. mexiletine 2021- Yes [id number] 200mg Take 1 [facility] 200 mg 0-27 capsule by ity of capsule 00:00: mouth [place] 00 every 8 Medical (eight) Branch hours. mexiletine 2021-1 Yes [id number] 200mg Take 1 [facility] 200 mg 0-27 capsule by ity of capsule 00:00: mouth [place] 00 every 8 Medical (eight) Branch hours. mexiletine 2021- Yes [id number] 200mg Take 1 [facility] 200 mg 0-27 capsule by ity of capsule 00:00: mouth [place] 00 every 8 Medical (eight) Branch hours. mexiletine 2021-1 Yes [id number] 200mg Take 1 [facility] 200 mg 0-27 capsule by ity of capsule 00:00: mouth [place] 00 every 8 Medical (eight) Branch hours. mexiletine 2021-1 Yes [id number] 200mg Take 1 [facility] 200 mg 0-27 capsule by ity of capsule 00:00: mouth [place] 00 every 8 Medical (eight) Branch hours. mexiletine 2021- Yes [id number] 200mg Take 1 [facility] 200 mg 0-27 capsule by ity of capsule 00:00: mouth [place] 00 every 8 Medical (eight) Branch hours. mexiletine 2021- Yes [id number] 200mg Take 1 [facility] 200 mg 0-27 capsule by ity of capsule 00:00: mouth [place] 00 every 8 Medical (eight) Branch hours. mexiletine 2021- Yes [id number] 200mg Take 1 [facility] 200 mg 0-27 capsule by ity of capsule 00:00: mouth [place] 00 every 8 Medical (eight) Branch hours. mexiletine 2021- Yes [id number] 200mg Take 1 [facility] 200 mg 0-27 capsule by ity of capsule 00:00: mouth [place] 00 every 8 Medical (eight) Branch hours. mexiletine 2021- Yes [id number] 200mg Take 1 [facility] 200 mg 0-27 capsule by ity of capsule 00:00: mouth [place] 00 every 8 Medical (eight) Branch hours. mexiletine 2021- Yes [id number] 200mg Take 1 [facility] 200 mg 0-27 capsule by ity of capsule 00:00: mouth [place] 00 every 8 Medical (eight) Branch hours. mexiletine 2021-1 Yes [id number] 200mg Take 1 [facility] 200 mg 0-27 capsule by ity of capsule 00:00: mouth [place] 00 every 8 Medical (eight) Branch hours. mexiletine 2021-1 Yes [id number] 200mg Take 1 [facility] 200 mg 0-27 capsule by ity of capsule 00:00: mouth [place] 00 every 8 Medical (eight) Branch hours. mexiletine 2021-1 Yes [id number] 200mg Take 1 [facility] 200 mg 0-27 capsule by ity of capsule 00:00: mouth [place] 00 every 8 Medical (eight) Branch hours. mexiletine 2021-1 Yes [id number] 200mg Take 1 [facility] 200 mg 0-27 capsule by ity of capsule 00:00: mouth [place] 00 every 8 Medical (eight) Branch hours. mexiletine 2021- Yes [id number] 200mg Take 1 [facility] 200 mg 0-27 capsule by ity of capsule 00:00: mouth [place] 00 every 8 Medical (eight) Branch hours. mexiletine 2021- Yes [id number] 200mg Take 1 [facility] 200 mg 0-27 capsule by ity of capsule 00:00: mouth [place] 00 every 8 Medical (eight) Branch hours. mexiletine 2021-03 Yes [id number] 200mg Take 1 [facility] 200 mg 0-27 capsule by ity of capsule 00:00: mouth [place] 00 every 8 Medical (eight) Branch hours. mexiletine 2021- Yes [id number] 200mg Take 1 [facility] 200 mg 0-27 capsule by ity of capsule 00:00: mouth [place] 00 every 8 Medical (eight) Branch hours. mexiletine 2021-03 Yes [id number] 200mg Take 1 [facility] 200 mg 0-27 capsule by ity of capsule 00:00: mouth [place] 00 every 8 Medical (eight) Branch hours. mexiletine 2021-03 Yes [id number] 200mg Take 1 [facility] 200 mg 0-27 capsule by ity of capsule 00:00: mouth [place] 00 every 8 Medical (eight) Branch hours. mexiletine 2021-03 Yes [id number] 200mg Take 1 [facility] 200 mg 0-27 capsule by ity of capsule 00:00: mouth [place] 00 every 8 Medical (eight) Branch hours. mexiletine 2021- Yes [id number] 200mg Take 1 [facility] 200 mg 0-27 capsule by ity of capsule 00:00: mouth [place] 00 every 8 Medical (eight) Branch hours. mexiletine 2021- Yes [id number] 200mg Take 1 [facility] 200 mg 0-27 capsule by ity of capsule 00:00: mouth [place] 00 every 8 Medical (eight) Branch hours. mexiletine 2021- Yes [id number] 200mg Take 1 [facility] 200 mg 0-27 capsule by ity of capsule 00:00: mouth [place] 00 every 8 Medical (eight) Branch hours. mexiletine 2021- Yes [id number] 200mg Take 1 [facility] 200 mg 0-27 capsule by ity of capsule 00:00: mouth [place] 00 every 8 Medical (eight) Branch hours. mexiletine 2022-1 Yes [id number] 200mg Take 1 [facility] 200 mg 0-27 capsule by ity of capsule 00:00: mouth [place] 00 every 8 Medical (eight) Branch hours. mexiletine 2021-1 Yes [id number] 200mg Take 1 [facility] 200 mg 0-27 capsule by ity of capsule 00:00: mouth [place] 00 every 8 Medical (eight) Branch hours. mexiletine 2021-1 Yes [id number] 200mg Take 1 [facility] 200 mg 0-27 capsule by ity of capsule 00:00: mouth [place] 00 every 8 Medical (eight) Branch hours. mexiletine 2021-1 Yes [id number] 200mg Take 1 [facility] 200 mg 0-27 capsule by ity of capsule 00:00: mouth [place] 00 every 8 Medical (eight) Branch hours. mexiletine 2021-1 Yes [id number] 200mg Take 1 [facility] 200 mg 0-27 capsule by ity of capsule 00:00: mouth [place] 00 every 8 Medical (eight) Branch hours. mexiletine 2021-1 Yes [id number] 200mg Take 1 [facility] 200 mg 0-27 capsule by ity of capsule 00:00: mouth [place] 00 every 8 Medical (eight) Branch hours. mexiletine 2021-1 Yes [id number] 200mg Take 1 [facility] 200 mg 0-27 capsule by ity of capsule 00:00: mouth [place] 00 every 8 Medical (eight) Branch hours. mexiletine 2021-1 Yes [id number] 200mg Take 1 [facility] 200 mg 0-27 capsule by ity of capsule 00:00: mouth [place] 00 every 8 Medical (eight) Branch hours. mexiletine 2021-1 Yes [id number] 200mg Take 1 [facility] 200 mg 0-27 capsule by ity of capsule 00:00: mouth [place] 00 every 8 Medical (eight) Branch hours. mexiletine 2-1 Yes [id number] 200mg Take 1 [facility] 200 mg 0-27 capsule by ity of capsule 00:00: mouth [place] 00 every 8 Medical (eight) Branch hours. mexiletine 2-1 Yes [id number] 200mg Take 1 [facility] 200 mg 0-27 capsule by ity of capsule 00:00: mouth [place] 00 every 8 Medical (eight) Branch hours. mexiletine 2-1 Yes [id number] 200mg Take 1 [facility] 200 mg 0-27 capsule by ity of capsule 00:00: mouth [place] 00 every 8 Medical (eight) Branch hours. mexiletine 2021-03 Yes [id number] 200mg Take 1 [facility] 200 mg 0-27 capsule by ity of capsule 00:00: mouth [place] 00 every 8 Medical (eight) Branch hours. mexiletine 2021-03 Yes [id number] 200mg Take 1 [facility] 200 mg 0-27 capsule by ity of capsule 00:00: mouth [place] 00 every 8 Medical (eight) Branch hours. mexiletine 2021-03 Yes [id number] 200mg Take 1 [facility] 200 mg 0-27 capsule by ity of capsule 00:00: mouth [place] 00 every 8 Medical (eight) Branch hours. mexiletine 2021-03 Yes [id number] 200mg Take 1 [facility] 200 mg 0-27 capsule by ity of capsule 00:00: mouth [place] 00 every 8 Medical (eight) Branch hours. mexiletine 2021-03 Yes [id number] 200mg Take 1 [facility] 200 mg 0-27 capsule by ity of capsule 00:00: mouth [place] 00 every 8 Medical (eight) Branch hours. mexiletine 2021-03- No [id number] 200mg Take 1 [facility] 200 mg 0-27 04-17 capsule by [facility]y of capsule 00:00: 00:00 mouth [place] 00 :00 every 8 Medical (eight) Branch hours. warfarin 2021-03 Yes [id number] 10mg Take 2 [facility] mg tablet 0-26 tablets by ity of 00:00: mouth [place] 00 every Medical evening. Branch Current dosage 10mg x 5 days/week, 7.5mg x 2 days /week warfarin 2021-03 Yes [id number] 10mg Take 2 [facility] mg tablet 0-26 tablets by ity of 00:00: mouth [place] 00 every Medical evening. Branch Current dosage 10mg x 5 days/week, 7.5mg x 2 days /week warfarin 5 2021-03 Yes [id number] 10mg Take 2 [facility] mg tablet 0-26 tablets by ity of 00:00: mouth [place] 00 every Medical evening. Branch Current dosage 10mg x 5 days/week, 7.5mg x 2 days /week warfarin 5 2021-03 Yes [id number] 10mg Take 2 [facility] mg tablet 0-26 tablets by ity of 00:00: mouth [place] 00 every Medical evening. Branch Current dosage 10mg x 5 days/week, 7.5mg x 2 days /week warfarin 2021-03 Yes [id number] 10mg Take 2 [facility] mg tablet 0-26 tablets by ity of 00:00: mouth [place] 00 every Medical evening. [place] Current dosage 10mg x 5 days/week, 7.5mg x 2 days /week warfarin 2021-03 Yes [id number] 10mg Take 2 [facility] mg tablet 0-26 tablets by ity of 00:00: mouth [place] 00 every Medical evening. Branch Current dosage 10mg x 5 days/week, 7.5mg x 2 days /week warfarin 2021-03 Yes [id number] 10mg Take 2 [facility] mg tablet 0-26 tablets by ity of 00:00: mouth [place] 00 every Medical evening. [facility] Current dosage 10mg x 5 days/week, 7.5mg x 2 days /week warfarin 2021-03 Yes [id number] 10mg Take 2 [facility] mg tablet 0-26 tablets by ity of 00:00: mouth [place] 00 every Medical evening. [place] Current dosage 10mg x 5 days/week, 7.5mg x 2 days /week warfarin 2021-03- No [id number] 10mg Take 2 [facility] mg tablet 0-26 11-11 tablets by ity of 00:00: 00:00 mouth [place] 00 :00 every Medical evening. [facility] Current dosage 10mg x 5 days/week, 7.5mg x 2 days /week warfarin 2021-03 Yes [id number] 7.5mg Take 1 [facility] 7.5 mg 0-14 tablet by ity of tablet 00:00: mouth [place] 00 every Medical evening. [place] Current dosage 10mg 5xweek and 7.5mg 2xweek warfarin 2021-03- No [id number] 7.5mg Take 1 [facility] 7.5 mg 0-14 10-26 tablet by ity of tablet 00:00: 00:00 mouth [place] 00 :00 every Medical evening. [place] Current dosage 10mg 5xweek and 7.5mg 2xweek bumetanide Yes 2mg Take 2 mg [facility] 2 mg tablet 9-29 by mouth ity of 14:18: daily. 3 [place] 32 mg AM and Medical 2 mg PM. [place] KCL 10 mEq Yes 10meq Take 10 [...] by ity of tablet 14:18: mouth in [place] 32 the Medical morning. Branch bumetanide Yes [...] by ity of tablet 14:18: mouth in [place] [address] the Medical morning. Branch bumetanide Yes 2mg [...] by ity of tablet 14:18: mouth in [place] [address] the Medical morning. Branch bumetanide Yes 2mg [...] by ity of tablet 14:18: mouth in [place] 32 the Medical morning. Branch bumetanide 0 Yes 2mg Take 2 mg [facility] 2 mg tablet 9-29 by mouth ity of 14:18: daily. 3 [place] 32 mg AM and Medical 2 mg PM. Branch KCL 10 mEq 0 Yes 10meq Take 10 [facility] vers tablet 9-29 mEq by ity of 14:18: mouth [place] 32 daily. Medical Branch spironolact 2021-0 Yes 12.5mg Take 12.5 [facility] one 25 mg 9-29 mg by ity of tablet 14:18: mouth in [place] [address] the Medical morning. Branch bumetanide 2021-0 Yes 2mg Take 2 mg [facility] 2 mg tablet 9-29 by mouth ity of 14:18: daily. 3 [place] 32 mg AM and Medical 2 mg PM. Branch KCL 10 mEq 2021-0 Yes 10meq Take 10 [facility] vers tablet 9-29 mEq by ity of 14:18: mouth [place] 32 daily. Medical Branch spironolact 2021-0 Yes 12.5mg Take 12.5 [facility] one 25 mg 9-29 mg by ity of tablet 14:18: mouth in [place] [address] the Medical morning. Branch bumetanide 2021-0 Yes 2mg Take 2 mg [facility] 2 mg tablet 9-29 by mouth ity of 14:18: daily. 3 [place] 32 mg AM and Medical 2 mg PM. Branch KCL 10 mEq 0 Yes 10meq Take 10 [facility] vers tablet 9-29 mEq by ity of 14:18: mouth [place] 32 daily. Medical Branch spironolact 2021-0 Yes 12.5mg Take 12.5 [facility] one 25 mg 9-29 mg by ity of tablet 14:18: mouth in [place] [address] the Medical morning. Branch bumetanide 2021-0 Yes 2mg Take 2 mg [facility] 2 mg tablet 9-29 by mouth ity of 14:18: daily. 3 [place] 32 mg AM and Medical 2 mg PM. Branch spironolact 2021-0 Yes 12.5mg Take 12.5 [facility] one 25 mg 9-29 mg by ity of tablet 14:18: mouth in [place] [address] the Medical morning. Branch bumetanide 2021-0 Yes 2mg Take 2 mg [facility] 2 mg tablet 9-29 by mouth ity of 14:18: daily. 3 [place] 32 mg AM and Medical 2 mg PM. Branch spironolact 2021-0 Yes 12.5mg Take 12.5 [facility] one 25 mg 9-29 mg by ity of tablet 14:18: mouth in [place] [address] the Medical morning. Branch bumetanide 2-0 Yes 2mg Take 2 mg [facility] 2 mg tablet 9-29 by mouth ity of 14:18: daily. 3 [place] 32 mg AM and Medical 2 mg PM. Branch spironolact 2022-0 Yes 12.5mg Take 12.5 [facility] one 25 mg 9-29 mg by ity of tablet 14:18: mouth in [place] [address] the Medical morning. Branch bumetanide 2022-0 Yes 2mg Take 2 mg [facility] 2 mg tablet 9-29 by mouth ity of 14:18: daily. 3 [place] 32 mg AM and Medical 2 mg PM. Branch spironolact 2022-0 Yes 12.5mg Take 12.5 [facility] one 25 mg 9-29 mg by ity of tablet 14:18: mouth in [place] [address] the Medical morning. Branch bumetanide 2022-0 Yes 2mg Take 2 mg [facility] 2 mg tablet 9-29 by mouth ity of 14:18: daily. 3 [place] 32 mg AM and Medical 2 mg PM. Branch spironolact 2022-0 Yes 12.5mg Take 12.5 [facility] one 25 mg 9-29 mg by ity of tablet 14:18: mouth in [place] [address] the Medical morning. Branch bumetanide 2022-0 Yes 2mg Take 2 mg [facility] 2 mg tablet 9-29 by mouth ity of 14:18: daily. 3 [place] 32 mg AM and Medical 2 mg PM. Branch spironolact 2-0 Yes 12.5mg Take 12.5 [facility] one 25 mg 9-29 mg by ity of tablet 14:18: mouth in [place] [address] the Medical morning. Branch bumetanide 2022-0 Yes 2mg Take 2 mg [facility] 2 mg tablet 9-29 by mouth ity of 14:18: daily. 3 [place] 32 mg AM and Medical 2 mg PM. Branch spironolact 2022-0 Yes 12.5mg Take 12.5 [facility] one 25 mg 9-29 mg by ity of tablet 14:18: mouth in [place] [address] the Medical morning. Branch bumetanide 2022-0 Yes 2mg Take 2 mg [facility] 2 mg tablet 9-29 by mouth ity of 14:18: daily. 3 [place] 32 mg AM and Medical 2 mg PM. Branch spironolact 2022-0 Yes 12.5mg Take 12.5 [facility] one 25 mg 9-29 mg by ity of tablet 14:18: mouth in [place] [address] the Medical morning. Branch bumetanide 2022-0 Yes 2mg Take 2 mg [facility] 2 mg tablet 9-29 by mouth ity of 14:18: daily. 3 [place] 32 mg AM and Medical 2 mg PM. Branch spironolact 2022-0 Yes 12.5mg Take 12.5 [facility] one 25 mg 9-29 mg by ity of tablet 14:18: mouth in [place] [address] the Medical morning. Branch bumetanide 2022-0 Yes 2mg Take 2 mg [facility] 2 mg tablet 9-29 by mouth ity of 14:18: daily. 3 [place] 32 mg AM and Medical 2 mg PM. Branch spironolact 2022-0 Yes 12.5mg Take 12.5 [facility] one 25 mg 9-29 mg by ity of tablet 14:18: mouth in [place] [address] the Medical morning. Branch bumetanide 2022-0 Yes 2mg Take 2 mg [facility] 2 mg tablet 9-29 by mouth ity of 14:18: daily. 3 [place] 32 mg AM and Medical 2 mg PM. Branch spironolact 2022-0 Yes 12.5mg Take 12.5 [facility] one 25 mg 9-29 mg by ity of tablet 14:18: mouth in [place] [address] the Medical morning. Branch bumetanide 2022-0 Yes 2mg Take 2 mg [facility] 2 mg tablet 9-29 by mouth ity of 14:18: daily. 3 [place] 32 mg AM and Medical 2 mg PM. Branch spironolact 2022-0 Yes 12.5mg Take 12.5 [facility] one 25 mg 9-29 mg by ity of tablet 14:18: mouth in [place] [address] the Medical morning. Branch bumetanide 2022-0 Yes 2mg Take 2 mg [facility] 2 mg tablet 9-29 by mouth ity of 14:18: daily. 3 [place] 32 mg AM and Medical 2 mg PM. Branch spironolact 2022-0 Yes 12.5mg Take 12.5 [facility] one 25 mg 9-29 mg by ity of tablet 14:18: mouth in [place] [address] the Medical morning. Branch bumetanide 2022-0 Yes 2mg Take 2 mg [facility] 2 mg tablet 9-29 by mouth ity of 14:18: daily. 3 [place] 32 mg AM and Medical 2 mg PM. Branch spironolact 2022-0 Yes 12.5mg Take 12.5 [facility] one 25 mg 9-29 mg by ity of tablet 14:18: mouth in [place] [address] the Medical morning. Branch bumetanide 2022-0 Yes 2mg Take 2 mg [facility] 2 mg tablet 9-29 by mouth ity of 14:18: daily. 3 [place] 32 mg AM and Medical 2 mg PM. Branch spironolact 2022-0 Yes 12.5mg Take 12.5 [facility] one 25 mg 9-29 mg by ity of tablet 14:18: mouth in [place] [address] the Medical morning. Branch bumetanide 2022-0 Yes 2mg Take 2 mg [facility] [place] 2 mg tablet 9-29 by mouth ity of 14:18: daily. 3 [place] 32 mg AM and Medical 2 mg PM. Branch spironolact 2022-0 Yes 12.5mg Take 12.5 [facility] one 25 mg 9-29 mg by ity of tablet 14:18: mouth in [place] [address] the Medical morning. Branch bumetanide 2022-0 Yes 2mg Take 2 mg [facility] 2 mg tablet 9-29 by mouth ity of 14:18: daily. 3 [place] 32 mg AM and Medical 2 mg PM. Branch spironolact 2-0 Yes 12.5mg Take 12.5 [facility] one 25 mg 9-29 mg by ity of tablet 14:18: mouth in [place] [address] the Medical morning. Branch bumetanide 2022-0 Yes 2mg Take 2 mg [facility] 2 mg tablet 9-29 by mouth ity of 14:18: daily. 3 [place] 32 mg AM and Medical 2 mg PM. Branch spironolact 2022-0 Yes 12.5mg Take 12.5 [facility] one 25 mg 9-29 mg by ity of tablet 14:18: mouth in [place] [address] the Medical morning. Branch bumetanide 2022-0 Yes 2mg Take 2 mg [facility] 2 mg tablet 9-29 by mouth ity of 14:18: daily. 3 [place] 32 mg AM and Medical 2 mg PM. Branch spironolact 2022-0 Yes 12.5mg Take 12.5 [facility] one 25 mg 9-29 mg by ity of tablet 14:18: mouth in [place] [address] the Medical morning. Branch bumetanide 2022-0 Yes 2mg Take 2 mg [facility] [place] 2 mg tablet 9-29 by mouth ity of 14:18: daily. 3 [place] 32 mg AM and Medical 2 mg PM. Branch spironolact 2022-0 Yes 12.5mg Take 12.5 [facility] one 25 mg 9-29 mg by ity of tablet 14:18: mouth in [place] [address] the Medical morning. Branch bumetanide 2022-0 Yes 2mg Take 2 mg [facility] [place] 2 mg tablet 9-29 by mouth ity of 14:18: daily. 3 [place] 32 mg AM and Medical 2 mg PM. Branch spironolact 2022-0 Yes 12.5mg Take 12.5 [facility] one 25 mg 9-29 mg by ity of tablet 14:18: mouth in [place] [address] the Medical morning. Branch bumetanide 2022-0 Yes 2mg Take 2 mg [facility] [place] 2 mg tablet 9-29 by mouth ity of 14:18: daily. 3 [place] 32 mg AM and Medical 2 mg PM. Branch spironolact 2022-0 Yes 12.5mg Take 12.5 [facility] one 25 mg 9-29 mg by ity of tablet 14:18: mouth in [place] [address] the Medical morning. Branch bumetanide 2022-0 Yes 2mg Take 2 mg [facility] [place] 2 mg tablet 9-29 by mouth ity of 14:18: daily. 3 [place] 32 mg AM and Medical 2 mg PM. Branch spironolact 2-0 Yes 12.5mg Take 12.5 [facility] one 25 mg 9-29 mg by ity of tablet 14:18: mouth in [place] [address] the Medical morning. Branch bumetanide 2022-0 Yes 2mg Take 2 mg [facility] [place] 2 mg tablet 9-29 by mouth ity of 14:18: daily. 3 [place] 32 mg AM and Medical 2 mg PM. Branch spironolact 2022-0 Yes 12.5mg Take 12.5 [facility] one 25 mg 9-29 mg by ity of tablet 14:18: mouth in [place] [address] the Medical morning. Branch bumetanide 2022-0 Yes 2mg Take 2 mg [facility] [place] 2 mg tablet 9-29 by mouth ity of 14:18: daily. 3 [place] 32 mg AM and Medical 2 mg PM. Branch spironolact 2022-0 Yes 12.5mg Take 12.5 [facility] one 25 mg 9-29 mg by ity of tablet 14:18: mouth in [place] [address] the Medical morning. Branch bumetanide 2022-0 Yes 2mg Take 2 mg [facility] [place] 2 mg tablet 9-29 by mouth ity of 14:18: daily. 3 [place] 32 mg AM and Medical 2 mg PM. Branch spironolact 2022-0 Yes 12.5mg Take 12.5 [facility] one 25 mg 9-29 mg by ity of tablet 14:18: mouth in [place] [address] the Medical morning. Branch bumetanide 2022-0 Yes 2mg Take 2 mg [facility] [place] 2 mg tablet 9-29 by mouth ity of 14:18: daily. 3 [place] 32 mg AM and Medical 2 mg PM. Branch spironolact 2022-0 Yes 12.5mg Take 12.5 [facility] one 25 mg 9-29 mg by ity of tablet 14:18: mouth in [place] [address] the Medical morning. Branch bumetanide 2022-0 Yes 2mg Take 2 mg [facility] [place] 2 mg tablet 9-29 by mouth ity of 14:18: daily. 3 [place] 32 mg AM and Medical 2 mg PM. Branch spironolact 2022-0 Yes 12.5mg Take 12.5 [facility] one 25 mg 9-29 mg by ity of tablet 14:18: mouth in [place] [address] the Medical morning. Branch bumetanide 2022-0 Yes 2mg Take 2 mg [facility] [place] 2 mg tablet 9-29 by mouth ity of 14:18: daily. 3 [place] 32 mg AM and Medical 2 mg PM. Branch spironolact 2022-0 Yes 12.5mg Take 12.5 [facility] one 25 mg 9-29 mg by ity of tablet 14:18: mouth in [place] [address] the Medical morning. Branch bumetanide 2022-0 Yes 2mg Take 2 mg [facility] [place] 2 mg tablet 9-29 by mouth ity of 14:18: daily. 3 [place] 32 mg AM and Medical 2 mg PM. Branch spironolact 2022-0 Yes 12.5mg Take 12.5 [facility] one 25 mg 9-29 mg by ity of tablet 14:18: mouth in [place] [address] the Medical morning. Branch bumetanide 2022-0 Yes 2mg Take 2 mg [facility] [place] 2 mg tablet 9-29 by mouth ity of 14:18: daily. 3 [place] 32 mg AM and Medical 2 mg PM. Branch spironolact 2-0 Yes 12.5mg Take 12.5 [facility] one 25 mg 9-29 mg by ity of tablet 14:18: mouth in [place] 32 the Medical morning. Branch bumetanide 2-0 Yes 2mg Take 2 mg [facility] 2 mg tablet 9-29 by mouth ity of 14:18: daily. 3 [place] 32 mg AM and Medical 2 mg PM. Branch spironolact 2-0 Yes 12.5mg Take 12.5 [facility] one 25 mg 9-29 mg by ity of tablet 14:18: mouth in [place] 32 the Medical morning. Branch spironolact 2-0 Yes 12.5mg Take 12.5 [facility] one 9-25 mg by ity of (ALDACTONE) 18:56: mouth in [place] 25 mg 38 the Medical tablet morning. Branch spironolact 2-0 Yes 12.5mg Take 12.5 [facility] one 9-25 [...] 25 daily. Medical Branch KCL 10 mEq 2-0 Yes 10meq Take 10 [facility] vers tablet 9-22 mEq by ity of 10:07: mouth [place] 25 daily. Medical Branch KCL 10 mEq 2021-0 Yes 10meq Take 10 [facility] vers tablet 9-22 mEq by ity of 10:07: mouth [place] 25 daily. Medical Branch bumetanide 2-0 Yes 2mg Take 2 [...] 2 mg [facility] [place] 2 mg tablet -22 by mouth ity of 10:06: daily. 3 [...] mouth [place] 48 daily. Medical Branch bumetanide 2021-0 Yes 2mg Take 2 mg [facility] [place] 2 mg tablet 9-15 by mouth ity of 20:29: daily. 3 [place] 48 mg AM and Medical 2 mg PM. Branch KCL 10 mEq 2021-0 Yes 10meq Take 10 [facility] vers tablet 9-15 mEq by ity of 20:29: mouth [place] 48 daily. Medical Branch spironolact 2021-0 2021- No 25mg Take 25 mg [facility] one 25 mg 9-15 09-15 by mouth ity o f tablet 20:29: 00:00 daily. [place] 48 :00 [facility] Branch SERTraline 2021-0 Yes [id number] 100mg Take 1 [facility] 100 mg 9-14 tablet by ity of tablet 00:00: mouth in [place] 00 the [facility] and 1 tablet in the evening. SERTraline 2021-0 Yes [id number] 100mg Take 1 [facility] 100 mg 9-14 tablet by ity of tablet 00:00: mouth in [place] 00 the [facility] and 1 tablet in the evening. SERTraline 2021-0 Yes [id number] 100mg Take 1 [facility] 100 mg 9-14 tablet by ity of tablet 00:00: mouth in [place] 00 the [facility] and 1 tablet in the evening. SERTraline 2021-0 Yes [id number] 100mg Take 1 [facility] 100 mg 9-14 tablet by ity of tablet 00:00: mouth in [address] and 1 tablet in the evening. SERTraline 2021-0 Yes [id number] 100mg Take 1 [facility] 100 mg 9-14 tablet by ity of tablet 00:00: mouth in [address] and 1 tablet in the evening. SERTraline 2021-0 Yes [id number] 100mg Take 1 [facility] 100 mg 9-14 tablet by ity of tablet 00:00: mouth in [place] 00 the [facility] and 1 tablet in the evening. SERTraline 2021-0 Yes [id number] 100mg Take 1 [facility] 100 mg 9-14 tablet by ity of tablet 00:00: mouth in [address] and 1 tablet in the evening. SERTraline 2021-0 Yes [id number] 100mg Take 1 [facility] 100 mg 9-14 tablet by ity of tablet 00:00: mouth in [place] [address] the [facility] and 1 tablet in the evening. SERTraline 2021-0 Yes [id number] 100mg Take 1 [facility] 100 mg 9-14 tablet by ity of tablet 00:00: mouth in [place] [address] the Medical morning Branch and 1 tablet in the evening. SERTraline 2022-0 Yes [id number] 100mg Take 1 [facility] 100 mg 9-14 tablet by ity of tablet 00:00: mouth in [place] [address] the Medical morning Branch and 1 tablet in the evening. SERTraline 2022-0 Yes [id number] 100mg Take 1 [facility] 100 mg 9-14 tablet by ity of tablet 00:00: mouth in [place] [address] the Medical morning Branch and 1 tablet in the evening. SERTraline 2022-0 Yes [id number] 100mg Take 1 [facility] 100 mg 9-14 tablet by ity of tablet 00:00: mouth in [place] [address] the Medical morning Branch and 1 tablet in the evening. SERTraline 2022-0 Yes [id number] 100mg Take 1 [facility] 100 mg 9-14 tablet by ity of tablet 00:00: mouth in [place] [address] the Medical morning [place] and 1 tablet in the evening. SERTraline 2022-0 Yes [id number] 100mg Take 1 [facility] 100 mg 9-14 tablet by ity of tablet 00:00: mouth in [address] Medical morning [place] and 1 tablet in the evening. SERTraline 2022-0 Yes [id number] 100mg Take 1 [facility] 100 mg 9-14 tablet by ity of tablet 00:00: mouth in [address] Medical morning [place] and 1 tablet in the evening. SERTraline 2022-0 Yes [id number] 100mg Take 1 [facility] 100 mg 9-14 tablet by ity of tablet 00:00: mouth in [address] Medical morning [place] and 1 tablet in the evening. SERTraline 2022-0 Yes [id number] 100mg Take 1 [facility] 100 mg 9-14 tablet by ity of tablet 00:00: mouth in [address] Medical morning [place] and 1 tablet in the evening. SERTraline 2022-0 Yes [id number] 100mg Take 1 [facility] 100 mg 9-14 tablet by ity of tablet 00:00: mouth in [address] morning [place] and 1 tablet in the evening. SERTraline 2022-0 Yes [id number] 100mg Take 1 [facility] 100 mg 9-14 tablet by ity of tablet 00:00: mouth in [address] Medical morning [place] and 1 tablet in the evening. SERTraline 2022-0 Yes [id number] 100mg Take 1 [facility] 100 mg 9-14 tablet by ity of tablet 00:00: mouth in [place] [address] the Medical morning Branch and 1 tablet in the evening. SERTraline 2022-0 Yes [id number] 100mg Take 1 [facility] 100 mg 9-14 tablet by ity of tablet 00:00: mouth in [place] [address] the Medical morning Branch and 1 tablet in the evening. SERTraline 2022-0 Yes [id number] 100mg Take 1 [facility] 100 mg 9-14 tablet by ity of tablet 00:00: mouth in [place] [address] the Medical morning Branch and 1 tablet in the evening. SERTraline 2022-0 Yes [id number] 100mg Take 1 [facility] 100 mg 9-14 tablet by ity of tablet 00:00: mouth in [place] [address] the Medical morning Branch and 1 tablet in the evening. SERTraline 2022-0 Yes [id number] 100mg Take 1 [facility] 100 mg 9-14 tablet by ity of tablet 00:00: mouth in [place] [address] the Medical morning Branch and 1 tablet in the evening. SERTraline 2022-0 Yes [id number] 100mg Take 1 [facility] 100 mg 9-14 tablet by ity of tablet 00:00: mouth in [place] [address] the Medical morning [place] and 1 tablet in the evening. SERTraline 2022-0 Yes [id number] 100mg Take 1 [facility] 100 mg 9-14 tablet by ity of tablet 00:00: mouth in [place] [address] the Medical morning [place] and 1 tablet in the evening. SERTraline 2022-0 Yes [id number] 100mg Take 1 [facility] 100 mg 9-14 tablet by ity of tablet 00:00: mouth in [place] [address] the Medical morning Branch and 1 tablet in the evening. SERTraline 2022-0 Yes [id number] 100mg Take 1 [facility] 100 mg 9-14 tablet by ity of tablet 00:00: mouth in [place] [address] the Medical morning [place] and 1 tablet in the evening. SERTraline 2022-0 Yes [id number] 100mg Take 1 [facility] 100 mg 9-14 tablet by ity of tablet 00:00: mouth in [place] [address] the Medical morning [place] and 1 tablet in the evening. SERTraline 2022-0 Yes [id number] 100mg Take 1 [facility] 100 mg 9-14 tablet by ity of tablet 00:00: mouth in [address] Medical morning Branch and 1 tablet in the evening. SERTraline 2022-0 Yes [id number] 100mg Take 1 [facility] 100 mg 9-14 tablet by ity of tablet 00:00: mouth in [place] [address] the Medical morning Branch and 1 tablet in the evening. SERTraline 2022-0 Yes [id number] 100mg Take 1 [facility] 100 mg 9-14 tablet by ity of tablet 00:00: mouth in [place] [address] the Medical morning Branch and 1 tablet in the evening. SERTraline 2022-0 Yes [id number] 100mg Take 1 [facility] 100 mg 9-14 tablet by ity of tablet 00:00: mouth in [place] [address] the Medical morning Branch and 1 tablet in the evening. SERTraline 2022-0 Yes [id number] 100mg Take 1 [facility] 100 mg 9-14 tablet by ity of tablet 00:00: mouth in [place] [address] the Medical morning Branch and 1 tablet in the evening. SERTraline 2022-0 Yes [id number] 100mg Take 1 [facility] 100 mg 9-14 tablet by ity of tablet 00:00: mouth in [place] [address] the Medical morning Branch and 1 tablet in the evening. SERTraline 2022-0 Yes [id number] 100mg Take 1 [facility] 100 mg 9-14 tablet by ity of tablet 00:00: mouth in [place] [address] the Medical morning [place] and 1 tablet in the evening. SERTraline 2022-0 Yes [id number] 100mg Take 1 [facility] 100 mg 9-14 tablet by ity of tablet 00:00: mouth in [place] [address] the Medical morning [place] and 1 tablet in the evening. SERTraline 2022-0 Yes [id number] 100mg Take 1 [facility] 100 mg 9-14 tablet by ity of tablet 00:00: mouth in [place] [address] the Medical morning Branch and 1 tablet in the evening. SERTraline 2022-0 Yes [id number] 100mg Take 1 [facility] 100 mg 9-14 tablet by ity of tablet 00:00: mouth in [place] [address] the Medical morning Branch and 1 tablet in the evening. SERTraline 2022-0 Yes [id number] 100mg Take 1 [facility] 100 mg 9-14 tablet by ity of tablet 00:00: mouth in [place] [address] the [facility] morning [place] and 1 tablet in the evening. SERTraline 2022-0 Yes [id number] 100mg Take 1 [facility] 100 mg 9-14 tablet by ity of tablet 00:00: mouth in [place] [address] the Medical morning Branch and 1 tablet in the evening. SERTraline 2022-0 Yes [id number] 100mg Take 1 [facility] 100 mg 9-14 tablet by ity of tablet 00:00: mouth in [place] [address] the Medical morning Branch and 1 tablet in the evening. SERTraline 2022-0 Yes [id number] 100mg Take 1 [facility] 100 mg 9-14 tablet by ity of tablet 00:00: mouth in [place] [address] the Medical morning Branch and 1 tablet in the evening. SERTraline 2022-0 Yes [id number] 100mg Take 1 [facility] 100 mg 9-14 tablet by ity of tablet 00:00: mouth in [place] [address] the Medical morning Branch and 1 tablet in the evening. SERTraline 2022-0 Yes [id number] 100mg Take 1 [facility] 100 mg 9-14 tablet by ity of tablet 00:00: mouth in [place] [address] the Medical morning Branch and 1 tablet in the evening. SERTraline 2-0 Yes [id number] 100mg Take 1 [facility] 100 mg 9-14 tablet by ity of tablet 00:00: mouth in [place] [address] the Medical morning Branch and 1 tablet in the evening. SERTraline 2022-0 Yes [id number] 100mg Take 1 [facility] 100 mg 9-14 tablet by ity of tablet 00:00: mouth in [place] [address] the Medical morning [place] and 1 tablet in the evening. SERTraline 2022-0 Yes [id number] 100mg Take 1 [facility] 100 mg 9-14 tablet by ity of tablet 00:00: mouth in [place] [address] the Medical morning [place] and 1 tablet in the evening. SERTraline 2022-0 Yes [id number] 100mg Take 1 [facility] 100 mg 9-14 tablet by ity of tablet 00:00: mouth in [place] [address] the Medical morning Branch and 1 tablet in the evening. SERTraline 2022-0 Yes [id number] 100mg Take 1 [facility] 100 mg 9-14 tablet by ity of tablet 00:00: mouth in [place] [address] the Medical morning [place] and 1 tablet in the evening. SERTraline 2022-0 Yes [id number] 100mg Take 1 [facility] 100 mg 9-14 tablet by ity of tablet 00:00: mouth in [address] Medical morning [place] and 1 tablet in the evening. SERTraline 2022-0 Yes [id number] 100mg Take 1 [facility] 100 mg 9-14 tablet by ity of tablet 00:00: mouth in [place] [address] the Medical morning Branch and 1 tablet in the evening. SERTraline 2022-0 Yes [id number] 100mg Take 1 [facility] 100 mg 9-14 tablet by ity of tablet 00:00: mouth in [place] [address] the Medical morning Branch and 1 tablet in the evening. SERTraline 2022-0 Yes [id number] 100mg Take 1 [facility] 100 mg 9-14 tablet by ity of tablet 00:00: mouth in [place] [address] the Medical morning Branch and 1 tablet in the evening. SERTraline 2022-0 Yes [id number] 100mg Take 1 [facility] 100 mg 9-14 tablet by ity of tablet 00:00: mouth in [place] [address] the Medical morning Branch and 1 tablet in the evening. SERTraline 2022-0 Yes [id number] 100mg Take 1 [facility] 100 mg 9-14 tablet by ity of tablet 00:00: mouth in [place] [address] the Medical morning Branch and 1 tablet in the evening. SERTraline 2022-0 Yes [id number] 100mg Take 1 [facility] 100 mg 9-14 tablet by ity of tablet 00:00: mouth in [place] [address] the Medical morning Branch and 1 tablet in the evening. SERTraline 2022-0 Yes [id number] 100mg Take 1 [facility] 100 mg 9-14 tablet by ity of tablet 00:00: mouth in [place] [address] the Medical morning Branch and 1 tablet in the evening. SERTraline 2022-0 Yes [id number] 100mg Take 1 [facility] 100 mg 9-14 tablet by ity of tablet 00:00: mouth in [place] [address] the Medical morning Branch and 1 tablet in the evening. SERTraline 2022-0 Yes [id number] 100mg Take 1 [facility] 100 mg 9-14 tablet by ity of tablet 00:00: mouth in [place] [address] the Medical morning Branch and 1 tablet in the evening. SERTraline 2022-0 Yes [id number] 100mg Take 1 [facility] 100 mg 9-14 tablet by ity of tablet 00:00: mouth in [place] [address] the Medical morning [place] and 1 tablet in the evening. SERTraline 2022-0 Yes [id number] 100mg Take 1 [facility] 100 mg 9-14 tablet by ity of tablet 00:00: mouth in [place] 00 the Medical morning Branch and 1 tablet in the evening. SERTraline 2022-0 Yes [id number] 100mg Take 1 [facility] 100 mg 9-14 tablet by [facility] of tablet 00:00: mouth in [place] [address] the Medical morning Branch and 1 tablet in the evening. SERTraline 2022-0 Yes [id number] 100mg Take 1 [facility] 100 mg 9-14 tablet by [facility] of tablet 00:00: mouth in [place] [address] the Medical morning [place] and 1 tablet in the evening. SERTraline 2022-0 Yes [id number] 100mg Take 1 [facility] 100 mg 9-14 tablet by [facility] of tablet 00:00: mouth in [place] [address] the Medical morning Branch and 1 tablet in the evening. SERTraline 2022-0 Yes [id number] 100mg Take 1 [facility] 100 mg 9-14 tablet by [facility] of tablet 00:00: mouth in [address] morning [place] and 1 tablet in the evening. SERTraline 2022-0 Yes [id number] 100mg Take 1 [facility] 100 mg 9-14 tablet by ity of tablet 00:00: mouth in [address] morning [place] and 1 tablet in the evening. SERTraline 2022-0 Yes [id number] 100mg Take 1 [facility] 100 mg 9-14 tablet by [facility]y of tablet 00:00: mouth in [address] morning [place] and 1 tablet in the evening. SERTraline 2022-0 Yes [id number] 100mg Take 1 [facility] 100 mg 9-14 tablet by ity of tablet 00:00: mouth in [address] morning [place] and 1 tablet in the evening. SERTraline 2022-0 Yes [id number] 100mg Take 1 [facility] 100 mg 9-14 tablet by [facility] of tablet 00:00: mouth in [address] morning [place] and 1 tablet in the evening. SERTraline 2022-0 Yes [id number] 100mg Take 1 [facility] 100 mg 9-14 tablet by ity of tablet 00:00: mouth in [address] morning [place] and 1 tablet in the evening. SERTraline 2022-0 Yes [id number] 100mg Take 1 [facility] 100 mg 9-14 tablet by ity of tablet 00:00: mouth in [address] morning [place] and 1 tablet in the evening. SERTraline 2022-0 Yes [id number] 100mg Take 1 [facility] 100 mg 9-14 tablet by [facility] of tablet 00:00: mouth in [place] 00 the Medical morning Branch and 1 tablet in the evening. SERTraline 2022-0 Yes [id number] 100mg Take 1 [facility] 100 mg 9-14 tablet by [facility] of tablet 00:00: mouth in [place] 00 the Medical morning Branch and 1 tablet in the evening. SERTraline 2022-0 Yes [id number] 100mg Take 1 [facility] 100 mg 9-14 tablet by [facility] of tablet 00:00: mouth in [place] 00 the Medical morning Branch and 1 tablet in the evening. SERTraline 2-0 Yes [id number] 100mg Take 1 [facility] 100 mg 9-14 tablet by [facility] of tablet 00:00: mouth in [place] 00 the Medical morning Branch and 1 tablet in the evening. SERTraline 2-0 Yes [id number] 100mg Take 1 [facility] 100 mg 9-14 tablet by [facility] of tablet 00:00: mouth in [place] 00 the Medical morning Branch and 1 tablet in the evening. SERTraline 2-0 Yes [id number] 100mg Take 1 [facility] 100 mg 9-14 tablet by [facility] of tablet 00:00: mouth in [place] 00 the Medical morning Branch and 1 tablet in the evening. SERTraline 2021-0 2023- No [id number] 100mg Take 1 [facility] 100 mg 9-14 09-20 tablet by [facility] of tablet 00:00: 00:00 mouth in [place] 00 :00 the Medical morning Branch and 1 tablet in the evening. primidone 2022-0 Yes [id number] 100mg Take 2 [facility] 50 mg 8-15 tablets by [facility] of tablet 00:00: mouth [place] 00 every 8 Medical (eight) Branch hours. primidone 2022-0 Yes [id number] 100mg Take 2 [facility] 50 mg 8-15 tablets by [facility] of tablet 00:00: mouth [place] 00 every 8 Medical (eight) Branch hours. primidone 2022-0 Yes [id number] 100mg Take 2 [facility] 50 mg 8-15 tablets by [facility] of tablet 00:00: mouth [place] 00 every 8 Medical (eight) Branch hours. primidone 2022-0 Yes [id number] 100mg Take 2 [facility] 50 mg 8-15 tablets by [facility] of tablet 00:00: mouth [place] 00 every 8 Medical (eight) Branch hours. primidone 2022-0 Yes [id number] 100mg Take 2 [facility] 50 mg 8-15 tablets by [facility] of tablet 00:00: mouth [place] 00 every 8 Medical (eight) Branch hours. primidone 2022-0 Yes [id number] 100mg Take 2 [facility] 50 mg 8-15 tablets by [facility] of tablet 00:00: mouth [place] 00 every 8 Medical (eight) Branch hours. primidone 2022-0 Yes [id number] 100mg Take 2 [facility] 50 mg 8-15 tablets by [facility] of tablet 00:00: mouth [place] 00 every 8 Medical (eight) Branch hours. primidone 2022-0 Yes [id number] 100mg Take 2 [facility] 50 mg 8-15 tablets by [facility] of tablet 00:00: mouth [place] 00 every 8 Medical (eight) Branch hours. primidone 2022-0 Yes [id number] 100mg Take 2 [facility] 50 mg 8-15 tablets by [facility] of tablet 00:00: mouth [place] 00 every 8 Medical (eight) Branch hours. primidone 2022-0 Yes [id number] 100mg Take 2 [facility] 50 mg 8-15 tablets by [facility] of tablet 00:00: mouth [place] 00 every 8 Medical (eight) Branch hours. primidone 2022-0 Yes [id number] 100mg Take 2 [facility] 50 mg 8-15 tablets by [facility] of tablet 00:00: mouth [place] 00 every 8 Medical (eight) Branch hours. primidone 2022-0 Yes [id number] 100mg Take 2 [facility] 50 mg 8-15 tablets by [facility] of tablet 00:00: mouth [place] 00 every 8 Medical (eight) Branch hours. primidone 2022-0 Yes [id number] 100mg Take 2 [facility] 50 mg 8-15 tablets by [facility] of tablet 00:00: mouth [place] 00 every 8 Medical (eight) Branch hours. primidone 2022-0 Yes [id number] 100mg Take 2 [facility] 50 mg 8-15 tablets by [facility] of tablet 00:00: mouth [place] 00 every 8 Medical (eight) Branch hours. primidone 2022-0 Yes [id number] 100mg Take 2 [facility] 50 mg 8-15 tablets by [facility] of tablet 00:00: mouth [place] 00 every 8 Medical (eight) Branch hours. primidone 2022-0 Yes [id number] 100mg Take 2 [facility] 50 mg 8-15 tablets by [facility] of tablet 00:00: mouth [place] 00 every 8 Medical (eight) Branch hours. primidone 2022-0 Yes [id number] 100mg Take 2 [facility] 50 mg 8-15 tablets by [facility] of tablet 00:00: mouth [place] 00 every 8 Medical (eight) Branch hours. primidone 2022-0 Yes [id number] 100mg Take 2 [facility] 50 mg 8-15 tablets by [facility] of tablet 00:00: mouth [place] 00 every 8 Medical (eight) Branch hours. primidone 2022-0 Yes [id number] 100mg Take 2 [facility] 50 mg 8-15 tablets by [facility] of tablet 00:00: mouth [place] 00 every 8 Medical (eight) Branch hours. primidone 2022-0 Yes [id number] 100mg Take 2 [facility] 50 mg 8-15 tablets by [facility] of tablet 00:00: mouth [place] 00 every 8 Medical (eight) Branch hours. primidone 2022-0 Yes [id number] 100mg Take 2 [facility] 50 mg 8-15 tablets by [facility] of tablet 00:00: mouth [place] 00 every 8 Medical (eight) Branch hours. primidone 2022-0 Yes [id number] 100mg Take 2 [facility] 50 mg 8-15 tablets by [facility] of tablet 00:00: mouth [place] 00 every 8 Medical (eight) Branch hours. primidone 2022-0 Yes [id number] 100mg Take 2 [facility] 50 mg 8-15 tablets by [facility] of tablet 00:00: mouth [place] 00 every 8 Medical (eight) Branch hours. primidone 2022-0 Yes [id number] 100mg Take 2 [facility] 50 mg 8-15 tablets by [facility] of tablet 00:00: mouth [place] 00 every 8 Medical (eight) Branch hours. primidone 2022-0 Yes [id number] 100mg Take 2 [facility] 50 mg 8-15 tablets by [facility] of tablet 00:00: mouth [place] 00 every 8 Medical (eight) Branch hours. primidone 2022-0 Yes [id number] 100mg Take 2 [facility] 50 mg 8-15 tablets by [facility] of tablet 00:00: mouth [place] 00 every 8 Medical (eight) Branch hours. primidone 2022-0 Yes [id number] 100mg Take 2 [facility] 50 mg 8-15 tablets by [facility] of tablet 00:00: mouth [place] 00 every 8 Medical (eight) Branch hours. primidone 2022-0 Yes [id number] 100mg Take 2 [facility] 50 mg 8-15 tablets by it[facility] of tablet 00:00: mouth [place] 00 every 8 Medical (eight) Branch hours. primidone 2022-0 Yes [id number] 100mg Take 2 [facility] 50 mg 8-15 tablets by it[facility] of tablet 00:00: mouth [place] 00 every 8 Medical (eight) Branch hours. primidone 2022-0 Yes [id number] 100mg Take 2 [facility] 50 mg 8-15 tablets by it[facility] of tablet 00:00: mouth [place] 00 every 8 Medical (eight) Branch hours. primidone 2022-0 Yes [id number] 100mg Take 2 [facility] 50 mg 8-15 tablets by it[facility] of tablet 00:00: mouth [place] 00 every 8 Medical (eight) Branch hours. primidone 2022-0 Yes [id number] 100mg Take 2 [facility] 50 mg 8-15 tablets by it[facility] of tablet 00:00: mouth [place] 00 every 8 Medical (eight) Branch hours. primidone 2022-0 Yes [id number] 100mg Take 2 [facility] 50 mg 8-15 tablets by it[facility] of tablet 00:00: mouth [place] 00 every 8 Medical (eight) Branch hours. primidone 2022-0 Yes [id number] 100mg Take 2 [facility] 50 mg 8-15 tablets by it[facility] of tablet 00:00: mouth [place] 00 every 8 Medical (eight) Branch hours. primidone 2022-0 Yes [id number] 100mg Take 2 [facility] 50 mg 8-15 tablets by it[facility] of tablet 00:00: mouth [place] 00 every 8 Medical (eight) Branch hours. primidone 2022-0 Yes [id number] 100mg Take 2 [facility] 50 mg 8-15 tablets by [facility] of tablet 00:00: mouth [place] 00 every 8 Medical (eight) Branch hours. primidone 2022-0 Yes [id number] 100mg Take 2 [facility] 50 mg 8-15 tablets by [facility] of tablet 00:00: mouth [place] 00 every 8 Medical (eight) Branch hours. primidone 2022-0 Yes [id number] 100mg Take 2 [facility] 50 mg 8-15 tablets by [facility] of tablet 00:00: mouth [place] 00 every 8 Medical (eight) Branch hours. primidone 2022-0 Yes [id number] 100mg Take 2 [facility] 50 mg 8-15 tablets by it[facility] of tablet 00:00: mouth [place] 00 every 8 Medical (eight) Branch hours. primidone 2022-0 Yes [id number] 100mg Take 2 [facility] 50 mg 8-15 tablets by [facility] of tablet 00:00: mouth [place] 00 every 8 Medical (eight) Branch hours. primidone 2021-0 Yes [id number] 100mg Take 2 [facility] 50 mg 8-15 tablets by it[facility] of tablet 00:00: mouth [place] 00 every 8 Medical (eight) Branch hours. primidone 2021-0 Yes [id number] 100mg Take 2 [facility] 50 mg 8-15 tablets by it[facility] of tablet 00:00: mouth [place] 00 every 8 Medical (eight) Branch hours. primidone 2021-0 Yes [id number] 100mg Take 2 [facility] 50 mg 8-15 tablets by it[facility] of tablet 00:00: mouth [place] 00 every 8 Medical (eight) Branch hours. primidone 2021-0 Yes [id number] 100mg Take 2 [facility] 50 mg 8-15 tablets by it[facility] of tablet 00:00: mouth [place] 00 every 8 Medical (eight) Branch hours. primidone 2021-0 Yes [id number] 100mg Take 2 [facility] 50 mg 8-15 tablets by it[facility] of tablet 00:00: mouth [place] 00 every 8 Medical (eight) Branch hours. primidone 2021-0 2022- No [id number] 100mg Take 2 [facility] 50 mg 8-15 12-14 tablets by ity of tablet 00:00: 00:00 mouth [place] 00 :00 every 8 Medical (eight) Branch hours. primidone 2021-0 2022- No [id number] 100mg Take 2 [facility] 50 mg 8-15 12-14 tablets by ity of tablet 00:00: 00:00 mouth [place] 00 :00 every 8 Medical (eight) Branch hours. primidone 2021-0 2022- No [id number] 100mg Take 2 [facility] 50 mg 8-15 [...] by mouth ity of tablet 10:37: daily. [address] Branch bumetanide 2-0 Yes 2mg Take 2 mg [facility] jerem[facility] 2 mg tablet 8-11 by mouth ity of 10:37: daily. 3 [place] 47 mg AM and Medical 2 mg PM. Branch KCL 10 mEq 2-0 Yes 10meq Take 10 [facility] vers tablet 8-11 mEq by ity of 10:37: mouth [place] [address] daily. Medical Branch spironolact 2022-0 Yes 25mg Take 25 mg [facility] one 25 mg 8-11 by mouth ity of tablet 10:37: daily. [address] Branch mexiletine 2022-0 Yes 200mg Take 1 [facility] ers 200 mg 7-19 capsule by ity of capsule 00:00: mouth in [place] [address] the [facility] and 1 capsule at noon and 1 capsule in the evening. mexiletine 2022-0 Yes 200mg Take 1 [facility] ers 200 mg 7-19 capsule by ity of capsule 00:00: mouth in [place] [address] the [facility] and 1 capsule at noon and 1 capsule in the evening. mexiletine 2022-0 Yes 200mg Take 1 [facility] ers 200 mg 7-19 capsule by ity of capsule 00:00: mouth in [place] [address] the [facility] and 1 capsule at noon and 1 capsule in the evening. mexiletine 2022-0 Yes 200mg Take 1 [facility] ers 200 mg 7-19 capsule by ity of capsule 00:00: mouth in [place] [address] the [facility] and 1 capsule at noon and 1 capsule in the evening. mexiletine 2022-0 Yes 200mg Take 1 [facility] ers 200 mg 7-19 capsule by ity of capsule 00:00: mouth in [place] [address] the [facility] and 1 capsule at noon and 1 capsule in the evening. mexiletine 2022-0 Yes 200mg Take 1 [facility] ers 200 mg 7-19 capsule by ity of capsule 00:00: mouth in [place] [address] the [facility] and 1 capsule at noon and 1 capsule in the evening. mexiletine 2022-0 Yes 200mg Take 1 [facility] ers 200 mg 7-19 capsule by ity of capsule 00:00: mouth in [address] and 1 capsule at noon and 1 capsule in the evening. mexiletine 2022-0 Yes 200mg Take 1 [facility] ers 200 mg 7-19 capsule by ity of capsule 00:00: mouth in [place] [address] the Medical morning Branch and 1 capsule at noon and 1 capsule in the evening. mexiletine 2022-0 Yes 200mg Take 1 [facility] ers 200 mg 7-19 capsule by ity of capsule 00:00: mouth in [place] [address] the Medical morning Branch and 1 capsule at noon and 1 capsule in the evening. mexiletine 2022-0 Yes 200mg Take 1 [facility] ers 200 mg 7-19 capsule by ity of capsule 00:00: mouth in [place] [address] the Medical morning Branch and 1 capsule at noon and 1 capsule in the evening. mexiletine 2022-0 Yes 200mg Take 1 [facility] ers 200 mg 7-19 capsule by ity of capsule 00:00: mouth in [place] [address] the [facility] morning [place] and 1 capsule at noon and 1 capsule in the evening. mexiletine 2022-0 Yes 200mg Take 1 [facility] ers 200 mg 7-19 capsule by ity of capsule 00:00: mouth in [address] morning [place] and 1 capsule at noon and 1 capsule in the evening. mexiletine 2022-0 Yes 200mg Take 1 [facility] ers 200 mg 7-19 capsule by ity of capsule 00:00: mouth in [place] [address] the Medical morning [place] and 1 capsule at noon and 1 capsule in the evening. mexiletine 2022-0 Yes 200mg Take 1 [facility] ers 200 mg 7-19 capsule by ity of capsule 00:00: mouth in [address] morning [place] and 1 capsule at noon and 1 capsule in the evening. mexiletine 2022-0 Yes 200mg Take 1 [facility] ers 200 mg 7-19 capsule by ity of capsule 00:00: mouth in [address] Medical morning [place] and 1 capsule at noon and 1 capsule in the evening. mexiletine 2022-0 2022- No 200mg Take 1 [facility] vers 200 mg 7-19 10-27 capsule by ity of capsule 00:00: 00:00 mouth in [place] 00 :00 [facility] morning Branch and 1 capsule at noon and 1 capsule in the evening. carvediloL 2022-0 Yes [id number] 6.25mg Take 1 [facility] 6.25 mg 6-20 tablet by ity of tablet 00:00: mouth 2 [place] [address] (two) Medical times Branch daily with meals. warfarin 2021-0 Yes [id number] 7.5mg Take 1 U nivers 7.5 mg 6-20 tablet by ity of tablet 00:00: mouth [place] 00 every Medical evening. Branch carvediloL 2021-0 Yes [id number] 6.25mg Take 1 [facility] 6.25 mg 6-20 tablet by ity of tablet 00:00: mouth (two) Medical times Branch daily with meals. warfarin 2021-0 Yes [id number] 7.5mg Take 1 U nivers 7.5 mg 6-20 tablet by ity of tablet 00:00: mouth [place] 00 every Medical evening. Branch carvediloL 2021-0 Yes [id number] 6.25mg Take 1 [facility] 6.25 mg 6-20 tablet by ity of tablet 00:00: mouth (two) Medical times Branch daily with meals. warfarin 2021-0 Yes [id number] 7.5mg Take 1 U nivers 7.5 mg 6-20 tablet by ity of tablet 00:00: mouth 00 every Medical evening. Branch carvediloL 2021-0 Yes [id number] 6.25mg Take 1 [facility] 6.25 mg 6-20 tablet by ity of tablet 00:00: mouth (two) Medical times Branch daily with meals. warfarin 2021-0 Yes [id number] 7.5mg Take 1 U nivers 7.5 mg 6-20 tablet by ity of tablet 00:00: mouth [place] 00 every Medical evening. Branch carvediloL 2021-0 Yes [id number] 6.25mg Take 1 [facility] 6.25 mg 6-20 tablet by ity of tablet 00:00: mouth (two) Medical times Branch daily with meals. warfarin 2021-0 Yes [id number] 7.5mg Take 1 U nivers 7.5 mg 6-20 tablet by ity of tablet 00:00: mouth [place] 00 every Medical evening. Branch carvediloL 2021-0 Yes [id number] 6.25mg Take 1 [facility] 6.25 mg 6-20 tablet by ity of tablet 00:00: mouth (two) Medical times Branch daily with meals. warfarin 2021-0 Yes [id number] 7.5mg Take 1 U nivers 7.5 mg 6-20 tablet by ity of tablet 00:00: mouth [place] 00 every Medical evening. Branch carvediloL 2021-0 Yes [id number] 6.25mg Take 1 [facility] 6.25 mg 6-20 tablet by ity of tablet 00:00: mouth (two) Medical times Branch daily with meals. warfarin 2021-0 Yes [id number] 7.5mg Take 1 U nivers 7.5 mg 6-20 tablet by ity of tablet 00:00: mouth [place] 00 every Medical evening. Branch carvediloL 2021-0 Yes [id number] 6.25mg Take 1 [facility] 6.25 mg 6-20 tablet by ity of tablet 00:00: mouth (two) Medical times Branch daily with meals. warfarin 2021-0 Yes [id number] 7.5mg Take 1 U nivers 7.5 mg 6-20 tablet by ity of tablet 00:00: mouth [place] 00 every Medical evening. Branch carvediloL 2021-0 Yes [id number] 6.25mg Take 1 [facility] 6.25 mg 6-20 tablet by ity of tablet 00:00: mouth (two) Medical times Branch daily with meals. warfarin 2021-0 Yes [id number] 7.5mg Take 1 U nivers 7.5 mg 6-20 tablet by ity of tablet 00:00: mouth [place] 00 every Medical evening. Branch carvediloL 2021-0 Yes [id number] 6.25mg Take 1 [facility] 6.25 mg 6-20 tablet by ity of tablet 00:00: mouth (two) Medical times Branch daily with meals. warfarin 2021-0 Yes [id number] 7.5mg Take 1 U nivers 7.5 mg 6-20 tablet by ity of tablet 00:00: mouth [place] 00 every Medical evening. Branch carvediloL 2021-0 Yes [id number] 6.25mg Take 1 [facility] 6.25 mg 6-20 tablet by ity of tablet 00:00: mouth (two) Medical times Branch daily with meals. carvediloL 2021-0 Yes [id number] 6.25mg Take 1 [facility] 6.25 mg 6-20 tablet by ity of tablet 00:00: mouth (two) Medical times Branch daily with meals. carvediloL 2022-0 Yes [id number] 6.25mg Take 1 [facility] 6.25 mg 6-20 tablet by ity of tablet 00:00: mouth (two) Medical times Branch daily with meals. carvediloL 2022-0 Yes [id number] 6.25mg Take 1 [facility] 6.25 mg 6-20 tablet by ity of tablet 00:00: mouth (two) Medical times Branch daily with meals. carvediloL 2022-0 Yes [id number] 6.25mg Take 1 [facility] 6.25 mg 6-20 tablet by ity of tablet 00:00: mouth (two) Medical times Branch daily with meals. carvediloL 2022-0 Yes [id number] 6.25mg Take 1 [facility] 6.25 mg 6-20 tablet by ity of tablet 00:00: mouth (two) Medical times Branch daily with meals. carvediloL 2022-0 Yes [id number] 6.25mg Take 1 [facility] 6.25 mg 6-20 tablet by ity of tablet 00:00: mouth (two) Medical times Branch daily with meals. carvediloL 2022-0 Yes [id number] 6.25mg Take 1 [facility] 6.25 mg 6-20 tablet by ity of tablet 00:00: mouth (two) Medical times Branch daily with meals. carvediloL 2022-0 Yes [id number] 6.25mg Take 1 [facility] 6.25 mg 6-20 tablet by ity of tablet 00:00: mouth (two) Medical times Branch daily with meals. carvediloL 2022-0 Yes [id number] 6.25mg Take 1 [facility] 6.25 mg 6-20 tablet by ity of tablet 00:00: mouth (two) Medical times Branch daily with meals. carvediloL 2022-0 Yes [id number] 6.25mg Take 1 [facility] 6.25 mg 6-20 tablet by ity of tablet 00:00: mouth (two) Medical times Branch daily with meals. carvediloL 2022-0 Yes [id number] 6.25mg Take 1 [facility] 6.25 mg 6-20 tablet by ity of tablet 00:00: mouth (two) Medical times Branch daily with meals. carvediloL 0 Yes [id number] 6.25mg Take 1 [facility] 6.25 mg 6-20 tablet by ity of tablet 00:00: mouth [place] (two) Medical times Branch daily with meals. carvediloL 0 Yes [id number] 6.25mg Take 1 [facility] 6.25 mg 6-20 tablet by ity of tablet 00:00: mouth [place] (two) Medical times Branch daily with meals. carvediloL 0 Yes [id number] 6.25mg Take 1 [facility] 6.25 mg 6-20 tablet by ity of tablet 00:00: mouth [place] (two) Medical times Branch daily with meals. carvediloL Yes [id number] 6.25mg Take 1 [facility] 6.25 mg 6-20 tablet by ity of tablet 00:00: mouth [place] (two) Medical times Branch daily with meals. carvediloL Yes [id number] 6.25mg Take 1 [facility] 6.25 mg 6-20 tablet by ity of tablet 00:00: mouth [place] (two) Medical times Branch daily with meals. carvediloL 2021- No [id number] 6.25mg Take 1 [facility] 6.25 mg 6-20 11-21 tablet by ity of tablet 00:00: 00:[address] [place] [address] 00 :00 (two) Medical times Branch daily with meals. carvediloL 2021- No [id number] 6.25mg Take 1 [facility] 6.25 mg 6-20 11-21 tablet by ity of tablet 00:00: 00:[address] [place] [address] 00 :00 (two) Medical times Branch daily with meals. warfarin 2021- No [id number] 7.5mg Take 1 [facility] 7.5 mg 6-20 10-14 tablet by ity of tablet 00:00: 00:00 mouth [place] 00 :00 every Medical evening. Branch warfarin 2021- No [id number] 7.5mg Take 1 [facility] 7.5 mg 6-20 10-14 tablet by ity of tablet 00:00: 00:00 mouth [place] 00 :00 every Medical evening. Branch atorvastati 0 Yes [id number] 40mg Take 1 [facility] n 40 mg 5-05 tablet by ity of tablet 00:00: mouth at [place] [address] bedtime. Medical Branch atorvastati Yes [id number] 40mg Take 1 [facility] n 40 mg 5-05 tablet by ity of tablet 00:00: mouth at [place] bedtime. Medical Branch atorvastati 0 Yes [id number] 40mg Take 1 [facility] n 40 mg 5-05 tablet by ity of tablet 00:00: mouth at [place] bedtime. Medical Branch atorvastati Yes [id number] 40mg Take 1 [facility] n 40 mg 5-05 tablet by ity of tablet 00:00: mouth at [place] bedtime. Medical Branch atorvastati Yes [id number] 40mg Take 1 [facility] n 40 mg 5-05 tablet by ity of tablet 00:00: mouth at [place] bedtime. Medical Branch atorvastati Yes [id number] 40mg Take 1 [facility] n 40 mg 5-05 tablet by ity of tablet 00:00: mouth at [place] bedtime. Medical Branch atorvastati Yes [id number] 40mg Take 1 [facility] n 40 mg 5-05 tablet by ity of tablet 00:00: mouth at [place] bedtime. Medical Branch atorvastati Yes [id number] 40mg Take 1 [facility] n 40 mg 5-05 tablet by ity of tablet 00:00: mouth at [place] bedtime. Medical Branch atorvastati Yes [id number] 40mg Take 1 [facility] n 40 mg 5-05 tablet by ity of tablet 00:00: mouth at [place] bedtime. Medical Branch atorvastati 0 Yes [id number] 40mg Take 1 [facility] n 40 mg 5-05 tablet by ity of tablet 00:00: mouth at [place] bedtime. Medical Branch atorvastati 0 Yes [id number] 40mg Take 1 [facility] n 40 mg 5-05 tablet by ity of tablet 00:00: mouth at [place] [address] bedtime. Medical Branch atorvastati Yes [id number] 40mg Take 1 [facility] n 40 mg 5-05 tablet by ity of tablet 00:00: mouth at [place] [address] bedtime. Medical Branch atorvastati 0 Yes [id number] 40mg Take 1 [facility] n 40 mg 5-05 tablet by ity of tablet 00:00: mouth at [place] [address] bedtime. Medical Branch atorvastati 0 Yes [id number] 40mg Take 1 [facility] n 40 mg 5-05 tablet by ity of tablet 00:00: mouth at [place] [address] bedtime. Medical Branch atorvastati 0 Yes [id number] 40mg Take 1 [facility] n 40 mg 5-05 tablet by ity of tablet 00:00: mouth at [place] [address] bedtime. Medical Branch atorvastati 0 Yes [id number] 40mg Take 1 [facility] n 40 mg 5-05 tablet by ity of tablet 00:00: mouth at [place] [address] bedtime. Medical Branch atorvastati Yes [id number] 40mg Take 1 [facility] n 40 mg 5-05 tablet by ity of tablet 00:00: mouth at [place] [address] bedtime. Medical Branch atorvasta 0 Yes [id number] 40mg Take 1 [facility] n 40 mg 5-05 tablet by ity of tablet 00:00: mouth at [place] [address] bedtime. Medical Branch atorvasta Yes [id number] 40mg Take 1 [facility] n 40 mg 5-05 tablet by ity of tablet 00:00: mouth at [place] [address] bedtime. Medical Branch atorvastati Yes [id number] 40mg Take 1 [facility] n 40 mg 5-05 tablet by ity of tablet 00:00: mouth at [place] [address] bedtime. Medical Branch atorvastati 0 Yes [id number] 40mg Take 1 [facility] n 40 mg 5-05 tablet by ity of tablet 00:00: mouth at [place] [address] bedtime. Medical Branch atorvastati 0 Yes [id number] 40mg Take 1 [facility] n 40 mg 5-05 tablet by ity of tablet 00:00: mouth at [place] [address] bedtime. Medical Branch atorvastati 0 Yes [id number] 40mg Take 1 [facility] n 40 mg 5-05 tablet by ity of tablet 00:00: mouth at [place] [address] bedtime. Medical Branch atorvastati 0 Yes [id number] 40mg Take 1 [facility] n 40 mg 5-05 tablet by ity of tablet 00:00: mouth at [place] [address] bedtime. Medical Branch atorvastati 0 Yes [id number] 40mg Take 1 [facility] n 40 mg 5-05 tablet by ity of tablet 00:00: mouth at [place] [address] bedtime. Medical Branch atorvastati 0 Yes [id number] 40mg Take 1 [facility] n 40 mg 5-05 tablet by ity of tablet 00:00: mouth at [place] [address] bedtime. Medical Branch atorvastati 0 Yes [id number] 40mg Take 1 [facility] n 40 mg 5-05 tablet by ity of tablet 00:00: mouth at [place] [address] bedtime. Medical Branch atorvastati 0 Yes [id number] 40mg Take 1 [facility] n 40 mg 5-05 tablet by ity of tablet 00:00: mouth at [place] [address] bedtime. Medical Branch atorvastati Yes [id number] 40mg Take 1 [facility] 40 mg 5-05 tablet by [facility] tablet 00:00: mouth at [place] [address] bedtime. [facility] atorvastati Yes [id number] 40mg Take 1 [facility] n 40 mg 5-05 tablet by [facility] tablet 00:00: mouth at [place] [address] bedtime. [facility] atorvastati Yes [id number] 40mg Take 1 [facility] n 40 mg 5-05 tablet by [facility] of tablet 00:00: mouth at [place] [address] bedtime. [facility] atorvastati Yes [id number] 40mg Take 1 [facility] n 40 mg 5-05 tablet by [facility] of tablet 00:00: mouth at [place] [address] bedtime. [facility] atorvastati 0 Yes [id number] 40mg Take 1 [facility] n 40 mg 5-05 tablet by [facility] of tablet 00:00: mouth at [place] [address] bedtime. [facility] atorvastati 0 Yes [id number] 40mg Take 1 [facility] n 40 mg 5-05 tablet by [facility] of tablet 00:00: mouth at [place] [address] bedtime. [facility] atorvastati 0 Yes [id number] 40mg Take 1 [facility] n 40 mg 5-05 tablet by [facility] of tablet 00:00: mouth at [place] [address] bedtime. [facility] atorvastati 0 Yes [id number] 40mg Take 1 [facility] n 40 mg 5-05 tablet by [facility] of tablet 00:00: mouth at [place] [address] bedtime. [facility] atorvastati 0 Yes [id number] 40mg Take 1 [facility] n 40 mg 5-05 tablet by [facility] of tablet 00:00: mouth at [place] bedtime. [facility] atorvastati 0 Yes [id number] 40mg Take 1 [facility] n 40 mg 5-05 tablet by [facility] of tablet 00:00: mouth at [place] bedtime. [facility] atorvastati 0 Yes [id number] 40mg Take 1 [facility] n 40 mg 5-05 tablet by [facility] of tablet 00:00: mouth at [place] bedtime. [facility] atorvastati Yes [id number] 40mg Take 1 [facility] n 40 mg 5-05 tablet by [facility] of tablet 00:00: mouth at [place] bedtime. [facility] atorvastati 0 Yes [id number] 40mg Take 1 [facility] n 40 mg 5-05 tablet by [facility] of tablet 00:00: mouth at [place] bedtime. [facility] atorvastati Yes [id number] 40mg Take 1 [facility] n 40 mg 5-05 tablet by [facility] of tablet 00:00: mouth at [place] bedtime. [facility] atorvastati Yes [id number] 40mg Take 1 [facility] n 40 mg 5-05 tablet by [facility] of tablet 00:00: mouth at [place] bedtime. [facility] atorvastati 0 Yes [id number] 40mg Take 1 [facility] n 40 mg 5-05 tablet by [facility] of tablet 00:00: mouth at [place] bedtime. [facility] atorvastati 0 Yes [id number] 40mg Take 1 [facility] n 40 mg 5-05 tablet by [facility] of tablet 00:00: mouth at [place] bedtime. [facility] atorvastati 0 Yes [id number] 40mg Take 1 [facility] n 40 mg 5-05 tablet by [facility] of tablet 00:00: mouth at [place] bedtime. [facility] atorvastati 0 Yes [id number] 40mg Take 1 [facility] 40 mg 5-05 tablet by [facility] of tablet 00:00: mouth at [place] 00 bedtime. [facility] atorvastati Yes [id number] 40mg Take 1 [facility] 40 mg 5-05 tablet by [facility] of tablet 00:00: mouth at [place] [address] bedtime. [facility] atorvastati 0 Yes [id number] 40mg Take 1 [facility] n 40 mg 5-05 tablet by [facility] of tablet 00:00: mouth at [place] bedtime. [facility] atorvastati 0 Yes [id number] 40mg Take 1 [facility] n 40 mg 5-05 tablet by [facility] of tablet 00:00: mouth at [place] bedtime. [facility] atorvastati 0 Yes [id number] 40mg Take 1 [facility] 40 mg 5-05 tablet by [facility] of tablet 00:00: mouth at [place] bedtime. [facility] atorvastati Yes [id number] 40mg Take 1 [facility] n 40 mg 5-05 tablet by [facility] of tablet 00:00: mouth at [place] bedtime. [facility] atorvastati 0 Yes [id number] 40mg Take 1 [facility] n 40 mg 5-05 tablet by [facility] of tablet 00:00: mouth at [place] bedtime. [facility] atorvastati Yes [id number] 40mg Take 1 [facility] n 40 mg 5-05 tablet by [facility] of tablet 00:00: mouth at [place] bedtime. [facility] atorvastati Yes [id number] 40mg Take 1 [facility] 40 mg 5-05 tablet by [facility] of tablet 00:00: mouth at [place] [address] bedtime. [facility] atorvastati 0 Yes [id number] 40mg Take 1 [facility] 40 mg 5-05 tablet by [facility] of tablet 00:00: mouth at [place] [address] bedtime. [facility] atorvastati 0 Yes [id number] 40mg Take 1 [facility] 40 mg 5-05 tablet by [facility] of tablet 00:00: mouth at [place] [address] bedtime. [facility] atorvastati 0 Yes [id number] 40mg Take 1 [facility] 40 mg 5-05 tablet by [facility] of tablet 00:00: mouth at [place] [address] bedtime. [facility] atorvastati 0 Yes [id number] 40mg Take 1 [facility] n 40 mg 5-05 tablet by [facility] of tablet 00:00: mouth at [place] [address] bedtime. [facility] atorvastati 0 Yes [id number] 40mg Take 1 [facility] 40 mg 5-05 tablet by [facility] of tablet 00:00: mouth at [place] bedtime. [facility] atorvastati 0 Yes [id number] 40mg Take 1 [facility] n 40 mg 5-05 tablet by [facility] of tablet 00:00: mouth at [place] bedtime. [facility] atorvastati 0 Yes [id number] 40mg Take 1 [facility] n 40 mg 5-05 tablet by [facility] of tablet 00:00: mouth at [place] bedtime. [facility] atorvastati 0 Yes [id number] 40mg Take 1 [facility] n 40 mg 5-05 tablet by [facility] of tablet 00:00: mouth at [place] [address] bedtime. [facility] atorvastati Yes [id number] 40mg Take 1 [facility] n 40 mg 5-05 tablet by [facility] of tablet 00:00: mouth at [place] [address] bedtime. [facility] atorvastati 0 Yes [id number] 40mg Take 1 [facility] n 40 mg 5-05 tablet by [facility] of tablet 00:00: mouth at [place] [address] bedtime. [facility] atorvastati 0 Yes [id number] 40mg Take 1 [facility] n 40 mg 5-05 tablet by [facility] of tablet 00:00: mouth at [place] [address] bedtime. [facility] atorvastati 0 Yes [id number] 40mg Take 1 [facility] n 40 mg 5-05 tablet by [facility] of tablet 00:00: mouth at [place] [address] bedtime. [facility] atorvastati 0 Yes [id number] 40mg Take 1 [facility] n 40 mg 5-05 tablet by [facility] of tablet 00:00: mouth at [place] [address] bedtime. [facility] atorvastati 0 Yes [id number] 40mg Take 1 [facility] 40 mg 5-05 tablet by [facility] of tablet 00:00: mouth at [place] [address] bedtime. [facility] atorvastati 0 Yes [id number] 40mg Take 1 [facility] n 40 mg 5-05 tablet by [facility] of tablet 00:00: mouth at [place] [address] bedtime. [facility] atorvastati 2022-0 Yes [id number] 40mg Take 1 [facility] n 40 mg 5-05 tablet by [facility] of tablet 00:00: mouth at [place] 00 bedtime. [facility] atorvastati 0 2023- No [id number] 40mg Take 1 [facility] n 40 mg 5-05 04-12 tablet by [facility] of tablet 00:00: 00:00 mouth at [place] 00 :00 bedtime. [facility] allopurinoL 2021-0 Yes [id number] 300mg Take 1 [facility] 300 mg 2-08 tablet by [facility] of tablet 00:00: mouth [place] 00 daily. [facility] allopurinoL 2021-0 Yes [id number] 300mg Take 1 [facility] 300 mg 2-08 tablet by [facility] of tablet 00:00: mouth [place] 00 daily. [facility] allopurinoL 2021-0 Yes [id number] 300mg Take 1 [facility] 300 mg 2-08 tablet by [facility] of tablet 00:00: mouth [place] 00 daily. [facility] allopurinoL 2021-0 Yes [id number] 300mg Take 1 [facility] 300 mg 2-08 tablet by [facility] of tablet 00:00: mouth [place] 00 daily. [facility] allopurinoL 2021-0 Yes [id number] 300mg Take 1 [facility] 300 mg 2-08 tablet by [facility] of tablet 00:00: mouth [place] 00 daily. [facility] allopurinoL 2021-0 Yes [id number] 300mg Take 1 [facility] 300 mg 2-08 tablet by [facility] of tablet 00:00: mouth [place] 00 daily. [facility] allopurinoL 2021-0 Yes [id number] 300mg Take 1 [facility] 300 mg 2-08 tablet by [facility] of tablet 00:00: mouth [place] 00 daily. [facility] allopurinoL 2021-0 Yes [id number] 300mg Take 1 [facility] 300 mg 2-08 tablet by [facility] of tablet 00:00: mouth [place] 00 daily. [facility] allopurinoL 2021-0 Yes [id number] 300mg Take 1 [facility] 300 mg 2-08 tablet by [facility] of tablet 00:00: mouth [place] 00 daily. [facility] allopurinoL 2021-0 Yes [id number] 300mg Take 1 [facility] 300 mg 2-08 tablet by [facility] of tablet 00:00: mouth [place] 00 daily. [facility] allopurinoL 2021-0 Yes [id number] 300mg Take 1 [facility] 300 mg 2-08 tablet by [facility] of tablet 00:00: mouth [place] 00 daily. [facility] allopurinoL 2021-0 Yes [id number] 300mg Take 1 [facility] 300 mg 2-08 tablet by [facility] of tablet 00:00: mouth [place] 00 daily. [facility] allopurinoL 2021-0 Yes [id number] 300mg Take 1 [facility] 300 mg 2-08 tablet by [facility] of tablet 00:00: mouth [place] 00 daily. [facility] allopurinoL 2021-0 Yes [id number] 300mg Take 1 [facility] 300 mg 2-08 tablet by [facility] tablet 00:00: mouth [place] 00 daily. [facility] allopurinoL 2021-0 Yes [id number] 300mg Take 1 [facility] 300 mg 2-08 tablet by [facility] tablet 00:00: mouth [place] 00 daily. [facility] allopurinoL 2021-0 Yes [id number] 300mg Take 1 [facility] 300 mg 2-08 tablet by [facility] tablet 00:00: mouth [place] 00 daily. [facility] allopurinoL 2021-0 Yes [id number] 300mg Take 1 [facility] 300 mg 2-08 tablet by [facility] tablet 00:00: mouth [place] 00 daily. [facility] allopurinoL 2021-0 Yes [id number] 300mg Take 1 [facility] 300 mg 2-08 tablet by [facility] tablet 00:00: mouth [place] 00 daily. [facility] allopurinoL 2021-0 Yes [id number] 300mg Take 1 [facility] 300 mg 2-08 tablet by [facility] tablet 00:00: mouth [place] 00 daily. [facility] allopurinoL 2021-0 Yes [id number] 300mg Take 1 [facility] 300 mg 2-08 tablet by [facility] tablet 00:00: mouth [place] 00 daily. [facility] allopurinoL 2021-0 Yes [id number] 300mg Take 1 [facility] 300 mg 2-08 tablet by [facility] of tablet 00:00: mouth [place] 00 daily. [facility] allopurinoL 2021-0 Yes [id number] 300mg Take 1 [facility] 300 mg 2-08 tablet by [facility] of tablet 00:00: mouth [place] 00 daily. [facility] allopurinoL 2021-0 Yes [id number] 300mg Take 1 [facility] 300 mg 2-08 tablet by [facility] tablet 00:00: mouth [place] 00 daily. [facility] allopurinoL 2021-0 Yes [id number] 300mg Take 1 [facility] 300 mg 2-08 tablet by [facility] of tablet 00:00: mouth [place] 00 daily. [facility] allopurinoL 2021-0 Yes [id number] 300mg Take 1 [facility] 300 mg 2-08 tablet by [facility] of tablet 00:00: mouth [place] 00 daily. [facility] allopurinoL 2021-0 Yes [id number] 300mg Take 1 [facility] 300 mg 2-08 tablet by [facility] of tablet 00:00: mouth [place] 00 daily. [facility] allopurinoL 2021-0 Yes [id number] 300mg Take 1 [facility] 300 mg 2-08 tablet by [facility] of tablet 00:00: mouth [place] 00 daily. [facility] allopurinoL 2021-0 Yes [id number] 300mg Take 1 [facility] 300 mg 2-08 tablet by [facility] of tablet 00:00: mouth [place] 00 daily. [facility] allopurinoL 2021-0 Yes [id number] 300mg Take 1 [facility] 300 mg 2-08 tablet by [facility] of tablet 00:00: mouth [place] 00 daily. [facility] allopurinoL 2021-0 Yes [id number] 300mg Take 1 [facility] 300 mg 2-08 tablet by [facility] of tablet 00:00: mouth [place] 00 daily. [facility] allopurinoL 2021-0 Yes [id number] 300mg Take 1 [facility] 300 mg 2-08 tablet by [facility] of tablet 00:00: mouth [place] 00 daily. [facility] allopurinoL 2021-0 Yes [id number] 300mg Take 1 [facility] 300 mg 2-08 tablet by [facility] of tablet 00:00: mouth [place] 00 daily. [facility] allopurinoL 2021-0 Yes [id number] 300mg Take 1 [facility] 300 mg 2-08 tablet by [facility] of tablet 00:00: mouth [place] 00 daily. [facility] allopurinoL 2021-0 Yes [id number] 300mg Take 1 [facility] 300 mg 2-08 tablet by [facility] of tablet 00:00: mouth [place] 00 daily. [facility] allopurinoL 2021-0 Yes [id number] 300mg Take 1 [facility] 300 mg 2-08 tablet by [facility] of tablet 00:00: mouth [place] 00 daily. [facility] allopurinoL 2021-0 Yes [id number] 300mg Take 1 [facility] 300 mg 2-08 tablet by [facility] of tablet 00:00: mouth [place] 00 daily. [facility] allopurinoL 2021-0 Yes [id number] 300mg Take 1 [facility] 300 mg 2-08 tablet by [facility] of tablet 00:00: mouth [place] 00 daily. [facility] allopurinoL 2021-0 Yes [id number] 300mg Take 1 [facility] 300 mg 2-08 tablet by [facility] of tablet 00:00: mouth [place] 00 daily. [facility] allopurinoL 2021-0 Yes [id number] 300mg Take 1 [facility] 300 mg 2-08 tablet by [facility] of tablet 00:00: mouth [place] 00 daily. [facility] allopurinoL 2021-0 Yes [id number] 300mg Take 1 [facility] 300 mg 2-08 tablet by [facility] of tablet 00:00: mouth [place] 00 daily. [facility] allopurinoL 2021-0 Yes [id number] 300mg Take 1 [facility] 300 mg 2-08 tablet by [facility] of tablet 00:00: mouth [place] 00 daily. [facility] allopurinoL 2021-0 Yes [id number] 300mg Take 1 [facility] 300 mg 2-08 tablet by [facility] of tablet 00:00: mouth [place] 00 daily. [facility] allopurinoL 2021-0 Yes [id number] 300mg Take 1 [facility] 300 mg 2-08 tablet by [facility] of tablet 00:00: mouth [place] 00 daily. [facility] allopurinoL 2021-0 Yes [id number] 300mg Take 1 [facility] 300 mg 2-08 tablet by [facility] of tablet 00:00: mouth [place] 00 daily. [facility] allopurinoL 2021-0 Yes [id number] 300mg Take 1 [facility] 300 mg 2-08 tablet by [facility] of tablet 00:00: mouth [place] 00 daily. [facility] allopurinoL 2021-0 Yes [id number] 300mg Take 1 [facility] 300 mg 2-08 tablet by [facility] of tablet 00:00: mouth [place] 00 daily. [facility] allopurinoL 2021-0 Yes [id number] 300mg Take 1 [facility] 300 mg 2-08 tablet by [facility] of tablet 00:00: mouth [place] 00 daily. [facility] allopurinoL 2021-0 Yes [id number] 300mg Take 1 [facility] 300 mg 2-08 tablet by [facility] of tablet 00:00: mouth [place] 00 daily. [facility] allopurinoL 2021-0 Yes [id number] 300mg Take 1 [facility] 300 mg 2-08 tablet by [facility] of tablet 00:00: mouth [place] 00 daily. [facility] allopurinoL 2021-0 Yes [id number] 300mg Take 1 [facility] 300 mg 2-08 tablet by [facility] of tablet 00:00: mouth [place] 00 daily. [facility] allopurinoL 2021-0 Yes [id number] 300mg Take 1 [facility] 300 mg 2-08 tablet by [facility] of tablet 00:00: mouth [place] 00 daily. [facility] allopurinoL 2021-0 Yes [id number] 300mg Take 1 [facility] 300 mg 2-08 tablet by [facility] of tablet 00:00: mouth [place] 00 daily. [facility] allopurinoL 2021-0 Yes [id number] 300mg Take 1 [facility] 300 mg 2-08 tablet by [facility] of tablet 00:00: mouth [place] 00 daily. [facility] allopurinoL 2021-0 Yes [id number] 300mg Take 1 [facility] 300 mg 2-08 tablet by [facility] of tablet 00:00: mouth [place] 00 daily. [facility] allopurinoL 2021-0 Yes [id number] 300mg Take 1 [facility] 300 mg 2-08 tablet by [facility] of tablet 00:00: mouth [place] 00 daily. [facility] allopurinoL 2021-0 Yes [id number] 300mg Take 1 [facility] 300 mg 2-08 tablet by [facility] of tablet 00:00: mouth [place] 00 daily. [facility] allopurinoL 2021-0 Yes [id number] 300mg Take 1 [facility] 300 mg 2-08 tablet by [facility] of tablet 00:00: mouth [place] 00 daily. [facility] allopurinoL 2021-0 Yes [id number] 300mg Take 1 [facility] 300 mg 2-08 tablet by [facility] of tablet 00:00: mouth [place] 00 daily. [facility] allopurinoL 2021-0 Yes [id number] 300mg Take 1 [facility] 300 mg 2-08 tablet by [facility] of tablet 00:00: mouth [place] 00 daily. [facility] allopurinoL 2021-0 Yes [id number] 300mg Take 1 [facility] 300 mg 2-08 tablet by [facility] of tablet 00:00: mouth [place] 00 daily. [facility] allopurinoL 2021-0 Yes [id number] 300mg Take 1 [facility] 300 mg 2-08 tablet by [facility] of tablet 00:00: mouth [place] 00 daily. [facility] allopurinoL 2021-0 Yes [id number] 300mg Take 1 [facility] 300 mg 2-08 tablet by [facility] of tablet 00:00: mouth [place] 00 daily. [facility] allopurinoL 2021-0 Yes [id number] 300mg Take 1 [facility] 300 mg 2-08 tablet by [facility] of tablet 00:00: mouth [place] 00 daily. [facility] allopurinoL 2021-0 Yes [id number] 300mg Take 1 [facility] 300 mg 2-08 tablet by [facility] of tablet 00:00: mouth [place] 00 daily. [facility] allopurinoL 2022- No [id number] 300mg Take 1 [facility] 300 mg 04-19 tablet by it[facility] of tablet 00:00: 00:00 mouth [place] 00 :00 daily. [facility] Branch allopurinoL 2021-2022- No [id number] 300mg Take 1 [facility] 300 mg 04-19 tablet by ity of tablet 00:00: 00:00 mouth [place] 00 :00 daily. [facility] Branch allopurinoL 2022- No [id number] 300mg Take 1 [facility] 300 mg 04-19 tablet by ity of tablet 00:00: 00:00 mouth [place] 00 :00 daily. [facility] Branch atorvastati 2021-2021- No 40mg Take 40 mg [facility] n 40 mg 04-12 by mouth ity of tablet 15:31: 00:00 at [place] 17 :00 bedtime. [facility] Branch atorvastati 2021-2021- No 40mg Take 40 mg [facility] n 40 mg 04-12 by mouth ity of tablet 15:31: 00:00 at [place] 17 :00 bedtime. [facility] Branch atorvastati 2021- No 40mg Take 40 mg [facility] n 40 mg 04-12 by mouth ity of tablet 15:31: 00:00 at [place] 17 :00 bedtime. [facility] Branch atorvastati 2021- No 40mg Take 40 mg [facility] n 40 mg 04-12 by mouth ity of tablet 15:31: 00:00 at [place] 17 :00 bedtime. [facility] atorvastati 2021- No [id number] 40mg Take 1 [facility] n 40 mg 04-12 05-05 tablet by ity of tablet 00:00: 00:00 mouth at [place] 00 :00 bedtime Medical for 90 Branch days. atorvastati 2021-2021- No [id number] 40mg Take 1 [facility] n 40 mg 2 05-05 tablet by ity of tablet 00:00: 00:00 mouth at [place] 00 :00 bedtime Medical for 90 Branch days. MEXILETINE 2021-2021- No [id number] TAKE 1 [facility] 150 mg 03-12 CAPSULE BY ity of capsule 00:00: 00:00 MOUTH [place] 00 :00 EVERY 12 Medical HOURS Branch MEXILETINE 2021- No [id number] TAKE 1 [facility] 150 mg 03-12- CAPSULE BY ity of capsule 00:00: 00:00 MOUTH [place] 00 :00 EVERY 12 Medical HOURS Branch MEXILETINE 2021- No [id number] TAKE 1 [facility] 150 mg 03-12 CAPSULE BY ity of capsule 00:00: 00:00 MOUTH [place] 00 :00 EVERY 12 Medical HOURS Branch MEXILETINE 2021- No [id number] TAKE 1 [facility] 150 mg 03-12- CAPSULE BY ity of capsule 00:00: 00:00 MOUTH [place] 00 :00 EVERY 12 Medical HOURS Branch azithromyci 2020-03- No [id number] 500mg Take 1 [facility] n 500 mg -08 tablet by ity o f tablet 00:00: 00:00 mouth [place] 00 :00 daily. Medical Branch benzonatate 2020-03- No [id number] 200mg Take 1 [facility] 200 mg - capsule by ity of capsule 00:00: 00:00 mouth 3 [place] 00 :00 (three) Medical times Branch daily as needed for Cough. azithromyci 2020-03- No [id number] 500mg Take 1 [facility] n 500 mg -08 tablet by ity o f tablet 00:00: 00:00 mouth [place] 00 :00 daily. Medical Branch benzonatate 2020-03- No [id number] 200mg Take 1 [facility] 200 mg -08 capsule by ity of capsule 00:00: 00:00 mouth 3 [place] 00 :00 (three) Medical times Branch daily as needed for Cough. bumetanide 2020-03- [...] Take 3 [facility] ers 2 mg tablet 217 -01 mg(one and i ty of 00:00: 00:00 a half [place] 00 :00 tabs) in Medical the Branch morning and 2 mg(one tab) in the evening bumetanide 2020-03- No Take 3 [facility] ers 2 mg tablet 217 -01 mg(one and i ty of 00:00: 00:00 a half [place] 00 :00 tabs) in [facility] the Branch morning and 2 mg(one tab) in the evening losartan 50 2020-03- No 50mg Take 1 [facility] vers mg tablet 04-18- tablet by ity of 00:00: 00:00 mouth at [place] 00 :00 bedtime. [facility] Branch losartan 50 2020-03- No 50mg Take 1 [facility] vers mg tablet 04-18-05 tablet by ity of 00:00: 00:00 mouth at [place] 00 :00 bedtime. [facility] Branch losartan 50 2020-03- No 50mg Take 1 [facility] vers mg tablet 04-18-05 tablet by ity of 00:00: 00:00 mouth at [place] 00 :00 bedtime. [facility] Branch losartan 50 2020-03- No 50mg Take 1 [facility] vers mg tablet 04-18-05 tablet by ity of 00:00: 00:00 mouth at [place] 00 :00 bedtime. [facility] spironolact 2020-03- No [id number] 12.5mg Take 0.5 [facility] one 25 mg 04-18 tablets by ity of tablet 00:00: 00:00 mouth [place] 00 :00 daily. [facility] spironolact 2020-03- No [id number] 12.5mg Take 0.5 [facility] one 25 mg 04-18- tablets by ity of tablet 00:00: 00:00 mouth [place] 00 :00 daily. [facility] spironolact 2020-03- No [id number] 12.5mg Take 0.5 [facility] one 25 mg 04-18 tablets by ity of tablet 00:00: 00:00 mouth [place] 00 :00 daily. Medical Branch spironolact 2020-03- No [id number] 12.5mg Take 0.5 [facility] one 25 mg 04-18 tablets by ity of tablet 00:00: 00:00 mouth [place] 00 :00 daily. Medical Branch carvediloL 2020-03- No [id number] 25mg Take 1 [facility] 25 mg 1-22 05-05 tablet by ity of tablet 00:00: 00:00 mouth 2 [place] 00 :00 (two) Medical times Branch daily with meals. carvediloL 2020-03- No [id number] 25mg Take 1 [facility] 25 mg 1-22 05-05 tablet by ity of tablet 00:00: 00:00 mouth 2 [place] 00 :00 (two) Medical times Branch daily with meals. carvediloL 2020-03- No [id number] 25mg Take 1 [facility] 25 mg -22 05-05 tablet by ity of tablet 00:00: 00:00 mouth 2 [place] 00 :00 (two) Medical times Branch daily with meals. carvediloL 2020-03- No [id number] 25mg Take 1 [facility] 25 mg 1-22 05-05 tablet by ity of tablet 00:00: 00:00 mouth 2 [place] 00 :00 (two) Medical times Branch daily [...] ity o f 14:37: 00:00 at bedtime [place] 10 :00 as needed Medical for Branch Insomnia. zolpidem 5 2020-03- No 5mg Take 5 mg [facility] nivers mg tablet 03-19 by mouth ity o f 14:37: 00:00 at bedtime [place] 10 :00 as needed Medical for Branch Insomnia. omeprazole 2020-03 Yes [id number] 40mg Take 1 [facility] 40 mg 1-01 capsule by ity of capsule 00:00: mouth [place] 00 daily. Medical Branch omeprazole 2020-03 Yes [id number] 40mg Take 1 [facility] 40 mg 1-01 capsule by ity of capsule 00:00: mouth [place] 00 daily. Medical Branch omeprazole 2020-03 Yes [id number] 40mg Take 1 [facility] 40 mg 1-01 capsule by ity of capsule 00:00: mouth [place] 00 daily. [facility] Branch omeprazole 2020-03 Yes [id number] 40mg Take 1 [facility] 40 mg 1-01 capsule by ity of capsule 00:00: mouth [place] 00 daily. Medical Branch omeprazole 2020-03 Yes [id number] 40mg Take 1 [facility] 40 mg 1-01 capsule by ity of capsule 00:00: mouth [place] 00 daily. Medical Branch omeprazole 2020-03 Yes [id number] 40mg Take 1 [facility] 40 mg 1-01 capsule by ity of capsule 00:00: mouth [place] 00 daily. Medical Branch omeprazole 2020-03 Yes [id number] 40mg Take 1 [facility] 40 mg 1-01 capsule by ity of capsule 00:00: mouth [place] 00 daily. Medical Branch omeprazole 2020-03 Yes [id number] 40mg Take 1 [facility] 40 mg 1-01 capsule by ity of capsule 00:00: mouth [place] 00 daily. Medical Branch omeprazole 2020-03 Yes [id number] 40mg Take 1 [facility] 40 mg 1-01 capsule by ity of capsule 00:00: mouth [place] 00 daily. [facility] Branch omeprazole 2020-03 Yes [id number] 40mg Take 1 [facility] 40 mg 1-01 capsule by ity of capsule 00:00: mouth [place] 00 daily. Medical Branch omeprazole 2020-03 Yes [id number] 40mg Take 1 [facility] 40 mg 1-01 capsule by ity of capsule 00:00: mouth [place] 00 daily. Medical Branch omeprazole 2020-03 Yes [id number] 40mg Take 1 [facility] 40 mg 1-01 capsule by ity of capsule 00:00: mouth [place] 00 daily. Medical Branch omeprazole 2020-03 Yes [id number] 40mg Take 1 [facility] 40 mg 1-01 capsule by ity of capsule 00:00: mouth [place] 00 daily. Medical Branch omeprazole 2020-03 Yes [id number] 40mg Take 1 [facility] 40 mg -01 capsule by ity of capsule 00:00: mouth [place] 00 daily. Medical Branch omeprazole 2020-03 Yes [id number] 40mg Take 1 [facility] 40 mg -01 capsule by ity of capsule 00:00: mouth [place] 00 daily. Medical Branch omeprazole 2020-03 Yes [id number] 40mg Take 1 [facility] 40 mg - capsule by ity of capsule 00:00: mouth [place] 00 daily. Medical Branch omeprazole 2020-03 Yes [id number] 40mg Take 1 [facility] 40 mg - capsule by ity of capsule 00:00: mouth [place] 00 daily. Medical Branch omeprazole 2020-03- No [id number] 40mg Take 1 [facility] 40 mg 03-12 capsule by ity of capsule 00:00: 00:00 mouth [place] 00 :00 daily. Medical Branch omeprazole 2020-03- No [id number] 40mg Take 1 [facility] 40 mg 03-12 capsule by ity of capsule 00:00: 00:00 mouth [place] 00 :00 daily. Medical Branch omeprazole 2020-03- No [id number] 40mg Take 1 [facility] 40 mg 03-12 capsule by ity of capsule 00:00: 00:00 mouth [place] 00 :00 daily. Medical Branch omeprazole 2020-03- No [id number] 40mg Take 1 [facility] 40 mg 03-12 capsule by ity of capsule 00:00: 00:00 mouth [place] 00 :00 daily. Medical Branch omeprazole 2020-03- No [id number] 40mg Take 1 [facility] 40 mg 03-12 [...] ity of mg tablet 13:16: 00:00 daily. [place] 03 :00 Medical Branch SERTraline 2020-2020- No 100mg Take 100 U nivers 100 mg 0-26 10-26 mg by ity of tablet 13:16: 00:00 mouth 2 [place] 03 :00 (two) Medical times Branch daily. gabapentin 2020- Yes [id number] 600mg Take 2 [facility] 300 mg 0-26 capsules ity of capsule 00:00: by mouth 2 [place] 00 (two) Medical times Branch daily. gabapentin 2020- Yes [id number] 600mg Take 2 [facility] 300 mg 0-26 capsules ity of capsule 00:00: by mouth 2 [place] 00 (two) Medical times Branch daily. gabapentin 2020- Yes [id number] 600mg Take 2 [facility] 300 mg 0-26 capsules ity of capsule 00:00: by mouth 2 [place] 00 (two) Medical times Branch daily. gabapentin 2020- Yes [id number] 600mg Take 2 [facility] 300 mg 0-26 capsules ity of capsule 00:00: by mouth 2 [place] 00 (two) Medical times Branch daily. gabapentin 2020- Yes [id number] 600mg Take 2 [facility] 300 mg 0-26 capsules [facility] [place] [facility] [place] [facility] daily. gabapentin 2020- Yes [id number] 600mg Take 2 [facility] 300 mg 0-26 capsules [facility] capsule 00:[place] [facility] [place] [facility] daily. gabapentin 2020- Yes [id number] 600mg Take 2 [facility] 300 mg 0-26 capsules [facility] capsule 00:[place]: [place] ([place] [facility] times [facility] daily. gabapentin 2020- Yes [id number] 600mg Take 2 [facility] 300 mg 0-26 capsules [facility] capsule 00:[place]: [place] ([place] [facility] times [facility] daily. gabapentin 2020- Yes [id number] 600mg Take 2 [facility] 300 mg 0-26 capsules [facility] capsule 00:[place]: [place] ([place] [facility] times [facility] daily. gabapentin 2020- Yes [id number] 600mg Take 2 [facility] 300 mg 0-26 capsules [facility] capsule 00:00: [place] ([place] Medical times [facility] daily. gabapentin 2020-03 Yes [id number] 600mg Take 2 [facility] 300 mg 0-26 capsules [facility] capsule 00:00: [place] ([place] [facility] times [facility] daily. gabapentin 2020-03 Yes [id number] 600mg Take 2 [facility] 300 mg 0-26 capsules [facility] capsule 00:00: [place] (two[place] Medical times [facility] daily. gabapentin 2020-03 Yes [id number] 600mg Take 2 [facility] 300 mg 0-26 capsules [facility] capsule 00:00: [place] mouth [place] (two[place] Medical times [facility] daily. gabapentin 2020-03 Yes [id number] 600mg Take 2 [facility] 300 mg 0-26 capsules [facility] capsule 00:00: [place] mouth [place] ([place] [facility] times [facility] daily. gabapentin 2020-03 Yes [id number] 600mg Take 2 [facility] 300 mg 0-26 capsules [facility] capsule 00:00: [place] ([place] Medical times [facility] daily. gabapentin 2020-03 Yes [id number] 600mg Take 2 [facility] 300 mg 0-26 capsules [facility] capsule 00:00: [place] mouth [place] ([place] [facility] times [facility] daily. gabapentin 2020-03 Yes [id number] 600mg Take 2 [facility] 300 mg 0-26 capsules [facility] capsule 00:00: [place] mouth [place] (two[place] Medical times [facility] daily. gabapentin 2020-03- No [id number] 600mg Take 2 [facility] 300 mg 0-26 11-03 capsules [facility] of capsule 00:00: 00:00 by mouth 2 [place] 00 :00 (two) Medical times Branch daily. gabapentin 2020-03- No [id number] 600mg Take 2 [facility] 300 mg 0-26 11-03 capsules ity of capsule 00:00: 00:00 by mouth 2 [place] 00 :00 (two) Medical times Branch daily. gabapentin 2020-03- No [id number] 600mg Take 2 [facility] 300 mg 0-26 11-03 capsules [facility]y of capsule 00:00: 00:00 by mouth 2 [place] 00 :00 (two) Medical times [facility] daily. gabapentin 2020-03- No [id number] 600mg Take 2 [facility] 300 mg 0-26 11-03 capsules [facility]y of capsule 00:00: 00:00 by mouth 2 [place] 00 :00 (two) Medical times [facility] daily. gabapentin 2020-03- No [id number] 600mg Take 2 [facility] 300 mg 0-26 11-03 capsules [facility] of capsule 00:00: 00:00 by mouth 2 [place] 00 :00 (two) Medical times Branch daily. SERTraline 2020-03- No [id number] 100mg Take 1 [facility] 100 mg 0-26 09-14 tablet by [facility] of tablet 00:00: 00:00 mouth 2 [place] 00 :00 (two) Medical times Branch daily. SERTraline 2020-03- No [id number] 100mg Take 1 [facility] 100 mg 0-26 09-14 tablet by ity of tablet 00:00: 00:00 mouth 2 [place] 00 :00 (two) Medical times Branch daily. SERTraline 2020-03- No [id number] 100mg Take 1 [facility] 100 mg 0-26 09-14 tablet by ity of tablet 00:00: 00:00 mouth 2 [place] 00 :00 (two) Medical times Branch daily. SERTraline 2020-03- No [id number] 100mg Take 1 [facility] 100 mg 0-26 09-14 tablet by [facility]y of tablet 00:00: 00:00 mouth 2 [place] 00 :00 (two) Medical times Branch daily. warfarin 2020-03- No [id number] 7.5mg Take 1 [facility] 7.5 mg 0-19 03-29 tablet by ity of tablet 00:00: 00:00 mouth [place] 00 :00 every Medical evening. Branch warfarin 2020-03- No [id number] 7.5mg Take 1 [facility] 7.5 mg 0-19 03-29 tablet by ity of tablet 00:00: 00:00 mouth [place] 00 :00 every Medical evening. Branch warfarin 2020-03- No [id number] 7.5mg Take 1 [facility] 7.5 mg 0-19 03-29 tablet by ity of tablet 00:00: 00:00 mouth [place] 00 :00 every Medical evening. Branch warfarin 2020-03- No [id number] 7.5mg Take 1 [facility] 7.5 mg 0-19 - tablet by ity of tablet 00:00: 00:00 mouth [place] 00 :00 every Medical evening. Branch carvediloL 2020- No [id number] 6.25mg Take 0.5 [facility] 12.5 mg 9-28 10-28 tablets by ity o f tablet 00:00: 00:00 mouth 2 [place] 00 :00 (two) Medical times [place] daily with meals for 90 days. carvediloL 2020- No [id number] 6.25mg Take 0.5 [facility] 12.5 mg 9-28 10-28 tablets by ity o f tablet 00:00: 00:00 mouth 2 [place] 00 :00 (two) Medical times [place] daily with meals for 90 days. warfarin 5 2020- No 7.5mg Take 1.5 [facility] mg tablet 9-04 21-19 tablets by ity of 00:00: 00:00 mouth [place] 00 :00 every Medical evening. Branch warfarin 5 2020- No 7.5mg Take 1.5 [facility] mg tablet 9- 10-19 tablets by ity of 00:00: 00:00 mouth [place] 00 :00 every Medical evening. [place] omeprazole Yes 20mg QD Take [address] [facility] (PRILOSEC) 5-10 by mouth [facility] 10 MG 09:09: daily . Medical capsule 20 [place] citalopram Yes 40mg Take [address] (CELEXA) 40 5-10 by mouth. [facility] MG tablet 09:09: Medical 20 [place] furosemide Yes 20mg Take [address] (LASIX) 20 5-10 by mouth [facility] tablet 09:09: as needed Med ical 20 . [place] allopurinol Yes 300mg QD Take [address] (ZYLOPRIM) 5-10 mg by [facility] 300 MG 09:09: mouth Medical tablet 20 daily . [place] HYDROcodone Yes 1{tbl} Take [address] -acetaminop 5-10 tablet by [facility] hen (NORCO 09:09: mouth Medica l 10-325) 20 every 6 [place] 10-325 mg (six) per tablet hours as [...] MG tablet 09:09: daily. Medica l 20 [place] pramipexole Yes 1.5mg QD Take 1.[address] (MIRAPEX) 1 5-10 mg by [facility] tablet 09:09: mouth Medical 20 nightly . [place] omeprazole Yes 20mg QD Take [address] (PRILOSEC) 5-10 by mouth [facility] 10 MG 09:09: daily . Medical capsule 20 [facility] citalopram Yes 40mg Take [address] (CELEXA) 40 5-10 by mouth. [place] [facility] MG tablet 09:09: Medical 20 [place] furosemide Yes 20mg Take [address] (LASIX) 20 5-10 by mouth [facility] tablet 09:09: as needed Med ical 20 . [place] allopurinol Yes 300mg QD Take [address] (ZYLOPRIM) 5-10 mg by [facility] 300 MG 09:09: mouth Medical tablet 20 daily . [place] HYDROcodone Yes 1{tbl} Take 1 [facility] [...] tablet 09:09: mouth Medical 20 nightly . [place] omeprazole Yes 20mg QD Take 20 mg [...] 09:09: as needed Med ical 20 . [place] allopurinol Yes 300mg QD Take [address] (ZYLOPRIM) 5-10 mg by [facility] 300 MG 09:09: mouth Medical tablet 20 daily . [place] HYDROcodone Yes 1{tbl} Take 1 [facility] [...] tablet 09:09: mouth Medical 20 nightly . [place] omeprazole Yes 20mg QD Take [address] (PRILOSEC) 5-10 by mouth [facility] 10 MG 09:09: daily . Medical capsule 20 [place] citalopram Yes 40mg Take [address] (CELEXA) 40 5-10 by mouth. [place] [facility] MG tablet 09:09: Medical 20 [place] pramipexole Yes 1.5mg QD Take 1.[address] (MIRAPEX) 1 5-10 mg by [facility] tablet 09:09: mouth Medical 20 nightly . [place] furosemide Yes 20mg Take [address] (LASIX) 20 5-10 by mouth [facility] tablet 09:09: as needed Med ical 20 . [place] allopurinol Yes 300mg QD Take [address] (ZYLOPRIM) 5-10 mg by [facility] 300 MG 09:09: mouth Medical tablet 20 daily . [place] HYDROcodone Yes 1{tbl} Take 1 [facility] I [...] MG tablet 09:09: daily. Medica l 20 [place] pramipexole Yes 1.5mg QD Take 1.[address] (MIRAPEX) 1 5-10 mg by [facility] tablet 09:09: mouth Medical 20 nightly . [place] omeprazole Yes 20mg QD Take [address] (PRILOSEC) 5-10 by mouth [facility] 10 MG 09:09: daily . Medical capsule 20 [facility] citalopram Yes 40mg Take [address] (CELEXA) 40 5-10 by mouth. [place] MG tablet 09:09: Medical 20 [place] furosemide Yes 20mg Take [address] (LASIX) 20 5-10 by mouth [facility] tablet 09:09: as needed Med ical 20 . [place] allopurinol Yes 300mg QD Take [address] (ZYLOPRIM) 5-10 mg by [facility] 300 MG 09:09: mouth Medical tablet 20 daily . [place] HYDROcodone Yes 1{tbl} Take 1 [facility] I [...] MG tablet 09:09: daily. Medi drew 20 [place] pramipexole 2017-0 Yes 1.5mg QD Take 1.[address] (MIRAPEX) 1 5-10 mg by [facility] tablet 09:09: mouth Medical 20 nightly . [place] omeprazole 0 Yes 20mg QD Take [address] (PRILOSEC) 5-10 by mouth [facility] 10 MG 09:09: daily . Medical capsule 20 [place] citalopram 2017-0 Yes 40mg Take [address] (CELEXA) 40 5-10 by mouth. [place] [facility] MG tablet 09:09: Medical 20 [place] furosemide 2017-0 Yes 20mg Take [address] (LASIX) 20 5-10 by mouth [facility] tablet 09:09: as needed Med ical 20 . [place] allopurinol 0 Yes 300mg QD Take [address] (ZYLOPRIM) 5-10 mg by [facility] 300 MG 09:09: mouth Medical tablet 20 daily . [place] HYDROcodone Yes 1{tbl} Take 1 [facility] I [...] 50 MG 09:09: daily. Medical tablet 20 [place] clonazePAM 2017-0 Yes 1mg QD Take 1 [...] 09:09: daily. Medica l 20 [facility] omeprazole 2017 Yes 20mg QD Take [address] (PRILOSEC) 5-10 by mouth [facility] 10 MG 09:09: daily . Medical capsule 20 Center MORPHINE IN 2017-[address] [facility], 5-10 [facility] ISO-OSM/PF 09:09: l route. Med ical (MORPHINE, 20 Center PF, IN NACL, ISO-OSM INTRATHECAL ) losartan Yes 50mg QD Take [address] [facility] (COZAAR) 50 5-10 by mouth [facility] MG tablet 09:09: daily. Medica l 20 [facility] citalopram Yes 40mg Take [address] (CELEXA) 40 5-10 by mouth. [place] [facility] MG tablet 09:09: Medical 20 [facility] furosemide 0 Yes 20mg Take 20 mg [facility] [...] 09:09: daily. Medical tablet 20 Center clonazePAM 0 Yes 1mg QD Take 1 mg [facility] [...] tablet 09:09: mouth Medical 20 nightly . [place] omeprazole Yes 20mg QD Take 20 mg [...] 09:09: as needed Med ical 20 . [place] allopurinol Yes 300mg QD Take [address] (ZYLOPRIM) 5-10 mg by [facility] 300 MG 09:09: mouth Medical tablet 20 daily . [place] HYDROcodone Yes 1{tbl} Take [address] -acetaminop 5-10 tablet by [facility] hen (NORCO 09:09: mouth Medica l 10-325) 20 every 6 Center 10-325 mg (six) per tablet hours as needed . gemfibrozil 2016- Yes 600mg Q.5D Take [address] (LOPID) 600 5-10 mg by [facility] tablet 09:09: mouth 2 Medic al 20 (two) Center times daily . primidone [id number] Yes 50mg QD Take 50 mg [facility] [...] MG tablet 09:09: daily. Medica l 20 [place] pramipexole Yes 1.5mg QD Take 1.[address] (MIRAPEX) 1 5-10 mg by [facility] tablet 09:09: mouth Medical 20 nightly . [place] allopurinol 2021- No [id number] 300mg Take 1 [facility] 300 mg 3-28 02-08 tablet by ity of tablet 00:00: 00:00 mouth [place] 00 :00 daily. [facility] allopurinol 2021- No [id number] 300mg Take 1 [facility] 300 mg 3-28 -08 tablet by ity of tablet 00:00: 00:00 mouth [place] 00 :00 daily. [facility] allopurinol 2021- No [id number] 300mg Take 1 [facility] 300 mg 3-28 -08 tablet by ity of tablet 00:00: 00:00 mouth [place] 00 :00 daily. [facility] allopurinol 2021- No [id number] 300mg Take 1 [facility] 300 mg 3-28 -08 tablet by ity of tablet 00:00: 00:00 mouth [place] 00 :00 daily. [facility] Branch losartan 50 2020- No 50mg Take 1 Uni vers mg tablet -17 -28 tablet by ity of 00:00: 00:00 mouth [place] 00 :00 daily. [facility] losartan 50 2020- No 50mg Take 1 [facility] vers mg tablet 3-17 -28 tablet by ity of 00:00: 00:00 mouth [place] 00 :00 daily. [facility] gabapentin Yes 300mg QD Take [address] (NEURONTIN) 2-07 mg by [facility] 300 MG 00:00: mouth Medical capsule 00 nightly . [place] gabapentin Yes 300mg QD Take [address] (NEURONTIN) 2-07 mg by [facility] 300 MG 00:00: mouth Medical capsule 00 nightly . [place] gabapentin 2017-0 Yes 300mg QD Take [address] (NEURONTIN) 2-07 mg by [facility] 300 MG 00:00: mouth Medical capsule 00 nightly . [place] gabapentin 2017-0 Yes 300mg QD Take [address] (NEURONTIN) 2-07 mg by [facility] 300 MG 00:00: mouth Medical capsule 00 nightly . [place] gabapentin 2017-0 Yes 300mg QD Take [address] (NEURONTIN) 2-07 mg by [facility] 300 MG 00:00: mouth Medical capsule 00 nightly . [place] gabapentin 2017-0 Yes 300mg QD Take [address] (NEURONTIN) 2-07 mg by [facility] 300 MG 00:00: mouth Medical capsule 00 nightly . [place] gabapentin 2017-0 Yes 300mg QD Take [address] (NEURONTIN) 2-07 mg by [facility] 300 MG 00:00: mouth Medical capsule 00 nightly . [place] gabapentin 2017-0 Yes 300mg QD Take [address] (NEURONTIN) 2-07 mg by [facility] 300 MG 00:00: mouth Medical capsule 00 nightly . [place] traZODone 2017-0 Yes 50mg QD Take [address] [facility] (DESYREL) 1-23 by mouth [facility] 50 MG 00:00: daily . Medical tablet 00 [place] traZODone [id number] Yes 50mg QD Take [address] (DESYREL) 1-23 by mouth [facility] 50 MG 00:00: daily . Medical tablet 00 [place] traZODone [id number] Yes 50mg QD Take [address] (DESYREL) 1-23 by mouth [facility] 50 MG 00:00: daily . Medical tablet 00 [place] traZODone 2017-0 Yes 50mg QD Take [address] (DESYREL) 1-23 by mouth [facility] 50 MG 00:00: daily . Medical tablet 00 [place] traZODone 2017-0 Yes 50mg QD Take [address] (DESYREL) 1-23 by mouth [facility] 50 MG 00:00: daily . Medical tablet 00 [place] traZODone 2017-0 Yes 50mg QD Take [address] (DESYREL) 1-23 by mouth [facility] 50 MG 00:00: daily . Medical tablet 00 [place] traZODone 2017-0 Yes 50mg QD Take [address] (DESYREL) 1-23 by mouth [facility] 50 MG 00:00: daily . Medical tablet [address] [place] [address] traZODone 2017-0 Yes 50mg QD Take [address] (DESYREL) 1-23 by mouth [facility] 50 MG 00:00: daily . Medical tablet [address] [place] [address] Immunizations Ordered Filled Date Status Comments Source [...] 2021-04-19 Completed [facility] of Vaccine,quad 00:00:00 [place] [facility] 65+ Influenza Virus 2019-12-24 Completed [facility]it y of Vaccine (3+ yrs) 00:00:00 [place] [facility] dical [facility] Influenza Virus 2019-12-24 Completed Universit y of Vaccine (3+ yrs) 00:00:00 [facility] [place] [facility] dical Branch Influenza Virus 2019-12-24 Completed Universit y of Vaccine (3+ yrs) 00:00:00 [facility] [place] [facility] dical Branch Influenza Virus 2019-12-24 Completed Universit y of Vaccine (3+ yrs) 00:00:00 [facility] [place] [facility] dical Branch Influenza Virus 2019-12-24 Completed Universit y of Vaccine (3+ yrs) 00:00:00 [facility] [place] [facility] dical Branch Influenza Virus 2019-12-24 Completed Universit y of Vaccine (3+ yrs) 00:00:00 [facility] [place] [facility] dical Branch Influenza Virus 2019-12-24 Completed Universit y of Vaccine (3+ yrs) 00:00:00 [facility] [place] [facility] dical Branch Influenza Virus 2019-12-24 Completed Universit y of Vaccine (3+ yrs) 00:00:00 [facility] [place] [facility] dical Branch Influenza Virus 2019-12-24 Completed Universit y of Vaccine (3+ yrs) 00:00:00 [facility] [place] [facility] dical Branch Influenza Virus 2019-12-24 Completed Universit y of Vaccine (3+ yrs) 00:00:00 [facility] [place] [facility] dical Branch Influenza Virus 2019-12-24 Completed Universit y of Vaccine (3+ yrs) 00:00:00 [facility] [place] [facility] dical Branch Influenza Virus 2019-12-24 Completed Universit y of Vaccine (3+ yrs) 00:00:00 [facility] [place] [facility] dical Branch Influenza Virus 2019-12-24 Completed Universit y of Vaccine (3+ yrs) 00:00:00 [facility] [place] [facility] dical Branch Influenza Virus 2019-12-24 Completed Universit y of Vaccine (3+ yrs) 00:00:00 [facility] [place] [facility] dical Branch Influenza Virus 2019-12-24 Completed Universit y of Vaccine (3+ yrs) 00:00:00 [facility] [place] [facility] dical Branch Influenza Virus 2019-12-24 Completed Universit y of Vaccine (3+ yrs) 00:00:00 [facility] [place] [facility] dicme Branch Influenza Virus 2019-12-24 Completed Universit y of Vaccine (3+ yrs) 00:00:00 [facility] Influenza Virus 2019-12-24 Completed Universit y of Vaccine (3+ yrs) 00:00:00 [facility] Influenza Virus 2019-12-24 Completed Universit y of Vaccine (3+ yrs) 00:00:00 [facility] Influenza Virus 2019-12-24 Completed Universit y of Vaccine (3+ yrs) 00:00:00 [facility] Influenza Virus 2019-12-24 Completed Universit y of Vaccine (3+ yrs) 00:00:00 [facility] Influenza Virus 2019-12-24 Completed Universit y of Vaccine (3+ yrs) 00:00:00 [facility] Influenza Virus 2019-12-24 Completed Universit y of Vaccine (3+ yrs) 00:00:00 [facility] Influenza Virus 2019-12-24 Completed Universit y of Vaccine (3+ yrs) 00:00:00 [facility] Influenza Virus 2019-12-24 Completed Universit y of Vaccine (3+ yrs) 00:00:00 [facility] Influenza Virus 2019-12-24 Completed Universit y of Vaccine (3+ yrs) 00:00:00 [facility] Influenza Virus 2019-12-24 Completed Universit y of Vaccine (3+ yrs) 00:00:00 [facility] Influenza Virus 2019-12-24 Completed Universit y of Vaccine (3+ yrs) 00:00:00 [facility] Influenza Virus 2019-12-24 Completed Universit y of Vaccine (3+ yrs) 00:00:00 [facility] Influenza Virus 2019-12-24 Completed Universit y of Vaccine (3+ yrs) 00:00:00 [facility] Influenza Virus 2019-12-24 Completed Universit y of Vaccine (3+ yrs) 00:00:00 [facility] Influenza Virus 2019-12-24 Completed Universit y of Vaccine (3+ yrs) 00:00:00 [facility] Influenza Virus 2019-12-24 Completed Universit y of Vaccine (3+ yrs) 00:00:00 [facility] Influenza Virus 2019-12-24 Completed Universit y of Vaccine (3+ yrs) 00:00:00 [facility] Influenza Virus 2019-12-24 Completed Universit y of Vaccine (3+ yrs) 00:00:00 [facility] Influenza Virus 2019-12-24 Completed Universit y of Vaccine (3+ yrs) 00:00:00 [facility] Influenza Virus 2019-12-24 Completed Universit y of Vaccine (3+ yrs) 00:00:00 [facility] Influenza Virus 2019-12-24 Completed Universit y of Vaccine (3+ yrs) 00:00:00 [facility] Influenza Virus 2019-12-24 Completed Universit y of Vaccine (3+ yrs) 00:00:00 [facility] Influenza Virus 2019-12-24 Completed Universit y of Vaccine (3+ yrs) 00:00:00 [facility] Influenza Virus 2019-12-24 Completed Universit y of Vaccine (3+ yrs) 00:00:00 [facility] Influenza Virus 2019-12-24 Completed Universit y of Vaccine (3+ yrs) 00:00:00 [facility] Influenza Virus 2019-12-24 Completed Universit y of Vaccine (3+ yrs) 00:00:00 [facility] Influenza Virus 2019-12-24 Completed Universit y of Vaccine (3+ yrs) 00:00:00 [facility] Influenza Virus 2019-12-24 Completed Universit y of Vaccine (3+ yrs) 00:00:00 [facility] Influenza Virus 2019-12-24 Completed Universit y of Vaccine (3+ yrs) 00:00:00 [facility] Influenza Virus 2019-12-24 Completed Universit y of Vaccine (3+ yrs) 00:00:00 [facility] Influenza Virus 2019-12-24 Completed Universit y of Vaccine (3+ yrs) 00:00:00 [facility] Influenza Virus 2019-12-24 Completed Universit y of Vaccine (3+ yrs) 00:00:00 [facility] Influenza Virus 2019-12-24 Completed Universit y of Vaccine (3+ yrs) 00:00:00 [facility] Influenza Virus 2019-12-24 Completed Universit y of Vaccine (3+ yrs) 00:00:00 [facility] Influenza Virus 2019-12-24 Completed Universit y of Vaccine (3+ yrs) 00:00:00 [facility] Influenza Virus 2019-12-24 Completed Universit y of Vaccine (3+ yrs) 00:00:00 [facility] Influenza Virus 2019-12-24 Completed Universit y of Vaccine (3+ yrs) 00:00:00 [facility] Influenza Virus 2019-12-24 Completed Universit y of Vaccine (3+ yrs) 00:00:00 [facility] Influenza Virus 2019-12-24 Completed Universit y of Vaccine (3+ yrs) 00:00:00 [facility] Influenza Virus 2019-12-24 Completed Universit y of Vaccine (3+ yrs) 00:00:00 [facility] Influenza Virus 2019-12-24 Completed Universit y of Vaccine (3+ yrs) 00:00:00 [facility] Influenza Virus 2019-12-24 Completed Universit y of Vaccine (3+ yrs) 00:00:00 [facility] Influenza Virus 2019-12-24 Completed Universit y of Vaccine (3+ yrs) 00:00:00 [facility] Influenza Virus 2019-12-24 Completed Universit y of Vaccine (3+ yrs) 00:00:00 [facility] Influenza Virus 2019-12-24 Completed Universit y of Vaccine (3+ yrs) 00:00:00 [facility] Influenza Virus 2019-12-24 Completed Universit y of Vaccine (3+ yrs) 00:00:00 [facility] Influenza Virus 2019-12-24 Completed Universit y of Vaccine (3+ yrs) 00:00:00 [facility] Influenza Virus 2019-12-24 Completed Universit y of Vaccine (3+ yrs) 00:00:00 [facility] Influenza Virus 2019-12-24 Completed Universit y of Vaccine (3+ yrs) 00:00:00 [facility] Influenza Virus 2019-12-24 Completed Universit y of Vaccine (3+ yrs) 00:00:00 [facility] Influenza Virus 2019-12-24 Completed Universit y of Vaccine (3+ yrs) 00:00:00 [facility] Influenza Virus 2019-12-24 Completed Universit y of Vaccine (3+ yrs) 00:00:00 [facility] Influenza Virus 2019-12-24 Completed Universit y of Vaccine (3+ yrs) 00:00:00 [facility] Influenza Virus 2019-12-24 Completed Universit y of Vaccine (3+ yrs) 00:00:00 [facility] Influenza Virus 2019-12-24 Completed Universit y of Vaccine (3+ yrs) 00:00:00 [facility] Influenza Virus 2019-12-24 Completed Universit y of Vaccine (3+ yrs) 00:00:00 [facility] Influenza Virus 2019-12-24 Completed Universit y of Vaccine (3+ yrs) 00:00:00 [facility] Influenza Virus 2019-12-24 Completed Universit y of Vaccine (3+ yrs) 00:00:00 [facility] Influenza Virus 2019-12-24 Completed Universit y of Vaccine (3+ yrs) 00:00:00 [facility] Influenza Virus 2019-12-24 Completed Universit y of Vaccine (3+ yrs) 00:00:00 [facility] Influenza Virus 2019-12-24 Completed Universit y of Vaccine (3+ yrs) 00:00:00 [facility] Influenza Virus 2019-12-24 Completed Universit y of Vaccine (3+ yrs) 00:00:00 [facility] Influenza Virus 2019-11-26 Completed Universit y of Vaccine (3+ yrs) 00:00:00 [facility] Influenza Virus 2019-11-26 Completed Universit y of Vaccine (3+ yrs) 00:00:00 [facility] Influenza Virus 2019-11-26 Completed [facility] Vaccine (3+ yrs) 00:00:00 [facility] Influenza Virus 2019-11-26 Completed [facility] Vaccine (3+ yrs) 00:00:00 [facility] Influenza Virus 2019-11-26 Completed [facility] Vaccine (3+ yrs) 00:00:00 [facility] Influenza Virus 2019-11-26 Completed [facility] Vaccine (3+ yrs) 00:00:00 [facility] Influenza Virus 2019-11-26 Completed [facility] Vaccine (3+ yrs) 00:00:00 [facility] Influenza Virus 2019-11-26 Completed [facility] Vaccine (3+ yrs) 00:00:00 [facility] Influenza Virus 2019-11-26 Completed [facility] Vaccine (3+ yrs) 00:00:00 [facility] Influenza Virus 2019-11-26 Completed [facility] Vaccine (3+ yrs) 00:00:00 [facility] Influenza Virus 2019-11-26 Completed [facility] Vaccine (3+ yrs) 00:00:00 [facility] Influenza Virus 2019-11-26 Completed [facility] Vaccine (3+ yrs) 00:00:00 [facility] Influenza Virus 2019-11-26 Completed [facility] Vaccine (3+ yrs) 00:00:00 [facility] Influenza Virus 2019-11-26 Completed [facility] Vaccine (3+ yrs) 00:00:00 [facility] Influenza Virus 2019-11-26 Completed [facility] Vaccine (3+ yrs) 00:00:00 [facility] Influenza Virus 2019-11-26 Completed [facility] Vaccine (3+ yrs) 00:00:00 [facility] Influenza Virus 2019-11-26 Completed [facility] Vaccine (3+ yrs) 00:00:00 [facility] Influenza Virus 2019-11-26 Completed [facility] Vaccine (3+ yrs) 00:00:00 [facility] Influenza Virus 2019-11-26 Completed [facility] Vaccine (3+ yrs) 00:00:00 [facility] Influenza Virus 2019-11-26 Completed [facility] Vaccine (3+ yrs) 00:00:00 [facility] Influenza Virus 2019-11-26 Completed [facility] Vaccine (3+ yrs) 00:00:00 [facility] Influenza Virus 2019-11-26 Completed [facility] Vaccine (3+ yrs) 00:00:00 [facility] Influenza Virus 2019-11-26 Completed [facility] Vaccine (3+ yrs) 00:00:00 [facility] Influenza Virus 2019-11-26 Completed [facility] Vaccine (3+ yrs) 00:00:00 [facility] Influenza Virus 2019-11-26 Completed [facility] Vaccine (3+ yrs) 00:00:00 [facility] Influenza Virus 2019-11-26 Completed [facility] Vaccine (3+ yrs) 00:00:00 [facility] Influenza Virus 2019-11-26 Completed [facility] Vaccine (3+ yrs) 00:00:00 [facility] Influenza Virus 2019-11-26 Completed [facility] Vaccine (3+ yrs) 00:00:00 [facility] Influenza Virus 2019-11-26 Completed [facility] Vaccine (3+ yrs) 00:00:00 [facility] Influenza Virus 2019-11-26 Completed [facility] Vaccine (3+ yrs) 00:00:00 [facility] Influenza Virus 2019-11-26 Completed [facility] Vaccine (3+ yrs) 00:00:00 [facility] Influenza Virus 2019-11-26 Completed [facility] Vaccine (3+ yrs) 00:00:00 [facility] Influenza Virus 2019-11-26 Completed [facility] Vaccine (3+ yrs) 00:00:00 [facility] Influenza Virus 2019-11-26 Completed [facility] Vaccine (3+ yrs) 00:00:00 [facility] Influenza Virus 2019-11-26 Completed [facility] Vaccine (3+ yrs) 00:00:00 [facility] Influenza Virus 2019-11-26 Completed [facility] Vaccine (3+ yrs) 00:00:00 [facility] Influenza Virus 2019-11-26 Completed [facility] Vaccine (3+ yrs) 00:00:00 [facility] Influenza Virus 2019-11-26 Completed [facility] of Vaccine (3+ yrs) 00:00:00 [facility] Influenza Virus 2019-11-26 Completed [facility] Vaccine (3+ yrs) 00:00:00 [facility] Influenza Virus 2019-11-26 Completed [facility] Vaccine (3+ yrs) 00:00:00 [facility] Influenza Virus 2019-11-26 Completed [facility] Vaccine (3+ yrs) 00:00:00 [facility] Influenza Virus 2019-11-26 Completed [facility] Vaccine (3+ yrs) 00:00:00 [facility] Influenza Virus 2019-11-26 Completed [facility] Vaccine (3+ yrs) 00:00:00 [facility] Influenza Virus 2019-11-26 Completed [facility] Vaccine (3+ yrs) 00:00:00 [facility] Influenza Virus 2019-11-26 Completed [facility] of Vaccine (3+ yrs) 00:00:00 [facility] Influenza Virus 2019-11-26 Completed [facility] Vaccine (3+ yrs) 00:00:00 [facility] Influenza Virus 2019-11-26 Completed [facility] Vaccine (3+ yrs) 00:00:00 [facility] Influenza Virus 2019-11-26 Completed [facility] Vaccine (3+ yrs) 00:00:00 [facility] Influenza Virus 2019-11-26 Completed [facility] Vaccine (3+ yrs) 00:00:00 [facility] Influenza Virus 2019-11-26 Completed [facility] Vaccine (3+ yrs) 00:00:00 [facility] Influenza Virus 2019-11-26 Completed [facility] Vaccine (3+ yrs) 00:00:00 [facility] Influenza Virus 2019-11-26 Completed [facility] Vaccine (3+ yrs) 00:00:00 [facility] Influenza Virus 2019-11-26 Completed [facility] Vaccine (3+ yrs) 00:00:00 [facility] Influenza Virus 2019-11-26 Completed [facility] Vaccine (3+ yrs) 00:00:00 [facility] Influenza Virus 2019-11-26 Completed [facility] Vaccine (3+ yrs) 00:00:00 [facility] Influenza Virus 2019-11-26 Completed [facility] Vaccine (3+ yrs) 00:00:00 [facility] Influenza Virus 2019-11-26 Completed [facility] Vaccine (3+ yrs) 00:00:00 [facility] Influenza Virus 2019-11-26 Completed [facility] Vaccine (3+ yrs) 00:00:00 [facility] Influenza Virus 2019-11-26 Completed [facility] Vaccine (3+ yrs) 00:00:00 [facility] Influenza Virus 2019-11-26 Completed [facility] Vaccine (3+ yrs) 00:00:00 [facility] Influenza Virus 2019-11-26 Completed [facility] Vaccine (3+ yrs) 00:00:00 [facility] Influenza Virus 2019-11-26 Completed [facility] Vaccine (3+ yrs) 00:00:00 [facility] Influenza Virus 2019-11-26 Completed [facility] Vaccine (3+ yrs) 00:00:00 [facility] Influenza Virus 2019-11-26 Completed [facility] Vaccine (3+ yrs) 00:00:00 [facility] Influenza Virus 2019-11-26 Completed [facility] of Vaccine (3+ yrs) 00:00:00 [facility] Influenza Virus 2019-11-26 Completed [facility] of Vaccine (3+ yrs) 00:00:00 [facility] Influenza Virus 2019-11-26 Completed [facility] Vaccine (3+ yrs) 00:00:00 [facility] Influenza Virus 2019-11-26 Completed [facility] of Vaccine (3+ yrs) 00:00:00 [facility] Influenza Virus 2019-11-26 Completed [facility] Vaccine (3+ yrs) 00:00:00 [facility] Influenza Virus 2019-11-26 Completed [facility] of Vaccine (3+ yrs) 00:00:00 [facility] Influenza Virus 2019-11-26 Completed [facility] Vaccine (3+ yrs) 00:00:00 [facility] Influenza Virus 2019-11-26 Completed [facility] Vaccine (3+ yrs) 00:00:00 [facility] Influenza Virus 2019-11-26 Completed [facility] of Vaccine (3+ yrs) 00:00:00 [facility] Influenza Virus 2019-11-26 Completed [facility] Vaccine (3+ yrs) 00:00:00 [facility] Influenza Virus 2019-11-26 Completed [facility] of Vaccine (3+ yrs) 00:00:00 [facility] Influenza Virus 2019-11-26 Completed [facility] Vaccine (3+ yrs) 00:00:00 [facility] Influenza Virus 2019-11-26 Completed [facility] of Vaccine (3+ yrs) 00:00:00 [facility] Influenza Virus 2019-11-26 Completed [facility] of Vaccine (3+ yrs) 00:00:00 [facility] Influenza Virus 2019-11-26 Completed [facility] Vaccine (3+ yrs) 00:00:00 [facility] Twinrix (hep a/hep 2019-05-23 Completed Univer sity of b) 00:00:00 [facility] Twinrix (hep a/hep 2019-05-23 Completed Univer sity of b) 00:00:00 [facility] Twinrix (hep a/hep 2019-05-23 Completed Univer sity of b) 00:00:00 [facility] Twinrix (hep a/hep 2019-05-23 Completed Univer sity of b) 00:00:00 [facility] Twinrix (hep a/hep 2019-05-23 Completed Univer sity of b) 00:00:00 [facility] Twinrix (hep a/hep 2019-05-23 Completed Univer sity of b) 00:00:00 [facility] Twinrix (hep a/hep 2019-05-23 Completed Univer sity of b) 00:00:00 [facility] Twinrix (hep a/hep 2019-05-23 Completed Univer sity of b) 00:00:00 [facility] Twinrix (hep a/hep 2019-05-23 Completed Univer sity of b) 00:00:00 [facility] Twinrix (hep a/hep 2019-05-23 Completed Univer sity of b) 00:00:00 [facility] Twinrix (hep a/hep 2019-05-23 Completed Univer sity of b) 00:00:00 [facility] Twinrix (hep a/hep 2019-05-23 Completed Univer sity of b) 00:00:00 [facility] Twinrix (hep a/hep 2019-05-23 Completed Univer sity of b) 00:00:00 [facility] Twinrix (hep a/hep 2019-05-23 Completed Univer sity of b) 00:00:00 [facility] Twinrix (hep a/hep 2019-05-23 Completed Univer sity of b) 00:00:00 [facility] Twinrix (hep a/hep 2019-05-23 Completed Univer sity of b) 00:00:00 [facility] Twinrix (hep a/hep 2019-05-23 Completed Univer sity of b) 00:00:00 [facility] Twinrix (hep a/hep 2019-05-23 Completed Univer sity of b) 00:00:00 [facility] Twinrix (hep a/hep 2019-05-23 Completed Univer sity of b) 00:00:00 [facility] Twinrix (hep a/hep 2019-05-23 Completed Univer sity of b) 00:00:00 [facility] Twinrix (hep a/hep 2019-05-23 Completed Univer sity of b) 00:00:00 [facility] Twinrix (hep a/hep 2019-05-23 Completed Univer sity of b) 00:00:00 [facility] Twinrix (hep a/hep 2019-05-23 Completed Univer sity of b) 00:00:00 [facility] Twinrix (hep a/hep 2019-05-23 Completed Univer sity of b) 00:00:00 [facility] Twinrix (hep a/hep 2019-05-23 Completed Univer sity of b) 00:00:00 [facility] Twinrix (hep a/hep 2019-05-23 Completed Univer sity of b) 00:00:00 [facility] Twinrix (hep a/hep 2019-05-23 Completed Univer sity of b) 00:00:00 [facility] Twinrix (hep a/hep 2019-05-23 Completed Univer sity of b) 00:00:00 [facility] Twinrix (hep a/hep 2019-05-23 Completed Univer sity of b) 00:00:00 [facility] Twinrix (hep a/hep 2019-05-23 Completed Univer sity of b) 00:00:00 [facility] Twinrix (hep a/hep 2019-05-23 Completed Univer sity of b) 00:00:00 [facility] Twinrix (hep a/hep 2019-05-23 Completed Univer sity of b) 00:00:00 [facility] Twinrix (hep a/hep 2019-05-23 Completed Univer sity of b) 00:00:00 [facility] Twinrix (hep a/hep 2019-05-23 Completed Univer sity of b) 00:00:00 [facility] Twinrix (hep a/hep 2019-05-23 Completed Univer sity of b) 00:00:00 [facility] Twinrix (hep a/hep 2019-05-23 Completed [...] 2019-05-23 Completed Univer sity of b) 00:00:00 [facility] Twinrix (hep a/hep 2019-05-23 Completed Univer sity of b) 00:00:00 [facility] Twinrix (hep a/hep 2019-05-23 Completed Univer sity of b) 00:00:00 [facility] Twinrix (hep a/hep 2019-05-23 Completed Univer sity of b) 00:00:00 [facility] Twinrix (hep a/hep 2019-05-23 Completed Univer sity of b) 00:00:00 [facility] Twinrix (hep a/hep 2019-05-23 Completed Univer sity of b) 00:00:00 [facility] Twinrix (hep a/hep 2019-05-23 Completed Univer sity of b) 00:00:00 [facility] Twinrix (hep a/hep 2019-05-23 Completed Univer sity of b) 00:00:00 [facility] Twinrix (hep a/hep 2019-05-23 Completed Univer sity of b) 00:00:00 [facility] Twinrix (hep a/hep 2019-05-23 Completed Univer sity of b) 00:00:00 [facility] Twinrix (hep a/hep 2019-05-23 Completed Univer sity of b) 00:00:00 [facility] Twinrix (hep a/hep 2019-05-23 Completed Univer sity of b) 00:00:00 [facility] Twinrix (hep a/hep 2019-05-23 Completed Univer sity of b) 00:00:00 [facility] Twinrix (hep a/hep 2019-05-23 Completed [...] 2019-05-23 Completed Univer sity of b) 00:00:00 [facility] Twinrix (hep a/hep 2019-05-23 Completed Univer sity of b) 00:00:00 [facility] Twinrix (hep a/hep 2019-05-23 Completed Univer sity of b) 00:00:00 [facility] Twinrix (hep a/hep 2019-05-23 Completed Univer sity of b) 00:00:00 [facility] Twinrix (hep a/hep 2019-05-23 Completed Univer sity of b) 00:00:00 [facility] Twinrix (hep a/hep 2019-05-23 Completed Univer sity of b) 00:00:00 [facility] Twinrix (hep a/hep 2019-05-23 Completed Univer sity of b) 00:00:00 [facility] Twinrix (hep a/hep 2019-05-23 Completed Univer sity of b) 00:00:00 [facility] Twinrix (hep a/hep 2019-05-23 Completed Univer sity of b) 00:00:00 [facility] Twinrix (hep a/hep 2019-05-23 Completed Univer sity of b) 00:00:00 [facility] Twinrix (hep a/hep 2019-05-23 Completed Univer sity of b) 00:00:00 [facility] Twinrix (hep a/hep 2019-05-23 Completed Univer sity of b) 00:00:00 [facility] Twinrix (hep a/hep 2019-05-23 Completed Univer sity of b) 00:00:00 [facility] Twinrix (hep a/hep 2019-05-23 Completed Univer sity of b) 00:00:00 [facility] Twinrix (hep a/hep 2019-05-23 Completed Univer sity of b) 00:00:00 [facility] Twinrix (hep a/hep 2019-05-23 Completed Univer sity of b) 00:00:00 [facility] Twinrix (hep a/hep 2019-05-23 Completed Univer sity of b) 00:00:00 [facility] Twinrix (hep a/hep 2019-05-23 Completed Univer sity of b) 00:00:00 [facility] Twinrix (hep a/hep 2019-05-23 Completed Univer sity of b) 00:00:00 [facility] Twinrix (hep a/hep 2019-05-23 Completed Univer sity of b) 00:00:00 [facility] Twinrix (hep a/hep 2019-05-23 Completed Univer sity of b) 00:00:00 [facility] Twinrix (hep a/hep 2019-05-23 Completed Univer sity of b) 00:00:00 [facility] Pneumococcal 13 2018-12-28 Completed Univers[facility] y of Conjugate, PCV13 00:00:00 [facility] dical (Prevnar 13) Branch Pneumococcal 13 2018-12-28 Completed [facility] y of Conjugate, PCV13 00:00:00 [facility] dical (Prevnar 13) Branch Pneumococcal 13 2018-12-28 Completed Univers[facility] y of Conjugate, PCV13 00:00:00 [facility] dical (Prevnar 13) Branch Pneumococcal 13 2018-12-28 Completed [facility] y of Conjugate, PCV13 00:00:00 [facility] dical (Prevnar 13) Branch Pneumococcal 13 2018-12-28 Completed [facility] of Conjugate, PCV13 00:00:00 [facility] (Prevnar 13) [facility] Pneumococcal 13 2018-12-28 Completed [facility] y of Conjugate, PCV13 00:00:00 [facility] (Prevnar 13) Branch Pneumococcal 13 2018-12-28 Completed [facility] y of Conjugate, PCV13 00:00:00 [facility] dical (Prevnar 13) Branch Pneumococcal 13 2018-12-28 Completed [facility] y of Conjugate, PCV13 00:00:00 [facility] dical (Prevnar 13) Branch Pneumococcal 13 2018-12-28 [...] y of Conjugate, PCV13 00:00:00 [facility] dical (Prevnar 13) Branch Pneumococcal 13 2018-12-28 Completed [facility] y of Conjugate, PCV13 00:00:00 [facility] dical (Prevnar 13) Branch Pneumococcal 13 2018-12-28 Completed [facility] y of Conjugate, PCV13 00:00:00 [facility] dical (Prevnar 13) Branch Pneumococcal 13 2018-12-28 Completed [facility] y of Conjugate, PCV13 00:00:00 [facility] dical (Prevnar 13) Branch Pneumococcal 13 2018-12-28 Completed [facility] y of Conjugate, PCV13 00:00:00 [facility] dical (Prevnar 13) Branch Pneumococcal 13 2018-12-28 Completed [facility] y of Conjugate, PCV13 00:00:00 [facility] dical (Prevnar 13) Branch Influenza Virus 2018-11-25 Completed Universit y of Vaccine (3+ yrs) 00:00:00 [facility] Influenza High Dose 2018-11-25 Completed Unive rsity of 00:00:00 [facility] Influenza Virus 2018-11-25 Completed Universit y of Vaccine (3+ yrs) 00:00:00 [facility] Influenza High Dose 2018-11-25 Completed Unive rsity of 00:00:00 [facility] Influenza Virus 2018-11-25 Completed Univers[facility] y of Vaccine (3+ yrs) 00:00:00 [facility] Influenza High Dose 2018-11-25 Completed Unive rsity of 00:00:00 [facility] Influenza Virus 2018-11-25 Completed [facility]it y of Vaccine (3+ yrs) 00:00:00 [facility] Influenza High Dose 2018-11-25 Completed Unive rsity of 00:00:00 [facility] Influenza Virus 2018-11-25 Completed Universit y of Vaccine (3+ yrs) 00:00:00 [facility] Influenza High Dose 2018-11-25 Completed Unive rsity of 00:00:00 [facility] Influenza Virus 2018-11-25 Completed [facility] y of Vaccine (3+ yrs) 00:00:00 [facility] Influenza High Dose 2018-11-25 Completed Unive rsity of 00:00:00 [facility] Influenza Virus 2018-11-25 Completed [facility] y of Vaccine (3+ yrs) 00:00:00 [facility] Influenza High Dose 2018-11-25 Completed Unive rsity of 00:00:00 [facility] Influenza Virus 2018-11-25 Completed Universit y of Vaccine (3+ yrs) 00:00:00 [facility] Influenza High Dose 2018-11-25 Completed Unive rsity of 00:00:00 [facility] Influenza Virus 2018-11-25 Completed Universit y of Vaccine (3+ yrs) 00:00:00 [facility] Influenza High Dose 2018-11-25 Completed Unive rsity of 00:00:00 [facility] Influenza Virus 2018-11-25 Completed Universit y of Vaccine (3+ yrs) 00:00:00 [facility] Influenza High Dose 2018-11-25 Completed Unive rsity of 00:00:00 [facility] Influenza Virus 2018-11-25 Completed Universit y of Vaccine (3+ yrs) 00:00:00 [facility] Influenza High Dose 2018-11-25 Completed Unive rsity of 00:00:00 [facility] Influenza Virus 2018-11-25 Completed Universit y of Vaccine (3+ yrs) 00:00:00 [facility] Influenza High Dose 2018-11-25 Completed Unive rsity of 00:00:00 [facility] Influenza Virus 2018-11-25 Completed Universit y of Vaccine (3+ yrs) 00:00:00 [facility] Influenza High Dose 2018-11-25 Completed Unive rsity of 00:00:00 [facility] Influenza Virus 2018-11-25 Completed Universit y of Vaccine (3+ yrs) 00:00:00 [facility] Influenza High Dose 2018-11-25 Completed Unive rsity of 00:00:00 [facility] Influenza Virus 2018-11-25 Completed Universit y of Vaccine (3+ yrs) 00:00:00 [facility] Influenza High Dose 2018-11-25 Completed Unive rsity of 00:00:00 [facility] Influenza Virus 2018-11-25 Completed [facility] y of Vaccine (3+ yrs) 00:00:00 [facility] Influenza High Dose 2018-11-25 Completed Unive rsity of 00:00:00 [facility] Influenza Virus 2018-11-25 Completed Universit y of Vaccine (3+ yrs) 00:00:00 [facility] Influenza High Dose 2018-11-25 Completed Unive rsity of 00:00:00 [facility] Influenza Virus 2018-11-25 Completed Univers[facility] y of Vaccine (3+ yrs) 00:00:00 [facility] Influenza High Dose 2018-11-25 Completed Unive rsity of 00:00:00 [facility] Influenza Virus 2018-11-25 Completed [facility]it y of Vaccine (3+ yrs) 00:00:00 [facility] Influenza High Dose 2018-11-25 Completed Unive rsity of 00:00:00 [facility] Influenza Virus 2018-11-25 Completed Universit y of Vaccine (3+ yrs) 00:00:00 [facility] Influenza High Dose 2018-11-25 Completed Unive rsity of 00:00:00 [facility] Influenza Virus 2018-11-25 Completed Universit y of Vaccine (3+ yrs) 00:00:00 [facility] Influenza High Dose 2018-11-25 Completed Unive rsity of 00:00:00 [facility] Influenza Virus 2018-11-25 Completed Universit y of Vaccine (3+ yrs) 00:00:00 [facility] Influenza High Dose 2018-11-25 Completed Unive rsity of 00:00:00 [facility] Influenza Virus 2018-11-25 Completed Universit y of Vaccine (3+ yrs) 00:00:00 [facility] Influenza High Dose 2018-11-25 Completed Unive rsity of 00:00:00 [facility] Influenza Virus 2018-11-25 Completed Univers[facility] y of Vaccine (3+ yrs) 00:00:00 [facility] Influenza High Dose 2018-11-25 Completed Unive rsity of 00:00:00 [facility] Influenza Virus 2018-11-25 Completed Univers[facility] y of Vaccine (3+ yrs) 00:00:00 [facility] Influenza High Dose 2018-11-25 Completed [facility] 00:00:00 [facility] Influenza Virus 2018-11-25 Completed [facility] Vaccine (3+ yrs) 00:00:00 [facility] Influenza High Dose 2018-11-25 Completed [facility] of 00:00:00 [facility] Influenza Virus 2018-11-25 Completed [facility] Vaccine (3+ yrs) 00:00:00 [facility] Influenza High Dose 2018-11-25 Completed [facility] of 00:00:00 [facility] Influenza Virus 2018-11-25 Completed [facility] Vaccine (3+ yrs) 00:00:00 [facility] Influenza High Dose 2018-11-25 Completed [facility] of 00:00:00 [facility] Influenza Virus 2018-11-25 Completed [facility] Vaccine (3+ yrs) 00:00:00 [facility] Influenza High Dose 2018-11-25 Completed [facility] of 00:00:00 [facility] Influenza Virus 2018-11-25 Completed [facility] Vaccine (3+ yrs) 00:00:00 [facility] Influenza High Dose 2018-11-25 Completed [facility] of 00:00:00 [facility] Influenza Virus 2018-11-25 Completed [facility] Vaccine (3+ yrs) 00:00:00 [facility] Influenza High Dose 2018-11-25 Completed [facility] of 00:00:00 [facility] Influenza Virus 2018-11-25 Completed [facility] Vaccine (3+ yrs) 00:00:00 [facility] Influenza High Dose 2018-11-25 Completed [facility] of 00:00:00 [facility] Influenza Virus 2018-11-25 Completed [facility] Vaccine (3+ yrs) 00:00:00 [facility] Influenza High Dose 2018-11-25 Completed [facility] of 00:00:00 [facility] Influenza Virus 2018-11-25 Completed [facility] Vaccine (3+ yrs) 00:00:00 [facility] Influenza High Dose 2018-11-25 Completed [facility] of 00:00:00 [facility] Influenza Virus 2018-11-25 Completed [facility] Vaccine (3+ yrs) 00:00:00 [facility] Influenza High Dose 2018-11-25 Completed [facility] of 00:00:00 [facility] Influenza Virus 2018-11-25 Completed [facility] Vaccine (3+ yrs) 00:00:00 [facility] Influenza High Dose 2018-11-25 Completed [facility] of 00:00:00 [facility] Influenza Virus 2018-11-25 Completed [facility] Vaccine (3+ yrs) 00:00:00 [facility] Influenza High Dose 2018-11-25 Completed [facility] of 00:00:00 [facility] Influenza Virus 2018-11-25 Completed [facility] Vaccine (3+ yrs) 00:00:00 [facility] Influenza High Dose 2018-11-25 Completed [facility] 00:00:00 [facility] Influenza Virus 2018-11-25 Completed [facility] Vaccine (3+ yrs) 00:00:00 [facility] Influenza High Dose 2018-11-25 Completed [facility] of 00:00:00 [facility] Influenza Virus 2018-11-25 Completed [facility] Vaccine (3+ yrs) 00:00:00 [facility] Influenza High Dose 2018-11-25 Completed [facility] of 00:00:00 [facility] Influenza Virus 2018-11-25 Completed [facility] Vaccine (3+ yrs) 00:00:00 [facility] Influenza High Dose 2018-11-25 Completed [facility] of 00:00:00 [facility] Influenza Virus 2018-11-25 Completed [facility] Vaccine (3+ yrs) 00:00:00 [facility] Influenza High Dose 2018-11-25 Completed [facility] 00:00:00 [facility] Influenza Virus 2018-11-25 Completed [facility] Vaccine (3+ yrs) 00:00:00 [facility] Influenza High Dose 2018-11-25 Completed [facility] of 00:00:00 [facility] Influenza Virus 2018-11-25 Completed [facility] Vaccine (3+ yrs) 00:00:00 [facility] Influenza High Dose 2018-11-25 Completed [facility] 00:00:00 [facility] Influenza Virus 2018-11-25 Completed [facility] Vaccine (3+ yrs) 00:00:00 [facility] Influenza High Dose 2018-11-25 Completed [facility] of 00:00:00 [facility] Influenza Virus 2018-11-25 Completed [facility] Vaccine (3+ yrs) 00:00:00 [facility] Influenza High Dose 2018-11-25 Completed [facility] 00:00:00 [facility] Influenza Virus 2018-11-25 Completed [facility] Vaccine (3+ yrs) 00:00:00 [facility] Influenza High Dose 2018-11-25 Completed [facility] 00:00:00 [facility] Influenza Virus 2018-11-25 Completed [facility] Vaccine (3+ yrs) 00:00:00 [facility] Influenza High Dose 2018-11-25 Completed [facility] of 00:00:00 [facility] Influenza Virus 2018-11-25 Completed [facility] Vaccine (3+ yrs) 00:00:00 [facility] Influenza High Dose 2018-11-25 Completed [facility] of 00:00:00 [facility] Influenza Virus 2018-11-25 Completed [facility] Vaccine (3+ yrs) 00:00:00 [facility] Influenza High Dose 2018-11-25 Completed [facility] 00:00:00 [facility] Influenza Virus 2018-11-25 Completed [facility] Vaccine (3+ yrs) 00:00:00 [facility] Influenza High Dose 2018-11-25 Completed [facility] 00:00:00 [facility] Influenza Virus 2018-11-25 Completed [facility] Vaccine (3+ yrs) 00:00:00 [facility] Influenza High Dose 2018-11-25 Completed [facility] 00:00:00 [facility] Influenza Virus 2018-11-25 Completed [facility] Vaccine (3+ yrs) 00:00:00 [facility] Influenza High Dose 2018-11-25 Completed [facility] 00:00:00 [facility] Influenza Virus 2018-11-25 Completed [facility] Vaccine (3+ yrs) 00:00:00 [facility] Influenza High Dose 2018-11-25 Completed [facility] 00:00:00 [facility] Influenza Virus 2018-11-25 Completed [facility] Vaccine (3+ yrs) 00:00:00 [facility] Influenza High Dose 2018-11-25 Completed [facility] 00:00:00 [facility] Influenza Virus 2018-11-25 Completed [facility] Vaccine (3+ yrs) 00:00:00 [facility] Influenza High Dose 2018-11-25 Completed [facility] 00:00:00 [facility] Influenza Virus 2018-11-25 Completed [facility] Vaccine (3+ yrs) 00:00:00 [facility] Influenza High Dose 2018-11-25 Completed [facility] 00:00:00 [facility] Influenza Virus 2018-11-25 Completed [facility] Vaccine (3+ yrs) 00:00:00 [facility] Influenza High Dose 2018-11-25 Completed [facility] 00:00:00 [facility] Influenza Virus 2018-11-25 Completed [facility] Vaccine (3+ yrs) 00:00:00 [facility] Influenza High Dose 2018-11-25 Completed [facility] 00:00:00 [facility] Influenza Virus 2018-11-25 Completed [facility] Vaccine (3+ yrs) 00:00:00 [facility] Influenza High Dose 2018-11-25 Completed [facility] 00:00:00 [facility] Influenza Virus 2018-11-25 Completed [facility] Vaccine (3+ yrs) 00:00:00 [facility] Influenza High Dose 2018-11-25 Completed [facility] 00:00:00 [facility] Influenza Virus 2018-11-25 Completed [facility] Vaccine (3+ yrs) 00:00:00 [facility] Influenza High Dose 2018-11-25 Completed [facility] 00:00:00 [facility] Influenza Virus 2018-11-25 Completed [facility] Vaccine (3+ yrs) 00:00:00 [facility] Influenza High Dose 2018-11-25 Completed [facility] 00:00:00 [facility] Influenza Virus 2018-11-25 Completed [facility] Vaccine (3+ yrs) 00:00:00 [facility] Influenza High Dose 2018-11-25 Completed [facility] 00:00:00 [facility] Influenza Virus 2018-11-25 Completed [facility] Vaccine (3+ yrs) 00:00:00 [facility] Influenza High Dose 2018-11-25 Completed [facility] 00:00:00 [facility] Influenza Virus 2018-11-25 Completed [facility] Vaccine (3+ yrs) 00:00:00 [facility] Influenza High Dose 2018-11-25 Completed [facility] 00:00:00 [facility] Influenza Virus 2018-11-25 Completed [facility] Vaccine (3+ yrs) 00:00:00 [facility] Influenza High Dose 2018-11-25 Completed [facility] 00:00:00 [facility] Influenza Virus 2018-11-25 Completed [facility] Vaccine (3+ yrs) 00:00:00 [facility] Influenza High Dose 2018-11-25 Completed [facility] 00:00:00 [facility] Influenza Virus 2018-11-25 Completed [facility] Vaccine (3+ yrs) 00:00:00 [facility] Influenza High Dose 2018-11-25 Completed [facility] 00:00:00 [facility] Influenza Virus 2018-11-25 Completed [facility] Vaccine (3+ yrs) 00:00:00 [facility] Influenza High Dose 2018-11-25 Completed [facility] 00:00:00 [facility] Influenza Virus 2018-11-25 Completed [facility] Vaccine (3+ yrs) 00:00:00 [facility] Influenza High Dose 2018-11-25 Completed [facility] 00:00:00 [facility] Influenza Virus 2018-11-25 Completed [facility] of Vaccine (3+ yrs) 00:00:00 [facility] Influenza High Dose 2018-11-25 Completed [facility] 00:00:00 [facility] Influenza Virus 2018-11-25 Completed [facility] Vaccine (3+ yrs) 00:00:00 [facility] Influenza High Dose 2018-11-25 Completed [facility] 00:00:00 [facility] Influenza Virus 2018-11-25 Completed [facility] Vaccine (3+ yrs) 00:00:00 [facility] Influenza High Dose 2018-11-25 Completed [facility] 00:00:00 [facility] Influenza Virus 2018-11-25 Completed [facility] Vaccine (3+ yrs) 00:00:00 [facility] Influenza High Dose 2018-11-25 Completed [facility] 00:00:00 [facility] Influenza Virus 2018-11-25 Completed [facility] Vaccine (3+ yrs) 00:00:00 [facility] Influenza High Dose 2018-11-25 Completed [facility] 00:00:00 [facility] Influenza Virus 2018-11-25 Completed [facility] Vaccine (3+ yrs) 00:00:00 [facility] Influenza High Dose 2018-11-25 Completed [facility] 00:00:00 [facility] Influenza Virus 2018-11-25 Completed [facility] Vaccine (3+ yrs) 00:00:00 [facility] Influenza High Dose 2018-11-25 Completed [facility] 00:00:00 [facility] Influenza Virus 2018-11-25 Completed [facility] Vaccine (3+ yrs) 00:00:00 [facility] Influenza High Dose 2018-11-25 Completed [facility] 00:00:00 [facility] Influenza Virus 2018-11-22 Completed [facility] Vaccine (3+ yrs) 00:00:00 [facility] Influenza Virus 2018-11-22 Completed [facility] of Vaccine (3+ yrs) 00:00:00 [facility] Influenza Virus 2018-11-22 Completed [facility] of Vaccine (3+ yrs) 00:00:00 [facility] Influenza Virus 2018-11-22 Completed [facility] Vaccine (3+ yrs) 00:00:00 [facility] Influenza Virus 2018-11-22 Completed [facility] of Vaccine (3+ yrs) 00:00:00 [facility] Influenza Virus 2018-11-22 Completed [facility] of Vaccine (3+ yrs) 00:00:00 [facility] Influenza Virus 2018-11-22 Completed [facility] of Vaccine (3+ yrs) 00:00:00 [facility] Influenza Virus 2018-11-22 Completed [facility] of Vaccine (3+ yrs) 00:00:00 [facility] Influenza Virus 2018-11-22 Completed [facility] Vaccine (3+ yrs) 00:00:00 [facility] Influenza Virus 2018-11-22 Completed [facility] of Vaccine (3+ yrs) 00:00:00 [facility] Influenza Virus 2018-11-22 Completed [facility] of Vaccine (3+ yrs) 00:00:00 [facility] Influenza Virus 2018-11-22 Completed [facility] of Vaccine (3+ yrs) 00:00:00 [facility] Influenza Virus 2018-11-22 Completed [facility] of Vaccine (3+ yrs) 00:00:00 [facility] Influenza Virus 2018-11-22 Completed [facility] of Vaccine (3+ yrs) 00:00:00 [facility] Influenza Virus 2018-11-22 Completed [facility] of Vaccine (3+ yrs) 00:00:00 [facility] Influenza Virus 2018-11-22 Completed [facility] of Vaccine (3+ yrs) 00:00:00 [facility] Influenza Virus 2018-11-22 Completed [facility] of Vaccine (3+ yrs) 00:00:00 [facility] Influenza Virus 2018-11-22 Completed [facility] of Vaccine (3+ yrs) 00:00:00 [facility] Influenza Virus 2018-11-22 Completed [facility] of Vaccine (3+ yrs) 00:00:00 [facility] Influenza Virus 2018-11-22 Completed [facility] of Vaccine (3+ yrs) 00:00:00 [facility] Influenza Virus 2018-11-22 Completed [facility] of Vaccine (3+ yrs) 00:00:00 [facility] Influenza Virus 2018-11-22 Completed [facility] of Vaccine (3+ yrs) 00:00:00 [facility] Influenza Virus 2018-11-22 Completed [facility] of Vaccine (3+ yrs) 00:00:00 [facility] Influenza Virus 2018-11-22 Completed [facility] of Vaccine (3+ yrs) 00:00:00 [facility] Influenza Virus 2018-11-22 Completed [facility] of Vaccine (3+ yrs) 00:00:00 [facility] Influenza Virus 2018-11-22 Completed [facility] of Vaccine (3+ yrs) 00:00:00 [facility] Influenza Virus 2018-11-22 Completed [facility] of Vaccine (3+ yrs) 00:00:00 [facility] Influenza Virus 2018-11-22 Completed [facility] of Vaccine (3+ yrs) 00:00:00 [facility] Influenza Virus 2018-11-22 Completed [facility] of Vaccine (3+ yrs) 00:00:00 [facility] Influenza Virus 2018-11-22 Completed [facility] of Vaccine (3+ yrs) 00:00:00 [facility] Influenza Virus 2018-11-22 Completed [facility] Vaccine (3+ yrs) 00:00:00 [facility] Influenza Virus 2018-11-22 Completed [facility] of Vaccine (3+ yrs) 00:00:00 [facility] Influenza Virus 2018-11-22 Completed [facility] of Vaccine (3+ yrs) 00:00:00 [facility] Influenza Virus 2018-11-22 Completed [facility] of Vaccine (3+ yrs) 00:00:00 [facility] Influenza Virus 2018-11-22 Completed [facility] of Vaccine (3+ yrs) 00:00:00 [facility] Influenza Virus 2018-11-22 Completed [facility] Vaccine (3+ yrs) 00:00:00 [facility] Influenza Virus 2018-11-22 Completed [facility] of Vaccine (3+ yrs) 00:00:00 [facility] Influenza Virus 2018-11-22 Completed [facility] of Vaccine (3+ yrs) 00:00:00 [facility] Influenza Virus 2018-11-22 Completed [facility] of Vaccine (3+ yrs) 00:00:00 [facility] Influenza Virus 2018-11-22 Completed [facility] of Vaccine (3+ yrs) 00:00:00 [facility] Influenza Virus 2018-11-22 Completed [facility] Vaccine (3+ yrs) 00:00:00 [facility] Influenza Virus 2018-11-22 Completed [facility] Vaccine (3+ yrs) 00:00:00 [facility] Influenza Virus 2018-11-22 Completed [facility] Vaccine (3+ yrs) 00:00:00 [facility] Influenza Virus 2018-11-22 Completed [facility] of Vaccine (3+ yrs) 00:00:00 [facility] Influenza Virus 2018-11-22 Completed [facility] of Vaccine (3+ yrs) 00:00:00 [facility] Influenza Virus 2018-11-22 Completed [facility] Vaccine (3+ yrs) 00:00:00 [facility] Influenza Virus 2018-11-22 Completed [facility] of Vaccine (3+ yrs) 00:00:00 [facility] Influenza Virus 2018-11-22 Completed [facility] of Vaccine (3+ yrs) 00:00:00 [facility] Influenza Virus 2018-11-22 Completed [facility] of Vaccine (3+ yrs) 00:00:00 [facility] Influenza Virus 2018-11-22 Completed [facility] of Vaccine (3+ yrs) 00:00:00 [facility] Influenza Virus 2018-11-22 Completed [facility] of Vaccine (3+ yrs) 00:00:00 [facility] Influenza Virus 2018-11-22 Completed [facility] of Vaccine (3+ yrs) 00:00:00 [facility] Influenza Virus 2018-11-22 Completed [facility] of Vaccine (3+ yrs) 00:00:00 [facility] Influenza Virus 2018-11-22 Completed [facility] of Vaccine (3+ yrs) 00:00:00 [facility] Influenza Virus 2018-11-22 Completed [facility] of Vaccine (3+ yrs) 00:00:00 [facility] Influenza Virus 2018-11-22 Completed [facility] Vaccine (3+ yrs) 00:00:00 [facility] Influenza Virus 2018-11-22 Completed [facility] of Vaccine (3+ yrs) 00:00:00 [facility] Influenza Virus 2018-11-22 Completed [facility] of Vaccine (3+ yrs) 00:00:00 [facility] Influenza Virus 2018-11-22 Completed [facility] of Vaccine (3+ yrs) 00:00:00 [facility] Influenza Virus 2018-11-22 Completed [facility] of Vaccine (3+ yrs) 00:00:00 [facility] Influenza Virus 2018-11-22 Completed [facility] of Vaccine (3+ yrs) 00:00:00 [facility] Influenza Virus 2018-11-22 Completed [facility] of Vaccine (3+ yrs) 00:00:00 [facility] Influenza Virus 2018-11-22 Completed [facility] of Vaccine (3+ yrs) 00:00:00 [facility] Influenza Virus 2018-11-22 Completed [facility] of Vaccine (3+ yrs) 00:00:00 [facility] Influenza Virus 2018-11-22 Completed [facility] Vaccine (3+ yrs) 00:00:00 [facility] Influenza Virus 2018-11-22 Completed [facility] of Vaccine (3+ yrs) 00:00:00 [facility] Influenza Virus 2018-11-22 Completed [facility] of Vaccine (3+ yrs) 00:00:00 [facility] Influenza Virus 2018-11-22 Completed [facility] of Vaccine (3+ yrs) 00:00:00 [facility] Influenza Virus 2018-11-22 Completed [facility] of Vaccine (3+ yrs) 00:00:00 [facility] Influenza Virus 2018-11-22 Completed [facility] of Vaccine (3+ yrs) 00:00:00 [facility] Influenza Virus 2018-11-22 Completed [facility] Vaccine (3+ yrs) 00:00:00 [facility] Influenza Virus 2018-11-22 Completed [facility] of Vaccine (3+ yrs) 00:00:00 [facility] Influenza Virus 2018-11-22 Completed [facility] Vaccine (3+ yrs) 00:00:00 [facility] Influenza Virus 2018-11-22 Completed [facility] of Vaccine (3+ yrs) 00:00:00 [facility] Influenza Virus 2018-11-22 Completed [facility] of Vaccine (3+ yrs) 00:00:00 [facility] Influenza Virus 2018-11-22 Completed [facility] of Vaccine (3+ yrs) 00:00:00 [facility] Influenza Virus 2018-11-22 Completed [facility] of Vaccine (3+ yrs) 00:00:00 [facility] Influenza Virus 2018-11-22 Completed [facility] Vaccine (3+ yrs) 00:00:00 [facility] Influenza Virus 2018-11-22 Completed [facility] of Vaccine (3+ yrs) 00:00:00 [facility] Twinrix (hep a/hep 2018-05-23 Completed [facility] of b) 00:00:00 [facility] Pneumococcal 13 2018-05-23 Completed [facility] of Conjugate, PCV13 00:00:00 [facility] (Prevnar 13) Branch Twinrix (hep a/hep 2018-05-23 Completed [facility]iver [facility] of b) 00:00:00 [facility] Pneumococcal 13 2018-05-23 Completed [facility] of Conjugate, PCV13 00:00:00 [facility] dicme (Prevnar 13) Branch Twinrix (hep a/hep 2018-05-23 Completed [facility]iver [facility] of b) 00:00:00 [facility] Pneumococcal 13 2018-05-23 Completed [facility] Conjugate, PCV13 00:00:00 [facility] (Prevnar 13) [facility] Twinrix (hep a/hep 2018-05-23 Completed [facility] of b) 00:00:00 [facility] Pneumococcal 13 2018-05-23 Completed [facility] Conjugate, PCV13 00:00:00 [facility] (Prevnar 13) [facility] Twinrix (hep a/hep 2018-05-23 Completed [facility] of b) 00:00:00 [facility] Pneumococcal 13 2018-05-23 Completed [facility] Conjugate, PCV13 00:00:00 [facility] (Prevnar 13) [facility] Twinrix (hep a/hep 2018-05-23 Completed [facility] of b) 00:00:00 [facility] Pneumococcal 13 2018-05-23 Completed [facility] Conjugate, PCV13 00:00:00 [facility] (Prevnar 13) [facility] Twinrix (hep a/hep 2018-05-23 Completed [facility] of b) 00:00:00 [facility] Pneumococcal 13 2018-05-23 Completed [facility] Conjugate, PCV13 00:00:00 [facility] (Prevnar 13) [facility] Twinrix (hep a/hep 2018-05-23 Completed [facility] of b) 00:00:00 [facility] Pneumococcal 13 2018-05-23 Completed [facility] Conjugate, PCV13 00:00:00 [facility] (Prevnar 13) [facility] Twinrix (hep a/hep 2018-05-23 Completed [facility] b) 00:00:00 [facility] Pneumococcal 13 2018-05-23 Completed [facility] Conjugate, PCV13 00:00:00 [facility] (Prevnar 13) [facility] Twinrix (hep a/hep 2018-05-23 Completed [facility] of b) 00:00:00 [facility] Pneumococcal 13 2018-05-23 Completed [facility] Conjugate, PCV13 00:00:00 [facility] (Prevnar 13) [facility] Twinrix (hep a/hep 2018-05-23 Completed [facility] b) 00:00:00 [facility] Pneumococcal 13 2018-05-23 Completed [facility] Conjugate, PCV13 00:00:00 [facility] (Prevnar 13) [facility] Twinrix (hep a/hep 2018-05-23 Completed [facility] b) 00:00:00 [facility] Pneumococcal 13 2018-05-23 Completed [facility] Conjugate, PCV13 00:00:00 [facility] (Prevnar 13) [facility] Twinrix (hep a/hep 2018-05-23 Completed [facility] of b) 00:00:00 [facility] Pneumococcal 13 2018-05-23 Completed [facility] Conjugate, PCV13 00:00:00 [facility] (Prevnar 13) Branch Twinrix (hep a/hep 2018-05-23 Completed [facility] of b) 00:00:00 [facility] Pneumococcal 13 2018-05-23 Completed [facility] Conjugate, PCV13 00:00:00 [facility] dical (Prevnar 13) Branch Twinrix (hep a/hep 2018-05-23 Completed [facility] of b) 00:00:00 [facility] Pneumococcal 13 2018-05-23 Completed [facility] Conjugate, PCV13 00:00:00 [facility] dical (Prevnar 13) Branch Twinrix (hep a/hep 2018-05-23 Completed [facility] of b) 00:00:00 [facility] Pneumococcal 13 2018-05-23 Completed [facility] Conjugate, PCV13 00:00:00 [facility] (Prevnar 13) [facility] Twinrix (hep a/hep 2018-05-23 Completed [facility] b) 00:00:00 [facility] Pneumococcal 13 2018-05-23 Completed [facility] Conjugate, PCV13 00:00:00 [facility] (Prevnar 13) [facility] Twinrix (hep a/hep 2018-05-23 Completed [facility] b) 00:00:00 [facility] Pneumococcal 13 2018-05-23 Completed [facility] Conjugate, PCV13 00:00:00 [facility] (Prevnar 13) [facility] Twinrix (hep a/hep 2018-05-23 Completed [facility] b) 00:00:00 [facility] Pneumococcal 13 2018-05-23 Completed [facility] Conjugate, PCV13 00:00:00 [facility] (Prevnar 13) [facility] Twinrix (hep a/hep 2018-05-23 Completed [facility] b) 00:00:00 [facility] Pneumococcal 13 2018-05-23 Completed [facility] Conjugate, PCV13 00:00:00 [facility] (Prevnar 13) [facility] Twinrix (hep a/hep 2018-05-23 Completed [facility] b) 00:00:00 [facility] Pneumococcal 13 2018-05-23 Completed [facility] Conjugate, PCV13 00:00:00 [facility] (Prevnar 13) [facility] Twinrix (hep a/hep 2018-05-23 Completed [facility] b) 00:00:00 [facility] Pneumococcal 13 2018-05-23 Completed [facility] Conjugate, PCV13 00:00:00 [facility] (Prevnar 13) [facility] Twinrix (hep a/hep 2018-05-23 Completed [facility] b) 00:00:00 [facility] Pneumococcal 13 2018-05-23 Completed [facility] Conjugate, PCV13 00:00:00 [facility] (Prevnar 13) [facility] Twinrix (hep a/hep 2018-05-23 Completed [facility] b) 00:00:00 [facility] Pneumococcal 13 2018-05-23 Completed [facility] Conjugate, PCV13 00:00:00 [facility] (Prevnar 13) [facility] Twinrix (hep a/hep 2018-05-23 Completed [facility] b) 00:00:00 [facility] Pneumococcal 13 2018-05-23 Completed [facility] Conjugate, PCV13 00:00:00 [facility] (Prevnar 13) [facility] Twinrix (hep a/hep 2018-05-23 Completed [facility] b) 00:00:00 [facility] Pneumococcal 13 2018-05-23 Completed [facility] Conjugate, PCV13 00:00:00 [facility] (Prevnar 13) [facility] Twinrix (hep a/hep 2018-05-23 Completed [facility] b) 00:00:00 [facility] Pneumococcal 13 2018-05-23 Completed [facility] Conjugate, PCV13 00:00:00 [facility] (Prevnar 13) [facility] Twinrix (hep a/hep 2018-05-23 Completed [facility] b) 00:00:00 [facility] Pneumococcal 13 2018-05-23 Completed [facility] Conjugate, PCV13 00:00:00 [facility] (Prevnar 13) [facility] Twinrix (hep a/hep 2018-05-23 Completed [facility] b) 00:00:00 [facility] Pneumococcal 13 2018-05-23 Completed [facility] Conjugate, PCV13 00:00:00 [facility] (Prevnar 13) [facility] Twinrix (hep a/hep 2018-05-23 Completed [facility] b) 00:00:00 [facility] Pneumococcal 13 2018-05-23 Completed [facility] Conjugate, PCV13 00:00:00 [facility] (Prevnar 13) [facility] Twinrix (hep a/hep 2018-05-23 Completed [facility] b) 00:00:00 [facility] Pneumococcal 13 2018-05-23 Completed [facility] Conjugate, PCV13 00:00:00 [facility] (Prevnar 13) [facility] Twinrix (hep a/hep 2018-05-23 Completed [facility] b) 00:00:00 [facility] Pneumococcal 13 2018-05-23 Completed [facility] Conjugate, PCV13 00:00:00 [facility] (Prevnar 13) [facility] Twinrix (hep a/hep 2018-05-23 Completed [facility] b) 00:00:00 [facility] Pneumococcal 13 2018-05-23 Completed [facility] Conjugate, PCV13 00:00:00 [facility] (Prevnar 13) [facility] Twinrix (hep a/hep 2018-05-23 Completed [facility] b) 00:00:00 [facility] Pneumococcal 13 2018-05-23 Completed [facility] Conjugate, PCV13 00:00:00 [facility] (Prevnar 13) [facility] Twinrix (hep a/hep 2018-05-23 Completed [facility] b) 00:00:00 [facility] Pneumococcal 13 2018-05-23 Completed [facility] Conjugate, PCV13 00:00:00 [facility] (Prevnar 13) [facility] Twinrix (hep a/hep 2018-05-23 Completed [facility] b) 00:00:00 [facility] Pneumococcal 13 2018-05-23 Completed [facility] Conjugate, PCV13 00:00:00 [facility] (Prevnar 13) [facility] Twinrix (hep a/hep 2018-05-23 Completed [facility] b) 00:00:00 [facility] Pneumococcal 13 2018-05-23 Completed [facility] Conjugate, PCV13 00:00:00 [facility] (Prevnar 13) [facility] Twinrix (hep a/hep 2018-05-23 Completed [facility] b) 00:00:00 [facility] Pneumococcal 13 2018-05-23 Completed [facility] Conjugate, PCV13 00:00:00 [facility] (Prevnar 13) [facility] Twinrix (hep a/hep 2018-05-23 Completed [facility] of b) 00:00:00 [facility] Pneumococcal 13 2018-05-23 Completed [facility] Conjugate, PCV13 00:00:00 [facility] dical (Prevnar 13) Branch Twinrix (hep a/hep 2018-05-23 Completed [facility] of b) 00:00:00 [facility] Pneumococcal 13 2018-05-23 Completed [facility] Conjugate, PCV13 00:00:00 [facility] dical (Prevnar 13) Branch Twinrix (hep a/hep 2018-05-23 Completed [facility] of b) 00:00:00 [facility] Pneumococcal 13 2018-05-23 Completed [facility] Conjugate, PCV13 00:00:00 [facility] (Prevnar 13) [facility] Twinrix (hep a/hep 2018-05-23 Completed [facility] b) 00:00:00 [facility] Pneumococcal 13 2018-05-23 Completed [facility] Conjugate, PCV13 00:00:00 [facility] (Prevnar 13) [facility] Twinrix (hep a/hep 2018-05-23 Completed [facility] b) 00:00:00 [facility] Pneumococcal 13 2018-05-23 Completed [facility] Conjugate, PCV13 00:00:00 [facility] (Prevnar 13) [facility] Twinrix (hep a/hep 2018-05-23 Completed [facility] b) 00:00:00 [facility] Pneumococcal 13 2018-05-23 Completed [facility] Conjugate, PCV13 00:00:00 [facility] (Prevnar 13) [facility] Twinrix (hep a/hep 2018-05-23 Completed [facility] b) 00:00:00 [facility] Pneumococcal 13 2018-05-23 Completed [facility] Conjugate, PCV13 00:00:00 [facility] (Prevnar 13) [facility] Twinrix (hep a/hep 2018-05-23 Completed [facility] b) 00:00:00 [facility] Pneumococcal 13 2018-05-23 Completed [facility] Conjugate, PCV13 00:00:00 [facility] (Prevnar 13) [facility] Twinrix (hep a/hep 2018-05-23 Completed [facility] b) 00:00:00 [facility] Pneumococcal 13 2018-05-23 Completed [facility] Conjugate, PCV13 00:00:00 [facility] (Prevnar 13) Branch Twinrix (hep a/hep 2018-05-23 Completed [facility] b) 00:00:00 [facility] Pneumococcal 13 2018-05-23 Completed [facility] Conjugate, PCV13 00:00:00 [facility] (Prevnar 13) [facility] Twinrix (hep a/hep 2018-05-23 Completed [facility] b) 00:00:00 [facility] Pneumococcal 13 2018-05-23 Completed [facility] Conjugate, PCV13 00:00:00 [facility] (Prevnar 13) Branch Twinrix (hep a/hep 2018-05-23 Completed [facility] of b) 00:00:00 [facility] Pneumococcal 13 2018-05-23 Completed [facility] Conjugate, PCV13 00:00:00 [facility] (Prevnar 13) [facility] Twinrix (hep a/hep 2018-05-23 Completed [facility] b) 00:00:00 [facility] Pneumococcal 13 2018-05-23 Completed [facility] Conjugate, PCV13 00:00:00 [facility] (Prevnar 13) [facility] Twinrix (hep a/hep 2018-05-23 Completed [facility] b) 00:00:00 [facility] Pneumococcal 13 2018-05-23 Completed [facility] Conjugate, PCV13 00:00:00 [facility] (Prevnar 13) Branch Twinrix (hep a/hep 2018-05-23 Completed [facility] b) 00:00:00 [facility] Pneumococcal 13 2018-05-23 Completed [facility] Conjugate, PCV13 00:00:00 [facility] (Prevnar 13) [facility] Twinrix (hep a/hep 2018-05-23 Completed [facility] b) 00:00:00 [facility] Pneumococcal 13 2018-05-23 Completed [facility] of Conjugate, PCV13 00:00:00 [facility] (Prevnar 13) Branch Twinrix (hep a/hep 2018-05-23 Completed [facility] b) 00:00:00 [facility] Pneumococcal 13 2018-05-23 Completed [facility] Conjugate, PCV13 00:00:00 [facility] (Prevnar 13) Branch Twinrix (hep a/hep 2018-05-23 Completed [facility] b) 00:00:00 [facility] Pneumococcal 13 2018-05-23 Completed [facility] of Conjugate, PCV13 00:00:00 [facility] (Prevnar 13) [facility] Twinrix (hep a/hep 2018-05-23 Completed [facility] of b) 00:00:00 [facility] Pneumococcal 13 2018-05-23 Completed [facility] Conjugate, PCV13 00:00:00 [facility] (Prevnar 13) Branch Twinrix (hep a/hep 2018-05-23 Completed [facility] of b) 00:00:00 [facility] Pneumococcal 13 2018-05-23 Completed [facility] of Conjugate, PCV13 00:00:00 [facility] (Prevnar 13) Branch Twinrix (hep a/hep 2018-05-23 Completed [facility] of b) 00:00:00 [facility] Pneumococcal 13 2018-05-23 Completed [facility] of Conjugate, PCV13 00:00:00 [facility] (Prevnar 13) Branch Twinrix (hep a/hep 2018-05-23 Completed [facility] of b) 00:00:00 [facility] Pneumococcal 13 2018-05-23 Completed [facility] of Conjugate, PCV13 00:00:00 [facility] (Prevnar 13) Branch Twinrix (hep a/hep 2018-05-23 Completed [facility] b) 00:00:00 [facility] Pneumococcal 13 2018-05-23 Completed [facility] Conjugate, PCV13 00:00:00 [facility] (Prevnar 13) Branch Twinrix (hep a/hep 2018-05-23 Completed [facility] of b) 00:00:00 [facility] Pneumococcal 13 2018-05-23 Completed [facility] of Conjugate, PCV13 00:00:00 [facility] (Prevnar 13) Branch Twinrix (hep a/hep 2018-05-23 Completed [facility] of b) 00:00:00 [facility] Pneumococcal 13 2018-05-23 Completed [facility] of Conjugate, PCV13 00:00:00 [facility] (Prevnar 13) Branch Twinrix (hep a/hep 2018-05-23 Completed [facility] of b) 00:00:00 [facility] Pneumococcal 13 2018-05-23 Completed [facility] of Conjugate, PCV13 00:00:00 [facility] dical (Prevnar 13) Branch Twinrix (hep a/hep 2018-05-23 Completed [facility]iver [facility]ity of b) 00:00:00 [facility] Pneumococcal 13 2018-05-23 Completed [facility] of Conjugate, PCV13 00:00:00 [facility] dical (Prevnar 13) Branch Twinrix (hep a/hep 2018-05-23 Completed [facility]ity of b) 00:00:00 [facility] Pneumococcal 13 2018-05-23 Completed [facility] of Conjugate, PCV13 00:00:00 [facility] (Prevnar 13) [facility] Twinrix (hep a/hep 2018-05-23 Completed [facility] of b) 00:00:00 [facility] Pneumococcal 13 2018-05-23 Completed [facility] of Conjugate, PCV13 00:00:00 [facility] (Prevnar 13) [facility] Twinrix (hep a/hep 2018-05-23 Completed [facility] of b) 00:00:00 [facility] Pneumococcal 13 2018-05-23 Completed [facility] of Conjugate, PCV13 00:00:00 [facility] (Prevnar 13) Branch Twinrix (hep a/hep 2018-05-23 Completed [facility] of b) 00:00:00 [facility] Pneumococcal 13 2018-05-23 Completed [facility] of Conjugate, PCV13 00:00:00 [facility] (Prevnar 13) [facility] Twinrix (hep a/hep 2018-05-23 Completed [facility] of b) 00:00:00 [facility] Pneumococcal 13 2018-05-23 Completed [facility] of Conjugate, PCV13 00:00:00 [facility] (Prevnar 13) Branch Twinrix (hep a/hep 2018-05-23 Completed [facility] of b) 00:00:00 [facility] Pneumococcal 13 2018-05-23 Completed [facility] of Conjugate, PCV13 00:00:00 [facility] (Prevnar 13) Branch Twinrix (hep a/hep 2018-05-23 Completed [facility] of b) 00:00:00 [facility] Pneumococcal 13 2018-05-23 Completed [facility] of Conjugate, PCV13 00:00:00 [facility] (Prevnar 13) Branch Twinrix (hep a/hep 2018-05-23 Completed [facility] of b) 00:00:00 [facility] Pneumococcal 13 2018-05-23 Completed [facility] of Conjugate, PCV13 00:00:00 [facility] (Prevnar 13) Branch Twinrix (hep a/hep 2018-05-23 Completed [facility] of b) 00:00:00 [facility] Pneumococcal 13 2018-05-23 Completed [facility] of Conjugate, PCV13 00:00:00 [facility] (Prevnar 13) Branch Twinrix (hep a/hep 2018-05-23 Completed [facility] of b) 00:00:00 [facility] Pneumococcal 13 2018-05-23 Completed [facility] Conjugate, PCV13 00:00:00 [facility] (Prevnar 13) [facility] Twinrix (hep a/hep 2018-05-23 Completed [facility] of b) 00:00:00 [facility] Pneumococcal 13 2018-05-23 Completed [facility] of Conjugate, PCV13 00:00:00 [facility] (Prevnar 13) Branch Twinrix (hep a/hep 2018-05-23 Completed [facility] of b) 00:00:00 [facility] Pneumococcal 13 2018-05-23 Completed [facility] of Conjugate, PCV13 00:00:00 [facility] (Prevnar 13) Branch Twinrix (hep a/hep 2018-05-23 Completed [facility] of b) 00:00:00 [facility] Pneumococcal 13 2018-05-23 Completed [facility] of Conjugate, PCV13 00:00:00 [facility] (Prevnar 13) [place] Twinrix (hep a/hep 2018-05-23 Completed Univer [facility]ity of b) 00:00:00 [facility] Pneumococcal 13 2018-05-23 Completed [facility] of Conjugate, PCV13 00:00:00 [facility] (Prevnar 13) Branch Influenza Virus 2016-11-10 Completed [facility] y of Vaccine (3+ yrs) 00:00:00 [facility] Influenza Virus 2016-11-10 Completed [facility]it y of Vaccine (3+ yrs) 00:00:00 [facility] Influenza Virus 2016-11-10 Completed [facility] y of Vaccine (3+ yrs) 00:00:00 [facility] Influenza Virus 2016-11-10 Completed [facility] of Vaccine (3+ yrs) 00:00:00 [facility] Influenza Virus 2016-11-10 Completed [facility] y of Vaccine (3+ yrs) 00:00:00 [facility] Influenza Virus 2016-11-10 Completed [facility] y of Vaccine (3+ yrs) 00:00:00 [facility] Influenza Virus 2016-11-10 Completed [facility] y of Vaccine (3+ yrs) 00:00:00 [facility] Influenza Virus 2016-11-10 Completed [facility] y of Vaccine (3+ yrs) 00:00:00 [facility] Influenza Virus 2016-11-10 Completed [facility] y of Vaccine (3+ yrs) 00:00:00 [facility] Influenza Virus 2016-11-10 Completed [facility] y of Vaccine (3+ yrs) 00:00:00 [facility] Influenza Virus 2016-11-10 Completed [facility] y of Vaccine (3+ yrs) 00:00:00 [facility] Influenza Virus 2016-11-10 Completed [facility] y of Vaccine (3+ yrs) 00:00:00 [facility] Influenza Virus 2016-11-10 Completed [facility] y of Vaccine (3+ yrs) 00:00:00 [facility] Influenza Virus 2016-11-10 Completed [facility] y of Vaccine (3+ yrs) 00:00:00 [facility] Influenza Virus 2016-11-10 Completed [facility] y of Vaccine (3+ yrs) 00:00:00 [facility] Influenza Virus 2016-11-10 Completed [facility] y of Vaccine (3+ yrs) 00:00:00 [facility] Influenza Virus 2016-11-10 Completed [facility] y of Vaccine (3+ yrs) 00:00:00 [facility] Influenza Virus 2016-11-10 Completed [facility] y of Vaccine (3+ yrs) 00:00:00 [facility] Influenza Virus 2016-11-10 Completed [facility] y of Vaccine (3+ yrs) 00:00:00 [facility] Influenza Virus 2016-11-10 Completed [facility] y of Vaccine (3+ yrs) 00:00:00 [facility] Influenza Virus 2016-11-10 Completed [facility] y of Vaccine (3+ yrs) 00:00:00 [facility] Influenza Virus 2016-11-10 Completed [facility] y of Vaccine (3+ yrs) 00:00:00 [facility] Influenza Virus 2016-11-10 Completed [facility] y of Vaccine (3+ yrs) 00:00:00 [facility] Influenza Virus 2016-11-10 Completed [facility] y of Vaccine (3+ yrs) 00:00:00 [facility] Influenza Virus 2016-11-10 Completed [facility] y of Vaccine (3+ yrs) 00:00:00 [facility] Influenza Virus 2016-11-10 Completed [facility] y of Vaccine (3+ yrs) 00:00:00 [facility] Influenza Virus 2016-11-10 Completed [facility] y of Vaccine (3+ yrs) 00:00:00 [facility] Influenza Virus 2016-11-10 Completed [facility] of Vaccine (3+ yrs) 00:00:00 [facility] Influenza Virus 2016-11-10 Completed [facility] y of Vaccine (3+ yrs) 00:00:00 [facility] Influenza Virus 2016-11-10 Completed [facility] y of Vaccine (3+ yrs) 00:00:00 [facility] Influenza Virus 2016-11-10 Completed [facility] y of Vaccine (3+ yrs) 00:00:00 [facility] Influenza Virus 2016-11-10 Completed [facility] y of Vaccine (3+ yrs) 00:00:00 [facility] Influenza Virus 2016-11-10 Completed [facility] of Vaccine (3+ yrs) 00:00:00 [facility] Influenza Virus 2016-11-10 Completed [facility] of Vaccine (3+ yrs) 00:00:00 [facility] Influenza Virus 2016-11-10 Completed [facility] y of Vaccine (3+ yrs) 00:00:00 [facility] Influenza Virus 2016-11-10 Completed [facility] y of Vaccine (3+ yrs) 00:00:00 [facility] Influenza Virus 2016-11-10 Completed [facility] y of Vaccine (3+ yrs) 00:00:00 [facility] Influenza Virus 2016-11-10 Completed [facility] y of Vaccine (3+ yrs) 00:00:00 [facility] Influenza Virus 2016-11-10 Completed [facility] y of Vaccine (3+ yrs) 00:00:00 [facility] Influenza Virus 2016-11-10 Completed [facility] y of Vaccine (3+ yrs) 00:00:00 [facility] Influenza Virus 2016-11-10 Completed [facility] y of Vaccine (3+ yrs) 00:00:00 [facility] Influenza Virus 2016-11-10 Completed [facility] y of Vaccine (3+ yrs) 00:00:00 [facility] Influenza Virus 2016-11-10 Completed [facility] y of Vaccine (3+ yrs) 00:00:00 [facility] Influenza Virus 2016-11-10 Completed [facility] y of Vaccine (3+ yrs) 00:00:00 [facility] Influenza Virus 2016-11-10 Completed [facility] of Vaccine (3+ yrs) 00:00:00 [facility] Influenza Virus 2016-11-10 Completed [facility] of Vaccine (3+ yrs) 00:00:00 [facility] Influenza Virus 2016-11-10 Completed [facility] of Vaccine (3+ yrs) 00:00:00 [facility] Influenza Virus 2016-11-10 Completed [facility] of Vaccine (3+ yrs) 00:00:00 [facility] Influenza Virus 2016-11-10 Completed [facility] of Vaccine (3+ yrs) 00:00:00 [facility] Influenza Virus 2016-11-10 Completed [facility] of Vaccine (3+ yrs) 00:00:00 [facility] Influenza Virus 2016-11-10 Completed [facility] y of Vaccine (3+ yrs) 00:00:00 [facility] Influenza Virus 2016-11-10 Completed [facility] of Vaccine (3+ yrs) 00:00:00 [facility] Influenza Virus 2016-11-10 Completed [facility] of Vaccine (3+ yrs) 00:00:00 [facility] Influenza Virus 2016-11-10 Completed [facility] of Vaccine (3+ yrs) 00:00:00 [facility] Influenza Virus 2016-11-10 Completed [facility] of Vaccine (3+ yrs) 00:00:00 [facility] Influenza Virus 2016-11-10 Completed [facility] of Vaccine (3+ yrs) 00:00:00 [facility] Influenza Virus 2016-11-10 Completed [facility] of Vaccine (3+ yrs) 00:00:00 [facility] Influenza Virus 2016-11-10 Completed [facility] of Vaccine (3+ yrs) 00:00:00 [facility] Influenza Virus 2016-11-10 Completed [facility] of Vaccine (3+ yrs) 00:00:00 [facility] Influenza Virus 2016-11-10 Completed [facility] of Vaccine (3+ yrs) 00:00:00 [facility] Influenza Virus 2016-11-10 Completed [facility] of Vaccine (3+ yrs) 00:00:00 [facility] Influenza Virus 2016-11-10 Completed [facility] of Vaccine (3+ yrs) 00:00:00 [facility] Influenza Virus 2016-11-10 Completed [facility] of Vaccine (3+ yrs) 00:00:00 [facility] Influenza Virus 2016-11-10 Completed [facility] of Vaccine (3+ yrs) 00:00:00 [facility] Influenza Virus 2016-11-10 Completed [facility] of Vaccine (3+ yrs) 00:00:00 [facility] Influenza Virus 2016-11-10 Completed [facility] y of Vaccine (3+ yrs) 00:00:00 [facility] Influenza Virus 2016-11-10 Completed [facility] of Vaccine (3+ yrs) 00:00:00 [facility] Influenza Virus 2016-11-10 Completed [facility] of Vaccine (3+ yrs) 00:00:00 [facility] Influenza Virus 2016-11-10 Completed [facility] of Vaccine (3+ yrs) 00:00:00 [facility] Influenza Virus 2016-11-10 Completed [facility] of Vaccine (3+ yrs) 00:00:00 [facility] Influenza Virus 2016-11-10 Completed [facility] of Vaccine (3+ yrs) 00:00:00 [facility] Influenza Virus 2016-11-10 Completed [facility] y of Vaccine (3+ yrs) 00:00:00 [facility] Influenza Virus 2016-11-10 Completed [facility] y of Vaccine (3+ yrs) 00:00:00 [facility] Influenza Virus 2016-11-10 Completed [facility] y of Vaccine (3+ yrs) 00:00:00 [facility] Influenza Virus 2016-11-10 Completed [facility] of Vaccine (3+ yrs) 00:00:00 [facility] Influenza Virus 2016-11-10 Completed [facility] of Vaccine (3+ yrs) 00:00:00 [facility] Influenza Virus 2016-11-10 Completed [facility] of Vaccine (3+ yrs) 00:00:00 [facility] Influenza Virus 2016-11-10 Completed [facility] of Vaccine (3+ yrs) 00:00:00 [facility] Influenza Virus 2016-11-10 Completed [facility] of Vaccine (3+ yrs) 00:00:00 [facility] Pneumococcal 2014-04-13 Completed University o f Polysaccharide, 00:00:00 [facility] PPSV23 (PNEUMOVAX) Branch Pneumococcal 2014-04-13 Completed [facility] o f Polysaccharide, 00:00:00 [place] [facility] PPSV23 (PNEUMOVAX) Branch Pneumococcal 2014-04-13 Completed [facility] f Polysaccharide, 00:00:00 [place] [facility] PPSV23 (PNEUMOVAX) Branch Pneumococcal 2014-04-13 Completed [facility] o f Polysaccharide, 00:00:00 [place] [facility] PPSV23 (PNEUMOVAX) Branch Pneumococcal 2014-04-13 Completed [facility] o f Polysaccharide, 00:00:00 [place] [facility] PPSV23 (PNEUMOVAX) Branch Pneumococcal 2014-04-13 Completed [facility] o f Polysaccharide, 00:00:00 [place] [facility] PPSV23 (PNEUMOVAX) Branch Pneumococcal 2014-04-13 [...] y of Vaccine (3+ yrs) [facility] dical Branch Influenza Virus Unknown Completed Universit y of Vaccine (3+ yrs) [facility] dical Branch Twinrix (hep a/hep Unknown Completed Univer sity of b) [facility] Branch Twinrix (hep a/hep Unknown Completed Univer sity of b) [facility] Influenza Virus Unknown Completed Universit y of Vaccine (3+ yrs) [facility] dical Branch Influenza High Dose Unknown Completed Unive rsity of [facility] Influenza Virus Unknown Completed Universit y of Vaccine (3+ yrs) [facility] dical Branch Influenza Virus Unknown Completed Universit y of Vaccine (3+ yrs) [facility] dical Branch Pneumococcal Unknown Completed University o f Polysaccharide, [facility] ical PPSV23 (PNEUMOVAX) Branch Pneumococcal 13 Unknown Completed Universit y of Conjugate, PCV13 [facility] dical (Prevnar 13) Branch Pneumococcal 13 Unknown Completed Universit y of Conjugate, PCV13 [facility] dical (Prevnar 13) Branch SARS-COV-2 COVID-19 Unknown Completed Unive rsity of MODERNA 0.25ML [place] [facility] BOOSTER VACCINE Branch Influenza Virus Unknown Completed [facility] Vaccine,quad [place] [facility],preserve Free Branch 65+ (FLUAD) Influenza Virus Unknown Completed Universit y of Vaccine (3+ yrs) [facility] dical Branch Influenza Virus Unknown Completed Universit y of Vaccine (3+ yrs) [facility] dical Branch Twinrix (hep a/hep Unknown Completed Univer sity of b) [facility] Twinrix (hep a/hep Unknown Completed Univer sity of b) [facility] Influenza Virus Unknown Completed Universit y of Vaccine (3+ yrs) [facility] dical Branch Influenza High Dose Unknown Completed Unive rsity of [facility] Influenza Virus Unknown Completed Universit y of Vaccine (3+ yrs) [facility] dical Branch Influenza Virus Unknown Completed Universit y of Vaccine (3+ yrs) [facility] dical Branch Pneumococcal Unknown Completed University o f Polysaccharide, [place] [facility] PPSV23 (PNEUMOVAX) Branch Pneumococcal 13 Unknown Completed Universit y of Conjugate, PCV13 [facility] dical (Prevnar 13) Branch Pneumococcal 13 Unknown Completed Universit y of Conjugate, PCV13 [facility] dical (Prevnar 13) Branch SARS-COV-2 COVID-19 Unknown Completed Unive rsity of MODERNA 0.25ML [place] [facility] BOOSTER VACCINE Branch Influenza Virus Unknown Completed [facility] of Vaccine,quad [place] [facility],preserve Free Branch 65+ (FLUAD) Influenza Virus Unknown Completed Universit y of Vaccine (3+ yrs) [facility] dical Branch Influenza Virus Unknown Completed Universit y of Vaccine (3+ yrs) [facility] dical Branch Twinrix (hep a/hep Unknown Completed Univer sity of b) [facility] Twinrix (hep a/hep Unknown Completed Univer sity of b) [facility] Influenza Virus Unknown Completed Universit y of Vaccine (3+ yrs) [facility] dical Branch Influenza High Dose Unknown Completed Unive rsity of [facility] Influenza Virus Unknown Completed [facility]it y of Vaccine (3+ yrs) [facility] dical Branch Influenza Virus Unknown Completed [facility]it y of Vaccine (3+ yrs) [facility] dical Branch Pneumococcal Unknown Completed University o f Polysaccharide, [place] [facility] PPSV23 (PNEUMOVAX) Branch Pneumococcal 13 Unknown Completed Universit y of Conjugate, PCV13 [facility] dical (Prevnar 13) Branch Pneumococcal 13 Unknown Completed Universit y of Conjugate, PCV13 [facility] dical (Prevnar 13) Branch SARS-COV-2 COVID-19 Unknown Completed Unive rsity of MODERNA 0.25ML [place] [facility] BOOSTER VACCINE Branch Influenza Virus Unknown Completed [facility] y of Vaccine,quad [place] [facility],preserve Free Branch 65+ (FLUAD) Influenza Virus Unknown Completed [facility] Vaccine (3+ yrs) [place] [facility] Influenza Virus Unknown Completed [facility]it y of Vaccine (3+ yrs) [facility] dical Branch Twinrix (hep a/hep Unknown Completed Univer sity of b) [facility] Twinrix (hep a/hep Unknown Completed Univer sity of b) [facility] Influenza Virus Unknown Completed Universit y of Vaccine (3+ yrs) [facility] dical Branch Influenza High Dose Unknown Completed Unive rsity of [facility] Influenza Virus Unknown Completed [facility] Vaccine (3+ yrs) [place] [facility] Influenza Virus Unknown Completed [facility]it y of Vaccine (3+ yrs) [facility] dical Branch Pneumococcal Unknown Completed University o f Polysaccharide, [place] [facility] PPSV23 (PNEUMOVAX) Branch Pneumococcal 13 Unknown Completed [facility]it y of Conjugate, PCV13 [facility] dical (Prevnar 13) Branch Pneumococcal 13 Unknown Completed Universit y of Conjugate, PCV13 [facility] dical (Prevnar 13) Branch SARS-COV-2 COVID-19 Unknown Completed Unive rsity of MODERNA 0.25ML [place] [facility] BOOSTER VACCINE Branch Influenza Virus Unknown Completed [facility] of Vaccine,quad [place] [facility],preserve Free Branch 65+ (FLUAD) Influenza Virus Unknown Completed [facility]it y of Vaccine (3+ yrs) [facility] dical Branch Influenza Virus Unknown Completed Universit y of Vaccine (3+ yrs) [facility] dical Branch Twinrix (hep a/hep Unknown Completed Univer sity of b) [facility] Twinrix (hep a/hep Unknown Completed Univer sity of b) [facility] Influenza Virus Unknown Completed Universit y of Vaccine (3+ yrs) [facility] dical Branch Influenza High Dose Unknown Completed Unive rsity of [facility] Influenza Virus Unknown Completed [facility]it y of Vaccine (3+ yrs) [facility] dical Branch Influenza Virus Unknown Completed Universit y of Vaccine (3+ yrs) [facility] dical Branch Pneumococcal Unknown Completed [facility] o f Polysaccharide, [place] [facility] PPSV23 (PNEUMOVAX) Branch Pneumococcal 13 Unknown Completed Universit y of Conjugate, PCV13 [facility] dical (Prevnar 13) Branch Pneumococcal 13 Unknown Completed Universit y of Conjugate, PCV13 [facility] dical (Prevnar 13) Branch SARS-COV-2 COVID-19 Unknown Completed Unive rsity of MODERNA 0.25ML [place] [facility] BOOSTER VACCINE Branch Influenza Virus Unknown Completed [facility] of Vaccine,quad [place] [facility],preserve Free Branch 65+ (FLUAD) Influenza Virus Unknown Completed [facility] Vaccine (3+ yrs) [place] [facility] Influenza Virus Unknown Completed [facility]it y of Vaccine (3+ yrs) [facility] dical Branch Twinrix (hep a/hep Unknown Completed Univer sity of b) [place] [facility] Twinrix (hep a/hep Unknown Completed Univer sity of b) [facility] Influenza Virus Unknown Completed [facility] Vaccine (3+ yrs) [place] [facility] Influenza High Dose Unknown Completed [facility]ive rsity of [facility] Influenza Virus Unknown Completed [facility] Vaccine (3+ yrs) [place] [facility] Influenza Virus Unknown Completed [facility]it y of Vaccine (3+ yrs) [facility] dical Branch Pneumococcal Unknown Completed University o f Polysaccharide, [place] [facility] PPSV23 (PNEUMOVAX) Branch Pneumococcal 13 Unknown Completed Universit y of Conjugate, PCV13 [facility] dical (Prevnar 13) Branch Pneumococcal 13 Unknown Completed [facility]it y of Conjugate, PCV13 [facility] dical (Prevnar 13) Branch SARS-COV-2 COVID-19 Unknown Completed Unive rsity of MODERNA 0.25ML [facility] drew BOOSTER VACCINE Branch Influenza Virus Unknown Completed [facility]it y of Vaccine,quad [place] [facility],preserve Free Branch 65+ (FLUAD) Influenza Virus Unknown Completed [facility] of Vaccine (3+ yrs) [place] [facility] Influenza Virus Unknown Completed [facility]it y of Vaccine (3+ yrs) [facility] dical Branch Twinrix (hep a/hep Unknown Completed Univer sity of b) [facility] Twinrix (hep a/hep Unknown Completed Univer sity of b) [facility] Influenza Virus Unknown Completed [facility] of Vaccine (3+ yrs) [place] [facility] Influenza High Dose Unknown Completed Unive rsity of [facility] Influenza Virus Unknown Completed [facility] y of Vaccine (3+ yrs) [place] [facility] Influenza Virus Unknown Completed Universit y of Vaccine (3+ yrs) [facility] dical Branch Pneumococcal Unknown Completed University o f Polysaccharide, [place] [facility] PPSV23 (PNEUMOVAX) Branch Pneumococcal 13 Unknown Completed Universit y of Conjugate, PCV13 [facility] dical (Prevnar 13) Branch Pneumococcal 13 Unknown Completed Universit y of Conjugate, PCV13 [facility] dical (Prevnar 13) Branch SARS-COV-2 COVID-19 Unknown Completed Unive rsity of MODERNA 0.25ML [place] [facility] BOOSTER VACCINE Branch Influenza Virus Unknown Completed [facility] y of Vaccine,quad [place] [facility],preserve Free Branch 65+ (FLUAD) Influenza Virus Unknown Completed [facility] y of Vaccine (3+ yrs) [place] [facility] Influenza Virus Unknown Completed [facility] y of Vaccine (3+ yrs) [place] [facility] Twinrix (hep a/hep Unknown Completed Univer sity of b) [facility] Twinrix (hep a/hep Unknown Completed Univer sity of b) [facility] Influenza Virus Unknown Completed [facility] y of Vaccine (3+ yrs) [place] [facility] Influenza High Dose Unknown Completed Unive rsity of [facility] Influenza Virus Unknown Completed [facility]it y of Vaccine (3+ yrs) [place] [facility] Influenza Virus Unknown Completed [facility]it y of Vaccine (3+ yrs) [facility] dical Branch Pneumococcal Unknown Completed University o f Polysaccharide, [place] [facility] PPSV23 (PNEUMOVAX) Branch Pneumococcal 13 Unknown Completed [facility]it y of Conjugate, PCV13 [place] [facility] (Prevnar 13) Branch Pneumococcal 13 Unknown Completed Universit y of Conjugate, PCV13 [facility] dical (Prevnar 13) Branch SARS-COV-2 COVID-19 Unknown Completed Unive rsity of MODERNA 0.25ML [place] [facility] BOOSTER VACCINE Branch Influenza Virus Unknown Completed [facility] y of Vaccine,quad [place] [facility],preserve Free Branch 65+ (FLUAD) Influenza Virus Unknown Completed [facility]it y of Vaccine (3+ yrs) [place] [facility] Influenza Virus Unknown Completed [facility]it y of Vaccine (3+ yrs) [place] [facility] Twinrix (hep a/hep Unknown Completed Univer sity of b) [facility] Twinrix (hep a/hep Unknown Completed Univer sity of b) [facility] Influenza Virus Unknown Completed [facility] y of Vaccine (3+ yrs) [place] [facility] Influenza High Dose Unknown Completed Unive rsity of [facility] Influenza Virus Unknown Completed [facility] y of Vaccine (3+ yrs) [place] [facility] Influenza Virus Unknown Completed [facility]it y of Vaccine (3+ yrs) [facility] dical Branch Pneumococcal Unknown Completed University o f Polysaccharide, [place] [facility] PPSV23 (PNEUMOVAX) Branch Pneumococcal 13 Unknown Completed Universit y of Conjugate, PCV13 [facility] dical (Prevnar 13) Branch Pneumococcal 13 Unknown Completed Universit y of Conjugate, PCV13 [facility] dical (Prevnar 13) Branch SARS-COV-2 COVID-19 Unknown Completed Unive rsity of MODERNA 0.25ML [place] [facility] BOOSTER VACCINE Branch Influenza Virus Unknown Completed [facility] y of Vaccine,quad [place] [facility],preserve Free Branch 65+ (FLUAD) Influenza Virus Unknown Completed [facility]it y of Vaccine (3+ yrs) [place] [facility] Influenza Virus Unknown Completed Universit y of Vaccine (3+ yrs) [facility] dical Branch Twinrix (hep a/hep Unknown Completed Univer sity of b) [facility] Twinrix (hep a/hep Unknown Completed Univer sity of b) [facility] Influenza Virus Unknown Completed Universit y of Vaccine (3+ yrs) [facility] dical Branch Influenza High Dose Unknown Completed Unive rsity of [facility] Influenza Virus Unknown Completed Universit y of Vaccine (3+ yrs) [facility] dical Branch Influenza Virus Unknown Completed Universit y of Vaccine (3+ yrs) [facility] dical Branch Pneumococcal Unknown Completed University o f Polysaccharide, [facility] PPSV23 (PNEUMOVAX) Branch Pneumococcal 13 Unknown Completed Universit y of Conjugate, PCV13 [facility] dical (Prevnar 13) Branch Pneumococcal 13 Unknown Completed Universit y of Conjugate, PCV13 [facility] dical (Prevnar 13) Branch SARS-COV-2 COVID-19 Unknown Completed Unive rsity of MODERNA 0.25ML [place] [facility] BOOSTER VACCINE Branch Influenza Virus Unknown Completed [facility] y of Vaccine,quad [place] [facility],preserve Free Branch 65+ (FLUAD) Influenza Virus Unknown Completed Universit y of Vaccine (3+ yrs) [facility] dical Branch Influenza Virus Unknown Completed Universit y of Vaccine (3+ yrs) [facility] dical Branch Twinrix (hep a/hep Unknown Completed Univer sity of b) [facility] Twinrix (hep a/hep Unknown Completed Univer sity of b) [facility] Influenza Virus Unknown Completed Universit y of Vaccine (3+ yrs) [facility] dical Branch Influenza High Dose Unknown Completed Unive rsity of [facility] Influenza Virus Unknown Completed Universit y of Vaccine (3+ yrs) [facility] dical Branch Influenza Virus Unknown Completed Universit y of Vaccine (3+ yrs) [facility] dical Branch Pneumococcal Unknown Completed University o f Polysaccharide, [place] [facility] PPSV23 (PNEUMOVAX) Branch Pneumococcal 13 Unknown Completed Universit y of Conjugate, PCV13 [facility] dical (Prevnar 13) Branch Pneumococcal 13 Unknown Completed Universit y of Conjugate, PCV13 [facility] dical (Prevnar 13) Branch SARS-COV-2 COVID-19 Unknown Completed Unive rsity of MODERNA 0.25ML [place] [facility] BOOSTER VACCINE Branch Influenza Virus Unknown Completed [facility] y of Vaccine,quad [place] [facility],preserve Free Branch 65+ (FLUAD) Influenza Virus Unknown Completed [facility] y of Vaccine (3+ yrs) [place] [facility] Influenza Virus Unknown Completed Universit y of Vaccine (3+ yrs) [facility] dical Branch Twinrix (hep a/hep Unknown Completed Univer sity of b) [facility] Twinrix (hep a/hep Unknown Completed Univer sity of b) [facility] Influenza Virus Unknown Completed [facility] y of Vaccine (3+ yrs) [place] [facility] Influenza High Dose Unknown Completed Unive rsity of [facility] Influenza Virus Unknown Completed [facility]it y of Vaccine (3+ yrs) [place] [facility] Influenza Virus Unknown Completed Universit y of Vaccine (3+ yrs) [facility] dical Branch Pneumococcal Unknown Completed University o f Polysaccharide, [place] [facility] PPSV23 (PNEUMOVAX) Branch Pneumococcal 13 Unknown Completed Universit y of Conjugate, PCV13 [facility] dical (Prevnar 13) Branch Pneumococcal 13 Unknown Completed Universit y of Conjugate, PCV13 [facility] dical (Prevnar 13) Branch SARS-COV-2 COVID-19 Unknown Completed Unive rsity of MODERNA 0.25ML [place] [facility] BOOSTER VACCINE Branch Influenza Virus Unknown Completed [facility] y of Vaccine,quad [place] [facility],preserve Free Branch 65+ (FLUAD) Influenza Virus Unknown Completed [facility] y of Vaccine (3+ yrs) [place] [facility] Influenza Virus Unknown Completed [facility]it y of Vaccine (3+ yrs) [place] [facility] Twinrix (hep a/hep Unknown Completed Univer sity of b) [facility] Twinrix (hep a/hep Unknown Completed Univer sity of b) [facility] Influenza Virus Unknown Completed [facility] y of Vaccine (3+ yrs) [place] [facility] Influenza High Dose Unknown Completed Unive rsity of [facility] Influenza Virus Unknown Completed Universit y of Vaccine (3+ yrs) [facility] dical Branch Influenza Virus Unknown Completed Universit y of Vaccine (3+ yrs) [facility] dical Branch Pneumococcal Unknown Completed University o f Polysaccharide, [place] [facility] PPSV23 (PNEUMOVAX) Branch Pneumococcal 13 Unknown Completed Universit y of Conjugate, PCV13 [facility] dical (Prevnar 13) Branch Pneumococcal 13 Unknown Completed Universit y of Conjugate, PCV13 [facility] dical (Prevnar 13) Branch Influenza Virus Unknown Completed Universit y of Vaccine (3+ yrs) [facility] dical Branch Influenza Virus Unknown Completed Universit y of Vaccine (3+ yrs) [facility] dical Branch Twinrix (hep a/hep Unknown Completed Univer sity of b) [facility] Twinrix (hep a/hep Unknown Completed Univer sity of b) [facility] Influenza Virus Unknown Completed Universit y of Vaccine (3+ yrs) [facility] dical Branch Influenza High Dose Unknown Completed Unive rsity of [facility] Branch Influenza Virus Unknown Completed Universit y of Vaccine (3+ yrs) [facility] dical Branch Influenza Virus Unknown Completed Universit y of Vaccine (3+ yrs) [facility] dical Branch Pneumococcal Unknown Completed University o f Polysaccharide, [facility] ical PPSV23 (PNEUMOVAX) Branch Pneumococcal 13 Unknown Completed Universit y of Conjugate, PCV13 [facility] dical (Prevnar 13) Branch Pneumococcal 13 Unknown Completed Universit y of Conjugate, PCV13 [facility] dical (Prevnar 13) Branch Influenza Virus Unknown Completed Universit y of Vaccine (3+ yrs) [facility] dical Branch Influenza Virus Unknown Completed Universit y of Vaccine (3+ yrs) [facility] dical Branch Twinrix (hep a/hep Unknown Completed Univer sity of b) [facility] Twinrix (hep a/hep Unknown Completed Univer sity of b) [facility] Influenza Virus Unknown Completed Universit y of Vaccine (3+ yrs) [facility] dical Branch Influenza High Dose Unknown Completed Unive rsity of [facility] Branch Influenza Virus Unknown Completed Universit y of Vaccine (3+ yrs) [facility] dical Branch Influenza Virus Unknown Completed Universit y of Vaccine (3+ yrs) [facility] dical Branch Pneumococcal Unknown Completed University o f Polysaccharide, [place] [facility] PPSV23 (PNEUMOVAX) Branch Pneumococcal 13 Unknown Completed Universit y of Conjugate, PCV13 [facility] dical (Prevnar 13) Branch Pneumococcal 13 Unknown Completed Universit y of Conjugate, PCV13 [facility] dical (Prevnar 13) Branch Influenza Virus Unknown Completed Universit y of Vaccine (3+ yrs) [facility] dical Branch Influenza Virus Unknown Completed Universit y of Vaccine (3+ yrs) [facility] dical Branch Twinrix (hep a/hep Unknown Completed Univer sity of b) [facility] Twinrix (hep a/hep Unknown Completed Univer sity of b) [facility] Influenza Virus Unknown Completed Universit y of Vaccine (3+ yrs) [facility] dical Branch Influenza High Dose Unknown Completed Unive rsity of [facility] Branch Influenza Virus Unknown Completed Universit y of Vaccine (3+ yrs) [facility] dical Branch Influenza Virus Unknown Completed Universit y of Vaccine (3+ yrs) [facility] dical Branch Pneumococcal Unknown Completed University o f Polysaccharide, [place] [facility] PPSV23 (PNEUMOVAX) Branch Pneumococcal 13 Unknown Completed Universit y of Conjugate, PCV13 [facility] dical (Prevnar 13) Branch Pneumococcal 13 Unknown Completed Universit y of Conjugate, PCV13 [facility] dical (Prevnar 13) Branch Influenza Virus Unknown Completed Universit y of Vaccine (3+ yrs) [facility] dical Branch Influenza Virus Unknown Completed Universit y of Vaccine (3+ yrs) [facility] dical Branch Twinrix (hep a/hep Unknown Completed Univer sity of b) [facility] Branch Twinrix (hep a/hep Unknown Completed Univer sity of b) [facility] Branch Influenza Virus Unknown Completed Universit y of Vaccine (3+ yrs) [facility] dical Branch Influenza High Dose Unknown Completed Unive rsity of [facility] Branch Influenza Virus Unknown Completed Universit y of Vaccine (3+ yrs) [facility] dical Branch Influenza Virus Unknown Completed Universit y of Vaccine (3+ yrs) [facility] dical Branch Pneumococcal Unknown Completed University o f Polysaccharide, [place] [facility] PPSV23 (PNEUMOVAX) Branch Pneumococcal 13 Unknown Completed Universit y of Conjugate, PCV13 [facility] dical (Prevnar 13) Branch Pneumococcal 13 Unknown Completed Universit y of Conjugate, PCV13 [facility] dical (Prevnar 13) Branch Influenza Virus Unknown Completed Universit y of Vaccine (3+ yrs) [facility] dical Branch Influenza Virus Unknown Completed Universit y of Vaccine (3+ yrs) [facility] dical Branch Twinrix (hep a/hep Unknown Completed Univer sity of b) [facility] Twinrix (hep a/hep Unknown Completed Univer sity of b) [facility] Influenza Virus Unknown Completed Universit y of Vaccine (3+ yrs) [facility] dical Branch Influenza High Dose Unknown Completed Unive rsity of [facility] Influenza Virus Unknown Completed Universit y of Vaccine (3+ yrs) [facility] dical Branch Influenza Virus Unknown Completed Universit y of Vaccine (3+ yrs) [facility] dical Branch Pneumococcal Unknown Completed University o f Polysaccharide, [place] [facility] PPSV23 (PNEUMOVAX) Branch Pneumococcal 13 Unknown Completed Universit y of Conjugate, PCV13 [facility] dical (Prevnar 13) Branch Pneumococcal 13 Unknown Completed Universit y of Conjugate, PCV13 [facility] dical (Prevnar 13) Branch Influenza Virus Unknown Completed Universit y of Vaccine (3+ yrs) [facility] dical Branch Influenza Virus Unknown Completed Universit y of Vaccine (3+ yrs) [facility] dical Branch Twinrix (hep a/hep Unknown Completed Univer sity of b) [facility] Twinrix (hep a/hep Unknown Completed Univer sity of b) [facility] Influenza Virus Unknown Completed Universit y of Vaccine (3+ yrs) [facility] dical Branch Influenza High Dose Unknown Completed Unive rsity of [facility] Branch Influenza Virus Unknown Completed Universit y of Vaccine (3+ yrs) [facility] dical Branch Influenza Virus Unknown Completed Universit y of Vaccine (3+ yrs) [facility] dical Branch Pneumococcal Unknown Completed University o f Polysaccharide, [place] [facility] PPSV23 (PNEUMOVAX) Branch Pneumococcal 13 Unknown Completed Universit y of Conjugate, PCV13 [facility] dical (Prevnar 13) Branch Pneumococcal 13 Unknown Completed Universit y of Conjugate, PCV13 [facility] dical (Prevnar 13) Branch Influenza Virus Unknown Completed Universit y of Vaccine (3+ yrs) [facility] dical Branch Influenza Virus Unknown Completed Universit y of Vaccine (3+ yrs) [facility] dical Branch Twinrix (hep a/hep Unknown Completed Univer sity of b) [facility] Twinrix (hep a/hep Unknown Completed Univer sity of b) [facility] Branch Influenza Virus Unknown Completed Universit y of Vaccine (3+ yrs) [facility] dical Branch Influenza High Dose Unknown Completed Unive rsity of [facility] Branch Influenza Virus Unknown Completed Universit y of Vaccine (3+ yrs) [facility] dical Branch Influenza Virus Unknown Completed Universit y of Vaccine (3+ yrs) [facility] dicme Branch Pneumococcal Unknown Completed University o f Polysaccharide, [place] [facility] PPSV23 (PNEUMOVAX) Branch Pneumococcal 13 Unknown Completed Universit y of Conjugate, PCV13 [facility] dicme (Prevnar 13) Branch Pneumococcal 13 Unknown Completed Universit y of Conjugate, PCV13 [facility] dicme (Prevnar 13) Branch Vital Signs Vital Name Observation Time Observation Value Comments Source Systolic blood 2022-03-02 21:31:00 138 mm[Hg] Univer sity of pressure [facility] Diastolic blood 2022-03-02 21:31:00 60 mm[Hg] Unive rsity of [facility] Body temperature 2022-03-02 21:31:00 36.56 Lily Univ ersity of [facility] Body height 2022-03-02 21:31:00 182.9 cm Universi ty of [facility] Body weight 2022-03-02 21:31:00 156.672 kg [facility] ty [facility] BMI 2022-03-02 21:31:00 46.84 kg/m2 Universi ty [facility] Oxygen saturation in 2022-03-02 21:31:00 93 /min University of Arterial blood by [facility] Pulse oximetry Branch Systolic blood 2022-02-22 16:00:00 155 mm[Hg] Univer sity of [facility] Diastolic blood 2022-02-22 16:00:00 78 mm[Hg] Unive rsity of [facility] Heart rate 2022-02-22 15:52:00 80 /min Universi ty of [facility] Body height 2022-02-22 15:52:00 177.8 cm [facility]i ty of [facility] Body weight 2022-02-22 15:52:00 154.223 kg Universi ty [facility] BMI 2022-02-22 15:52:00 48.78 kg/m2 [facility] ty [facility] Systolic blood 2022-02-06 17:17:00 114 mm[Hg] Univer sity of [facility] Diastolic blood 2022-02-06 17:17:00 57 mm[Hg] Unive rsity of [facility] Heart rate 2022-02-06 17:17:00 40 /min [facility]i ty of [facility] Body temperature 2022-02-06 17:17:00 36.89 Lily Univ ers[facility] of [facility] Body height 2022-02-06 17:17:00 177.8 cm [facility] Body weight 2022-02-06 17:17:00 155.584 kg [facility] BMI 2022-02-06 17:17:00 49.22 kg/m2 [facility] Systolic blood 2022-02-01 16:42:00 145 mm[Hg] Univer sity of pressure [facility] Diastolic blood 2022-02-01 16:42:00 83 mm[Hg] Unive rsity of pressure [facility] Heart rate 2022-02-01 16:41:00 80 /min [facility] ty of [facility] Body temperature 2022-02-01 16:41:00 37.33 Lily [facility] Body weight 2022-02-01 16:41:00 155.584 kg [facility] BMI 2022-02-01 16:41:00 46.52 kg/m2 [facility] Systolic blood 2022-01-27 02:30:00 178 mm[Hg] Univer sity of pressure [facility] Diastolic blood 2022-01-27 02:30:00 95 mm[Hg] Unive rsity of pressure [facility] Heart rate 2022-01-27 02:30:00 79 /min [facility] ty of [facility] Respiratory rate 2022-01-27 02:30:00 21 /min Univ ersity of [facility] Oxygen saturation in 2022-01-27 02:30:00 94 /min [facility] Arterial blood by [facility] Pulse oximetry Branch Body temperature 2022-01-27 01:10:00 36.5 Lily Univ ers[facility] Body height 2022-01-27 01:10:00 182.9 cm Universi ty of [facility] Body weight 2022-01-27 01:10:00 158.759 kg [facility] BMI 2022-01-27 01:10:00 47.47 kg/m2 [facility] of [facility] Systolic blood 2022-01-05 14:49:00 141 mm[Hg] Univer sity of pressure [facility] Diastolic blood 2022-01-05 14:49:00 77 mm[Hg] Unive rsity of pressure [facility] Heart rate 2022-01-05 14:49:00 81 /min [facility] Body temperature 2022-01-05 14:46:00 36.44 Lily [facility] Body height 2022-01-05 14:46:00 182.9 cm [facility]i [facility] Body weight 2022-01-05 14:46:00 154.541 kg [facility] BMI 2022-01-05 14:46:00 46.21 kg/m2 [facility] Oxygen saturation in 2022-01-05 14:46:00 93 /min University of Arterial blood by [facility] Pulse oximetry Branch Systolic blood 2021-12-08 19:17:00 146 mm[Hg] Univer sity of pressure [facility] Diastolic blood 2021-12-08 19:17:00 66 mm[Hg] Unive rsity of pressure [facility] Heart rate 2021-12-08 19:17:00 77 /min [facility]i ty [facility] Body height 2021-12-08 19:17:00 182.9 cm [facility] Body weight 2021-12-08 19:17:00 155.402 kg [facility] BMI 2021-12-08 19:17:00 46.46 kg/m2 [facility] Oxygen saturation in 2021-12-08 19:17:00 92 /min University of Arterial blood by [facility] Pulse oximetry Branch Systolic blood 2021-12-01 15:11:00 145 mm[Hg] Univer sity of pressure [facility] Diastolic blood 2021-12-01 15:11:00 75 mm[Hg] Unive rsity of pressure [facility] Heart rate 2021-12-01 15:11:00 58 /min [facility] Body temperature 2021-12-01 15:11:00 36 Lily [facility] Respiratory rate 2021-12-01 15:11:00 19 /min Univ ers[facility] Body height 2021-12-01 15:11:00 182.9 cm [facility] Body weight 2021-12-01 15:11:00 154.087 kg [facility] BMI 2021-12-01 15:11:00 46.07 kg/m2 [facility] Oxygen saturation in 2021-12-01 15:11:00 93 /min University of Arterial blood by [facility] drew Pulse oximetry Branch Systolic blood 2021-11-25 05:01:00 138 mm[Hg] Univer sity of pressure [facility] Diastolic blood 2021-11-25 05:01:00 63 mm[Hg] Unive rsity of pressure [facility] Heart rate 2021-11-25 05:01:00 86 /min [facility] ty [facility] Respiratory rate 2021-11-25 05:01:00 19 /min Univ ers[facility] Oxygen saturation in 2021-11-25 05:01:00 94 /min University of Arterial blood by [facility] Pulse oximetry Branch Body temperature 2021-11-25 01:27:00 36.44 Lily [facility] Body height 2021-11-25 01:27:00 182.9 cm [facility] Body weight 2021-11-25 01:27:00 150.141 kg [facility] BMI 2021-11-25 01:27:00 44.89 kg/m2 [facility] Systolic blood 2021-11-24 15:13:00 167 mm[Hg] Univer sity of pressure [facility] Diastolic blood 2021-11-24 15:13:00 102 mm[Hg] Unive rsity of pressure [facility] Heart rate 2021-11-24 15:09:00 80 /min [facility] Body temperature 2021-11-24 15:09:00 36.39 Lily [facility] Body height 2021-11-24 15:09:00 182.9 cm [facility] Body weight 2021-11-24 15:09:00 150.277 kg [facility] BMI 2021-11-24 15:09:00 44.93 kg/m2 [facility] Oxygen saturation in 2021-11-24 15:09:00 97 /min [facility] Arterial blood by [facility] Pulse oximetry Branch Body weight 2020-12-24 13:33:00 161.5 kg [facility] BMI 2020-12-24 13:33:00 48.29 kg/m2 [facility] Systolic blood 2022-11-23 15:01:00 137 mm[Hg] [facility] pressure Diastolic blood 2022-11-23 15:01:00 84 mm[Hg] [facility] pressure Heart rate 2022-11-23 15:01:00 86 /min [facility] Body height 2022-11-23 15:01:00 182.9 cm [facility] Body weight 2022-11-23 15:01:00 160.29 kg [facility] BMI 2022-11-23 15:01:00 47.93 kg/m2 [facility] Oxygen saturation in 2022-09-11 17:57:00 91 /min [facility] Arterial blood by Pulse oximetry Heart rate 2022-08-09 18:16:00 79 /min [facility] Body height 2022-08-09 18:16:00 182.9 cm [facility] Body weight 2022-08-09 18:16:00 159.303 kg [facility] BMI 2022-08-09 18:16:00 47.63 kg/m2 [facility] Systolic blood 2022-08-09 18:16:00 142 mm[Hg] [facility] pressure Diastolic blood 2022-08-09 18:16:00 64 mm[Hg] [facility] pressure Procedures Procedure Date / Time Performing Clinician Source Performed PROTHROMBIN TIME WITH 2022-12-22 14:49:00 Janay Yi [facility] INR PROTHROMBIN TIME WITH 2022-12-11 13:44:00 Janay Yi [facility] INR CBC WITH PLATELET AND 2022-11-24 14:20:00 Janay Yi [facility] DIFFERENTIAL COMPREHENSIVE METABOLIC 2022-11-24 14:20:00 Janay Yi [facility] PANEL B NATRIURETIC PEPTIDE 2022-11-24 [facility]:20[facility] 2022-11-23 00:00:00 Provider, Not In [facility] INR System PROTHROMBIN TIME WITH 2022-11-06 15:07:00 Kassidy [facility] INR PROTHROMBIN TIME WITH 2022-10-23 00:00:00 Provider, Not In [facility] INR System PROTHROMBIN TIME WITH 2022-10-13 14:50:00 Ahwm [facility] INR PROTHROMBIN TIME WITH 2022-10-04 00:00:00 Provider, Not In [facility] INR System NM BRAIN SPECT W I 123 2022-09-20 20:28:00 Jac Sharma [facility] DATSCAN ECG 12-LEAD 2022-09-11 17:58:01 [facility] WITH PLATELET AND 2022-08-10 14:49:00 Kassidy [facility] DIFFERENTIAL COMPREHENSIVE METABOLIC 2022-08-10 14:49:00 Kassidy [facility] PANEL B NATRIURETIC PEPTIDE 2022-08-10 14:49:00 Kassidy [facility] LIPID PANEL 2022-08-10 14:49:00 Janay Yi [facility] TTE COMPLETE, W 2022-08-09 17:10:00 Janay Yi [facility] CONTRAST, W DOPPLER ([id number]) ECG 12-LEAD 2022-07-31 20:03:43 Janay Yi [facility] AUTHORIZATION FOR 2022-07-20 05:01:00 Doctor Unassigned, No Univ ersity [facility] RELEASE OF PHI Name Medical Branch AUTHORIZATION FOR 2022-07-04 05:01:00 Doctor Unassigned, No Univ ersity [facility] RELEASE OF PHI Name Medical Branch AUTHORIZATION FOR 2022-04-15 06:01:00 Doctor Unassigned, No [facility] [place] RELEASE OF PHI Name Medical Branch AUTHORIZATION FOR 2022-03-14 06:01:00 Doctor Unassigned, No [facility] [place] RELEASE OF PHI Name Medical Branch BASIC METABOLIC PANEL 2022-02-22 15:13:00 Joon Woody [facility] [place] (NA, K, CL, CO2, Medical Branch GLUCOSE, BUN, CREATININE, CA) PROTHROMBIN TIME / INR 2022-02-22 15:13:00 Joon WoodyHMaria A U [facility] N-TERMINAL PRO-BNP 2022-02-22 15:13:00 Joon Woody.Altagracia [facility] POCT SARS-COV-2 ANTIGEN 2022-02-01 00:00:00 Jose Juan Gonsalez [facility] (BINAX NOW) Medical Branch MAGNESIUM 2022-01-27 01:20:00 Kash [facility] TROPONIN I 2022-01-27 01:20:00 Kash Jessica [facility] COMP. METABOLIC PANEL 2022-01-27 01:20:00 Jessica Hewitt [facility] ([id number]) [facility] CBC WITH DIFF 2022-01-27 01:20:00 Kash [facility] N-TERMINAL PRO-BNP 2022-01-27 01:20:00 Kash Jessica [facility] CONSENT/REFUSAL FOR 2022-01-27 01:01:28 Doctor Unassigned, No Un [facility] DIAGNOSIS AND TREATMENT Name [facility] PROTHROMBIN TIME / INR 2022-01-26 19:21:00 Joon Woody K.HMaria A [place] [facility] CT CERVICAL SPINE WO 2022-01-26 19:01:00 Requisition, Paper [facility] POCT HEMOGLOBIN A1C TEST 2021-12-08 20:05:00 [facility] 2021-12-01 15:53:00 Joon Woody [facility] COMP. METABOLIC PANEL 2021-12-01 15:53:00 Joon Woody K.HMaria A Un [facility] ([id number]) [facility] LIPID PANEL 2021-12-01 15:53:00 Woody, Sendsissy [facility] ([id number])(TOTAL [facility] Branch CHOLESTEROL, TRIGLYCERIDES, HDL) CBC WITH DIFF 2021-12-01 15:53:00 Joon Woody [facility] PROTHROMBIN TIME / INR 2021-12-01 15:53:00 Joon [facility]MINAL PRO-BNP 2021-12-01 15:53:00 [facility] 2021-11-25 01:49:00 Val Love [facility] TROPONIN I 2021-11-25 01:49:00 Val Love [facility] COMP. METABOLIC PANEL 2021-11-25 01:49:00 Val Love Uni [facility] ([id number]) [facility] CBC WITH DIFF 2021-11-25 01:49:00 Val Love [facility] PROTHROMBIN TIME / INR 2021-11-25 01:49:00 [facility]REFUSAL FOR 2021-11-25 01:15:35 [facility] Plan of Care Planned Activity Planned Date Details Comments Source Future Scheduled 2023-01-01 [facility] Test 12:15:17 malignant neoplasm of colon (procedure) [code = 224525885] Future Scheduled 2023-01-01 Screening for [facility] Test 12:15:17 malignant neoplasm of colon (procedure) [code = 575006194] Future Scheduled 2023-01-01 Screening for [facility] Test 12:15:17 malignant neoplasm of colon (procedure) [code = 946406239] Future Scheduled 2023-01-01 Hepatitis C screening [facility] Test 12:15:17 (procedure) [code = 365953306] Future Scheduled 2023-01-01 Screening for [facility] Test 12:15:17 malignant neoplasm of colon (procedure) [code = 955737617] Future Scheduled 2023-01-01 Screening for [facility] Test 12:15:17 malignant neoplasm of colon (procedure) [code = 612799589] Future Scheduled 2023-01-01 SHINGLES VACCINES (1 Met [facility] Test 12:15:17 of 2) [code = SHINGLES VACCINES (1 of 2)] Future Scheduled 2023-01-01 HEPATITIS B VACCINES Met [facility] Test 12:15:17 (3 of 3 - Hep B Twinrix risk 3-dose series) [code = HEPATITIS B VACCINES (3 of 3 - Hep B Twinrix risk 3-dose series)] Future Scheduled 2023-01-01 65+ PNEUMOCOCCAL [facility] Test 12:15:17 VACCINE (3 - PPSV23 or PCV20) [code = 65+ PNEUMOCOCCAL VACCINE (3 - PPSV23 or PCV20)] Future Scheduled 2023-01-01 COVID-19 VACCINE (4 - [facility] Test 12:15:17 season) [code = COVID-19 VACCINE (4 - season)] Future Scheduled 2023-01-01 INFLUENZA VACCINE (#1) [facility] Test 12:15:17 [code = INFLUENZA VACCINE (#1)] Future Scheduled 2022-12-17 Screening for [facility] Test 10:45:53 malignant neoplasm of colon (procedure) [code = 190156117] Future Scheduled 2022-12-17 Screening for [facility] Test 10:45:53 malignant neoplasm of colon (procedure) [code = 028235233] Future Scheduled 2022-12-17 Screening for [facility] Test 10:45:53 malignant neoplasm of colon (procedure) [code = 642589149] Future Scheduled 2022-12-17 Hepatitis C screening [facility] Test 10:45:53 (procedure) [code = 305232734] Future Scheduled 2022-12-17 Screening for [facility] Test 10:45:53 malignant neoplasm of colon (procedure) [code = 348027232] Future Scheduled 2022-12-17 Screening for [facility] Test 10:45:53 malignant neoplasm of colon (procedure) [code = 326913544] Future Scheduled 2022-12-17 SHINGLES VACCINES (1 Met [facility] Test 10:45:53 of 2) [code = SHINGLES VACCINES (1 of 2)] Future Scheduled 2022-12-17 HEPATITIS B VACCINES Met [facility] Test 10:45:53 (3 of 3 - Hep B Twinrix risk 3-dose series) [code = HEPATITIS B VACCINES (3 of 3 - Hep B Twinrix risk 3-dose series)] Future Scheduled 2022-12-17 65+ PNEUMOCOCCAL [facility] Test 10:45:53 VACCINE (3 - PPSV23 or PCV20) [code = 65+ PNEUMOCOCCAL VACCINE (3 - PPSV23 or PCV20)] Future Scheduled 2022-12-17 COVID-19 VACCINE (4 - [facility] Test 10:45:53 Moderna series) [code = COVID-19 VACCINE (4 - Moderna series)] Future Scheduled 2022-12-17 INFLUENZA VACCINE (#1) [facility] Test 10:45:53 [code = INFLUENZA VACCINE (#1)] Future Scheduled 2022-08-22 Screening for [facility] Test 12:07:45 malignant neoplasm of colon (procedure) [code = 693086426] Future Scheduled 2022-08-22 Screening for [facility] Test 12:07:45 malignant neoplasm of colon (procedure) [code = 177505624] Future Scheduled 2022-08-22 Screening for [facility] Test 12:07:45 malignant neoplasm of colon (procedure) [code = 403049295] Future Scheduled 2022-08-22 Hepatitis C screening [facility] Test 12:07:45 (procedure) [code = 831413293] Future Scheduled 2022-08-22 Screening for [facility] Test 12:07:45 malignant neoplasm of colon (procedure) [code = 083214075] Future Scheduled 2022-08-22 Screening for [facility] Test 12:07:45 malignant neoplasm of colon (procedure) [code = 824716609] Future Scheduled 2022-08-22 SHINGLES VACCINES (1 Met [facility] Test 12:07:45 of 2) [code = SHINGLES VACCINES (1 of 2)] Future Scheduled 2022-08-22 HEPATITIS B VACCINES Met [facility] Test 12:07:45 (3 of 3 - Hep B Twinrix risk 3-dose series) [code = HEPATITIS B VACCINES (3 of 3 - Hep B Twinrix risk 3-dose series)] Future Scheduled 2022-08-22 65+ PNEUMOCOCCAL [facility] Test 12:07:45 VACCINE (3 - PPSV23 if available, else PCV20) [code = 65+ PNEUMOCOCCAL VACCINE (3 - PPSV23 if available, else PCV20)] Future Scheduled 2022-08-22 COVID-19 VACCINE (4 - [facility] Test 12:07:45 Moderna series) [code = COVID-19 VACCINE (4 - Moderna series)] Future Scheduled 2022-08-22 INFLUENZA VACCINE [facility] 12:07:45 [code = INFLUENZA VACCINE] Future Scheduled 2022-07-10 COVID[facility] 11:11:20 [code = COVID-19 VACCINE (#1)] Future Scheduled 2022-07-[address] [facility] Test 11:11:20 (procedure) [code = 192902955] Future Scheduled 2022-07-[address] [facility] Test 11:11:20 [code = COLONOSCOPY SCREENING] Future Scheduled 2022-07-10 SHINGLES VACCINES (1 Met [facility] Test 11:11:20 of 2) [code = SHINGLES VACCINES (1 of 2)] Future Scheduled 2022-07-10 65+ PNEUMOCOCCAL [facility] Test 11:11:20 VACCINE (1 - PCV) [code = 65+ PNEUMOCOCCAL VACCINE (1 - PCV)] Future Scheduled 2022-07-10 INFLUENZA VACCINE [facility] Test 11:11:20 [code = INFLUENZA VACCINE] Future Scheduled 2022-06-27 COVID-19 VACCINE (#1) [facility] Test 15:22:05 [code = COVID-19 VACCINE (#1)] Future Scheduled 2022-06-27 Hepatitis C screening [facility] Test 15:22:05 (procedure) [code = 079222867] Future Scheduled 2022-06-[address] [facility] Test 15:22:05 [code = COLONOSCOPY SCREENING] Future Scheduled 2022-06-27 SHINGLES VACCINES (1 [facility] Test 15:22:05 of 2) [code = SHINGLES VACCINES (1 of 2)] Future Scheduled 2022-06-27 65+ PNEUMOCOCCAL [facility] Test 15:22:05 VACCINE (1 - PCV) [code = 65+ PNEUMOCOCCAL VACCINE (1 - PCV)] Future Scheduled 2022-06-27 INFLUENZA VACCINE [facility] Test 15:22:05 [code = INFLUENZA VACCINE] Future Scheduled 2022-06-27 COVID-19 VACCINE (#1) [facility] Test 15:22:05 [code = COVID-19 VACCINE (#1)] Future Scheduled 2022-06-[address] [facility] Test 15:22:05 (procedure) [code = [id number]] Future Scheduled 2022-06-27 COLONOSCOPY SCREENING [facility] Test 15:22:05 [code = COLONOSCOPY SCREENING] Future Scheduled 2022-06-27 SHINGLES VACCINES (1 [facility] Test 15:22:05 of 2) [code = [...] Type Clinicians Facility Department ID 2022-12-08 Outpatient [facility] [id number] Common 08:31:01 NEHA 12377 [facility] 2022-06-14 Outpatient [facility] [id number] Common 17:01:00 NEHA 15019 [facility] 2021-01-10 Emergency [facility] [id number] Univers 15:32:35 [facility] 2021-01-10 Emergency [facility] [id number] Univers 13:50:35 [facility] 2022-12-29 2022-12-29 Orders Chen, 1.2.840.1 [id number] 7437 Methodi 00:00:00 00:00:00 Only Danica 84738.1.[address] 3.430.2.7 Hospit a .3.641290 l .8 2022-12-25 2022-12-25 Telephone Chen, 1.2.840.1 [id number] 2100 755876 Methodi 00:00:00 00:00:[address] 3.430.2.7 Hospit a .3.067056 l .8 2022-12-22 2022-12-22 Orders Chen, 1.2.840.1 101134536 985719 8126 Methodi 00:00:00 00:00:00 Only Danica 32443.1.[address] 3.430.2.7 Hospit a .3.354019 l .8 2022-12-15 2022-12-15 [facility] 2.16.840. 2.16.840.1. [id number] Devoted 17:00:00 18:00:00 Geriatrics [place] 1.060411. 719500.4.6. W4J Medical Provider 4.6.08367 [id number] Initial 65573 Visit 2022-12-15 2022-12-15 Telephone Kassidy, 1.2.840.1 [id number] 2099 405871 Methodi 00:00:00 00:00:[address] 3.430.2.7 Hospit a .3.063581 l .8 2022-12-15 2022-12-15 Orders Gustavo, 1.2.840.1 [id number] 833646 4440 Methodi 00:00:00 00:00:00 Only Danica 59301.1.[address] 3.430.2.7 Hospit a .3.320308 l .8 2022-12-15 2022-12-15 Telephone Kassidy, 1.2.840.1 [id number] 2099 034081 Methodi 00:00:00 00:00:[address] 3.430.2.7 Hospit a .3.948028 l .8 2022-12-15 2022-12-15 Orders Gustavo, 1.2.840.1 [id number] 363114 5966 Methodi 00:00:00 00:00:00 Only Danica 23246.1.[address] 3.430.2.7 Hospit a .3.391614 l .8 2022-12-12 2022-12-12 Telephone Gustavo, 1.2.840.1 [id number] 2100 610370 Methodi 00:00:00 00:00:[address] 3.430.2.7 Hospit a .3.999653 l .8 2022-12-12 2022-12-12 Telephone Gustavo, 1.2.840.1 [id number] 2100 256981 Methodi 00:00:00 00:00:[address] 3.430.2.7 Hospit a .3.390909 l .8 2022-12-08 2022-12-08 Orders Gustavo, 1.2.840.1 [id number] 148297 8004 Methodi 00:00:00 00:00:00 Only Danica 34949.1.[address] 3.430.2.7 Hospit a .3.509428 l .8 2022-12-08 2022-12-08 Orders Gustavo, 1.2.840.1 [id number] 544882 2072 Methodi 00:00:00 00:00:00 Only Danica 82766.1.[address] 3.430.2.7 Hospit a .3.714723 l .8 2022-12-01 2022-12-01 Orders Gustavo, 1.2.840.1 [id number] 513595 6699 Methodi 00:00:00 00:00:00 Only Danica 86481.1.[address] 3.430.2.7 Hospit a .3.941695 l .8 2022-12-01 2022-12-01 Orders Gustavo, 1.2.840.1 [id number] 527249 9580 Methodi 00:00:00 00:00:00 Only Danica 62754.1.[address] 3.430.2.7 Hospit a .3.125836 l .8 2022-11-28 2022-11-28 [facility] 1.2.840.114 82700 4721 Univers 00:00:00 00:00:00 [facility] 350.1.13.10 [place] HANDY 4.2.7.2.686 Oren as OLIVIER?BLEA [phone] [address] MEDICAL OFFICE BUILDING 2022-11-24 2022-11-24 Orders Gustavo, 1.2.840.1 [id number] 238781 0671 Methodi 00:00:00 00:00:00 Only Danica 19207.1.[address] 3.430.2.7 Hospit a .3.050777 l .8 2022-11-24 2022-11-24 Orders Gustavo, 1.2.840.1 [id number] 604980 7592 Methodi 00:00:00 00:00:00 Only Danica 60622.1.[address] 3.430.2.7 Hospit a .3.758163 l .8 2022-11-23 2022-11-23 Office Ahmed, 1.2.840.1 [id number] 506949 0742 Methodi 09:40:00 11:03:36 Visit Waleed 93792.1.[address] 3.430.2.7 Hospit a .3.276981 l .8 2022-11-23 2022-11-23 Office Benignomed, 1.2.840.1 [id number] 136234 5553 Methodi 09:40:00 11:03:36 Visit Maddieeed 29622.1.[address] 3.430.2.7 Hospit a .3.339512 l .8 2022-11-23 2022-11-23 Outpatient [facility] [id number] [address] [place] [address] 00:00:00 00:00:[address] 2022-11-23 2022-11-23 Telephone Gustavo, 1.2.840.1 [id number] 2100 854107 Methodi 00:00:00 00:00:[address] 3.430.2.7 Hospit a .3.905711 l .8 2022-11-23 2022-11-23 Telephone Gustavo, 1.2.840.1 [id number] 2100 199215 Methodi 00:00:00 00:00:[address] 3.430.2.7 Hospit a .3.656864 l .8 2022-11-17 2022-11-17 Orders Gustavo, 1.2.840.1 355431130 285640 0872 Methodi 00:00:00 00:00:00 Only Danica 04729.1.[address] 3.430.2.7 Hospit a .3.701222 l .8 2022-11-17 2022-11-17 Orders Chen, 1.2.840.1 603277431 251640 5437 Methodi 00:00:00 00:00:00 Only Danica 69282.1.[address] 3.430.2.7 Hospit a .3.653566 l .8 2022-11-10 2022-11-10 Orders Gustavo, 1.2.840.1 656691357 988897 2487 Methodi 00:00:00 00:00:00 Only Danica 55734.1.[address] 3.430.2.7 Hospit a .3.283264 l .8 2022-11-10 2022-11-10 Orders Gustavo, 1.2.840.1 [id number] 799582 5333 Methodi 00:00:00 00:00:00 Only Danica 93214.1.[address] 3.430.2.7 Hospit a .3.490761 l .8 2022-11-08 2022-11-08 Telephone Citlaly, 1.2.840.1 827323373 683 9558860 Methodi 00:00:00 00:00:[address] 3.430.2.7 Hospit a .3.112426 l .8 2022-11-08 2022-11-08 Telephone Citlaly, 1.2.840.1 430003025 726 0971513 Methodi 00:00:00 00:00:[address] 3.430.2.7 Hospit a .3.408859 l .8 2022-11-07 2022-11-07 Telephone Chen, 1.2.840.1 [id number] 2099 282434 Methodi 00:00:00 00:00:[address] 3.430.2.7 Hospit a .3.297567 l .8 2022-11-07 2022-11-07 Telephone Chen, 1.2.840.1 [id number] 2099 400640 Methodi 00:00:00 00:00:[address] 3.430.2.7 Hospit a .3.219739 l .8 2022-11-03 2022-11-03 Telephone Ahmed, 1.2.840.1 [id number] 2099 505810 Methodi 00:00:00 00:00:[address] 3.430.2.7 Hospit a .3.388967 l .8 2022-11-03 2022-11-03 Orders Gustavo, 1.2.840.1 [id number] 115907 1483 Methodi 00:00:00 00:00:00 Only Danica 15179.1.[address] 3.430.2.7 Hospit a .3.507630 l .8 2022-11-03 2022-11-03 Telephone Kassidy, 1.2.840.1 [id number] 2099 487929 Methodi 00:00:00 00:00:[address] 3.430.2.7 Hospit a .3.287044 l .8 2022-11-03 2022-11-03 Orders Gustavo, 1.2.840.1 [id number] 865872 1857 Methodi 00:00:00 00:00:00 Only Danica 16245.1.[address] 3.430.2.7 Hospit a .3.107922 l .8 2022-10-31 2022-10-31 Orders Chen, 1.2.840.1 [id number] 553975 8763 Methodi 00:00:00 00:00:00 Only Danica 83602.1.[address] 3.430.2.7 Hospit a .3.765370 l .8 2022-10-31 2022-10-31 Telephone Gustavo, 1.2.840.1 291230189 2100 783141 Methodi 00:00:00 00:00:[address] 3.430.2.7 Hospit a .3.720237 l .8 2022-10-31 2022-10-31 Orders Gustavo, 1.2.840.1 612990834 065493 2740 Methodi 00:00:00 00:00:00 Only Danica 62729.1.[address] 3.430.2.7 Hospit a .3.673917 l .8 2022-10-31 2022-10-31 Telephone Chen, 1.2.840.1 [id number] 2100 887307 Methodi 00:00:00 00:00:[address] 3.430.2.7 Hospit a .3.544510 l .8 2022-10-27 2022-10-27 Orders Chen, 1.2.840.1 [id number] 931793 7320 Methodi 00:00:00 00:00:00 Only Danica 73061.1.[address] 3.430.2.7 Hospit a .3.984571 l .8 2022-10-27 2022-10-27 Orders Gustavo, 1.2.840.1 [id number] 768623 0203 Methodi 00:00:00 00:00:00 Only Danica 56418.1.[address] 3.430.2.7 Hospit a .3.088433 l .8 2022-10-19 2022-10-19 Outpatient Ogbechie_L [facility] 1337 82-202 Devoted 00:00:00 00:00:00 [address] Medica l Group 2022-10-18 2022-10-18 Telephone Gustavo, 1.2.840.1 [id number] 2099 920162 Methodi 00:00:00 00:00:[address] 3.430.2.7 Hospit a .3.621821 l .8 2022-10-18 2022-10-18 Telephone Gustavo, 1.2.840.1 [id number] 2099 894663 Methodi 00:00:00 00:00:[address] 3.430.2.7 Hospit a .3.614276 l .8 2022-10-16 2022-10-16 Orders Gustavo, 1.2.840.1 058738051 494409 0504 Methodi 00:00:00 00:00:00 Only Danica 82349.1.[address] 3.430.2.7 Hospit a .3.300108 l .8 2022-10-16 2022-10-16 Telephone Chen, 1.2.840.1 [id number] 2100 165841 Methodi 00:00:00 00:00:[address] 3.430.2.7 Hospit a .3.444252 l .8 2022-10-16 2022-10-16 Orders Chen, 1.2.840.1 170903835 092841 6771 Methodi 00:00:00 00:00:00 Only Danica 82890.1.[address] 3.430.2.7 Hospit a .3.375522 l .8 2022-10-16 2022-10-16 Telephone Gustavo, 1.2.840.1 [id number] 2099 891403 Methodi 00:00:00 00:00:[address] 3.430.2.7 Hospit a .3.858384 l .8 2022-10-13 2022-10-13 Orders Juvencio, 1.2.840.1 [id number] 421245 8340 Methodi 00:00:00 00:00:00 Only Iris 73167.1.[address] 3.430.2.7 Hospit a .3.557693 l .8 2022-10-13 2022-10-13 Documentat Adonay, 1.2.840.1 774506406 020 7645497 Methodi 00:00:00 00:00:00 ion Ratna A 93290.1.[address] 3.430.2.7 Hospit a .3.122125 l .8 2022-10-13 2022-10-13 Telephone Kassidy, 1.2.840.1 [id number] 2100 282441 Methodi 00:00:00 00:00:[address] Adi 3.430.2.7 Hospit a .3.607347 l .8 2022-10-13 2022-10-13 Orders Juvencio, 1.2.840.1 514997249 601596 1713 Methodi 00:00:00 00:00:00 Only Iris 74698.1.[address] 3.430.2.7 Hospit a .3.647636 l .8 2022-10-13 2022-10-13 Documentat Adonay, 1.2.840.1 [id number] 182 0540541 Methodi 00:00:00 00:00:00 ion Ratna Borges 49933.1.[address] 3.430.2.7 Hospit a .3.937510 l .8 2022-10-13 2022-10-13 Telephone wm, 1.2.840.1 766348914 2100 055693 Methodi 00:00:00 00:00:[address] Adi 3.430.2.7 Hospit a .3.392650 l .8 2022-10-12 2022-10-12 Telephone Citlaly, 1.2.840.1 [id number] 135 2568213 Methodi 00:00:00 00:00:[address] 3.430.2.7 Hospit a .3.530826 l .8 2022-10-12 2022-10-12 Telephone Citlaly, 1.2.840.1 [id number] 055 6651017 Methodi 00:00:00 00:00:[address] 3.430.2.7 Hospit a .3.935418 l .8 2022-10-02 2022-10-02 Office Ahmed, 1.2.840.1 655350303 234511 1103 Methodi 14:00:00 14:28:59 Visit Waleed 80099.1.[address] 3.430.2.7 Hospit a .3.520488 l .8 2022-10-02 2022-10-02 Office Ahmed, 1.2.840.1 [id number] 271598 6472 Methodi 14:00:00 14:28:59 Visit Waleed 18172.1.[address] 3.430.2.7 Hospit a .3.056044 l .8 2022-10-02 2022-10-[address] [facility] 1.2.840.114 45616 0566 Univers 00:00:00 00:00:00 [facility] 350.1.13.10 [place] HANDY 4.2.7.2.686 Oren as OLIVIER?BLEA [id number] [address] MEDICAL OFFICE [facility] 2022-09-20 2022-09-20 [facility], 1.2.840.1 [id number] 111 [id number] Methodi 14:25:52 23:59:00 Encounter Jac JulesMaria A 06549.1.[address] 3.430.2.7 Hospit a .3.084145 l .8 2022-09-20 2022-09-20 [facility], 1.2.840.1 [id number] 316 1563184 Methodi 14:25:52 23:59:00 Encounter Jac Walker 25960.1.[address] 3.430.2.7 Hospit a .3.888502 l .8 2022-09-20 2022-09-20 [facility], 1.2.840.1 [id number] 859 8891297 Methodi 09:16:17 14:24:00 Encounter Jac Walker 67542.1.[address] 3.430.2.7 Hospit a .3.020244 l .8 2022-09-20 2022-09-20 [facility], 1.2.840.1 [id number] 463 7337667 Methodi 09:16:17 14:24:00 Encounter Jac Walker 05554.1.[address] 3.430.2.7 Hospit a .3.073337 l .8 2022-09-14 2022-09-14 Outpatient Florence [facility] [id number] 440 Univers 15:30:00 15:30:00 JOON goetz [facility] 2022-09-11 2022-09-13 Office Marshall 1.2.840.1 [id number] 109382 3519 Methodi 15:00:00 15:46:36 Visit Olimpia 36203.1.[address] Maliea 3.430.2.7 Hospit a .3.613631 l .8 2022-09-11 2022-09-13 Office Marshall, 1.2.840.1 [id number] 080725 7728 Methodi 15:00:00 15:46:36 Visit Olimpia 86031.1.[address] Maliea 3.430.2.7 Hospit a .3.411649 l .8 2022-09-13 2022-09-13 Telephone Ender, 1.2.840.1 [id number] 21 [id number] Methodi 00:00:00 00:00:[address] 3.430.2.7 Hospit a .3.124672 l .8 2022-09-13 2022-09-13 Telephone Ender, 1.2.840.1 343735000 90022541 Methodi 00:00:00 00:00:[address] 3.430.2.7 Hospit a .3.103447 l .8 2022-08-25 2022-08-25 Transcribe Edith, 1.2.840.1 [id number] 2 [id number] Methodi 00:00:00 00:00:00 Orders Jac F. 22466.1.[address] 3.430.2.7 Hospit a .3.266461 l .8 2022-08-25 2022-08-25 Transcribe Edith, 1.2.840.1 [id number] 2 [id number] Methodi 00:00:00 00:00:00 Orders Chesterfield F. 31431.1.[address] 3.430.2.7 Hospit a .3.296555 l .8 2022-08-23 2022-08-23 Transcribe Quang, 1.2.840.1 [id number] 791 [id number] Methodi 00:00:00 00:00:00 Orders Jackie 57010.1.[address] 3.430.2.7 Hospit a .3.827442 l .8 2022-08-23 2022-08-23 Transcribe Quang, 1.2.840.1 052159710 919 2924283 Methodi 00:00:00 00:00:00 Orders Jackie 74772.1.[address] 3.430.2.7 Hospit a .3.638447 l .8 2022-08-22 2022-08-22 Telephone Citlaly, 1.2.840.1 [id number] 403 3206827 Methodi 00:00:00 00:00:[address] 3.430.2.7 Hospit a .3.200068 l .8 2022-08-22 2022-08-22 Telephone Citlaly, 1.2.840.1 [id number] 121 3687287 Methodi 00:00:00 00:00:[address] 3.430.2.7 Hospit a .3.810799 l .8 2022-08-21 2022-08-21 Telephone Rashaad, 1.2.840.1 970430353 945 3994502 Methodi 00:00:00 00:00:[address] 3.430.2.7 Hospit a .3.738844 l .8 2022-08-21 2022-08-21 Telephone Rashaad, 1.2.840.1 [id number] 837 3194701 Methodi 00:00:00 00:00:[address] 3.430.2.7 Hospit a .3.672447 l .8 2022-08-21 2022-08-21 Telephone Ahmed, 1.2.840.1 [id number] 2100 698563 Methodi 00:00:00 00:00:[address] 3.430.2.7 Hospit a .3.190568 l .8 2022-08-21 2022-08-21 Telephone Rashaad, 1.2.840.1 [id number] 900 9404995 Methodi 00:00:00 00:00:[address] 3.430.2.7 Hospit a .3.443300 l .8 2022-08-21 2022-08-21 Telephone Rashaad, 1.2.840.1 [id number] 091 9740391 Methodi 00:00:00 00:00:[address] 3.430.2.7 Hospit a .3.925315 l .8 2022-08-21 2022-08-21 Telephone Kassidy, 1.2.840.1 [id number] 2099 484781 Methodi 00:00:00 00:00:[address] 3.430.2.7 Hospit a .3.425669 l .8 2022-08-09 2022-08-09 Office Basilio Aguayo 1.2.840.1 [id number] 21 [id number] Methodi 13:00:00 14:28:[address] 36740.1.[address] 3.430.2.7 Hospit a .3.057427 l .8 2022-08-09 2022-08-09 Office Basilio Aguayo 1.2.840.1 [id number] 21 [id number] Methodi 13:00:00 14:28:[address]42.1.[address] 3.430.2.7 Hospit a .3.116929 l .8 2022-08-09 2022-08-09 [facility] [id number] 316 [place] 00:00:00 00:00:[address] 2022-08-09 2022-08-09 Travel 1.2.840.1 1.2.053.895 0791 948831 Methodi 00:00:00 00:00:[address] 3.430.2.7 0.2.7.3.698 Ho spita .3.291332 084.8 l .8 2022-08-09 2022-08-09 Travel 1.2.840.1 1.2.934.628 1660 195905 Methodi 00:00:00 00:00:[address] 3.430.2.7 0.2.7.3.698 Ho spita .3.767290 084.8 l .8 2022-07-31 2022-07-31 Office Benignomed, 1.2.840.1 035344701 422978 4368 Methodi 14:00:00 16:14:15 Visit Janay 71437.1.[address] 3.430.2.7 Hospit a .3.005758 l .8 2022-07-31 2022-07-31 Office Ahmed, 1.2.840.1 [id number] 177091 2707 Methodi 14:00:00 16:14:15 Visit Janay 80784.1.[address] 3.430.2.7 Hospit a .3.090638 l .8 2022-07-31 2022-07-31 Travel 1.2.840.1 1.2.677.925 7391 193802 Methodi 00:00:00 00:00:[address] 3.430.2.7 0.2.7.3.698 Ho spita .3.124961 084.8 l .8 2022-07-31 2022-07-31 Travel 1.2.840.1 1.2.409.048 5217 359765 Methodi 00:00:00 00:00:[address] 3.430.2.7 0.2.7.3.698 Ho spita .3.384524 084.8 l .8 2022-07-27 2022-07-27 Mateo Gonsalez [facility] 1.2.840.114 79038 5454 Univers 00:00:00 00:00:00 [facility] 350.1.13.10 [place] 4.2.7.2.686 Oren as OLIVIER?BLEA [id number] Ia paulette [address] MEDICAL OFFICE BUILDING 2022-07-25 2022-07-25 Nery Rubin 2.16.840. 2.16.840.1. CLAC [id number] Devoted 13:30:00 14:00:00 Hiren Erwin 1.654329. 350632.4.6. 2R5 Medical 4.6.28999 [id number] 02519 2022-07-20 2022-07-20 Orders Doctor TOO 1.2.840.114 825089 101 Univers 00:00:00 00:00:00 Only Unassigned, CADE 350.1.13.10 ity of [place] 4.2.7.2.686 Oren as [id number] [address] 2022-07-15 2022-07-15 Outpatient Ogbechie_L [facility] 1337 -202 Devoted 00:00:00 00:00:00 [address] Medica l Group 2022-07-07 2022-07-07 SOVALDO Visit Sandra 2.16.840. 2.16.840.1. CL [id number] Devoted 15:30:00 16:30:00 Caclindsay 1.497826. 430138.4.6. 7JF Medical 4.6.25062 [id number] 78368 2022-07-06 2022-07-[address] [facility] 1.2.840.114 988083 997 Univers 00:00:00 00:00:00 LissTelunjuk 350.1.13.10 it y of [place] 4.2.7.2.686 Oren as OLIVIER?BLEA [id number] [address] MEDICAL OFFICE BUILDING 2022-07-04 2022-07-04 Orders Doctor TOO 1.2.840.114 [id number] 563 Univers 00:00:00 00:00:00 Only Unassigned, CADE 350.1.13.10 ity of [place] [facility] 4.2.7.2.686 Oren as [id number] [address] 2022-06-26 2022-06-[address] [facility] 1.2.840.114 339043 405 Univers 00:00:00 00:00:00 Luis [place] 350.1.13.10 i ty [place] [id number] Ia dical NAL 059 [facility] 2022-06-21 2022-06-[address] [facility] 1.2.840.114 [id number] 017 Univers 00:00:00 00:00:00 Joon HANDY 350.1.13.10 [facility] [place] [phone] Ia dical NAL 9 [facility] 2022-06-15 2022-06-15 Telephone Ahmed, 1.2.840.1 [id number] [id number] Methodi 00:00:00 00:00:[address] 3.430.2.7 Hospit a .3.073667 l .8 2022-06-15 2022-06-15 Transcribe Quang, 1.2.840.1 [id number] [id number] Methodi 00:00:00 00:00:00 Orders Jackie 14910.1.[address] 3.430.2.7 Hospit a .3.057526 l .8 2022-06-15 2022-06-15 Transcribe Quang, 1.2.840.1 [id number] Methodi 00:00:00 00:00:00 Orders Jackie 48741.1.[address] 3.430.2.7 Hospit a .3.441588 l .8 2022-06-15 2022-06-15 Telephone Ahmed, 1.2.840.1 [id number] 2099 [id number] Methodi 00:00:00 00:00:[address] 3.430.2.7 Hospit a .3.279601 l .8 2022-06-15 2022-06-15 Transcribe Quang, 1.2.840.1 [id number] Methodi 00:00:00 00:00:00 Orders Jackie 44309.1.[address] 3.430.2.7 Hospit a .3.692748 l .8 2022-06-15 2022-06-15 Transcribe Quang, 1.2.840.1 [id number] 859 [id number] Methodi 00:00:00 00:00:00 Orders Jackie 41090.1.[address] 3.430.2.7 Hospit a .3.460578 l .8 2022-06-12 2022-06-12 Telephone Basilio Aguayo 1.2.840.1 [id number] Methodi 00:00:00 00:00:[address] 3.430.2.7 Hospit a .3.387339 l .8 2022-06-12 2022-06-12 Telephone Basilio Aguayo 1.2.840.1 [id number] Methodi 00:00:00 00:00:[address] 3.430.2.7 Hospit a .3.934303 l .8 2022-06-12 2022-06-12 [facility] 1.2.840.114 [id number] Univers 00:00:00 00:00:00 [place] [address].1.13.10 it y of [place] 4.2.7.2.686 Oren as OLIVIER?BLEA [phone] [address] 2022-06-08 2022-06-08 [facility] 1.2.840.114 101 [id number] Univers 00:00:00 00:00:00 [place] [address].1.13.10 it y of [place] 4.2.7.2.686 Oren as OLIVIER?BLEA [id number] [address] 2022-05-29 2022-05-29 [facility] 1.2.840.114 [id number] Univers 00:00:00 00:00:00 [place] [address].1.13.10 it y of [place] 4.2.7.2.686 Oren as OLIVIER?BLEA [phone] [address] OFFICE [facility] 2022-05-26 2022-05-26 [facility] 1.2.840.114 [id number] Univers 00:00:00 00:00:00 Sendil RaghuMaria ALambertoMaria A OLE 350.1.13.10 ity of [facility] 4[place] [phone] [facility] Cam9 [facility] 2022-05-26 2022-05-26 [facility] 1.2.840.114 [id number] Univers 00:00:00 00:00:00 [facility] 350.1.13.10 it y of [facility] 4.2.7.2.686 Oren as OLIVIER?BLEA [id number] [address] 2022-05-05 2022-05-05 [facility] 1.2.840.114 [id number] Univers 00:00:00 00:00:00 [facility] 350.1.13.10 it y of [place] [facility] 4.2.7.2.686 Oren as OLIVIER?BLEA [phone] [address] 2022-04-17 2022-04-17 [facility] 1.2.840.114 100 [id number] Univers 00:00:00 00:00:00 [facility] 350.1.13.10 it y of [place] [facility] 4.2.7.2.686 Oren as OLIVIER?BLEA [phone] [address] OFFICE [facility] 2022-04-15 2022-04-15 Orders Doctor TOO 1.2.840.114 [id number] Univers 00:00:00 00:00:00 Only Unassigned, CADE 350.1.13.10 ity of [place] [facility] 4.2.7.2.686 Oren as [phone] [address] 2022-04-14 2022-04-14 Outpatient Ogbechie_L DMG DMG 1337 82-202 Devoted 00:00:00 00:00:00 [address] [facility] 2022-04-11 2022-04-11 [facility] 1.2.840.114 100 [id number] Univers 00:00:00 00:00:00 [facility] 350.1.13.10 ity of [place] 4.2.7.2.686 Oren as OLIVIER?BLEA [id number] [address] 2022-04-10 2022-04-10 Outpatient R [facility]IE [facility] [id number] Univers 00:00:00 23:59:00 CATIE HILL ity of [facility] 2022-04-10 2022-04-10 [facility] JEFF Hill 1.2.840.114 10 [id number] Univers 00:00:00 23:59:00 [facility] Estefanía MOHAMUD 350.1.13.10 ity of [facility] 4.2.7.2.686 Oren as [phone] [address] 2022-04-07 2022-04-07 Telephone [facility] 1.2.840.114 100 [id number] Univers 00:00:00 00:00:00 [facility] 350.1.13.10 ity of [place] 4.2.7.2.686 Oren as OLIVIER?BLEA [phone] [address] 2022-03-31 2022-03-31 [facility] [id number] Univers 10:40:00 10:40:00 LUIS ity [facility] 2022-03-31 2022-03-31 [facility] [id number] Univers 09:40:00 09:40:00 LUIS ity [facility] 2022-03-31 2022-03-31 Outpatient [facility] [id number] Univers 09:40:00 09:40:00 LUIS ity [facility] 2022-03-29 2022-03-29 [facility]oe [facility] 1.2.840.114 [id number] Univers 00:00:00 00:00:00 Joon HANDY 350.1.13.10 ity [place] [id number] Ia paulette HANDLEY 059 [facility] 2022-03-28 2022-03-28 [facility] 1.2.840.114 [id number] Univers 00:00:00 00:00:00 [facility] 350.1.13.10 it y of [place] 4.2.7.2.686 Oren as OLIVIER?BLEA [id number] [facility] ELAM [address] [place] [address] MEDICAL OFFICE [facility] 2022-03-25 2022-03-25 [facility] 1.2.840.114 [id number] Univers 00:00:00 00:00:00 [facility] 350.1.13.10 it y of [place] [facility] 4.2.7.2.686 Oren as OLIVIER?BLEA [phone] [address] OFFICE [facility] 2022-03-24 2022-03-24 Outpatient R [facility] [id number] Univers 09:00:00 09:00:00 SENDIL ity of [facility] 2022-03-17 2022-03-17 Telephone Carl R. [facility] 1.2.840.114 [id number] Univers 00:00:00 00:00:00 [facility] 350.1.13.10 it y of [place] [facility] 4.2.7.2.686 Oren as OLIVIER?BLEA [phone] [address] MEDICAL OFFICE [facility] 2022-03-14 2022-03-14 Orders Doctor TOO 1.2.840.114 [id number] Univers 00:00:00 00:00:00 Only Unassigned, CADE 350.1.13.10 ity of [place] [facility] 4.2.7.2.686 Oren as [phone] [address] 2022-03-11 2022-03-11 Refill [facility] 1.2.840.114 [id number] Univers 00:00:00 00:00:00 Sendil Lauren HANDY 350.1.13.10 ity [facility] [place].2.[place].2.[place] [phone] Ia dical NAL 059 [facility] 2022-03-10 2022-03-10 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 1.2.840.114 [id number] Univers 10:15:00 10:30:00 Visit Joon Woody 350.1.13. 10 ity of [place] [phone] Ia dical NAL 353 [facility] 2022-03-10 2022-03-10 [facility] [id number] Univers 10:15:00 10:15:00 SENDIL ity [facility] 2022-03-02 2022-03-02 Outpatient [facility] [id number] Univers 15:30:00 16:02:47 SENDIL itapril [facility] 2022-03-02 2022-03-02 Office [facility] 1.2.840.114 [id number] Univers 15:30:00 16:02:47 Visit Joon HANDY 350.1.13.10 ity [facility] 4.[place] [phone] Ia dicme NAL 9 [facility] 2022-02-24 2022-02-24 Telephone [facility] 1.2.472.839 [id number] [facility] 00:00:00 00:00:00 Joon HANDY 350.1.13.10 ity of [place].2.[place] [phone] Ia dical NAL 059 [facility] 2022-02-23 2022-02-23 Office [facility] 1.2.840.114 [id number] Univers 14:40:00 14:50:00 Visit Joon HANDY 350.1.13.10 ity of [place] 4.2.7.2.[place] [id number] Ia dical NAL 059 [facility] 2022-02-23 2022-02-23 Outpatient R ANNALISE [facility] [id number] Univers 14:40:00 14:40:00 SENDIL [facility] 2022-02-22 2022-02-22 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 1.2.840.114 [id number] Univers 09:00:00 13:02:50 Visit Joon Woody RaghuMaria ALambertoMaria A HANDY 350.1.13. 10 ity of [place].7.2.[place] [phone] Ia seliname NAL 353 [facility] 2022-02-22 2022-02-22 Office [facility] 1.2.840.114 [id number] Univers 10:00:00 10:16:55 Visit [facility] 350.1.13.10 it y of [place] [facility] 4.2.7.2.686 Oren as OLIVIER?BLEA [phone] [facility] 044 [facility] OFFICE [facility] 2022-02-22 2022-02-22 Outpatient R SUNSHINE [facility] [id number] Univers 10:00:00 10:00:00 JOSE JUAN [facility] 2022-02-22 2022-02-22 Refbrittani GonsalezDZILTH[facility] 1.2.840.114 [id number] Univers 00:00:00 00:00:00 [facility] 350.1.13.10 it y of [place] [facility] 4.2.7.2.686 Oren as OLIVIER?BLEA [phone] [facility] 044 [facility] OFFICE [facility] 2022-02-22 2022-02-[address] [facility] 1.2.840.114 [id number] Univers 00:00:00 00:00:00 [facility] 350.1.13.10 ity of [place] 4.2.7.2.686 Oren as OLIVIER?BLEA [phone] [facility] 092 [facility] OFFICE [facility] 2022-02-14 2022-02-14 Outpatient R ANNALISE [facility] [id number] Univers 15:00:00 [facility]22-02-14 Office [facility] 1.2.840.114 [id number] Univers 15:00:00 17:08:32 Visit Joon HANDY 350.1.13.10 ity of [place].2.[place] [phone] Ia dical NAL 059 [facility] 2022-02-14 2022-02-14 Telephone TOO Woody 1.2.575.102 [id number] Univers 00:00:00 00:00:00 Sendsissy MOHAMUD 350.1.13.10 ity [facility] 4.2.7.2.686 Oren as [phone] [address] 2022-02-10 2022-02-10 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 1.2.840.114 [id number] Univers 10:30:00 10:45:00 Visit Joon Woody 350.1.13. 10 ity [facility] 4.2.7.2.[place] [phone] [facility] 353 [facility] 2022-02-10 2022-02-10 Outpatient R [facility] [id number] Univers 10:30:00 10:30:00 SENDSISSY goetz [facility] 2022-02-08 2022-02-08 Refill [facility] 1.2.840.114 [id number] Univers 00:00:00 00:00:00 Joon HANDY 350.1.13.10 ity [facility] 4.2.7.2.[place] [phone] Ia dical NAL 059 [facility] 2022-02-06 2022-02-06 Outpatient R SUNSHINE [facility] [id number] Univers 11:37:54 23:59:00 JOSE JUAN goetz [facility] 2022-02-06 2022-02-06 Office [facility] 1.2.840.114 [id number] Univers 11:15:00 11:30:00 Visit [facility] 350.1.13.10 it y of [place] 4.2.7.2.686 Oren as OLIVIER?BLEA [phone] [address] OFFICE [facility] 2022-02-06 2022-02-06 Refill [facility] 1.2.840.114 [id number] Univers 00:00:00 00:00:00 Sendsissy HANDY 350.1.13.10 ity of [place].2.[place] [phone] [address] 2022-02-01 2022-02-01 Office [facility] 1.2.840.114 [id number] Univers 11:00:00 11:24:25 Visit [facility] 350.1.13.10 it y of [facility] 4.2.7.2.686 Oren as OLIVIER?BLEA [phone] [address] OFFICE [facility] 2022-02-01 2022-02-01 Outpatient R [facility] [id number] Univers 11:00:00 11:00:00 JOSE JUAN [facility] 2022-01-30 2022-01-30 Office [facility] 1.2.840.114 [id number] Univers 15:30:00 15:30:00 Visit Joon HANDY 350.1.13.10 ity [facility] 4.2.7.2.[place] [phone] [address] 2022-01-30 2022-01-30 Outpatient R [facility] [id number] Univers 15:30:00 11:13:29 [facility]22-[facility]-29 2022-01-29 Refill [facility] 1.2.840.114 [id number] Univers 00:00:00 00:00:00 Joon HANDY 350.1.13.10 ity of [place] 4[place].2.[place] [phone] [address] 2022-01-26 2022-01-26 Emergency [facility] 1.2.542.938 [id number] Univers 19:12:00 20:51:00 Jessica OLE 350.1.13.10 i ty of [place]2.7.2.[place] [id number] [facility] [address] 2022-01-26 2022-01-26 Outpatient R RADIOLOGY [facility] [id number] Univers 12:37:52 19:11:00 ity of [facility] 2022-01-26 2022-01-[address] [facility] 1.2.840.114 [id number] Univers 12:37:52 19:11:00 Encounter OLE 350.1.13.10 ity of [place]2.7.2.[place] [id number] [facility] [address] 2022-01-26 2022-01-26 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 1.2.840.114 [id number] Univers 13:15:00 13:30:00 Visit Joon Woody 350.1.13. 10 ity of [place].2.[place] [phone] Ia dical NAL 353 [facility] 2022-01-26 2022-01-26 Outpatient R RADIOLOGY [facility] ERT [id number] Univers 00:00:00 00:00:00 ity of [facility] 2022-01-26 2022-01-26 Telephone TOO Reinoso 1.2.525.630 [id number] Univers 00:00:00 00:00:00 Fercho MOHAMUD 350.1.13.[address] [facility] 4.2.7.2.686 Oren as [phone] [facility] [address] 2022-01-26 2022-01-26 Telephone [facility] 1.2.563.465 [id number] Univers 00:00:00 00:00:00 Joon HANDY 350.1.13.10 ity of [place] [phone] Ia dical NAL 059 [facility] 2022-01-20 2022-01-20 Telephone RomanDZ[facility] 1.2.170.390 [id number] Univers 00:00:00 00:00:00 Gus HANDY 350.1.13.10 ity of [place] 4[place]2.7.2.[place] [phone] Ia dicmaryellen HANDLEY 059 [facility] 2022-01-19 2022-01-19 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 1.2.840.114 [id number] Univers 13:15:00 13:30:00 Visit Gus Owens 350.1.13.10 ity of [place] 4[place].7.2.[place] [id number] Ia dicmaryellen NAL 353 [facility] 2022-01-19 2022-01-19 Outpatient R ROMAN [facility] [id number] Univers 13:15:00 13:15:00 MARJSHAUNNA ity o f [facility] 2022-01-12 2022-01-12 Mateo GonsalezDZILTH[facility] 1.2.840.114 [id number] Univers 00:00:00 00:00:00 [facility] 350.1.13.10 it y of [place] [facility] 4.2.7.2.686 Oren as OLIVIER?BLEA [phone] Ia paulette RIVERAEY 044 [facility] OFFICE [facility] 2022-01-06 2022-01-06 Outpatient R ADITYA [facility] [id number] Univers 09:40:00 09:40:00 LUIS ity [facility] 2022-01-05 2022-01-05 Outpatient [facility] [id number] Univers 08:00:00 23:59:00 LUIS ity of [facility] 2022-01-05 2022-01-05 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 1.2.840.114 [id number] Univers 10:45:00 11:00:00 Visit Luis Burgess 350.1.13.10 ity of [place].2.[place] [phone] Ia dical EMMANUELLE 353 [facility] 2022-01-05 2022-01-05 Office [facility]aD[facility] 1.2.840.114 [id number] Univers 09:40:00 10:41:23 Visit Luis [place] 350.1.13.10 i ty of [place] 4.2.7.2.[place] [phone] Ia dical NAL 059 [facility] 2022-01-05 2022-01-05 Telephone RomanD[facility] 1.2.000.160 [id number] Univers 00:00:00 00:00:00 Gus OLE 350.1.13.10 ity of [place] 4.2.7.2.[place] [phone] Ia dical NAL 059 [facility] 2021-12-30 2021-12-30 Outpatient DMG [facility] [id number] Devoted 00:00:00 00:00:00 [id number] [facility] l [facility] 2021-12-22 2021-12-22 Telephone [facility] 1.2.702.205 [id number] Univers 00:00:00 00:00:00 Joon HANDY 350.1.13.10 ity of [place].2.[place] [phone] Ia dical NAL 059 [facility] 2021-12-21 2021-12-21 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 1.2.840.114 [id number] Univers 10:00:00 10:37:48 Visit Joon Woody 350.1.13. 10 ity of [place] 4.[place].7.2.[place] [phone] Ia dicmaryellen HANDLEY 353 [facility] 2021-12-21 2021-12-21 Outpatient R ANNALISE [facility] [id number] Univers 10:00:00 10:00:00 SENDIL ity of [facility] 2021-12-08 2021-12-08 Office [facility] 1.2.840.114 [id number] Univers 14:30:00 15:00:00 Visit Gera Oliver [facility] 350.1.13.10 i ty of [place].2.[place] C[place] - [phone] [facility] [address] 2021-12-08 2021-12-08 Outpatient R PETE [facility] [id number] Univers 14:30:00 14:30:00 GERA goetz [facility] 2021-12-01 2021-12-01 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 1.2.840.114 [id number] Univers 10:45:00 10:55:17 Visit Joon Woody 350.1.13. 10 it[place] of [place].2.686 [place] [facility] [phone] Ia dical NAL 353 [facility] 2021-12-01 2021-12-01 Outpatient R [facility] [id number] Univers 10:00:00 10:41:44 JOON goetz [facility] 2021-12-01 2021-12-01 Office [facility] 1..840.114 [id number] Univers 10:00:00 10:41:44 Visit Joon HANDY 350.1.13.10 ity of [place] 4[place].7.2.686 [place] [facility] [phone] Ia dical NAL 059 [facility] 2021-12-01 2021-12-01 Outpatient R [facility] [id number] Univers 10:00:00 10:00:00 JOON goetz [facility] 2021-11-25 2021-11-25 Outpatient R HALE [facility] [id number] Univers 14:00:00 14:00:00 SCOTTIE goetz [facility] 2021-11-24 2021-11-25 Emergency [facility] 1.2.840.114 [id number] Univers 20:21:00 01:33:00 Val HANDY 350.1.13.10 ity of [place].2.686 [place] [phone] [facility] [address] 2021-11-25 2021-11-25 Patient [facility] 1.2.840.114 [id number] Univers 00:00:00 00:00:00 Secure [facility] 350.1.13.10 ity of [place] 4.2.7.2.686 Oren as OLIVIER?BLEA [phone] Ia paulette ELAM [address] [place] [address] OFFICE BUILDING 2021-11-25 2021-11-[address] [facility] 1.2.996.786 [id number] Univers 00:00:00 00:00:00 Calvin Ecrio 350.1.13.10 ity of [place].2.[place] [phone] [address] OFFICE BUILDING 2021-11-24 2021-11-24 Tuber Machine Operator Helper Simba, Clc-Bls Lab [facility] 1.2.8 40.114 [id number] Univers 11:30:00 11:45:00 Visit Calvin Flores MehreenFormerly [facility] 350.1.13.10 ity of [place] [phone] [address] OFFICE BUILDING 2021-11-24 2021-11-24 Outpatient [facility] [id number] Univers 11:30:00 11:30:00 [facility] 2021-11-24 2021-11-24 Office [facility] 1.2.840.114 [id number] Univers 10:00:00 10:40:00 Visit Calvin MehreenFormerly [facility] 350.1.13.10 [place]2.[place] [phone] [address] OFFICE [facility] 2021-11-24 2021-11-24 Outpatient R [facility] [id number] Univers 10:00:00 10:00:00 ity [facility] 2021-11-24 2021-11-24 [facility]patient [facility] [id number] Univers 10:00:00 10:00:00 CALVIN [facility] 2021-11-24 2021-11-24 Outpatient R [facility] ERT [id number] Univers 10:00:00 10:00:00 CALVIN [facility] 2021-11-24 2021-11-24 Telephone Lorraine Galarza 1.2.840.114 [id number] Univers 00:00:00 00:00:00 CADE 350.1.13.10 it y of [facility] 4.2.7.2.686 Oren as [phone] [address] 2021-11-23 2021-11-23 Office [facility] 1.2.840.114 [id number] Univers 15:15:00 15:30:00 Visit [facility] 350.1.13.10 it y of [place] 4.2.7.2.686 Oren as OLIVIER?BLEA [phone] Ia dical KNEY 044 [facility] OFFICE [facility] 2021-11-23 2021-11-23 Outpatient R [facility] [id number] Univers 15:15:00 15:15:00 JOSE JUAN [facility] 2021-11-22 2021-11-22 Outpatient R [facility] [id number] Univers 13:30:00 13:30:00 HANNAH [facility] 2021-11-21 2021-11-21 Outpatient R [facility] [id number] Univers 14:00:00 14:00:00 SCOTTIE [facility] 2021-11-14 2021-11-14 Patient [facility] 1.2.840.114 [id number] Univers 00:00:00 00:00:00 Secure Msg Joon HANDY 350.1.13.10 ity [facility] [place].2.7.2.[place] [phone] Ia dicmaryellen NAL 059 [facility] 2021-11-11 2021-11-11 Outpatient R [facility] [id number] Univers 13:00:00 15:09:30 SENDIL [facility] 2021-11-11 2021-11-11 Office [facility] 1.2.840.114 [id number] Univers 13:00:00 15:09:30 Visit Joon HANDY 350.1.13.10 ity [facility] 4.2.7.2.[place] [phone] Ia dical NAL 059 [facility] 2021-11-11 2021-11-11 Outpatient R [facility] [id number] Univers 08:20:00 08:20:00 LUIS ity [facility] 2021-11-10 2021-11-10 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 1.2.840.114 [id number] Univers 13:15:00 13:30:00 Visit Joon Woody 350.1.13. 10 ity of [place] 4[place].7.2.[place] [id number] Ia dical NAL [address] BUILDING 2021-11-10 2021-11-10 Outpatient R [facility] [id number] Univers 13:15:00 13:15:00 [facility] 2021-11-03 2021-11-03 Outpatient R [facility] [id number] Univers 09:20:00 09:20:00 ity [facility] 2021-10-28 2021-10-28 Outpatient R SUNSHINE [facility] [id number] Univers 14:00:00 14:00:00 [facility] 2021-10-28 2021-10-[address] [facility] 1.2.840.114 [id number] Univers 00:00:00 00:00:00 Secure Msg Unassigned, [facility] 350.1.13.10 ity of [place].2.[place] [id number] [address] OFFICE BUILDING 2021-10-24 2021-10-24 Outpatient R JUVENCIO LUNA [facility] [id number] Univers 11:20:00 12:02:42 [facility]UVENCIO [facility] 2021-10-24 2021-10-[address] [facility] 1.2.840.114 [id number] Univers 11:20:00 12:02:42 Visit Juvencio [facility] 350.1.13.10 ity of [place] 4.2.7.2.686 Oren as OLIVIER?BLEA [phone] Ia dical KNEY [address] MEDICAL OFFICE BUILDING 2021-10-21 2021-10-21 Patient Morgan Mac [facility] 1.2.127.668 [id number] Univers 00:00:00 00:00:00 Secure Msg [place] [facility] 350.1.13.10 ity of [place] CENTER AT [id number] Ia dicmaryellen [facility] 072 [facility] 2021-10-21 2021-10-[address] [facility] 1.2.840.114 [id number] Univers 00:00:00 00:00:00 Secure Msg Unassigned, HEALTH 350.1.13.10 ity of [place].2.[place] [phone] [address] OFFICE BUILDING 2021-10-20 2021-10-20 Outpatient R MORGAN MAC [facility] [id number] Univers 06:35:00 10:05:00 ity of [facility] 2021-10-20 2021-10-20 [facility] 1.2.840.114 [id number] Univers 06:35:00 10:05:00 Encounter [facility] HEALTH 350.1.13.10 it[place] of [place].7.2.[place] [facility] [phone] [address] ([facility]) 2021-10-20 2021-10-20 Surgery [facility] 1.2.075.653 [id number] Univers 08:00:00 09:00:00 [place] SPECIALTY 350.1.13.10 ity of [place].2.[place] CENTER AT [phone] Ia dicmaryellen CARTERY 020 [facility] 2021-10-17 2021-10-17 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 1.2.840.114 [id number] Univers 15:30:00 15:45:00 Visit Luis Burgess 350.1.13.10 ity of [place].2.7.2.[place] [facility] [phone] Ia paulette NAL 353 [facility] 2021-10-17 2021-10-17 Outpatient R ADITYA [facility] [id number] Univers 15:30:00 15:30:00 LUIS ity of [facility] 2021-10-17 2021-10-17 Laboratory Only, Adc Test [facility] 1.2.840. 114 [id number] Univers 10:30:00 10:45:00 Only Wild Kamara 350.1.13.10 ity of [place].2.[place] [phone] [facility] [address] 2021-10-17 2021-10-17 Patient Doctor TOO 1.2.840.114 [id number] Univers 00:00:00 00:00:00 Secure Msg Unassigned, CADE 350.1.13.10 ity of [place] [facility] 4.2.7.2.686 Oren as [phone] [facility] [address] 2021-10-17 2021-10-17 Orders Doctor TOO 1.2.840.114 [id number] Univers 00:00:00 00:00:00 Only Unassigned, CADE 350.1.13.10 ity of [place] [facility] 4.2.7.2.686 Oren as [id number] [facility] [address] 2021-09-30 2021-09-30 Outpatient [facility] [id number] Univers 13:00:00 13:00:00 LUIS ity [facility] 2021-09-28 2021-09-28 Telephone [facility] 1.2.832.858 [id number] Univers 00:00:00 00:00:00 Joon HANDY 350.1.13.10 ity of [place].2.[place] [facility] [phone] [facility] 059 [facility] 2021-09-27 2021-09-27 Outpatient R NINA [facility] [id number] Univers 15:30:00 15:30:00 HANNAH ity [facility] 2021-09-22 2021-09-22 Mateo [facility] 1.2.840.114 [id number] [facility] 00:00:00 00:00:00 [facility] 350.1.13.10 ity of [place] 4.2.7.2.686 Oren as OLIVIER?BLEA [phone] Me dical PAPA 092 [facility] OFFICE [facility] 2021-09-19 2021-09-[address] [facility] 1.2.840.114 [id number] Univers 00:00:00 00:00:00 Secure Msg Luis HEALTH 350.1.13.10 [place] [id number] [address] 2021-09-19 2021-09-[address] [facility] 1.2.840.114 [id number] Univers 00:00:00 00:00:00 Secure Msg Luis HEALTH 350.1.13.10 [place]2.[place] [id number] [address] 2021-09-16 2021-09-16 [facility] [id number] Univers 13:30:00 23:59:00 LUIS ity [facility] 2021-09-16 2021-09-16 [facility] [id number] Univers 13:30:00 13:30:00 LUIS ity [facility] 2021-09-16 2021-09-16 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 1.2.840.114 [id number] Univers 13:15:00 13:30:00 Visit Joon Woody 350.1.13. 10 [place] [phone] Ia dical NAL 353 [facility] 2021-09-16 2021-09-16 Prep For Kiah [facility] 1.2.840.114 [id number] Univers 00:00:00 00:00:00 Surgery Zhu SPECIALTY 350.1.13.10 [place] [phone] Me dicmaryellen ORTIZ 072 [facility] 2021-09-15 2021-09-[address] [facility] 1.2.085.846 [id number] Univers 00:00:00 00:00:00 Zhu SPECIALTY 350.1.13.10 [place] [facility] [phone] Ia dicmaryellen ORTIZ [address] [place] [address] 2021-09-09 2021-09-09 Outpatient R [facility] [id number] Univers 13:30:00 13:30:00 SENDIL ity [facility] 2021-09-09 2021-09-09 Outpatient Florence [facility] [id number] Univers 13:30:00 13:30:00 SENDIL ity [facility] 2021-09-08 2021-09-08 Telephone [facility] [id number] [id number] Univers 00:00:00 00:00:00 Marko SPECIALTY 350.1.13.10 [place] [phone] Ia paulette ORTIZ [address] [place] [address] 2021-09-07 2021-09-07 Orders Doctor TOO 1.2.840.114 [id number] Univers 00:00:00 00:00:00 Only Unassigned, CADE 350.1.13.10 ity of [place] [facility] 4.2.7.2.686 [place] as [phone] [address] 2021-09-06 2021-09-[address] [facility] 1.2.409.086 [id number] Univers 00:00:00 00:00:00 Sendil Lauren HANDY 350.1.13.10 [place] [phone] Ia dicmaryellen NAL 059 [facility] 2021-09-02 2021-09-02 Outpatient Florence [facility] [id number] Univers 15:00:00 15:00:00 LUIS ity [facility] 2021-09-02 2021-09-02 Outpatient R [facility] [id number] Univers 15:00:00 15:00:00 LUIS ity [facility] [facility] 2021-09-02 2021-09-02 Telephone [facility] 1.2.331.371 [id number] Univers 00:00:00 00:00:00 Zhu SPECIALTY 350.1.13.10 it[place] [phone] Ia paulette ORTIZ [address] [place] [address] 2021-09-02 2021-09-[address] [facility] 1.2.445.129 [id number] Univers 00:00:00 00:00:00 Zhu SPECIALTY 350.1.13.10 it[place] [phone] Ia paulette ORTIZ [address] [place] [address] 2021-09-02 2021-09-[address] [facility] 1.2.053.904 [id number] Univers 00:00:00 00:00:00 Marko SPECIALTY 350.1.13.10 it[place] [phone] Ia paulette ORTIZ [address] [place] [address] 2021-09-01 2021-09-01 Tuber Machine Operator Helper Vls-Lab [facility] 1.2.840.114 [id number] Univers 13:15:00 13:30:00 Visit Marko Dupont SPECIALTY 350.1.13.10 it[place] [phone] Ia paulette ORTIZ [address] [place] [address] 2021-09-01 2021-09-01 Outpatient R MARKO DUPONT [facility] 1 [id number] Univers 13:15:00 13:15:00 MARKO DUPONT [facility] 2021-09-01 2021-09-01 Office [facility] 1.2.840.114 [id number] Univers 11:00:00 11:30:00 Visit Marko SPECIALTY 350.1.13.10 it[place] [phone] Ia paulette ORTIZ [address] [place] [address] 2021-09-01 2021-09-01 Office [facility] 1.2.840.114 [id number] Univers 11:00:00 11:30:00 Visit Marko SPECIALTY 350.1.13.10 it[place] 4.2.[place].2.[place] [phone] Ia selinamaryellen VICTORY 072 [facility] 2021-09-01 2021-09-01 Outpatient R MARKO DUPONT [facility] 1 [id number] Univers 11:00:00 11:00:00 MARKO DUPONT april [facility] 2021-09-01 2021-09-01 Outpatient R MARKO DUPONT [facility] 1 [id number] Univers 11:00:00 11:00:00 MARKO DUPONT [facility] 2021-08-29 2021-08-[address] [facility] 1.2.840.114 [id number] Univers 11:30:00 11:53:59 Visit Joon HANDY 350.1.13.10 ity [facility] [place]2.7.2.[place] [phone] Ia dical NAL [address] [place] [address] 2021-08-29 2021-08-29 [facility] [id number] Univers 11:30:00 11:53:59 SENDIL sofy [facility] 2021-08-29 2021-08-29 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 1.2.840.114 [id number] Univers 11:15:00 11:30:00 Visit Joon Woody 350.1.13. 10 ity [facility] 4.2.7.2.[place] [id number] Ia paulette NAL 353 [facility] 2021-08-29 2021-08-29 Outpatient R ANNALISE [facility] [id number] Univers 11:15:00 11:15:00 SENDIL sofy [facility] 2021-08-23 2021-08-[address] [facility] 1.2.840.114 [id number] Univers 00:00:00 00:00:00 Joon HANDY 350.1.13.10 ity [facility] 4.2.7.2.[place] [phone] Ia dical NAL 059 [facility] 2021-08-21 2021-08-[address] [facility] 1.2.840.114 [id number] Univers 00:00:00 00:00:00 Joon HANDY 350.1.13.10 ity of [place] 4.2.7.2.[place] [phone] Ia dical NAL 9 [facility] 2021-08-20 2021-08-20 Telephone [facility] 1.2.019.223 [id number] Univers 00:00:00 00:00:00 Gus HANDY 350.1.13.10 ity of [place] 4.2.7.2.[place] [phone] Ia dicme NAL [address] [place] [address] 2021-08-19 2021-08-19 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 1.2.840.114 [id number] Univers 14:45:00 15:00:00 Visit Joon Woody 350.1.13. 10 ity of [place] 4.2.7.2.[place] [phone] [address] 2021-08-19 2021-08-19 Outpatient [facility] [id number] Univers 14:45:00 14:45:00 SENDIL ity of [facility] 2021-08-13 2021-08-13 Telephone [facility] 1.2.551.621 [id number] Univers 00:00:00 00:00:00 Gus HANDY 350.1.13.10 ity of [place] 4.2.7.2.[place] [phone] Ia dical NAL [address] [place] [address] 2021-08-12 2021-08-12 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 1.2.840.114 [id number] Univers 14:45:00 15:00:00 Visit Joon Woody 350.1.13. 10 ity of [place] 4.2.7.2.[place] [phone] Ia dical NAL [address] [place] [address] 2021-08-12 2021-08-12 Outpatient [facility] [id number] Univers 14:45:00 14:45:00 SENDIL ity of [facility] 2021-08-10 2021-08-[address] [facility] 1.2.840.114 [id number] Univers 00:00:00 00:00:00 Joon HANDY 350.1.13.10 ity of [facility] 4.2.7.2.[place] [phone] Ia dical NAL 059 [facility] 2021-08-10 2021-08-10 Orders Doctor TOO 1.2.840.114 [id number] Univers 00:00:00 00:00:00 Only Unassigned, CADE 350.1.13.10 it[facility] 4.2.7.2.686 Oren as [phone] [address] 2021-08-07 2021-08-[address] [facility] 1.2.512.446 [id number] Univers 00:00:00 00:00:00 Gus HANDY 350.1.13.10 ity of [facility] 4.2.7.2.[place] [phone] Ia dical EMMANUELLE 059 [facility] 2021-08-01 2021-08-01 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 1.2.840.114 [id number] Univers 13:00:00 13:15:00 Visit Joon Woody 350.1.13. 10 ity of [facility] 4.2.7.2.[place] [phone] Ia dical EMMANUELLE 353 [facility] 2021-08-01 2021-08-01 Outpatient R ANNALISE [facility] [id number] Univers 13:00:00 13:00:00 SENDIL ity [facility] 2021-07-31 2021-07-[address] [facility] 1.2.053.583 [id number] Univers 00:00:00 00:00:00 Joon HANDY 350.1.13.10 ity of [facility] 4.2.7.2.[place] [id number] Ia dical NAL 059 [facility] 2021-07-29 2021-07-29 Outpatient JUVENCIO GARCIA [facility] [id number] Univers 14:49:16 23:59:00 JUVENCIO LUNA [facility] 2021-07-29 2021-07-29 Outpatient R JUVENCIO LUNA [facility] [id number] Univers 14:49:16 23:59:00 JUVENCIO LUNA [facility] 2021-07-29 2021-07-29 [facility] 1.2.004.729 [id number] Univers 14:49:16 23:59:00 Encounter Juvencio HANDY 350.1.13.10 ity of [place] 4.2.7.2.686 [facility] [phone] [address] 2021-07-29 2021-07-29 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 1.2.840.114 [id number] Univers 14:00:00 14:15:00 Visit Jose Juan Gonsalez 350.1.1 3.10 ity of Unknown, Attending [facility] 4.2.7.2.686 [place] PROFESSIO [phone] Ia dicmaryellen HANDLEY 353 [facility] 2021-07-29 2021-07-[address] [facility] 1.2.840.114 [id number] Univers 13:15:00 13:30:00 Visit [facility] 350.1.13.10 it y of [place] 4.2.7.2.686 Oren as OLIVIER?BLEA [phone] Ia dical KNEY 044 [facility] OFFICE [facility] 2021-07-29 2021-07-29 Outpatient Florence GONSALEZ [facility] [id number] Univers 13:15:00 13:15:00 JOSE JUAN goetz [facility] 2021-07-29 2021-07-29 Outpatient Florence GONSALEZ [facility] [id number] Univers 13:15:00 13:15:00 JOSE JUAN goetz [facility] 2021-07-25 2021-07-25 Office Aftab PerdomoIT 1.2.840.11 4 [id number] Univers 15:30:00 16:30:00 Visit Karan Turner Carlos HEALTH 350.1.13. 10 ity of CLINICS 4.2.7.2.686 [place] [phone] [address] 2021-07-25 2021-07-25 Outpatient R YUE [facility] [id number] Univers 15:30:00 15:30:00 [facility] 2021-07-25 2021-07-25 Outpatient R YUE [facility] [id number] Univers 15:30:00 15:30:00 [facility] 2021-07-25 2021-07-[address] [facility] 1.2.840.114 [id number] Univers 00:00:00 00:00:00 [facility] 350.1.13.10 it y of [place] 4.2.7.2.686 Oren as OLIVIER?BLEA [phone] [address] MEDICAL OFFICE [facility] 2021-07-22 2021-07-22 Outpatient R JEREMY JUVENCIO [facility] [id number] Univers 13:40:00 14:19:02 JUVENCIO LUNA [facility] 2021-07-22 2021-07-[address] [facility] 1.2.840.114 [id number] Univers 13:40:00 14:19:02 Visit Juvencio [facility] 350.1.13.10 ity of [place] 4.2.7.2.686 Oren as OLIVIER?BLEA [phone] [place] 796382 [place] MEDICAL OFFICE [facility] 2021-07-21 2021-07-[address] [facility] 1.2.840.114 [id number] Univers 00:00:00 00:00:00 Secure Msg [facility] HEALTH 350.1.13.10 ity of [place] 4.2.7.2.686 Oren as OLIVIER?BLEA [phone] [facility] 044 [place] MEDICAL OFFICE [facility] 2021-07-20 2021-07-[address] [facility] 1.2.840.114 [id number] Univers 00:00:00 00:00:00 Secure Msg Savana Oliver HEALTH 350.1.13.10 ity of [place] 4.2.7.2.686 Oren as OLIVIER?BLEA [phone] [address] MEDICAL OFFICE [facility] 2021-07-20 2021-07-20 Patient Doctor TOO 1.2.840.114 [id number] Univers 00:00:00 00:00:00 Secure Msg Unassigned, CADE 350.1.13.10 ity of [place] [facility] 4.2.7.2.686 Oren as [phone] [address] 2021-07-20 2021-07-20 Patient Angel, [facility] 1.2.840.114 [id number] Univers 00:00:00 00:00:00 Secure Msg Savana Oliver HEALTH 350.1.13.10 ity of [place] 4.2.7.2.686 Oren as OLIVIER?BLEA [id number] [address] OFFICE [facility] 2021-07-20 2021-07-20 Telephone [facility] 1.2.840.114 [id number] Univers 00:00:00 00:00:00 [facility] HEALTH 350.1.13.10 it y of [place] 4.2.7.2.686 Oren as OLIVIER?BLEA [phone] [address] OFFICE [facility] 2021-07-20 2021-07-[address] [facility] 1.2.840.114 [id number] Univers 00:00:00 00:00:00 Secure Msg Unassigned, HEALTH 350.1.13.10 ity of [place] 4.2.7.2.686 Oren as OLIVIER?BLEA [phone] [address] OFFICE [facility] 2021-07-18 2021-07-18 Telephone [facility] 1.2.840.114 [id number] Univers 00:00:00 00:00:00 Jose Juan HEALTH 350.1.13.10 it y of [place] 4.2.7.2.686 Oren as OLIVIER?BLEA [phone] [address] OFFICE [facility] 2021-07-15 2021-07-15 Transition BHAVESH Henry 1.2.840.114 [id number] Univers 00:00:00 00:00:00 of Care Beata NGUYENY 350.1.13.10 it y of [place]2.7.2.[place] [phone] [address] 2021-07-11 2021-07-14 Inpatient X TRICIA [facility] [id number] Univers 17:04:00 14:07:00 POPPY goetz [facility] 2021-07-11 2021-07-14 [facility] Raghu Richards [facility] 1.2.840.1 14 [id number] Univers 17:04:00 14:07:00 Encounter Moe Solorio 350.1.13.10 ity of [place] 4.2.7.2.686 [facility] [phone] [address] 2021-07-11 2021-07-14 Inpatient X TRICIA [facility] [id number] Univers 17:04:00 14:07:00 POPPY goetz [facility] 2021-07-11 2021-07-11 Transition BHAVESH Henry 1.2.840.114 [id number] Univers 00:00:00 00:00:00 of Care Beata FLORES 350.1.13.10 it y of [place]2.7.2.[place] [id number] [address] 2021-07-04 2021-07-08 Hospital Jay Jay Garcia [facility] 1.2.840.1 14 [id number] Univers 10:42:00 16:45:00 Encounter Hardik Kate 350.1.13.10 ity of [place] 4.2.7.2.686 [facility] [phone] [address] 2021-07-06 2021-07-[address] [facility] 1.2.840.114 [id number] Univers 00:00:00 00:00:00 Secure Msg Unassigned, HEALTH 350.1.13.10 ity of [place] 4.2.7.2.686 [facility] [phone] [address] ([facility]) 2021-07-02 2021-07-02 Emergency X KASH [facility] ERT [id number] Univers 13:13:00 15:09:00 JESSICA itapril [facility] 2021-07-02 2021-07-02 Emergency [facility] 1.2.814.821 [id number] Univers 13:13:00 15:09:00 Jessica HANDY 350.1.13.10 i ty of [facility] 4.2.7.2.686 [facility] [phone] [place] 705844 [place] 2021-07-02 2021-07-02 Emergency X [facility] ERT [id number] Univers 13:13:00 15:09:00 JESSICA [facility] 2021-07-01 2021-07-01 [facility] 1.2.840.114 [id number] Univers 09:22:20 23:59:00 Encounter Joon HANDY 350.1.13.10 ity [facility] 4.2.7.[address] [place] [id number] 2021-07-01 2021-07-01 [facility] [id number] Univers 11:30:00 11:30:00 SENDIL [facility] 2021-07-01 2021-07-01 Outpatient [facility] [id number] Univers 11:30:00 09:21:00 SENDIL [facility] 2021-07-01 2021-07-01 [facility] 1.2.840.114 [id number] Univers 09:20:17 09:21:00 Encounter Joon HANDY 350.1.13.10 ity of [place] 4.2.7.[address] [place] [id number] 2021-06-29 2021-06-29 Tuber Machine Operator Helper Lab, Ang - Db [facility] 1.2.840.1 14 [id number] Univers 15:30:00 15:45:00 Visit Veselka, [facility] 350.1.13 .10 ity of [place] 4.2.7.2.686 Oren as OLIVIER?BLEA [phone] Ia paulette ELAM 353 [facility] 2021-06-29 2021-06-29 Outpatient R [facility] [id number] Univers 15:30:00 15:30:00 [facility] 2021-06-29 2021-06-29 [facility] [id number] Univers 14:30:00 15:01:03 [facility] 2021-06-29 2021-06-29 Office 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 1.2.840.114 [id number] Univers 14:15:00 14:30:00 Visit Joon Woody 350.1.13. 10 ity of [place] 4.2.7.2.[place] [phone] Ia dical NAL 353 [facility] 2021-06-29 2021-06-29 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 1.2.840.114 [id number] Univers 14:15:00 14:30:00 Visit Joon WoodyTON 350.1.13. 10 ity of [place] 4.2.7.2.686 [place] [phone] Ia dical NAL 353 [facility] 2021-06-23 2021-06-23 Patient Doctor [place] 1.2.840.114 [id number] Univers 00:00:00 00:00:00 Secure Msg Unassigned, [place] 350.1.13.10 ity of [place] 4.2.7.2.686 [place] [phone] [place] 058399 [facility] 2021-06-20 2021-06-20 Transition BHAVESH Henry 1.2.840.114 [id number] Univers 00:00:00 00:00:00 of Nery NGUYENY 350.1.13.10 it y of [place] 4.2.7.2.686 [place] [phone] [facility] [address] [place] 2021-06-18 2021-06-18 Refill [facility] 1.2.840.114 [id number] Univers 00:00:00 00:00:00 Joon HANDY 350.1.13.10 ity of [place] 4.2.7.2.[place] [phone] [address] 2021-06-14 2021-06-17 Outpatient [facility] [id number] Univers 16:51:00 16:40:00 ADNAN ity [facility] 2021-06-14 2021-06-17 Emergency Michael Gutiérrezn [facility] 1..840. 114 [id number] Univers 16:51:00 16:40:00 Shannon Ely 350.1.13.10 ity of [facility] 4.2.7.2.[place] [id number] [place] 7[address]841 [place] 2021-06-17 2021-06-17 Outpatient R ADITYA [facility] [id number] Univers 10:20:00 10:20:00 LUIS ity [facility] 2021-06-14 2021-06-14 Outpatient X [facility] [id number] Univers 16:51:00 16:51:00 ADNAN ity [facility] 2021-06-14 2021-06-14 Telephone [facility] 1.2.588.138 [id number] Univers 00:00:00 00:00:00 Joon HANDY 350.1.13.10 ity of [facility] 4.2.7.2.[place] [id number] [address] 2021-06-10 2021-06-10 Out[facility] [id number] Univers 16:00:00 16:32:09 ARIELLE ity of [facility] 2021-06-10 2021-06-10 Office Cecy MENENDEZ 1.2.840.114 [id number] Univers 16:00:00 16:32:09 Visit Arielle PEDIATRIC 350.1.13.10 ity of José [place].2.7.2.686 [place] [phone] [place] 705839 [place] [facility] 2021-06-10 2021-06-10 Outpatient R [facility] [id number] Univers 16:00:00 16:00:00 ARIELLE, theey [facility] 2021-06-10 2021-06-10 Orders Doctor TOO 1.2.840.114 [id number] Univers 00:00:00 00:00:00 Only Unassigned, CADE 350.1.13.10 ity of [facility] 4.2.7.2.686 Oren as [id number] [place] [address] [place] 2021-06-06 2021-06-06 Outpatient [facility] [id number] Univers 15:00:00 23:59:00 SENDIL [facility] 2021-06-06 2021-06-06 Outpatient [facility] [id number] Univers 15:00:00 15:00:00 SENDIL [facility] 2021-06-06 2021-06-06 Outpatient R [facility] [id number] Univers 13:30:00 14:33:23 SENDIL [facility] 2021-06-06 2021-06-06 Office [facility] 1.2.840.114 [id number] Univers 13:30:00 14:33:23 Visit Joon HANDY 350.1.13.10 ity of [facility] 4.2.7.2.[place] [id number] [address] 2021-06-06 2021-06-06 Outpatient R [facility] [id number] Univers 13:30:00 14:33:23 SENDIL ity [facility] 2021-06-06 2021-06-06 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 1.2.840.114 [id number] Univers 13:15:00 13:15:00 Visit Joon Woody 350.1.13. 10 ity of [place].7.2.[place] [id number] Ia dical NAL 353 [facility] 2021-06-03 2021-06-03 Outpatient [facility] [id number] Univers 11:00:00 11:00:00 LUIS ity [facility] 2021-06-03 2021-06-[address] [facility] 1.2.293.000 [id number] Univers 00:00:00 00:00:00 Joon HANDY 350.1.13.10 ity of [place].2.[place] [phone] Ia dical NAL 059 [facility] 2021-05-30 2021-05-30 Orders Doctor TOO 1.2.840.114 [id number] Univers 00:00:00 00:00:00 Only Unassigned, CADE 350.1.13.10 ity of [place] [facility] 4.2.7.2.686 Oren as [id number] [address] 2021-05-25 2021-05-25 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 1.2.840.114 [id number] Univers 14:00:00 14:15:00 Visit Joon Woody 350.1.13. 10 ity of [place].2.[place] [id number] Ia dical NAL 353 [facility] 2021-05-25 2021-05-25 Outpatient R [facility] [id number] Univers 14:00:00 14:00:00 SENDIL ity [facility] 2021-05-25 2021-05-25 Telephone [facility] 1.2.228.320 [id number] Univers 00:00:00 00:00:00 Luis CECILIATON 350.1.13.10 i ty of [facility] 4.2.7.2.[place] [id number] Ia dical NAL 059 [facility] 2021-05-25 2021-05-[address] [facility] 1.2.718.936 [id number] Univers 00:00:00 00:00:00 Luis [place] 350.1.13.10 i ty of [facility] 4.2.7.2.[place] [id number] Ia dicme NAL 059 [facility] 2021-05-16 2021-05-16 Telephone [facility] 1.2.485.400 [id number] [id number] Univers 00:00:00 00:00:00 Joon HANDY 350.1.13.10 ity of [place] 4[place].2.[place] [id number] [facility] NAL 9 [facility] 2021-05-11 2021-05-11 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 1.2.840.114 [id number] Univers 14:45:00 15:00:00 Visit Joon Woody 350.1.13. 10 ity of [facility] 4.2.7.2.[place] [id number] [facility] 353 [facility] 2021-05-11 2021-05-11 Outpatient R ANNALISE [facility] [id number] Univers 14:45:00 14:45:00 SENDIL ity of [facility] 2021-05-10 2021-05-10 Telephone [facility] [id number] Univers 00:00:00 00:00:00 Joon HANDY 350.1.13.10 ity of [facility] [place] [id number] Ia dicme NAL 9 [facility] 2021-05-09 2021-05-09 [facility] JEFF Burgess 1.2.840.114 [id number] Univers 00:00:00 23:59:00 Encounter Luis CADE 350.1.13.10 ity of HOSPITAL 4.2.7.2.686 [place] [phone] [address] 2021-05-09 2021-05-09 Outpatient R [facility] [id number] Univers 00:00:00 23:59:00 ity of [facility] 2021-05-09 2021-05-09 Outpatient SE[facility]ANI [facility] [id number] Univers 00:00:00 00:00:00 LUIS ity of [facility] 2021-05-04 2021-05-[address] [facility] 1.2.840.114 [id number] Univers 00:00:00 00:00:00 Secure Msg Unassigned, HEALTH 350.1.13.10 ity of [place] [phone] [address] OFFICE BUILDING 2021-05-03 2021-05-03 Tuber Machine Operator Helper Draw, Clc-Bls Lab [facility] 1.2.8 40.114 [id number] Univers 11:15:00 11:30:00 Visit Michael [facility] 350.1.13.10 [place] [phone] [facility] [address] OFFICE BUILDING 2021-05-03 2021-05-03 Outpatient R MICHAEL [facility] [id number] Univers 11:15:00 11:15:00 SINJU ity [facility] 2021-05-03 2021-05-03 Office [facility] 1.2.840.114 [id number] Univers 10:15:00 11:00:00 Visit Pending Sale To [facility] Node Management 350.1.13.10 it [place] [id number] [place] [address] OFFICE BUILDING 2021-05-03 2021-05-03 Outpatient R [facility] [id number] Univers 10:15:00 10:15:00 SINJU ity [facility] 2021-05-02 2021-05-[address] [facility] 1.2.840.114 [id number] Univers 00:00:00 00:00:00 Secure Msg Unassigned, [place] 350.1.13.10 ity of [place] [id number] [place] 058399 [facility] 2021-04-26 2021-04-26 Outpatient R [facility] [id number] Univers 14:30:00 14:30:00 SENDIL ity of [facility] 2021-04-26 2021-04-26 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 1.2.840.114 [id number] Univers 14:30:00 14:30:00 Visit Joon Woody 350.1.13. 10 [place] [id number] [facility] 353 [facility] 2021-04-21 2021-04-[address] [facility] 1.2.840.114 [id number] Univers 00:00:00 00:00:00 Secure Msg Unassigned, [facility] 350.1.13.10 ity of [place] [phone] [place] [address] OFFICE BUILDING 2021-04-21 2021-04-[address] [facility] 1.2.470.333 [id number] Univers 00:00:00 00:00:00 Sendsissy HANDY 350.1.13.10 ity of [facility] [place] [id number] [address] 2021-04-19 2021-04-19 Outpatient R MEHNAZ RODRIGUEZ [facility] [id number] Univers 11:30:00 13:45:03 MEHNAZ RODRIGUEZ i ty of [facility] 2021-04-19 2021-04-[address] [facility] 1.2.840.114 [id number] Univers 11:30:00 12:00:00 Visit Mehnaz HANDY 350.1.13.10 i ty of [facility] 4.[place] [id number] Ia dical NAL 085 [facility] 2021-04-19 2021-04-19 Outpatient R MEHNAZ RODRIGUEZ [facility] 10 [id number] Univers 11:30:00 11:30:00 MEHNAZ RODRIGUEZ i ty of [facility] 2021-04-19 2021-04-19 Outpatient R SUNSHINE [facility] [id number] Univers 10:00:00 10:52:24 JOSE JUAN ity [facility] 2021-04-19 2021-04-19 [facility] 1.2.840.114 [id number] Univers 10:00:00 10:52:24 Visit [facility] 350.1.13.10 it y of [place] 4.2.7.2.686 Oren as OLIVIER?BLEA [id number] [address] OFFICE [facility] 2021-04-15 2021-04-[address] [facility] 1.2.840.114 [id number] Univers 00:00:00 00:00:00 Management Mehnaz HANDY 350.1.13.10 ity of [facility] 4.[place].2.[place] [id number] Ia dicme NAL [address] [place] [address] 2021-04-13 2021-04-13 Telephone JuanbrendaYANIV 1.2.840.114 [id number] Univers 00:00:00 00:00:00 [facility] 350.1.13.10 i ty of [facility] 4.2.7.2.[place] [id number] [address] 2021-04-12 2021-04-12 Outpatient R ANNALISE [facility] [id number] Univers 15:45:00 15:45:00 JOON goetz [facility] 2021-04-12 2021-04-12 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 1.2.840.114 [id number] Univers 15:45:00 15:45:00 Visit Joon Woody 350.1.13. 10 ity of [facility] 4.2.7.2.[place] [id number] Ia dical NAL 353 [facility] 2021-04-12 2021-04-[address] [facility] 1.2.840.114 [id number] Univers 14:30:00 15:31:53 Visit Sendil Lauren [place] 350.1.13.10 ity of [facility] 4.2.7.2.[place] [id number] Ia dical NAL 059 [facility] 2021-04-12 2021-04-12 Outpatient R ANNALISE [facility] [id number] Univers 14:30:00 15:31:53 SENDIL ity [facility] 2021-04-12 2021-04-12 Outpatient R ANNALISE [facility] [id number] Univers 14:30:00 14:30:00 SENDIL ity [facility] 2021-04-12 2021-04-12 Patient Doctor [facility] 1.2.132.446 [id number] Univers 00:00:00 00:00:00 Secure Msg Unassigned, [facility] 350.1.13.10 ity of [place] [facility] 4.2.7.2.[place] [phone] [address] 2021-04-12 2021-04-[address] [facility] 1.2.840.114 [id number] Univers 00:00:00 00:00:00 Secure Msg Unassigned, [facility] 350.1.13.10 ity of [place] [phone] Ia dical NAL [address] [place] [address] 2021-04-08 2021-04-08 [facility] [id number] Univers 09:03:48 23:59:00 LUIS ity [facility] 2021-04-08 2021-04-08 Outpatient [facility] [id number] Univers 09:03:48 23:59:00 LUIS ity [facility] 2021-04-08 2021-04-08 [facility] 1.2.840.114 [id number] Univers 09:00:00 23:59:00 Encounter Luis [place] 350.1.13.10 ity of [place] [id number] [address] 2021-04-08 2021-04-08 Outpatient R ABRAHANBLANKA [facility] [id number] Univers 09:03:48 09:03:48 LUIS ity [facility] 2021-04-08 2021-04-08 Outpatient R ADITYA [facility] [id number] Univers 00:00:00 00:00:00 LUIS ity of [facility] 2021-04-08 2021-04-08 Telephone [facility] 1.2.787.981 [id number] Univers 00:00:00 00:00:00 Sendsissy HANDY 350.1.13.10 ity of [place] [id number] Ia dicme NAL [address] [place] [address] 2021-03-31 2021-03-31 Patient [facility] 1.2.840.114 [id number] Univers 00:00:00 00:00:00 Secure Msg Joon HANDY 350.1.13.10 ity of [place] [id number] Ia dicme NAL [address] [place] [address] 2021-03-31 2021-03-31 Patient [facility] 1.2.840.114 [id number] Univers 00:00:00 00:00:00 Secure Msg Joon [place] 350.1.13.10 ity of [facility] 4.2.7.2.[place] [id number] Ia dical NAL 9 [facility] 2021-03-29 2021-03-29 Patient [facility] 1.2.840.114 [id number] Univers 00:00:00 00:00:00 Secure Msg Sendil KMaria AHMaria A [place] 350.1.13.10 ity of [facility] 4.2.7.2.[place] [id number] Ia dical NAL [address] [place] [address] 2021-03-29 2021-03-[address] [facility] 1.2.840.114 [id number] Univers 00:00:00 00:00:00 Secure Msg Joon Lauren HANDY 350.1.13.10 ity of [facility] 4.2.7.2.[place] [id number] Ia dicmaryellen NAL 059 [facility] 2021-03-22 2021-03-22 Outpatient R ANNALISE [facility] [id number] Univers 11:00:00 11:01:17 SENDIL ity [facility] 2021-03-22 2021-03-22 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 1.2.840.114 [id number] Univers 11:00:00 11:01:17 Visit Annalise Joon HANDY 350.1.13. 10 ity of [place] [phone] Ia dical NAL 353 [facility] 2021-03-14 2021-03-[address] [facility] 1.2.840.114 [id number] Univers 00:00:00 00:00:00 Secure Msg [facility] 350.1.13.10 ity of [place] [facility] 4.2.7.2.686 Oren as OLIVIER?BLEA [phone] [facility] ELAM 044 [facility] OFFICE [facility] 2021-03-14 2021-03-[address] [facility] 1.2.840.114 [id number] Univers 00:00:00 00:00:00 Secure Msg Jose Juan HEALTH 350.1.13.10 [facility] 4.2.7.2.686 Oren as OLIVIER?BLEA [id number] [facility] NICOLE[address] OFFICE [facility] 2021-03-11 2021-03-11 Outpatient R SUNSHINE [facility] [id number] Univers 11:00:00 11:16:39 JOSE JUAN [facility] 2021-03-11 2021-03-11 Outpatient R SUNSHINE [facility] [id number] Univers 11:00:00 11:16:39 JOSE JUAN [facility] 2021-03-11 2021-03-[address] [facility] 1.2.840.114 [id number] Univers 11:00:00 11:15:00 Visit [facility] 350.1.13.10 it y of [place] 4.2.7.2.686 Oren as OLIVIER?BLEA [id number] Ia dical KNEY 044 [facility] OFFICE BUILDING 2021-03-10 2021-03-10 Outpatient [facility] [id number] Univers 11:00:00 11:00:00 SENDIL ity [facility] 2021-03-10 2021-03-10 Refill [facility] 1.2.840.114 [id number] Univers 00:00:00 00:00:00 [facility] 350.1.13.10 it y of [place] [id number] [address] OFFICE BUILDING 2021-03-07 2021-03-07 Outpatient [facility] [id number] Univers 13:30:00 13:30:00 SENDIL ity of [facility] 2021-03-01 2021-03-01 Outpatient R ANNALISE [facility] [id number] Univers 09:30:00 09:30:00 [facility]-01 2021-03-01 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 1.2.840.114 [id number] Univers 09:30:00 09:30:00 Visit Joon Woody 350.1.13. 10 ity of [place] [phone] Ia dical NAL 353 [facility] 2021-02-25 2021-02-25 Tele[facility] 1.2.840.114 [id number] Univers 00:00:00 00:00:00 OLE Guzmán 350.1.13.10 ity of [place] 4.2.7.2.[place] [phone] Ia dical NAL 059 [facility] 2021-02-25 2021-02-25 [facility]phone [facility] 1.2.840.114 [id number] Univers 00:00:00 00:00:00 BABS Guzmán 350.1.13.10 ity of [place] 4.2.7.2.[place] [id number] [facility] [address] OFFICE BUILDING 2021-02-15 2021-02-15 Outpatient [facility] [id number] Univers 14:30:00 14:44:40 ARIELLE ity [facility] 2021-02-15 2021-02-15 [facility] [id number] Univers 14:30:00 14:44:40 ARIELLE, y [facility] 2021-02-15 2021-02-15 Office Gagan GEMMA 1.2.840.114 [id number] Univers 14:04:14 14:44:40 Visit Arielle PEDIATRIC 350.1.13.10 ity of [place].2.[place].2.[place] [phone] [facility] PRIMARY [address] CARE CLINIC 2021-02-14 2021-02-14 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 1.2.840.114 [id number] Univers 15:48:40 16:03:40 Visit Joon Woody 350.1.13. 10 ity of [place].2.686 [place] [facility] [id number] [facility] [address] BUILDING 2021-02-14 2021-02-14 Outpatient R ANNALISE [facility] [id number] Univers 09:00:00 09:00:00 SENDIL itapril [facility] 2021-02-14 2021-02-14 Outpatient R ANNALISE [facility] [id number] Univers 09:00:00 09:00:00 SENDIL itapril [facility] 2021-02-14 2021-02-14 Telephone YANIV Sebastian 1.2.840.114 [id number] Univers 00:00:00 00:00:00 [facility] 350.1.13.10 i ty of [facility] 4.2.7.2.[place] [id number] [address] 2021-02-11 2021-02-[address] [facility] 1.2.840.114 [id number] Univers 00:00:00 00:00:00 Joon HANDY 350.1.13.10 ity of [facility] 4.2.7.2.[place] [id number] Ia dical NAL 059 [facility] 2021-02-08 2021-02-08 Outpatient R ADITYA [facility] [id number] Univers 11:00:19 23:59:00 LUIS ity [facility] 2021-02-08 2021-02-08 Hospital [facility] 1.2.840.114 [id number] Univers 11:00:19 23:59:00 Encounter Luis HANDY 350.1.13.10 ity of [place] 4[place].2.[place] [phone] Ia dicme NAL 844 [facility] 2021-02-08 2021-02-08 Office [facility] 1.2.840.114 [id number] Univers 10:58:26 11:18:26 Visit Luis HANDY 350.1.13.10 i ty of [place]2.7.2.[place] [id number] Ia dical NAL 059 [facility] 2021-02-08 2021-02-08 Outpatient R ADITYA [facility] [id number] Univers 11:00:00 11:00:00 LUIS itapril [facility] 2021-02-07 2021-02-07 Outpatient R VU [facility] [id number] Univers 13:00:00 13:00:00 NICOLE goetz [facility] 2021-01-31 2021-01-31 Office [facility]DZ[facility] 1.2.840.114 [id number] Univers 14:05:00 15:05:41 Visit Nicole HANDY 350.1.13.10 [place]y [place].2.[place] [id number] [facility] [address] [facility] 2021-01-31 2021-01-31 Outpatient R VU, [facility] [id number] Univers 14:00:00 15:05:41 NICOLE goetz [facility] 2021-01-31 2021-01-31 Outpatient R VU, [facility] [id number] Univers 14:00:00 14:00:00 NICOLE goetz [facility] 2021-01-31 2021-01-31 Outpatient R VU, [facility] [id number] Univers 14:00:00 14:00:00 [facility]-01-31 2021-01-31 Patient [facility] 1.2.840.114 [id number] Univers 00:00:00 00:00:00 Secure Msg Luis HEALTH 350.1.13.10 ity of [place].2.[place] [id number] [facility] [address] OFFICE [facility] 2021-01-31 2021-01-31 Refill AbrahanblankaDZILTH[facility] 1.2.840.114 [id number] Univers 00:00:00 00:00:00 Luis [place] 350.1.13.10 i ty of [place].2.[place] [id number] Ia dicme NAL 059 [facility] 2021-01-21 2021-01-21 Tuber Machine Operator Helper 2, [facility] 1.2.840.114 [id number] Univers 15:15:00 15:20:01 Visit Joon Woody 350.1.13. 10 ity of [place] 4.[place].7.2.[place] [phone] Ia dicme NAL 353 [facility] 2021-01-21 2021-01-21 Tuber Machine Operator Helper 2, [facility] 1.2.840.114 [id number] Univers 15:13:15 15:20:01 Visit Joon Woody 350.1.13. 10 ity of [place] 4[place].2.[place] [id number] Me dical NAL 353 [facility] 2021-01-21 2021-01-21 Outpatient R ANNALISE [facility] [id number] Univers 15:15:00 15:15:00 SENDIL ity of [facility] 2021-01-18 2021-01-[address] [facility] 1.2.222.553 [id number] Univers 00:00:00 00:00:00 Sendil [facility] 350.1.13.10 ity of [place].2.7.2.[place] [id number] [facility] [address] OFFICE BUILDING 2021-01-17 2021-01-17 Outpatient R SUNSHINE [facility] [id number] Univers 14:30:00 14:51:27 JOSE JUAN ity of [facility] 2021-01-17 2021-01-[address] [facility] 1.2.840.114 [id number] Univers 14:11:10 14:51:27 Visit [facility] 350.1.13.10 it y of [place] 4.2.7.2.686 Oren as OLIVIER?BLEA [phone] Ia dical KNEY 044 [facility] OFFICE [facility] 2021-01-14 2021-01-14 Outpatient R MEHNAZ RODRIGUEZ [facility] 10 [id number] Univers 13:00:00 13:48:56 MEHNAZ RODRIGUEZ i ty of [facility] 2021-01-14 2021-01-[address] [facility] 1.2.840.114 [id number] Univers 12:50:20 13:48:[address] [facility] 350.1.13.10 i ty [place].2.[place] [id number] Ia dical NAL 085 [facility] 2021-01-14 2021-01-14 Outpatient R MEHNAZ RODRIGUEZ [facility] 10 [id number] Univers 13:00:00 13:00:00 MEHNAZ RODRIGUEZ i ty of [facility] 2021-01-13 2021-01-13 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 1.2.840.114 [id number] Univers 11:26:25 11:41:25 Visit Joon Woody 350.1.13. 10 ity [facility] 4.2.7.2.[place] [id number] Ia dical NAL 353 [facility] 2021-01-13 2021-01-13 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 1.2.840.114 [id number] Univers 11:26:25 11:32:58 Visit Joon Woody 350.1.13. 10 ity of [facility] 4.2.7.2.[place] [id number] Ia dical NAL 353 [facility] 2021-01-13 2021-01-13 Outpatient [facility] [id number] Univers 11:30:00 11:30:00 SENDIL ity [facility] 2021-01-13 2021-01-[address] [facility] 1.2.840.114 [id number] Univers 10:00:25 11:07:05 Visit Joon HANDY 350.1.13.10 ity of [place].2.[place] [id number] Ia dical NAL 059 [facility] 2021-01-13 2021-01-13 Outpatient R ANNALISE [facility] [id number] Univers 10:00:00 11:07:05 SENDIL ity [facility] 2021-01-13 2021-01-[address] [facility] 1.2.840.114 [id number] Univers 00:00:00 00:00:00 Joon HANDY 350.1.13.10 ity of [place].2.[place] [id number] Ia dical NAL 059 [facility] 2021-01-11 2021-01-11 Outpatient [facility] [id number] Univers 10:45:00 23:59:00 LUIS ity of [facility] 2021-01-11 2021-01-11 [facility] 1.2.840.114 [id number] Univers 10:45:00 23:59:00 Encounter Luis HEALTH 350.1.13.10 ity of [place].2.[place] [id number] [address] OFFICE BUILDING 2021-01-11 2021-01-11 Hospital [facility] 1.2.840.114 [id number] Univers 09:35:03 23:59:00 Encounter Sendil Raghu.H. HEALTH 350.1.13.10 ity of [place] 4[place]2.7.2.[place] [id number] [address] OFFICE BUILDING 2021-01-10 2021-01-[address] [facility] 1.2.840.114 [id number] Univers 00:00:00 00:00:00 Jose Juan HEALTH 350.1.13.10 it y of [place] 4.2.7.2.686 Oren as OLIVIER?BLEA [id number] Ia paulette [address] OFFICE BUILDING 2021-01-07 2021-01-07 Transition CONSTANTINE HenryJayden 1.2.840.114 [id number] Univers 00:00:00 00:00:00 of Care Beata NGUYENY 350.1.13.10 it y of [place].2.7.2.686 [place] [id number] [facility] [address] 2021-01-05 2021-01-06 Outpatient X [facility] AVNI [id number] Univers 10:26:00 12:42:00 MOE goetz [facility] 2021-01-05 2021-01-06 Emergency Kash Jessica [facility] 1.2.840. 114 [id number] Univers 10:26:00 12:42:00 Moe Solorio 350.1.13.10 ity of [place].2.7.2.[place] [id number] [facility] [address] 2021-01-05 2021-01-06 Outpatient X CRISTEL [facility] AVNI [id number] Univers 10:26:00 12:42:00 MOE goetz [facility] 2021-01-06 2021-01-06 Telephone [facility] 1.2.745.078 [id number] Univers 00:00:00 00:00:00 Luis HANDY 350.1.13.10 i ty [facility] 4.2.7.2.[place] [id number] [address] 2021-01-05 2021-01-05 Outpatient X CRISTEL [facility] AVNI [id number] Univers 10:26:00 10:26:00 MOE itapril [facility] 2021-01-05 2021-01-05 Telephone [facility] 1.2.415.778 [id number] Univers 00:00:00 00:00:00 Joon Handy 350.1.13.10 ity of [place].2.[place] [id number] [address] 2021-01-05 2021-01-05 Telephone [facility] 1.2.172.278 [id number] Univers 00:00:00 00:00:00 Joon HANDY 350.1.13.10 ity of [place].2.[place] [id number] [address] 2021-01-04 2021-01-04 Outpatient R SUNSHINE [facility] [id number] Univers 13:00:00 15:09:07 JOSE JUAN goetz [facility] 2021-01-04 2021-01-04 Office [facility] 1.2.840.114 [id number] Univers 12:39:25 15:09:07 Visit [facility] 350.1.13.10 it y of [place] 4.2.7.2.686 Oren as OLIVIER?BLEA [id number] [address] OFFICE [facility] 2021-01-04 2021-01-04 Outpatient R SUNSHINE [facility] [id number] Univers 13:00:00 13:00:00 JOSE JUAN goetz [facility] 2020-12-30 2020-12-30 Outpatient MEHNAZ NESS [facility] 10 [id number] Univers 10:00:00 10:00:00 MEHNAZ RODRIGUEZ i ty of [facility] 2020-12-27 2020-12-28 Hospital Gustabo Vickey [facility] 1. 2.840.114 [id number] Univers 15:44:00 17:25:00 Encounter [facility] 350.1.13.10 ity of Provider, [facility] Ep Lab [place] 4.2.7.2.686 [place] Anest[facility], [facility] Ep Lab Franco [phone] [facility] [address] ([facility]) 2020-12-27 2020-12-27 Outpatient R LOYD [facility] [id number] Univers 13:00:00 13:00:00 VICKEY ARREOLA it y of [facility] 2020-12-24 2020-12-24 Pre-Anesth Call, [facility] 1.2.840.114 [id number] Univers 08:35:00 08:40:00 esia [facility] Phone HEALTH 350.1.13.10 ity of Evaluation [place] 4.2.7.2.686 [place] [phone] [facility] [address] ([facility]) 2020-12-24 2020-12-[address] [facility] 1.2.942.853 [id number] Univers 00:00:00 00:00:00 [facility] 350.1.13.10 it [place] [phone] [facility] [address] ([facility]) 2020-12-22 2020-12-[address] [facility] 1.2.840.114 [id number] Univers 00:00:00 00:00:00 Secure Msg Jose Juan HEALTH 350.1.13.10 ity of [place] 4.2.7.2.686 Oren as PROFESSIO [phone] [place] [address] Branch OFFICE BUILDING ONE 2020-12-21 2020-12-21 [facility] 1.2.840.114 [id number] Univers 10:26:41 23:59:00 Encounter Provider, Braulio [facility] 350.1.1 3.10 [place] [phone] [facility] [address] ([facility]) 2020-12-21 2020-12-21 Outpatient R [facility] [id number] Univers 13:00:00 13:00:00 LUIS ity of [facility] 2020-12-20 2020-12-20 [facility] [id number] Univers 00:00:00 00:00:00 Luis Health 350.1.13.10 [place] [phone] [place] [address] [address] ([facility]) 2020-12-17 2020-12-17 [facility] [id number] Univers 00:00:00 00:00:00 Luis [place] 350.1.13.10 i ty [place] [phone] Ia dicme nal 059 [facility] 2020-12-17 2020-12-17 [facility] [id number] Univers 00:00:00 00:00:00 Luis [place] 350.1.13.10 [place] [phone] Ia dicme nal 059 [facility] 2020-12-14 2020-12-14 [facility] 1.2.840.114 [id number] Univers 11:20:00 23:59:00 Encounter Joon Aguilar [place] 350.1.13.10 ity [place]2.[place].2.[place] [phone] Ia dical nal 844 [facility] 2020-12-14 2020-12-14 [facility] 1.2.840.114 [id number] Univers 11:25:20 12:18:32 Visit Luis [place] 350.1.13.10 [place].2.[place] [phone] Ia dical nal 9 [facility] 2020-12-14 2020-12-14 Outpatient R [facility] [id number] Univers 11:40:00 11:40:00 LUIS ity [facility] 2020-12-14 2020-12-14 Outpatient R ANNALISE [facility] [id number] Univers 00:00:00 00:00:00 SENDIL ity [facility] 2020-12-09 2020-12-[address] [facility] [id number] Univers 00:00:00 00:00:00 Luis [place] 350.1.13.10 [place]7.2.[place] [phone] [place] [id number] [facility] 2020-12-07 2020-12-07 [facility] [id number] Univers 13:20:00 13:20:00 LUIS ity [facility] 2020-12-07 2020-12-[address] 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 1.2.840.114 [id number] Univers 15:12:24 15:27:24 Visit Joon Woody 350.1.13. 10 it[place] [phone] [facility] 353 [facility] 2020-12-06 2020-12-[address] [facility] 1.2.840.114 [id number] Univers 13:59:53 15:05:54 Visit Sendsissy Handy 350.1.13.10 [place] [phone] Ia dicme nal 059 [facility] 2020-12-06 2020-12-06 [facility] [id number] Univers 14:00:00 14:00:00 SENDIL ity [facility] 2020-12-06 2020-12-06 Telephone [facility] [id number] Univers 00:00:00 00:00:00 Sendil Lauren Handy 350.1.13.10 [place] [phone] [facility] emmanuelle 9 [facility] 2020-12-03 2020-12-03 Orders Doctor TOO 1.2.840.114 [id number] Univers 00:00:00 00:00:00 Only Unassigned, CADE 350.1.13.10 ity of [place] [facility] 4.2.7.2.686 Oren as [phone] [address] 2020-12-02 2020-12-02 Outpatient R ANNALISE [facility] [id number] Univers 09:00:00 09:00:00 SENDIL ity [facility] 2020-11-30 2020-11-30 [facility] 1.2.840.114 [id number] Univers 09:03:20 23:59:00 Encounter Joon GARZA 350.1.13.10 ity of [facility] [place].2.[place] [phone] Ia paulette VICTORY 805 [facility] 2020-11-30 2020-11-30 Outpatient R ANNALISE [facility] [id number] Univers 14:00:00 14:00:00 SENDIL ity [facility] 2020-11-30 2020-11-30 [facility] 1.2.840.114 [id number] Univers 09:00:00 09:02:00 Encounter Joon GARZA 350.1.13.10 [place] [phone] Ia dicmaryellen VICTORY 805 [facility] 2020-11-30 2020-11-30 Outpatient [facility] [id number] Univers 09:00:00 09:00:00 SENDIL ity [facility] 2020-11-22 2020-11-22 Hospital [facility] 1.2.840.114 [id number] Univers 08:38:20 23:59:00 Encounter Joon Handy 350.1.13.10 [place] [phone] [facility] nal 843 [facility] 2020-11-22 2020-11-22 Outpatient [facility] [id number] Univers 09:00:00 09:00:00 SENDIL ity [facility] 2020-11-22 2020-11-22 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 1.2.840.114 [id number] Univers 08:25:17 08:40:17 Visit Joon Woody 350.1.13. 10 [place] [phone] [facility] nal 353 [facility] 2020-11-22 2020-11-22 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 1.2.840.114 [id number] Univers 08:25:17 08:40:17 Visit Joon Woody 350.1.13. 10 [place] [phone] Ia dical nal 353 [facility] 2020-11-17 2020-11-17 Patient Doctor TOO 1.2.840.114 [id number] Univers 00:00:00 00:00:00 Secure Msg Unassigned, CADE 350.1.13.10 ity of [place] [facility] 4.2.7.2.686 Oren as [phone] [facility] [address] 2020-11-17 2020-11-17 Orders Doctor TOO 1.2.840.114 [id number] Univers 00:00:00 00:00:00 Only Unassigned, CADE 350.1.13.10 ity of [place] [facility] 4.2.7.2.686 Oren as [phone] [address] 2020 2020 Orders Doctor TOO 1.2.840.114 [id number] Univers 00:00:00 00:00:00 Only Unassigned, CADE 350.1.13.10 ity of [place] HOSPITAL 4.2.7.2.686 Oren as [phone] [address] 2020-11-11 2020-11-11 Telephone [facility] [id number] Univers 00:00:00 00:00:00 Joon Handy 350.1.13.10 [place] [phone] Ia dic[address] 2020-11-11 2020-11-11 Telephone [facility] 1.2.995.291 [id number] Univers 00:00:00 00:00:00 Joon Handy 350.1.13.10 [place] [phone] Ia dicme nal [address] [place] [address] 2020-11-11 2020-11-11 Orders Doctor GAGE 1.2.840.114 [id number] Univers 00:00:00 00:00:00 Only Unassigned, CADE 350.1.13.10 it[place] HOSPITAL 4.2.7.2.686 Oren as [phone] [address] 2020-11-10 2020-11-10 Telephone [facility] [id number] [id number] Univers 00:00:00 00:00:00 Joon Handy 350.1.13.10 [place] [phone] Ia dical nal 059 [facility] 2020-11-10 2020-11-10 Telephone [facility] 1.2.419.585 [id number] Univers 00:00:00 00:00:00 Joon Handy 350.1.13.10 [place] [phone] Ia dical nal 059 [facility] 2020-11-04 2020-11-04 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 1.2.840.114 [id number] Univers 10:03:16 10:18:16 Visit Joon Woody 350.1.13. 10 it[place] [phone] Ia dical nal 353 [facility] 2020-11-04 2020-11-04 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 1.2.840.114 [id number] [facility] 10:03:16 10:18:16 Visit Joon Woody 350.1.13. 10 it[place] [phone] Ia dical nal 353 [facility] 2020-11-04 2020-11-04 Office [facility] 1.2.840.114 [id number] Univers 09:06:37 09:51:58 Visit Joon Handy 350.1.13.10 [place] [phone] Ia dical nal 059 [facility] 2020-11-04 2020-11-04 [facility] 1.2.840.114 [id number] Univers 09:06:37 09:51:58 Visit Joon Handy 350.1.13.10 it[place] of [place]2.[place] [phone] Ia dical nal 059 [facility] 2020-11-04 2020-11-04 Outpatient R ANNALISE [facility] [id number] Univers 09:00:00 09:51:58 SENDIL ity of [facility] 2020-11-04 2020-11-04 Outpatient R WOODY, [facility] [id number] Univers 09:00:00 09:51:58 SENDIL ity [facility] 2020-11-04 2020-11-04 Outpatient R ANNALISE, [facility] [id number] Univers 09:00:00 09:00:00 SENDIL ity [facility] 2020-11-03 2020-11-03 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 1.2.840.114 [id number] Univers 14:33:53 14:48:53 Visit Nicole Padilla 350.1.13.10 it[place] [phone] Ia dic[address] 2020-11-03 2020-11-03 Tuber Machine Operator Helper 2, [facility] 1.2.840.114 [id number] Univers 14:33:53 14:48:53 Visit Nicole Padilla 350.1.13.10 it[place] [phone] Ia dicme nal 353 [facility] 2020-11-03 2020-11-03 Office Gramm, [facility] 1.2.840.114 [id number] Univers 13:46:00 14:31:02 Visit Nicole Handy 350.1.13.10 it[place] [phone] Ia dical nal 204 [facility] 2020-11-03 2020-11-03 Office Gramm, [facility] 1.2.840.114 [id number] Univers 13:46:00 14:31:02 Visit Nicole [place] 350.1.13.10 it[place] [phone] Ia dicme nal 204 [facility] 2020-11-03 2020-11-03 Outpatient R VU [facility] [id number] Univers 14:00:00 14:00:00 NICOLE ity of [facility] 2020-11-03 2020-11-03 Orders Doctor TOO 1.2.840.114 [id number] Univers 00:00:00 00:00:00 Only Unassigned, CADE 350.1.13.10 ity of [place] HOSPITAL 4.2.7.2.686 Oren as [phone] [facility] [address] 2020-11-03 2020-11-03 Orders Doctor TOO 1.2.840.114 [id number] Univers 00:00:00 00:00:00 Only Unassigned, CADE 350.1.13.10 ity of [place] HOSPITAL 4.2.7.2.686 Oren as [phone] [address] 2020-10-27 2020-10-27 Patient Doctor TOO 1.2.840.114 [id number] Univers 00:00:00 00:00:00 Secure Msg Unassigned, CADE 350.1.13.10 ity of [place] HOSPITAL 4.2.7.2.686 Oren as [phone] [facility] [address] 2020-10-26 2020-10-26 Patient Doctor TOO 1.2.840.114 [id number] Univers 00:00:00 00:00:00 Secure Msg Unassigned, CADE 350.1.13.10 ity of [place] HOSPITAL 4.2.7.2.686 Oren as [phone] [address] 2020-10-23 2020-10-23 Emergency [facility] 1.2.528.112 [id number] Univers 11:27:00 13:55:00 Jessica Handy 350.1.13.10 i ty [place] [phone] [facility] [address] 2020-10-22 2020-10-[address] [facility] 1.2.840.[id number] [place] [address] 08:27:33 09:25:24 Visit [facility] 350.1.13.10 it y of [place] 4.2.7.2.686 Oren as Elena [phone] [facility] [address] Office [facility] 2020-10-22 2020-10-22 Outpatient Florence GONSALEZ, [facility] [id number] Univers 08:30:00 08:30:00 JOSE JUAN ity of [facility] 2020-10-16 2020-10-[address] [facility] [id number] 9533 Univers 10:57:00 13:00:00 Cierra Handy 350.1.13.10 ity of [place] 4.2.7.2.686 [facility] [phone] [facility] [address] 2020-10-16 2020-10-16 Orders Doctor TOO 1.2.840.114 [id number] Univers 00:00:00 00:00:00 Only Unassigned, CADE 350.1.13.10 ity of [place] [facility] 4.2.7.2.686 [facility] [phone] [facility] [address] 2020-05-03 2020-05-03 Outpatient Young_J [facility]MM[facility]IST [facility] [id number] 021 [place] 10:34:00 10:34:00 0222 [facility] Results Test Description Test Time Test Comments Results Result Comments Source Prothrombin time with INR 2022-12-23 11:10:00 Test Item Value Reference Range Interpretation Comme nts INR (test code = 6301-6) 3.7 0.9-1.2 H Ref erence interval is for non-anticoagula ozzie patients.Sugges ozzie INR therapeutic ran ge for Vitamin Kantago nist therapy: Standa rd Dose (moderate inten sity therapeutic ran ge): 2.0 - 3.0 Higher inte nsity therapeutic ran ge 2.5 - 3.5 Prothrombin time (test 35.9 See_Comment H [Aut omated message] The code = 5902-2) system which generated this result transmit ozzie reference range : 9.1 - 12.0 sec. The refere nce range was not used to interpret this result as normal/abnormal . NIKA (test code = NIKA) Performed at: [facility] [id number] Director: Skyler Clayton MD, Phone: [phone] Lab Interpretation (test Abnormal code = 85033-1) [facility] [id number] 11:10:00 Test Item Value Reference Range Interpretation Comments INR (test code = 2.8 0.9-1.2 H Reference 6301-6) interval is for non-anticoagula te d patients.Sugges te d INR therapeut ic range for Vitam in Kantagonist therapy: Standa rd Dose (moderate intensity therapeutic range): 2.0 - 3 .0 Higher intensit y therapeutic ran ge 2.5 - 3.5 Prothrombin time 27.4 See_Comment H [Automated (test code = 5902-2) message ] The system which generated this result transmitted reference range : 9.1 - 12.0 sec. The reference range was not used to interpr et this result as normal/abnormal . NIKA (test code = NIKA) Performed at: [facility] [id number] Director: Skyler Clayton MD, Phone: [phone] Lab Interpretation Abnormal (test code = 32072-3) [facility] [id number] 16:10:00 Test Item Value Reference Range Interpretation Comments Glucose (test code = 210 mg/dL 70-99 H 2345-7) BUN (test code = 14 mg/dL 8-27 3094-0) Creatinine (test code 0.88 mg/dL 0.76-1.27 = 2160-0) eGFR (test code = 93 mL/min/1.73 >=59 26368-9) BUN/creatinine ratio 16 10-24 (test code = 3097-3) Sodium (test code = 140 mmol/L 470-305 6346-2) Potassium (test code 3.9 mmol/L 3.5-5.2 = 2823-3) Chloride (test code = 104 mmol/L 96-106 2075-0) CO2 (test code = 23 mmol/L 20-29 8-9) Calcium (test code = 8.9 mg/dL 8.6-10.2 36417-3) Protein (test code = 6.6 g/dL 6.0-8.5 2885-2) Albumin (test code = 4.0 g/dL 3.9-4.9 1751-7) Globulin, total (test 2.6 g/dL 1.5-4.5 code = 84689-0) Albumin/globulin 1.5 1.2-2.2 ratio (test code = [...] AST (test code = 25 See_Comment [Automated 192-8) message] The system which generated this result transmitted reference range : 0 - 40 IU/L. Th e reference range was not used to interpret this result as normal/abnormal . ALT (test code = 19 See_Comment [Automated 1741-6) message] The system which generated this result transmitted reference range : 0 - 44 IU/L. Th e reference range was not used to interpret this result as normal/abnormal . NIKA (test code = NIKA) Performed at: - Lab[address] [id number] Director: Skyler Clayton MD, Phone: [phone] Lab Interpretation Abnormal (test code = 46174-5) [facility] natriuretic [id number] 16:10:00 Test Item Value Reference Range Interpretation Comments BNP (test code 11.2 pg/mL 0.0-100.0 Siemens ADVIA = 76099-0) Centaur XP methodology NIKA (test code Performed at: - = NIKA) [facility] [id number] Director: Skyler Clayton MD, Phone: [phone] [facility] with platelet and [id number] 16:10:00 Test Item Value Reference Range Interpretation Comments WBC (test code = 7.0 See_Comment [Automated 8990-2) message] The system which generated this result transmitted reference range : 3.4 - 10.8 x10E3/uL. The reference range was not used to interpret this result as normal/abnormal . RBC (test code = 4.81 See_Comment [Automated 789-8) message] The system which generated this result [...] 104 See_Comment L [Autom ated code = 777-3) [...] 0 % Not Estab. (test code = 97937-3) Immature 0.0 See_Comment [Automated granulocytes, message] The absolute (test code = system which 04771-7) generated this result transmitted reference range : 0.0 - 0.1 x10E3/uL. The reference range was not used to interpret this result as normal/abnormal . NIKA (test code = NIKA) Performed at: [facility] [id number] Director: Skyler Clayton MD, Phone: [phone] Lab Interpretation Abnormal (test code = 39065-2) [facility] [id number] 16:10:00 Test Item Value Reference Range Interpretation Comments Glucose (test code = 210 mg/dL 70-99 H 2345-7) BUN (test code = 14 mg/dL 8-27 3094-0) Creatinine (test code 0.88 mg/dL 0.76-1.27 = 2160-0) eGFR (test code = 93 mL/min/1.73 >=59 02647-4) BUN/creatinine ratio 16 10-24 (test code = 3097-3) Sodium (test code = 140 mmol/L 045-184 3642-2) Potassium (test code 3.9 mmol/L 3.5-5.2 = 2823-3) Chloride (test code = 104 mmol/L 96-106 2075-0) CO2 (test code = 23 mmol/L 20-29 8-9) Calcium (test code = 8.9 mg/dL 8.6-10.2 73629-5) Protein (test code = 6.6 g/dL 6.0-8.5 2885-2) Albumin (test code = 4.0 g/dL 3.9-4.9 1751-7) Globulin, total (test 2.6 g/dL 1.5-4.5 code = 48509-9) Albumin/globulin 1.5 1.2-2.2 ratio (test code = [...] AST (test code = 25 See_Comment [Automated 1919-8) message] The system which generated this result transmitted reference range : 0 - 40 IU/L. Th e reference range was not used to interpret this result as normal/abnormal . ALT (test code = 19 See_Comment [Automated 1741-6) message] The system which generated this result transmitted reference range : 0 - 44 IU/L. Th e reference range was not used to interpret this result as normal/abnormal . NIKA (test code = NIKA) Performed at: [facility] [id number] Director: Skyler Clayton MD, Phone: [phone] Lab Interpretation Abnormal (test code = 36432-6) [facility] natriuretic [id number] 16:10:00 Test Item Value Reference Range Interpretation Comments BNP (test code 11.2 pg/mL 0.0-100.0 Siemens ADVIA = 40367-6) Centaur XP methodology NIKA (test code Performed at: - = NIKA) [facility] [id number] Director: Skyler Clayton MD, Phone: [phone] [facility] with platelet and [id number] 16:10:00 Test Item Value Reference Range Interpretation Comments WBC (test code = 7.0 See_Comment [Automated 5868-2) message] The system which generated this result transmitted reference range : 3.4 - 10.8 x10E3/uL. The reference range was not used to interpret this result as normal/abnormal . RBC (test code = 4.81 See_Comment [Automated 519-8) message] The system which generated this result [...] 104 See_Comment L [Autom ated code = 777-3) [...] 0 % Not Estab. (test code = 67273-1) Immature 0.0 See_Comment [Automated granulocytes, message] The absolute (test code = system which 59690-0) generated this result transmitted reference range : 0.0 - 0.1 x10E3/uL. The reference range was not used to interpret this result as normal/abnormal . NIKA (test code = NIKA) Performed at: [address] [place] [address] [id number] Director: Skyler Clayton MD, Phone: [phone] Lab Interpretation Abnormal (test code = 06073-2) [facility] 12 [id number] 15:49:09 Test Item Value Reference Range Interpretation Comments Ventricular rate (test 80 code = 253) Atrial rate (test code 80 = 255) DC interval (test code 98 = 266) QRSD [...] present-Vent. rate has decreased BY 4 BPM- [facility] 12 [id number] 15:49:09 Test Item Value Reference Range Interpretation Comments Ventricular rate (test 80 code = 253) Atrial rate (test code 80 = 255) DC interval (test code 98 = 266) QRSD [...] present-Vent. rate has decreased BY 4 BPM- [facility] [id number] 15:41:00 Test Item Value Reference Range Interpretation Comments Cholesterol (test code = 122 mg/dL 157-279 3025-3) Triglycerides (test code 209 mg/dL 0-149 H = 2571-8) HDL cholesterol (test 50 mg/dL >=39 code = 2085-9) VLDL cholesterol drew 33 mg/dL 5-40 (test code = 02972-0) LDL Chol Calc (NIH) (test 39 mg/dL 0-99 code = 38864-3) Non-HDL cholesterol (test 72 mg/dL 0-129 code = 29651-5) NIKA (test code = NIKA) Performed at: 01 - [address] [id number] Director: Skyler Clyaton MD, Phone: [phone] Lab Interpretation (test Abnormal code = 61190-2) [facility] [id number] 15:41:00 Test Item Value Reference Range Interpretation Comments Glucose (test code = 183 mg/dL 70-99 H 2345-7) BUN (test code = 15 mg/dL 8-27 3094-0) Creatinine (test code 0.82 mg/dL 0.76-1.27 = 2160-0) eGFR (test code = 95 mL/min/1.73 >=59 81941-8) BUN/creatinine ratio 18 10-24 (test code = 3097-3) Sodium (test code = 143 mmol/L 367-140 0492-2) Potassium (test code 4.3 mmol/L 3.5-5.2 = 2823-3) Chloride (test code = 102 mmol/L 96-106 2075-0) CO2 (test code = 26 mmol/L 20-29 8-9) Calcium (test code = 9.4 mg/dL 8.6-10.2 46462-7) Protein (test code = 6.8 g/dL 6.0-8.5 2885-2) Albumin, S (test code 4.0 g/dL 3.8-4.8 = 1751-7) Globulin, total (test 2.8 g/dL 1.5-4.5 code = 22005-5) Albumin/globulin 1.4 1.2-2.2 ratio (test code = [...] AST (test code = 38 See_Comment [Automated 1919-) message] The system which generated this result transmitted reference range : 0 - 40 IU/L. Th e reference range was not used to interpret this result as normal/abnormal . ALT (test code = 21 See_Comment [Automated 1741-08) message] The system which generated this result transmitted reference range : 0 - 44 IU/L. Th e reference range was not used to interpret this result as normal/abnormal . NIKA (test code = NIKA) Performed at: [facility] [id number] Director: Skyler Clayton MD, Phone: [phone] Lab Interpretation Abnormal (test code = 13890-4) [facility] [id number] 15:41:00 Test Item Value Reference Range Interpretation Comments Cholesterol (test code = 122 mg/dL 481-164 4012-3) Triglycerides (test code 209 mg/dL 0-149 H = 2571-8) HDL cholesterol (test 50 mg/dL >=39 code = 2085-9) VLDL cholesterol drew 33 mg/dL 5-40 (test code = 43325-2) LDL Chol Calc (NIH) (test 39 mg/dL 0-99 code = 69437-1) Non-HDL cholesterol (test 72 mg/dL 0-129 code = 21792-0) NIKA (test code = NIKA) Performed at: [facility] [address] [id number] Director: Skyler Clayton MD, Phone: [phone] Lab Interpretation (test Abnormal code = 14124-4) [facility] natriuretic [id number] 15:41:00 Test Item Value Reference Range Interpretation Comments BNP (test code 27.5 pg/mL 0.0-100.0 Siemens ADVIA = 12051-7) Centaur XP methodology NIKA (test code Performed at: 01 - = NIKA) [facility] [id number] Director: Skyler Clayton MD, Phone: [phone] [facility] with platelet and [id number] 15:41:00 Test Item Value Reference Range Interpretation Comments WBC (test code = 6.5 See_Comment [Automated 7035-2) message] The system which generated this result transmitted reference range : 3.4 - 10.8 x10E3/uL. The reference range was not used to interpret this result as normal/abnormal . RBC (test code = 4.40 See_Comment [Automated 849-8) message] The system which generated this result [...] 122 See_Comment L [Autom ated code = 487-3) message] The system which generated this result [...] 0 % Not Estab. (test code = 24386-1) Immature 0.0 See_Comment [Automated granulocytes, message] The absolute (test code = system which 02248-8) generated this result transmitted reference range : 0.0 - 0.1 x10E3/uL. The reference range was not used to interpret this result as normal/abnormal . NIKA (test code = NIKA) Performed at: [address] [place] [address] [id number] Director: Skyler Clayton MD, Phone: [phone] Lab Interpretation Abnormal (test code = 50370-3) [facility] [id number] 15:41:00 Test Item Value Reference Range Interpretation Comments Cholesterol (test code = 122 mg/dL 919-039 2151-3) Triglycerides (test code 209 mg/dL 0-149 H = 2571-8) HDL cholesterol (test 50 mg/dL >=39 code = 2085-9) VLDL cholesterol drew 33 mg/dL 5-40 (test code = 77833-4) LDL Chol Calc (NIH) (test 39 mg/dL 0-99 code = 37368-4) Non-HDL cholesterol (test 72 mg/dL 0-129 code = 88555-0) NIKA (test code = NIKA) Performed at: 01 - [facility] [place] [address] [id number] Director: Skyler Clayton MD, Phone: [phone] Lab Interpretation (test Abnormal code = 15043-7) [facility] 12 [id number] 02:53:39 Test Item Value Reference Range Interpretation [...] ECGs available-Electronical ly Signed By Rebecca GARCIA, [facility] ([id number]) on 07/31/2022 9:53:37 PM [facility] Center[facility] / [id number] 17:13:58 Test Item Value Reference Range Interpretation Comments PROTIME PATIENT (test See_Comment H [Auto mated message] code = 5964-2) The system [employer] generated this result transmitted ref erence range: 12.0 - 1 4.7 Seconds. The reference range was not used to int erpret this result as normal/abnormal . INR (test code = 6301-6) Nor mal INR <1.1; Warfarin Therap eutic range 2.0 to 3. 0 or 2.5 to 3.5, dep ending upon the indica tions. Lab Interpretation (test Abnormal code = 34098-7) [facility] [id number] 17:03:36 Test Item Value Reference Range Interpretation Comments NT-proBNP (test code 137 pg/mL See_Comment H [Autom ated = 6266894637) message] The system which generated this result transmitted reference range : <=125. The reference range was not used to interpret this result as normal/abnormal . NIKA (test code = NIKA) Biotin has been reported to cause a negative bias, interpret results relative to patient's use of biotin. Lab Interpretation Abnormal (test code = 90974-7) [facility] METABOLIC PANEL (NA, K, CL, CO2, GLUCOSE, BUN, CREATININE, CA)2022-02-22 16:57:08 Test Item Value Reference Range Interpretation Comments NA (test code = 139 mmol/L 135-145 2606279285) K (test code = 3.2 mmol/L 3.5-5.0 L 9861450238) CL (test code = 97 mmol/L 98-108 L 5352248726) CO2 TOTAL (test code = 32 mmol/L 23-31 H 6717353896) AGAP (test code = 2-16 5680395345) BUN (test code = 17 mg/dL 7-23 0056783137) GLUCOSE (test code = 333 mg/dL 70-110 H 9249589757) CREATININE (test code = 0.84 mg/dL 0.60-1.25 4122312438) CALCIUM (test code = 8.7 mg/dL 8.6-10.6 7184754812) eGFR (test code = mL/min/1.73m2 0038151950) NIKA (test code = NIKA) Association of [...] tests). Lab Interpretation Abnormal (test code = 45348-4) [facility] SARS-COV-2 ANTIGEN (BINAX NOW)2022-02-01 17:19:00 Test Item Value Reference Range Interpretation Comments POCT SARS-COV-2 ANTIGEN (test Not Detected Not Detected code = 64244-2) On board controls acceptable Yes with C Line (test code = 3574) [facility] SARS-COV-2 ANTIGEN (BINAX NOW)2022-02-01 17:19:00 Test Item Value Reference Range Interpretation Comments POCT SARS-COV-2 ANTIGEN (test Not Detected Not Detected code = 76637-7) On board controls acceptable Yes with C Line (test code = 3574) [id number]20 Test Item Value Reference Interpretation Comments Range TROPONIN I (test 0.007 ng/mL See_Comment [Automated code = 8470452030) message] The system which generated this result [...] biotin. Lab Interpretation Normal (test code = 15568-3) [id number] 02:21:18 Test Item Value Reference Range Interpretation Comments NT-proBNP (test code 79 pg/mL See_Comment [Autom ated = 0863973352) message] The system which generated this result transmitted reference range : <=125. The reference range was not used to interpret this result as normal/abnormal . NIKA (test code = NIKA) Biotin has been reported to cause a negative bias, interpret results relative to patient's use of biotin. Lab Interpretation Normal (test code = 35437-5) [facility]:12:18 Test Item Value Reference Range Interpretation Comments MAGNESIUM (test code = 4812842740) 1.9 mg/dL 1.7-2.4 Lab Interpretation (test code = Normal 13304-3) [facility] METABOLIC PANEL (11539)2022-01-27 02:11:58 Test Item Value Reference Range Interpretation Comments NA (test code = 138 mmol/L 135-145 4794843809) K (test code = 3.4 mmol/L 3.5-5.0 L 9727253405) CL (test code = 97 mmol/L 98-108 L 3431664918) CO2 TOTAL (test code = 36 mmol/L 23-31 H 5210055368) AGAP (test code = 2-16 5121457778) BUN (test code = 17 mg/dL 7-23 1764525645) GLUCOSE (test code = 267 mg/dL 70-110 H 3158763376) CREATININE (test code = 0.96 mg/dL 0.60-1.25 8520625347) TOTAL BILI (test code = 0.9 mg/dL 0.1-1.5 1438191959) CALCIUM (test code = 9.1 mg/dL 8.6-10.6 7557134392) T PROTEIN (test code = 6.9 g/dL 6.3-8.2 2693904068) ALBUMIN (test code = 4.1 g/dL 3.5-5.0 9267169279) ALK PHOS (test code = 125 U/L 34-122 H 7190699508) ALTv (test code = 24 U/L 5-50 1742-6) AST(SGOT) (test code = 46 U/L 13-40 H 7269707638) eGFR (test code = mL/min/1.73m2 6862808130) NIKA (test code = NIKA) Association of [...] tests). Lab Interpretation Abnormal (test code = 05945-9) [facility] [id number] 01:37:37 Test Item Value Reference Range Interpretation Comments WBC (test code = See_Comment [Automated 3907-2) message] The sy stem which generated this [...] RDW-SD (test code = 44.4 fL 38.5-51.6 17752-1) RDW-CV (test code = 13.2 % 12.1-15.4 788-0) PLT (test code = See_Comment L [Automated 777-3) message] The sy stem which generated this result transmitted reference range : 150 - 328 10*3/ ?L. The reference r carl was not used to interpret this result as normal/abnormal . MPV (test code = 10.7 fL 9.8-13.0 67961-9) IPF % (test code = 3.9 % 1.2-10.7 Platelet count 7036966671) measured by fluorescence method. NRBC/100 WBC (test See_Comment [Automat ed code = 4582914804) message] The system which generated this result transmitted reference range : 0.0 - 10.0 /100 WBCs. The refer ence range was not u sed to interpret th is result as normal/abnormal . NRBC x10^3 (test code See_Comment [Auto mated = 1821117869) message] The s ystem which generated this result transmitted reference range : 10*3/?L. The reference range was not used to interpret this result as normal/abnormal . GRAN MAT (NEUT) % 62.5 % (test code = 770-8) IMM GRAN % (test code 0.30 % = 7206627696) LYMPH % (test code = 27.4 % 736-9) MONO % (test code = 6.7 % 5905-5) EOS % (test code = 2.4 % 713-8) BASO % (test code = 0.7 % 706-2) GRAN MAT x10^3(ANC) 4.35 10*3/uL 1.99-6.95 (test code = 3127622575) IMM GRAN x10^3 (test 0.00-0.06 code = 7284031886) LYMPH x10^3 (test code 1.91 10*3/uL 1.09-3.23 = 731-0) MONO x10^3 (test code 0.47 10*3/uL 0.36-1.02 = 742-7) EOS x10^3 (test code = 0.17 10*3/uL 0.06-0.53 711-2) BASO x10^3 (test code 0.05 10*3/uL 0.01-0.09 = 704-7) Lab Interpretation Abnormal (test code = 15468-5) [facility] [id number] 20:05:00 Test Item Value Reference Range Interpretation Comments POCT HBA1C (test code = 4548-4) 6.3 % 4-6 A Lab Interpretation (test code = Abnormal 24430-8) [facility] [id number] 13:12:00Surgical Pathology Report Case: [id number] Authorizing Provider: Donn Mahoney MD Collected: 07/18/201609 Ordering Location: [facility] Received: 07/18/2016 1120 SERVICES Pathologist:Aaron Chang MD Specimen: Soft Tissue, Other, id only explant hardware INTRATHECAL PUMP, 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 Serial number is [id number]. The specimen is submitted for gross identification. [...] 520) < /HPF SOURCE(BEAKER) (test code = 7072) BASIC METABOLIC [id number] 13:01:00 Test Item Value Reference Range Interpretation [...] NOT APPLICABLE FOR DIALYSIS PATIEN TS. PROTHROMBIN TIME/[id number] 12:56:00 Test Item Value Reference Range Interpretation Comments PROTIME (BEAKER) (test code = 13.5 seconds 11.7-14.7 759) INR (BEAKER) (test code = 370) 1.0 <=5.9 RECOMMENDED COUMADIN/WARFARIN INR THERAPY RANGESSTANDARD DOSE: 2.0 - 3.0 Includes: PROPHYLAXIS for venous thrombosis, systemic embolization; TREATMENT for venous thrombosis and/or pulmonary embolus.HIGH RISK: Target INR is 2.5-3.5 for patients with mechanical heart valves.[id number] 12:56:00 Test Item Value Reference Range Interpretation Comments PARTIAL THROMBOPLASTIN TIME 32.0 seconds 22.5-36.0 (BEAKER) (test code = 760) CBC W/PLT COUNT & AUTO [id number] 12:48:00 Test Item Value Reference Range Interpretation [...]
[2023-01-01 14:28] LABS: Absolute Lymphocytes (CBC) 1.4 K/uL (0.7-4.9); Hematocrit 45.7 % (39.6-49.0); Lymphocytes % 16.7 % (15.3-44.8); MCV 95.2 fL (80-100); MPV 7.9 fL (7.6-11.3); Platelets 106 thou/uL (152-406)
[2023-01-01] MEDS ORDERED: MORPHINE 4 MG/ML SYR ONE (14:33)
[2023-01-01] MEDS ORDERED: NA CHLORIDE 0.9% 1,000 ML ONE (14:33)
[2023-01-01 14:47] LABS: Bilirubin Total 0.9 mg/dL (0.2-1.0); Potassium 2.8 mEq/L (3.5-5.1); Protein, Total 6.6 g/dL (6.4-8.2)
[2023-01-01 14:51] LABS: Specific Gravity 1.027 (1.005-1.030); Urine Bacteria <20 /HPF (<20); Urine Bilirubin NEGATIVE (Negative); Urine Blood 3+ (OVER) (Negative); Urine Clarity Extremely Turbid (Clear); Urine Color Yellow (Yellow); Urine Glucose NEGATIVE (Negative); Urine Mucus 4+ /HPF (None Seen); Urine Protein 2+ (Negative); Urine RBC >50 /HPF (None Seen); Urine Urobilinogen 1+ (Normal)
--- NOTE | 2023-01-01 15:26 | EDPHYS ---
Physician Documentation [facility] Name: Jayson Joe Sr Age: 72 yrs Sex: Male : 1950 Arrival Date: 01/01/2023 Time: 14:00 Bed 14 Private MD: ED Physician Anival Castro HPI: 01/01 14:04 This 72 yrs old Male presents to ER via Unassigned with complaints of abd pain. ec2 14:04 Patient arrives today due to concern for nausea, vomiting, diarrhea as well as upper ec2 abdominal pain. Patient reports that has been having symptoms for approximately a week. Patient states that his initially was sick with viral symptoms and subsequently gotten better however his symptoms have persisted. Patient reports no fevers or chills, states decreased p.o. intake, states that he feels nauseous. EMS also gave history, states that they gave him Phenergan as well which is reportedly helping his symptoms. Patient reports significant loose stools as well.. Historical: - Allergies: 14:04 PENICILLINS; mb9 - Home Meds: 14:04 warfarin 5 mg Oral tablet daily [Active]; gabapentin 300 mg Oral capsule [Active]; mb9 allopurinol 300 mg Oral tablet daily [Active]; bumetanide 2 mg Oral tablet 2 in the morning [Active]; carvedilol 6.25 mg Oral tablet twice a day [Active]; cephalexin 500 mg Oral capsule [Active]; Farxiga 10 mg Oral tablet daily [Active]; mexiletine 200 mg Oral capsule three times a day [Active]; spironolactone 25 mg Oral tablet [Active]; sertraline 100 mg Oral tablet twice a day [Active]; Rybelsus 7 mg Oral tablet twice a day [Active]; omeprazole 40 mg Oral capsule daily [Active]; - PMHx: 14:04 Hypertensive disorder; Chronic obstructive lung disease; pacemaker/defibrilator; mb9 Stroke/TIA; High Cholesterol; Parkinson's disease; Cerebrovascular accident; Congestive heart failure; diabetes mellitus; Gout; pain pump; - PSHx: 14:04 Cholecystectomy; Appendectomy; back; dental; neck; foot; mb9 - Immunization history:: Adult Immunizations up to date. - Social history:: Smoking status: Patient denies any tobacco usage or history of. ROS: 14:04 Constitutional: as per hpi ec2 Exam: 14:04 Constitutional: GEN: NAD Head: atraumatic Eyes: EOMI Ears: External ears are ec2 normal. CV: regular rate LUNGS: no respiratory distress ABD: non-distended, obese, tender in the epigastrium, no guarding, not rigid SKIN: no evidence of rashes MSK: no evidence of trauma NEURO: moves all extremities equally Vital Signs: 14:03 BP 153 / 90; Pulse 93; Resp 18; Temp 98.1(O); Pulse Ox 97% on R/A; Weight 157.85 kg; mb9 Height 6 ft. 0 in. ; Pain 6/10; 14:49 BP 154 / 77; Pulse 95; Resp 18; Pulse Ox 96% on R/A; mb9 15:24 BP 150 / 74; Pulse 86; Resp 16; Pulse Ox 99% on R/A; mb9 14:03 Body Mass Index 47.20 (157.85 kg, 182.88 cm) mb9 14:03 Pain Scale: Adult mb9 MDM: 14:03 Patient medically screened. ec2 14:04 ED course: Patient arrives today due to concern for epigastric abdominal pain with ec2 associated nausea, vomiting, diarrhea. Examination remarkable for well-appearing nontoxic individual is otherwise obese to have some mild tenderness to palpation in the epigastrium. Will obtain lab work, CT scan of the abdomen pelvis and treat the patient's with crystalloid and morphine. Currently considering intra-abdominal infection however have a low clinical suspicion for acute bacterial infection, have a higher suspicion for viral process given the patient's sick contacts with similar symptoms. Additionally considered urinary tract infection, low suspicion for pulmonary pathology. . 15:00 ED course: Patient refused CT scan.. ec2 15:20 ED course: Patient's lab work remarkable for reassuring CBC without leukocytosis, ec2 metabolic profile shows slight hypokalemia with a potassium of 2.8. No evidence of significant renal dysfunction, liver profile is generally unremarkable, urine is questionably infectious appearing with WBCs present however no leukoesterase, no nitrites, will defer antibiotic management of the urine at this point and defer to culture. Lipase within normal ranges. On reassessment patient is well-appearing in no acute distress. I suspect patient's symptoms are secondary to gastroenteritis given the patient's HPI. I will discharge home, instructed on potassium rich food and to follow-up with the primary care doctor. Return precautions given. . 15:26 Data reviewed: vital signs. ec2 01/01 14:03 Order name: CBC with Diff; Complete Time: 15:19 ec2 01/01 14:03 Order name: CMP; Complete Time: 15:19 ec2 01/01 14:03 Order name: Lipase; Complete Time: 15:19 ec2 01/01 14:03 Order name: Urinalysis w/ reflexes; Complete Time: 15:19 ec2 01/01 14:54 Order name: Urine Culture EDMS 01/01 14:03 Order name: IV Saline Lock; Complete Time: 14:17 ec2 01/01 14:03 Order name: Labs collected and sent; Complete Time: 14:17 ec2 Administered Medications: 14:49 Drug: NS 0.9% IV 1000 ml IV at 1 bolus Per protocol; 1000 mL bolus Route: IV; Rate: 1 mb9 bolus; Site: left hand; 14:49 Drug: morphine IVP or IV 4 mg IVP once over 4 mins Route: IVP; Infused Over: 4 mins; mb9 Site: left hand; 15:09 Follow up: Response: No adverse reaction mb9 Disposition Summary: 01/01/23 15:25 Discharge Ordered Notes: Location: Home ec2 Condition: Stable ec2 Diagnosis - Viral Illness ec2 Discharge Instructions: - Discharge Summary Sheet ec2 - Viral Gastroenteritis, Adult, [id number] ec2 Forms: - Medication Reconciliation Form ec2 - Thank You Letter ec2 - Antibiotic Education ec2 - Prescription Opioid Use ec2 - Patient Portal Instructions ec2 - Leadership Thank You Letter ec2 Prescriptions: - Zofran 4 mg Oral Tablet - take 1 tablet ORAL route every 12 hours As needed; 20 tablet; Refills: 0, ec2 Product Selection Permitted Signatures: Dispatcher [employer] Carla Somers RN RN mb9 Anival Castro MD MD ec2 Corrections: (The following items were deleted from the chart) 14:45 14:04 Abdomen Pelvis W Con+CT.RAD.BRZ ordered. EDMS EDMS
--- NOTE | 2023-01-01 15:26 | ER ---
Nurse's Notes [facility] Name: Jayson Joe Sr Age: 72 yrs Sex: Male : 1950 Arrival Date: 01/01/2023 Time: 14:00 Bed 14 Private MD: Diagnosis: Viral Illness Presentation: 01/01 14:03 Chief complaint: EMS states: "toned out for N/V/D and general malaise since . mb9 BGL 124, gave 25 mg of Phenergan via 20 g to left hand" Pt denies SOB/CP. Coronavirus screen: Vaccine status: Patient reports being unvaccinated. Ebola Screen: No symptoms or risks identified at this time. Initial Sepsis Screen: Does the patient meet any 2 criteria? No. Patient's initial sepsis screen is negative. Does the patient have a suspected source of infection? No. Patient's initial sepsis screen is negative. Risk Assessment: Do you want to hurt yourself or someone else? Patient reports no desire to harm self or others. Onset of symptoms was January 01, 2023. 14:03 Method Of Arrival: Ambulatory mb9 14:03 Acuity: LEO 3 mb9 Triage Assessment: 14:05 General: Appears in no apparent distress. Behavior is calm, cooperative. Pain: mb9 Complains of pain in abdomen Pain does not radiate. Quality of pain is described as throbbing, Pain began 2-3 days ago. Is continuous. EENT: No signs and/or symptoms were reported regarding the EENT system. Neuro: Diaz Agitation-Sedation Scale (RASS): 0 - Alert and Calm Level of Consciousness is awake, alert, obeys commands, Oriented to person, place, time, situation, Appropriate for age. Cardiovascular: Heart tones S1 S2 present Patient's skin is warm and dry. Respiratory: Airway is patent Respiratory effort is even, unlabored, Respiratory pattern is regular, symmetrical, Breath sounds are clear bilaterally. GI: Abdomen is round obese, Bowel sounds present X 4 quads. Abd is soft Abdomen is tender to palpation in right upper quadrant and right lower quadrant Reports diarrhea, nausea, vomiting. : No signs and/or symptoms were reported regarding the genitourinary system. Derm: Skin is pink, warm \\T\\ dry. Musculoskeletal: Range of motion: intact in all extremities. Historical: - Allergies: 14:04 PENICILLINS; mb9 - Home Meds: 14:04 warfarin 5 mg Oral tablet daily [Active]; gabapentin 300 mg Oral capsule [Active]; mb9 allopurinol 300 mg Oral tablet daily [Active]; bumetanide 2 mg Oral tablet 2 in the morning [Active]; carvedilol 6.25 mg Oral tablet twice a day [Active]; cephalexin 500 mg Oral capsule [Active]; Farxiga 10 mg Oral tablet daily [Active]; mexiletine 200 mg Oral capsule three times a day [Active]; spironolactone 25 mg Oral tablet [Active]; sertraline 100 mg Oral tablet twice a day [Active]; Rybelsus 7 mg Oral tablet twice a day [Active]; omeprazole 40 mg Oral capsule daily [Active]; - PMHx: 14:04 Hypertensive disorder; Chronic obstructive lung disease; pacemaker/defibrilator; mb9 Stroke/TIA; High Cholesterol; Parkinson's disease; Cerebrovascular accident; Congestive heart failure; diabetes mellitus; Gout; pain pump; - PSHx: 14:04 Cholecystectomy; Appendectomy; back; dental; neck; foot; mb9 - Immunization history:: Adult Immunizations up to date. - Social history:: Smoking status: Patient denies any tobacco usage or history of. Screenin:26 [facility] ED Fall Risk Assessment (Adult) History of falling in the last 3 months, mb9 including since admission No falls in past 3 months (0 pts) Confusion or Disorientation No (0 pts) Intoxicated or Sedated No (0 pts) Impaired Gait No (0 pts) Mobility Assist Device Used No (0 pt) Altered Elimination No (0 pt) Score/Fall Risk Level 0 - 2 = Low Risk Oriented to surroundings, Maintained a safe environment, Educated pt \\T\\ family on fall prevention, incl call for assistance when getting out of bed. Abuse screen: Denies threats or abuse. Nutritional screening: No deficits noted. Tuberculosis screening: No symptoms or risk factors identified. Assessment: 14:07 Reassessment: see triage assessment. mb9 14:26 Reassessment: pt taken to CT via stretcher. mb9 15:23 Reassessment: No changes from previously documented assessment. Patient and/or family mb9 updated on plan of care and expected duration. Pain level reassessed. Patient is alert, oriented x 3, equal unlabored respirations, skin warm/dry/pink. Vital Signs: 14:03 BP 153 / 90; Pulse 93; Resp 18; Temp 98.1(O); Pulse Ox 97% on R/A; Weight 157.85 kg; mb9 Height 6 ft. 0 in. ; Pain 6/10; 14:49 BP 154 / 77; Pulse 95; Resp 18; Pulse Ox 96% on R/A; mb9 15:24 BP 150 / 74; Pulse 86; Resp 16; Pulse Ox 99% on R/A; mb9 14:03 Body Mass Index 47.20 (157.85 kg, 182.88 cm) mb9 14:03 Pain Scale: Adult mb9 ED Course: 14:03 Patient arrived in ED. mb9 14:03 Anival Castro MD is Attending Physician. ec2 14:04 Triage completed. mb9 14:04 Arm band placed on. mb9 14:17 Carla Lilly RN is Primary Nurse. mb9 14:17 CBC with Diff Sent. mb9 14:17 CMP Sent. mb9 14:17 Lipase Sent. mb9 14:24 Urinalysis w/ reflexes Sent. mb9 14:24 Inserted saline lock: 22 gauge in right antecubital area, using aseptic technique. mb9 Blood collected. 14:25 Placed in gown. Bed in low position. Call light in reach. Side rails up X 1. Client mb9 placed on continuous cardiac and pulse oximetry monitoring. NIBP monitoring applied. court monitor on. 14:25 Maintain EMS IV. Dressing intact. Good blood return noted. Site clean \\T\\ dry. Gauge \\T\\ mb 9 site: 20 g to left hand. 14:26 No provider procedures requiring assistance completed. mb9 14:43 Note: ct not done, pt on table and about to scan, he began yelling to get him out. I sj told him he could not get up until i got the table down. after the table was lowered, I told him i would call the er to see if they could give him meds. He told me he has been sick for several days and just over it. He is also claustrophobic. While on phone with er, he stated for me to take him back, he doesn't want the cat scan. pt brought back to er.. Patient moved to CT via stretcher. 15:09 Urine Culture Sent. mb9 15:33 IV discontinued, intact, bleeding controlled, No redness/swelling at site. Pressure mb9 dressing applied. Administered Medications: : Drug: NS 0.9% IV 1000 ml IV at 1 bolus Per protocol; 1000 mL bolus Route: IV; Rate: 1 mb9 bolus; Site: left hand; 14:49 Drug: morphine IVP or IV 4 mg IVP once over 4 mins Route: IVP; Infused Over: 4 mins; mb9 Site: left hand; 15:09 Follow up: Response: No adverse reaction mb9 Medication: 14:25 VIS not applicable for this client. mb9 Outcome: 15: Discharge ordered by . ec2 15:33 Discharged to home ambulatory, 15:33 Condition: stable 15:33 Discharge instructions given to patient, Instructed on discharge instructions, follow up and referral plans. Demonstrated understanding of instructions, follow-up care, medications, Prescriptions given X 1, 15:33 Patient left the ED. 9 Signatures: Kamilla Reynolds, Carla Byers RN RN mb9 Anival Castro MD MD ec2 Corrections: (The following items were deleted from the chart) 14: 14:03 Chief complaint: EMS states: "toned out for N/V/D and general malaise since 9 ." Pt denies SOB/CP 9 15:24 15:24 BP 105 / 74; Pulse 86bpm; Resp 16bpm; Pulse Ox 99% RA; mb9 9
== END 2023-01-01 15:33 | disposition home or self-care (01) ==
LOC: ER 14:00
DX: B34.9 Viral infection, unspecified (principal); I10 Essential (primary) hypertension; J44.9 Chronic obstructive pulmonary disease, unspecified; I50.9 Heart failure, unspecified; Z95.810 Presence of automatic (implantable) cardiac defibrillator; Z79.01 Long term (current) use of anticoagulants; Z88.0 Allergy status to penicillin
CPT/HCPCS: 87088; 85025; 81001; 87086; 36415; 83690; 80053; 96374; 99285; J7030

== ENCOUNTER 2023-02-26 11:09 | Observation (INO) | payer MEDICARE ==
[2023-02-26 11:39] LABS: Absolute Lymphocytes (CBC) 2.5 K/uL (0.7-4.9); Lymphocytes % 22.6 % (15.3-44.8); MCV 96.8 fL (80-100); MPV 8.2 fL (7.6-11.3); Platelets 130 thou/uL (152-406); RBC Red Blood Cell Count 4.65 M/uL (4.33-5.43)
[2023-02-26] MEDS ORDERED: NA CHLORIDE 0.9% 1,000 ML ONE (11:40)
[2023-02-26 11:49] LABS: Protime INR 4.17
[2023-02-26 11:59] LABS: Albumin 3.5 g/dL (3.4-5.0); Bilirubin Direct 0.3 mg/dL (0-0.2); Bilirubin Indirect, Calculated 0.6 mg/dL (0.2-0.8); Bilirubin Total 0.9 mg/dL (0.2-1.0); Magnesium 2.1 mg/dL (1.6-2.4); Potassium 3.6 mEq/L (3.5-5.1); Protein, Total 7.3 g/dL (6.4-8.2); Troponin High Sensitivity 6.9 pg/mL (<58.9)
[2023-02-26 12:06] LABS: Specific Gravity 1.029 (1.005-1.030); Urine Bilirubin NEGATIVE (Negative); Urine Blood Negative (Negative); Urine Clarity Clear (Clear); Urine Color Yellow (Yellow); Urine Glucose 4+ (Over) (Negative); Urine Protein NEGATIVE (Negative); Urine Urobilinogen Normal (Normal); Urine pH 6.5 (5.0-7.0)
[2023-02-26 12:23] LABS: SARS-COV-2 RT PCR NEGATIVE (NEGATIVE)
--- NOTE | 2023-02-26 12:25 | RAD REPORT ---
EXAM DESCRIPTION: RADChest Single View02/26/2023 11:43 am CLINICAL HISTORY: DYSPNEA COMPARISON: Chest Single View dated 12/17/2022; Chest Single View dated 07/14/2022; Chest Single View d ated 06/10/2022 TECHNIQUE: Portable AP view of the chest. FINDINGS: Decreased inspiratory effort and some under penetration somewhat limit evaluation. Left ch est wall pacer/ AICD in place. Mild central interstitial prominence. Streaky left infrahilar opacitie s. No pneumothorax or effusion. The cardiomediastinal contours are unremarkable. IMPRESSION: Streaky left infrahilar opacities, may reflect atelectasis or early pneumonia, allowing for limitations mentioned above.
--- NOTE | 2023-02-26 13:46 | RAD REPORT ---
EXAM DESCRIPTION: CT - Thorax Wo Con CLINICAL HISTORY: Chest pain COUGH COMPARISON: Chest For Pe Angio dated 07/14/2022 FINDINGS: The lungs are clear. No pleural thickening or pleural effusion. No pneumothorax. Pacer dev ice is noted. No axillary, mediastinal or hilar adenopathy. No concerning bony finding. No gross upper abdominal finding. All CT scans are performed using dose optimization technique as appropriate and may include automated exposure control or mA/KV adjustment according to patient size. IMPRESSION: No acute intrathoracic finding appreciated.
--- NOTE | 2023-02-26 14:30 | EDPHYS ---
Physician Documentation [facility] Name: Jayson Joe Sr Age: 72 yrs Sex: Male : 1950 Arrival Date: 02/26/2023 Time: 11:09 Bed 4 Private MD: SALUD Physician Jared Escobar HPI: 02/26 14:21 This 72 yrs old Male presents to ER via Ambulatory with complaints of Low BP, colin Breathing Difficulty. 14:21 The patient has shortness of breath with light activity. Onset: The symptoms/episode colin began/occurred 2 day(s) ago. Duration: The symptoms are continuous, but are steadily getting better. The patient's shortness of breath has no apparent modifying factors. Associated signs and symptoms: The patient has no apparent associated signs or symptoms. Severity of symptoms: At their worst the symptoms were mild in the emergency department the symptoms are unchanged. The patient has experienced similar episodes in the past, several times. Historical: - Allergies: 11:23 PENICILLINS; hb - Home Meds: 11:30 warfarin 5 mg Oral tablet daily [Active]; allopurinol 300 mg Oral tablet daily hb [Active]; bumetanide 2 mg Oral tablet 2 in the morning [Active]; carvedilol 6.25 mg Oral tablet twice a day [Active]; cephalexin 500 mg Oral capsule [Active]; Farxiga 10 mg Oral tablet daily [Active]; gabapentin 300 mg Oral capsule [Active]; mexiletine 200 mg Oral capsule three times a day [Active]; nystatin Topical [Active]; Nystop Topical [Active]; omeprazole 40 mg Oral capsule daily [Active]; Potassium Chloride Oral [Active]; Rybelsus 7 mg Oral tablet twice a day [Active]; sertraline 100 mg Oral tablet twice a day [Active]; spironolactone 25 mg Oral tablet [Active]; - PMHx: 11:23 Cerebrovascular accident; High Cholesterol; Gout; Congestive heart failure; hb pacemaker/defibrilator; Parkinson's disease; Hypertensive disorder; pain pump; Stroke/TIA; Chronic obstructive lung disease; diabetes mellitus; - PSHx: 11:23 Appendectomy; back; dental; Cholecystectomy; foot; neck; hb - Immunization history:: Adult Immunizations unknown. - Social history:: Smoking status: unknown. ROS: 14:22 Constitutional: Negative for fever, chills, and weight loss, Eyes: Negative for injury, colin pain, redness, and discharge, ENT: Negative for injury, pain, and discharge, Neck: Negative for injury, pain, and swelling, Abdomen/GI: Negative for abdominal pain, nausea, vomiting, diarrhea, and constipation, Back: Negative for injury and pain, : Negative for injury, bleeding, discharge, and swelling, MS/Extremity: Negative for injury and deformity, Skin: Negative for injury, rash, and discoloration, Neuro: Negative for headache, weakness, numbness, tingling, and seizure, Psych: Negative for depression, anxiety, suicide ideation, homicidal ideation, and hallucinations, Allergy/Immunology: Negative for hives, rash, and allergies, Endocrine: Negative for neck swelling, polydipsia, polyuria, polyphagia, and marked weight changes, Hematologic/Lymphatic: Negative for swollen nodes, abnormal bleeding, and unusual bruising, 14:22 Cardiovascular: Positive for chest pain, 14:22 Respiratory: Positive for shortness of breath, Exam: 14:22 Constitutional: This is a well developed, well nourished patient who is awake, alert, colin and in no acute distress. Head/Face: Normocephalic, atraumatic. Eyes: Pupils equal round and reactive to light, extra-ocular motions intact. Lids and lashes normal. Conjunctiva and sclera are non-icteric and not injected. Cornea within normal limits. Periorbital areas with no swelling, redness, or edema. ENT: Nares patent. No nasal discharge, no septal abnormalities noted. Tympanic membranes are normal and external auditory canals are clear. Oropharynx with no redness, swelling, or masses, exudates, or evidence of obstruction, uvula midline. Mucous membranes moist. Neck: Trachea midline, no thyromegaly or masses palpated, and no cervical lymphadenopathy. Supple, full range of motion without nuchal rigidity, or vertebral point tenderness. No Meningismus. Chest/axilla: Normal chest wall appearance and motion. Nontender with no deformity. No lesions are appreciated. Cardiovascular: Regular rate and rhythm with a normal S1 and S2. No gallops, murmurs, or rubs. Normal PMI, no JVD. No pulse deficits. Abdomen/GI: Soft, non-tender, with normal bowel sounds. No distension or tympany. No guarding or rebound. No evidence of tenderness throughout. Back: No spinal tenderness. No costovertebral tenderness. Full range of motion. Male : Normal genitalia with no discharge or lesions. Skin: Warm, dry with normal turgor. Normal color with no rashes, no lesions, and no evidence of cellulitis. MS/ Extremity: Pulses equal, no cyanosis. Neurovascular intact. Full, normal range of motion. Neuro: Awake and alert, GCS 15, oriented to person, place, time, and situation. Cranial nerves II-XII grossly intact. Motor strength 5/5 in all extremities. Sensory grossly intact. Cerebellar exam normal. Normal gait. Psych: Awake, alert, with orientation to person, place and time. Behavior, mood, and affect are within normal limits. 14:22 ECG was reviewed by the Attending Physician. 14:22 Respiratory: Exam negative for acute changes, Vital Signs: 11:20 BP 119 / 97; Pulse 81; Resp 20; Temp 98.3(O); Pulse Ox 97% on R/A; Weight 161.93 kg; hb Height 6 ft. 0 in. ; Pain 0/10; 11:31 BP 119 / 97; Pulse 85; Resp 17; Pulse Ox 96% on R/A; ld1 12:30 BP 127 / 95; Pulse 80; Resp 18; Pulse Ox 94% on R/A; ld1 14:00 BP 131 / 94; Pulse 82; Resp 18; Pulse Ox 97% on R/A; ld1 16:30 BP 129 / 91; Pulse 80; Resp 18; Pulse Ox 96% on R/A; ld1 11:20 Body Mass Index 48.42 (161.93 kg, 182.88 cm) hb 11:20 Pain Scale: Adult hb MDM: 11:15 Patient medically screened. colin 14:22 Differential diagnosis: Anemia CHF exacerbation, abnormal EKG, anxiety, coronary artery colin disease chest wall pain, hiatal hernia, pancreatitis, pericarditis, pneumonia, pulmonary embolus, stable angina, thoracic aortic disection, unstable angina, Myocardial Infarction pulmonary edema, Pulmonary Embolism reactive airway disease. Antibiotic administration: Not indicated. HEART Score: History: Slightly Suspicious (0), ECG: Non specific repolarization disturbance / LBTB / PM (1), Age: > or = 65 years (2), Risk Factors: > or = 3 Risk factors for atherosclerotic disease (2), [Hypercholesterolemia] [Hypertension] [+ Family HX] [Obesity] Troponin: < or = 1 x Normal Limit (0). The patient was not given aspirin in the Emergency Department. Not indicated due to patient's past medical history. POLO Risk Score: 1 - patient's age is greater or equal to 65 years, 1 - Three or more CAD risk factors, 1- Known CAD, TOTAL SCORE = 3. Immunization status: Pneumococcal vaccine: within last 5 years. Influenza vaccine: within last 5 years. Data reviewed: vital signs, nurses notes, lab test result(s), EKG, radiologic studies, CT scan, doppler, plain films. Consideration of Admission/Observation Patient was admitted/placed on observation. Escalation of care including admission/observation considered. I considered the following discharge prescriptions or medication management in the emergency department Medications were administered in the Emergency Department. See MAR. Historians other than the Patient: EMS: WELL INFORMED. PT WELL INFORMED. Care significantly affected by the following chronic conditions: Diabetes, Hypertension, Congestive Heart Failure, Obesity. 02/26 11:18 Order name: Basic Metabolic Panel; Complete Time: 13:05 [facility] 02/26 11:18 Order name: CBC with Diff; Complete Time: 13:05 [facility] 02/26 11:18 Order name: LFT's; Complete Time: 13:05 [facility] 02/26 11:18 Order name: Magnesium; Complete Time: 13:05 [facility] 02/26 11:18 Order name: NT PRO-BNP; Complete Time: 13:05 [facility] 02/26 11:18 Order name: PT-INR; Complete Time: 13:05 [facility] 02/26 11:18 Order name: Troponin HS; Complete Time: 13:05 [facility] 02/26 11:18 Order name: Lipase; Complete Time: 13:05 [facility] 02/26 11:18 Order name: Blood Culture Adult (2) [facility] 02/26 11:18 Order name: Lactate w/ 2H reflex if indic.; Complete Time: 13:05 [facility] 02/26 11:18 Order name: Urinalysis w/ reflexes; Complete Time: 13:05 [facility] 02/26 11:18 Order name: COVID-19/FLU A+B/RSV; Complete Time: 13:05 [facility] 02/26 16:01 Order name: Troponin High Sensitivity [facility] 02/26 16:01 Order name: Troponin High Sensitivity [facility] 02/26 16:01 Order name: Troponin High Sensitivity [facility] 02/26 11:18 Order name: XRAY Chest (1 view); Complete Time: 13:05 [facility] 02/26 13:06 Order name: CT Chest Wo Con; Complete Time: 14:14 [facility] 02/26 14:14 Order name: US Extremity Venous W Compression Juan Miguel; Complete Time: 16:04 [facility] 02/26 14:23 Order name: CT Chest For PE Angio; Complete Time: 16:04 02/26 11:18 Order name: EKG; Complete Time: 11:19 [facility] 02/26 11:18 Order name: Cardiac monitoring; Complete Time: 11:30 [facility] 02/26 11:18 Order name: EKG - Nurse/Tech; Complete Time: :30 [facility] 02/26 11:18 Order name: IV Saline Lock; Complete Time: : [facility] 02/26 11:18 Order name: Labs collected and sent; Complete Time: 11: [facility] 02/26 11:18 Order name: O2 Per Protocol; Complete Time: : [facility] 02/26 11:18 Order name: O2 Sat Monitoring; Complete Time: :31 [facility] EC:22 Rate is 81 beats/min. Rhythm is regular. QRS [place] is Normal. LA interval is normal. QRS colin interval is normal. QT interval is normal. No Q waves. T waves are Normal. No ST changes noted. Clinical impression: Abnormal EKG without significant change and No evidence of ischemia. Interpreted by me. Reviewed by me. Administered Medications: 11:52 Drug: NS 0.9% IV 1000 ml IV at 125 ml/hr continuous Route: IV; Rate: 125 ml/hr; Site: ld1 left forearm; Disposition Summary: 02/26/23 14:29 Hospitalization Ordered Notes: Hospitalization Status: Observation colin Provider: Jeremiah Jay cha Location: Telemetry/MedSurg (observation) colin Condition: Fair colin Problem: new colin Symptoms: have improved colin Bed/Room Type: Standard colin Room Assignment: 222(02/26/23 16:07) bd Diagnosis - Chest pain, unspecified colin - Dyspnea colin - Presence of cardiac pacemaker colin - Obesity, unspecified colin - snf (current) use of anticoagulants - coumadin colin Forms: - Medication Reconciliation Form colin - SBAR form colin - Leadership Thank You Letter colin Signatures: Dispatcher [employer] EDMS Dirrim, Chacha bd Shawn, Jared, MD MD colin Lucas, Anu, RN RN Rosa Canada RN RN ld1 Candice Hurtado RN RN nj1 Corrections: (The following items were deleted from the chart) 16: 14:29 colin alexander
--- NOTE | 2023-02-26 14:30 | ER ---
Nurse's Notes [facility] Name: Jayson Joe Sr Age: 72 yrs Sex: Male : 1950 Arrival Date: 02/26/2023 Time: 11:09 Bed 4 Private MD: Diagnosis: Chest pain, unspecified;Dyspnea;Presence of cardiac pacemaker;Obesity, unspecified;watermaster (current) use of anticoagulants-coumadin Presentation: 02/26 11:20 Chief complaint: Home health nurse sent for positive orthostatics this mornin/56 hb supine, 114/54 sitting, 82/64 standing. Pt reports intermittent left sided chest pain and SOB x 2 days. Coronavirus screen: Client presents with at least one sign or symptom that may indicate coronavirus-19. Provider contacted for isolation considerations. Ebola Screen: No symptoms or risks identified at this time. Initial Sepsis Screen: Does the patient meet any 2 criteria? No. Patient's initial sepsis screen is negative. Does the patient have a suspected source of infection? No. Patient's initial sepsis screen is negative. Risk Assessment: Do you want to hurt yourself or someone else? Patient reports no desire to harm self or others. Onset of symptoms was February 25, 2023. 11:20 Method Of Arrival: Ambulatory hb 11:20 Acuity: LEO 3 hb Triage Assessment: 11:33 Respiratory: Onset: The symptoms/episode began/occurred. nj1 Historical: - Allergies: 11:23 PENICILLINS; hb - Home Meds: 11:30 warfarin 5 mg Oral tablet daily [Active]; allopurinol 300 mg Oral tablet daily hb [Active]; bumetanide 2 mg Oral tablet 2 in the morning [Active]; carvedilol 6.25 mg Oral tablet twice a day [Active]; cephalexin 500 mg Oral capsule [Active]; Farxiga 10 mg Oral tablet daily [Active]; gabapentin 300 mg Oral capsule [Active]; mexiletine 200 mg Oral capsule three times a day [Active]; nystatin Topical [Active]; Nystop Topical [Active]; omeprazole 40 mg Oral capsule daily [Active]; Potassium Chloride Oral [Active]; Rybelsus 7 mg Oral tablet twice a day [Active]; sertraline 100 mg Oral tablet twice a day [Active]; spironolactone 25 mg Oral tablet [Active]; - PMHx: 11:23 Cerebrovascular accident; High Cholesterol; Gout; Congestive heart failure; hb pacemaker/defibrilator; Parkinson's disease; Hypertensive disorder; pain pump; Stroke/TIA; Chronic obstructive lung disease; diabetes mellitus; - PSHx: 11:23 Appendectomy; back; dental; Cholecystectomy; foot; neck; hb - Immunization history:: Adult Immunizations unknown. - Social history:: Smoking status: unknown. Screenin:33 [facility] ED Fall Risk Assessment (Adult) Score/Fall Risk Level 0 - 2 = Low Risk nj1 Oriented to surroundings, Maintained a safe environment, Hourly rounding (assess needs \T\ fall precautionary measures) done. Abuse screen: Denies threats or abuse. Denies injuries from another. Nutritional screening: No deficits noted. Tuberculosis screening: No symptoms or risk factors identified. Assessment: 11:30 General: Appears in no apparent distress. comfortable, Behavior is calm, cooperative, nj1 appropriate for age. Pain: Denies pain. Neuro: Level of Consciousness is awake, alert, obeys commands, Oriented to person, place, time, situation. Cardiovascular: Patient's skin is warm and dry. Rhythm is Respiratory: Airway is patent Respiratory effort is even, unlabored. 11:34 Respiratory: Reports shortness of breath Intermittent for 2 weeks. nj1 11:52 Reassessment: Patient appears in no apparent distress at this time. No changes from ld1 previously documented assessment. Patient and/or family updated on plan of care and expected duration. Pain level reassessed. Patient is alert, oriented x 3, equal unlabored respirations, skin warm/dry/pink. 14:00 Reassessment: Patient appears in no apparent distress at this time. No changes from ld1 previously documented assessment. Patient and/or family updated on plan of care and expected duration. Pain level reassessed. 16:35 Reassessment: Patient appears in no apparent distress at this time. No changes from ld1 previously documented assessment. Patient and/or family updated on plan of care and expected duration. Pain level reassessed. Vital Signs: 11:20 BP 119 / 97; Pulse 81; Resp 20; Temp 98.3(O); Pulse Ox 97% on R/A; Weight 161.93 kg; hb Height 6 ft. 0 in. ; Pain 0/10; 11:31 BP 119 / 97; Pulse 85; Resp 17; Pulse Ox 96% on R/A; ld1 12:30 BP 127 / 95; Pulse 80; Resp 18; Pulse Ox 94% on R/A; ld1 14:00 BP 131 / 94; Pulse 82; Resp 18; Pulse Ox 97% on R/A; ld1 16:30 BP 129 / 91; Pulse 80; Resp 18; Pulse Ox 96% on R/A; ld1 11:20 Body Mass Index 48.42 (161.93 kg, 182.88 cm) hb 11:20 Pain Scale: Adult hb ED Course: 11:10 Patient arrived in ED. mg5 11:14 Jared Escobar MD is Attending Physician. colin 11:17 Candice Hurtado, RN is Primary Nurse. nj1 11:23 Triage completed. hb 11:30 COVID-19/FLU A+B/RSV Sent. ld1 11:30 Lactate w/ 2H reflex if indic. Sent. ld1 11:30 Blood Culture Adult (2) Sent. ld1 11:30 Lipase Sent. ld1 11:31 Inserted saline lock: 20 gauge in left forearm, using aseptic technique. Blood ld1 collected. 11:33 Arm band placed on. nj1 11:34 Patient has correct armband on for positive identification. Call light in reach. Side nj1 rails up X 1. Adult w/ patient. Provided Education on: call light, fall precautions. 11:45 XRAY Chest (1 view) In Process Unspecified. EDMS 11:52 Urinalysis w/ reflexes Sent. ld1 11:52 COVID-19/FLU A+B/RSV Sent. ld1 13:29 CT Chest Wo Con In Process Unspecified. EDMS 14:28 Jeremiah Jay is Hospitalizing Provider. colin 15:05 CT Chest For PE Angio In Process Unspecified. EDMS 15:21 US Extremity Venous W Compression Juan Miguel In Process Unspecified. EDMS Administered Medications: 11:52 Drug: NS 0.9% IV 1000 ml IV at 125 ml/hr continuous Route: IV; Rate: 125 ml/hr; Site: ld1 left forearm; Outcome: 14:29 Decision to Hospitalize by Provider. colin 17:57 Patient left the ED. ld1 Signatures: Dispatcher [employer] EDMS Jared Escobar MD MD cha Baxter, Heather, RN RN hb Rosa Canada RN RN ld1 Candice Hurtado, RN RN nj1 Efrain, Herminia mg5
--- NOTE | 2023-02-26 15:20 | RAD REPORT ---
EXAM DESCRIPTION: CT - Chest For Pe Angio - 02/26/2023 3:02 pm CLINICAL HISTORY: Chest pain. difficulty breathing COMPARISON: Thorax Wo Con dated 02/26/2023 TECHNIQUE: CT angiogram of the pulmonary arteries was performed with MIP. All CT scans are performed using dose optimization technique as appropriate and may include automated exposure control or mA/KV adjustment according to patient size. FINDINGS: No evidence of pulmonary thromboembolism. No acute aortic finding demonstrated. Mild diffuse COPD. No significant pericardial or pleural fluid. Pacer device present. No concerning bony finding. IMPRESSION: No evidence of pulmonary thromboembolism. Mild diffuse COPD.
--- NOTE | 2023-02-26 15:34 | RAD REPORT ---
EXAM DESCRIPTION: US - Extrem Venous W Compress Juan Miguel - 02/26/2023 3:20 pm CLINICAL HISTORY: SWELLING Bilateral leg edema and swelling. COMPARISON: No comparisons TECHNIQUE: Real-time sonographic interrogation of the left and right lower extremity deep venous sys tems was performed. FINDINGS: Normal compressibility, flow augmentation, phasic flow and spontaneous flow is identified in both the left and right lower extremity deep venous systems. IMPRESSION: No sonographic evidence of left or right lower extremity deep venous thrombosis.
--- NOTE | 2023-02-26 16:21 | P.HP ---
Certification for Inpatient Patient admitted to: Observation With expected LOS: <2 Midnights Patient will require the following post-hospital care: None Practitioner: I am a practitioner with admitting privileges, knowledge of patient current condition, hospital course, and medical plan of care. Services: Services provided to patient in accordance with Admission requirements found in Title 42 Section 412.3 of the Code of Federal Regulations Patient History Date of Service: 02/26/23 Reason for admission: ACS rule out History of Present Illness: 72-year-old male with history of atrial fibrillation on chronic anticoagulation with warfarin, chronic systolic congestive heart failure, previous CVA, Parkinson's, hypertension, chronic pain with pain pump, COPD, [id number] diabetes presents emergency department with chief complaint of chest pain. His home health nurse reportedly came out today and as he reportedly fall from a week ago they checked his orthostatic vital signs which were found to be positive. He also reported he been having some left- sided chest pain which started the day before. He describes the chest pain as pressure-like, nonradiating left anterior chest wall with no associated signs or symptoms, denies similar pain in the past. He was evaluated in the emergency department, given small out of IV fluids. His labs were significant for a white blood cell count 11.2 platelets 130 INR 4.17 bicarb 33 initial high sensitive troponin 6.9 EKG without signs of STEMI. Patient chest pain-free at this time he had an echocardiogram performed in July of this year which showed an EF of 45 to 49%. [facility] Last heart catheterization 45 years ago, has never needed a stent in the past. Will admit under observation for ACS rule out. Allergies Penicillins Allergy (Severe, Verified 06/30/22 22:26) Anaphylaxis Home Medications: Allopurinol 300 mg PO DAILY 06/30/22 Atorvastatin Calcium 40 mg PO BEDTIME 06/30/22 Bumetanide [Bumex] 2 mg PO DAILY 06/30/22 Dapagliflozin Propanediol [Farxiga] 10 mg PO DAILY 06/30/22 Gabapentin 300 mg PO BID 06/30/22 Mexiletine HCl 200 mg PO SEECOM 06/30/22 Omeprazole [Prilosec] 40 mg PO DAILY 06/30/22 Potassium Chloride 20 meq PO DAILY 06/30/22 Primidone 50 mg PO TID 06/30/22 Semaglutide [Rybelsus] 7 mg PO DAILY 06/30/22 Sertraline [Zoloft*] 100 mg PO BID 06/30/22 Spironolactone 25 mg PO BEDTIME 06/30/22 Warfarin Sodium 5 mg PO SEECOM 06/30/22 Warfarin Sodium 7.5 mg PO SEECOM 06/30/22 carvediloL [Carvedilol] 6.25 mg PO BID 06/30/22 Cephalexin 500 mg PO QID 10 Days #40 07/02/22 Cephalexin 500 mg PO QID 10 Days #40 tab 07/02/22 Ivermectin [Sklice] 117 gm TP ONCE 1 Days #1 tube 07/02/22 Warfarin Sodium [Coumadin*] 5 mg PO DAILY tab 07/02/22 - Past Medical/Surgical History Diabetic: Yes -: CVA -: COPD -: CHFsystolic -: Type 2 [id number] -: Gout -: Hypertension -: Hyperlipdemia -: Parkinson's -: Chronic pain with pain pump -: Pacemaker/defibrillator -: Appendectomy -: Cholecystectomy -: Pain pump Psychosocial/ Personal History: Patient is . Lives at home with his - Family History Family History: Reviewed- Non-Contributory - Social History Smoking Status: Never smoker Alcohol use: No CD- Drugs: No Caffeine use: No Place of Residence: Home Review of Systems 10-point ROS is otherwise unremarkable Cardiovascular: Chest Pain Physical Examination - Physical Exam General: Alert, In no apparent distress, Oriented x3 HEENT: Atraumatic, PERRLA, Mucous membr. moist/pink, EOMI, Sclerae nonicteric Neck: Supple, 2+ carotid pulse no bruit, No LAD, Without JVD or thyroid abnormality Respiratory: Clear to auscultation bilaterally, Normal air movement Cardiovascular: Regular rate/rhythm, Normal S1 S2, Edema (Trace edema lower extremities) Gastrointestinal: Normal bowel sounds, No tenderness Musculoskeletal: No tenderness Integumentary: No rashes Neurological: Normal speech, Normal strength at 5/5 x4 extr, Normal tone, Normal affect - Studies Laboratory Data (last 24 hrs) 02/26/23 02/26/23 02/26/23 11:27 11:27 11:27 WBC 11.20 H Hgb 14.9 Hct 45.0 Plt Count 130 L PT 44.0 H INR 4.17 Sodium 141 Potassium 3.6 BUN 19 H Creatinine 0.97 Glucose 107 H Magnesium 2.1 Total Bilirubin 0.9 AST 26 ALT 14 L Alkaline Phosphatase 93 Lipase 29 Assessment and Plan - Plan Assessment: Chest pain rule out ACS Atrial fibrillation on chronic anticoagulation with warfarin-supratherapeutic INR Chronic systolic congestive heart failure Parkinson's Hypertension Hyperlipidemia 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 Diabetes mellitus type [id number] COPD Plan: Chest pain rule out ACS Trend troponins, monitor on telemetry, cardiology consult Plan for stress test tomorrow Last heart cath 4 to 5 years ago-has never needed a stent Atrial fibrillation on chronic anticoagulation with warfarin-supratherapeutic INR chronic systolic congestive heart failure Hold tonight's dose of warfarin, recheck INR in the morning Taking warfarin 10 mg on Sundays and 7.5 mg all other days of the week Dose was recently reduced from 10 mg 3 times weekly to 10 mg 1 times weekly Continue Bumex, trace edema lower extremities Last echocardiogram in July showed EF of 45 to 49% Parkinson's Hypertension Hyperlipidemia 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
[2023-02-26] MEDS: INSULIN REGULAR (HUMAN) 100 UNIT/ML SQ SCH ×2 (19:31→20:58)
[2023-02-26] MEDS ORDERED: ONDANSETRON 4 MG/2 ML VIAL IV PRN (19:31)
[2023-02-26] MEDS ORDERED: HOME MED 1 EA UNK (Potassium Chloride [Potassium Chloride] 20 MEQ Tablet.Er) PO SCH (22:00)
[2023-02-26] MEDS ORDERED: DUPILUMAB 300 MG/2 ML SQ SCH (22:00)
[2023-02-27 00:09] VITALS: O2SAT 94; BMI 48.4
[2023-02-27 02:33] LABS: Absolute Lymphocytes (CBC) 1.7 K/uL (0.7-4.9); Hematocrit 42.4 % (39.6-49.0); Lymphocytes % 25.8 % (15.3-44.8); MCV 98.5 fL (80-100); MPV 8.8 fL (7.6-11.3); Platelets 99 thou/uL (152-406); RBC Red Blood Cell Count 4.31 M/uL (4.33-5.43)
[2023-02-27 03:12] LABS: Potassium 3.5 mEq/L (3.5-5.1); Troponin High Sensitivity 5.4 pg/mL (<58.9)
[2023-02-27 03:49] LABS: Protime INR 4.31
--- NOTE | 2023-02-27 06:15 | P.CNS ---
Date of Consult: 02/26/23 Reason for Consult: chest pain Requesting Physician: antonio javier Chief Complaint: ACS rule out History of Present Illness: Mr. Joe is a 72 yo patient with a past medical history of HTN, atrial fibrillation on chronic coumadin therapy, HLD, parkinson's, CVA, and congestive heart failure. He sustained a fall last week. Home health visited him yesterday and he was found to be orthostatic and complained of chest pain. He presented to the emergency room for evaluation. He had an ECHO in July with an EF at 45-49% and sees Cardiology at [facility]. We were asked to do a NM stress test to rule out reversible causes of his chest pain. His INR is supratherapeutic at 4.14 but Mr. Joe is too heavy for the NM table. He was pain free at the time of admission. Allergies Penicillins Allergy (Severe, Verified 06/30/22 22:26) Anaphylaxis Home medications list reviewed: Yes Home Medications: Allopurinol 300 mg PO DAILY 06/30/22 Atorvastatin Calcium 40 mg PO BEDTIME 06/30/22 Bumetanide [Bumex] 2 mg PO DAILY 06/30/22 Dapagliflozin Propanediol [Farxiga] 10 mg PO DAILY 06/30/22 Gabapentin 300 mg PO BID 06/30/22 Mexiletine HCl 200 mg PO BID 06/30/22 Omeprazole [Prilosec] 40 mg PO DAILY 06/30/22 Potassium Chloride 20 meq PO SEECOM 06/30/22 Sertraline [Zoloft*] 100 mg PO BID 06/30/22 Spironolactone 25 mg PO DAILY 06/30/22 Warfarin Sodium 7.5 mg PO SEECOM 06/30/22 carvediloL [Carvedilol] 6.25 mg PO BID 06/30/22 Carbidopa/Levodopa [Carbidopa-Levo 25-100 mg Odt] 1 each PO BID 02/26/23 Dupilumab [Dupixent Pen] 300 mg SQ SEECOM 02/26/23 Nystatin [Nystop] 15 gm TP PRN PRN 02/26/23 Sacubitril/Valsartan [Entresto 97 mg-103 mg Tablet] 1 tab PO DAILY 02/26/23 Trazodone [Desyrel] 50 mg PO BEDTIME 02/26/23 Triamcinolone 0.1% Crm [Kenalog 0.1% Cream] 454 gm TP DAILY 02/26/23 Warfarin Sodium [Coumadin*] 5 mg PO SEECOM 02/26/23 buPROPion HCL [Bupropion Xl] 300 mg PO DAILY 02/26/23 - Past Medical/Surgical History Diabetic: Yes -: CVA -: COPD -: CHFsystolic -: Type 2 [id number] -: Gout -: Hypertension -: Hyperlipdemia -: Parkinson's -: Chronic pain with pain pump -: Pacemaker/defibrillator -: Appendectomy -: Cholecystectomy -: Pain pump Psychosocial/ Personal History: Patient is . Lives at home with his - Social History Smoking Status: Unknown if ever smoked Alcohol use: No CD- Drugs: No Caffeine use: No Place of Residence: Home Review of Systems 10-point ROS is otherwise unremarkable Cardiovascular: Chest Pain, As per HPI Physical Examination Temp Pulse Resp BP Pulse Ox 97.5 F 81 16 119/63 94 02/27/23 04:00 02/27/23 04:00 02/27/23 04:00 02/27/23 04:00 02/27/23 04:00 General: Alert, In no apparent distress, Oriented x3, Obese HEENT: Atraumatic, Normocephalic Respiratory: Clear to auscultation bilaterally, Normal air movement Cardiovascular: No edema, Irregular heart rate/rhythm Capillary refill: <2 Seconds Gastrointestinal: Normal bowel sounds, Soft and benign Musculoskeletal: No clubbing Integumentary: No tenderness/swelling Neurological: Normal speech Lymphatics: No axilla or inguinal lymphadenopathy External genitalia: Deferred Rectal: Deferred Laboratory Data (last 24 hrs) 02/26/23 02/26/23 02/26/23 11:27 11:27 11:27 WBC 11.20 H Hgb 14.9 Hct 45.0 Plt Count 130 L PT 44.0 H INR 4.17 Sodium 141 Potassium 3.6 BUN 19 H Creatinine 0.97 Glucose 107 H Magnesium 2.1 Total Bilirubin 0.9 AST 26 ALT 14 L Alkaline Phosphatase 93 Lipase 29 - Problems (1) Chest pain due to myocardial ischemia Current Visit: Yes Status: Acute Plan: Trend troponin, trend vitals signs, pt was orthostatic on arrival, goal for euvolemia telemetry, trend INR, pt supratherapeutic at 4.17, medicine to manage warfarin Unable to perform NM stress as pt exceeds the weight limit of equipment, unable to cath as INR is so high Pt would like discharge and f/u with his pricing consultant. Troponins trended normal. Cardio will sign off. (2) Congestive heart failure Current Visit: No Status: Chronic Plan: Monitor electrolytes, replace as necessary. trend blood pressure, resume bumex 2mg po daily when possible, daily weights, I&O Qualifiers: Heart failure type: diastolic Heart failure chronicity: chronic Qualified Code(s): I50.32 - Chronic diastolic (congestive) heart failure (3) Hyperlipidemia Current Visit: No Status: Chronic Plan: Continue Atorvastatin 40mg po q hs Qualifiers: Hyperlipidemia type: unspecified Qualified Code(s): E78.5 - Hyperlipidemia, unspecified (4) Hypertension Current Visit: No Status: Chronic Plan: Continue amiodarone 50mg po TID Spironolactone 25mg po at HS Carvedilol 6.25mg po BID Qualifiers: Hypertension type: primary hypertension Qualified Code(s): I10 - Essential (primary) hypertension
[2023-02-27] MEDS: INSULIN REGULAR (HUMAN) 100 UNIT/ML SQ SCH (07:30)
[2023-02-27 08:20] VITALS: BP 108/57; TEMP 96.8
[2023-02-27] MEDS ORDERED: allopurinoL 300 MG TAB PO SCH (09:00)
[2023-02-27] MEDS ORDERED: VALSARTAN PO SCH (09:00)
[2023-02-27] MEDS ORDERED: BUPROPION HCL XL 150 MG TAB PO SCH (09:00)
[2023-02-27] MEDS ORDERED: GABAPENTIN 300 MG CAP PO SCH (09:00)
[2023-02-27] MEDS ORDERED: BUMETANIDE 1 MG TABLET PO SCH ×2 (09:00)
[2023-02-27] MEDS ORDERED: carvediloL 6.25 MG TAB PO SCH (09:00)
[2023-02-27] MEDS ORDERED: PANTOPRAZOLE 40MG TABLET PO SCH (09:00)
[2023-02-27] MEDS ORDERED: CARBIDOPA/LEVODOPA 25/100 TAB PO SCH (09:00)
[2023-02-27] MEDS ORDERED: SERTRALINE HCL 100 MG TAB PO SCH (09:00)
[2023-02-27] MEDS ORDERED: DAPAGLIFLOZIN PROPANEDIOL 10 MG PO SCH (09:00)
[2023-02-27] MEDS ORDERED: SACUBITRIL PO SCH (09:00)
[2023-02-27] MEDS ORDERED: SPIRONOLACTONE 25 MG TABLET PO SCH (09:00)
[2023-02-27] MEDS ORDERED: MEXILETINE 200 MG PO SCH (09:00)
--- NOTE | 2023-02-27 10:25 | P.DS ---
Admission Date: 02/26/23 Discharge Date: 02/27/23 Disposition: ROUTINE DISCHARGE Discharge Condition: GOOD Reason for Admission: ACS rule out Consultations: Cardiology-Dr. Garcia Brief History of Present Illness: 72-year-old male with history of atrial fibrillation on chronic anticoagulation with warfarin, chronic systolic congestive heart failure, previous CVA, Parkinson's, hypertension, chronic pain with pain pump, COPD, gnw-ylslmyl-[id number] diabetes presents emergency department with chief complaint of chest pain. His home health nurse reportedly came out today and as he reportedly fall from a week ago they checked his orthostatic vital signs which were found to be positive. He also reported he been having some left- sided chest pain which started the day before. He describes the chest pain as pressure-like, nonradiating left anterior chest wall with no associated signs or symptoms, denies similar pain in the past. He was evaluated in the emergency department, given small out of IV fluids. His labs were significant for a white blood cell count 11.2 platelets 130 INR 4.17 bicarb 33 initial high sensitive troponin 6.9 EKG without signs of STEMI. Patient chest pain-free at this time he had an echocardiogram performed in July of this year which showed an EF of 45 to 49%. Follows [facility]. Last heart catheterization 45 years ago, has never needed a stent in the past. Will admit under observation for ACS rule out. 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 Serial troponins were trended and remained negative, EKG was without STEMI criteria. CT scan of the chest was also performed which was negative for pulmonary realism or other acute findings. Patient did well during his hospitalization denies chest pain overnight is feeling well this morning. Was seen by cardiology team and as troponins trended negative and he is no longer having chest pain is cleared for discharge, instructed to follow-up with cardiology for further evaluation and management of his chest pain. Of note his INR was elevated, initially 4.1 up to 4.3 today. No signs of active bleeding. His primary care provider has recently been titrating his warfarin down, he used to be on 7.5 mg daily 4 days a week and 10 mg 3 times a week, this was recently titrated down to 7.5 mg daily 6 days a week and 10 mg once weekly on Sundays. Recommend continuing warfarin at the 7.5 mg dose daily and close follow-up with PCP for repeat INR. Return precautions given Continue other home medications as prescribed Follow-up with PCP and cardiology in the next 1 to 2 weeks. Vital Signs/Physical Exam: Temp Pulse Resp BP Pulse Ox 96.8 F 79 18 108/57 L 95 02/27/23 08:00 02/27/23 08:00 02/27/23 08:00 02/27/23 09:00 02/27/23 08:00 General: Alert, In no apparent distress, Oriented x3 HEENT: Atraumatic, PERRLA Neck: Supple, JVD not distended Respiratory: Clear to auscultation bilaterally, Normal air movement Cardiovascular: Regular rate/rhythm, Normal S1 S2 Gastrointestinal: Normal bowel sounds Musculoskeletal: No tenderness Integumentary: No rashes Neurological: Normal speech, Normal tone, Normal affect Laboratory Data at Discharge: WBC 6.70 thou/uL (4.3-10.9) 02/27/23 01:52 Hgb 13.8 g/dL (13.6-17.9) 02/27/23 01:52 Hct 42.4 % (39.6-49.0) 02/27/23 01:52 Plt Count 99 thou/uL (152-406) L 02/27/23 01:52 PT 45.4 SECONDS (9.5-12.5) H 02/27/23 01:52 INR 4.31 02/27/23 01:52 Sodium 141 mEq/L (136-145) 02/27/23 01:52 Potassium 3.5 mEq/L (3.5-5.1) 02/27/23 01:52 BUN 16 mg/dL (7-18) 02/27/23 01:52 Creatinine 0.85 mg/dL (0.70-1.30) 02/27/23 01:52 Glucose 125 mg/dL (74-106) H 02/27/23 01:52 Magnesium 2.1 mg/dL (1.6-2.4) 02/26/23 11:27 Total Bilirubin 0.9 mg/dL (0.2-1.0) 02/26/23 11:27 AST 26 U/L (15-37) 02/26/23 11:27 ALT 14 U/L (16-61) L 02/26/23 11:27 Alkaline Phosphatase 93 U/L (45-117) 02/26/23 11:27 Lipase 29 U/L (13-75) 02/26/23 11:27 Home Medications: Allopurinol 300 mg PO DAILY 06/30/22 Atorvastatin Calcium 40 mg PO BEDTIME 06/30/22 Bumetanide [Bumex] 2 mg PO DAILY 06/30/22 Dapagliflozin Propanediol [Farxiga] 10 mg PO DAILY 06/30/22 Gabapentin 300 mg PO BID 06/30/22 Mexiletine HCl 200 mg PO BID 06/30/22 Omeprazole [Prilosec] 40 mg PO DAILY 06/30/22 Potassium Chloride 20 meq PO SEECOM 06/30/22 Sertraline [Zoloft*] 100 mg PO BID 06/30/22 Spironolactone 25 mg PO DAILY 06/30/22 Warfarin Sodium 7.5 mg PO SEECOM 06/30/22 carvediloL [Carvedilol] 6.25 mg PO BID 06/30/22 Carbidopa/Levodopa [Carbidopa-Levo 25-100 mg Odt] 1 each PO BID 02/26/23 Dupilumab [Dupixent Pen] 300 mg SQ SEECOM 02/26/23 Nystatin [Nystop] 15 gm TP PRN PRN 02/26/23 Sacubitril/Valsartan [Entresto 97 mg-103 mg Tablet] 1 tab PO DAILY 02/26/23 Trazodone [Desyrel*] 50 mg PO BEDTIME 02/26/23 Triamcinolone 0.1% Crm [Kenalog 0.1% Cream*] 454 gm TP DAILY 02/26/23 buPROPion HCL [Bupropion Xl] 300 mg PO DAILY 02/26/23 Physician Discharge Instructions: Patient was admitted to the hospital under observation for chest pain. Serial troponins were trended and remained negative, EKG was without STEMI criteria. CT scan of the chest was also performed which was negative for pulmonary realism or other acute findings. Patient did well during his hospitalization denies chest pain overnight is feeling well this morning. Was seen by cardiology team and as troponins trended negative and he is no longer having chest pain is cleared for discharge, instructed to follow-up with cardiology for further evaluation and management of his chest pain. Of note his INR was elevated, initially 4.1 up to 4.3 today. No signs of active bleeding. His primary care provider has recently been titrating his warfarin down, he used to be on 7.5 mg daily 4 days a week and 10 mg 3 times a week, this was recently titrated down to 7.5 mg daily 6 days a week and 10 mg once weekly on Sundays. Recommend continuing warfarin at the 7.5 mg dose daily and close follow-up with PCP for repeat INR. Return precautions given Continue other home medications as prescribed Follow-up with PCP and cardiology in the next 1 to 2 weeks. Diet: AHA Activity: Fall precautions Followup: EYAD CASTANO [Primary Care Provider] - 1-2 Weeks Natanael Garcia MD [ACTIVE - CAN ADMIT] - 1-2 Weeks Time spent managing pt's care (in minutes): 25
[2023-02-27] MEDS ORDERED: INFLUENZA VACCINE (for 6+ mo) 0.5 ML DOSE IMVAC ONE (11:00)
--- NOTE | 2023-02-27 11:51 | EKG ---
Test Date: 2023-02-26 Test Time: 11:23:11 Rocket Test Fire Worker: CRISTINO MEASUREMENT RESULTS: Intervals: Rate: 81 MA: 100 QRSD: 152 QT: 438 QTc: 508 Britton: P: 82 MA: 100 QRS: -85 T: 93 INTERPRETIVE STATEMENTS: Electronic ventricular pacemaker Compared to ECG 12/17/2022 11:21:30 Sinus rhythm no longer present Ventricular premature complex(es) no longer present Right bundle-branch block no longer present Myocardial infarct finding no longer present Electronically Signed On 02-27-23 11:47:06 CASH REGISTER BALANCER by Natanael Garcia
[2023-02-27] MEDS ORDERED: WARFARIN SODIUM 7.5 MG TAB PO SCH (17:00)
[2023-02-27] MEDS ORDERED: TRAZODONE 50 MG TABLET PO SCH (21:00)
[2023-02-27] MEDS ORDERED: ATORVASTATIN 40 MG TAB PO SCH (21:00)
== END 2023-02-27 11:23 | disposition home health service (06) ==
LOC: ER 11:09 → 2ND 16:56
PROVIDERS: ADMIT Internal Medicine; ATTEND Hospitalist
DX: R07.9 Chest pain, unspecified (principal); I48.11 Longstanding persistent atrial fibrillation; I25.9 Chronic ischemic heart disease, unspecified; I50.22 Chronic systolic (congestive) heart failure; I10 Essential (primary) hypertension; I69.954 Hemiplegia and hemiparesis following unspecified cerebrovascular disease affecting left non-dominant side; G89.29 Other chronic pain; G20.A1 Parkinson's disease without dyskinesia, without mention of fluctuations; J44.9 Chronic obstructive pulmonary disease, unspecified; E11.9 Type 2 diabetes mellitus without complications; E78.5 Hyperlipidemia, unspecified; Z88.0 Allergy status to penicillin; Z79.01 Long term (current) use of anticoagulants; Z11.52 Encounter for screening for COVID-19
CPT/HCPCS: 93005; 87040 ×2; 85025 ×2; 80048 ×2; 36415; 83735; 85610 ×2; 82947 ×2; 80076; 83605; 81003; 84484 ×3; 83690; 83880; 0241U; 71250; 71275; 71045; 93970; 99284; Q9967; J7030; G0378 ×3

== ENCOUNTER → 2023-04-05 | Emergency (ER) | payer MEDICARE ==
[~2023-04-05] MED LIST: MORPHINE 4 MG/ML SYR ONE; NA CHLORIDE 0.9% 500 ML ONE; ONDANSETRON 4 MG/2 ML VIAL ONE; POTASSIUM 25 MEQ EFFERV TAB ONE
[2023-04-05 13:29] LABS: Protime INR 3.52
[2023-04-05 13:32] LABS: Absolute Lymphocytes (CBC) 1.7 K/uL (0.7-4.9); Hematocrit 42.1 % (39.6-49.0); Lymphocytes % 19.1 % (15.3-44.8); MCV 95.8 fL (80-100); MPV 9.1 fL (7.6-11.3); Platelets 98 thou/uL (152-406); RBC Red Blood Cell Count 4.39 M/uL (4.33-5.43)
[2023-04-05 13:45] LABS: Albumin 2.7 g/dL (3.4-5.0); Bilirubin Direct 0.4 mg/dL (0-0.2); Bilirubin Indirect, Calculated 0.8 mg/dL (0.2-0.8); Bilirubin Total 1.2 mg/dL (0.2-1.0); Magnesium 2.1 mg/dL (1.6-2.4); Potassium 2.7 mEq/L (3.5-5.1); Troponin High Sensitivity 9.1 pg/mL (<58.9)
[2023-04-05 14:02] LABS: Blood Morphology Comment NOT SEEN (NOT SEEN); Platelet Estimate DECR; White Blood Cell Scan OK (OK)
--- NOTE | 2023-04-05 14:46 | RAD REPORT ---
EXAM DESCRIPTION: [place] Single View04/05/2023 1:06 pm CLINICAL HISTORY: Chest pain COMPARISON: 2022 FINDINGS: The lungs appear clear of acute infiltrate. The heart is mildly to moderately enlarged. P acemaker leads in place IMPRESSION: No acute abnormalities displayed
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
--- NOTE | 2023-04-05 15:24 | EDPHYS ---
Physician Documentation [facility] Name: Jayson Joe Sr Age: 72 yrs Sex: Male : 1950 Arrival Date: 04/05/2023 Time: 12:26 Bed 6 Private MD: ED Physician Jared Escobar HPI: 04/05 15:13 This 72 yrs old Male presents to ER via EMS with complaints of Fall Injury. colin 15:13 Details of fall: The patient fell from an upright position, while walking. Onset: The colin symptoms/episode began/occurred just prior to arrival. Associated injuries: The patient sustained injury to the chest, injury to the abdomen. Severity of symptoms: At their worst the symptoms were mild, in the emergency department the symptoms have improved, moderately. The patient has not experienced similar symptoms in the past. Historical: - Allergies: 12:47 PENICILLINS; tl4 - Home Meds: 12:47 nystatin Topical [Active]; allopurinol 300 mg Oral tablet daily [Active]; bumetanide 2 tl4 mg Oral tablet 2 in the morning [Active]; carvedilol 6.25 mg Oral tablet twice a day [Active]; cephalexin 500 mg Oral capsule [Active]; Farxiga 10 mg Oral tablet daily [Active]; gabapentin 300 mg Oral capsule [Active]; mexiletine 200 mg Oral capsule three times a day [Active]; Nystop Topical [Active]; omeprazole 40 mg Oral capsule daily [Active]; warfarin 5 mg Oral tablet daily [Active]; spironolactone 25 mg Oral tablet [Active]; Rybelsus 7 mg Oral tablet twice a day [Active]; Potassium Chloride Oral [Active]; sertraline 100 mg Oral tablet twice a day [Active]; - PMHx: 12:47 Cerebrovascular accident; Chronic obstructive lung disease; Stroke/TIA; Congestive tl4 heart failure; diabetes mellitus; Gout; Hypertensive disorder; High Cholesterol; pacemaker/defibrilator; pain pump; Parkinson's disease; - PSHx: 12:47 neck; foot; Appendectomy; back; Cholecystectomy; dental; tl4 - Immunization history:: Adult Immunizations unknown. - Social history:: Smoking status: Patient/guardian denies using tobacco, the patient reports quitting approximately 40 years ago. ROS: 15:15 Constitutional: Negative for fever, chills, and weight loss, Eyes: Negative for injury, colin pain, redness, and discharge, ENT: Negative for injury, pain, and discharge, Neck: Negative for injury, pain, and swelling, Cardiovascular: Negative for chest pain, palpitations, and edema, Respiratory: Negative for shortness of breath, cough, wheezing, and pleuritic chest pain, Back: Negative for injury and pain, : Negative for injury, bleeding, discharge, and swelling, MS/Extremity: Negative for injury and deformity, Skin: Negative for injury, rash, and discoloration, Neuro: Negative for headache, weakness, numbness, tingling, and seizure, Psych: Negative for depression, anxiety, suicide ideation, homicidal ideation, and hallucinations, Allergy/Immunology: Negative for hives, rash, and allergies, Endocrine: Negative for neck swelling, polydipsia, polyuria, polyphagia, and marked weight changes, Hematologic/Lymphatic: Negative for swollen nodes, abnormal bleeding, and unusual bruising, 15:15 Abdomen/GI: Positive for abdominal pain, of the right upper quadrant and left upper quadrant, Exam: 15:15 Constitutional: This is a well developed, well nourished patient who is awake, alert, colin and in no acute distress. Head/Face: Normocephalic, atraumatic. Eyes: Pupils equal round and reactive to light, extra-ocular motions intact. Lids and lashes normal. Conjunctiva and sclera are non-icteric and not injected. Cornea within normal limits. Periorbital areas with no swelling, redness, or edema. ENT: Nares patent. No nasal discharge, no septal abnormalities noted. Tympanic membranes are normal and external auditory canals are clear. Oropharynx with no redness, swelling, or masses, exudates, or evidence of obstruction, uvula midline. Mucous membranes moist. Neck: Trachea midline, no thyromegaly or masses palpated, and no cervical lymphadenopathy. Supple, full range of motion without nuchal rigidity, or vertebral point tenderness. No Meningismus. Chest/axilla: Normal chest wall appearance and motion. Nontender with no deformity. No lesions are appreciated. Cardiovascular: Regular rate and rhythm with a normal S1 and S2. No gallops, murmurs, or rubs. Normal PMI, no JVD. No pulse deficits. Abdomen/GI: Soft, non-tender, with normal bowel sounds. No distension or tympany. No guarding or rebound. No evidence of tenderness throughout. Back: No spinal tenderness. No costovertebral tenderness. Full range of motion. Male : Normal genitalia with no discharge or lesions. Skin: Warm, dry with normal turgor. Normal color with no rashes, no lesions, and no evidence of cellulitis. MS/ Extremity: Pulses equal, no cyanosis. Neurovascular intact. Full, normal range of motion. Neuro: Awake and alert, GCS 15, oriented to person, place, time, and situation. Cranial nerves II-XII grossly intact. Motor strength 5/5 in all extremities. Sensory grossly intact. Cerebellar exam normal. Normal gait. Psych: Awake, alert, with orientation to person, place and time. Behavior, mood, and affect are within normal limits. 15:15 Respiratory: mild respiratory distress is noted, Respirations: normal, Breath sounds: are clear throughout, Respiratory rate: 18 15:15 Abdomen/GI: Inspection: abdomen appears normal, Bowel sounds: normal, Palpation: mild abdominal tenderness, in the right upper quadrant and left upper quadrant, 16:01 ECG was reviewed by the Attending Physician. [facility] Vital Signs: 12:29 BP 132 / 77; Pulse 80; Resp 18; Temp 97.8; Pulse Ox 96% on R/A; Weight 158.76 kg; tl4 Height 6 ft. 0 in. ; Pain 6/10; 13:28 BP 129 / 64; Pulse 80; Resp 18; Pulse Ox 94% on 2 lpm NC; tl4 14:05 BP 114 / 69; Pulse 80; Resp 19; Pulse Ox 100% on 2 lpm NC; tl4 14:46 BP 112 / 64; Pulse 82; Resp 18; Pulse Ox 98% on 2 lpm NC; tl4 15:28 BP 105 / 61; Pulse 80; Resp 17; Pulse Ox 96% ; ko1 15:43 BP 115 / 57; Pulse 78; Resp 18; Pulse Ox 96% on R/A; tl4 12:29 Body Mass Index 47.47 (158.76 kg, 182.88 cm) tl4 12:29 Pain Scale: Adult tl4 MDM: 12:30 Patient medically screened. [facility] 15:17 Differential diagnosis: closed head injury, contusion, fracture, laceration, multiple colin trauma, sprain, strain. Differential diagnosis: non-specific abd pain, Blunt Chest Trauma Chest Wall Contusion Chest Wall Injury Hemopericardium Pleural Effusion Pneumomediastinum Pneumopericardium Pneumothorax Pulmonary Contusion Rib Fracture Ruptured Hemidiaphragm. Data reviewed: vital signs, nurses notes, EMS record, lab test result(s), EKG, radiologic studies, CT scan, plain films. Consideration of Admission/Observation Escalation of care including admission/observation considered. I considered the following discharge prescriptions or medication management in the emergency department Medications were administered in the Emergency Department. See MAR. Independent interpretation of the following test(s) in the Emergency Department EKG: See my EKG interpretation above. Test considered but Not performed: Ultrasound abd usg. Care significantly affected by the following chronic conditions: Hypertension, Congestive Heart Failure, Chronic Obstructive Pulmonary Disease, Obesity, Liver Disease, cva. 04/05 12:32 Order name: Basic Metabolic Panel; Complete Time: 14:18 [facility] 04/05 12:32 Order name: CBC with Diff; Complete Time: 14:18 [facility] 04/05 12:32 Order name: LFT's; Complete Time: 14:18 [facility] 04/05 12:32 Order name: Magnesium; Complete Time: 14:18 [facility] 04/05 12:32 Order name: NT PRO-BNP; Complete Time: 14:18 [facility] 04/05 12:32 Order name: PT-INR; Complete Time: 14:18 [facility] 04/05 12:32 Order name: Troponin HS; Complete Time: 14:18 [facility] 04/05 12:32 Order name: Lipase; Complete Time: 14:18 [facility] 04/05 13:36 Order name: CBC Smear Scan; Complete Time: 14:18 [facility] 04/05 12:32 Order name: XRAY Chest (1 view) [facility] 04/05 12:32 Order name: CT Traumagram (Head C Spine CAP W Con) [facility] 04/05 14:19 Order name: INCENTIVE SPIROMETRY 04/05 12:32 Order name: EKG; Complete Time: 12:32 [facility] 04/05 12:32 Order name: Cardiac monitoring; Complete Time: 12:52 [facility] 04/05 12:32 Order name: EKG - Nurse/Tech; Complete Time: 13:27 [facility] 04/05 12:32 Order name: IV Saline Lock; Complete Time: 12:52 [facility] 04/05 12:32 Order name: Labs collected and sent; Complete Time: 13:05 [facility] 04/05 12:32 Order name: O2 Per Protocol; Complete Time: 12:52 [facility] 04/05 12:32 Order name: O2 Sat Monitoring; Complete Time: : [facility] EC:01 Rate is 80 beats/min. Rhythm is regular. QRS [place] is Normal. [place] interval is normal. QRS colin interval is normal. QT interval is normal. No Q waves. T waves are Normal. No ST changes noted. Clinical impression: Abnormal EKG without significant change and No evidence of ischemia. Interpreted by me. Reviewed by me. Administered Medications: 13:27 Drug: NS 0.9% IV 500 ml IV at bolus once Route: IV; Rate: bolus; Site: left hand; tl4 14:26 Follow up: Response: No adverse reaction; IV Status: Completed infusion; IV Intake: tl4 500ml 13:27 Drug: morphine IVP or IV 4 mg IVP once over 4 mins Route: IVP; Infused Over: 4 mins; tl4 Site: left hand; 14:25 Follow up: Response: Pain is decreased tl4 13:27 Drug: Ondansetron IVP 4 mg IVP once; over 2 minutes Route: IVP; Site: left hand; tl4 14:25 Follow up: Response: Nausea is decreased tl4 14:39 Drug: Potassium PO Effervescent Tablet 50 mEq PO once; dissolve in 4 ounces of water or tl4 juice Route: PO; 15:14 Follow up: Response: No adverse reaction tl4 15:14 Drug: Potassium PO Effervescent Tablet 50 mEq PO once; dissolve in 4 ounces of water or tl4 juice Route: PO; 15:43 Follow up: Response: No adverse reaction tl4 Disposition Summary: 04/05/23 15:23 Discharge Ordered Notes: Location: Home colin Problem: new colin Symptoms: have improved colin Condition: Stable colin Diagnosis - Fall on same level, unspecified colin - Contusion of abdominal wall colin - Contusion of front wall of thorax colin - Obesity, unspecified colin - Other cirrhosis of liver colin - Hypokalemia colin Followup: colin - With: Private Physician - When: 2 - 3 days - Reason: Recheck today's complaints, Continuance of care, Re-evaluation by your physician Followup: colin - With: Pancho Carver MD - When: 2 - 3 days - Reason: Recheck today's complaints, Continuance of care, Re-evaluation by your physician Discharge Instructions: - Discharge Summary Sheet colin - Blunt Abdominal Trauma colin - Chest Wall Pain colin - Cirrhosis colin - Potassium Content of Foods colin - Obesity, Adult colin - How to Use an Incentive Spirometer colin - Chest Wall Pain, [id number] colin - Hypokalemia colin - Obesity, Adult, [id number] [facility] Forms: - Medication Reconciliation Form [facility] - Thank You Letter colin - Antibiotic Education colin - Prescription Opioid Use colin - Patient Portal Instructions [facility] - Leadership Thank You Letter [facility] Prescriptions: - acetaminophen-codeine 300-30 mg Oral tablet - take 2 tablet ORAL route every 6-8 hours as needed for pain; 20 tablet; [facility] Refills: 0, Product Selection Permitted Signatures: Dispatcher [employer] Jared Salazar MD MD cha Logdahl, Aden tl4
--- NOTE | 2023-04-05 15:24 | ER ---
Nurse's Notes [facility] Name: Jayson Joe Sr Age: 72 yrs Sex: Male : 1950 Arrival Date: 04/05/2023 Time: 12:26 Bed 6 Private MD: Diagnosis: Fall on same level, unspecified;Contusion of abdominal wall;Contusion of front wall of thorax;Obesity, unspecified;Other cirrhosis of liver;Hypokalemia Presentation: 04/05 12:29 Chief complaint: Patient states: Pt c/o abdominal pain and dizziness. Pt states he bent tl4 over to pet his dog and fell forward. Pt states he is frequently dizzy. Pt denies CP, SOB. Coronavirus screen: Vaccine status: Patient reports receiving the 2nd dose of the covid vaccine. Ebola Screen: Patient negative for fever greater than or equal to 101.5 degrees Fahrenheit, and additional compatible Ebola Virus Disease symptoms Patient denies exposure to infectious person. Patient denies travel to an Ebola-affected area in the 21 days before illness onset. No symptoms or risks identified at this time. Initial Sepsis Screen: Does the patient meet any 2 criteria? No. Patient's initial sepsis screen is negative. Does the patient have a suspected source of infection? No. Patient's initial sepsis screen is negative. Risk Assessment: Do you want to hurt yourself or someone else? Patient reports no desire to harm self or others. Onset of symptoms was April 05, 2023 at 08:00. 12:29 Method Of Arrival: EMS: [facility] tl4 12:29 Acuity: LEO 3 tl4 Historical: - Allergies: 12:47 PENICILLINS; tl4 - Home Meds: 12:47 nystatin Topical [Active]; allopurinol 300 mg Oral tablet daily [Active]; bumetanide 2 tl4 mg Oral tablet 2 in the morning [Active]; carvedilol 6.25 mg Oral tablet twice a day [Active]; cephalexin 500 mg Oral capsule [Active]; Farxiga 10 mg Oral tablet daily [Active]; gabapentin 300 mg Oral capsule [Active]; mexiletine 200 mg Oral capsule three times a day [Active]; Nystop Topical [Active]; omeprazole 40 mg Oral capsule daily [Active]; warfarin 5 mg Oral tablet daily [Active]; spironolactone 25 mg Oral tablet [Active]; Rybelsus 7 mg Oral tablet twice a day [Active]; Potassium Chloride Oral [Active]; sertraline 100 mg Oral tablet twice a day [Active]; - PMHx: 12:47 Cerebrovascular accident; Chronic obstructive lung disease; Stroke/TIA; Congestive tl4 heart failure; diabetes mellitus; Gout; Hypertensive disorder; High Cholesterol; pacemaker/defibrilator; pain pump; Parkinson's disease; - PSHx: 12:47 neck; foot; Appendectomy; back; Cholecystectomy; dental; tl4 - Immunization history:: Adult Immunizations unknown. - Social history:: Smoking status: Patient/guardian denies using tobacco, the patient reports quitting approximately 40 years ago. Screenin:02 [facility] ED Fall Risk Assessment (Adult) History of falling in the last 3 months, tl4 including since admission Yes- fall prone (multiple falls) (3 pts) Confusion or Disorientation No (0 pts) Intoxicated or Sedated No (0 pts) Impaired Gait Yes (1 pt) Mobility Assist Device Used Yes (1 pt) Altered Elimination No (0 pt) Score/Fall Risk Level 3 or more points = High Risk Oriented to surroundings, Maintained a safe environment, Educated pt \T\ family on fall prevention, incl call for assistance when getting out of bed, Assessed \T\ reinforced patient's understanding of fall precautions, Provided non-skid footwear, Hourly rounding (assess needs \T\ fall precautionary measures) done, Used ambulatory aids as needed (educated on \T\ assisted with), Used gait belt as appropriate. Abuse screen: Denies threats or abuse. Denies injuries from another. Nutritional screening: No deficits noted. Tuberculosis screening: No symptoms or risk factors identified. Assessment: 13:03 General: Appears in no apparent distress. Behavior is calm, cooperative. Pain: tl4 Complains of pain in abdomen Pain does not radiate. Neuro: No deficits noted. Neuro: Reports dizziness, pt has ongoing intermittent dizziness. Cardiovascular: No deficits noted. Denies chest pain, diaphoresis, lightheadedness, palpitations. Respiratory: No deficits noted. Breath sounds are clear bilaterally. Denies cough, shortness of breath. GI: No deficits noted. No signs and/or symptoms were reported involving the gastrointestinal system. : No deficits noted. No signs and/or symptoms were reported regarding the genitourinary system. EENT: No deficits noted. No signs and/or symptoms were reported regarding the EENT system. 14:06 Reassessment: No changes from previously documented assessment. Patient and/or family tl4 updated on plan of care and expected duration. Pain level reassessed. Patient is alert, oriented x 3, equal unlabored respirations, skin warm/dry/pink. 14:54 Reassessment: Pt given incentive spirometer and instruction for use. Pt demonstrated tl4 understanding and proper use of the spirometer. Pt encouraged to use frequently. Pt observed pt using incentive spirometer correctly multiple times. Vital Signs: 12:29 BP 132 / 77; Pulse 80; Resp 18; Temp 97.8; Pulse Ox 96% on R/A; Weight 158.76 kg; tl4 Height 6 ft. 0 in. ; Pain 6/10; 13:28 BP 129 / 64; Pulse 80; Resp 18; Pulse Ox 94% on 2 lpm NC; tl4 14:05 BP 114 / 69; Pulse 80; Resp 19; Pulse Ox 100% on 2 lpm NC; tl4 14:46 BP 112 / 64; Pulse 82; Resp 18; Pulse Ox 98% on 2 lpm NC; tl4 15:28 BP 105 / 61; Pulse 80; Resp 17; Pulse Ox 96% ; ko1 15:43 BP 115 / 57; Pulse 78; Resp 18; Pulse Ox 96% on R/A; tl4 12:29 Body Mass Index 47.47 (158.76 kg, 182.88 cm) tl4 12:29 Pain Scale: Adult tl4 Vitals: 13:28 Cardiac Rhythm Assessment Regular Paced. tl4 ED Course: 12:28 Patient arrived in ED. ko1 12:30 Jared Escobar MD is Attending Physician. colin 12:47 Triage completed. tl4 12:50 Arm band placed on Patient placed in an exam room, on a stretcher. tl4 12:52 Maintain EMS IV. Dressing intact. Good blood return noted. Site clean \T\ dry. Gauge \T\ tl 4 site: 20g left hand. 13:03 Patient has correct armband on for positive identification. Placed in gown. Bed in low tl4 position. Call light in reach. Side rails up X2. Adult w/ patient. Provided Education on: ed process. Client placed on continuous cardiac and pulse oximetry monitoring. NIBP monitoring applied. air duct mechanic on. Door closed. Moved to private room. Warm blanket given. 13:03 No provider procedures requiring assistance completed. tl4 13:05 Basic Metabolic Panel Sent. tl4 13:05 CBC with Diff Sent. tl4 13:05 LFT's Sent. tl4 13:05 Magnesium Sent. tl4 13:05 NT PRO-BNP Sent. tl4 13:05 PT-INR Sent. tl4 13:05 Troponin HS Sent. tl4 13:05 Lipase Sent. tl4 13:07 XRAY Chest (1 view) In Process Unspecified. EDMS 14:22 CT Traumagram (Head C Spine CAP W Con) In Process Unspecified. EDMS 14:39 INCENTIVE SPIROMETRY Sent. tl4 14:52 Shanique Frederick, ELYSIA is Primary Nurse. ko1 15:21 Pancho aCrver MD is Referral Physician. colin 15:44 IV discontinued, intact, bleeding controlled, No redness/swelling at site. Pressure tl4 dressing applied. Administered Medications: 13:27 Drug: NS 0.9% IV 500 ml IV at bolus once Route: IV; Rate: bolus; Site: left hand; tl4 14:26 Follow up: Response: No adverse reaction; IV Status: Completed infusion; IV Intake: tl4 500ml 13:27 Drug: morphine IVP or IV 4 mg IVP once over 4 mins Route: IVP; Infused Over: 4 mins; tl4 Site: left hand; 14:25 Follow up: Response: Pain is decreased tl4 13:27 Drug: Ondansetron IVP 4 mg IVP once; over 2 minutes Route: IVP; Site: left hand; tl4 14:25 Follow up: Response: Nausea is decreased tl4 14:39 Drug: Potassium PO Effervescent Tablet 50 mEq PO once; dissolve in 4 ounces of water or tl4 juice Route: PO; 15:14 Follow up: Response: No adverse reaction tl4 15:14 Drug: Potassium PO Effervescent Tablet 50 mEq PO once; dissolve in 4 ounces of water or tl4 juice Route: PO; 15:43 Follow up: Response: No adverse reaction tl4 Medication: 13:02 VIS not applicable for this client. tl4 Intake: 14:26 IV: 500ml; Total: 500ml. tl4 Outcome: 15:23 Discharge ordered by . colin 15:44 Discharged to home via wheelchair, with family, tl4 15:44 Condition: stable 15:44 Discharge instructions given to patient, family, Instructed on discharge instructions, follow up and referral plans. medication usage, Demonstrated understanding of instructions, follow-up care, medications, Prescriptions given X 1, 16:03 Patient left the ED. tl4 Signatures: Dispatcher [employer] EDPR Jared Escobar MD MD cha Oliver, Kathy, RN RN ko1 Aden Nuno tl4
[2023-04-05 17:19] VITALS: BP 115/57; TEMP 97.8; O2SAT 96
--- NOTE | 2023-04-12 13:57 | EKG ---
Test Date: 2023-04-05 Test Time: 13:15:06 [employer]: TL MEASUREMENT RESULTS: Intervals: Rate: 80 [place]: QRSD: 162 QT: 484 QTc: 558 [place]: P: 81 [place]: QRS: 269 T: 81 INTERPRETIVE STATEMENTS: AV sequential or dual chamber electronic pacemaker Compared to ECG 02/26/2023 11:23:11 Ventricular-paced complex(es) or rhythm no longer present Electronically Signed On 04-12-23 13:31:22 [employer] by Natanael Garcia
== END ==
LOC: ER 12:26
DX: S20.219A Contusion of unspecified front wall of thorax, initial encounter (principal); S30.1XXA Contusion of abdominal wall, initial encounter; W18.30XA Fall on same level, unspecified, initial encounter; Y93.89 Activity, other specified; Y92.9 Unspecified place or not applicable; E66.9 Obesity, unspecified; K74.60 Unspecified cirrhosis of liver; E87.6 Hypokalemia; Z68.42 Body mass index [BMI] 45.0-49.9, adult
CPT/HCPCS: 96361; 93005; 85025; 80048; 36415; 83735; 85610; 80076; 84484; 83690; 83880; 70450; 72125; 71260; 74177; 71045; 96375; 96374; 99285; Q9967; J2405; J7040

== ENCOUNTER 2023-04-17 12:51 | Inpatient (IN) | payer MEDICARE ==
[2023-04-17 13:41] LABS: Absolute Lymphocytes (CBC) 2.9 K/uL (0.7-4.9); Hematocrit 45.2 % (39.6-49.0); Lymphocytes % 24.8 % (15.3-44.8); MCV 95.3 fL (80-100); MPV 9.1 fL (7.6-11.3); Platelets 149 thou/uL (152-406); RBC Red Blood Cell Count 4.74 M/uL (4.33-5.43)
[2023-04-17 13:45] LABS: Protime INR 3.69
[2023-04-17 13:54] LABS: Albumin 3.4 g/dL (3.4-5.0); Bilirubin Direct 0.4 mg/dL (0-0.2); Bilirubin Indirect, Calculated 0.7 mg/dL (0.2-0.8); Bilirubin Total 1.1 mg/dL (0.2-1.0); Magnesium 1.8 mg/dL (1.6-2.4); Potassium 2.8 mEq/L (3.5-5.1); Protein, Total 7.5 g/dL (6.4-8.2); Troponin High Sensitivity 10.4 pg/mL (<58.9)
--- NOTE | 2023-04-17 14:01 | RAD REPORT ---
EXAM DESCRIPTION: RAD - Chest Single View - 04/17/2023 1:55 pm CLINICAL HISTORY: DYSPNEA Chest pain. COMPARISON: <Comparisons> FINDINGS: Portable technique limits examination quality. [id number]-pi-[id number] pulmonary edema suspected. The heart is moderately enlarged. No displaced fractures. Multi lead pacer device is present. IMPRESSION: Mild to moderate CHF.
--- NOTE | 2023-04-17 14:09 | RAD REPORT ---
EXAM DESCRIPTION: CT - Head Brain Wo Cont - 04/17/2023 1:59 pm CLINICAL HISTORY: Headache;Weakness Headache, drowsiness COMPARISON: <Comparisons> TECHNIQUE: All CT scans are performed using dose optimization technique as appropriate and may inclu de automated exposure control or mA/KV adjustment according to patient size. FINDINGS: No intracranial hemorrhage, hydrocephalus or extra-axial fluid collection.No areas of brai n edema or evidence of midline shift. The paranasal sinuses and mastoids are clear. The calvarium is intact. IMPRESSION: No acute intracranial abnormality.
[2023-04-17] MEDS ORDERED: POTASSIUM CL SA 10 MEQ TAB PO ONE (14:11)
[2023-04-17] MEDS ORDERED: NA CHLORIDE 0.9% 500 ML ONE (14:12)
--- NOTE | 2023-04-17 14:12 | RAD REPORT ---
EXAM DESCRIPTION: CT - Head angio - 04/17/2023 1:59 pm CLINICAL HISTORY: Headache;Weakness Headache, drowsiness COMPARISON: <Comparisons> TECHNIQUE: CT angiography of the head was performed with MIPs. All CT scans are performed using dose optimization technique as appropriate and may include automated exposure control or mA/KV adjustment according to patient size. FINDINGS: No evidence of large vessel occlusion. No evidence of aneurysm is detected. No flow-limiti ng stenosis or vascular malformation identified. Antegrade flow is seen in the vertebral arteries. The left vertebral artery is dominant. The visualized dural venous sinuses are patent. IMPRESSION: No significant flow abnormality is detected.
--- NOTE | 2023-04-17 14:16 | RAD REPORT ---
EXAM DESCRIPTION: CT - Neck Angio - 04/17/2023 2:01 pm CLINICAL HISTORY: Pain;Headache Headache, drowsiness COMPARISON: <Comparisons> TECHNIQUE: CT angiography of the neck vessels was performed with MIPs. All CT scans are performed using dose optimization technique as appropriate and may include automated exposure control or mA/KV adjustment according to patient size. FINDINGS: A left aortic arch is identified with normal three vessel configuration of the great vesse ls. Left common carotid artery is poorly evaluated due to artifact from spinal hardware in the cervical s pine. Right common carotid artery has an unremarkable appearance. Mild hard plaque is seen in both carotid bulbs. The findings do not result in a significant carotid s tenosis on either side. Four flow is seen in both vertebral arteries, left vertebral artery appears mildly dominant. IMPRESSION: Mild hard plaquing in both carotid bulbs, slightly greater on the left, without signific ant carotid stenosis seen. NASCET criteria used. Mild 0-49% stenosis Moderate 50-69% stenosis Severe 70-99% stenosis
--- NOTE | 2023-04-17 15:03 | EDPHYS ---
Physician Documentation [facility] Name: Jayson Joe Sr Age: 72 yrs Sex: Male : 1950 Arrival Date: 04/17/2023 Time: 12:51 Bed 2 Private MD: ED Physician Jared Escobar HPI: 04/17 14:24 This 72 yrs old Male presents to ER via Wheelchair with complaints of Low blood kb pressure, left side pain, Headache. 14:25 Pt is a 72 year old male who presents with headache and lightheadedness. States he was kb watching a movie and started feeling bad/lightheaded so he checked his bp and it was 80/30. States he checked it a few more times, 95 systolic prior to coming to ER. Reports headache. States he had felt some numbness to left arm, but it resolved after rubbing it. Reports dizziness upon changing positions. Historical: - Allergies: 13:06 PENICILLINS; ap3 - PMHx: 13:06 Cerebrovascular accident; Chronic obstructive lung disease; Congestive heart failure; ap3 diabetes mellitus; Gout; High Cholesterol; Hypertensive disorder; pacemaker/defibrilator; pain pump; Parkinson's disease; Stroke/TIA; - Immunization history:: Client reports receiving the 2nd dose of the Covid vaccine, Flu vaccine is not up to date. - Social history:: Smoking status: Patient denies any tobacco usage or history of. ROS: 13:06 Constitutional: Negative for fever, chills, and weight loss, kb 13:06 Respiratory: Positive for shortness of breath, 13:06 Neuro: Positive for headache, weakness, 13:06 All other systems are negative, Exam: 14:23 Constitutional: This is a well developed, well nourished patient who is awake, alert, kb and in no acute distress. Head/Face: Normocephalic, atraumatic. ENT: Moist Mucous membranes Cardiovascular: Regular rate Respiratory: Respirations even and unlabored. No increased work of breathing. Talking in full sentences Abdomen/GI: Soft, non-tender. No distention Skin: Warm, dry with normal turgor. Normal color. MS/ Extremity: Pulses equal, no cyanosis. Neurovascular intact. Full, normal range of motion. 14:23 Neuro: Orientation: to person, place, time \T\ situation. Mentation: is normal, Motor: moves all fours, Sensation: is normal, Vital Signs: 13:04 BP 91 / 52; Pulse 79; Resp 18; Temp 97.7; Pulse Ox 94% on R/A; Weight 156.94 kg; Height ap3 6 ft. 0 in. ; Pain 4/10; 13:35 Weight 158.3 kg; ph 14:53 BP 102 / 81; Pulse 80; Resp 18; Pulse Ox 94% on R/A; ph 16:00 BP 121 / 68; Pulse 80; Resp 18; Temp 97.5; Pulse Ox 96% on R/A; ph 13:04 Body Mass Index 46.93 (158.30 kg, 182.88 cm) ap3 13:04 Pain Scale: Adult ap3 MDM: 12:57 Patient medically screened. kb 14:23 Data reviewed: vital signs, nurses notes. kb 14:24 Differential diagnosis: cardiac arrhythmia, CVA, generalized weakness, hypovolemia, kb TIA. Consideration of Admission/Observation Patient was admitted/placed on observation. Escalation of care including admission/observation considered. Historians other than the Patient: Spouse/Significant Other: . Counseling: I had a detailed discussion with the patient and/or guardian regarding the historical points, exam findings, and any diagnostic results supporting the discharge/admit diagnosis, lab results, radiology results, the need for further work-up and treatment in the hospital. 15:00 Management of patient was discussed with the following: Hospitalist: Hospitalist team, lisandro pt accepted for admission under Dr Carroll. 04/17 13:04 Order name: Basic Metabolic Panel; Complete Time: 13:55 ap3 04/17 13:04 Order name: CBC with Diff; Complete Time: 13:44 ap3 04/17 13:04 Order name: Hepatic Function; Complete Time: 13:55 ap3 04/17 13:04 Order name: Magnesium; Complete Time: 13:55 ap3 04/17 13:04 Order name: Protime (+inr); Complete Time: 13:45 ap3 04/17 13:04 Order name: Ptt, Activated; Complete Time: 13:45 ap3 04/17 13:04 Order name: Troponin High Sensitivity; Complete Time: 13:55 ap3 04/17 13:22 Order name: Glucose, Ancillary Testing; Complete Time: 13:36 EDMS 04/17 15:20 Order name: Urinalysis w/ reflexes EDMS 04/17 15:20 Order name: Basic Metabolic Panel EDMS 04/17 15:20 Order name: Basic Metabolic Panel EDMS 04/17 15:20 Order name: Basic Metabolic Panel EDMS 04/17 15:20 Order name: CBC with Automated Diff EDMS 04/17 15:20 Order name: CBC with Automated Diff EDMS 04/17 15:21 Order name: CBC with Automated Diff EDMS 04/17 15:21 Order name: Magnesium EDMS 04/17 15:21 Order name: Magnesium EDMS 04/17 15:21 Order name: Magnesium EDMS 04/17 13:04 Order name: CT Head Brain wo Cont; Complete Time: 14:11 ap3 04/17 13:04 Order name: Chest Single View XRAY; Complete Time: 14:03 ap3 04/17 13:17 Order name: CT Head Angio; Complete Time: 14:15 kb 04/17 13:17 Order name: CT Neck Angio; Complete Time: 14:22 kb 04/17 13:04 Order name: EKG; Complete Time: 13:04 ap3 04/17 13:04 Order name: Cardiac monitoring; Complete Time: 13:22 ap3 04/17 13:04 Order name: EKG - Nurse/Tech; Complete Time: 13:25 ap3 04/17 13:04 Order name: IV Saline Lock; Complete Time: 13:25 ap3 04/17 13:04 Order name: Labs collected and sent; Complete Time: 13:25 ap3 04/17 13:04 Order name: NPO; Complete Time: 13:25 ap3 04/17 13:04 Order name: O2 Per Protocol; Complete Time: 13:22 ap3 04/17 13:04 Order name: O2 Sat Monitoring; Complete Time: 13:22 ap3 04/17 13:26 Order name: Misc. Order: weigh pt; Complete Time: 13:35 as6 Administered Medications: 14:18 Drug: Potassium Chloride PO 40 mEq PO once Route: PO; ll1 15:00 Follow up: Response: No adverse reaction rs5 14:18 Drug: NS 0.9% IV 500 ml IV at bolus once Route: IV; Rate: bolus; Site: right forearm; ll1 15:00 Follow up: Response: No adverse reaction rs5 Disposition Summary: 04/17/23 15:02 Hospitalization Ordered Notes: Hospitalization Status: Inpatient Admission kb Provider: Faraz Carroll Condition: Stable kb Problem: new kb Symptoms: are unchanged kb Bed/Room Type: Standard kb Location: Intensive Care Unit(04/17/23 15:57) bd Room Assignment: 5-(04/17/23 15:57) bd Diagnosis - Hypokalemia kb - Dehydration kb - Acute kidney failure, unspecified kb - Weakness kb - Unspecified combined systolic (congestive) and diastolic (congestive) heart failure kb Forms: - Medication Reconciliation Form kb - SBAR form kb - Leadership Thank You Letter kb Signatures: Dispatcher [employer] EDMS Lu Caballero FNP-C DIRECTOR OF MEDICARE-Chacha Zapata Amanda RN RN ap3 Mona Wiley RN RN ll1 Andre Arevalo RN RN as6 Jl Cuenca RN rs5 Corrections: (The following items were deleted from the chart) 15:55 15:02 kb bd 15:57 15:02 Telemetry/MedSurg (Inpatient) kb bd 15:57 15:55 211 bd
--- NOTE | 2023-04-17 15:03 | ER ---
Nurse's Notes [facility] Name: Jayson Joe Sr Age: 72 yrs Sex: Male : 1950 Arrival Date: 04/17/2023 Time: 12:51 Bed 2 Private MD: Diagnosis: Hypokalemia;Dehydration;Acute kidney failure, unspecified;Weakness;Unspecified combined systolic (congestive) and diastolic (congestive) heart failure Presentation: 04/17 13:04 Chief complaint: Patient states: he was watching TV today when he got light headed ap3 followed by a headache. patient states he then took his blood pressure and it was in the 80's systolic. patient complains of dizziness and left sided pain at this time. Chief complaint: Patient states: his left arms "feels real real heavy". Coronavirus screen: At this time, the client does not indicate any symptoms associated with coronavirus-19. Ebola Screen: No symptoms or risks identified at this time. Initial Sepsis Screen: Does the patient meet any 2 criteria? No. Patient's initial sepsis screen is negative. Does the patient have a suspected source of infection? No. Patient's initial sepsis screen is negative. Risk Assessment: Do you want to hurt yourself or someone else? Patient reports no desire to harm self or others. Onset of symptoms is unknown. 13:04 Method Of Arrival: Wheelchair ap3 13:04 Acuity: LEO 2 ap3 Triage Assessment: 13:07 Headache History: The patient has had previous headaches and this one is similar to ap3 previous episodes. General: Appears in no apparent distress. Behavior is calm, cooperative, appropriate for age. Pain: Complains of pain in left side of body Pain currently is 4 out of 10 on a pain scale. at worst was 10 out of 10 on a pain scale. Pain began suddenly, 1 hour ago. Also complains of lightheadedness and dizziness. Neuro: Level of Consciousness is awake, alert, obeys commands, Oriented to person, place, time, situation, Appropriate for age Reports dizziness, light headedness. Cardiovascular: Patient's skin is warm and dry. Respiratory: Airway is patent Respiratory effort is even, unlabored, Respiratory pattern is regular, symmetrical. Historical: - Allergies: 13:06 PENICILLINS; ap3 - PMHx: 13:06 Cerebrovascular accident; Chronic obstructive lung disease; Congestive heart failure; ap3 diabetes mellitus; Gout; High Cholesterol; Hypertensive disorder; pacemaker/defibrilator; pain pump; Parkinson's disease; Stroke/TIA; - Immunization history:: Client reports receiving the 2nd dose of the Covid vaccine, Flu vaccine is not up to date. - Social history:: Smoking status: Patient denies any tobacco usage or history of. Screenin:08 Abuse screen: Denies threats or abuse. Nutritional screening: No deficits noted. ap3 Tuberculosis screening: No symptoms or risk factors identified. 13:10 [facility] ED Fall Risk Assessment (Adult) History of falling in the last 3 months, rs5 including since admission No falls in past 3 months (0 pts) Confusion or Disorientation No (0 pts) Intoxicated or Sedated No (0 pts) Impaired Gait Yes (1 pt) Mobility Assist Device Used Yes (1 pt) Altered Elimination No (0 pt) Score/Fall Risk Level 0 - 2 = Low Risk Oriented to surroundings, Maintained a safe environment. Assessment: 13:10 General: Appears in no apparent distress. uncomfortable, Behavior is calm, cooperative. rs5 Pain: Denies pain. Neuro: Level of Consciousness is awake, alert, obeys commands, Oriented to person, place, time, situation, Guest Advisor are equal bilaterally Moves all extremities. Gait is unsteady, Speech is normal, Facial symmetry appears normal, Pupils are PERRLA, Pupil Size: 3mm Intact Reports feeling weak on left upper and lower extremity. 13:10 Cardiovascular: Heart tones S1 S2 present Rhythm is regular. Respiratory: Airway is rs5 patent Respiratory effort is even, unlabored, Respiratory pattern is regular, symmetrical, Breath sounds are clear bilaterally. GI: Abdomen is round non-distended, Bowel sounds present X 4 quads. Abd is soft and non tender X 4 quads. : No signs and/or symptoms were reported regarding the genitourinary system. EENT: No signs and/or symptoms were reported regarding the EENT system. Derm: Skin is intact, Skin is pink, warm \\T\\ dry. Musculoskeletal: Capillary refill < 3 seconds, Range of motion: intact in all extremities. 14:18 Reassessment: No changes from previously documented assessment. Patient and/or family ll1 updated on plan of care and expected duration. Pain level reassessed. Patient is alert, oriented x 3, equal unlabored respirations, skin warm/dry/pink. 15:40 Reassessment: Patient and/or family updated on plan of care and expected duration. Pain rs5 level reassessed. Patient is alert, oriented x 3, equal unlabored respirations, skin warm/dry/pink. Patient denies pain at this time. Patient states feeling better. Vital Signs: 13:04 BP 91 / 52; Pulse 79; Resp 18; Temp 97.7; Pulse Ox 94% on R/A; Weight 156.94 kg; Height ap3 6 ft. 0 in. ; Pain 4/10; 13:35 Weight 158.3 kg; ph 14:53 BP 102 / 81; Pulse 80; Resp 18; Pulse Ox 94% on R/A; ph 16:00 BP 121 / 68; Pulse 80; Resp 18; Temp 97.5; Pulse Ox 96% on R/A; ph 13:04 Body Mass Index 46.93 (158.30 kg, 182.88 cm) ap3 13:04 Pain Scale: Adult ap3 ED Course: 12:52 Patient arrived in ED. im 12:56 Lu Caballero FNP-C is PHCP. kb 12:56 Jared Escobar MD is Attending Physician. kb 13:06 Triage completed. ap3 13:08 Arm band placed on right wrist. ap3 13:13 Briseyda Cabello, RN is Primary Nurse. ph 13:26 Inserted saline lock: 20 gauge in right forearm, using aseptic technique. Blood as6 collected. 13:26 CBC with Diff Sent. as6 13:26 Hepatic Function Sent. as6 13:26 Magnesium Sent. as6 13:27 Protime (+inr) Sent. as6 13:27 Ptt, Activated Sent. as6 13:27 Troponin High Sensitivity Sent. as6 13:35 Patient has correct armband on for positive identification. Placed in gown. Bed in low ph position. Call light in reach. Side rails up X2. Client placed on continuous cardiac and pulse oximetry monitoring. NIBP monitoring applied. Door closed. Noise minimized. 13:57 Chest Single View XRAY In Process Unspecified. EDMS 14:00 CT Head Brain wo Cont In Process Unspecified. EDMS 14:00 CT Head Angio In Process Unspecified. EDMS 14:03 CT Neck Angio In Process Unspecified. EDMS 15:02 Christiano Carroll is Hospitalizing Provider. kb 15:02 Hospitalizing Provider role handed off by Christiano Carroll kb 15:02 Faraz Carroll MD is Hospitalizing Provider. kb 16:29 No provider procedures requiring assistance completed. Patient admitted, IV remains in rs5 place. Administered Medications: 14:18 Drug: Potassium Chloride PO 40 mEq PO once Route: PO; ll1 15:00 Follow up: Response: No adverse reaction rs5 14:18 Drug: NS 0.9% IV 500 ml IV at bolus once Route: IV; Rate: bolus; Site: right forearm; ll1 15:00 Follow up: Response: No adverse reaction rs5 Medication: 13:35 VIS not applicable for this client. ph Outcome: 15:02 Decision to Hospitalize by Provider. kb 16:29 Discharged to home ambulatory, rs5 16:29 Condition: stable 16:29 Discharge instructions given to patient, Instructed on discharge instructions, follow up and referral plans. Demonstrated understanding of instructions, follow-up care, 16:41 Patient left the ED. as6 Signatures: Dispatcher [employer] EDMS Lu Caballero, ADMINISTRATIVE SUPERVISOR-C ADMINISTRATIVE SUPERVISOR-Ckb Briseyda Cabello RN RN ph Natalie Almanzar RN RN ap3 Mona Wiley RN RN ll1 Andre Arevalo RN RN as6 Jl Cuenca RN RN rs5 Krupa Ansari
--- NOTE | 2023-04-17 15:14 | P.HP ---
Certification for Inpatient Patient admitted to: Inpatient Patient will require the following post-hospital care: None Practitioner: I am a practitioner with admitting privileges, knowledge of patient current condition, hospital course, and medical plan of care. Services: Services provided to patient in accordance with Admission requirements found in Title 42 Section 412.3 of the Code of Federal Regulations Patient History Date of Service: 04/17/23 Reason for admission: Hypotension History of Present Illness: 72-year-old male with a past medical history of CVA, TIA left-sided weakness, COPD congestive heart failure A-fib chronic anticoagulation warfarin, pacemaker with defibrillator, diabetes type 2 gout, hypertension, hyperlipidemia, Parkinson, chronic pain with the morphine pain pump, due to sciatica presents to the emergency room with hypotension. reports blood pressure at home 80 systolic. is at bedside is primary historian reports patient has had pe riods of hyper hypotension over the last couple months, she reports fall 1 week ago, no reported loss of consciousness, reported he caught himself denies head injury, reports patient has been more lethargic, she reports recent recent pain pump changed 1 week ago. She reports dose has not changed. Patient reports history of obstructive sleep apnea with CPAP reports recent sinus infection/flu patient has not been using CPAP for the last couple weeks. Reports not sleeping at night. No reported chest pain, nausea vomiting diarrhea, edema. Plan to admit for acute on chronic heart failure labile hypotension, generalized weakness, supra therapeutic INR chronic anticoagulation, dehydration, hypokalemia laboratory evaluation potassium 2.8 acute on chronic kidney injury BUN 23 creatinine 1.39, leukocytosis WBCs 11.50, CT of the head negative for acute cva, CTA of the neck IMPRESSION: Mild hard plaquing in both carotid bulbs, slightly greater on the left, without significant carotid stenosis seen. Chest x-ray mild to moderate pulmonary edema Allergies Penicillins Allergy (Severe, Verified 06/30/22 22:26) Anaphylaxis Home Medications: Allopurinol 300 mg PO DAILY 06/30/22 Atorvastatin Calcium 40 mg PO BEDTIME 06/30/22 Bumetanide [Bumex] 2 mg PO DAILY 06/30/22 Dapagliflozin Propanediol [Farxiga] 10 mg PO DAILY 06/30/22 Gabapentin 300 mg PO BID 06/30/22 Mexiletine HCl 200 mg PO BID 06/30/22 Omeprazole [Prilosec] 40 mg PO DAILY 06/30/22 Potassium Chloride 20 meq PO SEECOM 06/30/22 Sertraline [Zoloft*] 100 mg PO BID 06/30/22 Spironolactone 25 mg PO DAILY 06/30/22 Warfarin Sodium 7.5 mg PO SEECOM 06/30/22 carvediloL [Carvedilol] 6.25 mg PO BID 06/30/22 Carbidopa/Levodopa [Carbidopa-Levo 25-100 mg Odt] 1 each PO BID 02/26/23 Dupilumab [Dupixent Pen] 300 mg SQ SEECOM 02/26/23 Nystatin [Nystop] 15 gm TP PRN PRN 02/26/23 Sacubitril/Valsartan [Entresto 97 mg-103 mg Tablet] 1 tab PO DAILY 02/26/23 Trazodone [Desyrel*] 50 mg PO BEDTIME 02/26/23 Triamcinolone 0.1% Crm [Kenalog 0.1% Cream*] 454 gm TP DAILY 02/26/23 buPROPion HCL [Bupropion Xl] 300 mg PO DAILY 02/26/23 - Past Medical/Surgical History Diabetic: Yes -: CVA -: COPD -: CHFsystolic -: Type 2 [id number] -: Gout -: Hypertension -: Hyperlipdemia -: Parkinson's -: Chronic pain with pain pump -: Pacemaker/defibrillator -: Appendectomy -: Cholecystectomy -: Pain pump Psychosocial/ Personal History: Patient is . Lives at home with his - Social History Alcohol use: No CD- Drugs: No Caffeine use: No Review of Systems per HPI Physical Examination - Physical Exam General: Oriented x3, Other (lethargic, responds to verbal, ) HEENT: Atraumatic Neck: Supple, JVD not distended Respiratory: Clear to auscultation bilaterally, Normal air movement Cardiovascular: No edema, Normal pulses, Other (PPM ) Capillary refill: <2 Seconds Gastrointestinal: Normal bowel sounds, Soft and benign, Other (obese) Musculoskeletal: No clubbing, No swelling, Other (LUE/LLE weakness, hx old cva) Neurological: Normal speech, Sensation intact, Other (lethargic, responds to verbal, [place]WR[place].LLE hx old cva ) - Studies Laboratory Data (last 24 hrs) 04/17/23 04/17/23 04/17/23 13:23 13:23 13:23 WBC 11.50 H Hgb 15.3 Hct 45.2 Plt Count 149 L PT 39.1 H INR 3.69 APTT 47.6 H Sodium 137 Potassium 2.8 L BUN 23 H Creatinine 1.39 H Glucose 109 H Magnesium 1.8 Total Bilirubin 1.1 H AST 34 ALT 21 Alkaline Phosphatase 107 Assessment and Plan - Plan Assessment plan Acute on chronic heart failure unknown baseline A-fib RVR History of a permanent pacemaker, defibrillator Chronic anticoagulation warfarin Supratherapeutic INR BMP, telemetry, Hold INR today recheck INR in the a.m. reports blood pressure at home 80 systolic. is at bedside is primary historian reports patient has had periods of hyper hypotension over the last couple months, she reports fall 1 week ago, no reported loss of consciousness, reported he caught himself denies head injury, reports patient has been more lethargic, she reports recent recent pain pump changed 1 week ago. Chest x-ray mild to moderate pulmonary edema Cardiology consult Lethargy likely secondary to insomnia, noncompliant with CPAP CT of the head negative for acute cva, CTA of the neck IMPRESSION: Mild hard plaquing in both carotid bulbs, slightly greater on the left, without sign ificant carotid stenosis seen. Fall precaution Leukocytosis unknown source leukocytosis WBCs 11.50, Will obtain UA Labile blood pressure Hypotension Telemetry, trend blood pressure, orthostatic vital sign Fall precautions History of a CVA left-sided weakness History of a TIA Ambulates with a rolling walker at baseline, reports fall 1 week ago, PT consult acute on chronic kidney injury unknown based BUN 23 creatinine 1.39, Avoid nephrotoxic medications, gentle IV fluid Hypokalemia potassium 2.8,trend elec replace prn Obstructive sleep apnea Noncompliant with CPAP History COPD stable Nebulizers, as needed O2 2 L as needed keep sats greater than 90% CPAP at bedtime diabetes type 2 Accu-Cheks, sliding scale insulin History of gout hypertension hyperlipidemia Parkinson Chronic pain Side Resume appropriate home meds Patient has a pain pump morphine Full code DVT patient is on warfarin hold due to supratherapeutic INR Diet cardiac Disposition patient resides at home has rolling walker Discharge Plan: Home - Advance Directives Does patient have a Living Will: No Does patient have a Durable POA for Healthcare: No - Code Status/Comfort Care Code Status: Full Code Critical Care: No Time Spent Managing Pts Care (In Minutes): 55
[2023-04-17] MEDS ORDERED: ONDANSETRON 4 MG/2 ML VIAL IV PRN (15:17)
[2023-04-17] MEDS: POTASSIUM CL 40 MEQ in NA CHLORIDE 0.9% 500 ML IV ONE (17:16)
[2023-04-17] MEDS ORDERED: NA CHLORIDE 0.9% 1,000 ML ONE (17:17)
[2023-04-17] MEDS: NA CHLORIDE 0.9% 1,000 ML IV SCH (17:18)
[2023-04-17 17:19] VITALS: BMI 47.0
[2023-04-17 20:36] LABS: Specific Gravity 1.027 (1.005-1.030); Urine Bilirubin NEGATIVE (Negative); Urine Blood Negative (Negative); Urine Clarity Clear (Clear); Urine Color Light-Yellow (Yellow); Urine Glucose 3+ (Negative); Urine Protein NEGATIVE (Negative); Urine Urobilinogen Normal (Normal); Urine pH 6.5 (5.0-7.0)
[2023-04-17] MEDS: INFLUENZA VACCINE (for 6+ mo) 0.5 ML DOSE IMVAC ONE (22:00)
--- NOTE | 2023-04-17 22:30 | CON ---
Date of Consultation: 04/17/2023 Reason For Consultation: CHF. History Of Present Illness: A 72-year-old male, morbidly obese, history of CVA with left-sided weakn ess, congestive heart failure, atrial fibrillation on warfarin, has systolic heart failure with defib rillator in place, diabetes, dyslipidemia, hypertension, and chronic back pain, presented to the located within [facility] room due to low blood pressures running in the 70s, feeling generally weak. He is on Bumex at home apparently and his BUN and creatinine were slightly higher than baseline, suggestive of dehydrat ion. Denies having any chest pain or shortness of breath at the present time and no edema. Past Medical History: As outlined above in the HPI. Medications: Refer to reconciliation sheet for detailed list. Allergies: PENICILLIN. Family History: No premature coronary artery disease or cancer. Social History: He does not smoke or drink. Does not use any drugs. Review of Systems: All systems reviewed and they are negative except as mentioned in the HPI. Physical Examination: Vital Signs: Reviewed. Head and Neck: Pupils are equal, reactive to light. Intact eye movements. No JVD. No cervical lym phadenopathy. Neck: Supple. Thyroid is not enlarged. Lungs: Clear to auscultation bilaterally. No rhonchi, rales, or crackles. No accessory muscle use. Heart: Irregular. No extra sounds. Abdomen: Soft, nontender. Bowel sounds positive. No organomegaly. No masses or hernia. No rigidi ty or rebound. Extremities: No clubbing, cyanosis. No edema. Neurologic: Alert, awake, oriented x3. No acute focal deficits associated. Lymph Nodes: No cervical or axillary lymphadenopathy. Investigations: His creatinine is 1.39 and BUN is 23, potassium is 2.8. His creatinine baseline is 0.8. White blood cell count is 11.5, hemoglobin 15.3. Assessment And Recommendations: 1.Congestive heart failure, chronic. He is euvolemic right now. In fact, he is dehydrated. Recomm end gentle IV fluid management overnight and reassess. 2.Acute renal failure due to mild dehydration. Recommend gentle IV fluid overnight and reassess lab s in the morning to avoid overloading with fluids as there is history of congestive heart failure. L ow-dose half NS at 50 cc/hour overnight and reassess labs in the morning. 3.Hypotension due to dehydration. 4.Atrial fibrillation. In the present time, rate is controlled. Once his blood pressure is up, we will plan to resume AV temo blocking agents and continue anticoagulation. His INR is therapeutic. SR/MODL Voice ID: [id number] Report ID: [id number]
[2023-04-18 04:43] LABS: Protime INR 3.43
[2023-04-18 04:45] LABS: Absolute Lymphocytes (CBC) 2.1 K/uL (0.7-4.9); Lymphocytes % 27.1 % (15.3-44.8); MCV 97.2 fL (80-100); MPV 8.7 fL (7.6-11.3); Platelets 105 thou/uL (152-406); RBC Red Blood Cell Count 4.22 M/uL (4.33-5.43)
[2023-04-18 05:02] LABS: Magnesium 2.1 mg/dL (1.6-2.4); Potassium 3.4 mEq/L (3.5-5.1)
[2023-04-18] MEDS: POTASSIUM 25 MEQ EFFERV TAB PO ONE (05:30)
[2023-04-18] MEDS ORDERED: NA CHLORIDE 0.9% 1,000 ML ONE (06:41)
[2023-04-18] MEDS ORDERED: D50W 25 GM/50 ML SYRINGE IV PRN (07:33)
[2023-04-18] MEDS ORDERED: GLUCAGON 1 MG/VIAL IM PRN (07:33)
--- NOTE | 2023-04-18 07:35 | P.PN ---
Subjective Date of Service: 04/18/23 Chief Complaint: Hypotension Ambulated with physical therapy, no acute events overnight, still blood pressure stable 136, 115, - Physical Exam General: Alert oriented x3, HEENT: Atraumatic Neck: Supple, JVD not distended Respiratory: Clear to auscultation bilaterally, Normal air movement Cardiovascular: No edema, Normal pulses, Other (PPM ) Capillary refill: <2 Seconds Gastrointestinal: Normal bowel sounds, Soft and benign, Other (obese) Musculoskeletal: No clubbing, No swelling, Other (LUE/LLE weakness, hx old cva) Neurological: Normal speech, Sensation intact, Other (lethargic, responds to verbal, LAWRENCE.LLE hx old cva ) Review of Systems per HPI Physical Examination - Vital Signs Temperature: 97.2 F Blood Pressure: 115/62 Pulse: 80 Respirations: 15 Pulse Ox (%): 98 - Studies Laboratory Data (last 24 hrs) 04/17/23 04/17/23 04/17/23 13:23 13:23 13:23 WBC 11.50 H Hgb 15.3 Hct 45.2 Plt Count 149 L PT 39.1 H INR 3.69 APTT 47.6 H Sodium 137 Potassium 2.8 L BUN 23 H Creatinine 1.39 H Glucose 109 H Magnesium 1.8 Total Bilirubin 1.1 H AST 34 ALT 21 Alkaline Phosphatase 107 Assessment And Plan - Plan Assessment plan Acute on chronic heart failure unknown baseline A-fib RVR History of a permanent pacemaker, defibrillator TRND BNP, telemetry, Hold INR today recheck INR in the a.m. reports blood pressure at home 80 systolic. is at bedside is primary historian reports patient has had periods of hyper hypotension over the last couple months, she reports fall 1 week ago, no reported loss of consciousness, reported he caught himself denies head injury, reports patient has been more lethargic, she reports recent recent pain pump changed 1 week ago. Chest x-ray mild to moderate pulmonary edema Cardiology consult-symptoms likely secondary to dehydration symptoms improved with IV fluids, Resume blood pressure medications once blood pressure is stabilized Lethargy likely secondary to insomnia, noncompliant with CPAP Neurology consulted CT of the head negative for acute cva, CTA of the neck IMPRESSION: Mild hard plaquing in both carotid bulbs, slightly greater on the left, without significant carotid stenosis seen. Fall precaution Leukocytosis unknown source improved leukocytosis WBCs 11.50, improved on Rocephin 7.7 no Will obtain UA Labile blood pressure Hypotension improving Telemetry, trend blood pressure, orthostatic vital sign Fall precautions 1 L of IV fluid Chronic anticoagulation warfarin Supratherapeutic INR Thrombocytopenia platelets 149->105 Patient is on Coumadin INR 3.69-3.43 DAILY INR History of a CVA left-sided weakness History of a TIA Ambulates with a rolling walker at baseline, reports fall 1 week ago, PT consult acute on chronic kidney injury unknown based improved BUN 23 creatinine 1.39,BUN 15, Cr 1.03 Avoid nephrotoxic medications, gentle IV fluid Hypokalemia potassium 2.8,trend elec replace prn improved 3.4 Obstructive sleep apnea Noncompliant with CPAP History COPD stable Nebulizers, as needed O2 2 L as needed keep sats greater than 90% CPAP at bedtime diabetes type 2 Accu-Cheks, sliding scale insulin History of gout hypertension hyperlipidemia Parkinson Chronic pain Side Resume appropriate home meds Patient has a pain pump morphine Full code DVT patient is on warfarin hold due to supratherapeutic INR Diet cardiac Disposition patient resides at home has rolling walker Discharge Plan: Home - Code Status/Comfort Care Code Status: Full Code Critical Care: Yes Time Spent Managing PTS Care (In Minutes): 55
[2023-04-18] MEDS ORDERED: D10W 125 ML IV PRN (07:44)
[2023-04-18] MEDS: INSULIN REGULAR (HUMAN) 100 UNIT/ML SQ SCH (11:30)
--- NOTE | 2023-04-18 16:44 | EKG ---
Test Date: 2023-04-17 Test Time: 13:24:26 Clam Shucking Machine Tender: STEPH MEASUREMENT RESULTS: Intervals: Rate: 80 ID: [id number] QRSD: 154 QT: 426 QTc: 491 [place]: P: 89 ID: [id number] QRS: -90 T: 84 INTERPRETIVE STATEMENTS: AV paced rhythm Left axis deviation Nonspecific intraventricular block Abnormal ECG Compared to ECG 04/05/2023 13:15:06 Ventricular premature complex(es) now present Short ID interval now present Left-axis deviation now present AV dual-paced complex(es) or rhythm no longer present Electronically Signed On 04-18-23 16:43:33 [employer]YING [employer] WORK[employer] by Taco Putnam
--- NOTE | 2023-04-18 17:18 | P.PN ---
Date of Service: 04/18/23 Patient be changed to inpatient admission. Patient is hypotensive on arrival and patient was very obtunded when he arrived. Patient is on numerous blood pressure medications for his cardiomyopathy. Will need to see if patient needs these blood pressure medications. Echocardiogram is pending. We have held off on his blood pressure medications today and his blood pressure is only at 130/80. I fear that if we restart these blood pressure medications when he is discharged home which include Entresto, Aldactone, Bumex, carvedilol that he would have an adverse outcome at discharge. Will going to reintroduce Bumex at a lower dose as well as Aldactone and a lower dose carvedilol. We have an echocardiogram that is still pending. If his ejection fraction is less than 30% then I will reintroduce Entresto but at a lower dose. Neurologically he is improved and his left side is a little stronger today. I am going to get phys ical therapy to work with him in the morning. As long as he is responding well to this treatment is possible that he may be able to go home tomorrow. If patient goes home and falls because his blood pressure drops and he suffers a significant fracture then his long-term prognosis will really be poor. Will change his observation stay to an inpatient hospitalization.
[2023-04-18] MEDS ORDERED: NYSTATIN OINT 15 GM TUBE TOP PRN (17:42)
[2023-04-18] MEDS: BUMETANIDE 1 MG TABLET PO SCH (17:51)
[2023-04-18] MEDS: POTASSIUM CL SA 10 MEQ TAB PO SCH (20:34)
[2023-04-18] MEDS: MEXILETINE HCL 200 MG PO SCH (20:34)
[2023-04-18] MEDS: GABAPENTIN 300 MG CAP PO SCH (20:34)
[2023-04-18] MEDS: SERTRALINE HCL 100 MG TAB PO SCH (20:34)
[2023-04-18] MEDS: ATORVASTATIN 40 MG TAB PO SCH (20:34)
[2023-04-18] MEDS: **PT MED**Carbidopa/Levodopa [Carbidopa-Levo 25-100 Mg Odt] Tab.Rapdis) PO SCH (20:35)
[2023-04-19] MEDS: BUMETANIDE 1 MG TABLET PO SCH (06:14)
[2023-04-19] MEDS: PANTOPRAZOLE 40MG TABLET PO SCH (06:15)
--- NOTE | 2023-04-19 07:17 | RAD REPORT ---
EXAM DESCRIPTION: RAD - Chest Single View - 04/19/2023 4:32 am CLINICAL HISTORY: pneumonia COMPARISON: Chest Single View dated 04/17/2023; Chest Single View dated 04/05/2023; Chest Single View d ated 02/26/2023; Chest Single View dated 12/17/2022 FINDINGS: Lines: Pacemaker/ICD. Lungs: Similar diffuse prominence of the pulmonary interstitium and central pulmonary vasculature. Pleural: No significant pleural effusions or pneumothorax. Cardiac: Similar size and configuration . Mediastinum: Within normal limits. Bones: No acute fractures. Other: None IMPRESSION: Similar aeration compared with 04/17/2023 with findings that could indicate pulmonary ed samantha/congestive heart failure.
[2023-04-19 08:07] LABS: Hematocrit 44.6 % (39.6-49.0); Lymphocytes % 26.1 % (15.3-44.8); MCV 96.6 fL (80-100); Platelets 118 thou/uL (152-406); RBC Red Blood Cell Count 4.61 M/uL (4.33-5.43)
--- NOTE | 2023-04-19 08:07 | P.PN ---
Subjective Date of Service: 04/19/23 Chief Complaint: Hypotension at bedside, no overnight events, ambulated with therapy, blood pressure has been stable with 1 L of fluids - Physical Exam General: Alert oriented x3, HEENT: Atraumatic Neck: Supple, JVD not distended Respiratory: Clear to auscultation bilaterally, Normal air movement Cardiovascular: No edema, Normal pulses, Other (PPM ) Capillary refill: <2 Seconds Gastrointestinal: Normal bowel sounds, Soft and benign, Other (obese) Musculoskeletal: No clubbing, No swelling, Other (LUE/LLE weakness, hx old cva) Neurological: Normal speech, Sensation intact, Other (lethargic, responds to verbal, LAWRENCE.LLE hx old cva ) Review of Systems per HPI Physical Examination - Vital Signs Temperature: 97.8 F Blood Pressure: 135/62 Pulse: 83 Respirations: 18 Pulse Ox (%): 97 Assessment And Plan - Plan Assessment plan Acute on chronic heart failure unknown baseline Pulmonary edema A-fib RVR History of a permanent pacemaker, defibrillator TRND BNP, telemetry, Hold INR today recheck INR in the a.m. reports blood pressure at home 80 systolic. is at bedside is primary historian reports patient has had periods of hyper hypotension over the last couple months, she reports fall 1 week ago, no reported loss of consciousness, reported he caught himself denies head injury, reports patient has been more lethargic, she reports recent recent pain pump changed 1 week ago. Chest x-ray mild to moderate pulmonary edema Cardiology consult-symptoms likely secondary to dehydration symptoms improved with IV fluids, Resume blood pressure medications once blood pressure is stabilized 2-8 chest x-ray IMPRESSION: Similar aeration compared with 04/17/2023 with findings that could indicate pulmonary edema/congestive heart failure Lethargy likely secondary to insomnia, noncompliant with CPAP Neurology consulted CT of the head negative for acute cva, CTA of the neck IMPRESSION: Mild hard plaquing in both carotid bulbs, slightly greater on the left, without significant carotid stenosis seen. Fall precaution Leukocytosis unknown source improved leukocytosis WBCs 11.50, improved on Rocephin 7.7 no Will obtain UA Labile blood pressure Hypotension improving Telemetry, trend blood pressure, orthostatic vital sign Fall precautions Orthostatic vital signs with physical therapy 1 L of IV fluid Adjustment of blood pressure medications to prevent hypotension TSH, free T4 ordered Chronic anticoagulation warfarin Supratherapeutic INR Thrombocytopenia platelets 149->105 Patient is on Coumadin INR 3.69-3.43 DAILY INR History of a CVA left-sided weakness History of a TIA Ambulates with a rolling walker at baseline, reports fall 1 week ago, PT consult acute on chronic kidney injury unknown based improved BUN 23 creatinine 1.39,BUN 15, Cr 1.03 Avoid nephrotoxic medications, gentle IV fluid Hypokalemia potassium 2.8,trend elec replace prn improved 3.4 Obstructive sleep apnea Noncompliant with CPAP History COPD stable Nebulizers, as needed O2 2 L as needed keep sats greater than 90% CPAP at bedtime diabetes type 2 Accu-Cheks, sliding scale insulin History of gout hypertension hyperlipidemia Parkinson Chronic pain Side Resume appropriate home meds Patient has a pain pump morphine Full code DVT patient is on warfarin hold due to supratherapeutic INR Diet cardiac Disposition patient resides at home has rolling walker Discharge Plan: Home - Code Status/Comfort Care Code Status: Full Code Critical Care: No Time Spent Managing PTS Care (In Minutes): 35
[2023-04-19 08:12] LABS: Protime INR 1.95
[2023-04-19] MEDS: **PT MED**Dapagliflozin Propanediol [Farxiga] 10 MG Tablet) PO SCH (09:00)
[2023-04-19] MEDS: SPIRONOLACTONE 25 MG TABLET PO SCH (09:54)
[2023-04-19] MEDS: TRIAMCINOLONE 0.1% CREAM 15GM TOP SCH (09:54)
[2023-04-19] MEDS: allopurinoL 300 MG TAB PO SCH (09:55)
[2023-04-19] MEDS: carvediloL 3.125 MG TAB PO ONE (09:55)
[2023-04-19] MEDS: BUPROPION HCL XL 150 MG TAB PO SCH (09:55)
[2023-04-19] MEDS: SACUBITRIL/VALSARTAN 24/26 MG TAB PO SCH (09:55)
[2023-04-19] MEDS: ACETAMINOPHEN 500 MG TAB PO PRN (09:56)
[2023-04-19 10:11] LABS: Albumin 3.1 g/dL (3.4-5.0); Bilirubin Total 1.4 mg/dL (0.2-1.0); Magnesium 1.8 mg/dL (1.6-2.4); Potassium 3.2 mEq/L (3.5-5.1); Protein, Total 6.8 g/dL (6.4-8.2); Thyroid Stimulating Hormone 3.54 uIU/mL (0.358-3.740)
[2023-04-19 10:41] VITALS: BP 121/68; TEMP 97.5; O2SAT 96
--- NOTE | 2023-04-19 10:44 | P.DS ---
Admission Date: 04/18/23 Discharge Date: 04/19/23 Disposition: ROUTINE DISCHARGE Discharge Condition: GOOD Reason for Admission: Hypotension Brief History of Present Illness: 72-year-old male with a past medical history of CVA, TIA left-sided weakness, COPD congestive heart failure A-fib chronic anticoagulation warfarin, pacemaker with defibrillator, diabetes type 2 gout, hypertension, hyperlipidemia, Parkinson, chronic pain with the morphine pain pump, due to sciatica presents to the emergency room with hypotension. reports blood pressure at home 80 systolic. is at bedside is primary historian reports patient has had periods of hyper hypotension over the last couple months, she reports fall 1 week ago, no reported loss of consciousness, reported he caught himself denies head injury, reports patient has been more lethargic, she reports recent recent pain pump changed 1 week ago. She reports dose has not changed. Patient reports history of obstructive sleep apnea with CPAP reports recent sinus infection/flu patient has not been using CPAP for the last couple weeks. Reports not sleeping at night. No reported chest pain, nausea vomiting diarrhea, edema. Plan to admit for acute on chronic heart failure labile hypotension, generalized weakness, supra therapeutic INR chronic anticoagulation, dehydration, hypokalemia laboratory evaluation potassium 2.8 acute on chronic kidney injury BUN 23 creatinine 1.39, leukocytosis WBCs 11.50, CT of the head negative for acute cva, CTA of the neck IMPRESSION: Mild hard plaquing in both carotid bulbs, slightly greater on the left, without significant carotid stenosis seen. Chest x-ray mild to moderate pulmonary edema Physical Examination - Physical Exam General: Oriented x3, HEENT: Atraumatic Neck: Supple, JVD not distended Respiratory: Clear to auscultation bilaterally, Normal air movement Cardiovascular: No edema, Normal pulses, Other (PPM ) Capillary refill: <2 Seconds Gastrointestinal: Normal bowel sounds, Soft and benign, Other (obese) Musculoskeletal: No clubbing, No swelling, Other (LUE/LLE weakness, hx old cva) Neurological: Normal speech, Sensation intact, Other (LAWRENCE.LLE hx old cva ) Hospital Course: 72 year old male year-old male patient with a past medical history of CVA, TIA left-sided weakness, COPD congestive heart failure A-fib chronic anticoagulation warfarin, pacemaker with defibrillator, diabetes type 2 gout, hypertension, hyperlipidemia, Parkinson, chronic pain with the morphine pain pump, due to sciatica presented with hypotension. Was noted to have dehydration, hypotension, hypokalemia, elevated INR. Condition improved with IV fluids, adjusting blood pressure medications. Electrolyte replacement, He ambulated w [facility] physical therapy, strength improving, Patient tolerating diet, stable for discharge to home with follow-up appointment with primary care physician, cardiology. PROBLEM: Hypotension Dehydration Leukocytosis Weakness, Hypokalemia History of CVA with left-sided weakness Continue home medicines as previously prescribed Follow-up with cardiology after discharge Warfarin per primary care recommendations Fall precaution GOAL: Clear understanding of disease process INSTRUCTIONS: Physician Discharge Instructions: -DC IV and DC home -Follow-up with PCP in 1 to 2 weeks -Please call Dr. Carroll at [phone] if any questions regarding hospital stay -Please call nursing station at [phone] if any nursing or medication questions -Return to the emergency room if symptoms worsen Diet: ADA, low sodium Activity: Fall precautions DME: Date Ordered: Name of Company: [employer] Services Needed: None Date or Referral: IMMUNIZATION Influenza Vaccine Indicated: Influenza Vaccine Given: Date Given: Pneumonia Vaccine Indicated: Pneumonia Vaccine Given: Date Given Vital Signs/Physical Exam: Temp Pulse Resp BP Pulse Ox 97.5 F 80 18 121/68 97 04/19/23 10:28 04/19/23 10:28 04/19/23 10:28 04/19/23 10:28 04/19/23 08:06 Laboratory Data at Discharge: WBC 7.80 thou/uL (4.3-10.9) 04/19/23 07:21 Hgb 14.8 g/dL (13.6-17.9) D 04/19/23 07:21 Hct 44.6 % (39.6-49.0) 04/19/23 07:21 Plt Count 118 thou/uL (152-406) L 04/19/23 07:21 PT 21.0 SECONDS (9.5-12.5) H 04/19/23 07:21 INR 1.95 04/19/23 07:21 APTT 47.6 SECONDS (24.3-36.9) H 04/17/23 13:23 Sodium 139 mEq/L (136-145) 04/19/23 09:17 Potassium 3.2 mEq/L (3.5-5.1) L 04/19/23 09:17 BUN 13 mg/dL (7-18) 04/19/23 09:17 Creatinine 0.96 mg/dL (0.70-1.30) 04/19/23 09:17 Glucose 161 mg/dL (74-106) H 04/19/23 09:17 Magnesium 1.8 mg/dL (1.6-2.4) 04/19/23 09:17 Total Bilirubin 1.4 mg/dL (0.2-1.0) H 04/19/23 09:17 AST 32 U/L (15-37) 04/19/23 09:17 ALT 40 U/L (16-61) 04/19/23 09:17 Alkaline Phosphatase 97 U/L (45-117) 04/19/23 09:17 Home Medications: Allopurinol 300 mg PO DAILY 06/30/22 Atorvastatin Calcium 40 mg PO BEDTIME 06/30/22 Dapagliflozin Propanediol [Farxiga] 10 mg PO DAILY 06/30/22 Gabapentin 300 mg PO BID 06/30/22 Mexiletine HCl 200 mg PO TID 06/30/22 Omeprazole [Prilosec] 40 mg PO DAILY 06/30/22 Potassium Chloride 20 meq PO SEECOM 06/30/22 Sertraline [Zoloft*] 100 mg PO BID 06/30/22 Spironolactone 25 mg PO DAILY 06/30/22 Carbidopa/Levodopa [Carbidopa-Levo 25-100 mg Odt] 1 each PO BID 02/26/23 Dupilumab [Dupixent Pen] 300 mg SQ SEECOM 02/26/23 Nystatin [Nystop] 15 gm TP PRN PRN 02/26/23 Triamcinolone 0.1% Crm [Kenalog 0.1% Cream*] 454 gm TP DAILY 02/26/23 buPROPion HCL [Bupropion Xl] 150 mg PO DAILY 02/26/23 Apixaban [Eliquis *] 2.5 mg PO BID #60 04/19/23 Apixaban [Eliquis] 2.5 mg PO BID #60 tablet 04/19/23 Bumetanide [Bumex*] 1 mg PO BID 6AM 6PM #60 tab 04/19/23 Bumetanide [Bumex] 1 mg PO BIDAC #60 tab 04/19/23 Carvedilol [Coreg] 3.125 mg PO BID #60 tab 04/19/23 Sacubitril/Valsartan [Entresto 24 mg-26 mg Tablet] 0.5 tab PO BID tab 04/19/23 Sacubitril/Valsartan [Entresto 24 mg-26 mg Tablet] 0.5 tab PO BID #30 tab 04/19/23 New Medications: Bumetanide [Bumex*] 1 mg PO BID 6AM 6PM #60 tab Bumetanide [Bumex] 1 mg PO BIDAC #60 tab Carvedilol [Coreg] 3.125 mg PO BID #60 tab Apixaban [Eliquis *] 2.5 mg PO BID #60 Apixaban [Eliquis] 2.5 mg PO BID #60 tablet Sacubitril/Valsartan [Entresto 24 mg-26 mg Tablet] 0.5 tab PO BID #30 tab Physician Discharge Instructions: 72 year old male year-old male patient with a past medical history of CVA, TIA left-sided weakness, COPD congestive heart failure A-fib chronic anticoagulation warfarin, pacemaker with defibrillator, diabetes type 2 gout, hypertension, hyperlipidemia, Parkinson, chronic pain with the morphine pain pump, due to sciatica presented with hypotension. Was noted to have dehydration, hyp otension, hypokalemia, elevated INR. Condition improved with IV fluids, adjusting blood pressure medications. Electrolyte replacement, He ambulated with physical therapy, strength improving, Patient tolerating diet, stable for discharge to home with follow-up appointment with primary care physician, cardiology. PROBLEM: Hypotension Dehydration Leukocytosis Weakness, Hypokalemia History of CVA with left-sided weakness Continue home medicines as previously prescribed Follow-up with cardiology after discharge Warfarin per primary care recommendations Fall precaution Patient has a rolling walker at bedside GOAL: Clear understanding of disease process INSTRUCTIONS: Physician Discharge Instructions: -DC IV and DC home -Follow-up with PCP in 1 to 2 weeks -Please call Dr. Carroll at [phone] if any questions regarding hospital stay -Please call nursing station at [phone] if any nursing or medication questions -Return to the emergency room if symptoms worsen Diet: ADA, low sodium Activity: Fall precautions DME: Date Ordered: Name of Company: [employer] Services Needed: None Date or Referral: IMMUNIZATION Influenza Vaccine Indicated: Influenza Vaccine Given: Date Given: Pneumonia Vaccine Indicated: Pneumonia Vaccine Given: Date Given Diet: AHA Activity: Fall precautions Followup: Kylee Olson PAC [Primary Care Provider] - (Follow-up with cardiology in 1 to 2 weeks after discharge) Time spent managing pt's care (in minutes): 55
--- NOTE | 2023-04-19 10:49 | ECHO ---
HEIGHT: 6 ft 0 in WEIGHT: 347 lb 0 oz DATE OF STUDY: 04/18/[address]: Faraz Carroll MD 2-DIMENSIONAL: YES M.MODE: YES DOPPLER: YES COLOR FLOW: YES TDS: YES PORTABLE: YES DEFINITY: BUBBLE STUDY: DIAGNOSIS: HYPOTENSION CARDIAC HISTORY: CATHERIZATION: SURGERY: PROSTHETIC VALVE: PACEMAKER: YES MEASUREMENTS (cm) DIASTOLIC (NORMALS) SYSTOLIC (NORMALS) IVSd 1.4 (0.6-1.2) LA Diam 4.4 (1.9-4.0) LVEF 58% LVIDd 3.5 (3.5-5.7) LVIDs 2.5 (2.0-3.5) %FS 30% LVPWd 1.5 (0.6-1.2) Ao Diam 3.5 (2.0-3.7) 2 DIMENSIONAL ASSESSMENT: RIGHT ATRIUM: NOT WELL VISUALIZED LEFT ATRIUM: NOT WELL VISUALIZED RIGHT VENTRICLE: NORMAL LEFT VENTRICLE: NORAML TRICUSPID VALVE: TRACE TRICUSPID REGURGITATION MITRAL VALVE: NORMAL PULMONIC VALVE: NOT WELL VISUALIZED AORTIC VALVE: NORMAL PERICARDIAL EFFUSION: NONE AORTIC ROOT: NORMAL LEFT VENTRICULAR WALL MOTION: NORMAL LEFT VENTRICULAR SYSTOIC FUNCTION, EJECTION FRACTION 55-60%. MILD CONCENTRIC HYPERTROPHY. NORMAL LEFT VENTRICULAR DIASTOLIC FUNCTION. DOPPLER/COLOR FLOW: NORMAL COMMENTS: 1. POOR STUDY DUE TO BODY HABITUS. 2. NORMAL LEFT VENTRICULAR SYSTOLIC FUNCTION, EJECTION FRACTION 55-60%. NORMAL WALL MOTION. NORMAL DIASTOLIC FUNCTION. 3. MILD CONCENTRIC LEFT VENTRICULAR HYPERTROPHY 4. INFERIOR VENA CAVA NOT WELL VISUALIZED TECHNOLOGIST: JULIET GUAMAN
[2023-04-19] MEDS ORDERED: APIXABAN 2.5 MG TABLET PO SCH (12:00)
== END 2023-04-19 11:46 | disposition home health service (06) | DRG 291 ==
LOC: ER 12:51 → ERHOLD 15:14 → 3RD-ICU 16:01 → 2ND 04-18 17:39 → OBSVTOIN 04-18 18:55
PROVIDERS: ADMIT Hospitalist; ATTEND Hospitalist
PROC: 5A09457 Assistance with Respiratory Ventilation, 24-96 Consecutive Hours, Continuous Positive Airway Pressure (ICD-10-PCS; principal; 2023-04-18)
DX: I11.0 Hypertensive heart disease with heart failure (principal); I50.23 Acute on chronic systolic (congestive) heart failure; I48.20 Chronic atrial fibrillation, unspecified; I69.354 Hemiplegia and hemiparesis following cerebral infarction affecting left non-dominant side; N17.9 Acute kidney failure, unspecified; Z68.43 Body mass index [BMI] 50.0-59.9, adult; F11.20 Opioid dependence, uncomplicated; E66.01 Morbid (severe) obesity due to excess calories; M10.9 Gout, unspecified; E78.00 Pure hypercholesterolemia, unspecified; E11.9 Type 2 diabetes mellitus without complications; G47.00 Insomnia, unspecified; E87.6 Hypokalemia; E86.0 Dehydration; I42.9 Cardiomyopathy, unspecified; G89.29 Other chronic pain; M54.30 Sciatica, unspecified side; G20.A1 Parkinson's disease without dyskinesia, without mention of fluctuations; G47.33 Obstructive sleep apnea (adult) (pediatric); D72.829 Elevated white blood cell count, unspecified; I95.9 Hypotension, unspecified; J44.9 Chronic obstructive pulmonary disease, unspecified; Z88.0 Allergy status to penicillin; Z79.01 Long term (current) use of anticoagulants; Z90.49 Acquired absence of other specified parts of digestive tract; Z99.89 Dependence on other enabling machines and devices; Z95.810 Presence of automatic (implantable) cardiac defibrillator; Z91.199 Patient's noncompliance with other medical treatment and regimen due to unspecified reason; Z79.899 Other long term (current) drug therapy
CPT/HCPCS: 36415; 70450; 70496; 70498; 71045; 80048; 80053; 80076; 81003; 82947; 83735; 83880; 84439; 84443; 84484; 85025; 85610; 85730; 93005; 93306; 97110; 97116; 97161; 97530; G0378; J3480; J7030; J7040; Q9967

== ENCOUNTER → 2023-05-07 | Emergency (ER) | payer MEDICARE ==
[~2023-05-07] MED LIST changes: +NA CHLORIDE 0.9% 1,000 ML ONE; -NA CHLORIDE 0.9% 500 ML ONE
[2023-05-07 17:26] LABS: Absolute Lymphocytes (CBC) 2.2 K/uL (0.7-4.9); Hematocrit 42.3 % (39.6-49.0); Lymphocytes % 20.7 % (15.3-44.8); MCV 95.7 fL (80-100); MPV 8.4 fL (7.6-11.3); Platelets 166 thou/uL (152-406); RBC Red Blood Cell Count 4.42 M/uL (4.33-5.43)
[2023-05-07 17:47] LABS: Albumin 3.2 g/dL (3.4-5.0); Bilirubin Total 1.2 mg/dL (0.2-1.0); Protein, Total 7.2 g/dL (6.4-8.2)
--- NOTE | 2023-05-07 18:51 | RAD REPORT ---
EXAM DESCRIPTION: CT - Chest Abdomen Pelvis W Cont - 05/07/2023 6:19 pm CLINICAL HISTORY: Chest and abdominal pain status post fall COMPARISON: 2022 TECHNIQUE: Computed axial tomography of the chest, abdomen and pelvis was obtained. 100 cc Isovue-30 0 was administered intravenously. Oral contrast was not requested. This limits evaluation of bowel. All CT scans are performed using dose optimization technique as appropriate and may include automated exposure control or mA/KV adjustment according to patient size. FINDINGS: A pleural effusion is not present. A pulmonary contusion is not seen. A mediastinal hematoma is not present. The liver, spleen, pancreas, adrenals kidneys and bladder do not demonstrate a traumatic injury Cholecystectomy. Postsurgical changes lumbar spine IMPRESSION: No acute traumatic injury involving the chest, abdomen nor pelvis is seen.
--- NOTE | 2023-05-07 18:58 | EDPHYS ---
Physician Documentation [facility] Name: Jayson Joe Sr Age: 72 yrs Sex: Male : 1950 Arrival Date: 05/07/2023 Time: 16:21 Bed [id number] Private MD: ED Physician Jared Escobar HPI: 05/07 18:38 This 72 yrs old Male presents to ER via Wheelchair with complaints of Fall colin Injury. 18:38 Details of fall: The patient fell from an upright position, while walking. Onset: The colin symptoms/episode began/occurred 3 day(s) ago. Associated injuries: The patient sustained injury to the chest, contusion, pain with breathing, pain with movement, injury to the abdomen, contusion. Severity of symptoms: At their worst the symptoms were moderate, in the emergency department the symptoms are unchanged. The patient has not experienced similar symptoms in the past. Historical: - Allergies: 16:51 PENICILLINS; ap3 - PMHx: 16:51 Cerebrovascular accident; Chronic obstructive lung disease; Congestive heart failure; ap3 diabetes mellitus; Gout; High Cholesterol; Hypertensive disorder; pacemaker/defibrilator; pain pump; Parkinson's disease; Stroke/TIA; - PSHx: 16:51 Appendectomy; back; Cholecystectomy; dental; foot; neck; ap3 - Immunization history:: Client reports receiving the 2nd dose of the Covid vaccine, Flu vaccine is not up to date. - Social history:: Smoking status: Patient denies any tobacco usage or history of. ROS: 18:39 Constitutional: Negative for fever, chills, and weight loss, Eyes: Negative for injury, colin pain, redness, and discharge, ENT: Negative for injury, pain, and discharge, Neck: Negative for injury, pain, and swelling, Cardiovascular: Negative for chest pain, palpitations, and edema, Back: Negative for injury and pain, : Negative for injury, bleeding, discharge, and swelling, MS/Extremity: Negative for injury and deformity, Skin: Negative for injury, rash, and discoloration, Neuro: Negative for headache, weakness, numbness, tingling, and seizure, Psych: Negative for depression, anxiety, suicide ideation, homicidal ideation, and hallucinations, Allergy/Immunology: Negative for hives, rash, and allergies, Endocrine: Negative for neck swelling, polydipsia, polyuria, polyphagia, and marked weight changes, Hematologic/Lymphatic: Negative for swollen nodes, abnormal bleeding, and unusual bruising, 18:39 Respiratory: Positive for pleurisy, of the left lateral anterior chest and left lateral posterior chest, 18:39 Abdomen/GI: Positive for abdominal pain, of the anterior aspect of left lateral abdomen, posterior aspect of left lateral abdomen, left upper quadrant and left lower quadrant, Exam: 18:39 Constitutional: This is a well developed, well nourished patient who is awake, alert, colin and in no acute distress. Head/Face: Normocephalic, atraumatic. Eyes: Pupils equal round and reactive to light, extra-ocular motions intact. Lids and lashes normal. Conjunctiva and sclera are non-icteric and not injected. Cornea within normal limits. Periorbital areas with no swelling, redness, or edema. ENT: Nares patent. No nasal discharge, no septal abnormalities noted. Tympanic membranes are normal and external auditory canals are clear. Oropharynx with no redness, swelling, or masses, exudates, or evidence of obstruction, uvula midline. Mucous membranes moist. Neck: Trachea midline, no thyromegaly or masses palpated, and no cervical lymphadenopathy. Supple, full range of motion without nuchal rigidity, or vertebral point tenderness. No Meningismus. Cardiovascular: Regular rate and rhythm with a normal S1 and S2. No gallops, murmurs, or rubs. Normal PMI, no JVD. No pulse deficits. Respiratory: Lungs have equal breath sounds bilaterally, clear to auscultation and percussion. No rales, rhonchi or wheezes noted. No increased work of breathing, no retractions or nasal flaring. Back: No spinal tenderness. No costovertebral tenderness. Full range of motion. Male : Normal genitalia with no discharge or lesions. Skin: Warm, dry with normal turgor. Normal color with no rashes, no lesions, and no evidence of cellulitis. MS/ Extremity: Pulses equal, no cyanosis. Neurovascular intact. Full, normal range of motion. Neuro: Awake and alert, GCS 15, oriented to person, place, time, and situation. Cranial nerves II-XII grossly intact. Motor strength 5/5 in all extremities. Sensory grossly intact. Cerebellar exam normal. Normal gait. Psych: Awake, alert, with orientation to person, place and time. Behavior, mood, and affect are within normal limits. 18:39 Chest/axilla: Inspection: normal, no acute changes, Palpation: tenderness, that is moderate, of the left lateral anterior chest and left lateral posterior chest, Axilla: are normal, Lymph nodes: lymphadenopathy is not appreciated, Vital Signs: 16:50 BP 123 / 72; Pulse 80; Resp 17; Temp 98.1; Pulse Ox 91% on R/A; Weight 156.94 kg; ap3 Height 6 ft. 0 in. ; Pain 4/10; 18:25 BP 108 / 65; Pulse 80; Resp 15; Pulse Ox 95% on R/A; ko1 19:00 BP 101 / 48; Pulse 88; Resp 18; Pulse Ox 92% ; Pain 0/10; jj7 19:32 BP 99 / 57; Pulse 80; Resp 17; Pulse Ox 92% ; Pain 0/10; jj7 16:50 Body Mass Index 46.93 (156.94 kg, 182.88 cm) ap3 16:50 Pain Scale: Adult ap3 19:00 Pain Scale: Adult jj7 19:32 Pain Scale: Adult jj7 MDM: 16:27 Patient medically screened. colin 18:41 Differential diagnosis: contusion, fracture, laceration, multiple trauma, sprain, colin strain. Differential diagnosis: non-specific abd pain, urinary tract infection, Blunt Chest Trauma Chest Wall Contusion Chest Wall Injury Pleural Effusion Pneumomediastinum Pneumopericardium Pneumothorax Pulmonary Contusion Rib Fracture Ruptured Hemidiaphragm. Data reviewed: vital signs, nurses notes, lab test result(s), radiologic studies, CT scan. Consideration of Admission/Observation Escalation of care including admission/observation considered. I considered the following discharge prescriptions or medication management in the emergency department Medications were administered in the Emergency Department. See MAR. Independent interpretation of the following test(s) in the Emergency Department CT Scan: My interpretation is CT CHEST/ABD/PELVIS. Test considered but Not performed: CT: NO CT HEAD / C SPINE. Historians other than the Patient: Spouse/Significant Other: WELL INFORMED. Care significantly affected by the following chronic conditions: Diabetes, Hypertension, Congestive Heart Failure, Chronic Obstructive Pulmonary Disease, Obesity. Counseling: I had a detailed discussion with the patient and/or guardian regarding the historical points, exam findings, and any diagnostic results supporting the discharge/admit diagnosis, lab results, radiology results, the need for outpatient follow up, for definitive care, a family practitioner, a general surgeon. 05/07 17:02 Order name: CBC with Diff; Complete Time: 18:37 [facility] 05/07 17:02 Order name: Comprehensive Metabolic Panel; Complete Time: 18:37 [facility] 05/07 17:02 Order name: Lipase; Complete Time: 18:37 [facility] 05/07 17:02 Order name: CT Chest, Abdomen, Pelvis - W/Contrast; Complete Time: 18:57 [facility] 05/07 17:02 Order name: INCENTIVE SPIROMETRY colin Administered Medications: 17:25 Drug: NS 0.9% IV 1000 ml IV at 1 bolus Per protocol; 1000 mL bolus Route: IV; Rate: 1 ko1 bolus; Site: left forearm; 17:27 Drug: Ondansetron IVP 4 mg IVP once; over 2 minutes Route: IVP; Site: left forearm; ko1 19:15 Follow up: Response: Nausea is decreased jj7 17:32 Drug: morphine IVP or IV 4 mg IVP once over 4 mins Route: IVP; Infused Over: 4 mins; ko1 Site: left forearm; 19:15 Follow up: Response: Pain is decreased jj7 18:49 Drug: Potassium PO Effervescent Tablet 50 mEq PO once; dissolve in 4 ounces of water or ko1 juice Route: PO; 19:15 Follow up: Response: No adverse reaction jj7 19:30 Drug: Potassium PO Effervescent Tablet 50 mEq PO once; dissolve in 4 ounces of water or jj7 juice GIVE JUST PRIOR TO DC Route: PO; 19:32 Follow up: Response: No adverse reaction jj7 Disposition Summary: 05/07/23 18:57 Discharge Ordered Notes: Location: Home colin Problem: new colin Symptoms: have improved colin Condition: Stable colin Diagnosis - Fall on same level, unspecified colin - Contusion of abdominal wall colin - Strain of muscle and tendon of back wall of thorax colin - Strain of muscle and tendon of front wall of thorax colin - Chest pain on breathing colin - Chest pain, unspecified - CONTUSION colin - Hypokalemia colin - Obesity, unspecified colin Followup: colin - With: Private Physician - When: 2 - 3 days - Reason: Recheck today's complaints, Continuance of care, Re-evaluation by your physician Followup: colin - With: Damon Valderrama MD - When: 2 - 3 days - Reason: Recheck today's complaints, Re-evaluation by your physician Discharge Instructions: - Discharge Summary Sheet colin - Nonspecific Chest Pain, Adult colin - Chest Wall Pain [facility] - Potassium Content of Foods [facility] - Obesity, Adult [facility] - How to Use an Incentive Spirometer colin - Chest Wall Pain, [id number] colin - Nonspecific Chest Pain, Adult, [id number] colin - Hypokalemia colin - Obesity, Adult, [id number] [facility] Forms: - Medication Reconciliation Form [facility] - Thank You Letter [facility] - Antibiotic Education [facility] - Prescription Opioid Use [facility] - Patient Portal Instructions [facility] - Leadership Thank You Letter [facility] Prescriptions: - acetaminophen-codeine 300-30 mg Oral tablet - take 2 tablet ORAL route every 6 hours; 20 tablet; Refills: 0, Product [facility] Selection Permitted - Ibuprofen 600 mg Oral tablet - take 1 tablet ORAL route every 6 hours As needed take with food; 20 tablet; [facility] Refills: 0, Product Selection Permitted - Potassium Chloride 20 meq Oral Packet - take 1 packet ORAL route once daily 1 packet in 6 (six) ounces of water or colin juice; Take after meal; 14 packet; Refills: 0, Product Selection Permitted Signatures: Dispatcher [employer] Jared Salazar MD MD cha Prokisch, Amanda RN RN ap3 Shanique Frederick RN RN ko1 Marvin Mccain RN RN jj7
--- NOTE | 2023-05-07 18:58 | ER ---
Nurse's Notes [facility] Name: Jayson Joe Sr Age: 72 yrs Sex: Male : 1950 Arrival Date: 05/07/2023 Time: 16:21 Bed [id number] Private MD: Diagnosis: Fall on same level, unspecified;Contusion of abdominal wall;Strain of muscle and tendon of back wall of thorax;Strain of muscle and tendon of front wall of thorax;Chest pain on breathing;Chest pain, unspecified-CONTUSION;Hypokalemia;Obesity, unspecified Presentation: 05/07 16:49 Chief complaint: Patient states: he fell Sunday05/05/2023. patient denies hitting his ap3 head, but reports he is on blood thinner (warfarin). Patient comes to the ED today complaining of pain to his left shoulder and left side. patient rates his pain as a 4/10 on the pain scale at this time. 16:49 Acuity: LEO 3 ap3 16:49 Method Of Arrival: Wheelchair ap3 16:50 Coronavirus screen: At this time, the client does not indicate any symptoms associated ap3 with coronavirus-19. Ebola Screen: No symptoms or risks identified at this time. Initial Sepsis Screen: Does the patient meet any 2 criteria? No. Patient's initial sepsis screen is negative. Does the patient have a suspected source of infection? No. Patient's initial sepsis screen is negative. Risk Assessment: Do you want to hurt yourself or someone else? Patient reports no desire to harm self or others. Onset of symptoms was May 05, 2023. Triage Assessment: 16:52 General: Appears in no apparent distress. Behavior is calm, cooperative, appropriate ap3 for age. Pain: Complains of pain in left shoulder, left rib area, left side Pain currently is 4 out of 10 on a pain scale. at worst was 10 out of 10 on a pain scale. Pain began gradually. Neuro: Level of Consciousness is awake, alert, obeys commands, Oriented to person, place, time, situation, Appropriate for age. Cardiovascular: Patient's skin is warm and dry. Respiratory: Airway is patent Respiratory effort is even, unlabored, Respiratory pattern is regular, symmetrical. Historical: - Allergies: 16:51 PENICILLINS; ap3 - PMHx: 16:51 Cerebrovascular accident; Chronic obstructive lung disease; Congestive heart failure; ap3 diabetes mellitus; Gout; High Cholesterol; Hypertensive disorder; pacemaker/defibrilator; pain pump; Parkinson's disease; Stroke/TIA; - PSHx: 16:51 Appendectomy; back; Cholecystectomy; dental; foot; neck; ap3 - Immunization history:: Client reports receiving the 2nd dose of the Covid vaccine, Flu vaccine is not up to date. - Social history:: Smoking status: Patient denies any tobacco usage or history of. Screenin:52 Abuse screen: Denies threats or abuse. Nutritional screening: No deficits noted. ap3 Tuberculosis screening: No symptoms or risk factors identified. 18:25 [facility] ED Fall Risk Assessment (Adult) History of falling in the last 3 months, ko1 including since admission Yes- single mechanical fall (1 pt) Confusion or Disorientation No (0 pts) Intoxicated or Sedated No (0 pts) Impaired Gait Yes (1 pt) Mobility Assist Device Used Yes (1 pt) Altered Elimination No (0 pt) Score/Fall Risk Level 3 or more points = High Risk Oriented to surroundings, Maintained a safe environment, Educated pt \T\ family on fall prevention, incl call for assistance when getting out of bed, Assessed \T\ reinforced patient's understanding of fall precautions, Provided non-skid footwear, Hourly rounding (assess needs \T\ fall precautionary measures) done, Used ambulatory aids as needed (educated on \T\ assisted with), Used gait belt as appropriate Implemented a Fall Risk Plan of Care, Apply high fall risk patient identification: yellow non skid footwear/ fall signage. Assessment: 18:25 General: Appears in no apparent distress. uncomfortable, Behavior is calm, cooperative, ko1 appropriate for age. Pain: Complains of pain in all over. Neuro: No deficits noted. Cardiovascular: No deficits noted. Respiratory: No deficits noted. GI: No deficits noted. : No deficits noted. EENT: No deficits noted. Derm: Bruising that is different levels of healing and scattered mainly on upper ext. Musculoskeletal: Reports generalized weakness, uses walker. 19:00 Reassessment: Patient is alert, oriented x 3, equal unlabored respirations, skin jj7 warm/dry/pink. ASSUMED CARE OF PT. PT LYING IN BED. VERY FRIENDLY AND IN A GOOD MOOD. VS STABLE .CALL KNIGHT IN REACH. NO NEEDS AT THIS TIME. General: Appears in no apparent distress. comfortable, Behavior is calm, cooperative, appropriate for age. Vital Signs: 16:50 BP 123 / 72; Pulse 80; Resp 17; Temp 98.1; Pulse Ox 91% on R/A; Weight 156.94 kg; ap3 Height 6 ft. 0 in. ; Pain 4/10; 18:25 BP 108 / 65; Pulse 80; Resp 15; Pulse Ox 95% on R/A; ko1 19:00 BP 101 / 48; Pulse 88; Resp 18; Pulse Ox 92% ; Pain 0/10; jj7 19:32 BP 99 / 57; Pulse 80; Resp 17; Pulse Ox 92% ; Pain 0/10; jj7 16:50 Body Mass Index 46.93 (156.94 kg, 182.88 cm) ap3 16:50 Pain Scale: Adult ap3 19:00 Pain Scale: Adult jj7 19:32 Pain Scale: Adult jj7 ED Course: 16:24 Patient arrived in ED. im 16:27 Jared Escobar MD is Attending Physician. colin 16:50 Triage completed. ap3 16:53 Arm band placed on right wrist. ap3 16:58 Pulse ox on. NIBP on. ap3 16:58 Patient has correct armband on for positive identification. Bed in low position. Call ap3 light in reach. Side rails up X 1. Adult w/ patient. 17:02 Shanique Frederick, RN is Primary Nurse. ko1 17:05 Radiology exam delayed due to IV insertion attempt and/or patient not having nj appropriate IV at this time. 17:05 Radiology exam delayed due to lab results not completed at this time. (BUN/Creatinine). nj 17:15 Inserted saline lock: 22 gauge in left forearm, using aseptic technique. Blood ko1 collected. 17:20 Lipase Sent. ko1 17:20 Comprehensive Metabolic Panel Sent. ko1 17:20 CBC with Diff Sent. ko1 17:20 INCENTIVE SPIROMETRY Sent. ko1 17:21 Radiology exam delayed due to lab results not completed at this time. (BUN/Creatinine). jj2 18:20 CT Chest, Abdomen, Pelvis - W/Contrast In Process Unspecified. EDMS 18:25 Provided Education on: na. Door closed. Noise minimized. Lights dimmed. Warm blanket ko1 given. Pillow given. 18:25 No provider procedures requiring assistance completed. ko1 18:57 Damon Valderrama MD is Referral Physician. [facility] 19:32 IV discontinued, intact, bleeding controlled, No redness/swelling at site. Pressure jj7 dressing applied. Administered Medications: 17:25 Drug: NS 0.9% IV 1000 ml IV at 1 bolus Per protocol; 1000 mL bolus Route: IV; Rate: 1 ko1 bolus; Site: left forearm; 17:27 Drug: Ondansetron IVP 4 mg IVP once; over 2 minutes Route: IVP; Site: left forearm; ko1 19:15 Follow up: Response: Nausea is decreased jj7 17:32 Drug: morphine IVP or IV 4 mg IVP once over 4 mins Route: IVP; Infused Over: 4 mins; ko1 Site: left forearm; 19:15 Follow up: Response: Pain is decreased jj7 18:49 Drug: Potassium PO Effervescent Tablet 50 mEq PO once; dissolve in 4 ounces of water or ko1 juice Route: PO; 19:15 Follow up: Response: No adverse reaction jj7 19:30 Drug: Potassium PO Effervescent Tablet 50 mEq PO once; dissolve in 4 ounces of water or jj7 juice GIVE JUST PRIOR TO DC Route: PO; 19:32 Follow up: Response: No adverse reaction jj7 Medication: 18:25 VIS not applicable for this client. ko1 Outcome: 18:57 Discharge ordered by . [facility] 19:32 Discharged to home ambulatory, with significant other, WALKER jj7 19:32 Condition: improved 19:32 Discharge instructions given to patient, significant other, Instructed on discharge instructions, follow up and referral plans. medication usage, Demonstrated understanding of instructions, follow-up care, medications, Prescriptions given X 3, 20:17 Patient left the ED. jj7 Signatures: Dispatcher [employer] EDMS Jared Escobar MD MD cha Jaramillo, Justin jj2 Jordan, Nathan nj Prokisch, Amanda RN RN ap3 Shanique Frederick RN RN ko1 Marvin Mccain RN RN jj7 Krupa Ansari
[2023-05-07 21:03] VITALS: BP 99/57; TEMP 98.1; O2SAT 92
== END ==
LOC: ER 16:21
DX: S29.011A Strain of muscle and tendon of front wall of thorax, initial encounter (principal); S29.012A Strain of muscle and tendon of back wall of thorax, initial encounter; S30.1XXA Contusion of abdominal wall, initial encounter; W18.30XA Fall on same level, unspecified, initial encounter; E87.6 Hypokalemia; E66.9 Obesity, unspecified; Z68.42 Body mass index [BMI] 45.0-49.9, adult; I10 Essential (primary) hypertension; I50.9 Heart failure, unspecified; Z95.810 Presence of automatic (implantable) cardiac defibrillator; Z86.73 Personal history of transient ischemic attack (TIA), and cerebral infarction without residual deficits; Z88.0 Allergy status to penicillin
CPT/HCPCS: 85025; 36415; 83690; 80053; 71260; 74177; 96375; 96374; 99284; Q9967; J2405; J7030

== ENCOUNTER 2023-07-18 03:43 | Observation (INO) | payer MEDICARE ==
[2023-07-18] MEDS ORDERED: WATER FOR INJ,STERILE 10 ML ONE (03:47)
[2023-07-18] MEDS ORDERED: ZIPRASIDONE MESYLA 20 MG/VIAL IM ONE (03:47)
[2023-07-18] MEDS ORDERED: ONDANSETRON 4 MG/2 ML VIAL ONE (04:25)
[2023-07-18] MEDS ORDERED: NA CHLORIDE 0.9% 1,000 ML ONE (04:26)
[2023-07-18] MEDS ORDERED: MORPHINE 4 MG/ML SYR ONE ×2 (04:26→05:59)
[2023-07-18 04:50] LABS: Absolute Basophils 0.1 K/uL (0-0.5); Absolute Lymphocytes (CBC) 1.4 K/uL (0.7-4.9); Absolute Monocytes 0.5 K/uL (0.1-1.3); Absolute Neutrophil 7.2 K/uL (1.8-8.0); Basophils % 0.7 % (0-1.3); Eosinophils % 0.2 % (0-4.4); Hematocrit 43.3 % (39.6-49.0); Hemoglobin 14.2 g/dL (13.6-17.9); Lymphocytes % 14.9 % (15.3-44.8); MCH 31.2 pg (27.0-35.0); MCHC 32.8 g/dL (32.0-36.0); MCV 95.1 fL (80-100); MPV 8.7 fL (7.6-11.3); Monocytes % 5.3 % (3.3-12.3); Neutrophils % 78.9 % (41.7-73.7); Platelets 138 thou/uL (152-406); RBC Red Blood Cell Count 4.55 M/uL (4.33-5.43); Red Cell Distribution Width 14.2 % (12.1-15.2)
[2023-07-18 04:51] LABS: PT Prothrombin Time 23.4 SECONDS (9.5-12.5); Protime INR 2.18
[2023-07-18 05:22] LABS: Albumin 3.5 g/dL (3.4-5.0); Anion Gap 9.5 mEq/L (5.0-15.0); Bilirubin Direct 0.4 mg/dL (0-0.2); Bilirubin Total 1.4 mg/dL (0.2-1.0); C-Reactive Protein 12.1 mg/L (<3.00); Globulin 3.6 g/dL (2.3-3.5); Magnesium 2.1 mg/dL (1.6-2.4); Potassium 3.5 mEq/L (3.5-5.1); Protein, Total 7.1 g/dL (6.4-8.2); Troponin High Sensitivity 8.1 pg/mL (<58.9)
--- NOTE | 2023-07-18 05:54 | ER ---
Nurse's Notes [facility] Name: Jayson Joe Sr Age: 72 yrs Sex: Male : 1950 Arrival Date: 07/18/2023 Time: 03:43 Bed 8 Private MD: Diagnosis: Opioid dependence with withdrawal;Acute opiate withdrawal, restlessness with agitation, Presentation: 07/17 04:01 Chief complaint: Patient states: restless legs, generalized pain, vomited phlegm EMS vc1 states: Leg cramps. Coronavirus screen: Vaccine status: Patient reports receiving the 2nd dose of the covid vaccine. Client denies travel out of the [place] in the last 14 days. At this time, the client does not indicate any symptoms associated with coronavirus-19. Ebola Screen: Patient negative for fever greater than or equal to 101.5 degrees Fahrenheit, and additional compatible Ebola Virus Disease symptoms Patient denies exposure to infectious person. Patient denies travel to an Ebola-affected area in the 21 days before illness onset. No symptoms or risks identified at this time. Initial Sepsis Screen: Does the patient meet any 2 criteria? No. Patient's initial sepsis screen is negative. Does the patient have a suspected source of infection? No. Patient's initial sepsis screen is negative. Risk Assessment: Do you want to hurt yourself or someone else? Patient reports no desire to harm self or others. Onset of symptoms was July 17, 2023 at 22:00. 04:01 Method Of Arrival: EMS: [facility] vc1 04:01 Acuity: LEO 3 vc1 Triage Assessment: 04:05 General: Appears distressed, uncomfortable, obese, unkempt, Behavior is fussy, vc1 restless, uncooperative. Pain: Complains of pain in right leg and left leg Pain does not radiate. Pain currently is 10 out of 10 on a pain scale. Quality of pain is described as sharp, Pain began 6 hours Is continuous, Noted to be restless, thrashing around the bed, kicking legs. EENT: No deficits noted. No signs and/or symptoms were reported regarding the EENT system. Neuro: Level of Consciousness is awake, alert, Oriented to person, place, time, situation, Reports weakness in right leg and left leg. Cardiovascular: Heart tones S1 S2 Patient's skin is warm and dry. Respiratory: Airway is patent Respiratory effort is even, unlabored, Respiratory pattern is regular, symmetrical, Breath sounds are clear bilaterally. GI: Abdomen is round non-distended, Reports vomited phlegm 1 time. : No deficits noted. No signs and/or symptoms were reported regarding the genitourinary system. Derm: Skin is intact, is healthy with good turgor, Skin is dry, Skin is pink, warm \T\ dry. Skin temperature is warm. Musculoskeletal: kicking both legs Reports pain in right leg and left leg. Historical: - Allergies: 04:04 PENICILLINS; vc1 - PMHx: 04:04 Cerebrovascular accident; Chronic obstructive lung disease; Congestive heart failure; vc1 diabetes mellitus; Gout; High Cholesterol; Hypertensive disorder; pacemaker/defibrilator; pain pump; Parkinson's disease; Stroke/TIA; - PSHx: 04:04 Appendectomy; back; Cholecystectomy; dental; foot; neck; pacer/defib (neck); vc1 - Immunization history:: Client reports receiving the 2nd dose of the Covid vaccine, Flu vaccine is not up to date. - Infectious Disease History:: Denies. - Social history:: Smoking status: Patient denies any tobacco usage or history of. - Family history:: not pertinent. Screenin:05 Abuse screen: Denies threats or abuse. Nutritional screening: No deficits noted. vc1 Tuberculosis screening: No symptoms or risk factors identified. 06:09 [facility] ED Fall Risk Assessment (Adult) History of falling in the last 3 months, vc1 including since admission No falls in past 3 months (0 pts) Confusion or Disorientation No (0 pts) Intoxicated or Sedated No (0 pts) Impaired Gait Yes (1 pt) Mobility Assist Device Used Yes (1 pt) Altered Elimination No (0 pt) Score/Fall Risk Level 0 - 2 = Low Risk Oriented to surroundings, Maintained a safe environment, Educated pt \T\ family on fall prevention, incl call for assistance when getting out of bed. Assessment: 04:00 Reassessment: See triage assessment. vc1 05:00 General: Appears uncomfortable, Behavior is cooperative, anxious, restless. Pain: ha1 Complains of pain in right leg and left leg. Pain: Pain currently is 10 out of 10 on a pain scale. Quality of pain is described as aching, crampy, tingling, throbbing. Respiratory: Airway is patent Respiratory effort is even, unlabored, Respiratory pattern is regular, symmetrical. 05:00 Reassessment: Notified Dr. Morris of pain level. ha1 06:07 Reassessment: No changes from previously documented assessment. Patient and/or family vc1 updated on plan of care and expected duration. Pain level reassessed. Patient is alert, oriented x 3, equal unlabored respirations, skin warm/dry/pink. patient thrashing around in bed kicking legs stating still in pain. 07:03 Reassessment: fax sheet sent. received by ELYSIA Buenrostro. ha1 Vital Signs: 04:01 BP 153 / 125; Pulse 87; Resp 20; Temp 97.8; Pulse Ox 97% ; Weight 156.49 kg; Height 6 vc1 ft. 0 in. ; Pain 10/10; 05:09 BP 151 / 95; Pulse 84; Resp 18; Pulse Ox 94% on R/A; vc1 05:59 Pulse 92; Resp 18; Pulse Ox 96% ; vc1 06:07 BP 120 / 96; vc1 06:30 BP 120 / 96; Pulse 93; Resp 16 S; Pulse Ox 93% on R/A; ha1 04:01 Body Mass Index 46.79 (156.49 kg, 182.88 cm) vc1 04:01 Pain Scale: Adult vc1 Khoa Coma Score: 06:35 Eye Response: spontaneous(4). Motor Response: obeys commands(6). Verbal Response: sp4 oriented(5). Total: 15. ED Course: 03:44 Patient arrived in ED. jb4 03:47 Max Morris MD is Attending Physician. sp4 04:03 Triage completed. vc1 04:04 Warm blanket given. oe 04:09 Arm band placed on right wrist. vc1 04:09 Patient has correct armband on for positive identification. Bed in low position. Pulse vc1 ox on. NIBP on. 04:20 Inserted saline lock: 20 gauge in right forearm, using aseptic technique. Blood ha1 collected. 04:35 Basic Metabolic Panel Sent. ha1 04:35 CBC with Diff Sent. ha1 04:35 LFT's Sent. ha1 04:35 Magnesium Sent. ha1 04:35 NT PRO-BNP Sent. ha1 04:35 PT-INR Sent. ha1 04:35 Troponin HS Sent. ha1 04:53 XRAY Chest (1 view) In Process Unspecified. EDMS 05:53 Rossana Nuñez MD is Hospitalizing Provider. sp4 06:09 Provided Education on: falll safety, blood pressure, pain meds. vc1 06:09 No provider procedures requiring assistance completed. vc1 06:19 Ashley Santana FNP-C is PHCP. snw Administered Medications: 03:59 Drug: Geodon IM 20 mg IM once Route: IM; Site: right ventrogluteal; vc1 04:32 Drug: Ondansetron IVP 4 mg IVP once; over 2 minutes Route: IVP; Site: right forearm; ha1 05:00 Follow up: Response: No adverse reaction ha1 04:32 Drug: morphine IVP or IV 4 mg IVP once over 4 mins Route: IVP; Infused Over: 4 mins; ha1 Site: right forearm; 05:00 Follow up: Response: No adverse reaction; Pain is unchanged, physician notified; RASS: ha1 Restless (+1) 04:34 Drug: NS 0.9% IV 1000 ml IV at 125 ml/hr continuous Route: IV; Rate: 125 ml/hr; Site: ha1 right forearm; 06:03 Drug: morphine IVP or IV 4 mg IVP once over 4 mins Route: IVP; Infused Over: 4 mins; ha1 Site: right forearm; 06:30 Follow up: Response: No adverse reaction; Pain is unchanged, physician notified; RASS: ha1 Restless (+1) 06:03 Drug: morphine IVP or IV 4 mg IVP once over 4 mins Route: IVP; Infused Over: 4 mins; ha1 Site: right forearm; 06:30 Follow up: Response: No adverse reaction; Pain is unchanged, physician notified; RASS: ha1 Restless (+1) 06:34 Not Given (Physician Discretion): hydromorphone1 mg IVP once sp4 06:40 Drug: fentaNYL (PF) IVP 100 mcg IVP once Route: IVP; Site: right forearm; vc1 Medication: 04:05 VIS not applicable for this client. vc1 Outcome: 05:53 Decision to Hospitalize by Provider. sp4 07:54 Patient left the ED. bd Signatures: Dispatcher [employer] EDMS dianne Chacha Ashley Gabriel, GLUE SPREADING MACHINE OPERATOR-C GLUE SPREADING MACHINE OPERATOR-Csnw Mando Alcantar, RN RN jb4 Filipe Martin Vanessa, RN RN vc1 Annamaria Nuñez RN RN ha1 Max Morris MD MD sp4 Corrections: (The following items were deleted from the chart) 04:09 04:01 Chief complaint: Patient states: restless legs, generalized pain, vomited phelgm vc1 EMS states: Leg cramps vc1 06:45 05:00 Response: No adverse reaction ha1 ha1
--- NOTE | 2023-07-18 05:54 | EDPHYS ---
Physician Documentation [facility] Name: Jayson Joe Sr Age: 72 yrs Sex: Male : 1950 Arrival Date: 07/18/2023 Time: 03:43 Bed 8 Private MD: ED Physician Max Morris HPI: 07/17 03:48 This 72 yrs old Male presents to ER via Unassigned with complaints of sp4 Generalized uneasiness . 06:35 72-year-old male with past medical history of CVA, TIA, left-sided weakness, COPD, sp4 congestive heart failure, morbid obesity, chronic pain, chronic anticoagulation with warfarin, pacemaker with defibrillator, type 2 diabetes, hypertension, hyperlipidemia, Parkinson's disease, morphine pump. . Patient presents with EMS for diffuse generalized pain, persistent restlessness, mild agitation, persistent bilateral lower extremity movement and jerking movement of his entire body. Patient states he awakened this morning feeling unwell. Patient reports he has a morphine pump for the spinal delivery by [employer]. Patient appears to be in active opiate withdrawal on arrival. With restlessness mild agitation persistent movement. . Historical: - Allergies: 04:04 PENICILLINS; vc1 - PMHx: 04:04 Cerebrovascular accident; Chronic obstructive lung disease; Congestive heart failure; vc1 diabetes mellitus; Gout; High Cholesterol; Hypertensive disorder; pacemaker/defibrilator; pain pump; Parkinson's disease; Stroke/TIA; - PSHx: 04:04 Appendectomy; back; Cholecystectomy; dental; foot; neck; pacer/defib (neck); vc1 - Immunization history:: Client reports receiving the 2nd dose of the Covid vaccine, Flu vaccine is not up to date. - Infectious Disease History:: Denies. - Social history:: Smoking status: Patient denies any tobacco usage or history of. - Family history:: not pertinent. ROS: 06:35 Constitutional: Negative for fever, chills, and weight loss, positive for agitation, sp4 positive for persistent movement, positive for generalized pain 06:35 All other systems are negative, Exam: 06:35 Constitutional: This is a well developed, well nourished patient who is awake, alert, sp4 obese male who is acutely agitated, persistent jerking movements, persistent bilateral lower extremity movement, anxious and irritable. Head/Face: Normocephalic, atraumatic. Eyes: Pupils equal round and reactive to light, extra-ocular motions intact. Lids and lashes normal. Conjunctiva and sclera are not injected. Cornea within normal limits. Periorbital areas with no swelling, redness, or edema. ENT: Nares patent. No nasal discharge, no septal abnormalities noted. Tympanic membranes are normal and external auditory canals are clear. Oropharynx with no redness, swelling, or masses, exudates, or evidence of obstruction, uvula midline. Mucous membranes moist. Neck: Trachea midline, no thyromegaly or masses palpated, and no cervical lymphadenopathy. Supple, full range of motion without nuchal rigidity, or vertebral point tenderness. Chest/axilla: Normal chest wall appearance and motion. Nontender with no deformity. No lesions are appreciated. Cardiovascular: Regular rate and rhythm with a normal S1 and S2. No gallops, murmurs, or rubs. Normal PMI, no JVD. No pulse deficits. Respiratory: Lungs have equal breath sounds bilaterally, clear to auscultation and percussion. No rales, rhonchi or wheezes noted. No increased work of breathing, no retractions or nasal flaring. Abdomen/GI: Soft, with normal bowel sounds. No distension or tympany. No guarding or rebound. No evidence of tenderness throughout. Back: No spinal tenderness. No costovertebral tenderness. Male : Normal genitalia with no discharge or lesions. Skin: Warm, dry with normal turgor. Normal color with no rashes, no lesions, and no evidence of cellulitis. MS/ Extremity: Pulses equal, no cyanosis. Neurovascular intact. Full, normal range of motion. His gait was not tested Neuro: Awake and alert, GCS 15, oriented to person, place, time, and situation. Cranial nerves II-XII grossly intact. Motor strength 5/5 in all extremities. Sensory grossly intact. Exam is complicated by moderate persistent Sukhjinder but no acute lateralizing deficits on exam. 07:01 ECG was reviewed by the Attending Physician. 419 EKG reveals paced rhythm at a rate sp4 of 94 Vital Signs: 04:01 BP 153 / 125; Pulse 87; Resp 20; Temp 97.8; Pulse Ox 97% ; Weight 156.49 kg; Height 6 vc1 ft. 0 in. ; Pain 10/10; 05:09 BP 151 / 95; Pulse 84; Resp 18; Pulse Ox 94% on R/A; vc1 05:59 Pulse 92; Resp 18; Pulse Ox 96% ; vc1 06:07 BP 120 / 96; vc1 06:30 BP 120 / 96; Pulse 93; Resp 16 S; Pulse Ox 93% on R/A; ha1 04:01 Body Mass Index 46.79 (156.49 kg, 182.88 cm) vc1 04:01 Pain Scale: Adult vc1 Khoa Coma Score: 06:35 Eye Response: spontaneous(4). Motor Response: obeys commands(6). Verbal Response: sp4 oriented(5). Total: 15. MDM: 03:48 Patient medically screened. sp4 05:52 ED course: EXAM DESCRIPTION: Chest Single View CLINICAL HISTORY: CHEST PAIN COMPARISON: sp4 None TECHNIQUE: Single AP view of the chest. FINDINGS: Left-sided cardiac conduction device. Lung volumes diminished. Cardiac silhouette is enlarged. No pneumothorax. No large pleural effusion. Patchy perihilar and bibasilar opacities. No acute bony finding. Cervical spine hardware noted. IMPRESSION: 1. Patchy perihilar and bibasilar opacities, could represent atelectasis, edema, and/or atypical infectious process. 2. Enlarged cardiac silhouette. . 06:42 Differential Diagnosis altered mental status, sepsis, flu, Opiate withdrawals. Data sp4 reviewed: vital signs, nurses notes, EMS record, old medical records, lab test result(s), EKG, radiologic studies, plain films. Consideration of Admission/Observation Patient was admitted/placed on observation. Escalation of care including admission/observation considered. Management of patient was discussed with the following: Hospitalist: Discussed with Admission team . ED course: Positive signs of opiate withdrawals. Patient's pain pump is with [employer] and we are currently contacting the traveling representative for pump interrogation . Patient should be admitted for pain control until pain pump can be interrogated. . 07/17 03:47 Order name: Basic Metabolic Panel; Complete Time: 05:39 sp4 07/17 03:47 Order name: CBC with Diff; Complete Time: 05:39 sp4 07/17 03:47 Order name: LFT's; Complete Time: 05:39 sp4 07/17 03:47 Order name: Magnesium; Complete Time: 05:39 sp4 07/17 03:47 Order name: NT PRO-BNP; Complete Time: 05:39 sp4 07/17 03:47 Order name: PT-INR; Complete Time: 05:39 sp4 07/17 03:47 Order name: Troponin HS; Complete Time: 05:39 sp4 07/17 03:47 Order name: Lipase; Complete Time: 05:39 sp4 07/17 03:47 Order name: Alcohol Level; Complete Time: 05:39 sp4 07/17 03:47 Order name: CRP; Complete Time: 05:39 sp4 07/17 04:25 Order name: Influenza Screen (a \T\ B); Complete Time: 05:50 sp4 07/17 04:25 Order name: Urinalysis W/Microscopic sp4 07/17 06:42 Order name: CBC with Automated Diff EDMS 07/17 06:42 Order name: CBC with Automated Diff EDMS 07/17 06:42 Order name: Comprehensive Metabolic Panel EDMS 07/17 06:42 Order name: Comprehensive Metabolic Panel EDMS 07/17 03:47 Order name: XRAY Chest (1 view) sp4 07/17 03:47 Order name: Cardiac monitoring; Complete Time: 04:36 sp4 07/17 03:47 Order name: EKG - Nurse/Tech; Complete Time: 04:35 sp4 07/17 03:47 Order name: IV Saline Lock; Complete Time: 04:35 sp4 07/17 03:47 Order name: Labs collected and sent; Complete Time: 04:35 sp4 07/17 03:47 Order name: O2 Per Protocol; Complete Time: 04:35 sp4 07/17 03:47 Order name: O2 Sat Monitoring; Complete Time: 04:35 sp4 Administered Medications: 03:59 Drug: Geodon IM 20 mg IM once Route: IM; Site: right ventrogluteal; vc1 04:32 Drug: Ondansetron IVP 4 mg IVP once; over 2 minutes Route: IVP; Site: right forearm; ha1 05:00 Follow up: Response: No adverse reaction ha1 04:32 Drug: morphine IVP or IV 4 mg IVP once over 4 mins Route: IVP; Infused Over: 4 mins; ha1 Site: right forearm; 05:00 Follow up: Response: No adverse reaction; Pain is unchanged, physician notified; RASS: ha1 Restless (+1) 04:34 Drug: NS 0.9% IV 1000 ml IV at 125 ml/hr continuous Route: IV; Rate: 125 ml/hr; Site: ha1 right forearm; 06:03 Drug: morphine IVP or IV 4 mg IVP once over 4 mins Route: IVP; Infused Over: 4 mins; ha1 Site: right forearm; 06:30 Follow up: Response: No adverse reaction; Pain is unchanged, physician notified; RASS: ha1 Restless (+1) 06:03 Drug: morphine IVP or IV 4 mg IVP once over 4 mins Route: IVP; Infused Over: 4 mins; ha1 Site: right forearm; 06:30 Follow up: Response: No adverse reaction; Pain is unchanged, physician notified; RASS: ha1 Restless (+1) 06:34 Not Given (Physician Discretion): hydromorphone1 mg IVP once sp4 06:40 Drug: fentaNYL (PF) IVP 100 mcg IVP once Route: IVP; Site: right forearm; vc1 Disposition Summary: 07/18/23 05:53 Hospitalization Ordered Notes: Hospitalization Status: Inpatient Admission sp4 Provider: Rossana Nuñez sp4 Location: Telemetry/MedSurg (Inpatient) sp4 Condition: Stable sp4 Problem: new sp4 Symptoms: have improved sp4 Bed/Room Type: Standard sp4 Room Assignment: 207(07/18/23 06:49) jb4 Diagnosis - Opioid dependence with withdrawal sp4 - Acute opiate withdrawal, restlessness with agitation, sp4 Forms: - Medication Reconciliation Form sp4 - SBAR form sp4 - Leadership Thank You Letter sp4 Signatures: Dispatcher [employer] EDMando Sandoval RN RN jb4 Evelyn Crane RN RN vc1 Annamaria Nuñez RN RN ha1 Max Morris MD MD sp4 Corrections: (The following items were deleted from the chart) 03:48 03:48 BASIC METABOLIC PANEL+C.LAB.BRZ ordered. EDMS EDMS 03:48 03:48 CBC+H.LAB.BRZ ordered. EDMS EDMS 03:48 03:48 HEPATIC FUNCTION+C.LAB.BRZ ordered. EDMS EDMS 03:48 03:48 MAGNESIUM+C.LAB.BRZ ordered. EDMS EDMS 03:48 03:48 PROBNP+C.LAB.BRZ ordered. EDMS EDMS 03:48 03:48 PROTIME (+INR)+COAG.LAB.BRZ ordered. EDMS EDMS 03:48 03:48 Troponin High Sensitivity+C.LAB.BRZ ordered. EDMS EDMS 03:48 03:48 Chest Single View+RAD.RAD.BRZ ordered. EDMS EDMS 03:48 03:48 LIPASE+C.LAB.BRZ ordered. EDMS EDMS 03:48 03:48 ETHANOL+C.LAB.BRZ ordered. EDMS EDMS 03:48 03:48 C-REACTIVE PROTEIN+C.LAB.BRZ ordered. EDMS EDMS 04:25 04:25 Influenza Screen (A \T\ B)+BA.LAB.BRZ ordered. EDMS EDMS 04:25 04:25 Urinalysis W/Microscopic+U.LAB.BRZ ordered. EDMS EDMS 06:49 05:53 sp4 jb4
[2023-07-18] MEDS ORDERED: HYDROMORPHONE HCL 1 MG/ML INJ ONE (06:28)
[2023-07-18] MEDS ORDERED: FENTANYL CITR 100 MCG/2 ML ONE (06:36)
[2023-07-18] MEDS ORDERED: MORPHINE 2 MG/ML SYR IV PRN (06:37)
--- NOTE | 2023-07-18 06:48 | P.HP ---
Certification for Inpatient Patient admitted to: Observation With expected LOS: <2 Midnights Patient will require the following post-hospital care: None Practitioner: I am a practitioner with admitting privileges, knowledge of patient current condition, hospital course, and medical plan of care. Services: Services provided to patient in accordance with Admission requirements found in Title 42 Section 412.3 of the Code of Federal Regulations <Martha Santanaapril Westbrook - Last Filed: 07/18/23 07:08> Patient History Date of Service: 07/18/23 Primary Care Provider: Benito Del Rio Reason for admission: pain pump malfunction, jumping with leg pain History of Present Illness: Mr. Joe is a 72-year-old gentleman with a past medical history of Parkinson's, CVA, depression, COPD, hypertension, pacemaker placement, diabetes, gout, and chronic pain. He apparently woke this morning with paroxysms of severe leg jerking and pain. He was evaluated in the emergency department and found to have labs inconsistent with any acute abnormality. His symptoms were reportedly from morphine withdrawal secondary to possible pain pump malfunction. [employer] has been contacted for call back to evaluate the pain pump. He will be evaluated while in observation with treatment aimed at decreasing symptoms while continuing his home medications. Home medications list reviewed: Yes - Past Medical/Surgical History Diabetic: Yes -: CVA -: COPD -: CHFsystolic -: Type 2 Pfceuzoqtai-[id number] -: Gout -: Hypertension -: Hyperlipdemia -: Parkinson's -: Chronic pain with pain pump -: prugrigonodulalis- -: Pacemaker/defibrillator -: Appendectomy -: Cholecystectomy -: Pain pump -: cataract -: foot -: neck Psychosocial/ Personal History: Patient is . Lives at home with his - Family History Russ -: Heart disease, Hypertension, Stroke - Social History Alcohol use: No CD- Drugs: No Caffeine use: No Place of Residence: Home <Ashley Santana - Last Filed: 07/18/23 07:08> Date of Service: 07/18/23 <Rossana Nuñez - Last Filed: 07/18/23 12:00> Allergies Penicillins Allergy (Severe, Verified 06/30/22 22:26) Anaphylaxis Home Medications: Allopurinol 300 mg PO DAILY 06/30/22 Atorvastatin Calcium 40 mg PO BEDTIME 06/30/22 Gabapentin 300 mg PO BID 06/30/22 Mexiletine HCl 200 mg PO TID 06/30/22 Omeprazole [Prilosec] 40 mg PO DAILY 06/30/22 Potassium Chloride 10 meq PO DAILY 06/30/22 Sertraline [Zoloft*] 100 mg PO BID 06/30/22 Spironolactone 25 mg PO DAILY 06/30/22 Carbidopa/Levodopa [Carbidopa-Levo 25-100 mg Odt] 2 tab PO BID 02/26/23 Nystatin [Nystop] 15 gm TP PRN PRN 02/26/23 Triamcinolone 0.1% Crm [Kenalog 0.1% Cream*] 454 gm TP PRN PRN 02/26/23 buPROPion HCL [Bupropion Xl] 150 mg PO DAILY 02/26/23 Carvedilol [Coreg] 3.125 mg PO BID #60 tab 04/19/23 Sacubitril/Valsartan [Entresto 24 mg-26 mg Tablet] 0.5 tab PO BID #30 tab 04/19/23 Bumetanide [Bumex] 1 mg PO BID 07/18/23 Donepezil [Aricept*] 5 mg PO DAILY 07/18/23 Warfarin Sodium 5 mg PO SEECOM 07/18/23 Warfarin Sodium 7.5 mg PO SEECOM 07/18/23 Review of Systems 10-point ROS is otherwise unremarkable General: As per HPI Musculoskeletal: As per HPI Neurological: As per HPI <Ashley Santana - Last Filed: 07/18/23 07:08> Physical Examination - Physical Exam General: Alert, Oriented x3, Cooperative, Mild distress, Obese, Other (random kicking out of bilateral legs (with sharp pains)) HEENT: Atraumatic, Normocephalic Neck: Supple, Other (well healed scar) Respiratory: Normal air movement Cardiovascular: No edema, Normal pulses, Regular rate/rhythm Capillary refill: <2 Seconds Gastrointestinal: Normal bowel sounds Musculoskeletal: No swelling, Other (paroxysmal spasms) Integumentary: Other (mild areas of superficial ecchymosis under the skin) Neurological: Normal speech, Normal tone Lymphatics: No axilla or inguinal lymphadenopathy External genitalia: Deferred Rectal: Deferred - Studies Laboratory Data (last 24 hrs) 07/18/23 07/18/23 07/18/23 04:20 04:20 04:20 WBC 9.20 Hgb 14.2 Hct 43.3 Plt Count 138 L PT 23.4 H INR 2.18 Sodium 143 Potassium 3.5 BUN 11 Creatinine 0.93 Glucose 118 H Magnesium 2.1 Total Bilirubin 1.4 H AST 25 ALT 29 Alkaline Phosphatase 98 Lipase 48 Microbiology Data (last 24 hrs): 07/18/23 05:10 Nasopharnyx Influenza Type A Antigen Screen - Final 07/18/23 05:10 Nasopharnyx Influenza Type B Antigen Screen - Final <Santana,Ashley Pietro - Last Filed: 07/18/23 07:08> - Studies Laboratory Data (last 24 hrs) 07/18/23 07/18/23 07/18/23 04:20 04:20 04:20 WBC 9.20 Hgb 14.2 Hct 43.3 Plt Count 138 L PT 23.4 H INR 2.18 Sodium 143 Potassium 3.5 BUN 11 Creatinine 0.93 Glucose 118 H Magnesium 2.1 Total Bilirubin 1.4 H AST 25 ALT 29 Alkaline Phosphatase 98 Lipase 48 Microbiology Data (last 24 hrs): 07/18/23 05:10 Nasopharnyx Influenza Type A Antigen Screen - Final 07/18/23 05:10 Nasopharnyx Influenza Type B Antigen Screen - Final <Rossana Nuñez - Last Filed: 07/18/23 12:00> Assessment and Plan - Plan Paroxysmal leg spasms: Contact pain mgmt MD and have pain pump evaluated - [facility] Morphine 2mg IV q4h Valium 5mg IV QID Gabapentin 300mg po BID Parkinson's Continue home medications Carvidopa/Levodopa 25/100 po BID Cardiac Arrythmia/Pacemaker Coumadin 7.5mg po daily Mexiletine 200mg po TID at home (substitute or have Spouse bring his meds) COPD Nebs prn continue home medications CHF avoid IVF, fluid restrict to 1.2L/d Sprionolactone 25mg po daily HTN Coreg 3.125mg po BID Depression/Anxiety Buproprion 300mg daily DVT/GI prophylaxis on Coumadin and Omeprazole - Advance Directives Does patient have a Living Will: No Does patient have a Durable POA for Healthcare: No <Santana,Ashley Pietro - Last Filed: 07/18/23 07:08> - Plan Pt seen and examined. I agree withe the note by the COLOR SEPARATION PHOTOGRAPHER. Pt is a 72 yo male with past medical history of Parkinson's, CVA, depression, COPD, hypertension, pacemaker placement, diabetes, gout, and chronic pain who presents with pain and jerky movement in his legs. It progressively worsened and pt came to the Er. On evaluation. it was discovered that his pain pump malfunction. We attributed the symptoms to morphine withdrawal and consulted the [employer] [employer] to evaluate his pain pump. Lab studies are unremarkable. At bedside, pt is in NAD. A/P: Jerky leg movement: Due to morphine withdrawal. Will give prn morphine and gabapentin for neuropathic pain. Will continue home med for other chronic medical problems. Pt was advised to lose weight. <Rossana Nuñez - Last Filed: 07/18/23 12:00>
[2023-07-18] MEDS: INSULIN REGULAR (HUMAN) 100 UNIT/ML SQ SCH (07:30)
[2023-07-18 08:30] VITALS: O2SAT 93
[2023-07-18] MEDS: carvediloL 3.125 MG TAB PO SCH (09:00)
[2023-07-18] MEDS: CARBIDOPA/LEVODOPA 25/100 TAB PO SCH (09:00)
[2023-07-18] MEDS: GABAPENTIN 300 MG CAP PO SCH (09:00)
[2023-07-18] MEDS: BUPROPION HCL XL 150 MG TAB PO SCH (09:01)
[2023-07-18] MEDS: SPIRONOLACTONE 25 MG TABLET PO SCH (09:01)
--- NOTE | 2023-07-18 11:00 | RAD REPORT ---
EXAM DESCRIPTION: RAD - Chest Single View - 07/18/2023 4:52 am CLINICAL HISTORY: CHEST PAIN COMPARISON: None TECHNIQUE: Single AP view of the chest. FINDINGS: Left-sided cardiac conduction device. Lung volumes diminished. Cardiac silhouette is enlarged. No pneumothorax. No large pleural effusion. Patchy perihilar and bibasilar opacities. No acute bony finding. Cervical spine hardware noted. IMPRESSION: 1. Patchy perihilar and bibasilar opacities, could represent atelectasis, edema, and/o r atypical infectious process. 2. Enlarged cardiac silhouette. Electronically signed by: Elizabeth Walters MD 07/18/2023 05:47 AM CDT Due to temporary technical issues with the PACS/Fluency reporting system, reports are being signed by the in house radiologist without review as a courtesy to ensure prompt reporting. The interpreting r adiologist is fully responsible for the content of the report.
[2023-07-18] MEDS: MORPHINE 4 MG/ML SYR IV PRN (11:21)
[2023-07-18] MEDS: DIAZEPAM 10 MG/2 ML INJ SYRINGE IV SCH (11:23)
[2023-07-18] MEDS: HYDROMORPHONE HCL 1 MG/ML INJ IV ONE (21:54)
[2023-07-19 03:43] LABS: Absolute Basophils 0.1 K/uL (0-0.5); Absolute Eosinophils 0.1 K/uL (0-0.5); Absolute Lymphocytes (CBC) 2.2 K/uL (0.7-4.9); Absolute Monocytes 0.8 K/uL (0.1-1.3); Absolute Neutrophil 7.6 K/uL (1.8-8.0); Basophils % 0.9 % (0-1.3); Hematocrit 42.6 % (39.6-49.0); Lymphocytes % 20.3 % (15.3-44.8); MCH 31.6 pg (27.0-35.0); MCHC 32.9 g/dL (32.0-36.0); MPV 8.7 fL (7.6-11.3); Monocytes % 7.7 % (3.3-12.3); Neutrophils % 70.1 % (41.7-73.7); Nucleated Red Blood Cells % 0.1 % (0-0); Platelets 142 thou/uL (152-406); RBC Red Blood Cell Count 4.44 M/uL (4.33-5.43); Red Cell Distribution Width 14.1 % (12.1-15.2)
[2023-07-19 04:01] LABS: AST/SGOT 49 U/L (15-37); Albumin 3.5 g/dL (3.4-5.0); Alkaline Phosphatase 105 U/L (45-117); Anion Gap 6.6 mEq/L (5.0-15.0); BUN Blood Urea Nitrogen 12 mg/dL (7-18); Bicarbonate 28 mEq/L (21-32); Bilirubin Total 1.8 mg/dL (0.2-1.0); Globulin 3.5 g/dL (2.3-3.5); Glomerular Filtration Rate 89 ml/min (=/>90); Glucose Level 94 mg/dL (74-106); Potassium 3.6 mEq/L (3.5-5.1); Sodium Level 144 mEq/L (136-145)
[2023-07-19 04:07] LABS: ALT/SGPT < 14 U/L (16-61)
[2023-07-19] MEDS: PANTOPRAZOLE 40MG TABLET PO SCH (06:30)
--- NOTE | 2023-07-19 08:35 | P.PN ---
Subjective Date of Service: 07/19/23 Primary Care Provider: Benito Del Rio Chief Complaint: pain pump malfunction, jumping with leg pain Subjective: No new changes (legs jumpy, c/o 12/19 pain. Will add Baclofen TID. No response from [facility]), Other <Ashley Santanalen - Last Filed: 07/19/23 08:29> Date of Service: 07/19/23 <Rossana Nuñez - Last Filed: 07/19/23 10:35> Review of Systems 10-point ROS is otherwise unremarkable General: As per HPI Cardiovascular: As per HPI Musculoskeletal: As per HPI Integumentary: Bruising Neurological: As per HPI <Martha Santanay - Last Filed: 07/19/23 08:29> Physical Examination - Vital Signs Temperature: 97.7 F Blood Pressure: 128/60 Pulse: 75 Respirations: 18 Pulse Ox (%): 91 - Physical Exam General: Alert, Oriented x3, Mild distress, Obese HEENT: Atraumatic, Normocephalic Neck: Supple Respiratory: Normal air movement Cardiovascular: Normal pulses Capillary refill: <2 Seconds Gastrointestinal: Soft and benign Musculoskeletal: No clubbing, No swelling, Other (right leg with obvious spasm, pt jerking, states pain is unbearable) Integumentary: Other (multiple small areas of ecchymosis to abdomen) Neurological: Normal speech, Normal affect, Other (painful appearing spastic movements) Lymphatics: No axilla or inguinal lymphadenopathy External genitalia: Deferred Rectal: Deferred - Studies Microbiology Data (last 24 hrs): 07/18/23 05:10 Nasopharnyx Influenza Type A Antigen Screen - Final 07/18/23 05:10 Nasopharnyx Influenza Type B Antigen Screen - Final <Martha Santanay - Last Filed: 07/19/23 08:29> - Studies Microbiology Data (last 24 hrs): 07/18/23 05:10 Nasopharnyx Influenza Type A Antigen Screen - Final 07/18/23 05:10 Nasopharnyx Influenza Type B Antigen Screen - Final <Rossana Nuñez C - Last Filed: 07/19/23 10:35> Assessment And Plan - Plan Paroxysmal leg spasms: Contact pain mgmt MD and have pain pump evaluated - [facility] Morphine 2mg IV q4h 07/18 change Valium to 5mg at HS add Benadryl 25mg IV for spasm Gabapentin 300mg po BID Parkinson's Continue home medications Carvidopa/Levodopa 25/100 po BID Cardiac Arrythmia/Pacemaker Coumadin 7.5mg po daily Mexiletine 200mg po TID at home (substitute or have Spouse bring his meds) COPD Nebs prn continue home medications CHF avoid IVF, fluid restrict to 1.2L/d Sprionolactone 25mg po daily HTN Coreg 3.125mg po BID Depression/Anxiety Buproprion 300mg daily DVT/GI prophylaxis on Coumadin and Omeprazole <Ashley Santana - Last Filed: 07/19/23 08:29> - Plan Pt seen and examined. I agree with the note by the HEM MARKER. Pt still has the jerky leg movement. Will increase morphine to 4mg iv Q4h. Waiting for pain management / [facility] to assess or replace the pain pump. Will continue home med for other chronic medical problems. <Rossana Nuñez - Last Filed: 07/19/23 10:35>
[2023-07-19] MEDS ORDERED: DIAZEPAM 10 MG/2 ML INJ SYRINGE IV SCH (09:00)
[2023-07-19] MEDS ORDERED: BACLOFEN 10 MG TAB PO SCH (09:00)
[2023-07-19] MEDS: DIPHENHYDRAMINE 50 MG/ML VIAL IV ONE (09:04)
[2023-07-19] MEDS: MORPHINE 4 MG/ML SYR IV PRN (13:00)
[2023-07-19] MEDS: POLYETHYL GLY 3350 17 GM/DOSE PO PRN (13:01)
--- NOTE | 2023-07-19 14:06 | EKG ---
Test Date: 2023-07-18 Test Time: 04:19:35 Ell Tutor: NAYANA MEASUREMENT RESULTS: Intervals: Rate: 94 CO: 252 QRSD: 64 QT: 316 QTc: 395 [place]: P: 70 CO: 252 QRS: 249 T: 164 INTERPRETIVE STATEMENTS: Ventricular-paced complex(es) or rhythm is present Electronically Signed On 07-19-23 14:02:35 CDT by Natanael Garcia
[2023-07-19 14:18] VITALS: BMI 6737.1
[2023-07-19] MEDS ORDERED: MORPHINE 2 MG/ML SYR IV PRN (16:38)
[2023-07-19] MEDS: DIAZEPAM 10 MG/2 ML INJ SYRINGE IV ONE (21:58)
[2023-07-20] MEDS: ACETAMINOPHEN 325 MG TABLET PO ONE (05:44)
[2023-07-20] MEDS ORDERED: HYDROCODONE/APAP 5/325 MG TAB PO PRN (06:56)
--- NOTE | 2023-07-20 09:08 | P.DS ---
Admission Date: 07/18/23 Discharge Date: 07/20/23 Primary Care Provider: Benito Del Rio Reason for Admission: pain pump malfunction, jumping with leg pain Consultations: attempted to contact Patient's Pain management clinic. Message left 07/19/23 Brief History of Present Illness: Mr. Joe is a 72-year-old gentleman with a past medical history of Parkinson's, CVA, depression, COPD, hypertension, pacemaker placement, diabetes, gout, and chronic pain. He apparently woke this morning with paroxysms of severe leg jerking and pain. He was evaluated in the emergency department and found to have labs inconsistent with any acute abnormality. His symptoms were reportedly from morphine withdrawal secondary to possible pain pump malfunction. [facility] has been contacted for call back to evaluate the pain pump. He will be evaluated while in observation with treatment aimed at decreasing symptoms while continuing his home medications. Hospital Course: [facility] verified that pain pump is functional; however, the patient was to have it replaced in March 2023. We will send him home with some anticholinergics for spasticity and he will need to follow-up with his pain management clinic. <Ashley Santana - Last Filed: 07/20/23 09:02> Admission Date: 07/18/23 Discharge Date: 07/20/23 Hospital Course: Pt seen and examined. I agree with the note by the BRASS CHASER. Pt was advised to follow up with his pain specialist, Dr. Yi, in order to replace the pain pump. We gave him anticholinergics for the leg spasticity. <Rossana Nuñez - Last Filed: 07/20/23 14:48> Disposition: ROUTINE DISCHARGE Discharge Condition: GOOD Vital Signs/Physical Exam: Temp Pulse Resp BP Pulse Ox 97.7 F 90 18 164/72 H 97 07/20/23 04:00 07/20/23 05:44 07/20/23 08:47 07/20/23 05:44 07/20/23 08:47 General: Alert, In no apparent distress, Oriented x3, Obese HEENT: Atraumatic, Normocephalic Neck: Supple Respiratory: Normal air movement Cardiovascular: Normal pulses Capillary refill: <2 Seconds Gastrointestinal: Soft and benign Musculoskeletal: No clubbing, Other (much less jerkiness today. Pt states he is ready to go home and just needs direction for follow up) Integumentary: Other (multiple small areas of ecchymosis over abdomen from scratching) Neurological: Normal speech, Normal tone, Normal affect, Other (able to walk with walker to bathroom) Lymphatics: No axilla or inguinal lymphadenopathy External genitalia: Deferred Rectal: Deferred Laboratory Data at Discharge: WBC 10.80 thou/uL (4.3-10.9) 07/19/23 02:50 Hgb 14.0 g/dL (13.6-17.9) 07/19/23 02:50 Hct 42.6 % (39.6-49.0) 07/19/23 02:50 Plt Count 142 thou/uL (152-406) L 07/19/23 02:50 PT 23.4 SECONDS (9.5-12.5) H 07/18/23 04:20 INR 2.18 07/18/23 04:20 Sodium 144 mEq/L (136-145) 07/19/23 02:50 Potassium 3.6 mEq/L (3.5-5.1) 07/19/23 02:50 BUN 12 mg/dL (7-18) 07/19/23 02:50 Creatinine 0.92 mg/dL (0.70-1.30) 07/19/23 02:50 Glucose 94 mg/dL (74-106) 07/19/23 02:50 Magnesium 2.1 mg/dL (1.6-2.4) 07/18/23 04:20 Total Bilirubin 1.8 mg/dL (0.2-1.0) H 07/19/23 02:50 AST 49 U/L (15-37) H 07/19/23 02:50 ALT < 14 U/L (16-61) L 07/19/23 02:50 Alkaline Phosphatase 105 U/L (45-117) 07/19/23 02:50 Lipase 48 U/L (13-75) 07/18/23 04:20 <Santana,Ashley Pietro - Last Filed: 07/20/23 09:02> Vital Signs/Physical Exam: Temp Pulse Resp BP Pulse Ox 97.6 F 76 18 145/62 H 97 07/20/23 12:00 07/20/23 12:00 07/20/23 12:41 07/20/23 12:00 07/20/23 12:41 Laboratory Data at Discharge: WBC 10.80 thou/uL (4.3-10.9) 07/19/23 02:50 Hgb 14.0 g/dL (13.6-17.9) 07/19/23 02:50 Hct 42.6 % (39.6-49.0) 07/19/23 02:50 Plt Count 142 thou/uL (152-406) L 07/19/23 02:50 PT 23.4 SECONDS (9.5-12.5) H 07/18/23 04:20 INR 2.18 07/18/23 04:20 Sodium 144 mEq/L (136-145) 07/19/23 02:50 Potassium 3.6 mEq/L (3.5-5.1) 07/19/23 02:50 BUN 12 mg/dL (7-18) 07/19/23 02:50 Creatinine 0.92 mg/dL (0.70-1.30) 07/19/23 02:50 Glucose 94 mg/dL (74-106) 07/19/23 02:50 Magnesium 2.1 mg/dL (1.6-2.4) 07/18/23 04:20 Total Bilirubin 1.8 mg/dL (0.2-1.0) H 07/19/23 02:50 AST 49 U/L (15-37) H 07/19/23 02:50 ALT < 14 U/L (16-61) L 07/19/23 02:50 Alkaline Phosphatase 105 U/L (45-117) 07/19/23 02:50 Lipase 48 U/L (13-75) 07/18/23 04:20 <Rossana Nuñez - Last Filed: 07/20/23 14:48> Diet: AHA Activity: Fall precautions <Santana,Ashley Pietro - Last Filed: 07/20/23 09:02> <Rossana Nuñez - Last Filed: 07/20/23 14:48> Home Medications: Allopurinol 300 mg PO DAILY 06/30/22 Atorvastatin Calcium 40 mg PO BEDTIME 06/30/22 Gabapentin 300 mg PO BID 06/30/22 Mexiletine HCl 200 mg PO TID 06/30/22 Omeprazole [Prilosec] 40 mg PO DAILY 06/30/22 Potassium Chloride 10 meq PO DAILY 06/30/22 Sertraline [Zoloft*] 100 mg PO BID 06/30/22 Spironolactone 25 mg PO DAILY 06/30/22 Carbidopa/Levodopa [Carbidopa-Levo 25-100 mg Odt] 2 tab PO BID 02/26/23 Nystatin [Nystop] 15 gm TP PRN PRN 02/26/23 Triamcinolone 0.1% Crm [Kenalog 0.1% Cream*] 454 gm TP PRN PRN 02/26/23 buPROPion HCL [Bupropion Xl] 150 mg PO DAILY 02/26/23 Carvedilol [Coreg] 3.125 mg PO BID #60 tab 04/19/23 Sacubitril/Valsartan [Entresto 24 mg-26 mg Tablet] 0.5 tab PO BID #30 tab 04/19/23 Bumetanide [Bumex*] 1 mg PO BID 07/18/23 Donepezil [Aricept*] 5 mg PO DAILY 07/18/23 Warfarin Sodium 5 mg PO SEECOM 07/18/23 Warfarin Sodium 7.5 mg PO SEECOM 07/18/23 Scopolamine [Transderm-Scop] 1 each TD Q72H #2 pat 07/20/23 New Medications: Scopolamine [Transderm-Scop] 1 each TD Q72H #2 pat Physician Discharge Instructions: [facility] verified that pain pump is functional; however, the patient was to have it replaced in March 2023. We will send him home with some anticholinergics for spasticity and he will need to follow-up with his pain management clinic. Okay to DC IV and DC home Follow-up with primary care provider in 1 to 2 weeks Follow-up with pain management today Please call the inpatient unit for any questions or concerns regarding hospital stay Return to the ER for worsening symptoms Followup: Jackie Del Rio MD [Primary Care Provider] - 1-2 Weeks
[2023-07-20 13:09] VITALS: BP 145/62; TEMP 97.6
== END 2023-07-20 13:13 | disposition home or self-care (01) ==
LOC: ER 03:43 → ERHOLD 06:37 → 2ND 07:00
PROVIDERS: ADMIT Hospitalist; ATTEND Hospitalist
DX: F11.23 Opioid dependence with withdrawal (principal); T85.615A Breakdown (mechanical) of other nervous system device, implant or graft, initial encounter; R45.1 Restlessness and agitation; G50.0 Trigeminal neuralgia; G20.A1 Parkinson's disease without dyskinesia, without mention of fluctuations; I49.9 Cardiac arrhythmia, unspecified; J44.9 Chronic obstructive pulmonary disease, unspecified; I50.9 Heart failure, unspecified; I10 Essential (primary) hypertension; F32.A Depression, unspecified; F41.9 Anxiety disorder, unspecified; E11.9 Type 2 diabetes mellitus without complications; M10.9 Gout, unspecified; G89.29 Other chronic pain; Z95.0 Presence of cardiac pacemaker; Z88.0 Allergy status to penicillin; Z86.73 Personal history of transient ischemic attack (TIA), and cerebral infarction without residual deficits
CPT/HCPCS: 93005; 85025 ×2; 80048; 36415; 83735; 85610; 82947 ×8; 80076; 84484; 83690; 80053; 83880; 86140; 87804 ×2; 71045; 96375; 96372; 96374; 99284; 82077; J1200; J3360 ×4; J3010; J3486; J1170; J2405; G0378 ×5; J7030